=== PATIENT | female | born 1935 | race Caucasian/White ===

== ENCOUNTER → 2017-06-16 11:08 | Outpatient (CLI) | payer MEDICARE, BC, SELFPAY ==
[2017-06-16 12:44] LABS: Anion Gap 12.6 mEq/L (5-15); Blood Urea Nitrogen 21 mg/dL (7-18); Carbon Dioxide 29 mmol/L (21.0-32.0); Chloride 92 mmol/L (98-107); Creatinine,Serum 1.11 mg/dL (0.55-1.02); Estimated Glomerular Filt Rate 47 ml/min (>60); GFR (African American) 57 ML/MIN (>60); Glucose 98 mg/dL (74-106); Potassium 4.6 mmoL/L (3.5-5.1); Sodium 129 mmol/L (136-145)
[2017-06-16 12:58] LABS: Hemoglobin A1C 6.3 % (0.0-7.0)
[2017-06-19 06:31] LABS: Vitamin B12 663 pg/mL (232-1245)
== END ==
PROVIDERS: PCP Family Medicine; Visit Provider Internal Medicine
DX: N18.3 Chronic kidney disease, stage 3 (moderate) (principal); E11.9 Type 2 diabetes mellitus without complications
CPT/HCPCS: 36415; 80048; 82607; 83036

== ENCOUNTER → 2017-07-04 12:55 | Outpatient (CLI) | payer MEDICARE, BC, SELFPAY ==
[2017-07-04 13:29] LABS: Anion Gap 7.7 mEq/L (5-15); Blood Urea Nitrogen 23 mg/dL (7-18); Carbon Dioxide 29 mmol/L (21.0-32.0); Chloride 99 mmol/L (98-107); Creatinine,Serum 1.18 mg/dL (0.55-1.02); Estimated Glomerular Filt Rate 44 ml/min (>60); GFR (African American) 53 ML/MIN (>60); Glucose 99 mg/dL (74-106); Potassium 4.7 mmoL/L (3.5-5.1); Sodium 131 mmol/L (136-145)
== END ==
PROVIDERS: Visit Provider Internal Medicine
DX: E87.1 Hypo-osmolality and hyponatremia (principal)
CPT/HCPCS: 36415; 80048; 84443

== ENCOUNTER → 2017-07-24 08:31 | Outpatient (CLI) | payer MEDICARE, BC, SELFPAY ==
[2017-07-24 09:15] LABS: Anion Gap 11.4 mEq/L (5-15); Blood Urea Nitrogen 21 mg/dL (7-18); Carbon Dioxide 27 mmol/L (21.0-32.0); Chloride 102 mmol/L (98-107); Creatinine,Serum 1.21 mg/dL (0.55-1.02); Estimated Glomerular Filt Rate 43 ml/min (>60); GFR (African American) 52 ML/MIN (>60); Glucose 87 mg/dL (74-106); Potassium 4.4 mmoL/L (3.5-5.1); Sodium 136 mmol/L (136-145); Thyroid Stimulating Hormone 2.87 uIU/ml (0.358-3.740)
== END ==
PROVIDERS: Visit Provider Internal Medicine
DX: E87.1 Hypo-osmolality and hyponatremia (principal)
CPT/HCPCS: 36415; 80048; 84443

== ENCOUNTER → 2018-10-09 14:48 | Outpatient (CLI) | payer MEDICARE, BC, SELFPAY ==
--- NOTE | 2018-10-09 | MR_ITS ---
MR shoulder LT wo con HISTORY:Posttraumatic pain of the left shoulder, severe pain with lifting arm, limited range of motion ITS.REASON: DELTOID TENDONITIS OF LEFT SHOULDER, TRAUMA, ACUTE PAIN LT S ORDERING PHYSICIAN: Karime Martinez MD PATIENT AGE: 83 years Comparison: None TECHNIQUE: Standard multiplanar multiecho sequences are performed without contrast. FINDINGS: There are no radiographs available for comparison. There is extensive abnormal signal intensity involving the humeral head and proximal humeral shaft. Has the patient had prior surgery to the proximal humerus?. There is a curvilinear area of decreased T1 and T2 signal involving the humeral head in the subcortical region suspicious for an area of avascular necrosis. There is acromioclavicular arthropathy along with spurring along the inferior aspect of the acromion with subacromial stenosis. Full-thickness tear involving the distal aspect of the supraspinatus tendon. There may be some intact fibers anteriorly. There is diffuse edema of the supraspinatus tendon consistent with tendinopathy/tendinosis. The infraspinatus tendon appears intact as does the subscapularis and teres minor tendon. There is some subcortical edema of the glenoid anteriorly and inferiorly. No obvious labral tear. There is a medium sized shoulder joint effusion. The bicipital tendon is in place with a mild amount of fluid in the bicipital tendon sheath. There is diffuse bone marrow edema involving the head and neck of the humerus with a fairly well-circumscribed intramedullary longitudinal area of decreased T1 and increased T2 signal in the proximal humerus. Subacromial fluid is noted as well as fluid deep to the deltoid. IMPRESSION: 1. Full-thickness tear involves the distal aspect of the supraspinatus tendon. There may be a few fibers intact anteriorly. There is moderate tendinopathy/tendinosis of the supraspinatus tendon 2. Acromioclavicular arthropathy with subacromial stenosis. Subacromial and subdeltoid fluid is present along with shoulder joint effusion. 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 4. Abnormal signal intensity of the humeral head and proximal humeral shaft could be due to bone marrow contusion. Postsurgical change also a consideration. Radiographic correlation may be of further value if there is no prior history available
== END ==
PROVIDERS: PCP Emergency Medicine; Visit Provider Emergency Medicine
DX: M75.82 Other shoulder lesions, left shoulder (principal); M25.512 Pain in left shoulder; T14.90XA Injury, unspecified, initial encounter
CPT/HCPCS: 73221

== ENCOUNTER → 2018-10-21 13:52 | Outpatient (CLI) | payer MEDICARE, BC, SELFPAY ==
--- NOTE | 2018-10-21 13:58 | XR_ITS ---
XR shoulder LT min 2V HISTORY: Pain with limited range of motion ITS.REASON: left shoulder pain ORDERING PHYSICIAN: Becca Park MD PATIENT AGE: 83 years Comparison: 10/09/2018 FINDINGS: No fracture or dislocation. There are mild hypertrophic changes of the acromioclavicular joint and mild degenerative changes in the glenohumeral joint. No lytic or blastic changes. The MRI showed diffuse increased T2 signal in the humeral head and proximal humerus which may be due to posttraumatic changes or bone marrow edema. No definite lytic change and no postsurgical changes apparent. IMPRESSION: Mild degenerative changes otherwise negative
== END ==
PROVIDERS: PCP Family Medicine; Visit Provider Orthopaedic Surgery
DX: M25.512 Pain in left shoulder (principal)
CPT/HCPCS: 73030

== ENCOUNTER 2018-11-21 14:00 | Outpatient (RCR) | payer MEDICARE, BC, SELFPAY ==
--- NOTE | 2018-10-24 14:27 | HMH.PTOPEV ---
PT Outpatient Evaluation Rehab PT Outpatient Evaluation Start: 10/24/18 13:38 Freq: Status: Active Protocol: Document 10/24/18 13:38 PDESEROUX (Rec: 10/24/18 14:27 PDESEROUX [id number]) Electronically Signed By Griffin Lawson, SJ 10/24/18 13:38 Outpatient Therapy Subjective History Subjective History Pt. is a 83 year old female who presents to outpatient PT for complaints of chronic and traumatic L shoulder pain after slipping on ice and falling on her L arm 3 months ago. Pt. reports not going to the hospital after that fall, and stated symptom relief after 3 wks. Pt . then reported falling a second time 1 month ago while descending her porch stairs and also landing on her L arm in her yard. Pt. did report going to the hospital after her second fall. Recent diagnostic imaging positive for a L shoulder RC tear and lack of blood supply per pt. report. Pt. also reports her Ortho. Surgeon did now want to do surgery d/t secondary complications of diabetes. Pt. RTMD 11/25/18. PMH includes type II diabetes, R knee arthroscopic surgery, and lumbar discectomy. Pt. reported being prescribed Meloxicam for current pathology, and states it does provide symptom relief. Chief Complaint Pain,Catches/Locks Symptom Type Ache,Sharp Symptoms Relieved By Rest/Positioning,Prescription Meds Symptoms Aggravated By Physical Activity,Lifting Prior Functional Limitations None Current Functional Limitations Reaching,Lifting,Housework, Dressing,Driving,Sleeping, Recreation Activity Symptom Description Activity Dependent Level of pain today (0-10) 0 Pain scale - at its best (0-10) 0 Pain scale - at its worst (0-10) 6 Shoulder/Elbow Eval Shoulder Objective Measurements Palpation Tenderness tenderness shoulder exam standard left tenderness over the SA bursa german
== END 2018-11-21 14:05 | disposition home or self-care (01) ==
LOC: PT 14:00
PROVIDERS: Visit Provider Orthopaedic Surgery
DX: M25.512 Pain in left shoulder (principal); M75.102 Unspecified rotator cuff tear or rupture of left shoulder, not specified as traumatic
CPT/HCPCS: 97010; 97014; 97033; 97110; 97140; 97163; G0283

== ENCOUNTER → 2019-01-03 16:03 | Outpatient (CLI) | payer MEDICARE, BC, SELFPAY ==
--- NOTE | 2019-01-03 16:07 | MR_ITS ---
PROCEDURE: MR LUMBAR SPINE WO CON CLINICAL INDICATION: LEFT LUMBAR RADICULOPATHY Low back pain, left leg pain and numbness COMPARISON: No exams were available for comparison TECHNIQUE: Standard multiplanar multiecho sequences are performed without contrast. 3-D MIP and myelographic images are also rendered and reviewed FINDINGS: Normal alignment. The spinal cord ends at the L1 level. T12-L1: Mild degenerative disc disease. T12-L1: Minimal bulging disc. L1-L2: Degenerate disc disease with bulging disc with moderate facet and ligamentum hypertrophy with minimal broad-based left paracentral disc protrusion with severe left lateral recess narrowing and moderate right lateral recess narrowing. There is severe left-sided and moderate right-sided foraminal narrowing at this level. There is transverse narrowing of the canal L2-L3: Degenerate disc disease with bulging disc and minimal right paracentral disc protrusion with severe right lateral recess narrowing, severe right foraminal narrowing, moderate left lateral recess and foraminal narrowing. Transverse narrowing of the canal. There is a small right paracentral disc herniation with inferior extrusion. The extruded disc extends inferiorly for length of 1 cm. The disc is causing lateral recess narrowing and canal stenosis. The disc abuts the cauda equina on the right. The periphery of this disc shows isointense T1 and T2 signal suggesting ossification. L3-L4: Degenerative disc disease with bulging disc/disc osteophyte complex with moderate to severe facet and ligamentum hypertrophy with severe bilateral foraminal narrowing left greater than right. There is transverse narrowing of the canal. There is an the a small left paracentral disc protrusion versus disc osteophyte complex L4-5: Degenerative disc disease with bulging disc/disc osteophyte complex with severe facet and ligamentum hypertrophy with canal stenosis and severe bilateral lateral recess and foraminal narrowing. L5-S1: Degenerate disc disease. IMPRESSION: Abnormal MRI of the lumbar spine. There is multilevel degenerative disc disease with bulging disc, disc protrusions, disc herniation at L2-L3 with inferior extrusion of the disc, canal stenosis, lateral recess and foraminal narrowing includin. L1-L2: Degenerate disc disease with bulging disc with moderate facet and ligamentum hypertrophy with minimal broad-based left paracentral disc protrusion with severe left lateral recess narrowing and moderate right lateral recess narrowing. There is severe left-sided and moderate right-sided foraminal narrowing at this level. There is transverse narrowing of the canal 2. L2-L3: Degenerate disc disease with bulging disc and minimal right paracentral disc protrusion with severe right lateral recess narrowing, severe right foraminal narrowing, moderate left lateral recess and foraminal narrowing. Transverse narrowing of the canal. There is a small right paracentral disc herniation with inferior extrusion. The extruded disc extends inferiorly for length of 1 cm. The disc is causing lateral recess narrowing and canal stenosis. The disc abuts the cauda equina on the right. The periphery of this disc shows isointense T1 and T2 signal suggesting ossification. 3. L3-L4: Degenerative disc disease with bulging disc/disc osteophyte complex with moderate to severe facet and ligamentum hypertrophy with severe bilateral foraminal narrowing left greater than right. There is transverse narrowing of the canal. There is an the a small left paracentral disc protrusion versus disc osteophyte complex 4. L4-5: Degenerative disc disease with bulging disc/disc osteophyte complex with severe facet and ligamentum hypertrophy with canal stenosis and severe bilater
== END ==
PROVIDERS: PCP Emergency Medicine; Visit Provider Family Medicine
DX: M54.16 Radiculopathy, lumbar region (principal)
CPT/HCPCS: 72148; 76376

== ENCOUNTER 2019-01-16 11:00 | Outpatient (RCR) | payer MEDICARE, BC, SELFPAY ==
--- NOTE | 2019-01-07 15:07 | HMH.PTOPEV ---
PT Outpatient Evaluation Rehab PT Outpatient Evaluation Start: 01/07/19 13:05 Freq: Status: Active Protocol: Document 01/07/19 14:31 PHOASHLEY (Rec: 01/07/19 15:06 PHORNE [id number]) Electronically Signed By Zeb Piña, PT 01/07/19 14:31 Outpatient Therapy Subjective History Subjective History Pt is 83 yowf who presents with c/o pain in the low back and into the left LE to the knee distally since 12/18/18. She states, I sat on my toilet seat and it sometimes slides, when it did I got a pain in my left thigh that hasn't went away since then until today. She had MRI performed which showed multiple levels of disc bulges throughout the lumbar spine with DDD and stenosis. She reports hx of a discectomy 50 yrs ago and DM-II. Chief Complaint Pain Symptom Type Ache Symptoms Relieved By Nothing Symptoms Aggravated By Supine Prior Functional Limitations None Current Functional Limitations Sleeping Symptom Description Intermittent Level of pain today (0-10) 0 Pain scale - at its worst (0-10) 10 Lumbopelvic Eval Palapation tenderness bilateral lumbar spinal tenderness Yes Accessory Movement L-spine Vertebrae Accessory Movements Central P/A Fleischmanns that Elicit Symptoms L2 bilateral L3 bilateral L4 bilateral L5 bilateral S1 bilateral Range of Motion Lumbar Spine Active Flexion Range of 0-60 Motion (degrees) Lumbar Spine Active Extension Range of 0-10 Motion (degrees) Left Lumbar Spine Lateral Flexion Active 0-15 Range of Motion (degrees) Right Lumbar Spine Lateral Flexion 0-15 Active Range of Motion (degrees) Manual Muscle Test Bilateral Knee Extension Strength Grade 5 Normal Knee Flexion Strength Grade 5 Normal Hip Flexion Strength Grade 4 Good Hip Abduction Strength Grade 4 Good Extensor Hallucis Longus Strength Grade 5 Normal Ankle Dorsiflexion Strength Grade 5 Normal Gastronemius/Soleus Strength Grade 5 Normal DTR Rt Patellar 2+ Lt Patellar 2+ Rt Gastroc/Soleus 2+ Lt Gastroc/Soleus 2+ Special Tests Hip Scouring (Quadrant) Test Negativ
== END 2019-01-16 11:05 | disposition home or self-care (01) ==
LOC: PT 11:00
PROVIDERS: PCP Emergency Medicine; Visit Provider Family Medicine
DX: M54.16 Radiculopathy, lumbar region (principal)
CPT/HCPCS: 97010; 97014; 97035; 97110; 97163; G0283

== ENCOUNTER → 2019-03-05 11:05 | Outpatient (CLI) | payer MEDICARE, BC, SELFPAY ==
[2019-03-05 11:11] LABS: Microscopic, Urine URINE MICROSCOPIC (MICROSCOPIC)
[2019-03-05 11:39] LABS: Basophils # 0.1 K/mm3 (0-0.2); Basophils % 1.1 % (0.1-2.0); Eosinophils # 0.1 K/mm3 (0.0-0.4); Eosinophils % 1.9 % (0.1-12.0); Lymphocytes # 1.4 K/mm3 (0.7-4.5); Lymphocytes % 27.3 % (10-50); Mean Corpuscular HGB Conc 32.5 g/dL (31.8-35.4); Mean Corpuscular Hemoglobin 28.1 pg (27.0-31.2); Mean Corpuscular Volume 86.6 fl (81-99); Mean Platelet Volume 7.5 fl (7.4-10.4); Monocytes # 0.4 K/mm3 (0.1-1.0); Monocytes % 6.6 % (1.7-9.3); Neutrophils # 3.3 K/mm3 (1.8-7.8); Neutrophils % 63.1 % (37.0-80.0); Platelet Count 328 K/mm3 (142-424); Red Blood Count 3.92 M/mm3 (4.20-5.40); Red Cell Distribution Width 14.7 % (11.5-17.5); White Blood Count 5.3 K/mm3 (4.8-10.8)
[2019-03-05 12:19] LABS: Appearance,Urine CLEAR (Clear); Bilirubin,Urine Negative (Negative); Blood, Urine Negative (Negative); Color,Urine YELLOW (Yellow); Glucose,Urine (UA) Negative (Negative); Ketones,Urine Negative (Negative); Leukocyte Esterase,Urine TRACE (Negative); Nitrate,Urine Negative (Negative); Protein,Urine Negative (Negative); Urobilinogen,Urine 0.2 EU/dl (0.2)
[2019-03-05 12:26] LABS: Bacteria,Urine Trace /lpf; Squamous Epithelial Cell,Urine Occasional #/hpf (0-5); WBC,Urine Occasional #/hpf (0-3)
[2019-03-05 13:00] LABS: Alanine Aminotransferase 14 U/L (12-78); Albumin Level 3.6 gm/dL (3.4-5.0); Albumin/Globulin Ratio 1.4 (1.1-1.8); Alkaline Phosphatase 60 U/L (46-116); Anion Gap 11.6 mEq/L (5-15); Aspartate Amino Transferase 10 U/L (15-37); Bilirubin,Total 0.4 mg/dL (0.2-1.0); Blood Urea Nitrogen 21 mg/dL (7-18); Calcium 9.3 mg/dL (8.5-10.1); Carbon Dioxide 26 mmol/L (21.0-32.0); Chloride 101 mmol/L (98-107); Cholesterol 172 mg/dL (140-200); Creatinine,Serum 1.06 mg/dL (0.55-1.02); Estimated Glomerular Filt Rate 50 ml/min (>60); Free T4 (Free Thyroxine) 1.21 ng/dl (0.76-1.46); GFR (African American) 60 ML/MIN (>60); Globulin 2.5 gm/dl (1.3-3.2); Glucose 93 mg/dL (74-106); HDL Cholesterol 87 mg/dL (29-89); LDL Cholesterol 76 mg/dL (0-130); Potassium 4.6 mmoL/L (3.5-5.1); Sodium 134 mmol/L (136-145); Total Protein,Serum 6.1 gm/dL (6.4-8.2); Triglycerides 47 mg/dL (30-200); VLDL Cholesterol 9 mg/dL (0-40)
[2019-03-05 13:04] LABS: Hemoglobin A1C 6.3 % (0.0-7.0)
[2019-03-06 10:14] LABS: Microalbumin, Urine 3.9 ug/mL (Not Estab.)
[2019-03-06 10:56] LABS: Vitamin B12 818 pg/mL (232-1245)
== END ==
PROVIDERS: Visit Provider Internal Medicine
DX: E11.22 Type 2 diabetes mellitus with diabetic chronic kidney disease (principal); N18.3 Chronic kidney disease, stage 3 (moderate); E53.8 Deficiency of other specified B group vitamins; E55.9 Vitamin D deficiency, unspecified; E78.00 Pure hypercholesterolemia, unspecified
CPT/HCPCS: 36415; 80053; 80061; 81001; 82043; 82570; 82607; 82652; 83036; 84439; 84443; 85025

== ENCOUNTER → 2019-03-20 11:08 | Outpatient (CLI) | payer MEDICARE, BC, SELFPAY ==
--- NOTE | 2019-03-20 | CA_ITS ---
APPROVED REPORT Exam: Pharmacologic Technologist: stewart ugarte, Ht: 5 ft 6 in Wt: 166 lbs BSA: 1.85 m2 HR: 67 bpm BP: 163/67 mmHg Rhythm: NSR, LBBB Indications: Abn EKG< LBBB, SOB Medical History Medications: Amlodipine,,,,, Omeprazole,,,,, Metformin,,,,, Vitamin B12,,,,, Vitamin D3,,,,, MeLOXICAM,,,,, Ezetimbe,,,,, Allergies: No known drug allergies Cardiac Risk Factors: HTN, Diabetes (insulin) Stress Test Details Test: LEXISCAN HR Resting HR: 75 bpm Max Heart Rate (APMHR): 138 bpm Max HR Achieved: 101 bpm Target HR (85% APMHR): 117 bpm % of APMHR: 73 Recovery HR: 85 bpm BP Resting BP: 163/67 mmHg Max BP: 163/67 mmHg Recovery BP: 153.0/73.0 mmHg ECG Resting ECG: NSR, LBBB Clinical Reason for Termination: Completed Protocol Exercise duration: 04:06 min Highest Stage Achieved: Exercise capacity: 1.0 METs Stress ECG Conclusion Patient had no symptoms with rare PVC. There was < 1.5mm ST Segment Changes. Non-Diagnostic Test Summary REST 08:04 . . 75 . 163/ 67 . . Stage 1 01:00 . . 99 . . . . Stage 2 01:00 . . 93 . 141/ 74 . . Stage 3 01:00 . . 93 . 159/ 67 . . Stage 4 01:00 . . 86 . 157/ 73 . . Stage 4 01:06 . . 86 . 157/ 73 . Stop exercise at 04:06 RECOVERY 01:00 . . 89 . 153/ 73 . . RECOVERY 02:00 . . 85 . 152/ 71 . . RECOVERY 03:00 . . 84 . 155/ 68 . . RECOVERY 03:12 . . 81 . 155/ 68 . . Electronically signed by : Avelino Acosta, 03/20/2019 15:24:19
--- NOTE | 2019-03-20 11:15 | NM_ITS ---
APPROVED REPORT Exam: Nuclear Stress Test Indication: ABN EKG, LBBB, D.M., SOB, SYNCOPE Patient Location: Outpatient Stress Tech: Julia Woods CT Tech:Brianda Kim, ARRT RT(R)(N) Ht: 5 ft 6 in Wt: 166 lbs Bra Size: 42D HR: 75 bpm BP: 163/67 mmHg BSA: 1.85 m2 BMI: 26.7 History: ABN EKG, LBBB, D.M., SOB, SYNCOPE Procedure: Patient received a 0.4 mg of intravenous Lexiscan, resting heart rate 75 bpm, resting blood pressure 163/67 mmHg, with Lexiscan maximum heart rate achived was 101 bpm which is Less than 85 % of the maximum predicted heart rate and blood pressure was 163/67 mmHg. With Lexiscan, patient denied any complaint of chest pain. Electrocardiogram Resting electro cardia Lancing shows sinus rhythm left bundle branch block, with Lexiscan there is less than 1.[address] segment depression noted from the baseline EKG. The EKG portion of the Lexiscan Myoview is nondiagnostic. Cardiac Stress and Resting SPECT Images: Cardiac Stress and Resting SPECT images were obtained using technetium 99m Myoview 30.1 mCi stress and 9.97 mCi at rest. Gated SPECT for analysis of segmental wall motion and calculation of the ejection fraction also done. Cardiac stress and rest SPECT images show fixed defect involving the anteroseptal wall with normal contractility and the gated SPECT is likely secondary to left bundle branch block and intraventricular conduction delay. No reversible ischemia seen. Computer derived ejection fraction is 65% with no regional wall motion abnormality, right ventricle is normal size and contractility. Conclusion: 1. The EKG portion of the Lexiscan Myoview is nondiagnostic 2. No scintigraphic evidence of reversible ischemia seen, fixed defect seen anteroseptally with normal contractility on gated SPECT is likely secondary to presence of left bundle branch block and intraventricular conduction delay. Computer derived ejection fraction is 65% with no regional wall motion abnormality, there is abnormal septal motion. Right ventricle is normal size and contractility. 3. Likely normal Lexiscan Myoview study. Electronically signed by : Avelino Acosta, 03/20/2019 15:23:54
--- NOTE | 2019-03-20 14:15 | HMH.ITSHM ---
Current Home Medications as stated by this patient Tasneem Perales or self pay representative. [] piolitazone metformin amlodipine ezetimibe omeprazole
== END ==
PROVIDERS: PCP Family Medicine; Visit Provider Internal Medicine
DX: R94.31 Abnormal electrocardiogram [ECG] [EKG] (principal); I44.7 Left bundle-branch block, unspecified
CPT/HCPCS: 78452; 93017; A9502; J2785

== ENCOUNTER → 2023-02-15 17:00 | Outpatient (CLI) | payer MEDICARE, BC, SELFPAY ==
--- NOTE | 2023-02-15 17:08 | XR_ITS ---
PROCEDURE INFORMATION: Exam: XR Left Hip Exam date and time: 02/15/2023 5:12 PM Age: 87 years old Clinical indication: Hip pain; Left hip; Additional info: Injury of left hip TECHNIQUE: Imaging protocol: Radiologic exam of the left hip. Views: 2 or 3 views hip with pelvis when performed. COMPARISON: MR LUMBAR SPINE WO CON 01/03/2019 4:36 PM FINDINGS: Bones/joints: No evidence of acute fracture or malalignment. Hypertrophic degenerative changes in joint space narrowing in the left. Pubic symphysis and bilateral sacroiliac joints are congruent. Limited visualization of the sacrum due to poorly mineralized bones and body habitus. Soft tissues: Unremarkable. IMPRESSION: 1. No evidence of acute osseous abnormality in the left hip. 2. Left hip degenerative osteoarthrosis.
--- NOTE | 2023-02-15 17:10 | XR_ITS ---
PROCEDURE INFORMATION: Exam: XR Left Femur Exam date and time: 02/15/2023 5:12 PM Age: 87 years old Clinical indication: Pain; Thigh; Left; Additional info: Injury to left hip and femur TECHNIQUE: Imaging protocol: Radiologic exam of the left femur. Views: 2 views. COMPARISON: No relevant prior studies available. FINDINGS: Bones/joints: No evidence of acute fracture or malalignment. Soft tissues: Unremarkable. IMPRESSION: No evidence of acute osseous abnormality in the left femur.
== END ==
PROVIDERS: PCP Family Medicine; Visit Provider Physician Assistant
DX: S79.912A Unspecified injury of left hip, initial encounter (principal); Y99.9 Unspecified external cause status
CPT/HCPCS: 73502; 73552

== ENCOUNTER → 2023-03-08 14:24 | Outpatient (CLI) | payer MEDICARE, BC, SELFPAY ==
--- NOTE | 2023-03-08 14:27 | CT_ITS ---
FINAL REPORT CLINICAL HISTORY: LT HIP PAIN, recent fall FINDINGS: Axial CT images of the left hip were obtained without contrast. Sagittal, coronal and 3D reformatted images were also obtained and reviewed. There is no evidence of acute fracture or dislocation. Severe degenerative changes are noted of the left hip. The musculature is intact. No soft tissue mass or abnormal fluid collection is identified. IMPRESSION: No fracture or acute bony abnormality identified. Severe degenerative changes. Authenticated and [facility]
== END ==
PROVIDERS: PCP Family Medicine; Visit Provider Family Medicine
DX: M25.552 Pain in left hip (principal)
CPT/HCPCS: 73700

== ENCOUNTER 2023-03-27 15:00 | Outpatient (RCR) | payer MEDICARE, BC, SELFPAY | END 2023-03-27 16:00 | disposition home or self-care (01) | LOC: PT 15:00 | PROVIDERS: PCP Family Medicine; Visit Provider Internal Medicine | DX: M25.552 Pain in left hip (principal); M54.50 Low back pain, unspecified | CPT/HCPCS: 95992; 97010; 97014; 97035; 97110; 97163; G0283 ==

== ENCOUNTER → 2023-04-02 09:17 | Outpatient (CLI) | payer MEDICARE, BC, SELFPAY ==
--- NOTE | 2023-04-02 09:25 | MR_ITS ---
FINAL REPORT TECHNIQUE: Multiplanar MR without gadolinium enhancement CLINICAL HISTORY: .LOW BACK PAIN INTO LEFT LEG, RECENT FALL COMPARISON: None FINDINGS: Sagittal images show normal vertebral height. Alignment is normal. Marrow signal pattern is unremarkable. L1-2: A moderate annular bulge is present. Ligamentum flavum hypertrophy is present as well, and there is moderate canal stenosis and bilateral neural foraminal narrowing. L2-3: A moderate annular bulge is present, along with a moderate central disc protrusion with inferior extension. There is moderate canal stenosis and moderate bilateral neuroforaminal narrowing. L3-4: A moderate annular bulge is present, with facet osteoarthropathy. There is moderate canal stenosis and moderate bilateral neural foraminal narrowing. L4-5: A large annular bulge is present, with facet osteoarthropathy and ligamentum flavum hypertrophy. There is severe canal stenosis and severe bilateral neural foraminal narrowing. L5-S1: No evidence of canal stenosis or neuroforaminal narrowing is present. IMPRESSION: There is advanced to multifocal degenerative change in the lumbar spine, with canal stenosis and neuroforaminal narrowing at multiple levels, most severe at the L4-5 level. Reviewed, Interpreted and Dictated by Amarilis Gordon MD Transcribed by Barb Crespo Authenticated and [facility]
== END ==
PROVIDERS: PCP Family Medicine; Visit Provider Internal Medicine
DX: M54.50 Low back pain, unspecified (principal); M25.552 Pain in left hip
CPT/HCPCS: 72148; 76376

== ENCOUNTER 2023-05-25 14:19 | Outpatient (CLI) | payer MEDICARE, BC, SELFPAY ==
--- NOTE | 2023-05-25 14:25 | MR_ITS ---
FINAL REPORT CLINICAL HISTORY: LEFT HIP PAIN COMPARISON: CT of the left hip 03/08/2023 FINDINGS: Multiplanar MR imaging of the left hip was performed without contrast. There is severe degenerative change in the left hip, which has markedly progressed since the prior CT of 03/08/2023. There is interval worsening and remodeling of the acetabulum and flattening of the femoral head. Bone marrow edema is present in the left acetabulum and the left femoral head and neck. A moderate joint effusion is present as well as marked abnormal soft tissue surrounding the femoral head and neck. IMPRESSION: Severe degenerative change in the left hip, markedly progressed since January 2023. There is marked interval worsening and remodeling of the acetabulum and severe flattening of the femoral head. Associated bone marrow edema is present along with a moderate joint effusion and marked abnormal soft tissue surrounding the femoral head and neck. This likely represents either severe rapidly progressive degenerative change or a septic arthritis. Reviewed, Interpreted and Dictated by Isidro Crawford III, MD Transcribed by Barb Crespo Authenticated and [facility]
== END 2023-05-25 23:59 ==
LOC: RAD 14:19
PROVIDERS: PCP Family Medicine; Visit Provider Neurological Surgery
DX: M25.552 Pain in left hip (principal); M48.062 Spinal stenosis, lumbar region with neurogenic claudication; M79.605 Pain in left leg
CPT/HCPCS: 73721

== ENCOUNTER 2023-06-06 12:29 | Outpatient (CLI) | payer MEDICARE, BC, SELFPAY ==
[2023-06-06 12:50] LABS: Microscopic, Urine URINE MICROSCOPIC (MICROSCOPIC)
[2023-06-06 13:17] LABS: Basophils # 0.1 K/mm3 (0-0.2); Basophils % 0.6 % (0.1-2.0); Eosinophils % 0.4 % (0.1-12.0); Hematocrit 35.5 % (37.0-47.0); Hemoglobin 11.7 g/dL (12.2-16.2); Lymphocytes # 1.1 K/mm3 (0.7-4.5); Lymphocytes % 12.8 % (10-50); Mean Corpuscular HGB Conc 33.1 g/dL (31.8-35.4); Mean Corpuscular Hemoglobin 28.3 pg (27.0-31.2); Mean Corpuscular Volume 85.6 fl (81-99); Mean Platelet Volume 7.1 fl (7.4-10.4); Monocytes # 0.6 K/mm3 (0.1-1.0); Monocytes % 7.1 % (1.7-9.3); Neutrophils # 6.8 K/mm3 (1.8-7.8); Neutrophils % 79.1 % (37.0-80.0); Platelet Count 400 K/mm3 (142-424); Red Blood Count 4.15 M/mm3 (4.20-5.40); Red Cell Distribution Width 15.1 % (11.5-17.5); White Blood Count 8.6 K/mm3 (4.8-10.8)
[2023-06-06 13:26] LABS: Appearance,Urine CLEAR (Clear); Bilirubin,Urine Negative (Negative); Blood, Urine Negative (Negative); Color,Urine YELLOW (Yellow); Glucose,Urine (UA) Negative (Negative); Ketones,Urine Negative (Negative); Leukocyte Esterase,Urine Negative (Negative); Nitrate,Urine Negative (Negative); Protein,Urine Negative (Negative); Specific Gravity, Urine 1.015 (1.005-1.030); Urobilinogen,Urine 0.2 EU/dl (0.2)
[2023-06-06 13:34] LABS: Creatinine,Urine Random 93 mg/dL (Not Estab.)
[2023-06-06 13:39] LABS: Microalbumin/Creatinine Ratio 9.6
[2023-06-06 13:45] LABS: Alanine Aminotransferase 15 U/L (12-78); Albumin/Globulin Ratio 1.7 (1.1-1.8); Alkaline Phosphatase 116 U/L (38-126); Anion Gap 10.9 mEq/L (5-15); Aspartate Amino Transferase 23 U/L (14-36); Bilirubin,Total 0.6 mg/dl (0.2-1.3); Blood Urea Nitrogen 20 mg/dl (7-17); Calcium 9.6 mg/dl (8.4-10.2); Carbon Dioxide 27 mmol/L (22.0-30.0); Chloride 95 mmol/L (98-107); Cholesterol 163 mg/dl (140-200); Estimated Glomerular Filt Rate 59 ml/min (>60); GFR (African American) 72 ML/MIN (>60); Globulin 2.4 g/dL (1.3-3.2); Glucose 96 mg/dl (74-100); HDL Cholesterol 81 mg/dl (40-60); Potassium 4.9 mmoL/L (3.5-5.1); Sodium 128 mmol/L (136-145); Total Protein,Serum 6.4 g/dl (6.3-8.2); Triglycerides 47 mg/dl (30-150); VLDL Cholesterol 9 mg/dL (0-40)
[2023-06-06 13:55] LABS: Direct LDL Cholesterol 65.28 mg/dL (100-129)
[2023-06-06 14:02] LABS: 25-OH Vitamin D, Total 57.7 ng/mL (30-100)
[2023-06-06 14:04] LABS: Bacteria,Urine Trace /lpf
[2023-06-06 14:31] LABS: Hemoglobin A1C 5.9 % (4.0-6.0)
[2023-06-06 14:36] LABS: Vitamin B12 478 pg/mL (239-931)
== END 2023-06-06 23:59 ==
LOC: LAB 12:31
PROVIDERS: PCP Internal Medicine; Visit Provider Internal Medicine
DX: E78.00 Pure hypercholesterolemia, unspecified (principal); E55.9 Vitamin D deficiency, unspecified; E11.22 Type 2 diabetes mellitus with diabetic chronic kidney disease; N18.32 Chronic kidney disease, stage 3b; E53.8 Deficiency of other specified B group vitamins; M81.0 Age-related osteoporosis without current pathological fracture
CPT/HCPCS: 36415; 80053; 80061; 81001; 82043; 82306; 82570; 82607; 83036; 84443; 85025

== ENCOUNTER 2023-06-16 12:16 | Observation (INO) | payer MEDICARE, BC, SELFPAY ==
[2023-06-16] VITALS (8 sets, daily range): BP systolic 117–157; BP diastolic 57–74; PULSE 68–83; RESP 16–19; TEMP 36.3–36.9; O2SAT 97–100; BMI 20.2; BMI 21.3
--- NOTE | 2023-06-16 13:09 | PC.NURSE ---
Dr. mary at bs for pt eval
--- NOTE | 2023-06-16 13:17 | PC.NURSE ---
er at bedside
--- NOTE | 2023-06-16 13:23 | CT_ITS ---
PROCEDURE INFORMATION: Exam: CT Pelvis With Contrast; Skeletal Exam date and time: 06/16/2023 1:59 PM Age: 88 years old Clinical indication: Swelling or effusion of joint; Left; Additional info: Left hip fluid collection, septic joint? TECHNIQUE: Imaging protocol: Computed tomography of the pelvis with contrast. Exam focused on the skeleton. Radiation optimization: All CT scans at this facility use at least one of these dose optimization techniques: automated exposure control; mA and/or kV adjustment per patient size (includes targeted exams where dose is matched to clinical indication); or iterative reconstruction. Contrast material: ISOVUE; Contrast volume: 75 ml; Contrast route: IV; COMPARISON: CR XR HIP LT 2-3V W/PELVIS 02/15/2023 5:12 PM FINDINGS: Vasculature: Aortoiliac atherosclerosis. Bones/joints: No acute fracture. Severe left femoroacetabular degenerative joint disease, with osteophytes, degenerative cystic changes, flattening of the left femoral head, and an associated large left hip joint effusion. Consider hip joint aspiration if there is a concern for septic joint. Moderate to severe right femoroacetabular degenerative joint disease. No right hip joint effusion. Moderate bilateral sacroiliac degenerative joint disease. Moderate to severe degenerative changes of the lumbosacral spine. Soft tissues: Unremarkable. IMPRESSION: No acute fracture. Severe left femoroacetabular degenerative joint disease, with osteophytes, degenerative cystic changes, flattening of the left femoral head, and an associated large left hip joint effusion. Consider hip joint aspiration if there is a concern for septic joint.
--- NOTE | 2023-06-16 13:25 | HMH.EDGENADL ---
Discharge Plan Disposition Patient Disposition: Admitted Prescriptions Prescriptions: No Action pioglitazone-metformin 15-1,000 mg tablet, ER multiphase 24 hr 1 tab PO DAILY amlodipine-atorvastatin 5-40 mg tablet 1 tab PO DAILY ezetimibe 10 mg tablet 10 mg PO DAILY meloxicam 15 mg tablet 15 mg PO DAILY ranitidine HCl 300 mg capsule 300 mg PO DAILY glucosamine-chondroitin [Osteo Bi-Flex] 250-200 mg tablet 2 tab PO QPC meclizine 25 mg tablet 25 mg PO BID PRN (Reason: dizziness) Qty: 60 0RF Referrals Follow up/Referrals: Betsy YEE [Primary Care Provider] - See instructions Clinical Impressions Clinical Impression: Effusion of hip joint, left, Arthritis, hip, Acute hyponatremia Instructions Patient Instructions: DI for Altered Mental Status Discharge ED Provider: Edwin Patino General Adult HPI General Chief complaint: Altered Mental Status Stated complaint: hallucinations, pain in L leg Time Seen by Provider: 06/16/23 13:08 Mode of Arrival: Ambulatory Source of Information: Patient Limitations: No Limitations Description of Symptoms (Recalled from ER Triage Doc. by RN): pt states she fell 01/23/23 and hurt her L hip, she has had 2 MRI, xrays, CT, and 2 steroid shots since the fall, she has started having increased confusion off and on since receivinng the first steroid injection mid May, the 2nd steroid injection was given 2 weeks ago, family reports the pt sleeping more, also reports confusion is worst in the morning and best in the evening, pt states she occasionally sees aliens running around in her backyard, last seen a few days ago History of Present Illness HPI narrative: Patient is an 88-year-old female present today with severe left hip pain states that she has had an injury on January 23 where she hurt her left hip has had numerous MRIs and CAT scans and no definitive diagnosis remainder but she is gotten to the point where she cannot move that she is in severe pain. Denies any fevers or chills. Recently had an MRI which showed an inflammatory change in the bone marrow as well as an effusion in that left hip concerning for possible severe degenerative disease versus septic joint. She is here with worsening of her symptoms today. Additionally has had a little bit of delirium associated with recent steroid injections. Currently she is not experiencing any of those symptoms. Related Data Home Medications Medication Instructions Recorded Confirmed amlodipine 5 mg-atorvastatin 40 mg 1 tab PO DAILY 10/21/18 05/10/20 tablet ezetimibe 10 mg tablet 10 mg PO DAILY 10/21/18 05/10/20 glucosamine-chondroitin 250 mg-200 2 tab PO QPC 10/21/18 05/10/20 mg tablet (Osteo Bi-Flex) meloxicam 15 mg tablet 15 mg PO DAILY 10/21/18 05/10/20 pioglitazone 15 mg-metformin ER 1 tab PO DAILY 10/21/18 05/10/20 1,000 mg tablet,extend release 24hr mp ranitidine HCl 300 mg capsule 300 mg PO DAILY 10/21/18 05/10/20 Previous Rx's Medication Instructions Recorded meclizine 25 mg tablet 25 mg PO BID PRN dizziness #60 tabs 05/10/20 Allergies Allergy/AdvReac Type Severity Reaction Status Date / Time No Known Allergies Allergy Verified 05/10/20 14:43 [facility] Disclaimer: The information contained in this section may have been updated after the patient was seen, as this information can be updated by other users. Social History Smoking Status: Never smoker alcohol intake: never substance use type: denies use current occupational status: previously employed and retired Travel in the last 8 weeks: None household members: other housing: house ROS Obtained: Yes All systems reviewed & no additional complaints except as documented Physical Exam General General appearance: alert Respiratory Respiratory exam: Present normal lung sounds bilaterally Cardiovascular Cardiovascular exam: Present regular rate Extremities Exam Extremities exam: Present other (Severe left hip pain with any type of movement flexion extension internal and external rotation no overlying skin abnormality) Neurological Exam Neurological exam: Present alert and oriented X3 Medical Decision Making Adama Inquiry Pt receiving controlled substance: No Vital Signs: 06/16/23 12:18 Temperature 97.6 F Temperature Source Oral Pulse Rate [Left Radial] 83 Respiratory Rate 18 Blood Pressure [Right Arm] 151/71 H Blood Pressure Mean [Right Arm] 97 Blood Pressure Source [Right Arm] Automatic Cuff Blood Pressure Position [Right Arm] Sitting 02 Sat by Pulse Oximetry 98 Oxygen Delivery Method Room Air Lab Data Lab results reviewed: Yes I reviewed the patient's lab results. Lab Results 06/16/23 13:00: WBC 6.8, RBC 3.95 L, Hgb 11.2 L, Hct 32.7 L, MCV 82.9, MCH 28.4, MCHC 34.2, RDW 15.1, Plt Count 475 H, MPV 8.2, Neut % (Auto) 77.5, Lymph % (Auto) 14.0, Burnett % (Auto) 7.6, Eos % (Auto) 0.7, Baso % (Auto) 0.2, Neut # (Auto) 5.3, Lymph # (Auto) 1.0, Burnett # (Auto) 0.5, Eos # (Auto) 0.1, Baso # (Auto) 0.0, ESR 20, Sodium 123 L, Potassium 5.8 H, Chloride 93 L, Carbon Dioxide 26, Anion Gap 9.8, BUN 19 H, Creatinine 0.80, Estimated Creat Clear 38, Estimated GFR 68, Est GFR ( Amer) 82, Glucose 152 H, Calcium 8.8, Total Bilirubin 0.9, AST 40 H, ALT 20, Alkaline Phosphatase 70, C-Reactive Protein 7.8 H, Total Protein 6.4, Albumin 3.7, Globulin 2.7, Albumin/Globulin Ratio 1.4 06/16/23 13:50: Lactate 0.9 06/16/23 13:00 06/16/23 13:00 Orders (Tests/Meds): ED MEDICATIONS Generic Name Dose Route Start Last Admin Trade Name Freq PRN Reason Stop Dose Admin Hydrocodone Bitart/Acetaminophen 1 tab 06/16/23 14:52 Hydrocodone/Apap 5/325 Mg Tablet PO 07/16/23 14:51 Q4HP PRN Mild to Moderate Pain (1-6) Heparin Sodium (Porcine) 5,000 unit 06/16/23 21:00 Heparin Sodium 5,000 Unit/Ml Vial SQ 07/16/23 20:59 BID SREEDHAR Discontinued Medications Generic Name Dose Route Start Last Admin Trade Name Freq PRN Reason Stop Dose Admin Lactated Ringer's 500 mls @ 999 mls/hr 06/16/23 13:15 06/16/23 13:31 Lactated Ringer's 1000 Ml Bag IV 06/16/23 13:45 999 mls/hr .Q31M SREEDHAR Administration Iopamidol 75 ml 06/16/23 14:01 06/16/23 14:06 Iopamidol-370 (76%);100ml Bottle IV 06/16/23 14:02 75 ml ONCE ONE Administration Morphine Sulfate 2 mg 06/16/23 13:14 06/16/23 13:30 Morphine 4mg/Ml Syringe IV 06/16/23 13:15 2 mg ONCE ONE Administration Ondansetron HCl 4 mg 06/16/23 13:14 06/16/23 13:30 Ondansetron 4mg/2ml Vial IV 06/16/23 13:15 4 mg ONCE ONE Administration Sodium Chloride 10 ml 06/16/23 14:01 06/16/23 14:06 Sodium Chloride 0.9% 10ml Syr (Rad Only) IV 06/16/23 14:02 10 ml ONCE ONE Administration ORDERS Category Date Time Status CT pelvis w con Stat Cat Scan 06/16/23 13:23 Completed POCUS Point of Care (ER Only) Stat Exams 06/16/23 13:14 Completed CBC w/Auto Diff [Complete Blood Count Auto Diff] Stat Lab 06/16/23 13:00 Completed CMP [Comprehensive Metabolic Panel] Stat Lab 06/16/23 13:00 Completed CRP [C-Reactive Protein] AMLAB Lab 06/17/23 06:00 Ordered CRP [C-Reactive Protein] Stat Lab 06/16/23 13:00 Completed Complete Blood Count Auto Diff AMLAB Lab 06/17/23 06:00 Ordered Comprehensive Metabolic Panel AMLAB Lab 06/17/23 06:00 Ordered ESR [Erythrocyte Sedimentation Rate] Stat Lab 06/16/23 13:00 Completed Lactic Acid Stat Lab 06/16/23 13:50 Completed Magnesium AMLAB Lab 06/17/23 06:00 Ordered Blood Culture Stat Micro 06/16/23 13:52 Received Medical Decision Narrative: 88-year-old female presents today with severe worsening of hip pain which has been relatively chronic. Recent MRI showing significant inflammatory changes in the hip as well as a moderate-sized effusion in the left hip. Will get inflammatory markers blood cultures and evaluate further for possible and factious etiology such as septic joint. I did a limited bedside ultrasound which shows a hip effusion but appears to be hyperechoic and heterogenous suggesting that may be difficult to aspirate. Will get a CT scan of the pelvis with contrast to further evaluate this as it has been several weeks since she has had her MRI. And then I will discuss the case with our orthopedic surgeon. Reassessment at 3:[address] scan performed which I first interpreted also with the radiology read which shows chronic degenerative changes and a large joint effusion. Inflammatory markers not significantly elevated CRP is only 7 ESR is within normal limits. As discussed the case with Dr. Mckeon and we both agree that at this point with the septic arthritis inflammatory markers would be very elevated. Lastly patient's daughter showed up and gave additional information the patient apparently has a referral out to Dr. Bustillos who is a orthopedic oncologist to [facility] and they requested to be transferred. However there is no emergent indication for surgery. Her primary means for being admitted are lack of ability to walk pain control and hyponatremia. My knowledge she does not have a primary malignancy but certainly with hyponatremia that this could be metastatic disease and that is a possibility. Family is aware of this I spoke with Dr. Mckeon and Dr. Shepherd about this whole situation there but he agrees the patient needs to be admitted here for pain control correction of hyponatremia and hopefully outpatient follow-up with Dr. Fernandez or rehab and placement. Family is agreeable to this plan was admitted in stable condition. Procedures Miscellaneous Procedure Procedure Performed: Limited soft tissue ultrasound Indication: Left hip pain Identified structures: Location: Left hip Findings: Several centimeters hip effusion noted on the left hip out of proportion to the right Impression: Left hip effusion heterogenous and not anechoic which is nonspecific Images were saved to permanent archive The study was technically adequate Soft Tissue CPT Codes: CPT Pelvic Wall: [id number] This study was performed by me, and I personally interpreted all images/videos. Based on my clinical judgement, these images were adequate and did necessitate further imaging. Critical Care Critical Care Time Critical Care Time: No
[2023-06-16 13:26] LABS: Basophils % 0.2 % (0.1-2.0); Eosinophils # 0.1 K/mm3 (0.0-0.4); Eosinophils % 0.7 % (0.1-12.0); Hematocrit 32.7 % (37.0-47.0); Hemoglobin 11.2 g/dL (12.2-16.2); Mean Corpuscular HGB Conc 34.2 g/dL (31.8-35.4); Mean Corpuscular Hemoglobin 28.4 pg (27.0-31.2); Mean Corpuscular Volume 82.9 fl (81-99); Mean Platelet Volume 8.2 fl (7.4-10.4); Monocytes # 0.5 K/mm3 (0.1-1.0); Monocytes % 7.6 % (1.7-9.3); Neutrophils # 5.3 K/mm3 (1.8-7.8); Neutrophils % 77.5 % (37.0-80.0); Platelet Count 475 K/mm3 (142-424); Red Blood Count 3.95 M/mm3 (4.20-5.40); Red Cell Distribution Width 15.1 % (11.5-17.5); White Blood Count 6.8 K/mm3 (4.8-10.8)
[2023-06-16 13:27] LABS: Chloride 93 mmol/L (98-107); Potassium 5.8 mmoL/L (3.5-5.1); Sodium 123 mmol/L (136-145)
[2023-06-16 13:29] LABS: Alanine Aminotransferase 20 U/L (12-78); Aspartate Amino Transferase 40 U/L (14-36); Blood Urea Nitrogen 19 mg/dl (7-17); Creatinine Clearance Estimated 38 mL/min (50-200); Estimated Glomerular Filt Rate 68 ml/min (>60); GFR (African American) 82 ML/MIN (>60)
[2023-06-16 13:30] LABS: Albumin Level 3.7 g/dl (3.5-5.0); Albumin/Globulin Ratio 1.4 (1.1-1.8); Alkaline Phosphatase 70 U/L (38-126); Anion Gap 9.8 mEq/L (5-15); Bilirubin,Total 0.9 mg/dl (0.2-1.3); Calcium 8.8 mg/dl (8.4-10.2); Carbon Dioxide 26 mmol/L (22.0-30.0); Globulin 2.7 g/dL (1.3-3.2); Glucose 152 mg/dl (74-100); Total Protein,Serum 6.4 g/dl (6.3-8.2)
[2023-06-16] MEDS: MORPHINE 4MG/ML SYRINGE 2 MG IV (13:30)
[2023-06-16] MEDS: ONDANSETRON 4MG/2ML VIAL 4 MG IV (13:30)
[2023-06-16] MEDS: LACTATED RINGERS 1000ML 500 ML 999 ML IV (13:31)
[2023-06-16 13:35] LABS: C-Reactive Protein 7.8 mg/L (0-4)
--- NOTE | 2023-06-16 13:37 | PC.NURSE ---
lab at bedside to collect blood cultures
--- NOTE | 2023-06-16 13:37 | PC.NURSE ---
provided pt with a warm blanket and pillow
[2023-06-16] MEDS: IOPAMIDOL-370 (76%);100ML BOTTLE 75 ML IV (14:06)
[2023-06-16] MEDS: SODIUM CHLORIDE 0.9% 10ML SYR (RAD ONLY) 10 ML IV (14:06)
[2023-06-16 14:07] LABS: Lactic Acid 0.9 mmol/L (0.7-2.1)
[2023-06-16 14:24] LABS: Erythrocyte Sedimentation Rate 20 mm/hr (0-30)
--- NOTE | 2023-06-16 14:50 | PC.NURSE ---
dr mary speaking with dr moore at this time
--- NOTE | 2023-06-16 14:52 | PC.NURSE ---
house aware of admission.
--- NOTE | 2023-06-16 14:55 | PC.NURSE ---
DR GUO AT BEDSIDE TO UPDATE PT
--- NOTE | 2023-06-16 15:01 | EXP.HP ---
History of Present Illness *Admission Date: 06/16/23 *Reason for visit:: hip pain, confusion *History of present illness: 88-year-old female with history of hypertension, hyperlipidemia, diabetes. Has been having progressive pain in her left hip since January. Gives protracted history of referrals for multiple images, pain treatment for injections, and mixed opinions about her hip pain being related to infection versus arthritis versus tumor. Has yet to get much relief from the pain and has been having more confusion over the past few weeks after steroid injections most acutely this morning. Son expressed concern to his sister that mom was talking out of her head about fictitious events and objects. Came to the ER for further evaluation. Daughter who is with her at bedside reports the patient has been sleeping more, has had some increased confusion, not seeing good relief from previous modalities to address pain and hip. Most recent steroid injection approximately 2 weeks ago. Workup in the ER including CAT scan of hip showed concern for severe arthritis with effusion. Inflammatory markers relatively unremarkable, marginally elevated. Noted to have hyponatremia of 123. Case discussed with orthopedics, recommended admission for treatment of her hyponatremia and evaluation for further management of hip pain. No emergent need for surgery. Medicine consulted for admission and further management. On evaluation, patient continues to complain of left hip pain. Alert and oriented to self and place. Reports pain progresses to the point she has a hard time moving. Denies fever or chest pain. No shortness of breath. No nausea or vomiting. Has had a decreased appetite over the past several months due to pain and is therefore lost a little over 20 pounds. Stable on room air [facility] Disclaimer: The information contained in this section may have been updated after the patient was seen, as this information can be updated by other users. Medical History (Updated 06/16/23 @ 20:59 by Maycol Shepherd MD) DM type 2 (diabetes mellitus, type 2) High cholesterol Hypertension Family History No significant family history Social History Smoking Status: Never smoker alcohol intake: never substance use type: denies use current occupational status: previously employed and retired Travel in the last 8 weeks: None household members: other housing: house Review of Systems Review of Systems Review of systems (narrative): 14 point review of systems performed, pertinent positives and negatives as per [facility] Meds Home Medications and Allergies Home Medications Medication Instructions Recorded Confirmed Type amlodipine 5 mg-atorvastatin 40 mg 1 tab PO DAILY 10/21/18 06/16/23 History tablet ezetimibe 10 mg tablet 10 mg PO DAILY 10/21/18 06/16/23 History glucosamine-chondroitin 250 mg-200 2 tab PO QPC 10/21/18 06/16/23 History mg tablet (Osteo Bi-Flex) meloxicam 15 mg tablet 15 mg PO DAILY 10/21/18 06/16/23 History pioglitazone 15 mg-metformin ER 1 tab PO DAILY 10/21/18 06/16/23 History 1,000 mg tablet,extend release 24hr mp ranitidine HCl 300 mg capsule 300 mg PO DAILY 10/21/18 06/16/23 History meclizine 25 mg tablet 25 mg PO BID PRN dizziness #60 tabs 05/10/20 06/16/23 Rx New Prescriptions to Start Prescriptions: Allergies Allergy/AdvReac Type Severity Reaction Status Date / Time No Known Allergies Allergy Verified 05/10/20 14:43 Exam Data for Last 24 hours Vital signs and Labs for Last 24 Hours: Temp Pulse Resp BP Pulse Ox O2 Del Method 97.6 F 83 18 151/71 H 98 Room Air 06/16/23 12:18 06/16/23 12:18 06/16/23 12:18 06/16/23 12:18 06/16/23 12:18 06/16/23 12:18 Laboratory Results - last 24 hr 06/16/23 13:00: WBC 6.8, RBC 3.95 L, Hgb 11.2 L, Hct 32.7 L, MCV 82.9, MCH 28.4, MCHC 34.2, RDW 15.1, Plt Count 475 H, MPV 8.2, Neut % (Auto) 77.5, Lymph % (Auto) 14.0, Osborne % (Auto) 7.6, Eos % (Auto) 0.7, Baso % (Auto) 0.2, Neut # (Auto) 5.3, Lymph # (Auto) 1.0, Osborne # (Auto) 0.5, Eos # (Auto) 0.1, Baso # (Auto) 0.0, ESR 20, Sodium 123 L, Potassium 5.8 H, Chloride 93 L, Carbon Dioxide 26, Anion Gap 9.8, BUN 19 H, Creatinine 0.80, Estimated Creat Clear 38, Estimated GFR 68, Est GFR ( Amer) 82, Glucose 152 H, Calcium 8.8, Total Bilirubin 0.9, AST 40 H, ALT 20, Alkaline Phosphatase 70, C-Reactive Protein 7.8 H, Total Protein 6.4, Albumin 3.7, Globulin 2.7, Albumin/Globulin Ratio 1.4 06/16/23 13:50: Lactate 0.9 I & O for Last 24 hours: Intake & Output 06/13/23 06/14/23 06/15/23 06/16/23 23:59 23:59 23:59 23:59 Weight 60.328 kg Constitutional Constitutional: no acute distress, average body habitus, chronically ill appearing and cooperative *Routine HEENT Exam Head: Present normocephalic Eye: Present EOMI and PERRL ENT: Present mucous membranes moist *Routine Neck Exam Neck: Present supple; Absent lymphadenopathy *Routine Respiratory Exam Respiratory: Present CTA bilaterally; Absent rhonchi, wheezes or crackles *Routine Cardiovascular Exam Cardiovascular: Present RRR *Routine Abdominal Exam Abdominal: Present soft and normoactive bowel sounds; Absent tenderness *Routine Rectal Exam Rectal:: deferred *Routine Genitalia Exam Genitalia:: deferred *Routine Extremities Exam Extremities: Absent cyanosis, clubbing or edema Comments: left hip TTP laterally and along inguinal crease *Routine Skin Exam Skin: Present warm; Absent rash *Routine Neurological Exam Neurological: Present alert and moving all extremities; Absent altered mental status Comments: Oriented to self, place, situation. Has been having waning mentation in the mornings, poor historian during interview, difficulty with time, defaults to daughter to help with giving history Assessment and Plan *Assessment and plan (1) Acute hyponatremia: Status: Acute Category: Medical Code(s): E87.1 - Hypo-osmolality and hyponatremia (2) Arthritis, hip: Status: Acute Category: Medical Code(s): M16.10 - Unilateral primary osteoarthritis, unspecified hip (3) Effusion of hip joint, left: Status: Acute Category: Medical Code(s): M25.452 - Effusion, left hip (4) Hypertension: Status: Acute Category: Medical Code(s): I10 - Essential (primary) hypertension (5) DM type 2 (diabetes mellitus, type 2): Status: Acute Category: Medical Code(s): E11.9 - Type 2 diabetes mellitus without complications Plan 88-year-old female with progressive left hip pain. Presented with some mild confusion. Found to have hyponatremia. Discussed case with ER, request admission for treatment of hyponatremia, evaluation by orthopedics, and pain management. Medicine agreed to admit for further management. Problems addressed as follows: Symptomatic hyponatremia -Sodium 123, low below normal baseline. Repeat CBC, CMP, magnesium ordered for the morning -Status post normal saline in the ER. Correction rate less than 8 mEq a day - Mild confusion and hallucinations per report. Monitor for improvement with treatment of hyponatremia. 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 Will discuss outpatient eval for hip replacement -Low suspicion for infectious arthritis. White cell count normal. Inflammatory markers nonactionable. Repeat CRP ordered for the morning -Imaging personally reviewed, small effusion, significant degenerative changes. -Hydrocodone 5 mg as needed every 4 hours for pain -Continue home meloxicam 15 mg daily Diabetes: Fingersticks ACHS with sliding scale insulin ACHS. A1c 6.0, well controlled Hypertension: Continue amlodipine 5 mg, Lipitor 40 mg Full code Diabetic diet Heparin subcu
--- NOTE | 2023-06-16 15:45 | PC.NURSE ---
Pt admitted to room 206 to hospitalist with hyponatremia and inability to walk, obs
--- NOTE | 2023-06-16 15:52 | PC.NURSE ---
REPORT GIVEN TO NINI MIN
--- NOTE | 2023-06-16 17:56 | PC.NURSE ---
A&OX4. TOLERATING RA WELL. FAMILY AT BEDSIDE. PT HAS HAD NO NEEDS OR C/O SINCE ARRIVAL TO FLOOR, HAS A GOOD APPETITE. VSS.
[2023-06-16] MEDS: HYDROCODONE/APAP 5/325 MG TABLET 1 TAB PO (19:44)
[2023-06-16] MEDS: SENNOSIDES 8.6MG/DOCUSATE 50MG TABLET 1 TAB PO (20:16)
[2023-06-16] MEDS: HEPARIN SODIUM 5,000 UNIT/ML VIAL 5000 UNIT SQ (20:16)
[2023-06-16] MEDS: humaLOG 100 UNITS/ML 3ML VIAL (SSI) SQ (21:23)
[2023-06-16 21:31] LABS: POC Glucose,Bedside 274 (70-110)
[2023-06-17] MEDS: HYDROCODONE/APAP 5/325 MG TABLET 1 TAB PO (00:37)
[2023-06-17 04:00] VITALS: BP 132/75; PULSE 76; RESP 18; TEMP 36.6; O2SAT 95; BMI 21.2
[2023-06-17 05:31] LABS: POC Glucose,Bedside 119 (70-110)
--- NOTE | 2023-06-17 07:54 | P.DS_ITS ---
General Admission date:: 06/16/23 Discharge date: 06/17/23 HPI HPI HPI: 88-year-old female with history of hypertension, hyperlipidemia, diabetes. Has been having progressive pain in her left hip since January. Gives protracted history of referrals for multiple images, pain treatment for injections, and mixed opinions about her hip pain being related to infection versus arthritis versus tumor. Has yet to get much relief from the pain and has been having more confusion over the past few weeks after steroid injections most acutely this morning. Son expressed concern to his sister that mom was talking out of her head about fictitious events and objects. Came to the ER for further evaluation. Daughter who is with her at bedside reports the patient has been sleeping more, has had some increased confusion, not seeing good relief from previous modalities to address pain and hip. Most recent steroid injection approximately 2 weeks ago. Workup in the ER including CAT scan of hip showed concern for severe arthritis with effusion. Inflammatory markers relatively unremarkable, marginally elevated. Noted to have hyponatremia of 123. Case discussed with orthopedics, recommended admission for treatment of her hyponatremia and evaluation for further management of hip pain. No emergent need for surgery. Medicine consulted for admission and further management. On evaluation, patient continues to complain of left hip pain. Alert and oriented to self and place. Reports pain progresses to the point she has a hard time moving. Denies fever or chest pain. No shortness of breath. No nausea or vomiting. Has had a decreased appetite over the past several months due to pain and is therefore lost a little over 20 pounds. Stable on room air Hospital Course Hospital Course Hospital Course: 88-year-old female with progressive left hip pain. Presented with some mild confusion. Found to have hyponatremia. Discussed case with ER, request admission for treatment of hyponatremia, evaluation by orthopedics, and pain management. Medicine agreed to admit for further management. Patient did well during admission. Sodium normalized. Pain control better with current regimen. Stable to discharge home with outpatient referral to orthopedics for further management. Problems addressed as follows: Symptomatic hyponatremia -Sodium 123 on admission. Improved to 130 at discharge. This appears to be her baseline range from previous visits. Mentation back to baseline. No confusion or hallucinations during hospitalization. Left hip pain likely due to degenerative arthritis - Orthopedics consulted, appreciate their recommendations. Discussed case. Recommend referral to Dr. Bates at as we do not do hip replacements at our institutions. Low suspicion for infectious arthritis based on imaging and lab results. White cell count normal. CRP 8.5. Patient afebrile. Referral placed for [facility]. Continue hydrocodone 5/325 mg up to 4 times a day as needed for pain. Continue home meloxicam. Patient feeling better and able to ambulate with walker given improvement in pain control. Diabetes: Glucose well-controlled during admission. A1c 6.0. Resume home regimen. Hypertension: Continue amlodipine 5 mg, Lipitor 40 mg Spent 30 minutes in discharge counseling, documentation, chart review, and direct care with patient. Exam Data for Last 24 hours Vital signs and Labs for Last 24 Hours: Temp Pulse Resp BP Pulse Ox O2 Del Method 97.9 F 76 18 132/75 95 Room Air 06/17/23 04:00 06/17/23 04:00 06/17/23 04:00 06/17/23 04:00 06/17/23 04:00 06/17/23 06:17 Laboratory Results - last 24 hr 06/16/23 13:00: WBC 6.8, RBC 3.95 L, Hgb 11.2 L, Hct 32.7 L, MCV 82.9, MCH 28.4, MCHC 34.2, RDW 15.1, Plt Count 475 H, MPV 8.2, Neut % (Auto) 77.5, Lymph % (Auto) 14.0, [place] % (Auto) 7.6, Eos % (Auto) 0.7, Baso % (Auto) 0.2, Neut # (Auto) 5.3, Lymph # (Auto) 1.0, [place] # (Auto) 0.5, Eos # (Auto) 0.1, Baso # (Auto) 0.0, ESR 20, Sodium 123 L, Potassium 5.8 H, Chloride 93 L, Carbon Dioxide 26, Anion Gap 9.8, BUN 19 H, Creatinine 0.80, Estimated Creat Clear 38, Estimated GFR 68, Est GFR ( Amer) 82, Glucose 152 H, Hemoglobin A1c 6.0, Calcium 8.8, Total Bilirubin 0.9, AST 40 H, ALT 20, Alkaline Phosphatase 70, C- Reactive Protein 7.8 H, Total Protein 6.4, Albumin 3.7, Globulin 2.7, Albumin/Globulin Ratio 1.4 06/16/23 13:50: Lactate 0.9 06/16/23 21:18: POC Glucose 274 H 06/17/23 05:18: POC Glucose 119 H I & O for Last 24 hours: Intake & Output 06/14/23 06/15/23 06/16/23 06/17/23 23:59 23:59 23:59 23:59 Intake Total 610 / 610 Output Total 0 / 0 0 / 0 Balance 610 / 610 0 / 0 Weight 63.673 kg 63.673 kg Constitutional Constitutional: no acute distress, average body habitus and chronically ill appearing *Routine HEENT Exam Head: Present normocephalic Eye: Present EOMI and PERRL ENT: Present mucous membranes moist *Routine Neck Exam Neck: Present supple; Absent lymphadenopathy *Routine Respiratory Exam Respiratory: Present CTA bilaterally *Routine Cardiovascular Exam Cardiovascular: Present RRR *Routine Abdominal Exam Abdominal: Present soft and normoactive bowel sounds; Absent tenderness *Routine Extremities Exam Extremities: Absent cyanosis, clubbing or edema Comments: TTP over left hip. *Routine Skin Exam Skin: Present warm; Absent rash *Routine Neurological Exam Neurological: Present alert, oriented X3 and moving all extremities; Absent altered mental status Results Data Completed and Pending Labs on day of discharge: Labs from last 24 hours 06/17/23 06/16/23 06/16/23 05:18 21:18 13:50 WBC RBC Hgb Hct MCV MCH MCHC RDW Plt Count MPV Neut % (Auto) Lymph % (Auto) [place] % (Auto) Eos % (Auto) Baso % (Auto) Neut # (Auto) Lymph # (Auto) Jeff [place] # (Auto) Eos # (Auto) Baso # (Auto) ESR Sodium Potassium Chloride Carbon Dioxide Anion Gap BUN Creatinine Estimated Creat Clear Estimated GFR Est GFR ( Amer) Glucose POC Glucose 119 H 274 H Hemoglobin A1c Lactate 0.9 Calcium Total Bilirubin AST ALT Alkaline Phosphatase C-Reactive Protein Total Protein Albumin Globulin Albumin/Globulin Ratio 06/16/23 13:00 WBC 6.8 RBC 3.95 L Hgb 11.2 L Hct 32.7 L MCV 82.9 MCH 28.4 MCHC 34.2 RDW 15.1 Plt Count 475 H MPV 8.2 Neut % (Auto) 77.5 Lymph % (Auto) 14.0 Jeff [place] % (Auto) 7.6 Eos % (Auto) 0.7 Baso % (Auto) 0.2 Neut # (Auto) 5.3 Lymph # (Auto) 1.0 [place] # (Auto) 0.5 Eos # (Auto) 0.1 Baso # (Auto) 0.0 ESR 20 Sodium 123 L Potassium 5.8 H Chloride 93 L Carbon Dioxide 26 Anion Gap 9.8 BUN 19 H Creatinine 0.80 Estimated Creat Clear 38 Estimated GFR 68 Est GFR ( Amer) 82 Glucose 152 H POC Glucose Hemoglobin A1c 6.0 Lactate Calcium 8.8 Total Bilirubin 0.9 AST 40 H ALT 20 Alkaline Phosphatase 70 C-Reactive Protein 7.8 H Total Protein 6.4 Albumin 3.7 Globulin 2.7 Albumin/Globulin Ratio 1.4 DS: Diagnosis Discharge Diagnosis (1) Acute hyponatremia: Status: Acute Code(s): E87.1 - Hypo-osmolality and hyponatremia (2) Arthritis, hip: Status: Acute Code(s): M16.10 - Unilateral primary osteoarthritis, unspecified hip (3) Effusion of hip joint, left: Status: Acute Code(s): M25.452 - Effusion, left hip (4) Hypertension: Status: Acute Code(s): I10 - Essential (primary) hypertension (5) DM type 2 (diabetes mellitus, type 2): Status: Acute Code(s): E11.9 - Type 2 diabetes mellitus without complications Meds Home Medications and Allergies Home Medications Medication Instructions Recorded Confirmed Type glucosamine-chondroitin 250 mg-200 2 tab PO QPC 10/21/18 06/16/23 History mg tablet (Osteo Bi-Flex) pioglitazone 15 mg-metformin ER 1 tab PO DAILY 10/21/18 06/16/23 History 1,000 mg tablet,extend release 24hr mp ranitidine HCl 300 mg capsule 300 mg PO DAILY 10/21/18 06/16/23 History meclizine 25 mg tablet 25 mg PO BID PRN dizziness #60 tabs 05/10/20 06/16/23 Rx amlodipine 5 mg-atorvastatin 40 mg 1 tab PO DAILY 30 days #30 tabs 06/17/23 Rx tablet ezetimibe 10 mg tablet 10 mg PO DAILY 30 days #30 tabs 06/17/23 Rx hydrocodone 5 mg-acetaminophen 325 1 tab PO Q6HP PRN Mild To Moderate 06/17/23 Rx mg tablet Pain (1-6) 3 days #12 tabs meloxicam 15 mg tablet 15 mg PO DAILY 30 days #30 tabs 06/17/23 Rx New Prescriptions to Start Prescriptions: amlodipine-atorvastatin Maycol Shepherd ezetimibe Maycol Shepherd hydrocodone-acetaminophen Maycol Shepherd meloxicam Maycol Shepherd Allergies Allergy/AdvReac Type Severity Reaction Status Date / Time No Known Allergies Allergy Verified 05/10/20 14:43 Discharge Plan Disposition Patient Disposition: Home, Self-Care Condition: Good Follow up Plan Follow up with: Betsy YEE [Primary Care Provider] - Enter time for follow up Hans Bates [Referring] - Enter time for follow up (referral for eval for hip replacement) Prescriptions/Medication Reconciliation: New hydrocodone-acetaminophen 5-325 mg Tablet 1 tab PO Q6HP PRN (Reason: Mild To Moderate Pain (1-6)) 3 Days Qty: 12 0RF Continued pioglitazone-metformin 15-1,000 mg tablet, ER multiphase 24 hr 1 tab PO DAILY ranitidine HCl 300 mg capsule 300 mg PO DAILY glucosamine-chondroitin [Osteo Bi-Flex] 250-200 mg tablet 2 tab PO QPC meclizine 25 mg tablet 25 mg PO BID PRN (Reason: dizziness) Qty: 60 0RF meloxicam 15 mg tablet 15 mg PO DAILY 30 Days Qty: 30 0RF ezetimibe 10 mg tablet 10 mg PO DAILY 30 Days Qty: 30 0RF amlodipine-atorvastatin 5-40 mg tablet 1 tab PO DAILY 30 Days Qty: 30 0RF Problem Reconciliation Problems Reviewed?: Yes Patient Discharge Instructions ACTIVITY: Continue current activity DIET: continue same diet Patient Instructions: Help for Hip Pain, DI for Hip Pain Providers Primary Care Provider: Betsy YEE Admit Provider: Maycol Shepherd Attending Provider: Maycol Shepherd
[2023-06-17 08:00] VITALS: BP 119/69; PULSE 92; RESP 17; TEMP 36.7; O2SAT 98
[2023-06-17 08:40] LABS: Basophils % 0.5 % (0.1-2.0); Eosinophils # 0.1 K/mm3 (0.0-0.4); Eosinophils % 0.8 % (0.1-12.0); Hematocrit 35.8 % (37.0-47.0); Hemoglobin 12.2 g/dL (12.2-16.2); Lymphocytes # 1.3 K/mm3 (0.7-4.5); Lymphocytes % 17.8 % (10-50); Mean Corpuscular HGB Conc 34.1 g/dL (31.8-35.4); Mean Corpuscular Hemoglobin 29.2 pg (27.0-31.2); Mean Corpuscular Volume 85.6 fl (81-99); Mean Platelet Volume 7.4 fl (7.4-10.4); Monocytes # 0.5 K/mm3 (0.1-1.0); Neutrophils # 5.5 K/mm3 (1.8-7.8); Neutrophils % 73.8 % (37.0-80.0); Platelet Count 477 K/mm3 (142-424); Red Blood Count 4.18 M/mm3 (4.20-5.40); Red Cell Distribution Width 15.2 % (11.5-17.5); White Blood Count 7.4 K/mm3 (4.8-10.8)
[2023-06-17 08:47] LABS: Alanine Aminotransferase 19 U/L (12-78); Albumin Level 4.2 g/dl (3.5-5.0); Albumin/Globulin Ratio 1.5 (1.1-1.8); Alkaline Phosphatase 127 U/L (38-126); Anion Gap 11.6 mEq/L (5-15); Aspartate Amino Transferase 25 U/L (14-36); Bilirubin,Total 0.5 mg/dl (0.2-1.3); Blood Urea Nitrogen 17 mg/dl (7-17); Calcium 9.7 mg/dl (8.4-10.2); Carbon Dioxide 29 mmol/L (22.0-30.0); Chloride 94 mmol/L (98-107); Creatinine Clearance Estimated 41 mL/min (50-200); Estimated Glomerular Filt Rate 59 ml/min (>60); GFR (African American) 72 ML/MIN (>60); Globulin 2.8 g/dL (1.3-3.2); Glucose 110 mg/dl (74-100); Potassium 4.6 mmoL/L (3.5-5.1); Sodium 130 mmol/L (136-145)
[2023-06-17 08:52] LABS: C-Reactive Protein 8.5 mg/L (0-4)
[2023-06-17] MEDS: HEPARIN SODIUM 5,000 UNIT/ML VIAL 5000 UNIT SQ (09:48)
[2023-06-17] MEDS: AMLODIPINE 5MG TABLET 5 MG PO (09:48)
[2023-06-17] MEDS: ATORVASTATIN 40MG TABLET 40 MG PO (09:48)
[2023-06-17] MEDS: SENNOSIDES 8.6MG/DOCUSATE 50MG TABLET 1 TAB PO (09:49)
--- NOTE | 2023-06-17 11:42 | HMH.PTEV ---
Physical Therapy Evaluation Rehab PT IP Evaluation Start: 06/16/23 21:05 Freq: ONCE Status: Active Protocol: Document 06/17/23 11:25 PDESEROUX (Rec: 06/17/23 11:42 PDESEROUX [id number]) Subjective/History History History Pt. is a 88 year old female who presents to [facility] 2nd floor Inpatient setting w/ PMH of hypertension, hyperlipidemia, chronic LLE hip P!, and diabetes. Pt. reports admission to hospital secondary to hyponatremia. Pt. c/o constant 10/10 LLE hip P! at rest that worsens w/ activity. Pt. reports history of pain management regarding the LLE hip including oral pain medicine and injections that did not provide symptom relief. Pt. also reports worrisome of infection in the LLE hip regarding previous steroid injections. Pt. reports she is expecting a call for a referral to another Specialist in the next day or two regarding her LLE hip P!. Pt. reports she lives w/ her granddaughter and time to time w/ her daughter when she can in between her occupation . Pt. reports her daughter will clean her home and both provide assistance w/ ADLs. Pt . reports having 13 steps or so to the second floor for her to bathe herself. Pt. reports ambulating w/ rollator at all times to reduce the risk for a fall. Pt. reports having a bad fall last January where she crushed the LLE that has led to the progressively worsening of LLE hip P!. Subjective Subjective Pt. was upright and seated in chair upon entry into pt.'s room after being given the okay by pt. to enter. Pt. agreeable to participate in Physical Therapy Inpatient eval. Pt. reports, I'm waiting for my ride to go home. Pt. reports constant LLE hip P! that will worsen w/ activity. Upon exiting pt.'s room, pt. was left w/ family member to give her a ride back home, therefore, PT informed pt.'s nurse about soon to be discharge. Pt. reports her MD was aware of discharge. New diagnosis of cancer in past 12 No months? Rehab PT IP Eval Objective Appearance Patient Behavior Appropriate,Cooperative Patient Orientation Person,Place,Birthday, Situation Difficulty following instructions none Speech Pattern Clear,Appropriate,Coherent Ambulation Patient Able to Ambulate Yes Ambulation Observation IP General Gait Pattern Observation Antalgic Gait,Shuffling Step, Decrease Weight Bear (L), Decrease Stride Lngth (R) Ambulation Distance (feet) 20 Ambulation Assistive Device Rolling Walker Ambulation Ability Independent Balance Ability to Arise Able, uses arms to help Sitting Balance Steady, safe Standing Balance Narrow stance w/o support Dynamic Sitting Balance Ability Normal Dynamic Standing Balance Ability Good Transfers Chair Transfer Ability Independent Sit to Stand Bed Transfer Ability Independent Sit to Stand Chair Transfer Ability Independent Pain Left Hip Pain Intensity 10 ROM LLE PT ROM Status ABN Abnormal ROM Comment d/t LLE hip P! RLE PT ROM Status WFL MMT RLE PT MMT WFL LLE PT MMT ABN Abnormal MMT Grade 4-/5 d/t P! Rehab PT IP prob,goals,plan Problems Date of Evaluation: 06/17/23 Rehab Potential Rehab Potential Innapropriate for Skilled Therapy Discharge Plan PT Discharge Plan Upon discharge from [facility], once medically stable per MD, pt. would receive further benefit w/ Specialist referral regarding LLE hip severe osteoarthritis and skilled Outpatient Physical Therapy or skilled Home Health Physical Therapy to further improve muscle strength/condition/ROM to improve current quality of life and ADLs. Eval Complexity Eval Charge Codes 30157 - Low Complexity PHYSICIAN CERTIFICATION: I certify the specified therapy services for Tasneem Perales are required, authorized, and reviewed every 30 days.
--- NOTE | 2023-06-18 15:00 | CARE MANAGER ---
Called and spoke with patient regarding recent discharge. Patient states that she is doing well. She plans to schedule f/u appts. I did call down and order her a disk from radiology so that she can take it to her orthopedic appt. She voiced no concerns at time of call.
== END 2023-06-17 12:02 | disposition home or self-care (01) ==
LOC: ER 15:02 → 2ND 15:47
PROVIDERS: Student in an Organized Health Care Education/Training Program; Admitting Provider Internal Medicine Adolescent Medicine; Emergency Provider Emergency Medicine; PCP Internal Medicine; Visit Provider Internal Medicine Adolescent Medicine
DX: E87.1 Hypo-osmolality and hyponatremia (principal); M16.10 Unilateral primary osteoarthritis, unspecified hip; M25.452 Effusion, left hip; I10 Essential (primary) hypertension; E11.9 Type 2 diabetes mellitus without complications; E78.00 Pure hypercholesterolemia, unspecified
CPT/HCPCS: 36415; 72193; 80053; 82962; 83036; 83605; 83735; 85025; 85651; 86140; 87040; 97161; G0378; J2405; Q9967

== ENCOUNTER 2023-09-12 10:57 | Outpatient (CLI) | payer MEDICARE, BC, SELFPAY ==
[2023-09-12 12:51] LABS: Anion Gap 12.6 mEq/L (5-15); Blood Urea Nitrogen 22 mg/dl (7-17); Calcium 9.4 mg/dl (8.4-10.2); Carbon Dioxide 24 mmol/L (22.0-30.0); Chloride 95 mmol/L (98-107); Estimated Glomerular Filt Rate 79 ml/min (>60); GFR (African American) 96 ML/MIN (>60); Glucose 94 mg/dl (74-100); Potassium 4.6 mmoL/L (3.5-5.1); Sodium 127 mmol/L (136-145)
== END 2023-09-12 23:59 | disposition home or self-care (01) ==
LOC: LAB 11:00
PROVIDERS: PCP Internal Medicine; Visit Provider Internal Medicine
DX: E87.1 Hypo-osmolality and hyponatremia (principal)
CPT/HCPCS: 36415; 80048

== ENCOUNTER 2023-09-14 12:30 | Outpatient (CLI) | payer MEDICARE, BC, SELFPAY ==
[2023-09-14 12:59] LABS: Chloride 96 mmol/L (98-107)
[2023-09-14 13:00] LABS: Potassium 4.9 mmoL/L (3.5-5.1); Sodium 129 mmol/L (136-145)
[2023-09-14 13:03] LABS: Anion Gap 11.9 mEq/L (5-15); Blood Urea Nitrogen 18 mg/dl (7-17); Carbon Dioxide 26 mmol/L (22.0-30.0); Estimated Glomerular Filt Rate 68 ml/min (>60); GFR (African American) 82 ML/MIN (>60); Glucose 129 mg/dl (74-100)
[2023-09-15 23:51] LABS: Osmolality, Urine 387 mOsmol/kg (.)
== END 2023-09-14 23:59 | disposition home or self-care (01) ==
LOC: LAB 12:32
PROVIDERS: PCP Internal Medicine; Visit Provider Internal Medicine
DX: E87.1 Hypo-osmolality and hyponatremia (principal)
CPT/HCPCS: 36415; 80048; 83930; 83935

== ENCOUNTER 2023-09-17 10:51 | Outpatient (CLI) | payer MEDICARE, BC, SELFPAY ==
[2023-09-17 11:59] LABS: Chloride 97 mmol/L (98-107); Potassium 4.7 mmoL/L (3.5-5.1); Sodium 128 mmol/L (136-145)
[2023-09-17 12:02] LABS: Anion Gap 9.7 mEq/L (5-15); Blood Urea Nitrogen 19 mg/dl (7-17); Calcium 8.9 mg/dl (8.4-10.2); Carbon Dioxide 26 mmol/L (22.0-30.0); Estimated Glomerular Filt Rate 79 ml/min (>60); GFR (African American) 96 ML/MIN (>60); Glucose 118 mg/dl (74-100)
== END 2023-09-17 23:59 | disposition home or self-care (01) ==
LOC: LAB 10:52
PROVIDERS: PCP Internal Medicine; Visit Provider Internal Medicine
DX: E87.1 Hypo-osmolality and hyponatremia (principal)
CPT/HCPCS: 36415; 80048

== ENCOUNTER 2023-11-07 15:23 | Outpatient (CLI) | payer MEDICARE, BC, SELFPAY ==
--- OUTSIDE RECORDS SUMMARY | 2023-11-07 15:27 | XMS_ITS | Summary of Care ---
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 Name Role Phone Betsy Smith Primary Care Physician Unavailab le Encounter 09/25/23 - 10/05/23 [facility] [address] [place] [phone] Discharge Disposition: 06H Home with Home Health Care Attending Physician: Nikkie CACERES, Vince Mcpherson Admitting Physician: Vince Lundy MD Referring Physician: Griffin Bustillos Allergies, Adverse Reactions, Alerts No Known Medication Allergies Assessment and Plan Extracted from: Title: PM&R Discharge Summary Author:Magy Liang Date:10/05/23 Patient: SUSHMA PERALES Age: 88 years Sex: Female : 1935 Associated Diagnoses: None Author: Magy Liang PM&R Discharge Summary Date of Admission: 09/25/2023 Date of Discharge: 10/05/2023 Service Attending: Dr. Vince Lundy MD Discharge Attending: Dr. Vince Lundy MD Service Resident: Magy Randhawa DO Admission Diagnosis: Functional decline after L hip KUSH Admission HPI: Sushma Perales is an 88 y/o F, PMHX of DM, HTN, osteoporosis, presented to [facility] on 09/18 for scheduled L hip KUSH with Dr. Bustillos. Patient tolerated the procedure well, seen by PT/OT. Hospital course complicated by: 1. Hyponatremia - improved with IVF and fluid restriction, keep 1500ml fluid restrict 2. hyperkalemia - improved with dietary modifications, did not require lokelma 3. CHANA on CKD - baseline Cr was 0.8, inc to 1.29 post-op, improved to 0.9 4. acute blood loss anemia on chronic anemia - transfusion x2 at 5. Normotensive off HTN meds - held irbesartan Patient seen on arrival to [facility]. Has questions about hip abduction pillow. Reports that she is having sharp, burning pain at night that is keeping her awake, particularly in the hip abduction pillow. Histories: PMH: DM II HTN GERD Osteoporosis on alendronate PSH: R knee surgery for cartilage/meniscus Lumbar discectomy Tonsillectomy and adenoidectomy Allergies: NKDA Family hx: Mom with HTN, sister with lung cancer Social hx: Marital Status: Children: 4 Previous Residence: [address], full bath is upstairs, has half bath on main floor Anticipated Residence: home with family assist Support: 4 children all local, some grown grandchildren Tobacco: denies Alcohol: denies Drugs: denies Education: 2 yrs [employer] International Travel: denies Occupational History: multiple jobs, last and longest was [employer] Hobbies: Bingo DME used prior to rehab: None Patient/Family goals for rehab: Get back to yardwork, gardening, caring for her dogs Rehabilitation Hospital Course: Patient was admitted to the [facility] service. They were evaluated by PT, OT, and speech. Pt participated and tolerated an average of 3 hours of therapy a day, 5 days a week and made appropriate progress throughout their acute rehabilitation hospital stay. Medical conditions during the rehabilitation stay were addressed as followed below. Rehabilitation of functional impairment: - Completed comprehensive acute inpatient rehabilitation - PT worked on posture/stability, core strengthening and stabilization, gait training, community mobility, balance and positioning, coordination and fine motor control - OT worked on home safety, cognition and memory strategies, core strengthening and stabilization, balance and positioning, functional range of motion, coordination, equipment assessment and training, functional/ADL training including upper and lower body dressing, eating, grooming, toileting - Rehab nursing worked on self care, medication management and teaching (including pain management), patient mobilization, and safety training - Recommend continuing therapeutic exercises as indicated Medical Hospital Course: L hip end stage osteoarthritis -s/p L Hip KUSH with Dr. Bustillos -Dressings to remain in place at all times, do not picture or remove, per surgeon instructions -Posterior hip precautions, no WB restrictions - hip abduction pillow nightly -DVT ppx with aspirin 81mg BID x4 weeks -Follow-up on 10/09/23 -Pain control with [facility] tylenol, prn [place] - will add gabapentin 100mg qhs -Bowel regimen with [facility] doc-senna, prn miralax, Dulcolax BLE edema -L>R -No recent echo on file at - will order -Tubigrip started on 09/25 -Duplexes of BLE were negative -Gave multiple doses of oral Lasix with some improvement - defer to PCP to add additional if needed after repeat BNP check outpatient Hyponatremia -Noted at -improved with IVF and fluid restriction - recs for 1500ml fluid restrict - will continue - monitor on admission and biweekly labs Hyperkalemia - improved with dietary modifications, did not require lokelma at acute care - Continue low potassium diet - monitor on admission and biweekly labs CHANA on CKD - baseline Cr was ~0.8, inc to 1.29 post-op, improved to 0.9 by d/c from acute care - monitor on admission and biweekly labs - avoid nephrotoxic agents -Cr 0.9 on admission Acute blood loss anemia on chronic anemia -Required transfusion x2 at - monitor on admission and biweekly labs -Transfuse for Hgb <7 - 7.5 on admission, consistent with trends HTN -Normotensive at , home irbesartan held -[facility] vitals -Was not hypertensive at [facility] - home irbesartan held on d/c, defer to PCP to resume if indicated DM -On Meformin 1500mg qd at home -Most recent A1C was 6.0 -SSI at -Stable on Metformin 500mg qd at [facility] - will send home on reduced dose with PCP to titrate back as indicated GERD -Formulary substitute of pantoprazole for omeprazole Osteoporosis -Home alendronate held per Ortho Dr. Bustillos Insomnia -Complicated by pain -[facility] melatonin -Gabapentin as above Patient noted to be medically stable on the day of discharge. Physical Exam: Vital Signs (last 24 hrs) Last Charted Temp Oral 97.7 DegF (OCTOBER 04 07:46) Heart Rate Peripheral 75 bpm (OCTOBER 04 07:47) Resp Rate 18 br/min (OCTOBER 04 07:47) SBP 128 mmHg (OCTOBER 04 07:46) DBP 73 mmHg (OCTOBER 04 07:46) SpO2 95 % (OCTOBER 04 07:47) See day of discharge progress note Labs: Labs (Last four charted values) WBC 7.7 (OCTOBER 03) 8.0 (SEPTEMBER 30) 6.9 (SEPTEMBER 26) 6.5 (SEPTEMBER 25) Hgb C 7.8 (OCTOBER 03) C 7.7 (SEPTEMBER 30) C 7.4 (SEPTEMBER 26) C 7.5 (SEPTEMBER 25) Hct L 23.4 (OCTOBER 03) L 23.0 (SEPTEMBER 30) L 21.5 (SEPTEMBER 26) L 22.2 (SEPTEMBER 25) Plt H 512 (OCTOBER 03) H 498 (SEPTEMBER 30) 377 (SEPTEMBER 26) 351 (SEPTEMBER 25) Na L 132.0 (OCTOBER 03) L 132.0 (SEPTEMBER 30) L 128.0 (SEPTEMBER 26) L 129.0 (SEPTEMBER 25) K 4.4 (OCTOBER 03) H 4.8 (SEPTEMBER 30) 4.5 (SEPTEMBER 26) 4.6 (SEPTEMBER 25) CO2 H 31.0 (OCTOBER 03) H 30.0 (SEPTEMBER 30) 29.0 (SEPTEMBER 26) 29.0 (SEPTEMBER 25) Cl 97.0 (OCTOBER 03) 97.0 (SEPTEMBER 30) 96.0 (SEPTEMBER 26) 96.0 (SEPTEMBER 25) Cr 1.00 (OCTOBER 03) 0.90 (SEPTEMBER 30) 0.90 (SEPTEMBER 26) 0.90 (SEPTEMBER 25) BUN H 26.0 (OCTOBER 03) 23.0 (SEPTEMBER 30) H 28.0 (SEPTEMBER 26) H 30.0 (SEPTEMBER 25) Glucose 92 (OCTOBER 04) 164 (OCTOBER 03) 104 (OCTOBER 03) 121 (OCTOBER 03) Mg 1.7 (SEPTEMBER 25) Phos L 3.2 (SEPTEMBER 25) Ca L 8.1 (OCTOBER 03) L 8.3 (SEPTEMBER 30) L 7.9 (SEPTEMBER 26) L 7.8 (SEPTEMBER 25) Functional Status on Admission: BED MOBILITY: Scooting/ Bridging: CGA, set up required. Supine to Sit: Min Assist, supervision, cues. TRANSFERS: Sit<>Stand: CGA, set up required, RW. Toilet transfer: CGA, set up required to BSC, RW. AMBULATION: 150' CGA, RW. Max cues for posture and min cues for hip precautions during turns. Decreased akilah and forward posture From a functional perspective, patient with improvement in GG scores as follows: Functional Status at Discharge: Mobility Functional Status [id number] Lying to Sitting Side of Bed Goal: Independent - 06 (10/03/23) [id number] Sit to Stand: Independent - (10/04/23) [id number] Chair,Bed to Chair Transfer: Independent - 06 (10/04/23) Ambulation- Level Comments: 10/03 IND with FWW to/from bathroom. (10/04/23) [id number] Walk 10 Feet: Independent - (10/04/23) [id number] Walk 50 Feet with Two Turns: Independent - (10/04/23) [id number] Walk 150 Feet: Independent - (10/04/23) ADL Status [id number] Eating: Independent - (10/04/23) [id number] Oral Hygiene: Independent - (10/04/23) [id number] Upper Body Dressing: Independent - 06 (10/04/23) [id number] Lower Body Dressing: Independent - 06 (10/04/23) [id number] Toileting Hygiene: Independent - (10/05/23) [id number] Toilet Transfer: Independent - (10/05/23) [id number] Shower, Bathe Self: Independent - 06 (10/04/23) Tub/Shower Transfer- OT: Ind (10/04/23) Speech/Language & Cognition Functional Status Comprehension Mode Functional Status: Auditory, Visual (09/25/23) Ability to Hear: Minimal difficulty - difficulty in some environments (e.g. when a person speaks softly or setting is noisy) (09/26/23) Visual Acuity: Impaired - sees large print, but not regular print in newspapers/books (09/26/23) Health Literacy SILS: Never (10/04/23) [id number] Expression of Ideas and Wants: Expresses complex messages without difficulty and with speech that is clear and easy to understand - 4 (10/04/23) [id number] Understanding Verbal Content: Understands - Clear comprehension without cues or repetitions - 4 (10/04/23) Expression Mode Functional Status: Vocal (09/25/23) Person Orientation IP: Independent (10/04/23) Place Orientation IP: Independent (10/04/23) Time Orientation IP: Independent (10/04/23) Situation Orientation IP: Independent (10/04/23) Biographical Information Orientation IP: Independent (10/04/23) Attention Functional Status - OT: Independent (10/04/23) Memory Functional Status - OT IP: Usually Independent (10/04/23) Safety Awareness/Insight - OT: Usually Independent (10/04/23) Simple Problem Solving Func Status OT: Usually Independent (10/04/23) Complex Problem Solving Func Status OT: Sometimes Independent (10/04/23) Communication/Cognition Descriptors: Delayed Response, Requires assistance for safety, Requires increased time, Requires rest breaks, Requires verbal redirection to tasks, Verbal cues (09/26/23) Discharge Medications: Home Medications (12) Active aspirin 81 mg oral delayed release tablet 81 mg = 1 tab, Oral, BID calcium-vitamin D 500 mg-5 mcg (200 intl units) oral tablet 1 tab, Oral, BID docusate-senna 50 mg-8.6 mg oral tablet 2 tab, Oral, QHS ezetimibe 10 mg oral tablet 10 mg = 1 tab, Oral, Daily gabapentin 100 mg oral capsule 100 mg = 1 cap, Oral, QHS magnesium oxide 400 mg oral tablet 400 mg = 1 tab, Oral, Daily Melatonin 3 mg oral tablet, disintegrating 3 mg = 1 tab, Oral, QHS metFORMIN 500 mg oral tablet, extended release 500 mg = 1 tab, Oral, QBREAKFAST [place] 5 mg-325 mg oral tablet See Instructions, PRN pantoprazole 40 mg oral delayed release tablet 40 mg = 1 tab, Oral, Daily polyethylene glycol 3350 oral powder for reconstitution 17 gm, Oral, Daily Tylenol Extra Strength 500 mg oral tablet 500 mg = 1 tab, PRN, Oral, q6hr Discharge Precautions: - Patient was prescribed a month of medication scripts and will need to f/u with PCP for further medication prescriptions. - Patient instructed not to drive until evaluated and cleared by a physician. Discharge Status: Improved Discharge Disposition: Home Therapies on discharge: PT/OT Follow up: - The patient should follow up with their PCP within 10 days after [facility] discharge -Follow-up with Dr. Bustillos on 10/09/23 Please CC to above providers. Addendum by Nikkie CACERES, Vince Mcpherson on October 05, 2023 21:18 EDT Concur. See progress note. Medications aspirin 81 mg oral delayed release tablet 81 mg, = 1 tab, Indication: Other...See Comments Tab-EC, Oral, BID, 28 tab, 0 Refill(s), Post op KUSH DVT ppx, Route to Pharmacy Electronically, [facility], [facility], 09/25/23 15:43:00 EDT, Height/Length Dosing, cm, 84.3, 09/25/23 15:43:0... Start Date: 10/03/23 Stop Date: 10/17/23 Status: Ordered calcium-vitamin D 500 mg-5 mcg (200 intl units) oral tablet 1 tab, Oral, BID Start Date: 09/26/23 Status: Ordered docusate-senna 50 mg-8.6 mg oral tablet 2 tab, Tab, Oral, QHS, 28 tab, 0 Refill(s), Dispense: 14 day, Stop date 10/17/23 13:54:00 EDT, Route to Pharmacy Electronically, [facility], [facility], 09/25/23 15:43:00 EDT, Height/Length Dosing, cm, 84.3, 09/25/23 15:43:00 EDT, Weight D... Start Date: 10/03/23 Stop Date: 10/17/23 Status: Ordered ezetimibe 10 mg oral tablet 10 mg = 1 tab, Tab, Oral, Daily Start Date: 09/26/23 Status: Ordered gabapentin 100 mg oral capsule 100 mg, = 1 cap, Indication: Neuropathic Pain - Spinal Cap, Oral, QHS, 30 cap, 0 Refill(s), Route to Pharmacy Electronically, [facility], [address], 09/25/23 15:43:00 EDT, Height/Length Dosing, cm, 84.3, 09/25/23 15:43:00 EDT, Weight Dosi... Start Date: 10/03/23 Status: Ordered magnesium oxide 400 mg oral tablet 400 mg = 1 tab, Tab, Oral, Daily, 30 tab, 0 Refill(s), Route to Pharmacy Electronically, [facility], [address], 09/25/23 15:43:00 EDT, Height/Length Dosing, cm, 84.3, 09/25/23 15:43:00 EDT, Weight Dosing, kg Start Date: 10/03/23 Status: Ordered Melatonin 3 mg oral tablet, disintegrating 3 mg = 1 tab, Oral, QHS, 30 tab, 0 Refill(s), Route to Pharmacy Electronically, [facility], [facility], 09/25/23 15:43:00 EDT, Height/Length Dosing, cm, 84.3, 09/25/23 15:43:00 EDT, Weight Dosing, kg Start Date: 10/03/23 Status: Ordered metFORMIN 500 mg oral tablet, extended release 500 mg, = 1 tab, Indication: Hyperglycemia Tab-ER, Oral, QBREAKFAST, 30 tab, 0 Refill(s), Route to Pharmacy Electronically, [facility], [address], 09/25/23 15:43:00 EDT, Height/Length Dosing, cm, 84.3, 09/25/23 15:43:00 EDT, Weight Dosing... Start Date: 10/03/23 Status: Ordered [place] 5 mg-325 mg oral tablet See Instructions, Tab, PRN, 20 tab, 0 Refill(s), Take 1 tab q6h prn pain x2 days, then decrease to 1 tab q8h prn pain x2 days, then decrease to 1 tab q12h prn pain x2days, then decrease to 1 tab qdaily prn pain x2 days, PAIN (Scale 4- 10), Route to Pha... Start Date: 10/03/23 Status: Ordered pantoprazole 40 mg oral delayed release tablet 40 mg = 1 tab, Tab-DR, Oral, Daily, 30 tab, 0 Refill(s), Route to Pharmacy Electronically, [facility], [facility], 09/25/23 15:43:00 EDT, Height/Length Dosing, cm, 84.3, 09/25/23 15:43:00EDT, Weight Dosing, kg Start Date: 10/03/23 Status: Ordered polyethylene glycol 3350 oral powder for reconstitution 17 gm, Powder-Recon, Oral, Daily, 119 gm, 0 Refill(s), Route to Pharmacy Electronically, [facility], [address], 09/25/23 15:43:00 EDT, Height/Length Dosing, cm, 84.3, 09/25/23 15:43:00 EDT, Weight Dosing, kg Start Date: 10/03/23 Status: Ordered Tylenol Extra Strength 500 mg oral tablet 500 mg = 1 tab, Tab, Oral, q6hr PRN, 100 tab, 0 Refill(s), PAIN (Scale 1-10), Route to Pharmacy Electronically, [facility], [address], 09/25/23 15:43:00 EDT, Height/Length Dosing, cm, 84.3, 09/25/23 15:43:00 EDT, Weight Dosing, kg Start Date: 10/03/23 Status: Ordered Problem List Condition Confirmation Course Effective Dates Status H ealth Status Informant Activity tolerance Confirmed Active At risk of venous thromboembolus 1 Confirmed 09/26/23 Active Self -care deficit Confirmed Active Weakness - general Confirmed Active 1Problem added by Discern Expert Rule: [id number]_VTERISKPROB_3 Results Laboratory List Name Date Glucose, POC 10/05/23 Glucose, POC 10/04/23 Glucose, POC 10/04/23 Automated Diff [facility] 10/04/23 Complete Blood Count w/Auto Diff [facility] 09/06 Comprehensive Metabolic Panel [facility] 4 Automated Diff [facility] 10/01/23 Complete Blood Count w/Auto Diff [facility] 09/05 11/27 Comprehensive Metabolic Panel [facility] 4 Automated Diff [facility] 09/27/23 Complete Blood Count w/Auto Diff [facility] 09/05 07/28 Comprehensive Metabolic Panel [facility] 4 Magnesium [facility] 09/26/23 Phosphorus [facility] 09/26/23 Prealbumin [facility] 09/26/23 Urinalysis Complete w/Rflx Culture [facility] Most recent to oldest [Reference Range]: 1 2 3 Creatinine Level 1.00 mg/dL (10/04/23 6:47 AM) 0.90 mg/dL (10/01/23 7:00 AM) 0.90 mg/dL (09/27/23 6:26 AM) Estimated Creatinine Clearance 40.90 mL/min 1 (10/04/23 6:47 AM) 40.90 mL/min 2 (10/01/23 7:00 AM) 40.90 mL/min 3 (09/27/23 6:26 AM) Glucose POC RALS [70-180 mg/dL] 92 mg/dL (10/05/23 7:17 AM) 164 mg/dL (10/04/23 9:36 PM) 104 mg/dL (10/04/23 4:41 PM) Corrected WBC HSL [4-12 x10(3)/mcL] 8 x10(3)/mcL (10/04/23 6:47 AM) 8 x10(3)/mcL (10/01/23 7:00 AM) 7 x10(3)/mcL (09/27/23 6:26 AM) WBC HSL [4.4-11.6 10^3/uL] 7.7 10^3/uL (10/04/23 6:47 AM) 8.0 10^3/uL (10/01/23 7:00 AM) 6.9 10^3/uL (09/27/23 6:26 AM) RBC HSL [03.70-05.20 10^3/uL] 02.74 10^3/uL *LOW* (10/04/23 6:47 AM) 02.69 10^3/uL *LOW* (10/01/23 7:00 AM) 02.55 10^3/uL *LOW* (09/27/23 6:26 AM) Hemoglobin HSL [11.9-15.8 g/dL] 7.8 g/dL 4 *CRIT* (10/04/23 6:47 AM) 7.7 g/dL 5 *CRIT* (10/01/23 7:00 AM) 7.4 g/dL 6 *CRIT* (09/27/23 6:26 AM) Hematocrit HSL [34.9-46.1 %] 23.4 % *LOW* (10/04/23 6:47 AM) 23.0 % *LOW* (10/01/23 7:00 AM) 21.5 % *LOW* (09/27/23 6:26 AM) MCV HSL [78.5-102.3 fL] 85.4 fL (10/04/23 6:47 AM) 85.3 fL (10/01/23 7:00 AM) 84.6 fL (09/27/23 6:26 AM) MCH HSL [25.9-34.1 g/dL] 28.4 g/dL (10/04/23 6:47 AM) 28.5 g/dL (10/01/23 7:00 AM) 29.0 g/dL (09/27/23 6:26 AM) MCHC HSL [31.9-35.4 g/dL] 33.3 g/dL (10/04/23 6:47 AM) 33.4 g/dL (10/01/23 7:00 AM) 34.3 g/dL (09/27/23 6:26 AM) Platelet HSL [149-451 10^3/uL] 512 10^3/uL *HI* (10/04/23 6:47 AM) 498 10^3/uL *HI* (10/01/23 7:00 AM) 377 10^3/uL (09/27/23 6:26 AM) RDW-CV% HSL [11.6-14.5 %] 17.5 % *HI* (10/04/23 6:47 AM) 17.5 % *HI* (10/01/23 7:00 AM) 17.0 % *HI* (09/27/23 6:26 AM) RDW-SD HSL [36.3-46.4 fL] 52.1 fL *HI* (10/04/23 6:47 AM) 52.1 fL *HI* (10/01/23 7:00 AM) 49.9 fL *HI* (09/27/23 6:26 AM) MPV HSL [8.9-13.1 fL] 6.9 fL *LOW* (10/04/23 6:47 AM) 6.8 fL *LOW* (10/01/23 7:00 AM) 6.9 fL *LOW* (09/27/23 6:26 AM) Neutrophil Auto HSL [39.5-77.7 %] 71.5 % (10/04/23 6:47 AM) 70.4 % (10/01/23 7:00 AM) 74.4 % (09/27/23 6:26 AM) Lymphocyte Auto HSL [17.7-52.9 %] 15.3 % *LOW* (10/04/23 6:47 AM) 14.7 % *LOW* (10/01/23 7:00 AM) 10.0 % *LOW* (09/27/23 6:26 AM) Monocyte Auto HSL [2.9-10.5 %] 9.1 % (10/04/23 6:47 AM) 9.4 % (10/01/23 7:00 AM) 12.3 % *HI* (09/27/23 6:26 AM) Eosinophil Auto HSL [0.0-7.1 %] 2.9 % (10/04/23 6:47 AM) 4.4 % (10/01/23 7:00 AM) 2.2 % (09/27/23 6:26 AM) Basophil Auto HSL [0.0-9.1 %] 1.2 % (10/04/23 6:47 AM) 1.1 % (10/01/23 7:00 AM) 1.1 % (09/27/23 6:26 AM) Neutrophil Absolute HSL [1.5-7.0 10^3/uL] 5.5 10^3/uL (10/04/23 6:47 AM) 5.6 10^3/uL (10/01/23 7:00 AM) 5.1 10^3/uL (09/27/23 6:26 AM) Lymphocyte Absolute HSL [0.8-2.9 10^3/uL] 1.2 10^3/uL (10/04/23 6:47 AM) 1.2 10^3/uL (10/01/23 7:00 AM) 0.7 10^3/uL *LOW* (09/27/23 6:26 AM) Monocyte Absolute HSL [0.0-1.1 10^3/uL] 0.7 10^3/uL (10/04/23 6:47 AM) 0.7 10^3/uL (10/01/23 7:00 AM) 0.8 10^3/uL (09/27/23 6:26 AM) Eosinophil Absolute HSL [0.0-0.5 10^3/uL] 0.2 10^3/uL (10/04/23 6:47 AM) 0.3 10^3/uL (10/01/23 7:00 AM) 0.2 10^3/uL (09/27/23 6:26 AM) Basophil Absolute HSL [0.00-0.06 10^3/uL] 0.10 10^3/uL *HI* (10/04/23 6:47 AM) 0.10 10^3/uL *HI* (10/01/23 7:00 AM) 0.10 10^3/uL *HI* (09/27/23 6:26 AM) Nucleated RBC HSL 0.1 *NA* (10/04/23 6:47 AM) 0.1 *NA* (10/01/23 7:00 AM) 0.0 *NA* (09/27/23 6:26 AM) Sodium HSL [135.9-146.1 mEq/L] 132.0 mEq/L *LOW* (10/04/23 6:47 AM) 132.0 mEq/L *LOW* (10/01/23 7:00 AM) 128.0 mEq/L *LOW* (09/27/23 6:26 AM) Potassium HSL [3.4-4.6 mEq/L] 4.4 mEq/L (10/04/23 6:47 AM) 4.8 mEq/L *HI* (10/01/23 7:00 AM) 4.5 mEq/L (09/27/23 6:26 AM) Chloride HSL [95.9-106.1 mEq/L] 97.0 mEq/L (10/04/23 6:47 AM) 97.0 mEq/L (10/01/23 7:00 AM) 96.0 mEq/L (09/27/23 6:26 AM) Carbon Dioxide HSL [21.9-29.1 mEq/L] 31.0 mEq/L *HI* (10/04/23 6:47 AM) 30.0 mEq/L *HI* (10/01/23 7:00 AM) 29.0 mEq/L (09/27/23 6:26 AM) Anion Gap HSL [8-16 mmol/L] 8 mmol/L (10/04/23 6:47 AM) 10 mmol/L (10/01/23 7:00 AM) 8 mmol/L (09/27/23 6:26 AM) Glucose HSL [74.9-115.1 mg/dL] 85.0 mg/dL (10/04/23 6:47 AM) 91.0 mg/dL (10/01/23 7:00 AM) 110.0 mg/dL (09/27/23 6:26 AM) BUN HSL [10.9-23.1 mg/dL] 26.0 mg/dL *HI* (10/04/23 6:47 AM) 23.0 mg/dL (10/01/23 7:00 AM) 28.0 mg/dL *HI* (09/27/23 6:26 AM) Creatinine HSL [0.6-1.6 mg/dL] 1.0 mg/dL (10/04/23 6:47 AM) 0.9 mg/dL (10/01/23 7:00 AM) 0.9 mg/dL (09/27/23 6:26 AM) eGFR-AA HSL 113 *NA* (10/04/23 6:47 AM) 125 *NA* (10/01/23 7:00 AM) 127 *NA* (09/27/23 6:26 AM) eGFR-Non AA HSL 94 *NA* (10/04/23 6:47 AM) 104 *NA* (10/01/23 7:00 AM) 105 *NA* (09/27/23 6:26 AM) BUN/Creat Ratio HSL [5-20 ratio] 26 ratio *HI* (10/04/23 6:47 AM) 26 ratio *HI* (10/01/23 7:00 AM) 31 ratio *HI* (09/27/23 6:26 AM) Calcium Total HSL [8.9-11.1 mg/dL] 8.1 mg/dL *LOW* (10/04/23 6:47 AM) 8.3 mg/dL *LOW* (10/01/23 7:00 AM) 7.9 mg/dL *LOW* (09/27/23 6:26 AM) Albumin HSL [3.4-5.1 g/dL] 2.8 g/dL *LOW* (10/04/23 6:47 AM) 2.8 g/dL *LOW* (10/01/23 7:00 AM) 2.7 g/dL *LOW* (09/27/23 6:26 AM) Prealbumin HSL [14.9-36.1 mg/dL] 13.1 mg/dL *LOW* (09/26/23 5:52 AM) Protein Total HSL [5.9-8.4 g/dL] 4.7 g/dL *LOW* (10/04/23 6:47 AM) 4.8 g/dL *LOW* (10/01/23 7:00 AM) 4.4 g/dL *LOW* (09/27/23 6:26 AM) Bilirubin Total HSL [0.1-1.4 mg/dL] 0.4 mg/dL (10/04/23 6:47 AM) 0.4 mg/dL (10/01/23 7:00 AM) 0.5 mg/dL (09/27/23 6:26 AM) Magnesium HSL [1.6-2.3 mg/dL] 1.7 mg/dL (09/26/23 5:52 AM) Phosphorus HSL [3.3-4.6 mg/dL] 3.2 mg/dL *LOW* (09/26/23 5:52 AM) Alkaline Phosphatase HSL [19.9-90.1 IU/L] 95.0 IU/L *HI* (10/04/23 6:47 AM) 85.0 IU/L (10/01/23 7:00 AM) 77.0 IU/L (09/27/23 6:26 AM) AST HSL [9.9-59.1 IU/L] 13.0 IU/L (10/04/23 6:47 AM) 15.0 IU/L (10/01/23 7:00 AM) 17.0 IU/L (09/27/23 6:26 AM) ALT HSL [9.9-40.1 IU/L] 9.0 IU/L *LOW* (10/04/23 6:47 AM) 10.0 IU/L (10/01/23 7:00 AM) 9.0 IU/L *LOW* (09/27/23 6:26 AM) Appearance UR HSL Clear *NA* (09/25/23 8:15 PM) Color UR HSL YELLOW *NA* (09/25/23 8:15 PM) Specific [employer] UR HSL [1.005-1.030] 1.025 (09/25/23 8:15 PM) pH UR HSL [5.0-7.5] 6.0 (09/25/23 8:15 PM) Glucose UR HSL [Neg] Neg (09/25/23 8:15 PM) Bilirubin UR HSL Neg (09/25/23 8:15 PM) Ketones UR HSL [Neg] Neg (09/25/23 8:15 PM) Blood UR HSL [Neg] Neg *NA* (09/25/23 8:15 PM) Protein UR HSL [Neg] Neg *NA* (09/25/23 8:15 PM) Urobilinogen UR HSL 2+ mg/dL *NA* (09/25/23 8:15 PM) Nitrite UR HSL [Neg] Nitrite Neg *NA* (09/25/23 8:15 PM) Leukocyte Esterase UR HSL [Neg] 25 (09/25/23 8:15 PM) Squamous Epithelials UR HSL [0-5] 0-5 (09/25/23 8:15 PM) Bacteria UR HSL [None Seen] None Seen (09/25/23 8:15 PM) WBC UR HSL [None Seen /HPF] Rare /HPF (09/25/23 8:15 PM) RBC UR HSL [None Seen] None Seen (09/25/23 8:15 PM) Specimen Source UR HSL Clean Catch (09/25/23 8:15 PM) Blood Glucose, Capillary [70-180 mg/dL] 86 mg/dL (10/04/23 8:50 AM) 1Result Comment: Calculated using method: Cockcroft-Gault (default) Calculated using Formula : 0.85*(140-ageInYears)*IBW/(72*scrInMGperDL) Age: 88 ([id number]) Serum Creatinine: 1.00 mg/dL (22165453955.0) Height: 173 cm (60235422834.0) Weight: 84.3 kg (IBW = 64.154 kg) 2Result Comment: Calculated using method: Cockcroft-Gault (default) Calculated using Formula : 0.85*(140-ageInYears)*IBW/(72) Age: 88 ([id number]) Serum Creatinine: 0.90 mg/dL (10801220721.0) Height: 173 cm (46191264884.0) Weight: 84.3 kg (IBW = 64.154 kg) 3Result Comment: Calculated using method: Cockcroft-Gault (default) Calculated using Formula : 0.85*(140-ageInYears)*IBW/(72) Age: 88 (07227669434.0) Serum Creatinine: 0.90 mg/dL (47010956998.0) Height: 173 cm (67044638539.0) Weight: 84.3 kg (IBW = 64.154 kg) 4Result Comment: Critical called to Dr Edis HORTON 10/04/2023 08:51:38 EDT DG 5Result Comment: Critical called to Dr Edis HORTON 10/01/2023 09:16:20 EDT DG 6Result Comment: Critical result called to and RBV by Dr. Russell 09/27/2023 10:23:12 EDT by [facility] Vital Signs Most recent to oldest [Reference Range]: 1 2 3 Temperature Oral F [96.4-99.1 DegF] 97.7 DegF (10/05/23 7:46 AM) 98.1 DegF (10/04/23 8:19 PM) 97.7 DegF (10/04/23 7:21 AM) Peripheral Pulse Rate [60-100 bpm] 75 bpm (10/05/23 7:47 AM) 82 bpm (10/04/23 8:19 PM) 69 bpm (10/04/23 7:21 AM) Respiratory Rate [14-20 br/min] 18 br/min (10/05/23 7:47 AM) 18 br/min (10/04/23 7:21 AM) 16 br/min (10/03/23 7:17 AM) Blood Pressure [90-140/60-90 mmHg] 128/73mmHg (10/05/23 7:46 AM) 128/66mmHg (10/04/23 8:18 PM) 128/69mmHg (10/04/23 7:21 AM) Mean Arterial Pressure, Cuff 92 mmHg (10/05/23 7:46 AM) 87 mmHg (10/04/23 8:18 PM) 89 mmHg (10/04/23 7:21 AM) Extremity used to obtain blood pressure Right Arm (09/27/23 6:59 AM) Right Arm (09/26/23 10:46 PM) Cuff Size. Medium (09/27/23 6:59 AM) Medium (09/26/23 10:46 PM) Temperature Oral 36.5 DegC 1 (10/05/23 7:46 AM) 36.7 DegC 2 (10/04/23 8:19 PM) 36.5 DegC 3 (10/04/23 7:21 AM) 1Result Comment: Charted by SYSTEM secondary to charting of Temperature Oral F on a Vitals Monitor. Rule: VITALSLINK_CALCULATIONS_2 2Result Comment: Charted by SYSTEM secondary to charting of Temperature Oral F on a Vitals Monitor. Rule: VITALSLINK_CALCULATIONS_2 3Result Comment: Charted by SYSTEM secondary to charting of Temperature Oral F on a Vitals Monitor. Rule: VITALSLINK_CALCULATIONS_2 Patient Care team information Personnel Name: Betsy Smith
[2023-11-07 15:45] LABS: Basophils # 0.1 K/mm3 (0-0.2); Basophils % 1.2 % (0.1-2.0); Eosinophils # 0.1 K/mm3 (0.0-0.4); Eosinophils % 1.6 % (0.1-12.0); Hemoglobin 10.8 g/dL (12.2-16.2); Lymphocytes # 1.5 K/mm3 (0.7-4.5); Lymphocytes % 26.1 % (10-50); Mean Corpuscular HGB Conc 32.6 g/dL (31.8-35.4); Mean Corpuscular Hemoglobin 26.9 pg (27.0-31.2); Mean Corpuscular Volume 82.6 fl (81-99); Monocytes # 0.5 K/mm3 (0.1-1.0); Neutrophils # 3.5 K/mm3 (1.8-7.8); Neutrophils % 62.1 % (37.0-80.0); Platelet Count 488 K/mm3 (142-424); Red Blood Count 3.99 M/mm3 (4.20-5.40); Red Cell Distribution Width 15.7 % (11.5-17.5); White Blood Count 5.6 K/mm3 (4.8-10.8)
[2023-11-07 16:32] LABS: Anion Gap 13.6 mEq/L (5-15); Blood Urea Nitrogen 22 mg/dl (7-17); Carbon Dioxide 29 mmol/L (22.0-30.0); Chloride 93 mmol/L (98-107); Estimated Glomerular Filt Rate 53 ml/min (>60); GFR (African American) 64 ML/MIN (>60); Glucose 89 mg/dl (74-100); Potassium 4.6 mmoL/L (3.5-5.1); Sodium 131 mmol/L (136-145)
[2023-11-07 16:59] LABS: Hemoglobin A1C 5.5 % (4.0-6.0)
== END 2023-11-07 23:59 | disposition home or self-care (01) ==
PROVIDERS: PCP Internal Medicine; Visit Provider Family Medicine
DX: D64.9 Anemia, unspecified (principal); E11.22 Type 2 diabetes mellitus with diabetic chronic kidney disease; E87.1 Hypo-osmolality and hyponatremia; N18.32 Chronic kidney disease, stage 3b
CPT/HCPCS: 36415; 80048; 83036; 85025

== ENCOUNTER 2023-11-20 08:00 | Outpatient (RCR) | payer MEDICARE, BC, SELFPAY | END 2023-11-20 08:05 | disposition home or self-care (01) | LOC: PT 08:00 | PROVIDERS: Visit Provider Physical Medicine & Rehabilitation | DX: M25.552 Pain in left hip (principal) | CPT/HCPCS: 97010; 97014; 97110; 97116; 97140; 97163; 97164; G0283 ==

== ENCOUNTER 2024-02-22 10:26 | Outpatient (CLI) | payer MEDICARE, BC, SELFPAY ==
[2024-02-22 11:21] LABS: Anion Gap 9.6 mEq/L (5-15); Blood Urea Nitrogen 26 mg/dl (7-17); Calcium 9.8 mg/dl (8.4-10.2); Carbon Dioxide 29 mmol/L (22.0-30.0); Chloride 99 mmol/L (98-107); Estimated Glomerular Filt Rate 59 ml/min (>60); GFR (African American) 72 ML/MIN (>60); Glucose 133 mg/dl (74-100); Potassium 4.6 mmoL/L (3.5-5.1); Sodium 133 mmol/L (136-145)
== END 2024-02-22 23:59 | disposition home or self-care (01) ==
LOC: LAB 10:29
PROVIDERS: PCP Internal Medicine; Visit Provider Internal Medicine
DX: N18.31 Chronic kidney disease, stage 3a (principal); E87.1 Hypo-osmolality and hyponatremia
CPT/HCPCS: 36415; 80048

== ENCOUNTER 2024-03-25 02:37 | Emergency (ER) | payer MEDICARE, BC, SELFPAY ==
[2024-03-25 02:39] VITALS: BP 179/110; PULSE 96; RESP 16; TEMP 36.7; O2SAT 98; BMI 21.8
--- OUTSIDE RECORDS SUMMARY | 2024-03-25 02:45 | XMS_ITS | Encounter Summary ---
Author Organization Healthcare Address [address] [place] [address] Care Team Providers Care Any Commodity Sales Deliverer Name Role Phone Betsy Smith Primary Care Provider [phone] Reason for Visit * Reason Comments Post-op Encounter Details Date Type Department Care Team ([facility] st Contact Info) Description 10/09/2023 10:30 AM EDT Office Visit Medical Office Building Surgery Sp[facility] & [facility] [address], [address] [place] [address] Griffin Bustillos MD [address] [place] [address] Status post total replacement of left hip (Primary Dx) Social History Tobacco Use Types Packs/Day Years Used Date Smoking Tobacco: Never Passive Smoke Exposure: Never Smokeless Tobacco: Never Alcohol Use Standard Drinks/Week Comments Never 0 (1 standard drink = 0.6 oz pur e alcohol) CAGE ASSESSMENT Answer Date Recorded Cage unable to access Not on file 09/19/2023 Cage max number of drinks Not on file 2023 Cage Beverages a week Not on file 09/19/2023 Have you ever felt you should CUT down on your d rinking? 0 09/19/2023 Have you been ANNOYED by people criticizing your drinking? 0 09/19/2023 Have you felt GUILTY about your drinking? 0 09/19/2023 Have you had a drink first t dahlia in the morning (EYE-CEREAL POPPER) to steady your nerves or to get rid of a hangover? 0 09/19/2023 CAGE Questionnaire Score 0 024 Comments No Sex and Gender Information Value Date Recorded Sex Assigned at Female 09/19/2023 2:35 PM EDT Legal Sex Female 6:57 PM EDT Gender Identity Female 09/19/2023 2:35 PM EDT Sexual Orientation Straight 09/19/2023 2: 35 PM EDT documented as of this encounter Miscellaneous Notes * Progress Notes - Ag Boston MD - 10/09/2023 10:30 AM EDT ORTHOPEDIC Oncology FOLLOWUP NOTE Interval History: Patient returns to clinic for her postoperative check. She has had some occasional drainage and swelling about her left hip. She has not actively having any drainage at this time. She was at [facility] until last Sunday. She then was discharged home. She has not been using a hip abduction pillow since prior to leaving the hospital. At [facility] they used just a regular pillow between her legs. She has not been using a knee immobilizer and does not have the knee immobilizer. She does still have her hip abduction pillow. She has been able to walk with walker. Exam: Left lower extremity: Incision well approximated with altagracia in place Swelling over the hip but no drainage Non erythematous skin Edema of the extremity up to the thigh Able to stand up and ambulate Dorsiflexion plantar flexion intact Grossly neurovascularly intact My independent interpretation of radiographic testing shows: none obtained Notes reviewed: Prior operative report reviewed Results of tests reviewed: previous radiographs Assessment and plan: Status post total replacement of left hip Orders Placed This Encounter XR Hip Left 2 or 3 Views No follow-ups on file. Patient has not been wearing her hip abduction pillow or knee immobilizer at night. We discussed this and the risk for dislocation. She was in agreement to wear it at night. We discussed that she likely developed postoperative swelling secondary to hematoma. At this time she has not have any drainage or any signs of infection. Altagracia were removed. We will see her again in 6 weeks with left hip radiographs. Continue hip precautions until that time. Cosigned by Griffin Bustillos MD at 10/09/2023 10:41 AM EDT Associated attestation - Griffin Bustillos MD - 10/09/2023 10:41 AM EDT I saw and evaluated the patient with the resident/fellow. I discussed the case with the resident/fellow and agree with the findings and plan as documented. documented in this encounter Plan of Treatment Upcoming Encounters Date Type Department Care Team (Late st Contact Info) Description 03/03/2025 1:30 PM EDT Office Visit Medical Office Building Surgery [facility] [address], [address] [place] [address] Griffin Bustillos MD [address] [place] [address] documented as of this encounter Results * XR Hip Left 2 or 3 Views (02/26/2024 1:12 PM EDT) Anatomical Region Laterality Modality Lower Extremities, Hip Left Digital R adiography Impressions 02/26/2024 2:26 PM EDT No evidence of hardware failure. CRITICAL RESULT: ?? No. COMMUNICATION: Per this written report. By electronically signing this report, I, the attending physician, attest that I have personally reviewed the images/data for the above examination(s) and agree with the final edited report. Drafted by Boyd Landaverde M.D. on 02/26/2024 1:31 PM Final report signed by Minh Rod MD on 02/26/2024 2:26 PM Narrative 02/26/2024 2:26 PM EDT CLINICAL INDICATION: pain TECHNIQUE: XR HIP LEFT 2 OR 3 VIEWS COMPARISON: 11/20/2023 FINDINGS: Overlying bowel gas and soft tissue obscures fine bony detail. Demineralization of the pelvis. Prior total left hip arthroplasty without evidence of hardware loosening or failure. No acute fracture or dislocation. Mild right hip osteoarthrosis. Pubic symphysis and SI joints are intact. Demineralization. Procedure Note Minh Rod MD - 02/26/2024 CLINICAL INDICATION: pain TECHNIQUE: XR HIP LEFT 2 OR 3 VIEWS COMPARISON: 11/20/2023 FINDINGS: Overlying bowel gas and soft tissue obscures fine bony detail.Demineralization of the pelvis. Prior total left hip arthroplasty withoutevidence of hardware loosening or failure. No acute fracture ordislocation. Mild right hip osteoarthrosis. Pubic symphysis and SI jointsare intact. Demineralization. IMPRESSION: No evidence of hardware failure. CRITICAL RESULT: No. COMMUNICATION: Per this written report. By electronically signing this report, I, the attending physician, attestebanthat I have personally reviewed the images/data for the aboveexamination(s) and agree with the final edited report. Drafted by Boyd Landaverde M.D. on 02/26/2024 1:31 PM Final report signed by Minh Rod MD on 02/26/2024 2:26 PM us Griffin Bustillos MD IMG XR PROCEDURES Final R esult documented in this encounter Visit Diagnoses Diagnosis Status post total replacement of left hip- Primary Status post total replacement of left hip documented in this encounter Additional Health Concerns Assessment Noted Time A fall risk assessment has been complete d for the patient 10/09/2023 10:21 AM EDT A Body Mass Index follow-up plan has been documented for the patient 10/09/2023 11:14 AM EDT documented as of this encounter Care Teams Any Commodity Sales Deliverer Relationship Specialty Start Date End Date Betsy Smith [address] [place] [address] PCP - General 06/13/23 documented as of this encounter
--- OUTSIDE RECORDS SUMMARY | 2024-03-25 02:45 | XMS_ITS | Encounter Summary ---
Author Organization Healthcare Address [address] [place] [address] Care Team Providers Care Bread And Pastry Baker Name Role Phone Betsy Smith Primary Care Provider [phone] Reason for Visit * Reason Comments Follow-up Encounter Details Date Type Department Care Team ([facility] st Contact Info) Description 02/26/2024 1:30 PM EDT Office Visit Medical Office Building Surgery Spine & Joint [address], [address] [place] [address] Griffin Bustillos MD [address] [place] [address] Hip pain, left (Primary Dx) Social History Tobacco Use Types Packs/Day Years Used Date Smoking Tobacco: Never Passive Smoke Exposure: Never Smokeless Tobacco: Never Tobacco Cessation:Counseling Given: Not Answered Alcohol Use Standard Drinks/Week Comments Never 0 [...] drink first t dahlia in the morning (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 0 09/19/2023 CAGE Questionnaire Score 0 024 Comments No Sex and Gender Information Value Date Recorded Sex Assigned at Female 09/19/2023 2:35 PM EDT Legal Sex Female 6:57 PM EDT Gender Identity Female 09/19/2023 2:35 PM EDT Sexual Orientation Straight 09/19/2023 2: 35 PM EDT documented as of this encounter Last Filed Vital Signs Vital Sign Reading Time Taken Comments Blood Pressure - - Pulse - - Temperature - - Respiratory Rate - - Oxygen Saturation - - Inhaled Oxygen Concentration - - Weight 67.3 kg (148 lb 5.9 oz) 02/26/2024 1:20 P M EDT Height 172.7 cm (5' 8 ) 02/26/2024 1:20 PM EDT Body Mass Index 22.56 02/26/2024 1:20 PM EDT documented in this encounter Miscellaneous Notes * Progress Notes - Sergo Christensen MD - 02/26/2024 1:30 PM EDT ORTHOPEDIC SURGERY FOLLOW-UP NOTE Interval History: Patient returns to clinic for her postoperative check 6 months status post left total arthroplasty 09/19/2023. She was doing very well. She continues to ambulate with a cane although state she uses it mostly for confidence and reassurance. She presents today with her son. She states she was doing very well. She has no pain. She was returned to going to [facility] in his very happy with the results of her surgery. Exam: Left lower extremity: Incision well approximated with altagracia in place Swelling over the hip but no drainage Non erythematous skin Edema of the extremity up to the thigh Able to stand up and ambulate Dorsiflexion plantar flexion intact Grossly neurovascularly intact My independent interpretation of radiographic testing shows: AP radiographs pelvis and lateral hip radiographs demonstrate implants in place without failure. No fracture Notes reviewed: Prior operative report reviewed Results of tests reviewed: previous radiographs Assessment and plan: Hip pain, left Orders Placed This Encounter XR Hip Left 2 or 3 Views No follow-ups on file. Patient is doing very well. She is status post left total hip arthroplasty. Pain is controlled. Shewas ambulated with a cane. She was returned to being gone very happy. We will see her 1 year postop. Sergo Christensen MD Cosigned by Griffin Bustillos MD at 02/26/2024 2:15 PM EDT Associated attestation - Griffin Bustillos MD - 02/26/2024 2:15 PM EDT I saw and evaluated the patient with the resident/fellow. I discussed the case with the resident/fellow and agree with the findings and plan as documented. documented in this encounter Plan of Treatment Upcoming Encounters Date Type Department Care Team (Late st Contact Info) Description 03/03/2025 1:30 PM EDT Office Visit Medical Office Building Surgery [facility] [address], [address] [place] [address] Griffin Bustillos MD [address] [place] [address] Scheduled Orders Name Type Priority Associated Diagnoses Orde r Schedule XR Hip Left 2 or 3 Views Imaging Routine Hip pain, left 1 Occurrences starting 02/18/2024 until 08/18/2025 documented as of this encounter Visit Diagnoses Diagnosis Hip pain, left- Primary Pain in joint, pelvic region and thigh documented in this encounter Additional Health Concerns Assessment Noted Time A fall risk assessment has been complete d for the patient 02/26/2024 1:17 PM EDT A Body Mass Index follow-up plan has been documented for the patient 02/26/2024 2:15 PM EDT documented as of this encounter Care Teams Bread And Pastry Baker Relationship Specialty Start Date End Date Betsy Smith [address] [place] [address] PCP - General 06/13/23 documented as of this encounter
--- OUTSIDE RECORDS SUMMARY | 2024-03-25 02:45 | XMS_ITS | Encounter Summary ---
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 0 09/19/2023 CAGE Questionnaire Score 0 024 Comments No Sex and Gender Information Value Date Recorded Sex Assigned at Female 09/19/2023 2:35 PM EDT Legal Sex Female 6:57 PM EDT Gender Identity Female 09/19/2023 2:35 PM EDT Sexual Orientation Straight 09/19/2023 2: 35 PM EDT documented as of this encounter Medications at Time of Discharge acetaminophen (Tylenol) 500 MG tablet Take 1 tablet (500 mg) by mouth every 6 (six) hours. 09/25/2023 alendronate (Fosamax) 70 MG tablet Take 1 tablet (70 mg) by mouth 1 (one) time per week. Takes on Sunday CALCIUM-VITAMIN D PO Take 1 tablet by mouth 2 (two) times a day. ezetimibe (Zetia) 10 MG tablet Take 1 tablet (10 mg) by mouth Daily. fexofenadine (Meena) 180 MG tablet Take 1 tablet (180 mg) by mouth 1 (one) time each day. HYDROcodone-acetam inophen ([place]) 5-325 MG tablet Take 1 tablet (5 mg of hydrocodone) by mouth every 6 (six) hours if needed for severe pain. 09/25/2023 Melatonin [address] 3 mg under the tongue 1 (one) time each day. metFORMIN XR (Glucophage-XR) 750 MG 24 hr tablet Take 2 tablets (1,500 mg) by mouth 1 (one) time each day. 06/05/2023 omeprazole (PriLOSEC) [address] capsule Take 1 capsule (40 mg) by mouth 1 (one) time each day if needed. documented as of this encounter Plan of Treatment Upcoming Encounters Date Type Department Care Team (Late st Contact Info) Description 03/03/2025 1:30 PM EDT Office Visit Medical Office Building Surgery Sp[facility] [address] [place] [address] Griffin Bustilols MD [address] [place] [address] documented as of this encounter Procedures Procedure Name Priority Date/Time Associated Diagnosis Comments XR PELVIS 1 OR 2 VIEWS Routine 11/20/2023 12:54 PM EDT Hip pain, left documented in this encounter Results * 6-Week Post-Op: XR Pelvis (AP Standing) (11/20/2023 12:54 PM EDT) Anatomical Region Laterality Modality Body, Pelvis Digital Radiogra phy Impressions 11/20/2023 1:18 PM EDT Postsurgical changes in the left hip as above described, without hardware complications. CRITICAL RESULT: ?? No. COMMUNICATION: Per this written report. Drafted by Roney Rodriguez MD on 11/20/2023 1:16 PM Final report signed by Roney Rodriguez MD on 11/20/2023 1:18 PM Narrative 11/20/2023 1:18 PM EDT CLINICAL INDICATION: post-op TECHNIQUE: XR PELVIS 1 OR 2 VIEWS COMPARISON: September 19, 2023 FINDINGS: Single view was provided. Overlying soft tissue limits evaluation of the left hip. Overlying bowel gas limits evaluation of the sacrum and lower lumbar spine. Redemonstration of left total hip replacement with proximal femoral cerclage wire. No hardware complications. Unchanged cystic changes in the acetabulum. There are enthesophytes in the periventricular in the greater and lesser femoral trochanters. Procedure Note Roney Mendez MD - 11/20/2023 CLINICAL INDICATION: post-op TECHNIQUE: XR PELVIS 1 OR 2 VIEWS COMPARISON: September 19, 2023 FINDINGS: Single view was provided. Overlying soft tissue limits evaluation of the left hip. Overlying bowel gas limits evaluation of the sacrum and lower lumbarspine. Redemonstration of left total hip replacement with proximal femoralcerclage wire. No hardware complications. Unchanged cystic changes in theacetabulum. There are enthesophytes in the periventricular in the greaterand lesser femoral trochanters. IMPRESSION: Postsurgical changes in the left hip as above described, without hardwarecomplications. CRITICAL RESULT: No. COMMUNICATION: Per this written report. Drafted by Roney Rodriguez MD on 11/20/2023 1:16 PM Final report signed by Roney Rodriguez MD on 7/16/08256:18 PM us Griffin Bustillos MD IMG XR PROCEDURES Final R esult documented in this encounter Visit Diagnoses Diagnosis Hip pain, left Pain in joint, pelvic region and thigh documented in this encounter Additional Health Concerns Assessment Noted Time A fall risk assessment has been complete d for the patient 11/20/2023 1:04 PM EDT A Body Mass Index follow-up plan has been documented for the patient 11/20/2023 1:58 PM EDT documented as of this encounter Care Teams Plumbing Manager Relationship Specialty Start Date End Date Betsy Smith [address] [facility] [address] [place] [address] PCP - General 06/13/23 documented as of this encounter
--- OUTSIDE RECORDS SUMMARY | 2024-03-25 02:45 | XMS_ITS | Encounter Summary ---
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 0 09/19/2023 CAGE Questionnaire Score 0 024 Comments No Sex and Gender Information Value Date Recorded Sex Assigned at Female 09/19/2023 2:35 PM EDT Legal Sex Female 6:57 PM EDT Gender Identity Female 09/19/2023 2:35 PM EDT Sexual Orientation Straight 09/19/2023 2: 35 PM EDT documented as of this encounter Plan of Treatment Upcoming Encounters Date Type Department Care Team (Late st Contact Info) Description 03/03/2025 1:30 PM EDT Office Visit Medical Office Building Surgery [facility] [address], [address] [place] [address] Griffin Bustillos MD [address] [place] [address] documented as of this encounter Visit Diagnoses Not on filedocumented in this encounter Additional Health Concerns Assessment Noted Time A fall risk assessment has been complete d for the patient 10/09/2023 10:21 AM EDT A Body Mass Index follow-up plan has been documented for the patient 10/09/2023 11:14 AM EDT documented as of this encounter Care Teams Director Child Relationship Specialty Start Date End Date Betsy Smith [address] [facility] [address] [place] [address] PCP - General 06/13/23 documented as of this encounter
--- OUTSIDE RECORDS SUMMARY | 2024-03-25 02:45 | XMS_ITS | Encounter Summary ---
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) to steady your nerves or to get [...] Building Surgery Sp[facility] [address], [address] [place] [address] Griffin Bustillos MD [address] [place] [address] documented as of this encounter Visit Diagnoses Not on filedocumented in this encounter Additional Health Concerns Assessment Noted Time A fall risk assessment has been complete d for the patient 02/26/2024 1:17 PM EDT A Body Mass Index follow-up plan has been documented for the patient 02/26/2024 2:15 PM EDT documented as of this encounter Care Teams Engineering Teacher Relationship Specialty Start Date End Date Betsy Smith [address] [facility] [address] [place] [address] PCP - General 06/13/23 documented as of this encounter
--- OUTSIDE RECORDS SUMMARY | 2024-03-25 02:45 | XMS_ITS | Clinical Summary ---
Author Organization [facility] [place] Address [address] [place] [address] Care Team Providers Care Client Services Account Manager Name Role Phone Betsy Smith Primary Care Provider [phone] Allergies No known active allergies Medications metFORMIN XR (Glucophage-XR) 750 MG 24 hr tablet Take 2 tablets (1,500 mg) by mouth 1 (one) time each day. 06/05/2023 Active alendronate (Fosamax) 70 MG tablet Take 1 tablet (70 mg) by mouth 1 (one) time per week. Takes on Sunday Active ezetimibe (Zetia) 10 MG tablet Take 1 tablet (10 mg) by mouth Daily. Active omeprazole (PriLOSEC) [address] capsule Take 1 capsule (40 mg) by mouth 1 (one) time each day if needed. Active CALCIUM-VITAMIN D PO Take 1 tablet by mouth 2 (two) times a day. Active fexofenadine (Meena) 180 MG tablet Take 1 tablet (180 mg) by mouth 1 (one) time each day. Active acetaminophen (Tylenol) 500 MG tablet Take 1 tablet (500 mg) by mouth every 6 (six) hours. 09/25/2023 Active HYDROcodone-acet aminophen ([place]) 5-325 MG tablet Take 1 tablet (5 mg of hydrocodone) by mouth every 6 (six) hours if needed for severe pain. 09/25/2023 Active Melatonin [address] 3 mg under the tongue 1 (one) time each day. Active Active Problems Problem Noted Date Diagnosed Date Hip pain, left 08/14/2023 Encounters Date Type Department Care Team Description 02/26/2024 1:30 PM EDT Office Visit Medical Office Building Surgery Spine & [facility] [address], [address] [place] [address] Griffin Bustillos MD Hip pain, left (Primary Dx) 02/26/2024 1:00 PM EDT - 02/26/2024 11:59 PM EDT Hospital Encounter Medical Office Building Radiology [address] [place] [address] Status post total replacement of left hip Discharge Disposition: Home or Self Care 02/26/2024 Travel from Last 3 Months Family History Medical History Relation Name Comments Hypertension Mother Lung cancer Sister Anesthesia problems Neg Hx Malig Hyperthermia Neg Hx Relation Name Status Comments Mother Sister Social History Tobacco Use Types Packs/Day Years [...] drink first t dahlia in the 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 0 09/19/2023 CAGE Questionnaire Score 0 024 Comments No Sex and Gender Information Value Date Recorded Sex Assigned at Female 09/19/2023 2:35 PM EDT Legal Sex Female 6:57 PM EDT Gender Identity Female 09/19/2023 2:35 PM EDT Sexual Orientation Straight 09/19/2023 2: 35 PM EDT Last Filed Vital Signs Vital Sign Reading Time Taken Comments Blood Pressure 174/74 11/20/2023 1:07 PM EDT Pulse 73 11/20/2023 1:07 PM EDT Temperature 36.4 ??C (97.5 ??F) 09/25/2023 11:45 AM E DT Respiratory Rate 17 09/25/2023 2:23 AM EDT Oxygen Saturation 98% 11/20/2023 1:07 PM EDT Inhaled Oxygen Concentration - - Weight 67.3 kg (148 lb 5.9 oz) 02/26/2024 1:20 P M EDT Height 172.7 cm (5' 8 ) 02/26/2024 1:20 PM EDT Body Mass Index 22.56 02/26/2024 1:20 PM EDT Plan of Treatment Upcoming Encounters Date Type Department Care Team (Late st Contact Info) Description 03/03/2025 1:30 PM EDT Office Visit Medical Office Building Surgery Spine [facility] [address], [address] [place] [address] Griffin Bustillos MD [address] [facility] [address] [place] [address] Health Maintenance Due Date Last Done Comments [facility]-Depression Screening 1937 [facility]-Infant/Child/Adol SDOH Screenings 1935 Diabetes: Dental Exam 1947 [facility]- SDOH Screenings 1955 [facility]-Adult SDOH Screenings 1953 [facility]-Zoster Vaccines (1 of 2) 11/19/2008 09/24/2008 [facility]-Bone Density Scan 11/17/2023 11/16/2022 , 11/16/2022, 06/30/2019, Additional history exists [facility]-Diabetes: Hemoglobin A1C 03/03/2024 09/04/2023, 06/28/2023, 03/14/2021, Additional history exists [facility]-PAOVL-51 Vaccine ( season) 2024 01/18/2024, 06/28/2023, 09/22/2022, Additional history exists [facility]-Medicare Annual Wellness (AWV) 06/05/2024 06/05/2023, 03/24/2022, 03/21/2021, Additional history exists [facility]-DTaP,Tdap,and Td Vaccines (2 - Td or Tdap) 05/26/2030 05/26/2020 [facility]-Pneumococcal Vaccine: 65+ Years Completed 02/12/2015, 03/30/2010 [facility]-Hepatitis A Vaccines Aged Out 08/16/2018, 12/2017 No longer eligible based on patient's age to complete this topic [facility]-RSV Vaccine: 60+ Years or Completed 07/02/2023 [facility]-Influenza Vaccine Completed 01/18/2024 , 03/15/2023, 04/05/2022, Additional history exists [facility]-HIB Vaccines Aged Out No longer e ligible based on patient's age to complete this topic [facility]-HPV Vaccines Aged Out No longer e ligible based on patient's age to complete this topic [facility]-IPV Vaccines Aged Out No longer e ligible based on patient's age to complete this topic [facility]-Rotavirus Vaccines Aged Out No lo nger eligible based on patient's age to complete this topic Medical Devices Implanted Type Area Wastewater Analyst Lab Analyst Device Identifier Shelf Expiration Date Model / Serial / Lot [facility] Cable D-M 2.0mm Beaded Set - [id number] Implanted:Qty: 1 on 09/19/2023 by Griffin Bustillos MD at [facility] Cable Left: Hip [employer] ([facility])-[id number] 12/18/2027 [id number] / / [id number] Shell Trident Ii Cluster 52mm - [id number] Implanted:Qty: 1 on 09/19/2023 by Griffin Bustillos MD at [facility] Hip Left: Hip [employer] ([facility])-1391 68 08/21/2028 [id number] / / [id number] Hip Size 6 Accolade Ii 127 Deg - [id number] Implanted:Qty: 1 on 09/19/2023 by Griffin Bustillos MD at [facility] Hip Left: Hip [employer] [facility][id number] 68 04/04/2027 [id number] / / [id number] Chg Head Delta V-40 Ceramic 36 - [id number] Implanted:Qty: 1 on 09/19/2023 by Griffin Bustillos MD at [facility] Hip Left: Hip [employer] ([facility])-139 68 03/26/2028 [id number] / / [id number] Liner Trident X3 10deg 36 Mm Id 5.9 Mm - [id number] Implanted:Qty: 1 on 09/19/2023 by Griffin Bustillos MD at [facility] Liner Left: Hip [employer] ([facility])-139 68 06/30/2028 [id number] / / [id number] Screw 6.5mm Trident Low Profile Hex 25mm - [id number] Implanted:Qty: 1 on 09/19/2023 by Griffin Bustillos MD at [facility] Screw Left: Hip [employer] ([facility])-139 68 07/11/2028 [id number] / / [facility] Procedures Procedure Name Priority Date/Time Associated Diagnosis Comments XR HIP LEFT 2 OR 3 VIEWS Routine 02/26/2024 1:12 PM EDT Status post total replacement of left hip HEMOGLOBIN A1C Routine 09/04/2023 11:59 AM EDT Hip pain, left Primary localized osteoarthritis of left hip Type 2 diabetes mellitus without complication, unspecified whether patient assistant insulin use ([facility]) from Last 3 Months or Most Recently Relevant to Health Maintenance Results * XR Hip Left 2 or [...] signing this report, I, the attending physician, attestthat I have personally reviewed the images/data for the aboveexamination(s) and agree with the final edited report. Drafted by Boyd Landaverde M.D. on 02/26/2024 1:31 PM Final report signed by Minh Rod MD on 02/26/2024 2:26 PM us Griffin Bustillos MD IMG XR PROCEDURES Final R esult * (ABNORMAL) Hemoglobin A1c (09/04/2023 11:59 AM EDT) Hemoglobin A1c 6.0(H) <5.7 % 09/04/2023 5:33 PM EDT [facility] Blood Venous blood specimen / Unknown Venipuncture / Unknown 09/04/2023 11:59 AM EDT 09/04/2023 11:59 AM EDT Narrative [facility] - 09/04/2023 5:33 PM EDT HA1C Interpretive Data: Diagnosis of Diabetes: Diabetic > or = 6.5% Pre-diabetic 5.7 to 6.4% Non-diabetic < or = 5.6% Glycemic Targets for Type I and Type II Diabetics: Non- Adults <7.0% Adults <6.0% Children and Adolescents <7.5% Source: ??[place] [employer]. Standards of medical care in diabetes,2017. Diabetes Care.2017:40 (suppl 1):S1-S135. HbA1c assay performed by an ion-exchange chromatography method that is certified traceable to the DCCT. us Griffin Bustillos MD LAB BLOOD ORDERABLES Marielle solitario Result [facility] [address] [place] [address] from Last 3 Months or Most Recently Relevant to Health Maintenance Insurance MEDICARE [facility] Advance Directives * Full Code (Latest Code Status on File) Date Activated Date Inactivated Comments 09/19/2023 9:05 AM 09/25/2023 5:08 PM Question Answer Comments Patient has decision-making capacity? Yes Care Teams Client Services Account Manager Relationship Specialty Start Date End Date Betsy Smith [address] [place] [address] PCP - General 06/13/23
--- OUTSIDE RECORDS SUMMARY | 2024-03-25 02:45 | XMS_ITS | Encounter Summary ---
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) to steady your nerves or to get [...] Building Surgery Spine & Joint [address], [address] [place] [address] Griffin Bustillos MD [address] [place] [address] documented as of this encounter Visit Diagnoses Not on filedocumented in this encounter Additional Health Concerns Assessment Noted Time A fall risk assessment has been complete d for the patient 11/20/2023 1:04 PM EDT A Body Mass Index follow-up plan has been documented for the patient 11/20/2023 1:58 PM EDT documented as of this encounter Care Teams Pararescue Manager Relationship Specialty Start Date End Date Betsy Smith [address] [place] [address] PCP - General 06/13/23 documented as of this encounter
--- OUTSIDE RECORDS SUMMARY | 2024-03-25 02:45 | XMS_ITS | Encounter Summary ---
Author Organization Healthcare Address [address] [place] [address] Care Team Providers Care Activities Director Scouting Name Role Phone Betsy Smith Primary Care Provider [phone] Reason for Visit * Reason Comments Post-op Encounter Details Date Type Department Care Team ([facility] st Contact Info) Description 11/20/2023 1:30 PM EDT Office Visit Medical Office Building Surgery Spine & Joint [address], [address] [place] [address] Griffin Bustillos MD [address] [place] [address] Hip pain, left (Primary Dx) [...] drink first t dahlia 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 Wound healed, no calf pain, distal cms intact. Xrays show stable prosthesis. Fu 3 months with repeat xrays documented in this encounter Plan of Treatment Upcoming Encounters Date Type Department Care Team (Late st Contact Info) Description 03/03/2025 1:30 PM EDT Office Visit Medical Office Building Surgery Spine [facility] Joint [address], [address] [place] [address] Griffin Bustillos MD [address] [place] [address] documented as of this encounter Results * 6-Week Post-Op: XR [...] report signed by Roney Rodriguez MD on 41:18 PM Griffin Bustillos MD IMG XR PROCEDURES Final R esult documented in this encounter Visit Diagnoses Diagnosis Hip pain, left- Primary Pain in joint, pelvic region and thigh Hip pain, left Pain in joint, pelvic region and thigh documented in this encounter Additional Health Concerns Assessment Noted Time A fall risk assessment has been complete d for the patient 11/20/2023 1:04 PM EDT A Body Mass Index follow-up plan has been documented for the patient 11/20/2023 1:58 PM EDT documented as of this encounter Care Teams Activities Director Scouting Relationship Specialty Start Date End Date Betsy Smith [address] [facility] [address] [place] [address] PCP - General 06/13/23 documented as of this encounter
--- OUTSIDE RECORDS SUMMARY | 2024-03-25 02:45 | XMS_ITS | Encounter Summary ---
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 HYDROcodone-acetam inophen ([place]) 5-325 MG tablet Take 1 tablet (5 [...] Building Surgery Spine & Joint [address], [address] [place] [address] Griffin Bustillos MD [address] [facility] [address] [place] [address] documented as of this encounter Procedures Procedure Name Priority Date/Time Associated Diagnosis Comments XR HIP LEFT 2 OR 3 VIEWS Routine 02/26/2024 1:12 PM EDT Status post total replacement of left hip documented in this encounter Results * XR Hip Left [...] Minh Rod MD on 02/26/2024 2:26 PM Griffin Bustillos MD IMG XR PROCEDURES Final R esult documented in this encounter Visit Diagnoses Diagnosis Status post total replacement of left hip documented in this encounter Additional Health Concerns Assessment Noted Time A fall risk assessment has been complete d for the patient 02/26/2024 1:17 PM EDT A Body Mass Index follow-up plan has been documented for the patient 02/26/2024 2:15 PM EDT documented as of this encounter Care Teams Hand Mica Plate Layer Relationship Specialty Start Date End Date Betsy Smith [address] [facility] [facility] [address] [place] [address] PCP - General 06/13/23 documented as of this encounter
--- OUTSIDE RECORDS SUMMARY | 2024-03-25 02:46 | XMS_ITS | Encounter Summary ---
Author Organization Healthcare Address [address] [place] [address] Care Team Providers Care Communications Intern Name Role Phone Betsy Smith Primary Care Provider [phone] Reason for Visit * Auth/Cert (Routine) Specialty Diagnoses / Procedures Referred By Mariza maher Referred To Contact Diagnoses Hip pain, left Hip pain, left [M25.552] Procedures FL TOTAL HIP ARTHROPLASTY FL TOTAL HIP ARTHROPLASTY ARTHROPLASTY, HIP, TOTAL Griffin Santiago MD [address] [place] [address] Phone: tel: fax: [facility] [address] [place] [address] Phone: tel: Referral ID Status Reason Start Date Expiration Date Visits Re quested Visits Authorized [id number] 1 1 Encounter Details Date Type Department Care Team (Latest Contact Info) Description 09/19/2023 8:02 AM EDT - 09/25/2023 3:00 PM EDT Hospital Encounter [facility] [address] [place] [address] Griffin Santiago MD [address] [place] [address] Hip pain, left Discharge Disposition: Rehab Facility Social History Tobacco Use Types Packs/Day Years [...] 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 You will be on Aspirin 81mg twice daily for 4 weeks for deep vein thrombosis prevention. It is important that you take each pill on time every day and to take it for the full 4 weeks. 2. Please see your discharge medication list for the post-operative medications you have been given. Call the clinic with any questions or concerns. 3. You have been given Docusate Sodium to take daily to prevent constipation while taking narcotic pain medications. Take this as long as you are taking narcotics. You can also begin Miralax daily and continue until you have weaned off your narcotic pain medications. If you have had no bowel movement on post-op day #3 you need to take Milk of Magnesia as directed over the counter. Then if no bowel movement by post-op day #5 you need to use a Dulcolax Suppository over the counter as directed. Ifstill no bowel movement at that time your need to call the clinic. Hospital Medicine Recommendations: - Your sodium level was low after surgery but has since improved with transfusions and then with fluid restriction. Continue 1.5L (1500mL) fluid restriction after discharge. Recommend that you followup with your primary care within 7-10 days of discharge from rehab facility for continued monitoring of your sodium level and kidney function. - Continue a low potassium diet at discharge as your potassium level has been occasionally elevatedsince surgery. - Do not resume your home irbesartan until follow up with your primary care provider. documented in this encounter Medications at Time of Discharge [...] by mouth 1 (one) time each day. HYDROcodone-acet aminophen (Mesa) 5-325 MG tablet Take 1 tablet (5 mg of hydrocodone) by mouth every 6 (six) hours if needed for severe pain. 09/25/2023 metFORMIN XR (Glucophage-XR) 750 MG 24 hr tablet Take 2 tablets (1,500 mg) by mouth 1 (one) time each day. 06/05/2023 omeprazole (PriLOSEC) [address] capsule Take 1 capsule (40 mg) by mouth 1 (one) time each day if needed. aspirin 81 MG EC tablet Take 1 tablet (81 mg) by mouth 2 (two) times a day for 28 days. For 4 weeks post-op for blood clot prevention 09/25/2023 4 docusate sodium (Colace) 250 MG capsule Take 1 capsule (250 mg) by mouth 2 (two) times a day. 09/25/2023 4 documented as of this encounter Miscellaneous Notes * Addendum Note - Keven Ayala - 09/25/2023 3:00 PM EDTEncounter addended by: Keven Ayala on: 10/02/2023 8:42 AM Actions taken: Cosign clinical note with attestation * Nursing Note - Ryanne Feldman RN - 09/25/2023 11:25 AM EDT Report called to [facility] stroke unit to yee TERRAZAS * Progress Notes - Laney Tidwell - 09/25/2023 11:05 AM EDT Occupational Therapy Treatment Patient Name: Tasneem Perales Today's Date: 09/25/2023 OT Discharge Recommendations: Subacute rehab Equipment Recommended: Defer to facility Subjective Patient agreeable to treatment Participants in Care Family/Caregiver Present: No Family/Caregiver: Adult Daughter Toll Settlement Clerk: Not Applicable Presentation Oxygen Therapy: None (Room air) Lines and Tubes: Intravenous access Pre-Session: Sitting: edge of bed Pre-Session Comments: RN consent to treatment Post-Session: Call light in reach, SCDs applied, Chair alarm, Sitting in chair, RN notified Post-Session Comments: all needs met Orthoses: Knee immobilizer - Left Precautions Left Lower Extremity Weight Bearing Status: Weight Bearing as Tolerated Right Lower Extremity Weight Bearing Status: Full Weight Bearing Left Upper Extremity Weight Bearing Status : Full weight bearing Right Upper Extremity Weight Bearing Status : Full weight bearing ROM Precautions: PHP Medical Precautions: Hip, Fall precautions, Post-Surgical precautions Hip Precautions: Posterior hip precautions Post-Surgical Precautions: PHP Objective Pain No pain reported. Delirium Screening Cunningham Agitation Sedation Scale (RASS): Alert and calm Confusion Assessment Method-ICU (CAM-ICU/PCAM-ICU) Feature 3: Altered Level of Consciousness: Negative Cognition Cognition Overall Cognitive Status: Within Functional Limits Arousal/Alertness: Appropriate responses to stimuli Mood/Behavior: Alert Orientation Level: Oriented X4 Single Step Commands: With increased time Multi-Step Commands: With increased time Method of Communication: Verbal Transfers Transfer Exam: Sit to stand Level of [place]: Contact guard Physical/Nonphysical Assist: Verbal Cues, Minimal cues, Set-up required Assistive Device: Walker, rolling Transfer Exam: Stand to Sit Level of [place]: Contact guard Physical/Nonphysical Assist: Verbal Cues, Minimal cues, Set-up required Assistive Device: Walker, rolling Transfer Exam: Bed to Chair/Chair to Bed Level of [place]: Minimum assist (75% patient's effort) Physical/Nonphysical Assist: Additional assist utilized for safety, 1 person + 1 person to manage equipment, Verbal Cues, Supervision, Moderate cues Assistive Device: Walker, rolling Toilet Transfer Level of [place]: Minimum assist (75% patient's effort) Physical/Nonphysical Assist: Additional assist utilized for safety, Minimal cues, Supervision, Verbal Cues, 1 person + 1 person to manage equipment Type of Transfer: Stand-pivot Functional Mobility Device: Rolling walker Assistance: Contact guard assist Ambulation Comments: Patient completed functional mobility of household chore with CGA and min cuesfor safety. Balance Static Sitting Balance Static Sitting-Balance Support: Feet supported Static Sitting-Level of Assistance: Contact guard Dynamic Sitting Balance Dynamic Sitting-Balance Support: Feet supported Dynamic Sitting-Balance: Lateral weight shifts Level of Assistance: Contact guard Static Standing Balance Static Standing-Balance Support: Right upper extremity support, Left upper extremity support Static Standing-Level of Assistance: Minimum assistance Therapeutic Activity (15 minutes) See transfers, balance, and functional mobility section for further treatment information. Patient req'd min cues for safety. Patient had good follow through. Assessment Patient was dressed upon arrival, and did not wish to practice. Therapist reviewed dressing techniques with patient. Patient did not recall her no bending precautions. Therapist educated patient on PHP, and patient had poor recall. Patient would continue to benefit from skilled therapy. OT Recommendations Discharge Destination: Subacute rehab Discharge Equipment: Defer to facility Plan Continue plan of care. Goals OT GOAL DETAILS Goal Established Date Time Frame Goal Status OT Goal 1: Patient will complete toileting tasks with CGA. 09/20/23 2 weeks OT Goal 2: Patient will complete LBD tasks with appropriate AE as needed CGA. 09/20/23 2 weeks OT Goal 3: Patient will complete all functional transfers with CGA. 09/20/23 2 weeks Written by Laney Tidwell on 09/25/23 at 2:37 PM. * Progress Notes - Marisol Woods - 09/25/2023 11:00 AM EDT Physical Therapy Treatment Patient Name: Tasneem Perales Today's Date: 09/25/2023 PT Discharge Recommendations: Subacute rehab Equipment Recommended: Patient owns appropriate equipment Subjective Pt. agreeable to therapy session. Participants in Care Family/Caregiver Present: No Family/Caregiver: Adult Daughter Presentation Oxygen Therapy: None (Room air) Lines and Tubes: Intravenous access Pre-Session: Sitting: edge of bed Pre-Session Comments: RN consent to PT treatment . Post-Session: Call light in reach, SCDs applied, Chair alarm, Sitting in chair, RN notified Post-Session Comments: Left in care of OT Orthoses: (hip abd pillow) Precautions Left Lower Extremity Weight Bearing Status: Weight Bearing as Tolerated Right Lower Extremity Weight Bearing Status: Full Weight Bearing Left Upper Extremity Weight Bearing Status : Full weight bearing Right Upper Extremity Weight Bearing Status : Full weight bearing ROM Precautions: PHP Medical Precautions: Hip, Fall precautions, Post-Surgical precautions Hip Precautions: Posterior hip precautions Post-Surgical Precautions: PHP Objective Pain No complaints of pain Delirium Screening Cunningham Agitation Sedation Scale (RASS): Alert and calm Confusion Assessment Method-ICU (CAM-ICU/PCAM-ICU) Feature 3: Altered Level of Consciousness: Negative Therapeutic Activity ( Minutes) Rolling / Turning Assist level: Cues: Scooting/Bridging Assist level: Cues: Supine to Sit Assist level: Cues: Sit to Supine Assist level: Cues: Transfers Sit to Stand Assist level:SBA Device:RW Cues:verbal and tactile Stand to Sit Assist level:SBA Device:RW Cues:verbal and tactile Bed < - > Assist level: Device: Cues: Type of transfer: Gait Training ( 10 Minutes ) 100ft Pt. Presented with an Normal gait gait pattern , with RW. Requiring verbal and tactile cues for gait deviations including decreased step length, decreased stride length, flexed posture, and decreasedhip flexion. Pt. Was able to complete gait training with no LOB noted, patient required no rest breaks required. . Pt. Still requiring skilled gait training to addresses the above gait deviations as well as to decrease risk of falls, improved independence and decreased caregiver assistance. Assessment Pt. has the following impairments : decreased strength, decreased endurance, and flexed posture . Pt. activity tolerance/endurance is limited to 10-20 min's with rest breaks Pt. treatment session: Pt. had no adverse reaction to treatment . Pt. still requiring skilled services for functional mobility. Plan Continue PT to progress towards established goals. PT Recommendations Discharge Destination: Subacute rehab Discharge Equipment: Patient owns appropriate equipment PT Goals PT GOAL DETAILS Goal Established Date Time Frame Goal Status PT Goal 1: Pt will demonstrate ability to ambulate 150 feet with FWW: Mod I, in prep for daily homelife. 09/19/23 2 weeks PT Goal 2: Pt will demonstrate ability to perform all functional transfers: Mod I, in prep for [employer] life. 09/19/23 2 weeks PT Goal 3: Pt will demonstrate ability to negotiate 14 stairs with Right railing: Mod I, in prep for daily home life. 09/19/23 2 weeks PT Goal 4: Pt will recit all 3 PHP: Ind, for safe mobility and discharge. 09/19/23 2 weeks Written by Marisol Woods on 09/25/23 at 2:15 PM. * Progress Notes - Lisa Fontana RN - 09/25/2023 10:15 AM EDT Case Management Discharge Note Tasneem Perales 88 y.o. female CSN: [id number] Admission: 09/19/2023 8:02 AM Primary Problem: Hip pain, left Pt will dc today to [facility]. RN will call report to [phone]. CM faxed dc summary to [phone]. Housing Circumstances-Z Codes: na Patient Referred to Financial or Community Resources: na Discharge Facility/Level of Care Needs: Discharge Facility/Level of Care Needs: 3-Senior Care Facility Patient's Choice of Community Agency(s): na Patient/Family Anticipated Services at Transition: [facility] DME/Equipment Needed after Discharge: none Readmission Within the Last 30 Days: Medicare Documentation: Follow-up: [facility] ([facility] [address] [id number] Follow up Griffin Santiago MD [facility] [address] [phone] Discharge Transportation: [facility] shuttle at 3pm. Follow Up Transport: family Lisa Fontana RN * Ena Zendejas RN - 09/25/2023 10:03 AM EDT Images from the original note were not included. [id number] After Hip Replacement: Using Your Walker After hip replacement, you?ll likely use a walker to get around while you recover. There are a fewtypes of walkers: ?? The standard nonrolling walker ?? The 2-wheeled (front) rolling walker ?? The 4-wheeled rolling walker Your physical therapist (PT) or occupational therapist (OT) will teach you how to use a walker safely and help you choose the best one for you. Later, you may change from a walker to crutches or a cane. Using a walker ?? Move the walker a few inches in front of you. ?? Lean on the walker so it supports you. Step into the center with your operated leg. Then step forward with your good leg. Repeat. ?? As you get more comfortable, you?ll be able to move the walker as you step. Walking up a curb ?? Move your feet and walker as close to the curb as possible. ?? Put your weight on both legs, and then lift the walker onto the curb. ?? Step on the curb with your good leg. Using the walker to support your weight, bring up your operated leg. Walking down a curb ?? Move your feet and walker as close to the curb as possible. ?? Lower the walker onto the ground, keeping its back legs against the curb. ?? Using the walker to support your weight, lower your operated leg. Then step down with your good leg. Last Reviewed Date: 2021 ?? 2604-7398 [employer]. All rights reserved. This information is not intended as a substitute for professional medical care. Always follow your healthcare professional's instructions. * [facility] - Ena Whipple RN - 09/25/2023 10:03 AM EDT Images from the original note were not included. [address]1951 Using an Incentive Spirometer An incentive spirometer is a device that helps you do deep breathing exercises after surgery. Or ithelps lower the risk for breathing problems if you have a lung disease or condition. These exercises expand your lungs, aid in circulation, and may help prevent pneumonia. Deep breathing exercises also help you breathe better and improve the function of your lungs by: ?? Keeping your lungs clear ?? Strengthening your breathing muscles ?? Helping prevent respiratory complications or problems The incentive spirometer gives you a way to take an active part in your recovery. A nurse or respiratory therapist will teach you breathing exercises. To do these exercises, you will breathe in through your mouth and not your nose. The incentive spirometer only works correctly if you breathe in through your mouth. Deep breathing expands the lungs, aids circulation, and helps prevent pneumonia. Your healthcare provider or their staff will tell you how to use the device, your targeted volume(s), and provide other helpful tips to prevent complications (such as pain, dizziness, feeling lightheaded) when blowing in the incentive spirometer. Steps to clear lungs Step 1. Exhale normally. Then, inhale normally. ?? Relax and breathe out. Step 2. Place your lips tightly around the mouthpiece. ?? Make sure the device is upright and not tilted. ?? Sit up and breathe out (exhale) fully ?? Tightly seal your lips around the mouthpiece Step 3. Inhale as much air as you can through the mouthpiece. Don't breathe through your nose. ?? Breathe in (inhale) slowly and deeply. ?? Hold your breath long enough to keep the balls, piston, or disk raised for at least 3 to 5seconds, or as instructed by your healthcare provider. ?? Exhale slowly to allow the balls, piston, or disk to fall before repeating again. Note: Some spirometers have an indicator to let you know that you are breathing in too fast. If theindicator goes off, breathe in more slowly. Step 4. Repeat the exercise regularly. ?? Do sets of 10 exercises every hour while you're awake, or as instructed by your healthcare provider. Don't do more than 30 breaths in each set. ?? If you were taught deep breathing and coughing exercises, do them regularly as instructed by your provider, nurse, or respiratory therapist. Follow-up care Make a follow-up appointment, or as directed by your healthcare provider. Also follow up with your provider as advised if your symptoms don't improve or continue to get worse. When to call your healthcare provider Call your healthcare provider right away if you have any of these: ?? Fever 100.4?? (38??C) or higher, or as advised by your provider ?? Brownish, bloody, or smelly sputum (phlegm that you cough up) Call 911 Call 911 if any of these occur: ?? Shortness of breath that doesn't get better after taking your medicine ?? Cool, moist, pale, or blue skin ?? Trouble breathing or swallowing, wheezing ?? Fainting or loss of consciousness ?? Feeling of dizziness or weakness, or a sudden drop in blood pressure ?? Feeling very ill ?? Lightheadedness ?? Chest pain or rapid heart rate Last Reviewed Date: 2021 ?? 3912-1250 [employer]. All rights reserved. This information is not intended as a substitute for professional medical care. Always follow your healthcare professional's instructions. * Anay Muir - Ena hWipple, RN - 09/25/2023 10:03 AM EDT Images from the original note were not included. 58355 Preventing Deep Vein Thrombosis After Surgery In the days and weeks after surgery, you have a higher chance of developing a deep vein thrombosis (DVT). This is a condition in which a blood clot or thrombus develops in a deep vein. They are most common in the leg. But a DVT may develop in an arm or another deep vein in the body. A piece of the clot, called an embolus, can separate from the vein and travel to the lungs. A blood clot in the lungs is called a pulmonary embolus (PE). This can cut off the flow of blood to the lungs. It's a medical emergency and may cause . Healthcare providers use the term venous thromboembolism (VTE) to describe both DVT and PE. They use the term VTE because the two conditions are very closely related and their prevention and treatment are similar. Prevention in the hospital or other facility Your healthcare provider will usually prescribe one or more of the following to prevent blood clots: ?? Blood-thinner (anticoagulant). This medicine prevents blood clots. You take it by mouth, by injection, or through an IV (intravenous). Commonly used anticoagulants include warfarin and heparin. Newer anticoagulants may also be used, including rivaroxaban, apixaban, dabigatran, and enoxaparin. Sometimes, your healthcare provider may not give you an anticoagulant medicine. It's important that they discuss the risks and benefits with you and document them. ?? Compression stockings. These elastic stockings fit tightly around your legs. They help keep blood flowing toward your heart by the pressure they apply. They prevent blood from pooling and forming blood clots. When you first put them on, the stockings may be uncomfortable. But after a while, you should get used to them. ?? Exercises. Simple exercises while you are resting in bed or sitting in a chair can help prevent blood clots. Move your feet in a hopi or up and down. Do this 10 times an hour to improve circulation. ?? Getting out of bed and walking (ambulation). After surgery, a nurse will help you out of bed as soon as you are able. Moving around improves circulation and helps prevent blood clots. ?? Sequential compression device (SCD) or intermittent pneumatic compression (IPC). Plastic sleevesare wrapped around your legs and connected to a pump that inflates and deflates the sleeves. This applies gentle pressure to promote blood flow in the legs and prevent blood clots. Remove the sleevesso that you don't trip or fall when you are walking. For example, when you use the bathroom or shower. If you need help removing the sleeves, ask for help. Prevention at home Ankle exercises can help keep blood flowing in the veins. Deep vein thrombosis can happen even after you go home. Follow all instructions from your healthcare provider. The following are some general guidelines about DVT prevention: ?? Blood-thinner medicine. If a blood thinner was prescribed, make sure you follow all directions about taking it. Be sure you know what foods and medicines may interact. Also, ask your healthcare provider what to do if you forget to take a dose. ?? Compression stockings. Your healthcare provider will tell you how often to wear and remove the stockings. Follow all instructions closely. Each time you remove your stockings, check your legs and feet for reddened areas or sores. If you see any changes, call your healthcare provider right away. ?? Returning to activity. Follow all instructions about returning to activities. Be as active as you can. This improves blood flow and helps prevent a clot from forming. When in bed or in a chair, continue with the ankle exercises you did in the hospital. ?? Sequential compression device (SCD) or intermittent pneumatic compression (IPC). In some cases, this device may be recommended at home. If you are using this device at home, make sure you closely follow all instructions from your healthcare provider. You will be instructed on how often and for how long to use the device. Again, remove the sleeves if you are up and walking. When to call your healthcare provider You may have signs or symptoms of a blood clot. Or you may have signs or symptoms of bleeding from medicines to prevent clots. Call your healthcare provider if you have the following: ?? Pain, swelling, or redness in the leg, arm, or other area ?? Blood in the urine or stool ?? Very dark or tar-like stool ?? Vomiting with blood ?? Bleeding from the nose ?? Bleeding from the gums ?? A cut that will not stop bleeding ?? Bleeding from the vagina Call 911 Call 911 if you have any of the following: ?? Chest pain ?? Shortness of breath ?? Fast heartbeat ?? Excessive sweating ?? Fainting ?? Coughing (may cough up blood) ?? Heavy or uncontrolled bleeding Last Reviewed Date: 2021 ?? 0712-3758 [employer]. All rights reserved. This information is not intended as a substitute for professional medical care. Always follow your healthcare professional's instructions. * Anay CortesIR - Ena Whipple RN - 09/25/2023 10:03 AM EDT Images from the original note were not included. 57956 Preventing a Surgical Site Infection A risk of any surgery is an infection at the surgical site. The surgical site is a cut the surgeon makes in the skin to do the surgery. Surgical site infections can range in type. It may be a minor skin infection. Or it may be severe and include tissue under the skin or other organs. In some cases,a severe infection can cause . This sheet tells you: ?? About surgical site infections ?? What hospitals do to prevent them ?? How they?re treated if they do occur ?? What you can do to prevent an infection Hand washing reduces the risk of infection. What causes a surgical site infection? Germs are everywhere. They?re on your skin, in the air, and on things you touch. Many germs are good. Some are harmful. Surgical site infections occur when harmful germs enter your body through the incision in your skin. Some infections are caused by germs that are in the air or on objects. But most are caused by germs found on and in your own body. Who is at risk for a surgical site infection? Anyone can have a surgical site infection. Your risk is higher if you: ?? Are an older adult ?? Have a weak immune system ?? Have other health conditions such as diabetes ?? Take certain medicines, such as steroids ?? Are a smoker ?? Have certain types of surgery, such as abdominal surgery ?? Have poor nutrition ?? Are very overweight ?? Have a surgery that lasts longer than 2 hours What are the symptoms of a surgical site infection? An infection often shows up as skin redness, pain, and swelling around the incision that gets worse. Later a cloudy or greenish-yellow fluid may come from the incision. The fluid may smell bad. The incision may pull apart or open up. You are likely to have a fever and may feel very ill. Symptoms can appear any time. They may happen from hours to weeks after surgery. Implants such as an artificial knee or hip can become infected at any time after the surgery. How is a surgical site infection treated? ?? A surgical site infection is treated with antibiotics. The type of medicine you get will depend on what may be causing the infection. Most serious wound infections need wound care. In some cases, surgery may be needed on the infected wound. ?? An infected skin wound may be reopened and cleaned. A deep wound may need to be packed with gauze. The gauze is changed often until the wound starts to heal from the inside out. Your healthcare provider will decide the best way to treat your infection. ?? If an infection occurs where an implant is placed, the implant may be removed. ?? If you have an infection deeper in your body, you may need surgery to treat it. What hospitals do to prevent surgical site infections Many hospitals take these steps to help prevent surgical site infections: ?? Handwashing. Before the surgery, your surgeon and all surgery staff scrub their hands and arms with an antiseptic soap. ?? Clean skin. The site where your incision is made is carefully cleaned with an antiseptic solution. ?? Sterile clothing and drapes. The surgical team wears medical uniforms. These are known as scrub suits. They wear long-sleeved surgical gowns, masks, caps, shoe covers, and sterile gloves. Your body is fully covered with a large sterile sheet (sterile drape). There is an opening in the sheet where the incision is made. ?? Clean air. Operating rooms have special air filters. They use positive pressure airflow to prevent unfiltered air from entering the room. ?? Careful use of antibiotics. Antibiotics are given no more than 60 minutes before the incision ismade. They are generally stopped within 24 hours after surgery. This depends on the type of surgery. This helps kill germs but prevents problems that can occur when antibiotics are taken longer. ?? Controlled blood sugar levels. Your blood sugar level may rise. This can be because of the stress of the surgery. Your blood sugar level is watched closely to make sure it stays within a normal range. High blood sugar delays wound healing. This increases the risk of infection. ?? Controlled body temperature. A almqw-ovlg-pqufpq temperature during or after surgery prevents oxygen from reaching the wound. This makes it harder for your body to fight infection. Hospitals may warm IV fluids, increase the temperature in the operating room, and provide warm-air blankets. ?? Safe hair removal. Any hair that must be removed is clipped right before the incision, not shaved with a razor. This prevents tiny nicks and cuts where germs can enter. ?? Wound care. After surgery, a closed wound is covered with a sterile dressing for 1 to 2 days. Open wounds are packed with sterile gauze and covered with a sterile dressing. What you can do to prevent a surgical site infection ?? Ask questions. Learn what your hospital is doing to prevent infection. ?? If instructed, shower or bathe with plain soap the night before and the day of your surgery. Follow all instructions you're given. You may be asked to use a special cleanser that you don?t rinse off. ?? If you smoke, stop as long as possible before and after the surgery. Ask your healthcare provider about ways to quit. ?? Take antibiotics only when your healthcare provider tells you to. Using antibiotics when they?renot needed can create germs that are harder to kill. Finish the entire prescription of your antibiotics. Take them even if you feel better. ?? Ask healthcare workers to clean their hands with plain soap and water or with an alcohol-based hand slide maker before and after caring for you. Don?t be afraid to remind them. ?? After surgery, eat healthy foods. Care for your incision as directed by your healthcare team. When to call your healthcare provider Call your healthcare provider if you have any of these: ?? Pain at the surgical site that gets worse ?? A red streak, worse redness, or puffiness near the incision ?? Yellowish, cloudy, or bad-smelling fluid from the incision ?? Stitches that dissolve before the wound heals ?? Fever of 100.4?? F ( 38??C ) or higher, or as advised by your healthcare provider ?? A tired feeling that doesn?t go away Last Reviewed Date: 2021 ?? 4117-8833 The [employer]. All rights reserved. This information is not intended as a substitute for professional medical care. Always follow your healthcare professional's instructions. * [facility] - Ena Whipple RN - 09/25/2023 10:03 AM EDT Images from the original note were not included. 223 After Total Hip Replacement After your hip replacement, you will need to follow these instructions to avoid complications. Follow these instructions from the time you go home until your doctor says you can stop. Incision care ?? If your incision has sutures or altagracia, do not shower until after you return to the clinic. ?? If your incision is closed with liquid skin adhesive, you may shower 24 hours after all drainagestops. ?? If your incision is covered with a waterproof dressing, you may shower when you feel comfortable. Remove this dressing after 10 days. ?? Sit on a shower chair or tub bench when you shower to keep from falling. Carefully wash around your incision with soap and water. Rinse the incision well. Then gently pat it dry. ?? Do not rub the incision or apply creams or lotions. ?? If your incision is not draining, you do not need a dressing over it. You may cover your incision with a light, dry bandage if you want. ?? Check your incision daily for redness, swelling, tenderness or drainage. Hip precautions ?? Most patients will not need to follow hip precautions, but you may be asked to avoid certain positions and movements for 8 weeks after surgery. We will teach you how to follow hip precautions, if needed. ?? If needed, the hip precautions after posterior hip replacement are: o Do not bend your hip past 90 degrees. o Do not cross your legs past midline. o Do not turn your surgery foot or leg inward. ?? If needed, the hip precautions after anterior hop replacement are: o Do not force your leg to extend backwards. You should be able to walk as normal with a cane. o Do not turn your surgery foot or let outwards. Activity and exercise ?? Follow your doctor?s orders for how much weight to put on the operated leg. ?? Follow hip precautions for eight weeks after surgery, if needed. ?? Walk often. Do the exercise physical therapy taught you three times a day. ?? Slowly increase your activity each day. ?? Walk up and down stairs with support. Use the railing if possible. Try one step at a time - goodhip up, bad hip down. ?? Use a cane, crutches, a walker or handrails until your balance, flexibility and strength improve. And remember to ask for help from others when you need it. ?? Do not engage in any jarring sports or activities until your doctor says it is OK. Examples are jogging, tennis and basketball. Sitting and lying down ?? Raise your legs when sitting. ?? Sit in chairs with arms. The arms make it easier for you to stand up or sit down. ?? Do not sit for more than 30 to 45 minutes at a time. ?? Nap if you are tired, but don?t stay in bed all day. ?? Ask your surgeon if it is OK to sleep on the side that has the new hip. Use pillows between yourlegs if sleeping on your side. Be sure to change the position of your leg during the night. Bathroom safety ?? Use nonslip bath mats, grab bars and a shower chair or tub bench in your bathroom. Riding and driving ?? Sit on a firm cushion when you ride in a car. Avoid sitting too low. ?? Don?t drive while you are taking narcotic pain medication. ?? Don?t drive until your doctor says it is OK. Most people can start driving about 2 to 4 weeks after surgery. Managing pain ?? You should expect to have some pain as you heal. This pain may last weeks or months. ?? Take pain medicine as directed. Do not skip or add doses. ?? Take them at least 20 minutes before doing activities. Take them 30 to 60 minutes before exercise or physical therapy. ?? Do not take other pain medicines unless your doctor approves. This includes hznr-qoc-junvsjf medicines like aspirin, ibuprofen and Tylenol. ?? As you heal, you will need less pain medicine. Try taking 1 pill instead of 2. Or take them 2 times a day instead of 3 times a day. ?? Raise your leg. Rest your leg on pillows when you are in bed or in a chair. ?? Get up and move. This may help relieve discomfort at night. ?? You can also listen to music, relax, distract your mind or reposition your leg. Preventing infection ?? Avoid infection by washing your hands often. ?? Call your surgeon right away if you think you have an infection in your operated hip. Signs include a fever, redness, increased pain, or an incision that leaks white, green or yellow fluid. ?? Avoid soaking your incision in water (no hot tubs, bathtubs, swimming pools) until your doctor says it?s ok. ?? Wait 3 weeks after your surgery to shave your legs. ?? Wait 3 weeks after your surgery to get a flu or pneumonia vaccine. ?? Wait 2 months after your surgery for any routine dental appointments. When scheduling an appointment, be sure to tell your dentist that you?ve had a hip replacement. Your dentist may prescribe antibiotics for dental procedures. ?? Call your family doctor right away if you think you might have an infection elsewhere. Preventing blood clots ?? Take blood-thinning medicine as directed to prevent blood clots. ?? The nursing staff will teach you how to give the enoxaparin injection, if needed.. ?? Do not miss doses of blood-thinning medicine. ?? Use caution when taking long car trips or traveling by airplane for the first 6 weeks after surgery. If you must take a long car trip, stop every hour and walk for 10-15 minutes. Your doctor may recommend a blood thinner if you are flying within 6 weeks of surgery. Diet ?? It is normal to have a decreased appetite after surgery. Drink a nutritional supplement such as Boost or [place] Instant Breakfast until your appetite returns to normal. ?? Maintain a healthy weight. Added body weight puts stress on the hip. Get help to lose any extra pounds. Preventing constipation ?? Narcotic pain medicines can cause constipation. ?? Take stool softener as prescribed. ?? Drink plenty of fluids, especially water. ?? Increase fiber in your diet. Fruits, vegetables, beans, nuts and whole grains have fiber in them. ?? Call your doctor if your bowels do not move in the next few days after surgery. Sleep ?? Some patients have a hard time sleeping after surgery. If you have problems sleeping, take lmco-ptx-hmcwfjv diphenhydramine (Benadryl) or melatonin. ?? If you still have problems sleeping, call the clinic. You may need a prescription for a sleep aid. Follow-up care ?? Your orthopaedic surgeon will schedule follow-up exams to make sure that your hip is healing correctly. Use this time to ask any questions you have about your recovery or activities. ?? If you need a prescription refill before your next appointment, call [phone]. Call 3 business days before you run out of medicine. ?? To check joint stability over time, you may have X-rays every five years. When should I call the doctor? Call 911 right away if you have any of the following ?? Chest pain ?? Shortness of breath or trouble breathing Call Your doctor if you have any of the following ?? An increase in hip pain ?? Pain or swelling in a calf or leg ?? Unusual redness, heat, or drainage at the incision site ?? Fever of 101.5??F or higher or shaking chills. ?? Increased swelling in your leg. ?? Loss of control over leg motion * Discharge Summary - Karime OviedoLANDY - 09/25/2023 9:59 AM EDT Hospitalization Admit Date/Time: 09/19/2023 8:02 AM Admitting Attending: Griffin Santiago Discharge Date: 09/25/2023 Discharge Attending Physician: Griffin Santiago MD PCP name and Address: Betsy Smith MD [address] [facility] [id number] / [facility] [id number] Referring provider name and address: Griffin Santiago MD [address] [facility] [address] [place] [address] Chief Concern, Brief History of Present Illness, and Hospital Course Patient arrived to [facility] on 09/19/23 for their scheduled surgery. Patient tolerated the procedure without complication, was extubated in the operating room, and transferred to the PACU for recovery from anesthesia. Shortly thereafter, patient was transferred to the acute care floorfor recovery. Patient's hospital course was without complications. Patient was given prophylactic antibiotics, pain was controlled on oral pain medications, and patient tolerated a regular diet. The patient was kept on DVT prophylaxis with SCD's and aspirin. The patient was cleared to be dischargedby PT/OT prior to discharge as rehab placement. The patient was discharged to [facility]. Hospital Medicine Recommendations: - Your sodium level was low after surgery but has since improved with transfusions and then with fluid restriction. Continue 1.5L (1500mL) fluid restriction after discharge. Recommend that you followup with your primary care within 7-10 days of discharge from rehab facility for continued monitoring of your sodium level and kidney function. - Continue a low potassium diet at discharge as your potassium level has been occasionally elevatedsince surgery. - Do not resume your home irbesartan until follow up with your primary care provider. Surgeries and Procedures ARTHROPLASTY, HIP, TOTAL (Left) Medication List .. acetaminophen 500 MG tablet Commonly known as: Tylenol Take 1 tablet (500 mg) by mouth every 6 (six) hours. alendronate 70 MG tablet Commonly known as: Fosamax Take 1 tablet (70 mg) by mouth 1 (one) time per week. Takes on Sunday aspirin 81 MG EC tablet Take 1 tablet (81 mg) by mouth 2 (two) times a day for 28 days. For 4 weeks post-op for blood clot prevention CALCIUM-VITAMIN D PO Take 1 tablet by mouth 2 (two) times a day. docusate sodium 250 MG capsule Commonly known as: Colace Take 1 capsule (250 mg) by mouth 2 (two) times a day. ezetimibe 10 MG tablet Commonly known as: Zetia Take 1 tablet (10 mg) by mouth Daily. fexofenadine 180 MG tablet Commonly known as: Meena Take 1 tablet (180 mg) by mouth 1 (one) time each day. HYDROcodone-acetaminophen 5-325 MG tablet Commonly known as: Mesa Take 1 tablet (5 mg of hydrocodone) by mouth every 6 (six) hours if needed for severe pain. metFORMIN XR 750 MG 24 hr tablet Commonly known as: Glucophage-XR Take 2 tablets (1,500 mg) by mouth 1 (one) time each day. omeprazole [address] capsule Commonly known as: PriLOSEC Take 1 capsule (40 mg) by mouth 1 (one) time each day if needed. Where to Get Your Medications Information about where to get these medications is not yet available Ask your nurse or doctor about these medications acetaminophen 500 MG tablet aspirin 81 MG EC tablet docusate sodium 250 MG capsule HYDROcodone-acetaminophen 5-325 MG tablet Discharge Diagnosis Medical Problems Active and Resolved Hospital Problems Hospital * (Principal) Hip pain, left Post Discharge Instructions Please keep Aquacel in place for 10 days and then remove and replace with a dry guaze dressing or covaderm, then may change as needed. May shower as long as there is a seal around wound with Aquacel.Once the Aquacel is removed you may continue to shower if there is no drainage coming from the incision. Do not put any ointments or creams on your incision. Weight bear as tolerated Posterior hip precautions x 8 weeks Knee immobilizer and abduction pillow at night x 8 weeks Outpatient Follow-Up Future Appointments Date Time Provider Department Center 10/09/2023 10:30 AM Griffin Santiago MD [facility] Test Results Pending At Discharge Pending Labs Order Current Status Prepare Leukocyte Reduced RBC: 1 Units Preliminary result Pertinent Physical Exam At Time of Discharge Aquacel dressing in place. Motor/sensation intact. Discharge Disposition/Condition Disposition: [facility] Condition: Stable (s/sx potential problems absent or manageable) I spent >30 minutes of patient care and instruction time in preparation for this discharge. Cosigned by Griffin Santiago MD at 10/02/2023 8:29 AM EDT Associated attestation - Griffin Santiago MD - 10/02/2023 8:29 AM EDT Signature Only * Progress Notes - Lucy Mcbride APRN - 09/25/2023 8:00 AM EDT Hospital Medicine Progress Note Subjective: Patient assessed on am rounds. Patient is sitting up in chair at bedside. Her daughter is at bedside, questions answered by ortho. Patient has minimal pain this morning and is ready for rehab. Plan is to send her to [facility] today. We discussed her sodium level. She has a significant history of hyponatremia, for which she was being treated by her PCP. Patient is alert, oriented and cognitively intact. No concerns from nursing. Review of Systems Constitutional: Positive for fatigue. Negative for chills and fever. Respiratory: Negative for cough and shortness of breath. Cardiovascular: Negative for chest pain and palpitations. Gastrointestinal: Negative for abdominal pain, constipation, diarrhea, nausea and vomiting. Genitourinary: Negative for difficulty urinating and dysuria. Musculoskeletal: Positive for arthralgias. Negative for myalgias. Neurological: Negative for dizziness, light-headedness and numbness. Objective Physical Exam Vitals and nursing note reviewed. Constitutional: General: She is awake. She is not in acute distress. HENT: Head: Normocephalic and atraumatic. Mouth/Throat: Mouth: Mucous membranes are moist. Cardiovascular: Rate and Rhythm: Normal rate and regular rhythm. Pulses: Normal pulses. Pulmonary: Effort: Pulmonary effort is normal. No respiratory distress. Breath sounds: No wheezing. Abdominal: General: Bowel sounds are normal. There is no distension. Palpations: Abdomen is soft. Tenderness: There is no abdominal tenderness. Musculoskeletal: General: Swelling (left hip, mild) present. Right lower leg: Edema (trace) present. Left lower leg: Edema (generalized) present. Comments: Left hip Aquacel clean and intact Skin: General: Skin is warm and dry. Capillary Refill: Capillary refill takes less than 2 seconds. Findings: Bruising present. Neurological: General: No focal deficit present. Mental Status: She is alert and oriented to person, place, and time. Psychiatric: Mood and Affect: Mood normal. Behavior: Behavior normal. Temp: [36.3 ??C (97.4 ??F)-36.8 ??C (98.3 ??F)] 36.4 ??C (97.5 ??F) Heart Rate: [72-80] 76 Resp: [16-17] 17 BP: (113-153)/(50-65) 153/65 Recent labs: Recent labs and imaging personally reviewed and noted below: CBC: Lab Results Component Value Date WBC 6.84 09/24/2023 RBC 2.80 (L) 09/24/2023 HGB 7.8 (L) 09/24/2023 HCT 23.7 (L) 09/24/2023 PLT 319 09/24/2023 MCV 85 09/24/2023 MCH 27.9 09/24/2023 MCHC 32.9 09/24/2023 RDW 16.6 (H) 09/24/2023 NRBC 0.0 09/24/2023 Differential: Lab Results Component Value Date WBC 6.84 09/24/2023 Coagulation: No results found for: INR , PT , PTT , CLFGN Renal: Lab Results Component Value Date NA 126 (L) 09/25/2023 K 4.7 09/25/2023 CL 95 (L) 09/25/2023 CO2 25 09/25/2023 BUN 27 (H) 09/25/2023 CREATININE 0.82 09/25/2023 GLUCOSE 126 (H) 09/25/2023 CALCIUM 8.4 (L) 09/25/2023 Liver: No results found for: AST , ALT , ALPHO , BILITOT , BILIDIR Glucose: Lab Results Component Value Date PGLU 99 09/25/2023 PGLU 140 (H) 09/24/2023 PGLU 178 (H) 09/24/2023 PGLU 134 (H) 09/24/2023 Lab Results Component Value Date HGBA1C 6.0 (H) 09/04/2023 Medications: Scheduled: acetaminophen, 500 mg, Oral, q6h SREEDHAR alendronate, 70 mg, Oral, Weekly aspirin, 81 mg, Oral, BID calcium-vitamin D, 1 tablet, Oral, BID with meals insulin lispro, 0-5 Units, Subcutaneous, TID with meals insulin lispro, 0-3 Units, Subcutaneous, Twice at night magnesium oxide, 400 mg, Oral, Daily pantoprazole, 40 mg, Oral, Daily before breakfast senna-docusate, 2 tablet, Oral, Nightly Continuous: As needed: bisacodyl, 10 mg, BID PRN glucose, 15 grams of glucose, q15 min PRN Or dextrose 10 %, 12.5 g, q15 min PRN glucose, 15 grams of glucose, q15 min PRN Or dextrose 10 %, 12.5 g, q15 min PRN dextrose 10 %, 25 g, q15 min PRN Or glucose, 30 grams of glucose, q15 min PRN diphenhydrAMINE, 12.5 mg, q4h PRN glucagon (human recombinant), 1 mg, q15 min PRN HYDROcodone-acetaminophen, 5 mg of hydrocodone, q6h PRN magnesium hydroxide, 10 mL, BID PRN ondansetron, 4 mg, q6h PRN polyethylene glycol, 17 g, Daily PRN Assessment/Plan Principal Problem: Hip pain, left Assessment and Plan: Tasneem Perales is a 88 y.o. female with history of HTN, DM type 2, chronic hyponatremia, GERD, HLD, thrombocytosis, CKD, and OA admitted for elective left total hip arthroplasty. Medicine is consulted for medical co-management. 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 this admit with mild hypovolemic aspect in setting of periop blood loss s/p transfusions - Na marcia of 123 on admission, improved and stable - Continue 1.5L fluid restriction - Follow up with PCP on discharge, within 1 week Chronic kidney disease with chronic hyperkalemia Acute kidney injury, resolved - Cr ~ 0.8 per most recent labs, increased to 1.29 POD 1, stable at 0.9 on repeat labs - Potassium 5.6 09/03, improved to 4.8 this admit, currently 5.1 - FENa suggestive of prerenal etiology, s/p transfusion x 2 - Continue low potassium diet - Strict I/Os, avoid nephrotoxic agents, continue to monitor renal function Acute blood loss on chronic normocytic anemia - Suspect degree of anemia in setting of CKD with acute blood loss anemia - Hgb 10.6 09/03, s/p 2 units PRBCs this admit with last on 09/20 - Hgb stable at 7.6, no evidence of active bleeding from surgical site - Continue to trend, recommend transfusing for Hgb < 7 Essential HTN - Hold irbesartan for hyperkalemia and normotension, restart on discharge DM type 2, controlled - A1c 6.3% 06/2023, holding home metformin - Continue FSBG AC/HS and lispro SSI - CC2 diet - Restart metformin on discharge GERD - Continue PPI Left hip osteoarthritis with postoperative reduced mobility Osteoporosis - s/p left KUSH 09/18 - PT/OT recommend subacute rehab with referrals placed - Home alendronate resumed per primary from home supply - Analgesia, bowel regimen, and DVT ppx per primary Thank you for allowing us to participate in this patient's care, we will continue to follow. Pleasecall with questions or concerns. Lucy Mcbride APRN Division of Hospital Medicine Secure chat preferred * Progress Notes - Iza Ellsworth MD - 09/25/2023 7:30 AM EDT Orthopaedic Surgery Progress Note 09/25/23 Subjective: Doing well this AM. Has rehab bed today and is looking forward to going to rehab. No questions or concerns, feeling well, tolerating diet, urinating and passing flatus. Objective: Vitals: 09/25/23 0223 BP: 138/63 Pulse: 80 Resp: 17 Temp: 36.8 ??C (98.3 ??F) SpO2: 97% Physical Examination: No acute distress Non labored breathing Peripheral perfusion intact Focused Musculoskeletal Examination: LLE Aquacel cdi HAP and KI in place. Intact ehl fhl ta gsc. Sensation intact distally. 2+ pulses. Data: Labs in last 18 hours: CBC WBC ?? Hb ?? Plt ?? Hct ?? INR ??, PTT ??, Anti-Xa ?? BMP Na 126 (L) Cl 95 (L) BUN 27 (H) Glu 126 (H) K 4.7 Co2 25 Cr 0.82 Lactate ?? Assessment & Plan: Tasneem Perales is a 88 y.o. female patient with the following orthopedic injuries: L KUSH (09/18) Edited by: Dwayne Mejia MD at 09/19/2023 1807 Tmax 98.3, HR 64-80, BP 113/50-149/72, RR 16-17, SpO2 96-99 (09/24), BMP Na 126 (09/24) Dressings: Aquacel Precautions: PHP DVT: ASA PT: Acute rehab Plan: discharge to rehab today Mobility Orders Mobility Protocol: General - Mobility Guidelines Extremity Precautions: No Extremity Precautions Other mobility precautions: Posterior hip precautions Other mobility precautions: Other precautions Iza Whiting??, Orthopedic Surgery PGY-2 [facility] Personal Pager: [phone] Orthopaedic Trauma Service Pager: [phone] Orthopaedic Recon/Spine/Foot and Ankle Service Pager: [phone] Cosigned by Griffin Santiago MD at 10/02/2023 8:29 AM EDT Associated attestation - Griffin Santiago MD - 10/02/2023 8:29 AM EDT Signature Only * Progress Notes - Marisol Woods - 09/24/2023 4:10 PM EDT Physical Therapy Treatment Patient Name: Tasneem Perales Today's Date: 09/24/2023 PT Discharge Recommendations: Subacute rehab Equipment Recommended: Patient owns appropriate equipment Subjective Pt. agreeable to therapy session. Participants in Care Family/Caregiver Present: No Family/Caregiver: Adult Daughter Presentation Oxygen Therapy: None (Room air) Lines and Tubes: Intravenous access Pre-Session: Sitting in chair Pre-Session Comments: RN consent to PT treatment . Post-Session: Call light in reach, SCDs applied, Chair alarm, Sitting in chair Post-Session Comments: all needs met. chair alarm connected to call reyes system Orthoses: (hip abd pillow) Precautions Left Lower Extremity Weight Bearing Status: Weight Bearing as Tolerated Right Lower Extremity Weight Bearing Status: Full Weight Bearing Left Upper Extremity Weight Bearing Status : Full weight bearing Right Upper Extremity Weight Bearing Status : Full weight bearing ROM Precautions: PHP Medical Precautions: Hip, Fall precautions, Post-Surgical precautions Hip Precautions: Posterior hip precautions Post-Surgical Precautions: PHP Objective Pain No complaints of pain Delirium Screening Cunningham Agitation Sedation Scale (RASS): Alert and calm Confusion Assessment Method-ICU (CAM-ICU/PCAM-ICU) Feature 3: Altered Level of Consciousness: Negative Therapeutic Activity ( Minutes) Rolling / Turning Assist level: Cues: Scooting/Bridging Assist level: Cues: Supine to Sit Assist level: Cues: Sit to Supine Assist level: Cues: Transfers Pt. performed sit to stand transfers with the below assist and cues to promote: WB through B LE's for improved balance, B LE strengthening, and core strength. To facilitate increased independence, decreased caregiver assist, pre-gait activities, for improved functional mobility. Sit to Stand Assist level:SBA, Set up, and Supervision Device:RW Cues:verbal and tactile Stand to Sit Assist level:SBA, Set up, and Supervision Device:RW Cues:verbal and tactile Bed < - > Assist level: Device: Cues: Type of transfer: Gait Training ( 11 Minutes ) 100ft Pt. Presented with an Step thru gait pattern , with RW. Requiring verbal and tactile cues for gait deviations including decreased step length, decreased stride length, and flexed posture. Pt. Was able to complete gait training with no LOB noted, patient required no rest breaks required. . Pt. Still requiring skilled gait training to addresses the above gait deviations as well as to decrease risk of falls, improved independence and decreased caregiver assistance. Assessment Pt. Increased gait speed and distance this session requiring only minor cues for proper posture. Pt. has the following impairments : decreased strength, muscle tone , and flexed posture . Pt. activity tolerance/endurance is 10 min's with rest breaks Pt. treatment session: Pt. had no adverse reaction to treatment . Pt. still requiring skilled services for functional mobility. Plan Continue PT to progress towards established goals. PT Recommendations Discharge Destination: Subacute rehab Discharge Equipment: Patient owns appropriate equipment PT Goals PT GOAL DETAILS Goal Established Date Time Frame Goal Status PT Goal 1: Pt will demonstrate ability to ambulate 150 feet with FWW: Mod I, in prep for daily homelife. 09/19/23 2 weeks PT Goal 2: Pt will demonstrate ability to perform all functional transfers: Mod I, in prep for dilyhome life. 09/19/23 2 weeks PT Goal 3: Pt will demonstrate ability to negotiate 14 stairs with Right railing: Mod I, in prep for daily home life. 09/19/23 2 weeks PT Goal 4: Pt will recit all 3 PHP: Ind, for safe mobility and discharge. 09/19/23 2 weeks Written by Marisol Woods on 09/24/23 at 4:10 PM. * Progress Notes - Lucy Mcbride Serena, [employer] - 09/24/2023 2:19 PM EDT Hospital Medicine Progress Note Subjective: Patient assessed on am rounds. Patient is sitting up in chair. Her daughter is at bedside, with questions regarding plan of care. Goal to transition to acute rehab, BAUTISTA. Patient and her daughter agree with plan to transition to rehab. Patient has been up walking with walker and tolerating well. Her sodium remains low, but appears to be trending low since August . Patient will need to follow up with PCP. Denies specific concerns at this time, home alendronate given 09/22. No concerns from nursing. Review of Systems Constitutional: Positive for fatigue. Negative for chills and fever. Respiratory: Negative for cough and shortness of breath. Cardiovascular: Negative for chest pain and palpitations. Gastrointestinal: Negative for abdominal pain, constipation, diarrhea, nausea and vomiting. Genitourinary: Negative for difficulty urinating and dysuria. Musculoskeletal: Positive for arthralgias. Negative for myalgias. Neurological: Negative for dizziness, light-headedness and numbness. Objective Physical Exam Vitals and nursing note reviewed. Constitutional: General: She is awake. She is not in acute distress. HENT: Head: Normocephalic and atraumatic. Mouth/Throat: Mouth: Mucous membranes are moist. Cardiovascular: Rate and Rhythm: Normal rate and regular rhythm. Pulses: Normal pulses. Pulmonary: Effort: Pulmonary effort is normal. No respiratory distress. Breath sounds: No wheezing. Abdominal: General: Bowel sounds are normal. There is no distension. Palpations: Abdomen is soft. Tenderness: There is no abdominal tenderness. Musculoskeletal: General: Swelling (left hip, mild) present. Right lower leg: Edema (trace) present. Left lower leg: Edema (generalized) present. Comments: Left hip Aquacel clean and intact Skin: General: Skin is warm and dry. Capillary Refill: Capillary refill takes less than 2 seconds. Findings: Bruising present. Neurological: General: No focal deficit present. Mental Status: She is alert and oriented to person, place, and time. Psychiatric: Mood and Affect: Mood normal. Behavior: Behavior normal. Temp: [36.3 ??C (97.4 ??F)-37.1 ??C (98.7 ??F)] 36.6 ??C (97.8 ??F) Heart Rate: [64-84] 74 Resp: [16] 16 BP: (126-164)/(57-72) 131/57 Recent labs: Recent labs and imaging personally reviewed and noted below: CBC: Lab Results Component Value Date WBC 6.84 09/24/2023 RBC 2.80 (L) 09/24/2023 HGB 7.8 (L) 09/24/2023 HCT 23.7 (L) 09/24/2023 PLT 319 09/24/2023 MCV 85 09/24/2023 MCH 27.9 09/24/2023 MCHC 32.9 09/24/2023 RDW 16.6 (H) 09/24/2023 NRBC 0.0 09/24/2023 Differential: Lab Results Component Value Date WBC 6.84 09/24/2023 Coagulation: No results found for: INR , PT , PTT , CLFGN Renal: Lab Results Component Value Date NA 126 (L) 09/24/2023 K 5.1 (H) 09/24/2023 CL 96 (L) 09/24/2023 CO2 25 09/24/2023 BUN 35 (H) 09/24/2023 CREATININE 0.90 09/24/2023 GLUCOSE 132 (H) 09/24/2023 CALCIUM 8.7 (L) 09/24/2023 MG 1.7 (L) 09/24/2023 PHOS 3.5 09/24/2023 Liver: No results found for: AST , ALT , ALPHO , BILITOT , BILIDIR Glucose: Lab Results Component Value Date PGLU 134 (H) 09/24/2023 PGLU 172 (H) 09/23/2023 PGLU 137 (H) 09/23/2023 Lab Results Component Value Date HGBA1C 6.0 (H) 09/04/2023 Medications: Scheduled: acetaminophen, 500 mg, Oral, q6h SREEDHAR alendronate, 70 mg, Oral, Weekly aspirin, 81 mg, Oral, BID calcium-vitamin D, 1 tablet, Oral, BID with meals insulin lispro, 0-5 Units, Subcutaneous, TID with meals insulin lispro, 0-3 Units, Subcutaneous, Twice at night pantoprazole, 40 mg, Oral, Daily before breakfast senna-docusate, 2 tablet, Oral, Nightly Continuous: As needed: bisacodyl, 10 mg, BID PRN glucose, 15 grams of glucose, q15 min PRN Or dextrose 10 %, 12.5 g, q15 min PRN glucose, 15 grams of glucose, q15 min PRN Or dextrose 10 %, 12.5 g, q15 min PRN dextrose 10 %, 25 g, q15 min PRN Or glucose, 30 grams of glucose, q15 min PRN diphenhydrAMINE, 12.5 mg, q4h PRN glucagon (human recombinant), 1 mg, q15 min PRN HYDROcodone-acetaminophen, 5 mg of hydrocodone, q6h PRN magnesium hydroxide, 10 mL, BID PRN ondansetron, 4 mg, q6h PRN polyethylene glycol, 17 g, Daily PRN Assessment/Plan Principal Problem: Hip pain, left Assessment and Plan: Tasneem Perales is a 88 y.o. female with history of HTN, DM type 2, chronic hyponatremia, GERD, HLD, thrombocytosis, CKD, and OA admitted for elective left total hip arthroplasty. Medicine is consulted for medical co-management. 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 this admit with mild hypovolemic aspect in setting of periop blood loss s/p transfusions - Na marcia of 123 on admission, improved and stable - Continue 1.5L fluid restriction, trend with BMP biweekly until stable Chronic kidney disease with chronic hyperkalemia Acute kidney injury, resolved - Cr ~ 0.8 per most recent labs, increased to 1.29 POD 1, stable at 0.9 on repeat labs - Potassium 5.6 09/03, improved to 4.8 this admit, currently 5.1 - FENa suggestive of prerenal etiology, s/p transfusion x 2 - Continue low potassium diet - Strict I/Os, avoid nephrotoxic agents, continue to monitor renal function Acute blood loss on chronic normocytic anemia - Suspect degree of anemia in setting of CKD with acute blood loss anemia - Hgb 10.6 09/03, s/p 2 units PRBCs this admit with last on 09/20 - Hgb now stable at 7.6, no evidence of active bleeding from surgical site - Continue to trend, recommend transfusing for Hgb < 7 Essential HTN - Hold irbesartan for hyperkalemia and normotension DM type 2, controlled - A1c 6.3% 06/2023, holding home metformin - Continue FSBG AC/HS and lispro SSI - CC2 diet GERD - Continue PPI Left hip osteoarthritis with postoperative reduced mobility Osteoporosis - s/p left KUSH 09/18 - PT/OT recommend subacute rehab with referrals placed - Home alendronate resumed per primary from home supply - Analgesia, bowel regimen, and DVT ppx per primary Thank you for allowing us to participate in this patient's care, we will continue to follow. Pleasecall with questions or concerns. Lucy Mcbride APRN Division of Hospital Medicine Secure chat preferred * Progress Notes - Marisol Woods - 09/24/2023 10:30 AM EDT Physical Therapy Treatment Patient Name: Tasneem Perales Today's Date: 09/24/2023 PT Discharge Recommendations: Subacute rehab Equipment Recommended: Patient owns appropriate equipment Subjective Pt. agreeable to therapy session. Participants in Care Family/Caregiver Present: Yes Family/Caregiver: Adult Daughter Presentation Oxygen Therapy: None (Room air) Lines and Tubes: Intravenous access Pre-Session: Lines intact, Sitting in chair Pre-Session Comments: RN consent to PT treatment . Post-Session: Call light in reach, SCDs applied, Chair alarm, Sitting in chair, RN notified Post-Session Comments: all needs met. chair alarm connected to call reyes system Orthoses: (hip abd pillow) Precautions Left Lower Extremity Weight Bearing Status: Weight Bearing as Tolerated Right Lower Extremity Weight Bearing Status: Full Weight Bearing Left Upper Extremity Weight Bearing Status : Full weight bearing Right Upper Extremity Weight Bearing Status : Full weight bearing ROM Precautions: PHP Medical Precautions: Hip, Fall precautions, Post-Surgical precautions Hip Precautions: Posterior hip precautions Post-Surgical Precautions: PHP Objective Pain No complaints of pain Delirium Screening Cunningham Agitation Sedation Scale (RASS): Alert and calm Confusion Assessment Method-ICU (CAM-ICU/PCAM-ICU) Feature 3: Altered Level of Consciousness: Negative Therapeutic Activity ( 15 Minutes) Pt. Required verbal, tactile and visual cues for above transfers for safe handling, functional mobility and to promote self assist strategies for independence. Pt. Engaged in the above transfers to improve core strength , balance , B LE's strength and overall functional mobility. Rolling / Turning Assist level: Cues: Scooting/Bridging Assist level: Cues: Supine to Sit Assist level: Cues: Sit to Supine Assist level: Cues: Transfers Pt. performed sit to stand transfers with the below assist and cues to promote: WB through B LE's for improved balance, B LE strengthening, and core strength. To facilitate increased independence, decreased caregiver assist, pre-gait activities, for improved functional mobility. Sit to Stand Assist level:CGA, Set up, and Supervision Device:RW Cues:verbal and tactile Stand to Sit Assist level:CGA, Set up, and Supervision Device:RW Cues:verbal and tactile Bed < - > BSC Assist level:CGA, Set up, and Supervision Device:RW Cues:verbal and tactile Type of transfer: Gait to toilet Gait Training ( 8 Minutes ) 95ft Pt. Presented with an Step thru gait pattern , with RW. Requiring verbal and tactile cues for gait deviations including decreased step length, decreased stride length, and flexed posture. Pt. Was able to complete gait training with no LOB noted, patient required no rest breaks required. . Pt. Still requiring skilled gait training to addresses the above gait deviations as well as to decrease risk of falls, improved independence and decreased caregiver assistance. Assessment Pt. And family asking questions about mobility at home and if the patient needs to walk in a parking lot out side. Pt. And family educated that once she is at rehab they will be able to tell them what amount of ambulation will be appropriate at discharge. Pt. Family instructed on therex again secondary to daughter having questions. Pt. has the following impairments : decreased strength, decreased core strength , muscle tone , andflexed posture . Pt. activity tolerance/endurance is limited to 20-30 min's with rest breaks Pt. treatment session: Pt. had no adverse reaction to treatment . . Pt. still requiring skilled services for functional mobility. Plan Continue PT to progress towards established goals. PT Recommendations Discharge Destination: Subacute rehab Discharge Equipment: Patient owns appropriate equipment PT Goals PT GOAL DETAILS Goal Established Date Time Frame Goal Status PT Goal 1: Pt will demonstrate ability to ambulate 150 feet with FWW: Mod I, in prep for daily homelife. 09/19/23 2 weeks PT Goal 2: Pt will demonstrate ability to perform all functional transfers: Mod I, in prep for dilyhome life. 09/19/23 2 weeks PT Goal 3: Pt will demonstrate ability to negotiate 14 stairs with Right railing: Mod I, in prep for daily home life. 09/19/23 2 weeks PT Goal 4: Pt will recit all 3 PHP: Ind, for safe mobility and discharge. 09/19/23 2 weeks Written by Marisol Woods on 09/24/23 at 4:21 PM. * Progress Notes - Sangita Baez RN - 09/24/2023 10:28 AM EDT Case Management Adult Progress Note Tasneem Perales 88 y.o. female CSN: [id number] Admission: 09/19/2023 8:02 AM Primary Problem: Hip pain, left POC discussed with primary team. Per MD, patient is medically ready to discharge to [facility] when bad available. MARITZA called [facility] ernesto Castro ([phone]) to notify. She will update bautista. MARITZA met at bedside with patient and daughter Shaylee Richards to discuss discharge POC. Patient and Shaylee agreeable to [facility]. Family said they prefer patient to parag by the [facility] W/C Shuttle Van if able, or maybe a friend could transport if able. Update: MARITZA called [facility] ernesto Castro to check on update and they are awaiting to hear from [facility] still. Update: Gloria said patient has a bed on the General Rehab Unit (GRU) tomorrow 09/25/23. Number to call report: [phone] Number to fax DC Summary: [phone] * Progress Notes - Iza Ellsworth MD - 09/24/2023 6:33 AM EDT Orthopaedic Surgery Progress Note 09/24/23 Subjective: Doing well this AM. Pain well controlled. Urinating, passing flatus. No questions or concerns. Had her alendronate yesterday. Objective: Vitals: 09/24/23 0147 BP: 133/63 Pulse: 84 Resp: Temp: 36.9 ??C (98.4 ??F) SpO2: 98% Physical Examination: No acute distress Non labored breathing Peripheral perfusion intact Focused Musculoskeletal Examination: LLE Aquacel cdi HAP and KI in place. Intact ehl fhl ta gsc. Sensation intact distally. 2+ pulses. Data: Labs in last 18 hours: CBC WBC ?? Hb ?? Plt ?? Hct ?? INR ??, PTT ??, Anti-Xa ?? BMP Na 126 (L) Cl 96 (L) BUN 35 (H) Glu 132 (H) K 5.1 (H) Co2 25 Cr 0.90 Lactate ?? Assessment & Plan: Tasneem Perales is a 88 y.o. female patient with the following orthopedic injuries: L KUSH (09/18) Edited by: Dwayne Mejia MD at 09/19/2023 1807 Tmax 98.8, HR 71-84, BP 114/49-164/70, RR 16, SpO2 92-98 (09/23), BMP Na 126, K 5.1 (09/23) Got alendronate yesterday Dressings: Aquacel Precautions: PHP DVT: ASA PT: Acute rehab Plan: Pending rehab placement Mobility Orders Mobility Protocol: General - Mobility Guidelines Extremity Precautions: No Extremity Precautions Other mobility precautions: Posterior hip precautions Other mobility precautions: Other precautions Iza Whiting??, Orthopedic Surgery PGY-2 [facility] Personal Pager: [phone] Orthopaedic Trauma Service Pager: [phone] Orthopaedic Recon/Spine/Foot and Ankle Service Pager: [phone] Cosigned by Griffin Santiago MD at 10/02/2023 8:28 AM EDT Associated attestation - Griffin Santiago MD - 10/02/2023 8:28 AM EDT Signature Only * Anay Muir - Citlalli Mcmahon PA - 09/23/2023 2:00 PM EDT Images from the original note were not included. [id number] Discharge Instructions: Eating a Low-Potassium Diet Your healthcare provider has prescribed a low-potassium diet for you. This kind of diet is advised for people who have certain kidney problems. Potassium is needed for muscle function. But too much potassium is a health risk. Potassium is found in many foods. Read below to find out how to change your diet. Foods to limit Some foods are high in potassium. Check the nutrition labels of the foods you are eating to see theamount of potassium in these foods. Limit your daily intake of the foods in the list below. ?? Fruits: apricots (canned and fresh), bananas, cantaloupe, honeydew melon, kiwi, nectarines, pomegranates, oranges, orange juice, pears, dried fruits (apricots, dates, figs, prunes), and prune juice ?? Vegetables: asparagus, avocado, artichoke, bamboo shoots, beets, Ralph sprouts, cabbage, celery, chard, okra, potatoes (white and sweet), pumpkin, rutabaga, spinach (cooked), squash, tomato, tomato sauce, tomato juice, and vegetable juice cocktail ?? Legumes: black-eyed peas, chickpeas, lentils, galeana beans, navy beans, red kidney beans, soybeans, and split peas ?? Nuts and seeds: almonds, [place] nuts, cashews, peanuts, peanut butter, pecans, pumpkin seeds, sunflower seeds, and walnuts ?? Breads and cereals: bran and whole-grain products ?? Dairy foods: milk, cheese, ice cream, yogurt ?? Animal protein: all forms of animal protein ?? Other: chocolate, cocoa, coconut milk, and molasses Tips ?? Ask your healthcare provider how much potassium you are allowed each day. This will help you figure out serving sizes for your needs. ?? Check labels for potassium. It may be listed as potassium chloride. ?? Don't use salt substitutes. These often have potassium in them. ?? Cook frozen fruits and vegetables in water. Rinse and drain them well before eating. ?? Drain liquid from all canned fruits and vegetables. Rinse them before eating. ?? Reduce the potassium in potatoes. Peel them, slice thinly, and soak in water for at least 4 hours. ?? Reduce the potassium in green leafy vegetables. Soak them in water for at least 4 hours. ?? Eat white rice and refined white flour products. These include white bread, pasta, and grits. Follow-up Make a follow-up appointment as advised by your healthcare provider. When to call your healthcare provider Call your healthcare provider right away if you have any of the following: ?? Tiredness (fatigue) ?? Shortness of breath ?? Chest pain ?? Slow, irregular heartbeat ?? Fainting ?? Dizziness ?? Lightheadedness ?? Confusion ?? Feeling like your heart is pounding (palpitations) Last Reviewed Date: 2022 ?? 8251-3104 The [employer]. All rights reserved. This information is not intended as a substitute for professional medical care. Always follow your healthcare professional's instructions. * Anay [employer] - Citlalli Mcmahon PA - 09/23/2023 1:59 PM EDT Images from the original note were not included. [id number] Discharge Instructions: Limiting Fluids Your healthcare provider has prescribed fluid restriction for you. This means you need to limit theamount of fluids that you drink. If your kidneys are healthy, they balance the amount of fluid thatenters and leaves your body. If your body can't maintain this fluid balance because of illness or injury, you may need to limit the amount you drink. Limit your oral fluid intake to 1500mL (1.5L) daily Measuring fluids Drink the amount of fluid recommended by your healthcare provider. Don?t drink more or less. Write down the liquid limits your healthcare provider recommended. Amounts are usually given in a certain number of ml or cc (1 cc equals 1 ml). Here are some measurements to help you: ?? 1 ounce = about 30 ml = about 30 cc ?? 1 cup = 8 oz = about 240 cc = about 240 ml ?? 4 cups = 32 oz = about 1,000 ml (or cc) = almost 1 liter Limiting fluids ?? Drink only when you are thirsty. ?? Try the following tips to help you feel less thirsty: o Rinse your mouth with water, but don?t swallow. o Rinse your mouth with cool mouthwash. o Chew sugar-free gum or hard candy. o Suck on a few ice chips. o Try sucking on a lemon wedge to moisten your mouth. o Freeze grapes, berries, or small bits of fruit and let them thaw slowly in your mouth. ?? Drink from a small cup or glass. ?? Divide your fluids up during the day. Divide them between meals and snacks. ?? Take your medicine with your liquids at mealtime. ?? Eat only a limited amount of the following ?liquid foods : soups, frozen juice bars, gravy, ices, sauces, milk shakes, pudding, sherbet, custard, ice cream, ice cubes, or any other food that becomes liquid when it stays at room temperature. ?? Don't have salty foods. A high salt intake can make you thirsty. Remember, some foods may not taste salty but may still contain a high amount of salt (sodium). Read food labels to find the amount of sodium. A food is low sodium if it contains 140 mg or less of sodium per serving. ?? If you have diabetes, control your blood sugar level to help control your thirst. Follow-up Make a follow-up appointment with your healthcare provider, or as advised, When to call your healthcare provider Call your provider right away if any of the following occur: ?? Dizziness and lightheadedness ?? Fainting ?? Chest pain ?? Shortness of breath ?? Weight gain of more than 2 pounds in 24 hours, or more than 5 pounds in 1 week ?? Swelling in the hands, feet, or ankles ?? Confusion Last Reviewed Date: 2022 ?? [id number] [employer]. All rights reserved. This information is not intended as a substitute for professional medical care. Always follow your healthcare professional's instructions.This information has been modified by your health care provider with permission from the publisher. * Progress Notes - Markos Waterman - 09/23/2023 1:02 PM EDT Physical Therapy Treatment Patient Name: Tasneem Perales Today's Date: 09/23/2023 PT Discharge Recommendations: Subacute rehab Equipment Recommended: Patient owns appropriate equipment Subjective Pt was agreeable with therapy. Participants in Care Family/Caregiver Present: Yes Family/Caregiver: Adult Daughter Toll Settlement Clerk: Not Applicable Presentation Oxygen Therapy: None (Room air) Lines and Tubes: Intravenous access Pre-Session: Supine, Head of bed elevated, Lines intact, Bed alarm Pre-Session Comments: RN consent to PT treatment . Post-Session: Call light in reach, SCDs applied, Chair alarm, Sitting in chair, RN notified Post-Session Comments: all needs met. chair alarm connected to call reyes system Precautions Left Lower Extremity Weight Bearing Status: Weight Bearing as Tolerated Right Lower Extremity Weight Bearing Status: Full Weight Bearing Left Upper Extremity Weight Bearing Status : Full weight bearing Right Upper Extremity Weight Bearing Status : Full weight bearing ROM Precautions: PHP Medical Precautions: Hip, Fall precautions, Post-Surgical precautions Hip Precautions: Posterior hip precautions Post-Surgical Precautions: PHP Objective Pain Hip pain /10. RN aware. Delirium Screening Cunningham Agitation Sedation Scale (RASS): Alert and calm Confusion Assessment Method-ICU (CAM-ICU/PCAM-ICU) Feature 3: Altered Level of Consciousness: Negative Bed Mobility Bed Mobility Exam: Scooting/Bridging Level of [place]: Contact guard Physical/Nonphysical Assist: Verbal Cues, Set-up required Bed Mobility Exam: Supine to Sit Level of [place]: Minimum assist (75% patient's effort) Physical/Nonphysical Assist: Supervision, Verbal Cues, Nonverbal cues (demo/gestures), Minimal cues Transfers Transfer Exam: Sit to stand Level of [place]: Contact guard Physical/Nonphysical Assist: Verbal Cues, Minimal cues, Set-up required Assistive Device: Walker, rolling Transfer Exam: Stand to Sit Level of [place]: Contact guard Physical/Nonphysical Assist: Verbal Cues, Minimal cues, Set-up required Assistive Device: Walker, rolling Toilet Transfer Level of [place]: Contact guard Physical/Nonphysical Assist: Set-up required, Minimal cues Type of Transfer: Sidesteps, To bedside commode Assistive Device: Walker, rolling Ambulation Device: Rolling walker Assistance: Contact guard assist Distance : 150 ft Ambulation Comments: Max cues for posture and min cues for hip precautions during turns. Decreased akilah and forward posture. Therapeutic Activity (15 minutes) Pt participated in therapeutic activities with emphasis on hip precautions education, transfers andambulation for increased independence. Therapeutic Exercise (8 minutes) Performed seated LAQ, AP and quad sets. Assessment Pt ambulated increased distances and she is progressing towards therapy goals, however she still requires cues for posture and hip precautions. Pt would continue to benefit from PT to address needs. PT Recommendations Discharge Destination: Subacute rehab Discharge Equipment: Patient owns appropriate equipment Plan Continue with POC. PT Goals PT GOAL DETAILS Goal Established Date Time Frame Goal Status PT Goal 1: Pt will demonstrate ability to ambulate 150 feet with FWW: Mod I, in prep for daily homelife. 09/19/23 2 weeks PT Goal 2: Pt will demonstrate ability to perform all functional transfers: Mod I, in prep for dilyhome life. 09/19/23 2 weeks PT Goal 3: Pt will demonstrate ability to negotiate 14 stairs with Right railing: Mod I, in prep for daily home life. 09/19/23 2 weeks PT Goal 4: Pt will recit all 3 PHP: Ind, for safe mobility and discharge. 09/19/23 2 weeks Written by Markos Waterman on 09/23/23 at 3:18 PM. * Progress Notes - Citlalli Mcmahon PA - 09/23/2023 11:54 AM EDT [facility] Medicine Progress Note Subjective: Sitting in chair this am with daughter at bedside, voices fatigue after ambulating with therapy. States left hip pain is better controlled today and slept without interruption overnight. Believes sheis drinking fairly consistently with consistent UOP. Daughter notes patient is eating saltier snacks in hopes to increase sodium level. Reviewed am labs with patient and her daughter. Denies specificconcerns at this time, home alendronate ordered by primary team this am for inpatient use. Review of Systems Constitutional: Positive for fatigue. Negative for chills and fever. Respiratory: Negative for cough and shortness of breath. Cardiovascular: Negative for chest pain and palpitations. Gastrointestinal: Negative for abdominal pain, constipation, diarrhea, nausea and vomiting. Genitourinary: Negative for difficulty urinating and dysuria. Musculoskeletal: Positive for arthralgias. Negative for myalgias. Neurological: Negative for dizziness, light-headedness and numbness. Objective Physical Exam Vitals and nursing note reviewed. Constitutional: General: She is awake. She is not in acute distress. HENT: Head: Normocephalic and atraumatic. Mouth/Throat: Mouth: Mucous membranes are moist. Cardiovascular: Rate and Rhythm: Normal rate and regular rhythm. Pulses: Normal pulses. Pulmonary: Effort: Pulmonary effort is normal. No respiratory distress. Breath sounds: No wheezing. Abdominal: General: Bowel sounds are normal. There is no distension. Palpations: Abdomen is soft. Tenderness: There is no abdominal tenderness. Musculoskeletal: General: Swelling (left hip, mild) present. Right lower leg: Edema (trace) present. Left lower leg: Edema (generalized) present. Comments: Left hip Aquacel clean and intact Skin: General: Skin is warm and dry. Capillary Refill: Capillary refill takes less than 2 seconds. Findings: Bruising present. Neurological: General: No focal deficit present. Mental Status: She is alert and oriented to person, place, and time. Psychiatric: Mood and Affect: Mood normal. Behavior: Behavior normal. Temp: [36.3 ??C (97.3 ??F)-36.7 ??C (98.1 ??F)] 36.4 ??C (97.6 ??F) Heart Rate: [71-87] 75 BP: (114-133)/(49-70) 114/49 Recent labs: Recent labs and imaging personally reviewed and noted below: CBC: Lab Results Component Value Date WBC 6.72 09/23/2023 RBC 2.69 (L) 09/23/2023 HGB 7.6 (L) 09/23/2023 HCT 22.4 (L) 09/23/2023 PLT 273 09/23/2023 MCV 83 09/23/2023 MCH 28.3 09/23/2023 MCHC 33.9 09/23/2023 RDW 16.4 (H) 09/23/2023 NRBC 0.0 09/23/2023 Differential: Lab Results Component Value Date WBC 6.72 09/23/2023 Coagulation: No results found for: INR , PT , PTT , CLFGN Renal: Lab Results Component Value Date NA 128 (L) 09/23/2023 K 5.3 (H) 09/23/2023 CL 97 09/23/2023 CO2 24 09/23/2023 BUN 34 (H) 09/23/2023 CREATININE 0.93 09/23/2023 GLUCOSE 106 (H) 09/23/2023 CALCIUM 8.9 09/23/2023 Liver: No results found for: AST , ALT , ALPHO , BILITOT , BILIDIR Glucose: Lab Results Component Value Date PGLU 140 (H) 09/23/2023 PGLU 103 (H) 09/23/2023 PGLU 148 (H) 09/22/2023 PGLU 134 (H) 09/22/2023 Lab Results Component Value Date HGBA1C 6.0 (H) 09/04/2023 Medications: Scheduled: acetaminophen, 500 mg, Oral, q6h SREEDHAR alendronate, 70 mg, Oral, Weekly aspirin, 81 mg, Oral, BID calcium-vitamin D, 1 tablet, Oral, BID with meals insulin lispro, 0-5 Units, Subcutaneous, TID with meals insulin lispro, 0-3 Units, Subcutaneous, Twice at night pantoprazole, 40 mg, Oral, Daily before breakfast polyethylene glycol, 17 g, Oral, Daily with breakfast senna-docusate, 2 tablet, Oral, Nightly Continuous: As needed: bethanechol, 20 mg, Once PRN bisacodyl, 10 mg, BID PRN glucose, 15 grams of glucose, q15 min PRN Or dextrose 10 %, 12.5 g, q15 min PRN glucose, 15 grams of glucose, q15 min PRN Or dextrose 10 %, 12.5 g, q15 min PRN dextrose 10 %, 25 g, q15 min PRN Or glucose, 30 grams of glucose, q15 min PRN diphenhydrAMINE, 12.5 mg, q4h PRN glucagon (human recombinant), 1 mg, q15 min PRN HYDROcodone-acetaminophen, 5 mg of hydrocodone, q6h PRN magnesium hydroxide, 10 mL, BID PRN ondansetron, 4 mg, q6h PRN Assessment/Plan Principal Problem: Hip pain, left Assessment and Plan: Tasneem Perales is a 88 y.o. female with history of HTN, DM type 2, chronic hyponatremia, GERD, HLD, thrombocytosis, CKD, and OA admitted for elective left total hip arthroplasty. Medicine is consulted for medical co-management. 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 this admit with mild hypovolemic aspect in setting of periop blood loss s/p transfusions - Na marcia of 123 this admit, improved to 128 this am - Continue 1.5L fluid restriction, trend with BMP in am Chronic kidney disease with chronic hyperkalemia Acute kidney injury, resolved - Cr ~ 0.8 per most recent labs, increased to 1.29 POD 1, stable at 0.9 on repeat labs - Potassium 5.6 09/03, improved to 4.8 this admit, currently 5.3 - FENa suggestive of prerenal etiology, s/p transfusion x 2 - Continue low potassium diet - Strict I/Os, avoid nephrotoxic agents, continue to monitor renal function Acute blood loss on chronic normocytic anemia - Suspect degree of anemia in setting of CKD with acute blood loss anemia - Hgb 10.6 09/03, s/p 2 units PRBCs this admit with last on 09/20 - Hgb now stable at 7.6, no evidence of active bleeding from surgical site - Continue to trend, recommend transfusing for Hgb < 7 Essential HTN - Hold irbesartan for hyperkalemia and normotension DM type 2, controlled - A1c 6.3% 06/2023, holding home metformin - Continue FSBG AC/HS and lispro SSI - CC2 diet GERD - Continue PPI Left hip osteoarthritis with postoperative reduced mobility Osteoporosis - s/p left KUSH 09/18 - PT/OT recommend subacute rehab with referrals placed - Home alendronate resumed per primary from home supply - Analgesia, bowel regimen, and DVT ppx per primary Thank you for allowing us to participate in this patient's care, we will continue to follow. Pleasecall with questions or concerns. [facility] Division of Hospital Medicine Secure chat preferred * Progress Notes - Markos Waterman - 09/23/2023 9:25 AM EDT Physical Therapy Treatment Patient Name: Tasneem Perales Today's Date: 09/23/2023 PT Discharge Recommendations: Subacute rehab Equipment Recommended: Patient owns appropriate equipment Subjective Pt was agreeable with therapy and requested to use the BSC. Participants in Care Family/Caregiver Present: Yes Family/Caregiver: Adult Daughter Toll Settlement Clerk: Not Applicable Presentation Oxygen Therapy: None (Room air) Lines and Tubes: Intravenous access Pre-Session: Sitting in chair, Chair alarm Pre-Session Comments: RN consent to PT treatment . Post-Session: Call light in reach, SCDs applied, Chair alarm, Sitting in chair, RN notified Post-Session Comments: all needs met. chair alarm connected to call reyes system Precautions Left Lower Extremity Weight Bearing Status: Weight Bearing as Tolerated Right Lower Extremity Weight Bearing Status: Full Weight Bearing Left Upper Extremity Weight Bearing Status : Full weight bearing Right Upper Extremity Weight Bearing Status : Full weight bearing ROM Precautions: PHP Medical Precautions: Hip, Fall precautions, Post-Surgical precautions Hip Precautions: Posterior hip precautions Post-Surgical Precautions: PHP Objective Pain Left hip pain 4/10 with mobility. RN aware. Delirium Screening Cunningham Agitation Sedation Scale (RASS): Alert and calm Confusion Assessment Method-ICU (CAM-ICU/PCAM-ICU) Feature 3: Altered Level of Consciousness: Negative Transfers Transfer Exam: Sit to stand Level of [place]: Contact guard Physical/Nonphysical Assist: Verbal Cues, Minimal cues, Set-up required Assistive Device: Walker, rolling Transfer Exam: Stand to Sit Level of [place]: Contact guard Physical/Nonphysical Assist: Verbal Cues, Minimal cues, Set-up required Assistive Device: Walker, rolling Toilet Transfer Level of [place]: Contact guard Physical/Nonphysical Assist: Set-up required, Minimal cues Type of Transfer: Sidesteps, To bedside commode Assistive Device: Walker, rolling Ambulation Device: Rolling walker Assistance: Contact guard assist Distance : 100ft Ambulation Comments: Cues for posture and RW management. Pt aware of hip precautions. Therapeutic Activity (17 minutes) Pt participated in therapeutic activities with emphasis on transfers and ambulation for increased independence. Therapeutic Exercise (8 minutes) Pt reviewed and performed phase I HEP . Program Notes Posterior Hip Exercises - Phase 1 (Days 1-7) Ankle Pumps - 3 x daily - 20 reps - 3 hold - Phase 1 (Days 1- 7) Knee Push Downs - 3 x daily - 20 reps - 3 hold - Phase 1 (Days 1-7) Buttocks Squeeze - 3 x daily - 20 reps - 3 hold - Phase 1 (Days 1-7)Heel Slide (Supine) - 3 x daily - 20 reps - 3 hold - Phase 1 (Days 1-7) Short Arc Quad - 3 x daily - 20 reps - 3 hold - Phase 1 (Days 1-7) Seated Knee Flexion - 3 x daily - 20 reps - 3 hold - Phase 1(Days 1-7) Long Arc Quad - 3 x daily - 20 reps - 3 hold Education about posterior hip replacement. Assessment Pt is progressing towards therapy goals and continue appropriate to subacute rehab prior to discharge home to address deficits in endurance, strength and activity tolerance. PT Recommendations Discharge Destination: Subacute rehab Discharge Equipment: Patient owns appropriate equipment Plan Continue with POC. PT Goals PT GOAL DETAILS Goal Established Date Time Frame Goal Status PT Goal 1: Pt will demonstrate ability to ambulate 150 feet with FWW: Mod I, in prep for daily homelife. 09/19/23 2 weeks PT Goal 2: Pt will demonstrate ability to perform all functional transfers: Mod I, in prep for dilyhome life. 09/19/23 2 weeks PT Goal 3: Pt will demonstrate ability to negotiate 14 stairs with Right railing: Mod I, in prep for daily home life. 09/19/23 2 weeks PT Goal 4: Pt will recit all 3 PHP: Ind, for safe mobility and discharge. 09/19/23 2 weeks Written by Markos Waterman on 09/23/23 at 12:17 PM. * Care Plan - Alberta Powers RN - 09/23/2023 8:45 AM EDT Problem: Adult Inpatient Plan of Care Goal: Plan of Care Review Outcome: Ongoing, Progressing Flowsheets Taken 09/23/2023 0845 by Alberta Powers RN Progress: improving Taken 09/21/2023 1320 by Ayah Schmid RN Plan of Care Reviewed With: patient Goal: Patient-Specific Goal (Individualized) Outcome: Ongoing, Progressing Goal: Absence of Hospital-Acquired Illness or Injury Outcome: Ongoing, Progressing Goal: Optimal Comfort and Wellbeing Outcome: Ongoing, Progressing Goal: Readiness for Transition of Care Outcome: Ongoing, Progressing Problem: Fall Injury Risk Goal: Absence of Fall and Fall-Related Injury Outcome: Ongoing, Progressing Problem: Surgery Nonspecified Goal: Absence of Bleeding Outcome: Ongoing, Progressing Goal: Effective Bowel Elimination Outcome: Ongoing, Progressing Goal: Fluid and Electrolyte Balance Outcome: Ongoing, Progressing Goal: Blood Glucose Level Within Targeted Range Outcome: Ongoing, Progressing Goal: Absence of Infection Signs and Symptoms Outcome: Ongoing, Progressing Goal: Anesthesia/Sedation Recovery Outcome: Ongoing, Progressing Goal: Optimal Pain Control and Function Outcome: Ongoing, Progressing Goal: Nausea and Vomiting Relief Outcome: Ongoing, Progressing Goal: Effective Urinary Elimination Outcome: Ongoing, Progressing Goal: Effective Oxygenation and Ventilation Outcome: Ongoing, Progressing * Progress Notes - Iza Ellsworth MD - 09/23/2023 7:25 AM EDT Orthopaedic Surgery Progress Note 09/23/23 Subjective: Doing well this AM. Sitting up in bed using her IS. Asking about her weekly alendronate. Pain well controlled. Objective: Vitals: 09/23/23 0313 BP: 122/61 Pulse: 77 Resp: Temp: 36.7 ??C (98.1 ??F) SpO2: 98% Physical Examination: No acute distress Non labored breathing Peripheral perfusion intact Focused Musculoskeletal Examination: LLE Aquacel cdi HAP and KI in place. Intact ehl fhl ta gsc. Sensation intact distally. 2+ pulses. Data: Labs in last 18 hours: CBC WBC 6.72 Hb 7.6 (L) Plt 273 Hct 22.4 (L) INR ??, PTT ??, Anti-Xa ?? BMP Na 128 (L) Cl 97 BUN 34 (H) Glu 106 (H) K 5.3 (H) Co2 24 Cr 0.93 Lactate ?? Assessment & Plan: Tasneem Perales is a 88 y.o. female patient with the following orthopedic injuries: L KUSH (09/18) Edited by: Dwayne Mejia MD at 09/19/2023 1807 Tmax 98.1, HR 73-91, BP 103/41-159/62, RR 14-16, SpO2 96-98, UOP 1 unmeasured (09/22), H/H 7.6/22.4,BMP K 5.3 (09/22) Discussed alendronate with [facility] for her to take today. Pharmacy will verify her home med. Dressings: Aquacel Precautions: PHP DVT: ASA PT: Acute rehab Plan: Pending rehab placement Mobility Orders Mobility Protocol: General - Mobility Guidelines Extremity Precautions: No Extremity Precautions Other mobility precautions: Posterior hip precautions Other mobility precautions: Other precautions Iza Whiting??, Orthopedic Surgery PGY-2 [facility] Personal Pager: [phone] Orthopaedic Trauma Service Pager: [phone] Orthopaedic Recon/Spine/Foot and Ankle Service Pager: [phone] Cosigned by Griffin Santiago MD at 10/02/2023 8:28 AM EDT Associated attestation - Griffin Santiago MD - 10/02/2023 8:28 AM EDT Signature Only * Progress Notes - Citlalli Mcmahon PA - 09/22/2023 3:02 PM EDT [facility] Medicine Progress Note Subjective: Evaluated this am with daughter at beside. Notes difficulty sleeping from ~ [id number] due to left hip pain, now controlled after pain medication, though does endorse mild fatigue. Increased po fluid intake as well as solute intake yesterday with sodium 124 this am, 126 on repeat. Feels UOP as increased as well, utilizing BSC for voids. Denies lightheadedness, dizziness, chest pain, or nausea. Review of Systems Constitutional: Positive for fatigue. Negative for chills and fever. Respiratory: Negative for cough and shortness of breath. Cardiovascular: Negative for chest pain and palpitations. Gastrointestinal: Negative for abdominal pain, constipation, diarrhea and nausea. Genitourinary: Negative for difficulty urinating and dysuria. Musculoskeletal: Positive for arthralgias. Negative for myalgias. Neurological: Negative for dizziness and light-headedness. Psychiatric/Behavioral: Negative. Objective Physical Exam Vitals and nursing note reviewed. Constitutional: General: She is awake. She is not in acute distress. HENT: Head: Normocephalic and atraumatic. Mouth/Throat: Mouth: Mucous membranes are moist. Cardiovascular: Rate and Rhythm: Normal rate and regular rhythm. Heart sounds: No murmur heard. Pulmonary: Effort: Pulmonary effort is normal. No respiratory distress. Breath sounds: No wheezing. Abdominal: General: Bowel sounds are normal. There is no distension. Palpations: Abdomen is soft. Tenderness: There is no abdominal tenderness. Musculoskeletal: General: Swelling (left hip, mild) present. Right lower leg: Edema (trace) present. Left lower leg: Edema (generalized) present. Comments: Left hip Aquacel clean and intact Skin: General: Skin is warm and dry. Capillary Refill: Capillary refill takes less than 2 seconds. Findings: Bruising present. Neurological: General: No focal deficit present. Mental Status: She is alert and oriented to person, place, and time. Psychiatric: Mood and Affect: Mood normal. Behavior: Behavior normal. Temp: [36.4 ??C (97.5 ??F)-36.9 ??C (98.4 ??F)] 36.5 ??C (97.7 ??F) Heart Rate: [73-91] 73 Resp: [14-16] 14 BP: (101-159)/(41-64) 103/41 Recent labs: Recent labs and imaging personally reviewed and noted below: CBC: Lab Results Component Value Date WBC 6.77 09/22/2023 RBC 2.81 (L) 09/22/2023 HGB 7.8 (L) 09/22/2023 HCT 23.1 (L) 09/22/2023 PLT 240 09/22/2023 MCV 82 09/22/2023 MCH 27.8 09/22/2023 MCHC 33.8 09/22/2023 RDW 16.1 (H) 09/22/2023 NRBC 0.0 09/22/2023 Differential: Lab Results Component Value Date WBC 6.77 09/22/2023 Coagulation: No results found for: INR , PT , PTT , CLFGN Renal: Lab Results Component Value Date NA 126 (L) 09/22/2023 K 4.8 09/22/2023 CL 95 (L) 09/22/2023 CO2 23 09/22/2023 BUN 32 (H) 09/22/2023 CREATININE 0.93 09/22/2023 GLUCOSE 146 (H) 09/22/2023 CALCIUM 8.8 (L) 09/22/2023 Liver: No results found for: AST , ALT , ALPHO , BILITOT , BILIDIR Glucose: Lab Results Component Value Date PGLU 139 (H) 09/22/2023 PGLU 100 (H) 09/22/2023 PGLU 189 (H) 09/21/2023 PGLU 137 (H) 09/21/2023 Lab Results Component Value Date HGBA1C 6.0 (H) 09/04/2023 Medications: Scheduled: acetaminophen, 500 mg, Oral, q6h SREEDHAR aspirin, 81 mg, Oral, BID calcium-vitamin D, 1 tablet, Oral, BID with meals insulin lispro, 0-5 Units, Subcutaneous, TID with meals insulin lispro, 0-3 Units, Subcutaneous, Twice at night pantoprazole, 40 mg, Oral, Daily before breakfast polyethylene glycol, 17 g, Oral, Daily with breakfast senna-docusate, 2 tablet, Oral, Nightly Continuous: As needed: bethanechol, 20 mg, Once PRN bisacodyl, 10 mg, BID PRN glucose, 15 grams of glucose, q15 min PRN Or dextrose 10 %, 12.5 g, q15 min PRN glucose, 15 grams of glucose, q15 min PRN Or dextrose 10 %, 12.5 g, q15 min PRN dextrose 10 %, 25 g, q15 min PRN Or glucose, 30 grams of glucose, q15 min PRN diphenhydrAMINE, 12.5 mg, q4h PRN glucagon (human recombinant), 1 mg, q15 min PRN HYDROcodone-acetaminophen, 5 mg of hydrocodone, q6h PRN magnesium hydroxide, 10 mL, BID PRN ondansetron, 4 mg, q6h PRN Assessment/Plan Principal Problem: Hip pain, left Assessment and Plan: Tasneem Perales is a 88 y.o. female with history of HTN, DM type 2, chronic hyponatremia, GERD, HLD, thrombocytosis, CKD, and OA admitted for elective left total hip arthroplasty. Medicine is consulted for medical co-management. 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 this admit with mild hypovolemic aspect in setting of periop blood loss s/p transfusions - Na marcia of 123 this admit, improved to 126 this am - Not currently receiving potentially exacerbating medications, continue 1.5L fluid restriction - Trend with BMP in am Acute kidney injury on chronic kidney disease, improved Hyperkalemia, POA, resolved - Cr ~ 0.8 per most recent labs, increased to 1.29 POD 1, stable at 1.0 this am - Potassium 5.6 09/03, stable at 4.8 this am - FENa suggestive of prerenal etiology, s/p transfusion x 2 - Strict I/Os, avoid nephrotoxic agents, continue to monitor renal function Acute blood loss on chronic normocytic anemia - Suspect degree of anemia in setting of CKD with acute blood loss anemia - Hgb 10.6 09/03, trended down to 7.0 POD 1 s/p 1 unit PRBCs with unclear volume administered, additional 1 unit administered 09/20 for Hgb of 7.0 - Hgb now stable at 7.8, no evidence of active bleeding from surgical site - Continue to trend, recommend transfusing for Hgb < 7 Essential HTN - Hold irbesartan for CHANA and normotension DM type 2, controlled - A1c 6.3% 06/2023, holding home metformin - Continue FSBG AC/HS and lispro SSI - CC2 diet GERD - Continue PPI Left hip osteoarthritis with postoperative reduced mobility - s/p left KUSH 09/18 - PT/OT recommend subacute rehab with referrals placed - Analgesia, bowel regimen, and DVT ppx per primary Thank you for allowing us to participate in this patient's care, we will continue to follow. Pleasecall with questions or concerns. [facility] Division of Hospital Medicine Secure chat preferred * Progress Notes - Marisol Woods - 09/22/2023 2:21 PM EDT Physical Therapy Treatment Patient Name: Tasneem Perales Today's Date: 09/22/2023 PT Discharge Recommendations: Subacute rehab Equipment Recommended: Patient owns appropriate equipment Subjective Pt. agreeable to therapy session. Participants in Care Family/Caregiver Present: No Family/Caregiver: Adult Daughter Presentation Oxygen Therapy: None (Room air) Lines and Tubes: Intravenous access Pre-Session: Sitting in chair Pre-Session Comments: RN consent to PT treatment . Post-Session: Call light in reach, SCDs applied, Chair alarm, Sitting in chair Post-Session Comments: all needs met. chair alarm connected to call reyes system Orthoses: (hip abd pillow) Precautions Left Lower Extremity Weight Bearing Status: Weight Bearing as Tolerated Right Lower Extremity Weight Bearing Status: Full Weight Bearing Left Upper Extremity Weight Bearing Status : Full weight bearing Right Upper Extremity Weight Bearing Status : Full weight bearing ROM Precautions: PHP Medical Precautions: Hip, Fall precautions, Post-Surgical precautions Hip Precautions: Posterior hip precautions Post-Surgical Precautions: PHP Objective Pain No complaints of pain Delirium Screening [place] Agitation Sedation Scale (RASS): Alert and calm Confusion Assessment Method-ICU (CAM-ICU/PCAM-ICU) Feature 3: Altered Level of Consciousness: Negative Therapeutic Activity ( Minutes) Rolling / Turning Assist level: Cues: Scooting/Bridging Assist level: Cues: Supine to Sit Assist level: Cues: Sit to Supine Assist level: Cues: Transfers Pt. performed sit to stand transfers with the below assist and cues to promote: WB through B LE's for improved balance, B LE strengthening, and core strength. To facilitate increased independence, decreased caregiver assist, pre-gait activities, for improved functional mobility. Sit to Stand Assist level:SBA, Set up, and Supervision Device:RW Cues:verbal and tactile Stand to Sit Assist level:SBA, Set up, and Supervision Device:RW Cues:verbal and tactile Bed < - > Assist level: Device: Cues: Type of transfer: Gait Training ( 9 Minutes ) 65ft Pt. Presented with an Step thru gait pattern , with RW. Requiring verbal and tactile cues for gait deviations including decreased step length, decreased stride length, and flexed posture. Pt. Was able to complete gait training with no LOB noted, patient required no rest breaks required. . Pt. Still requiring skilled gait training to addresses the above gait deviations as well as to decrease risk of falls, improved independence and decreased caregiver assistance. Assessment Pt. Increased gait speed and distance this session requiring only minor cues for proper posture. Pt. has the following impairments : decreased strength, muscle tone , and flexed posture . Pt. activity tolerance/endurance is limited to less than 10 min's with rest breaks Pt. treatment session: Pt. had no adverse reaction to treatment . Pt. still requiring skilled services for functional mobility. Plan Continue PT to progress towards established goals. PT Recommendations Discharge Destination: Subacute rehab Discharge Equipment: Patient owns appropriate equipment PT Goals PT GOAL DETAILS Goal Established Date Time Frame Goal Status PT Goal 1: Pt will demonstrate ability to ambulate 150 feet with FWW: Mod I, in prep for daily homelife. 09/19/23 2 weeks PT Goal 2: Pt will demonstrate ability to perform all functional transfers: Mod I, in prep for dilyhome life. 09/19/23 2 weeks PT Goal 3: Pt will demonstrate ability to negotiate 14 stairs with Right railing: Mod I, in prep for daily home life. 09/19/23 2 weeks PT Goal 4: Pt will recit all 3 PHP: Ind, for safe mobility and discharge. 09/19/23 2 weeks Written by Marisol Woods on 09/22/23 at 3:02 PM. * Progress Notes - Iza Ellsworth MD - 09/22/2023 12:35 PM EDT Orthopaedic Surgery Progress Note 09/22/23 Subjective: Doing well this AM. Sitting up in chair eating lunch. Possible rehab placement today vs Sunday she was told. Patient and family concerned about her sodium being low. Objective: Vitals: 09/22/23 1136 BP: (!) 103/41 Pulse: 73 Resp: Temp: 36.5 ??C (97.7 ??F) SpO2: 97% Physical Examination: No acute distress Non labored breathing Peripheral perfusion intact Focused Musculoskeletal Examination: LLE Aquacel cdi HAP and KI in place. Intact ehl fhl ta gsc. Sensation intact distally. 2+ pulses. Data: Labs in last 18 hours: CBC WBC 6.77 Hb 7.8 (L) Plt 240 Hct 23.1 (L) INR ??, PTT ??, Anti-Xa ?? BMP Na 126 (L) Cl 95 (L) BUN 32 (H) Glu 146 (H) K 4.8 Co2 23 Cr 0.93 Lactate ?? Assessment & Plan: Tasneem Perales is a 88 y.o. female patient with the following orthopedic injuries: L KUSH (09/18) Edited by: Dwayne Mejia MD at 09/19/2023 1807 Tmax 99.0, HR 74-89, BP 101/56-129/62, RR 14-16, SpO2 92-98, UOP 4 unmeasured (09/21), H/H 7.8/23.1 s/p 1 unit pRBC on 09/20, BMP Na 126 (09/21) Will defer sodium discussion/management to medicine, will touch base with them today Dressings: Aquacel Precautions: PHP DVT: ASA PT: Acute rehab Plan: Pending rehab placement Mobility Orders Mobility Protocol: General - Mobility Guidelines Extremity Precautions: No Extremity Precautions Other mobility precautions: Posterior hip precautions Other mobility precautions: Other precautions Iza Whiting??MD Orthopedic Surgery PGY-2 [facility] Personal Pager: [phone] Orthopaedic Trauma Service Pager: [phone] Orthopaedic Recon/Spine/Foot and Ankle Service Pager: [phone] Cosigned by Griffin Santiago MD at 10/02/2023 8:28 AM EDT Associated attestation - Griffin Santiago MD - 10/02/2023 8:28 AM EDT Signature Only * Care Plan - Inna Morris RN - 09/22/2023 10:18 AM EDT Problem: Adult Inpatient Plan of Care Goal: Plan of Care Review Outcome: Ongoing, Progressing Flowsheets (Taken 09/21/2023 1320 by Ayah Schmid RN) Progress: improving Plan of Care Reviewed With: patient Goal: Patient-Specific Goal (Individualized) Outcome: Ongoing, Progressing Flowsheets (Taken 09/22/2023 0800) Patient/Family-Specific Goals (Include Timeframe): Patient will remain free from harm this shift. Patient's pain level will be adequately controlled this shift. Individualized Care Needs: Safe environment pain control Anxieties, Fears or Concerns: safety & pain Goal: Absence of Hospital-Acquired Illness or Injury Outcome: Ongoing, Progressing Goal: Optimal Comfort and Wellbeing Outcome: Ongoing, Progressing Goal: Readiness for Transition of Care Outcome: Ongoing, Progressing Problem: Fall Injury Risk Goal: Absence of Fall and Fall-Related Injury Outcome: Ongoing, Progressing Problem: Surgery Nonspecified Goal: Absence of Bleeding Outcome: Ongoing, Progressing Goal: Effective Bowel Elimination Outcome: Ongoing, Progressing Goal: Fluid and Electrolyte Balance Outcome: Ongoing, Progressing Goal: Blood Glucose Level Within Targeted Range Outcome: Ongoing, Progressing Goal: Absence of Infection Signs and Symptoms Outcome: Ongoing, Progressing Goal: Anesthesia/Sedation Recovery Outcome: Ongoing, Progressing Goal: Optimal Pain Control and Function Outcome: Ongoing, Progressing Goal: Nausea and Vomiting Relief Outcome: Ongoing, Progressing Goal: Effective Urinary Elimination Outcome: Ongoing, Progressing Goal: Effective Oxygenation and Ventilation Outcome: Ongoing, Progressing * Progress Notes - Marisol Woods - 09/22/2023 9:49 AM EDT Physical Therapy Treatment Patient Name: Tasneem Perales Today's Date: 09/22/2023 PT Discharge Recommendations: Subacute rehab Equipment Recommended: Patient owns appropriate equipment Subjective Pt. agreeable to therapy session. Participants in Care Family/Caregiver Present: Yes Family/Caregiver: Adult Daughter Presentation Oxygen Therapy: None (Room air) Lines and Tubes: Intravenous access Pre-Session: Supine, Head of bed elevated Pre-Session Comments: RN consent to PT treatment . Post-Session: Call light in reach, SCDs applied, Chair alarm, Sitting in chair Post-Session Comments: all needs met Orthoses: (hip abd pillow) Precautions Left Lower Extremity Weight Bearing Status: Weight Bearing as Tolerated Right Lower Extremity Weight Bearing Status: Full Weight Bearing Left Upper Extremity Weight Bearing Status : Full weight bearing Right Upper Extremity Weight Bearing Status : Full weight bearing ROM Precautions: PHP Medical Precautions: Hip, Fall precautions, Post-Surgical precautions Hip Precautions: Posterior hip precautions Post-Surgical Precautions: PHP Objective Pain Complained of muscle soreness. Delirium Screening Cunningham Agitation Sedation Scale (RASS): Alert and calm Confusion Assessment Method-ICU (CAM-ICU/PCAM-ICU) Feature 3: Altered Level of Consciousness: Negative Therapeutic Activity ( 8 Minutes) Pt. Required verbal, tactile and visual cues for above transfers for safe handling, functional mobility and to promote self assist strategies for independence. Pt. Engaged in the above transfers to improve core strength , balance , B LE's strength and overall functional mobility. Rolling / Turning Assist level: Cues: Scooting/Bridging Assist level:SBA, Set up, and Supervision Cues:verbal and tactile Supine to Sit Assist level:SBA, Set up, and Supervision Cues:verbal and tactile Sit to Supine Assist level: Cues: Transfers Pt. performed sit to stand transfers with the below assist and cues to promote: WB through B LE's for improved balance, B LE strengthening, and core strength. To facilitate increased independence, decreased caregiver assist, pre-gait activities, for improved functional mobility. Sit to Stand Assist level:SBA, Set up, and Supervision Device:RW Cues:verbal and tactile Stand to Sit Assist level:SBA, Set up, and Supervision Device:RW Cues:verbal and tactile Bed < - > Assist level: Device: Cues: Type of transfer: Gait Training ( 15 Minutes ) 75ft Pt. Presented with an Step thru gait pattern , with RW. Requiring verbal and tactile cues for gait deviations including decreased step length, decreased stride length, Increased LAUREN, flexed posture, forward gaze , and decreased hip flexion. Pt. Was able to complete gait training with no LOB noted, patient required no rest breaks required. . Pt. Still requiring skilled gait training to addresses the above gait deviations as well as to decrease risk of falls, improved independence and decreased caregiver assistance. Assessment Increased gait distance this session. Pt. Was able to complete task overall with less assistance than yesterday. Pt. has the following impairments : decreased strength, decreased endurance, decreased core strength , decreased rom , muscle tone , and flexed posture . Pt. activity tolerance/endurance is limited to 20-30 min's with rest breaks Pt. treatment session: Pt. had no adverse reaction to treatment . Pt. still requiring skilled services for functional mobility. Plan Continue PT to progress towards established goals. PT Recommendations Discharge Destination: Subacute rehab Discharge Equipment: Patient owns appropriate equipment PT Goals PT GOAL DETAILS Goal Established Date Time Frame Goal Status PT Goal 1: Pt will demonstrate ability to ambulate 150 feet with FWW: Mod I, in prep for daily homelife. 09/19/23 2 weeks PT Goal 2: Pt will demonstrate ability to perform all functional transfers: Mod I, in prep for dilyhome life. 09/19/23 2 weeks PT Goal 3: Pt will demonstrate ability to negotiate 14 stairs with Right railing: Mod I, in prep for daily home life. 09/19/23 2 weeks PT Goal 4: Pt will recit all 3 PHP: Ind, for safe mobility and discharge. 09/19/23 2 weeks Written by Marisol Woods on 09/22/23 at 12:04 PM. * Progress Notes - Peace Martin - 09/21/2023 4:35 PM EDT Per Susan with [facility], patient is potential admit for tomorrow (Thursday 09/21) if she is medically cleared for discharge. Peace [facility] * Progress Notes - Lisa Fontana RN - 09/21/2023 2:56 PM EDT Case Management Adult Progress Note Tasneem Perales 88 y.o. female CSN: [id number] Admission: 09/19/2023 8:02 AM Primary Problem: Hip pain, left POC reviewed, pt nearing dc readiness. Blood transfusion today, team will re-ck H&H. PT/OT recs indicate [facility] following. [facility] has no bed available. - UR was able to change coding to Inpt status vs Extended Recovery today. Medicare will require that pt stays here for 3 midnights, then eligible for subacute rehab. [facility] will re-eval on Sunday. CM will follow....... Lisa Fontana RN * Progress Notes - Laney Tidwell - 09/21/2023 2:30 PM EDT Occupational Therapy Treatment Patient Name: Tasneem Perales Today's Date: 09/21/2023 OT Discharge Recommendations: Subacute rehab Equipment Recommended: Defer to facility Subjective Pt agreeable to assessment. Participants in Care Family/Caregiver Present: Yes Family/Caregiver: Adult Daughter Toll Settlement Clerk: Not Applicable Presentation Oxygen Therapy: None (Room air) Lines and Tubes: Intravenous access Pre-Session: Supine, Head of bed elevated Pre-Session Comments: RN consent to OT treatment . Post-Session: RN notified, Call light in reach, SCDs applied, Head of bed elevated, Supine Post-Session Comments: all needs met Orthoses: Knee immobilizer - Left Precautions Left Lower Extremity Weight Bearing Status: Weight Bearing as Tolerated Right Lower Extremity Weight Bearing Status: Full Weight Bearing Left Upper Extremity Weight Bearing Status : Full weight bearing Right Upper Extremity Weight Bearing Status : Full weight bearing ROM Precautions: PHP Medical Precautions: Hip, Fall precautions, Post-Surgical precautions Hip Precautions: Posterior hip precautions Post-Surgical Precautions: PHP Objective Pain 4/10 pain in LLE Delirium Screening Cunningham Agitation Sedation Scale (RASS): Alert and calm Confusion Assessment Method-ICU (CAM-ICU/PCAM-ICU) Feature 3: Altered Level of Consciousness: Negative Cognition Cognition Overall Cognitive Status: Within Functional Limits Arousal/Alertness: Appropriate responses to stimuli Mood/Behavior: Alert Single Step Commands: With increased time Multi-Step Commands: With increased time Method of Communication: Verbal Bed Mobility Bed Mobility Exam: Supine to Sit Level of [place]: Minimum assist (75% patient's effort) Physical/Nonphysical Assist: Supervision, Verbal Cues, Nonverbal cues (demo/gestures), Minimal cues Bed Mobility Exam: Sit to Supine Level of [place]: Minimum assist (75% patient's effort) Physical/Nonphysical Assist: Supervision, Verbal Cues, Nonverbal cues (demo/gestures), Minimal cues Transfers Transfer Exam: Sit to stand Level of [place]: Contact guard Physical/Nonphysical Assist: Verbal Cues, Supervision, Minimal cues Assistive Device: Walker, rolling Transfer Exam: Stand to Sit Level of [place]: Contact guard Physical/Nonphysical Assist: Verbal Cues, Supervision, Minimal cues Assistive Device: Walker, rolling Transfer Exam: Bed to Chair/Chair to Bed Level of [place]: Minimum assist (75% patient's effort) Physical/Nonphysical Assist: Additional assist utilized for safety, 1 person + 1 person to manage equipment, Verbal Cues, Supervision, Moderate cues Assistive Device: Walker, rolling Toilet Transfer Level of [place]: Minimum assist (75% patient's effort) Physical/Nonphysical Assist: Additional assist utilized for safety, Minimal cues, Supervision, Verbal Cues, 1 person + 1 person to manage equipment Type of Transfer: Stand-pivot Functional Mobility Assistance: Contact guard assist Ambulation Comments: Patient completed functional mobility of household chore with CGA and min cuesfor safety. Balance Static Sitting Balance Static Sitting-Balance Support: Feet supported Static Sitting-Level of Assistance: Contact guard Dynamic Sitting Balance Dynamic Sitting-Balance Support: Feet supported Dynamic Sitting-Balance: Lateral weight shifts Level of Assistance: Contact guard Static Standing Balance Static Standing-Balance Support: Right upper extremity support, Left upper extremity support Static Standing-Level of Assistance: Minimum assistance Therapeutic Activity (17 minutes) See bed mobility, transfers, balance, and functional mobility section for further treatment information. Patient required extended time due to decreased activity tolerance. Self-Care Interventions Self Care/Home Management (ADLs) Time Entry: 23 Lower Extremity Dressing LE Dressing Adaptive Equipment: Tech Writer, Sock aide Pants Level of Assistance: Minimum assistance Sock Level of Assistance: Minimum assistance LE Dressing Where Assessed: Edge of bed LE Dressing Interventions: Pt completed LBD task with min A and min cues for sequencing. Pt demo'd good recall for use of sock aid. Pt engaged in ADL training including LE Dressing. OT gave Min A cues for Safety and Sequencing of Tasks. OT Facilitated Safety Awareness. Pt responded good to cues with good follow through. Assessment Patient continues to present with need for assist with ADL tasks, decreased endurance and activity tolerance, and extended time to complete tasks. However, patient is continuing to show improvement as evidenced by increasing distance of functional mobility and balance. Therapist spoke in length with family about having someone home with patient 24 hours for safety due to above deficits, or going to subacute rehab. The patient is agreeable to subacute rehab, but the family is also looking for 24hour care for the patient. Patient would continue to benefit from skilled OT services. OT Recommendations Discharge Destination: Subacute rehab Discharge Equipment: Defer to facility Plan Continue plan of care. Goals OT GOAL DETAILS Goal Established Date Time Frame Goal Status OT Goal 1: Patient will complete toileting tasks with CGA. 09/20/23 2 weeks OT Goal 2: Patient will complete LBD tasks with appropriate AE as needed CGA. 09/20/23 2 weeks OT Goal 3: Patient will complete all functional transfers with CGA. 09/20/23 2 weeks Written by Laney Tidwell on 09/21/23 at 3:21 PM. * Progress Notes - Marisol Woods - 09/21/2023 2:29 PM EDT Physical Therapy Treatment Patient Name: Tasneem Perales Today's Date: 09/21/2023 PT Discharge Recommendations: Subacute rehab Equipment Recommended: Patient owns appropriate equipment Subjective Pt. agreeable to therapy session. Participants in Care Family/Caregiver Present: Yes Family/Caregiver: Adult Daughter Presentation Oxygen Therapy: None (Room air) Lines and Tubes: Intravenous access Pre-Session: Supine, Head of bed elevated Pre-Session Comments: RN consent to PT treatment . Post-Session: RN notified, Call light in reach, SCDs applied, Head of bed elevated, Supine Post-Session Comments: all needs met Orthoses: (hip abd pillow) Precautions Left Lower Extremity Weight Bearing Status: Weight Bearing as Tolerated Right Lower Extremity Weight Bearing Status: Full Weight Bearing Left Upper Extremity Weight Bearing Status : Full weight bearing Right Upper Extremity Weight Bearing Status : Full weight bearing ROM Precautions: PHP Medical Precautions: Hip, Fall precautions, Post-Surgical precautions Hip Precautions: Posterior hip precautions Post-Surgical Precautions: PHP Objective Pain No complaints of pain Delirium Screening Cunningham Agitation Sedation Scale (RASS): Alert and calm Confusion Assessment Method-ICU (CAM-ICU/PCAM-ICU) Feature 3: Altered Level of Consciousness: Negative Therapeutic Activity ( 23 Minutes) Pt. Required verbal, tactile and visual cues for above transfers for safe handling, functional mobility and to promote self assist strategies for independence. Pt. Engaged in the above transfers to improve core strength , balance , B LE's strength and overall functional mobility. Rolling / Turning Assist level: Cues: Scooting to HOB Assist level:Dependent and Additional assist for safety Cues:verbal and tactile Supine to Sit Assist level:CGA, MIN, Set up, and Supervision Cues:verbal and tactile Sit to Supine Assist level:CGA, MIN, Set up, and Supervision Cues:verbal and tactile Transfers Pt. performed sit to stand transfers with the below assist and cues to promote: WB through B LE's for improved balance, B LE strengthening, and core strength. To facilitate increased independence, decreased caregiver assist, pre-gait activities, for improved functional mobility. Sit to Stand Assist level:CGA, Set up, and Supervision Device:RW Cues:verbal and tactile Stand to Sit Assist level:CGA, Set up, and Supervision Device:RW Cues:verbal and tactile Bed < - > Assist level: Device: Cues: Type of transfer: In depth discussion with patient and daughter that patient may not qualify for rehab stay and that family and patient need to prepare for discharge home. Pt. And daughter stated that family lived close by and also patient grand daughter's boyfriend should be able to assist . Pt. Has all necessary equipment at home. Gait Training ( 15 Minutes ) 60ft Pt. Presented with an Step thru gait pattern , with RW. Requiring verbal and tactile cues for gait deviations including decreased step length, decreased stride length, flexed posture, and decreased hip flexion. Pt. Was able to complete gait training with no LOB noted, patient required no rest breaks required. . Pt. Still requiring skilled gait training to addresses the above gait deviations as well as to decrease risk of falls, improved independence and decreased caregiver assistance. Assessment Pt. has the following impairments : decreased strength, decreased endurance, muscle tone , and flexed posture . Pt. activity tolerance/endurance is limited to 30+ min's with rest breaks Pt. treatment session: was limited by : fatigue . Pt. still requiring skilled services for functional mobility. Plan Continue PT to progress towards established goals. PT Recommendations Discharge Destination: Subacute rehab Discharge Equipment: Patient owns appropriate equipment PT Goals PT GOAL DETAILS Goal Established Date Time Frame Goal Status PT Goal 1: Pt will demonstrate ability to ambulate 150 feet with FWW: Mod I, in prep for daily homelife. 09/19/23 2 weeks PT Goal 2: Pt will demonstrate ability to perform all functional transfers: Mod I, in prep for dilyhome life. 09/19/23 2 weeks PT Goal 3: Pt will demonstrate ability to negotiate 14 stairs with Right railing: Mod I, in prep for daily home life. 09/19/23 2 weeks PT Goal 4: Pt will recit all 3 PHP: Ind, for safe mobility and discharge. 09/19/23 2 weeks Written by Marisol Woods on 09/21/23 at 4:33 PM. * Progress Notes - iCtlalli Mcmahon PA - 09/21/2023 12:52 PM EDT Hospital Medicine Progress Note Subjective: Mobilizing with PT on initial assessment this am with daughter and primary team at bedside. Primaryteam removed surgical dressing to reveal left hip incision without noted active drainage. Altagracia remain in place with edges well- approximated. Hgb remains 7.0 this am, patient notes she did not receive the full unit of blood yesterday due to sluggish PIV, received 1 unit this am after new PIV obtained without noted issue. Denies lightheadedness, dizziness, dyspnea, palpitations, chest discomfort, or nausea. 600mL po fluid intake documented last 24h, states she has been somewhat self-restricting her po intake as she does not like using BSC for modesty reasons, but has difficulty ambulating torestroom. Discussed importance of adequate hydration, especially with noted electrolyte disturbances, and she is agreeable to drinking more po fluids. Review of Systems Constitutional: Positive for activity change. Negative for chills and fever. Respiratory: Negative for cough and shortness of breath. Cardiovascular: Negative for chest pain and palpitations. Gastrointestinal: Negative for abdominal pain, constipation, diarrhea and nausea. Genitourinary: Negative for difficulty urinating and dysuria. Musculoskeletal: Positive for arthralgias. Negative for myalgias. Neurological: Positive for weakness. Negative for dizziness and light-headedness. Psychiatric/Behavioral: Negative. Objective Physical Exam Constitutional: General: She is awake. She is not in acute distress. HENT: Head: Normocephalic and atraumatic. Mouth/Throat: Mouth: Mucous membranes are moist. Cardiovascular: Rate and Rhythm: Normal rate and regular rhythm. Heart sounds: No murmur heard. Pulmonary: Effort: Pulmonary effort is normal. No respiratory distress. Breath sounds: No wheezing. Abdominal: General: Bowel sounds are normal. There is no distension. Palpations: Abdomen is soft. Tenderness: There is no abdominal tenderness. Musculoskeletal: Right lower leg: Edema (trace) present. Left lower leg: Edema (generalized) present. Comments: Left hip incision visible during dressing change with altagracia in place, mild surrounding bruising and swelling; no observed active drainage Skin: General: Skin is warm and dry. Capillary Refill: Capillary refill takes less than 2 seconds. Findings: Bruising present. Neurological: General: No focal deficit present. Mental Status: She is alert and oriented to person, place, and time. Psychiatric: Mood and Affect: Mood normal. Behavior: Behavior normal. Temp: [36.3 ??C (97.4 ??F)-37.2 ??C (98.9 ??F)] 36.4 ??C (97.6 ??F) Heart Rate: [73-84] 79 Resp: [16] 16 BP: (101-129)/(44-62) 103/55 Recent labs: Recent labs and imaging personally reviewed and noted below: CBC: Lab Results Component Value Date WBC 7.20 09/21/2023 RBC 2.63 (L) 09/21/2023 HGB 7.0 (L) 09/21/2023 HCT 21.5 (L) 09/21/2023 PLT 262 09/21/2023 MCV 82 09/21/2023 MCH 26.6 09/21/2023 MCHC 32.6 09/21/2023 RDW 16.0 (H) 09/21/2023 NRBC 0.0 09/21/2023 Differential: Lab Results Component Value Date WBC 7.20 09/21/2023 Coagulation: No results found for: INR , PT , PTT , CLFGN Renal: Lab Results Component Value Date NA 125 (L) 09/21/2023 K 5.2 (H) 09/21/2023 CL 93 (L) 09/21/2023 CO2 23 09/21/2023 BUN 31 (H) 09/21/2023 CREATININE 1.23 (H) 09/21/2023 GLUCOSE 121 (H) 09/21/2023 CALCIUM 8.6 (L) 09/21/2023 MG 1.9 09/21/2023 Liver: No results found for: AST , ALT , ALPHO , BILITOT , BILIDIR Glucose: Lab Results Component Value Date PGLU 131 (H) 09/21/2023 PGLU 137 (H) 09/21/2023 PGLU 214 (H) 09/20/2023 PGLU 137 (H) 09/20/2023 Lab Results Component Value Date HGBA1C 6.0 (H) 09/04/2023 Medications: Scheduled: acetaminophen, 500 mg, Oral, q6h SREEDHAR aspirin, 81 mg, Oral, BID calcium-vitamin D, 1 tablet, Oral, BID with meals insulin lispro, 0-5 Units, Subcutaneous, TID with meals insulin lispro, 0-3 Units, Subcutaneous, Twice at night pantoprazole, 40 mg, Oral, Daily before breakfast polyethylene glycol, 17 g, Oral, Daily with breakfast senna-docusate, 2 tablet, Oral, Nightly Continuous: As needed: bethanechol, 20 mg, Once PRN bisacodyl, 10 mg, BID PRN glucose, 15 grams of glucose, q15 min PRN Or dextrose 10 %, 12.5 g, q15 min PRN glucose, 15 grams of glucose, q15 min PRN Or dextrose 10 %, 12.5 g, q15 min PRN dextrose 10 %, 25 g, q15 min PRN Or glucose, 30 grams of glucose, q15 min PRN diphenhydrAMINE, 12.5 mg, q4h PRN glucagon (human recombinant), 1 mg, q15 min PRN HYDROcodone-acetaminophen, 5 mg of hydrocodone, q6h PRN magnesium hydroxide, 10 mL, BID PRN ondansetron, 4 mg, q6h PRN Assessment/Plan Principal Problem: Hip pain, left Assessment and Plan: Tasneem Perales is a 88 y.o. female with history of HTN, DM type 2, chronic hyponatremia, GERD, HLD, thrombocytosis, CKD, and OA admitted for elective left total hip arthroplasty. Medicine is consulted for medical co-management. Acute on chronic hyponatremia - Per PCP note (Dr. Shelley) 06/28/23, patient was admitted to [facility] 06/16-06/17 for hyponatremia and hyperkalemia (Na 123, K 5.8), with hyponatremia thought to be due to dehydration with improvement to 133 06/28 consistent with labs pre-op labs 09/03 - Na downtrend to 125 this am, potential hypovolemic component given self- limiting of po fluids andacute anemia, unclear if patient received full PRBC unit 09/19, additional 1 unit ordered today and patient encouraged to increase po fluid intake to limit of 1.5L daily - Serum Osm 274, urine Na 31, urine Osm pending - Continue to trend with BMP at 1400 and in am Acute kidney injury on chronic kidney disease Hyperkalemia, POA - Cr ~ 0.8 per most recent labs, increased to 1.29 POD 1, stable at 1.23 today - Potassium 5.6 09/03, stable at 5.2 this am - FENa suggestive of prerenal etiology, s/p transfusion this am - Strict I/Os, avoid nephrotoxic agents, continue to monitor renal function Acute blood loss on chronic normocytic anemia - Suspect degree of anemia in setting of CKD with acute blood loss anemia - Hgb 10.6 09/03, trended down to 7.0 POD 1 s/p 1 unit PRBCs with unclear volume administered, additional 1 unit administered this am for Hgb of 7.0 - Trend with CBC in am Essential HTN - Hold irbesartan for CHANA with hyperkalemia and normotension DM type 2, controlled - A1c 6.3% 06/2023, holding home metformin - Continue FSBG AC/HS and lispro SSI - CC2 diet GERD - Continue PPI Left hip osteoarthritis with postoperative reduced mobility - s/p left KUSH 09/18 - PT/OT recommend subacute rehab with referrals placed - Analgesia, bowel regimen, and DVT ppx per primary Thank you for allowing us to participate in this patient's care, we will continue to follow. Pleasecall with questions or concerns. Citlalli Mcmahon PA-C Division of Hospital Medicine Secure chat preferred * Progress Notes - Marisol Woods - 09/21/2023 10:10 AM EDT Physical Therapy Treatment Patient Name: Tasneem Perales Today's Date: 09/21/2023 PT Discharge Recommendations: Subacute rehab Equipment Recommended: Patient owns appropriate equipment Subjective Pt. agreeable to therapy session. Participants in Care Family/Caregiver Present: Yes Family/Caregiver: Adult Daughter Presentation Oxygen Therapy: None (Room air) Lines and Tubes: Intravenous access Pre-Session: Supine, Head of bed elevated Pre-Session Comments: RN consent to PT treatment . Post-Session: Chair alarm, Lines intact, RN notified, Call light in reach, Sitting in chair, SCDs applied Post-Session Comments: all needs met Precautions Left Lower Extremity Weight Bearing Status: Weight Bearing as Tolerated Right Lower Extremity Weight Bearing Status: Full Weight Bearing Left Upper Extremity Weight Bearing Status : Full weight bearing Right Upper Extremity Weight Bearing Status : Full weight bearing ROM Precautions: PHP Medical Precautions: Hip, Fall precautions, Post-Surgical precautions Hip Precautions: Posterior hip precautions Post-Surgical Precautions: PHP Objective Pain No complaints of pain Delirium Screening [place] Agitation Sedation Scale (RASS): Alert and calm Confusion Assessment Method-ICU (CAM-ICU/PCAM-ICU) Feature 3: Altered Level of Consciousness: Negative Therapeutic Activity ( 23 Minutes) Pt. Required verbal, tactile and visual cues for above transfers for safe handling, functional mobility and to promote self assist strategies for independence. Pt. Engaged in the above transfers to improve core strength , balance , B LE's strength and overall functional mobility. Rolling / Turning Assist level: Cues: Scooting/Bridging Assist level:CGA, Set up, and Supervision Cues:verbal and tactile Supine to Sit Assist level:MIN, Set up, and Supervision Cues:verbal and tactile Sit to Supine Assist level: Cues: Transfers Pt. performed sit to stand transfers with the below assist and cues to promote: WB through B LE's for improved balance, B LE strengthening, and core strength. To facilitate increased independence, decreased caregiver assist, pre-gait activities, for improved functional mobility. Sit to Stand Assist level:SBA, CGA, Set up, and Supervision Device:RW Cues:verbal and tactile Stand to Sit Assist level:CGA, Set up, and Supervision Device:RW Cues:verbal and tactile Bed < - > Assist level: Device: Cues: Type of transfer: Spoke with Lisa Surgery Teacher and Karime BILL about insurance not paying for subacute rehab as patient is in extended stay. Pt. Was much improved this AM session and maybe able to go home with 24hr assist , at home . Depending on her mobility over the next couple days. (10 mins ) Static Pt. engaged in static standing with RW and SBA for approx. 7 mins with patient requiring SBA and verbal and tactile for proper posture , forward head , B LE Weight bearing , and improved balance to promote independence, decreased caregiver assist, pre gait activities, to improve functional mobility. Gait Training ( 15 Minutes ) 35ft Pt. Presented with an Step thru gait pattern , with RW. Requiring verbal and tactile cues for gait deviations including decreased step length, decreased stride length, flexed posture, decreased hip flexion, and decreased knee flexion. Pt. Was able to complete gait training with no LOB noted, patient required no rest breaks required. . Pt. Still requiring skilled gait training to addresses the above gait deviations as well as to decrease risk of falls, improved independence and decreased caregiver assistance. Assessment Pt. Much improved this session. Pt. Was able to static stand for approx 7 mins and increase gait distance . Pt. has the following impairments : decreased strength, decreased endurance, decreased core strength , decreased coordination , muscle tone , and flexed posture . Pt. activity tolerance/endurance is limited to 30+ min's with rest breaks Pt. treatment session: was limited by : fatigue . Pt. still requiring skilled services for functional mobility. Plan Continue PT to progress towards established goals. PT Recommendations Discharge Destination: Subacute rehab Discharge Equipment: Patient owns appropriate equipment PT Goals PT GOAL DETAILS Goal Established Date Time Frame Goal Status PT Goal 1: Pt will demonstrate ability to ambulate 150 feet with FWW: Mod I, in prep for daily homelife. 09/19/23 2 weeks PT Goal 2: Pt will demonstrate ability to perform all functional transfers: Mod I, in prep for dilyhome life. 09/19/23 2 weeks PT Goal 3: Pt will demonstrate ability to negotiate 14 stairs with Right railing: Mod I, in prep for daily home life. 09/19/23 2 weeks PT Goal 4: Pt will recit all 3 PHP: Ind, for safe mobility and discharge. 09/19/23 2 weeks Written by Marisol Woods on 09/21/23 at 1:15 PM. * Progress Notes - Iza Ellsworth MD - 09/21/2023 6:20 AM EDT Orthopaedic Surgery Progress Note 09/21/23 Subjective: Got 1u pRBC yesterday, however patient says that barely any of it infused because they were unable to get IV access with a large enough needle. Hemoglobin this morning still 7.0. Pain controlled and tolerating diet, otherwise doing well. Objective: Vitals: 09/21/23 0215 BP: 120/51 Pulse: 82 Resp: Temp: 36.4 ??C (97.5 ??F) SpO2: 92% Physical Examination: No acute distress Non labored breathing Peripheral perfusion intact Focused Musculoskeletal Examination: LLE Aquacel saturated with dark red blood HAP and KI in place. Intact ehl fhl ta gsc. Sensation intact distally. 2+ pulses. Data: Labs in last 18 hours: CBC WBC 7.20 Hb 7.0 (L) Plt 262 Hct 21.5 (L) INR ??, PTT ??, Anti-Xa ?? BMP Na 125 (L) Cl 93 (L) BUN 31 (H) Glu 121 (H) K 5.2 (H) Co2 23 Cr 1.23 (H) Lactate ?? Assessment & Plan: Tasneem Perales is a 88 y.o. female patient with the following orthopedic injuries: L KUSH (09/18) Edited by: Dwayne Mejia MD at 09/19/2023 1807 Tmax 98.3, HR 79-84, BP 94/39-120/51, RR 16, SpO2 91-97, UOP 0.5 mL/kg/hr (09/20), H/H 7.0/21.5 s/p 1 unit pRBCS, BMP Cr 1.23, Na 125, K 5.2 (09/20) Dressings: Aquacel Precautions: PHP DVT: ASA PT: Acute rehab Plan: Need repeat transfusion this AM with larger bore access as patient says barely any blood got in yesterday due to small needle, and her hemoglobin remains 7. Will discuss change of surgical dressing with Dr. Santiago Pending rehab placement Mobility Orders Mobility Protocol: General - Mobility Guidelines Extremity Precautions: No Extremity Precautions Other mobility precautions: Posterior hip precautions Other mobility precautions: Other precautions Iza Whiting??, Orthopedic Surgery PGY-2 [facility] Personal Pager: [phone] Orthopaedic Trauma Service Pager: [phone] Orthopaedic Recon/Spine/Foot and Ankle Service Pager: [phone] Cosigned by Griffin Santiago MD at 10/02/2023 8:27 AM EDT Associated attestation - Griffin Santiago MD - 10/02/2023 8:27 AM EDT Signature Only * Clinician Note - Marisol Woods - 09/20/2023 3:04 PM EDT Physical Therapy Attempt Patient Name: Tasneem Perales Today's Date: 09/20/2023 Patient was attempted to be seen by physical therapy 09/20/2023 for PT Treatment however patient refused (pt. refused to get out of chair and into bed . Pt. educated that its not good for her to sleepin chair . Pt. also wanting to watch her tv show.). Physical therapy team will follow-up as schedule permits. Written by Marisol Woods on 09/20/23 at 4:15 PM. * Progress Notes - Lisa Fontana RN - 09/20/2023 1:54 PM EDT Case Management Adult Progress Note Tasneem Perales 88 y.o. female CSN: [id number] Admission: 09/19/2023 8:02 AM Primary Problem: Hip pain, left POC reviewed, pt is not ready for dc at this time. Blood transfusion this afternoon during CM visit with pt. PT/OT recs: [facility] (revised today from [place]). Pt requested referral to [facility] and [facility], which have been sent. No DME needed. Gloria with [facility] following. CM will remain available to assist with all dc planning..... Lisa Fontana RN * Progress Notes - Citlalli Mcmahon PA - 09/20/2023 12:23 PM EDT Hospital Medicine Progress Note Subjective: Evaluated with primary team this am, sitting in chair after ambulating with PT/OT. States left hip pain is currently controlled. Reviewed am labs with patient, including Hgb of 7.0 and electrolyte abnormalities. 1u PRBCs ordered empirically by primary team. Patient notes her sodium level has been low for ~ 1 year and required overnight admit to OSH earlier this year for management with etiology unclear. Attempting to drink post-op, though preferably eating ice rather than drinking large quantities of water. Denies lightheadedness, dizziness, dyspnea, or chest pain. Review of Systems Constitutional: Positive for activity change. Negative for chills and fever. Respiratory: Negative for cough and shortness of breath. Cardiovascular: Negative for chest pain and palpitations. Gastrointestinal: Negative for abdominal pain, constipation, diarrhea and nausea. Genitourinary: Negative for difficulty urinating and dysuria. Musculoskeletal: Positive for arthralgias. Negative for myalgias. Neurological: Positive for weakness. Negative for dizziness and light-headedness. Psychiatric/Behavioral: Negative. Objective Physical Exam Constitutional: General: She is awake. She is not in acute distress. HENT: Head: Normocephalic and atraumatic. Mouth/Throat: Mouth: Mucous membranes are moist. Cardiovascular: Rate and Rhythm: Normal rate and regular rhythm. Heart sounds: No murmur heard. Pulmonary: Effort: Pulmonary effort is normal. No respiratory distress. Breath sounds: No wheezing. Abdominal: General: Bowel sounds are normal. There is no distension. Palpations: Abdomen is soft. Tenderness: There is no abdominal tenderness. Musculoskeletal: Right lower leg: Edema (trace) present. Left lower leg: Edema (trace) present. Comments: Left hip Aquacel clean and dry Skin: General: Skin is warm and dry. Capillary Refill: Capillary refill takes less than 2 seconds. Neurological: General: No focal deficit present. Mental Status: She is alert and oriented to person, place, and time. Psychiatric: Mood and Affect: Mood normal. Behavior: Behavior normal. Temp: [36.3 ??C (97.3 ??F)-37.7 ??C (99.8 ??F)] 36.3 ??C (97.4 ??F) Heart Rate: [63-85] 85 Resp: [15-25] 15 BP: (88-175)/(40-83) 88/40 Recent labs: Recent labs and imaging personally reviewed and noted below: CBC: Lab Results Component Value Date WBC 8.06 09/20/2023 RBC 2.57 (L) 09/20/2023 HGB 7.0 (L) 09/20/2023 HCT 20.9 (L) 09/20/2023 PLT 323 09/20/2023 MCV 81 09/20/2023 MCH 27.2 09/20/2023 MCHC 33.5 09/20/2023 RDW 16.5 (H) 09/20/2023 NRBC 0.0 09/20/2023 Differential: Lab Results Component Value Date WBC 8.06 09/20/2023 Coagulation: No results found for: INR , PT , PTT , CLFGN Renal: Lab Results Component Value Date NA 126 (L) 09/20/2023 K 5.2 (H) 09/20/2023 CL 94 (L) 09/20/2023 CO2 23 09/20/2023 BUN 26 (H) 09/20/2023 CREATININE 1.27 (H) 09/20/2023 GLUCOSE 135 (H) 09/20/2023 CALCIUM 8.9 09/20/2023 Liver: No results found for: AST , ALT , ALPHO , BILITOT , BILIDIR Glucose: Lab Results Component Value Date PGLU 164 (H) 09/20/2023 PGLU 133 (H) 09/20/2023 PGLU 159 (H) 09/20/2023 PGLU 312 (H) 09/19/2023 PGLU 277 (H) 09/19/2023 PGLU 172 (H) 09/19/2023 Lab Results Component Value Date HGBA1C 6.0 (H) 09/04/2023 Medications: Scheduled: acetaminophen, 500 mg, Oral, q6h SREEDHAR aspirin, 81 mg, Oral, BID calcium-vitamin D, 1 tablet, Oral, BID with meals insulin lispro, 0-5 Units, Subcutaneous, TID with meals insulin lispro, 0-3 Units, Subcutaneous, Twice at night pantoprazole, 40 mg, Oral, Daily before breakfast polyethylene glycol, 17 g, Oral, Daily with breakfast senna-docusate, 2 tablet, Oral, Nightly Continuous: lactated Ringer's, 100 mL/hr, Last Rate: 100 mL/hr (09/19/23 1444) As needed: bethanechol, 20 mg, Once PRN bisacodyl, 10 mg, BID PRN glucose, 15 grams of glucose, q15 min PRN Or dextrose 10 %, 12.5 g, q15 min PRN glucose, 15 grams of glucose, q15 min PRN Or dextrose 10 %, 12.5 g, q15 min PRN dextrose 10 %, 25 g, q15 min PRN Or glucose, 30 grams of glucose, q15 min PRN diphenhydrAMINE, 12.5 mg, q4h PRN glucagon (human recombinant), 1 mg, q15 min PRN HYDROcodone-acetaminophen, 5 mg of hydrocodone, q4h PRN HYDROmorphone, 0.5 mg, q6h PRN magnesium hydroxide, 10 mL, BID PRN ondansetron, 4 mg, q6h PRN Assessment/Plan Principal Problem: Hip pain, left Assessment and Plan: Tasneem Perales is a 88 y.o. female with history of HTN, DM type 2, chronic hyponatremia, GERD, HLD, thrombocytosis, CKD, and OA admitted for elective left total hip arthroplasty. Medicine is consulted for medical co-management. Acute on chronic hyponatremia - Per PCP note (Dr. Shelley) 06/28/23, patient was admitted to [facility] 06/16-06/17 for worsening left hip pain, weakness, and confusion, admitted for hyponatremia and hyperkalemia (Na 123, K 5.8), with hyponatremia thought to be due to dehydration with improvement to 133 06/28 - Na 133 09/03, downtrend to 126 this am - s/p supplemental LR overnight, appears euvolemic this am with plan for transfusion for acute anemia, hold additional crystalloid at this time - Serum Osm 274, urine studies pending - Trend BMP this afternoon and in am, continue 1.5L fluid restriction Acute kidney injury on chronic kidney disease Hyperkalemia, POA - Cr ~ 0.8 per most recent labs, increased to 1.29 this am - Potassium 5.6 09/03, stable at 5.1 this am - Urine studies pending - Hold additional IVF as noted above given plan for transfusion; if IVF is indicated would considerNS over LR given hyperkalemia - Strict I/Os, avoid nephrotoxic agents, continue to monitor renal function Acute blood loss on chronic normocytic anemia - Suspect degree of anemia in setting of CKD with acute blood loss anemia - Hgb 10.6 09/03, trended down to 7.0 POD 1 - Discussed with primary team, agree with transfusion as ordered - Trend with CBC in am Essential HTN - Hypotensive this am, hold home irbesartan with fluid replacement as above DM type 2, controlled - A1c 6.3% 06/2023, holding home metformin - Continue FSBG AC/HS and lispro SSI - CC2 diet GERD - Continue PPI Left hip osteoarthritis with postoperative reduced mobility - s/p left KUSH 09/18 - PT/OT recommend subacute rehab with referrals placed - Analgesia, bowel regimen, and DVT ppx per primary Thank you for allowing us to participate in this patient's care, we will continue to follow. Pleasecall with questions or concerns. Citlalli Mcmahon PA-C Division of Hospital Medicine Secure chat preferred * Progress Notes - Laney Tidwell Alida - 09/20/2023 11:05 AM EDT Occupational Therapy Evaluation Patient Name: Tasneem Perales Today's Date: 09/20/2023 OT Discharge Recommendations: Subacute rehab Equipment Recommended: Defer to facility History Tasneem Perales is 88 y.o. female admitted 09/19/2023 for work-up of Hip pain, left. Problem List Active Hospital Problems Diagnosis Date Noted Hip pain, left 08/14/2023 Procedures 09/19/2023 Procedure(s): ARTHROPLASTY, HIP, TOTAL Past Medical History Patient has a past medical history of Diabetes mellitus (CMS/HCC), Hypertension, and Osteoporosis. Past Surgical History Patient has a past surgical history that includes Knee surgery (Right); Lumbar discectomy; and tonsillectomy w/ adenoidectomy. Precautions Left Lower Extremity Weight Bearing Status: Weight Bearing as Tolerated Right Lower Extremity Weight Bearing Status: Full Weight Bearing Left Upper Extremity Weight Bearing Status : Full weight bearing Right Upper Extremity Weight Bearing Status : Full weight bearing ROM Precautions: PHP Medical Precautions: Hip, Fall precautions, Post-Surgical precautions Hip Precautions: Posterior hip precautions Post-Surgical Precautions: PHP Subjective Pt agreeable to assessment. Participants in Care Family/Caregiver Present: Yes Family/Caregiver: Adult Daughter Toll Settlement Clerk: Not Applicable Presentation Oxygen Therapy: None (Room air) Lines and Tubes: Intravenous access Pre-Session: Supine, Head of bed elevated Pre-Session Comments: RN consent to OT evaluation. Post-Session: Chair alarm, Lines intact, RN notified, Call light in reach, Sitting in chair, SCDs applied Post-Session Comments: all needs met Orthoses: Knee immobilizer - Left Home Living/Set-up Lives With: Daughter, Family Home Type: House Home Adaptive Equipment: Rolling walker, Wheelchair-manual Home Layout: Multi-level, Stairs to enter with rails (14 stairs with right rail to get to bedroom) Number of Stairs: 4 Bathroom: Tub/Shower: Tub/Shower combo, Shower chair Bathroom: Toilet: Standard Prior Level of Function Receives Help From: No assist required prior to admission, Daughter Level of Mobility: Ambulatory- household only (declining function since Jan 2023) Mobility [place]: Independent gait with device History of Falls: Yes ADL Performance: Independent Patient/Family Goals Statement Patient wishes to go to [facility] rehab Objective Pain 2/10 in left LE Delirium Screening Cunningham Agitation Sedation Scale (RASS): Alert and calm Confusion Assessment Method-ICU (CAM-ICU/PCAM-ICU) Feature 3: Altered Level of Consciousness: Negative Cognition Overall Cognitive Status: Within Functional Limits Arousal/Alertness: Appropriate responses to stimuli Mood/Behavior: Alert Orientation Level: Oriented X4 Single Step Commands: With increased time Multi-Step Commands: With increased time Method of Communication: Verbal Right Upper Extremity Examination RUE ROM Assessment RUE Assessment: Within Functional Limits Manual Muscle Testing - RUE: Within functional limits Left Upper Extremity Examination LUE ROM Assessment LUE Assessment: Within Functional Limits Manual Muscle Testing - LUE: Within functional limits Right Lower Extremity Examination RLE ROM Assessment RLE Assessment: Within Functional Limits Manual Muscle Testing - RLE: Within functional limits Left Lower Extremity Examination LLE ROM Assessment LLE Assessment: Within Functional Limits Manual Muscle Testing: Within functional limits Bed Mobility Bed Mobility Exam: Supine to Sit Level of [place]: Contact guard Physical/Nonphysical Assist: Supervision, Verbal Cues, Nonverbal cues (demo/gestures), Minimal cues Transfers Transfer Exam: Sit to stand Level of [place]: Minimum assist (75% patient's effort) Physical/Nonphysical Assist: Verbal Cues, Supervision, Minimal cues, 1 person + 1 person to manage equipment Assistive Device: Walker, rolling Transfer Exam: Stand to Sit Level of [place]: Minimum assist (75% patient's effort) Physical/Nonphysical Assist: Verbal Cues, Supervision, Minimal cues, 1 person + 1 person to manage equipment Assistive Device: Walker, rolling Transfer Exam: Bed to Chair/Chair to Bed Level of [place]: Minimum assist (75% patient's effort) Physical/Nonphysical Assist: Additional assist utilized for safety, 1 person + 1 person to manage equipment, Verbal Cues, Supervision, Moderate cues Assistive Device: Walker, rolling Toilet Transfer Level of [place]: Minimum assist (75% patient's effort) Physical/Nonphysical Assist: Additional assist utilized for safety, Minimal cues, Supervision, Verbal Cues, 1 person + 1 person to manage equipment Type of Transfer: Stand-pivot Balance Static Sitting Balance Static Sitting-Balance Support: Feet supported Static Sitting-Level of Assistance: Contact guard Dynamic Sitting Balance Dynamic Sitting-Balance Support: Feet supported Dynamic Sitting-Balance: Lateral weight shifts Level of Assistance: Contact guard Static Standing Balance Static Standing-Balance Support: Right upper extremity support, Left upper extremity support Static Standing-Level of Assistance: Minimum assistance Self-Care Interventions Self Care/Home Management (ADLs) Time Entry: 24 Lower Extremity Dressing LE Dressing Adaptive Equipment: Tech Writer, Sock aide Sock Level of Assistance: Minimum assistance LE Dressing Interventions: while sitting in recliner, pt donned/doffed socks with use AE. Patient required minimal cueing for sequencing with good follow through. Toileting Toileting Level of Assistance: Minimum assistance Where Assessed: Bedside commode Toileting Interventions: Patient completed toileting hygiene while seated with CGA and min cues forsequencing in order to not break precautions. Patient req'd min A for transfer with mod cues for safey. Pt completed additional ADL training including dressing with use of adaptive techniques, grooming, and education on bathroom/shower safety. Pt required Min A with additional verbal cues for safety and techniques. Education on shower transfer and the benefit of initial supervision for bathing as heat and pain medication may cause dizziness and LOB increasing risk for fall. Standardized Assessments [facility] 6-Click Daily Activities Help from Other: Don/Doff Regular Lower Body Clothings: Little Help From Other: Bathing: Little Help From Other: Toileting: Little Help From Other: Don/Doff Upper Body Clothings: None Help From Other: Grooming: None Help From Other: Eating Meals: None [facility] 6 Click - Daily Activities Score: 21 Assessment Pt presented with decreased balance, endurance, standing tolerance, sequencing, problem solving, and motor control which limits patients participation with valued occupations. Pt encouraged for OOB activity and active participation with skilled session for increased IND with ADLs. Pt educated on importance of OOB activity to increase overall strength and functional mobility. Skilled time requiredfor room set-up to promote safe environment for treatment. Pt would benefit from continued skilled OT services to improve IND with occupational deficits. OT Findings: Impaired ADL performance, Impaired IADL performance, Impaired judgment during ADL, Impaired balance, Impaired functional mobility, Decreased endurance/ventilation/gas exchange Evaluation/Treatment Tolerance: Patient limited by fatigue Rehab Potential: Good, to achieve stated therapy goals Eval Complexity Occupational Profile: Expanded review of medical/therapy records and additional review of physical,cognitive, or psychosocial history Performance Deficits: Activities of daily living (ADLs), Instrumental activities of daily living (IADLs), Habits, Routines, Social participation Clinical Decision Making: Moderate Overall Eval complexity: Moderate OT Recommendations Discharge Destination: Subacute rehab Discharge Equipment: Defer to facility Plan Planned OT Interventions ADL retraining, IADL retraining, Balance training, Transfer training, Functional mobility, Strengthening OT Frequency 2 - 5 times per week OT Duration 2 weeks Goals OT GOAL DETAILS Time Frame OT Goal 1: Patient will complete toileting tasks with CGA. 2 weeks OT Goal 2: Patient will complete LBD tasks with appropriate AE as needed CGA. 2 weeks OT Goal 3: Patient will complete all functional transfers with CGA. 2 weeks Written by Laney Tidwell on 09/20/23 at 12:18 PM. * Progress Notes - Marisol Woods - 09/20/2023 11:04 AM EDT Physical Therapy Treatment Patient Name: Tasneem Perales Today's Date: 09/20/2023 PT Discharge Recommendations: Subacute rehab Equipment Recommended: Patient owns appropriate equipment Subjective I want to get out of bed . Participants in Care Family/Caregiver Present: Yes Family/Caregiver: Adult Daughter Presentation Oxygen Therapy: None (Room air) Lines and Tubes: Intravenous access Pre-Session: Supine, Head of bed elevated Pre-Session Comments: RN consent to PT treatment . Post-Session: Chair alarm, Lines intact, RN notified, Call light in reach, Sitting in chair, SCDs applied Post-Session Comments: all needs met Precautions Left Lower Extremity Weight Bearing Status: Weight Bearing as Tolerated Right Lower Extremity Weight Bearing Status: Full Weight Bearing Left Upper Extremity Weight Bearing Status : Full weight bearing Right Upper Extremity Weight Bearing Status : Full weight bearing ROM Precautions: PHP Medical Precautions: Hip, Fall precautions, Post-Surgical precautions Hip Precautions: Posterior hip precautions Post-Surgical Precautions: PHP Objective Pain No complaints of pain Delirium Screening [place] Agitation Sedation Scale (RASS): Alert and calm Confusion Assessment Method-ICU (CAM-ICU/PCAM-ICU) Feature 3: Altered Level of Consciousness: Negative Therapeutic Activity ( 39 Minutes) Pt. Required verbal, tactile and visual cues for above transfers for safe handling, functional mobility and to promote self assist strategies for independence. Pt. Engaged in the above transfers to improve core strength , balance , B LE's strength and overall functional mobility. Rolling / Turning Assist level: Cues: Scooting/Bridging Assist level:CGA, Set up, and Supervision Cues:verbal and tactile Supine to Sit Assist level:CGA, Set up, and Supervision Cues:verbal and tactile Sit to Supine Assist level: Cues: Pt. sat EOB for approx. 5 mins with CGA, Set up, and Supervision and verbal and tactile for proper posture, trunk control, maintaining dynamic/static sitting balance, positioning of UE and LE to promote WB. This improved patient core strength, ROM of trunk, ROM of B UE and LE, dynamic and static sitting balance to promote increased independence for EOB sitting and pre-transfer training activities. Transfers Pt. performed sit to stand transfers with the below assist and cues to promote: WB through B LE's for improved balance, B LE strengthening, and core strength. To facilitate increased independence, decreased caregiver assist, pre-gait activities, for improved functional mobility. Sit to Stand Assist level:MIN, Set up, Supervision, and 1+1 for equipment/line management Device:RW Cues:verbal and tactile Stand to Sit Assist level:MIN, Set up, Supervision, and 1+1 for equipment/line management Device:RW Cues:verbal and tactile Bed < - > Reclining chair and BSC Assist level:MIN, Set up, Supervision, 1+1 for equipment/line management , and Additional assist for safety Device:RW Cues:verbal and tactile Type of transfer: Stand Pivot Pt. Engaged in transfer from Bed-> chair->BSC->chair . Pt. Required extra time to completeall task . She was mod assist with verbal cues as patient has developed a bad habit of pointing herbottom at a chair and flopping. Pt. Educated that this was unsafe behavior and could increase risk for falls . Assessment Pt. has the following impairments : decreased strength, decreased endurance, decreased core strength , safety awareness, and flexed posture . Pt. activity tolerance/endurance is limited to 30+ min's with rest breaks Pt. treatment session: was limited by : fatigue . Pt. still requiring skilled services for functional mobility. Plan Continue PT to progress towards established goals. PT Recommendations Discharge Destination: Subacute rehab Discharge Equipment: Patient owns appropriate equipment PT Goals PT GOAL DETAILS Goal Established Date Time Frame Goal Status PT Goal 1: Pt will demonstrate ability to ambulate 150 feet with FWW: Mod I, in prep for daily homelife. 09/19/23 2 weeks PT Goal 2: Pt will demonstrate ability to perform all functional transfers: Mod I, in prep for dilyhome life. 09/19/23 2 weeks PT Goal 3: Pt will demonstrate ability to negotiate 14 stairs with Right railing: Mod I, in prep for daily home life. 09/19/23 2 weeks PT Goal 4: Pt will recit all 3 PHP: Ind, for safe mobility and discharge. 09/19/23 2 weeks Written by Marisol Woods on 09/20/23 at 3:49 PM. Cosigned by Keven Ayala at 10/02/2023 8:42 AM EDT Associated attestation - Keven Ayala - 10/02/2023 8:42 AM EDT Attest. * Progress Notes - Iza Ellsworth MD - 09/20/2023 7:36 AM EDT Orthopaedic Surgery Progress Note 09/20/23 Subjective: Doing well this AM. Pain well controlled and tolerating diet. Worked with PT yesterday and got acute rehab recs. Is hoping to go to [facility]. Objective: Vitals: 09/20/23 0246 BP: 114/57 Pulse: 72 Resp: Temp: 36.7 ??C (98.1 ??F) SpO2: 94% Physical Examination: No acute distress Non labored breathing Peripheral perfusion intact Focused Musculoskeletal Examination: LLE Aquacel c/d/i, HAP and KI in place. Intact ehl fhl ta gsc. Sensation intact distally. 2+ pulses. Data: Labs in last 18 hours: CBC WBC 8.06 Hb 7.0 (L) Plt 323 Hct 20.9 (L) INR ??, PTT ??, Anti-Xa ?? BMP Na 127 (L) Cl 93 (L) BUN 24 (H) Glu 152 (H) K 5.1 (H) Co2 24 Cr 1.29 (H) Lactate ?? Assessment & Plan: Tasneem Perales is a 88 y.o. female patient with the following orthopedic injuries: L KUSH (09/18) Edited by: Dwayne Mejia MD at 09/19/2023 1807 Tmax 98.1, HR 63-85, BP 96/46-130/60, RR 16-19, SpO2 94-100, UOP 0.48 mL/kg/hr + 1 unmeas (09/19), H/H 7.0/20.9, BMP Cr 1.29, Na 127, K 5.1 (09/19), Dressings: Aquacel Precautions: PHP DVT: ASA PT: Acute rehab Plan: Hemoglobin was 7.0 this AM, was 10.6 preop on 09/03. We are rechecking this because seems likea big drop in a short time. Will transfuse if comes back low again. Will begin working on rehab placement. Mobility Orders Mobility Protocol: General - Mobility Guidelines Extremity Precautions: No Extremity Precautions Other mobility precautions: Posterior hip precautions Other mobility precautions: Other precautions Iza Whiting??, Orthopedic Surgery PGY-2 [facility] Personal Pager: [phone] Orthopaedic Trauma Service Pager: [phone] Orthopaedic Recon/Spine/Foot and Ankle Service Pager: [phone] Cosigned by Griffin Santiago MD at 09/20/2023 8:17 AM EDT Associated attestation - Griffin Santiago MD - 09/20/2023 8:17 AM EDT Signature Only * Progress Notes - Lucy Keven - 09/19/2023 7:06 PM EDT Physical Therapy Evaluation Patient Name: Tasneem Perales Today's Date: 09/19/2023 PT Discharge Recommendations: Acute rehab Equipment Recommended: Patient owns appropriate equipment History Tasneem Perales is 88 y.o. female admitted 09/19/2023 for work-up of Hip pain, left. Problem List Active Hospital Problems Diagnosis Date Noted Hip pain, left 08/14/2023 Procedures 09/19/2023 Procedure(s): ARTHROPLASTY, HIP, TOTAL Past Medical History Patient has a past medical history of Diabetes mellitus ([facility]), Hypertension, and Osteoporosis. Past Surgical History Patient has a past surgical history that includes Knee surgery (Right); Lumbar discectomy; and tonsillectomy w/ adenoidectomy. Precautions Left Lower Extremity Weight Bearing Status: Weight Bearing as Tolerated Right Lower Extremity Weight Bearing Status: Full Weight Bearing Left Upper Extremity Weight Bearing Status : Full weight bearing Right Upper Extremity Weight Bearing Status : Full weight bearing ROM Precautions: PHP Medical Precautions: Hip, Fall precautions, Post-Surgical precautions Hip Precautions: Left LE , Posterior hip precautions Post-Surgical Precautions: PHP Subjective Pt reported having moderate pain in Left hip, but would like to attempt to stand up and transfer toBSC. Participants in Care Family/Caregiver Present: Yes Family/Caregiver: Adult Daughter Toll Settlement Clerk: Not Applicable Presentation Oxygen Therapy: None (Room air) Lines and Tubes: Intravenous access Pre-Session: Supine, Head of bed elevated Pre-Session Comments: RN consent to PT evaluation. Post-Session: Supine, Head of bed elevated, SCDs applied, Bed alarm (zone 1, 2, 3), Lines intact, Call light in reach Post-Session Comments: All needs within reach, multiple nurses present after syncopal episode. Orthoses: Knee immobilizer - Left Home Living/Set-up Lives With: Daughter, Family Home Type: House Home Adaptive Equipment: Rolling walker, Wheelchair-manual Home Layout: Multi-level, Stairs to enter with rails (Patient has 14 stairs with Right railing going up to get to bedroom.) Number of Stairs: 4 Bathroom: Tub/Shower: Tub/Shower combo, Shower chair Bathroom: Toilet: Standard Prior Level of Function Receives Help From: No assist required prior to admission, Daughter Level of Mobility: Ambulatory- household only (Pt has had declining level of function since January 2023, utilizing wc more often over past month.) Mobility [place]: Independent gait with device History of Falls: Yes (3 recent falls) ADL Performance: Independent Patient/Family Goals Pt would like to go to acute rehab for recovery before going back home. Objective Pain Pt reported having moderate pain in Left hip, but did not provide numerical value. Delirium Screening Cunningham Agitation Sedation Scale (RASS): Alert and calm Confusion Assessment Method-ICU (CAM-ICU/PCAM-ICU) Feature 3: Altered Level of Consciousness: Negative Cognition Overall Cognitive Status: Within Functional Limits Arousal/Alertness: Appropriate responses to stimuli Mood/Behavior: Alert Orientation Level: Oriented X4 Single Step Commands: With increased time Multi-Step Commands: With increased time Method of Communication: Verbal Right Upper Extremity Examination RUE Assessment: Within Functional Limits Manual Muscle Testing - RUE: Within functional limits Left Upper Extremity Examination LUE ROM Assessment LUE Assessment: Within Functional Limits Manual Muscle Testing - LUE Manual Muscle Testing - LUE: Within functional limits Right Lower Extremity Examination RLE ROM Assessment RLE Assessment: Within Functional Limits Manual Muscle Testing - RLE Manual Muscle Testing - RLE: Within functional limits Left Lower Extremity Examination LLE Assessment: Within Functional Limits Manual Muscle Testing: Within functional limits Bed Mobility Bed Mobility Exam: Rolling/Turning Level of [place]: Minimum assist (75% patient effort) Physical/Nonphysical Assist: Verbal Cues, Supervision Bed Mobility Exam: Scooting/Bridging Level of [place]: Minimum assist (75% patient's effort) Physical/Nonphysical Assist: Verbal Cues, Supervision Bed Mobility Exam: Supine to Sit Level of [place]: Minimum assist (75% patient's effort) Physical/Nonphysical Assist: Supervision, Verbal Cues Bed Mobility Exam: Sit to Supine Level of [place]: Dependent (Pt with syncopal episode, requiring immediate assistance back into Trendelenburg position.) Cueing provided for not crossing midline with LLE while attempting to scoot to EOB. Transfers Transfer Exam: Sit to stand Level of [place]: Contact guard Physical/Nonphysical Assist: Verbal Cues, Supervision Assistive Device: Walker, rolling Transfer Exam: Stand to Sit Level of [place]: Contact guard Physical/Nonphysical Assist: Verbal Cues, Supervision Assistive Device: Walker, rolling Cueing provided for proper hand placement pushing into bed surface to rise up. Balance Postural Appearance Posture: Rounded shoulders, Forward head Static Sitting Balance Static Sitting-Balance Support: Feet supported Static Sitting-Level of Assistance: Contact guard Dynamic Sitting Balance Dynamic Sitting-Balance Support: Feet supported Dynamic Sitting-Balance: Lateral weight shifts Level of Assistance: Contact guard Static Standing Balance Static Standing-Balance Support: Right upper extremity support, Left upper extremity support Static Standing-Level of Assistance: Contact guard Dynamic Standing Balance Dynamic Standing-Balance Support: Right upper extremity support, Left upper extremity support Dynamic Standing-Balance: Lateral weight shifts ([id number]-[id number]) Dynamic Standing Level of Assistance: Minimum assistance Participation in Functional Tasks: Minimum assistance Gait Training Deferred d/t syncopal episode. Therapeutic Exercise (15 minutes) Access Code: [email or web address] URL: [email or web address] Date: 09/19/2023 Prepared by: Maribeth Castellano Notes Posterior Hip Exercises - Phase 1 (Days 1-7) Ankle Pumps - 3 x daily - 20 reps - 3 hold - Phase 1 (Days 1-7) Knee Push Downs - 3 x daily - 20 reps - 3 hold - Phase 1 (Days 1-7) ButtocksSqueeze - 3 x daily - 20 reps - 3 hold - Phase 1 (Days 1-7) Heel Slide (Supine) - 3 x daily - 20 reps - 3 hold - Phase 1 (Days 1-7) Short Arc Quad - 3 x daily - 20 reps - 3 hold - Phase 1 (Days 1-7) Seated Knee Flexion - 3 x daily - 20 reps - 3 hold - Phase 1 (Days 1-7) Long Arc Quad - 3 x daily - 20 reps - 3 hold - Phase 2 ( Days 8-14) Hip abduction with Extended Knee - 2 x daily - 20 reps - Phase 2 ( Days 8- 14) Bridging - 3 x daily - 10 reps - 3 hold - Phase 2 ( Days 8-) Standing Hip Extension - 2 x daily - 10 reps - Phase 2 ( Days 8-) Standing Hip Flexion - 2 x daily - 10 reps - Phase 3( Days 15-) Hamstring Curl - 2 x daily - 20 reps - Phase 3 ( Days 15-) Bilateral Heel Raises - 2 x daily - 20 reps - Phase 3 ( Days 15-) Balance : Unilateral ( Single Leg Stance ) - 4 x daily -4 reps - Phase 3 ( Days 15-) Single Leg Step-Up - 2 x daily - 20 reps Patient Education - Posterior Hip Replacement Instructions Pt able to complete Phase 1 therex, including ankle pumps, knee push-downs, and glute sets. Educated pt on performing isometrics every waking hour throughout first post-op day. Standardized Assessments Standardized Assessments Standardized Assessments: [facility] 6-Clicks Mobility Assessment [facility] 6-Clicks Mobility Assessment Difficulty patient has turning over in bed (including adjusting bedclothes, sheets, and blankets)?:A little Difficulty patient has sitting down on and standing up from a chair with arms (wheelchair, bedside commode, etc.)?: A little Difficulty patient has moving from lying on back to sitting on the side of the bed?: A little How much help does the patient need moving to and from a bed to a chair (including a wheelchair)?: A little How much help does the patient need to walk in hospital room?: A lot How much help does the patient need climbing 3-5 steps with a railing?: Unable [facility] 6-Clicks Mobility Assessment Total : 15 Assessment Pt presents with multiple comorbidities, a moderate decline in function d/t Left KUSH, as well as with impairments to multiple body systems. Evaluation completed, with pt experiencing syncopal episodeafter standing activities (weight-shifting and [id number]) and sitting at EOB, requiring assistance back into Trendelenburg position to regain full consciousness. Recommend acute rehab after discharge for best opportunity to improve overall function before returning home safely. Impairments: Decreased endurance, ventilation, and/or gas exchange, Impaired attention/alertness, Impaired executive functioning, Impaired cognition/safety awareness, Impaired gait dynamics/performance, Impaired locomotion, Impaired balance, Decreased range of motion, Pain, Decreased strength, Impaired motor planning, Impaired postural/trunk control, Impaired functional mobility/transfers Activity Limitations: Impaired attention/alertness, Inability to ambulate community distances, Inability to transfer independently, Inability to complete ADLs independently, Inability to ambulate household distances, Inability to ambulate independently, Inability to sit independently Activity Tolerance: Tolerates 10 - 20 min activity with multiple rests Evaluation/Treatment Tolerance: Patient limited by fatigue, Patient limited by pain, Treatment limited secondary to medical complications (Comment) (Pt had syncopal episode.) Diagnosis: Difficulty with walking, decreased strength/ROM Rehab Potential: Good, to achieve stated therapy goals Eval Complexity History Profile: 1 - 2 personal factors and/or comorbidities Clinical Presentation: Evolving clinical presentation with changing characteristics Clinical Decision Making: Moderate complexity PT Recommendations Discharge Destination: Acute rehab Discharge Equipment: Patient owns appropriate equipment Plan Planned PT Interventions Balance training, Bed mobility training, Gait training, Transfer training, Stretching, Functional Mobility, ROM, Strengthening PT Frequency Twice daily PT Duration 2 weeks Goals PT GOAL DETAILS Time Frame PT Goal 1: Pt will demonstrate ability to ambulate 150 feet with FWW: Mod I, in prep for daily homelife. 2 weeks PT Goal 2: Pt will demonstrate ability to perform all functional transfers: Mod I, in prep for dilyhome life. 2 weeks PT Goal 3: Pt will demonstrate ability to negotiate 14 stairs with Right railing: Mod I, in prep for daily home life. 2 weeks PT Goal 4: Pt will recit all 3 PHP: Ind, for safe mobility and discharge. 2 weeks Written by Keven Ayala on 09/19/23 at 7:17 PM. * Care Plan - Vesta Wood RN - 09/19/2023 6:05 PM EDT Problem: Adult Inpatient Plan of Care Goal: Plan of Care Review 09/19/20231804 by Vesta Wood RN Outcome: Ongoing, Progressing Flowsheets (Taken 09/19/20231804) Progress: improving 09/19/20231803 by Vesta Wood RN Outcome: Ongoing, Progressing Goal: Patient-Specific Goal (Individualized) 09/19/20231804 by Vesta Wood RN Outcome: Ongoing, Progressing 09/19/2023 1804 by Vesta Wood RN Outcome: Ongoing, Progressing Goal: Absence of Hospital-Acquired Illness or Injury 09/19/2023 180 by Vesta Wood RN Outcome: Ongoing, Progressing 09/19/2023 180 by Vesta Wood RN Outcome: Ongoing, Progressing Goal: Optimal Comfort and Wellbeing 09/19/2023 180 by Vesta Wood RN Outcome: Ongoing, Progressing 09/19/2023 180 by Vesta Wood RN Outcome: Ongoing, Progressing Goal: Readiness for Transition of Care 09/19/2023 180 by Vesta Wood RN Outcome: Ongoing, Progressing 09/19/2023 180 by Vesta Wood RN Outcome: Ongoing, Progressing Problem: Fall Injury Risk Goal: Absence of Fall and Fall-Related Injury 09/19/2023 180 by Vesta Wood RN Outcome: Ongoing, Progressing 09/19/2023 180 by Vesta Wood RN Outcome: Ongoing, Progressing Problem: Surgery Nonspecified Goal: Absence of Bleeding Outcome: Ongoing, Progressing Goal: Effective Bowel Elimination Outcome: Ongoing, Progressing Goal: Fluid and Electrolyte Balance Outcome: Ongoing, Progressing Goal: Blood Glucose Level Within Targeted Range Outcome: Ongoing, Progressing Goal: Absence of Infection Signs and Symptoms Outcome: Ongoing, Progressing Goal: Anesthesia/Sedation Recovery Outcome: Ongoing, Progressing Goal: Optimal Pain Control and Function Outcome: Ongoing, Progressing Goal: Nausea and Vomiting Relief Outcome: Ongoing, Progressing Goal: Effective Urinary Elimination Outcome: Ongoing, Progressing Goal: Effective Oxygenation and Ventilation Outcome: Ongoing, Progressing * Consults - Karan Montaño APRN - 09/19/2023 4:57 PM EDTAssociated Order(s): [facility] Consult performed by: Karan Montaño APRN Consult ordered by: Karime Oviedo APRN Reason for Visit: Hypertension HPI Tasneem E Jesúslvain is a 88 y.o. female seen at the request of Dr. Santiago for management of her hypertension following a left total hip replacement. She is seen in the preoperative area no acute distress. She comes in today to undergo an elective left total hip replacement. In reviewing her past medical history, she does have a history of hypertension currently controlled with an oral agent whichmay need to be adjusted following surgery. In addition, she suffers from kcb-[id number] diabetes mellitus, currently controlled with oral medication. Her last A1c was in June 2023 finding it to be 6.3%. Our team will continue to follow her and manage medically. In addition, she does suffer from chronic hyponatremia that has really been occurring since May 2023. She apparently was hospitalized at [facility] in May for hyponatremia and stayed overnight. I do not have any details from this hospitalization. Her sodium on 09/14/2023 was found to be 129, a repeat on 09/17/2023 found to be 128. PAST MEDICAL HX Hypertension [id number]-[id number] diabetes mellitus Chronic hyponatremia since May 2023 GERD Hyperlipidemia History of thrombocytosis History of chronic kidney disease been in notes from her primary care provider Osteoarthritis left hip PAST SURGICAL HX Past Surgical History: Procedure Laterality Date KNEE SURGERY Right LUMBAR DISCECTOMY TONSILLECTOMY W/ ADENOIDECTOMY HOME MEDICATIONS Prior to Admission medications Medication Sig Start Date End Date Taking? Authorizing Provider acetaminophen (Tylenol) 500 MG tablet Take 1 tablet (500 mg) by mouth 3 times a day. Yes Michael Jacobo MD alendronate (Fosamax) 70 MG tablet Take 1 tablet (70 mg) by mouth 1 (one) time per week. Takes on Sunday Yes Michael Jacobo MD CALCIUM-VITAMIN D PO Take 1 tablet by mouth 2 (two) times a day. Yes Michael Jacobo MD ezetimibe (Zetia) 10 MG tablet Take 1 tablet (10 mg) by mouth Daily. Yes Michael Jacobo MD fexofenadine (Meena) 180 MG tablet Take 1 tablet (180 mg) by mouth 1 (one) time each day. Yes Michael Jacobo MD irbesartan (Avapro) 300 MG tablet Take 1 tablet (300 mg) by mouth Daily. Yes Michael Jacobo MD metFORMIN XR (Glucophage-XR) 750 MG 24 hr tablet Take 2 tablets (1,500 mg) by mouth 1 (one) time each day. 06/05/23 Yes Michael Jacobo MD omeprazole (PriLOSEC) [address] capsule Take 1 capsule (40 mg) by mouth 1 (one) time each day if needed. Yes Michael Jacobo MD calcium carbonate (Os-Valerio) 600 MG tablet Take 1 tablet (600 mg) by mouth 2 (two) times a day with meals. Patient not taking: Reported on 09/04/2023 09/19/23 Michael Jacobo MD cholecalciferol (Vitamin D3) 25 MCG (1000 UT) tablet Take 1 tablet (1,000 Units) by mouth 1 (one) time each day. Patient not taking: Reported on 09/04/2023 09/19/23 Michael Jacobo MD HYDROcodone-acetaminophen (Mesa) 5-325 MG tablet TAKE 1 TABLET BY MOUTH EVERY 6 HOURS NEEDED FOR MILD TO MODERATE PAIN (1-6) FOR 3 DAYS Patient not taking: Reported on 08/14/2023 06/17/23 09/19/23 Michael Jacobo MD NON FORMULARY Smooth Move Tea [facility] Patient not taking: Reported on 09/04/2023 09/19/23 Michael Jacobo MD pioglitazone (Actos) 30 MG tablet Take 1 tablet (30 mg) by mouth Daily. Patient not taking: Reported on 08/14/2023 09/19/23 Michael Jacobo MD ALLERGIES No Known Allergies SOCIAL HISTORY reports that she has never smoked. She has never been exposed to tobacco smoke. She has never used smokeless tobacco. She reports that she does not drink alcohol and does not use drugs. FAMILY HISTORY Family History Problem Relation Name Age of Onset Hypertension Mother Lung cancer Sister Anesthesia problems Neg Hx Malig Hyperthermia Neg Hx Review of Systems Constitutional: No overt complaints HENT: Negative. Eyes: Negative. Respiratory: Denies any shortness of breath, no cough, has never been diagnosed with sleep apnea Cardiovascular: History of hypertension, but no cardiac disease. Denies any chest pain, no chest pressure, no dizziness when standing Gastrointestinal: No nausea or vomiting Endocrine: Diabetes mellitus msj-esvjazp-nrotusdgl Genitourinary: Negative. Musculoskeletal: Chronic left hip pain especially with walking Skin: Negative. Neurological: Negative. Hematological: Does have a history of thrombocytosis, platelets in June 2023 found to be 539 Psychiatric/Behavioral: Negative. Last Vitals Visit Vitals BP 126/62 (BP Location: Right arm, Patient Position: Lying) Pulse 66 Temp 36.3 ??C (97.3 ??F) (Oral) Resp 18 Ht 1.727 m (5' 8 ) Wt 68.5 kg (151 lb) SpO2 97% BMI 22.96 kg/m?? OB Status Postmenopausal Smoking Status Never BSA 1.81 m?? PHYSICAL EXAM Physical Exam Constitutional: Appearance: No acute distress HENT: Head: Normocephalic and atraumatic. Nose: Nose normal. Mouth: Mucous membranes are dry Pharynx: Oropharynx is clear. Eyes: Conjunctiva/sclera: Conjunctivae normal. Pupils: Pupils are equal, round, and reactive to light. Cardiovascular: Rate and Rhythm: Normal rate and regular rhythm. Pulses: Normal pulses. Heart sounds: Normal heart sounds. Trace of edema noted bilaterally, left greater than the right Pulmonary: Effort: Pulmonary effort is normal. Breath sounds: Lung sounds are fairly clear throughout all lung lowe no wheezing or rhonchi Abdominal: General: Bowel sounds are hypoactive but present in all quads Palpations: Abdomen is soft. Musculoskeletal: No joint swelling it is noted, the left lower extremity does appear to be short compared to the right, she does have some generalized decreased muscle tone Skin: General: Skin is warm and dry. Capillary Refill: Capillary refill takes less than 2 seconds. Neurological: General: No focal deficit present. Mental Status: alert and oriented to person, place, and time. Mental status is at baseline. Psychiatric: Mood and Affect: Mood normal. Behavior: Behavior normal. Recent labs labs and diagnostic tests Preop creatinine found to be 0.7 Sodium level: 09/16 @128 09/13 @ 129 09/03 @ 133 ASSESSMENT AND PLAN Chronic hyponatremia -there was to have started around May 2023 when she was 1st hospitalized. Unfortunately there is no details of this hospitalization known. -her sodium level is being monitored by her primary care provider especially over the last week -see any renal lab workup. -it appears that her primary doctor has limited her free water to 1.5 L daily Plan: - will hold off on her tramadol -will place her on a 1500 mL fluid restriction -will obtain laboratory workup values. Essential hypertension -baseline she is on irbesartan 300 mg daily Plan: - plan to hold her irbesartan overnight follow-up with her renal labs. Gzu-nlzjzqw-dwcpbqysn diabetes mellitus -hemoglobin A1c in June 2023 was found to be 6.3 -baseline she is on metformin 750 mg daily Plan: - hold her metformin and place on fingerstick sliding scale GERD Plan: - ppi will be added per protocol Chronic kidney disease -chronic kidney disease is listed in her primary care provider's notes. Her preoperative creatininewas found to be 0.8 with an EGFR of 71 -reviewing her laboratory values it appeared back in April 2022 her creatinine ranged 1.18-1.26 Plan: - avoid nephrotoxins, repeat labs in the morning Arthritis, left hip with reduced mobility -she is scheduled for surgical intervention this afternoon -she has been ambulating mostly in a wheelchair, postoperatively she will be transitioned to a walker. Thank you for allowing us to participate in this patient's care, we will continue to follow. Pleasecontact the hospital medicine ELISE (team 3 ELISE [id number]-[id number], night ELISE 7P-7A) with questions or concerns. Raz Montaño, [facility] Medicine Secure Chat Cosigned by Mojgan Ashley MD at 09/20/2023 8:07 AM EDT * Anesthesia PACU Signout - John Merchant DO - 09/19/2023 1:35 PM EDT Patient: Tasneem Perales Anesthesia Type: general Vitals Value Taken Time BP 129/62 09/19/23 1330 Temp 37.7 ??C (99.8 ??F) 09/19/23 1230 Pulse 66 09/19/23 1334 Resp 14 09/19/23 1334 SpO2 100 % 09/19/23 1334 Vitals shown include unfiled device data. Anesthesia PACU Signout Patient location during evaluation: PACU Patient participation: complete - patient participated Level of consciousness: baseline and awake Pain management: inadequate (pain score >3) with changes suggested below Airway patency: natural airway Hydration status: acceptable PONV: none Cardiovascular status: acceptable and hemodynamically stable Respiratory status: acceptable, spontaneous ventilation, unassisted and nonlabored ventilation Discharge Disposition: admit to inpatient unit Cosigned by Freedom Dickinson MD at 09/19/2023 3:10 PM EDT Associated attestation - Freedom Dickinson MD - 09/19/2023 3:10 PM EDT I saw and evaluated the patient with the resident/fellow. I discussed the case with the resident/fellow and agree with the findings and plan as documented. * Op Note - Griffin Santiago MD - 09/19/2023 11:35 AM EDT Operative Note Date: 09/19/23 Location: [facility] OR Name: Tasneem Perales, : 1935, Diagnoses: Pre-op Diagnosis Hip pain, left with arthritis Post-op Diagnosis Hip pain, left with arthritis Procedure(s): Left total hip Attending Surgeon(s): * Griffin Santiago - Primary * Gila Vazquez - Assisting Data Governance Consultant(s): * Ag Boston MD - Resident - Assisting Anesthesia: General ASA: III Blood Administration: Blood Product Administration History None Estimated Blood Loss: Minimal Drains: * None in log * Implants Type Name Action Serial No. Hip SHELL TRIDENT II CLUSTER 52MM - [id number] Implanted Liner LINER TRIDENT X3 10DEG 36 mm ID 5.9 mm - [id number] Implanted Screw SCREW 6.5MM TRIDENT LOW PROFILE HEX 25MM - [id number] Implanted Cable CHG CABLE D-M 2.0MM BEADED SET - [id number] Implanted Hip HIP SIZE 6 ACCOLADE II 127 DEG - [id number] Implanted Hip CHG HEAD DELTA V-40 CERAMIC 36 - [id number] Implanted Specimen: Specimens ID Source Frozen? 1 Hip, Left No Description: left femoral head Findings: Indications: Tasneem Perales is an 88 y.o. female who is having surgery for Hip pain, left. Narrative: This pleasant patient has failed non operative management for their hip degenerative joint disease as such the risks benefits and alternatives of the surgical procedure were discussed with the patient preoperatively and they consented. These risks included but were not limited to bleeding, infection, damage to nerves and blood vessels, heart attack, , stroke, need for additional surgical procedure, DVT, PE, fracture, dislocation, or limb length discrepancy. Patient signed written consent after voicing a specific understanding of these surgical risks and reviewing the consent form. The patient was met in the preop holding area, surgical limb was signed, and surgical consent was reviewed. They were then taken to the operating room induced under anesthesia, placed on the operating room table, surgical extremity was prepped draped normal sterile fashion. Surgical time-out was performed according to hospital policy and patient received intravenous antibiotics prior to incision. Posterior approach to the hip was utilized, carried down the subcutaneous tissues, through gluteus heber. The sciatic nerve was identified and protected through the duration of the surgical procedure. A deep Charnley bow was placed and posterolateral capsulotomy was performed and tagged with 5. FiberWire. The hip was dislocated and based on preoperative templating a femoral neck osteotomy was made using a ruler. The hip was translated anteriorly and deep acetabular retractors were placed. Thelabrum and the contents of the cotyloid fossa were removed. The acetabulum was then reamed up to the appropriate size reamer based on preoperative templating and the final cup was placed within the acetabulum in anteversion relative to the patien's ottawa acetabular version. Acetabular bone screw(s) and the final acetabular liner were placed without difficulty. The proximal femur was then exposedand we used a canal finer, lateralizer, and sequentially broached up to the appropriate size femoral component placing the femoral component in anteversion relative to the patient's ottawa version. A trial reduction was then performed with the appropriate templated head. We had excellent reproduction of the patient's ot[place] limb length at both knees and the ankles, the quad mechanism was not extensively tight, the hip would not dislocate anteriorly in external rotation, and at 90?? of flexion 0?? abduction greater than 30?? of internal rotation was obtained. In the sleep position greater than20?? internall rotation was obtained. A prophylactic cable was placed due to the patients osteoporosis. The trial components were removed and the final components were placed with the same limb lengths and stability on evaluation. The hip was then irrigated with normal saline and a dilute betadine irrigant, capsul and rotators were closed thru bone tunnels in the proximal femur, the wound was closed in surgical layers, sterile dressings were applied. At the end of the procedure all sponge and lap counts were appropriate. Complications: None; patient tolerated the procedure well. Submitted by: Griffin Santiago MD - 09/19/2023 * H&P - Ag Boston MD - 09/19/2023 9:19 AM EDT Images from the original note were not included. Chief Concern & History Of Present Illness Tasneem Perales is a 88 y.o. female presenting for left total hip arthroplasty. Past Medical History She has a past medical history of Diabetes mellitus (CMS/[facility]), Hypertension, and Osteoporosis. Surgical History She has a past surgical history that includes Knee surgery (Right); Lumbar discectomy; and tonsillectomy w/ adenoidectomy. Family History Family History Problem Relation Name Age of Onset Hypertension Mother Lung cancer Sister Anesthesia problems Neg Hx Malig Hyperthermia Neg Hx Social History She reports that she has never smoked. She has never been exposed to tobacco smoke. She has never used smokeless tobacco. She reports that she does not drink alcohol and does not use drugs. Occupational History Employer: No address on file. Travel History Relevant International Travel History: Travel Screening Question Response Have you been in contact with someone who was sick? No / Unsure Do you have any of the following new or worsening symptoms? None of these Have you traveled internationally or domestically in the last month? No Travel History Travel since 08/20/23 No documented travel since 08/20/23 Relevant Domestic Travel History: None Immunizations reviewed VACCINE/DOSE Flu Tetanus Pneumovax Shingles Allergies Patient has no known allergies. Medications Current Facility-Administered Medications Medication Dose Route Frequency Provider Last Rate Last Admin acetaminophen (Tylenol) tablet 1,000 mg 1,000 mg Oral Once Jose Vo MD ceFAZolin (Ancef) injection 2 g 2 g Intravenous Once Jose Vo MD dexamethasone (Decadron) injection 8 mg 8 mg Intravenous Once Jose Vo MD gabapentin (Neurontin) capsule 300 mg 300 mg Oral Once Jose Vo MD ketorolac (Toradol) injection 15 mg 15 mg Intravenous Once Jose Vo MD oxyCODONE (Roxicodone) immediate release tablet 5 mg 5 mg Oral Once Jose Vo MD Povidone-Iodine 5 % swab solution 1 Application 1 Application Nasal Once Jose Vo MD scopolamine (Transderm-Scop) patch 1 patch 1 patch Transdermal Once Jose Vo MD sodium chloride 0.9 % flush 10 mL 10 mL Intravenous q12h Jose Vo MD And sodium chloride 0.9 % flush 10 mL 10 mL Intravenous PRN Jose Vo MD traMADol (Ultram) tablet 50 mg 50 mg Oral Once Jose Vo MD tranexamic acid (Cyklokapron) IVPB 1,000 mg 1,000 mg Intravenous Once Jose Vo MD tranexamic acid (Cyklokapron) IVPB 1,000 mg 1,000 mg Intravenous Once Jose Vo MD vancomycin in dextrose (Vancocin) IVPB 1,000 mg 1,000 mg Intravenous Once Jose Vo MD Review of Systems 14 point ROS Negative Physical Exam GEN: no apparent distress, well nourished HENT: atraumatic, normocephalic EYES: no scleral icterus, no visible conjunctival hemorrhage RESP: no respiratory distress, symmetric chest rise CV: appears well perfused, normal rate ABD: nontender, nondistended, no obvious masses, no evidence of peritonitis MSK/EXT: no apparent deformities, strength/tone normal : deferred NEURO: alert and oriented, no focal CN deficits PSYCH: appropriate affect, mood congruent, interactive Last Recorded Vitals Blood pressure (!) 167/56, pulse 71, temperature 36.1 ??C (96.9 ??F), temperature source Temporal, resp. rate 18, height 1.727 m (5' 8 ), weight 68.9 kg (151 lb 14.4 oz), SpO2 99%. Relevant Results None Assessment/Plan Principal Problem: Hip pain, left To OR for left total hip arthroplasty Cosigned by Griffin Santiago MD at 09/19/2023 12:45 PM EDT Associated attestation - Griffin Santiago MD - 09/19/2023 12:45 PM EDT I saw and evaluated the patient with the resident/fellow. I discussed the case with the resident/fellow and agree with the findings and plan as documented. documented in this encounter Plan of Treatment Upcoming Encounters Date Type Department Care Team (Late st Contact Info) Description 03/03/2025 1:30 PM EDT Office Visit Medical Office Building [facility] [address], [address] [place] [id number] Griffin Santiago MD [address] [place] [address] Pending Results Name Type Priority Associated Diagnoses Date/Time Transfuse RBC Transfusion Administration Routine 09/20/2023 12:55 PM EDT Prepare Leukocyte Reduced RBC: 1 Units Blood Bank Routine 09/21/2023 6:25 AM EDT documented as of this encounter Procedures Procedure Name Priority Date/Time Associated Diagnosis Comments POCT GLUCOSE METER UNSOLICITED RESULTS Routine 09/25/2023 12:03 PM EDT POCT GLUCOSE METER UNSOLICITED RESULTS Routine 09/25/2023 7:30 AM EDT BASIC METABOLIC PANEL, PLASMA Pending Discharge 09/25/2023 2:29 AM EDT POCT GLUCOSE METER UNSOLICITED RESULTS Routine 09/24/2023 9:27 PM EDT POCT GLUCOSE METER UNSOLICITED RESULTS Routine 09/24/2023 4:14 PM EDT POCT GLUCOSE METER UNSOLICITED RESULTS Routine 09/24/2023 10:58 AM EDT CBC W/O DIFFERENTIAL STAT 09/24/2023 9:37 AM EDT PHOSPHORUS, PLASMA Routine 09/24/2023 1: 56 AM EDT MAGNESIUM, PLASMA Routine 09/24/2023 1:5 6 AM EDT BASIC METABOLIC PANEL, PLASMA Routine 09/24/2023 1:56 AM EDT POCT GLUCOSE METER UNSOLICITED RESULTS Routine 09/23/2023 8:32 PM EDT POCT GLUCOSE METER UNSOLICITED RESULTS Routine 09/23/2023 4:36 PM EDT POCT GLUCOSE METER UNSOLICITED RESULTS Routine 09/23/2023 11:31 AM EDT POCT GLUCOSE METER UNSOLICITED RESULTS Routine 09/23/2023 7:31 AM EDT CBC W/O DIFFERENTIAL Routine 09/23/2023 3:41 AM EDT BASIC METABOLIC PANEL, PLASMA Routine 09/23/2023 3:41 AM EDT POCT GLUCOSE METER UNSOLICITED RESULTS Routine 09/22/2023 7:45 PM EDT POCT GLUCOSE METER UNSOLICITED RESULTS Routine 09/22/2023 4:52 PM EDT POCT GLUCOSE METER UNSOLICITED RESULTS Routine 09/22/2023 11:39 AM EDT BASIC METABOLIC PANEL, PLASMA Routine 09/22/2023 10:15 AM EDT POCT GLUCOSE METER UNSOLICITED RESULTS Routine 09/22/2023 7:57 AM EDT CBC W/O DIFFERENTIAL Routine 09/22/2023 3:13 AM EDT BASIC METABOLIC PANEL, PLASMA Routine 09/22/2023 3:13 AM EDT POCT GLUCOSE METER UNSOLICITED RESULTS Routine 09/21/2023 7:41 PM EDT POCT GLUCOSE METER UNSOLICITED RESULTS Routine 09/21/2023 4:30 PM EDT BASIC METABOLIC PANEL, PLASMA Routine 09/21/2023 2:33 PM EDT POCT GLUCOSE METER UNSOLICITED RESULTS Routine 09/21/2023 12:01 PM EDT URINALYSIS MICROSCOPIC FOR UA REFLEX Routine 09/21/2023 11:40 AM EDT UREA NITROGEN, RANDOM URINE Routine 09/21/2023 11:40 AM EDT SODIUM, URINE, RANDOM Routine 09/21/2023 11:40 AM EDT PROTEIN, URINE, RANDOM WITH CREATININE Routine 09/21/2023 11:40 AM EDT OSMOLALITY, URINE Add-On 09/21/2023 11: 40 AM EDT OSMOLALITY, URINE Routine 09/21/2023 11: 40 AM EDT URINALYSIS WITH REFLEX MICROSCOPIC Routine 09/21/2023 11:40 AM EDT POCT GLUCOSE METER UNSOLICITED RESULTS Routine 09/21/2023 8:06 AM EDT TRANSFUSE RED BLOOD CELLS Routine 09/21/2023 6:34 AM EDT PREPARE RBC Routine 09/21/2023 6:25 AM EDT PREPARE RBC Routine 09/21/2023 6:10 AM EDT CBC W/O DIFFERENTIAL Routine 09/21/2023 2:43 AM EDT MAGNESIUM, PLASMA Routine 09/21/2023 2:4 3 AM EDT BASIC METABOLIC PANEL, PLASMA Routine 09/21/2023 2:43 AM EDT POCT GLUCOSE METER UNSOLICITED RESULTS Routine 09/20/2023 8:05 PM EDT POCT GLUCOSE METER UNSOLICITED RESULTS Routine 09/20/2023 4:35 PM EDT POCT GLUCOSE METER UNSOLICITED RESULTS Routine 09/20/2023 11:32 AM EDT EXTRA TUBE LAVENDER TOP Routine 09/20/2023 10:13 AM EDT EXTRA TUBES Routine 09/20/2023 10:13 AM EDT TYPE AND SCREEN Routine 09/20/2023 10:13 AM EDT BASIC METABOLIC PANEL, PLASMA Routine 09/20/2023 9:22 AM EDT PREPARE RBC Routine 09/20/2023 8:42 AM EDT POCT GLUCOSE METER UNSOLICITED RESULTS Routine 09/20/2023 8:04 AM EDT CBC W/O DIFFERENTIAL Routine 09/20/2023 4:49 AM EDT OSMOLALITY, SERUM Routine 09/20/2023 4:4 9 AM EDT BASIC METABOLIC PANEL, PLASMA Routine 09/20/2023 4:49 AM EDT POCT GLUCOSE METER UNSOLICITED RESULTS Routine 09/20/2023 3:34 AM EDT POCT GLUCOSE METER UNSOLICITED RESULTS Routine 09/19/2023 9:24 PM EDT POCT GLUCOSE METER UNSOLICITED RESULTS Routine 09/19/2023 7:43 PM EDT POCT GLUCOSE METER UNSOLICITED RESULTS Routine 09/19/2023 5:05 PM EDT XR HIP LEFT 2 OR 3 VIEWS STAT 09/19/2023 1:04 PM EDT SURGICAL PATHOLOGY EXAM Routine 09/19/2023 11:36 AM EDT Hip pain, left FL TOTAL HIP ARTHROPLASTY 09/19/2023 11:03 AM EDT Hip pain, left Special Needs alfonso implants, cables POCT GLUCOSE METER UNSOLICITED RESULTS Routine 09/19/2023 9:22 AM EDT documented in this encounter Results * (ABNORMAL) POCT glucose meter (09/25/2023 12:03 PM EDT) POCT Glucose 176(H) 74 - 99 mg/dL 09/25/2023 12:05 PM EDT [facility] Comment:Accuracy of a glucos e result obtained from a capillary whole blood specimen relies upon adequate, non-compromised capillary blood flow. If the capillary glucose result is not consistent with the patient's clinical signs and symptoms, glucose testing should be repeated with either an arterial or venous sample on the glucometer or sent to the main labortory for testing. Comment 09/25/2023 12:05 PM EDT [facility] Traffic Technician ID Maycol Michelle 09/25/2023 12:05 PM EDT [facility] Device ID [id number] 09/25/2023 12:05 PM EDT [facility] Specimen Type POC Capillary 09/25/2023 12:05 PM EDT [facility] Blood Capillary blood specimen / Unknown 09/25/2023 12:03 PM EDT 09/25/2023 12:05 PM EDT us Griffin Santiago MD LAB POINT OF CARE TEST DOCKED DEVICE UNSOLICITED RESULTS Final Result [facility] [address] [place] [id number] * POCT glucose meter (09/25/2023 7:30 AM EDT) [facility] POCT Glucose 99 74 - 99 mg/dL 09/25/2023 7:32 AM EDT [facility] Comment:Accuracy of a glucos e result obtained from a capillary whole blood specimen relies upon adequate, non-compromised capillary blood flow. If the capillary glucose result is not consistent with the patient's clinical signs and symptoms, glucose testing should be repeated with either an arterial or venous sample on the glucometer or sent to the main labortory for testing. Comment 09/25/2023 7:32 AM EDT [facility] Traffic Technician ID Maycol Michelle 09/25/2023 7:32 AM EDT [facility] Device ID [id number] 09/25/2023 7:32 AM EDT [facility] Specimen Type POC Capillary 09/25/2023 7:32 AM EDT [facility] Blood Capillary blood specimen / Unknown 09/25/2023 7:30 AM EDT 09/25/2023 7:32 AM EDT Griffin Santiago MD LAB POINT OF CARE TEST DOCKED DEVICE UNSOLICITED RESULTS Final Result [facility] [address] [place] [address] * (ABNORMAL) Basic metabolic panel (09/25/2023 2:29 AM EDT) [facility] Glucose, Plasma 126(H) 74 - 99 mg/dL 09/25/2023 2:59 AM EDT [facility] BUN, Plasma 27(H) 8 - 23 mg/dL 09/25/2023 2:59 AM EDT [facility] Creatinine, Plasma 0.82 0.60 - 1.10 mg/dL 09/25/2023 2:59 AM EDT [facility] BUN/Creatinine Ratio 33 09/25/2023 2:59 AM EDT [facility] Sodium, Plasma 126(L) 136 - 145 mmol/L 09/25/2023 2:59 AM EDT [facility] Potassium, Plasma 4.7 3.7 - 4.8 mmol/L 09/25/2023 2:59 AM EDT [facility] Chloride, Plasma 95(L) 97 - 107 mmol/L 09/25/2023 2:59 AM EDT [facility] CO2, Plasma 25 22 - 29 mmol/L 09/25/2023 2:59 AM EDT [facility] Anion Gap 6 6 - 16 mmol/L 09/25/2023 2:59 AM EDT [facility] Total Calcium, Plasma 8.4(L) 8.9 - 10.2 mg/dL 09/25/2023 2:59 AM EDT [facility] eGFRcr 69.8 mL/min/1.7 3m*2 09/25/2023 2:59 AM EDT [facility] Comment:Reported eGFRcr in m L/min/1.73m2 is based the CKD-EPI 2020 equation that does not use a race coefficient. Blood Venous blood specimen / Unknown Venipuncture / Unknown 09/25/2023 2:29 AM EDT 09/25/2023 2:37 AM EDT Lucy Mcbride APRN LAB BLOOD ORDERABLES Marielle solitario Result [facility] [address] [place] [address] * (ABNORMAL) POCT glucose meter (09/24/2023 9:27 PM EDT) POCT Glucose 140(H) 74 - 99 mg/dL 09/24/2023 9:29 PM EDT [facility] Comment:Accuracy of a glucos e result obtained from a capillary whole blood specimen relies upon adequate, non-compromised capillary blood flow. If the capillary glucose result is not consistent with the patient's clinical signs and symptoms, glucose testing should be repeated with either an arterial or venous sample on the glucometer or sent to the main labortory for testing. Comment 09/24/2023 9:29 PM EDT [facility] Traffic Technician ID Nelly Keys 09/24/19 9:29 PM EDT [facility] Device ID [id number] 09/24/2023 9:29 PM EDT [facility] Specimen Type POC Capillary 09/24/2023 9:29 PM EDT [facility] Blood Capillary blood specimen / Unknown 09/24/2023 9:27 PM EDT 09/24/2023 9:29 PM EDT Griffin Santiago MD LAB POINT OF CARE TEST DOCKED DEVICE UNSOLICITED RESULTS Final Result Performing Organization Address [facility] Co de Phone Number [facility]ALTHCARE [facility] [address] [place] [address] * (ABNORMAL) POCT glucose meter (09/24/2023 4:14 PM EDT) Pathologist [facility] POCT Glucose 178(H) 74 - 99 mg/dL 09/24/2023 4:15 PM EDT [facility] Comment:Accuracy of a glucos e result obtained from a capillary whole blood specimen relies upon adequate, non-compromised capillary blood flow. If the capillary glucose result is not consistent with the patient's clinical signs and symptoms, glucose testing should be repeated with either an arterial or venous sample on the glucometer or sent to the main labortory for testing. Comment 09/24/2023 4:15 PM EDT [facility] Traffic Technician ID Diane De La Torre 09/24/2023 4:15 PM EDT [facility] Device ID [id number] 09/24/2023 4:15 PM EDT [facility] Specimen Type POC Capillary 09/24/2023 4:15 PM EDT [facility] Blood Capillary blood specimen / Unknown 09/24/2023 4:14 PM EDT 09/24/2023 4:15 PM EDT us Griffin Santiago MD LAB POINT OF CARE TEST DOCKED DEVICE UNSOLICITED RESULTS Final Result Performing Organization Address City/[facility] Co de Phone Number [facility] [address] [place] [address] * (ABNORMAL) POCT glucose meter (09/24/2023 10:58 AM EDT) Pathologist [facility] POCT Glucose 134(H) 74 - 99 mg/dL 09/24/2023 11:00 AM EDT [facility] Comment:Accuracy of a glucos e result obtained from a capillary whole blood specimen relies upon adequate, non-compromised capillary blood flow. If the capillary glucose result is not consistent with the patient's clinical signs and symptoms, glucose testing should be repeated with either an arterial or venous sample on the glucometer or sent to the main labortory for testing. Comment 09/24/2023 11:00 AM EDT [facility] Traffic Technician ID Diane De La Torre 09/24/2023 11:00 AM EDT HEALTH[facility]ARE LAB Device ID [id number] 09/24/2023 11:00 AM EDT [facility] Specimen Type POC Capillary 09/24/2023 11:00 AM EDT [facility] Blood Capillary blood specimen / Unknown 09/24/2023 10:58 AM EDT 09/24/2023 11:00 AM EDT us Griffin Santiago MD LAB POINT OF CARE TEST DOCKED DEVICE UNSOLICITED RESULTS Final Result Performing Organization Address City/State/[facility] Co de Phone Number [facility]ARE [facility] [address] [place] [address] * (ABNORMAL) CBC W/O Differential (09/24/2023 9:37 AM EDT) [facility] WBC Count 6.84 3.70 - 10.30 10*3/uL LAB HEMATOLOGY METHOD 09/24/2023 9:48 AM EDT [facility] RBC Count 2.80(L) 3.90 - 5.20 10*6/uL LAB HEMATOLOGY METHOD 09/24/2023 9:48 AM EDT [facility] HGB 7.8(L) 11.2 - 15.7 g/dL LAB HEMATOLOGY METHOD 09/24/2023 9:48 AM EDT [facility] HCT 23.7(L) 34.0 - 45.0 % LAB HEMATOLOGY METHOD 09/24/2023 9:48 AM EDT [facility] Platelet Count 319 155 - 369 10*3/uL LAB HEMATOLOGY METHOD 09/24/2023 9:48 AM EDT [facility] MCV 85 79 - 98 fL LAB HEMATOLOGY METHOD 09/24/2023 9:48 AM EDT [facility] MCH 27.9 26.0 - 32.0 pg LAB HEMATOLOGY METHOD 09/24/2023 9:48 AM EDT [facility] MCHC 32.9 30.7 - 35.5 g/dL LAB HEMATOLOGY METHOD 09/24/2023 9:48 AM EDT [facility] RDW 16.6(H) 11.5 - 14.5 % LAB HEMATOLOGY METHOD 09/24/2023 9:48 AM EDT [facility] MPV 8.7(L) 8.8 - 12.5 fL LAB HEMATOLOGY METHOD 09/24/2023 9:48 AM EDT [facility] nRBC 0.0 <=0.0 per 100 WBCs LAB HEMATOLOGY METHOD 09/24/2023 9:48 AM EDT [facility] Blood Venous blood specimen / Unknown Venipuncture / Unknown 09/24/2023 9:37 AM EDT 09/24/2023 9:42 AM EDT Karime Oviedo APRN LAB BLOOD ORDERABLES Final Re sult Performing Organization Address City/[facility]/ZIP Co de Phone Number [facility] [address] [place] [address] * Phosphorus, Plasma (09/24/2023 1:56 AM EDT) Phosphorus, Plasma 3.5 2.5 - 4.5 mg/dL 09/24/2023 2:29 AM EDT [facility] Blood Venous blood specimen / Unknown Venipuncture / Unknown 09/24/2023 1:56 AM EDT 09/24/2023 2:04 AM EDT Citlalli LEMON LAB BLOOD ORDERABLES Final Res ult [facility] [address] [place] [address] * (ABNORMAL) Magnesium, Plasma (09/24/2023 1:56 AM EDT) Magnesium, Plasma 1.7(L) 1.9 - 2.4 mg/dL 09/24/2023 2:29 AM EDT [facility] Blood Venous blood specimen / Unknown Venipuncture / Unknown 09/24/2023 1:56 AM EDT 09/24/2023 2:04 AM EDT Citlalli LEMON LAB BLOOD ORDERABLES Final Res ult Performing Organization Address City/[facility]/ZIP Co de Phone Number [facility] [address] [place] [address] * (ABNORMAL) Basic Metabolic Panel, Plasma (09/24/2023 1:56 AM EDT) Glucose, Plasma 132(H) 74 - 99 mg/dL 09/24/2023 2:29 AM EDT [facility] BUN, Plasma 35(H) 8 - 23 mg/dL 09/24/2023 2:29 AM EDT [facility] Creatinine, Plasma 0.90 0.60 - 1.10 mg/dL 09/24/2023 2:29 AM EDT [facility] BUN/Creatinine Ratio 39 09/24/2023 2:29 AM EDT [facility] Sodium, Plasma 126(L) 136 - 145 mmol/L 09/24/2023 2:29 AM EDT [facility] Potassium, Plasma 5.1(H) 3.7 - 4.8 mmol/L 09/24/2023 2:29 AM EDT [facility] Chloride, Plasma 96(L) 97 - 107 mmol/L 09/24/2023 2:29 AM EDT [facility] CO2, Plasma 25 22 - 29 mmol/L 09/24/2023 2:29 AM EDT [facility] Anion Gap 5(L) 6 - 16 mmol/L 09/24/2023 2:29 AM EDT [facility] Total Calcium, Plasma 8.7(L) 8.9 - 10.2 mg/dL 09/24/2023 2:29 AM EDT [facility] eGFRcr 62.4 mL/min/1.7 3m*2 09/24/2023 2:29 AM EDT [facility] Comment:Reported eGFRcr in m L/min/1.73m2 is based the CKD-EPI 2020 equation that does not use a race coefficient. Blood Venous blood specimen / Unknown Venipuncture / Unknown 09/24/2023 1:56 AM EDT 09/24/2023 2:04 AM EDT Citl[facility] LEMON LAB BLOOD ORDERABLES Final Res ult [facility] [address] [place] [address] * (ABNORMAL) POCT glucose meter (09/23/2023 8:32 PM EDT) [facility] POCT Glucose 172(H) 74 - 99 mg/dL 09/23/2023 8:34 PM EDT [facility] Comment:Accuracy of a glucos e result obtained from a capillary whole blood specimen relies upon adequate, non-compromised capillary blood flow. If the capillary glucose result is not consistent with the patient's clinical signs and symptoms, glucose testing should be repeated with either an arterial or venous sample on the glucometer or sent to the main labortory for testing. Comment 09/23/2023 8:34 PM EDT [facility] Traffic Technician ID Maycol Michelle 09/23/2023 8:34 PM EDT [facility] Device ID [id number] 09/23/2023 8:34 PM EDT [facility] Specimen Type POC Capillary 09/23/2023 8:34 PM EDT [facility] Blood Capillary blood specimen / Unknown 09/23/2023 8:32 PM EDT 09/23/2023 8:34 PM EDT Griffin Santiago MD LAB POINT OF CARE TEST DOCKED DEVICE UNSOLICITED RESULTS Final Result Performing Organization Address [facility]/ZIP Co de Phone Number [facility] [address] [place] [address] * (ABNORMAL) POCT glucose meter (09/23/2023 4:36 PM EDT) [facility] POCT Glucose 137(H) 74 - 99 mg/dL 09/23/2023 4:37 PM EDT [facility] Comment:Accuracy of a glucos e result obtained from a capillary whole blood specimen relies upon adequate, non-compromised capillary blood flow. If the capillary glucose result is not consistent with the patient's clinical signs and symptoms, glucose testing should be repeated with either an arterial or venous sample on the glucometer or sent to the main labortory for testing. Comment 09/23/2023 4:37 PM EDT [facility] Traffic Technician ID Miguel Angel Maycol 09/23/2023 4:37 PM EDT [facility] Device ID [id number] 09/23/2023 4:37 PM EDT [facility] Specimen Type POC Capillary 09/23/2023 4:37 PM EDT [facility] Blood Capillary blood specimen / Unknown 09/23/2023 4:36 PM EDT 09/23/2023 4:37 PM EDT us Griffin Santiago MD LAB POINT OF CARE TEST DOCKED DEVICE UNSOLICITED RESULTS Final Result Performing Organization Address [facility] de Phone Number [facility] [address] [place] [address] * (ABNORMAL) POCT glucose meter (09/23/2023 11:31 AM EDT) POCT Glucose 140(H) 74 - 99 mg/dL 09/23/2023 11:38 AM EDT [facility] Comment:Accuracy of a glucos e result obtained from a capillary whole blood specimen relies upon adequate, non-compromised capillary blood flow. If the capillary glucose result is not consistent with the patient's clinical signs and symptoms, glucose testing should be repeated with either an arterial or venous sample on the glucometer or sent to the main labortory for testing. Comment 09/23/2023 11:38 AM EDT [facility] Traffic Technician ID Maycol Michelle 09/23/2023 11:38 AM EDT [facility] Device ID [id number] 09/23/2023 11:38 AM EDT [facility] Specimen Type POC Capillary 09/23/2023 11:38 AM EDT [facility] Blood Capillary blood specimen / Unknown 09/23/2023 11:31 AM EDT 09/23/2023 11:38 AM EDT us Griffin Santiago MD LAB POINT OF CARE TEST DOCKED DEVICE UNSOLICITED RESULTS Final Result Performing Organization Address [facility] de Phone Number [facility] [address] [place] [address] * (ABNORMAL) POCT glucose meter (09/23/2023 7:31 AM EDT) POCT Glucose 103(H) 74 - 99 mg/dL 09/23/2023 7:41 AM EDT [facility] Comment:Accuracy of a glucos e result obtained from a capillary whole blood specimen relies upon adequate, non-compromised capillary blood flow. If the capillary glucose result is not consistent with the patient's clinical signs and symptoms, glucose testing should be repeated with either an arterial or venous sample on the glucometer or sent to the main labortory for testing. Comment 09/23/2023 7:41 AM EDT [facility] Traffic Technician ID Maycol Michelle 09/23/2023 7:41 AM EDT [facility] Device ID [id number] 09/23/2023 7:41 AM EDT [facility] Specimen Type POC Capillary 09/23/2023 7:41 AM EDT [facility] Blood Capillary blood specimen / Unknown 09/23/2023 7:31 AM EDT 09/23/2023 7:41 AM EDT us Griffin Santiago MD LAB POINT OF CARE TEST DOCKED DEVICE UNSOLICITED RESULTS Final Result Performing Organization Address City/State/[facility] Co de Phone Number [facility] [address] [place] [address] * (ABNORMAL) CBC W/O Differential (09/23/2023 3:41 AM EDT) WBC Count 6.72 3.70 - 10.30 10*3/uL LAB HEMATOLOGY METHOD 09/23/2023 4:06 AM EDT [facility] RBC Count 2.69(L) 3.90 - 5.20 10*6/uL LAB HEMATOLOGY METHOD 09/23/2023 4:06 AM EDT [facility] HGB 7.6(L) 11.2 - 15.7 g/dL LAB HEMATOLOGY METHOD 09/23/2023 4:06 AM EDT [facility] HCT 22.4(L) 34.0 - 45.0 % LAB HEMATOLOGY METHOD 09/23/2023 4:06 AM EDT [facility] Platelet Count 273 155 - 369 10*3/uL LAB HEMATOLOGY METHOD 09/23/2023 4:06 AM EDT [facility] MCV 83 79 - 98 fL LAB HEMATOLOGY METHOD 09/23/2023 4:06 AM EDT [facility] MCH 28.3 26.0 - 32.0 pg LAB HEMATOLOGY METHOD 09/23/2023 4:06 AM EDT [facility] MCHC 33.9 30.7 - 35.5 g/dL LAB HEMATOLOGY METHOD 09/23/2023 4:06 AM EDT [facility] RDW 16.4(H) 11.5 - 14.5 % LAB HEMATOLOGY METHOD 09/23/2023 4:06 AM EDT [facility] MPV 9.1 8.8 - 12.5 fL LAB HEMATOLOGY METHOD 09/23/2023 4:06 AM EDT [facility] nRBC 0.0 <=0.0 per 100 WBCs LAB HEMATOLOGY METHOD 09/23/2023 4:06 AM EDT [facility] Blood Venous blood specimen / Unknown Venipuncture / Unknown 09/23/2023 3:41 AM EDT 09/23/2023 4:04 AM EDT us Citlalli LEMON LAB BLOOD ORDERABLES Final Res ult Performing Organization Address City/State/[facility] Co de Phone Number [facility] [address] [place] [address] * (ABNORMAL) Basic Metabolic Panel, Plasma (09/23/2023 3:41 AM EDT) Glucose, Plasma 106(H) 74 - 99 mg/dL 09/23/2023 4:50 AM EDT [facility] BUN, Plasma 34(H) 8 - 23 mg/dL 09/23/2023 4:50 AM EDT [facility] Creatinine, Plasma 0.93 0.60 - 1.10 mg/dL 09/23/2023 4:50 AM EDT [facility] BUN/Creatinine Ratio 37 09/23/2023 4:50 AM EDT [facility] Sodium, Plasma 128(L) 136 - 145 mmol/L 09/23/2023 4:50 AM EDT [facility] Potassium, Plasma 5.3(H) 3.7 - 4.8 mmol/L 09/23/2023 4:50 AM EDT [facility] Chloride, Plasma 97 97 - 107 mmol/L 09/23/2023 4:50 AM EDT [facility] CO2, Plasma 24 22 - 29 mmol/L 09/23/2023 4:50 AM EDT [facility] Anion Gap 7 6 - 16 mmol/L 09/23/2023 4:50 AM EDT [facility] Total Calcium, Plasma 8.9 8.9 - 10.2 mg/dL 09/23/2023 4:50 AM EDT [facility] eGFRcr 60.0 mL/min/1.7 3m*2 09/23/2023 4:50 AM EDT [facility] Comment:Reported eGFRcr in m L/min/1.73m2 is based the CKD-EPI 2020 equation that does not use a race coefficient. Blood Venous blood specimen / Unknown Venipuncture / Unknown 09/23/2023 3:41 AM EDT 09/23/2023 4:04 AM EDT us Citlalli LEMON LAB BLOOD ORDERABLES Final Res ult [facility] [address] [place] [address] * (ABNORMAL) POCT glucose meter (09/22/2023 7:45 PM EDT) [facility] POCT Glucose 148(H) 74 - 99 mg/dL 09/22/2023 7:46 PM EDT [facility] Comment:Accuracy of a glucos e result obtained from a capillary whole blood specimen relies upon adequate, non-compromised capillary blood flow. If the capillary glucose result is not consistent with the patient's clinical signs and symptoms, glucose testing should be repeated with either an arterial or venous sample on the glucometer or sent to the main labortory for testing. Comment 09/22/2023 7:46 PM EDT [facility] Traffic Technician ID Lida Gonzalez 09/22/2023 7:46 PM EDT [facility] LAB Device ID [id number] 09/22/2023 7:46 PM EDT [facility] Specimen Type POC Capillary 09/22/2023 7:46 PM EDT [facility] Blood Capillary blood specimen / Unknown 09/22/2023 7:45 PM EDT 09/22/2023 7:46 PM EDT us Griffin Santiago MD LAB POINT OF CARE TEST DOCKED DEVICE UNSOLICITED RESULTS Final Result Performing Organization Address [facility] de Phone Number [facility] [address] [place] [address] * (ABNORMAL) POCT glucose meter (09/22/2023 4:52 PM EDT) [facility] POCT Glucose 134(H) 74 - 99 mg/dL 09/22/2023 4:53 PM EDT [facility] Comment:Accuracy of a glucos e result obtained from a capillary whole blood specimen relies upon adequate, non-compromised capillary blood flow. If the capillary glucose result is not consistent with the patient's clinical signs and symptoms, glucose testing should be repeated with either an arterial or venous sample on the glucometer or sent to the main labortory for testing. Comment 09/22/2023 4:53 PM EDT [facility] Traffic Technician ID Alma Real 09/22/19 4:53 PM EDT [facility] Device ID [id number] 09/22/2023 4:53 PM EDT [facility] Specimen Type POC Capillary 09/22/2023 4:53 PM EDT [facility] Blood Capillary blood specimen / Unknown 09/22/2023 4:52 PM EDT 09/22/2023 4:53 PM EDT Griffin Santiago MD LAB POINT OF CARE TEST DOCKED DEVICE UNSOLICITED RESULTS Final Result Performing Organization Address [facility] de Phone Number [facility] [address] [place] [address] * (ABNORMAL) POCT glucose meter (09/22/2023 11:39 AM EDT) [facility] POCT Glucose 139(H) 74 - 99 mg/dL 09/22/2023 11:41 AM EDT [facility] Comment:Accuracy of a glucos e result obtained from a capillary whole blood specimen relies upon adequate, non-compromised capillary blood flow. If the capillary glucose result is not consistent with the patient's clinical signs and symptoms, glucose testing should be repeated with either an arterial or venous sample on the glucometer or sent to the main labortory for testing. Comment 09/22/2023 11:41 AM EDT [facility] Traffic Technician ID Alma Real 09/22/19 11:41 AM EDT [facility] Device ID [id number] 09/22/2023 11:41 AM EDT [facility] Specimen Type POC Capillary 09/22/2023 11:41 AM EDT [facility] Blood Capillary blood specimen / Unknown 09/22/2023 11:39 AM EDT 09/22/2023 11:41 AM EDT us Griffin Santiago MD LAB POINT OF CARE TEST DOCKED DEVICE UNSOLICITED RESULTS Final Result [facility] [address] [place] [address] * (ABNORMAL) Basic metabolic panel (09/22/2023 10:15 AM EDT) Glucose, Plasma 146(H) 74 - 99 mg/dL 09/22/2023 10:48 AM EDT [facility] BUN, Plasma 32(H) 8 - 23 mg/dL 09/22/2023 10:48 AM EDT [facility] Creatinine, Plasma 0.93 0.60 - 1.10 mg/dL 09/22/2023 10:48 AM EDT [facility] BUN/Creatinine Ratio 34 09/22/2023 10:48 AM EDT [facility] Sodium, Plasma 126(L) 136 - 145 mmol/L 09/22/2023 10:48 AM EDT [facility] Potassium, Plasma 4.8 3.7 - 4.8 mmol/L 09/22/2023 10:48 AM EDT [facility] Chloride, Plasma 95(L) 97 - 107 mmol/L 09/22/2023 10:48 AM EDT [facility] CO2, Plasma 23 22 - 29 mmol/L 09/22/2023 10:48 AM EDT [facility] Anion Gap 8 6 - 16 mmol/L 09/22/2023 10:48 AM EDT [facility] Total Calcium, Plasma 8.8(L) 8.9 - 10.2 mg/dL 09/22/2023 10:48 AM EDT [facility] eGFRcr 60.0 mL/min/1.7 3m*2 09/22/2023 10:48 AM EDT [facility] Comment:Reported eGFRcr in m L/min/1.73m2 is based the CKD-EPI 2020 equation that does not use a race coefficient. Blood Venous blood specimen / Unknown Venipuncture / Unknown 09/22/2023 10:15 AM EDT 09/22/2023 10:23 AM EDT us Citl[facility]EMON LAB BLOOD ORDERABLES Final Res ult Performing Organization Address City/[facility]/ZIP Co de Phone Number [facility] [address] [place] [address] * (ABNORMAL) POCT glucose meter (09/22/2023 7:57 AM EDT) POCT Glucose 100(H) 74 - 99 mg/dL 09/22/2023 7:59 AM EDT [facility] Comment:Accuracy of a glucos e result obtained from a capillary whole blood specimen relies upon adequate, non-compromised capillary blood flow. If the capillary glucose result is not consistent with the patient's clinical signs and symptoms, glucose testing should be repeated with either an arterial or venous sample on the glucometer or sent to the main labortory for testing. Comment 09/22/2023 7:59 AM EDT [facility] Traffic Technician ID Alma Real 09/22/19 7:59 AM EDT [facility] Device ID [id number] 09/22/2023 7:59 AM EDT [facility] Specimen Type POC Capillary 09/22/2023 7:59 AM EDT [facility] Blood Capillary blood specimen / Unknown 09/22/2023 7:57 AM EDT 09/22/2023 7:59 AM EDT us Griffin Santiago MD LAB POINT OF CARE TEST DOCKED DEVICE UNSOLICITED RESULTS Final Result Performing Organization Address City/[facility] Co de Phone Number [facility] [address] [place] [address] * (ABNORMAL) Basic Metabolic Panel, Plasma (09/22/2023 3:13 AM EDT) Glucose, Plasma 114(H) 74 - 99 mg/dL 09/22/2023 4:13 AM EDT [facility] BUN, Plasma 34(H) 8 - 23 mg/dL 09/22/2023 4:13 AM EDT [facility] Creatinine, Plasma 1.01 0.60 - 1.10 mg/dL 09/22/2023 4:13 AM EDT [facility] BUN/Creatinine Ratio 34 09/22/2023 4:13 AM EDT [facility] Sodium, Plasma 124(L) 136 - 145 mmol/L 09/22/2023 4:13 AM EDT [facility] Potassium, Plasma 4.8 3.7 - 4.8 mmol/L 09/22/2023 4:13 AM EDT [facility] Chloride, Plasma 93(L) 97 - 107 mmol/L 09/22/2023 4:13 AM EDT [facility] CO2, Plasma 23 22 - 29 mmol/L 09/22/2023 4:13 AM EDT [facility] Anion Gap 8 6 - 16 mmol/L 09/22/2023 4:13 AM EDT [facility] Total Calcium, Plasma 8.6(L) 8.9 - 10.2 mg/dL 09/22/2023 4:13 AM EDT [facility] eGFRcr 54.3 mL/min/1.7 3m*2 09/22/2023 4:13 AM EDT [facility] Comment:Reported eGFRcr in m L/min/1.73m2 is based the CKD-EPI 2020 equation that does not use a race coefficient. Blood Venous blood specimen / Unknown Venipuncture / Unknown 09/22/2023 3:13 AM EDT 09/22/2023 3:40 AM EDT us [facility] LAB BLOOD ORDERABLES Final Res ult [facility] [address] [place] [address] * (ABNORMAL) CBC W/O Differential (09/22/2023 3:13 AM EDT) WBC Count 6.77 3.70 - 10.30 10*3/uL LAB HEMATOLOGY METHOD 09/22/2023 3:43 AM EDT [facility] RBC Count 2.81(L) 3.90 - 5.20 10*6/uL LAB HEMATOLOGY METHOD 09/22/2023 3:43 AM EDT [facility] HGB 7.8(L) 11.2 - 15.7 g/dL LAB HEMATOLOGY METHOD 09/22/2023 3:43 AM EDT [facility] HCT 23.1(L) 34.0 - 45.0 % LAB HEMATOLOGY METHOD 09/22/2023 3:43 AM EDT [facility] Platelet Count 240 155 - 369 10*3/uL LAB HEMATOLOGY METHOD 09/22/2023 3:43 AM EDT [facility] MCV 82 79 - 98 fL LAB HEMATOLOGY METHOD 09/22/2023 3:43 AM EDT [facility] MCH 27.8 26.0 - 32.0 pg LAB HEMATOLOGY METHOD 09/22/2023 3:43 AM EDT [facility] MCHC 33.8 30.7 - 35.5 g/dL LAB HEMATOLOGY METHOD 09/22/2023 3:43 AM EDT [facility] RDW 16.1(H) 11.5 - 14.5 % LAB HEMATOLOGY METHOD 09/22/2023 3:43 AM EDT [facility] MPV 9.4 8.8 - 12.5 fL LAB HEMATOLOGY METHOD 09/22/2023 3:43 AM EDT [facility] nRBC 0.0 <=0.0 per 100 WBCs LAB HEMATOLOGY METHOD 09/22/2023 3:43 AM EDT [facility] Blood Venous blood specimen / Unknown Venipuncture / Unknown 09/22/2023 3:13 AM EDT 09/22/2023 3:41 AM EDT us [facility] LAB BLOOD ORDERABLES Final Res ult [facility] [address] [place] [address] * (ABNORMAL) POCT glucose meter (09/21/2023 7:41 PM EDT) [facility] POCT Glucose 189(H) 74 - 99 mg/dL 09/21/2023 7:47 PM EDT [facility] Comment:Accuracy of a glucos e result obtained from a capillary whole blood specimen relies upon adequate, non-compromised capillary blood flow. If the capillary glucose result is not consistent with the patient's clinical signs and symptoms, glucose testing should be repeated with either an arterial or venous sample on the glucometer or sent to the main labortory for testing. Comment 09/21/2023 7:47 PM EDT [facility] Traffic Technician ID Consuelo Bone 09/21/2023 7:47 PM EDT [facility] Device ID [id number] 09/21/2023 7:47 PM EDT [facility] Specimen Type POC Capillary 09/21/2023 7:47 PM EDT [facility] Blood Capillary blood specimen / Unknown 09/21/2023 7:41 PM EDT 09/21/2023 7:47 PM EDT Griffin Santiago MD LAB POINT OF CARE TEST DOCKED DEVICE UNSOLICITED RESULTS Final Result [facility] [address] [place] [address] * (ABNORMAL) POCT glucose meter (09/21/2023 4:30 PM EDT) [facility] POCT Glucose 137(H) 74 - 99 mg/dL 09/21/2023 4:31 PM EDT [facility] Comment:Accuracy of a glucos e result obtained from a capillary whole blood specimen relies upon adequate, non-compromised capillary blood flow. If the capillary glucose result is not consistent with the patient's clinical signs and symptoms, glucose testing should be repeated with either an arterial or venous sample on the glucometer or sent to the main labortory for testing. Comment 09/21/2023 4:31 PM EDT [facility] Traffic Technician ID Germania Prajapati 09/21/2023 4:31 PM EDT [facility] Device ID [id number] 09/21/2023 4:31 PM EDT [facility] Specimen Type POC Capillary 09/21/2023 4:31 PM EDT [facility] Blood Capillary blood specimen / Unknown 09/21/2023 4:30 PM EDT 09/21/2023 4:31 PM EDT us Griffin Santiago MD LAB POINT OF CARE TEST DOCKED DEVICE UNSOLICITED RESULTS Final Result Performing Organization Address City/[facility] Co de Phone Number [facility] [address] [place] [address] * (ABNORMAL) Basic metabolic panel (09/21/2023 2:33 PM EDT) Glucose, Plasma 139(H) 74 - 99 mg/dL 09/21/2023 2:58 PM EDT [facility] BUN, Plasma 34(H) 8 - 23 mg/dL 09/21/2023 2:58 PM EDT [facility] Creatinine, Plasma 1.04 0.60 - 1.10 mg/dL 09/21/2023 2:58 PM EDT [facility] BUN/Creatinine Ratio 33 09/21/2023 2:58 PM EDT [facility] Sodium, Plasma 123(L) 136 - 145 mmol/L 09/21/2023 2:58 PM EDT [facility] Potassium, Plasma 4.9(H) 3.7 - 4.8 mmol/L 09/21/2023 2:58 PM EDT [facility] Chloride, Plasma 91(L) 97 - 107 mmol/L 09/21/2023 2:58 PM EDT [facility] CO2, Plasma 22 22 - 29 mmol/L 09/21/2023 2:58 PM EDT [facility] Anion Gap 10 6 - 16 mmol/L 09/21/2023 2:58 PM EDT [facility] Total Calcium, Plasma 8.6(L) 8.9 - 10.2 mg/dL 09/21/2023 2:58 PM EDT [facility] eGFRcr 52.5 mL/min/1.7 3m*2 09/21/2023 2:58 PM EDT [facility] Comment:Reported eGFRcr in m L/min/1.73m2 is based the CKD-EPI 2020 equation that does not use a race coefficient. Blood Venous blood specimen / Unknown Venipuncture / Unknown 09/21/2023 2:33 PM EDT 09/21/2023 2:36 PM EDT us Citlalli LEMON LAB BLOOD ORDERABLES Final Res ult Performing Organization Address City/[facility]/ZIP Co de Phone Number [facility] [address] [place] [address] * Transfuse RBC (09/21/2023 1:22 PM EDT) Karime Oviedo APRN BLOOD TRANSFUSION ORDERABLES Final Result * Transfuse RBC: 1 Units (09/21/2023 1:22 PM EDT) us Karime Oviedo APRN BLOOD TRANSFUSION ORDERABLES Final Result * (ABNORMAL) POCT glucose meter (09/21/2023 12:01 PM EDT) [facility] POCT Glucose 131(H) 74 - 99 mg/dL 09/21/2023 12:02 PM EDT [facility] Comment:Accuracy of a glucos e result obtained from a capillary whole blood specimen relies upon adequate, non-compromised capillary blood flow. If the capillary glucose result is not consistent with the patient's clinical signs and symptoms, glucose testing should be repeated with either an arterial or venous sample on the glucometer or sent to the main labortory for testing. Comment 09/21/2023 12:02 PM EDT [facility]ALTHCARE [facility] Traffic Technician ID Alma Real 09/21/19 12:02 PM EDT [facility]ALTH[facility]ARE LAB Device ID [id number] 09/21/2023 12:02 PM EDT [facility]ALTH[facility] Specimen Type POC Capillary 09/21/2023 12:02 PM EDT [facility] Blood Capillary blood specimen / Unknown 09/21/2023 12:01 PM EDT 09/21/2023 12:02 PM EDT Griffin Santiago MD LAB POINT OF CARE TEST DOCKED DEVICE UNSOLICITED RESULTS Final Result [facility] [address] [place] [address] * Osmolality, Urine (09/21/2023 11:40 AM EDT) [facility] Osmolality, Urine 346 50 - 1,200 mOsm/kg 09/21/2023 4:40 PM EDT [facility]ALTH[facility] Urine Urine specimen obtained by clean catch procedure / Unknown Non-blood Collection / Unknown 09/21/2023 11:40 AM EDT 09/21/2023 11:47 AM EDT Citlalli LEMON LAB URINE ORDERABLES Final Res ult Performing Organization Address [facility] de Phone Number [facility] [address] [place] [address] * Urinalysis Microscopic Examination (09/21/2023 11:40 AM EDT) Urine Urine specimen obtained by clean catch procedure / Unknown Non-blood Collection / Unknown 09/21/2023 11:40 AM EDT 09/21/2023 11:47 AM EDT Citlalli LEMON LAB URINE ORDERABLES Final Res ult Performing Organization Address [facility] de Phone Number [facility] [address] [place] [address] * Protein, Random, Urine with Creatinine (09/21/2023 11:40 AM EDT) Protein, Urine 7 mg/dL 09/21/2023 12:14 PM EDT [facility] Creatinine, Urine 48 mg/dL 09/21/2023 12:14 PM EDT [facility] Protein/Creati nine Ratio 0.1 mg/mg Creat 09/21/2023 12:14 PM EDT [facility] Urine Urine specimen obtained by clean catch procedure / Unknown Non-blood Collection / Unknown 09/21/2023 11:40 AM EDT 09/21/2023 11:47 AM EDT Citlalli LEMON LAB URINE ORDERABLES Final Res ult Performing Organization Address [facility] de Phone Number [facility] [address] [place] [address] * (ABNORMAL) Urinalysis with reflex microscopic (Culture NOT Included) (09/21/2023 11:40 AM EDT) Color, Urine Yellow LAB URINALYSIS - AUTOMATED METHOD 09/21/2023 12:10 PM EDT [facility] Clarity, Urine Clear LAB URINALYSIS - AUTOMATED METHOD 09/21/2023 12:10 PM EDT [facility] Spec [place], Urine 1.016 <=1.005 to >=1.030 LAB URINALYSIS - AUTOMATED METHOD 09/21/2023 12:10 PM EDT [facility] pH, Urine 5.5 4.5 to 8 LAB URINALYSIS - AUTOMATED METHOD 09/21/2023 12:10 PM EDT [facility] Protein, Urine Negative Negative mg/dL LAB URINALYSIS - AUTOMATED METHOD 09/21/2023 12:10 PM EDT [facility] Glucose, Urine Negative Negative mg/dL LAB URINALYSIS - AUTOMATED METHOD 09/21/2023 12:10 PM EDT [facility] Ketones, Urine Negative Negative mg/dL LAB URINALYSIS - AUTOMATED METHOD 09/21/2023 12:10 PM EDT [facility] Blood, Urine Negative Negative LAB URINALYSIS - AUTOMATED METHOD 09/21/2023 12:10 PM EDT [facility] Bilirubin, Urine Negative Negative LAB URINALYSIS - AUTOMATED METHOD 09/21/2023 12:10 PM EDT [facility] Urobilinogen, Urine 0.2 0.2 to 1.0 mg/dL LAB URINALYSIS - AUTOMATED METHOD 09/21/2023 12:10 PM EDT [facility] Leukocytes, Urine Trace(A) Negative LAB URINALYSIS - AUTOMATED METHOD 09/21/2023 12:10 PM EDT [facility] Nitrite, Urine Negative Negative LAB URINALYSIS - AUTOMATED METHOD 09/21/2023 12:10 PM EDT [facility] RBC, Urine <1 0 to 3 /HPF 09/21/2023 12:10 PM EDT [facility] Comment:This result was prev iously suppressed from the chart. WBC, Urine 0 - 5 0 to 5 /HPF 09/21/2023 12:10 PM EDT [facility] Comment:This result was prev iously suppressed from the chart. Squamous Epithelial Cells 3 - 5 0 to 5 /HPF 09/21/2023 12:10 PM EDT [facility] Comment:This result was prev iously suppressed from the chart. Hyaline Casts 0 - 2 0 to 5 /LPF 09/21/2023 12:10 PM EDT [facility] Comment:This result was prev iously suppressed from the chart. Bacteria, Urine Negative Negative 09/21/2023 12:10 PM EDT [facility] Comment:This result was prev iously suppressed from the chart. Urine Urine specimen obtained by clean catch procedure / Unknown Non-blood Collection / Unknown 09/21/2023 11:40 AM EDT 09/21/2023 11:47 AM EDT Narrative [facility]ALTHCARE LAB - 09/21/2023 12:10 PM EDT Performed by manual method Citlalli LEMON LAB URINE ORDERABLES Final Res ult Performing Organization Address City/[facility] Co de Phone Number [facility] [address] [place] [address] * Urea Nitrogen, Random Urine (09/21/2023 11:40 AM EDT) Urea Nitrogen, Urine 575 mg/dL 09/21/2023 1:24 PM EDT [facility] Urine Urine specimen obtained by clean catch procedure / Unknown Non-blood Collection / Unknown 09/21/2023 11:40 AM EDT 09/21/2023 11:46 AM EDT Citlalli LEMON LAB URINE ORDERABLES Final Res ult Performing Organization Address [facility] Co de Phone Number [facility] [address] [place] [address] * Sodium, urine, random (09/21/2023 11:40 AM EDT) Sodium, Urine 31 mmol/L 09/21/2023 12:14 PM EDT [facility] Urine Urine specimen obtained by clean catch procedure / Unknown Non-blood Collection / Unknown 09/21/2023 11:40 AM EDT 09/21/2023 11:47 AM EDT Karan Montaño APRN LAB URINE ORDERABLES Final Result Performing Organization Address City/[facility] Co de Phone Number [facility] [address] [place] [address] * Osmolality, urine (09/21/2023 11:40 AM EDT) Osmolality, Urine 346 50 - 1,200 mOsm/kg 09/21/2023 1:32 PM EDT [facility] Urine Urine specimen obtained by clean catch procedure / Unknown Non-blood Collection / Unknown 09/21/2023 11:40 AM EDT 09/21/2023 11:46 AM EDT Karan Montaño APRN LAB URINE ORDERABLES Final Result Performing Organization Address [facility] de Phone Number [facility] [address] [place] [address] * (ABNORMAL) POCT glucose meter (09/21/2023 8:06 AM EDT) [facility] POCT Glucose 137(H) 74 - 99 mg/dL 09/21/2023 8:08 AM EDT [facility] Comment:Accuracy of a glucos e result obtained from a capillary whole blood specimen relies upon adequate, non-compromised capillary blood flow. If the capillary glucose result is not consistent with the patient's clinical signs and symptoms, glucose testing should be repeated with either an arterial or venous sample on the glucometer or sent to the main labortory for testing. Comment 09/21/2023 8:08 AM EDT [facility]ALTH[facility] LAB Traffic Technician ID Alma Real 09/21/19 8:08 AM EDT [facility]ALTH[facility]ARE LAB Device ID [id number] 09/21/2023 8:08 AM EDT [facility] Specimen Type POC Capillary 09/21/2023 8:08 AM EDT [facility] Blood Capillary blood specimen / Unknown 09/21/2023 8:06 AM EDT 09/21/2023 8:08 AM EDT Griffin Santiago MD LAB POINT OF CARE TEST DOCKED DEVICE UNSOLICITED RESULTS Final Result Performing Organization Address City/[facility] Co de Phone Number [facility] [address] [place] [address] * Prepare Leukocyte Reduced RBC: 1 Units (09/21/2023 6:10 AM EDT) Pathologist [facility] Product Code [id number] GS BLOO D BANK Dispense Status Transfused BLOOD BANK Blood Expiration Date [id number] BLOOD BANK Unit Number [id number] B LOOD BANK Product Blood Type 7300 BLOOD BANK Blood Type B+ BLOOD BANK Crossmatch Compatible BLOOD BANK Other Karime Oviedo MINE PROMOTOR BLOOD BANK PRODUCT ORDERABLES Final Result Performing Organization Address City/[facility]/ZIP Co de Phone Number BLOOD BANK [address] [place] [address], * Magnesium, Plasma (09/21/2023 2:43 AM EDT) Magnesium, Plasma 1.9 1.9 - 2.4 mg/dL 09/21/2023 3:10 AM EDT [facility] Blood Venous blood specimen / Unknown Venipuncture / Unknown 09/21/2023 2:43 AM EDT 09/21/2023 2:47 AM EDT Citlalli Mcmahon PA LAB BLOOD ORDERABLES Final Res ult Performing Organization Address City/[facility]/ZIP Co de Phone Number [facility] [address] [place] [address] * (ABNORMAL) Basic Metabolic Panel, Plasma (09/21/2023 2:43 AM EDT) Glucose, Plasma 121(H) 74 - 99 mg/dL 09/21/2023 3:10 AM EDT [facility] BUN, Plasma 31(H) 8 - 23 mg/dL 09/21/2023 3:10 AM EDT [facility]ALTH[facility] Creatinine, Plasma 1.23(H) 0.60 - 1.10 mg/dL 09/21/2023 3:10 AM EDT [facility] BUN/Creatinine Ratio 25 09/21/2023 3:10 AM EDT [facility] Sodium, Plasma 125(L) 136 - 145 mmol/L 09/21/2023 3:10 AM EDT [facility] Potassium, Plasma 5.2(H) 3.7 - 4.8 mmol/L 09/21/2023 3:10 AM EDT [facility] Chloride, Plasma 93(L) 97 - 107 mmol/L 09/21/2023 3:10 AM EDT [facility]ALTH[facility] CO2, Plasma 23 22 - 29 mmol/L 09/21/2023 3:10 AM EDT [facility] Anion Gap 9 6 - 16 mmol/L 09/21/2023 3:10 AM EDT [facility] Total Calcium, Plasma 8.6(L) 8.9 - 10.2 mg/dL 09/21/2023 3:10 AM EDT [facility] eGFRcr 42.9 mL/min/1.7 3m*2 09/21/2023 3:10 AM EDT [facility]ALTH[facility] Comment:Reported eGFRcr in m L/min/1.73m2 is based the CKD-EPI 2020 equation that does not use a race coefficient. Blood Venous blood specimen / Unknown Venipuncture / Unknown 09/21/2023 2:43 AM EDT 09/21/2023 2:47 AM EDT Citlalli LEMON LAB BLOOD ORDERABLES Final Res ult Performing Organization Address City/State/[facility] Co de Phone Number [facility] [address] [place] [address] * (ABNORMAL) CBC W/O Differential (09/21/2023 2:43 AM EDT) [facility] Signature WBC Count 7.20 3.70 - 10.30 10*3/uL LAB HEMATOLOGY METHOD 09/21/2023 2:49 AM EDT [facility] RBC Count 2.63(L) 3.90 - 5.20 10*6/uL LAB HEMATOLOGY METHOD 09/21/2023 2:49 AM EDT [facility] HGB 7.0(L) 11.2 - 15.7 g/dL LAB HEMATOLOGY METHOD 09/21/2023 2:49 AM EDT [facility] HCT 21.5(L) 34.0 - 45.0 % LAB HEMATOLOGY METHOD 09/21/2023 2:49 AM EDT [facility] Platelet Count 262 155 - 369 10*3/uL LAB HEMATOLOGY METHOD 09/21/2023 2:49 AM EDT [facility] MCV 82 79 - 98 fL LAB HEMATOLOGY METHOD 09/21/2023 2:49 AM EDT [facility] MCH 26.6 26.0 - 32.0 pg LAB HEMATOLOGY METHOD 09/21/2023 2:49 AM EDT [facility] MCHC 32.6 30.7 - 35.5 g/dL LAB HEMATOLOGY METHOD 09/21/2023 2:49 AM EDT [facility] RDW 16.0(H) 11.5 - 14.5 % LAB HEMATOLOGY METHOD 09/21/2023 2:49 AM EDT [facility] MPV 9.4 8.8 - 12.5 fL LAB HEMATOLOGY METHOD 09/21/2023 2:49 AM EDT [facility] nRBC 0.0 <=0.0 per 100 WBCs LAB HEMATOLOGY METHOD 09/21/2023 2:49 AM EDT [facility] Blood Venous blood specimen / Unknown Venipuncture / Unknown 09/21/2023 2:43 AM EDT 09/21/2023 2:47 AM EDT us Karime Oviedo APRN LAB BLOOD ORDERABLES Final Re sult [facility] [address] [place] [address] * (ABNORMAL) POCT glucose meter (09/20/2023 8:05 PM EDT) [facility] POCT Glucose 214(H) 74 - 99 mg/dL 09/20/2023 8:06 PM EDT [facility] Comment:Accuracy of a glucos e result obtained from a capillary whole blood specimen relies upon adequate, non-compromised capillary blood flow. If the capillary glucose result is not consistent with the patient's clinical signs and symptoms, glucose testing should be repeated with either an arterial or venous sample on the glucometer or sent to the main labortory for testing. Comment 09/20/2023 8:06 PM EDT [facility]ALTH[facility]ARE LAB Traffic Technician ID Nina Maravilla 8:06 PM EDT [facility] Device ID [id number] 09/20/2023 8:06 PM EDT [facility] Specimen Type POC Capillary 09/20/2023 8:06 PM EDT [facility] Blood Capillary blood specimen / Unknown 09/20/2023 8:05 PM EDT 09/20/2023 8:06 PM EDT us Griffin Santiago MD LAB POINT OF CARE TEST DOCKED DEVICE UNSOLICITED RESULTS Final Result Performing Organization Address City/[facility] de Phone Number [facility] [address] [place] [address] * (ABNORMAL) POCT glucose meter (09/20/2023 4:35 PM EDT) [facility] POCT Glucose 137(H) 74 - 99 mg/dL 09/20/2023 4:37 PM EDT [facility] Comment:Accuracy of a glucos e result obtained from a capillary whole blood specimen relies upon adequate, non-compromised capillary blood flow. If the capillary glucose result is not consistent with the patient's clinical signs and symptoms, glucose testing should be repeated with either an arterial or venous sample on the glucometer or sent to the main labortory for testing. Comment 09/20/2023 4:37 PM EDT [facility]ALTH[facility] LAB Traffic Technician ID ChandniLadan [email or web address] 09/20/19 4:37 PM EDT [facility] Device ID [id number] 09/20/2023 4:37 PM EDT [facility] Specimen Type POC Capillary 09/20/2023 4:37 PM EDT [facility] Blood Capillary blood specimen / Unknown 09/20/2023 4:35 PM EDT 09/20/2023 4:37 PM EDT Griffin Santiago MD LAB POINT OF CARE TEST DOCKED DEVICE UNSOLICITED RESULTS Final Result Performing Organization Address [facility] de Phone Number [facility] [address] [place] [address] * (ABNORMAL) POCT glucose meter (09/20/2023 11:32 AM EDT) [facility] POCT Glucose 164(H) 74 - 99 mg/dL 09/20/2023 11:34 AM EDT [facility] Comment:Accuracy of a glucos e result obtained from a capillary whole blood specimen relies upon adequate, non-compromised capillary blood flow. If the capillary glucose result is not consistent with the patient's clinical signs and symptoms, glucose testing should be repeated with either an arterial or venous sample on the glucometer or sent to the main labortory for testing. Comment 09/20/2023 11:34 AM EDT [facility] Traffic Technician ID Ladan Realfany 09/20/19 11:34 AM EDT [facility]ALTH[facility] LAB Device ID [id number] 09/20/2023 11:34 AM EDT [facility] Specimen Type POC Capillary 09/20/2023 11:34 AM EDT [facility] Blood Capillary blood specimen / Unknown 09/20/2023 11:32 AM EDT 09/20/2023 11:34 AM EDT us Griffin Santiago MD LAB POINT OF CARE TEST DOCKED DEVICE UNSOLICITED RESULTS Final Result [facility] [address] [place] [address] * Lavender Top (09/20/2023 10:13 AM EDT) Extra Hold for add-ons 09/20/2023 1:01 PM EDT [facility] LAB Comment:Auto resulted. Blood Venous blood specimen / Unknown 09/20/2023 10:13 AM EDT 09/20/2023 10:23 AM EDT us Griffin Santiago MD LAB BLOOD ORDERABLES Marielle l Result Performing Organization Address City/[facility]/ZIP Co de Phone Number [facility] [address] [place] [address] * Type and screen (09/20/2023 10:13 AM EDT) ABO/Rh B Positive 09/20/2023 9:32 AM EDT BLOOD BANK Antibody Screen Negative 09/20/2023 9:32 AM EDT BLOOD BANK Specimen Expiration 09/23/2023 23:59 09/20/2023 9:32 AM EDT BLOOD BANK Blood Venous blood specimen / Unknown Venipuncture / Unknown 09/20/2023 10:13 AM EDT 09/20/2023 10:20 AM EDT us Karime Oviedo APRN LAB BLOOD BANK TEST ORDERABLE S Final Result BLOOD BANK [address] * (ABNORMAL) Basic metabolic panel (09/20/2023 9:22 AM EDT) Glucose, Plasma 135(H) 74 - 99 mg/dL 09/20/2023 9:59 AM EDT [facility] BUN, Plasma 26(H) 8 - 23 mg/dL 09/20/2023 9:59 AM EDT [facility] Creatinine, Plasma 1.27(H) 0.60 - 1.10 mg/dL 09/20/2023 9:59 AM EDT [facility] BUN/Creatinine Ratio 20 09/20/2023 9:59 AM EDT [facility] Sodium, Plasma 126(L) 136 - 145 mmol/L 09/20/2023 9:59 AM EDT [facility] Potassium, Plasma 5.2(H) 3.7 - 4.8 mmol/L 09/20/2023 9:59 AM EDT [facility] Chloride, Plasma 94(L) 97 - 107 mmol/L 09/20/2023 9:59 AM EDT [facility] CO2, Plasma 23 22 - 29 mmol/L 09/20/2023 9:59 AM EDT [facility] Anion Gap 9 6 - 16 mmol/L 09/20/2023 9:59 AM EDT [facility] Total Calcium, Plasma 8.9 8.9 - 10.2 mg/dL 09/20/2023 9:59 AM EDT [facility] eGFRcr 41.3 mL/min/1.7 3m*2 09/20/2023 9:59 AM EDT [facility] Comment:Reported eGFRcr in m L/min/1.73m2 is based the CKD-EPI 2020 equation that does not use a race coefficient. Blood Venous blood specimen / Unknown Venipuncture / Unknown 09/20/2023 9:22 AM EDT 09/20/2023 9:32 AM EDT us Karime Oviedo APRN LAB BLOOD ORDERABLES Final Re sult [facility] [address] [place] [address] * Prepare Leukocyte Reduced RBC: 1 Units (09/20/2023 8:42 AM EDT) [facility] Product Code [id number] BLOO D BANK Dispense Status Transfused BLOOD BANK Blood Expiration Date [id number] BLOOD BANK Unit Number [id number] GS B LOOD BANK Product Blood Type 7300 BLOOD BANK Blood Type B+ BLOOD BANK Crossmatch Compatible BLOOD BANK Other us Karime Oviedo APRN BLOOD BANK PRODUCT ORDERABLES Final Result BLOOD BANK [address] [place] [address], * (ABNORMAL) POCT glucose meter (09/20/2023 8:04 AM EDT) [facility] POCT Glucose 133(H) 74 - 99 mg/dL 09/20/2023 8:05 AM EDT [facility] Comment:Accuracy of a glucos e result obtained from a capillary whole blood specimen relies upon adequate, non-compromised capillary blood flow. If the capillary glucose result is not consistent with the patient's clinical signs and symptoms, glucose testing should be repeated with either an arterial or venous sample on the glucometer or sent to the main labortory for testing. Comment 09/20/2023 8:05 AM EDT HEALTHCARE LAB Traffic Technician ID Alma Real 09/20/19 24 8:05 AM EDT [facility]ALTH[facility]ARE LAB Device ID [id number] 09/20/2023 8:05 AM EDT [facility] Specimen Type POC Capillary 09/20/2023 8:05 AM EDT [facility] Blood Capillary blood specimen / Unknown 09/20/2023 8:04 AM EDT 09/20/2023 8:05 AM EDT Griffin Santiago MD LAB POINT OF CARE TEST DOCKED DEVICE UNSOLICITED RESULTS Final Result [facility] [address] [place] [address] * (ABNORMAL) Osmolality (09/20/2023 4:49 AM EDT) [facility] Osmolality, Serum 274(L) 280 - 301 mOsm/Kg 09/20/2023 8:39 AM EDT [facility] Blood Venous blood specimen / Unknown Venipuncture / Unknown 09/20/2023 4:49 AM EDT 09/20/2023 4:55 AM EDT Karan Montaño MINE PROMOTOR LAB BLOOD ORDERABLES Final Result [facility] [address] [place], [place] [id number] * (ABNORMAL) Basic metabolic panel (09/20/2023 4:49 AM EDT) Pathologist [facility] Glucose, Plasma 152(H) 74 - 99 mg/dL 09/20/2023 5:14 AM EDT [facility] BUN, Plasma 24(H) 8 - 23 mg/dL 09/20/2023 5:14 AM EDT [facility] Creatinine, Plasma 1.29(H) 0.60 - 1.10 mg/dL 09/20/2023 5:14 AM EDT [facility] BUN/Creatinine Ratio 19 09/20/2023 5:14 AM EDT [facility] Sodium, Plasma 127(L) 136 - 145 mmol/L 09/20/2023 5:14 AM EDT [facility] Potassium, Plasma 5.1(H) 3.7 - 4.8 mmol/L 09/20/2023 5:14 AM EDT [facility] Chloride, Plasma 93(L) 97 - 107 mmol/L 09/20/2023 5:14 AM EDT [facility] CO2, Plasma 24 22 - 29 mmol/L 09/20/2023 5:14 AM EDT [facility] Anion Gap 10 6 - 16 mmol/L 09/20/2023 5:14 AM EDT [facility] Total Calcium, Plasma 8.5(L) 8.9 - 10.2 mg/dL 09/20/2023 5:14 AM EDT [facility] eGFRcr 40.5 mL/min/1.7 3m*2 09/20/2023 5:14 AM EDT [facility] Comment:Reported eGFRcr in m L/min/1.73m2 is based the CKD-EPI 2020 equation that does not use a race coefficient. Blood Venous blood specimen / Unknown Venipuncture / Unknown 09/20/2023 4:49 AM EDT 09/20/2023 4:55 AM EDT Karime Oviedo MINE PROMOTOR LAB BLOOD ORDERABLES Final Re sult [facility] [address] [place] [address] * (ABNORMAL) CBC (09/20/2023 4:49 AM EDT) [facility] WBC Count 8.06 3.70 - 10.30 10*3/uL LAB HEMATOLOGY METHOD 09/20/2023 4:57 AM EDT [facility] RBC Count 2.57(L) 3.90 - 5.20 10*6/uL LAB HEMATOLOGY METHOD 09/20/2023 4:57 AM EDT [facility] HGB 7.0(L) 11.2 - 15.7 g/dL LAB HEMATOLOGY METHOD 09/20/2023 4:57 AM EDT [facility] HCT 20.9(L) 34.0 - 45.0 % LAB HEMATOLOGY METHOD 09/20/2023 4:57 AM EDT [facility] Platelet Count 323 155 - 369 10*3/uL LAB HEMATOLOGY METHOD 09/20/2023 4:57 AM EDT [facility] MCV 81 79 - 98 fL LAB HEMATOLOGY METHOD 09/20/2023 4:57 AM EDT [facility] MCH 27.2 26.0 - 32.0 pg LAB HEMATOLOGY METHOD 09/20/2023 4:57 AM EDT [facility] MCHC 33.5 30.7 - 35.5 g/dL LAB HEMATOLOGY METHOD 09/20/2023 4:57 AM EDT [facility] RDW 16.5(H) 11.5 - 14.5 % LAB HEMATOLOGY METHOD 09/20/2023 4:57 AM EDT [facility] MPV 9.1 8.8 - 12.5 fL LAB HEMATOLOGY METHOD 09/20/2023 4:57 AM EDT [facility] nRBC 0.0 <=0.0 per 100 WBCs LAB HEMATOLOGY METHOD 09/20/2023 4:57 AM EDT [facility] Blood Venous blood specimen / Unknown Venipuncture / Unknown 09/20/2023 4:49 AM EDT 09/20/2023 4:55 AM EDT us Karime Oviedo APRN LAB BLOOD ORDERABLES Final Re sult Performing Organization Address [facility] Co de Phone Number [facility] [address] [place] [address] * (ABNORMAL) POCT glucose meter (09/20/2023 3:34 AM EDT) [facility] POCT Glucose 159(H) 74 - 99 mg/dL 09/20/2023 3:36 AM EDT [facility] Comment:Accuracy of a glucos e result obtained from a capillary whole blood specimen relies upon adequate, non-compromised capillary blood flow. If the capillary glucose result is not consistent with the patient's clinical signs and symptoms, glucose testing should be repeated with either an arterial or venous sample on the glucometer or sent to the main labortory for testing. Comment 09/20/2023 3:36 AM EDT [facility] Traffic Technician ID Chema Wynn 09/20/2023 3:36 AM EDT [facility] Device ID [id number] 09/20/2023 3:36 AM EDT [facility] Specimen Type POC Capillary 09/20/2023 3:36 AM EDT [facility] Blood Capillary blood specimen / Unknown 09/20/2023 3:34 AM EDT 09/20/2023 3:36 AM EDT Griffin Santiago MD LAB POINT OF CARE TEST DOCKED DEVICE UNSOLICITED RESULTS Final Result Performing Organization Address City/[facility] Co de Phone Number HEALTHCARE [facility] [address] [place] [address] * (ABNORMAL) POCT glucose meter (09/19/2023 9:24 PM EDT) [facility] POCT Glucose 312(H) 74 - 99 mg/dL 09/19/2023 9:25 PM EDT [facility] Comment:Accuracy of a glucos e result obtained from a capillary whole blood specimen relies upon adequate, non-compromised capillary blood flow. If the capillary glucose result is not consistent with the patient's clinical signs and symptoms, glucose testing should be repeated with either an arterial or venous sample on the glucometer or sent to the main labortory for testing. Comment 09/19/2023 9:25 PM EDT [facility] Traffic Technician ID Chema Wynn 09/19/2023 9:25 PM EDT [facility] Device ID [id number] 09/19/2023 9:25 PM EDT [facility] Specimen Type POC Capillary 09/19/2023 9:25 PM EDT [facility] Blood Capillary blood specimen / Unknown 09/19/2023 9:24 PM EDT 09/19/2023 9:25 PM EDT Griffin Santiago MD LAB POINT OF CARE TEST DOCKED DEVICE UNSOLICITED RESULTS Final Result Performing Organization Address City/State/[facility] Co de Phone Number [facility] [address] [place] [address] * (ABNORMAL) POCT glucose meter (09/19/2023 7:43 PM EDT) [facility] POCT Glucose 277(H) 74 - 99 mg/dL 09/19/2023 7:45 PM EDT [facility] Comment:Accuracy of a glucos e result obtained from a capillary whole blood specimen relies upon adequate, non-compromised capillary blood flow. If the capillary glucose result is not consistent with the patient's clinical signs and symptoms, glucose testing should be repeated with either an arterial or venous sample on the glucometer or sent to the main labortory for testing. Comment 09/19/2023 7:45 PM EDT [facility] Traffic Technician ID Patrick Kim 09/19/19 7:45 PM EDT [facility] Device ID [id number] 09/19/2023 7:45 PM EDT [facility] Specimen Type POC Capillary 09/19/2023 7:45 PM EDT [facility] Blood Capillary blood specimen / Unknown 09/19/2023 7:43 PM EDT 09/19/2023 7:45 PM EDT us Griffin Santiago MD LAB POINT OF CARE TEST DOCKED DEVICE UNSOLICITED RESULTS Final Result Performing Organization Address [facility] de Phone Number [facility] [address] [place] [address] * (ABNORMAL) POCT glucose meter (09/19/2023 5:05 PM EDT) POCT Glucose 172(H) 74 - 99 mg/dL 09/19/2023 5:07 PM EDT [facility] Comment:Accuracy of a glucos e result obtained from a capillary whole blood specimen relies upon adequate, non-compromised capillary blood flow. If the capillary glucose result is not consistent with the patient's clinical signs and symptoms, glucose testing should be repeated with either an arterial or venous sample on the glucometer or sent to the main labortory for testing. Comment 09/19/2023 5:07 PM EDT [facility] Traffic Technician ID Mili Ardon 09/19/2023 5:07 PM EDT [facility] Device ID [id number] 09/19/2023 5:07 PM EDT [facility] Specimen Type POC Capillary 09/19/2023 5:07 PM EDT [facility] Blood Capillary blood specimen / Unknown 09/19/2023 5:05 PM EDT 09/19/2023 5:07 PM EDT Griffin Santiago MD LAB POINT OF CARE TEST DOCKED DEVICE UNSOLICITED RESULTS Final Result Performing Organization Address [facility] de Phone Number [facility] [address] [place] [address] * XR Hip Left 2 or 3 Views (09/19/2023 1:04 PM EDT) Anatomical Region Laterality Modality Lower Extremities, Hip Left Digital R adiography Impressions 09/19/2023 1:31 PM EDT Expected recent postsurgical changes from left total hip arthroplasty. CRITICAL RESULT: ?? No. COMMUNICATION: Per this written report. Drafted by Minh Rod MD on 09/19/2023 1:31 PM Final report signed by Minh Rod MD on 09/19/2023 1:31 PM Narrative 09/19/2023 1:31 PM EDT CLINICAL INDICATION: TOTAL LEFT HIP REPLACEMENT TECHNIQUE: XR HIP LEFT 2 OR 3 VIEWS COMPARISON: 08/14/2023 FINDINGS: Left total hip arthroplasty is seen, new compared to prior. Single cerclage wire seen about the proximal femur. Soft tissue swelling and gas is seen about the left hip with skin altagracia in place. Overlying soft tissue, stool, and bowel gas obscures bone detail. Procedure Note Minh Rod MD - 09/19/2023 CLINICAL INDICATION: TOTAL LEFT HIP REPLACEMENT TECHNIQUE: XR HIP LEFT 2 OR 3 VIEWS COMPARISON: 08/14/2023 FINDINGS: Left total hip arthroplasty is seen, new compared to prior. Singlecerclage wire seen about the proximal femur. Soft tissue swelling and gasis seen about the left hip with skin altagracia in place. Overlying softtissue, stool, and bowel gas obscures bone detail. IMPRESSION: Expected recent postsurgical changes from left total hip arthroplasty. CRITICAL RESULT: No. COMMUNICATION: Per this written report. Drafted by Minh Rod MD on 09/19/2023 1:31 PM Final report signed by Minh Rod MD on 09/19/2023 1:31 PM us Karime Oviedo MINE PROM[employer]OR IMG XR PROCEDURES Final Resul t * Surgical Pathology Exam (09/19/2023 11:36 AM EDT) Case Report Surgical Pathology ?Case: [id number] ? Authorizing Provider: ??Griffin Santiago MD ?? Collected: ? 09/19/2023 1136 ? Ordering Location: ? [facility] Operating [facility] ? Received: ?09/19/2023 1241 ? Pathologist: ? Erin Sykes MD ? Specimen: ?Hip, Left, left femoral head ? 09/20/2023 8:16 AM EDT [facility] Final Diagnosis LEFT FEMORAL HEAD: GROSS DIAGNOSIS ONLY. 09/20/2023 8:16 AM EDT [facility] Clinical Information Hip pain, left [M25.552] 09/20/2023 8:16 AM EDT [facility] Gross Description A. LEFT FEMORAL HEAD Received in formalin labeled ? left femoral head? , is 1 collapsed femoral head measuring 4 cm in diameter. The articular surface is del toro/red and roughened with slight eburnation and osteophyte formation. Sectioning reveals a moderately hemorrhagic, yellow, porous cut surface. Gross photographs are taken and the specimen is submitted for gross examination only. Mich Guzman 09/20/2023 8:16 AM EDT [facility] Bone Left hip region structure / Unknown 09/19/2023 11:36 AM EDT 09/19/2023 12:41 PM EDT Comment:Pre-op diagnosis: Hip pain, left [M25.552] us Griffin Santiago MD LAB PATHOLOGY ORDERABLES Final Result [facility] [address] [place] [address] * POCT glucose meter (09/19/2023 9:22 AM EDT) POCT Glucose 89 74 - 99 mg/dL 09/19/2023 9:24 AM EDT [facility] Comment:Accuracy of a glucos e result obtained from a capillary whole blood specimen relies upon adequate, non-compromised capillary blood flow. If the capillary glucose result is not consistent with the patient's clinical signs and symptoms, glucose testing should be repeated with either an arterial or venous sample on the glucometer or sent to the main labortory for testing. Comment 09/19/2023 9:24 AM EDT [facility] Traffic Technician ID Kylee Treviño 9:24 AM EDT [facility] Device ID [id number] 09/19/2023 9:24 AM EDT [facility] Specimen Type POC Capillary 09/19/2023 9:24 AM EDT [facility] Blood Capillary blood specimen / Unknown 09/19/2023 9:22 AM EDT 09/19/2023 9:24 AM EDT us Griffin Santiago MD LAB POINT OF CARE TEST DOCKED DEVICE UNSOLICITED RESULTS Final Result Performing Organization Address City/State/[facility] de Phone Number [facility] [address] [place] [address] documented in this encounter Visit Diagnoses Diagnosis Hip pain, left- Primary Pain in joint, pelvic region and thigh documented in this encounter Admitting Diagnoses Diagnosis Hip pain, left Pain in joint, pelvic region and thigh documented in this encounter Administered Medications Inactive Administered Medications - up to 3 most recent administrations Medication Order MAR Action Action Date Dose Rate Site acetaminophen (Tylenol) tablet 500 mg 500 mg, Oral, Every 6 hours scheduled, First dose on Sun09/19/23 at 1445, Until Discontinued, Routine, Recovery(Phase II-Outpatient)/On Unit(Inpatient) Given 09/25/2023 11:46 AM EDT 500 mg Given 09/25/2023 5:14 AM EDT 500 mg Given 09/24/2023 11:13 PM EDT 500 mg alendronate (Fosamax) tablet 70 mg *Patient Own Supply Medication* 70 mg, Oral, Weekly, First dose on Sun09/23/23 at 0930, Until Discontinued, Routine Given 09/23/2023 9:19 AM EDT 70 mg aspirin chewable tablet 81 mg 81 mg, Oral, 2 times daily, First dose on Sun09/20/23 at 0900, Until Discontinued, Routine, Recovery(Phase II-Outpatient)/On Unit(Inpatient) Given 09/25/2023 8:40 AM EDT 81 mg Given 09/24/2023 8:08 PM EDT 81 mg Given 09/24/2023 8:24 AM EDT 81 mg bisacodyl (Dulcolax) suppository 10 mg 10 mg, Rectal, 2 times daily PRN, Starting on Sun09/19/23 at 1427, Until Sun09/25/23 at 1703, Routine, Recovery(Phase II-Outpatient)/On Unit(Inpatient), constipation, for constipation - use if no bowel movement after giving magnesium hydroxide calcium-vitamin D 500-200 MG-UNIT per tablet 1 tablet 1 tablet, Oral, 2 times daily with meals, First dose on Sun09/19/23 at 2100, Until Discontinued, Routine, Recovery(Phase II-Outpatient)/On Unit(Inpatient) Given 09/25/2023 8:40 AM EDT 1 tablet Given 09/24/2023 5:29 PM EDT 1 tablet Given 09/24/2023 8:24 AM EDT 1 tablet ceFAZolin (Ancef) injection 2 g 2 g, Intravenous, Every 8 hours, 3 doses, First dose on Sun09/19/23 at 2000, Last dose on Sun09/20/23 at 1200, Routine, Recovery(Phase II-Outpatient)/On Unit(Inpatient) Given 09/20/2023 11:09 AM EDT 2 g Given 09/20/2023 3:35 AM EDT 2 g Given 09/19/2023 8:48 PM EDT 2 g dexamethasone (Decadron) injection 8 mg 8 mg, Intravenous, Once, 1 dose, On Sun09/19/23 at 0830, Routine, Holding - Preprocedure Given 09/19/2023 10:48 AM EDT 8 mg dextrose 10 % (D10W) bolus 125 mL 125 mL (12.5 g), Intravenous, Every 15 min PRN, Starting on Sun09/19/23 at 1656, Until Sun09/25/23 at 1703, Administer over 15 Minutes, Routine, POC BG 71 to 89 mg/dL dextrose 10 % (D10W) bolus 125 mL 125 mL (12.5 g), Intravenous, Every 15 min PRN, Starting on Sun09/19/23 at 1656, Until Sun09/25/23 at 1703, Administer over 15 Minutes, Routine, POC BG 51 to 70 mg/dL dextrose 10 % (D10W) bolus 250 mL 250 mL (25 g), Intravenous, Every 15 min PRN, Starting on Sun09/19/23 at 1656, Until Sun09/25/23 at 1703, Administer over 15 Minutes, Routine, POC BG is less than or equal to 50 mg/dL diphenhydrAMINE (Benadryl) tablet 12.5 mg 12.5 mg, Oral, Every 4 hours PRN, Starting on Sun09/19/23 at 1427, Until Sun09/25/23 at 1703, Routine, Recovery(Phase II-Outpatient)/On Unit(Inpatient), itching, sleep gabapentin (Neurontin) capsule 300 mg 300 mg, Oral, Once, 1 dose, On Sun09/19/23 at 0830, Routine, Holding - Preprocedure Given 09/19/2023 10:42 AM EDT 300 mg glucagon (human recombinant) injection 1 mg 1 mg, Intramuscular, Every 15 min PRN, Starting on Sun09/19/23 at 1656, Until Sun09/25/23 at 1703, Routine, If patient NPO, lacks IV access, May Give IM and POC BG less than or equal to 70 mg/dL, glucose (Glutose) 40 % oral gel 15 grams of glucose 15 grams of glucose, Sublingual, Every 15 min PRN, Starting on Sun09/19/23 at 1656, Until Sun09/25/23 at 1703, Routine, low blood sugar, POC BG 71 to 89 mg/dL glucose (Glutose) 40 % oral gel 15 grams of glucose 15 grams of glucose, Sublingual, Every 15 min PRN, Starting on Sun09/19/23 at 1656, Until Sun09/25/23 at 1703, Routine, low blood sugar, BG 51?to 70 mg/dL glucose (Glutose) 40 % oral gel 30 grams of glucose 30 grams of glucose, Sublingual, Every 15 min PRN, Starting on Sun09/19/23 at 1656, Until Sun09/25/23 at 1703, Routine, low blood sugar, POC BG is less than or equal to 50 mg/dL HYDROcodone-acetaminophen (Mesa) 5-325 MG per tablet 5 mg of hydrocodone 5 mg of hydrocodone, Oral, Every 4 hours PRN, Starting on Sun09/19/23 at 1427, Until Sun09/21/23 at 1036, Routine, Recovery(Phase II-Outpatient)/On Unit(Inpatient), severe pain Given 09/21/2023 6:52 AM EDT 5 mg of hydroco done Given 09/21/2023 2:31 AM EDT 5 mg of hydrocodone Given 09/20/2023 8:26 PM EDT 5 mg of hydrocodone HYDROcodone-acetaminophen (Mesa) 5-325 MG per tablet 5 mg of hydrocodone 5 mg of hydrocodone, Oral, Every 6 hours PRN, Starting on Sun09/21/23 at 1036, Until Sun09/25/23 at 1703, Routine, Recovery(Phase II-Outpatient)/On Unit(Inpatient), severe pain Given 09/25/2023 3:52 AM EDT 5 mg of hydroco done Given 09/24/2023 8:07 PM EDT 5 mg of hydrocodone Given 09/24/2023 1:45 PM EDT 5 mg of hydrocodone insulin lispro (Admelog) 100 units/mL injection - Correction - Standard Dose 0-5 Units, Subcutaneous, 3 times daily with meals, First dose on Sun09/19/23 at 1730, Until Discontinued, Routine Given 09/24/2023 5:46 PM EDT 1 Units Left Lower Abdomen Given 09/19/2023 5:56 PM EDT 1 Units Ri ght Upper Arm (Back) insulin lispro (Admelog) injection - Correction - Nighttime Dose 0-3 Units, Subcutaneous, 2 times nightly (2100 & 0300), First dose on Sun09/19/23 at 2100, Until Discontinued, Routine Given 09/19/2023 9:30 PM EDT 2 Units Left Upper Arm (Back) ketorolac (Toradol) injection 15 mg 15 mg, Intravenous, Once, 1 dose, On Sun09/19/23 at 0830, Routine, Holding - Preprocedure Given 09/19/2023 10:53 AM EDT 15 mg lactated Ringer's infusion 100 mL/hr, Intravenous, Continuous, Starting on Sun09/19/23 at 1445, Until Sun09/20/23 at 1443, Routine New Bag 09/19/2023 2:44 PM EDT 100 mL/hr 100 mL/hr magnesium hydroxide (Milk of Magnesia) 400 MG/5ML suspension 10 mL 10 mL, Oral, 2 times daily PRN, Starting on Sun09/19/23 at 1427, Until Sun09/25/23 at 1703, Routine, Recovery(Phase II-Outpatient)/On Unit(Inpatient), constipation, for constipation - use as first line agent magnesium oxide (Mag-Ox) tablet 400 mg 400 mg, Oral, Daily, First dose on Sun09/24/23 at 1515, Until Discontinued, Routine Given 09/25/2023 8:40 AM EDT 400 mg Given 09/24/2023 5:29 PM EDT 400 mg ondansetron (Zofran) injection 4 mg 4 mg, Intravenous, Every 6 hours PRN, Starting on Sun09/19/23 at 1427, Until Sun09/25/23 at 1703, Routine, Recovery(Phase II-Outpatient)/On Unit(Inpatient), nausea, vomiting oxyCODONE (Roxicodone) immediate release tablet 10 mg 10 mg, Oral, Once as needed, 1 dose, Starting on Sun09/19/23 at 1312, Until Sun09/19/23 at 1325, Routine, Recovery (Phase I only), pain score of 6-8 out of 10 Given 09/19/2023 1:25 PM EDT 10 mg oxyCODONE (Roxicodone) immediate release tablet 5 mg 5 mg, Oral, Once, 1 dose, On Sun09/19/23 at 0830, Routine, Holding - Preprocedure Given 09/19/2023 10:42 AM EDT 5 mg pantoprazole (Protonix) EC tablet 40 mg 40 mg, Oral, Daily before breakfast, First dose on Sun09/20/23 at 0730, Until Discontinued, Routine, Recovery(Phase II-Outpatient)/On Unit(Inpatient) Given 09/25/2023 6:33 AM EDT 40 mg Given 09/24/2023 5:54 AM EDT 40 mg Given 09/23/2023 8:26 AM EDT 40 mg polyethylene glycol (Miralax) packet 17 g 17 g, Oral, Daily with breakfast, First dose on Sun09/20/23 at 0800, Until Discontinued, Routine, Recovery(Phase II-Outpatient)/On Unit(Inpatient) Given 09/23/2023 8:26 AM EDT 17 g Given 09/22/2023 8:35 AM EDT 17 g Given 09/21/2023 9:02 AM EDT 17 g polyethylene glycol (Miralax) packet 17 g 17 g, Oral, Daily PRN, Starting on Sun09/24/23 at 1300, Until Sun09/25/23 at 1703, Routine, Recovery(Phase II-Outpatient)/On Unit(Inpatient), constipation senna-docusate (Sondra-Colace) 8.6-50 MG per tablet 2 tablet 2 tablet, Oral, Nightly, First dose on Sun09/19/23 at 2100, Until Discontinued, Routine, Recovery(Phase II-Outpatient)/On Unit(Inpatient) Given 09/24/2023 8:08 PM EDT 2 tablets Given 09/23/2023 9:15 PM EDT 2 tablets Given 09/22/2023 9:18 PM EDT 2 tablets traMADol (Ultram) tablet 50 mg 50 mg, Oral, Once, 1 dose, On Sun09/19/23 at 0830, Routine, Holding - Preprocedure Given 09/19/2023 10:42 AM EDT 50 mg vancomycin in dextrose (Vancocin) IVPB 1,000 mg 1,000 mg, Intravenous, Once, 1 dose, On Sun09/19/23 at 0830, at 200 mL/hr, STAT New Bag 09/19/2023 9:24 AM EDT 1,000 mg 200 mL/hr documented in this encounter Active and Recently Administered Medications Times are shown in EDT. Scheduled Medication Order 09/23/2023 09/24/2023 09/25/2023 acetaminophen (Tylenol) tablet 500 mg 500 mg, Oral, Every 6 hours scheduled, First dose on Sun09/19/23 at 1445, Until Discontinued, Routine, Recovery(Phase II-Outpatient)/On Unit(Inpatient) 0526 (Given - Provider: Beck Woods)1156 (Given - Provider: Alberta Powesr, NINI)1759 (Given - Provider: Alberta Powers RN)2644 (Not Given - Provider: Becca Machuca RN - Reason: Hold for condition: must add comment ) 0554 (Given - Provider: Becca Machuca RN)1107 (Given - Provider: Ayah Schmid RN)1729 (Given - Provider: Ayah Schmid RN)2313 (Given - Provider: Roly Hastings RN) 0514 (Given - Provider: Roly Hastings RN)1146 (Given - Provider: Ryanne Feldman RN) alendronate (Fosamax) tablet 70 mg *Patient Own Supply Medication* 70 mg, Oral, Weekly, First dose on Sun09/23/23 at 0930, Until Discontinued, Routine 0919 (Given - Provider: Alberta Powers RN) aspirin chewable tablet 81 mg 81 mg, Oral, 2 times daily, First dose on Sun09/20/23 at 0900, Until Discontinued, Routine, Recovery(Phase II-Outpatient)/On Unit(Inpatient) 0826 (Given - Provider: Alberta Powers RN)211 (Given - Provider: Becca Machuca RN) 0824 (Given - Provider: Ayah Schmid RN)2007 (Given - Provider: Roly Hastings RN) 0840 (Given - Provider: Ryanne Feldman RN) calcium-vitamin D 500-200 MG-UNIT per tablet 1 tablet 1 tablet, Oral, 2 times daily with meals, First dose on Sun09/19/23 at 2100, Until Discontinued, Routine, Recovery(Phase II-Outpatient)/On Unit(Inpatient) 0826 (Given - Provider: Alberta Powers RN)1754 (Given - Provider: Alberta Powers RN) 0824 (Given - Provider: Ayah Schmid RN)1729 (Given - Provider: Ayah Schmid RN) 0840 (Given - Provider: Ryanne Feldman RN) insulin lispro (Admelog) 100 units/mL injection - Correction - Standard Dose 0-5 Units, Subcutaneous, 3 times daily with meals, First dose on Sun09/19/23 at 1730, Until Discontinued, Routine 0742 (Not Given - Provider: Alberta Powers RN - Reason: Order parameters not met)1141 (Not Given - Provider: Alberta Powers RN - Reason: Order parameters not met)1642 (Not Given - Provider: Alberta Powers RN - Reason: Order parameters not met) 0836 (Not Given - Provider: Ayah Schmid RN - Reason: Order parameters not met)1317 (Not Given - Provider: Ayah Schmid RN - Reason: Order parameters not met)1746 (Given - Provider: Ayah Schmid RN) 0838 (Not Given - Provider: Ryanne eFldman RN - Reason: Hold for condition: must add comment - Comment: fsbs [phone])1302 (Not Given - Provider: Ryanne Feldman RN - Reason: Hold for condition: must add comment - Comment: taken late after patient ate and patient being discharged) insulin lispro (Admelog) injection - Correction - Nighttime Dose 0-3 Units, Subcutaneous, 2 times nightly (2100 & 0300), First dose on Sun09/19/23 at 2100, Until Discontinued, Routine 0257 (Not Given - Provider: Beck Woods - Reason: Order parameters not met)2038 (Not Given - Provider: Becca Machuca RN - Reason: Order parameters not met) 023 (Not Given - Provider: Becca Machuca RN - Reason: Order parameters not met)212 (Not Given - Provider: Roly Hastings RN - Reason: Order parameters not met) 0230 (Not Given - Provider: Roly Hastings RN - Reason: Order parameters not met) magnesium oxide (Mag-Ox) tablet 400 mg 400 mg, Oral, Daily, First dose on Sun09/24/23 at 1515, Until Discontinued, Routine 1729 (Given - Provider: Ayah Schmid RN) 0840 (Given - Provider: Ryanne Feldman RN) pantoprazole (Protonix) EC tablet 40 mg 40 mg, Oral, Daily before breakfast, First dose on Sun09/20/23 at 0730, Until Discontinued, Routine, Recovery(Phase II-Outpatient)/On Unit(Inpatient) 0826 (Given - Provider: Alberta Powers RN) 0554 (Given - Provider: Becca Machuca RN) 0633 (Given - Provider: Roly Hastings RN) polyethylene glycol (Miralax) packet 17 g (CANCELED) 17 g, Oral, Daily with breakfast, First dose on Sun09/20/23 at 0800, Until Discontinued, Routine, Recovery(Phase II-Outpatient)/On Unit(Inpatient) 825 (Given - Provider: Alberta Powers, NINI) 0836 (Not Given - Provider: Ayah Schmid RN - Reason: Patient/family refused - Comment: pt already had a bowel movement this morning) senna-docusate (Sondra-Colace) 8.6-50 MG per tablet 2 tablet 2 tablet, Oral, Nightly, First dose on Sun09/19/23 at 2100, Until Discontinued, Routine, Recovery(Phase II-Outpatient)/On Unit(Inpatient) 2114 (Given - Provider: Becca Machuca, NINI) 2007 (Given - Provider: Roly Hastings RN) PRN Medication Order 09/23/2023 09/24/2023 09/25/2023 bisacodyl (Dulcolax) suppository 10 mg 10 mg, Rectal, 2 times daily PRN, Starting on Sun09/19/23 at 1427, Until Sun09/25/23 at 1703, Routine, Recovery(Phase II-Outpatient)/On Unit(Inpatient), constipation, for constipation - use if no bowel movement after giving magnesium hydroxide dextrose 10 % (D10W) bolus 125 mL(Linked Group 1) 125 mL (12.5 g), Intravenous, Every 15 min PRN, Starting on Sun09/19/23 at 1656, Until Sun09/25/23 at 1703, Administer over 15 Minutes, Routine, POC BG 71 to 89 mg/dL dextrose 10 % (D10W) bolus 125 mL(Linked Group 2) 125 mL (12.5 g), Intravenous, Every 15 min PRN, Starting on Sun09/19/23 at 1656, Until Sun09/25/23 at 1703, Administer over 15 Minutes, Routine, POC BG 51 to 70 mg/dL dextrose 10 % (D10W) bolus 250 mL(Linked Group 3) 250 mL (25 g), Intravenous, Every 15 min PRN, Starting on Sun09/19/23 at 1656, Until Sun09/25/23 at 1703, Administer over 15 Minutes, Routine, POC BG is less than or equal to 50 mg/dL diphenhydrAMINE (Benadryl) tablet 12.5 mg 12.5 mg, Oral, Every 4 hours PRN, Starting on Sun09/19/23 at 1427, Until Sun09/25/23 at 1703, Routine, Recovery(Phase II-Outpatient)/On Unit(Inpatient), itching, sleep glucagon (human recombinant) injection 1 mg 1 mg, Intramuscular, Every 15 min PRN, Starting on Sun09/19/23 at 1656, Until Sun09/25/23 at 1703, Routine, If patient NPO, lacks IV access, May Give IM and POC BG less than or equal to 70 mg/dL, glucose (Glutose) 40 % oral gel 15 grams of glucose(Linked Group 1) 15 grams of glucose, Sublingual, Every 15 min PRN, Starting on Sun09/19/23 at 1656, Until Sun09/25/23 at 1703, Routine, low blood sugar, POC BG 71 to 89 mg/dL glucose (Glutose) 40 % oral gel 15 grams of glucose(Linked Group 2) 15 grams of glucose, Sublingual, Every 15 min PRN, Starting on Sun09/19/23 at 1656, Until Sun09/25/23 at 1703, Routine, low blood sugar, BG 51?to 70 mg/dL glucose (Glutose) 40 % oral gel 30 grams of glucose(Linked Group 3) 30 grams of glucose, Sublingual, Every 15 min PRN, Starting on Sun09/19/23 at 1656, Until Sun09/25/23 at 1703, Routine, low blood sugar, POC BG is less than or equal to 50 mg/dL HYDROcodone-acetaminoph en (Mesa) 5-325 MG per tablet 5 mg of hydrocodone 5 mg of hydrocodone, Oral, Every 6 hours PRN, Starting on Sun09/21/23 at 1036, Until Sun09/25/23 at 1703, Routine, Recovery(Phase II-Outpatient)/On Unit(Inpatient), severe pain 2152 (Given - Provider: Becca Machuca RN) 134 (Given - Provider: Ayah Schmid RN)2006 (Given - Provider: Roly Hastings, NINI) 035 (Given - Provider: Roly Hastings RN) magnesium hydroxide (Milk of Magnesia) 400 MG/5ML suspension 10 mL 10 mL, Oral, 2 times daily PRN, Starting on Sun09/19/23 at 1427, Until Sun09/25/23 at 1703, Routine, Recovery(Phase II-Outpatient)/On Unit(Inpatient), constipation, for constipation - use as first line agent ondansetron (Zofran) injection 4 mg 4 mg, Intravenous, Every 6 hours PRN, Starting on Sun09/19/23 at 1427, Until Sun09/25/23 at 1703, Routine, Recovery(Phase II-Outpatient)/On Unit(Inpatient), nausea, vomiting polyethylene glycol (Miralax) packet 17 g 17 g, Oral, Daily PRN, Starting on Sun09/24/23 at 1300, Until Sun09/25/23 at 1703, Routine, Recovery(Phase II-Outpatient)/On Unit(Inpatient), constipation Linked Groups Order Group 1: glucose (Glutose) 40 % oral gel 15 grams of glucoseJump to med 15 grams of glucose, Sublingual, Every 15 min PRN, Starting on Sun09/19/23 at 1656, Until Sun09/25/23 at 1703, Routine, low blood sugar, POC BG 71 to 89 mg/dL Or dextrose 10 % (D10W) bolus 125 mLJump to med 125 mL (12.5 g), Intravenous, Every 15 min PRN, Starting on Sun09/19/23 at 1656, Until Sun09/25/23 at 1703, Administer over 15 Minutes, Routine, POC BG 71 to 89 mg/dL Group 2: glucose (Glutose) 40 % oral gel 15 grams of glucoseJump to med 15 grams of glucose, Sublingual, Every 15 min PRN, Starting on Sun09/19/23 at 1656, Until Sun09/25/23 at 1703, Routine, low blood sugar, BG 51?to 70 mg/dL Or dextrose 10 % (D10W) bolus 125 mLJump to med 125 mL (12.5 g), Intravenous, Every 15 min PRN, Starting on Sun09/19/23 at 1656, Until Sun09/25/23 at 1703, Administer over 15 Minutes, Routine, POC BG 51 to 70 mg/dL Group 3: dextrose 10 % (D10W) bolus 250 mLJump to med 250 mL (25 g), Intravenous, Every 15 min PRN, Starting on Sun09/19/23 at 1656, Until Sun09/25/23 at 1703, Administer over 15 Minutes, Routine, POC BG is less than or equal to 50 mg/dL Or glucose (Glutose) 40 % oral gel 30 grams of glucoseJump to med 30 grams of glucose, Sublingual, Every 15 min PRN, Starting on Sun09/19/23 at 1656, Until Sun09/25/23 at 1703, Routine, low blood sugar, POC BG is less than or equal to 50 mg/dL documented in this encounter Additional Health Concerns Assessment Noted Time A fall risk assessment has been complete d for the patient 08/14/2023 10:21 AM EDT A Body Mass Index follow-up plan has been documented for the patient 09/25/2023 10:52 AM EDT documented as of this encounter Care Teams Communications Intern Relationship Specialty Start Date End Date Betsy Smith [address] [facility] [address] [place] [address] PCP - General 06/13/23 documented as of this encounter
--- OUTSIDE RECORDS SUMMARY | 2024-03-25 02:46 | XMS_ITS | Encounter Summary ---
Author Organization Healthcare Address [address] [place] [address] Care Team Providers Care Tumbler Machine Operator Name Role Phone Betsy Smith Primary Care Provider [phone] Encounter Details Date Type Department Care Team (Latest Contact Info) Description 09/26/2023 Travel Social History Tobacco Use Types Packs/Day [...] drink first t dahlia in the morning (EYE-DEMONSTRATOR SEWING TECHNIQUES) to steady your nerves or to get [...] [facility] [address] [facility], [address] [place] [address] Griffin Bustillos MD [address] [place] [address] documented as of this encounter Visit Diagnoses Not on filedocumented in this encounter Additional Health Concerns Assessment Noted Time A fall risk assessment has been complete d for the patient 08/14/2023 10:21 AM EDT A Body Mass Index follow-up plan has been documented for the patient 09/25/2023 10:52 AM EDT documented as of this encounter Care Teams Tumbler Machine Operator Relationship Specialty Start Date End Date Betsy Smith [address] [facility] [address] [place] [address] PCP - General 06/13/23 documented as of this encounter
--- OUTSIDE RECORDS SUMMARY | 2024-03-25 02:46 | XMS_ITS | Encounter Summary ---
Author Organization Healthcare Address [address] [place] [address] Care Team Providers Care Er Physician Name Role Phone Betsy Smith Primary Care Provider [phone] Encounter Details Date Type Department Care Team (Latest Contact Info) Description 09/19/2023 Travel Social History Tobacco Use Types Packs/Day [...] drink first t dahlia in the morning (EYE-VALIDATION INTERN) to steady your nerves or to get [...] [facility] [address] [facility], [address] [place] [address] Griffin Bustillos MD [address] [place] [address] documented as of this encounter Visit Diagnoses Not on filedocumented in this encounter Additional Health Concerns Assessment Noted Time A fall risk assessment has been complete d for the patient 08/14/2023 10:21 AM EDT A Body Mass Index follow-up plan has been documented for the patient 09/25/2023 10:52 AM EDT documented as of this encounter Care Teams Er Physician Relationship Specialty Start Date End Date Betsy Smith [address] [facility] [address] [place] [address] PCP - General 06/13/23 documented as of this encounter
--- OUTSIDE RECORDS SUMMARY | 2024-03-25 02:46 | XMS_ITS | Encounter Summary ---
Author Organization Healthcare Address [address] [place] [address] Care Team Providers Care Hyster Driver Name Role Phone Betsy Smith Primary Care Provider [phone] Reason for Visit * Reason Onset Date Comments HCN - Patient Message 09/21/2023 Encounter Details Date Type Department Care Team (Late st Contact Info) Description 09/21/2023 Telephone [facility] [address] [place] [address] Griffin Bustillos [address] [facility] [place] [address] HCN - Patient Message Social History Tobacco Use Types Packs/Day Years [...] drink first t dahlia in the morning (EYE-BETTING CLERKS) to steady your nerves or to get [...] as of this encounter Miscellaneous Notes * Telephone Encounter - Krystal Romo RN - 09/21/2023 1:17 PM EDT Called and spoke with pt's daughter. Daughter reporting concerns over pt's discharge plan. Instructed pt's daughter to contact pt's inpt nurse/healthcare team to discuss concerns/options. Pt's daughter verbalized understanding. No further questions or concerns. * Telephone Encounter - Luh Stewart - 09/21/2023 12:15 PM EDT Patient Phone Message Reason for Call: Pt daughter is asking for a call back to discuss pt going to [facility] after being discharged from [facility] but now they are refusing to admit her to [facility]. She would like a call back [facility] Best contact number and optimal time of day to reach caller: [phone] Shaylee Note: Please do not reply to this message. Follow-up communication and further actions as a result of this message need to be communicated with the patient directly, if the patient is not active onMyChart. If the patient is active on MyChart, they will receive notification of the communication/outcome via [employer]. documented in this encounter Plan of Treatment Upcoming Encounters Date Type Department Care Team ([facility] st Contact Info) Description 03/03/2025 1:30 PM EDT Office Visit Medical Office Building [facility] [address] [facility], [address] [place] [address] Griffin Bustillos MD [address] [place] [address] documented as of this encounter Visit Diagnoses Not on filedocumented in this encounter Additional Health Concerns Assessment Noted Time A fall risk assessment has been complete d for the patient 08/14/2023 10:21 AM EDT A Body Mass Index follow-up plan has been documented for the patient 09/25/2023 10:52 AM EDT documented as of this encounter Care Teams Hyster Driver Relationship Specialty Start Date End Date Betsy Smith [address] [facility] [address] [place] [address] PCP - General 06/13/23 documented as of this encounter
--- OUTSIDE RECORDS SUMMARY | 2024-03-25 02:47 | XMS_ITS | Encounter Summary ---
Author Organization Healthcare Address [address] [place] [address] Care Team Providers Care Pediatric Occupational Therapist Name Role Phone Betsy Smith Primary Care Provider [phone] Encounter Details Date Type Department Care Team (Late Contact Info) Description 06/16/2023 Orders Only External Location [address] [place] [address] Sandoval Patino MD [address] [facility] [address] [place] [address] Social History Tobacco Use Types Packs/Day Years Used Date Smoking Tobacco: Never Assessed Comments Unknown Sex and Gender Information Value Date Recorded Sex Assigned at Female 09/19/2023 2:35 PM EDT Legal Sex Female 6:57 PM EDT Gender Identity Female 09/19/2023 2:35 PM EDT Sexual Orientation Straight 09/19/2023 2: 35 PM EDT documented as of this encounter Plan of Treatment Upcoming Encounters Date Type Department Care Team (Late Contact Info) Description 03/03/2025 1:30 PM EDT Office Visit Medical Office Building [facility] [address] [facility], [address] [place] [address] Griffin Bustillos MD [address] [facility] [address] [place] [address] documented as of this encounter Procedures Procedure Name Priority Date/Time Associated Diagnosis Comments CT PELVIS W IV CONTRAST 06/16/2023 1:59 PM EST documented in this encounter Results * CT Pelvis w IV Contrast (06/16/2023 1:59 PM EST) Anatomical Region Laterality Modality Pelvis Computed Tomogra phy 06/16/2023 1:59 PM EST Sandoval Patino MD IMG CT PROCEDURES Final Result documented in this encounter Visit Diagnoses Not on filedocumented in this encounter Care Teams Pediatric Occupational Therapist Relationship Specialty Start Date End Date Betsy Smith [facility] [facility] [address] [place] [address] PCP - General 06/13/23 documented as of this encounter
--- OUTSIDE RECORDS SUMMARY | 2024-03-25 02:47 | XMS_ITS | Encounter Summary ---
Author Organization Healthcare Address [address] [place] [address] Care Team Providers Care Gang Drill Press Operator Name Role Phone Betsy Smith Primary Care Provider [phone] Reason for Visit * Auth/Cert (Routine) Specialty Diagnoses / Procedures Referred By Mariza maher Referred To Contact Diagnoses Hip pain, left Hip pain, left [M25.552] Procedures RI TOTAL HIP ARTHROPLASTY RI TOTAL HIP ARTHROPLASTY ARTHROPLASTY, HIP, TOTAL Griffin Santiago MD [address] [place] [address] Phone: tel: fax: [place] [facility] Operating Room [address] [place] [address] Phone: tel: Referral ID Status Reason Start Date Expiration Date Visits Re quested Visits Authorized [id number] 1 1 Encounter Details Date Type Department Care Team (Late st Contact Info) Description 09/19/2023 11:40 AM EDT - 09/19/2023 1:30 PM EDT Surgery [facility] Operating Room [address] [place] [address] Griffin Santiago MD [address] [place] [address] ARTHROPLASTY, HIP, TOTAL [52424 (CPT??)] Surgery Details Date/Time Status Location OR Service Patient Class Case Class Case Type Trauma Case? 09/19/2023 11:40 AM Posted [facility] OR 2SOR 01 Orthopedic Surgery Extended Recovery E-Electi ve Panel 1 Procedure LRB Anes Op Region Wound Class Comments ARTHROPLASTY, HIP, TOTAL Left General Hip Class I/ Clean alfonso implants, cables Surgeon Surgeon Role Service Panel Griffin Santiago MD Primary Orthopedic Surge ry 1 Gila Vazquez APRN Assisting 1 Ag Boston MD Resident - Assisting Orthope dic Surgery 1 Special Needs alfonso implants, cables documented in this encounter Social History Tobacco Use Types Packs/Day Years [...] drink first t dahlia in the morning (EYE-RADIOLOGIST) to steady your nerves or to get [...] Sign Reading Time Taken Comments Blood Pressure 129/62 09/19/2023 1:30 PM EDT Pulse 68 09/19/2023 1:30 PM EDT Temperature 37.7 ??C (99.8 ??F) 09/19/2023 1 2:30 PM EDT Respiratory Rate 15 09/19/2023 1:30 PM EDT Oxygen Saturation 94% 09/19/2023 1:30 PM EDT Inhaled Oxygen Concentration - - Weight 68.9 kg (151 lb 14.4 oz) 09/19/2023 8:24 AM EDT Height 172.7 cm (5' 8 ) 09/19/2023 8:24 AM EDT Body Mass Index 22.96 09/19/2023 2:32 [...] 1 (one) time each day. HYDROcodone-acet aminophen (Phoenix) 5-325 MG tablet Take 1 tablet (5 [...] 09/25/2023 11:25 AM EDT Report called to [facility] stroke unit to yee RN * Progress Notes - Laney Tidwell N - 09/25/2023 11:05 AM EDT Occupational Therapy Treatment Patient Name: Tasneem Perales Today's Date: 09/25/2023 OT Discharge Recommendations: Subacute rehab Equipment Recommended: Defer to facility Subjective Patient agreeable to treatment Participants in Care Family/Caregiver Present: No Family/Caregiver: Adult Daughter Notch Machine Operator: Not Applicable Presentation Oxygen Therapy: None (Room [...] Transfer Exam: Sit to stand Level of Whitman: Contact guard Physical/Nonphysical Assist: Verbal Cues, Minimal cues, Set-up required Assistive Device: Walker, rolling Transfer Exam: Stand to Sit Level of Whitman: Contact guard Physical/Nonphysical Assist: Verbal Cues, Minimal cues, Set-up required Assistive Device: Walker, rolling Transfer Exam: Bed to Chair/Chair to Bed Level of Whitman: Minimum assist (75% patient's effort) Physical/Nonphysical Assist: Additional assist utilized for safety, 1 person + 1 person to manage equipment, Verbal Cues, Supervision, Moderate cues Assistive Device: Walker, rolling Toilet Transfer Level of Whitman: Minimum assist (75% patient's effort) Physical/Nonphysical Assist: [...] Note Tasneem Perales 88 y.o. female CSN: [id number] Admission: 09/19/2023 8:02 AM Primary Problem: Hip pain, left Pt will dc today to [facility]. RN will call report to [phone]. CM faxed dc summary to [phone]. Housing Circumstances-Z Codes: na Patient Referred to Financial or Community Resources: na Discharge Facility/Level of Care Needs: Discharge Facility/Level of Care Needs: 3-Correction Facility Patient's Choice of Community Agency(s): na Patient/Family Anticipated Services at Transition: [facility] DME/Equipment Needed after Discharge: none Readmission Within the Last 30 Days: Medicare Documentation: Follow-up: [facility] [address] [address] Follow up Griffin Santiago MD [address] [id number] Discharge Transportation: [facility] shuttle at 3pm. Follow Up Transport: family Lisa Fontana RN * Ena Zendejas RN - 09/25/2023 10:03 AM EDT Images from the original note were not included. 68961 After Hip Replacement: Using Your Walker After [...] good leg. Last Reviewed Date: 2021 ?? 1392-4812 [employer]. All rights reserved. This information is not intended as a substitute for professional medical care. Always follow your healthcare professional's instructions. * Anay [facility] - Ena Whipple RN - 09/25/2023 10:03 AM EDT Images from the original note were not included. 76965 Using an Incentive Spirometer An incentive spirometer [...] heart rate Last Reviewed Date: 2021 ?? 1743-3826 [employer]. All rights reserved. This information is not intended as a substitute for professional medical care. Always follow your healthcare professional's instructions. * Anay [facility] - Ena Whipple RN - 09/25/2023 10:03 AM EDT Images from the original note were not included. 53022 Preventing Deep Vein Thrombosis After Surgery In [...] blood clots. Move your feet in a aniak or up and down. Do this 10 [...] uncontrolled bleeding Last Reviewed Date: 2021 ?? 3510-5261 [employer]. All rights reserved. This information is not intended as a substitute for professional medical care. Always follow your healthcare professional's instructions. * Anay [facility] - Ena Whipple RN - 09/25/2023 10:03 AM EDT Images from the original note were not included. 05022 Preventing a Surgical Site Infection A risk [...] of infection. ?? Controlled body temperature. A sydrn-zmel-pqxfpl temperature during or after surgery prevents oxygen [...] and water or with an alcohol-based hand switch engineer before and after caring for you. Don?t [...] go away Last Reviewed Date: 2021 ?? 3788-6321 [employer]. All rights reserved. This information is not intended as a substitute for professional medical care. Always follow your healthcare professional's instructions. * Anay [facility] - Ena Whipple RN - 09/25/2023 10:03 [...] medicines unless your doctor approves. This includes aspt-exk-gcqukam medicines like aspirin, ibuprofen and Tylenol. ?? [...] a nutritional supplement such as Boost or [place] Instant Breakfast until your appetite returns to [...] surgery. If you have problems sleeping, take rogj-pdo-kugcemk diphenhydramine (Benadryl) or melatonin. ?? If you [...] prescription refill before your next appointment, call [phone]. Call 3 business days before you run [...] leg motion * Discharge Summary - Karime Oviedo APRN - 09/25/2023 9:59 AM EDT Hospitalization Admit Date/Time: 09/19/2023 8:02 AM Admitting Attending: Griffin Santiago Discharge Date: 09/25/2023 Discharge Attending Physician: Griffin Santiago MD PCP name and Address: Betsy Smith MD [address] / [facility] [address] Referring provider name and address: Griffin Santiago MD [address] [facility] [address] [place] [address] Chief Concern, Brief History of Present Illness, and Hospital Course Patient arrived to [facility] on 09/19/23 for their scheduled surgery. Patient [...] rehab placement. The patient was discharged to [facility]. Hospital Medicine Recommendations: - Your sodium [...] HYDROcodone-acetaminophen 5-325 MG tablet Commonly known as: Phoenix Take 1 tablet (5 mg of hydrocodone) [...] in place. Motor/sensation intact. Discharge Disposition/Condition Disposition: [facility] Condition: Stable (s/sx potential problems absent or manageable) I spent >30 minutes of patient care and instruction time in preparation for this discharge. Cosigned by Griffin Santiago MD at 10/02/2023 8:29 AM EDT Associated attestation - Griffin Santiago MD - 10/02/2023 8:29 AM EDT Signature Only * Progress Notes - Lucy Mcbride APRN - 09/25/2023 8:00 AM EDT [facility] Medicine Progress Note Subjective: Patient assessed on am rounds. Patient is sitting up in chair at bedside. Her daughter is at bedside, questions answered by ortho. Patient has minimal pain this morning and is ready for rehab. Plan is to send her to [facility] today. We discussed her sodium level. [...] Other precautions Iza Whiting??, Orthopedic Surgery PGY-2 [facility] Personal Pager: [phone] Orthopaedic Trauma Service Pager: [phone] Orthopaedic Recon/Spine/Foot and Ankle Service Pager: [phone] Cosigned by Griffin Santiago MD at 10/02/2023 8:29 AM EDT Associated attestation - Griffin Santiago MD - 10/02/2023 8:29 AM EDT Signature Only * Progress Notes - Chuck Marisol L - 09/24/2023 4:10 PM EDT Physical Therapy [...] PM. * Progress Notes - Lucy Mcbride APRN - 09/24/2023 2:19 PM EDT [facility] Medicine Progress Note Subjective: Patient assessed [...] Medications: Scheduled: acetaminophen, 500 mg, Oral, q6h SREEDAHR alendronate, 70 mg, Oral, Weekly aspirin, 81 [...] Note Tasneem Perales 88 y.o. female CSN: [id number] Admission: 09/19/2023 8:02 AM Primary Problem: Hip pain, left POC discussed with primary team. Per MD, patient is medically ready to discharge to [facility] when bad available. CM called [facility] liaison Gloria ([phone]) to notify. She will update CM bautista. CM met at bedside with patient and daughter Shaylee Richards to discuss discharge POC. Patient and Shaylee agreeable to [facility]. Family said they prefer patient to parag by the [facility] W/C Shuttle Van if able, or maybe a friend could transport if able. Update: CM called [facility] liaison Gloria to check on update and they are awaiting to hear from [facility] still. Update: Gloria said patient has a bed on the General Rehab Unit ([facility]U) tomorrow 09/25/23. Number to call report: [phone] Number to fax DC Summary: [phone] * Progress Notes - Iza Ellsworth MD [...] Other precautions Iza Whiting??, Orthopedic Surgery PGY-2 [facility] Personal Pager: [phone] Orthopaedic Trauma Service Pager: [phone] Orthopaedic Recon/Spine/Foot and Ankle Service Pager: [phone] Cosigned by Griffin Santiago MD at 10/02/2023 8:28 AM EDT Associated attestation - Griffin Santiago MD - 10/02/2023 8:28 AM EDT Signature Only * Anay Muir - Citlalli Mcmahon PA - 09/23/2023 2:00 PM EDT Images from the original note were not included. 54972 Discharge Instructions: Eating a Low-Potassium Diet Your [...] Vegetables: asparagus, avocado, artichoke, bamboo shoots, beets, [place] sprouts, cabbage, celery, chard, okra, potatoes (white and sweet), pumpkin, rutabaga, spinach (cooked), squash, tomato, tomato sauce, tomato juice, and vegetable juice cocktail ?? Legumes: black-eyed peas, chickpeas, lentils, galeana beans, navy beans, red kidney beans, soybeans, and split peas ?? Nuts and seeds: almonds, [place] nuts, cashews, peanuts, peanut butter, pecans, pumpkin [...] pounding (palpitations) Last Reviewed Date: 2022 ?? 0458-9610 [employer]. All rights reserved. This information is not intended as a substitute for professional medical care. Always follow your healthcare professional's instructions. * Anay [facility] - Citlalli Mcmahon PA - 09/23/2023 1:59 PM EDT Images from the original note were not included. 97316 Discharge Instructions: Limiting Fluids Your healthcare provider [...] ?? Confusion Last Reviewed Date: 2022 ?? 8201-1188 [employer]. All rights reserved. This information is not [...] Care Family/Caregiver Present: Yes Family/Caregiver: Adult Daughter Notch Machine Operator: Not Applicable Presentation Oxygen Therapy: None (Room [...] Post-Surgical Precautions: PHP Objective Pain Hip pain 08/14. RN aware. Delirium Screening Cunningham Agitation Sedation Scale (RASS): Alert and calm Confusion Assessment Method-ICU (CAM-ICU/PCAM-ICU) Feature 3: Altered Level of Consciousness: Negative Bed Mobility Bed Mobility Exam: Scooting/Bridging Level of Whitman: Contact guard Physical/Nonphysical Assist: Verbal Cues, Set-up required Bed Mobility Exam: Supine to Sit Level of Whitman: Minimum assist (75% patient's effort) Physical/Nonphysical Assist: Supervision, Verbal Cues, Nonverbal cues (demo/gestures), Minimal cues Transfers Transfer Exam: Sit to stand Level of Whitman: Contact guard Physical/Nonphysical Assist: Verbal Cues, Minimal cues, Set-up required Assistive Device: Walker, rolling Transfer Exam: Stand to Sit Level of Whitman: Contact guard Physical/Nonphysical Assist: Verbal Cues, Minimal cues, Set-up required Assistive Device: Walker, rolling Toilet Transfer Level of Whitman: Contact guard Physical/Nonphysical Assist: Set-up required, Minimal [...] Mcmahon PA - 09/23/2023 11:54 AM EDT [facility] Medicine Progress Note Subjective: Sitting in [...] preferred * Progress Notes - Markos Waterman O - 09/23/2023 9:25 AM EDT Physical Therapy Treatment Patient Name: Tasneem Perales Today's Date: 09/23/2023 PT Discharge Recommendations: Subacute rehab Equipment Recommended: Patient owns appropriate equipment Subjective Pt was agreeable with therapy and requested to use the BSC. Participants in Care Family/Caregiver Present: Yes Family/Caregiver: Adult Daughter Notch Machine Operator: Not Applicable Presentation Oxygen Therapy: None (Room [...] Transfer Exam: Sit to stand Level of Whitman: Contact guard Physical/Nonphysical Assist: Verbal Cues, Minimal cues, Set-up required Assistive Device: Walker, rolling Transfer Exam: Stand to Sit Level of Whitman: Contact guard Physical/Nonphysical Assist: Verbal Cues, Minimal cues, Set-up required Assistive Device: Walker, rolling Toilet Transfer Level of Whitman: Contact guard Physical/Nonphysical Assist: Set-up required, Minimal [...] K 5.3 (09/22) Discussed alendronate with Gila chambers for her to take today. Pharmacy will verify her home med. Dressings: Aquacel Precautions: PHP DVT: ASA PT: Acute rehab Plan: Pending rehab placement Mobility Orders Mobility Protocol: General - Mobility Guidelines Extremity Precautions: No Extremity Precautions Other mobility precautions: Posterior hip precautions Other mobility precautions: Other precautions Iza Whiting??, Orthopedic Surgery PGY-2 [facility] Personal Pager: [phone] Orthopaedic Trauma Service Pager: [phone] Orthopaedic Recon/Spine/Foot and Ankle Service Pager: [phone] Cosigned by Griffin Santiago MD at 10/02/2023 8:28 AM EDT Associated attestation - Griffin Santiago MD - 10/02/2023 8:28 AM EDT Signature Only * Progress Notes - Citlalli Mcmahon PA - 09/22/2023 3:02 PM EDT Hospital Medicine Progress Note Subjective: Evaluated this am with daughter at beside. Notes difficulty sleeping from ~ 8274-4173 due to left hip pain, now controlled [...] Other precautions Iza Whiting??, Orthopedic Surgery PGY-2 [facility] Personal Pager: [phone] Orthopaedic Trauma Service Pager: [phone] Orthopaedic Recon/Spine/Foot and Ankle Service Pager: [phone] Cosigned by Griffin Santiago MD at 10/02/2023 [...] is medically cleared for discharge. Peace Martin GEOPHYSICAL SUPPORT SPECIALIST * Progress Notes - Lisa Fontana RN - 09/21/2023 2:56 PM EDT Case Management Adult Progress Note Tasneem Zacarias Angella 88 y.o. female CSN: [id number] Admission: 09/19/2023 8:02 AM Primary Problem: Hip pain, left POC reviewed, pt nearing dc readiness. Blood transfusion today, team will re-ck H&H. PT/OT recs indicate [facility]. [facility] following. [facility] has no bed available. - [facility] was able to change coding to Inpt status vs Extended Recovery today. Medicare will require that pt stays here for 3 midnights, then eligible for subacute rehab. [facility] will re-eval on Sunday. CM will follow....... Lisa Fontana RN * Progress Notes - Laney Tidwell N - 09/21/2023 2:30 PM EDT Occupational Therapy Treatment Patient Name: Tasenem Perales Today's Date: 09/21/2023 OT Discharge Recommendations: Subacute rehab Equipment Recommended: Defer to facility Subjective Pt agreeable to assessment. Participants in Care Family/Caregiver Present: Yes Family/Caregiver: Adult Daughter Notch Machine Operator: Not Applicable Presentation Oxygen Therapy: None (Room [...] Mobility Exam: Supine to Sit Level of Whitman: Minimum assist (75% patient's effort) Physical/Nonphysical Assist: Supervision, Verbal Cues, Nonverbal cues (demo/gestures), Minimal cues Bed Mobility Exam: Sit to Supine Level of Whitman: Minimum assist (75% patient's effort) Physical/Nonphysical Assist: Supervision, Verbal Cues, Nonverbal cues (demo/gestures), Minimal cues Transfers Transfer Exam: Sit to stand Level of Whitman: Contact guard Physical/Nonphysical Assist: Verbal Cues, Supervision, Minimal cues Assistive Device: Walker, rolling Transfer Exam: Stand to Sit Level of Whitman: Contact guard Physical/Nonphysical Assist: Verbal Cues, Supervision, Minimal cues Assistive Device: Walker, rolling Transfer Exam: Bed to Chair/Chair to Bed Level of Whitman: Minimum assist (75% patient's effort) Physical/Nonphysical Assist: Additional assist utilized for safety, 1 person + 1 person to manage equipment, Verbal Cues, Supervision, Moderate cues Assistive Device: Walker, rolling Toilet Transfer Level of Whitman: Minimum assist (75% patient's effort) Physical/Nonphysical Assist: [...] Lower Extremity Dressing LE Dressing Adaptive Equipment: Business Solutions Consultant, Sock aide Pants Level of Assistance: Minimum [...] PM. * Progress Notes - Marisol Woods Monica - 09/21/2023 2:29 PM EDT Physical Therapy [...] functional transfers: Mod I, [facility] 09/19/23 2 weeks PT Goal 3: Pt will demonstrate ability to negotiate 14 stairs with Right railing: Mod I, in prep for daily home life. 09/19/23 2 weeks PT Goal 4: Pt will recit all 3 PHP: Ind, for safe mobility and discharge. 09/19/23 2 weeks Written by Marisol Woods on 09/21/23 at 4:33 PM. * Progress Notes - Citlalli Mcmahon PA - 09/21/2023 12:52 PM EDT Hospital Medicine Progress Note Subjective: Mobilizing with PT on initial assessment this am with daughter and primary team at bedside. Primaryteam removed surgical dressing to reveal left hip incision without noted active drainage. [place] remain in place with edges well- approximated. [...] (Dr. Shelley) 06/28/23, patient was admitted to [facility] 06/16-06/17 for hyponatremia and hyperkalemia (Na 123, K 5.8), with hyponatremia thought to be due to dehydration with improvement to 133 06/28 consistent with labs pre-op labs 4/30 - Na downtrend to 125 this am, [...] Cues: Type of transfer: Spoke with Lisa Information Technology Coordinator and Karime BILL about insurance not paying [...] functional transfers: Mod I, [facility] 09/19/23 2 weeks PT Goal 3: [...] Other precautions Iza Whiting??, Orthopedic Surgery PGY-2 [facility] Personal Pager: [phone] Orthopaedic Trauma Service Pager: [phone] Orthopaedic Recon/Spine/Foot and Ankle Service Pager: [phone] Cosigned by Griffin Santiago MD at 10/02/2023 [...] Note Tasneem Perales 88 y.o. female CSN: [id number] Admission: 09/19/2023 8:02 AM Primary Problem: Hip pain, left POC reviewed, pt is not ready for dc at this time. Blood transfusion this afternoon during CM visit with pt. PT/OT recs: [facility] (revised today from [place]). Pt requested referral to [facility] and [facility], which have been sent. No DME needed. Gloria with [facility] following. CM will remain available to [...] (Dr. Shelley) 06/28/23, patient was admitted to [facility] 06/16-06/17 for worsening left hip pain, weakness, [...] preferred * Progress Notes - Laney Tidwell - 09/20/2023 11:05 AM EDT Occupational Therapy [...] Care Family/Caregiver Present: Yes Family/Caregiver: Adult Daughter Notch Machine Operator: Not Applicable Presentation Oxygen Therapy: None (Room [...] only (declining function since Jan 2023) Mobility Whitman: Independent gait with device History of Falls: Yes ADL Performance: Independent Patient/Family Goals Statement Patient wishes to go to [facility] rehab Objective Pain 2/10 in left LE [...] Mobility Exam: Supine to Sit Level of Whitman: Contact guard Physical/Nonphysical Assist: Supervision, Verbal Cues, Nonverbal cues (demo/gestures), Minimal cues Transfers Transfer Exam: Sit to stand Level of Whitman: Minimum assist (75% patient's effort) Physical/Nonphysical Assist: Verbal Cues, Supervision, Minimal cues, 1 person + 1 person to manage equipment Assistive Device: Walker, rolling Transfer Exam: Stand to Sit Level of Whitman: Minimum assist (75% patient's effort) Physical/Nonphysical Assist: Verbal Cues, Supervision, Minimal cues, 1 person + 1 person to manage equipment Assistive Device: Walker, rolling Transfer Exam: Bed to Chair/Chair to Bed Level of Whitman: Minimum assist (75% patient's effort) Physical/Nonphysical Assist: Additional assist utilized for safety, 1 person + 1 person to manage equipment, Verbal Cues, Supervision, Moderate cues Assistive Device: Walker, rolling Toilet Transfer Level of Whitman: Minimum assist (75% patient's effort) Physical/Nonphysical Assist: [...] Lower Extremity Dressing LE Dressing Adaptive Equipment: Business Solutions Consultant, Sock aide Sock Level of Assistance: Minimum [...] LOB increasing risk for fall. Standardized Assessments [facility] 6-Click Daily Activities Help from Other: Don/Doff Regular Lower Body Clothings: Little Help From Other: Bathing: Little Help From Other: Toileting: Little Help From Other: Don/Doff Upper Body Clothings: None Help From Other: Grooming: None Help From Other: Eating Meals: None [facility] 6 Click - Daily Activities Score: 21 [...] rehab recs. Is hoping to go to [facility]. Objective: Vitals: 09/20/23 0246 BP: 114/57 Pulse: [...] Other precautions Iza Whiting??, Orthopedic Surgery PGY-2 [facility] Personal Pager: [phone] Orthopaedic Trauma Service Pager: [phone] Orthopaedic Recon/Spine/Foot and Ankle Service Pager: [phone] Cosigned by Griffin Santiago MD at 09/20/2023 8:17 AM EDT Associated attestation - Griffin Santiago MD - 09/20/2023 8:17 AM EDT Signature Only * Progress Notes - Keven Ayala - 09/19/2023 7:06 PM EDT Physical Therapy [...] a past medical history of Diabetes mellitus ([facility]), Hypertension, and Osteoporosis. Past Surgical [...] Care Family/Caregiver Present: Yes Family/Caregiver: Adult Daughter Notch Machine Operator: Not Applicable Presentation Oxygen Therapy: None (Room [...] wc more often over past month.) Mobility Whitman: Independent gait with device History of Falls: [...] Mobility Bed Mobility Exam: Rolling/Turning Level of Whitman: Minimum assist (75% patient effort) Physical/Nonphysical Assist: Verbal Cues, Supervision Bed Mobility Exam: Scooting/Bridging Level of Whitman: Minimum assist (75% patient's effort) Physical/Nonphysical Assist: Verbal Cues, Supervision Bed Mobility Exam: Supine to Sit Level of Whitman: Minimum assist (75% patient's effort) Physical/Nonphysical Assist: Supervision, Verbal Cues Bed Mobility Exam: Sit to Supine Level of Whitman: Dependent (Pt with syncopal episode, requiring immediate assistance back into Trendelenburg position.) Cueing provided for not crossing midline with LLE while attempting to scoot to EOB. Transfers Transfer Exam: Sit to stand Level of Whitman: Contact guard Physical/Nonphysical Assist: Verbal Cues, Supervision Assistive Device: Walker, rolling Transfer Exam: Stand to Sit Level of Whitman: Contact guard Physical/Nonphysical Assist: Verbal Cues, Supervision [...] extremity support Dynamic Standing-Balance: Lateral weight shifts (Kwhedbtf-ka-ydmmu) Dynamic Standing Level of Assistance: Minimum assistance Participation in Functional Tasks: Minimum assistance Gait Training Deferred d/t syncopal episode. Therapeutic Exercise (15 minutes) Access Code: [email or web address] URL: [email or web address] Date: 09/19/2023 Prepared by: Maribeth Castellano Notes [...] - 10 reps - Phase 3( Days 15-28) Hamstring Curl - 2 x daily - [...] day. Standardized Assessments Standardized Assessments Standardized Assessments: AMPAC 6-Clicks Mobility Assessment AMPAC 6-Clicks Mobility Assessment Difficulty patient has turning [...] climbing 3-5 steps with a railing?: Unable AMPAC 6-Clicks Mobility Assessment Total : 15 Assessment Pt presents with multiple comorbidities, a moderate decline in function d/t Left KUSH, as well as with impairments to multiple body systems. Evaluation completed, with pt experiencing syncopal episodeafter standing activities (weight-shifting and rekvgkyt-rw-acftf) and sitting at EOB, requiring assistance back [...] functional transfers: Mod I, in prep for dilyDatacastlee life. 2 weeks PT Goal 3: Pt [...] by Vesta Wood RN Outcome: Ongoing, Progressing 09/19/20231803 by Vesta Wood RN Outcome: Ongoing, Progressing Goal: Absence of Hospital-Acquired Illness or Injury 09/19/20231804 by Vesta Wood RN Outcome: Ongoing, Progressing 09/19/20231803 by Vesta Wood RN Outcome: Ongoing, Progressing Goal: Optimal Comfort and Wellbeing 09/19/20231804 by Vesta Wood RN Outcome: Ongoing, Progressing 09/19/20231803 by Vesta Wood RN Outcome: Ongoing, Progressing Goal: Readiness for Transition of Care 09/19/20231804 by Vesta Wood RN Outcome: Ongoing, Progressing 09/19/20231803 by Vesta Wood RN Outcome: Ongoing, Progressing Problem: Fall Injury Risk Goal: Absence of Fall and Fall-Related Injury 09/19/20231804 by Vesta Wood RN Outcome: Ongoing, Progressing 09/19/20231803 by Vesta Wood RN Outcome: Ongoing, [...] 4:57 PM EDTAssociated Order(s): Inpatient consult to Marcela Dickens Inpatient consult to Marcela Dickens Consult performed by: Karan Montaño APRN Consult ordered by: Karime Oviedo APRN Reason for Visit: Hypertension LAURA Perales is a 88 y.o. female seen at [...] following surgery. In addition, she suffers from tlq-fptzoes-skyrcvpat diabetes mellitus, currently controlled with oral medication. Her last A1c was in June 2023 finding it to be 6.3%. Our team will continue to follow her and manage medically. In addition, she does suffer from chronic hyponatremia that has really been occurring since May 2023. She apparently was hospitalized at [facility] in May for hyponatremia and stayed overnight. I do not have any details from this hospitalization. Her sodium on 09/14/2023 was found to be 129, a repeat on 09/17/2023 found to be 128. PAST MEDICAL HX Hypertension Arj-lffoeyl-oxgvnphql diabetes mellitus Chronic hyponatremia since May 2023 [...] on 09/04/2023 09/19/23 Michael Jacobo MD HYDROcodone-acetaminophen ([place]) 5-325 MG tablet TAKE 1 TABLET BY MOUTH EVERY 6 HOURS NEEDED FOR MILD TO MODERATE PAIN (1-6) FOR 3 DAYS Patient not taking: Reported on 08/14/2023 06/17/23 09/19/23 Michael Jacobo MD NON FORMULARY Smooth Move Tea [facility] Patient not taking: Reported on 09/04/2023 09/19/23 [...] No nausea or vomiting Endocrine: Diabetes mellitus gfq-zbkpvdq-jhvssnnhb Genitourinary: Negative. Musculoskeletal: Chronic left hip pain [...] to be 0.7 Sodium level: 09/16 @128 5/10 @ 129 09/03 @ 133 ASSESSMENT AND [...] irbesartan overnight follow-up with her renal labs. Vdu-txolhfy-ydfkmztpy diabetes mellitus -hemoglobin A1c in June 2023 [...] 7P-7A) with questions or concerns. Raz Montaño, [facility] Hospital Medicine Secure Chat Cosigned by Mojgan Ashley MD at 09/20/2023 8:07 AM EDT * Anesthesia PACU Signout - John Merchant DO - 09/19/2023 1:35 PM EDT Patient: Tasneem Zacarias McIlvain Anesthesia Type: general Vitals Value Taken Time [...] AM EDT Operative Note Date: 09/19/23 Location: [facility] OR Name: Tasneem Perales, : 1935, Diagnoses: Pre-op Diagnosis Hip pain, left with arthritis Post-op Diagnosis Hip pain, left with arthritis Procedure(s): Left total hip Attending Surgeon(s): * Griffin Santiago - Primary * Gila Vazquez - Assisting Solar Installation Technician(s): * Ag Boston MD - Resident - Assisting Anesthesia: General ASA: III Blood Administration: Blood Product Administration History None Estimated Blood Loss: Minimal Drains: * None in log * Implants Type Name Action Serial No. Hip SHELL TRIDENT II CLUSTER 52MM - [id number] Implanted Liner LINER TRIDENT X3 10DEG 36 mm ID 5.9 mm - [id number] Implanted Screw SCREW 6.5MM TRIDENT LOW PROFILE HEX 25MM - [id number] Implanted Cable CHG CABLE D-M 2.0MM BEADED SET - [id number] Implanted Hip HIP SIZE 6 ACCOLADE II 127 DEG - [id number] Implanted Hip CHG HEAD DELTA V-40 CERAMIC 36 - [id number] Implanted Specimen: Specimens ID Source Frozen? 1 [...] acetabulum in anteversion relative to the patien's deering acetabular version. Acetabular bone screw(s) and the final acetabular liner were placed without difficulty. The proximal femur was then exposedand we used a canal finer, lateralizer, and sequentially broached up to the appropriate size femoral component placing the femoral component in anteversion relative to the patient's deering version. A trial reduction was then performed with the appropriate templated head. We had excellent reproduction of the patient's deering limb length at both knees and the [...] of Diabetes mellitus (CMS/HCC), Hypertension, and Osteoporosis. Surgical History She has [...] Upcoming Encounters Date Type Department Care Team ([facility] Contact Info) Description 03/03/2025 1:30 PM EDT Office Visit Medical Office Building Surgery Spine & Joint [address], [address] [place] [address] Griffin Santiago MD [address] [place] [address] Pending Results Name Type Priority [...] 09/19/2023 11:36 AM EDT Hip pain, left RI TOTAL HIP ARTHROPLASTY 09/19/2023 11:03 AM EDT Hip pain, left Special Needs alfonso implants, cables POCT GLUCOSE METER UNSOLICITED RESULTS Routine 09/19/2023 9:22 AM EDT documented in this encounter Results * (ABNORMAL) POCT glucose meter (09/25/2023 12:03 PM EDT) POCT Glucose 176(H) 74 - 99 mg/dL 09/25/2023 12:05 PM EDT [facility] Comment:Accuracy of a glucos e result [...] for testing. Comment 09/25/2023 12:05 PM EDT [facility] Restaurant Maintenance Technician ID Maycol Michelle 09/25/2023 12:05 PM EDT [facility]ALTH[facility]ARE LAB Device ID [id number] 09/25/2023 12:05 PM EDT [facility] Specimen Type POC Capillary 09/25/2023 12:05 PM EDT [facility] Blood Capillary blood specimen / Unknown 09/25/2023 12:03 PM EDT 09/25/2023 12:05 PM EDT Griffin Santiago MD LAB POINT OF CARE TEST DOCKED DEVICE UNSOLICITED RESULTS Final Result Performing Organization Address City/[facility] Co de Phone Number HEALTHCARE LAB [address] [place] [address] * POCT glucose meter (09/25/2023 7:30 AM EDT) [facility] POCT Glucose 99 74 - 99 [...] Comment 09/25/2023 7:32 AM EDT [facility]ARE LAB Restaurant Maintenance Technician ID Maycol Michelle 09/25/2023 7:32 AM EDT [facility]ALTH[facility]ARE LAB Device ID [id number] 09/25/2023 7:32 AM EDT [facility] Specimen Type POC Capillary 09/25/2023 7:32 AM EDT [facility] Blood Capillary blood specimen / Unknown 09/25/2023 7:30 AM EDT 09/25/2023 7:32 AM EDT us Griffin Santiago MD LAB POINT OF CARE TEST DOCKED DEVICE UNSOLICITED RESULTS Final Result Performing Organization Address City/[facility] Co de Phone Number [facility]ALTH[facility]ARE LAB [address] [place] [address] * (ABNORMAL) Basic metabolic panel (09/25/2023 2:29 AM EDT) Pathologist [facility] Glucose, Plasma 126(H) 74 - 99 mg/dL 09/25/2023 2:59 AM EDT [facility] BUN, Plasma 27(H) 8 - 23 mg/dL 09/25/2023 2:59 AM EDT [facility] Creatinine, Plasma 0.82 0.60 - 1.10 mg/dL 09/25/2023 2:59 AM EDT [facility] BUN/Creatinine Ratio 33 09/25/2023 2:59 AM EDT [facility] Sodium, Plasma 126(L) 136 - 145 mmol/L 09/25/2023 2:59 AM EDT [facility] Potassium, Plasma 4.7 3.7 - 4.8 mmol/L 09/25/2023 2:59 AM EDT [facility] Chloride, Plasma 95(L) 97 - 107 mmol/L 09/25/2023 2:59 AM EDT [facility] CO2, Plasma 25 22 - 29 mmol/L 09/25/2023 2:59 AM EDT [facility] Anion Gap 6 6 - 16 mmol/L 09/25/2023 2:59 AM EDT [facility] Total Calcium, Plasma 8.4(L) 8.9 - 10.2 mg/dL 09/25/2023 2:59 AM EDT [facility] eGFRcr 69.8 mL/min/1.7 3m*2 09/25/2023 2:59 AM EDT [facility] Comment:Reported eGFRcr in m L/min/1.73m2 is based the CKD-EPI 2020 equation that does not use a race coefficient. Blood Venous blood specimen / Unknown Venipuncture / Unknown 09/25/2023 2:29 AM EDT 09/25/2023 2:37 AM EDT us Lucy Mcbride TRANSITION MGR RN LAB BLOOD ORDERABLES Marielle l Result [facility] [address] [place] [address] * (ABNORMAL) POCT glucose meter (09/24/2023 9:27 PM EDT) [facility] POCT Glucose 140(H) 74 - 99 mg/dL 09/24/2023 9:29 PM EDT [facility] Comment:Accuracy of a glucos e result [...] Comment 09/24/2023 9:29 PM EDT [facility]ARE [facility] Restaurant Maintenance Technician ID Nelly Keys 09/24/19 9:29 PM EDT [facility]ARE LAB Device ID [id number] 09/24/2023 9:29 PM EDT [facility] Specimen Type POC Capillary 09/24/2023 9:29 PM EDT [facility] Blood Capillary blood specimen / Unknown 09/24/2023 9:27 PM EDT 09/24/2023 9:29 PM EDT us Griffin Santiago MD LAB POINT OF CARE TEST DOCKED DEVICE UNSOLICITED RESULTS Final Result Performing Organization Address City/State/[facility] Co de Phone Number HEALTHCARE LAB [address] [place] [address] * (ABNORMAL) POCT glucose meter (09/24/2023 4:14 PM EDT) [facility] POCT Glucose 178(H) 74 - 99 mg/dL 09/24/2023 4:15 PM EDT [facility] Comment:Accuracy of a [...] for testing. Comment 09/24/2023 4:15 PM EDT [facility] Restaurant Maintenance Technician ID Diane De La Torre 09/24/2023 4:15 PM EDT [facility]ARE LAB Device ID [id number] 09/24/2023 4:15 PM EDT [facility] Specimen Type POC Capillary 09/24/2023 4:15 PM EDT [facility] Blood Capillary blood specimen / Unknown 09/24/2023 4:14 PM EDT 09/24/2023 4:15 PM EDT us Griffin Santiago MD LAB POINT OF CARE TEST DOCKED DEVICE UNSOLICITED RESULTS Final Result Performing Organization Address City/[facility] Co de Phone Number [facility]ARE [facility] [address] [place] [address] * (ABNORMAL) POCT glucose meter (09/24/2023 10:58 AM EDT) POCT Glucose 134(H) 74 - 99 mg/dL 09/24/2023 11:00 AM EDT [facility] Comment:Accuracy of a [...] for testing. Comment 09/24/2023 11:00 AM EDT [facility]ARE [facility] Restaurant Maintenance Technician ID Diane De La Torre 09/24/2023 11:00 AM EDT [facility] Device ID [id number] 09/24/2023 11:00 AM EDT [facility] Specimen Type POC Capillary 09/24/2023 11:00 AM EDT [facility] Blood Capillary blood specimen / Unknown 09/24/2023 10:58 AM EDT 09/24/2023 11:00 AM EDT us Griffin Santiago MD LAB POINT OF CARE TEST DOCKED DEVICE UNSOLICITED RESULTS Final Result Performing Organization Address City/[facility] Co de Phone Number [facility]ALTH[facility]ARE [facility] [address] [place] [address] * (ABNORMAL) CBC W/O Differential (09/24/2023 9:37 AM EDT) WBC Count 6.84 3.70 - 10.30 10*3/uL LAB HEMATOLOGY METHOD 09/24/2023 9:48 AM EDT [facility] RBC Count 2.80(L) 3.90 - 5.20 10*6/uL LAB HEMATOLOGY METHOD 09/24/2023 9:48 AM EDT [facility] HGB 7.8(L) 11.2 - 15.7 g/dL LAB HEMATOLOGY METHOD 09/24/2023 9:48 AM EDT [facility] HCT 23.7(L) 34.0 - 45.0 % LAB HEMATOLOGY METHOD 09/24/2023 9:48 AM EDT [facility] Platelet Count 319 155 - 369 10*3/uL LAB HEMATOLOGY METHOD 09/24/2023 9:48 AM EDT [facility] MCV 85 79 - 98 fL LAB HEMATOLOGY METHOD 09/24/2023 9:48 AM EDT [facility] MCH 27.9 26.0 - 32.0 pg LAB HEMATOLOGY METHOD 09/24/2023 9:48 AM EDT [facility] MCHC 32.9 30.7 - 35.5 g/dL LAB HEMATOLOGY METHOD 09/24/2023 9:48 AM EDT [facility] RDW 16.6(H) 11.5 - 14.5 % LAB HEMATOLOGY METHOD 09/24/2023 9:48 AM EDT [facility] MPV 8.7(L) 8.8 - 12.5 fL LAB HEMATOLOGY METHOD 09/24/2023 9:48 AM EDT [facility] nRBC 0.0 <=0.0 per 100 WBCs LAB HEMATOLOGY METHOD 09/24/2023 9:48 AM EDT [facility] Blood Venous blood specimen / Unknown Venipuncture / Unknown 09/24/2023 9:37 AM EDT 09/24/2023 9:42 AM EDT us Karime Oviedo APRN LAB BLOOD ORDERABLES Final Re sult [facility] [address] [place] [id number] * Phosphorus, Plasma (09/24/2023 1:56 AM EDT) [facility] Phosphorus, Plasma 3.5 2.5 - 4.5 mg/dL 09/24/2023 2:29 AM EDT [facility] Blood Venous blood specimen / Unknown Venipuncture / Unknown 09/24/2023 1:56 AM EDT 09/24/2023 2:04 AM EDT Citlalli Mcmahon PA LAB BLOOD ORDERABLES Final Res ult [facility] [address] [place] [address] * (ABNORMAL) Magnesium, Plasma (09/24/2023 1:56 AM EDT) Pathologist [facility] Magnesium, Plasma 1.7(L) 1.9 - 2.4 mg/dL 09/24/2023 2:29 AM EDT [facility] Blood Venous blood specimen / Unknown Venipuncture / Unknown 09/24/2023 1:56 AM EDT 09/24/2023 2:04 AM EDT [facility] LEMON LAB BLOOD ORDERABLES Final Res ult Performing Organization Address City/[facility] Co de Phone Number [facility]ALTH[facility]ARE [facility] [address] [place] [address] * (ABNORMAL) Basic Metabolic Panel, Plasma (09/24/2023 1:56 AM EDT) Pathologist [facility] Glucose, Plasma 132(H) 74 - 99 mg/dL 09/24/2023 2:29 AM EDT [facility] BUN, Plasma 35(H) 8 - 23 mg/dL 09/24/2023 2:29 AM EDT [facility]ALTH[facility] Creatinine, Plasma 0.90 0.60 - 1.10 mg/dL 09/24/2023 2:29 AM EDT [facility] BUN/Creatinine Ratio 39 09/24/2023 2:29 AM EDT [facility] Sodium, Plasma 126(L) 136 - 145 mmol/L 09/24/2023 2:29 AM EDT [facility] Potassium, Plasma 5.1(H) 3.7 - 4.8 mmol/L 09/24/2023 2:29 AM EDT [facility] Chloride, Plasma 96(L) 97 - 107 mmol/L 09/24/2023 2:29 AM EDT [facility] CO2, Plasma 25 22 - 29 mmol/L 09/24/2023 2:29 AM EDT [facility] Anion Gap 5(L) 6 - 16 mmol/L 09/24/2023 2:29 AM EDT [facility] Total Calcium, Plasma 8.7(L) 8.9 - 10.2 mg/dL 09/24/2023 2:29 AM EDT [facility] eGFRcr 62.4 mL/min/1.7 3m*2 09/24/2023 2:29 AM EDT [facility] Comment:Reported eGFRcr in m L/min/1.73m2 is based the CKD-EPI 2020 equation that does not use a race coefficient. Blood Venous blood specimen / Unknown Venipuncture / Unknown 09/24/2023 1:56 AM EDT 09/24/2023 2:04 AM EDT us Citlalli LEMON LAB BLOOD ORDERABLES Final Res ult Performing Organization Address City/[facility]/ZIP Co de Phone Number [facility] [address] [place] [address] * (ABNORMAL) POCT glucose meter (09/23/2023 8:32 PM EDT) POCT Glucose 172(H) 74 - 99 mg/dL 09/23/2023 8:34 PM EDT [facility] Comment:Accuracy of a glucos e result [...] for testing. Comment 09/23/2023 8:34 PM EDT [facility] Restaurant Maintenance Technician ID Maycol Michelle 09/23/2023 8:34 PM EDT [facility] Device ID [id number] 09/23/2023 8:34 PM EDT [facility] Specimen Type POC Capillary 09/23/2023 8:34 PM EDT [facility] Blood Capillary blood specimen / Unknown 09/23/2023 8:32 PM EDT 09/23/2023 8:34 PM EDT Griffin Santiago MD LAB POINT OF CARE TEST DOCKED DEVICE UNSOLICITED RESULTS Final Result Performing Organization Address City/[facility]/ZIP Co de Phone Number [facility] [address] [place] [address] * (ABNORMAL) POCT glucose meter (09/23/2023 4:36 PM EDT) [facility] POCT Glucose 137(H) 74 - 99 [...] 09/23/2023 4:37 PM EDT [facility] Restaurant Maintenance Technician ID Maycol Michelle 09/23/2023 4:37 PM EDT [facility] Device ID [id number] 09/23/2023 4:37 PM EDT [facility] Specimen Type POC Capillary 09/23/2023 4:37 PM EDT [facility] Blood Capillary blood specimen / Unknown 09/23/2023 4:36 PM EDT 09/23/2023 4:37 PM EDT Griffin Santiago MD LAB POINT OF CARE TEST DOCKED DEVICE UNSOLICITED RESULTS Final Result Performing Organization Address City/State/[facility] Co de Phone Number [facility]ARE LAB [address] [place] [address] * (ABNORMAL) POCT glucose meter (09/23/2023 11:31 AM EDT) [facility] POCT Glucose 140(H) 74 - 99 mg/dL 09/23/2023 11:38 AM EDT [facility] Comment:Accuracy of [...] for testing. Comment 09/23/2023 11:38 AM EDT [facility] Restaurant Maintenance Technician ID Maycol Michelle 09/23/2023 11:38 AM EDT [facility] Device ID [id number] 09/23/2023 11:38 AM EDT [facility] Specimen Type POC Capillary 09/23/2023 11:38 AM EDT [facility] Blood Capillary blood specimen / Unknown 09/23/2023 11:31 AM EDT 09/23/2023 11:38 AM EDT Griffin Santiago MD LAB POINT OF CARE TEST DOCKED DEVICE UNSOLICITED RESULTS Final Result Performing Organization Address [facility] Co de Phone Number [facility]ARE [facility] [address] [place] [address] * (ABNORMAL) POCT glucose meter (09/23/2023 7:31 AM EDT) Pathologist [facility] POCT Glucose 103(H) 74 - 99 mg/dL [...] for testing. Comment 09/23/2023 7:41 AM EDT [facility] Restaurant Maintenance Technician ID Maycol Michelle 09/23/2023 7:41 AM EDT [facility] Device ID [id number] 09/23/2023 7:41 AM EDT [facility] Specimen Type POC Capillary 09/23/2023 7:41 AM EDT [facility] Blood Capillary blood specimen / Unknown 09/23/2023 7:31 AM EDT 09/23/2023 7:41 AM EDT Griffin Santiago MD LAB POINT OF CARE TEST DOCKED DEVICE UNSOLICITED RESULTS Final Result Performing Organization Address City/[facility] Co de Phone Number [facility] [address] [place] [address] * (ABNORMAL) CBC W/O Differential (09/23/2023 3:41 AM EDT) WBC Count 6.72 3.70 - 10.30 10*3/uL LAB HEMATOLOGY METHOD 09/23/2023 4:06 AM EDT [facility] RBC Count 2.69(L) 3.90 - 5.20 10*6/uL LAB HEMATOLOGY METHOD 09/23/2023 4:06 AM EDT [facility] HGB 7.6(L) 11.2 - 15.7 g/dL LAB HEMATOLOGY METHOD 09/23/2023 4:06 AM EDT [facility] HCT 22.4(L) 34.0 - 45.0 % LAB HEMATOLOGY METHOD 09/23/2023 4:06 AM EDT [facility] Platelet Count 273 155 - 369 10*3/uL LAB HEMATOLOGY METHOD 09/23/2023 4:06 AM EDT [facility] MCV 83 79 - 98 fL LAB HEMATOLOGY METHOD 09/23/2023 4:06 AM EDT [facility] MCH 28.3 26.0 - 32.0 pg LAB HEMATOLOGY METHOD 09/23/2023 4:06 AM EDT [facility] MCHC 33.9 30.7 - 35.5 g/dL LAB HEMATOLOGY METHOD 09/23/2023 4:06 AM EDT [facility] RDW 16.4(H) 11.5 - 14.5 % LAB HEMATOLOGY METHOD 09/23/2023 4:06 AM EDT [facility] MPV 9.1 8.8 - 12.5 fL LAB HEMATOLOGY METHOD 09/23/2023 4:06 AM EDT [facility] nRBC 0.0 <=0.0 per 100 WBCs LAB HEMATOLOGY METHOD 09/23/2023 4:06 AM EDT [facility] Blood Venous blood specimen / Unknown Venipuncture / Unknown 09/23/2023 3:41 AM EDT 09/23/2023 4:04 AM EDT us Citlalli LEMON LAB BLOOD ORDERABLES Final Res ult [facility] [address] [place] [address] * (ABNORMAL) Basic Metabolic Panel, Plasma (09/23/2023 3:41 AM EDT) [facility] Glucose, Plasma 106(H) 74 - 99 mg/dL 09/23/2023 4:50 AM EDT [facility] BUN, Plasma 34(H) 8 - 23 mg/dL 09/23/2023 4:50 AM EDT [facility] Creatinine, Plasma 0.93 0.60 - 1.10 mg/dL 09/23/2023 4:50 AM EDT [facility] BUN/Creatinine Ratio 37 09/23/2023 4:50 AM EDT [facility]ALTH[facility] Sodium, Plasma 128(L) 136 - 145 mmol/L 09/23/2023 4:50 AM EDT [facility] Potassium, Plasma 5.3(H) 3.7 - 4.8 mmol/L 09/23/2023 4:50 AM EDT [facility] Chloride, Plasma 97 97 - 107 mmol/L 09/23/2023 4:50 AM EDT [facility] CO2, Plasma 24 22 - 29 mmol/L 09/23/2023 4:50 AM EDT [facility] Anion Gap 7 6 - 16 mmol/L 09/23/2023 4:50 AM EDT [facility] Total Calcium, Plasma 8.9 8.9 - 10.2 mg/dL 09/23/2023 4:50 AM EDT [facility] eGFRcr 60.0 mL/min/1.7 3m*2 09/23/2023 4:50 AM EDT [facility] Comment:Reported eGFRcr in m L/min/1.73m2 is based the CKD-EPI 2020 equation that does not use a race coefficient. Blood Venous blood specimen / Unknown Venipuncture / Unknown 09/23/2023 3:41 AM EDT 09/23/2023 4:04 AM EDT us Citlalli LEMON LAB BLOOD ORDERABLES Final Res ult [facility] [address] [place] [id number] * (ABNORMAL) POCT glucose meter (09/22/2023 7:45 PM EDT) POCT Glucose 148(H) 74 - 99 mg/dL [...] Comment 09/22/2023 7:46 PM EDT [facility] Restaurant Maintenance Technician ID Lida Gonzalez 09/22/2023 7:46 PM EDT [facility] Device ID [id number] 09/22/2023 7:46 PM EDT [facility] Specimen Type POC Capillary 09/22/2023 7:46 PM EDT [facility] Blood Capillary blood specimen / Unknown 09/22/2023 7:45 PM EDT 09/22/2023 7:46 PM EDT us Griffin Santiago MD LAB POINT OF CARE TEST DOCKED DEVICE UNSOLICITED RESULTS Final Result Performing Organization Address [facility] de Phone Number [facility] [address] [place] [address] * (ABNORMAL) POCT glucose meter (09/22/2023 4:52 PM EDT) POCT Glucose 134(H) 74 - 99 mg/dL 09/22/2023 4:53 PM EDT [facility] Comment:Accuracy of a [...] for testing. Comment 09/22/2023 4:53 PM EDT [facility] Restaurant Maintenance Technician ID Alma Real 09/22/19 4:53 PM EDT [facility]ALTH[facility]ARE LAB Device ID [id number] 09/22/2023 4:53 PM EDT [facility] Specimen Type POC Capillary 09/22/2023 4:53 PM EDT [facility] Blood Capillary blood specimen / Unknown 09/22/2023 4:52 PM EDT 09/22/2023 4:53 PM EDT Griffin Santiago MD LAB POINT OF CARE TEST DOCKED DEVICE UNSOLICITED RESULTS Final Result Performing Organization Address City/[facility] Co de Phone Number [facility] [address] [place] [address] * (ABNORMAL) POCT glucose meter (09/22/2023 11:39 AM EDT) POCT Glucose 139(H) 74 - 99 mg/dL 09/22/2023 11:41 AM EDT [facility] Comment:Accuracy of a [...] Comment 09/22/2023 11:41 AM EDT [facility] Restaurant Maintenance Technician ID Alma Real 09/22/19 11:41 AM EDT [facility] Device ID [id number] 09/22/2023 11:41 AM EDT [facility] [facility] Specimen Type POC Capillary 09/22/2023 11:41 AM EDT [facility] Blood Capillary blood specimen / Unknown 09/22/2023 11:39 AM EDT 09/22/2023 11:41 AM EDT us Griffin Santiago MD LAB POINT OF CARE TEST DOCKED DEVICE UNSOLICITED RESULTS Final Result Performing Organization Address City/State/[facility] Phone Number [facility]ARE [facility] [address] [place] [address] * (ABNORMAL) Basic metabolic panel (09/22/2023 10:15 AM EDT) Glucose, Plasma 146(H) 74 - 99 mg/dL 09/22/2023 10:48 AM EDT [facility] BUN, Plasma 32(H) 8 - 23 mg/dL 09/22/2023 10:48 AM EDT [facility] Creatinine, Plasma 0.93 0.60 - 1.10 mg/dL 09/22/2023 10:48 AM EDT [facility] BUN/Creatinine Ratio 34 09/22/2023 10:48 AM EDT [facility] Sodium, Plasma 126(L) 136 - 145 mmol/L 09/22/2023 10:48 AM EDT [facility] Potassium, Plasma 4.8 3.7 - 4.8 mmol/L 09/22/2023 10:48 AM EDT [facility] Chloride, Plasma 95(L) 97 - 107 mmol/L 09/22/2023 10:48 AM EDT [facility] CO2, Plasma 23 22 - 29 mmol/L 09/22/2023 10:48 AM EDT [facility] Anion Gap 8 6 - 16 mmol/L 09/22/2023 10:48 AM EDT [facility] Total Calcium, Plasma 8.8(L) 8.9 - 10.2 mg/dL 09/22/2023 10:48 AM EDT [facility] eGFRcr 60.0 mL/min/1.7 3m*2 09/22/2023 10:48 AM EDT [facility] Comment:Reported eGFRcr in m L/min/1.73m2 is based the CKD-EPI 2020 equation that does not use a race coefficient. Blood Venous blood specimen / Unknown Venipuncture / Unknown 09/22/2023 10:15 AM EDT 09/22/2023 10:23 AM EDT Citlalli LEMON LAB BLOOD ORDERABLES Final Res ult [facility] [address] [place] [address] * (ABNORMAL) POCT glucose meter (09/22/2023 7:57 AM EDT) [facility] POCT Glucose 100(H) 74 - 99 mg/dL [...] Comment 09/22/2023 7:59 AM EDT [facility]ALTHCARE [facility] Restaurant Maintenance Technician ID Alma Real 09/22/19 7:59 AM EDT [facility] Device ID [id number] 09/22/2023 7:59 AM EDT [facility] Specimen Type POC Capillary 09/22/2023 7:59 AM EDT [facility] Blood Capillary blood specimen / Unknown 09/22/2023 7:57 AM EDT 09/22/2023 7:59 AM EDT Griffin Santiago MD LAB POINT OF CARE TEST DOCKED DEVICE UNSOLICITED RESULTS Final Result [facility] [address] [place] [address] * (ABNORMAL) Basic Metabolic Panel, Plasma (09/22/2023 3:13 AM EDT) Pathologist [facility] Glucose, Plasma 114(H) 74 - 99 mg/dL 09/22/2023 4:13 AM EDT [facility] BUN, Plasma 34(H) 8 - 23 mg/dL 09/22/2023 4:13 AM EDT [facility] Creatinine, Plasma 1.01 0.60 - 1.10 mg/dL 09/22/2023 4:13 AM EDT [facility] BUN/Creatinine Ratio 34 09/22/2023 4:13 AM EDT [facility] Sodium, Plasma 124(L) 136 - 145 mmol/L 09/22/2023 4:13 AM EDT [facility] Potassium, Plasma 4.8 3.7 - 4.8 mmol/L 09/22/2023 4:13 AM EDT [facility] Chloride, Plasma 93(L) 97 - 107 mmol/L 09/22/2023 4:13 AM EDT [facility] CO2, Plasma 23 22 - 29 mmol/L 09/22/2023 4:13 AM EDT [facility] Anion Gap 8 6 - 16 mmol/L 09/22/2023 4:13 AM EDT [facility] Total Calcium, Plasma 8.6(L) 8.9 - 10.2 mg/dL 09/22/2023 4:13 AM EDT [facility] eGFRcr 54.3 mL/min/1.7 3m*2 09/22/2023 4:13 AM EDT [facility] Comment:Reported eGFRcr in m L/min/1.73m2 is based the CKD-EPI 2020 equation that does not use a race coefficient. Blood Venous blood specimen / Unknown Venipuncture / Unknown 09/22/2023 3:13 AM EDT 09/22/2023 3:40 AM EDT us Citlalli LEMON LAB BLOOD ORDERABLES Final Res ult [facility] [address] [place] [address] * (ABNORMAL) CBC W/O Differential (09/22/2023 3:13 AM EDT) WBC Count 6.77 3.70 - 10.30 10*3/uL LAB HEMATOLOGY METHOD 09/22/2023 3:43 AM EDT [facility] RBC Count 2.81(L) 3.90 - 5.20 10*6/uL LAB HEMATOLOGY METHOD 09/22/2023 3:43 AM EDT [facility] HGB 7.8(L) 11.2 - 15.7 g/dL LAB HEMATOLOGY METHOD 09/22/2023 3:43 AM EDT [facility] HCT 23.1(L) 34.0 - 45.0 % LAB HEMATOLOGY METHOD 09/22/2023 3:43 AM EDT [facility] Platelet Count 240 155 - 369 10*3/uL LAB HEMATOLOGY METHOD 09/22/2023 3:43 AM EDT [facility] MCV 82 79 - 98 fL LAB HEMATOLOGY METHOD 09/22/2023 3:43 AM EDT [facility] MCH 27.8 26.0 - 32.0 pg LAB HEMATOLOGY METHOD 09/22/2023 3:43 AM EDT [facility] MCHC 33.8 30.7 - 35.5 g/dL LAB HEMATOLOGY METHOD 09/22/2023 3:43 AM EDT [facility] RDW 16.1(H) 11.5 - 14.5 % LAB HEMATOLOGY METHOD 09/22/2023 3:43 AM EDT [facility] MPV 9.4 8.8 - 12.5 fL LAB HEMATOLOGY METHOD 09/22/2023 3:43 AM EDT [facility] nRBC 0.0 <=0.0 per 100 WBCs LAB HEMATOLOGY METHOD 09/22/2023 3:43 AM EDT [facility] Blood Venous blood specimen / Unknown Venipuncture / Unknown 09/22/2023 3:13 AM EDT 09/22/2023 3:41 AM EDT us Citlalli LEMON LAB BLOOD ORDERABLES Final Res ult Performing Organization Address City/[facility] Co de Phone Number [facility]ALTHCARE [facility] [address] [place] [address] * (ABNORMAL) POCT glucose meter (09/21/2023 7:41 PM EDT) POCT Glucose 189(H) 74 - 99 mg/dL 09/21/2023 7:47 PM EDT [facility] Comment:Accuracy of a [...] for testing. Comment 09/21/2023 7:47 PM EDT [facility] Restaurant Maintenance Technician ID Consuelo Bone 09/21/2023 7:47 PM EDT [facility] Device ID [id number] 09/21/2023 7:47 PM EDT [facility] Specimen Type POC Capillary 09/21/2023 7:47 PM EDT [facility] Blood Capillary blood specimen / Unknown 09/21/2023 7:41 PM EDT 09/21/2023 7:47 PM EDT us Griffin Santiago MD LAB POINT OF CARE TEST DOCKED DEVICE UNSOLICITED RESULTS Final Result Performing Organization Address City/[facility] Co de Phone Number [facility] [address] [place] [address] * (ABNORMAL) POCT glucose meter (09/21/2023 4:30 PM EDT) POCT Glucose 137(H) 74 - 99 mg/dL [...] for testing. Comment 09/21/2023 4:31 PM EDT [facility] Restaurant Maintenance Technician ID Germania Prajapati 09/21/2023 4:31 PM EDT [facility] Device ID [id number] 09/21/2023 4:31 PM EDT [facility] Specimen Type POC Capillary 09/21/2023 4:31 PM EDT [facility] Blood Capillary blood specimen / Unknown 09/21/2023 4:30 PM EDT 09/21/2023 4:31 PM EDT us Griffin Santiago MD LAB POINT OF CARE TEST DOCKED DEVICE UNSOLICITED RESULTS Final Result Performing Organization Address City/State/[facility] Co de Phone Number [facility] [address] [place] [address] * (ABNORMAL) Basic metabolic panel (09/21/2023 2:33 PM EDT) Glucose, Plasma 139(H) 74 - 99 mg/dL 09/21/2023 2:58 PM EDT [facility] BUN, Plasma 34(H) 8 - 23 mg/dL 09/21/2023 2:58 PM EDT [facility] Creatinine, Plasma 1.04 0.60 - 1.10 mg/dL 09/21/2023 2:58 PM EDT [facility] BUN/Creatinine Ratio 33 09/21/2023 2:58 PM EDT [facility] Sodium, Plasma 123(L) 136 - 145 mmol/L 09/21/2023 2:58 PM EDT [facility] Potassium, Plasma 4.9(H) 3.7 - 4.8 mmol/L 09/21/2023 2:58 PM EDT [facility] Chloride, Plasma 91(L) 97 - 107 mmol/L 09/21/2023 2:58 PM EDT [facility] CO2, Plasma 22 22 - 29 mmol/L 09/21/2023 2:58 PM EDT [facility] Anion Gap 10 6 - 16 mmol/L 09/21/2023 2:58 PM EDT [facility] Total Calcium, Plasma 8.6(L) 8.9 - 10.2 mg/dL 09/21/2023 2:58 PM EDT [facility] eGFRcr 52.5 mL/min/1.7 3m*2 09/21/2023 2:58 PM EDT [facility] Comment:Reported eGFRcr in m L/min/1.73m2 is based the CKD-EPI 2020 equation that does not use a race coefficient. Blood Venous blood specimen / Unknown Venipuncture / Unknown 09/21/2023 2:33 PM EDT 09/21/2023 2:36 PM EDT Citlalli Mcmahon PA LAB BLOOD ORDERABLES Final Res ult [facility] [address] [place] [address] * Transfuse RBC (09/21/2023 1:22 PM EDT) Karime Oviedo APRN BLOOD TRANSFUSION ORDERABLES Final Result * Transfuse RBC: 1 Units (09/21/2023 1:22 PM EDT) Karime Oviedo APRN BLOOD TRANSFUSION ORDERABLES Final Result * (ABNORMAL) POCT glucose meter (09/21/2023 12:01 PM EDT) [facility] POCT Glucose 131(H) 74 - 99 mg/dL [...] for testing. Comment 09/21/2023 12:02 PM EDT [facility] Restaurant Maintenance Technician ID Alma Real 09/21/19 12:02 PM EDT [facility] Device ID [id number] 09/21/2023 12:02 PM EDT [facility] Specimen Type POC Capillary 09/21/2023 12:02 PM EDT [facility] Blood Capillary blood specimen / Unknown 09/21/2023 12:01 PM EDT 09/21/2023 12:02 PM EDT us Griffin Santiago MD LAB POINT OF CARE TEST DOCKED DEVICE UNSOLICITED RESULTS Final Result Performing Organization Address [facility] Co de Phone Number [facility] [address] [place] [address] * Osmolality, Urine (09/21/2023 11:40 AM EDT) Osmolality, Urine 346 50 - 1,200 mOsm/kg 09/21/2023 4:40 PM EDT [facility] Urine Urine specimen obtained by clean catch procedure / Unknown Non-blood Collection / Unknown 09/21/2023 11:40 AM EDT 09/21/2023 11:47 AM EDT us Citlalli LEMON LAB URINE ORDERABLES Final Res ult Performing Organization Address [facility] de Phone Number [facility]ARE [facility] [address] [place] [address] * Urinalysis Microscopic Examination (09/21/2023 11:40 AM EDT) Urine Urine specimen obtained by clean catch procedure / Unknown Non-blood Collection / Unknown 09/21/2023 11:40 AM EDT 09/21/2023 11:47 AM EDT us Citlalli LEMON LAB URINE ORDERABLES Final Res ult Performing Organization Address [facility] de Phone Number [facility] [address] [place] [address] * Protein, Random, Urine with Creatinine (09/21/2023 11:40 AM EDT) Protein, Urine 7 mg/dL 09/21/2023 12:14 PM EDT [facility] Creatinine, Urine 48 mg/dL 09/21/2023 12:14 PM EDT [facility] Protein/Creati nine Ratio 0.1 mg/mg Creat 09/21/2023 12:14 PM EDT [facility] Urine Urine specimen obtained by clean catch procedure / Unknown Non-blood Collection / Unknown 09/21/2023 11:40 AM EDT 09/21/2023 11:47 AM EDT us Citlalli LEMON LAB URINE ORDERABLES Final Res ult [facility] [address] [place] [address] * (ABNORMAL) Urinalysis with reflex microscopic (Culture NOT Included) (09/21/2023 11:40 AM EDT) Color, Urine Yellow LAB URINALYSIS - AUTOMATED METHOD 09/21/2023 12:10 PM EDT [facility] Clarity, Urine Clear LAB URINALYSIS - AUTOMATED METHOD 09/21/2023 12:10 PM EDT [facility] Spec Freeman, Urine 1.016 <=1.005 to >=1.030 LAB URINALYSIS - AUTOMATED METHOD 09/21/2023 12:10 PM EDT [facility] pH, Urine 5.5 4.5 to 8 LAB URINALYSIS - AUTOMATED METHOD 09/21/2023 12:10 PM EDT [facility] Protein, Urine Negative Negative mg/dL LAB URINALYSIS - AUTOMATED METHOD 09/21/2023 12:10 PM EDT [facility] Glucose, Urine Negative Negative mg/dL LAB URINALYSIS - AUTOMATED METHOD 09/21/2023 12:10 PM EDT [facility] Ketones, Urine Negative Negative mg/dL LAB URINALYSIS - AUTOMATED METHOD 09/21/2023 12:10 PM EDT [facility] Blood, Urine Negative Negative LAB URINALYSIS - AUTOMATED METHOD 09/21/2023 12:10 PM EDT [facility] Bilirubin, Urine Negative Negative LAB URINALYSIS - AUTOMATED METHOD 09/21/2023 12:10 PM EDT [facility] Urobilinogen, Urine 0.2 0.2 to 1.0 mg/dL LAB URINALYSIS - AUTOMATED METHOD 09/21/2023 12:10 PM EDT [facility] Leukocytes, Urine Trace(A) Negative LAB URINALYSIS - AUTOMATED METHOD 09/21/2023 12:10 PM EDT [facility] Nitrite, Urine Negative Negative LAB URINALYSIS - AUTOMATED METHOD 09/21/2023 12:10 PM EDT [facility] RBC, Urine <1 0 to 3 /HPF 09/21/2023 12:10 PM EDT [facility] Comment:This result was prev iously suppressed from the chart. WBC, Urine 0 - 5 0 to 5 /HPF 09/21/2023 12:10 PM EDT [facility] Comment:This result was prev iously suppressed from the chart. Squamous Epithelial Cells 3 - 5 0 to 5 /HPF 09/21/2023 12:10 PM EDT [facility] Comment:This result was prev iously suppressed from the chart. Hyaline Casts 0 - 2 0 to 5 /LPF 09/21/2023 12:10 PM EDT [facility] Comment:This result was prev iously suppressed from the chart. Bacteria, Urine Negative Negative 09/21/2023 12:10 PM EDT [facility] Comment:This result was prev iously suppressed from the chart. Urine Urine specimen obtained by clean catch procedure / Unknown Non-blood Collection / Unknown 09/21/2023 11:40 AM EDT 09/21/2023 11:47 AM EDT Narrative HEALTHCARE LAB - 09/21/2023 12:10 PM EDT Performed by manual method Ciltalli Mcmahon [employer] LAB URINE ORDERABLES Final Res ult Performing Organization Address City/[facility] Co de Phone Number [facility] [address] [place] [address] * Urea Nitrogen, Random Urine (09/21/2023 11:40 AM EDT) Urea Nitrogen, Urine 575 mg/dL 09/21/2023 1:24 PM EDT [facility] Urine Urine specimen obtained by clean catch procedure / Unknown Non-blood Collection / Unknown 09/21/2023 11:40 AM EDT 09/21/2023 11:46 AM EDT Citlallijamal Mcmahon PA LAB URINE ORDERABLES Final Res ult Performing Organization Address City/[facility] Co de Phone Number [facility] [address] [place] [address] * Sodium, urine, random (09/21/2023 11:40 AM EDT) Sodium, Urine 31 mmol/L 09/21/2023 12:14 PM EDT [facility] Urine Urine specimen obtained by clean catch procedure / Unknown Non-blood Collection / Unknown 09/21/2023 11:40 AM EDT 09/21/2023 11:47 AM EDT Karan Montaño TRANSITION MGR RN LAB URINE ORDERABLES Final Result Performing Organization Address [facility] de Phone Number [facility]ARE [facility] [address] [place] [address] * Osmolality, urine (09/21/2023 11:40 AM EDT) Pathologist [facility] Osmolality, Urine 346 50 - 1,200 mOsm/kg 09/21/2023 1:32 PM EDT [facility] Urine Urine specimen obtained by clean catch procedure / Unknown Non-blood Collection / Unknown 09/21/2023 11:40 AM EDT 09/21/2023 11:46 AM EDT Karan Montaño TRANSITION MGR RN LAB URINE ORDERABLES Final Result Performing Organization Address [facility] Phone Number [facility] [address] [place] [address] * (ABNORMAL) POCT glucose meter (09/21/2023 8:06 AM EDT) [facility] POCT Glucose 137(H) 74 - 99 mg/dL 09/21/2023 8:08 AM EDT [facility] Comment:Accuracy of [...] Comment 09/21/2023 8:08 AM EDT [facility] Restaurant Maintenance Technician ID Alma Real 09/21/19 8:08 AM EDT [facility]ALTH[facility] Device ID [id number] 09/21/2023 8:08 AM EDT [facility] Specimen Type POC Capillary 09/21/2023 8:08 AM EDT [facility] Blood Capillary blood specimen / Unknown 09/21/2023 8:06 AM EDT 09/21/2023 8:08 AM EDT us Griffin Santiago MD LAB POINT OF CARE TEST DOCKED DEVICE UNSOLICITED RESULTS Final Result Performing Organization Address City/[facility]/ZIP Co de Phone Number [facility]ARE [facility] [address] [place] [address] * Prepare Leukocyte Reduced RBC: 1 Units (09/21/2023 6:10 AM EDT) Product Code [id number] BLOO D BANK Dispense Status Transfused BLOOD BANK Blood Expiration Date [id number] BLOOD BANK Unit Number [id number] GS [id number] LOOD BANK Product Blood Type 7300 BLOOD BANK Blood Type B+ BLOOD BANK [employer]atible BLOOD BANK Other us Karime Oviedo LANDY BLOOD BANK PRODUCT ORDERABLES Final Result Performing Organization Address [facility] Co de Phone Number BLOOD BANK [address] * Magnesium, Plasma (09/21/2023 2:43 AM EDT) Magnesium, Plasma 1.9 1.9 - 2.4 mg/dL 09/21/2023 3:10 AM EDT [facility] Blood Venous blood specimen / Unknown Venipuncture / Unknown 09/21/2023 2:43 AM EDT 09/21/2023 2:47 AM EDT [facility]ON LAB BLOOD ORDERABLES Final Res ult Performing Organization Address City/[facility]/ZIP Co de Phone Number [facility] [address] [place] [address] * (ABNORMAL) Basic Metabolic Panel, Plasma (09/21/2023 2:43 AM EDT) Glucose, Plasma 121(H) 74 - 99 mg/dL 09/21/2023 3:10 AM EDT [facility] BUN, Plasma 31(H) 8 - 23 mg/dL 09/21/2023 3:10 AM EDT [facility] Creatinine, Plasma 1.23(H) 0.60 - 1.10 mg/dL 09/21/2023 3:10 AM EDT [facility] BUN/Creatinine Ratio 25 09/21/2023 3:10 AM EDT [facility] Sodium, Plasma 125(L) 136 - 145 mmol/L 09/21/2023 3:10 AM EDT [facility] Potassium, Plasma 5.2(H) 3.7 - 4.8 mmol/L 09/21/2023 3:10 AM EDT [facility] Chloride, Plasma 93(L) 97 - 107 mmol/L 09/21/2023 3:10 AM EDT [facility] CO2, Plasma 23 22 - 29 mmol/L 09/21/2023 3:10 AM EDT [facility] Anion Gap 9 6 - 16 mmol/L 09/21/2023 3:10 AM EDT [facility] Total Calcium, Plasma 8.6(L) 8.9 - 10.2 mg/dL 09/21/2023 3:10 AM EDT [facility] eGFRcr 42.9 mL/min/1.7 3m*2 09/21/2023 3:10 AM EDT [facility] Comment:Reported eGFRcr in m L/min/1.73m2 is based the CKD-EPI 2020 equation that does not use a race coefficient. Blood Venous blood specimen / Unknown Venipuncture / Unknown 09/21/2023 2:43 AM EDT 09/21/2023 2:47 AM EDT us Citlalli LEMON LAB BLOOD ORDERABLES Final Res ult [facility] [address] [place] [id number] * (ABNORMAL) CBC W/O Differential (09/21/2023 2:43 AM EDT) WBC Count 7.20 3.70 - 10.30 10*3/uL LAB HEMATOLOGY METHOD 09/21/2023 2:49 AM EDT [facility] RBC Count 2.63(L) 3.90 - 5.20 10*6/uL LAB HEMATOLOGY METHOD 09/21/2023 2:49 AM EDT [facility] HGB 7.0(L) 11.2 - 15.7 g/dL LAB HEMATOLOGY METHOD 09/21/2023 2:49 AM EDT [facility] HCT 21.5(L) 34.0 - 45.0 % LAB HEMATOLOGY METHOD 09/21/2023 2:49 AM EDT [facility] Platelet Count 262 155 - 369 10*3/uL LAB HEMATOLOGY METHOD 09/21/2023 2:49 AM EDT [facility] MCV 82 79 - 98 fL LAB HEMATOLOGY METHOD 09/21/2023 2:49 AM EDT [facility] MCH 26.6 26.0 - 32.0 pg LAB HEMATOLOGY METHOD 09/21/2023 2:49 AM EDT [facility] MCHC 32.6 30.7 - 35.5 g/dL LAB HEMATOLOGY METHOD 09/21/2023 2:49 AM EDT [facility] RDW 16.0(H) 11.5 - 14.5 % LAB HEMATOLOGY METHOD 09/21/2023 2:49 AM EDT [facility] MPV 9.4 8.8 - 12.5 fL LAB HEMATOLOGY METHOD 09/21/2023 2:49 AM EDT [facility] nRBC 0.0 <=0.0 per 100 WBCs LAB HEMATOLOGY METHOD 09/21/2023 2:49 AM EDT [facility] Blood Venous blood specimen / Unknown Venipuncture / Unknown 09/21/2023 2:43 AM EDT 09/21/2023 2:47 AM EDT us Karime Oviedo TRANSITION MGR RN LAB BLOOD ORDERABLES Final Re sult [facility] [address] [place] [id number] * (ABNORMAL) POCT glucose meter (09/20/2023 8:05 PM EDT) [facility] POCT Glucose 214(H) 74 - 99 mg/dL 09/20/2023 8:06 PM EDT [facility] Comment:Accuracy of [...] Comment 09/20/2023 8:06 PM EDT [facility] LAB Restaurant Maintenance Technician ID Nina Maravilla 8:06 PM EDT [facility] Device ID [id number] 09/20/2023 8:06 PM EDT [facility] Specimen Type POC Capillary 09/20/2023 8:06 PM EDT [facility] Blood Capillary blood specimen / Unknown 09/20/2023 8:05 PM EDT 09/20/2023 8:06 PM EDT Griffin Santiago MD LAB POINT OF CARE TEST DOCKED DEVICE UNSOLICITED RESULTS Final Result Performing Organization Address [facility] Co de Phone Number [facility]ARE [facility] [address] [place] [address] * (ABNORMAL) POCT glucose meter (09/20/2023 4:35 PM EDT) [facility] POCT Glucose 137(H) 74 - 99 mg/dL 09/20/2023 4:37 PM EDT [facility] Comment:Accuracy of a [...] Comment 09/20/2023 4:37 PM EDT [facility] Restaurant Maintenance Technician ID Alma Real 09/20/19 24 4:37 PM EDT [facility] Device ID [id number] 09/20/2023 4:37 PM EDT [facility] Specimen Type POC Capillary 09/20/2023 4:37 PM EDT [facility] Blood Capillary blood specimen / Unknown 09/20/2023 4:35 PM EDT 09/20/2023 4:37 PM EDT Griffin Santiago MD LAB POINT OF CARE TEST DOCKED DEVICE UNSOLICITED RESULTS Final Result Performing Organization Address City/[facility]/ZIP Co de Phone Number [facility] [address] [place] [address] * (ABNORMAL) POCT glucose meter (09/20/2023 11:32 AM EDT) POCT Glucose 164(H) 74 - 99 mg/dL [...] for testing. Comment 09/20/2023 11:34 AM EDT [facility] Restaurant Maintenance Technician ID Alma Real 09/20/19 11:34 AM EDT [facility]ALTH[facility] LAB Device ID [id number] 09/20/2023 11:34 AM EDT [facility] Specimen Type POC Capillary 09/20/2023 11:34 AM EDT [facility] Blood Capillary blood specimen / Unknown 09/20/2023 11:32 AM EDT 09/20/2023 11:34 AM EDT us Griffin Santiago MD LAB POINT OF CARE TEST DOCKED DEVICE UNSOLICITED RESULTS Final Result Performing Organization Address City/[facility] Co de Phone Number [facility] [address] [place] [address] * Lavender Top (09/20/2023 10:13 AM EDT) Pathologist [facility] Extra Hold for add-ons 09/20/2023 1:01 PM EDT [facility] Comment:Auto resulted. Blood Venous blood specimen / Unknown 09/20/2023 10:13 AM EDT 09/20/2023 10:23 AM EDT us Griffin Santiago MD LAB BLOOD ORDERABLES Marielle l Result [facility] [address] [place] [address] * Type and screen (09/20/2023 10:13 AM EDT) Pathologist [facility] ABO/Rh B Positive 09/20/2023 9:32 AM EDT BLOOD BANK Antibody Screen Negative 09/20/2023 9:32 AM EDT BLOOD BANK Specimen Expiration 09/23/2023 23:59 09/20/2023 9:32 AM EDT BLOOD BANK Blood Venous blood specimen / Unknown Venipuncture / Unknown 09/20/2023 10:13 AM EDT 09/20/2023 10:20 AM EDT us Karime Oviedo TRANSITION MGR RN LAB BLOOD BANK TEST ORDERABLE S Final Result BLOOD BANK [address] [place] [address], * (ABNORMAL) Basic metabolic panel (09/20/2023 9:22 AM EDT) Glucose, Plasma 135(H) 74 - 99 mg/dL 09/20/2023 9:59 AM EDT [facility] BUN, Plasma 26(H) 8 - 23 mg/dL 09/20/2023 9:59 AM EDT [facility] Creatinine, Plasma 1.27(H) 0.60 - 1.10 mg/dL 09/20/2023 9:59 AM EDT [facility] BUN/Creatinine Ratio 20 09/20/2023 9:59 AM EDT [facility] Sodium, Plasma 126(L) 136 - 145 mmol/L 09/20/2023 9:59 AM EDT [facility] Potassium, Plasma 5.2(H) 3.7 - 4.8 mmol/L 09/20/2023 9:59 AM EDT [facility] Chloride, Plasma 94(L) 97 - 107 mmol/L 09/20/2023 9:59 AM EDT [facility] CO2, Plasma 23 22 - 29 mmol/L 09/20/2023 9:59 AM EDT [facility] Anion Gap 9 6 - 16 mmol/L 09/20/2023 9:59 AM EDT [facility] Total Calcium, Plasma 8.9 8.9 - 10.2 mg/dL 09/20/2023 9:59 AM EDT [facility] eGFRcr 41.3 mL/min/1.7 3m*2 09/20/2023 9:59 AM EDT [facility] Comment:Reported eGFRcr in m L/min/1.73m2 is based the CKD-EPI 2020 equation that does not use a race coefficient. Blood Venous blood specimen / Unknown Venipuncture / Unknown 09/20/2023 9:22 AM EDT 09/20/2023 9:32 AM EDT Karime Oviedo TRANSITION MGR RN LAB BLOOD ORDERABLES Final Re sult [facility] [address] [place] [address] * Prepare Leukocyte Reduced RBC: 1 Units (09/20/2023 8:42 AM EDT) [facility] Product Code [id number] BLOO D BANK Dispense Status Transfused BLOOD BANK Blood Expiration Date [id number] BLOOD BANK Unit Number [id number] GS B LOOD BANK Product Blood Type 7300 BLOOD BANK Blood Type B+ BLOOD BANK Crossmatch Compatible BLOOD BANK Other Karime Andrade Preet BILL BLOOD BANK PRODUCT ORDERABLES Final Result Performing Organization Address [facility] Co de Phone Number BLOOD BANK [address] * (ABNORMAL) POCT glucose meter (09/20/2023 8:04 AM EDT) [facility] POCT Glucose 133(H) 74 - 99 [...] for testing. Comment 09/20/2023 8:05 AM EDT [facility] Restaurant Maintenance Technician ID Alma Real 09/20/19 8:05 AM EDT [facility] Device ID [id number] 09/20/2023 8:05 AM EDT [facility] Specimen Type POC Capillary 09/20/2023 8:05 AM EDT [facility] Blood Capillary blood specimen / Unknown 09/20/2023 8:04 AM EDT 09/20/2023 8:05 AM EDT Griffin Santiago MD LAB POINT OF CARE TEST DOCKED DEVICE UNSOLICITED RESULTS Final Result Performing Organization Address [facility] Co de Phone Number HEALTHCARE LAB [address] [place] [address] * (ABNORMAL) Osmolality (09/20/2023 4:49 AM EDT) Pathologist [facility] Osmolality, Serum 274(L) 280 - 301 mOsm/Kg 09/20/2023 8:39 AM EDT [facility] Blood Venous blood specimen / Unknown Venipuncture / Unknown 09/20/2023 4:49 AM EDT 09/20/2023 4:55 AM EDT Karan Montaño APRN LAB BLOOD ORDERABLES Final Result Performing Organization Address [facility] de Phone Number HEALTHCARE [facility] [address] [place] [address] * (ABNORMAL) Basic metabolic panel (09/20/2023 4:49 AM EDT) Glucose, Plasma 152(H) 74 - 99 mg/dL 09/20/2023 5:14 AM EDT [facility] BUN, Plasma 24(H) 8 - 23 mg/dL 09/20/2023 5:14 AM EDT [facility] Creatinine, Plasma 1.29(H) 0.60 - 1.10 mg/dL 09/20/2023 5:14 AM EDT [facility] BUN/Creatinine Ratio 19 09/20/2023 5:14 AM EDT [facility] Sodium, Plasma 127(L) 136 - 145 mmol/L 09/20/2023 5:14 AM EDT [facility] Potassium, Plasma 5.1(H) 3.7 - 4.8 mmol/L 09/20/2023 5:14 AM EDT [facility] Chloride, Plasma 93(L) 97 - 107 mmol/L 09/20/2023 5:14 AM EDT [facility] CO2, Plasma 24 22 - 29 mmol/L 09/20/2023 5:14 AM EDT [facility] Anion Gap 10 6 - 16 mmol/L 09/20/2023 5:14 AM EDT [facility] Total Calcium, Plasma 8.5(L) 8.9 - 10.2 mg/dL 09/20/2023 5:14 AM EDT [facility] eGFRcr 40.5 mL/min/1.7 3m*2 09/20/2023 5:14 AM EDT [facility] Comment:Reported eGFRcr in m L/min/1.73m2 is based the CKD-EPI 2020 equation that does not use a race coefficient. Blood Venous blood specimen / Unknown Venipuncture / Unknown 09/20/2023 4:49 AM EDT 09/20/2023 4:55 AM EDT us Karime Oviedo TRANSITION MGR RN LAB BLOOD ORDERABLES Final Re sult [facility] [address] [place] [address] * (ABNORMAL) CBC (09/20/2023 4:49 AM EDT) WBC Count 8.06 3.70 - 10.30 10*3/uL LAB HEMATOLOGY METHOD 09/20/2023 4:57 AM EDT [facility] RBC Count 2.57(L) 3.90 - 5.20 10*6/uL LAB HEMATOLOGY METHOD 09/20/2023 4:57 AM EDT [facility] HGB 7.0(L) 11.2 - 15.7 g/dL LAB HEMATOLOGY METHOD 09/20/2023 4:57 AM EDT [facility] HCT 20.9(L) 34.0 - 45.0 % LAB HEMATOLOGY METHOD 09/20/2023 4:57 AM EDT [facility] Platelet Count 323 155 - 369 10*3/uL LAB HEMATOLOGY METHOD 09/20/2023 4:57 AM EDT [facility] MCV 81 79 - 98 fL LAB HEMATOLOGY METHOD 09/20/2023 4:57 AM EDT [facility] MCH 27.2 26.0 - 32.0 pg LAB HEMATOLOGY METHOD 09/20/2023 4:57 AM EDT [facility] MCHC 33.5 30.7 - 35.5 g/dL LAB HEMATOLOGY METHOD 09/20/2023 4:57 AM EDT [facility] RDW 16.5(H) 11.5 - 14.5 % LAB HEMATOLOGY METHOD 09/20/2023 4:57 AM EDT [facility] MPV 9.1 8.8 - 12.5 fL LAB HEMATOLOGY METHOD 09/20/2023 4:57 AM EDT [facility] nRBC 0.0 <=0.0 per 100 WBCs LAB HEMATOLOGY METHOD 09/20/2023 4:57 AM EDT [facility] Blood Venous blood specimen / Unknown Venipuncture / Unknown 09/20/2023 4:49 AM EDT 09/20/2023 4:55 AM EDT us Karime Oviedo TRANSITION MGR RN LAB BLOOD ORDERABLES Final Re sult [facility] [address] [place] [address] * (ABNORMAL) POCT glucose meter (09/20/2023 3:34 AM EDT) POCT Glucose 159(H) 74 - 99 mg/dL [...] for testing. Comment 09/20/2023 3:36 AM EDT [facility] Restaurant Maintenance Technician ID Chema Wynn 09/20/2023 3:36 AM EDT [facility] Device ID [id number] 09/20/2023 3:36 AM EDT [facility] Specimen Type POC Capillary 09/20/2023 3:36 AM EDT [facility] Blood Capillary blood specimen / Unknown 09/20/2023 3:34 AM EDT 09/20/2023 3:36 AM EDT us Griffin Santiago MD LAB POINT OF CARE TEST DOCKED DEVICE UNSOLICITED RESULTS Final Result Performing Organization Address [facility] Co de Phone Number [facility] [address] [place] [address] * (ABNORMAL) POCT glucose meter (09/19/2023 9:24 PM EDT) POCT Glucose 312(H) 74 - 99 mg/dL [...] for testing. Comment 09/19/2023 9:25 PM EDT [facility] Restaurant Maintenance Technician ID Chema Wynn 09/19/2023 9:25 PM EDT [facility] Device ID [id number] 09/19/2023 9:25 PM EDT [facility] Specimen Type POC Capillary 09/19/2023 9:25 PM EDT [facility] Blood Capillary blood specimen / Unknown 09/19/2023 9:24 PM EDT 09/19/2023 9:25 PM EDT Griffin Santiago MD LAB POINT OF CARE TEST DOCKED DEVICE UNSOLICITED RESULTS Final Result Performing Organization Address [facility] de Phone Number [facility] [address] [place] [address] * (ABNORMAL) POCT glucose meter (09/19/2023 7:43 PM EDT) Pathologist [facility] POCT Glucose 277(H) 74 - 99 mg/dL [...] Comment 09/19/2023 7:45 PM EDT [facility] Restaurant Maintenance Technician ID Patrick Kim 09/19/19 7:45 PM EDT [facility] Device ID [id number] 09/19/2023 7:45 PM EDT [facility] Specimen Type POC Capillary 09/19/2023 7:45 PM EDT [facility] Blood Capillary blood specimen / Unknown 09/19/2023 7:43 PM EDT 09/19/2023 7:45 PM EDT us Griffin Santiago MD LAB POINT OF CARE TEST DOCKED DEVICE UNSOLICITED RESULTS Final Result Performing Organization Address [facility] Co de Phone Number [facility] [address] [place] [address] * (ABNORMAL) POCT glucose meter (09/19/2023 5:05 [...] for testing. Comment 09/19/2023 5:07 PM EDT [facility] Restaurant Maintenance Technician ID Mili Ardon 09/19/2023 5:07 PM EDT [facility] Device ID [id number] 09/19/2023 5:07 PM EDT [facility] Specimen Type POC Capillary 09/19/2023 5:07 PM EDT [facility] Blood Capillary blood specimen / Unknown 09/19/2023 5:05 PM EDT 09/19/2023 5:07 PM EDT Griffin Santiago MD LAB POINT OF CARE TEST DOCKED DEVICE UNSOLICITED RESULTS Final Result Performing Organization Address [facility]/ZIP Co de Phone Number [facility] [address] [place] [address] * XR Hip Left 2 or 3 [...] on 09/19/2023 1:31 PM us Karime Oviedo TRANSITION MGR RN IMG XR PROCEDURES Final Resul t * Surgical Pathology Exam (09/19/2023 11:36 AM EDT) Case Report Surgical Pathology ?Case: [id number] ? Authorizing Provider: ??Griffin Santiago MD ?? Collected: ? 09/19/2023 1136 ? Ordering Location: ? [facility] Operating Room ? Received: ?09/19/2023 1241 ? Pathologist: ? Erin Sykes MD ? Specimen: ?Hip, Left, left femoral head ? 09/20/2023 8:16 AM EDT [facility] Final Diagnosis LEFT FEMORAL HEAD: GROSS DIAGNOSIS ONLY. 09/20/2023 8:16 AM EDT [facility] Clinical Information Hip pain, left [M25.552] 09/20/2023 8:16 AM EDT [facility] Gross Description A. LEFT FEMORAL HEAD [...] only. Mich Guzman 09/20/2023 8:16 AM EDT [facility] Bone Left hip region structure / Unknown 09/19/2023 11:36 AM EDT 09/19/2023 12:41 PM EDT Comment:Pre-op diagnosis: Hip pain, left [M25.552] Griffin Santiago MD LAB PATHOLOGY ORDERABLES Final Result Performing Organization Address [facility] de Phone Number [facility] [address] [place] [address] * POCT glucose meter (09/19/2023 9:22 AM [...] Comment 09/19/2023 9:24 AM EDT [facility] Restaurant Maintenance Technician ID Kylee Treviño 9:24 AM EDT [facility] Device ID [id number] 09/19/2023 9:24 AM EDT [facility] Specimen Type POC Capillary 09/19/2023 9:24 AM EDT [facility] Blood Capillary blood specimen / Unknown 09/19/2023 9:22 AM EDT 09/19/2023 9:24 AM EDT Griffin Santiago MD LAB POINT OF CARE TEST DOCKED DEVICE UNSOLICITED RESULTS Final Result Performing Organization Address [facility] de Phone Number [facility] [address] [place] [address] documented in this encounter Visit Diagnoses Diagnosis [...] Oral, 2 times daily, First dose on Taylor 09/20/23 at 0900, Until Discontinued, Routine, Recovery(Phase II-Outpatient)/On [...] Given 09/24/2023 8:24 AM EDT 1 tablet dextrose 10 % (D10W) bolus 125 mL [...] than or equal to 50 mg/dL HYDROcodone-acetaminophen (Phoenix) 5-325 MG per tablet 5 mg of [...] PM EDT 2 Units Left Upper Arm (Back ) magnesium hydroxide (Milk of Magnesia) 400 MG/5ML [...] 1703, Routine, Recovery(Phase II-Outpatient)/On Unit(Inpatient), nausea, vomiting pantoprazole (Protonix) EC tablet 40 mg 40 mg, Oral, Daily before breakfast, First dose on Taylor 09/20/23 at 0730, Until Discontinued, Routine, Recovery(Phase II-Outpatient)/On [...] Given 09/22/2023 9:18 PM EDT 2 tablets documented in this encounter Active and Recently Administered Medications Times are shown in EDT. Scheduled Medication Order 09/23/2023 09/24/2023 09/25/2023 acetaminophen (Tylenol) tablet 500 mg 500 mg, Oral, Every 6 hours scheduled, First dose on Sun09/19/23 at 1445, Until Discontinued, Routine, Recovery(Phase II-Outpatient)/On Unit(Inpatient) 0526 (Given - Provider: Beck Woods)1156 (Given - Provider: [place] Powers RN)1754 (Given - Provider: [place] Powers RN)2321 (Not Given - Provider: Becca Machuca RN - Reason: Hold for condition: must add comment ) 0554 (Given - Provider: Becca Machuca RN)1107 (Given - Provider: Ayah Schmid RN)1729 (Given - Provider: Ayah Schmid RN)2313 (Given - Provider: Roly Hastings, NINI) 0514 (Given - Provider: Roly Hastings RN)1146 [...] Unit(Inpatient) 0826 (Given - Provider: [place] Powers RN)2114 (Given - Provider: Becca Machuca RN) 0824 (Given - Provider: Ayah Schmid RN)2007 (Given - Provider: Roly Hastings RN) 0840 (Given - Provider: Ryanne Feldman RN) calcium-vitamin D 500-200 MG-UNIT per tablet 1 tablet 1 tablet, Oral, 2 times daily with meals, First dose on Sun09/19/23 at 2100, Until Discontinued, Routine, Recovery(Phase II-Outpatient)/On Unit(Inpatient) 08 (Given - Provider: [place] Powers RN)175 (Given - Provider: [place] Powers RN) 0824 [...] RN) 0838 (Not Given - Provider: Ryanne Feldman RN - Reason: Hold for condition: must add comment - Comment: fsbs 99)1302 (Not Given - Provider: Ryanne Feldman RN - Reason: Hold for condition: must add comment - Comment: taken late after patient ate and patient being discharged) insulin lispro (Admelog) injection - Correction - Nighttime Dose 0-3 Units, Subcutaneous, 2 times nightly (2099 & 299), First dose on Sun09/19/23 at 2100, Until Discontinued, Routine 256 (Not Given - Provider: Beck Woods - Reason: Order parameters not met)2038 (Not Given - Provider: Becca Machuca RN - Reason: Order parameters not met) 237 (Not Given - Provider: Becca Machuca RN - Reason: Order parameters not met)2128 (Not Given - Provider: Roly Hastings RN - Reason: Order parameters not met) 229 (Not Given - Provider: Roly Hastings RN - Reason: Order parameters not met) magnesium oxide (Mag-Ox) tablet 400 mg 400 mg, Oral, Daily, First dose on Sun09/24/23 at 1515, Until Discontinued, Routine 172 (Given - Provider: Ayah Schmid, NINI) 0840 (Given - Provider: Ryanne Feldman RN) pantoprazole (Protonix) EC tablet 40 mg 40 mg, Oral, Daily before breakfast, First dose on Sun09/20/23 at 0730, Until Discontinued, Routine, Recovery(Phase II-Outpatient)/On Unit(Inpatient) 08 (Given - Provider: [place] Powers RN) 0554 (Given - Provider: Becca Machuca RN) 0633 (Given - Provider: Roly Hastings RN) polyethylene glycol (Miralax) packet 17 g (CANCELED) 17 g, Oral, Daily with breakfast, First dose on Sun09/20/23 at 0800, Until Discontinued, Routine, Recovery(Phase II-Outpatient)/On Unit(Inpatient) 08 (Given - Provider: [place] Powers, NINI) 0836 (Not Given - Provider: Ayah Schmid, NINI - Reason: Patient/family refused - Comment: pt already had a bowel movement this morning) senna-docusate (Sondra-Colace) 8.6-50 MG per tablet 2 tablet 2 tablet, Oral, Nightly, First dose on Sun09/19/23 at 2100, Until Discontinued, Routine, Recovery(Phase II-Outpatient)/On Unit(Inpatient) 2114 (Given - Provider: Becca Machuca RN) 2007 (Given - Provider: Roly Hastings RN) [...] or equal to 50 mg/dL HYDROcodone-acetaminoph en (Phoenix) 5-325 MG per tablet 5 mg of hydrocodone 5 mg of hydrocodone, Oral, Every 6 hours PRN, Starting on Sun09/21/23 at 1036, Until Sun09/25/23 at 1703, Routine, Recovery(Phase II-Outpatient)/On Unit(Inpatient), severe pain 2152 (Given - Provider: Becca Machuca RN) 1345 (Given - Provider: Ayah Schmid RN)2006 (Given [...] documented as of this encounter Care Teams Gang Drill Press Operator Relationship Specialty Start Date End Date Betsy Smith [address] [facility] [address] [place] [address] PCP - General 06/13/23 documented as of this encounter
--- OUTSIDE RECORDS SUMMARY | 2024-03-25 02:47 | XMS_ITS | Encounter Summary ---
Author Organization Healthcare Address [address] [place] [address] Care Team Providers Care Aircraft Servicer Name Role Phone Betsy Smith Primary Care Provider [phone] Encounter Details Date Type Department Care Team (Late st Contact Info) Description 06/12/2023 Orders Only External Location [address] [place] [address] Provider, External Social History Tobacco Use Types Packs/Day Years [...] [facility] [address] [facility], [address] [place] [address] Griffin Bustillos MD [address] [place] [address] documented as of this encounter Procedures Procedure Name Priority Date/Time Associated Diagnosis Comments XR OUTSIDE IMAGES 06/12/2023 12:22 PM EST documented in this encounter Results * XR OUTSIDE IMAGES (06/12/2023 12:22 PM EST) Anatomical Region Laterality Modality Radiographic Jennifer ging 06/12/2023 12:2 2 PM EST us External Provider IMG XR PROCEDURES Final Result documented in this encounter Visit Diagnoses Not on filedocumented in this encounter Care Teams Aircraft Servicer Relationship Specialty Start Date End Date Betsy Smith [address] [place] [address] [address] [place] [address] PCP - General 06/13/23 documented as of this encounter
--- OUTSIDE RECORDS SUMMARY | 2024-03-25 02:47 | XMS_ITS | Encounter Summary ---
Author Organization [facility] Address [address] [place] [address] Care Team Providers Care Magnesium Mill Operator Name Role Phone Betsy Smith MD Primary Care Provider [phone] Encounter Details Date Type Department Care Team (Late st Contact Info) Description 02/25/2024 Telephone [facility] [address] [place] [phone] [place] [address] [place] [address] Social History Tobacco Use Types Packs/Day Years Used Date Smoking Tobacco: Never Passive Smoke Exposure: Never Smokeless Tobacco: Never Alcohol Use Standard Drinks/Week Comments Not Currently 0 (1 standard drink = 0.6 oz pur e alcohol) Social PHQ-2 Answer Date Recorded Retired PHQ-9: Brief Depression Severity Measure Score 5 03/24/2022 Abuse Screen Answer Date Recorded Unsafe at Home or Work/School Not on file Feels Threatened by Someone? Not on file 01/2023 Does Anyone Keep You from Co ntacting Others or Doint Things Outside the Home? Not on file 02/12/2023 Physical Sign of Abuse Present Not on file 1 Housing Stability Answer Date Recorded Current Living Arrangements Not on file 01/2023 Potentially Unsafe Housing Conditions Not on emmanuel e 02/12/2023 Family and Community Support Answer Triston e Recorded Help with Day-to-Day Activities Not on file 02/12/2023 Lonely or Isolated Not on file 02/12/2023 Employment Answer Date Recorded Do you want help finding or keeping work or a luigi b? Not on file 02/12/2023 Disabilities Answer Date Recorded Concentrating, Remembering, or Making Decisions Difficulty Not on file 02/12/2023 Doing Errands Independently Difficulty Not on fi le 02/12/2023 Education Answer Date Recorded Help with school or training? 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 Not on file Not on [facility] documented as of this encounter Miscellaneous Notes * Telephone Encounter - Indu Owens RegSched Rep - 02/25/2024 2:45 PM EDT Name: Tasneem Perales Relationship: Self Best Callback Number: [phone] HUB PROVIDED THE RELAY MESSAGE FROM THE OFFICE PATIENT: VOICED UNDERSTANDING AND HAS NO FURTHER QUESTIONS AT THIS TIME ADDITIONAL INFORMATION: * Telephone Encounter - Maye Salazar MA - 02/25/2024 2:37 PM EDT Lvm for patient to return call HUB TO READ * Telephone Encounter - Maye Salazar MA - 02/25/2024 2:37 PM EDT ----- Message from Betsy Smith sent at 02/25/2024 12:35 AM EDT ----- Regarding: test results Kidney function improved, almost normal. Continue to drink enough water on a daily basis and to avoid NSAIDs documented in this encounter Plan of Treatment Upcoming Encounters Date Type Department Care Team (Late st Contact Info) Description 06/09/2024 3:00 PM EST Office Visit [facility] [address] [place] [phone] Betsy Smith MD [address] [place] [address] [phone] documented as of this encounter Visit Diagnoses Not on filedocumented in this encounter Additional Health Concerns Assessment Noted Time PHQ-2 Depression Total Score: 2 08/31/19 24 12:00 PM EDT documented as of this encounter Care Teams Magnesium Mill Operator Relationship Specialty Start Date End Date Betsy Smith MD [address] [place] [address] PCP - General 02/08/15 documented as of this encounter
--- OUTSIDE RECORDS SUMMARY | 2024-03-25 02:47 | XMS_ITS | Encounter Summary ---
Author Organization Healthcare Address [address] [place] [address] Care Team Providers Care Psychology Teacher Name Role Phone Betsy Smith Primary Care Provider [phone] Encounter Details Date Type Department Care Team (Late Contact Info) Description 03/08/2023 Orders Only External Location [address] [place] [address] Amado Pope MD [address] [place] [address] Social History Tobacco Use Types Packs/Day Years [...] [facility] [address] [facility], [address] [place] [address] Griffin Bustillos MD [address] [facility] [address] [place] [address] documented as of this encounter Procedures Procedure Name Priority Date/Time Associated Diagnosis Comments CT OUTSIDE IMAGES 03/08/2023 2:32 PM EDT documented in this encounter Results * CT OUTSIDE IMAGES (03/08/2023 2:32 PM EDT) Anatomical Region Laterality Modality Computed Tomogra phy 03/08/2023 2:32 PM EDT us Amado Pope MD IMG CT PROCEDURES Final Re sult documented in this encounter Visit Diagnoses Not on filedocumented in this encounter Care Teams Psychology Teacher Relationship Specialty Start Date End Date Betsy Smith [address] [facility] [address] [place] [address] PCP - General 06/13/23 documented as of this encounter
--- OUTSIDE RECORDS SUMMARY | 2024-03-25 02:47 | XMS_ITS | Encounter Summary ---
Author Organization Healthcare Address [address] [place] [address] Care Team Providers Care Keg Varnisher Name Role Phone Betsy Smith Primary Care Provider [phone] Encounter Details Date Type Department Care Team (Latest Contact Info) Description 08/14/2023 1:40 PM EDT - 08/14/2023 11:59 PM EDT Hospital Encounter Medical Office Building Radiology [address] [place] [address] Hip pain, left Discharge Disposition: Home or Self Care Social History Tobacco Use Types Packs/Day Years Used Date Smoking Tobacco: Never Smokeless Tobacco: Never Alcohol Use Standard Drinks/Week Comments Never 0 (1 standard drink = 0.6 oz pur e alcohol) Comments Unknown Sex and Gender Information Value [...] (one) time per week. Takes on Sunday ezetimibe (Zetia) 10 MG tablet Take 1 tablet (10 mg) by mouth Daily. HYDROcodone-acet aminophen (Hartwick) 5-325 MG tablet Take 1 tablet (5 [...] 2 (two) times a day. 09/25/2023 4 acetaminophen (Tylenol) 500 MG tablet Take 1 tablet (500 mg) by mouth 3 times a day. 4 calcium carbonate (Os-Valerio) 600 MG tablet Take 1 tablet (600 mg) by mouth 2 (two) times a day with meals. 4 cholecalciferol (Vitamin D3) 25 MCG (1000 UT) tablet Take 1 tablet (1,000 Units) by mouth 1 (one) time each day. 4 HYDROcodone-acet aminophen (Hartwick) 5-325 MG tablet TAKE 1 TABLET BY MOUTH EVERY 6 HOURS NEEDED FOR MILD TO MODERATE PAIN (1-6) FOR 3 DAYS 06/17/2023 4 irbesartan (Avapro) 300 MG tablet Take 1 tablet (300 mg) by mouth Daily. 4 NON FORMULARY Smooth Move Tea QHS 4 pioglitazone (Actos) 30 MG tablet Take 1 tablet (30 mg) by mouth Daily. 4 documented as of this encounter Plan of Treatment Upcoming Encounters Date Type Department Care Team (Shelley lee Contact Info) Description 03/03/2025 1:30 PM EDT Office Visit Medical Office Building Surgery Sp[facility] [address] [facility], [address] [place] [address] Griffin Bustillos MD [address] [facility] [address] [place] [id number] documented as of this encounter Procedures Procedure Name Priority Date/Time Associated Diagnosis Comments XR PELVIS 1 OR 2 VIEWS Routine 08/14/2023 1:52 PM EDT Hip pain, left documented in this encounter Results * XR Pelvis 1 or 2 Views (08/14/2023 1:52 PM EDT) Anatomical Region Laterality Modality Body, Pelvis Digital Radiogra phy Impressions 08/14/2023 2:54 PM EDT Redemonstration of destructive changes and severe osteoarthritis in the left hip joint. CRITICAL RESULT: ?? No. COMMUNICATION: Per this written report. Drafted by Roney Rodriguez MD on 08/14/2023 2:53 PM Final report signed by Roney Rodriguez MD on 08/14/2023 2:54 PM Narrative 08/14/2023 2:54 PM EDT CLINICAL INDICATION: Low AP pelvis for templating TECHNIQUE: XR PELVIS 1 OR 2 VIEWS COMPARISON: CT June 16, 2023. FINDINGS: Diffuse osteopenia. Redemonstration of destructive changes and severe osteoarthritis in the left hip joint. Redemonstration of moderate osteoarthritis in the right hip joint. No acute fracture or dislocation. Procedure Note Roney Mendez MD - 08/14/2023 CLINICAL INDICATION: Low AP pelvis for templating TECHNIQUE: XR PELVIS 1 OR 2 VIEWS COMPARISON: CT June 16, 2023. FINDINGS: Diffuse osteopenia. Redemonstration of destructive changes and severe osteoarthritis in theleft hip joint. Redemonstration of moderate osteoarthritis in the right hip joint. No acute fracture or dislocation. IMPRESSION: Redemonstration of destructive changes and severe osteoarthritis in theleft hip joint. CRITICAL RESULT: No. COMMUNICATION: Per this written report. Drafted by Roney Rodriguez MD on 08/14/2023 2:53 PM Final report signed by Roney Rodriguez MD on 42:54 PM us Griffin Bustillos MD IMG XR [...] plan has been documented for the patient 08/14/2023 12:25 PM EDT documented as of this encounter Care Teams Keg Varnisher Relationship Specialty Start Date End Date Betsy Smith [address] [facility] [address] [place] [address] PCP - General 06/13/23 documented as of this encounter
--- OUTSIDE RECORDS SUMMARY | 2024-03-25 02:47 | XMS_ITS | Encounter Summary ---
Author Organization Healthcare Address [address] [place] [address] Care Team Providers Care Manufacturing Mechanic Name Role Phone Betsy Smith Primary Care Provider [phone] Encounter Details Date Type Department Care Team (Late st Contact Info) Description 05/25/2023 Orders Only External Location [address] [place] [address] Provider, External Social History Tobacco Use Types [...] Building Surgery [facility] [address] [facility], [address] [place] [address] Griffin Bustillos MD [address] [place] [address] documented as of this encounter Procedures Procedure Name Priority Date/Time Associated Diagnosis Comments MR OUTSIDE IMAGES 05/25/2023 2:21 PM EST documented in this encounter Results * MR transfer of outside films (05/25/2023 2:21 PM EST) Anatomical Region Laterality Modality Magnetic Resonan ce 05/25/2023 2:21 PM EST us External Provider IMG MRI PROCEDURES Final Resul t documented in this encounter Visit Diagnoses Not on filedocumented in this encounter Care Teams Manufacturing Mechanic Relationship Specialty Start Date End Date Betsy Smith [address] [place] [address] [address] [place] [address] PCP - General 06/13/23 documented as of this encounter
--- OUTSIDE RECORDS SUMMARY | 2024-03-25 02:47 | XMS_ITS | Encounter Summary ---
Author Organization Healthcare Address [address] [place] [address] Care Team Providers Care Housefellow Name Role Phone Betsy Smith Primary Care Provider [phone] Encounter Details Date Type Department Care Team (Latest Contact Info) Description 09/04/2023 Travel Social History Tobacco Use Types Packs/Day Years Used Date Smoking Tobacco: Never Passive Smoke Exposure: Never Smokeless Tobacco: Never Alcohol Use Standard Drinks/Week Comments Never 0 (1 standard drink = 0.6 oz pur e alcohol) Comments No Sex and Gender Information Value [...] Building [facility] [address] [facility], [address] [place] [address] Griffin Bustillos MD [address] [place] [address] documented as of this encounter Visit Diagnoses Not on filedocumented in this encounter Additional Health Concerns Assessment Noted Time A fall risk assessment has been complete d for the patient 08/14/2023 10:21 AM EDT A Body Mass Index follow-up plan has been documented for the patient 08/14/2023 12:25 PM EDT documented as of this encounter Care Teams Housefellow Relationship Specialty Start Date End Date Betsy Smith [address] [place] [address] PCP - General 06/13/23 documented as of this encounter
--- OUTSIDE RECORDS SUMMARY | 2024-03-25 02:47 | XMS_ITS | Encounter Summary ---
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 * Telephone Encounter - Maye Salazar MA - 01/21/2024 4:06 PM EDT ----- Message from Betsy Smith sent at 01/19/2024 1:20 AM EDT ----- Pls call her son - Na level back to normal but kidney function worsened. Proceed with oxybutynin for urinary incontinence and hopefully this will allow her to drink more water, which would help the kidney function documented in this encounter Plan of Treatment Upcoming Encounters Date Type Department Care Team (Late st Contact Info) Description 06/09/2024 3:00 PM EST Office Visit [facility] [address] [place] [phone] [place] [address] [place] [id number] documented as of this encounter Visit Diagnoses Not on filedocumented in this encounter Additional Health Concerns Assessment Noted Time PHQ-2 Depression Total Score: 2 08/31/19 24 12:00 PM EDT documented as of this encounter Care Teams Fur Stylist Relationship Specialty Start Date End Date Betsy Smith MD [address] [place] [address] PCP - General 02/08/15 documented as of this encounter
--- OUTSIDE RECORDS SUMMARY | 2024-03-25 02:47 | XMS_ITS | Clinical Summary ---
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 Active Multiple Vitamins-Minerals (ICAPS AREDS 2 PO) Take by mouth. 03/08/20 22 Active acetaminophen (TYLENOL) 500 MG tablet Take 1 tablet by mouth 3 (Three) Times a Day. Active alendronate (FOSAMAX) 70 MG tabletIndications:Age-re lated osteoporosis without current pathological fracture Take 1 tablet by mouth 1 (One) Time Per Week. 30 tablet 08/31/19 24 Active ezetimibe (Zetia) 10 MG tabletIndications:Pure hypercholesterolemia Take 1 tablet by mouth Daily. 30 tablet 08/31/19 24 Active Ca Phosphate-Cholecalcifero l ([employer] CALCIUM-VITAMIN D PO)Indications:Age-relat ed osteoporosis without current pathological fracture Take 1 tablet by mouth 2 (Two) Times a Day. Active oxybutynin XL (DITROPAN-XL) 10 MG 24 hr tabletIndications:Overfl ow incontinence of urine Take 1 tablet by mouth Daily. 90 tablet 1 10/17/20 24 Active psyllium (METAMUCIL) 58.6 % packet Take 1 packet by mouth Daily. Active Active Problems Problem Noted Date Diagnosed Date Normocytic anemia 09/05/2023 Overview (10/08/2023): 10/05/23 [facility] discharge s/p L THR - s/p 2u pRBCs at ; 09/24/23 discharge H&H 7.8/23.7; 09/19 and 09/21/23 s/p 2u pRBCs s/p L. KUSH; 09/04/23 worsened H&H 10.6/32.9, MCV 81 Assessment & Plan (11/12/2023 10:39 PM EDT): Stable CBC Assessment & Plan (10/18/2023 9:46 PM EDT): Acute on chronic anemia, s/p transfusion 2u pRBCs during hospitalization; f/u CBC today Mild cognitive impairment 08/31/2023 Overview (02/21/2024): 02/21/24 MMSE 28/30; 08/31/23 MMSE 27/30 Assessment & Plan (02/21/2024 1:22 PM EDT): MMSE stable 28/30; encouraged again social activities and physical exercise as well as brain exercises with puzzles, reading, memorization, socialization, learning new activities/hobbies, and role of medications; she enjoys playing [employer]; f/u in 6 mos Assessment & Plan (01/19/2024 12:39 AM EDT): F/u in 4 wks with updated MMSE; improved from pre-surgery state but not back to baseline; discussed memory meds at that time if indicated Assessment & Plan (11/12/2023 10:42 PM EDT): F/u in 2 mos with updated MMSE and consider medication for memory if indicated Assessment & Plan (10/18/2023 10:00 PM EDT): Mental clarity seems improved today, previous decline attributed to hip OA/AVN health issues/complications), but still some word finding issues today; not back to baseline; f/u in 1 month; plan on updated MMSE down the road Assessment & Plan (08/31/2023 12:51 PM EDT): NEW problem, possibly exac'd or triggered by recent health issues over the last 6 mos (L hip OA/AVN, awaiting THR); MMSE 27/30; discussed brain exercises with puzzles, reading, memorization, socialization, learning new activities/hobbies, and role of medications; discussed option of Speech Therapy consult for memory clinic ; rec f/u and reassess after KUSH In the meantime, make extra safety efforts, ie med mgmt, surveillance kitchen appliances are not left on, etc Insomnia 06/28/2023 Assessment & Plan (06/28/2023 7:40 PM EST): Advise against med RX, otilio with recent increased confusion and fall risk; advised most important intervention is to prevent daytime dozing/napping; rec setting alarms or phone calls as no one else is home during the daytime Avascular necrosis of hip, left 06/27/2023 Overview (09/27/2023): 09/19/23 ortho/Dr. Bustillos; s/p L. KUSH; rec ASA 81mg BID x 4 wks for DVT prevention; 07/13/23 see std wheelchair order from [facility] Med Equipment Assessment & Plan (06/27/2023 10:33 PM EST): L. KUSH per ortho Dr. Bustillos Spinal stenosis of lumbar re gion with neurogenic claudication 04/04/2023 Overview (04/26/2023): 04/23/23 NS/Dr. Garcia - somewhat high risk for surgical intervention, refer to pain clinic and check MRI L hip; 04/02/23 MRI L-spine: adv to multifocal degen changes with diffuse disc bulges and mod-severe canal stenosis and bilat neuroforaminal narrowing, most severe at L4-5 Assessment & Plan (06/05/2023 2:00 PM EST): Poor surgical candidate per Dr. Artis; note also severe L hip pathology on MRI; f/u Pain clinic next week - reports 2 injections were ineffective; has NS f/u with Dr. Artis pending 06/13/23; current chief complaint is in left hip and groin area Osteoarthritis of left hip 03/15/2023 Overview (09/27/2023): 09/19/23 ortho/Dr. Bustillos; s/p L. KUSH; rec ASA 81mg BID x 4 wks for DVT prevention; 06/16/23 CT pelvis ([facility]) - severe L femoroacetabular DJD with osteophytes, degen cystic changes, lg L hip effusion; 06/12/23 ortho/Dr. Huffman - rapid progression, concern for neoplasm vs septic arthritis, referral to Dr. Gardiner for eval (bx vs aspiration); 05/25/23 MRI L hip: severe degen change worsened from 03/29, mod joint effusion, bone marrow edema, abnl soft tissue around fem head/neck; NS - Dr. Artis 04/23/23 NS/Dr. Garcia - check MRI left hip; 03/16/23 see [facility] PT order dated 03/16/23; 03/08/23 CT left hip - severe degen changes; 02/15/23 XR left hip - degen changes Assessment & Plan (10/18/2023 10:00 PM EDT): S/p L KUSH per Dr. Bustillos with recent postop visit 10/09/23; advised to wear hip immobilizer and to utilize hip abductor pillow to decr risk of dislocation; has 6 wks f/u with ortho; remains on ASA 81mg BID for DVT prophylaxis - should be finished tomorrow and then rec resuming ASA 81mg QD; rec ice to the left hip for swelling, 20 minutes 3x/day; has PT 2x/week ([facility]) but advised patient should be doing HEP every single day Assessment & Plan (08/31/2023 12:54 PM EDT): L. Hip KUSH pending per Dr. Bustillos; has pre-admission testing 09/19/23 and no pre-op requested from PCP; encouraged patient to comply with HEP so that rehab afterwards will more successful; family states she will be going to rehab facility; advised family to let us know the day before she leaves rehab so we can schedule TCM hospital follow-up visit as most likely she will need home health Assessment & Plan (06/28/2023 7:40 PM EST): L. KUSH per [facility] ortho Dr. Bustillos; rec leg strengthening exercises as tolerated; ok for tylenol extra-strength 2 tabs TID prn; RX for wheelchair and handicap given today Note fall risk; advised getting Life Alert or something similar since no one is home with her during the daytime Assessment & Plan (06/05/2023 2:00 PM EST): Reviewed MRI L hip results, indicating severe degen changes, mod joint effusion, and abnl surrounding soft tissue, further worsened since 01/27 fall; rec ortho consultation Assessment & Plan (03/15/2023 7:51 PM EST): Reviewed left hip XR and CT results, noting severe degen changes albeit patient reports no hip pain at all prior to fall; has decreased external rotation likely due to the OA in the hip; RX rolling walker Menopause 09/20/2022 Early dry stage nonexudative age-related macular degeneration of both eyes 03/09/2022 Overview (03/23/2023): 03/21/23 ophtho/Dr. Duque - dry macular degeneration OU, Areds 2 vitamins; 03/08/22 ophtho/Dr. Duque - dry macular degeneration OU, started Areds 2 vitamins Assessment & Plan (03/24/2022 10:18 PM EST): Reviewed with patient Dr. Duque recs to take AREDS2 vitamins LBBB (left bundle branch block) 03/10/2019 Overview (03/22/2019): 03/20/19 nl Lexiscan stress test, EF 65%; 03/10/19 NEW LBBB Microscopic hematuria 03/09/2018 Overview (03/09/2018): 03/08/18 NEW finding, UA (+) RBCs 13-20, tasked patient to repeat clean catch UA and will refer to urology if persistent Assessment & Plan (09/06/2018 1:12 AM EDT): needs f/u UA/micro for f/u evaluation from 03/24; if persistent, referral to urology Hemorrhoids 06/26/2017 Assessment & Plan (06/26/2017 1:23 PM EST): Likely int/ext hemorrhoids per patient; back on Miralax for chronic constipation; rec Tucks wipes as needed and rec OTC prep H supp BID-TID prn as needed Hyponatremia 06/20/2017 Overview (01/19/2024): 01/18/24 improved/nl Na 138; 10/05/23 [facility] discharge s/p L THR; improved on 1.5L fluid restriction; 09/25/23 persistent postop, improved to 126; cont 1.5L fluid restriction; 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 this admit with mild hypovolemic aspect in setting of periop blood loss s/p transfusions 09/12/23 worsened Na 127; needs BMP, serum/urine osm (escribed); 09/04/23 Na 133; 06/16/23 [facility] admission Na 123; 130 by discharge; 06/06/23 persistent Na 128; 04/27/22 resolved Na 136 Assessment & Plan (02/17/2024 8:41 PM EDT): Hyponatremia resolved; f/u BMP to ensure stability Assessment & Plan (01/19/2024 1:15 AM EDT): F/u BMP; ADDENDUM: Na 138 Assessment & Plan (11/12/2023 10:39 PM EDT): BMP with stable bord Na 131; snot quite following 1.5L/day fluid restriction - probably getting about 75-100oz per day Assessment & Plan (10/18/2023 9:46 PM EDT): Persistent during hospitalization with marcia of 123; 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; reiterated rec for 1.5L fluid restriction per day; f/u BMP today Assessment & Plan (06/28/2023 7:31 PM EST): Consider d/t dehydration; f/u BMP Assessment & Plan (04/26/2020 12:48 AM EST): Resolved with fluid restriction Na 140 Assessment & Plan (04/06/2020 1:19 PM EST): Persistent bord hyponatremia, improved to 134; osm levels c/w bord SIADH but need enough fluids for acute on CRF; AM cortisol acceptable Assessment & Plan (02/01/2018 12:42 PM EDT): Patient requesting BMP for f/u; done on way out door Assessment & Plan (07/28/2017 12:33 AM EDT): Resolved in 07/22 labs with discontinuation of HCTZ Assessment & Plan (06/26/2017 1:22 PM EST): Fluid restriction recommended since labs done last week but not followed; will therefore hold HCTZ and have her check BMP with TSH in 1 week (lab order given to patient to do closer to home); discussed decreasing water intake from 5 to 4 bottles daily; RTC 1 month at the latest in the office B12 deficiency 03/06/2017 Overview (06/30/2023): 06/28/23 nl B12 477; 06/06/23 stable B12 478; 03/24/22 super-high B12 1860; 03/14/21 supratherapeutic level 1482; 03/12/20 supratherapeutic level 1414, decr B12 from 1000mcg QD to 500mcg QD; 06/16/17 normal B12 (663) Assessment & Plan (06/03/2023 10:11 PM EST): Update B12 level; no current supplementation Assessment & Plan (03/24/2022 10:10 PM EST): Update 12 level; no further B12 supplementation Assessment & Plan (03/19/2021 1:02 PM EST): Note supratherapeutic B12 level; rec d/c B12 supplement Assessment & Plan (03/13/2020 12:24 PM EST): supratherapeutic level 1414; decr B12 from 1000mcg QD to 500mcg QD Assessment & Plan (03/08/2019 2:48 AM EDT): Still needs B12 level, otilio while on metformin; on 1000mcg QD supplementation Assessment & Plan (03/06/2018 11:58 PM EDT): Update B12 level; no current supplementation Assessment & Plan (03/06/2017 2:48 PM EDT): Reviewed role/purpose of B12; rec SL B12 1000mcg QD and f/u level in 3-4 mos Sensorineural hearing loss (SNHL) of both ears 1 Overview (01/10/2024): 01/09/24 audiology/Laura Mercer, AuD - mod-severe R, mild-severe L SNHL, rec bilat hearing aids, RTC 1-2 yrs; 04/14/20 audiology/Dr. Sidra jane SNHL (mild-mod at low tones, severe to profound at higher frequencies), proceed with binaural hearing aids Assessment & Plan (01/19/2024 12:45 AM EDT): Commended patient on getting hearing evaluated; awaiting hearing aids; reviewed relationship between hearing loss and dementia Assessment & Plan (10/18/2023 9:46 PM EDT): Agree with updated hearing evaluation but bilat cerumenectomy performed today Assessment & Plan (03/24/2022 10:10 PM EST): Near absent hearing to finger rubbing on right, absent on left; no cerumen on exam; rec audiology evaluation, otilio with link between hearing loss and dementia; she states Dr. Burks goes to her town (daughter has seen him) - will let us know if she needs referral Assessment & Plan (03/21/2021 12:44 PM EST): No hearing in the right ear per pt Assessment & Plan (04/27/2020 10:20 AM EST): She is working in getting hearing aids that fir her ears Assessment & Plan (03/13/2020 12:29 PM EST): Decreased hearing bilaterally; discussed risks of chronic hearing loss, otilio as a RF for dementia; rec audiology consultation Assessment & Plan (06/28/2019 1:24 AM EST): Absent hearing to finger rubbing bilaterally; recommend ENT follow-up for audiogram testing and consideration of hearing aids Assessment & Plan (03/06/2017 2:50 PM EDT): Discussed that popping/fluid noise in right ear could be attributed to hearing loss; unable to hear finger rubbing bilaterally, therefore rec audiology evaluation (she will contact the ENT who goes to her town) Anal fissure 02/29/2016 Constipation 02/29/2016 Overview (06/01/2020): 06/01/20 resolved with addition of miralax and fiber powder; Impression: 02/01/18 resolved with smooth move tea qhs, off of miralax at this time; 08/29/16 improved with OTC Mirafiber 2 QD, reports diarrhea with Linzess (RX'd by local provider); 02/09/2014 - discussed other RX options to include amitiza and linzess; she opts to cont miralax QD; advised adequate fiber and water intake daily with reg phys activity; Assessment & Plan (01/19/2024 12:36 AM EDT): Rec fiber supplement QD and increasing daily water intake; if still with constipation, then rec adding Miralax 1 cup QD; discussed also addition of oxybutynin could exacerbate constipation Assessment & Plan (10/18/2023 9:54 PM EDT): Denies constipation, therefore rec d/c klaudia-colace (on rehab discharge med list); rec addition of fiber supplement QD and increased water intake (noting 1.5L fluid restriction with hyponatremia); if constipation recurs, then rec resuming Miralax QD Assessment & Plan (06/28/2023 7:36 PM EST): Likely drug-induced with recent hydrocodone; rec fiber supplement (metamucil ok) and increased water intake; rec colace 100mg QD as stool softener; ok for prune juice (inquiry per daughter); rec short episodes of walking as tolerated to improve intestinal motility Assessment & Plan (03/21/2021 10:23 AM EST): Improved with miralax in combination with benefiber and fiber one; cont to drink enough water Assessment & Plan (06/01/2020 5:20 PM EST): Improved with addition of Miralax and fiber powder; cont to encourage adequate water intake daily and reg phys activity Assessment & Plan (05/18/2020 5:33 PM EST): Continue fiber supplement, Colace stool softener, and encouraged increased water intake; resume MiraLAX 1 cup daily; follow-up in 2 weeks Assessment & Plan (04/27/2020 10:21 AM EST): Cont fiber supplement capsules (she is taking 2 BID, bottle says up to 8/day); drink more water (note s/e reflux) and also rec adding colace 100mg QD-BID for stool softener effect Assessment & Plan (02/01/2018 12:41 PM EDT): Resolved with smooth move tea qhs, off of miralax at this time Assessment & Plan (11/28/2016 1:14 PM EDT): Improved with Smooth Move tea nightly; adequate fiber and water intake Assessment & Plan (08/29/2016 1:14 PM EDT): Reports Linzess caused diarrhea; notes improvement with Mirafiber 2 QD, noting it is more effective than plain miralax Assessment & Plan (02/29/2016 3:22 PM EDT): D/c miralax due to soft stools; if gets hard stools again, rec colace as stool softener; in the interim, stay consistent with fiber supplementation and increase daily water intake Ecchymosis 02/29/2016 Overview (02/29/2016): Impression: 02/12/2015 - most likely attributed to ASA 81mg QD; follow clinically; CKD (chronic kidney disease), stage III 02/29/20 16 Overview (02/25/2024): 02/22/24 improved Cr 0.9, GFR 59; 01/18/24 worsened Cr 1.04, GFR 52.5; 10/18/23 Cr 0.85, GFR 65; 09/12/23 stable Cr 0.7, GFR 96; 09/04/23 improved Cr 0.89, GFR 63.2; 06/06/23 improved Cr 0.9, GFR 59; 04/06/22 bord/improved Cr 1.18, GFR 45.4; 03/24/22 worsened Cr 1.25, GFR 41.9; 03/14/21 Cr 1.15, GFR 45; (was Cr 1.23, GFR 42 in 07/25); 06/01/20 back to baseline Cr 1.07, GFR 49; 04/14/20 stable Cr 1.12, GFR 46; 03/12/20 back to baseline Cr 1.07, GFR 49; 03/05/20 worsened renal function Cr 1.43, GFR 35, K 5.1; Impression: 03/05/19 stable/improved with Cr 1.06, GFR 50; 12/02/17 hospitalized with prerenal azotemia Cr 1.9, consult per Dr. Pool; 06/16/17 stable renal function Cr 1.11, GFR 47; 02/12/2015 - stable renal function; Assessment & Plan (02/21/2024 1:22 PM EDT): Hyponatremia resolved but worsened kidney function; repeat BMP for f/u - lab order given to patient so she can get when she is well-hydrated Assessment & Plan (01/19/2024 1:16 AM EDT): Update BMP; ADDENDUM: improved Na 138 but worsened renal function with Cfr 1.04, GFR 52.5; pt reports decr'd water intake d/t incontinence Assessment & Plan (11/12/2023 10:41 PM EDT): Renal function worsened again with Cr 1.0, GFR 53 (previously nl GFR 65, Cr 0.87 in 10/28); discussed adequate fluid intake in the context of fluid restriction for chronic hyponatremia; patient aware to avoid NSAIDs; f/u BMP in 2 mos for serial examination Assessment & Plan (06/03/2023 10:11 PM EST): Needs updated Cr and GFR; avoid NSAIDs; drink enough water daily; will need to d/c metformin if GFR < 30 Assessment & Plan (05/29/2022 9:47 PM EST): F/u renal function improved, back to baseline Cr 1.18, GFR 45.4; reminded patient importance of good BG and BP control (note elevated BP today); avoid NSAIDs Assessment & Plan (03/24/2022 10:10 PM EST): Update renal function; encouraged drinking enough water on daily basis Assessment & Plan (03/19/2021 1:02 PM EST): Stable renal function Cr 1.15, GFR 45; reviewed importance good BP and BG control; avoid NSAIDs; drink enough water daily Assessment & Plan (07/02/2020 6:25 AM EST): Update BMP; on ARB for nephroprotective effects; maintain good BPs and avoid NSAIDs Assessment & Plan (05/16/2020 9:11 PM EST): F/u BMP with addition of losartan; cont to work on maintaining good BG and BP control; avoid NSAIDs; drink enough water on daily basis Assessment & Plan (04/27/2020 10:20 AM EST): Stable renal function Cr 1.12, GFR 46; discussed drinking more water on a daily basis; note that she feels water causes reflux - rec room temp water and maybe trying flavored water Assessment & Plan (04/06/2020 1:18 PM EST): Renal function labile, worsened today; discussed importance of drinking enough water on daily basis; avoid NSAIDs; maintain good BG and BP control; repeat BMP in 1 wk; ACEI temporarily discont'd (was on amlo/benaz 5/40 QD, currently on amlo 10mg QD for BP); will need to d/c metformin and alendronate if renal function remains worsened Assessment & Plan (03/13/2020 12:21 PM EST): Acutely worsened renal function, hopefully due to mild dehydration with fasting labs; repeat BMP today in well-hydrated, nonfasting state; ADDENDUM: Cr back to baseline 1.07 with GFR 49 Assessment & Plan (03/08/2019 2:47 AM EDT): Renal function stable/improved with Cr 1.06, GFR 50; discussed importance of good BG and BP control as well as avoidance of NSAIDs Assessment & Plan (03/07/2018 12:02 AM EDT): Update Cr/GFR; discussed importance of good BP and BG control; on ACEI for nephroprotective effects; avoid NSAIDs Assessment & Plan (06/26/2017 1:21 PM EST): Renal function remains stable with Cr 1.11, GFR 47; discussed importance of good BGs and BPs; avoid NSAIDs; repeat labs in 6 mos Assessment & Plan (03/06/2017 2:49 PM EDT): Stable renal function; no microalbuminuria Assessment & Plan (02/29/2016 2:46 PM EDT): Renal function stable; avoid NSAIDs; on ACEI (benaz) for nephroprotective effects Overflow incontinence of urine 02/29/2016 Overview (01/19/2024): 01/18/24 RX oxybutynin XL 10mg QD in addition to kegel exercises and scheduled bathroom breaks Assessment & Plan (02/17/2024 8:42 PM EDT): Improved on oxybutynin XL 10mg QD #90, 1RF Assessment & Plan (01/19/2024 12:38 AM EDT): Rec scheduled bathroom breaks while awake; rec Kegel exercises - reviewed correct exercise; rec limiting caffeinated beverages and those with diuretic effect; she will decrease coffee to 1 cup decaf in AM' reviewed med options, goals, side effects, and risks; patient will proceed with oxybutynin XL 10mg QD #30, 1RF Assessment & Plan (05/29/2022 9:48 PM EST): Has gone to decaf coffee and only 1-2 cups in AM; advised again regular bathroom breaks; no meds RX'd today Assessment & Plan (03/24/2022 10:16 PM EST): Reviewed diuretic effect of coffee, likely exacerbating her incontinence., therefore should cut back coffee and caffeine intake; rec time bathroom breaks for evacuating bladder only when full; f/u in 2 mos Assessment & Plan (09/06/2018 8:15 PM EDT): rec more frequent bathroom breaks and not waiting until last minute to go to bathroom; rec scheduled bathroom breaks during the daytime; discussed role of meds and potential s/e; follow clinically Assessment & Plan (08/29/2016 1:19 PM EDT): rec Kegel exercises and making scheduled bathroom breaks; discussed poss med options but would likely exacerbate constipation Vitamin D deficiency 02/29/2016 Overview (06/30/2023): 06/28/23 vit D 62.4; 06/06/23 vit D 57.7; 03/24/22 vit D 51.0; 03/14/21 vit D 44.7; 03/05/20 vit D 44.7 on Ca/vit D 600mg BIDI and vit D 1000 units QD; Impression: 03/08/18 low at 23.0, rec OTC vit D 2000 units QD and f/u level in 6 mos; 02/12/2015 - stable with current supplementation Impression: 02/09/2014 - stable with current supplementation; Assessment & Plan (06/03/2023 10:11 PM EST): Update vit D level on 1000 units QD supplementation Assessment & Plan (03/24/2022 10:10 PM EST): Update vit D level on 1000 units QD supplementation Assessment & Plan (03/19/2021 1:02 PM EST): Stable vit D level 44.7; cont 1000 units QD supplementation Assessment & Plan (03/13/2020 12:24 PM EST): Stable level 44.7 on CA/vit D 600mg BID and 1000 units QD Assessment & Plan (03/08/2019 2:49 AM EDT): Still need vit D level on 1000 units QD supplementation Assessment & Plan (09/06/2018 8:12 PM EDT): Overdue for f/u vit D level, currently taking 1000 units QD supplementation Assessment & Plan (03/06/2018 11:59 PM EDT): Check vit D level on Ca/vit D supplementation Assessment & Plan (03/06/2017 2:48 PM EDT): Stable with current supplementation - getting 800 units with her calcium supplementation Medicare annual wellness visit, subsequent 02/28 Assessment & Plan (06/05/2023 1:59 PM EST): Health maintenance - flu vacc 03/29; rec COVID19 vacc, rec RSV vacc - counseling given and rec getting at pharmacy (pain clinic instructed her to avoid vacc after pain injections); Prevnar 02/18; PVX 03/16; Tdap 05/27 (next Td due 2030), Shingrix and HAV done; mammo 06/01/20 - pt requests no further breast CA screening unless abnlities; no further Paps unelss abnlities; DEXA 11/26, repeat 2024 colonosc 2007 and Cologuard 03/24 - no further colon CA screening unless abnlities; eye exam w/ Dr. Duque 03/21/23; dental exam TBD; (+)seat belt use Consultants: Patient Care Team: Betsy Smith MD as PCP - Ed Aragon MD as Consulting Physician (Ophthalmology) Julito Shen MD as Consulting Physician (Gastroenterology) Kristal Valente (Audiology) Isidro Artis MD as Consulting Physician (Neurosurgery) Steve Greenwood MD as Consulting Physician (Pain Medicine) Assessment & Plan (03/24/2022 10:12 PM EST): Health maintenance - COVID19 vacc done, incl 4th dose Moderna; rec proceeding with new COVID19 vacc and updated flu vacc - she would like to get at pharmacy; Prevnar 02/18; PVX 03/16; Tdap 05/27 (next Td due 2030), Zostavax 09/12, Shingrix and HAV done; no further mammos, Paps cn colonosc per patient unelss abnlities; DEXA ordered (last 06/26),; colonosc 2007, NEG cologuard 03/25/18; eye exam w/ Dr. Duque 03/08/22 (no DM retinopathy); dental exam 07/26; (+)seat belt use Consultants: Patient Care Team: Betsy Smith MD as PCP - Ed Aragon MD as Consulting Physician (Ophthalmology) Julito Shen MD as Consulting Physician (Gastroenterology) Kristal Valente (Audiology) Assessment & Plan (03/21/2021 12:47 PM EST): Health maintenance - COVID19 vacc done, including 3rd dose COVID; high dose flu vacc recommended - none available in the office today, rec getting at pharmacy; Prevnar 02/18; PVX 03/16; Tdap 05/27 (next Td due 2021), Zostavax 09/12, Shingrix and HAV done; mammo 06/01/20; no further Paps unelss abnlities; DEXA 06/26, repeat 2021; colonosc 2007, no further per pt; NEG cologuard 03/25/18; eye exam w/ Dr. Duque 03/02/21, cont annually; dental exam UTD, just had tooth extraction; (+)seat belt use Consultants: Patient Care Team: Betsy Smith MD as PCP - Ed Aragon MD as Consulting Physician (Ophthalmology) Julito Shen MD as Consulting Physician (Gastroenterology) Kristal Valente (Audiology) Assessment & Plan (03/13/2020 12:11 PM EST): Health maintenance - flu vacc given today; Prevnar 02/18; PVX 03/16; Tdap 10/15 (next Td due 2020), Zostavax 09/12, Shingrix and HAV done; mammo pending 05/31/20; no further Paps unelss abnlities; DEXA 06/26, repeat 2021; colonosc 2007, no further per pt; NEG cologuard 03/25/18; eye exam w/ Dr. Duque 07/16/19; dental exam pending (has a tooth issue ; (+)seat belt use Consultants: Patient Care Team: Betsy Smith MD as PCP - Ed Aragon MD as Consulting Physician (Ophthalmology) Julito Shen MD as Consulting Physician (Gastroenterology) Assessment & Plan (03/10/2019 2:12 PM EST): Health maintenance - flu vacc given today; Prevnar 02/18; PVX 03/16; Tdap 10/15 (Td due 2020), Zostavax 09/12, Shingrix and HAV done; mammo pending 03/18/19; no further Paps unelss abnlities; DEXA ordered (last 03/22); colonosc 2008, no further per pt; NEG cologuard 03/25/18; eye exam with Dr. Duque to be updated per patient; dental exam to be updated -getting new insurance; (+)seat belt use Consultants: Patient Care Team: Betsy Smith MD as PCP - General Betsy Smith MD as PCP - Claims Attributed Ed Duque MD as Consulting Physician (Ophthalmology) Julito Shen MD as Consulting Physician (Gastroenterology) Assessment & Plan (03/07/2018 2:09 PM EDT): Health maintenance - flu vacc 01/22; Prevnar 02/18; PVX 03/16; Tdap 10/15, Zostavax 09/12, Shingrix and HAV #1 02/11/18; mammo 02/21; no further Paps unelss abnlities; DEXA 03/22, repeat 2018; colonosc 2007, repeat [address] Shen - colon Ca screening recs reviewed with patient, risks, benefits, options, and indications, and patient would like to proceed with Cologuard screening; eye exam with Dr. Duque 12/22; dental exam to be updated per pt; (+)seat belt use Consultants: Patient Care Team: Betsy Smith MD as PCP - General Betsy Smith MD as PCP - Claims Attributed Ed Duque MD as Consulting Physician (Ophthalmology) Julito Shen MD as Consulting Physician (Gastroenterology) Assessment & Plan (03/06/2017 2:51 PM EDT): Health maintenance - flu vacc given today; Prevnar 02/18; PVX 03/16; Tdap 10/15, Zostavax 09/12; mammo to be updated (08/27/15) at [facility]; no further Paps unelss abnlities; DEXA 03/22, repeat 2018; colonosc 2007, repeat [address] Shen (she wants to proceed next yr); eye exam with Dr. Duque 11/20; rec updated dental exam - teeth work pending; (+)seat belt use Consultants: Patient Care Team: Betsy Smith MD as PCP - General Betsy Smith MD as PCP - Claims Attributed Ed Duque MD as Consulting Physician (Ophthalmology) Julito Shen MD as Consulting Physician (Gastroenterology) Assessment & Plan (02/29/2016 2:55 PM EDT): Health Maintenance - flu vaccine given today, Prevnar 02/18, PVX 03/16, Tdap 10/15, Zostavax 09/12; mammogram 2015 - will request from [facility]; no further Paps unless abnlities; DEXA ordered (last 11/16); colonoscopy 08/12, repeat [address] Shen; eye exam to be updated with Dr. Duque; rec updated dental exam Patient Care Team: Betsy Smith MD as PCP - General Ed Duque MD as Consulting Physician (Ophthalmology) Julito Shen MD as Consulting Physician (Gastroenterology) Hyperlipidemia 02/18/2016 Overview (06/30/2023): 06/28/23 TC 184, TG 56, HDL 79, LDL 94; 06/17/23 D/C meds - amlo/atorvastatin 5/40 QD (hosp); 06/06/23 stable lipids TC 163, TG 47, HDL 81, LDL 65; 03/24/22 abnl lipids TC 196, TG 55, HDL 96, LDL 90; 03/14/21 stable lipids TC 184, TG 57, HDL 90, LDL 83; 03/05/20 TC 175, TG 57, HDL 90, LDL 74; goal LDL < 70; on zetia 10mg QD: Impression: 03/20/19 nl Lexiscan stress test, EF 65%; 03/05/19 stable lipids TC 172, TG 47, HDL 87, LDL 76; on zetia 10mg QD; goal LDL < 70; 02/12/2015 - check lipids on zetia Impression: 02/09/2014 - await lipids with goal LDL < 100 ADDENDUM: lipids at goal on zetia #90, 3RF; Assessment & Plan (06/03/2023 10:12 PM EST): Needs updated lipids on zetia 10mg QD - renew when labs available; goal LDL < 70 Assessment & Plan (03/24/2022 10:08 PM EST): Needs updated lipids with goal LDL < 70; on zetia 10mg QD #90,3 RF Assessment & Plan (03/19/2021 1:03 PM EST): Lipids borderline but stable with LDL 83; goal LDL < 70; on zetia 10mg QD #90, 3RF Assessment & Plan (03/13/2020 12:25 PM EST): Lipids near goal with LDL 74 with goal < 70; cont zetia 10mg QD #90, 3RF Assessment & Plan (03/08/2019 2:49 AM EDT): Stable lipids, LDL 76, on zetia 10mg QD #90, 3RF Assessment & Plan (03/06/2018 11:57 PM EDT): Update lipids with goal LDL < 100; on zetia 10mg QD #90, 3RF Assessment & Plan (03/06/2017 2:47 PM EDT): Lipids stable on zetia 10mg QD #90, 3RF Assessment & Plan (02/29/2016 2:47 PM EDT): lipids stable on zetia 10mg QD #90,3 RF Esophageal reflux 02/18/2016 Overview (10/08/2023): 12 Feb 2015 change prevacid solutba to lansoprazole 30mg QD #90, 3RF due to cost 08/29/16 note change of lansoprazole to omeprazole 40mg QD with improved efficacy 10/05/23 [facility] discharge s/p L THR; on pantoprazole 40mg QD Assessment & Plan (10/18/2023 9:46 PM EDT): On pantoprazole while hospitalization and in rehab, but ok to resume home omeprazole 20mg QD Assessment & Plan (09/06/2018 9:13 PM EDT): Advised that she shouldn't get RX for omeprazole from both here as well as her local physician; she decides she will get it at her local physician to maintain relationship there - this is the office she goes to locally with minor complaints Assessment & Plan (03/06/2017 2:48 PM EDT): States sxs controlled with omeprazole 40mg QD, now prescribed by her local doctor Assessment & Plan (08/29/2016 1:18 PM EDT): Notes sxs better with omeprazole 40mg QD than lansoprazole; discussed taking it daily, 30 min before 1st meal of day; reviewed risks of untreated reflux Type 2 diabetes 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 Dunia - no DMR, dry mac degen OU; 03/08/22 [facility]/Dr. Dunia abdi DMR, has dry mac degen OU; 03/14/21 stable A1C 6.0; 03/02/21 [facility]/Dr. Dunia abdi DM retinopathy; 09/09/20 A1C 6.0; 04/14/20 A1C 6.2; 03/25/20 A1C 6.05; 03/05/20 stable A1C 6.2, on amita 30mg QD met XR 750mg 2 QD; 07/16/19 y[facility]/Dr. Dunia abdi DM retinopathy; 06/27/19 improved A1C 6.0; 03/05/19 stable bord A1C 6.3 (was 5. In 09/22, 5.7 in 01/22); on amita met 15/850 BID; 11/15/16 y[facility]/Dr. Dunia abdi DM retinopathy Assessment & Plan (11/12/2023 10:38 PM EDT): BG control improved with A1C 5.5; will d/c met ER 500mg QD (previously 1500mg QD) Assessment & Plan (10/18/2023 9:52 PM EDT): BGs were stable during hospitalization, mostly 100-130s; pioglitazone was held during hospitalization; metformin ER decreased to 500mg QD during rehab (previously on 750mg 2 QD); cont home BG monitoring (rec fasting and 2h postprandial BGs) and cont met ER 500mg QD; f/u A1C in 1 month Assessment & Plan (08/31/2023 12:55 PM EDT): FBGs acceptable 10-110s; cont met ER 750mg 2 QD and amita 30mg QD, RXs given for 30d supply while she awatis mail order RXs; f/u A1C in 4 mos Assessment & Plan (06/05/2023 2:01 PM EST): BG control stable with A1C 6.4; cont met ER 750mg 2 QD #180, 3RF and amita 30mg QD #90, 3RF; cont to monitor renal function on metformin; encouraged reg phys activity to decr insulin resistance, moderation in unhealthy starches/sweets; f/u A1C in 6 mos Assessment & Plan (09/23/2022 2:09 PM EDT): BG control stable with A1C 6.3; cont met ER 750mg 2 QD and amita 30mg QD; encouraged reg phys activity to decr insulin resistance, moderation in unhealthy starches/sweets; f/u A1C in 6 mos Assessment & Plan (05/28/2022 3:12 PM EST): F/u A1C in 4 mos as scheduled Assessment & Plan (03/24/2022 10:13 PM EST): BG control stable with A1C 6.1; cont met ER 750mg 2 QD; encouraged reg phys activity to decr insulin resistance, moderation in unhealthy starches/sweets; f/u A1C in 6 mos Assessment & Plan (09/19/2021 2:48 PM EDT): BG control stable with A1C 6.0; cont met ER 750mg 2 QD and amita 30mg QD; encouraged reg phys activity to decr insulin resistance, moderation in unhealthy starches/sweets; f/u A1C in 6 mos Assessment & Plan (03/19/2021 1:00 PM EST): BG control stable with A1C 6.0; cont met ER 750mg 2 QD #180, 3RF and amita 30mg QD #90, 3RF; encouraged reg phys activity to decr insulin resistance, moderation in unhealthy starches/sweets; f/u A1C in 6 mos Assessment & Plan (09/09/2020 1:04 PM EDT): BG control stable with A1C 6.0; cont met ER 750mg 2 QD and amita 30mg QD; encouraged reg phys activity to decr insulin resistance, moderation in unhealthy starches/sweets; f/u A1C in 6 mos Assessment & Plan (07/02/2020 6:24 AM EST): Update A1C in 3 mos; remains on met XR 1500mg QD Assessment & Plan (06/01/2020 6:17 AM EST): F/u A1C in 4 mos as scheduled; cont met XR 750mg 2 QD and amita 30mg QD Assessment & Plan (04/27/2020 10:19 AM EST): Stable BG control with A1C 6.2; on met ER 750mg 2 QD and amita 30mg QD; discussed if kidney functions worsens further, will not be able to cont metformin; encouraged reg phys activity to decr insulin resistance, moderation in unhealthy starches/sweets; f/u A1C in 6 mos Assessment & Plan (04/06/2020 1:17 PM EST): BG control stable with recent A1C 6.05; cont met ER 750mg 2 QD and amita 30mg QD; encouraged reg phys activity to decr insulin resistance, moderation in unhealthy starches/sweets; f/u A1C in 6 mos Note - will not be able to cont metformin if renal function remains worsened Assessment & Plan (03/13/2020 12:23 PM EST): BG control minimally worsened over the last yr but acceptable with A1C 6.2; encouraged regular phys activity as possible and moderation in sweets/starches; cont amita 30mg QD #90, 3RF and met XR 750mg 2 QD #180, 3RF; encouraged reg phys activity to decr insulin resistance, moderation in unhealthy starches/sweets; f/u A1C in 6 mos Assessment & Plan (12/27/2019 10:21 AM EDT): BG control stable with A1C 6.0; cont met ER 750mg 2 QD and amita 30mg QD Assessment & Plan (07/11/2019 1:00 PM EST): Reminder needs annual eye exam, pending 07/16/19 per pt; recent 06/26 A1C 6.0; on amita 30mg QD and met XR 1500mg QD; will f/u in 6 mos Assessment & Plan (06/28/2019 1:25 AM EST): BG control improved with A1C 0.0; remains on metformin ER 750 mg 2 tabs QD; encouraged reg phys activity to decr insulin resistance, moderation in unhealthy starches/sweets; reminder needs annual eye exam; f/u A1C in 6 mos Assessment & Plan (03/08/2019 2:48 AM EDT): BG control mildly worsened with A1C 6.3 (was 5.8 in 09/22): remains on amita-met 15/850mg BID; encouraged reg phys activity to decr insulin resistance, moderation in unhealthy starches/sweets; f/u A1C in 3 mos Assessment & Plan (09/06/2018 8:12 PM EDT): BG control stable with a1C 5.8; on amita-met 15/850 BID; encouraged reg phys activity to decr insulin resistance, moderation in unhealthy starches/sweets; f/u A1C in 6 mos Assessment & Plan (03/07/2018 12:01 AM EDT): A1C 5.7 in 01/22 on amita met 15/850 BID #180, 3RF; encouraged reg phys activity to decr insulin resistance, moderation in unhealthy starches/sweets; f/u A1C in 6 mos Assessment & Plan (02/01/2018 12:42 PM EDT): BG control improved/good with A1C 5.7; encouraged reg phys activity to decr insulin resistance, moderation in unhealthy starches/sweets; f/u A1C in 6 mos Assessment & Plan (07/27/2017 11:45 AM EDT): encouraged reg phys activity to decr insulin resistance, moderation in unhealthy starches/sweets; f/u A1C in 6 mos Assessment & Plan (06/26/2017 11:34 AM EST): BG control stable with A1C 6.3; encouraged reg phys activity to decr insulin resistance, moderation in unhealthy starches/sweets; f/u A1C in 6 mos Assessment & Plan (03/06/2017 2:48 PM EDT): BG control sl worsened but acceptable with A1C 6.2 (prev 5.7); encouraged reg phys activity to decr insulin resistance, moderation in unhealthy starches/sweets; f/u A1C in 3-4 mos Assessment & Plan (11/28/2016 1:15 PM EDT): Commended patient on improved BG control with A1C 5.7; encouraged reg phys activity to decr insulin resistance, moderation in unhealthy starches/sweets; f/u A1C in 3 mos Assessment & Plan (08/29/2016 1:19 PM EDT): BG control mildly worsened with A1C 5.7 up to current 6.4; updated DM eye exam upcoming at [facility] - will do this summer - request that she request note from them; encouraged reg phys activity to decr insulin resistance, moderation in unhealthy starches/sweets; f/u A1C in 3 mos Assessment & Plan (02/29/2016 2:48 PM EDT): BG control remains good/stabl without hypoglycemia on actoplusmet 15/850 BID #180, 3RF; healthy nutrition and phys activity as tolerated Dysfunction of right eustachian tube 02/18/2016 Overview (02/29/2016): rec nika NS #3, 1RF, reviewed how to use correctly Assessment & Plan (03/10/2019 2:13 PM EST): Agree with having hearing evaluated Hypertension 02/18/2016 Overview (11/12/2023): 11/12/23 BP machine verified; no meds; 10/18/23 BP 132/68; no BP meds; 10/05/23 [facility] discharge s/p L THR - irbesartan still on hold; 09/25/23 discharge - irbesartan on hold, also rec low K diet; 06/17/23 D/D meds - amlo/atorvastatin 5/40 QD (prev zetia 10mg QD); 06/01/20 BP 140/78, change losartan to irbesartan 300mg QD; 05/18/20 incr losartan 100mg QD; off of amlo; 04/27/20 decr amlo 5mg QD and add losartan 50mg QD; 03/27/20 temporarily change amlo/benaz 5/40 to amlo 10mg QD due to worsened renal function and K 5.4; Impression: 06/27/19 BP stable 122/68 on amlo benaz 5/40 QD; 03/20/19 nl Lexiscan stress test, EF 65%; 03/10/19 stable BP 132/70 on amlo benaz 5/40 QD; 08/16/2015 - BP stable Impression: 02/12/2015 - BP stable on amlo/benaz; low Na diet Impression: 08/10/2014 - BP excellent on current meds Impression: 02/09/2014 - BP and electrolytes stable on amlo/benaz #90, 3RF and HCTZ #90, 3RF; low Na diet; Assessment & Plan (02/21/2024 1:21 PM EDT): BP stable 122/62; no meds Assessment & Plan (01/19/2024 12:35 AM EDT): BP elevated/abnormal, improved/bord on repeat; remains on no meds; needs to check home BPs and bring BP cuff to f/u Assessment & Plan (11/12/2023 10:42 PM EDT): BP mildly elevated but home readings remain acceptable 110-130s systolic; no meds (previously irbesartan 300mg QD); BP machine verified today; cont home BP monitoring QD (currently checking BID) Assessment & Plan (10/18/2023 9:45 PM EDT): Irbesartan held during hospitalization and subacute rehab due to nl BPs and bord hyperkalemia; BP bord today but normotensive at home; cont monitoring BPs 1x/day and cont to hold irbesartan for now; rec low Na diet and cont PT; f/u in 1 month Assessment & Plan (08/31/2023 12:54 PM EDT): BP mildly elevated, improved on repeat; cont irbesartan 300mg QD and rec that patient take med with a sm sip of water on the morning of surgery Assessment & Plan (06/28/2023 7:30 PM EST): BP mildly elevated, likely exac'd by hip pain; cont irbesartan 300mg QD and rec home monitoring with goal < 130/80; consider addition of amlodipine if remains elevated Assessment & Plan (06/05/2023 1:58 PM EST): BP mildly elevated 142/90, likely exac'd by severe left hip/groin pain; cont irbesartan 300mg QD #90, 3RF; needs electrolytes for drug monitoring Assessment & Plan (03/15/2023 7:49 PM EST): BP mildly elevated, likely exac'd by left leg/hip/back pain; cont irbesartan 300mg QD; goal < 130/80; f/u in 1 month with next wellness Assessment & Plan (09/23/2022 2:09 PM EDT): BP elevated, improved on repeat; cont irbesartan 300mg QD; rec cont home monitoring with goal < 130/80 Assessment & Plan (05/29/2022 9:47 PM EST): BP elevated, but machine is reading accurately and bord/acceptable BPs at home in the 130s; reviewed correct use of BP machine (artery was not lined up correctly); encouraged phys activity as tolerable and low Na diet; cont irbesartan 300mg QD; rec cont home monitoring with goal < 130/80; f/u in 4 mos at the latest Assessment & Plan (03/24/2022 10:09 PM EST): BP elevated, worsened on repeat; rec low Na diet (< 2000 mg/day, ideally < 1500 mg/day) and increased aerobic exercise; rec starting home BP monitoring with goal BP < 130/80; f/u in 2 mos for BP check Assessment & Plan (09/19/2021 2:48 PM EDT): BP stable 124/64; cont irbesartan 300mg QD Assessment & Plan (03/21/2021 12:45 PM EST): BP stable 132/74; cont irbesartan 300mg QD #90, 3RF with goal <130/80 Assessment & Plan (09/09/2020 11:12 AM EDT): BP 124/70 on irbesartan 300mg QD; goal < 130/80 Assessment & Plan (07/02/2020 1:44 PM EST): BP improved on irbesartan 300mg QD #90, 2RF; cont home monitoring with goal < 130/80; also sent RX for #30, 0RF to local pharmacy Assessment & Plan (06/01/2020 5:19 PM EST): BP remains mildly elevated on losartan 100mg QD with goal < 130/80; discussed options to add medication (such as low-dose amlodipine 2.5mg QD) or change to more potent ARB; she does not want to utilize diuretic with baseline urinary frequency and does not want to utilize beta-kelli with risk of fatigue; note previous possible worsened leg swelling on amlodipine 5 mg dose; will d/c losartan and RX irbesartan 300mg QD #30, 1RF; rec low Na diet, increased aerobic exercise; cont home BP monitoring with goal BP < 130/80 and f/u in 1 month; BMP on the way out the door for drug monitoring on ARB Assessment & Plan (05/18/2020 5:32 PM EST): BP elevated on on losartan 50mg QD; note she actually threw away her amlodipine and does not think that pharmacy will refill it; incr losartan to 100mg QD #30, 1RF; cont home monitoring with her wrist cuff and f/u in 2 wks Assessment & Plan (04/27/2020 10:19 AM EST): BP bord/stable on amlo 10mg QD but having ankle swelling; decrease amlodipine to 5mg QD #90, 3RF; Concern for resuming benazepril due to worsened renal function and hyperkalemia, both now resolved off of benazepril; concern for poss recurrnet hyponatremia if we try a thiazide; concern for fatigue with beta-kelli; unsure exact etiology of recent hyponatremia; will try losartan 50mg QD #30, 0RF noting that it could also exacerbate renal function and cause hyperkalemia like benazepril; alternatively, if has nephroprotective effect; discussed how to use wrist monitor correctly and advised her to bring to her next appt; f/u in 3-4 wks BP check and BMP Assessment & Plan (04/06/2020 1:17 PM EST): Recent change of amlo/benaz 5/40 to amlo 10mg QD due to workup of persistent hyponatremia; repeat BP still mildly elevated; discussed how to measure Bps with wrist cuff correctly; cont home monitoring with goal < 130/80 Assessment & Plan (03/13/2020 12:25 PM EST): BP stable 118/68 on amlo benaz 5/40 QD #90, 3RF Assessment & Plan (12/26/2019 12:01 AM EDT): BP stable on amlo benaz 5/40 QD; goal < 130/80 Assessment & Plan (07/11/2019 1:00 PM EST): BP remains stable 118/60; on amlo benaz 5/40 QD Assessment & Plan (06/28/2019 1:25 AM EST): BP stable 122/68 on amlo benaz 5/40 QD Assessment & Plan (03/08/2019 2:49 AM EDT): BP and electrolytes stable on amlo benaz 5/40 QD Assessment & Plan (09/06/2018 8:12 PM EDT): BP mildly elevated today - abnormal; remains on amlo benaz 5/40 QD; rec checking BPs at home with goal < 130/80 Assessment & Plan (03/06/2018 11:58 PM EDT): BP stable; check electrolytes on amlo benaz 5/40 QD #90, 3RF Assessment & Plan (02/01/2018 12:41 PM EDT): BP stable on amlo benaz 5/40 QD;remains off of HCTZ (stopped due to hypoNa) Assessment & Plan (07/28/2017 12:36 AM EDT): BP remains bord with goal < 130/80; BP mildly increased off of HCTZ; remains on amlo/benaz 5/40 QD; plan to eval of improved BP control with increased phys activity in the spring/summer months; agree with joining friends who go to the hospital for senior exercise program; cont home monitoring with goal BP < 130/80 Assessment & Plan (06/26/2017 1:21 PM EST): BP stable on amlo/benaz 5/40 but will d/c HCTZ due to hyponatremia; have her monitor local BPs with goal < 130/80; will need to add additional med if consistently > 140/90 Assessment & Plan (03/06/2017 2:47 PM EDT): BP and electrolytes stable on amlo/benaz 5/40 QD and HCTZ 25mg QD, both #90, 3RF Assessment & Plan (11/28/2016 1:14 PM EDT): BP stable on HCTZ 25mg QD Assessment & Plan (08/29/2016 12:55 PM EDT): BP stable on HCTZ 25mg QD Assessment & Plan (02/29/2016 2:45 PM EDT): BP stable on HCTZ 25mg QD #90, 3RF and amlodipine benaz 5/40 QD #90, 3RF Cataract 02/18/2016 Overview (02/18/2016): ?? s/p bilat cataract surgery (11/17 and 12/18); ophtho - Dr. Duque Osteoporosis 02/18/2016 Overview (10/08/2023): ?? by DEXA (04/10); DEXA (11/16) L -0.1, H -1.8 ?? Last Impression: 12 Feb 2015 Ca/vit D and WBE; repeat DEXA 2015 Betsy Smith (Internal Medicine) DEXA (03/09/16) L -1.1 H -2.2, A -4.2 DEXA (06/30/19) L -1.4, H -2.0, H -5.4, worsened, repeat 2 yrs; rec Ca and WBC, cont vit D 1000 units QD; add alendronate 70mg weekly, repeat DEXA 2 yrs DEXA (11/16/22) L -0.2, H -0.9, A -5.4 , stable, cont Ca/vit D/alendronate 10/05/23 [facility] discharge s/p L THR - alendronate on hold per ortho Dr. Bustillos Assessment & Plan (10/18/2023 9:47 PM EDT): Ok to resume alendronate 70mg weekly Assessment & Plan (06/05/2023 2:00 PM EST): Calcium and vitamin D supplementation with weight-bearing exercise; remains on alendronate 70mg weekly #13, 3RF; DEXA 11/26, repeat 2024 Assessment & Plan (09/20/2022 11:15 PM EDT): Overdue for DEXA; remains on alendronate 70mg weekly with Ca/vit D Assessment & Plan (03/24/2022 10:12 PM EST): Calcium and vitamin D supplementation with weight-bearing exercise and alendronate 70mg weekly #13, 3RF; DEXA ordered - counseling with patient re: fx risk evaluation/reduction Assessment & Plan (03/19/2021 1:00 PM EST): Calcium and vitamin D supplementation with weight-bearing exercise; also cont alendronate 70mg weekly #13, 3RF; DEXA 06/26, repeat 2021 Assessment & Plan (03/13/2020 12:22 PM EST): Await repeat BMP to decide on dose of alendronate (will need to d/c if abnl) - wants RX sent to [facility]; ADDENDUM: renal function back to baseline with Cr 1.07, GFR 49; Calcium and vitamin D supplementation with weight-bearing exercise and alendronate 70mg weekly #13, 3RF; DEXA 06/26, repeat 2021 Assessment & Plan (12/27/2019 10:26 AM EDT): On alendronate 70mg weekly with Ca/vit D supplementation; rec weight-bearing exercise; plan to repeat DEXA 2021 Assessment & Plan (07/11/2019 1:02 PM EST): Worsened DEXA with worst T score -5.4 at the radius; reviewed goals of tx to decr fx risk; reviewed calcium and vitamin D supplementation with weight-bearing exercise; med options, risks, side effects, and goals reviewed with patient; she will proceed with alendronate 70mg weekly #13, 2RF; also note 02/22 GFR 50; repeat DEXA 06/2021 - if worsened, rec consideration for Forteo (or Tymlos) at that time; also may need to decr dose if kidney function worsens Assessment & Plan (03/08/2019 2:47 AM EDT): Calcium and vitamin D supplementation with weight-bearing exercise; DEXA ordered Assessment & Plan (03/07/2018 12:01 AM EDT): Calcium and vitamin D supplementation with weight-bearing exercise; DEXA 03/22, repeat 2019 Assessment & Plan (03/06/2017 2:49 PM EDT): Calcium and vitamin D supplementation with weight-bearing exercise; DEXA 03/22, consider repeating 2019 Osteoarthritis 02/18/2016 Diverticulosis of colon 02/18/2016 Overview (02/29/2016): colonoscopy 09/11 , GI - Dr. Shen (previously Dr. Egan) Allergic rhinitis 02/18/2016 Overview (02/29/2016): 10 Aug 2014 rec more aggressive symptomatic therapy with antihistamine and nasal steroid spray; reviewed how to use correctly Assessment & Plan (05/29/2022 9:50 PM EST): Agree with resuming flonase 2 sprays/nostril QD - correct use reviewed; also rec addition of antihistamine QD for runny nose Assessment & Plan (03/06/2017 2:47 PM EDT): Has resumed flonase #3, 3RF Assessment & Plan (02/29/2016 3:20 PM EDT): Reviewed again how to use flonase #3, 3RF correctly Encounters Date Type Department Care Team Description 02/25/2024 Telephone [facility] [address] [place] [phone] Betsy Smith MD 02/21/2024 9:30 AM EDT Office Visit [facility] [address] [place] [phone] Betsy Smith MD Overflow incontinence of urine (Primary Dx); Mild cognitive impairment; Hypertension; Stage 3a chronic kidney disease; Hyponatremia 02/21/2024 Travel 01/21/2024 Telephone [facility] [address] [place] [phone] Betsy Smith MD 01/21/2024 Telephone [facility] [address] [place] [phone] Betsy Smith MD 01/18/2024 3:40 PM EDT Lab [facility] [address] [place] [phone] Hyponatremia 01/18/2024 2:30 PM EDT Office Visit [facility] [address] [place] [address] Betsy Smith MD Hypertension (Primary Dx); Hyponatremia; Overflow incontinence of urine; Constipation; Mild cognitive impairment; Vaccine counseling; Need for influenza vaccination; Need for COVID-19 vaccine; Sensorineural hearing loss (SNHL) of both ears; Stage 3a chronic kidney disease from Last 3 Months Immunizations Name Administration Dates Next Due Arexvy (RSV, Adults 60+ yrs) 07/02/2023 COVID-19 (MODERNA) 1st,2nd,3 rd Dose Monovalent 12/07/2021,02/16/2021,08/04/2020,07/07 COVID-19 (PFIZER) 12YRS+ (COMIRNATY) 01/18/2024, 06/28/2023 COVID-19 (PFIZER) BIVALENT 12+YRS 09/22/2022 FluMist 2-49yrs 02/12/2015,02/09/2014,02/24/2013 Fluad Quad 65+ 03/12/2020 Fluzone (or Fluarix & Flulav al for VFC) >6mos 05/19/2021 Fluzone High-Dose 65+YRS 01/18/2024,1108/2018,02/01/2018,03/06,02/29/2016 Fluzone High-Dose 65+yrs 03/15/2023,04/05/2022 Hepatitis A 08/16/2018,02/11/2018 Influenza, Unspecified 05/19/2021 Pneumococcal Conjugate 13-Va lent (PCV13) 02/12/2015 Pneumococcal Polysaccharide (PPSV23) 03/30/2010 Shingrix 09/20/2018,02/11/2018 Tdap 05/26/2020,05/26/2020 Zostavax 09/24/2008 Family History Medical History Relation Name Comments Heart failure Father CHF Breast cancer Maternal Grandmother unknow n Diabetes Mother Kidney failure Mother Lung cancer Sister nonsmoker; (+) secondhand smoke Colon cancer Neg Hx Ovarian cancer Neg Hx Relation Name Status Comments Father (Age 87) Maternal Grandmother Mother (Age 92) Sister Social History Tobacco Use Types Packs/Day [...] 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 Not on file Not on [facility] Last Filed Vital Signs Vital Sign Reading Time Taken Comments Blood Pressure 122/62 02/21/2024 9:31 AM EDT Pulse 68 02/21/2024 9:31 AM EDT Temperature 36.7 ??C (98.1 ??F) 11/12/2023 2:03 PM ED T Respiratory Rate 16 02/21/2024 9:31 AM EDT Oxygen Saturation 100% 02/21/2024 9:31 AM EDT Inhaled Oxygen Concentration - - Weight 65.9 kg (145 lb 3.2 oz) 02/21/2024 9:31 A M EDT Height 167.6 cm (5' 6 ) 02/21/2024 9:31 AM EDT Body Mass Index 23.44 02/21/2024 9:31 AM EDT Plan of Treatment Upcoming Encounters Date Type Department Care Team (Late st Contact Info) Description 06/09/2024 3:00 PM EST Office Visit [facility] [address] [place] [phone] Betsy Smith MD [address] [place] [address] Health Maintenance Due Date Last Done Comments COLON CANCER SCREENING 5 YEA R SIGMOIDOSCOPY [address] COLONOGRAPHY 1935 FECAL OCCULT BLOOD TEST 1937 FIT Testing (1 year) 1935 COLONOSCOPY 09/04/2017 09/05/2007 COLOGUARD 03/25/2021 03/25/2018, 03/07, 03/25/2018 MOST FORM 03/22/2022 03/22/2021 DIABETIC EYE EXAM 03/21/2024 03/21/2023, , 03/21/2023, Additional history exists HEMOGLOBIN A1C 05/14/2024 11/12/2023, 0707/2023, 09/04/2023, Additional history exists ANNUAL WELLNESS VISIT 06/05/2024 06/05/2023 , 03/24/2022, 03/24/2022, Additional history exists LIPID PANEL 06/28/2024 06/28/2023, 05/09, 06/06/2023, Additional history exists URINE MICROALBUMIN 09/20/2024 09/21/2023, 0 06/29/2023, 06/06/2023, Additional history exists DXA SCAN 11/16/2025 11/16/2022, 11/04, 06/30/2019, Additional history exists TDAP/TD VACCINES (3 - Td or Tdap) 05/26/2030 021, 05/26/2020 Pneumococcal Vaccine 65+ Completed 02/12/2015, 03/08 ZOSTER VACCINE Completed 09/20/2018, 10/0 12/2017, 09/24/2008 RSV Vaccine - Adults Completed 07/02/2023 COVID-19 Vaccine Discontinued 01/18/2024, , 09/22/2022, Additional history exists INFLUENZA VACCINE Completed 01/18/2024, , 04/05/2022, Additional history exists COLORECTAL CANCER SCREENING Discontinued Procedures Procedure Name Priority Date/Time Associated Diagnosis Comments SCANNED - LABS 02/22/2024 BASIC METABOLIC PANEL Routine 01/18/2024 3:41 PM EDT Hyponatremia MICROALBUMIN / CREATININE URINE RATIO Routine 06/29/2023 2:49 PM EST Medicare annual wellness visit, subsequent HEMOGLOBIN A1C Routine 06/28/2023 1:18 PM EST Type 2 diabetes mellitus with stage 3b chronic kidney disease, without long-term current use of insulin LIPID PANEL Routine 06/28/2023 1:18 PM EST Hyperlipidemia SCANNED - EYE EXAM 03/21/2023 DEXA BONE DENSITY AXIAL Routine 11/16/2022 9:33 AM EDT Menopause Osteoporosis SCANNED - COLOGUARD 03/25/2018 HM COLONOSCOPY Routine 09/05/2007 from Last 3 Months or Most Recently Relevant to Health Maintenance Results * LABS SCANNED (02/22/2024) us Betsy Smith MD LAB BLOOD ORDERABLES Final Resul t * (ABNORMAL) Basic Metabolic Panel (01/18/2024 3:41 PM EDT) Glucose 101(H) 65 - 99 mg/dL 01/18/2024 11:47 PM EDT [facility] BUN 22 8 - 23 mg/dL 01/18/2024 11:47 PM EDT [facility] Creatinine 1.04(H) 0.57 - 1.00 mg/dL 01/18/2024 11:47 PM EDT [facility] Sodium 138 136 - 145 mmol/L 01/18/2024 11:47 PM EDT [facility] Potassium 4.8 3.5 - 5.2 mmol/L 01/18/2024 11:47 PM EDT [facility] Comment:Slight hemolysis det ected by analyzer. Result may be falsely elevated. Chloride 101 98 - 107 mmol/L 01/18/2024 11:47 PM EDT [facility] CO2 25.5 22.0 - 29.0 mmol/L 01/18/2024 11:47 PM EDT [facility] Calcium 11.5(H) 8.6 - 10.5 mg/dL 01/18/2024 11:47 PM EDT [facility] BUN/Creatinine Ratio 21.2 7.0 - 25.0 01/18/2024 11:47 PM EDT [facility] Anion Gap 11.5 5.0 - 15.0 mmol/L 01/18/2024 11:47 PM EDT [facility] eGFR 52.5(L) >60.0 mL/min/1.7 3 01/18/2024 11:47 PM EDT [facility] Blood Venipuncture / Unknown 01/18/2024 3:41 PM EDT 01/18/2024 3:41 PM EDT Narrative [facility] - 01/18/2024 11:47 PM EDT GFR Normal >60 Chronic Kidney Disease <60 Kidney Failure <15 The GFR formula is only valid for adults with stable renal function between ages 18 and 70. us Betsy Smith MD LAB BLOOD ORDERABLES Final Resul t [facility]
[address] [place] [address], * Microalbumin / Creatinine Urine Ratio - Urine, Clean Catch (06/29/2023 2:49 PM EST) Microalbumin/C reatinine Ratio 20.0 0.0 - 29.0 mg/g 06/30/2023 12:55 AM EST [facility] Creatinine, Urine 155.2 mg/dL 06/30/2023 12:55 AM EST [facility] Microalbumin, Urine 3.1 mg/dL 06/30/2023 12:55 AM EST [facility] Urine Urine specimen obtained by clean catch procedure / Unknown Collection / Unknown 06/29/2023 2:49 PM EST 06/29/2023 2:49 PM EST us Betsy Smiht MD URINE ORDERABLES Final Result Performing Organization Address [facility] Co de Phone Number [facility]
[address] [place] [address], * (ABNORMAL) Hemoglobin A1c (06/28/2023 1:18 PM EST) [facility] Hemoglobin A1C 6.30(H) 4.80 - 5.60 % 06/28/2023 7:45 PM EST [facility] Blood Venipuncture / Unknown 06/28/2023 1:18 PM EST 06/28/2023 1:18 PM EST Narrative [facility] - 06/28/2023 7:45 PM EST Hemoglobin A1C Ranges: Increased Risk for Diabetes ??5.7% to 6.4% Diabetes ? >= 6.5% Diabetic Goal ?< 7.0% us Betsy Smith MD LAB BLOOD ORDERABLES Final Resul t Performing Organization Address City/[facility] Co de Phone Number [facility]
[address] [place] [address], * (ABNORMAL) Lipid Panel (06/28/2023 1:18 PM EST) [facility] Total Cholesterol 184 0 - 200 mg/dL 06/28/2023 7:21 PM [facility] Triglycerides 56 0 - 150 mg/dL 06/28/2023 7:21 PM [facility] HDL Cholesterol 79(H) 40 - 60 mg/dL 06/28/2023 7:21 PM [facility] LDL Cholesterol 94 0 - 100 mg/dL 06/28/2023 7:21 PM [facility] VLDL Cholesterol 11 5 - 40 mg/dL 06/28/2023 7:21 PM [facility] LDL/HDL Ratio 1.19 06/28/2023 7:21 PM [facility] Blood Venipuncture / Unknown 06/28/2023 1:18 PM EST 06/28/2023 1:18 PM EST [facility] - 06/28/2023 7:21 PM EST Cholesterol Reference Ranges (U.S. Department of Health and Human Services ATP III Classifications) Desirable ?<200 mg/dL Borderline High ?200-239 mg/dL High Risk ?>240 mg/dL Triglyceride Reference Ranges (U.S. Department of Health and Human Services ATP III Classifications) Normal ? <150 mg/dL Borderline High ??150-199 mg/dL High ? 200-499 mg/dL Very High ?>500 mg/dL HDL Reference Ranges (U.S. Department of Health and Human Services ATP III Classifications) Low ? <40 mg/dl (major risk factor for CHD) High ?>60 mg/dl ('negative' risk factor for CHD) LDL Reference Ranges (U.S. Department of Health and Human Services ATP III Classifications) Optimal ?<100 mg/dL Near Optimal ? 100-129 mg/dL Borderline High ??130-159 mg/dL High ? 160-189 mg/dL Very High ?>189 mg/dL Betsy Smith MD LAB BLOOD ORDERABLES Final Resul t [facility]
[address] [place] [address], * SCANNED - EYE EXAM (03/21/2023) Anatomical Region Laterality Modality Other Betsy Smith MD CHART REVIEW TABS Final Resul t * DEXA Bone Density Axial (11/16/2022 9:33 AM EDT) Anatomical Region Laterality Modality Wrist, Hip, L-spine N/A Other 11/16/2022 10:1 5 AM EDT Impressions 11/20/2022 2:54 PM EDT Osteopenia of the left femoral neck. Osteoporosis of the one third left forearm The ten year fracture risk assessment is calculated at 16% for major systemic osteoporotic fracture and 3.3% for a hip fracture. Less than 3% risk in the [place] for hip fracture and less than 20% risk of any systemic osteoporotic fracture is considered less than the threshold for where pharmacological therapy is recommended by the National Osteoporosis Foundation. All the treatment decisions require clinical judgment and consideration of individual patient factors, including patient preferences, co-morbidities, previous drug use, risk factors not captured in the FRAX model (frailty, falls, vitamin D deficiency, increased bone turnover, interval significant decline in bone density) and possible under or over estimation of fracture risk by FRAX. Approaches to reduce osteoporosis related fracture risk include optimizing calcium and vitamin D status, appropriate weight bearing exercises and fall-prevention measurements. ??The National Osteoporosis Foundation recommends (http://www.nof.org/hcp/practice/rifelhho-aas-hymxaspa-guidelines/clinicians-hussein de) that FDA-approved medical therapies be considered in postmenopausal women and men aged equal or greater than 50 years with : ??a) hip or vertebral (clinical or morphometric) fracture; b) T-score of -2.5 or less at the spine or hip; c) Ten-year fracture probability by FRAX of greater than 3% for hip fracture of greater than 20% for major osteoporotic fracture. ?? Secondary causes of bone loss should be evaluated if clinically indicated since the etiology of low BMD cannot be determined by BMD measurement alone. FOLLOWUP: Consider repeating the study in 2-3 years to reassess the patient's status or sooner if there is some new clinical indication. INTERVAL CHANGE: ?? There was an increase in bone mineral density of the L1-L4 vertebrae by 13.7%, total left hip by 5.4%, and a decrease in bone mineral density of the one third left forearm by 0.4% when compared to previous study performed on 06/30/2019. Significant increase in bone mineral density of the lumbar spine may be due to sclerotic, and/or arthropathic changes, as the patient has not reported a history with osteoporosis treatment. ?? At this facility, the least significant change in the BMD at the left hip with 95% confidence is 0.802374 gm/cm2 at the hip and 0.890165 g/cm2 at the lumbar spine. Electronically Signed: Colt Leavitt 11/20/2022 2:54 PM EDT Workstation ID: [id number] Narrative 11/20/2022 2:54 PM EDT DUAL-ENERGY X-RAY ABSORPTIOMETRY (DXA) INDICATION: Postmenopausal, osteoporosis, prior fracture COMPARISON: Previous bone mineral density exam performed on 06/30/2019 PROCEDURE: A DXA scan was performed using a Hologic densitometer. The lumbar spine L1-L4 was evaluated as well as left total hip, and the left forearm. The T-score compares the patient's bone mineral density with the peak bone mass of young normal patients. ??According to criteria established by the World Health Organization, patients with T-scores ??between 1.0 and 2.5 standard deviations BELOW the mean are osteopenic (low bone mass). ??Patients with T-scores EQUAL TO OR GREATER than 2.5 standard deviations below the mean are osteoporotic. The Z-score compares the patient bone mineral density with age and sex matched peers. ??According to the International Society for Clinical Densitometry's 2007 consensus conference: ??In women prior to menopause and men less than age 50, Z-scores, not T-scores are preferred. ??A Z-score of -2.0 or lower is defined as below the expected range for age and a Z-score above -2.0 is within the expected range for age. ??The WHO diagnostic criteria may be applied in women in the menopausal transition. ?? Osteoporosis cannot be diagnosed in men under age 50 on the basis of BMD alone. TECHNICAL QUALITY: ??The study is of good technical quality. RESULTS: Lumbar Spine: ??The BMD measured in the L1-L4 region is 1.030 g/cm2. ??The average T-score is -0.2. ??The Z-score is not applicable. Total Hip: ??The BMD measured at the left total proximal femur is 0.739 negative g/cm2. ??The T-score is 1.7. ??The Z-score is not applicable. Femoral Neck: ??The BMD measured at the left femoral neck is 0.753 g/cm2. ??The T-score is -0.9. ??The Z-score is not applicable. 1/3 Radius: ??The BMD measured at the left one-third radius is 0.369 g/cm2. ??The T-score is -5.4. ??The Z-score is not applicable. Procedure Note Gemma Starr PA - 11/20/2022 DUAL-ENERGY X-RAY ABSORPTIOMETRY (DXA) INDICATION: Postmenopausal, osteoporosis, prior fracture COMPARISON: Previous bone mineral density exam performed on 06/30/2019 PROCEDURE: A DXA scan was performed using a Hologic densitometer. The lumbar spine L1-L4 was evaluated as well as left total hip, and theleft forearm. The T-score compares the patient's bone mineral density with the peak bonemass of young normal patients. According to criteria established by the[facility] Health Organization, patients with T-scores between 1.0 and 2.5standard deviations BELOW the mean are osteopenic (low bone mass). Patients with T-scores EQUAL TO ORGREATER than 2.5 standard deviations below the mean are osteoporotic. The Z-score compares the patient bone mineral density with age and sexmatched peers. According to the International Society for ClinicalDensitometry's 2007 consensus conference: In women prior to menopause andmen less than age 50, Z-scores, not T-scores are preferred. A Z-score of -2.0 or lower is defined as belowthe expected range for age and a Z-score above -2.0 is within theexpected range for age. The WHO diagnostic criteria may be applied inwomen in the menopausal transition. Osteoporosis cannot be diagnosed in men under age 50 on the basis of BMDalone. TECHNICAL QUALITY: The study is of good technical quality. RESULTS: Lumbar Spine: The BMD measured in the L1-L4 region is 1.030 g/cm2. Theaverage T- score is -0.2. The Z-score is not applicable. Total Hip: The BMD measured at the left total proximal femur is 0.739negative g/cm2. The T-score is 1.7. The Z-score is not applicable. Femoral Neck: The BMD measured at the left femoral neck is 0.753 g/cm2.The T- score is -0.9. The Z-score is not applicable. 1/3 Radius: The BMD measured at the left one-third radius is 0.369 g/cm2.The T- score is -5.4. The Z-score is not applicable. IMPRESSION: Osteopenia of the left femoral neck. Osteoporosis of the one third leftforearm The ten year fracture risk assessment is calculated at 16% for majorsystemic osteoporotic fracture and 3.3% for a hip fracture. Less than 3%risk in the [place] for hip fracture and less than 20% risk of anysystemic osteoporotic fracture is considered less than the threshold for where pharmacological therapy isrecommended by the National Osteoporosis Foundation. All the treatment decisions require clinical judgment and consideration ofindividual patient factors, including patient preferences, co-morbidities,previous drug use, risk factors not captured in the FRAX model (frailty,falls, vitamin D deficiency, increased bone turnover, interval significant decline in bone density) andpossible under or over estimation of fracture risk by FRAX. Approaches toreduce osteoporosis related fracture risk include optimizing calcium andvitamin D status, appropriate weight bearing exercises and fall-prevention measurements. The NationalOsteoporosis Foundation recommends(http://www.nof.org/hcp/practice/wpjnzlbi-uvi-njdooqbv-guidelines/clin ician s-guide) that FDA-approved medical therapies be considered in postmenopausal women and men aged equal or greater than 50 years with :a) hip or vertebral (clinical or morphometric) fracture; b) T-score of-2.5 or less at the spine or hip; c) Ten-year fracture probability by FRAXof greater than 3% for hip fracture of greater than 20% for major osteoporotic fracture. Secondary causes of bone loss should be evaluated if clinically indicatedsince the etiology of low BMD cannot be determined by BMD measurementalone. FOLLOWUP: Consider repeating the study in 2-3 years to reassess thepatient's status or sooner if there is some new clinical indication. INTERVAL CHANGE: There was an increase in bone mineral density of theL1-L4 vertebrae by 13.7%, total left hip by 5.4%, and a decrease in bonemineral density of the one third left forearm by 0.4% when compared toprevious study performed on 06/30/2019. Significant increase in bone mineral density of the lumbar spine may bedue to sclerotic, and/or arthropathic changes, as the patient has notreported a history with osteoporosis treatment. At this facility, the least significant change in the BMD at the left hipwith 95% confidence is 0.831680 gm/cm2 at the hip and 0.629940 g/cm2 atthe lumbar spine. Electronically Signed: Colt Leavitt 11/20/2022 2:54 PM EDT Workstation ID: [id number] Betsy Smith MD IMG DXA ORDERABLES Final Result * SCANNED - COLOGUARD (03/25/2018) Betsy Smith MD LAB BLOOD ORDERABLES Final Resul t * COLONOSCOPY (09/05/2007) [facility] Colonoscopy colonoscopy 09/11 , GI - Dr. Shen (previously Dr. Egan) Michael Provider HEALTH MAINTENANCE Final Result from Last 3 Months or Most Recently Relevant to Health Maintenance Insurance [facility] MEDICARE A & B Advance Directives Documents on File Type Date Recorded Patient Back Joiner Expl anation (CANDIDA) MG - SCAN 03/22/2021 12:49 PM MOST PATTERSON , 03/21/2021 Healthcare Agents on File Name Relationship [facility] Nory Perales [facility] Surrogate Care Teams Clothes Drier Repairer Relationship Specialty Start Date End Date Betsy Smith MD [address] [place] [id number] PCP - General 02/08/15
--- OUTSIDE RECORDS SUMMARY | 2024-03-25 02:47 | XMS_ITS | Encounter Summary ---
Author Organization [facility] Address [address] [place] [address] Care Team Providers Care Rn Physician Office Name Role Phone Betsy Smith Primary Care Provider [phone] Reason for Visit * Reason Onset Date Comments HCN Clinical Concern/Question 08/31/2023 Encounter Details Date Type Department Care Team (Late st Contact Info) Description 08/31/2023 Telephone [facility] [address] [place] [phone] Griffin Bustillos MD [address] [phone] HCN Clinical Concern/Question Social History Tobacco Use Types Packs/Day Years [...] encounter Miscellaneous Notes * Telephone Encounter - Celia Sánchez - 08/31/2023 11:55 AM EDT Called and spoke w/ the pt's daughter. Informed them that I spoke with the computer networking instructor for the pre-opappts and they said that there were no open slots; they would also not be able to work them in sooner if they showed up early. They could reschedule them for another day if needed. Pt's daughter saidthey would like to keep things where they are and will try to work something out. They verbalized understanding that the appt will remain as is * Telephone Encounter - Eva Méndez - 08/31/2023 11:24 AM EDT Clinical Concern/Question Reason for Call: Patient's daughter states they have a scheduling conflict on 09/03. Would like to come earlier to preop. Around 10am if possible. Best contact number: Other: [phone] Optimal time of day to reach caller: ANYTIME Additional comments/information from caller: Not Applicable Note: Please do not reply to this message. Follow-up communication and further actions as a result of this message need to be communicated with the patient directly, if the patient is not active onMyChart. If the patient is active on MyChart, they will receive notification of the communication/outcome via [employer]. documented in this encounter Plan of Treatment Upcoming Encounters Date Type Department Care Team ([facility] Contact Info) Description 03/03/2025 1:30 PM EDT Office Visit Medical Office Building [facility] [address], [address] [place] [address] Griffin Bustillos MD [address] [facility] [address] [place] [address] documented as of this encounter Visit Diagnoses Not on filedocumented in this encounter Additional Health Concerns Assessment Noted Time A fall risk assessment has been complete d for the patient 08/14/2023 10:21 AM EDT A Body Mass Index follow-up plan has been documented for the patient 08/14/2023 12:25 PM EDT documented as of this encounter Care Teams Rn Physician Office Relationship Specialty Start Date End Date Betsy Smith [address] [place] [address] PCP - General 06/13/23 documented as of this encounter
--- OUTSIDE RECORDS SUMMARY | 2024-03-25 02:47 | XMS_ITS | Encounter Summary ---
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 file Not on le documented as of this encounter Miscellaneous Notes * Telephone Encounter - Maye Salazar MA - 01/21/2024 9:57 AM EDT Lvm for daughter to return call * Telephone Encounter - Maye Salazar MA - 01/21/2024 9:57 AM EDT ----- Message from Betsy Smith sent [...] Description 06/09/2024 3:00 PM EST Office Visit [facility] [address] [place] [phone] [place] [address] [place] [address] documented as of this encounter Visit Diagnoses Not on filedocumented in this encounter Additional Health Concerns Assessment Noted Time PHQ-2 Depression Total Score: 2 08/31/19 24 12:00 PM EDT documented as of this encounter Care Teams Batch Weigher Relationship Specialty Start Date End Date Betsy Smith MD [address] [place] [address] PCP - General 02/08/15 documented as of this encounter
--- OUTSIDE RECORDS SUMMARY | 2024-03-25 02:47 | XMS_ITS | Encounter Summary ---
Author Organization Healthcare Address [address] [place] [address] Care Team Providers Care Electromedical Service Engineer Name Role Phone Betsy Smith Primary Care Provider [phone] Encounter Details Date Type Department Care Team (Late Contact Info) Description 06/16/2023 Orders Only External Location [address] [place] [address] Sandoval Patino MD [address] [facility] [address] [place] [address] Social History Tobacco Use Types [...] Building [facility] [address] [facility], [address] [place] [address] Griffin Bustillos MD [address] [facility] [address] [place] [address] documented as of this encounter Procedures Procedure Name Priority Date/Time Associated Diagnosis Comments CT OUTSIDE IMAGES 06/16/2023 1:59 PM EST documented in this encounter Results * CT OUTSIDE IMAGES (06/16/2023 1:59 PM EST) Anatomical Region Laterality Modality Computed Tomogra phy 06/16/2023 1:59 PM EST Sandoval Patino MD IMG CT PROCEDURES Final Result documented in this encounter Visit Diagnoses Not on filedocumented in this encounter Care Teams Electromedical Service Engineer Relationship Specialty Start Date End Date Betsy Smith [address] [facility] [address] [place] [address] PCP - General 06/13/23 documented as of this encounter
--- OUTSIDE RECORDS SUMMARY | 2024-03-25 02:47 | XMS_ITS | Encounter Summary ---
Author Organization [facility] Address [address] [place] [address] Care Team Providers Care Watershed Coordinator Name Role Phone Luis Betsy Paco Primary Care Provider [phone] Reason for Referral * Consultation (Routine) - Closed Specialty Diagnoses / Procedures Referred By Mariza maher Referred To Contact Orthopaedic Surgery Diagnoses Primary localized osteoarthritis of left hip Griffin Bustillos MD [address] [facility] [employer] [address] [address] Phone: tel: fax: Griffin Bustillos MD [address] [place] [phone] Phone: tel: fax: Referral ID Status Reason Start Date Expiration Date Visits Re quested Visits Authorized [id number] Closed 06/25/2023 12/24/2024 1 1 Scheduling Instructions Please schedule patient 6 wk follow-up with Dr. Bustillos for a L [facility]. Reason for Visit * Reason Comments New Patient Left hip bone lesion * Consultation (Routine) - Closed Specialty Diagnoses / Procedures Referred By Mariza maher Referred To Contact Hematology and Oncology Diagnoses Left hip pain Lytic bone lesion of hip Primary localized osteoarthritis of left hip Freedom Huffman MD [address] [place] [address] Phone: tel: fax: [facility] [address] [place] [address] Phone: tel: fax: Referral ID Status Reason Start Date Expiration Date Visits Re quested Visits Authorized [id number] Closed 06/13/2023 12/12/2024 1 1 Encounter Details Date Type Department Care Team (Latest Contact Info) Description 06/25/2023 8:15 AM EST Office Visit [facility] On[facility] Clinic [address] [place] [address] Griffin Bustillos MD [address] [facility] [address] [place] [address] Left hip pain; Lytic bone lesion of hip; Primary localized osteoarthritis of left hip Social History Tobacco Use Types Packs/Day Years Used Date Smoking Tobacco: Never Smokeless Tobacco: Never Tobacco Cessation:Counseling Given: [...] Sign Reading Time Taken Comments Blood Pressure 151/77 06/25/2023 8:19 AM EST Pulse 74 06/25/2023 8:19 AM EST Temperature 36.8 ??C (98.2 ??F) 06/25/2023 8:19 AM ES T Respiratory Rate 16 06/25/2023 8:19 AM EST Oxygen Saturation 100% 06/25/2023 8:19 AM EST Inhaled Oxygen Concentration - - Weight 64.6 kg (142 lb 6.7 oz) 06/25/2023 8:19 A M EST Height 172.7 cm (5' 8 ) 06/25/2023 8:19 AM EST Body Mass Index 21.65 06/25/2023 8:19 AM EST documented in this encounter Miscellaneous Notes * Progress Notes - Lisseth Minor MD - 06/25/2023 8:15 AM EST Subjective: Tasneem Perales is a 88 y.o. y/o female who comes in today for evaluation of of left hip pain. Patient is accompained by her son and daughter who provide supplemental history. Patient began having left hip pain after a fall 4.5 months ago. Before the fall she was ambulating without assistive devices. Now she has to ambulating using a rolling walker or wheel chair. She has been seeing pain management for this and has received two steroid injections into her left hip. Her last injection was 05/29/23. Objective: BMI is Body mass index is 21.65 kg/m??. General: No acute distress Non labored breathing Peripheral perfusion intact Focused MSK: Left Lower Extremity: No overlying skin changes, tenderness to palpation over the greater trochanter. Pain with log roll Motor: 4/5 TA/GSC/EHL/FHL Sensory: SILT DP/SP/Sural/Saph/Tib nerve dist. Vascular: cap refill <2sec, toes wwp My independent interpretation of radiographic testing shows: Radiographic and MRI findings of femoral head collapse, bone on bone, subchondral sclerosis, and a hip effusion all consistent with advanced AVN. Notes reviewed: outside physician Results of tests reviewed: previous radiographs Assessment and plan: Left hip pain Lytic bone lesion of hip Primary localized osteoarthritis of left hip No orders of the defined types were placed in this encounter. No follow-ups on file. 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 We discussed conservative and non conservative treatment options with patient. Patient and family are interested in pursing surgical management with a hip arthroplasty. We will have patient follow-up in 6 wks at [facility] to discuss arthroplasty. Cosigned by Griffin Bustillos MD at 06/25/2023 9:24 AM EST Associated attestation - Griffin Bustillos MD - 06/25/2023 9:24 AM EST I saw and evaluated the patient with the resident/fellow. I discussed the case with the resident/fellow and agree with the findings and plan as documented. documented in this encounter Plan of Treatment Upcoming Encounters Date Type Department Care Team (Late st Contact Info) Description 03/03/2025 1:30 PM EDT Office Visit Medical Office [facility] [address], [address] [place] [address] Griffin Bustillos MD [address] [place] [address] Scheduled Referrals Name Type Priority Associated Diagnoses Orde r Schedule Ambulatory referral to Orthopaedics Joint Reconstruction Outpatient Referral Routine Primary localized osteoarthritis of left hip Expected: 08/07/2023, Expires: 12/23/2024 documented as of this encounter Visit Diagnoses Diagnosis Left hip pain Pain in joint, pelvic region and thigh Lytic bone lesion of hip Primary localized osteoarthritis of left hip documented in this encounter Additional Health Concerns Assessment Noted Time A fall risk assessment has been complete d for the patient 06/25/2023 8:11 AM EST A Body Mass Index follow-up plan has been documented for the patient 06/25/2023 9:25 AM EST documented as of this encounter Care Teams Watershed Coordinator Relationship Specialty Start Date End Date Betsy Smith [address] [facility] [address] [place] [address] PCP - General 06/13/23 documented as of this encounter
--- OUTSIDE RECORDS SUMMARY | 2024-03-25 02:47 | XMS_ITS | Encounter Summary ---
Author Organization Healthcare Address [address] [place] [address] Care Team Providers Care Alumni Relations Officer Name Role Phone Betsy Smith Primary Care Provider [phone] Encounter Details Date Type Department Care Team (Late st Contact Info) Description 02/15/2023 Orders Only External Location [address] [place] [address] Elen Mckenna PA [address] [place] [address] Social History Tobacco Use Types Packs/Day Years [...] Building [facility] [address] [facility] [place] [address] Griffin Bustillos MD [address] [place] [address] documented as of this encounter Procedures Procedure Name Priority Date/Time Associated Diagnosis Comments XR OUTSIDE IMAGES 02/15/2023 5:12 PM EDT documented in this encounter Results * XR OUTSIDE IMAGES (02/15/2023 5:12 PM EDT) Anatomical Region Laterality Modality Radiographic Jennifer ging 02/15/2023 5:12 PM EDT us Elen LEMON IMG XR PROCEDURES Final Result documented in this encounter Visit Diagnoses Not on filedocumented in this encounter Care Teams Alumni Relations Officer Relationship Specialty Start Date End Date Betsy Smith [address] [facility] [address] [place] [address] PCP - General 06/13/23 documented as of this encounter
--- OUTSIDE RECORDS SUMMARY | 2024-03-25 02:47 | XMS_ITS | Encounter Summary ---
Author Organization Healthcare Address [address] [place] [address] Care Team Providers Care School Teacher Name Role Phone Betsy Smith Primary Care Provider [phone] Reason for Visit * Auth/Cert (Routine) Specialty Diagnoses / Procedures Referred By Mariza maher Referred To Contact Diagnoses Hip pain, left Hip pain, left [M25.552] Procedures ND TOTAL HIP ARTHROPLASTY ND TOTAL HIP ARTHROPLASTY ARTHROPLASTY, HIP, TOTAL Griffin Bustillos MD [address] [facility] [address] [place] [address] Phone: tel: fax: [facility] [address] [place] [address] Phone: tel: Referral ID Status Reason Start Date Expiration Date Visits Re quested Visits Authorized [id number] 1 1 Encounter Details Date Type Department Care Team (Late st Contact Info) Description 09/19/2023 11:13 AM EDT Anesthesia Event [facility] [address] [place] [address] Freedom Velez MD [address] [place] [address] John Merchant DO [address] [place] [address] Anesthesia Record Procedure Summary Procedure Name Responsible Anesthesiologist Anesthesia Start Time Anesthesia Stop Time ARTHROPLASTY, HIP, TOTAL (Left: Hip) Freedom Velez MD 09/19/23 1113 09/19/23 1235 Events Date Time Event Comment 09/19/2023 1002 1113 An Start 1113 An Start Data 1118 In Room 1119 An Induction The patient was reevaluated immediately before moderate or deep sedation use and before anesthesia induction. 1122 An Intubation 1125 Anesthesia Ready 1135 Proc Start 1217 Proc Fin 1227 An Extubation 1227 an stop data 1228 Out of Room 1234 Handoff to Receiving I compl eted my handoff to the receiving clinician during which we: 1. Identified the patient 2. Identified the responsible provider 3. Reviewed the pertinent medical history 4. Discussed the surgical course 5. Reviewed intra-op anesthesia management and issues during anesthesia 6. Set expectations for post-procedure period 7. Allowed opportunity for questions and acknowledgement of understanding. 1235 An Stop Meds Name Total fentaNYL (Sublimaze) injection 50 mcg/mL 100 mcg lidocaine PF (Xylocaine-MPF) 2% 3 mL propofol (Diprivan) injection 10 mg/mL 2 00 mg rocuronium (ZeMuron) injection 10 mg/mL 70 mg ondansetron (Zofran) injection 2 mg/mL 4 mg sugammadex (Bridion) injection 100 mg/mL 200 mg ceFAZolin (Ancef) injection 2 g 2 g tranexamic acid (Cyklokapron) IVPB 1,000 mg 2,000 mg lactated Ringer's infusion 800 mL * Agents Name O2 Sevoflurane * Blood No blood administrations on file. Lines, Drains, and Airways Type Details Placement Removal Wound 09/19/23; 1135; N; Y es; Incision (dressed with altagracia, xeroform, aquacel, knee immobilizer, abduction pillow); Hip; Anterior, Left 09/19/23 1135 by Laney Vo RN Peripheral IV Placement Date: 09/04 09/27; Placement Time: 09; Catheter Size: 20 G; Orientation: Left, Posterior; Location: Hand; Site Prep: Chlorhexidine ; Inserted by: Marisol Zavala RN; Insertion Attempts: 3; Patient Tolerance: Tolerated well; Removal Date: 09/20/23; Removal Time: (Wasnt there on assessment) 09/19/23 0902 by Kylee Treviño RN 09/20/23 0000 by Yunier Christopher II, RN ETT Placement Date: 09/04 09/27; Placement Time: 112 (created via procedure documentation); Technique: Direct laryngoscopy; Type: ETT - single; Single Lumen Tube Size: 7 mm; Cuffed: Yes; Laryngoscope: Annie; Blade Size: 3; Location: Oral; Grade View: Grade IIb; Insertion Attempts: 1; Placement Verification: Auscultation, Capnometry; Airway Comments: Atraumatic. No change to dentition. PLACED EASILY WITH CRIC PRESSURE, LIMITED NECK MOVEMENT DUE TO KYPHOSIS; Placed by: CARDIAC NURSE SPECIALIST; Removal Date: 09/19/23; Removal Time: 1227 09/19/23 1122 by James Crowe CRNA 09/19/23 1227 by James Crowe CRNA documented in this encounter Social History Tobacco [...] drink first t dahlia in the morning (EYE-COMPLAINTS COORDINATOR) to steady your nerves or to get [...] as of this encounter Miscellaneous Notes * Anesthesia Postprocedure Evaluation - James Crowe CRNA - 09/19/2023 12:35 PM EDT Patient: Tasneem Peralse Anesthesia Type: general Vitals Value Taken Time BP 168/82 09/19/23 1230 Temp 99.2 09/19/23 1235 Pulse 93 09/19/23 1234 Resp 15 09/19/23 1234 SpO2 100 % 09/19/23 1234 Vitals shown include unfiled device data. Anesthesia Post Evaluation Patient location during evaluation: PACU Pain management: adequate (pain score 0-3) Airway patency: natural airway Cardiovascular status: acceptable Respiratory status: acceptable, nonlabored ventilation, face mask, spontaneous ventilation and unassisted Hydration status: acceptable No notable events documented. * Anesthesia Procedure Notes - James Crowe CRNA - 09/19/2023 11:34 AM EDTAssociated Order(s): Airway Airway Date/Time: 09/19/2023 11:22 AM Urgency: elective Airway not difficult General Information and Staff Patient location during procedure: OR CARDIAC NURSE SPECIALIST: James Crowe CRNA Performed: HAL Indications and Patient Condition Indications for airway management: anesthesia Spontaneous Ventilation: absent Preoxygenated: yes Patient position: sniffing Final Airway Details Final airway type: endotracheal airway Successful airway: ETT Cuffed: yes Successful intubation technique: direct laryngoscopy Endotracheal tube insertion site: oral Blade: Annie Blade size: #3 ETT size (mm): 7.0 Cormack-Lehane Classification: grade IIb - view of arytenoids or posterior of glottis only Placement verified by: chest auscultation and capnometry Measured from: teeth ETT to teeth (cm): 22 Number of attempts at approach: 1 Additional Comments Atraumatic. No change to dentition. PLACED EASILY WITH CRIC PRESSURE, LIMITED NECK MOVEMENT DUE TO KYPHOSIS * Anesthesia Preprocedure Evaluation - John Merchant DO - 09/19/2023 9:47 AM EDT LAURA Perales is a 88 y.o. female who presents with Pre-op Diagnosis * Hip pain, left [M25.552] now scheduled for ARTHROPLASTY, HIP, TOTAL (Left). Date scheduled is 09/19/2023. K was elevated 5.6, called patients daughter, advised f/u w/ PCP and will contact them next week tosee if has appt. Daughter states labs done at [facility] 09/14/23 K was 4.9. Redrawn 09/17/23 and is 4.7 (will scan into media). Past Medical History: Diagnosis Date Diabetes mellitus (CMS/HCC) Hypertension Osteoporosis Family History Problem Relation Name Age of Onset Hypertension Mother Lung cancer Sister Anesthesia problems Neg Hx Malig Hyperthermia Neg Hx Social History Tobacco Use Smoking status: Never Passive exposure: Never Smokeless tobacco: Never Vaping Use Vaping status: Never Used Substance Use Topics Alcohol use: Never Drug use: Never SURGICAL HISTORY: Past Surgical History: Procedure Laterality Date KNEE SURGERY Right LUMBAR DISCECTOMY TONSILLECTOMY W/ ADENOIDECTOMY No Known Allergies MEDICATIONS: Current Facility-Administered Medications: acetaminophen ceFAZolin dexamethasone gabapentin ketorolac oxyCODONE Povidone-Iodine scopolamine Insert peripheral IV AND Saline lock IV AND sodium chloride AND sodium chloride traMADol tranexamic acid tranexamic acid vancomycin ROS Anesthesia: Date of last anesthetic: OSH knee surgery ~ 45 years ago NO GA issues. history of previous anesthesia. Does not have a history of anesthetic complications, motion sickness, obstructive sleep apnea and PONV. Anesthesia ROS additional comments: Sleeps on 2 pillows due to reflux and normally sleeps on side due to back pain. Cardiovascular: hyperlipidemia. Does not have angina, CAD, CHF, dyspnea, dysrhythmias, peripheral edema, murmur, orthopnea, peripheral edema, past PA, PVD, syncope or valvular heart disease. hypertension: is well controlled. Exercise tolerance is wheeelchair bound. Cardio additional comments: Has not been walking past month due to hip pain. EKG 05/2023 from 06/05/2023 Similar to previous ECG Rhythm: sinus rhythm Rate: normal BPM: 76 . Respiratory: Negative respiratory ROS. Patient has no dyspnea.Has not had an upper respiratory infection in last30 days. HEENT: Does not have difficulty swallowing, chipped teeth, loose teeth or missing teeth.hearing loss. Neurological: Negative neuro ROS. Musculoskeletal: arthritis. Does not have cervical spine limited mobility. Musc/Skel/Integ additional comments: osteoporosis Integumentary: Negative skin ROS. Gastrointestinal: GERD: well controlled.Does not have GI malignancy, hernia, pancreatitis or PUD. Does not have cirrhosis or hepatitis. Genitourinary: Does not have recurrent UTIs, renal calculi or renal disease. Hematological/Lymphatic: anemia. thrombocytosis. History of no DVT. History of no pulmonary embolism. no history of chemotherapy no history of radiation Does not have MRSA or tuberculosis. Endocrine/Metabolic: diabetes mellitus type 2.well controlled. fasting glucose 100-120's Does not have thyroid disorder. hypoglycemia (rare). Visit Vitals BP (!) 167/56 Pulse 71 Temp 36.1 ??C (96.9 ??F) (Temporal) Resp 18 Ht 1.727 m (5' 8 ) Wt 68.9 kg (151 lb 14.4 oz) SpO2 99% BMI 23.10 kg/m?? OB Status Postmenopausal Smoking Status Never BSA 1.82 m?? Lab Results Component Value Date WBC 7.11 09/04/2023 HGB 10.6 (L) 09/04/2023 HCT 32.9 (L) 09/04/2023 MCV 81 09/04/2023 PLT 490 (H) 09/04/2023 Lab Results Component Value Date GLUCOSE 110 (H) 09/04/2023 BUN 25 (H) 09/04/2023 CREATININE 0.89 09/04/2023 BCR 28 09/04/2023 NA 133 (L) 09/04/2023 K 5.6 (H) 09/04/2023 CL 97 09/04/2023 CO2 25 09/04/2023 ALBUMIN 4.0 09/04/2023 Lab Results Component Value Date HGBA1C 6.0 (H) 09/04/2023 No results found for: INR , PROTIME Physical Exam Airway Mallampati: IV Mouth opening: limited TM distance: >3 FB Neck ROM: full Cardiovascular - normal exam (-) peripheral edema Dental - normal exam Pulmonary - normal exam Neurological Skin Musculoskeletal Extremities Handedness: right-handed Anesthesia Plan ASA 3 Plan was reviewed with: attending and CARDIAC NURSE SPECIALIST Anesthesia technique(s) discussed with the patient/family: general Anesthesia plan agreed upon was: general Anesthetic plan and risks discussed with patient. Use of blood products discussed with patient who consented to blood products. John Merchant DO Additional Equipment Requests Cosigned by Freedom Velez MD at 09/19/2023 10:35 AM EDT Associated attestation - Freedom Velez MD - 09/19/2023 10:35 AM EDT I agree with the findings and care plan documented in the preprocedure evaluation note. documented in this encounter Plan of Treatment Upcoming Encounters Date Type Department Care Team ([facility] st Contact Info) Description 03/03/2025 1:30 PM EDT Office Visit Medical Office Building [facility] [address] [facility], [address] [place] [address] Griffin Bustillos MD [address] [facility] [address] [place] [address] documented as of this encounter Procedures Procedure Name Priority Date/Time Associated Diagnosis Comments PB ANESTHESIA PLACEHOLDER Routine 09/19/2023 11:22 AM EDT ND AN ELECTIVE ENDOTRACHEAL AIRWAY Routine 09/19/2023 11:22 AM EDT documented in this encounter Results * ND AN ELECTIVE ENDOTRACHEAL AIRWAY, PB ANESTHESIA PLACEHOLDER (09/19/2023 11:22 AM EDT) Narrative James Crowe CRNA - 09/19/2023 11:22 AM EDT James rCowe CRNA ? 09/19/2023 11:37 AM Airway Date/Time: 09/19/2023 11:22 AM Urgency: elective Airway not difficult General Information and Staff Patient location during procedure: OR CARDIAC NURSE SPECIALIST: Sebastien, James E, CARDIAC NURSE SPECIALIST Performed: CARDIAC NURSE SPECIALIST Indications and Patient Condition Indications for airway management: anesthesia Spontaneous Ventilation: absent Preoxygenated: yes Patient position: sniffing Final Airway Details Final airway type: endotracheal airway Successful airway: ETT Cuffed: yes Successful intubation technique: direct laryngoscopy Endotracheal tube insertion site: oral Blade: Annie Blade size: #3 ETT size (mm): 7.0 Cormack-Lehane Classification: grade IIb - view of arytenoids or posterior of glottis only Placement verified by: chest auscultation and capnometry Measured from: teeth ETT to teeth (cm): 22 Number of attempts at approach: 1 Additional Comments Atraumatic. No change to dentition. PLACED EASILY WITH CRIC PRESSURE, LIMITED NECK MOVEMENT DUE TO KYPHOSIS us Freedom Velez MD ANESTHESIA ORDERABLES Final Result documented in this encounter Visit Diagnoses Not on filedocumented in this encounter Administered Medications Inactive Administered Medications - up to 3 most recent administrations Medication Order MAR Action Action Date Dose Rate Site ceFAZolin (Ancef) injection 2 g 2 g, Intravenous, Once, 1 dose, On Sun09/19/23 at 0830, Routine, Anesthesia Intraprocedure Given 09/19/2023 11:30 AM EDT 2 g fentaNYL (Sublimaze) injection Intravenous, As needed, Starting on Sun09/19/23 at 1119, Until Sun09/19/23 at 1235, Routine, Anesthesia Intraprocedure Given 09/19/2023 11:19 AM EDT 100 mcg lactated Ringer's infusion Intravenous, Continuous PRN, Starting on Sun09/19/23 at 1113, Until Sun09/19/23 at 1235, Routine New Bag 09/19/2023 11:13 AM EDT lidocaine PF (Xylocaine) 2 % injection Intravenous, As needed, Starting on Sun09/19/23 at 1119, Until Sun09/19/23 at 1235, Routine, Anesthesia Intraprocedure Given 09/19/2023 11:19 AM EDT 3 mL ondansetron (Zofran) injection Intravenous, As needed, Starting on Sun09/19/23 at 1203, Until Sun09/19/23 at 1235, Routine, Anesthesia Intraprocedure Given 09/19/2023 12:03 PM EDT 4 mg propofol (Diprivan) injection Intravenous, As needed, Starting on Sun09/19/23 at 1119, Until Sun09/19/23 at 1235, Routine, Anesthesia Intraprocedure Given 09/19/2023 11:42 AM EDT 30 mg Given 09/19/2023 11:19 AM EDT 170 mg rocuronium (ZeMuron) injection Intravenous, As needed, Starting on Sun09/19/23 at 1119, Until Sun09/19/23 at 1235, Routine, Anesthesia Intraprocedure Given 09/19/2023 11:41 AM EDT 20 mg Given 09/19/2023 11:19 AM EDT 50 mg sugammadex (Bridion) 200 MG/2ML injection Intravenous, As needed, Starting on Sun09/19/23 at 1219, Until Sun09/19/23 at 1235, Routine, Anesthesia Intraprocedure Given 09/19/2023 12:19 PM EDT 20 0 mg tranexamic acid (Cyklokapron) IVPB 1,000 mg 1,000 mg, Intravenous, Once, 1 dose, On Sun09/19/23 at 0830, Routine, Holding - Preprocedure Given 09/19/2023 11:58 AM EDT 1,000 mg Given 09/19/2023 11:19 AM EDT 1,000 mg documented in this encounter Additional Health Concerns Assessment Noted Time A fall risk assessment has been complete d for the patient 08/14/2023 10:21 AM EDT A Body Mass Index follow-up plan has been documented for the patient 09/25/2023 10:52 AM EDT documented as of this encounter Care Teams School Teacher Relationship Specialty Start Date End Date Betsy Smith [address] [facility] [address] [place] [address] PCP - General 06/13/23 documented as of this encounter
--- OUTSIDE RECORDS SUMMARY | 2024-03-25 02:47 | XMS_ITS | Encounter Summary ---
Author Organization Healthcare Address [address] [place] [address] Care Team Providers Care Book Store Associate Name Role Phone Betsy Smith Primary Care Provider [phone] Reason for Visit * Reason Comments Consult * Consultation (Routine) - Closed Specialty Diagnoses / Procedures Referred By Mariza maher Referred To Contact Orthopaedic Surgery Diagnoses Primary localized osteoarthritis of left hip Griffin Bustillos MD [address] [place] [phone] Phone: tel: fax: Griffin Bustillos MD [address] [place] [address] Phone: tel: fax: Referral ID Status Reason Start Date Expiration Date Visits Re quested Visits Authorized [id number] Closed 06/25/2023 12/24/2024 1 1 Encounter Details Date Type Department Care Team (Latest Contact Info) Description 08/14/2023 10:00 AM EDT Office Visit Medical Office Building [facility] [address] , [address] [place] [address] Griffin Bustillos MD [address] [place] [address] Hip pain, left (Primary Dx); Primary localized osteoarthritis of left hip; Type 2 diabetes mellitus without complication, unspecified whether half-way insulin use ([facility]) Social History Tobacco Use Types Packs/Day Years [...] encounter Miscellaneous Notes * Progress Notes - Jose Vo MD - 08/14/2023 10:00 AM EDT ORTHOPEDIC ONCOLOGY/RECON CONSULT NOTE Surgery/Chief Complaint: L hip pain History: Tasneem Perales is a 88 yo F who comes in today for evaluation of left hip pain. Patient is accompained by her son and daughter who provide supplemental history. Patient began having left hip pain after a fall in 2022. Before the fall she was ambulating without assistive devices. Now she ambulates at home with a walker and uses a wheelchair when in public/going longer distances due to left hip pain. Patient has previously had 2 L hip CSI's (last on 05/29/23). Patient previously saw Dr. Huffman for L hip pain in 2023 who referred patient to [facility] due to concern for lytic lesion in lefthip. 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 She continues to have severe L hip pain which limits daily activity and function despite conservative measures. She would like to proceed with L KUSH. Preop clearance: DVT/PE: denies PCN allergy: denies MRSA exposure: denies Blood thinners: denies PMH: Past Medical History: Diagnosis Date Diabetes mellitus (CMS/HCC) Hypertension Osteoporosis PSH: Past Surgical History: Procedure Laterality Date BACK SURGERY KNEE SURGERY Right TONSILLECTOMY SH: Social Connections: Not on file Exam: Visit Vitals Smoking Status Never General: No acute distress, well-nourished, well-developed. Neuro: A/Ox3, Speech is easily understandable, and the patient answers all questions appropriately. 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 Joint space narrowing with subchondral sclerosis and cysts with osteophyte formation. Assessment and Plan: 88 year old female with left hip pain due to end-stage osteoarthritis and AVN -Patient and family would like to proceed with L KUSH -orders entered, will plan for cable to mitigate risk of fracture -Will obtain standing low AP pelvis for templating purposes Jose Vo MD Cosigned by Griffin Bustillos MD at 08/14/2023 12:25 PM EDT Associated attestation - Griffin Bustillos MD - 08/14/2023 12:25 PM EDT I saw and evaluated the patient with the resident/fellow. I discussed the case with the resident/fellow and agree with the findings and plan as documented. * Progress Notes - Brittany Green RN - 08/14/2023 10:00 AM EDT Patient was provided with [employer] [facility] Education Packet. Patient was educated using information provided in packet. Patient instructed to schedule PT appointment 4-7 days after surgery date and to schedule prior to having procedure. Contact information for Joint Replacement Nurse given for patient to call should any questions arise before or after surgery. Patient to meet with salon manager for surgery, PAT and Joint Replacement Class dates. Instruction and Hibiclens provided to patient along with instruction sheet. Reviewed patients allergies, medications, medical and surgical history, and pharmacy verified. Instructed patient to stop NSAIDS, ASA, and OTC vitamins & supplements 1 week priorto procedure. Instructed to ensure any hormone replacement, if taken, is stopped 1 month prior to surgery. Also any dermatological procedures or dental work need to be performed 1 month prior to procedure. Patient instructed to review educational material and write down any questions or concerns inthe notes section and bring the packet to the hospital and all appointments. Patient/guardian verbalized understanding. Would like to go to inpatient rehab after surgery. documented in this encounter Plan of Treatment Upcoming Encounters Date Type Department Care Team ([facility] st Contact Info) Description 03/03/2025 1:30 PM EDT Office Visit Medical Office Building Surgery [facility] [address] [facility], [address] [place] [address] Griffin Bustillos MD [address] [facility] [address] [place] [address] Scheduled Orders Name Type Priority Associated Diagnoses Orde r Schedule XR Hip Left 2 or 3 Views Imaging Routine Hip pain, left 1 Occurrences starting 08/12/2023 until 02/10/2025 documented as of this encounter Results * Nicotine Cotinine Metabolite (09/04/2023 11:59 AM EDT) NICOTINE <5 <5 ng/mL 09/07/2023 8:49 AM EDT [facility] Cotinine <5 <5 ng/mL 09/07/2023 8:49 AM EDT [facility] Blood Venous blood specimen / Unknown Venipuncture / Unknown 09/04/2023 11:59 AM EDT 09/04/2023 11:59 AM EDT Narrative [facility] - 09/07/2023 8:49 AM EDT Testing performed by LC-MS/MS at the [facility] Special Chemistry/Toxicology Laboratory. This test was developed and its performance characteristics determined by [facility]. ??This assay has not been cleared by the FDA. ??The laboratory is regulated under CLIA as qualified to perform high-complexity testing. This test is used for clinical purposes. Griffin Bustillos MD LAB BLOOD ORDERABLES Marielle l Result Performing Organization Address [facility] Co de Phone Number [facility] [address] [place] [address] * (ABNORMAL) Hemoglobin A1c (09/04/2023 11:59 AM EDT) Hemoglobin A1c 6.0(H) <5.7 % 09/04/2023 5:33 PM EDT [facility] Blood Venous blood specimen / Unknown Venipuncture / Unknown 09/04/2023 11:59 AM EDT 09/04/2023 11:59 AM EDT Narrative [facility] - 09/04/2023 5:33 PM EDT HA1C Interpretive Data: Diagnosis of Diabetes: Diabetic > or = 6.5% Pre-diabetic 5.7 to 6.4% Non-diabetic < or = 5.6% Glycemic Targets for Type I and Type II Diabetics: Non- Adults <7.0% Adults <6.0% Children and Adolescents <7.5% Source: ??[place] [employer]. Standards of medical care in diabetes,2017. Diabetes Care.2017:40 (suppl 1):S1-S135. HbA1c assay performed by an ion-exchange chromatography method that is certified traceable to the DCCT. Griffin Bustillos MD LAB BLOOD ORDERABLES Marielle l Result Performing Organization Address [facility] [address]/[facility] Co de Phone Number [facility] [address] [place] [address] * Albumin, Plasma (09/04/2023 11:59 AM EDT) Albumin, Plasma 4.0 3.5 - 5.2 g/dL 09/04/2023 3:15 PM EDT [facility] Blood Venous blood specimen / Unknown Venipuncture / Unknown 09/04/2023 11:59 AM EDT 09/04/2023 11:59 AM EDT us Griffin Bustillos MD LAB BLOOD ORDERABLES Marielle l Result [facility] [address] [place] [address] * (ABNORMAL) Basic metabolic panel (09/04/2023 11:59 AM EDT) Glucose, Plasma 110(H) 74 - 99 mg/dL 09/04/2023 3:15 PM EDT [facility] BUN, Plasma 25(H) 8 - 23 mg/dL 09/04/2023 3:15 PM EDT [facility] Creatinine, Plasma 0.89 0.60 - 1.10 mg/dL 09/04/2023 3:15 PM EDT [facility] BUN/Creatinine Ratio 28 09/04/2023 3:15 PM EDT [facility] Sodium, Plasma 133(L) 136 - 145 mmol/L 09/04/2023 3:15 PM EDT [facility] Potassium, Plasma 5.6(H) 3.7 - 4.8 mmol/L 09/04/2023 3:15 PM EDT [facility] Chloride, Plasma 97 97 - 107 mmol/L 09/04/2023 3:15 PM EDT [facility] CO2, Plasma 25 22 - 29 mmol/L 09/04/2023 3:15 PM EDT [facility] Anion Gap 11 6 - 16 mmol/L 09/04/2023 3:15 PM EDT [facility] Total Calcium, Plasma 9.8 8.9 - 10.2 mg/dL 09/04/2023 3:15 PM EDT [facility] eGFRcr 63.2 mL/min/1.7 3m*2 09/04/2023 3:15 PM EDT [facility] Comment:Reported eGFRcr in m L/min/1.73m2 is based the CKD-EPI 2020 equation that does not use a race coefficient. Blood Venous blood specimen / Unknown Venipuncture / Unknown 09/04/2023 11:59 AM EDT 09/04/2023 11:59 AM EDT us Griffin Bustillos MD LAB BLOOD ORDERABLES Marielle altaf Result [facility] [address] [place] [address] * (ABNORMAL) CBC W/O Differential (09/04/2023 11:59 AM EDT) WBC Count 7.11 3.70 - 10.30 10*3/uL LAB HEMATOLOGY METHOD 09/04/2023 2:41 PM EDT [facility] RBC Count 4.04 3.90 - 5.20 10*6/uL LAB HEMATOLOGY METHOD 09/04/2023 2:41 PM EDT [facility] HGB 10.6(L) 11.2 - 15.7 g/dL LAB HEMATOLOGY METHOD 09/04/2023 2:41 PM EDT [facility] HCT 32.9(L) 34.0 - 45.0 % LAB HEMATOLOGY METHOD 09/04/2023 2:41 PM EDT [facility] Platelet Count 490(H) 155 - 369 10*3/uL LAB HEMATOLOGY METHOD 09/04/2023 2:41 PM EDT [facility] MCV 81 79 - 98 fL LAB HEMATOLOGY METHOD 09/04/2023 2:41 PM EDT [facility] MCH 26.2 26.0 - 32.0 pg LAB HEMATOLOGY METHOD 09/04/2023 2:41 PM EDT [facility] MCHC 32.2 30.7 - 35.5 g/dL LAB HEMATOLOGY METHOD 09/04/2023 2:41 PM EDT [facility] RDW 17.0(H) 11.5 - 14.5 % LAB HEMATOLOGY METHOD 09/04/2023 2:41 PM EDT [facility] MPV 9.0 8.8 - 12.5 fL LAB HEMATOLOGY METHOD 09/04/2023 2:41 PM EDT [facility] nRBC 0.0 <=0.0 per 100 WBCs LAB HEMATOLOGY METHOD 09/04/2023 2:41 PM EDT [facility] Blood Venous blood specimen / Unknown Venipuncture / Unknown 09/04/2023 11:59 AM EDT 09/04/2023 11:59 AM EDT Griffin Bustillos MD LAB BLOOD ORDERABLES Marielle l [facility] [address] [place] [address] * XR Pelvis 1 or 2 Views [...] Pain in joint, pelvic region and thigh Primary localized osteoarthritis of left hip Type 2 diabetes mellitus without complication, unspecified whether supervisor intermediates insulin use ([facility]) Hip pain, left Pain in joint, pelvic region and thigh documented in this encounter Additional Health Concerns Assessment Noted Time A fall risk assessment has been complete d for the patient 08/14/2023 10:21 AM EDT A Body Mass Index follow-up plan has been documented for the patient 08/14/2023 12:25 PM EDT documented as of this encounter Care Teams Book Store Associate Relationship Specialty Start Date End Date Betsy Smith [address] [place] [address] [address] [place] [address] PCP - General 06/13/23 documented as of this encounter
--- OUTSIDE RECORDS SUMMARY | 2024-03-25 02:47 | XMS_ITS | Encounter Summary ---
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 documented as of this encounter Plan of Treatment Upcoming Encounters Date Type Department Care Team (Late st Contact Info) Description 06/09/2024 3:00 PM EST Office Visit [facility] [address] [place] [phone] Betsy Smith MD [address] [place], [place] [phone] documented as of this encounter Visit Diagnoses Not on filedocumented in this encounter Additional Health Concerns Assessment Noted Time PHQ-2 Depression Total Score: 2 08/31/19 24 12:00 PM EDT documented as of this encounter Care Teams Roll Slicing Machine Tender Relationship Specialty Start Date End Date Betsy Smith MD [address] [place] [id number] PCP - General 02/08/15 documented as of this encounter
--- OUTSIDE RECORDS SUMMARY | 2024-03-25 02:47 | XMS_ITS | Encounter Summary ---
Author Organization [facility] Address [address] [place] [address] Care Team Providers Care Hims Clerk Name Role Phone Betsy Smith MD Primary Care Provider [phone] Reason for Visit * Reason Comments Memory Loss Encounter Details Date Type Department Care Team (Late st Contact Info) Description 02/21/2024 9:30 AM EDT Office Visit [facility] [address] [place] [phone] Betsy Smith MD [address] [place] [phone] Overflow incontinence of urine (Primary Dx); Mild cognitive impairment; Hypertension; Stage 3a chronic kidney disease; Hyponatremia Social History Tobacco Use Types Packs/Day Years [...] 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 Not on file Not on fi le documented as of this encounter Last Filed Vital Signs Vital Sign Reading Time Taken Comments Blood Pressure 122/62 02/21/2024 9:31 AM EDT Pulse 68 02/21/2024 9:31 AM EDT Temperature - - Respiratory Rate 16 02/21/2024 9:31 AM EDT Oxygen Saturation 100% 02/21/2024 9:31 AM EDT Inhaled Oxygen Concentration - - Weight 65.9 kg (145 lb 3.2 oz) 02/21/2024 9:31 A M EDT Height 167.6 cm (5' 6 ) 02/21/2024 9:31 AM EDT Body Mass Index 23.44 02/21/2024 9:31 AM EDT documented in this encounter Progress Notes * Betsy Smith MD - 02/21/2024 9:30 AM EDT Chief Complaint Patient presents with Memory Loss History of Present Illness 88 y.o. female, presents for f/u on incontinence, BP, and memory. Tolerating oxybutynin and notes it is helpimng; wants to stay on medication. Feels memory continues to improve. Enjoys playing [employer]; states that she is very [place]. Also watches a lot of TV. Review of Systems ROS (+) for decreased incontinence. Denies CP, SOB, falls. All other ROS reviewed and negative. Current Outpatient Medications: acetaminophen (TYLENOL) 500 MG prn alendronate (FOSAMAX) 70 MG weekly Ca Phosphate-Cholecalciferol (QD cholecalciferol (VITAMIN D3) 1000 units QD ezetimibe (Zetia) 10 MG QD ICAPS AREDS 2 QD oxybutynin XL (DITROPAN-XL) 10 MG QD psyllium (METAMUCIL) 58.6 % packet QD VITALS: BP 122/62 (BP Location: Left arm, Patient Position: Sitting, Cuff Size: Adult) Pulse 68 Resp 16 Ht 167.6 cm (66 ) Wt 65.9 kg (145 lb 3.2 oz) SpO2 100% BMI 23.44 kg/m?? Physical Exam Vitals and nursing note reviewed. Constitutional: General: She is not in acute distress. Appearance: Normal appearance. She is not ill-appearing. Eyes: Extraocular Movements: Extraocular movements intact. Conjunctiva/sclera: Conjunctivae normal. Comments: Wearing glasses Pulmonary: Effort: Pulmonary effort is normal. No respiratory distress. Neurological: Mental Status: She is alert. Mental status is at baseline. Gait: Gait abnormal (using cane). Psychiatric: Mood and Affect: Mood normal. Behavior: Behavior normal. LABS Results for orders placed or performed in visit on 01/18/24 Basic Metabolic Panel Collection Time: 01/18/24 3:41 PM Specimen: Blood Result Value Ref Range Glucose 101 (H) 65 - 99 mg/dL BUN 22 8 - 23 mg/dL Creatinine 1.04 (H) 0.57 - 1.00 mg/dL Sodium 138 136 - 145 mmol/L Potassium 4.8 3.5 - 5.2 mmol/L Chloride 101 98 - 107 mmol/L CO2 25.5 22.0 - 29.0 mmol/L Calcium 11.5 (H) 8.6 - 10.5 mg/dL BUN/Creatinine Ratio 21.2 7.0 - 25.0 Anion Gap 11.5 5.0 - 15.0 mmol/L eGFR 52.5 (L) >60.0 mL/min/1.73 10/18/23 Cr 0.87, GFR 65.0, Na 132 ASSESSMENT/PLAN Diagnoses and all orders for this visit: 1. Overflow incontinence of urine (Primary) Assessment & Plan: Improved on oxybutynin XL 10mg QD #90, 1RF Orders: - oxybutynin XL (DITROPAN-XL) 10 MG 24 hr tablet; Take 1 tablet by mouth Daily. Dispense: 90 tablet; Refill: 1 2. Mild cognitive impairment Assessment & Plan: MMSE stable 28/30; encouraged again social activities and physical exercise as well as brain exercises with puzzles, reading, memorization, socialization, learning new activities/hobbies, and role of medications; she enjoys playing [employer]; f/u in 6 mos 3. Hypertension Assessment & Plan: BP stable 122/62; no meds 4. Stage 3a chronic kidney disease Assessment & Plan: Hyponatremia resolved but worsened kidney function; repeat BMP for f/u - lab order given to patientso she can get when she is well-hydrated Orders: - Basic Metabolic Panel; Future 5. Hyponatremia Assessment & Plan: Hyponatremia resolved; f/u BMP to ensure stability Orders: - Basic Metabolic Panel; Future FOLLOW-UP Health maintenance - flu vacc and COVID19 vacc done 01/28; RSV vacc completed Lab order given to patient for BMP, to be obtained when well-hydrated RTC for next wellness 06/09/24; fasting labs prior to appt (CBC, CMP, TSH, lipids, UA/micro, microalb, A1C, vit D, B12) +MMSE Electronically signed by: Betsy Smith MD, FACP 02/21/2024 * Betsy Smith MD - 02/17/2024 8:42 PM EDTAssociated Problem(s): Overflow incontinence of urine Improved on oxybutynin XL 10mg QD #90, 1RF * Betsy Smith MD - 02/17/2024 8:42 PM EDTAssociated Problem(s): Mild cognitive impairment MMSE stable 28/30; encouraged again social activities and physical exercise as well as brain exercises with puzzles, reading, memorization, socialization, learning new activities/hobbies, and role of medications; she enjoys playing [employer]; f/u in 6 mos * Betsy Smith MD - 02/17/2024 8:41 PM EDTAssociated Problem(s): Hyponatremia Hyponatremia resolved; f/u BMP to ensure stability * Betsy Smith MD - 02/17/2024 8:41 PM EDTAssociated Problem(s): Hypertension BP stable 122/62; no meds * Betsy Smith MD - 02/17/2024 8:38 PM EDTAssociated Problem(s): CKD (chronic kidney disease), stage III Hyponatremia resolved but worsened kidney function; repeat BMP for f/u - lab order given to patientso she can get when she is well-hydrated documented in this encounter Plan of Treatment Upcoming Encounters Date Type Department Care Team (Late st Contact Info) Description 06/09/2024 3:00 PM EST Office Visit [facility] [address] [place] [phone] [place] [address] [place] [address] Scheduled Orders Name Type Priority Associated Diagnoses Orde r Schedule Basic Metabolic Panel Lab Routine Stage 3a chronic kidney disease Hyponatremia Expected: 07/01/2024 (Approximate) documented as of this encounter Visit Diagnoses Diagnosis Overflow incontinence of urine- Primary Overflow incontinence Mild cognitive impairment Mild cognitive impairment, so stated Hypertension Unspecified essential hypertension Stage 3a chronic kidney disease Hyponatremia Hyposmolality and/or hyponatremia documented in this encounter Additional Health Concerns Assessment Noted Time PHQ-2 Depression Total Score: 2 08/31/19 24 12:00 PM EDT documented as of this encounter Care Teams Hims Clerk Relationship Specialty Start Date End Date Betsy Smith MD [address] [place] [address] PCP - General 02/08/15 documented as of this encounter
--- OUTSIDE RECORDS SUMMARY | 2024-03-25 02:47 | XMS_ITS | Encounter Summary ---
Author Organization Healthcare Address [address] [place] [address] Care Team Providers Care Adding Machine Operator Name Role Phone Betsy Smith Primary Care Provider [phone] Encounter Details Date Type Department Care Team (Latest Contact Info) Description 08/14/2023 Travel Social History Tobacco Use Types Packs/Day [...] Building [facility] [address] [facility], [address] [place] [address] Griffin Bustillos MD [address] [place] [address] documented as of this encounter Visit Diagnoses Not on filedocumented in this encounter Additional Health Concerns Assessment Noted Time A fall risk assessment has been complete d for the patient 08/14/2023 10:21 AM EDT A Body Mass Index follow-up plan has been documented for the patient 08/14/2023 12:25 PM EDT documented as of this encounter Care Teams Adding Machine Operator Relationship Specialty Start Date End Date Betsy Smith [address] [facility] [address] [place] [address] PCP - General 06/13/23 documented as of this encounter
--- OUTSIDE RECORDS SUMMARY | 2024-03-25 02:47 | XMS_ITS | Encounter Summary ---
Author Organization [facility] Address [address] [place] [address] Care Team Providers Care Student Services Coordinator Name Role Phone Betsy Smith Primary Care Provider [phone] Encounter Details Date Type Department Care Team (Latest Contact Info) Description 09/04/2023 11:00 AM EDT Pre-Admission Testing [facility] S Anesthesia [address] [place] [address] Hip pain, left [M25.552] (Primary Dx) Anesthesia Record Procedure Summary Procedure Name Responsible [...] acknowledgement of understanding. 1235 An Stop Meds * Agents No agents on file. * Blood No blood administrations on file. Lines, Drains, and Airways Type Details Placement Removal Wound 09/19/23; 1135; N; Y es; Incision (dressed with altagracia, xeroform, aquacel, knee immobilizer, abduction pillow); Hip; Anterior, Left 09/19/23 1135 by Laney Vo RN Peripheral IV Placement Date: 09/04 09/27; Placement Time: 0902; Catheter Size: 20 G; Orientation: Left, Posterior; Location: Hand; Site Prep: Chlorhexidine ; Inserted by: Marisol Zavala RN; Insertion Attempts: 3; Patient Tolerance: Tolerated well; Removal Date: 09/20/23; Removal Time: (Wasnt there on assessment) 09/19/23 0902 by Kylee Treviño RN 09/20/23 0000 by Yunier Christopher II, RN ETT Placement Date: 09/04 09/27; Placement Time: 1122 (created via procedure documentation); Technique: Direct laryngoscopy; Type: ETT - single; Single Lumen Tube Size: 7 mm; Cuffed: Yes; Laryngoscope: Annie; Blade Size: 3; Location: Oral; Grade View: Grade IIb; Insertion Attempts: 1; Placement Verification: Auscultation, Capnometry; Airway Comments: Atraumatic. No change to dentition. PLACED EASILY WITH CRIC PRESSURE, LIMITED NECK MOVEMENT DUE TO KYPHOSIS; Placed by: HAL; Removal Date: 09/19/23; Removal Time: 1227 09/19/23 [...] Sign Reading Time Taken Comments Blood Pressure 111/66 09/04/2023 10:58 AM EDT Pulse 69 09/04/2023 10:58 AM EDT Temperature 36.6 ??C (97.9 ??F) 09/04/2023 10:58 AM E DT Respiratory Rate 16 09/04/2023 10:58 AM EDT Oxygen Saturation 98% 09/04/2023 10:58 AM EDT Inhaled Oxygen Concentration - - Weight 68.9 kg (152 lb) 09/04/2023 10:58 AM EDT Height 172.7 cm (5' 8 ) 09/04/2023 10:58 AM EDT Body Mass Index 23.11 09/04/2023 10:58 AM EDT documented in this encounter Miscellaneous Notes * PAT Evaluation Note - Celeste Florez PA - 09/04/2023 11:00 AM EDT LAURA Perales is a 88 y.o. female who presents with Pre-op Diagnosis * Hip pain, left [M25.552] now scheduled for ARTHROPLASTY, HIP, TOTAL (Left). Date scheduled is 09/19/2023. K was elevated 5.6, called patients daughter, advised f/u w/ PCP and will contact them next week tosee if has appt. Daughter states labs done at [facility] 09/14/23 K was 4.9. Redrawn 09/17/23 and is 4.7 (will scan into media). Past Medical History: Diagnosis Date Diabetes mellitus (CMS/HCC) Hypertension Osteoporosis Family History Problem Relation Name Age of Onset Hypertension Mother Lung cancer Sister Anesthesia problems Neg Hx Malig Hyperthermia Neg Hx Social History Tobacco Use Smoking status: Never Passive exposure: Never Smokeless tobacco: Never Vaping Use Vaping Use: Never used Substance Use Topics Alcohol use: Never Drug use: Never SURGICAL HISTORY: Past Surgical History: Procedure Laterality Date KNEE SURGERY Right LUMBAR DISCECTOMY TONSILLECTOMY W/ ADENOIDECTOMY No Known Allergies MEDICATIONS: Current Outpatient Medications: acetaminophen, Take 1 tablet (500 mg) by mouth 3 times a day. alendronate, Take 1 tablet (70 mg) by mouth 1 (one) time per week. Takes on Sunday CALCIUM-VITAMIN D PO, Take 1 tablet by mouth 2 (two) times a day. ezetimibe, Take 1 tablet (10 mg) by mouth Daily. fexofenadine, Take 1 tablet (180 mg) by mouth 1 (one) time each day. irbesartan, Take 1 tablet (300 mg) by mouth Daily. metFORMIN XR, Take 2 tablets (1,500 mg) by mouth 1 (one) time each day. omeprazole, Take 1 capsule (40 mg) by mouth 1 (one) time each day if needed. calcium carbonate, Take 1 tablet (600 mg) by mouth 2 (two) times a day with meals. (Patient not taking: Reported on 09/04/2023) cholecalciferol, Take 1 tablet (1,000 Units) by mouth 1 (one) time each day. (Patient not taking: Reported on 09/04/2023) HYDROcodone-acetaminophen, TAKE 1 TABLET BY MOUTH EVERY 6 HOURS NEEDED FOR MILD TO MODERATE PAIN(1-6) FOR 3 DAYS (Patient not taking: Reported on 08/14/2023) Non-Formulary Medication, Smooth Move Tea QHS (Patient not taking: Reported on 09/04/2023) pioglitazone, Take 1 tablet (30 mg) by mouth Daily. (Patient not taking: Reported on 08/14/2023) ROS Anesthesia: Date of last anesthetic: OSH [...] peripheral edema, murmur, orthopnea, peripheral edema, past RI, PVD, syncope or valvular heart disease. hypertension: [...] thyroid disorder. hypoglycemia (rare). Visit Vitals BP 111/66 Pulse 69 Temp 36.6 ??C (97.9 ??F) (Temporal) Resp 16 Ht 1.727 m (5' 8 ) Wt 68.9 kg (152 lb) SpO2 98% BMI 23.11 kg/m?? OB Status Postmenopausal Smoking Status Never [...] Physical Exam Airway Mallampati: IV Mouth opening: normal TM distance: >3 FB Neck ROM: full Cardiovascular - normal exam (-) peripheral edema Dental - normal exam Pulmonary - normal exam Neurological Skin Musculoskeletal Extremities Anesthesia Plan ASA 3 Anesthesia technique(s) discussed with the patient/family: general [facility] [place] * Preprocedure Instructions - Celeste Florez PA - 09/04/2023 11:00 AM EDT Current Medications Medication Instructions acetaminophen (Tylenol) 500 MG tablet Take as needed alendronate (Fosamax) 70 MG tablet Hold day of surgery CALCIUM-VITAMIN D PO Hold day of surgery ezetimibe (Zetia) 10 MG tablet Take morning of surgery fexofenadine (Meena) 180 MG tablet Take morning of surgery irbesartan (Avapro) 300 MG tablet Hold day of surgery metFORMIN XR (Glucophage-XR) 750 MG 24 hr tablet Hold 2 days before surgery omeprazole (PriLOSEC) [address] capsule Take morning of surgery General Preoperative Instructions You will be called the business day before surgery with your arrival time Do not eat or drink anything after midnight except water with your medications unless other instructions are given No alcohol or smoking prior to surgery Arrive on time to avoid delays Parking/Registration procedure explained You MUST have a responsible adult available for transport to and from hospital Visitation policy for the day of surgery reviewed Bring insurance card, photo ID, along with power of associate artistic director, guardianship or advanced directives if applicable Do not bring money, jewelry or other valuables Hibiclens bathing instructions reviewed if applicable Notify surgeon of fever, illness, any changes or if you decide not to have surgery Pediatric patients under 12 years of age (If applicable) No solid food or milk after midnight Formula 6 hours prior to arrival for surgery Breast milk 4 hours prior to arrival surgery Clear liquids 2 hours prior to arrival for surgery Diabetes Instructions (If applicable) Take diabetes medication as instructed You may have up to 4 ounces of apple juice 2 hours prior to arrival for surgery for low glucose documented in this encounter Plan of Treatment Upcoming Encounters Date Type Department Care Team (Late st Contact Info) Description 03/03/2025 1:30 PM EDT Office Visit Medical Office Building [facility] [address], [address] [place] [address] Griffin Bustillos MD [address] [place] [address] documented as of this encounter Visit Diagnoses Diagnosis Hip pain, left [M25.552]- Primary Pain in joint, pelvic region and thigh documented in this encounter Additional Health Concerns Assessment Noted Time A fall risk assessment has been complete d for the patient 08/14/2023 10:21 AM EDT A Body Mass Index follow-up plan has been documented for the patient 08/14/2023 12:25 PM EDT documented as of this encounter Care Teams Student Services Coordinator Relationship Specialty Start Date End Date Betsy Smith [address] [facility] [address] [place] [address] PCP - General 06/13/23 documented as of this encounter
--- OUTSIDE RECORDS SUMMARY | 2024-03-25 02:47 | XMS_ITS | Encounter Summary ---
Author Organization [facility] Address [address] [place] [address] Care Team Providers Care Senior Escrow Officer Name Role Phone Betsy Smith Primary Care Provider [phone] Encounter Details Date Type Department Care Team (Late Contact Info) Description 08/14/2023 Orders Only Medical Office Building [facility] [address], [address] [place] [address] Griffin Bustillos MD [address] [place] [address] Post-operative state (Primary Dx); S/P total left hip arthroplasty Social History Tobacco Use Types Packs/Day Years [...] Joint [address], [address] [place] [address] Griffin Bustillos MD [address] [place] [address] documented as of this encounter Visit Diagnoses Diagnosis Post-operative state- Primary Other postprocedural status S/P total left hip arthroplasty documented in this encounter Additional Health Concerns Assessment Noted Time A fall risk assessment has been complete d for the patient 08/14/2023 10:21 AM EDT A Body Mass Index follow-up plan has been documented for the patient 08/14/2023 12:25 PM EDT documented as of this encounter Care Teams Senior Escrow Officer Relationship Specialty Start Date End Date Betsy Smith [address] [facility] [address] [place] [address] PCP - General 06/13/23 documented as of this encounter
--- NOTE | 2024-03-25 02:48 | HMH.EDGENADL ---
Discharge Plan Disposition Chief Complaint: Nausea/Vomiting/Diarrhea Prescriptions Prescriptions: No Action pioglitazone-metformin 15-1,000 mg tablet, ER multiphase 24 hr 1 tab PO DAILY ranitidine HCl 300 mg capsule 300 mg PO DAILY glucosamine-chondroitin [Osteo Bi-Flex] 250-200 mg tablet 2 tab PO QPC meclizine 25 mg tablet 25 mg PO BID PRN (Reason: dizziness) Qty: 60 0RF hydrocodone-acetaminophen 5-325 mg Tablet 1 tab PO Q6HP PRN (Reason: Mild To Moderate Pain (1-6)) 3 Days Qty: 12 0RF meloxicam 15 mg tablet 15 mg PO DAILY 30 Days Qty: 30 0RF ezetimibe 10 mg tablet 10 mg PO DAILY 30 Days Qty: 30 0RF amlodipine-atorvastatin 5-40 mg tablet 1 tab PO DAILY 30 Days Qty: 30 0RF Referrals Follow up/Referrals: Provider,Referral, MD [Primary Care Provider] - See instructions Activity Restrictions/Add. Instructions Additional Instructions/Restrictions: Please follow-up with your primary care provider for recheck of your labs as your sodium is continuing to get lower. Please return to the emergency department if you develop any new or worsening symptoms or become concerned for your health. Clinical Impressions Clinical Impression: Hyponatremia, Constipation Instructions Patient Instructions: DI for Diarrhea and Traveler's Diarrhea -- Adult, DI for Diarrhea and Traveler's Diarrhea -- Child, DI for Nausea -- Adult, DI for Nausea -- Child Print Language Print Language: Chilean Discharge ED Provider: Saul Martinez General Adult HPI General Chief complaint: Nausea/Vomiting/Diarrhea Stated complaint: dry mouth, constipation, nausea Time Seen by Provider: 03/25/24 02:40 History of Present Illness HPI narrative: 89-year-old female with history of hypertension, arthritis, overactive bladder, type 2 diabetes presents for multiple complaints. Reports that she has been having dry mouth since she was started on oxybutynin for her overactive bladder. She also reports that she suffers from chronic constipation and she has not had a bowel movement the last 3 to 4 days. She reports some mild abdominal distention and discomfort but denies focal pain. Denies any fever or illness. Related Data Home Medications ?Medication ?Instructions ?Recorded ?Confirmed glucosamine-chondroitin 250 mg-200 2 tab PO QPC 06/17/19 02/10/24 mg tablet (Osteo Bi-Flex) pioglitazone 15 mg-metformin ER 1 tab PO DAILY 10/21/18 06/16/23 1,000 mg tablet,extend release 24hr mp ranitidine HCl 300 mg capsule 300 mg PO DAILY 10/21/18 06/16/23 Previous Rx's ?Medication ?Instructions ?Recorded meclizine 25 mg tablet 25 mg PO BID PRN dizziness #60 tabs 05/10/20 amlodipine 5 mg-atorvastatin 40 mg 1 tab PO DAILY 30 days #30 tabs 06/17/23 tablet ezetimibe 10 mg tablet 10 mg PO DAILY 30 days #30 tabs 06/17/23 hydrocodone 5 mg-acetaminophen 325 1 tab PO Q6HP PRN Mild To Moderate 06/17/23 mg tablet Pain (1-6) 3 days #12 tabs meloxicam 15 mg tablet 15 mg PO DAILY 30 days #30 tabs 06/17/23 Allergies Allergy/AdvReac Type Severity Reaction Status Date / Time No Known Allergies Allergy Verified 05/10/20 14:43 [facility] Disclaimer: The information contained in this section may have been updated after the patient was seen, as this information can be updated by other users. Medical History (Updated 03/25/24 @ 03:44 by Saul Martinez MD) DM type 2 (diabetes mellitus, type 2) Hypertension High cholesterol Family History No significant family history Social History Smoking Status: Never smoker alcohol intake: never substance use type: denies use current occupational status: previously employed and retired Travel in the last 8 weeks: None household members: other housing: house Other Medical History Have you received the Flu Vaccine for this season: No Have you received the Pneumonia Vaccine: No ROS Obtained: Yes All systems reviewed & no additional complaints except as documented Physical Exam General General appearance: alert and in no apparent distress Head Head exam: atraumatic and normocephalic Eye Eye exam: Present normal appearance, PERRL and EOMI ENT ENT exam: Present normal oropharynx and normal external ear exam Neck Neck exam: Present normal inspection and full ROM Chest Chest inspection: Present normal inspection and symmetric chest wall rise; Absent tenderness Respiratory Respiratory exam: Present normal lung sounds bilaterally; Absent respiratory distress Cardiovascular Cardiovascular exam: Present regular rate and normal rhythm Abdominal Exam Abdominal exam: Present soft; Absent distention, tenderness or guarding Extremities Exam Extremities exam: Present normal inspection; Absent edema or joint swelling Back Exam Back exam: Present normal inspection; Absent tenderness Neurological Exam Neurological exam: Present alert and oriented X3; Absent motor sensory deficit Psychiatric Psychiatric exam: Present normal affect and normal mood Skin Skin exam: Present warm, dry and normal color Lymphatic Lymphatic Findings: no adenopathy Medical Decision Making Medical Records Medical records reviewed: Yes I reviewed the patient's medical records. Screening: Per USPSTF and CDC recommendations, given the prevalence of disease in our region, it is our hospital?s policy to screen for HIV and viral Hepatitis for all patients aged 18 and over and those with ongoing risk factors. Adama Inquiry Pt receiving controlled substance: No Adama was queried for this patient: No Vital Signs: 03/25/24 02:39 Temperature 98.1 F Temperature Source Oral Pulse Rate [Apical] 96 H Respiratory Rate 16 Blood Pressure [Right Arm] 179/110 H Blood Pressure Mean [Right Arm] 133 02 Sat by Pulse Oximetry 98 Oxygen Delivery Method Room Air Lab Data Lab results reviewed: Yes I reviewed the patient's lab results. Lab Results 03/25/24 02:54: WBC 10.0, RBC 4.86, Hgb 14.7, Hct 40.5, MCV 83.3, MCH 30.3, MCHC 36.4 H, RDW 15.7, Plt Count 258, MPV 8.2, Neut % (Auto) 78.7, Lymph % (Auto) 14.1, Gillespie % (Auto) 6.1, Eos % (Auto) 0.5, Baso % (Auto) 0.7, Neut # (Auto) 7.9 H, Lymph # (Auto) 1.4, Gillespie # (Auto) 0.6, Eos # (Auto) 0.1, Baso # (Auto) 0.1, Sodium 123 L, Potassium 4.4, Chloride 88 L, Carbon Dioxide 26, Anion Gap 13.4, BUN 31 H, Creatinine 1.00, Estimated Creat Clear 41, Estimated GFR 52 L, Est GFR ( Amer) 63, Glucose 150 H, Calcium 9.3, Total Bilirubin 0.8, AST 31, ALT 21, Alkaline Phosphatase 91, Total Protein 7.2, Albumin 4.6, Globulin 2.6, Albumin/Globulin Ratio 1.8 03/25/24 02:54 03/25/24 02:54 Orders (Tests/Meds): ORDERS Category Date Time Status CBC w/Auto Diff [Complete Blood Count Auto Diff] Stat Lab 03/25/24 02:54 Completed CMP [Comprehensive Metabolic Panel] Stat Lab 03/25/24 02:54 Completed HIV (1&2) Antibody Rapid Stat Lab 03/25/24 02:54 Received Hep C Ab with Reflex to RNA Stat Lab 03/25/24 02:54 Received Medical Decision Narrative: 89-year-old female with history of hypertension hyperlipidemia type 2 diabetes and chronic constipation presents with reported dry mouth and acute on chronic constipation.. History was obtained via interactive discussion with patient. On arrival, patient is [afebrile, hemodynamically stable, satting appropriately, alert, oriented x4, GCS 15], moving all extremities spontaneously. Full physical exam performed and significant for no focal abdominal tenderness, reports that she feels more bloated and distended than normal. Differential includes but is not limited to electrolyte derangement, dehydration, acute on chronic constipation, colonic lesion. Patient was given soapsuds enema for symptomatic management and correction of underlying abnormalities. Workup initiated including basic labs including CBC CMP. On re-evaluation, patient [remains afebrile, HD stable.] Patient was given an enema and had a very large bowel movement with symptomatic improvement. Laboratory workup independently interpreted by me and significant for hyponatremia with sodium 123. Her baseline sodium is around 129. Given this, this is a continued decrease, but not a marked change from prior. She has no symptoms suggestive of symptomatic hyponatremia. I discussed these findings with the patient and encouraged her to follow-up with PCP for reassessment. Procedures Risk/Benefits of Procedure(s) Were Explained: Yes Critical Care Critical Care Time Critical Care Time: No
--- OUTSIDE RECORDS SUMMARY | 2024-03-25 02:48 | XMS_ITS | Encounter Summary ---
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 Not on file Not on le documented as of this encounter Plan of Treatment Upcoming Encounters Date Type Department Care Team (Late st Contact Info) Description 06/09/2024 3:00 PM EST Office Visit [facility] [address] [place] [id number] Betsy Smith MD [address] [place] [address] documented as of this encounter Procedures Procedure Name Priority Date/Time Associated Diagnosis Comments BASIC METABOLIC PANEL Routine 01/18/2024 3:41 PM EDT Hyponatremia documented in this encounter Results * (ABNORMAL) Basic Metabolic Panel (01/18/2024 3:41 PM EDT) Glucose 101(H) 65 - 99 mg/dL 01/18/2024 11:47 PM EDT [facility] BUN 22 8 - 23 mg/dL 01/18/2024 11:47 PM EDT [facility] Creatinine 1.04(H) 0.57 - 1.00 mg/dL 01/18/2024 11:47 PM EDT [facility] Sodium 138 136 - 145 mmol/L 01/18/2024 11:47 PM EDT [facility] Potassium 4.8 3.5 - 5.2 mmol/L 01/18/2024 11:47 PM EDT [facility] Comment:Slight hemolysis det ected by analyzer. Result may be falsely elevated. Chloride 101 98 - 107 mmol/L 01/18/2024 11:47 PM EDT [facility] CO2 25.5 22.0 - 29.0 mmol/L 01/18/2024 11:47 PM EDT [facility] Calcium 11.5(H) 8.6 - 10.5 mg/dL 01/18/2024 11:47 PM EDT [facility] BUN/Creatinine Ratio 21.2 7.0 - 25.0 01/18/2024 11:47 PM EDT [facility] Anion Gap 11.5 5.0 - 15.0 mmol/L 01/18/2024 11:47 PM EDT [facility] eGFR 52.5(L) >60.0 mL/min/1.7 3 01/18/2024 11:47 PM EDT [facility] Blood Venipuncture / Unknown 01/18/2024 3:41 PM EDT 01/18/2024 3:41 PM EDT Narrative [facility] - 01/18/2024 11:47 PM EDT GFR Normal >60 Chronic Kidney Disease <60 Kidney Failure <15 The GFR formula is only valid for adults with stable renal function between ages 18 and 70. Betsy Smith MD LAB BLOOD ORDERABLES Final Resul t [facility]
[address] [place] [address], documented in this encounter Visit Diagnoses Diagnosis Hyponatremia Hyposmolality and/or hyponatremia documented in this encounter Additional Health Concerns Assessment Noted Time PHQ-2 Depression Total Score: 2 08/31/19 24 12:00 PM EDT documented as of this encounter Care Teams Case Repairer Relationship Specialty Start Date End Date Betsy Smith MD [address] [place] [address] PCP - General 02/08/15 documented as of this encounter
--- OUTSIDE RECORDS SUMMARY | 2024-03-25 02:48 | XMS_ITS | Encounter Summary ---
Author Organization [facility] Address [address] [place] [address] Care Team Providers Care Regional Economic Liaison Name Role Phone Betsy Smith MD Primary Care Provider [phone] Reason for Visit * Reason Onset Date Comments Med Refill 07/16/2023 Encounter Details Date Type Department Care Team (Late st Contact Info) Description 07/16/2023 Refill [facility] [address] [place] [phone] Betsy Smith MD [address] [place] [address] Type 2 diabetes mellitus with stage 3b chronic kidney disease, without long-term current use of insulin; Hypertension; Hyperlipidemia Social History Tobacco Use Types Packs/Day Years [...] Retired PHQ-9: Brief Depression Severity Measure Score 18 06/05/2023 Comments No Sex and Gender Information Value Date Recorded Sex Assigned at Not on file Legal Sex Female 12:10 PM EDT Gender Identity Not on file Sexual Orientation Not on file 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 irbesartan (AVAPRO) 300 MG tablet 90 tablet 3 Sig: Take 1 tablet by mouth Daily. ezetimibe (Zetia) 10 MG tablet 90 tablet 3 Sig: Take 1 tablet by mouth Daily. [facility] be [facility] [place] [place] - [address] AT PORTAL TO REGISTERED [facility] - [phone] - [phone] FX Last office visit with prescribing clinician: 06/28/2023 Last telemedicine visit with prescribing clinician: Visit date not found Next office visit with prescribing clinician: 08/31/2023 Additional details provided by patient: PATIENT HAS PLENTY, JUST NEED THESE TO BE ORDERED Does the patient have less than a 3 day supply: [] Yes [x] No Jackson Fuchs Rep 07/16/23 14:17 EDT documented in this encounter Plan of Treatment Upcoming Encounters Date Type Department Care Team (Late st Contact Info) Description 06/09/2024 3:00 PM EST Office Visit [facility] [address] [place] [phone] Betsy Smith MD [address] [place] [phone] documented as of this encounter Visit Diagnoses Diagnosis Type 2 diabetes mellitus with stage 3b chronic kidney disease, without long-term current use of insulin Hypertension Unspecified essential hypertension Hyperlipidemia Pure hypercholesterolemia documented in this encounter Additional Health Concerns Assessment Noted Time PHQ-2 Depression Total Score: 6 06/05/19 24 10:41 AM EST documented as of this encounter Care Teams Regional Economic Liaison Relationship Specialty Start Date End Date Betsy Smith MD [address] [place] [phone] PCP - General 02/08/15 documented as of this encounter
--- OUTSIDE RECORDS SUMMARY | 2024-03-25 02:48 | XMS_ITS | Encounter Summary ---
Author Organization [facility] ystem Address [address] [place] [address] Care Team Providers Care Special Needs Teacher Name Role Phone Betsy Smith MD Primary Care Provider [phone] Encounter Details Date Type Department Care Team (Late st Contact Info) Description 06/28/2023 1:20 PM EST Lab [facility] [address] [place] [phone] Medicare annual wellness visit, subsequent; Hyperlipidemia; Type 2 diabetes mellitus with stage 3b chronic kidney disease, without long-term current use of insulin; Vitamin D deficiency; Osteoporosis; B12 deficiency; Hyponatremia; Avascular necrosis of hip, left Social History Tobacco Use Types Packs/Day Years [...] 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 Not on le documented as of this encounter Plan of Treatment Upcoming Encounters Date Type Department Care Team (Late st Contact Info) Description 06/09/2024 3:00 PM EST Office Visit [facility] MEDICINE [address] [place] [address] Betsy Smith MD [address] [place] [address] documented as of this encounter Procedures Procedure Name Priority Date/Time Associated Diagnosis Comments CBC WITH AUTO DIFFERENTIAL Routine 06/28/2023 1:18 PM EST Medicare annual wellness visit, subsequent VITAMIN D,25-HYDROXY Routine 06/28/2023 1:18 PM EST Vitamin D deficiency Osteoporosis CBC AND DIFFERENTIAL Routine 06/28/2023 1:18 PM EST Medicare annual wellness visit, subsequent TSH Routine 06/28/2023 1:18 PM EST Medicare annual wellness visit, subsequent HEMOGLOBIN A1C Routine 06/28/2023 1:18 PM EST Type 2 diabetes mellitus with stage 3b chronic kidney disease, without long-term current use of insulin VITAMIN B12 Routine 06/28/2023 1:18 PM EST B12 deficiency LIPID PANEL Routine 06/28/2023 1:18 PM EST Hyperlipidemia COMPREHENSIVE METABOLIC PANEL Routine 06/28/2023 1:18 PM EST Medicare annual wellness visit, subsequent documented in this encounter Results * (ABNORMAL) CBC Auto Differential (06/28/2023 1:18 PM EST) WBC 7.37 3.40 - 10.80 10*3/mm3 06/28/2023 7:28 PM EST [facility] RBC 4.29 3.77 - 5.28 10*6/mm3 06/28/2023 7:28 PM [facility] Hemoglobin 11.2(L) 12.0 - 15.9 g/dL 06/28/2023 7:28 PM [facility] Hematocrit 34.2 34.0 - 46.6 % 06/28/2023 7:28 PM [facility] MCV 79.7 79.0 - 97.0 fL 06/28/2023 7:28 PM [facility] MCH 26.1(L) 26.6 - 33.0 pg 06/28/2023 7:28 PM [facility] MCHC 32.7 31.5 - 35.7 g/dL 06/28/2023 7:28 PM [facility] RDW 14.0 12.3 - 15.4 % 06/28/2023 7:28 PM EST [facility] RDW-SD 39.9 37.0 - 54.0 fl 06/28/2023 7:28 PM [facility] MPV 9.4 6.0 - 12.0 fL 06/28/2023 7:28 PM EST [facility] Platelets 539(H) 140 - 450 10*3/mm3 06/28/2023 7:28 PM [facility] Neutrophil % 75.4 42.7 - 76.0 % 06/28/2023 7:28 PM [facility] Lymphocyte % 14.1(L) 19.6 - 45.3 % 06/28/2023 7:28 PM [facility] Monocyte % 9.2 5.0 - 12.0 % 06/28/2023 7:28 PM [facility] Eosinophil % 0.3 0.3 - 6.2 % 06/28/2023 7:28 PM [facility] Basophil % 0.7 0.0 - 1.5 % 06/28/2023 7:28 PM [facility] Immature Grans % 0.3 0.0 - 0.5 % 06/28/2023 7:28 PM [facility] Neutrophils, Absolute 5.56 1.70 - 7.00 10*3/mm3 06/28/2023 7:28 PM [facility] Lymphocytes, Absolute 1.04 0.70 - 3.10 10*3/mm3 06/28/2023 7:28 PM [facility] Monocytes, Absolute 0.68 0.10 - 0.90 10*3/mm3 06/28/2023 7:28 PM [facility] Eosinophils, Absolute 0.02 0.00 - 0.40 10*3/mm3 06/28/2023 7:28 PM [facility] Basophils, Absolute 0.05 0.00 - 0.20 10*3/mm3 06/28/2023 7:28 PM [facility] Immature Grans, Absolute 0.02 0.00 - 0.05 10*3/mm3 06/28/2023 7:28 PM [facility] nRBC 0.0 0.0 - 0.2 /100 WBC 06/28/2023 7:28 PM [facility] Blood Venipuncture / Unknown 06/28/2023 1:18 PM EST 06/28/2023 1:18 PM EST us Betsy Ko MD LAB BLOOD ORDERABLES Final Resul t Performing Organization Address [facility]/ZIP Co de Phone Number [facility]
[address] [place] [address], [place] [phone] * Vitamin B12 (06/28/2023 1:18 PM EST) Vitamin B-12 477 211 - 946 pg/mL 06/28/2023 8:11 PM EST [facility] Blood Venipuncture / Unknown 06/28/2023 1:18 PM EST 06/28/2023 1:18 PM EST Narrative [facility] - 06/28/2023 8:11 PM EST Results may be falsely increased if patient taking Biotin. us Betsy Smith MD LAB BLOOD ORDERABLES Final Resul t Performing Organization Address [facility] Co de Phone Number [facility]
[address] [place] [address], * Vitamin D,25-Hydroxy (06/28/2023 1:18 PM EST) 25 Hydroxy, Vitamin D 62.4 30.0 - 100.0 ng/ml 06/28/2023 8:11 PM EST [facility] Blood Venipuncture / Unknown 06/28/2023 1:18 PM EST 06/28/2023 1:18 PM EST Narrative [facility] - 06/28/2023 8:11 PM EST Reference Range for Total Vitamin D 25(OH) Deficiency <20.0 ng/mL Insufficiency 21-29 ng/mL Sufficiency 30-100 ng/mL Toxicity >100 ng/ml us Betsy Smith MD LAB BLOOD ORDERABLES Final Resul t Performing Organization Address City/[facility]/ZIP Co de Phone Number [facility]
[address] [place] [address], * (ABNORMAL) Hemoglobin A1c (06/28/2023 1:18 PM EST) [facility] Hemoglobin A1C 6.30(H) 4.80 - 5.60 % 06/28/2023 7:45 PM EST [facility] Blood Venipuncture / Unknown 06/28/2023 1:18 PM EST 06/28/2023 1:18 PM EST Narrative [facility] - 06/28/2023 7:45 PM EST Hemoglobin A1C Ranges: Increased Risk for Diabetes ??5.7% to 6.4% Diabetes ? >= 6.5% Diabetic Goal ?< 7.0% Betsy Smith MD LAB BLOOD ORDERABLES Final Resul t Performing Organization Address City/[facility]/ZIP Co de Phone Number [facility]
[address] [place] [address], * TSH (06/28/2023 1:18 PM EST) [facility] TSH 2.760 0.270 - 4.200 uIU/mL 06/28/2023 7:25 PM EST [facility] Blood Venipuncture / Unknown 06/28/2023 1:18 PM EST 06/28/2023 1:18 PM EST us Betsy Smith MD LAB BLOOD ORDERABLES Final Resul t Performing Organization Address City/[facility]/ZIP Co de Phone Number [facility]
[address] [place] [address], * (ABNORMAL) Lipid Panel (06/28/2023 1:18 PM EST) [facility] Total Cholesterol 184 0 - 200 mg/dL 06/28/2023 7:21 PM EST [facility] Triglycerides 56 0 - 150 mg/dL 06/28/2023 7:21 PM EST [facility] HDL Cholesterol 79(H) 40 - 60 mg/dL 06/28/2023 7:21 PM EST [facility] LDL Cholesterol 94 0 - 100 mg/dL 06/28/2023 7:21 PM EST [facility] VLDL Cholesterol 11 5 - 40 mg/dL 06/28/2023 7:21 PM EST [facility] LDL/HDL Ratio 1.19 06/28/2023 7:21 PM EST [facility] Blood Venipuncture / Unknown 06/28/2023 1:18 PM EST 06/28/2023 1:18 PM EST Narrative [facility] - 06/28/2023 7:21 PM EST Cholesterol [...] ? 160-189 mg/dL Very High ?>189 mg/dL us Betsy Smith MD LAB BLOOD ORDERABLES Final Resul t [facility]
[address] [place] [address], * (ABNORMAL) Comprehensive Metabolic Panel (06/28/2023 1:18 PM EST) [facility] Glucose 85 65 - 99 mg/dL 06/28/2023 7:52 PM [facility] BUN 16 8 - 23 mg/dL 06/28/2023 7:52 PM [facility] Creatinine 0.80 0.57 - 1.00 mg/dL 06/28/2023 7:52 PM [facility] Sodium 133(L) 136 - 145 mmol/L 06/28/2023 7:52 PM [facility] Potassium 4.4 3.5 - 5.2 mmol/L 06/28/2023 7:52 PM [facility] Chloride 95(L) 98 - 107 mmol/L 06/28/2023 7:52 PM [facility] CO2 25.4 22.0 - 29.0 mmol/L 06/28/2023 7:52 PM [facility] Calcium 10.0 8.6 - 10.5 mg/dL 06/28/2023 7:52 PM [facility] Total Protein 7.0 6.0 - 8.5 g/dL 06/28/2023 7:52 PM [facility] Albumin 4.3 3.5 - 5.2 g/dL 06/28/2023 7:52 PM [facility] ALT (SGPT) 8 1 - 33 U/L 06/28/2023 7:52 PM [facility] AST (SGOT) 14 1 - 32 U/L 06/28/2023 7:52 PM [facility] Alkaline Phosphatase 112 39 - 117 U/L 06/28/2023 7:52 PM [facility] Total Bilirubin 0.4 0.0 - 1.2 mg/dL 06/28/2023 7:52 PM [facility] Globulin 2.7 gm/dL 06/28/2023 7:52 PM [facility] A/G Ratio 1.6 g/dL 06/28/2023 7:52 PM EST [facility] BUN/Creatinine Ratio 20.0 7.0 - 25.0 06/28/2023 7:52 PM EST [facility] Anion Gap 12.6 5.0 - 15.0 mmol/L 06/28/2023 7:52 PM EST [facility] eGFR 71.9 >60.0 mL/min/1.7 3 06/28/2023 7:52 PM EST [facility] Blood Venipuncture / Unknown 06/28/2023 1:18 PM EST 06/28/2023 1:18 PM EST Narrative [facility] - 06/28/2023 7:52 PM EST GFR Normal >60 Chronic Kidney Disease <60 Kidney Failure <15 The GFR formula is only valid for adults with stable renal function between ages 18 and 70. Betsy Smith MD LAB BLOOD ORDERABLES Final Resul t [facility]
[address] [place] [address], documented in this encounter Visit Diagnoses Diagnosis Medicare annual wellness visit, subsequent Hyperlipidemia Pure hypercholesterolemia Type 2 diabetes mellitus with stage 3b chronic kidney disease, without long-term current use of insulin Vitamin D deficiency Osteoporosis B12 deficiency Hyponatremia Hyposmolality and/or hyponatremia Avascular necrosis of hip, left documented in this encounter Additional Health Concerns Assessment Noted Time PHQ-2 Depression Total Score: 6 06/05/19 24 10:41 AM EST documented as of this encounter Care Teams Special Needs Teacher Relationship Specialty Start Date End Date Betsy Smith MD [address] [place] [address] PCP - General 02/08/15 documented as of this encounter
--- OUTSIDE RECORDS SUMMARY | 2024-03-25 02:48 | XMS_ITS | Encounter Summary ---
Author Organization [facility] ystem Address [address] [place] [address] Care Team Providers Care Offender Employment Specialist Name Role Phone Betsy Smith MD Primary Care Provider [phone] Reason for Visit * Reason Onset Date Comments LAB ORDER/CONCERNS 09/05/2023 Encounter Details Date Type Department Care Team (Late st Contact Info) Description 09/05/2023 Telephone [facility] [address] [place] [phone] [place] [address] [place] [address] LAB ORDER/CONCERNS Social History Tobacco Use Types Packs/Day Years [...] 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 Not on file Not on le documented as of this encounter Miscellaneous Notes * Telephone Encounter - Maye Salazar MA - 09/06/2023 9:36 AM EDT Faxed lab order to [facility] main lab, also mailed lab order to patient as she is not goinguntil next week * Telephone Encounter - Betsy Smith MD - 09/05/2023 7:55 PM EDT Needs to repeat BMP well-hydrated (nonfasting) - escribed as external, ok to do at [facility] as long as they send us the results * Telephone Encounter - Nikunj Chase MA - 09/05/2023 12:30 PM EDT PAT Evaluation Note - Celeste Florez PA - 09/04/2023 11:00 AM EDT HPI Tasneem Perales is a 88 y.o. female who presents with Pre-op Diagnosis * Hip pain, left [M25.552] now scheduled for ARTHROPLASTY, HIP, TOTAL (Left). Date scheduled is 09/19/2023. K was elevated 5.6, called patients daughter, advised f/u w/ PCP and will contact them next week tosee if has appt. * Telephone Encounter - Shanelle Crews RegSched Rep - 09/05/2023 11:11 AM EDT Caller: Hu Richards Relationship: Emergency Contact Best call back number: [phone] What is the best time to reach you: ANYTIME Who are you requesting to speak with (clinical staff, provider, specific staff member): CLINICAL STAFF Do you know the name of the person who called: HU What was the call regarding: PATIENT DID PRE OP YESTERDAY AT [facility] FOR HER HIP SURGERY ON September; THERE WERE CONCERNS WITH HER POTASSIUM BEING HIGH AND NEEDING TO BE RE CHECKED; SHE IS ASKING IF THIS LAB ORDER CAN BE DONE AT THE LOCAL HOSPITAL, [facility], (NO NUMBERS AVAILABLE) IT IS HARD FOR PATIENT TO BE MOBILE Is it okay if the provider responds through MyChart: CALL BACK documented in this encounter Plan of Treatment Upcoming Encounters Date Type Department Care Team (Late st Contact Info) Description 06/09/2024 3:00 PM EST Office Visit [facility] [address] [place] [phone] Betsy Smith MD [address] [place] [address] Scheduled Orders Name Type Priority Associated Diagnoses Orde r Schedule Basic Metabolic Panel Lab STAT Hyponatremia Hyperkalemia Expected: 05/10/2024 (Approximate) documented as of this encounter Visit Diagnoses Diagnosis Hyponatremia- Primary Hyposmolality and/or hyponatremia Hyperkalemia Hyperpotassemia documented in this encounter Additional Health Concerns Assessment Noted Time PHQ-2 Depression Total Score: 2 08/31/19 24 12:00 PM EDT documented as of this encounter Care Teams Offender Employment Specialist Relationship Specialty Start Date End Date Betsy Smith MD [address] [place] [address] PCP - General 02/08/15 documented as of this encounter
--- OUTSIDE RECORDS SUMMARY | 2024-03-25 02:48 | XMS_ITS | Encounter Summary ---
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 Non- Does the patient have one of the following disease processes/diagnoses(primary or secondary)? TotalJoint Replacement TCM attempt successful? No Unsuccessful attempts Attempt 3 Call Status Voice mail issues Jasmin Page RN 10/09/2023, 17:24 EDT documented in this encounter Plan of Treatment Upcoming Encounters Date Type Department Care Team (Late st Contact Info) Description 06/09/2024 3:00 PM EST Office Visit [facility] [address] [place] [phone] Betsy Smith MD [address] [place] [address] documented as of this encounter Visit Diagnoses Not on filedocumented in this encounter Additional Health Concerns Assessment Noted Time PHQ-2 Depression Total Score: 2 08/31/19 24 12:00 PM EDT documented as of this encounter Care Teams Wired Sweatband Cutter Relationship Specialty Start Date End Date Betsy Smith MD [address] [place] [address] PCP - General 02/08/15 documented as of this encounter
--- OUTSIDE RECORDS SUMMARY | 2024-03-25 02:48 | XMS_ITS | Encounter Summary ---
Author Organization [facility]ste Address [address] [place] [address] Care Team Providers Care Room Service Supervisor Name Role Phone Betsy Smith MD Primary Care Provider [phone] Reason for Visit * Reason Onset Date Comments Results 06/11/2023 Encounter Details Date Type Department Care Team (Late st Contact Info) Description 06/11/[address] 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 He is going to call to get her scheduled with Dr. Scott. * Telephone Encounter - Belle Bishop MA - 06/11/2023 10:51 AM EST Pt notified and verbalized understanding. BMP printed and mailed. * Telephone Encounter - Belle Bishop MA - 06/11/2023 10:51 AM EST ----- Message from Betsy Smith MD sent at 06/10/2023 6:57 PM EST ----- Regarding: test results Pls call her son Nory - labs overall normal/stable, including blood counts, liver/kidney function, thyroid, and vitamin levels. The only abnormality is her sodium is low again. This does NOT mean to eat more sodium. Recommend drinking more water, at least 64 oz per day, and repeat BMP well- hydrated/nonfasting in 1week (pls give them order to do at [facility]) documented in this encounter Plan of Treatment Upcoming Encounters Date Type Department Care Team (Late st Contact Info) Description 06/09/2024 3:00 PM EST Office Visit [facility] INTER[facility] [address] [place] [phone] Betsy Smith MD [address] [place] [address] documented as of this encounter Visit Diagnoses Diagnosis Hyponatremia- Primary Hyposmolality and/or hyponatremia documented in this encounter Additional Health Concerns Assessment Noted Time PHQ-2 Depression Total Score: 6 06/05/19 24 10:41 AM EST documented as of this encounter Care Teams Room Service Supervisor Relationship Specialty Start Date End Date Betsy Smith MD [address] [place] [id number] PCP - General 02/08/15 documented as of this encounter
--- OUTSIDE RECORDS SUMMARY | 2024-03-25 02:48 | XMS_ITS | Encounter Summary ---
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 Non-BH Is LACE score < 7 ? Non-BH Discharge Eligibility [facility] Date of Discharge 10/05/23 Discharge Disposition Home-Health Care [facility] Discharge diagnosis Aftercare following joint replacement surgery Does the patient have one of the following disease processes/diagnoses(primary or secondary)? TotalJoint Replacement Prep survey completed? Yes Meli Ferguson - Registered Nurse documented in this encounter Plan of Treatment Upcoming Encounters Date Type Department Care Team (Late st Contact Info) Description 06/09/2024 3:00 PM EST Office Visit [facility] [address] [place] [phone] Besty Smith MD [address] [place] [address] documented as of this encounter Visit Diagnoses Not on filedocumented in this encounter Additional Health Concerns Assessment Noted Time PHQ-2 Depression Total Score: 2 08/31/19 24 12:00 PM EDT documented as of this encounter Care Teams Fibrous Wallboard Inspector Relationship Specialty Start Date End Date Betsy Smith MD [address] [place] [address] PCP - General 02/08/15 documented as of this encounter
--- OUTSIDE RECORDS SUMMARY | 2024-03-25 02:48 | XMS_ITS | Encounter Summary ---
[facility] Address [address] [place] [address] Care Team Providers Care Hand Coper Name Role Phone Betsy Smith MD Primary Care Provider [phone] Reason for Visit * Reason Comments Hypertension Hip Pain Left Altered Mental Status Confusion Encounter Details Date Type Department Care Team (Latest Contact Info) Description 08/31/2023 11:00 AM EDT Office Visit [facility] [address] [place] [phone] [place] [address] [place] [id number] Hypertension (Primary Dx); Type 2 diabetes mellitus with stage 3b chronic kidney disease, without long-term current use of insulin; Osteoarthritis of left hip; Mild cognitive impairment; Osteoporosis; Hyperlipidemia; Right leg weakness; Conjunctivitis of both eyes, unspecified conjunctivitis type Social History Tobacco Use Types Packs/Day Years Used Date Smoking Tobacco: Never Smokeless Tobacco: Never Tobacco Cessation:Counseling Given: Not Answered Alcohol Use Standard Drinks/Week Comments Not Currently [...] 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 on file Not on le documented as of this encounter Last Filed Vital Signs Vital Sign Reading Time Taken Comments Blood Pressure 132/58 08/31/2023 11:54 AM EDT Pulse 73 08/31/2023 10:59 AM EDT Temperature 36.4 ??C (97.5 ??F) 08/31/2023 10:59 AM E DT Respiratory Rate - - Oxygen Saturation 98% 08/31/2023 10:59 AM EDT Inhaled Oxygen Concentration - - Weight 69.5 kg (153 lb 3.2 oz) 08/31/2023 10:59 AM EDT Height - - Body Mass Index 24.71 06/12/2023 12:53 PM EST documented in this encounter Progress Notes * Betsy Smith MD - 08/31/2023 11:24 AM EDTAssociated Problem(s): Mild cognitive impairment NEW problem, possibly exac'd or triggered by [...] kitchen appliances are not left on, etc * Betsy Smith MD - 08/31/2023 11:23 AM EDTAssociated Problem(s): Osteoarthritis of left hip L. Hip KUSH pending per Dr. Bustillos; [...] most likely she will need home health * Betsy Smith MD - 08/31/2023 11:00 AM EDT Chief Complaint Patient presents with Hypertension Hip Pain Left Altered Mental Status Confusion History of Present Illness 88 y.o. female, accompanied by her son and daughter, presents for BP follow-up. Not checking BPs at home. FBGs have been mostly 100-110s. Son reports memory concerns. Has flawed recall of appts and events. Ex/ claims she cooked breakfastfor the family but nothing in the oven. Ex/claims told family member about an appointment with me yesterday. Had ortho consultation with Dr. Bustillos 08/14/23. 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 Has been exercises to do pre-operatively but patient has not been compliant. Family states ortho advised against getting a hospital bed. Having difficulty walking due to persistent left hip pain, including a few falls since the last visit. Daughter also notes right leg pain and weakness. Patient is fairly sedentary, watches TV, takes naps often. Also complains of insomnia, therefore gets up and eats in the middle of the night. Patient complains of awakening with matting of the R eye; both eyes are somewhat itchy R>L. Denies eye drainage. Has only 1 pill left of each med. Patient arranged own pill box, and daughter gives her the medications. Review of Systems Denies CP, SOB, palpitations. ROS (+) for persistent left hip pain, therefore unable to walk and subsequent falls. Also with R leg weakness. ROS (+) for R>L eye itchiness and irritation with matting, no visual changes. ROS (+) for recall issues and confusion as noted. Son reports decreased leg swelling. All other ROS reviewed and negative. Current Outpatient Medications: acetaminophen (TYLENOL) 500 MG prn alendronate 70 MG weekly calcium carbonate (OS-ANUEL) 600 MG BID cholecalciferol (VITAMIN D3) 1000 units QD ezetimibe 10 MG QD irbesartan 300 MG QD metFORMIN ER 750 MG 2 QD MICAPS AREDS 2 QD Smooth Move Tea QHS Omeprazole 20 MG QD pioglitazone 30 MG QD VITALS: BP 132/58 Pulse 73 Temp 97.5 ??F (36.4 ??C) Wt 69.5 kg (153 lb 3.2 oz) SpO2 98% BMI 24.71kg/m?? Physical Exam Vitals and nursing note reviewed. Constitutional: General: She is not in acute distress. Appearance: Normal appearance. She is not ill-appearing. Eyes: General: Right eye: No discharge. Left eye: No discharge. Extraocular Movements: Extraocular movements intact. Conjunctiva/sclera: Conjunctivae normal. Comments: No scleral injection, swelling, or drainage bilaterally Cardiovascular: Rate and Rhythm: Normal rate and regular rhythm. Heart sounds: Normal heart sounds. Pulmonary: Effort: Pulmonary effort is normal. No respiratory distress. Breath sounds: Normal breath sounds. No wheezing or rales. Musculoskeletal: Right lower leg: No edema. Left lower leg: No edema. Neurological: Mental Status: She is alert. She is disoriented. Gait: Gait abnormal (sitting in wheelchair). Comments: Answers questions appropriately Psychiatric: Mood and Affect: Mood normal. Behavior: Behavior normal. LABS Results for orders placed or performed in visit on 06/29/23 Microalbumin / Creatinine Urine Ratio - Urine, Clean Catch Specimen: Urine, Clean Catch Result Value Ref Range Microalbumin/Creatinine Ratio 20.0 0.0 - 29.0 mg/g Creatinine, Urine 155.2 mg/dL Microalbumin, Urine 3.1 mg/dL Urinalysis without microscopic (no culture) - Urine, Clean Catch Specimen: Urine, Clean Catch Result Value Ref Range Color, UA Dark Yellow (A) Yellow, Straw Appearance, UA Clear Clear pH, UA 6.0 5.0 - 8.0 Specific [place], UA 1.023 1.005 - 1.030 Glucose, UA Negative Negative Ketones, UA Trace (A) Negative Bilirubin, UA Negative Negative Blood, UA Negative Negative Protein, UA Trace (A) Negative Leuk Esterase, UA Negative Negative Nitrite, UA Negative Negative Urobilinogen, UA 1.0 E.U./dL 0.2 - 1.0 E.U./dL Urinalysis, Microscopic Only - Urine, Clean Catch Specimen: Urine, Clean Catch Result Value Ref Range RBC, UA 0-2 None Seen, 0-2 /HPF WBC, UA 0-2 None Seen, 0-2 /HPF Bacteria, UA None Seen None Seen /HPF Squamous Epithelial Cells, UA 0-2 None Seen, 0-2 /HPF Transitional Epithelial Cells, UA 0-2 0 - 2 /HPF Hyaline Casts, UA None Seen None Seen /LPF Amorphous Crystals, UA Small/1+ None Seen /HPF Methodology Manual Light Microscopy 06/28/23 A1C 6.3 ASSESSMENT/PLAN Diagnoses and all orders for this visit: 1. Hypertension (Primary) Assessment & Plan: BP mildly elevated, improved on repeat; cont irbesartan 300mg QD and rec that patient take med witha sm sip of water on the morning of surgery Orders: - irbesartan (AVAPRO) 300 MG tablet; Take 1 tablet by mouth Daily. Dispense: 30 tablet; Refill: 0 2. Type 2 diabetes mellitus with stage 3b chronic kidney disease, without long- term current use of insulin Assessment & Plan: FBGs acceptable 10-110s; cont met ER 750mg 2 QD and amita 30mg QD, RXs given for 30d supply while sheawat[facility] mail order RXs; f/u A1C in 4 mos Orders: - metFORMIN ER (GLUCOPHAGE-XR) 750 MG 24 hr tablet; Take 2 tablets by mouth Daily With Breakfast. Dispense: 60 tablet; Refill: 0 - pioglitazone (ACTOS) 30 MG tablet; Take 1 tablet by mouth Daily. Dispense: 30 tablet; Refill: 0 3. Osteoarthritis of left hip Assessment & Plan: L. Hip KUSH pending per Dr. Bustillos; has pre-admission testing 09/19/23 and no pre-op requested from PCP; encouraged patient to comply with HEP so that rehab afterwards will more successful; family states she will be going to rehab facility; advised family to let us know the day before she leaves rehab so we can schedule [facility] hospital follow-up visit as most likely she will need home health 4. Mild cognitive impairment Assessment & Plan: NEW problem, possibly exac'd or triggered by [...] kitchen appliances are not left on, etc 5. Osteoporosis - alendronate (FOSAMAX) 70 MG tablet; Take 1 tablet by mouth 1 (One) Time Per Week. Dispense: 30 tablet; Refill: 0 6. Hyperlipidemia - ezetimibe (Zetia) 10 MG tablet; Take 1 tablet by mouth Daily. Dispense: 30 tablet; Refill: 0 7. Right leg weakness Comments: RLE weakness/pain likely compensatory for severe left hip pain/weakness due to OA/AVN; encouraged compliance with home exercises for both legs 8. Conjunctivitis of both eyes, unspecified conjunctivitis type Comments: R>L poss allergic conjunctivitis; exam unremarkable today; rec zaditor 1 gtt OU BID and natural tears BID prn Time Documentation Counseled patient and son and daughter I spent 42 minutes face to face and 12 minutes non-face to face on today's office visit. Time was spent reviewing patient's previous notes, lab results, test results, vitals, and/or other records as well as examining the patient, ordering tests/medicines/procedures, providing counseling, coordinating care, answering questions, discussing evaluation and treatment plans, and writing this note. Total time: 54 minutes (Level 5 40 minutes) FOLLOW-UP Health maintenance - flu vacc, COVID19 vacc, and RSV vacc completed for this season All meds RF'd #30d supply, 0RF to tide her over while awaiting for mail order to arrive RTC 4 mos with A1C Also will plan on TCM visit after leaving rehab facility after L. KUSH Electronically signed by: Betsy Simth MD, FACP 08/31/2023 * Betsy Smith MD - 08/29/2023 6:29 PM EDTAssociated Problem(s): Type 2 diabetes mellitus with stage 3b chronic kidney disease, without long-term current use of insulin FBGs acceptable 10-110s; cont met ER 750mg 2 QD and amita 30mg QD, RXs given for 30d supply while sheawat[facility] mail order RXs; f/u A1C in 4 mos * Betsy Smith MD - 08/29/2023 6:29 PM EDTAssociated Problem(s): Hypertension BP mildly elevated, improved on repeat; cont irbesartan 300mg QD and rec that patient take med witha sm sip of water on the morning of surgery documented in this encounter Plan of Treatment Upcoming Encounters Date Type Department Care Team (Late st Contact Info) Description 06/09/2024 3:00 PM EST Office Visit 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
--- OUTSIDE RECORDS SUMMARY | 2024-03-25 02:48 | XMS_ITS | Encounter Summary ---
[facility] [address] [place] [address] Care Team Providers Care Air Battle Manager Name Role Phone Betsy Smith MD Primary Care Provider [phone] Reason for Visit * Reason Onset Date Comments Medication Problem 10/19/2023 clarification Lab results 10/19/2023 Encounter Details Date Type Department Care Team (Late st Contact Info) Description 10/19/2023 Telephone [facility] [address] [place] [phone] [place] [address] [place] [phone] Medication Problem (clarification); Lab results Social History Tobacco Use Types Packs/Day Years [...] 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 Gave message from provider. Pt daughter voiced understanding andappreciation. Will bring by blood pressure readings for PCP's review. * Telephone Encounter - Betsy Smith MD - 10/19/2023 4:39 PM EDT Stop mag oxide Should be on vit D 1000 units QD Should be on calcium vit D 2x/day Should be on baby aspirin 81mg QD Also cont metformin ER 500mg QD Also cont zetia 10mg QD Also resume alendronate 70mg weekly Med list was already written for patient at her appt * Telephone Encounter - Amber Salas RegSched Rep - 10/19/2023 11:44 AM EDT Caller: NOLAN Perales Relationship: Other Relative Best call back number: [phone] What was the call regarding: DAUGHTER IN LAW STATES THAT THE PATIENT SAID THAT SHE WILL NOT REMEMBER THE DIRECTIONS AND ASKED IF THE OFFICE CAN CALL HER INSTEAD Is it okay if the provider responds through MyChart: * Telephone Encounter - Amber Salas RegSched Rep - 10/19/2023 10:46 AM EDT Caller: Tasneem Perales Relationship: Self Best call back number: [phone] What was the call regarding: PATIENTS DAUGHTER IN LAW IS STATING THAT THE PATIENT IS CONFUSED ON HOW TO TAKE HER calcium carbonate (OS-ANUEL) 600 MG tablet AND cholecalciferol (VITAMIN D3) 1000 units tablet BECAUSE AT HOME SHE HAS A COMBINATION PILL AND NEEDS TO KNOW IF SHE IS SUPPOSED TO STOP TAKING MAGNESIUM OXIDE 400 MG ONCE DAILY Is it okay if the provider responds through MyChart: documented in this encounter Plan of Treatment Upcoming Encounters Date Type Department Care Team (Late st Contact Info) Description 06/09/2024 3:00 PM EST Office Visit [facility] [address] [place] [phone] Betsy Smith MD [address] [place] [phone] documented as of this encounter Visit Diagnoses Not on filedocumented in this encounter Additional Health Concerns Assessment Noted Time PHQ-2 Depression Total Score: 2 08/31/19 24 12:00 PM EDT documented as of this encounter Care Teams Air Battle Manager Relationship Specialty Start Date End Date Betsy Smiht MD [address] [place] [phone] PCP - General 02/08/15 documented as of this encounter
--- OUTSIDE RECORDS SUMMARY | 2024-03-25 02:48 | XMS_ITS | Encounter Summary ---
[facility] Address [address] [place] [address] Care Team Providers Care Imaging Account Manager Name Role Phone Betsy Smith MD Primary Care Provider [phone] Reason for Visit * Reason Comments Hospital Follow Up Visit Left hip pain Altered Mental Status Encounter Details Date Type Department Care Team (Latest Contact Info) Description 06/28/2023 11:30 AM EST Office Visit [facility] [address] [place] [phone] [place] [address] [place] [id number] Osteoarthritis of left hip (Primary Dx); Avascular necrosis of hip, left; Hyponatremia; Hyperkalemia; Hypertension; Need for COVID-19 vaccine; Constipation; Insomnia; Itchy eyes Social History Tobacco Use Types Packs/Day Years [...] 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 Not on file Not on le documented as of this encounter Last Filed Vital Signs Vital Sign Reading Time Taken Comments Blood Pressure 144/72 06/28/2023 11:30 AM EST Pulse 75 06/28/2023 11:30 AM EST Temperature 36.7 ??C (98.1 ??F) 06/28/2023 11:[address] Respiratory Rate - - Oxygen Saturation 100% 06/28/2023 11:30 AM EST Inhaled Oxygen Concentration - - Weight 65 kg (143 lb 6.4 oz) 06/28/2023 11:30 AM EST Height - - Body Mass Index 23.13 06/12/2023 12:53 PM EST documented in this encounter Progress Notes * Betsy Smith MD - 06/28/2023 7:40 PM ESTAssociated Problem(s): Insomnia Advise against med RX, otilio with recent increased confusion and fall risk; advised most important intervention is to prevent daytime dozing/napping; rec setting alarms or phone calls as no one else ishome during the daytime * Betsy Smith MD - 06/28/2023 7:36 PM ESTAssociated Problem(s): Constipation Likely drug-induced with recent hydrocodone; rec fiber supplement (metamucil ok) and increased water intake; rec colace 100mg QD as stool softener; ok for prune juice (inquiry per daughter); rec short episodes of walking as tolerated to improve intestinal motility * Betsy Smith MD - 06/28/2023 11:30 AM EST TRANSITIONAL CARE HOSPITAL FOLLOW-UP VISIT Hospitalized at: [] [facility] [] [place] [] [x] Other - [facility] Outside records reviewed. Pertinent radiology and labs reviewed [] Records requested Dates of hospitalization: Admission - 06/16/23 Discharge - 06/17/23 If transferred to rehab facility, date of discharge : n/a Hospital Course: presented to ER with complaints of progressively worsening left hip pain, weaknessand confusion. Admitted for hyponatremia and hyperkalemia. CT pelvis as noted. Recommended by orthoto f/u at ortho Dr. Bates for hip replacement. Lab/Radiology Results: 06/16/23 CT pelvis - severe L femoroacetabular DJD, osteophytes, degenerative cystic changes, lg L hip effusion, mod bilat SI DJD, mod-severe DJD L-spine 06/16/23 CBC with H&H 11.2/32.7, CMP with Na 123, K 5.8, CRP elev 7.8, lactic acid 0.9, A1C 6.0 New Medications or Medication Changes: Hydrocodone 5/325 prn Current outpatient and discharge medications have been reconciled for the patient. Reviewed by: Betsy Smith MD Status: unchanged Current symptoms: Persistent left hip pain leading to decr'd mobility Insomnia but naps all through the day Confusion, hallufincations Constipation Post discharge concerns/issues: family reports needing to wait 3 mos for L KUSH because of the steroid injection in 05/30. Requesting wheelchair RX and handicap tag. Confusion about her medications - did not feel the ones give after rehab; could not get at pharmacy. Treatment plan Med Changes: reviewed and updated with patient was not required at this time Referrals: none Risk for Readmission (LACE) No data recorded Follow-up appointments: ortho Dr. Bustillos in 6 wks Discussed with: patient and family (daughter Yony and son Nory) Chief Complaint Patient presents with Hospital Follow Up Visit Left hip pain Altered Mental Status History of Present Illness 88 y.o. woman, accompanied by daughter Shaylee and son Nory, presents for hospital follow-up for L hip pain, hyponatremia, and hypokalemia. Recommended to go to [facility] for L. KUSH. Reports she needs to wait 3 mos for the surgery bc of the last hip steroid injection. Seen by [facility] Dr. Bustillos 06/25/23. Noted to have 2 sterpod injections in the L hip; last injection was 05/29/23. Deemed to have advanced AVN of left hip. Recommended to proceed with L. KUSH in 6 wks. Has been using rolling walker or wheelchair. Complains of constipation; takes miralax QOD. Daughter giving her dulcolax regularly. Previously onhydrocodone - does not have anymore. Wondering about tylenol dosing. Also complaints of itchy eyes x 1 wk. No known exposures. Eyes were red, not today. Review of Systems ROS (+) for severe L hip pain and decreased walking. Uses walker at home. ROS (+) for dozing off and napping a lot during the daytime and subsequent nighttime insomnia. ROS (+) for constipation. ROS (+) for itchy eyes without pain, drainage, or vision changes All other ROS reviewed and negative. Current Outpatient Medications: acetaminophen (TYLENOL) 500 MG prn alendronate (FOSAMAX) 70 MG weekly calcium carbonate (OS-ANUEL) 600 MG BID cholecalciferol (VITAMIN D3) 1000 units QD irbesartan (AVAPRO) 300 MG QD metFORMIN ER (GLUCOPHAGE-XR) 750 MG 2 QD ICAPS AREDS 2 QD Smooth Move Tea QHS Omeprazole 20 MG QD pioglitazone (ACTOS) 30 MG QD VITALS: BP 144/72 Pulse 75 Temp 98.1 ??F (36.7 ??C) Wt 65 kg (143 lb 6.4 oz) SpO2 100% BMI 23.13 kg/m?? Physical Exam Vitals and nursing note reviewed. Constitutional: General: She is not in acute distress. Appearance: Normal appearance. She is not ill-appearing. Eyes: General: No scleral icterus. Extraocular Movements: Extraocular movements intact. Conjunctiva/sclera: Conjunctivae normal. Comments: No conjunctival injection; no swelling of eyelids; minimal puffiness beneath eyes bilaterally Cardiovascular: Rate and Rhythm: Normal rate and regular rhythm. Heart sounds: Normal heart sounds. Pulmonary: Effort: Pulmonary effort is normal. No respiratory distress. Breath sounds: Normal breath sounds. No wheezing, rhonchi or rales. Musculoskeletal: Comments: Sitting in wheelchair Neurological: Mental Status: She is alert. Mental status is at baseline. Psychiatric: Mood and Affect: Mood normal. Behavior: Behavior normal. LABS Results for orders placed or performed in visit on 06/05/23 POC Glycosylated Hemoglobin (Hb A1C) Specimen: Blood Result Value Ref Range Hemoglobin A1C 6.4 (A) 4.5 - 5.7 % Lot Number [id number] Expiration Date 11/05/2405/30 H&H 11.7/35.5 03/28 H&H 11.3/36.9 ASSESSMENT/PLAN Diagnoses and all orders for this visit: 1. Osteoarthritis of left hip (Primary) Assessment & Plan: L. KUSH per [facility] Dr. Bustillos; rec leg strengthening exercises as tolerated; ok for tylenol extra-strength 2 tabs TID prn; RX for wheelchair and handicap given today Note fall risk; advised getting Life Alert or something similar since no one is home with her during the daytime 2. Avascular necrosis of hip, left Assessment & Plan: L. KUSH per [facility] Dr. Bustillos Orders: - CBC & Differential; Future 3. Hyponatremia Assessment & Plan: Consider d/t dehydration; f/u BMP Orders: - Basic Metabolic Panel; Future 4. Hyperkalemia Comments: f/u BMP; ok to cont irbesartan 5. Hypertension Assessment & Plan: BP mildly elevated, likely exac'd by hip pain; cont irbesartan 300mg QD and rec home monitoring with goal < 130/80; consider addition of amlodipine if remains elevated 6. Need for COVID-19 vaccine - COVID-19 F23 (Pfizer) 12yrs+ (ARABELLA) 7. Constipation Assessment & Plan: Likely drug-induced with recent hydrocodone; rec fiber supplement (metamucil ok) and increased water intake; rec colace 100mg QD as stool softener; ok for prune juice (inquiry per daughter); rec short episodes of walking as tolerated to improve intestinal motility 8. Insomnia Assessment & Plan: Advise against med RX, otilio with recent increased confusion and fall risk; advised most important intervention is to prevent daytime dozing/napping; rec setting alarms or phone calls as no one else ishome during the daytime 9. Itchy eyes Comments: rec zaditor 1 gtt OU BID ADDENDUM 07/03/23: RX for wheelchair as previously noted in the office note. Patient has severe lefthip arthritis and cannot safely ambulate only with a walker. It is reasonable that she requires a wheelchair for mobility within her house. FOLLOW-UP Health maintenance - flu vacc 03/29; rec COVID19 (given today) and RSV vacc (get at pharmacy) - counseling given BMP and CBC on the way out the door RX for wheelchair and handicap tag given today RTC 08/31/23 for f/u on BP Electronically signed by: Betsy Smith MD, FACP 06/28/2023 * Maye Salazar MA - 06/28/2023 11:30 AM EST Immunization Immunization performed in right deltoid by Maye Salazar MA. Patient tolerated the procedure well without complications. 06/28/23 Maye Salazar MA * Betsy Smith MD - 06/27/2023 10:33 PM ESTAssociated Problem(s): Osteoarthritis of left hip L. KUSH per [facility] Dr. Bustillos; rec leg strengthening exercises as tolerated; ok for tylenol extra-strength 2 tabs TID prn; RX for wheelchair and handicap given today Note fall risk; advised getting Life Alert or something similar since no one is home with her during the daytime * Betsy Smith MD - 06/27/2023 10:33 PM ESTAssociated Problem(s): Avascular necrosis of hip, left L. KUSH per [facility] Dr. Bustillos * Betsy Smith MD - 06/27/2023 10:32 PM ESTAssociated Problem(s): Hyponatremia Consider d/t dehydration; f/u BMP * Betsy Smith MD - 06/27/2023 10:30 PM ESTAssociated Problem(s): Hypertension BP mildly elevated, likely exac'd by hip pain; cont irbesartan 300mg QD and rec home monitoring with goal < 130/80; consider addition of amlodipine if remains elevated documented in this encounter Plan of Treatment Upcoming Encounters Date Type Department Care Team (Late st Contact Info) Description 06/09/2024 3:00 PM EST Office Visit [facility] [address] [place] [phone] Betsy Smith MD [address] [place] [address] [phone] documented as of this encounter Visit Diagnoses Diagnosis Osteoarthritis of left hip- Primary Avascular necrosis of hip, left Hyponatremia Hyposmolality and/or hyponatremia Hyperkalemia Hyperpotassemia Hypertension Unspecified essential hypertension Need for COVID-19 vaccine Constipation Unspecified constipation Insomnia Itchy eyes Other ill-defined disorder of eye documented in this encounter Additional Health Concerns Assessment Noted Time PHQ-2 Depression Total Score: 6 06/05/19 24 10:41 AM EST documented as of this encounter Care Teams Imaging Account Manager Relationship Specialty Start Date End Date Betsy Smith MD [address] [place] [id number] PCP - General 02/08/15 documented as of this encounter
--- OUTSIDE RECORDS SUMMARY | 2024-03-25 02:48 | XMS_ITS | Encounter Summary ---
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 Call Center TCM Note Flowsheet Row Responses [facility] patient discharged from? Non-[facility] Does the patient have one of the following disease processes/diagnoses(primary or secondary)? TotalJoint Replacement TCM attempt successful? No Unsuccessful attempts Attempt 2 Call Status Voice mail issues [Mailbox is full] Does the patient have an appointment with their PCP within 7-14 days of discharge? Yes [10/18/2023 11:15 AM] Jasmin Page RN 10/08/2023, 16:38 EDT documented in this encounter Plan of Treatment Upcoming Encounters Date Type Department Care Team (Late st Contact Info) Description 06/09/2024 3:00 PM EST Office Visit [facility] INTER[facility] MEDICINE [address] [place] [phone] Betsy Smith MD [address] [place] [address] documented as of this encounter Visit Diagnoses Not on filedocumented in this encounter Additional Health Concerns Assessment Noted Time PHQ-2 Depression Total Score: 2 08/31/19 24 12:00 PM EDT documented as of this encounter Care Teams Branch Office Administrator Relationship Specialty Start Date End Date Betsy Smith MD [address] [place] [id number] PCP - General 02/08/15 documented as of this encounter
--- OUTSIDE RECORDS SUMMARY | 2024-03-25 02:48 | XMS_ITS | Encounter Summary ---
[facility] [address] [place] [address] Care Team Providers Care Administrative Library Assistant Name Role Phone Betsy Smith MD Primary Care Provider [phone] Reason for Visit * Reason Comments Diabetes Hypertension Encounter Details Date Type Department Care Team (Late st Contact Info) Description 11/12/2023 2:00 PM EDT Office Visit [facility] INTERNAL MEDICINE [address] [place] [phone] Betsy Smith MD [address] [place] [phone] Hypertension (Primary Dx); Hyponatremia; Normocytic anemia; Type 2 diabetes mellitus with stage 3b chronic kidney disease, without long-term current use of insulin; Stage 3a chronic kidney disease; Mild cognitive impairment; Vaccine counseling Social History Tobacco Use Types Packs/Day Years [...] 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 Not on le documented as of this encounter Last Filed Vital Signs Vital Sign Reading Time Taken Comments Blood Pressure 144/70 11/12/2023 2:03 PM EDT Pulse 73 11/12/2023 2:03 PM EDT Temperature 36.7 ??C (98.1 ??F) 11/12/2023 2:03 PM ED T Respiratory Rate - - Oxygen Saturation 100% 11/12/2023 2:03 PM EDT Inhaled Oxygen Concentration - - Weight 66.4 kg (146 lb 6.4 oz) 11/12/2023 2:03 P M EDT Height 167.6 cm (5' 6 ) 11/12/2023 2:03 PM EDT Body Mass Index 23.63 11/12/2023 2:03 PM EDT documented in this encounter Progress Notes * Betsy Smith MD - 11/12/2023 10:42 PM EDTAssociated Problem(s): Mild cognitive impairment F/u in 2 mos with updated MMSE and consider medication for memory if indicated * Betsy Smith MD - 11/12/2023 10:41 PM EDTAssociated Problem(s): CKD (chronic kidney disease), stage III Renal function worsened again with Cr 1.0, GFR 53 (previously nl GFR 65, Cr 0.87 in 10/28); discussed adequate fluid intake in the context of fluid restriction for chronic hyponatremia; patient aware to avoid NSAIDs; f/u BMP in 2 mos for serial examination * Betsy Smith MD - 11/12/2023 2:00 PM EDT Chief Complaint Patient presents with Diabetes Hypertension History of Present Illness 88 y.o. female, accompanied by her granddaughter Alberta, presents for f/u on BP as wellas f/u on low Na, anemia, and DM. Home BPs have been mostly 110-130s/70s, rarely in the 140s systolic. Reports all FBGs < 100 and nonfasting BGs < 140. Has been drinking glucerna when she can't figure out what to eat. Wondering whether to restart alendronate; was told by rehab facility to hold medication d/t hip replacement. Next ortho appt pending 11/22/23. Has rolling walker today but mostly walking without it. Concerned about some puffiness residual around left hip scar. Requesting written med list. Not sure whether she is taking fexofenadine. Thinks she is taking omeprazole (noting previously on pantoprazole while in rehab). Granddaughter notes still some memory issues, oftentimes looking to her for answering questions, reassurance, or guidance. Wondering about medication for sleep; notes previous success with melatonin but ran out of medication. Tylenol at night has not been as effective; not taking tylenol PM. Review of Systems Denies CP, SOB, or change in mental status. ROS (+) for insomnia.All other ROS reviewed and negative. Current Outpatient Medications: prn calcium carbonate (OS-ANUEL) 600 MG BID cholecalciferol (VITAMIN D3) 1000 units QD ezetimibe (Zetia) 10 MG QD fexofenadine 180 MG QD Melatonin 3 MG QHS metFORMIN ER 500mg QD ICAPS AREDS 2 QD omeprazole 20 MG QD VITALS: BP 144/70 Pulse 73 Temp 98.1 ??F (36.7 ??C) Ht 167.6 cm (66 ) Wt 66.4 kg (146 lb 6.4 oz) SpO2 100% BMI 23.63 kg/m?? Her BP cuff left arm 145/70 Physical Exam Vitals and nursing note reviewed. Constitutional: General: She is not in acute distress. Appearance: Normal appearance. She is not ill-appearing. Eyes: Extraocular Movements: Extraocular movements intact. Conjunctiva/sclera: Conjunctivae normal. Pulmonary: Effort: Pulmonary effort is normal. No respiratory distress. Musculoskeletal: General: Deformity (left hip with well-healed incision, no erythema or tenderness, mild increased warmth, mild scar tissue fullness at inferior aspect of incision, nontender) present. Neurological: Mental Status: She is alert. Mental status is at baseline. Gait: Gait (using rolling walker but stable gait without it) normal. Comments: Answers questions appropriately; remembers meds correctly Psychiatric: Mood and Affect: Mood normal. Behavior: Behavior normal. LABS 11/07/23 A1C 5.5, BMP with Na 131, worsened GFR 53 Results for orders placed or performed in visit on 10/18/23 Basic Metabolic Panel Specimen: Blood Result Value Ref Range Glucose 83 65 - 99 mg/dL BUN 21 8 - 23 mg/dL Creatinine 0.87 0.57 - 1.00 mg/dL Sodium 132 (L) 136 - 145 mmol/L Potassium 4.7 3.5 - 5.2 mmol/L Chloride 98 98 - 107 mmol/L CO2 24.0 22.0 - 29.0 mmol/L Calcium 9.3 8.6 - 10.5 mg/dL BUN/Creatinine Ratio 24.1 7.0 - 25.0 Anion Gap 10.0 5.0 - 15.0 mmol/L eGFR 65.0 >60.0 mL/min/1.73 Magnesium Specimen: Blood Result Value Ref Range Magnesium 2.4 1.6 - 2.4 mg/dL CBC Auto Differential Specimen: Blood Result Value Ref Range WBC 6.18 3.40 - 10.80 10*3/mm3 RBC 3.51 (L) 3.77 - 5.28 10*6/mm3 Hemoglobin 9.3 (L) 12.0 - 15.9 g/dL Hematocrit 29.7 (L) 34.0 - 46.6 % MCV 84.6 79.0 - 97.0 fL MCH 26.5 (L) 26.6 - 33.0 pg MCHC 31.3 (L) 31.5 - 35.7 g/dL RDW 14.7 12.3 - 15.4 % RDW-SD 45.2 37.0 - 54.0 fl MPV 9.5 6.0 - 12.0 fL Platelets 493 (H) 140 - 450 10*3/mm3 Neutrophil % 69.6 42.7 - 76.0 % Lymphocyte % 16.2 (L) 19.6 - 45.3 % Monocyte % 11.3 5.0 - 12.0 % Eosinophil % 1.9 0.3 - 6.2 % Basophil % 0.8 0.0 - 1.5 % Immature Grans % 0.2 0.0 - 0.5 % Neutrophils, Absolute 4.30 1.70 - 7.00 10*3/mm3 Lymphocytes, Absolute 1.00 0.70 - 3.10 10*3/mm3 Monocytes, Absolute 0.70 0.10 - 0.90 10*3/mm3 Eosinophils, Absolute 0.12 0.00 - 0.40 10*3/mm3 Basophils, Absolute 0.05 0.00 - 0.20 10*3/mm3 Immature Grans, Absolute 0.01 0.00 - 0.05 10*3/mm3 nRBC 0.0 0.0 - 0.2 /100 WBC 09/25/23 Na 126 09/24/23 H&H 7.8/23.7 09/04/23 A1C 6.0 ASSESSMENT/PLAN Diagnoses and all orders for this visit: 1. Hypertension (Primary) Assessment & Plan: BP mildly elevated but home readings remain acceptable 110-130s systolic; no meds (previously irbesartan 300mg QD); BP machine verified today; cont home BP monitoring QD (currently checking BID) 2. Hyponatremia Assessment & Plan: BMP with stable bord Na 131; snot quite following 1.5L/day fluid restriction - probably getting about 75-100oz per day 3. Normocytic anemia Assessment & Plan: Stable CBC 4. Type 2 diabetes mellitus with stage 3b chronic kidney disease, without long- term current use of insulin Assessment & Plan: BG control improved with A1C 5.5; will d/c met ER 500mg QD (previously 1500mg QD) 5. Vaccine counseling Comments: rec flu vacc and COVID19 vacc in the fall 6. Stage 3a chronic kidney disease Assessment & Plan: Renal function worsened again with Cr 1.0, GFR 53 (previously nl GFR 65, Cr 0.87 in 10/28); discussed adequate fluid intake in the context of fluid restriction for chronic hyponatremia; patient aware to avoid NSAIDs; f/u BMP in 2 mos for serial examination 7. Mild cognitive impairment Assessment & Plan: F/u in 2 mos with updated MMSE and consider medication for memory if indicated FOLLOW-UP Health maintenance - rec flu vacc and COVID19 vacc in the fall; RSV vacc completed RTC 2 mos with MMSE and BMP (escribed) and BP check Electronically signed by: Betsy Smith MD, FACP 11/12/2023 * Betsy Smith MD - 11/12/2023 1:37 AM EDTAssociated Problem(s): Hypertension BP mildly elevated but home readings remain acceptable 110-130s systolic; no meds (previously irbesartan 300mg QD); BP machine verified today; cont home BP monitoring QD (currently checking BID) * Betsy Smith MD - 11/12/2023 1:36 AM EDTAssociated Problem(s): Hyponatremia BMP with stable bord Na 131; snot quite following 1.5L/day fluid restriction - probably getting about 75-100oz per day * Betsy Smith MD - 11/12/2023 1:36 AM EDTAssociated Problem(s): Normocytic anemia Stable CBC * Betsy Smith MD - 11/12/2023 1:35 AM EDTAssociated Problem(s): Type 2 diabetes mellitus with stage 3b chronic kidney disease, without long-term current use of insulin BG control improved with A1C 5.5; will d/c met ER 500mg QD (previously 1500mg QD) documented in this encounter Plan of Treatment Upcoming Encounters Date Type Department Care Team (Late st Contact Info) Description 06/09/2024 3:00 PM EST Office Visit [facility] [address] [place] [phone] Betsy Smith MD [address] [place] [phone] documented as of this encounter Visit Diagnoses Diagnosis Hypertension- Primary Unspecified essential hypertension Hyponatremia Hyposmolality and/or hyponatremia Normocytic anemia Unspecified anemia Type 2 diabetes mellitus with stage 3b chronic kidney disease, without long-term current use of insulin Stage 3a chronic kidney disease Mild cognitive impairment Mild cognitive impairment, so stated Vaccine counseling documented in this encounter Additional Health Concerns Assessment Noted Time PHQ-2 Depression Total Score: 2 08/31/19 24 12:00 PM EDT documented as of this encounter Care Teams Administrative Library Assistant Relationship Specialty Start Date End Date Betsy Smith MD [address] [place] [id number] PCP - General 02/08/15 documented as of this encounter
--- OUTSIDE RECORDS SUMMARY | 2024-03-25 02:48 | XMS_ITS | Encounter Summary ---
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 Will need to repeat in 1 month Sodium level is also improved. Continue aiming for 1.5L fluids per day. Repeat nonfasting labs the week prior to next appt * Telephone Encounter - Maye Salazar MA - 10/19/2023 7:54 AM EDT ----- Message from Betsy Smith sent at 10/19/2023 12:13 AM EDT ----- Pls call her family - Blood counts not back to baseline but anemia is improved. Will need to repeat in 1 month Sodium level is also improved. Continue aiming for 1.5L fluids per day. Repeat nonfasting labs the week prior to next appt documented in this encounter Plan of Treatment Upcoming Encounters Date Type Department Care Team (Late st Contact Info) Description 06/09/2024 3:00 PM EST Office Visit [facility] INTERNAL MEDICINE [address] [place] [phone] Betsy Smith MD [address] [place] [phone] documented as of this encounter Visit Diagnoses Not on filedocumented in this encounter Additional Health Concerns Assessment Noted Time PHQ-2 Depression Total Score: 2 08/31/19 24 12:00 PM EDT documented as of this encounter Care Teams Paper Cleaner Relationship Specialty Start Date End Date Betsy Smith MD [address] [place] [id number] PCP - General 02/08/15 documented as of this encounter
--- OUTSIDE RECORDS SUMMARY | 2024-03-25 02:48 | XMS_ITS | Encounter Summary ---
Author Organization [facility] ystem Address [address] [place] [address] Care Team Providers Care Brazer Furnace Name Role Phone Betsy Smith MD Primary Care Provider [phone] Encounter Details Date Type Department Care Team (Late st Contact Info) Description 07/02/2023 Telephone 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 * Telephone Encounter - Maye Salazar MA - 07/02/2023 10:06 AM EST ----- Message from Betsy Smith MD sent at 06/30/2023 6:40 PM EST ----- Dear Tasneem Thank you for obtaining the laboratories that we ordered. I have received those results and would like to review them with you. Your blood counts, thyroid test, electrolytes, and vitamin levels are within normal limits except for a borderline low sodium level. I would advise ensuring drinking enough water daily to help this. Please do not increase your salt intake. The other results show normal thyroid, liver, and kidney function. Your hemoglobin A1C, the 3-month average of sugars, is stable at 6.3 (goal < 6.5). Please continue pioglitazone 1x/day and metformin XR 2 tabs 1x/day for your diabetes. Your cholesterol profile is mildly worsened, showing a total cholesterol of 184 (goal < 200). Your triglycerides are acceptable at 56 with a goal < 150. Your HDL, the good cholesterol, is good at 79. HDL is heart protective, and the goal is > 50 in women. Your LDL, the bad cholesterol and the most important value of the profile, is elevated at 94. Goal for LDL is < 70. You are taking zetia 1x/day for the cholesterol. Let me know if you have any questions or concerns regarding these results. Sincerely, Betsy Smith MD, FACP documented in this encounter Plan of Treatment Upcoming Encounters Date Type Department Care Team (Late st Contact Info) Description 06/09/2024 3:00 PM EST Office Visit [facility] INTERNAL MEDICINE [address] [place] [phone] Betsy Smith MD [address] [place] [phone] documented as of this encounter Visit Diagnoses Not on filedocumented in this encounter Additional Health Concerns Assessment Noted Time PHQ-2 Depression Total Score: 6 06/05/19 24 10:41 AM EST documented as of this encounter Care Teams [employer] Relationship Specialty Start Date End Date Betsy Smith MD [address] [place] [phone] PCP - General 02/08/15 documented as of this encounter
--- OUTSIDE RECORDS SUMMARY | 2024-03-25 02:48 | XMS_ITS | Encounter Summary ---
Author Organization 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 Call Center TCM Note Flowsheet Row Responses [facility] patient discharged from? Non-BH Does the patient have one of the following disease processes/diagnoses(primary or secondary)? TotalJoint Replacement TCM attempt successful? No Unsuccessful attempts Attempt 1 Does the patient have an appointment with their PCP within 7-14 days of discharge? Yes [10/18/2023 at 11:15 AM] Jasmin Page RN 10/08/2023, 13:44 EDT documented in this encounter Plan of Treatment Upcoming Encounters Date Type Department Care Team (Late st Contact Info) Description 06/09/2024 3:00 PM EST Office Visit [facility] INTERNAL MEDICINE [address] [place] [phone] Betsy Smith MD [address] [place] [address] documented as of this encounter Visit Diagnoses Not on filedocumented in this encounter Additional Health Concerns Assessment Noted Time PHQ-2 Depression Total Score: 2 08/31/19 24 12:00 PM EDT documented as of this encounter Care Teams Steam Locomotive Firer/Fireman Relationship Specialty Start Date End Date Betsy Smith MD [address] [place] [address] PCP - General 02/08/15 documented as of this encounter
--- OUTSIDE RECORDS SUMMARY | 2024-03-25 02:48 | XMS_ITS | Encounter Summary ---
[facility] Address [address] [place] [address] Care Team Providers Care Land Acquisition Specialist Name Role Phone Betsy Smith MD Primary Care Provider [phone] Reason for Visit * Reason Comments Hospital Follow Up Visit Encounter Details Date Type Department Care Team (Latest Contact Info) Description 10/18/2023 11:15 AM EDT Office Visit [facility] [address] [place] [phone] Betsy Smith MD [address] [place] [id number] Osteoarthritis of left hip (Primary Dx); Type 2 diabetes mellitus with stage 3b chronic kidney disease, without long-term current use of insulin; Hypertension; Hyponatremia; Normocytic anemia; Hyperkalemia; Hypomagnesemia; Bilateral impacted cerumen; Gastroesophageal reflux disease, unspecified whether esophagitis present; Osteoporosis; Sensorineural hearing loss (SNHL) of both ears; Constipation; Vaccine counseling; Mild cognitive impairment Social History Tobacco Use Types Packs/Day Years [...] 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 file Not on le documented as of this encounter Last Filed Vital Signs Vital Sign Reading Time Taken Comments Blood Pressure 132/68 10/18/2023 10:57 AM EDT Pulse 74 10/18/2023 10:57 AM EDT Temperature 36.9 ??C (98.4 ??F) 10/18/2023 1 0:57 AM EDT Respiratory Rate - - Oxygen Saturation 97% 10/18/2023 10: 57 AM EDT Inhaled Oxygen Concentration - - Weight 74.3 kg (163 lb 12.8 oz) 024 10:57 AM EDT Height 167.6 cm (5' 6 ) 10/18/2023 10:5 7 AM EDT Body Mass Index 26.44 10/18/2023 10:57 AM EDT documented in this encounter Progress Notes * Betsy Smith MD - 10/18/2023 10:00 PM EDTAssociated Problem(s): Mild cognitive impairment Mental clarity seems improved today, previous decline attributed to hip OA/AVN health issues/complications), but still some word finding issues today; not back to baseline; f/u in 1 month; plan on updated MMSE down the road * Betsy Smith MD - 10/18/2023 9:54 PM EDTAssociated Problem(s): Constipation Denies constipation, therefore rec d/c klaudia-colace (on rehab discharge med list); rec addition of fiber supplement QD and increased water intake (noting 1.5L fluid restriction with hyponatremia); if constipation recurs, then rec resuming Miralax QD * Betsy Smith MD - 10/18/2023 9:47 PM EDTAssociated Problem(s): Osteoporosis Ok to resume alendronate 70mg weekly * Betsy Smith MD - 10/18/2023 9:46 PM EDTAssociated Problem(s): Esophageal reflux On pantoprazole while hospitalization and in rehab, but ok to resume home omeprazole 20mg QD * Betsy Smith MD - 10/18/2023 9:46 PM EDTAssociated Problem(s): Sensorineural hearing loss (SNHL) of both ears Agree with updated hearing evaluation but bilat cerumenectomy performed today * Betsy Smith MD - 10/18/2023 11:15 AM EDTAddended by: BETSY SMITH on: 10/19/2023 12:14 AM Modules accepted: Orders * Betsy Smith MD - 10/18/2023 11:15 AM EDT TRANSITIONAL CARE HOSPITAL FOLLOW-UP VISIT Hospitalized at: [] [facility] [] [place] [x] [] Other - Outside records reviewed. Pertinent radiology and labs reviewed [] Records requested Dates of hospitalization: Admission - 09/19/23 Discharge - 09/25/23 If transferred to rehab facility, date of discharge : 10/05/23 Hospital Course: admitted by Dr. Bustillos for L. KUSH. 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 Irbesartan was held during hospitalization. Lab/Radiology Results: 09/20/23 serume osm 274 09/21/23 Na 125, urine osm 346, Mg 1.9, CBC with H&H 7.0/21.5 09/23/23 H&H 7.6/22.4; Na 128, K 5.3, Cr 0.93 09/24/23 H&H 7.8/23.7 09/25/23 Na 126 New Medications or Medication Changes: Irbesartan remains on hold Pioglitazone remains on hold Alendronate remains on hold Pantoprazole 40mg QD Metformin XR 500mg QD ASA 81MG QD Not on vit D 1000 units QD Not taking gabapentin 100mg QHS Not taking hydrocodone Current outpatient and discharge medications have been reconciled for the patient. Reviewed by: Betsy Smith MD Status: better Current symptoms: Left hip swelling and firmness leg swelling Decreased hearing, stopped up ears Post discharge concerns/issues: leg swelling as noted. Treatment plan Med Changes: reviewed and updated with patient Change pantoprazole back to omeprazole 20mg QD Resume vit D 1000 units QD Resume alendronate 70mg weekly Decreased ASA 81mg BID back to QD Cont met ER 500mg QD Discontinue colace Discontinue gabapentin Discontinue hydrocodone Discontinue Mg oxide Referrals: none Risk for Readmission (LACE) No data recorded Follow-up appointments: ortho as scheduled; physical therapy as scheduled Discussed with: patient and other- granddaughter Alberta Chief Complaint Patient presents with Hospital Follow Up Visit History of Present Illness 88 y.o. woman, accompanied by her granddaughter Alberta, presents for hospital f/u afterL KUSH for arthritis. Had postop ortho visit last week 10/09/23. Was instructed to utilize hip abductor pillow and night immobilizer to decr risk of dislocation. States she is now sleeping in recliner with pillow between her legs but has not received the immobilizer. Kyree were removed at that visit. Is concerned with swelling and firmness along incision at the left hip. Has bilat lower leg swelling as well. Not drinking a lot of water daily. Has been drinkin 1 glucerna per day (TID while in the hospital); also drinking Sprite and 1 cup decaff coffee. Reports not having significant pain, therefore has only taken 1 dose of gabapentin and 1 dose of hydrocodone since rehab discharge. Notes some constipation but not rock hard stools. Notes some soft stools, not having logs. Denies blood in stools. Reports going to PT 2x/week. Not consistently doing any exercises on off days but reports they did give her exercises to do at home. Review of hospitalization includes 2u pRBCs transfusion for persistent/recurrent anemia with goal Hgb > 7. Also had persistent hyponatremia with instructions to continue 1.5L fluid restriction per day. Irbesartan was held due to hyperkalemia as well as nl BPs. Has not been following any fluid amount guidelines. Home BGs have been mostly 90-100s fasting, nonfasting up to 130s. Review of Systems Denies CP, SOB, abd pain, n/v. Denies significant left hip pain after replacement. ROS (+) for BLE swelling L>R, left hip swelling and firmness around incision. All other ROS reviewed and negative. Current Outpatient Medications: acetaminophen (TYLENOL) 500 MG prn aspirin 81 MG BID ezetimibe (Zetia) 10 MG QD Melatonin 3 MG QHS metFORMIN ER 500mg QD CAPS AREDS 2 QD Ca Phosphate-Cholecalciferol BID pantoprazole 40mg QD VITALS: BP 132/68 Pulse 74 Temp 98.4 ??F (36.9 ??C) Ht 167.6 cm (66 ) Wt 74.3 kg (163 lb 12.8 oz) SpO2 97% BMI 26.44 kg/m?? Physical Exam Vitals and nursing note reviewed. Constitutional: General: She is not in acute distress. Appearance: Normal appearance. She is not ill-appearing. HENT: Right Ear: External ear normal. There is impacted cerumen. Left Ear: External ear normal. There is impacted cerumen. Eyes: Extraocular Movements: Extraocular movements intact. Conjunctiva/sclera: Conjunctivae normal. Cardiovascular: Rate and Rhythm: Normal rate and regular rhythm. Heart sounds: Normal heart sounds. Pulmonary: Effort: Pulmonary effort is normal. No respiratory distress. Breath sounds: No wheezing, rhonchi or rales. Musculoskeletal: General: Deformity (incision left hip well-approximated, minimal scabbing, no erythema or drainage;mild firmness along mid-anterior aspects of incision but symmetric from right hip) present. Right lower leg: Edema present. Left lower leg: Edema (no pedal edema but lower leg edema above ankles to mid- kamara BLE L>R) present. Neurological: Mental Status: She is alert and oriented to person, place, and time. Mental status is at baseline. Gait: Gait abnormal (using rolling walker (no longer in wheelchair)). Comments: Improved mental clarity but having some word finding issues Psychiatric: Mood and Affect: Mood normal. Behavior: [...] pH, UA 6.0 5.0 - 8.0 Specific [place], UA 1.023 1.005 - 1.030 Glucose, UA [...] None Seen /HPF Methodology Manual Light Microscopy 09/17/23 Na 128, K 4.7 09/14/23 Na 129 09/12/23 Na 127 09/04/23 A1C 6.0 ASSESSMENT/PLAN Diagnoses and all orders for this visit: 1. Osteoarthritis of left hip (Primary) Assessment & Plan: S/p L KUSH per Dr. Bustillos with recent postop visit 10/09/23; advised to wear hip immobilizer and toutilize hip abductor pillow to decr risk of dislocation; has 6 wks f/u with ortho; remains on ASA 81mg BID for DVT prophylaxis - should be finished tomorrow and then rec resuming ASA 81mg QD; rec iceto the left hip for swelling, 20 minutes 3x/day; has PT 2x/week ([facility]) but advised laurita ent should be doing HEP every single day 2. Type 2 diabetes mellitus with stage 3b chronic kidney disease, without long- term current use of insulin Assessment & Plan: BGs were stable during hospitalization, mostly 100-130s; pioglitazone was held during hospitalization; metformin ER decreased to 500mg QD during rehab (previously on 750mg 2 QD); cont home BG monitoring (rec fasting and 2h postprandial BGs) and cont met ER 500mg QD; f/u A1C in 1 month 3. Hypertension Assessment & Plan: Irbesartan held during hospitalization and subacute rehab due to nl BPs and bord hyperkalemia; BP bord today but normotensive at home; cont monitoring BPs 1x/day and cont to hold irbesartan for now; rec low Na diet and cont PT; f/u in 1 month 4. 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 Normocytic anemia Assessment & Plan: Acute on chronic anemia, s/p transfusion 2u pRBCs during hospitalization; f/u CBC today Orders: - CBC & Differential; Future 6. Hyperkalemia Comments: f/u BMP; remains off of irbesartan Orders: - Basic Metabolic Panel; Future 7. Hypomagnesemia Comments: f/u Mg on Mg oxide 400mg QD Orders: - Magnesium; Future 8. Bilateral impacted cerumen Comments: s/p lavage with water pick and instrumentation with ear scoop; tolerated procedure well, no complications; agree with audiology eval for decreased hearing 9. Gastroesophageal reflux disease, unspecified whether esophagitis present Assessment & Plan: On pantoprazole while hospitalization and in rehab, but ok to resume home omeprazole 20mg QD 10. Osteoporosis Assessment & Plan: Ok to resume alendronate 70mg weekly 11. Sensorineural hearing loss (SNHL) of both ears Assessment & Plan: Agree with updated hearing evaluation but bilat cerumenectomy performed today 12. Constipation Assessment & Plan: Denies constipation, therefore rec d/c klaudia-colace (on rehab discharge med list); rec addition of fiber supplement QD and increased water intake (noting 1.5L fluid restriction with hyponatremia); if constipation recurs, then rec resuming Miralax QD 13. Vaccine counseling Comments: rec 2nd dose COVID19 vacc - get at pharmacy 14. Mild cognitive impairment Assessment & Plan: Mental clarity seems improved today, previous decline attributed to hip OA/AVN health issues/complications), but still some word finding issues today; not back to baseline; f/u in 1 month; plan on updated MMSE down the road FOLLOW-UP Health maintenance - flu vaccine, COVID19 vaccine, and RSV vaccine, completed for this season; rec consideration of 2nd dose COVID19 vacc BMP, CBC, Mg on the way out the door RTC 1 month for BP check and A1C; may need f/u BMP and CBC as well depending on lab results from today Electronically signed by: Betsy Smith MD, FACP 10/18/2023 * Betsy Smith MD - 10/16/2023 10:39 PM EDTAssociated Problem(s): Type 2 diabetes mellitus with stage 3b chronic kidney disease, without long-term current use of insulin BGs were stable during hospitalization, mostly 100-130s; pioglitazone was held during hospitalization; metformin ER decreased to 500mg QD during rehab (previously on 750mg 2 QD); cont home BG monitoring (rec fasting and 2h postprandial BGs) and cont met ER 500mg QD; f/u A1C in 1 month * Betsy Smith MD - 10/16/2023 10:37 PM EDTAssociated Problem(s): Osteoarthritis of left hip S/p L KUSH per Dr. Bustillos with recent postop visit 10/09/23; advised to wear hip immobilizer and toutilize hip abductor pillow to decr risk of dislocation; has 6 wks f/u with ortho; remains on ASA 81mg BID for DVT prophylaxis - should be finished tomorrow and then rec resuming ASA 81mg QD; rec iceto the left hip for swelling, 20 minutes 3x/day; has PT 2x/week ([facility]) but advised laurita ent should be doing HEP every single day * Betsy Smith MD - 10/16/2023 10:37 PM EDTAssociated Problem(s): Normocytic anemia Acute on chronic anemia, s/p transfusion 2u pRBCs during hospitalization; f/u CBC today * Betsy Smith MD - 10/16/2023 10:36 PM EDTAssociated Problem(s): Hyponatremia Persistent during hospitalization with marcia of 123; 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; reiterated recfor 1.5L fluid restriction per day; f/u BMP today * Betsy Smith MD - 10/16/2023 10:36 PM EDTAssociated Problem(s): Hypertension Irbesartan held during hospitalization and subacute rehab due to nl BPs and bord hyperkalemia; BP bord today but normotensive at home; cont monitoring BPs 1x/day and cont to hold irbesartan for now; rec low Na diet and cont PT; f/u in 1 month documented in this encounter Plan of Treatment Upcoming Encounters Date Type Department Care Team (Late st Contact Info) Description 06/09/2024 3:00 PM EST Office Visit [facility] [address] [place] [phone] Betsy Smith MD [address] [place] [address] Scheduled Orders Name Type Priority Associated Diagnoses Orde r Schedule CBC & Differential Lab Panel Routine Normocytic anemia Expected: 03/11/2024 (Approximate), Expires: 05/07/2024 Hemoglobin A1c Lab Routine Type 2 diabetes mellitus with stage 3b chronic kidney disease, without long-term current use of insulin Expected: 03/11/2024 (Approximate), Expires: 05/07/2024 documented as of this encounter Results * Magnesium (10/18/2023 1:16 PM EDT) [facility] Magnesium 2.4 1.6 - 2.4 mg/dL 10/18/2023 11:37 PM EDT [facility] Blood Venipuncture / Unknown 10/18/2023 1:16 PM EDT 10/18/2023 1:16 PM EDT Betsy Smith MD LAB BLOOD ORDERABLES Final Resul t [facility]
[address] [place] [address], * (ABNORMAL) Basic Metabolic Panel (10/18/2023 1:16 PM EDT) [facility] Glucose 83 65 - 99 mg/dL 10/18/2023 11:55 PM EDT [facility] BUN 21 8 - 23 mg/dL 10/18/2023 11:55 PM EDT [facility] Creatinine 0.87 0.57 - 1.00 mg/dL 10/18/2023 11:55 PM EDT [facility] Sodium 132(L) 136 - 145 mmol/L 10/18/2023 11:55 PM EDT [facility] Potassium 4.7 3.5 - 5.2 mmol/L 10/18/2023 11:55 PM EDT [facility] Chloride 98 98 - 107 mmol/L 10/18/2023 11:55 PM EDT [facility] CO2 24.0 22.0 - 29.0 mmol/L 10/18/2023 11:55 PM EDT [facility] Calcium 9.3 8.6 - 10.5 mg/dL 10/18/2023 11:55 PM EDT [facility] BUN/Creatinine Ratio 24.1 7.0 - 25.0 10/18/2023 11:55 PM EDT [facility] Anion Gap 10.0 5.0 - 15.0 mmol/L 10/18/2023 11:55 PM EDT [facility] eGFR 65.0 >60.0 mL/min/1.7 3 10/18/2023 11:55 PM EDT [facility] Blood Venipuncture / Unknown 10/18/2023 1:16 PM EDT 10/18/2023 1:16 PM EDT Narrative [facility] - 10/18/2023 11:55 PM EDT GFR Normal >60 Chronic Kidney Disease <60 Kidney Failure <15 The GFR formula is only valid for adults with stable renal function between ages 18 and 70. Betsy Smith MD LAB BLOOD ORDERABLES Final Resul t [facility]
[address] [place] [address], documented in this encounter Visit Diagnoses Diagnosis Osteoarthritis of left hip- Primary Type 2 diabetes mellitus with stage 3b chronic kidney disease, without long-term current use of insulin Hypertension Unspecified essential hypertension Hyponatremia Hyposmolality and/or hyponatremia Normocytic anemia Unspecified anemia Hyperkalemia Hyperpotassemia Hypomagnesemia Disorders of magnesium metabolism Bilateral impacted cerumen Impacted cerumen Gastroesophageal reflux disease, unspecified whether esophagitis present Osteoporosis Sensorineural hearing loss (SNHL) of both ears Constipation Unspecified constipation Vaccine counseling Mild cognitive impairment Mild cognitive impairment, so stated documented in this encounter Additional Health Concerns Assessment Noted Time PHQ-2 Depression Total Score: 2 08/31/19 24 12:00 PM EDT documented as of this encounter Care Teams Land Acquisition Specialist Relationship Specialty Start Date End Date Betsy Smith MD [address] [place] [address] PCP - General 02/08/15 documented as of this encounter
--- OUTSIDE RECORDS SUMMARY | 2024-03-25 02:48 | XMS_ITS | Encounter Summary ---
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 file Not on [facility] documented as of this encounter Miscellaneous Notes * Telephone Encounter - Belle Bishop MA - 07/04/2023 8:38 AM EST Faxed addended note to [facility] [employer] [facility] @[phone] * Telephone Encounter - Betsy Smith MD - 07/03/2023 8:06 PM EST I added addendum to 06/28/23 office note - pls fax them addended note * Telephone Encounter - Maye Salazar MA - 07/03/2023 4:44 PM EST Spoke with [employer] and that has to be actually in the office note for insurance purposes * Telephone Encounter - Brittney James RegSched Rep - 07/03/2023 4:10 PM EST Caller: Delaney Perales Relationship: Emergency Contact Best call back number: [phone] What was the call regarding: PATIENT'S (SON) DELANEY STATED THAT HE WAS INFORMED BY [employer] THAT THE ORDER NEEDS TO BE ADDED TO THE OFFICE NOTES FROM PATIENT'S VISIT 06/28/2023 AND NEEDS TO STATE CAN NOT USE A WALKER SAFELY WHILE IN HOME PATIENT NEEDS A WHEELCHAIR TO DO HER LIVING WITHIN HOME IN ORDER FOR THE ORDER FOR THE WHEELCHAIR TO BE PROCESSED FOR INSURANCE TO COVER documented in this encounter Plan of Treatment Upcoming Encounters Date Type Department Care Team (Late st Contact Info) Description 06/09/2024 3:00 PM EST Office Visit [facility] [address] [place] [phone] Betsy Smith MD [address] [place] [phone] documented as of this encounter Visit Diagnoses Not on filedocumented in this encounter Additional Health Concerns Assessment Noted Time PHQ-2 Depression Total Score: 6 06/05/19 24 10:41 AM EST documented as of this encounter Care Teams Battery Starter Relationship Specialty Start Date End Date Betsy Smith MD [address] [place] [id number] PCP - General 02/08/15 documented as of this encounter
--- OUTSIDE RECORDS SUMMARY | 2024-03-25 02:48 | XMS_ITS | Encounter Summary ---
[facility] [address] [place] [address] Care Team Providers Care Stretcher Drier Operator Name Role Phone Betsy Smith MD Primary Care Provider [phone] Reason for Visit * Reason Onset Date Comments New Med Request 10/09/2023 Leg Swelling 10/09/2023 Encounter Details Date Type Department Care Team (Late st Contact Info) Description 10/09/2023 Telephone [facility] [address] [place] [phone] [place] [address] [place] [address] New Med Request; Leg Swelling Social History Tobacco Use Types Packs/Day Years [...] 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 * Telephone Encounter - Betsy Smith MD - 10/09/2023 5:16 PM EDT I haven't seen her for hospital follow-up, therefore am unable to prescribe any new medications. Also in general, she will not be able to take any water pills because of her ongoing issue with lowsodium (water pills can also cause low sodium) Rec leg elevation, low sodium diet, and compression stockings for leg swelling * Telephone Encounter - Phi León RegSched Rep - 10/09/2023 1:07 PM EDT Caller: Nory Perales Relationship: Emergency Contact Best call back number: [phone] What medication are you requesting: WATER PILL What are your current symptoms: SWELLING IN LEGS How long have you been experiencing symptoms: SINCE 09/19/23 Have you had these symptoms before: [] Yes [x] No Have you been treated for these symptoms before: [] Yes [x] No If a prescription is needed, what is your preferred pharmacy and phone number: [facility] [address] [place] [address] [facility] [phone] Additional notes: documented in this encounter Plan of Treatment Upcoming Encounters Date Type Department Care Team (Late st Contact Info) Description 06/09/2024 3:00 PM EST Office Visit [facility] [address] [place] [phone] Betsy Smith MD [address] [place] [phone] documented as of this encounter Visit Diagnoses Not on filedocumented in this encounter Additional Health Concerns Assessment Noted Time PHQ-2 Depression Total Score: 2 08/31/19 24 12:00 PM EDT documented as of this encounter Care Teams Stretcher Drier Operator Relationship Specialty Start Date End Date Betsy Smith MD [address] [place] [id number] PCP - General 02/08/15 documented as of this encounter
--- OUTSIDE RECORDS SUMMARY | 2024-03-25 02:48 | XMS_ITS | Encounter Summary ---
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 Per Luis: Discharged to [facility] from 09/25/23 after L. Total hip arthroplasty Please advise patient's family to call us prior to discharge from [facility] so we can schedule hospital follow-up visit. documented in this encounter Plan of Treatment Upcoming Encounters Date Type Department Care Team (Late st Contact Info) Description 06/09/2024 3:00 PM EST Office Visit [facility]INE [address] [place] [address] Betsy Smith MD [address] [place] [address] documented as of this encounter Visit Diagnoses Not on filedocumented in this encounter Additional Health Concerns Assessment Noted Time PHQ-2 Depression Total Score: 2 08/31/19 12:00 PM EDT documented as of this encounter Care Teams Kettle Operator Relationship Specialty Start Date End Date Betsy Smith MD [address] [place] [address] PCP - General 02/08/15 documented as of this encounter
--- OUTSIDE RECORDS SUMMARY | 2024-03-25 02:48 | XMS_ITS | Encounter Summary ---
[facility] Address [address] [place] [address] Care Team Providers Care Clinical Application Manager Name Role Phone Betsy Smith MD Primary Care Provider [phone] Reason for Referral * Consultation (Routine) - Closed Specialty Diagnoses / Procedures Referred By Contac t Referred To Contact Orthopedic Surgery Diagnoses Primary osteoarthritis of left hip Lytic bone lesion of hip Freedom Huffman MD [address] [address] Phone: tel: fax: Griffin Bustillos MD [facility] [address] [place] [address] [place] [address] Phone: tel:[phone] fax:[phone] Referral ID Status Reason Start Date Expiration Date V isits Requested Visits Authorized [id number] Closed Specialty Services Required 06/12/2023 06/11/2024 1 1 Reason for Visit * Reason Comments Pain * Consultation (Routine) - Closed Specialty Diagnoses / Procedures Referred By Contact Referred To Contact Orthopedic Surgery Diagnoses Primary osteoarthritis of left hip Betsy Smith MD [address] [place] [address] Phone: tel:[phone] fax:[phone] Sathish Gomez MD [address] [place] [address] Phone: tel: fax: Referral ID Status Reason Start Date Expiration Date V isits Requested Visits Authorized [id number] Closed Specialty Services Required 06/05/2023 06/04/2024 1 1 Encounter Details Date Type Department Care Team (Late st Contact Info) Description 06/12/2023 1:00 PM EST Office Visit [facility] [address] [place] [address] Freedom Huffman MD [address] [place] [address] Lytic bone lesion of hip (Primary Dx); Left hip pain; Primary osteoarthritis of left hip Social History Tobacco [...] 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 Not on file Not on le documented as of this encounter Last Filed Vital Signs Vital Sign Reading Time Taken Comments Blood Pressure 134/72 06/12/2023 12:53 PM EST Pulse - - Temperature - - Respiratory Rate - - Oxygen Saturation - - Inhaled Oxygen Concentration - - Weight 62.7 kg (138 lb 3.2 oz) 06/12/2023 12:53 PM EST Height 167.7 cm (5' 6.02 ) 06/12/2023 12:[address] Body Mass Index 22.29 06/12/2023 12:53 PM EST documented in this encounter Progress Notes * Freedom Huffman MD - 06/12/2023 1:00 PM EST Orthopaedic Clinic Note: Hip New Patient Chief Complaint Patient presents with Left Hip - Pain HPI Tasneem Perales is a 88 y.o. female who presents with left hip pain for 4.5 month(s). Onset mechanical fall. Pain is localized to groin and is a 10/10 on the pain scale.Pain is described as aching, burning, and throbbing. Associated symptoms include pain. The pain is worse with walking, standing, sitting, climbing stairs, sleeping, working, leisure, lying on affected side, rising from seated position, and any movement of the joint; nothing improve the pain. Previous treatments have included: cane/walker, physical therapy, and injections (last injection 2 weeks 05/29/23 ) for 3 months durationor longer. Although some transient relief was reported with these interventions, these conservative measures have failed and symptoms have persisted. The patient is limited in daily activities and has had a significant decrease in quality of life as a result. She denies fevers, chills, or constitutional symptoms. Patient has undergone 2 prior injections by pain management in [place]. The most recent injection was 2 weeks ago. I have reviewed the following portions of the patient's history:History of Present Illness Past Medical History: Diagnosis Date Benign polyp of large intestine History of benign polyps of the large intestine (V12.72) colonoscopy ('04) per Dr. Egan Constipation 09 Feb 2014 discussed other RX options to include amitiza and linzess; she opts to cont miralax QD; advised adequate fiber and water intake daily with reg phys activity History of herpes zoster L. forehead History of right shoulder fracture secondary to work injury; no surgery done Hx of bone density study 03/09/2016 DEXA (03/09/16) L -1.1, H -1.9, A -4.2 Hx of bone density study 11/04/2012 DEXA (11/04/12) L -0.1, H -1.8 Hx of bone density study 06/30/2019 DEXA (06/30/19): L -1.4, H -2.0, A -5.4, worsened, repeat 2 yrs Hx of bone density study 11/16/2022 DEXA (11/16/22): L -0.2, H -0.9, A -5.4; repeat 2yrs Hx of cardiovascular stress test 03/20/2019 nl Lexiscan stress test (03/20/19): EF 65% Hx of CT L hip 03/08/2023 CT left hip (03/08/23): severe degen changes Hx of MRI of L hip 05/25/2023 MRI L hip (05/25/23): severe degen change worsened from 03/29, mod joint effusion, bone marrow edema, abnl soft tissue around fem head/neck; NS - Dr. Artis Hx of MRI of lumbar spine 04/02/2023 MRI L-spine (04/02/23, [facility]): adv to multifocal degen changes with diffuse disc bulges and mod-severe canal stenosis and bilat neuroforaminal narrowing, most severe at L4-5 Medicare annual wellness visit, subsequent 02/29/2016 Past Surgical History: Procedure Laterality Date CATARACT EXTRACTION Bilateral 11/2013 ?? s/p R (11/17) and L (12/18) cataract surgery; ophtho - Dr. Duque LUMBAR LAMINECTOMY 01/1960 ?? L5-S1 laminectomy TONSILLECTOMY Family History Problem Relation Age of Onset Diabetes Mother Kidney failure Mother Heart failure Father CHF Lung cancer Sister 52 nonsmoker; (+) secondhand smoke Breast cancer Maternal Grandmother unknown Ovarian cancer Neg Hx Colon cancer Neg Hx Social History Socioeconomic History Marital status: Tobacco Use Smoking status: Never Smokeless tobacco: Never Vaping Use Vaping Use: Never used Substance and Sexual Activity Alcohol use: Not Currently Comment: Social Drug use: Defer Sexual activity: Defer Current Outpatient Medications on File Prior to Visit Medication Sig Dispense Refill acetaminophen (TYLENOL) 500 MG tablet Take 1 tablet by mouth 3 (Three) Times a Day. alendronate (FOSAMAX) 70 MG tablet Take 1 tablet by mouth 1 (One) Time Per Week. 13 tablet 3 calcium carbonate (OS-ANUEL) 600 MG tablet Take 1 tablet by mouth 2 (Two) Times a Day With Meals. cholecalciferol (VITAMIN D3) 1000 units tablet Take 1 tablet by mouth Daily. ezetimibe (Zetia) 10 MG tablet Take 1 tablet by mouth Daily. 90 tablet 3 irbesartan (AVAPRO) 300 MG tablet Take 1 tablet by mouth Daily. 90 tablet 3 metFORMIN ER (GLUCOPHAGE-XR) 750 MG 24 hr tablet Take 2 tablets by mouth Daily With Breakfast. 180 tablet 3 Multiple Vitamins-Minerals (ICAPS AREDS 2 PO) Take by mouth. NON FORMULARY Smooth Move Tea QHS Omeprazole 20 MG Tablet Delayed Release Dispersible Take 2 tablets by mouth Daily. pioglitazone (ACTOS) 30 MG tablet Take 1 tablet by mouth Daily. 90 tablet 3 No current facility-administered medications on file prior to visit. Allergies Allergen Reactions Linzess [Linaclotide] Diarrhea Lipitor [Atorvastatin] Lipitor TABS Review of Systems Constitutional: Negative. HENT: Negative. Eyes: Negative. Respiratory: Negative. Cardiovascular: Negative. Gastrointestinal: Negative. Endocrine: Negative. Genitourinary: Negative. Musculoskeletal: Positive for arthralgias. Skin: Negative. Allergic/Immunologic: Negative. Neurological: Negative. Hematological: Negative. Psychiatric/Behavioral: Negative. The patient's Review of Systems was personally reviewed and confirmed as accurate. The following portions of the patient's history were reviewed and updated as appropriate: allergies, current medications, past family history, past medical history, past social history, past surgicalhistory, and problem list. Physical Exam Blood pressure 134/72, height 167.7 cm (66.02 ), weight 62.7 kg (138 lb 3.2 oz), not currently . Body mass index is 22.29 kg/m??. GENERAL APPEARANCE: awake, alert & oriented x 3, in no acute distress and well developed, well nourished PSYCH: normal affect LUNGS: breathing nonlabored EYES: sclera anicteric CARDIOVASCULAR: palpable dorsalis pedis, palpable posterior tibial bilaterally. Capillary refill less than 2 seconds EXTREMITIES: no clubbing, cyanosis GAIT: Antalgic Right Hip Exam: RANGE OF MOTION: FLEXION CONTRACTURE: None FLEXION: 110 degrees INTERNAL ROTATION: 20 degrees at 90 degrees of flexion EXTERNAL ROTATION: 40 degrees at 90 degrees of flexion PAIN WITH HIP MOTION: no PAIN WITH LOGROLL: no STINCHFIELD TEST: negative KNEE EXAM: full knee ROM (0-120 degrees), stable to varus and valgus stress at terminal extension and 30 degrees flexion STRENGTH: 5/5 hip adduction, abduction, flexion. 5/5 strength knee flexion, extension. 5/5 strength ankle dorsiflexion and plantarflexion. GREATER TROCHANTER BURSAL PAIN: no REFLEXES: PATELLAR 2+/4 ACHILLES 2+/4 CLONUS: negative STRAIGHT LEG TEST: negative SENSATION TO LIGHT TOUCH: DEEP PERONEAL/SUPERFICIAL PERONEAL/SURAL/SAPHENOUS/TIBIAL: intact EDEMA: no ERYTHEMA: no WOUNDS/INCISIONS: no overlying skin problems. Left Hip Exam: RANGE OF MOTION: FLEXION CONTRACTURE: 10 degree FLEXION: 90 degrees INTERNAL ROTATION: -5 degrees at 90 degrees of flexion EXTERNAL ROTATION: 15 degrees at 90 degrees of flexion PAIN WITH HIP MOTION: yes PAIN WITH LOGROLL: yes STINCHFIELD TEST: positive KNEE EXAM: full knee ROM (0-120 degrees), stable to varus and valgus stress at terminal extension and 30 degrees flexion STRENGTH: 4/5 hip adduction, abduction, flexion. 5/5 knee flexion, extension. 5/5 ankle dorsiflexion and plantarflexion. GREATER TROCHANTER BURSAL PAIN: yes REFLEXES: PATELLAR 2+/4 ACHILLES 2+/4 CLONUS: no STRAIGHT LEG TEST: negative SENSATION TO LIGHT TOUCH: DEEP PERONEAL/SUPERFICIAL PERONEAL/SURAL/SAPHENOUS/TIBIAL: intact EDEMA: no ERYTHEMA: no WOUNDS/INCISIONS: no LEG LENGTHS: left leg shorter RADIOGRAPHIC FINDINGS: Indication: Left hip pain Comparison: Todays xrays were compared to previous xrays from 02/15/2023 outside films AP pelvis, hip 2 views: Right: moderate joint space narrowing, there are marginal osteophytes visualized at the femoral head-neck junction and acetabular margins and No significant changes compared to prior radiographs.; Left: Radiographs demonstrate severe arthritic changes with subchondral collapse of the femoral head and fknl-po-gsat articulation. There is sclerotic appearance of the intertrochanteric regions with mottled appearance of bone concerning for possible neoplasm versus osteomyelitis. Outside MRI from 05/25/2023 was personally interpreted. MRI demonstrates severe degenerative changeswith significant soft tissue edema adjacent to the hip joint. There is a mottled appearance of the metadiaphyseal region of the hip. Assessment/Plan: Diagnosis Plan 1. Lytic bone lesion of hip Ambulatory Referral to Orthopedic Surgery 2. Left hip pain XR Hip With or Without Pelvis 2 - 3 View Left 3. Primary osteoarthritis of left hip Ambulatory Referral to Orthopedic Surgery I discussed with patient given her rapid progression of arthritic changes as well as abnormal appearance of the bone on both plain films and MRI, I am concerned about neoplasm versus septic arthritisas a source of her rapid degenerative hip joint. Given her advanced age and multiple medical comorbi dities, as well as concern for neoplasm I recommend referral to the [facility] for further evaluation and treatment for her hip pain. She will likely require biopsy versus aspiration of the hip joint. I will refer to Dr. Bustillos for further evaluation. She will follow-up with me as needed. Freedom Huffman MD 06/12/23 13:44 EST documented in this encounter Plan of Treatment Upcoming Encounters Date Type Department Care Team (Late st Contact Info) Description 06/09/2024 3:00 PM EST Office Visit [facility] [address] [place] [phone] Betsy Smith MD [address] [place], [place] [id number] documented as of this encounter Procedures Procedure Name Priority Date/Time Associated Diagnosis Comments XR HIP W OR WO PELVIS 2-3 VIEW LEFT Routine 06/12/2023 1:13 PM EST Left hip pain documented in this encounter Results * XR Hip With or Without Pelvis 2 - 3 View Left (06/12/2023 1:13 PM EST) Anatomical Region Laterality Modality Lower Extremities, Hip Left Xray Narrative 06/12/2023 1:44 PM EST Indication: Left hip pain Comparison: Todays xrays were compared to previous xrays from 02/15/2023 outside films AP pelvis, hip 2 views: Right: moderate joint space narrowing, ??there are marginal osteophytes visualized at the femoral head-neck junction and acetabular margins and No significant changes compared to prior radiographs.; Left: Radiographs demonstrate severe arthritic changes with subchondral collapse of the femoral head and ugnl-rd-wycn articulation. ?? There is sclerotic appearance of the intertrochanteric regions with mottled appearance of bone concerning for possible neoplasm versus osteomyelitis. us Freedom Huffman MD [facility] Final Result documented in this encounter Visit Diagnoses Diagnosis Lytic bone lesion of hip- Primary Left hip pain Pain in joint, pelvic region and thigh Primary osteoarthritis of left hip documented in this encounter Additional Health Concerns Assessment Noted Time PHQ-2 Depression Total Score: 6 01/30/20 24 10:41 AM EST documented as of this encounter Care Teams Clinical Application Manager Relationship Specialty Start Date End Date Betsy Smith MD [address] [place] [address] PCP - General 02/08/15 documented as of this encounter
--- OUTSIDE RECORDS SUMMARY | 2024-03-25 02:48 | XMS_ITS | Encounter Summary ---
Author Organization [facility] ystem Address [address] [place] [address] Care Team Providers Care Various Exceptionalities Teacher Name Role Phone Betsy Smith MD Primary Care Provider [phone] Reason for Visit * Reason Onset Date Comments Results 09/13/2023 hyponatremia 09/13/2023 Encounter Details Date Type Department Care Team (Late st Contact Info) Description 09/13/2023 Telephone [facility] MEDIC[facility] [address] [place] [address] Betsy Smith MD [address] [place] [address] Results; hyponatremia Social History Tobacco Use Types Packs/Day Years [...] 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 Patient had labs drawn today at [facility]. * Telephone Encounter - Betsy Smith MD - 09/17/2023 4:09 PM EDT Did she get another BMP today as recommended? Not all the previous test results are back but it looks like she was dehydrated. Hopefully she is drinking 1.5L water daily as recommended and the follow-up BMP is improved. If she did not get it today, please get it stat tomorrow. * Telephone Encounter - Hien Ardon RegSched Rep - 09/17/2023 1:42 PM EDT SHAYLEE, SUSHMA'S DAUGHTER, CALLED AND WANTED TO GO OVER LAB RESULTS. PLEASE CALL HER BACK AT [phone], SHE IS HEADING INTO WORK UNTIL 10:30PM SO IT MIGHT BE DIFFICULT TO REACH HER. * Telephone Encounter - Rupa Humphries RegSched Rep - 09/17/2023 10:00 AM EDT Name: Shaylee Weaver Relationship: Emergency Contact Best Callback Number: [phone] HUB PROVIDED THE RELAY MESSAGE FROM THE OFFICE PATIENT VOICED UNDERSTANDING AND HAS NO FURTHER QUESTIONS AT THIS TIME ADDITIONAL INFORMATION: * Telephone Encounter - Christy Lema - 09/14/2023 5:22 PM EDT Called and left VM for pt with provider's note. OK for HUB to relay provider's message below: Dr Betsy Smith: Pls have her repeat BMP on Sunday (Escribed stat, external) * Telephone Encounter - Betsy Smith MD - 09/14/2023 5:04 PM EDT Na improved at 133. Since only drinking 1-2 bottles of water, will increased to 1.5L per day. Repeat BMP on Sunday (Escribed) * Telephone Encounter - Maye Salazar MA - 09/14/2023 4:40 PM EDT Spoke with Shaylee and advised the sodium level is better, advised to aim for 1.5 L daily of water * Telephone Encounter - Charlene Patino MA - 09/14/2023 2:49 PM EDT Please advise * Telephone Encounter - Christina Baldwin RegSched Rep - 09/14/2023 1:48 PM EDT Patient's daughter is calling again because she states patient was hospitalized back in May with low sodium. She would like to know if the patient needs to go tot [facility] this weekend to receive fluids before she has surgery on Sunday. * Telephone Encounter - Maye Salazar MA - 09/14/2023 1:36 PM EDT Lvm for Shaylee to return call * Telephone Encounter - Pamela Graham RegSched Rep - 09/14/2023 12:24 PM EDT Hub staff attempted to follow warm transfer process and was unsuccessful Caller: Shaylee Weaver Relationship to patient: Emergency Contact Best call back number: [phone] Patient is needing: CALL BACK FROM [facility] * Telephone Encounter - Maye Salazar MA - 09/14/2023 8:19 AM EDT Spoke with patient's daughter and advised of stat labs that need to be done today * Telephone Encounter - Maye Salazar MA - 09/14/2023 7:45 AM EDT Lvm for Jossie to return call as well as patient, patient will need repeat labs for her sodium Grady have faxed labs to [facility] lab. * Telephone Encounter - Betsy Smith MD - 09/14/2023 12:46 AM EDT Sodium level even lower now at 127. Needs stat BMP with serum osm and urine osm; this will be blood and urine tests that need to be done at the same time. Does not need to be fasting. Pls fax lab requests to [facility] (should be on the printer as I labeled them external ) * Telephone Encounter - Sergio Woods RegSched Rep - 09/13/2023 11:02 AM EDT Name: Shaylee Weaver Relationship: Emergency Contact Best Callback Number: [phone] [facility] PROVIDED THE RELAY MESSAGE FROM THE OFFICE PATIENT: VOICED UNDERSTANDING AND HAS NO FURTHER QUESTIONS AT THIS TIME ADDITIONAL INFORMATION: * Telephone Encounter - Nikunj Chase MA - 09/13/2023 10:53 AM EDT LVM to return call to office # [phone] FOR HUB: Please inform daughter that results have not yet been received. If these were drawn yesterday, they may not be resulted. Once received and reviewed by PCP, we will reach out with recommendations re: results. * Telephone Encounter - Phi León RegSched Rep - 09/13/2023 10:39 AM EDT Caller: Shaylee Weaver Relationship: Emergency Contact Best call back number: [phone] Caller requesting test results: SHAYLEE WEAVER What test was performed: BLOOD WORK When was the test performed: 09/12/23 Where was the test performed: [facility] Additional notes: PLEASE CALL BACK WITH THE RESULTS. documented in this encounter Plan of Treatment Upcoming Encounters Date Type Department Care Team (Late st Contact Info) Description 06/09/2024 3:00 PM EST Office Visit [facility] MEDICINE [address] [place] [phone] Betsy Smith MD [address] [place] [address] Scheduled Orders Name Type Priority Associated Diagnoses Orde r Schedule Basic Metabolic Panel Lab STAT Hyponatremia Expected: 05/01/2024 (Approximate) Osmolality, Serum Lab STAT Hyponatremia Expected: 06/05/2024 (Approximate) Osmolality, Urine - Urine, Clean Catch Lab Routine Hyponatremia Expected: 07/31/2024 (Approximate) Basic Metabolic Panel Lab STAT Hyponatremia Expected: 04/29/2024 (Approximate) documented as of this encounter Visit Diagnoses Diagnosis Hyponatremia- Primary Hyposmolality and/or hyponatremia documented in this encounter Additional Health Concerns Assessment Noted Time PHQ-2 Depression Total Score: 2 08/31/19 12:00 PM EDT documented as of this encounter Care Teams Various Exceptionalities Teacher Relationship Specialty Start Date End Date eBtsy Smith MD [address] [place] [address] PCP - General 02/08/15 documented as of this encounter
--- OUTSIDE RECORDS SUMMARY | 2024-03-25 02:48 | XMS_ITS | Encounter Summary ---
Author Organization [facility] ystem Address [address] [place] [address] Care Team Providers Care Outside Sales Representative Name Role Phone Betsy Smith MD Primary Care Provider [phone] Reason for Visit * Reason Onset Date Comments PAPERWORK REQUEST 06/29/2023 Encounter Details Date Type Department Care Team (Late st Contact Info) Description 06/29/2023 Telephone [facility] MEDIC[facility] [address] [place] [phone] [place] [address] [place] [address] PAPERWORK REQUEST Social History Tobacco Use Types Packs/Day Years [...] e 02/12/2023 Family and Community Support Answer Tristno e Recorded Help with Day-to-Day Activities Not [...] 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 Not on le documented as of this encounter Miscellaneous Notes * Telephone Encounter - Amy Cortez MA - 06/29/2023 3:38 PM EST Faxed ov note to [employer] at [phone] * Telephone Encounter - Celia Lebron RegSched Rep - 06/29/2023 2:59 PM EST Caller: MANUELA Relationship: Other Best call back number: [phone] What form or medical record are you requesting: APPOINTMENT NOTES FROM APPPOINTMENT THAT DOCUMENT THE NEED FOR THE WHEELCHAIR Who is requesting this form or medical record from you: [employer] How would you like to receive the form or medical records (pick-up, mail, fax): FAX If fax, what is the fax number: [phone] Timeframe paperwork needed: ANYTIME documented in this encounter Plan of Treatment Upcoming Encounters Date Type Department Care Team (Late st Contact Info) Description 06/09/2024 3:00 PM EST Office Visit [facility] [address] [place] [phone] Betsy Smith MD [address] [place] [phone] documented as of this encounter Visit Diagnoses Not on filedocumented in this encounter Additional Health Concerns Assessment Noted Time PHQ-2 Depression Total Score: 6 06/05/19 24 10:41 AM EST documented as of this encounter Care Teams Outside Sales Representative Relationship Specialty Start Date End Date Betsy Smith MD [address] [place] [address] PCP - General 02/08/15 documented as of this encounter
--- OUTSIDE RECORDS SUMMARY | 2024-03-25 02:48 | XMS_ITS | Encounter Summary ---
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 Not on [facility] documented as of this encounter Plan of Treatment Upcoming Encounters Date Type Department Care Team (Late st Contact Info) Description 06/09/2024 3:00 PM EST Office Visit [facility] INTERNAL MEDICINE [address] [place] [address] Betsy Smith MD [address] [place] [address] documented as of this encounter Procedures Procedure Name Priority Date/Time Associated Diagnosis Comments CBC WITH AUTO DIFFERENTIAL Routine 10/18/2023 1:16 PM EDT Normocytic anemia CBC AND DIFFERENTIAL Routine 10/18/2023 1:16 PM EDT Normocytic anemia MAGNESIUM Routine 10/18/2023 1:16 PM EDT Hypomagnesemia BASIC METABOLIC PANEL Routine 10/18/2023 1:16 PM EDT Hyponatremia Hyperkalemia documented in this encounter Results * (ABNORMAL) CBC Auto Differential (10/18/2023 1:16 PM EDT) WBC 6.18 3.40 - 10.80 10*3/mm3 10/18/2023 10:28 PM [facility] RBC 3.51(L) 3.77 - 5.28 10*6/mm3 10/18/2023 10:28 PM [facility] Hemoglobin 9.3(L) 12.0 - 15.9 g/dL 10/18/2023 10:28 PM [facility] Hematocrit 29.7(L) 34.0 - 46.6 % 10/18/2023 10:28 PM [facility] MCV 84.6 79.0 - 97.0 fL 10/18/2023 10:28 PM [facility] MCH 26.5(L) 26.6 - 33.0 pg 10/18/2023 10:28 PM [facility] MCHC 31.3(L) 31.5 - 35.7 g/dL 10/18/2023 10:28 PM [facility] RDW 14.7 12.3 - 15.4 % 10/18/2023 10:28 PM [facility] RDW-SD 45.2 37.0 - 54.0 fl 10/18/2023 10:28 PM [facility] MPV 9.5 6.0 - 12.0 fL 10/18/2023 10:28 PM [facility] Platelets 493(H) 140 - 450 10*3/mm3 10/18/2023 10:28 PM [facility] Neutrophil % 69.6 42.7 - 76.0 % 10/18/2023 10:28 PM [facility] Lymphocyte % 16.2(L) 19.6 - 45.3 % 10/18/2023 10:28 PM [facility] Monocyte % 11.3 5.0 - 12.0 % 10/18/2023 10:28 PM [facility] Eosinophil % 1.9 0.3 - 6.2 % 10/18/2023 10:28 PM [facility] Basophil % 0.8 0.0 - 1.5 % 10/18/2023 10:28 PM EDT [facility] Immature Grans % 0.2 0.0 - 0.5 % 10/18/2023 10:28 PM EDT [facility] Neutrophils, Absolute 4.30 1.70 - 7.00 10*3/mm3 10/18/2023 10:28 PM EDT [facility] Lymphocytes, Absolute 1.00 0.70 - 3.10 10*3/mm3 10/18/2023 10:28 PM EDT [facility] Monocytes, Absolute 0.70 0.10 - 0.90 10*3/mm3 10/18/2023 10:28 PM EDT [facility] Eosinophils, Absolute 0.12 0.00 - 0.40 10*3/mm3 10/18/2023 10:28 PM EDT [facility] Basophils, Absolute 0.05 0.00 - 0.20 10*3/mm3 10/18/2023 10:28 PM EDT [facility] Immature Grans, Absolute 0.01 0.00 - 0.05 10*3/mm3 10/18/2023 10:28 PM EDT [facility] nRBC 0.0 0.0 - 0.2 /100 WBC 10/18/2023 10:28 PM EDT [facility] Blood Venipuncture / Unknown 10/18/2023 1:16 PM EDT 10/18/2023 1:16 PM EDT us Betsy Smith MD LAB BLOOD ORDERABLES Final Resul t [facility]
[address] [place] [address], * Magnesium (10/18/2023 1:16 PM EDT) Magnesium 2.4 1.6 - 2.4 mg/dL 10/18/2023 11:37 PM EDT [facility] Blood Venipuncture / Unknown 10/18/2023 1:16 PM EDT 10/18/2023 1:16 PM EDT Betsy Smith MD LAB BLOOD ORDERABLES Final Resul t [facility]
[address] [place] [address], * (ABNORMAL) Basic Metabolic Panel (10/18/2023 1:16 PM EDT) Glucose 83 65 - 99 mg/dL 10/18/2023 11:55 PM EDT [facility] BUN 21 8 - 23 mg/dL 10/18/2023 11:55 PM EDT [facility] Creatinine 0.87 0.57 - 1.00 mg/dL 10/18/2023 11:55 PM EDT [facility] Sodium 132(L) 136 - 145 mmol/L 10/18/2023 11:55 PM EDT [facility] Potassium 4.7 3.5 - 5.2 mmol/L 10/18/2023 11:55 PM EDT [facility] Chloride 98 98 - 107 mmol/L 10/18/2023 11:55 PM EDT [facility] CO2 24.0 22.0 - 29.0 mmol/L 10/18/2023 11:55 PM EDT [facility] Calcium 9.3 8.6 - 10.5 mg/dL 10/18/2023 11:55 PM EDT [facility] BUN/Creatinine Ratio 24.1 7.0 - 25.0 10/18/2023 11:55 PM EDT [facility] Anion Gap 10.0 5.0 - 15.0 mmol/L 10/18/2023 11:55 PM EDT [facility] eGFR 65.0 >60.0 mL/min/1.7 3 10/18/2023 11:55 PM EDT [facility] Blood Venipuncture / Unknown 10/18/2023 1:16 PM EDT 10/18/2023 1:16 PM EDT Narrative [facility] - 10/18/2023 11:55 PM EDT GFR Normal >60 Chronic Kidney Disease <60 Kidney Failure <15 The GFR formula is only valid for adults with stable renal function between ages 18 and 70. us Betsy Smith MD LAB BLOOD ORDERABLES Final Resul t [facility]
[address] [place] [address], documented in this encounter Visit Diagnoses Diagnosis Normocytic anemia Unspecified anemia Hyponatremia Hyposmolality and/or hyponatremia Hyperkalemia Hyperpotassemia Hypomagnesemia Disorders of magnesium metabolism documented in this encounter Additional Health Concerns Assessment Noted Time PHQ-2 Depression Total Score: 2 08/31/19 24 12:00 PM EDT documented as of this encounter Care Teams Mass Spectrometry Manager Relationship Specialty Start Date End Date Betsy Smith MD [address] [place] [address] PCP - General 02/08/15 documented as of this encounter
--- OUTSIDE RECORDS SUMMARY | 2024-03-25 02:48 | XMS_ITS | Encounter Summary ---
Author Organization [facility] yste Address [address] [place] [address] Care Team Providers Care Supervisor Respiratory Name Role Phone Betsy Smith MD Primary Care Provider [phone] Reason for Visit * Reason Onset Date Comments PATIENT CALL 07/03/2023 Encounter Details Date Type Department Care Team (Late st Contact Info) Description 07/03/2023 Telephone [facility] INTERNAL MEDICINE [address] [place] [phone] [place] [address] [place] [address] PATIENT CALL Social History Tobacco Use Types Packs/Day Years [...] 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 THE ONE THAT THEY HAVE NOW IS BORROWED FROM A FRIEND AND NEEDS TO BE RETURNED. * Telephone Encounter - Celia Lebron RegSched Rep - 07/03/2023 11:16 AM EST Provider: DR SMITH Caller: DELANEY PERALES Relationship to Patient: SON Reason for Call: THE PATIENT'S SON NEEDS THE PRESCRIPTION FOR THE WHEELCHAIR TO STATE THAT THIS IS FOR INDOOR USE. THE ONE THAT THEY HAVE NOW IS BORROWED FROM A FRIEND AND NEEDS TO BE RETURNED. documented in this encounter Plan of Treatment Upcoming Encounters Date Type Department Care Team (Late st Contact Info) Description 06/09/2024 3:00 PM EST Office Visit [facility] INTERNAL MEDICINE [address] [place] [phone] Betsy Smith MD [address] [place] [phone] documented as of this encounter Visit Diagnoses Not on filedocumented in this encounter Additional Health Concerns Assessment Noted Time PHQ-2 Depression Total Score: 6 06/05/19 24 10:41 AM EST documented as of this encounter Care Teams Supervisor Respiratory Relationship Specialty Start Date End Date Betsy Smith MD [address] [place] [id number] PCP - General 02/08/15 documented as of this encounter
--- OUTSIDE RECORDS SUMMARY | 2024-03-25 02:48 | XMS_ITS | Encounter Summary ---
Author Organization [facility] yste Address [address] [place] [address] Care Team Providers Care Cook Pressure Name Role Phone Betsy Smith MD Primary Care Provider [phone] Reason for Visit * Reason Onset Date Comments Med Refill 06/19/2023 Encounter Details Date Type Department Care Team (Late st Contact Info) Description 06/19/2023 Refill [facility] INTERNAL MEDICINE [address] [place] [phone] [place] [address] [place] [address] Hypertension; Hyperlipidemia Social History Tobacco Use Types [...] 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 ezetimibe (Zetia) 10 MG tablet 90 tablet 3 Sig: Take 1 tablet by mouth Daily. Pharmacy where request should be sent: [facility] [place] [facility] - [phone] - [phone] FX Last office visit with prescribing clinician: 06/05/2023 Last telemedicine visit with prescribing clinician: Visit date not found Next office visit with prescribing clinician: 08/31/2023 Does the patient have less than a 3 day supply: [x] Yes [] No Would you like a call back once the refill request has been completed: [] Yes [x] No If the office needs to give you a call back, can they leave a voicemail: [] Yes [x] No Jackson Ramírez Rep 06/19/23 12:12 EST documented in this encounter Plan of Treatment Upcoming Encounters Date Type Department Care Team (Late st Contact Info) Description 06/09/2024 3:00 PM EST Office Visit [facility] INTERNAL MEDICINE [address] [place] [phone] Betsy Smith MD [address] [place] [phone] documented as of this encounter Visit Diagnoses Diagnosis Hypertension Unspecified essential hypertension Hyperlipidemia Pure hypercholesterolemia documented in this encounter Additional Health Concerns Assessment Noted Time PHQ-2 Depression Total Score: 6 06/05/19 24 10:41 AM EST documented as of this encounter Care Teams Cook Pressure Relationship Specialty Start Date End Date Betsy Smith MD [address] [place] [id number] PCP - General 02/08/15 documented as of this encounter
--- OUTSIDE RECORDS SUMMARY | 2024-03-25 02:48 | XMS_ITS | Encounter Summary ---
Author Organization [facility] ystem Address [address] [place] [address] Care Team Providers Care Mortgage Loan Officer Originator Name Role Phone Betsy Smith MD Primary Care Provider [phone] Reason for Visit * Reason Comments Mild Cognitive Impairment Hyponatremia Hypertension Encounter Details Date Type Department Care Team (Late st Contact Info) Description 01/18/2024 2:30 PM EDT Office Visit [facility] INTERNAL MEDICINE [address] [place] [phone] [place] [address] [place] [address] Hypertension (Primary Dx); Hyponatremia; Overflow incontinence of urine; Constipation; Mild cognitive impairment; Vaccine counseling; Need for influenza vaccination; Need for COVID-19 vaccine; Sensorineural hearing loss (SNHL) of both ears; Stage 3a chronic kidney disease Social History Tobacco Use Types Packs/Day Years [...] Sign Reading Time Taken Comments Blood Pressure 136/62 01/18/2024 3:20 PM EDT Pulse 80 01/18/2024 2:32 PM EDT Temperature - - Respiratory Rate - - Oxygen Saturation 98% 01/18/2024 2:32 PM EDT Inhaled Oxygen Concentration - - Weight 64.4 kg (142 lb) 01/18/2024 2:32 PM EDT Height 167.6 cm (5' 6 ) 01/18/2024 2:32 PM EDT Body Mass Index 22.92 01/18/2024 2:32 PM EDT documented in this encounter Progress Notes * Betsy Smith MD - 01/19/2024 1:16 AM EDTAssociated Problem(s): CKD (chronic kidney disease), stage III Update BMP; ADDENDUM: improved Na 138 but worsened renal function with Cfr 1.04, GFR 52.5; pt reports decr'd water intake d/t incontinence * Betsy Smith MD - 01/19/2024 12:45 AM EDTAssociated Problem(s): Sensorineural hearing loss (SNHL) of both ears Commended patient on getting hearing evaluated; awaiting hearing aids; reviewed relationship between hearing loss and dementia * Betsy Smith MD - 01/19/2024 12:38 AM EDTAssociated Problem(s): Overflow incontinence of urine Rec scheduled bathroom breaks while awake; rec Kegel exercises - reviewed correct exercise; rec limiting caffeinated beverages and those with diuretic effect; she will decrease coffee to 1 cup decaf in AM' reviewed med options, goals, side effects, and risks; patient will proceed with oxybutynin XL10mg QD #30, 1RF * Betsy Smith MD - 01/19/2024 12:36 AM EDTAssociated Problem(s): Constipation Rec fiber supplement QD and increasing daily water intake; if still with constipation, then rec adding Miralax 1 cup QD; discussed also addition of oxybutynin could exacerbate constipation * Betsy Smith MD - 01/18/2024 2:30 PM EDT Chief Complaint Patient presents with Mild Cognitive Impairment Hyponatremia Hypertension History of Present Illness 88 y.o. female, accompanied by friend Alexa, presents for f/u on BP, memory, and low sodium. Still with some memory deficits but feels like she is still getting better. No longer on metformin for DM. Repeats getting hearing checked and hearing aids have been ordered. Not regularly checking BPs. Complains of urin incontinence and frequency. Reports baseline constipation, not going very often, denies hard stools. Patient also brings [place] paperwork for her son Maycol Peralse, felt hat steamer at [employer]), so he can bring her to appts. Review of Systems Denies CP, SOB, falls. Takes melatonin only as needed, not scheduled. ROS (+) for chronic constipation, slow stools. ROS (+) for urin incontinence. All other ROS reviewed and negative. Current Outpatient Medications: acetaminophen (TYLENOL) 500 MGprn alendronate 70 MG weekly Ca Phosphate-Cholecalciferol BID cholecalciferol (VITAMIN D3) 1000 units QD ezetimibe 10 MG QD fexofenadine 180 MG QD Melatonin 3 MG QHS prn ICAPS AREDS 2 QD omeprazole 20 MG QD VITALS: BP 136/62 Pulse 80 Ht 167.6 cm (66 ) Wt 64.4 kg (142 lb) SpO2 98% BMI 22.92 kg/m?? Physical Exam Vitals and nursing note [...] nRBC 0.0 0.0 - 0.2 /100 WBC 11/12/23 A1C 5.5 10/18/23 Na 132 ASSESSMENT/PLAN Diagnoses and all orders for this visit: 1. Hypertension (Primary) Assessment & Plan: BP elevated/abnormal, improved/bord on repeat; remains on no meds; needs to check home BPs and bring BP cuff to f/u 2. Hyponatremia Assessment & Plan: F/u BMP Orders: - Basic Metabolic Panel; Future 3. Overflow incontinence of urine Assessment & Plan: Rec scheduled bathroom breaks while awake; rec Kegel exercises - reviewed correct exercise; rec limiting caffeinated beverages and those with diuretic effect; she will decrease coffee to 1 cup decaf in AM' reviewed med options, goals, side effects, and risks; patient will proceed with oxybutynin XL10mg QD #30, 1RF Orders: - oxybutynin XL (DITROPAN-XL) 10 MG 24 hr tablet; Take 1 tablet by mouth Daily. Dispense: 30 tablet; Refill: 1 4. Constipation Assessment & Plan: Rec fiber supplement QD and increasing daily water intake; if still with constipation, then rec adding Miralax 1 cup QD; discussed also addition of oxybutynin could exacerbate constipation 5. Mild cognitive impairment Assessment & Plan: F/u in 4 wks with updated MMSE; improved from pre-surgery state but not back to baseline; discussedmemory meds at that time if indicated 6. Vaccine counseling Comments: rec flu vacc and COVID19 vacc (both given today) 7. Need for influenza vaccination - Fluzone High-Dose 65+yrs 8. Need for COVID-19 vaccine - COVID-19 F23 (Pfizer) 12yrs+ (COMIRNATY) 9. Sensorineural hearing loss (SNHL) of both ears Assessment & Plan: Commended patient on getting hearing evaluated; awaiting hearing aids; reviewed relationship between hearing loss and dementia Time Documentation Counseled patient and friend Alexa I spent 26 minutes face to face and 15 minutes non-face to face on today's office visit. Time was spent reviewing patient's previous notes, lab results, test results, vitals, and/or other records as well as examining the patient, ordering tests/medicines/procedures, providing counseling, coordinating care, answering questions, discussing evaluation and treatment plans, and writing this note. Total time: 41 minutes (Level 5 40 minutes) FOLLOW-UP Health maintenance - rec flu vacc and COVID19 vacc, counseling given (both given today); RSV vacc completed FMLA paperwork completed for son Maycol Perales to be able to bring her to [facility] RTC 1 month for f/u on BP and memory (MMSE) Electronically signed by: Betsy Smith MD, FACP 01/18/2024 * Betsy Smith MD - 01/18/2024 1:17 AM EDTAssociated Problem(s): Mild cognitive impairment F/u in 4 wks with updated MMSE; improved from pre-surgery state but not back to baseline; discussedmemory meds at that time if indicated * Betsy Smith MD - 01/18/2024 1:16 AM EDTAssociated Problem(s): Hypertension BP elevated/abnormal, improved/bord on repeat; remains on no meds; needs to check home BPs and bring BP cuff to f/u * Betsy Smith MD - 01/18/2024 1:15 AM EDTAssociated Problem(s): Hyponatremia F/u BMP; ADDENDUM: Na 138 documented in this encounter Plan of Treatment Upcoming Encounters Date Type Department Care Team (Late st Contact Info) Description 06/09/2024 3:00 PM EST Office Visit [facility] INTERNAL MEDICINE [address] [place] [phone] Betsy Smith MD [address] [place] [phone] documented as of this encounter Results * (ABNORMAL) Basic Metabolic Panel (01/18/2024 3:41 PM EDT) Glucose 101(H) 65 - 99 mg/dL 01/18/2024 11:47 PM EDT [facility] BUN 22 8 - 23 mg/dL 01/18/2024 11:47 PM EDT [facility] Creatinine 1.04(H) 0.57 - 1.00 mg/dL 01/18/2024 11:47 PM EDT [facility] Sodium 138 136 - 145 mmol/L 01/18/2024 11:47 PM EDT [facility] Potassium 4.8 3.5 - 5.2 mmol/L 01/18/2024 11:47 PM EDT [facility] Comment:Slight hemolysis det ected by analyzer. Result may be falsely elevated. Chloride 101 98 - 107 mmol/L 01/18/2024 11:47 PM EDT [facility] CO2 25.5 22.0 - 29.0 mmol/L 01/18/2024 11:47 PM EDT [facility] Calcium 11.5(H) 8.6 - 10.5 mg/dL 01/18/2024 11:47 PM EDT [facility] BUN/Creatinine Ratio 21.2 7.0 - 25.0 01/18/2024 11:47 PM EDT [facility] Anion Gap 11.5 5.0 - 15.0 mmol/L 01/18/2024 11:47 PM EDT [facility] eGFR 52.5(L) >60.0 mL/min/1.7 3 01/18/2024 11:47 PM EDT [facility] Blood Venipuncture / Unknown 01/18/2024 3:41 PM EDT 01/18/2024 3:41 PM EDT Narrative [facility] - 01/18/2024 11:47 PM EDT GFR Normal >60 Chronic Kidney Disease <60 Kidney Failure <15 The GFR formula is only valid for adults with stable renal function between ages 18 and 70. us Betsy Smith MD LAB BLOOD ORDERABLES Final Resul t [facility]
[address] [place] [address], documented in this encounter Visit Diagnoses Diagnosis Hypertension- Primary Unspecified essential hypertension Hyponatremia Hyposmolality and/or hyponatremia Overflow incontinence of urine Overflow incontinence Constipation Unspecified constipation Mild cognitive impairment Mild cognitive impairment, so stated Vaccine counseling Need for influenza vaccination Need for prophylactic vaccination and inoculation against influenza Need for COVID-19 vaccine Sensorineural hearing loss (SNHL) of both ears Stage 3a chronic kidney disease documented in this encounter Additional Health Concerns Assessment Noted Time PHQ-2 Depression Total Score: 2 08/31/19 24 12:00 PM EDT documented as of this encounter Care Teams Mortgage Loan Officer Originator Relationship Specialty Start Date End Date Betsy Smith MD [address] [place] [address] PCP - General 02/08/15 documented as of this encounter
--- OUTSIDE RECORDS SUMMARY | 2024-03-25 02:48 | XMS_ITS | Encounter Summary ---
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 Not on file Not on le documented as of this encounter Plan of Treatment Upcoming Encounters Date Type Department Care Team (Late st Contact Info) Description 06/09/2024 3:00 PM EST Office Visit [facility] [address] [place] [phone] Betsy Smith MD [address] [place] [address] documented as of this encounter Procedures Procedure Name Priority Date/Time Associated Diagnosis Comments URINALYSIS, MICROSCOPIC ONLY Routine 06/29/2023 2:49 PM EST Medicare annual wellness visit, subsequent MICROALBUMIN / CREATININE URINE RATIO Routine 06/29/2023 2:49 PM EST Medicare annual wellness visit, subsequent URINALYSIS AND MICROSCOPIC Routine 06/29/2023 2:49 PM EST Medicare annual wellness visit, subsequent URINALYSIS WITHOUT MICROSCOPIC (NO CULTURE) Routine 06/29/2023 2:49 PM EST Medicare annual wellness visit, subsequent documented in this encounter Results * Urinalysis, Microscopic Only - Urine, Clean Catch (06/29/2023 2:49 PM EST) RBC, UA 0-2 None Seen, 0-2 /HPF 06/29/2023 11:58 PM [facility] WBC, UA 0-2 None Seen, 0-2 /HPF 06/29/2023 11:58 PM [facility] Bacteria, UA None Seen None Seen /HPF 06/29/2023 11:58 PM [facility] Squamous Epithelial Cells, UA 0-2 None Seen, 0-2 /HPF 06/29/2023 11:58 PM EST [facility] Transitional Epithelial Cells, UA 0-2 0 - 2 /HPF 06/29/2023 11:58 PM [facility] Hyaline Casts, UA None Seen None Seen /LPF 06/29/2023 11:58 PM [facility] Amorphous Crystals, UA Small/1+ None Seen /HPF 06/29/2023 11:58 PM [facility] Methodology Manual Light Microscopy 06/29/2023 11:58 PM [facility] Urine Urine specimen obtained by clean catch procedure / Unknown Collection / Unknown 06/29/2023 2:49 PM EST 06/29/2023 2:49 PM EST Betsy Smith MD URINE ORDERABLES Final Result [facility]
[address] [place] [address], * (ABNORMAL) Urinalysis without microscopic (no culture) - Urine, Clean Catch (06/29/2023 2:49 PM EST) Color, UA Dark Yellow(A) Yellow, Straw 06/29/2023 11:25 PM [facility] Appearance, UA Clear Clear 06/29/2023 11:25 PM [facility] pH, UA 6.0 5.0 - 8.0 06/29/2023 11:25 PM [facility] Specific [place], UA 1.023 1.005 - 1.030 06/29/2023 11:25 PM [facility] Glucose, UA Negative Negative 06/29/2023 11:25 PM [facility] Ketones, UA Trace(A) Negative 06/29/2023 11:25 PM [facility] Bilirubin, UA Negative Negative 06/29/2023 11:25 PM [facility] Blood, UA Negative Negative 06/29/2023 11:25 PM [facility] Protein, UA Trace(A) Negative 06/29/2023 11:25 PM [facility] Leuk Esterase, UA Negative Negative 06/29/2023 11:25 PM [facility] Nitrite, UA Negative Negative 06/29/2023 11:25 PM [facility] Urobilinogen, UA 1.0 E.U./dL 0.2 - 1.0 E.U./dL 06/29/2023 11:25 PM [facility] Urine Urine specimen obtained by clean catch procedure / Unknown Collection / Unknown 06/29/2023 2:49 PM EST 06/29/2023 2:49 PM EST Betsy Smith MD URINE ORDERABLES Final Result [facility]
[address] [place] [address], * Microalbumin / Creatinine Urine Ratio - Urine, Clean Catch (06/29/2023 2:49 PM EST) Microalbumin/C reatinine Ratio 20.0 0.0 - 29.0 mg/g 06/30/2023 12:55 AM EST [facility] Creatinine, Urine 155.2 mg/dL 06/30/2023 12:55 AM [facility] Microalbumin, Urine 3.1 mg/dL 06/30/2023 12:55 AM [facility] Urine Urine specimen obtained by clean catch procedure / Unknown Collection / Unknown 06/29/2023 2:49 PM EST 06/29/2023 2:49 PM EST us Betsy Smith MD URINE ORDERABLES Final Result [facility]
[address] [place] [address], documented in this encounter Visit Diagnoses Diagnosis Medicare annual wellness visit, subsequent documented in this encounter Additional Health Concerns Assessment Noted Time PHQ-2 Depression Total Score: 6 06/05/19 24 10:41 AM EST documented as of this encounter Care Teams Earth Mover Relationship Specialty Start Date End Date Betsy Smith MD [address] [place] [address] PCP - General 02/08/15 documented as of this encounter
--- OUTSIDE RECORDS SUMMARY | 2024-03-25 02:48 | XMS_ITS | Encounter Summary ---
Author Organization [facility] yste Address [address] [place] [address] Care Team Providers Care Slicing Machine Tender Name Role Phone Betsy Smith MD Primary Care Provider [phone] Reason for Visit * Reason Onset Date Comments Leg Swelling 10/10/2023 Encounter Details Date Type Department Care Team (Late st Contact Info) Description 10/10/[address] [facility] [address] [place] [phone] [place] [address] [place] [phone] Leg Swelling Social History Tobacco Use Types [...] encounter Miscellaneous Notes * Telephone Encounter - Usha Jimenez RegSched Rep - 10/10/2023 1:12 PM EDT Pt called back and said she received message and no longer needs Dr. Smith to call her. * Telephone Encounter - Betsy Smith MD - 10/10/2023 12:24 PM EDT I already addressed this in yesterday's message - I haven't seen her for hospital follow-up, therefore am unable to prescribe any new medications. Also in general, she will not be able to take any water pills because of her ongoing issue with lowsodium (water pills can also cause low sodium) Rec leg elevation, low sodium diet, and compression stockings for leg swelling * Telephone Encounter - Celia Lebron RegSched Rep - 10/10/2023 11:53 AM EDT Caller: Angella Tasneem Nica Relationship: Self Best call back number: [phone] What is the best time to reach you: ANYTIME Who are you requesting to speak with (clinical staff, provider, specific staff member): DR WILLIAM What was the call regarding: THE PATIENT WOULD LIKE TO DISCUSS THE NEED FOR A FLUID PILL. documented in this encounter Plan of Treatment Upcoming Encounters Date Type Department Care Team (Late st Contact Info) Description 06/09/2024 3:00 PM EST Office Visit [facility] [address] [place] [phone] Betsy Smith MD [address] [place] [address] documented as of this encounter Visit Diagnoses Not on filedocumented in this encounter Additional Health Concerns Assessment Noted Time PHQ-2 Depression Total Score: 2 08/31/19 24 12:00 PM EDT documented as of this encounter Care Teams Slicing Machine Tender Relationship Specialty Start Date End Date Betsy Smith MD [address] [place] [phone] PCP - General 02/08/15 documented as of this encounter
--- OUTSIDE RECORDS SUMMARY | 2024-03-25 02:49 | XMS_ITS | Encounter Summary ---
Author Organization [facility] Address [address] [place] [address] Care Team Providers Care Oracle Soa Developer Name Role Phone Betsy Smith MD Primary Care Provider [phone] Reason for Referral * MRI/CAT/PET Scan (Routine) - Closed Specialty Diagnoses / Procedures Referred By Contac t Referred To Contact Diagnoses Left hip pain Left leg pain Procedures MRI hip left wo contrast Isidro Artis MD [address] [place] [address] Phone: tel: fax: [facility] - OUTPT PHYSICAL THERAPY [address] [place] [address] Phone: tel: Referral ID Status Reason Start Date Expiration Date Visits Re quested Visits Authorized [id number] Closed 04/23/2023 04/22/2024 1 1 * Pain Management (Routine) - Closed Specialty Diagnoses / Procedures Referred By Contac t Referred To Contact Pain Medicine Diagnoses Left hip pain Left leg pain Procedures FL OFFICE/OUTPATIENT NEW MODERATE MDM 45-59 MINUTES Isidro Artis MD [address] [address] Phone: tel: fax: Steve Greenwood MD [address] [facility] [address] [place] [address] Phone: tel: fax: Referral ID Status Reason Start Date Expiration Date V isits Requested Visits Authorized [id number] Closed Specialty Services Required 04/23/2023 04/22/2024 1 1 Reason for Visit * Reason Comments Back Pain * Consultation (Routine) - Authorized Specialty Diagnoses / Procedures Referred By Contac t Referred To Contact Neurosurgery Diagnoses Spinal stenosis of lumbar region with neurogenic claudication Betsy Smith MD [address] [place] [address] Phone: tel: fax: [facility] [address] [facility] [address] [place] [address] Phone: tel: fax: Referral ID Status Reason Start Date Expiration Date Visits Requested Visits Authorized [id number] Authorized Specialty Services Required 3 04/04/2024 2 2 Encounter Details Date Type Department Care Team (Late st Contact Info) Description 04/23/2023 1:30 PM EST Office Visit [facility] [address] [facility] [address] [place] [address] Isidro Artis MD [address] [facility] [address] [place] [id number] Left hip pain (Primary Dx); Left leg pain Social History Tobacco Use Types Packs/Day Years Used Date Smoking Tobacco: Never Alcohol Use Standard Drinks/Week Comments Yes 0 (1 standard drink = 0.6 oz [...] file Preferred Language Not on file 02/12/2023 Comments No Sex and Gender Information Value Date Recorded Sex Assigned at Not on file Legal Sex Female 12:10 PM EDT Gender Identity Not on file Sexual Orientation Not on file 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 female seen for consultation today at the request of Betsy Smith MD History of Present Illness This is an 88-year-old woman who presents to my office with chief complaints of left hip and leg pain. Her symptoms started earlier this fall when she was trying to clean a large, heavy rug. She was carrying it back inside, lost her balance and fell, landing on top of her left leg. She states that her leg was folded underneath her that an odd angle. Since that time she has been struggling with persistent and severe left hip, buttock, and leg pain. She tried 4 sessions of physical therapy which seem to make her pain worse. She had an x-ray of her hip as well as an MRI of her lumbar spine. The MRI of her lumbar spine demonstrated severe, diffuse degenerative abnormalities which prompted referral to my clinic. She does have a remote history of some sort of a lumbar spine surgery but does not have any detailsabout this other than it was performed probably [facility] years ago at [facility]. The following portions of the patient's history were reviewed and updated as appropriate: allergies, current medications, past family history, past medical history, past social history, past surgicalhistory and problem list. Family history: Family History Problem Relation Age of Onset Diabetes Mother Kidney failure Mother Heart failure Father CHF Lung cancer Sister 52 nonsmoker; (+) secondhand smoke Breast cancer Maternal Grandmother unknown Ovarian cancer Neg Hx Colon cancer Neg Hx Social history: Social History Socioeconomic History Marital status: Tobacco Use Smoking status: Never Vaping Use Vaping Use: Never used Substance and Sexual Activity Alcohol use: Yes Comment: Social Review of Systems Objective Temperature 97.9 ??F (36.6 ??C), height 167.6 cm (66 ), weight 69.9 kg (154 lb 3.2 oz), not currently . Body mass index is 24.89 kg/m??. Physical Exam Constitutional: General: She is not in acute distress. Appearance: She is well-developed. She is not diaphoretic. Comments: Appears older than stated age. Ambulates with walker. Decreased hearing to conversationalspeech. HENT: Head: Normocephalic and atraumatic. Pulmonary: Effort: Pulmonary effort is normal. Musculoskeletal: Comments: Severely restricted range of motion of the left hip. Pain with external rotation of the left hip and tender to trochanteric bursa palpation. Skin: General: Skin is warm and dry. Neurological: Mental Status: She is alert and oriented to person, place, and time. Cranial Nerves: No cranial nerve deficit. Assessment & Plan Independent Review of Radiographic Studies: Available for my review is a MRI of the lumbar spine which was performed on 04/02/2023. There is multilevel degenerative disc disease with diffuse facet arthropathy. These changes are most notable atL3-4 and L4-5 where there is severe central canal and severe bilateral lateral recess stenosis. Medical Decision Making: This is an 88-year-old woman with lumbar stenosis, questionable neurogenic claudication/lumbosacralradiculopathy, and a subacute presentation of some left hip pain. I did review the pertinent anatomy with the aid of a three-dimensional model of the spine. I discussed risks and benefits of a lumbar decompression with her. Because of her age, prior surgery, and the diffuse nature of her degenerative changes, she is at somewhat high risk for surgical intervention. At this the fact that her pain appears to be primarily mechanical hip pain in nature, and she has not had an MRI of her hip yet. Have made a referral for pain management as well as arranged for an MRI of her left hip. I have given her a trial dose of gabapentin. I will follow-up with her after shehas undergone some pain management. Diagnoses and all orders for this visit: 1. Left hip pain (Primary) - Ambulatory Referral to Pain Management - MRI hip left wo contrast; Future - gabapentin (NEURONTIN) 300 MG capsule; Take 1 capsule by mouth 3 (Three) Times a Day. Dispense: 90 capsule; Refill: 0 2. Left leg pain - Ambulatory Referral to Pain Management - MRI hip left wo contrast; Future - gabapentin (NEURONTIN) 300 MG capsule; Take 1 capsule by mouth 3 (Three) Times a Day. Dispense: 90 capsule; Refill: 0 No follow-ups on file. This document signed by Gutierrez Artis MD April 23, 2023 13:53 EST documented in this encounter Plan of Treatment Upcoming Encounters Date Type Department Care Team (Late st Contact Info) Description 06/09/2024 3:00 PM EST Office Visit [facility] [address] [place] [phone] Betsy Smith MD [address] [place] [address] Scheduled Orders Name Type Priority Associated Diagnoses Orde r Schedule MRI hip left wo contrast Imaging Routine Left hip pain Left leg pain Expected: 04/28/2023, Expires: 04/23/2024 Scheduled Referrals Name Type Priority Associated Diagnoses Order Schedule Ambulatory Referral to Pain Management Outpatient Referral Routine Left hip pain Left leg pain Ordered: 04/23/2023 documented as of this encounter Procedures Procedure Name Priority Date/Time Associated Diagnosis Comments SCANNED - IMAGING 05/25/2023 documented in this encounter Results * SCANNED - IMAGING (05/25/2023) Anatomical Region Laterality Modality Radiographic Jennifer ging Isidro Artis MD IMG DIAGNOSTIC IMAGIN G ORDERABLES Final Result documented in this encounter Visit Diagnoses Diagnosis Left hip pain- Primary Pain in joint, pelvic region and thigh Left leg pain Pain in soft tissues of limb documented in this encounter Additional Health Concerns Assessment Noted Time PHQ-2 Depression Total Score: 2 03/24/20 22 2:18 PM EST documented as of this encounter Care Teams Oracle Soa Developer Relationship Specialty Start Date End Date Betsy Smith MD [address] [place] [address] PCP - General 02/08/15 documented as of this encounter
--- OUTSIDE RECORDS SUMMARY | 2024-03-25 02:49 | XMS_ITS | Encounter Summary ---
Author Organization [facility] Address [address] [place] [address] Care Team Providers Care Salon Designer Name Role Phone Betsy Smith MD Primary Care Provider [phone] Reason for Referral * Diagnostic Imaging (Routine) - Closed Specialty Diagnoses / Procedures Referred By Contac t Referred To Contact Radiology Diagnoses Menopause Age-related osteoporosis without current pathological fracture Procedures DEXA Bone Density Axial Betsy Smith MD [address] [place] [address] Phone: tel: fax: [address] [address] Phone: tel: Referral ID Status Reason Start Date Expiration Date Visits Re quested Visits Authorized [id number] Closed 09/22/2022 09/22/2023 1 1 Reason for Visit * Diagnostic Imaging (Routine) - Closed Specialty Diagnoses / Procedures Referred By Contac t Referred To Contact Radiology Diagnoses Menopause Age-related osteoporosis without current pathological fracture Procedures DEXA Bone Density Axial Betsy Smith MD [address] [place] [address] Phone: tel: fax: [address] [place] [address] Phone: tel: Referral ID Status Reason Start Date Expiration Date Visits Re quested Visits Authorized [id number] Closed 09/22/2022 09/22/2023 1 1 Encounter Details Date Type Department Care Team (Latest Contact Info) Description 11/16/2022 9:03 AM EDT - 11/16/2022 11:59 PM EDT Hospital Encounter [facility] DEXA [facility] [address] [place] [id number] Betsy Smith MD [address] [place] [address] Menopause; Osteoporosis Discharge Disposition: Home or Self Care Social History Tobacco Use Types Packs/Day Years Used Date Smoking Tobacco: Never Alcohol Use Standard Drinks/Week Comments Yes 0 (1 standard drink = 0.6 oz pur e alcohol) Social PHQ-2 Answer Date Recorded Retired PHQ-9: Brief Depression Severity Measure Score 5 03/24/2022 Comments No Sex and Gender Information Value Date Recorded Sex Assigned at Not on file Legal Sex Female 12:10 PM EDT Gender Identity Not on file Sexual Orientation Not on file 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 Multiple Vitamins-Minerals (ICAPS AREDS 2 PO) Take by mouth. 2 alendronate (FOSAMAX) 70 MG tabletIndications:Age-rel ated osteoporosis without current pathological fracture Take 1 tablet by mouth 1 (One) Time Per Week. 13 tablet 3 2 04/23/20 23 calcium carbonate (OS-ANUEL) 600 MG tablet Take 1 tablet by mouth 2 (Two) Times a Day With Meals. 11/12/19 24 ezetimibe (Zetia) 10 MG tabletIndications:Pure hypercholesterolemia Take 1 tablet by mouth Daily. 90 tablet 3 2 06/05/19 24 irbesartan (AVAPRO) 300 MG tabletIndications:Essenti al hypertension Take 1 tablet by mouth Daily. 90 tablet 3 2 06/05/19 24 metFORMIN ER (GLUCOPHAGE-XR) 750 MG 24 hr tabletIndications:Type 2 diabetes mellitus with stage 3b chronic kidney disease, without long-term current use of insulin Take 2 tablets by mouth Daily With Breakfast. 180 tablet 3 2 03/05/20 23 NON FORMULARY Smooth Move Tea QHS 10/18/19 24 Omeprazole 20 MG Tablet Delayed Release Dispersible Take 2 tablets by mouth Daily. 10/18/19 24 pioglitazone (ACTOS) 30 MG tabletIndications:Type 2 diabetes mellitus with stage 3b chronic kidney disease, without long-term current use of insulin Take 1 tablet by mouth Daily. 90 tablet 3 2 06/05/19 24 documented as of this encounter Plan of Treatment Upcoming Encounters Date Type Department Care Team (Late st Contact Info) Description 06/09/2024 3:00 PM EST Office Visit [facility] INTER[facility] MEDICINE [address] [place] [phone] [place] [address] [place] [phone] documented as of this encounter Procedures Procedure Name Priority Date/Time Associated Diagnosis Comments DEXA BONE DENSITY AXIAL Routine 11/16/2022 9:33 AM EDT Menopause Osteoporosis documented in this encounter Results * DEXA Bone Density Axial (11/16/2022 9:33 [...] fall-prevention measurements. ??The National Osteoporosis Foundation recommends (http://www.nof.org/hcp/practice/jnkfedzx-wjj-xxzjfwrr-guidelines/clinicians-hussein de) that FDA-approved medical therapies be considered [...] the left hip with 95% confidence is 0.864251 gm/cm2 at the hip and 0.074484 g/cm2 at the lumbar spine. Electronically Signed: Colt Leavitt 11/20/2022 2:54 PM EDT Workstation ID: [id number] Narrative 11/20/2022 2:54 PM EDT DUAL-ENERGY X-RAY [...] normal patients. According to criteria established by the[facility], patients with T-scores between [...] exercises and fall-prevention measurements. The NationalOsteoporosis Foundation recommends(http://www.nof.org/hcp/practice/iznlctrb-ojz-wyctimun-guidelines/clin ician s-guide) that FDA-approved medical therapies be [...] at the left hipwith 95% confidence is 0.614122 gm/cm2 at the hip and 0.089854 g/cm2 atthe lumbar spine. Electronically Signed: Colt Leavitt 11/20/2022 2:54 PM EDT Workstation ID: [id number] Betsy Smith MD [facility] DXA ORDERABLES Final Result documented in this encounter Visit Diagnoses Diagnosis Menopause Symptomatic menopausal or female climacteric states Osteoporosis documented in this encounter Additional Health Concerns Assessment Noted Time PHQ-2 Depression Total Score: 2 03/24/20 22 2:18 PM EST documented as of this encounter Care Teams Salon Designer Relationship Specialty Start Date End Date Betsy Smith MD [address] [place] [address] PCP - General 02/08/15 documented as of this encounter
--- OUTSIDE RECORDS SUMMARY | 2024-03-25 02:49 | XMS_ITS | Encounter Summary ---
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 Not on file Not on fi le documented as of this encounter Plan of Treatment Upcoming Encounters Date Type Department Care Team ([facility] Contact Info) Description 06/09/2024 3:00 PM EST Office Visit [facility] [address] [place] [address] Betsy Smith MD [address] [place] [id number] documented as of this encounter Procedures Procedure Name Priority Date/Time Associated Diagnosis Comments URINALYSIS, MICROSCOPIC ONLY Routine 03/24/2022 3:12 PM EST Hypertension CBC WITH AUTO DIFFERENTIAL Routine 03/24/2022 3:12 PM EST Medicare annual wellness visit, subsequent MICROALBUMIN / CREATININE URINE RATIO Routine 03/24/2022 3:12 PM EST Hypertension VITAMIN D,25-HYDROXY Routine 03/24/2022 3:12 PM EST Vitamin D deficiency URINALYSIS AND MICROSCOPIC Routine 03/24/2022 3:12 PM EST Hypertension URINALYSIS WITHOUT MICROSCOPIC (NO CULTURE) Routine 03/24/2022 3:12 PM EST Hypertension CBC AND DIFFERENTIAL Routine 03/24/2022 3:12 PM EST Medicare annual wellness visit, subsequent TSH Routine 03/24/2022 3:12 PM EST Medicare annual wellness visit, subsequent VITAMIN B12 Routine 03/24/2022 3:12 PM EST B12 deficiency LIPID PANEL Routine 03/24/2022 3:12 PM EST Hyperlipidemia COMPREHENSIVE METABOLIC PANEL Routine 03/24/2022 3:12 PM EST Hypertension documented in this encounter Results * Urinalysis, Microscopic Only - Urine, Clean Catch (03/24/2022 3:12 PM EST) RBC, UA 0-2 None Seen, 0-2 /HPF 03/24/2022 11:57 PM EST [facility] WBC, UA 0-2 None Seen, 0-2 /HPF 03/24/2022 11:57 PM EST [facility] Bacteria, UA None Seen None Seen /HPF 03/24/2022 11:57 PM [facility] Squamous Epithelial Cells, UA 0-2 None Seen, 0-2 /HPF 03/24/2022 11:57 PM [facility] Hyaline Casts, UA None Seen None Seen /LPF 03/24/2022 11:57 PM [facility] Methodology Automated Microscopy 03/24/2022 11:57 PM [facility] Urine Urine specimen obtained by clean catch procedure / Unknown Collection / Unknown 03/24/2022 3:12 PM EST 03/24/2022 3:12 PM EST Betsy Smith MD URINE ORDERABLES Final Result [facility]
[address] [place] [address], * Urinalysis without microscopic (no culture) - Urine, Clean Catch (03/24/2022 3:12 PM EST) Color, UA Yellow Yellow, Straw 03/24/2022 11:50 PM [facility] Appearance, UA Clear Clear 03/24/2022 11:50 PM [facility] pH, UA 6.5 5.0 - 8.0 03/24/2022 11:50 PM [facility] Specific [place], UA 1.014 1.005 - 1.030 03/24/2022 11:50 PM [facility] Glucose, UA Negative Negative 03/24/2022 11:50 PM [facility] Ketones, UA Negative Negative 03/24/2022 11:50 PM [facility] Bilirubin, UA Negative Negative 03/24/2022 11:50 PM [facility] Blood, UA Negative Negative 03/24/2022 11:50 PM [facility] Protein, UA Negative Negative 03/24/2022 11:50 PM [facility] Leuk Esterase, UA Negative Negative 03/24/2022 11:50 PM [facility] Nitrite, UA Negative Negative 03/24/2022 11:50 PM [facility] Urobilinogen, UA 0.2 E.U./dL 0.2 - 1.0 E.U./dL 03/24/2022 11:50 PM [facility] Urine Urine specimen obtained by clean catch procedure / Unknown Collection / Unknown 03/24/2022 3:12 PM EST 03/24/2022 3:12 PM EST Betsy Smith MD URINE ORDERABLES Final Result [facility]
[address] [place] [address], * CBC Auto Differential (03/24/2022 3:12 PM EST) WBC 6.36 3.40 - 10.80 10*3/mm3 03/25/2022 12:08 AM [facility] RBC 4.06 3.77 - 5.28 10*6/mm3 03/25/2022 12:08 AM [facility] Hemoglobin 12.3 12.0 - 15.9 g/dL 03/25/2022 12:08 AM [facility] Hematocrit 36.9 34.0 - 46.6 % 03/25/2022 12:08 AM [facility] MCV 90.9 79.0 - 97.0 fL 03/25/2022 12:08 AM [facility] MCH 30.3 26.6 - 33.0 pg 03/25/2022 12:08 AM [facility] MCHC 33.3 31.5 - 35.7 g/dL 03/25/2022 12:08 AM [facility] RDW 14.0 12.3 - 15.4 % 03/25/2022 12:08 AM [facility] RDW-SD 46.2 37.0 - 54.0 fl 03/25/2022 12:08 AM [facility] MPV 10.8 6.0 - 12.0 fL 03/25/2022 12:08 AM [facility] Platelets 285 140 - 450 10*3/mm3 03/25/2022 12:08 AM [facility] Neutrophil % 65.3 42.7 - 76.0 % 03/25/2022 12:08 AM [facility] Lymphocyte % 23.9 19.6 - 45.3 % 03/25/2022 12:08 AM [facility] Monocyte % 8.6 5.0 - 12.0 % 03/25/2022 12:08 AM [facility] Eosinophil % 1.3 0.3 - 6.2 % 03/25/2022 12:08 AM [facility] Basophil % 0.6 0.0 - 1.5 % 03/25/2022 12:08 AM [facility] Immature Grans % 0.3 0.0 - 0.5 % 03/25/2022 12:08 AM [facility] Neutrophils, Absolute 4.15 1.70 - 7.00 10*3/mm3 03/25/2022 12:08 AM [facility] Lymphocytes, Absolute 1.52 0.70 - 3.10 10*3/mm3 03/25/2022 12:08 AM [facility] Monocytes, Absolute 0.55 0.10 - 0.90 10*3/mm3 03/25/2022 12:08 AM [facility] Eosinophils, Absolute 0.08 0.00 - 0.40 10*3/mm3 03/25/2022 12:08 AM [facility] Basophils, Absolute 0.04 0.00 - 0.20 10*3/mm3 03/25/2022 12:08 AM [facility] Immature Grans, Absolute 0.02 0.00 - 0.05 10*3/mm3 03/25/2022 12:08 AM [facility] nRBC 0.2 0.0 - 0.2 /100 WBC 03/25/2022 12:08 AM [facility] Blood Venipuncture / Unknown 03/24/2022 3:12 PM EST 03/24/2022 3:12 PM EST us Betsy Smith MD LAB BLOOD ORDERABLES Final Resul t Performing Organization Address [facility] de Phone Number [facility]
[address] [place] [address], * Vitamin D,25-Hydroxy (03/24/2022 3:12 PM EST) 25 Hydroxy, Vitamin D 51.0 30.0 - 100.0 ng/ml 03/25/2022 12:13 AM EST [facility] Blood Venipuncture / Unknown 03/24/2022 3:12 PM EST 03/24/2022 3:12 PM EST Narrative [facility] - 03/25/2022 12:13 AM EST Reference Range for Total Vitamin D 25(OH) Deficiency <20.0 ng/mL Insufficiency 21-29 ng/mL Sufficiency 30-100 ng/mL Toxicity >100 ng/ml Results may be falsely increased if patient taking Biotin. us Betsy Smith MD LAB BLOOD ORDERABLES Final Resul t Performing Organization Address [facility] de Phone Number [facility]
[address] [place] [address], * (ABNORMAL) Vitamin B12 (03/24/2022 3:12 PM EST) Vitamin B-12 1,860(H) 211 - 946 pg/mL 03/25/2022 12:13 AM EST [facility] Blood Venipuncture / Unknown 03/24/2022 3:12 PM EST 03/24/2022 3:12 PM EST Narrative [facility] - 03/25/2022 12:13 AM EST Results may be falsely increased if patient taking Biotin. us Betsy Smith MD LAB BLOOD ORDERABLES Final Resul t Performing Organization Address [facility] Co de Phone Number [facility]
[address] [place] [address], * Microalbumin / Creatinine Urine Ratio - Urine, Clean Catch (03/24/2022 3:12 PM EST) Pathologist [facility] Microalbumin/C reatinine Ratio 03/24/2022 11:32 PM EST [facility] Comment:Unable to calculate Creatinine, Urine 65.7 mg/dL 03/24/2022 11:32 PM EST [facility] Microalbumin, Urine <1.2 mg/dL 03/24/2022 11:32 PM EST [facility] Urine Urine specimen obtained by clean catch procedure / Unknown Collection / Unknown 03/24/2022 3:12 PM EST 03/24/2022 3:12 PM EST us Betsy Smith MD URINE ORDERABLES Final Result Performing Organization Address [facility] Co de Phone Number [facility]
[address] [place] [address], * TSH (03/24/2022 3:12 PM EST) [facility] TSH 2.340 0.270 - 4.200 uIU/mL 03/25/2022 12:06 AM EST [facility] Blood Venipuncture / Unknown 03/24/2022 3:12 PM EST 03/24/2022 3:12 PM EST us Betsy Smith MD LAB BLOOD ORDERABLES Final Resul t Performing Organization Address City/[facility]/ZIP Co de Phone Number [facility]
[address] [place] [address], * (ABNORMAL) Lipid Panel (03/24/2022 3:12 PM EST) [facility] Total Cholesterol 196 0 - 200 mg/dL 03/25/2022 12:06 AM [facility] Triglycerides 55 0 - 150 mg/dL 03/25/2022 12:06 AM [facility] HDL Cholesterol 96(H) 40 - 60 mg/dL 03/25/2022 12:06 AM [facility] LDL Cholesterol 90 0 - 100 mg/dL 03/25/2022 12:06 AM [facility] VLDL Cholesterol 10 5 - 40 mg/dL 03/25/2022 12:06 AM [facility] LDL/HDL Ratio 0.93 03/25/2022 12:06 AM [facility] Blood Venipuncture / Unknown 03/24/2022 3:12 PM EST 03/24/2022 3:12 PM [facility] - 03/25/2022 12:06 AM [facility] Cholesterol Reference Ranges (U.S. Department of Health [...] t [facility]
[address] [place] [address], * (ABNORMAL) Comprehensive Metabolic Panel (03/24/2022 3:12 PM EST) Glucose 85 65 - 99 mg/dL 03/25/2022 12:57 AM [facility] BUN 23 8 - 23 mg/dL 03/25/2022 12:57 AM [facility] Creatinine 1.26(H) 0.57 - 1.00 mg/dL 03/25/2022 12:57 AM [facility] Sodium 136 136 - 145 mmol/L 03/25/2022 12:57 AM [facility] Potassium 4.8 3.5 - 5.2 mmol/L 03/25/2022 12:57 AM [facility] Comment:Slight hemolysis det ected by analyzer. Results may be affected. Chloride 98 98 - 107 mmol/L 03/25/2022 12:57 AM [facility] CO2 26.2 22.0 - 29.0 mmol/L 03/25/2022 12:57 AM [facility] Calcium 10.0 8.6 - 10.5 mg/dL 03/25/2022 12:57 AM [facility] Total Protein 6.9 6.0 - 8.5 g/dL 03/25/2022 12:57 AM [facility] Albumin 4.40 3.50 - 5.20 g/dL 03/25/2022 12:57 AM [facility] ALT (SGPT) 8 1 - 33 U/L 03/25/2022 12:57 AM [facility] AST (SGOT) 20 1 - 32 U/L 03/25/2022 12:57 AM [facility] Comment:Slight hemolysis det ected by analyzer. Results may be affected. Alkaline Phosphatase 52 39 - 117 U/L 03/25/2022 12:57 AM EST [facility] Total Bilirubin 0.4 0.0 - 1.2 mg/dL 03/25/2022 12:57 AM EST [facility] Globulin 2.5 gm/dL 03/25/2022 12:57 AM EST [facility] A/G Ratio 1.8 g/dL 03/25/2022 12:57 AM EST [facility] BUN/Creatinine Ratio 18.3 7.0 - 25.0 03/25/2022 12:57 AM EST [facility] Anion Gap 11.8 5.0 - 15.0 mmol/L 03/25/2022 12:57 AM EST [facility] eGFR 41.9(L) >60.0 mL/min/1. 73 03/25/2022 12:57 AM EST [facility] Comment:National Kidney Foun dation and [place] [employer] of Nephrology (ASN) Task Force recommended calculation based on the Chronic Kidney Disease Epidemiology Collaboration (CKD-EPI) equation refit without adjustment for race. Blood Venipuncture / Unknown 03/24/2022 3:12 PM EST 03/24/2022 3:12 PM EST [facility] - 03/25/2022 12:57 AM EST GFR Normal >60 Chronic Kidney Disease <60 Kidney Failure <15 The GFR formula is only valid for adults with stable renal function between ages 18 and 70. us Betsy Smith MD LAB BLOOD ORDERABLES Final Resul t [facility]
[address] [place] [address], documented in this encounter Visit Diagnoses Diagnosis Medicare annual wellness visit, subsequent Hypertension Unspecified essential hypertension Hyperlipidemia Pure hypercholesterolemia B12 deficiency Vitamin D deficiency documented in this encounter Additional Health Concerns Assessment Noted Time PHQ-2 Depression Total Score: 2 03/24/20 22 2:18 PM EST documented as of this encounter Care Teams Wire Threader Relationship Specialty Start Date End Date Betsy Smith MD [address] [place] [address] PCP - General 02/08/15 documented as of this encounter
--- OUTSIDE RECORDS SUMMARY | 2024-03-25 02:49 | XMS_ITS | Encounter Summary ---
Author Organization [facility] ystem Address [address] [place] [address] Care Team Providers Care Machine Set Up Name Role Phone Betsy Smith MD Primary Care Provider [phone] Reason for Visit * Reason Comments Medicare Wellness-subsequent Hypertension Diabetes Encounter Details Date Type Department Care Team (Late st Contact Info) Description 03/21/2021 10:30 AM EST Office Visit [facility] [address] [place] [phone] [place] [address] [place] [phone] Medicare annual wellness visit, subsequent (Primary Dx); Hypertension; Hyperlipidemia; Stage 3a chronic kidney disease; Type 2 diabetes mellitus with stage 3b chronic kidney disease, without long-term current use of insulin; B12 deficiency; Vitamin D deficiency; Osteoporosis; Constipation; Sensorineural hearing loss (SNHL) of both ears Social History Tobacco Use Types Packs/Day Years Used Date Smoking Tobacco: Never Alcohol Use Standard Drinks/Week Comments Yes 0 (1 standard drink = 0.6 oz pur e alcohol) Social PHQ-2 Answer Date Recorded Retired Total Score 0 03/21/2021 Comments No Sex and Gender Information Value Date Recorded Sex Assigned at Not on file Legal Sex Female 12:10 PM EDT Gender Identity Not on file Sexual Orientation Not on file 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 Not on file Not on file Not on fi le documented as of this encounter Last Filed Vital Signs Vital Sign Reading Time Taken Comments Blood Pressure 132/74 03/21/2021 8:54 AM EST Pulse 77 03/21/2021 8:54 AM EST Temperature - - Respiratory Rate - - Oxygen Saturation 98% 03/21/2021 8:54 AM EST Inhaled Oxygen Concentration - - Weight 73 kg (161 lb) 03/21/2021 8:54 AM EST Height 166.4 cm (5' 5.5 ) 03/21/2021 8:54 AM EST Body Mass Index 26.38 03/21/2021 8:54 AM EST documented in this encounter Progress Notes * Betsy Smith MD - 03/21/2021 12:44 PM ESTAssociated Problem(s): Sensorineural hearing loss (SNHL) of both ears No hearing in the right ear per pt * Betsy Smith MD - 03/21/2021 10:30 AM ESTAssociated Order(s): ECG 12 Lead ANNUAL WELLNESS VISIT DRUG AND ALCOHOL USE no alcohol use, no tobacco use and no caffeine use DIET AND PHYSICAL ACTIVITY Diet: general Exercise: daily Exercise Details: walking MOOD DISORDER AND COGNITIVE SCREENING Depression Screening Tool Used yes - see PHQ-9; components reviewed with patient; Denies feeling blue, hopeless, depressed or not having pleasure doing things. Reports no concerns with sleep and no new concerns with energy. Reports no concerns with appetite. Denies slow thoughts, slow movements, issues with concentration, or negative thoughts. Screening is NEG for active depression. Anxiety Screening Tool Used yes Mini-Cog Performed Yes 1. Tell Patient 3 Words car tie campbell 2. Administer Clock Test abnormal 3. Recall 3 words car tie coin 4. Number Correct Items 2 FUNCTIONAL ABILITY AND LEVEL OF SAFETY Hearing moderate hearing loss Wears Hearing Aids No Current Activities Independent none - see Funct/Cog Status Intake Fall Risk Assessment Has difficulty with walking or balance No Timed Up and Go (TUG) Test 11 sec. If >12 sec, normal ADVANCED DIRECTIVE Advance Care Planning ACP discussion was held with the patient during this visit. Patient does not have an advance directive, information provided. Advance Care Planning Discussion: 16 min or more spent on counseling; patient does not have advanced directive and living will. Reviewed desires for end of life care, which is to have comfort care. Patient does not want extraordinarylife-sustaining measures, including no chest compression, shocks, intubation/ventilator use, feeding tube, or prolonged artificial life support. Reviewed code status options, meanings, desires. Hamzah maher 's code status is DNR. Encouraged patient to ensure family is aware of desires/preferences. ACP pamphlet given to patient and sections to be completed were reviewed in detail (choices made and she just needs to initial and get notary). MOST form also reviewed and completed with patient today in the office. Her son Nory (one of her twin sons) is her healthcare surrogate - confirmed with patient in the office today and updated in Epic. PAIN SCREENING Do you have pain right now? no If so, 1-10 scale: 0 Intermittent Do you have pain every day? No Probable chronic pain: No Recent Hospitalizations: No recent hospitalization(s).. MEDICATION REVIEW - updated and reviewed (see Medication List). - reviewed for potentially harmful drug-disease interactions in the elderly. - reviewed for high risk medications in the elderly. - aspirin use: No BMI Body mass index is 26.38 kg/m??. Patient's Body mass index is 26.38 kg/m??. indicating that she is overweight (BMI 25-29.9). Obesity-related health conditions include the following: hypertension, diabetes mellitus, dyslipidemias, GERD, osteoarthritis and urinary stress incontinence. Obesity is improving with lifestyle modifications. BMI is is above average; BMI management plan is completed. We discussed portion control and increasing exercise.. Chief Complaint Patient presents with ??? Medicare Wellness-subsequent ??? Hypertension ??? Diabetes History of Present Illness 86 y.o. woman presents for updated phys examination and wellness visit. Not checking homeBGs. Has not fallen. No new concerns today. Reports constipation much improved with miralax with fiber (tried metamucil but thinks it made her sugars go too low), now using Benefiber and fiber one. Review of Systems Denies headaches, visual changes, CP, palpitations, SOB, cough, abd pain, n/v/d, difficulty with urination, numbness/tingling, falls, mood changes, lightheadedness, hearing changes (no hearing right ear - chronic), rashes. Denies vaginal discharge or bleeding (no periods) or breast concerns. All other ROS reviewed and negative. Current Outpatient Medications: ??? alendronate (FOSAMAX) 70 MG weekly ??? calcium carbonate (OS-ANUEL) 600 MG BID ??? cholecalciferol (VITAMIN D3) 1000 unit QD ??? ezetimibe (Zetia) 10 MG QD ??? irbesartan (AVAPRO) 300 MG QD ??? metFORMIN ER (GLUCOPHAGE-XR) 750 MG 2 QD ??? Smooth Move Tea QHS, QD ??? Omeprazole 20 MG 2 QD ??? pioglitazone (ACTOS) 30 MG QD ??? vitamin B-12 (CYANOCOBALAMIN) 500 MCG QD VITALS: BP 132/74 Pulse 77 Ht 166.4 cm (65.5 ) Wt 73 kg (161 lb) SpO2 98% BMI 26.38 kg/m?? Physical Exam Vitals and nursing note reviewed. Constitutional: General: She is not in acute distress. Appearance: Normal appearance. She is well-developed. HENT: Head: Normocephalic. Right Ear: Ear canal and external ear normal. Left Ear: Tympanic membrane, ear canal and external ear normal. Nose: Nose normal. Eyes: Extraocular Movements: Extraocular movements intact. Conjunctiva/sclera: Conjunctivae normal. Pupils: Pupils are equal, round, and reactive to light. Neck: Vascular: No carotid bruit (bilaterally). Cardiovascular: Rate and Rhythm: Normal rate and regular rhythm. Heart sounds: Murmur heard. Pulmonary: Effort: Pulmonary effort is normal. No respiratory distress. Breath sounds: Normal breath sounds. No wheezing or rales. Abdominal: General: Bowel sounds are normal. There is no distension. Palpations: Abdomen is soft. There is no mass. Tenderness: There is no abdominal tenderness. Genitourinary: Comments: Small Brake Form Operator declined by patient. Breast exam unremarkable without masses, skin changes, nipple discharge, or axillary adenopathy. Musculoskeletal: Cervical back: Normal range of motion and neck supple. Right lower leg: No edema. Left lower leg: No edema. Lymphadenopathy: Cervical: No cervical adenopathy. Skin: General: Skin is warm and dry. Findings: No rash. Neurological: Mental Status: She is alert and oriented to person, place, and time. Cranial Nerves: No cranial nerve deficit. Gait: Gait normal. Deep Tendon Reflexes: Reflexes normal. Psychiatric: Mood and Affect: Mood normal. Behavior: Behavior normal. LABS Results for orders placed or performed in visit on 03/14/21 Comprehensive Metabolic Panel Specimen: Blood Result Value Ref Range Glucose 101 (H) 65 - 99 mg/dL BUN 18 8 - 23 mg/dL Creatinine 1.15 (H) 0.57 - 1.00 mg/dL Sodium 135 (L) 136 - 145 mmol/L Potassium 4.3 3.5 - 5.2 mmol/L Chloride 100 98 - 107 mmol/L CO2 25.5 22.0 - 29.0 mmol/L Calcium 10.2 8.6 - 10.5 mg/dL Total Protein 6.9 6.0 - 8.5 g/dL Albumin 4.50 3.50 - 5.20 g/dL ALT (SGPT) 12 1 - 33 U/L AST (SGOT) 20 1 - 32 U/L Alkaline Phosphatase 54 39 - 117 U/L Total Bilirubin 0.4 0.0 - 1.2 mg/dL eGFR Non Amer 45 (L) >60 mL/min/1.73 Globulin 2.4 gm/dL A/G Ratio 1.9 g/dL BUN/Creatinine Ratio 15.7 7.0 - 25.0 Anion Gap 9.5 5.0 - 15.0 mmol/L Lipid Panel Specimen: Blood Result Value Ref Range Total Cholesterol 184 0 - 200 mg/dL Triglycerides 57 0 - 150 mg/dL HDL Cholesterol 90 (H) 40 - 60 mg/dL LDL Cholesterol 83 0 - 100 mg/dL VLDL Cholesterol 11 5 - 40 mg/dL LDL/HDL Ratio 0.92 TSH Specimen: Blood Result Value Ref Range TSH 1.720 0.270 - 4.200 uIU/mL Hemoglobin A1c Specimen: Blood Result Value Ref Range Hemoglobin A1C 6.00 (H) 4.80 - 5.60 % Vitamin D 25 Hydroxy Specimen: Blood Result Value Ref Range 25 Hydroxy, Vitamin D 44.7 30.0 - 100.0 ng/ml Vitamin B12 Specimen: Blood Result Value Ref Range Vitamin B-12 1,482 (H) 211 - 946 pg/mL Microalbumin / Creatinine Urine Ratio - Urine, Clean Catch Specimen: Urine, Clean Catch Result Value Ref Range Microalbumin/Creatinine Ratio 26.3 mg/g Creatinine, Urine 87.4 mg/dL Microalbumin, Urine 2.3 mg/dL CBC Auto Differential Specimen: Blood Result Value Ref Range WBC 7.16 3.40 - 10.80 10*3/mm3 RBC 4.29 3.77 - 5.28 10*6/mm3 Hemoglobin 12.4 12.0 - 15.9 g/dL Hematocrit 37.4 34.0 - 46.6 % MCV 87.2 79.0 - 97.0 fL MCH 28.9 26.6 - 33.0 pg MCHC 33.2 31.5 - 35.7 g/dL RDW 14.5 12.3 - 15.4 % RDW-SD 46.1 37.0 - 54.0 fl MPV 10.9 6.0 - 12.0 fL Platelets 321 140 - 450 10*3/mm3 Neutrophil % 67.9 42.7 - 76.0 % Lymphocyte % 20.3 19.6 - 45.3 % Monocyte % 9.4 5.0 - 12.0 % Eosinophil % 1.3 0.3 - 6.2 % Basophil % 0.8 0.0 - 1.5 % Immature Grans % 0.3 0.0 - 0.5 % Neutrophils, Absolute 4.87 1.70 - 7.00 10*3/mm3 Lymphocytes, Absolute 1.45 0.70 - 3.10 10*3/mm3 Monocytes, Absolute 0.67 0.10 - 0.90 10*3/mm3 Eosinophils, Absolute 0.09 0.00 - 0.40 10*3/mm3 Basophils, Absolute 0.06 0.00 - 0.20 10*3/mm3 Immature Grans, Absolute 0.02 0.00 - 0.05 10*3/mm3 nRBC 0.0 0.0 - 0.2 /100 WBC Urinalysis without microscopic (no culture) - Urine, Clean Catch Specimen: Urine, Clean Catch Result Value Ref Range Color, UA Yellow Yellow, Straw Appearance, UA Clear Clear pH, UA 6.5 5.0 - 8.0 Specific Malone, UA 1.014 1.005 - 1.030 Glucose, UA Negative Negative Ketones, UA Negative Negative Bilirubin, UA Negative Negative Blood, UA Negative Negative Protein, UA Negative Negative Leuk Esterase, UA Negative Negative Nitrite, UA Negative Negative Urobilinogen, UA 0.2 E.U./dL 0.2 - 1.0 E.U./dL Urinalysis, Microscopic Only - Urine, Clean Catch Specimen: Urine, Clean Catch Result Value Ref Range RBC, UA 0-2 None Seen, 0-2 /HPF WBC, UA 0-2 None Seen, 0-2 /HPF Bacteria, UA None Seen None Seen /HPF Squamous Epithelial Cells, UA 0-2 None Seen, 0-2 /HPF Hyaline Casts, UA 3-6 None Seen /LPF Methodology Automated Microscopy 09/24 A1C 6.0 ECG 12 Lead Date/Time: 03/21/2021 10:30 AM Performed by: Betsy Smith MD Authorized by: Betsy Smith MD Comparison: compared with previous ECG from 03/10/2019 Similar to previous ECG Rhythm: sinus rhythm Rate: normal BPM: 70 Conduction: left bundle branch block ST Segments: ST segments normal T Waves: T waves normal T inversion: V1, V2 and V3 (old) QRS axis: normal Clinical impression comment: stable EKG ASSESSMENT/PLAN Diagnoses and all orders for this visit: 1. Medicare annual wellness visit, subsequent (Primary) Assessment & Plan: Health maintenance - COVID19 vacc done, including [...] as Consulting Physician (Gastroenterology) Kristal Valente (Audiology) 2. Hypertension Assessment & Plan: BP stable 132/74; cont irbesartan 300mg QD #90, 3RF with goal <130/80 Orders: - ECG 12 Lead - irbesartan (AVAPRO) 300 MG tablet; Take 1 tablet by mouth Daily. Dispense: 90 tablet; Refill: 3 3. Hyperlipidemia Assessment & Plan: Lipids borderline but stable with LDL 83; goal LDL < 70; on zetia 10mg QD #90, 3RF Orders: - ezetimibe (Zetia) 10 MG tablet; Take 1 tablet by mouth Daily. Dispense: 90 tablet; Refill: 3 4. Stage 3a chronic kidney disease (HCC) Assessment & Plan: Stable renal function Cr 1.15, GFR 45; reviewed importance good BP and BG control; avoid NSAIDs; drink enough water daily 5. Type 2 diabetes mellitus with stage 3b chronic kidney disease, without long- term current use of insulin ([facility]) Assessment & Plan: BG control stable with A1C 6.0; cont met ER 750mg 2 QD #180, 3RF and amita 30mg QD #90, 3RF; encouraged reg phys activity to decr insulin resistance, moderation in unhealthy starches/sweets; f/u A1C in6 mos Orders: - pioglitazone (ACTOS) 30 MG tablet; Take 1 tablet by mouth Daily. Dispense: 90 tablet; Refill: 3 - metFORMIN ER (GLUCOPHAGE-XR) 750 MG 24 hr tablet; Take 2 tablets by mouth Daily With Breakfast. Dispense: 180 tablet; Refill: 3 6. B12 deficiency Assessment & Plan: Note supratherapeutic B12 level; rec d/c B12 supplement 7. Vitamin D deficiency Assessment & Plan: Stable vit D level 44.7; cont 1000 units QD supplementation 8. Osteoporosis Assessment & Plan: Calcium and vitamin D supplementation with weight-bearing exercise; also cont alendronate 70mg weekly #13, 3RF; DEXA 06/26, repeat 2021 Orders: - alendronate (FOSAMAX) 70 MG tablet; Take 1 tablet by mouth 1 (One) Time Per Week. Dispense: 13 tablet; Refill: 3 9. Constipation Assessment & Plan: Improved with miralax in combination with benefiber and fiber one; cont to drink enough water 10. Sensorineural hearing loss (SNHL) of both ears Assessment & Plan: No hearing in the right ear per pt FOLLOW-UP RTC 6 mos with A1C Electronically signed by: Betsy Smith MD, FACP 03/21/2021 * Betsy Smith MD - 03/21/2021 10:22 AM ESTAssociated Problem(s): Constipation Improved with miralax in combination with benefiber and fiber one; cont to drink enough water * Betsy Smith MD - 03/19/2021 1:03 PM ESTAssociated Problem(s): Hyperlipidemia Lipids borderline but stable with LDL 83; goal LDL < 70; on zetia 10mg QD #90, 3RF * Betsy Smith MD - 03/19/2021 1:02 PM ESTAssociated Problem(s): Hypertension BP stable 132/74; cont irbesartan 300mg QD #90, 3RF with goal <130/80 * Betsy Smith MD - 03/19/2021 1:02 PM ESTAssociated Problem(s): B12 deficiency Note supratherapeutic B12 level; rec d/c B12 supplement * Betsy Smith MD - 03/19/2021 1:02 PM ESTAssociated Problem(s): Vitamin D deficiency Stable vit D level 44.7; cont 1000 units QD supplementation * Betsy Smith MD - 03/19/2021 1:01 PM ESTAssociated Problem(s): CKD (chronic kidney disease), stage III Stable renal function Cr 1.15, GFR 45; reviewed importance good BP and BG control; avoid NSAIDs; drink enough water daily * Betsy Smith MD - 03/19/2021 1:00 PM ESTAssociated Problem(s): Medicare annual wellness visit, subsequent Health maintenance - COVID19 vacc done, including [...] as Consulting Physician (Gastroenterology) Kristal Valente (Audiology) * Betsy Smith MD - 03/19/2021 1:00 PM ESTAssociated Problem(s): Osteoporosis Calcium and vitamin D supplementation with weight-bearing exercise; also cont alendronate 70mg weekly #13, 3RF; DEXA 06/26, repeat 2021 * Betsy Smith MD - 03/19/2021 12:59 PM ESTAssociated Problem(s): Type 2 diabetes mellitus with stage 3b chronic kidney disease, without long-term current use of insulin BG control stable with A1C 6.0; cont met ER 750mg 2 QD #180, 3RF and amita 30mg QD #90, 3RF; encouraged reg phys activity to decr insulin resistance, moderation in unhealthy starches/sweets; f/u A1C in6 mos documented in this encounter Plan of Treatment Upcoming Encounters Date Type Department Care Team (Late st Contact Info) Description 06/09/2024 3:00 PM EST Office Visit [facility] [address] [place] [phone] [place] [address] [place] [phone] documented as of this encounter Procedures Procedure Name Priority Date/Time Associated Diagnosis Comments ECG 12-LEAD Routine 03/21/2021 10:30 AM EST Hypertension documented in this encounter Results * ECG 12-LEAD (03/21/2021 10:30 AM EST) Narrative Alea Christianson Nica - 03/21/2021 10:30 AM EST Betsy Smith MD ? 03/21/2021 12:47 PM ECG 12 Lead Date/Time: 03/21/2021 10:30 AM Performed by: Betsy Smith MD Authorized by: Betsy Smith MD Comparison: compared with previous ECG from 03/10/2019 Similar to previous ECG Rhythm: sinus rhythm Rate: normal BPM: 70 Conduction: left bundle branch block ST Segments: ST segments normal T Waves: T waves normal T inversion: V1, V2 and V3 (old) QRS axis: normal Clinical impression comment: stable EKG Procedure Note Betsy Smith MD - 03/21/2021 10:30 AM EST ANNUAL WELLNESS VISIT DRUG AND ALCOHOL USE no alcohol use, no tobacco use and no caffeine use DIET AND PHYSICAL ACTIVITY Diet: general Exercise: daily Exercise Details: walking MOOD DISORDER AND COGNITIVE SCREENING Depression Screening Tool Used yes - see PHQ-9; components reviewed withpatient; Denies feeling blue, hopeless, depressed or not having pleasuredoing things. Reports no concerns with sleep and no new concerns withenergy. Reports no concerns with appetite. Denies slow thoughts, slowmovements, issues with concentration, or negative thoughts. Screening isNEG for active depression. Anxiety Screening Tool Used yes Mini-Cog Performed Yes 1. Tell Patient 3 Words car tie campbell 2. Administer Clock Test abnormal 3. Recall 3 words car tie coin 4. Number Correct Items 2 FUNCTIONAL ABILITY AND LEVEL OF SAFETY Hearing moderate hearing loss Wears Hearing Aids No Current Activities Independent none - see Funct/Cog Status Intake Fall Risk Assessment Has difficulty with walking or balance No Timed Up and Go (TUG) Test 11 sec. If >12 sec, normal ADVANCED DIRECTIVE Advance Care Planning ACP discussion was held with the patient during this visit. Patient doesnot have an advance directive, information provided. Advance Care Planning Discussion: 16 min or more spent on counseling; patient does not have advanceddirective and living will. Reviewed desires for end of life care, whichis to have comfort care. Patient does not want extraordinarylife-sustaining measures, including no chest compression, shocks,intubation/ventilator use, feeding tube, or prolonged artificial lifesupport. Reviewed code status options, meanings, desires. Patient 's codestatus is DNR. Encouraged patient to ensure family is aware ofdesires/preferences. ACP pamphlet given to patient and sections to becompleted were reviewed in detail (choices made and she just needs toinitial and get notary). MOST form also reviewed and completed withpatient today in the office. Her son Nory (one of her twin sons) is herhealthcare surrogate - confirmed with patient in the office today andupdated [facility]. PAIN SCREENING Do you have pain right now? no If so, 1-10 scale: 0 Intermittent Do you have pain every day? No Probable chronic pain: No Recent Hospitalizations: No recent hospitalization(s).. MEDICATION REVIEW - updated and reviewed (see Medication List). - reviewed for potentially harmful drug-disease interactions in theelderly. - reviewed for high risk medications in the elderly. - aspirin use: No BMI Body mass index is 26.38 kg/m??. Patient's Body mass index is 26.38 kg/m??. indicating that she isoverweight (BMI 25-29.9). Obesity-related health conditions include thefollowing: hypertension, diabetes mellitus, dyslipidemias, GERD,osteoarthritis and urinary stress incontinence. Obesity is improving withlifestyle modifications. BMI is is above average; BMI management plan iscompleted. We discussed portion control and increasing exercise.. Chief Complaint Patient presents with ? ? Medicare Wellness-subsequent ? ? Hypertension ? ? Diabetes History of Present Illness 86 y.o. woman presents for updated phys examination and wellnessvisit. Not checking home BGs. Has not fallen. No new concerns today.Reports constipation much improved with miralax with fiber (triedmetamucil but thinks it made her sugars go too low), now using Benefiberand fiber one. Review of Systems Denies headaches, visual changes, CP, palpitations, SOB, cough, abd pain,n/v/d, difficulty with urination, numbness/tingling, falls, mood changes,lightheadedness, hearing changes (no hearing right ear - chronic),rashes. Denies vaginal discharge or bleeding (no periods) or breast concerns. All other ROS reviewed and negative. Current Outpatient Medications: ? ? alendronate (FOSAMAX) 70 MG weekly ? ? calcium carbonate (OS-ANUEL) 600 MG BID ? ? cholecalciferol (VITAMIN D3) 1000 unit QD ? ? ezetimibe (Zetia) 10 MG QD ? ? irbesartan (AVAPRO) 300 MG QD ? ? metFORMIN ER (GLUCOPHAGE-XR) 750 MG 2 QD ? ? Smooth Move Tea QHS, QD ? ? Omeprazole 20 MG 2 QD ? ? pioglitazone (ACTOS) 30 MG QD ? ? vitamin B-12 (CYANOCOBALAMIN) 500 MCG QD VITALS: BP 132/74 Pulse 77 Ht 166.4 cm (65.5 ) Wt 73 kg (161 lb) RhD660% BMI 26.38 kg/m?? Physical Exam Vitals and nursing note reviewed. Constitutional: General: She is not in acute distress. Appearance: Normal appearance. She is well-developed. HENT: Head: Normocephalic. Right Ear: Ear canal and external ear normal. Left Ear: Tympanic membrane, ear canal and external ear normal. Nose: Nose normal. Eyes: Extraocular Movements: Extraocular movements intact. Conjunctiva/sclera: Conjunctivae normal. Pupils: Pupils are equal, round, and reactive to light. Neck: Vascular: No carotid bruit (bilaterally). Cardiovascular: Rate and Rhythm: Normal rate and regular rhythm. Heart sounds: Murmur heard. Pulmonary: Effort: Pulmonary effort is normal. No respiratory distress. Breath sounds: Normal breath sounds. No wheezing or rales. Abdominal: General: Bowel sounds are normal. There is no distension. Palpations: Abdomen is soft. There is no mass. Tenderness: There is no abdominal tenderness. Genitourinary: Comments: Small Brake Form Operator declined by patient. Breast exam unremarkable without masses, skin changes, nipple discharge,or axillary adenopathy. Musculoskeletal: Cervical back: Normal range of motion and neck supple. Right lower leg: No edema. Left lower leg: No edema. Lymphadenopathy: Cervical: No cervical adenopathy. Skin: General: Skin is warm and dry. Findings: No rash. Neurological: Mental Status: She is alert and oriented to person, place, and time. Cranial Nerves: No cranial nerve deficit. Gait: Gait normal. Deep Tendon Reflexes: Reflexes normal. Psychiatric: Mood and Affect: Mood normal. Behavior: Behavior normal. LABS Results for orders placed or performed in visit on 03/14/21 Comprehensive Metabolic Panel Specimen: Blood Result Value Ref Range Glucose 101 (H) 65 - 99 mg/dL BUN 18 8 - 23 mg/dL Creatinine 1.15 (H) 0.57 - 1.00 mg/dL Sodium 135 (L) 136 - 145 mmol/L Potassium 4.3 3.5 - 5.2 mmol/L Chloride 100 98 - 107 mmol/L CO2 25.5 22.0 - 29.0 mmol/L Calcium 10.2 8.6 - 10.5 mg/dL Total Protein 6.9 6.0 - 8.5 g/dL Albumin 4.50 3.50 - 5.20 g/dL ALT (SGPT) 12 1 - 33 U/L AST (SGOT) 20 1 - 32 U/L Alkaline Phosphatase 54 39 - 117 U/L Total Bilirubin 0.4 0.0 - 1.2 mg/dL eGFR Non Amer 45 (L) >60 mL/min/1.73 Globulin 2.4 gm/dL A/G Ratio 1.9 g/dL BUN/Creatinine Ratio 15.7 7.0 - 25.0 Anion Gap 9.5 5.0 - 15.0 mmol/L Lipid Panel Specimen: Blood Result Value Ref Range Total Cholesterol 184 0 - 200 mg/dL Triglycerides 57 0 - 150 mg/dL HDL Cholesterol 90 (H) 40 - 60 mg/dL LDL Cholesterol 83 0 - 100 mg/dL VLDL Cholesterol 11 5 - 40 mg/dL LDL/HDL Ratio 0.92 TSH Specimen: Blood Result Value Ref Range TSH 1.720 0.270 - 4.200 uIU/mL Hemoglobin A1c Specimen: Blood Result Value Ref Range Hemoglobin A1C 6.00 (H) 4.80 - 5.60 % Vitamin D 25 Hydroxy Specimen: Blood Result Value Ref Range 25 Hydroxy, Vitamin D 44.7 30.0 - 100.0 ng/ml Vitamin B12 Specimen: Blood Result Value Ref Range Vitamin B-12 1,482 (H) 211 - 946 pg/mL Microalbumin / Creatinine Urine Ratio - Urine, Clean Catch Specimen: Urine, Clean Catch Result Value Ref Range Microalbumin/Creatinine Ratio 26.3 mg/g Creatinine, Urine 87.4 mg/dL Microalbumin, Urine 2.3 mg/dL CBC Auto Differential Specimen: Blood Result Value Ref Range WBC 7.16 3.40 - 10.80 10*3/mm3 RBC 4.29 3.77 - 5.28 10*6/mm3 Hemoglobin 12.4 12.0 - 15.9 g/dL Hematocrit 37.4 34.0 - 46.6 % MCV 87.2 79.0 - 97.0 fL MCH 28.9 26.6 - 33.0 pg MCHC 33.2 31.5 - 35.7 g/dL RDW 14.5 12.3 - 15.4 % RDW-SD 46.1 37.0 - 54.0 fl MPV 10.9 6.0 - 12.0 fL Platelets 321 140 - 450 10*3/mm3 Neutrophil % 67.9 42.7 - 76.0 % Lymphocyte % 20.3 19.6 - 45.3 % Monocyte % 9.4 5.0 - 12.0 % Eosinophil % 1.3 0.3 - 6.2 % Basophil % 0.8 0.0 - 1.5 % Immature Grans % 0.3 0.0 - 0.5 % Neutrophils, Absolute 4.87 1.70 - 7.00 10*3/mm3 Lymphocytes, Absolute 1.45 0.70 - 3.10 10*3/mm3 Monocytes, Absolute 0.67 0.10 - 0.90 10*3/mm3 Eosinophils, Absolute 0.09 0.00 - 0.40 10*3/mm3 Basophils, Absolute 0.06 0.00 - 0.20 10*3/mm3 Immature Grans, Absolute 0.02 0.00 - 0.05 10*3/mm3 nRBC 0.0 0.0 - 0.2 /100 WBC Urinalysis without microscopic (no culture) - Urine, Clean Catch Specimen: Urine, Clean Catch Result Value Ref Range Color, UA Yellow Yellow, Straw Appearance, UA Clear Clear pH, UA 6.5 5.0 - 8.0 Specific Malone, UA 1.014 1.005 - 1.030 Glucose, UA Negative Negative Ketones, UA Negative Negative Bilirubin, UA Negative Negative Blood, UA Negative Negative Protein, UA Negative Negative Leuk Esterase, UA Negative Negative Nitrite, UA Negative Negative Urobilinogen, UA 0.2 E.U./dL 0.2 - 1.0 E.U./dL Urinalysis, Microscopic Only - Urine, Clean Catch Specimen: Urine, Clean Catch Result Value Ref Range RBC, UA 0-2 None Seen, 0-2 /HPF WBC, UA 0-2 None Seen, 0-2 /HPF Bacteria, UA None Seen None Seen /HPF Squamous Epithelial Cells, UA 0-2 None Seen, 0-2 /HPF Hyaline Casts, UA 3-6 None Seen /LPF Methodology Automated Microscopy 09/24 A1C 6.0 ECG 12 Lead Date/Time: 03/21/2021 10:30 AM Performed by: Betsy Smith MD Authorized by: Betsy Smith MD Comparison: compared with previous ECG from 03/10/2019 Similar to previous ECG Rhythm: sinus rhythm Rate: normal BPM: 70 Conduction: left bundle branch block ST Segments: ST segments normal T Waves: T waves normal T inversion: V1, V2 and V3 (old) QRS axis: normal Clinical impression comment: stable EKG ASSESSMENT/PLAN Diagnoses and all orders for this visit: 1. Medicare annual wellness visit, subsequent (Primary) Assessment & Plan: Health maintenance - COVID19 vacc done, including 3rd dose COVID; highdose flu vacc recommended - none available in the office today, recgetting at pharmacy; Prevnar 02/18; PVX 03/16; Tdap 05/27 (next Td [id number]), Zostavax 09/12, Shingrix and HAV done; mammo 06/01/20; no furtherPaps unelss abnlities; DEXA 06/26, repeat 2021; colonosc 2007, no furtherper pt; NEG cologuard 03/25/18; eye exam w/ Dr. Duque 03/02/21, contannually; dental exam UTD, just had tooth extraction; (+)seat belt use Consultants: Patient Care Team: Betsy Smith MD as PCP - Ed Aragon MD as Consulting Physician (Ophthalmology) Julito Shen MD as Consulting Physician(Gastroenterology) Kristal Valente (Audiology) 2. Hypertension Assessment & Plan: BP stable 132/74; cont irbesartan 300mg QD #90, 3RF with goal <130/80 Orders: - ECG 12 Lead - irbesartan (AVAPRO) 300 MG tablet; Take 1 tablet by mouth Daily.Dispense: 90 tablet; Refill: 3 3. Hyperlipidemia Assessment & Plan: Lipids borderline but stable with LDL 83; goal LDL < 70; on zetia 10mg QD#90, 3RF Orders: - ezetimibe (Zetia) 10 MG tablet; Take 1 tablet by mouth Daily.Dispense: 90 tablet; Refill: 3 4. Stage 3a chronic kidney disease (HCC) Assessment & Plan: Stable renal function Cr 1.15, GFR 45; reviewed importance good BP and BGcontrol; avoid NSAIDs; drink enough water daily 5. Type 2 diabetes mellitus with stage 3b chronic kidney disease, withoutlong- term current use of insulin (HCC) Assessment & Plan: BG control stable with A1C 6.0; cont met ER 750mg 2 QD #180, 3RF and [id number] QD #90, 3RF; encouraged reg phys activity to decr insulin resistance,moderation in unhealthy starches/sweets; f/u A1C in 6 mos Orders: - pioglitazone (ACTOS) 30 MG tablet; Take 1 tablet by mouth Daily.Dispense: 90 tablet; Refill: 3 - metFORMIN ER (GLUCOPHAGE-XR) 750 MG 24 hr tablet; Take 2 tablets bymouth Daily With Breakfast. Dispense: 180 tablet; Refill: 3 6. B12 deficiency Assessment & Plan: Note supratherapeutic B12 level; rec d/c B12 supplement 7. Vitamin D deficiency Assessment & Plan: Stable vit D level 44.7; cont 1000 units QD supplementation 8. Osteoporosis Assessment & Plan: Calcium and vitamin D supplementation with weight-bearing exercise; alsocont alendronate 70mg weekly #13, 3RF; DEXA 06/26, repeat 2021 Orders: - alendronate (FOSAMAX) 70 MG tablet; Take 1 tablet by mouth 1 (One)Time Per Week. Dispense: 13 tablet; Refill: 3 9. Constipation Assessment & Plan: Improved with miralax in combination with benefiber and fiber one; cont todrink enough water 10. Sensorineural hearing loss (SNHL) of both ears Assessment & Plan: No hearing in the right ear per pt FOLLOW-UP RTC 6 mos with A1C Electronically signed by: Betsy Smith MD, [facility] 03/21/2021 Betsy Smith MD ECG ORDERABLES Final Result documented in this encounter Visit Diagnoses Diagnosis Medicare annual wellness visit, subsequent- Primary Hypertension Unspecified essential hypertension Hyperlipidemia Pure hypercholesterolemia Stage 3a chronic kidney disease Type 2 diabetes mellitus with stage 3b chronic kidney disease, without long-term current use of insulin B12 deficiency Vitamin D deficiency Osteoporosis Constipation Unspecified constipation Sensorineural hearing loss (SNHL) of both ears documented in this encounter Care Teams Machine Set Up Relationship Specialty Start Date End Date Betsy Smith MD [address] [place] [id number] PCP - General 02/08/15 documented as of this encounter
--- OUTSIDE RECORDS SUMMARY | 2024-03-25 02:49 | XMS_ITS | Encounter Summary ---
Author Organization [facility] ystem Address [address] [place] [address] Care Team Providers Care Waste Management Recycling Technician Name Role Phone Betsy Smith MD Primary Care Provider [phone] Reason for Visit * Reason Comments Hypertension Urinary Incontinence Encounter Details Date Type Department Care Team (Late st Contact Info) Description 05/29/2022 2:30 PM EST Office Visit [facility] [address] [place] [phone] Betsy Smith MD [address] [place] [address] Hypertension (Primary Dx); Overflow incontinence of urine; Stage 3a chronic kidney disease; Seasonal allergic rhinitis, unspecified trigger; Eye irritation Social History Tobacco Use Types Packs/Day Years [...] 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 Not on file Not on fi le documented as of this encounter Last Filed Vital Signs Vital Sign Reading Time Taken Comments Blood Pressure 140/64 05/29/2022 2:15 PM EST Pulse 68 05/29/2022 2:15 PM EST Temperature 36.4 ??C (97.6 ??F) 05/29/2022 2:15 PM ES T Respiratory Rate 18 05/29/2022 2:15 PM EST Oxygen Saturation 96% 05/29/2022 2:15 PM EST Inhaled Oxygen Concentration - - Weight 70.8 kg (156 lb) 05/29/2022 2:15 PM EST Height 166.4 cm (5' 5.5 ) 05/29/2022 2:15 PM EST Body Mass Index 25.56 05/29/2022 2:15 PM EST documented in this encounter Progress Notes * Betsy Smith MD - 05/29/2022 9:49 PM ESTAssociated Problem(s): Allergic rhinitis Agree with resuming flonase 2 sprays/nostril QD - correct use reviewed; also rec addition of antihistamine QD for runny nose * Betsy Smith MD - 05/29/2022 9:47 PM ESTAssociated Problem(s): Overflow incontinence of urine Has gone to decaf coffee and only 1-2 cups in AM; advised again regular bathroom breaks; no meds RX'd today * Betsy Smith MD - 05/29/2022 2:30 PM EST Chief Complaint Patient presents with ??? Hypertension ??? Urinary Incontinence History of Present Illness 87 y.o. woman presents for BP and kidney function f/u. Brings her BP cuff to verify accuracy. Home BPs have been 130s/80s. Wonders whether having reaction to AREDS2 vitamins. Notes watery eyes with crusting, otilio in AM. Notitchy or red. Sxs onset after vitamins. Also newer phone has smaller print. Like to play games on phone. Notes runny nose. Wonders about restarting nasal spray. Prev has gotten good deal for 3 bottles at a time at [facility]. Notes personal stressors - sister is ill, son has severe lung disease (smoker and factory exposures) and has been given 6 months. Also washer broke and needs to be replaced. Review of Systems Denies headaches, CP, SOB. All other ROS reviewed and negative. Current Outpatient Medications: ??? alendronate (FOSAMAX) 70 MG weekly ??? calcium carbonate (OS-ANUEL) 600 MG BID ??? cholecalciferol (VITAMIN D3) 1000 units QD ??? ezetimibe (Zetia) 10 MG QD ??? irbesartan (AVAPRO) 300 MG QD ??? metFORMIN ER 750 MG 2 QD ??? ICAPS AREDS 2 QD ??? NON FORMULARY, Smooth Move Tea QHS ??? Omeprazole 20 MG QD ??? pioglitazone (ACTOS) 30 MG QD VITALS: BP 140/64 Pulse 68 Temp 97.6 ??F (36.4 ??C) (Temporal) Resp 18 Ht 166.4 cm (65.5 ) Wt 70.8 kg (156 lb) SpO2 96% BMI 25.56 kg/m?? Her machine left arm 157/71, pulse 71, manual 152/64 Her machine right arm 149/70, pulse 69, manual 148/64 Physical Exam Vitals and nursing note reviewed. Constitutional: General: She is not in acute distress. Appearance: Normal appearance. She is not ill-appearing. Eyes: Extraocular Movements: Extraocular movements intact. Conjunctiva/sclera: Conjunctivae normal. Pulmonary: Effort: Pulmonary effort is normal. No respiratory distress. Neurological: Mental Status: She is alert and oriented to person, place, and time. Mental status is at baseline. Psychiatric: Mood and Affect: Mood normal. Behavior: Behavior normal. LABS Results for orders placed or performed in visit on 04/07/22 Basic Metabolic Panel Specimen: Blood Result Value Ref Range Glucose 96 65 - 99 mg/dL BUN 23 8 - 23 mg/dL Creatinine 1.18 (H) 0.57 - 1.00 mg/dL Sodium 138 136 - 145 mmol/L Potassium 4.8 3.5 - 5.2 mmol/L Chloride 97 (L) 98 - 107 mmol/L CO2 26.1 22.0 - 29.0 mmol/L Calcium 10.4 8.6 - 10.5 mg/dL BUN/Creatinine Ratio 19.5 7.0 - 25.0 Anion Gap 14.9 5.0 - 15.0 mmol/L eGFR 45.4 (L) >60.0 mL/min/1.73 03/28 A1C 6.1 ASSESSMENT/PLAN Diagnoses and all orders for this visit: 1. Hypertension (Primary) Assessment & Plan: BP elevated, but machine is reading accurately and bord/acceptable BPs at home in the 130s; reviewed correct use of BP machine (artery was not lined up correctly); encouraged phys activity as tolerable and low Na diet; cont irbesartan 300mg QD; rec cont home monitoring with goal < 130/80; f/u in4 mos at the latest 2. Overflow incontinence of urine Assessment & Plan: Has gone to decaf coffee and only 1-2 cups in AM; advised again regular bathroom breaks; no meds RX'd today 3. Stage 3a chronic kidney disease (HCC) Assessment & Plan: F/u renal function improved, back to baseline Cr 1.18, GFR 45.4; reminded patient importance of good BG and BP control (note elevated BP today); avoid NSAIDs 4. Seasonal allergic rhinitis, unspecified trigger Assessment & Plan: Agree with resuming flonase 2 sprays/nostril QD - correct use reviewed; also rec addition of antihistamine QD for runny nose 5. Eye irritation Comments: more likely d/t allergy conjunctivitis or dry eyes than s/e of AREDS2; rec trial of natural tears hourly while on screen x2 wks; consider Zaditor if no better FOLLOW-UP 1. Health maintenance - COVID19 vacc 2. RTC 10/02/22 as scheduled with A1C and BP check Electronically signed by: Betsy Smith MD, FACP 05/29/2022 * Betsy Smith MD - 05/28/2022 3:12 PM ESTAssociated Problem(s): Hypertension BP elevated, but machine is reading accurately and bord/acceptable BPs at home in the 130s; reviewed correct use of BP machine (artery was not lined up correctly); encouraged phys activity as tolerable and low Na diet; cont irbesartan 300mg QD; rec cont home monitoring with goal < 130/80; f/u in4 mos at the latest * Betsy Smith MD - 05/28/2022 3:12 PM ESTAssociated Problem(s): Type 2 diabetes mellitus with stage 3b chronic kidney disease, without long-term current use of insulin F/u A1C in 4 mos as scheduled * Betsy Smith MD - 05/28/2022 3:11 PM ESTAssociated Problem(s): CKD (chronic kidney disease), stage III F/u renal function improved, back to baseline Cr 1.18, GFR 45.4; reminded patient importance of good BG and BP control (note elevated BP today); avoid NSAIDs documented in this encounter Plan of Treatment Upcoming Encounters Date Type Department Care Team (Late st Contact Info) Description 06/09/2024 3:00 PM EST Office Visit [facility] [address] [place] [phone] Betsy Smith MD [address] [place] [address] [phone] documented as of this encounter Visit Diagnoses Diagnosis Hypertension- Primary Unspecified essential hypertension Overflow incontinence of urine Overflow incontinence Stage 3a chronic kidney disease Seasonal allergic rhinitis, unspecified trigger Eye irritation Other ill-defined disorder of eye documented in this encounter Additional Health Concerns Assessment Noted Time PHQ-2 Depression Total Score: 2 03/24/20 22 2:18 PM EST documented as of this encounter Care Teams Waste Management Recycling Technician Relationship Specialty Start Date End Date Betsy Smith MD [address] [place] [phone] PCP - General 02/08/15 documented as of this encounter
--- OUTSIDE RECORDS SUMMARY | 2024-03-25 02:49 | XMS_ITS | Encounter Summary ---
Author Organization [facility] ystem Address [address] [place] [address] Care Team Providers Care Customs Examiner Name Role Phone Betsy Smith MD Primary Care Provider [phone] Reason for Visit * Reason Comments Med Refill Encounter Details Date Type Department Care Team ([facility] Contact Info) Description 10/13/2021 Refill [facility] [address] [place] [phone] [place] [address] [place] [phone] Osteoporosis Social History Tobacco Use Types Packs/Day Years [...] 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 Not on file Not on le documented as of this encounter Plan of Treatment Upcoming Encounters Date Type Department Care Team ([facility] Contact Info) Description 06/09/2024 3:00 PM EST Office Visit [facility] [address] [place] [phone] Betsy Smith MD [address] [place], [place] [phone] documented as of this encounter Visit Diagnoses Diagnosis Osteoporosis documented in this encounter Care Teams Customs Examiner Relationship Specialty Start Date End Date Betsy Smith MD [address] [place] [address] [phone] PCP - General 02/08/15 documented as of this encounter
--- OUTSIDE RECORDS SUMMARY | 2024-03-25 02:49 | XMS_ITS | Encounter Summary ---
Author Organization [facility] ystem Address [address] [place] [address] Care Team Providers Care Store Person Name Role Phone Betsy Smith MD Primary Care Provider [phone] Reason for Visit * Reason Comments Med Refill Encounter Details Date Type Department Care Team (Late st Contact Info) Description 05/27/2023 Refill [facility] [address] [place] [phone] [place] [address] [place] [phone] Osteoporosis Social History Tobacco Use Types [...] 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 [address] [place] [phone] Betsy Smith MD [address] [place] [address] documented as of this encounter Visit Diagnoses Diagnosis Osteoporosis documented in this encounter Additional Health Concerns Assessment Noted Time PHQ-2 Depression Total Score: 2 03/24/20 22 2:18 PM EST documented as of this encounter Care Teams Store Person Relationship Specialty Start Date End Date Betsy Smith MD [address] [place], [place] [phone] PCP - General 02/08/15 documented as of this encounter
--- OUTSIDE RECORDS SUMMARY | 2024-03-25 02:49 | XMS_ITS | Encounter Summary ---
Author Organization [facility] yste Address [address] [place] [address] Care Team Providers Care Treating Plant Operator Name Role Phone Betsy Smith MD Primary Care Provider [phone] Reason for Visit * Reason Comments Med Refill Encounter Details Date Type Department Care Team ([facility] Contact Info) Description 12/30/2021 Refill [facility] [address] [place] [phone] [place] [address] [place] [phone] Osteoporosis Social History Tobacco Use Types [...] 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 Not on le documented as of this encounter Plan of Treatment Upcoming Encounters Date Type Department Care Team ([facility] Contact Info) Description 06/09/2024 3:00 PM EST Office Visit [facility] [address] [place] [phone] Betsy Smith MD [address] [place], [place] [phone] documented as of this encounter Visit Diagnoses Diagnosis Osteoporosis documented in this encounter Care Teams Treating Plant Operator Relationship Specialty Start Date End Date Betsy Smith MD [address] [place] [address] [phone] PCP - General 02/08/15 documented as of this encounter
--- OUTSIDE RECORDS SUMMARY | 2024-03-25 02:49 | XMS_ITS | Encounter Summary ---
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 Not on fi le documented as of this encounter Plan of Treatment Upcoming Encounters Date Type Department Care Team (Late Contact Info) Description 06/09/2024 3:00 PM EST Office Visit [facility] [address] [place] [phone] [place] [address] [place] [phone] documented as of this encounter Procedures Procedure Name Priority Date/Time Associated Diagnosis Comments BASIC METABOLIC PANEL Routine 04/07/2022 11:07 AM EST Stage 3b chronic kidney disease documented in this encounter Results * (ABNORMAL) Basic Metabolic Panel (04/07/2022 11:07 AM EST) Glucose 96 65 - 99 mg/dL 04/08/2022 12:38 AM [facility] BUN 23 8 - 23 mg/dL 04/08/2022 12:38 AM [facility] Creatinine 1.18(H) 0.57 - 1.00 mg/dL 04/08/2022 12:38 AM [facility] Sodium 138 136 - 145 mmol/L 04/08/2022 12:38 AM [facility] Potassium 4.8 3.5 - 5.2 mmol/L 04/08/2022 12:38 AM [facility] Chloride 97(L) 98 - 107 mmol/L 04/08/2022 12:38 AM [facility] CO2 26.1 22.0 - 29.0 mmol/L 04/08/2022 12:38 AM [facility] Calcium 10.4 8.6 - 10.5 mg/dL 04/08/2022 12:38 AM [facility] BUN/Creatinine Ratio 19.5 7.0 - 25.0 04/08/2022 12:38 AM [facility] Anion Gap 14.9 5.0 - 15.0 mmol/L 04/08/2022 12:38 AM [facility] eGFR 45.4(L) >60.0 mL/min/1. 73 04/08/2022 12:38 AM [facility] Comment:National Kidney Foun dation and [place] Society of Nephrology (ASN) Task Force recommended calculation based on the Chronic Kidney Disease Epidemiology Collaboration (CKD-EPI) equation refit without adjustment for race. Blood Venipuncture / Unknown 04/07/2022 11:07 AM EST 04/07/2022 11:07 AM EST Narrative [facility] - 04/08/2022 12:38 AM EST GFR Normal >60 Chronic Kidney Disease <60 Kidney Failure <15 The GFR formula is only valid for adults with stable renal function between ages 18 and 70. us Betsy Smith MD LAB BLOOD ORDERABLES Final Resul t [facility]
[address] [place] [address], documented in this encounter Visit Diagnoses Diagnosis Stage 3b chronic kidney disease documented in this encounter Additional Health Concerns Assessment Noted Time PHQ-2 Depression Total Score: 2 03/24/20 22 2:18 PM EST documented as of this encounter Care Teams Osteopathic Medicine Teacher Relationship Specialty Start Date End Date Betsy Smith MD [address] [place] [address] PCP - General 02/08/15 documented as of this encounter
--- OUTSIDE RECORDS SUMMARY | 2024-03-25 02:49 | XMS_ITS | Encounter Summary ---
Author Organization [facility] yste Address [address] [place] [address] Care Team Providers Care Computer Security Coordinator Name Role Phone Betsy Smith MD Primary Care Provider [phone] Encounter Details Date Type Department Care Team (Late Contact Info) Description 03/14/2021 11:25 AM EST Lab [facility] [address] [place] [id number] B12 deficiency; Stage 3a chronic kidney disease; Hyperlipidemia; Type 2 diabetes mellitus with stage 3b chronic kidney disease, without long-term current use of insulin; Vitamin D deficiency; Hypertension Social History Tobacco Use Types Packs/Day Years Used Date Smoking Tobacco: Never Alcohol Use Standard Drinks/Week Comments Yes 0 (1 standard drink = 0.6 oz pur e alcohol) Social PHQ-2 Answer Date Recorded Retired Total Score 1 03/12/2020 Comments No Sex and Gender Information Value Date Recorded Sex Assigned at Not on file Legal Sex Female 12:10 PM EDT Gender Identity Not on file Sexual Orientation Not on file 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 Not on file Not on le documented as of this encounter Plan of Treatment Upcoming Encounters Date Type Department Care Team ([facility] Contact Info) Description 06/09/2024 3:00 PM EST Office Visit [facility] INTERNAL MEDICINE [address] [place] [address] Betsy Smith MD [address] [place] [address] documented as of this encounter Procedures Procedure Name Priority Date/Time Associated Diagnosis Comments URINALYSIS, MICROSCOPIC ONLY Routine 03/14/2021 11:22 AM EST Type 2 diabetes mellitus with stage 3b chronic kidney disease, without long-term current use of insulin CBC WITH AUTO DIFFERENTIAL Routine 03/14/2021 11:22 AM EST B12 deficiency MICROALBUMIN / CREATININE URINE RATIO Routine 03/14/2021 11:22 AM EST Hypertension VITAMIN D,25-HYDROXY Routine 03/14/2021 11:22 AM EST Vitamin D deficiency URINALYSIS AND MICROSCOPIC Routine 03/14/2021 11:22 AM EST Type 2 diabetes mellitus with stage 3b chronic kidney disease, without long-term current use of insulin URINALYSIS WITHOUT MICROSCOPIC (NO CULTURE) Routine 03/14/2021 11:22 AM EST Type 2 diabetes mellitus with stage 3b chronic kidney disease, without long-term current use of insulin CBC AND DIFFERENTIAL Routine 03/14/2021 11:22 AM EST B12 deficiency TSH Routine 03/14/2021 11:22 AM EST Hyperlipidemia HEMOGLOBIN A1C Routine 03/14/2021 11:22 AM EST Type 2 diabetes mellitus with stage 3b chronic kidney disease, without long-term current use of insulin VITAMIN B12 Routine 03/14/2021 11:22 AM EST B12 deficiency LIPID PANEL Routine 03/14/2021 11:22 AM EST Hyperlipidemia COMPREHENSIVE METABOLIC PANEL Routine 03/14/2021 11:22 AM EST Stage 3a chronic kidney disease documented in this encounter Results * Urinalysis, Microscopic Only - Urine, Clean Catch (03/14/2021 11:22 AM EST) RBC, UA 0-2 None Seen, 0-2 /HPF 03/14/2021 11:45 PM [facility] WBC, UA 0-2 None Seen, 0-2 /HPF 03/14/2021 11:45 PM [facility] Bacteria, UA None Seen None Seen /HPF 03/14/2021 11:45 PM [facility] Squamous Epithelial Cells, UA 0-2 None Seen, 0-2 /HPF 03/14/2021 11:45 PM [facility] Hyaline Casts, UA 3-6 None Seen /LPF 03/14/2021 11:45 PM [facility] Methodology Automated Microscopy 03/14/2021 11:45 PM [facility] Urine Urine specimen collection, clean catch / Unknown Collection / Unknown 03/14/2021 11:22 AM EST 03/14/2021 11:22 AM EST Betsy Smith MD URINE ORDERABLES Final Result [facility]
[address] [place] [address], * Urinalysis without microscopic (no culture) - Urine, Clean Catch (03/14/2021 11:22 AM EST) Color, UA Yellow Yellow, Straw 03/14/2021 11:29 PM [facility] Appearance, UA Clear Clear 03/14/2021 11:29 PM [facility] pH, UA 6.5 5.0 - 8.0 03/14/2021 11:29 PM [facility] Specific [place], UA 1.014 1.005 - 1.030 03/14/2021 11:29 PM [facility] Glucose, UA Negative Negative 03/14/2021 11:29 PM [facility] Ketones, UA Negative Negative 03/14/2021 11:29 PM [facility] Bilirubin, UA Negative Negative 03/14/2021 11:29 PM [facility] Blood, UA Negative Negative 03/14/2021 11:29 PM [facility] Protein, UA Negative Negative 03/14/2021 11:29 PM [facility] Leuk Esterase, UA Negative Negative 03/14/2021 11:29 PM [facility] Nitrite, UA Negative Negative 03/14/2021 11:29 PM [facility] Urobilinogen, UA 0.2 E.U./dL 0.2 - 1.0 E.U./dL 03/14/2021 11:29 PM [facility] Urine Urine specimen collection, clean catch / Unknown Collection / Unknown 03/14/2021 11:22 AM EST 03/14/2021 11:22 AM EST Betsy Smith MD URINE ORDERABLES Final Result [facility]
[address] [place] [address], * CBC Auto Differential (03/14/2021 11:22 AM EST) WBC 7.16 3.40 - 10.80 10*3/mm3 03/14/2021 11:27 PM [facility] RBC 4.29 3.77 - 5.28 10*6/mm3 03/14/2021 11:27 PM [facility] Hemoglobin 12.4 12.0 - 15.9 g/dL 03/14/2021 11:27 PM [facility] Hematocrit 37.4 34.0 - 46.6 % 03/14/2021 11:27 PM [facility] MCV 87.2 79.0 - 97.0 fL 03/14/2021 11:27 PM [facility] MCH 28.9 26.6 - 33.0 pg 03/14/2021 11:27 PM [facility] MCHC 33.2 31.5 - 35.7 g/dL 03/14/2021 11:27 PM [facility] RDW 14.5 12.3 - 15.4 % 03/14/2021 11:27 PM [facility] RDW-SD 46.1 37.0 - 54.0 fl 03/14/2021 11:27 PM [facility] MPV 10.9 6.0 - 12.0 fL 03/14/2021 11:27 PM [facility] Platelets 321 140 - 450 10*3/mm3 03/14/2021 11:27 PM [facility] Neutrophil % 67.9 42.7 - 76.0 % 03/14/2021 11:27 PM [facility] Lymphocyte % 20.3 19.6 - 45.3 % 03/14/2021 11:27 PM [facility] Monocyte % 9.4 5.0 - 12.0 % 03/14/2021 11:27 PM [facility] Eosinophil % 1.3 0.3 - 6.2 % 03/14/2021 11:27 PM [facility] Basophil % 0.8 0.0 - 1.5 % 03/14/2021 11:27 PM [facility] Immature Grans % 0.3 0.0 - 0.5 % 03/14/2021 11:27 PM [facility] Neutrophils, Absolute 4.87 1.70 - 7.00 10*3/mm3 03/14/2021 11:27 PM [facility] Lymphocytes, Absolute 1.45 0.70 - 3.10 10*3/mm3 03/14/2021 11:27 PM [facility] Monocytes, Absolute 0.67 0.10 - 0.90 10*3/mm3 03/14/2021 11:27 PM [facility] Eosinophils, Absolute 0.09 0.00 - 0.40 10*3/mm3 03/14/2021 11:27 PM [facility] Basophils, Absolute 0.06 0.00 - 0.20 10*3/mm3 03/14/2021 11:27 PM EST [facility] Immature Grans, Absolute 0.02 0.00 - 0.05 10*3/mm3 03/14/2021 11:27 PM EST [facility] nRBC 0.0 0.0 - 0.2 /100 WBC 03/14/2021 11:27 PM [facility] Blood Venipuncture / Unknown 03/14/2021 11:22 AM EST 03/14/2021 11:22 AM EST us Betsy Smith MD LAB BLOOD ORDERABLES Final Resul t Performing Organization Address City/[facility]/ZIP Co de Phone Number [facility]
[address] [place] [address], * Microalbumin / Creatinine Urine Ratio - Urine, Clean Catch (03/14/2021 11:22 AM EST) Microalbumin/C reatinine Ratio 26.3 mg/g 03/14/2021 11:52 PM [facility] Creatinine, Urine 87.4 mg/dL 03/14/2021 11:52 PM [facility] Microalbumin, Urine 2.3 mg/dL 03/14/2021 11:52 PM [facility] Urine Urine specimen collection, clean catch / Unknown Collection / Unknown 03/14/2021 11:22 AM EST 03/14/2021 11:22 AM EST us Betsy Smith MD URINE ORDERABLES Final Result [facility]
[address] [place] [address], * (ABNORMAL) Vitamin B12 (03/14/2021 11:22 AM EST) Vitamin B-12 1,482(H) 211 - 946 pg/mL 03/15/2021 12:56 AM EST [facility] Blood Venipuncture / Unknown 03/14/2021 11:22 AM EST 03/14/2021 11:22 AM EST [facility] - 03/15/2021 12:56 AM EST Results may be falsely increased if patient taking Biotin. Betsy Smith MD LAB BLOOD ORDERABLES Final Resul t Performing Organization Address [facility] de Phone Number [facility]
[address] [place] [address], * Vitamin D 25 Hydroxy (03/14/2021 11:22 AM EST) 25 Hydroxy, Vitamin D 44.7 30.0 - 100.0 ng/ml 03/15/2021 12:56 AM EST [facility] Blood Venipuncture / Unknown 03/14/2021 11:22 AM EST 03/14/2021 11:22 AM EST [facility] - 03/15/2021 12:56 AM EST Reference Range for Total Vitamin D 25(OH) Deficiency <20.0 ng/mL Insufficiency 21-29 ng/mL Sufficiency 30-100 ng/mL Toxicity >100 ng/ml Results may be falsely increased if patient taking Biotin. Betsy Smith MD LAB BLOOD ORDERABLES Final Resul t Performing Organization Address [facility] Co de Phone Number [facility]
[address] [place] [address], * (ABNORMAL) Hemoglobin A1c (03/14/2021 11:22 AM EST) Hemoglobin A1C 6.00(H) 4.80 - 5.60 % 03/15/2021 1:36 AM EST [facility] Blood Venipuncture / Unknown 03/14/2021 11:22 AM EST 03/14/2021 11:22 AM EST [facility] - 03/15/2021 1:36 AM EST Hemoglobin A1C Ranges: Increased Risk for Diabetes ??5.7% to 6.4% Diabetes ? >= 6.5% Diabetic Goal ?< 7.0% us Betsy Smith MD LAB BLOOD ORDERABLES Final Resul t Performing Organization Address [facility] Co de Phone Number [facility]
[address] [place] [address], * TSH (03/14/2021 11:22 AM EST) [facility] TSH 1.720 0.270 - 4.200 uIU/mL 03/15/2021 12:12 AM EST [facility] Blood Venipuncture / Unknown 03/14/2021 11:22 AM EST 03/14/2021 11:22 AM EST us Betsy Smith MD LAB BLOOD ORDERABLES Final Resul t Performing Organization Address [facility] de Phone Number [facility]
[address] [place] [address], * (ABNORMAL) Lipid Panel (03/14/2021 11:22 AM EST) [facility] Total Cholesterol 184 0 - 200 mg/dL 03/14/2021 11:56 PM EST [facility] Triglycerides 57 0 - 150 mg/dL 03/14/2021 11:56 PM EST [facility] HDL Cholesterol 90(H) 40 - 60 mg/dL 03/14/2021 11:56 PM EST [facility] LDL Cholesterol 83 0 - 100 mg/dL 03/14/2021 11:56 PM EST [facility] VLDL Cholesterol 11 5 - 40 mg/dL 03/14/2021 11:56 PM [facility] LDL/HDL Ratio 0.92 03/14/2021 11:56 PM EST [facility] Blood Venipuncture / Unknown 03/14/2021 11:22 AM EST 03/14/2021 11:22 AM EST Narrative [facility] - 03/14/2021 11:56 PM EST Cholesterol Reference Ranges (U.S. Department [...] of Health and Human Services ATP III Classifcations) Low ? <40 mg/dl (major risk factor for CHD) High ?>60 mg/dl ('negative' risk factor for CHD) LDL Reference Ranges (U.S. Department of Health and Human Services ATP III Classifcations) Optimal ?<100 mg/dL Near Optimal ? 100-129 mg/dL Borderline High ??130-159 mg/dL High ? 160-189 mg/dL Very High ?>189 mg/dL us Betsy Smith MD LAB BLOOD ORDERABLES Final Resul t [facility]
[address] [place] [address], * (ABNORMAL) Comprehensive Metabolic Panel (03/14/2021 11:22 AM EST) Pathologist [facility] Glucose 101(H) 65 - 99 mg/dL 03/15/2021 12:07 AM EST [facility] BUN 18 8 - 23 mg/dL 03/15/2021 12:07 AM [facility] Creatinine 1.15(H) 0.57 - 1.00 mg/dL 03/15/2021 12:07 AM [facility] Sodium 135(L) 136 - 145 mmol/L 03/15/2021 12:07 AM [facility] Potassium 4.3 3.5 - 5.2 mmol/L 03/15/2021 12:07 AM [facility] Chloride 100 98 - 107 mmol/L 03/15/2021 12:07 AM [facility] CO2 25.5 22.0 - 29.0 mmol/L 03/15/2021 12:07 AM [facility] Calcium 10.2 8.6 - 10.5 mg/dL 03/15/2021 12:07 AM [facility] Total Protein 6.9 6.0 - 8.5 g/dL 03/15/2021 12:07 AM [facility] Albumin 4.50 3.50 - 5.20 g/dL 03/15/2021 12:07 AM [facility] ALT (SGPT) 12 1 - 33 U/L 03/15/2021 12:07 AM [facility] AST (SGOT) 20 1 - 32 U/L 03/15/2021 12:07 AM [facility] Alkaline Phosphatase 54 39 - 117 U/L 03/15/2021 12:07 AM [facility] Total Bilirubin 0.4 0.0 - 1.2 mg/dL 03/15/2021 12:07 AM [facility] eGFR Non Amer 45(L) >60 mL/min/1.7 3 03/15/2021 12:07 AM [facility] Globulin 2.4 gm/dL 03/15/2021 12:07 AM [facility] A/G Ratio 1.9 g/dL 03/15/2021 12:07 AM [facility] BUN/Creatinine Ratio 15.7 7.0 - 25.0 03/15/2021 12:07 AM [facility] Anion Gap 9.5 5.0 - 15.0 mmol/L 03/15/2021 12:07 AM EST [facility] Blood Venipuncture / Unknown 03/14/2021 11:22 AM EST 03/14/2021 11:22 AM EST Narrative [facility] - 03/15/2021 12:07 AM EST GFR Normal >60 Chronic Kidney Disease <60 Kidney Failure <15 us Betsy Smith MD LAB BLOOD ORDERABLES Final Resul t [facility]
[address] [place] [address], documented in this encounter Visit Diagnoses Diagnosis B12 deficiency Stage 3a chronic kidney disease Hyperlipidemia Pure hypercholesterolemia Type 2 diabetes mellitus with stage 3b chronic kidney disease, without long-term current use of insulin Vitamin D deficiency Hypertension Unspecified essential hypertension documented in this encounter Care Teams Computer Security Coordinator Relationship Specialty Start Date End Date Betsy Smith MD [address] [place] [address] PCP - General 02/08/15 documented as of this encounter
--- OUTSIDE RECORDS SUMMARY | 2024-03-25 02:49 | XMS_ITS | Encounter Summary ---
Author Organization [facility] ystem Address [address] [place] [address] Care Team Providers Care Card Doffer Name Role Phone Betsy Smith MD Primary Care Provider [phone] Reason for Visit * Reason Onset Date Comments Med Refill 05/31/2023 Encounter Details Date Type Department Care Team (Late st Contact Info) Description 05/31/2023 Refill [facility] INTERNAL MEDICINE [address] [place] [phone] [place] [address] [place] [id number] Hyperlipidemia; Hypertension Social History Tobacco Use Types Packs/Day [...] 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 Has wellness 06/05/23 and will renew meds at that time. Needs fasting labs so we can renew her medications * Telephone Encounter - Lisa Caldera RegSched Rep - 05/31/2023 1:16 PM EST Caller: Tasneem Perales Relationship: Self Best call back number: [phone] Requested Prescriptions: Requested Prescriptions Pending Prescriptions Disp Refills ezetimibe (Zetia) 10 MG tablet 90 tablet 3 Sig: Take 1 tablet by mouth Daily. irbesartan (AVAPRO) 300 MG tablet 90 tablet 3 Sig: Take 1 tablet by mouth Daily. [facility] be sent[facility] [place] - [facility] TO REGISTERED [facility] - [phone] - [phone] FX Last office visit with prescribing clinician: 03/15/2023 Last telemedicine visit with prescribing clinician: Visit date not found Next office visit with prescribing clinician: 06/05/2023 Additional details provided by patient: THE PATIENT STATES THAT SHE ONLY HAS TWO DAYS LEFT Does the patient have less than a 3 day supply: [x] Yes [] No Would you like a call back once the refill request has been completed: [] Yes [x] No If the office needs to give you a call back, can they leave a voicemail: [] Yes [x] No Jackson Benton Rep 05/31/23 13:18 EST documented in this encounter Plan of Treatment Upcoming Encounters Date Type Department Care Team (Late st Contact Info) Description 06/09/2024 3:00 PM EST Office Visit [facility] INTERNAL MEDICINE [address] [place] [phone] Betsy Smith MD [address] [place] [phone] documented as of this encounter Visit Diagnoses Diagnosis Hyperlipidemia Pure hypercholesterolemia Hypertension Unspecified essential hypertension documented in this encounter Additional Health Concerns Assessment Noted Time PHQ-2 Depression Total Score: 2 03/24/20 22 2:18 PM EST documented as of this encounter Care Teams Card Doffer Relationship Specialty Start Date End Date Betsy Smith MD [address] [place] [id number] PCP - General 02/08/15 documented as of this encounter
--- OUTSIDE RECORDS SUMMARY | 2024-03-25 02:49 | XMS_ITS | Encounter Summary ---
Author Organization [facility] Address [address] [place] [address] Care Team Providers Care Presentation Designer Name Role Phone Betsy Smith MD Primary Care Provider [phone] Reason for Referral * Diagnostic Imaging (Routine) - Closed Specialty Diagnoses / Procedures Referred By Contac t Referred To Contact Radiology Diagnoses Menopause Age-related osteoporosis without current pathological fracture Procedures DEXA Bone Density Axial Betsy Smith MD [address] [place] [address] Phone: tel: fax: [address] [address] Phone: tel: Referral ID Status Reason Start Date Expiration Date Visits Re quested Visits Authorized [id number] Closed 09/22/2022 09/22/2023 1 1 Reason for Visit * Reason Comments Diabetes Hypertension Encounter Details Date Type Department Care Team ([facility] st Contact Info) Description 09/22/2022 1:30 PM EDT Office Visit [facility] INTER[facility] MEDICINE [address] [place] [phone] Betsy Smith MD [address] [place] [address] Type 2 diabetes mellitus with stage 3b chronic kidney disease, without long-term current use of insulin (Primary Dx); Hypertension; Menopause; Osteoporosis; Need for vaccination Social History Tobacco Use Types Packs/Day Years Used Date Smoking Tobacco: Never Tobacco Cessation:Counseling Given: Not Answered Alcohol Use Standard Drinks/Week Comments Yes 0 [...] 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 Diabetes ??? Hypertension History of Present Illness 87 y.o. woman presents for f/u on DM and BP. Review of Systems Denies CP, palpitations, SOB. All other ROS reviewed and negative. Current Outpatient Medications: ??? alendronate (FOSAMAX) 70 MG weekly ??? calcium carbonate (OS-ANUEL) 600 MG BID ??? cholecalciferol (VITAMIN D3) 1000 units QD ??? ezetimibe (Zetia) 10 MG QD ??? irbesartan (AVAPRO) 300 MG QD ??? metFORMIN ER 750 MG 2 QD ??? ICAPS AREDS 2 PO QD ??? Smooth Move Tea QHS ??? Omeprazole 20 MG QD ??? pioglitazone (ACTOS) 30 MG QD VITALS: BP 128/66 Pulse 66 Ht 166.4 cm (65.5 ) Wt 70.3 kg (155 lb) SpO2 97% BMI 25.40 kg/m?? Physical Exam Vitals and nursing note [...] orders placed or performed in visit on 09/22/22 POC Glycosylated Hemoglobin (Hb A1C) Specimen: Blood Result Value Ref Range Hemoglobin A1C 6.3 % Lot Number [id number] Expiration Date 06/06/2024 Results for orders placed or performed in [...] 15.0 mmol/L eGFR 45.4 (L) >60.0 mL/min/1.73 03/24/22 A1C 6.1 ASSESSMENT/PLAN Diagnoses and all orders for this visit: 1. Type 2 diabetes mellitus with stage 3b chronic kidney disease, without long- term current use of insulin (Primary) Assessment & Plan: BG control stable with A1C 6.3; cont met ER 750mg 2 QD and amita 30mg QD; encouraged reg phys activity to decr insulin resistance, moderation in unhealthy starches/sweets; f/u A1C in 6 mos Orders: - POC Glycosylated Hemoglobin (Hb A1C) 2. Hypertension Assessment & Plan: BP elevated, improved on repeat; cont irbesartan 300mg QD; rec cont home monitoring with goal < 130/80 3. Menopause - DEXA Bone Density Axial; Future 4. Osteoporosis Assessment & Plan: Overdue for DEXA; remains on alendronate 70mg weekly with Ca/vit D Orders: - DEXA Bone Density Axial; Future 5. Need for vaccination - COVID-19 Bivalent ([employer]) 12+yrs FOLLOW-UP 1. Health maintenance - COVID19 vacc done, including 4th dose booster, but strongly rec getting bivalent vaccine - GIVEN TODAY; also reminder again she is overdue for DEXA - escribed; rec flu vacc and RSV vacc in the fall 2. RTC for next wellness 04/06/23; fasting labs prior to appt (CBC, CMP, TSH, lipids, UA/micro, microalb, A1C, vit D, B12) Electronically signed by: Betsy Smith MD, FACP 09/22/2022 * Maye Salazar MA - 09/22/2022 1:30 PM EDT Immunization Immunization performed in left deltoid by Maye Salazar MA. Patient tolerated the procedure well without complications. 09/22/22 Maye Salazar MA * Betsy Smith MD - 09/20/2022 11:15 PM EDTAssociated Problem(s): Osteoporosis Overdue for DEXA; remains on alendronate 70mg weekly with Ca/vit D * Betsy Smith MD - 09/20/2022 11:11 PM EDTAssociated Problem(s): Type 2 diabetes mellitus with stage 3b chronic kidney disease, without long-term current use of insulin BG control stable with A1C 6.3; cont met ER 750mg 2 QD and amita 30mg QD; encouraged reg phys activity to decr insulin resistance, moderation in unhealthy starches/sweets; f/u A1C in 6 mos * Betsy Smith MD - 09/20/2022 11:08 PM EDTAssociated Problem(s): Hypertension BP elevated, improved on repeat; cont irbesartan 300mg QD; rec cont home monitoring with goal < 130/80 documented in this encounter Plan of Treatment Upcoming Encounters Date Type Department Care Team (Late st Contact Info) Description 06/09/2024 3:00 PM EST Office Visit [facility] MED[facility]INE [address] [place] [phone] Betsy Smith MD [address] [place] [address] documented as of this encounter Procedures Procedure Name Priority Date/Time Associated Diagnosis Comments POCT GLYCOSYLATED HEMOGLOBIN (HGB A1C) Routine 09/22/2022 1:14 PM EDT Type 2 diabetes mellitus with stage 3b chronic kidney disease, without long-term current use of insulin documented in this encounter Results * DEXA [...] fall-prevention measurements. ??The National Osteoporosis Foundation recommends (http://www.nof.org/hcp/practice/culknvpo-mzj-yexjwyox-guidelines/clinicians-hussein de) that FDA-approved medical therapies be considered [...] the left hip with 95% confidence is 0.897620 gm/cm2 at the hip and 0.045783 g/cm2 at the lumbar spine. Electronically Signed: Colt Leavitt 11/20/2022 2:54 PM EDT Workstation ID: [id number] Narrative 11/20/2022 2:54 PM EDT DUAL-ENERGY X-RAY [...] normal patients. According to criteria established by the[facility], patients with T-scores between 1.0 [...] exercises and fall-prevention measurements. The NationalOsteoporosis Foundation recommends(http://www.nof.org/hcp/practice/kwzfepxd-wvj-otafgsxq-guidelines/clin ician s-guide) that FDA-approved medical therapies be [...] at the left hipwith 95% confidence is 0.139987 gm/cm2 at the hip and 0.013702 g/cm2 atthe lumbar spine. Electronically Signed: Colt Leavitt 11/20/2022 2:54 PM EDT Workstation ID: [id number] Betsy Smith MD IM DXA ORDERABLES Final Result * POC Glycosylated Hemoglobin (Hb A1C) (09/22/2022 1:14 PM EDT) Hemoglobin A1C 6.3 % [facility] Lot Number [id number] [facility] Expiration Date 06/06/2024 [facility] Blood 09/22/2022 1:14 PM EDT us Betsy Smith MD POINT OF CARE TEST ORDERABLES Fi nal Result [facility]
[address] [place] [phone], documented in this encounter Visit Diagnoses Diagnosis Type 2 diabetes mellitus with stage 3b chronic kidney disease, without long-term current use of insulin- Primary Hypertension Unspecified essential hypertension Menopause Symptomatic menopausal or female climacteric states Osteoporosis Need for vaccination Need for prophylactic vaccination and inoculation against unspecified single disease Menopause Symptomatic menopausal or female climacteric states Osteoporosis documented in this encounter Additional Health Concerns Assessment Noted Time PHQ-2 Depression Total Score: 2 03/24/20 22 2:18 PM EST documented as of this encounter Care Teams Presentation Designer Relationship Specialty Start Date End Date Betsy Smith MD [address] [place] [address] PCP - General 02/08/15 documented as of this encounter
--- OUTSIDE RECORDS SUMMARY | 2024-03-25 02:49 | XMS_ITS | Encounter Summary ---
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 No follow up questions at this time. * Telephone Encounter - Sloane Ortega MA - 04/08/2022 10:23 AM EST Left message for patient to return phone call regarding results. Office number given. * Telephone Encounter - Sloane Ortega MA - 04/08/2022 10:23 AM EST ----- Message from Betsy Smith MD sent at 04/08/2022 1:29 AM EST ----- Kidney function improved but not back to baseline abnormal level; cont to drink enough water daily and avoid NSAIDs (ibuprofen or naproxen) documented in this encounter Plan of Treatment Upcoming Encounters Date Type Department Care Team (Late st Contact Info) Description 06/09/2024 3:00 PM EST Office Visit [facility] [address] [place] [phone] Betsy Smith MD [address] [place] [phone] documented as of this encounter Visit Diagnoses Not on filedocumented in this encounter Additional Health Concerns Assessment Noted Time PHQ-2 Depression Total Score: 2 03/24/20 22 2:18 PM EST documented as of this encounter Care Teams Hair Rooting Machine Operator Relationship Specialty Start Date End Date Betsy Smith MD [address] [place] [address] [phone] PCP - General 02/08/15 documented as of this encounter
--- OUTSIDE RECORDS SUMMARY | 2024-03-25 02:49 | XMS_ITS | Encounter Summary ---
Author Organization [facility] ystem Address [address] [place] [address] Care Team Providers Care Ballistics Tester Name Role Phone Betsy Smith MD Primary Care Provider [phone] Reason for Visit * Reason Comments Diabetes Encounter Details Date Type Department Care Team ([facility] st Contact Info) Description 09/19/2021 1:45 PM EDT Office Visit [facility] INTERNAL MEDICINE [address] [place] [phone] [place] [address] [place] [address] Type 2 diabetes mellitus with stage 3b chronic kidney disease, without long-term current use of insulin (Primary Dx); Hypertension Social History Tobacco Use Types Packs/Day [...] Sign Reading Time Taken Comments Blood Pressure 124/64 09/19/2021 1:49 PM EDT Pulse 63 09/19/2021 1:49 PM EDT Temperature - - Respiratory Rate - - Oxygen Saturation 97% 09/19/2021 1:49 PM EDT Inhaled Oxygen Concentration - - Weight 72.6 kg (160 lb) 09/19/2021 1:49 PM EDT Height 166.4 cm (5' 5.5 ) 09/19/2021 1:49 PM EDT Body Mass Index 26.22 09/19/2021 1:49 PM EDT documented in this encounter Progress Notes * Betsy Smith MD - 09/19/2021 1:45 PM EDT Chief Complaint Patient presents with ??? Diabetes History of Present Illness 86 y.o. woman presents for DM follow-up. Review of Systems Denies falls, CP, palpitations, SOB. All other ROS reviewed and negative. Current Outpatient Medications: ??? alendronate (FOSAMAX) 70 MG weekly ??? calcium carbonate (OS-ANUEL) 600 MG BID ??? cholecalciferol (VITAMIN D3) 1000 units QD ??? ezetimibe (Zetia) 10 MG QD ??? irbesartan (AVAPRO) 300 MG QD ??? metFORMIN ER (GLUCOPHAGE-XR) 750 MG 2 QD ??? Smooth Move Tea QHS ??? Omeprazole 20 MG Tablet 2 QD ??? pioglitazone (ACTOS) 30 MG QD VITALS: BP 124/64 Pulse 63 Ht 166.4 cm (65.5 ) Wt 72.6 kg (160 lb) SpO2 97% BMI 26.22 kg/m?? Physical Exam Vitals and nursing note [...] orders placed or performed in visit on 09/19/21 POC Glycosylated Hemoglobin (Hb A1C) Specimen: Blood Result Value Ref Range Hemoglobin A1C 6.0 % Lot Number [id number] Expiration Date 05/25/2023 03/14/21 Cr 1.15, GFR 45; A1C 6.0 ASSESSMENT/PLAN Diagnoses and all orders for this visit: 1. Type 2 diabetes mellitus with stage 3b chronic kidney disease, without long- term current use of insulin (HCC) (Primary) Assessment & Plan: BG control stable with A1C 6.0; cont met ER 750mg 2 QD and amita 30mg QD; encouraged reg phys activity to decr insulin resistance, moderation in unhealthy starches/sweets; f/u A1C in 6 mos Orders: - POC Glycosylated Hemoglobin (Hb A1C) 2. Hypertension Assessment & Plan: BP stable 124/64; cont irbesartan 300mg QD FOLLOW-UP 1. Health maintenance - COVID19 vacc done, incl 3rd dose Moderna; rec 4th dose COVID19 booster per recent CDC updated guidelines 2. RTC for next wellness 03/24/22; fasting labs prior to appt (CBC, CMP, TSH, lipids, UA/micro, microalb, A1C, vit D, B12) Electronically signed by: Betsy Smith MD, FACP 09/19/2021 * Betsy Smith MD - 09/17/2021 4:43 PM EDTAssociated Problem(s): Type 2 diabetes mellitus with stage 3b chronic kidney disease, without long-term current use of insulin BG control stable with A1C 6.0; cont met ER 750mg 2 QD and amita 30mg QD; encouraged reg phys activity to decr insulin resistance, moderation in unhealthy starches/sweets; f/u A1C in 6 mos * Betsy Smith MD - 09/17/2021 4:43 PM EDTAssociated Problem(s): Hypertension BP stable 124/64; cont irbesartan 300mg QD documented in this encounter Plan of Treatment Upcoming Encounters Date Type Department Care Team (Late st Contact Info) Description 06/09/2024 3:00 PM EST Office Visit [facility] [address] [place] [phone] [place] [address] [place] [address] [phone] documented as of this encounter Procedures Procedure Name Priority Date/Time Associated Diagnosis Comments POCT GLYCOSYLATED HEMOGLOBIN (HGB A1C) Routine 09/19/2021 2:06 PM EDT Type 2 diabetes mellitus with stage 3b chronic kidney disease, without long-term current use of insulin documented in this encounter Results * POC Glycosylated Hemoglobin (Hb A1C) (09/19/2021 2:06 PM EDT) Hemoglobin A1C 6.0 % [facility] Lot Number [id number] [facility] Expiration Date 05/25/2023 [facility] Blood 09/19/2021 2:06 PM EDT Betsy Smith MD POINT OF CARE TEST ORDERABLES Fi nal Result [facility]
[address] [place] [address], documented in this encounter Visit Diagnoses Diagnosis Type 2 diabetes mellitus with stage 3b chronic kidney disease, without long-term current use of insulin- Primary Hypertension Unspecified essential hypertension documented in this encounter Care Teams Ballistics Tester Relationship Specialty Start Date End Date Betsy Smith MD [address] [place] [phone] PCP - General 02/08/15 documented as of this encounter
--- OUTSIDE RECORDS SUMMARY | 2024-03-25 02:49 | XMS_ITS | Encounter Summary ---
Author Organization [facility] ystem Address [address] [place] [address] Care Team Providers Care Coremaker Bench Name Role Phone Betsy Smith MD Primary Care Provider [phone] Reason for Visit * Reason Comments Med Refill Encounter Details Date Type Department Care Team (Late st Contact Info) Description 01/27/2023 Refill [facility] INTER[facility] MEDICINE [address] [place] [phone] [place] [address] [place] [address] Type 2 diabetes mellitus with stage 3b chronic kidney disease, without long-term current use of insulin; Hyperlipidemia; Hypertension Social History Tobacco Use Types [...] 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 documented as of this encounter Miscellaneous Notes * Telephone Encounter - Brittany Hastings MA - 01/28/2023 8:27 PM EDT Due 03/24 documented in this encounter Plan of Treatment Upcoming Encounters Date Type Department Care Team (Late st Contact Info) Description 06/09/2024 3:00 PM EST Office Visit [facility] [address] [place] [phone] Betsy Smith MD [address] [place] [phone] documented as of this encounter Visit Diagnoses Diagnosis Type 2 diabetes mellitus with stage 3b chronic kidney disease, without long-term current use of insulin Hyperlipidemia Pure hypercholesterolemia Hypertension Unspecified essential hypertension documented in this encounter Additional Health Concerns Assessment Noted Time PHQ-2 Depression Total Score: 2 03/24/20 22 2:18 PM EST documented as of this encounter Care Teams Coremaker Bench Relationship Specialty Start Date End Date Betsy Smith MD [address] [place] [address] PCP - General 02/08/15 documented as of this encounter
--- OUTSIDE RECORDS SUMMARY | 2024-03-25 02:49 | XMS_ITS | Encounter Summary ---
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 MRI to [phone] * Telephone Encounter - Betsy Smith MD - 03/15/2023 8:35 PM EST Yes - but I had not finished her note. MRI L-spine has been ordered for [facility]. I also sent a message about faxing her wellness labs to [facility] * Telephone Encounter - Maye Salazar MA - 03/15/2023 2:57 PM EST Did you all discuss an MRI being ordered? * Telephone Encounter - Daniel Frias RegSched Rep - 03/15/2023 1:58 PM EST The patient tried to go get her MRI and scheduling at [facility], they are requesting a written order for MRI before completing it. Phone for Hospital: documented in this encounter Plan of Treatment Upcoming Encounters Date Type Department Care Team (Late st Contact Info) Description 06/09/2024 3:00 PM EST Office Visit [facility] MEDIC[facility] [address] [place] [phone] Betsy Smith MD [address] [place] [phone] documented as of this encounter Visit Diagnoses Not on filedocumented in this encounter Additional Health Concerns Assessment Noted Time PHQ-2 Depression Total Score: 2 03/24/20 22 2:18 PM EST documented as of this encounter Care Teams Scale Balancer Relationship Specialty Start Date End Date Betsy Smith MD [address] [place] [id number] PCP - General 02/08/15 documented as of this encounter
--- OUTSIDE RECORDS SUMMARY | 2024-03-25 02:49 | XMS_ITS | Encounter Summary ---
Author Organization [facility] ystem Address [address] [place] [address] Care Team Providers Care Wax Molder Name Role Phone Betsy Smith MD Primary Care Provider [phone] Encounter Details Date Type Department Care Team (Late st Contact Info) Description 04/02/2023 Refill [facility] INTER[facility] MEDICINE [address] [place] [phone] [place] [address] [place] [address] Type 2 diabetes mellitus with stage 3b chronic kidney disease, without long-term current use of insulin Social History Tobacco Use Types Packs/Day Years [...] 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 documented as of this encounter Miscellaneous Notes * Telephone Encounter - Betsy Smith MD - 04/02/2023 5:46 PM EST Still waiting on MRI results (addressed in other msg - need results) Regarding metformin ER 2 QD #180, 0 RF - will refill but since she rescheduled her wellness to more than 2 mos from now, she needs to go ahead and get fasting labs. Ok to fax lab orders to her to get at [facility] if she wants * Telephone Encounter - Jeannie Alicea MA - 04/02/2023 3:15 PM EST The MRI is being addressed through another open encounter. Please address the request for prednisone refill and the quantity and refills for the Metformin. * Telephone Encounter - Loly Hackett RegSched Rep - 04/02/2023 2:17 PM EST PATIENT CALLED REGARDING HER MRI THIS MORNING. SHE SAYS THE RESULTS WERE SENT OVER TO DR. SMITH. SHE WOULD LIKE A CALL BACK WHENEVER DR. SMITH HAS HAD A CHANCE TO REVIEW THE RESULTS TO DETERMINE IF SHE SHOULD GO IN FOR THERAPY OR SURGERY. SHE HAD TO RESCHEDULE HER APPOINTMENT FOR 04/06 DUE TO BEING IN TOO MUCH PAIN TO WALK. PATIENT IS ALSO REQUESTING REFILLS ON HER CURRENT MEDS, INCLUDING METFORMIN AND PREDNISONE. PATIENT WOULD LIKE A CALL BACK SHE IS UNFAMILIAR WITH USING [employer]CHART. documented in this encounter Plan of Treatment Upcoming Encounters Date Type Department Care Team (Late st Contact Info) Description 06/09/2024 3:00 PM EST Office Visit [facility] INTER[facility] MEDIC[facility] [address] [place] [phone] Betsy Smith MD [address] [place] [phone] documented as of this encounter Visit Diagnoses Diagnosis Type 2 diabetes mellitus with stage 3b chronic kidney disease, without long-term current use of insulin documented in this encounter Additional Health Concerns Assessment Noted Time PHQ-2 Depression Total Score: 2 03/24/20 22 2:18 PM EST documented as of this encounter Care Teams Wax Molder Relationship Specialty Start Date End Date Betsy Smith MD [address] [place] [address] PCP - General 02/08/15 documented as of this encounter
--- OUTSIDE RECORDS SUMMARY | 2024-03-25 02:49 | XMS_ITS | Encounter Summary ---
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 documented in this encounter Plan of Treatment Upcoming Encounters Date Type Department Care Team (Late st Contact Info) Description 06/09/2024 3:00 PM EST Office Visit [facility] INTER[facility] MED[facility] [address] [place] [phone] Betsy Smith MD [address] [place] [phone] documented as of this encounter Visit Diagnoses Diagnosis Type 2 diabetes mellitus with stage 3b chronic kidney disease, without long-term current use of insulin documented in this encounter Care Teams Hr Business Partner Relationship Specialty Start Date End Date Betsy Smith MD [address] [place] [phone] PCP - General 02/08/15 documented as of this encounter
--- OUTSIDE RECORDS SUMMARY | 2024-03-25 02:49 | XMS_ITS | Encounter Summary ---
[facility] Address [address] [place] [address] Care Team Providers Care Paper Cone Maker Name Role Phone Betsy Smith MD Primary Care Provider [phone] Reason for Referral * Physical Therapy (Routine) - Closed Specialty Diagnoses / Procedures Referred By Contac t Referred To Contact Physical Therapy Diagnoses Pain of left hip Left-sided low back pain without sciatica, unspecified chronicity Procedures VA OFFICE/OUTPATIENT NEW MODERATE MDM 45-59 MINUTES Betsy Smith MD [address] [place] [phone] Phone: tel: fax: [address] [phone] Phone: tel: Referral ID Status Reason Start Date Expiration Date V isits Requested Visits Authorized [id number] Closed Specialty Services Required 03/15/2023 03/14/2024 1 1 Reason for Visit * Reason Comments Hip Pain Encounter Details Date Type Department Care Team (Latest Contact Info) Description 03/15/2023 9:15 AM EST Office Visit [facility] INTER[facility] MED[facility]INE [address] [place] [phone] Betsy Smith MD [address] [place] [phone] Pain of left hip (Primary Dx); Left-sided low back pain without sciatica, unspecified chronicity; Hypertension; Osteoarthritis of left hip; Non-traumatic subconjunctival hemorrhage of right eye; Vaccine counseling; Need for influenza vaccination Social History Tobacco Use Types Packs/Day [...] 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 Not on file Not on fi le documented as of this encounter Last Filed Vital Signs Vital Sign Reading Time Taken Comments Blood Pressure 148/80 03/15/2023 9:32 AM EST Pulse 75 03/15/2023 9:32 AM EST Temperature - - Respiratory Rate - - Oxygen Saturation 98% 03/15/2023 9:32 AM EST Inhaled Oxygen Concentration - - Weight 68.5 kg (151 lb) 03/15/2023 9:32 AM EST Height 166.4 cm (5' 5.5 ) 03/15/2023 9:32 AM EST Body Mass Index 24.75 03/15/2023 9:32 AM EST documented in this encounter Progress Notes * Besty Smith MD - 03/15/2023 7:51 PM ESTAssociated Problem(s): Osteoarthritis of left hip Reviewed left hip XR and CT results, noting severe degen changes albeit patient reports no hip painat all prior to fall; has decreased external rotation likely due to the OA in the hip; RX rolling walker * Betsy Smith MD - 03/15/2023 9:15 AM EST Images from the original note were not included. Chief Complaint Patient presents with Hip Pain History of Present Illness 88 y.o. female ,accompanied by her son Trev, presents for further eval of left hip, back, and leg pain. HPI started about 2 mos ago after a fall (01/23/23). She was washing a rug on her deck when she got caught up in it; the right leg went off the edge but the left leg got crushed under herself. She noticed a vein popping up in the left lower leg and thought left leg pain would just resolve. Subsequently developed left leg hot feeling and then left low back pain. Reports left leg does not feel warm to touch but feels hot on the inside. Did not have specific pain in the joints, incl no hip, knee, or ankle pain. Also reports no hip, knee, or ankle swelling. Notes shuffling gait due to pain; not certain about leg weakness. Notes some improvement with heating pad and motrin or aleve. Notes tylenol is ineffective. Went to [facility] 1 month after fall and Xray showed arthritis changes (02/15/23). Was RX'dtramadol TID x 1 week. Then went back to aleve BID for about 2 wks. With persistent left leg pain and now back pain, went back to [facility] and had CT performed and just got another tramadol RX a few days ago(03/13/23). Thinks tramadol is causing urinary incontinence. Despite CT showing severe L hip degen changes, patient reports absolutely no hip pain prior to thisfall. Was trying to get on riding mower and couldn't move leg to get off. Is borrowing a rollator and requesting RX to get her own. Regarding her right eye, noticed red spot about 4 days ago; family member gave her some eye drops and redness went away. It recurred yesterday; no assoc'd pain or visual changes. Review of Systems ROS (+) for left low back, left hip pain, and left leg pain as noted. Reports left leg feels hot toher without assoc'd numbness/tingling or burning pain. Denies specifically hip or knee pain nor anyassoc'd swelling. ROS (+) for abnl gait due to left leg pain. ROS (+) for new daytime urin incontinence whenever she takes tramadol. All other ROS reviewed and negative. Current Outpatient Medications: alendronate 70 MG weekly calcium carbonate (OS-ANUEL) 600 MG BID cholecalciferol (VITAMIN D3) 1000 units QD ezetimibe 10 MG QD irbesartan 300 MG QD metFORMIN ER 750 MG 2 QD ICAPS AREDS 2 QD NON FORMULARY, Smooth Move Tea QHS Omeprazole 20 MG 2 QD pioglitazone 30 MG QD VITALS: BP 148/80 Pulse 75 Ht 166.4 cm (65.5 ) Wt 68.5 kg (151 lb) SpO2 98% BMI 24.75 kg/m?? Physical Exam Vitals and nursing note reviewed. Constitutional: General: She is not in acute distress. Appearance: Normal appearance. She is not ill-appearing. Eyes: Extraocular Movements: Extraocular movements intact. Conjunctiva/sclera: Conjunctivae normal. Comments: R subconjunctial hemorrhage R eye at inner lower quadrant adjacent to iris Pulmonary: Effort: Pulmonary effort is normal. No respiratory distress. Musculoskeletal: General: Tenderness (left hip decreased ROM with external rotation about 30 degrees outward from midline, internal rotation also intact) and deformity (bony arthritis changes at knees bilaterally without swelling) present. Right lower leg: No edema. Left lower leg: No edema. Comments: No tenderness with palpation of the greater trochanters bilaterally; neg straight leg test bilaterally; left groin pain with external left hip rotation No point tenderness at the lumbar vertebral spine nor the left sacroiliac joint; pain is at the left lumbar paraspinal muscles just above the waistline, but not reproducible with palpation Neurological: Mental Status: She is alert. Mental status is at baseline. Gait: Gait abnormal (shuffling gait; using rolling walker). Psychiatric: Mood and Affect: Mood normal. Behavior: Behavior normal. LABS Results for orders placed or performed in visit on 09/22/22 POC Glycosylated Hemoglobin (Hb A1C) Specimen: Blood Result Value Ref Range Hemoglobin A1C 6.3 % Lot Number [id number] Expiration Date 06/06/2024 02/15/23 L hip Xray - degen changes, poorly mineralized bones 03/08/23 CT hip - severe degen changes ASSESSMENT/PLAN Diagnoses and all orders for this visit: 1. Pain of left hip (Primary) Comments: s/p fall, left hip/back, leg pain, now w/ abnl gait and heat feeling in leg; OA on XR; proceed w/ PT, pred taper #30, 0RF, and MRI L-spine Orders: - predniSONE (DELTASONE) 10 MG tablet; 4 PO QD for 3 days, then 3 PO QD for 3 days, then 2 PO QD for 3 days, then 1 PO QD for 3 days, then stop Dispense: 30 tablet; Refill: 0 - Ambulatory Referral to Physical Therapy Evaluate and treat (and HEP); Heat (all modalities indicated), Electrotherapy; Cross Fiber; Stretching, ROM 2. Left-sided low back pain without sciatica, unspecified chronicity Comments: likely secondary to left hip/leg pain after fall; RX pred taper #30, 0RF; cont heating pad; add topical creams or patche; PT referral and MRI L-spine Orders: - predniSONE (DELTASONE) 10 MG tablet; 4 PO QD for 3 days, then 3 PO QD for 3 days, then 2 PO QD for 3 days, then 1 PO QD for 3 days, then stop Dispense: 30 tablet; Refill: 0 - Ambulatory Referral to Physical Therapy Evaluate and treat (and HEP); Heat (all modalities indicated), Electrotherapy; Cross Fiber; Stretching, ROM 3. Hypertension Assessment & Plan: BP mildly elevated, likely exac'd by left leg/hip/back pain; cont irbesartan 300mg QD; goal < 130/80; f/u in 1 month with next wellness 4. Osteoarthritis of left hip Assessment & Plan: Reviewed left hip XR and CT results, noting severe degen changes albeit patient reports no hip painat all prior to fall; has decreased external rotation likely due to the OA in the hip; RX rolling walker 5. Non-traumatic subconjunctival hemorrhage of right eye Comments: asx, benign and reassurance given 6. Vaccine counseling Comments: rec flu vacc (given today), COVID19 vacc (none available in office today), and RSV vacc - get at pharmacy 7. Need for influenza vaccination - Fluzone High-Dose 65+yrs - cont'd left hip, leg, back pain s/p fall: complains of heat sensation in the left leg without numbness/tingling, pins/needles, or burning; now with secondary left low back pain and shuffling gait; already with baseline degen changes although she was not symptomatic in the hip until the fall; discussed likely pulled tendon/ligament but also concern for lumbar pathology with heat sensation in left leg, leg pain, and now secondary weakness; RX pred taper #30, 0RF (can resume aleve 1-2 BID prn after finishing prednisone); cont heat vs ice, pt notes ineffectiveness of tylenol; rec topical creams, such as biofreeze, salonpas patches, icy hot; RX for rolling walker; MRI lumbar spine ordered as well (to get at [facility]) FOLLOW-UP Health maintenance - rec flu vaccine (given today), COVID19 vaccine, and RSV vaccine, counseling given - get at pharmacy; reminder needs annual DM eye exam (need office note) RTC for next wellness 04/06/23; fasting labs prior to appt (CBC, CMP, TSH, lipids, UA/micro, microalb, A1C, vit D, B12) and BP f/u and f/u on left leg pain Electronically signed by: Betsy Smith MD, FACP 03/15/2023 * Betsy Smith MD - 03/13/2023 12:01 PM ESTAssociated Problem(s): Hypertension BP mildly elevated, likely exac'd by left leg/hip/back pain; cont irbesartan 300mg QD; goal < 130/80; f/u in 1 month with next wellness documented in this encounter Plan of Treatment Upcoming Encounters Date Type Department Care Team (Late st Contact Info) Description 06/09/2024 3:00 PM EST Office Visit [facility] [address] [place] [phone] Betsy Smith MD [address] [place] [phone] documented as of this encounter Visit Diagnoses Diagnosis Pain of left hip- Primary Left-sided low back pain without sciatica, unspecified chronicity Hypertension Unspecified essential hypertension Osteoarthritis of left hip Non-traumatic subconjunctival hemorrhage of right eye Vaccine counseling Need for influenza vaccination Need for prophylactic vaccination and inoculation against influenza documented in this encounter Additional Health Concerns Assessment Noted Time PHQ-2 Depression Total Score: 2 03/24/20 22 2:18 PM EST documented as of this encounter Care Teams Paper Cone Maker Relationship Specialty Start Date End Date Betsy Smith MD [address] [place] [phone] PCP - General 02/08/15 documented as of this encounter
--- OUTSIDE RECORDS SUMMARY | 2024-03-25 02:49 | XMS_ITS | Encounter Summary ---
[facility] Organization [facility] Address [address] [place] [address] Care Team Providers Care Furniture Servicer Name Role Phone Betsy Smith MD Primary Care Provider [phone] Reason for Visit * Reason Comments Medicare Wellness-subsequent Diabetes Encounter Details Date Type Department Care Team (Late st Contact Info) Description 03/24/2022 2:00 PM EST Office Visit [facility] INTERNAL MEDICINE [address] [place] [phone] Betsy Smith MD [address] [place] [address] Medicare annual wellness visit, subsequent (Primary Dx); Hypertension; Hyperlipidemia; B12 deficiency; Vitamin D deficiency; Stage 3a chronic kidney disease; Osteoporosis; Type 2 diabetes mellitus with stage 3b chronic kidney disease, without long-term current use of insulin; Sensorineural hearing loss (SNHL) of both ears; Overflow incontinence of urine; Early dry stage nonexudative age-related macular degeneration of both eyes Social History Tobacco Use Types Packs/Day [...] 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 Not on file Not on fi le documented as of this encounter Last Filed Vital Signs Vital Sign Reading Time Taken Comments Blood Pressure 148/82 03/24/2022 2:09 PM EST Pulse 70 03/24/2022 2:09 PM EST Temperature - - Respiratory Rate - - Oxygen Saturation 100% 03/24/2022 2:09 PM EST Inhaled Oxygen Concentration - - Weight 71.7 kg (158 lb) 03/24/2022 2:09 PM EST Height 166.4 cm (5' 5.5 ) 03/24/2022 2:09 PM EST Body Mass Index 25.89 03/24/2022 2:09 PM EST documented in this encounter Progress Notes * Betsy Smith MD - 03/24/2022 10:17 PM ESTAssociated Problem(s): 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 Duque recs to take AREDS2 vitamins * Betsy Smith MD - 03/24/2022 10:14 PM ESTAssociated Problem(s): Overflow incontinence of urine Reviewed diuretic effect of coffee, likely exacerbating her incontinence., therefore should cut back coffee and caffeine intake; rec time bathroom breaks for evacuating bladder only when full; f/u in2 mos * Betsy Smith MD - 03/24/2022 10:13 PM ESTAssociated Problem(s): Type 2 diabetes mellitus with stage 3b chronic kidney disease, without long-term current use of insulin BG control stable with A1C 6.1; cont met ER 750mg 2 QD; encouraged reg phys activity to decr insulin resistance, moderation in unhealthy starches/sweets; f/u A1C in 6 mos * Betsy Smith MD - 03/24/2022 10:12 PM ESTAssociated Problem(s): Osteoporosis Calcium and vitamin D supplementation with weight-bearing exercise and alendronate 70mg weekly #13,3RF; DEXA ordered - counseling with patient re: fx risk evaluation/reduction * Betsy Smith MD - 03/24/2022 10:10 PM ESTAssociated Problem(s): Medicare annual wellness visit, subsequent Health maintenance - COVID19 vacc done, incl 4th dose Moderna; rec proceeding with new COVID19 vaccand updated flu vacc - she would like to get at pharmacy; Prevnar 02/18; PVX 03/16; Tdap 05/27 (nextTd due 2030), Zostavax 09/12, Shingrix and HAV done; no further mammos, Paps cn colonosc per patientunelss abnlities; DEXA ordered (last 06/26),; colonosc 2007, NEG cologuard 03/25/18; eye exam w/ 03/08/22 (no DM retinopathy); dental exam 07/26; (+)seat belt use Consultants: Patient Care Team: Betsy Smith MD as PCP - Ed Aragon MD as Consulting Physician (Ophthalmology) Julito Shen MD as Consulting Physician (Gastroenterology) Kristal Valente (Audiology) * Betsy Smith MD - 03/24/2022 10:10 PM ESTAssociated Problem(s): CKD (chronic kidney disease), stage III Update renal function; encouraged drinking enough water on daily basis * Betsy Smith MD - 03/24/2022 10:10 PM ESTAssociated Problem(s): B12 deficiency Update 12 level; no further B12 supplementation * Betsy Smith MD - 03/24/2022 10:10 PM ESTAssociated Problem(s): Vitamin D deficiency Update vit D level on 1000 units QD supplementation * Betsy Smith MD - 03/24/2022 10:09 PM ESTAssociated Problem(s): Sensorineural hearing loss (SNHL) of both ears Near absent hearing to finger rubbing on right, absent on left; no cerumen on exam; rec audiology evaluation, otilio with link between hearing loss and dementia; she states Dr. Burks goes to her town(daughter has seen him) - will let us know if she needs referral * Betsy Smith MD - 03/24/2022 10:08 PM ESTAssociated Problem(s): Hypertension BP elevated, worsened on repeat; rec low Na diet (< 2000 mg/day, ideally < 1500 mg/day) and increased aerobic exercise; rec starting home BP monitoring with goal BP < 130/80; f/u in 2 mos for BP check * Betsy Smith MD - 03/24/2022 10:07 PM ESTAssociated Problem(s): Hyperlipidemia Needs updated lipids with goal LDL < 70; on zetia 10mg QD #90,3 RF * Betsy Smith MD - 03/24/2022 2:00 PM EST ANNUAL WELLNESS VISIT DRUG AND ALCOHOL USE no alcohol use, no tobacco use and no caffeine use DIET AND PHYSICAL ACTIVITY Diet: general Exercise: frequently Exercise Details: walking and yard work MOOD DISORDER AND COGNITIVE SCREENING PHQ-2 Depression Screening - components reviewed with patient; screening is positive for active depression. Little interest or pleasure in doing things? 1-->several days Feeling down, depressed, or hopeless? 1-->several days PHQ-2 Total Score 2 Anxiety Screening Tool Used YES AUDIT screening 0 Mini-Cog Performed Yes 1. Tell Patient 3 Words car apple pen 2. Administer Clock Test normal 3. Recall 3 words car apple pen 4. Number Correct Items 3 FUNCTIONAL ABILITY AND LEVEL OF SAFETY Hearing moderate hearing loss Wears Hearing Aids No Current Activities Independent none - see Funct/Cog Status Intake Fall Risk Assessment Has difficulty with walking or balance No Timed Up and Go (TUG) Test 8 sec. If >12 sec, normal ADVANCED DIRECTIVE Advance Care Planning ACP discussion was held with the patient during this visit. Patient has an advance directive in EMRwhich is still valid. Advance Care Planning Discussion: 16 min or more spent on counseling; patient does not have advanced directive and living will. Reviewed desires for end of life care, which is to have comfort care. Patient does not want extraordinarylife-sustaining measures, including no prolonged artificial life support. Encouraged patient to ensure family is aware of desires/preferences. Confirmed son is her healthcare surrogate. ACP pamphlet provided to patient; sections that need to be completed were reviewed in detail. Request that she bring us copy once notarized. PAIN SCREENING Do you have pain right [...] use: No BMI Body mass index is 25.89 kg/m??. BMI is >= 25 and <30. (Overweight) The following options were offered after discussion;: exercise counseling/recommendations and nutrition counseling/recommendations Chief Complaint Patient presents with ??? Medicare Wellness-subsequent ??? Diabetes History of Present Illness 87 y.o. woman presents for updated wellness visit and f/u on BP, cholesterol, and DM. Reports FBGs 90s, nonfasting BGs (1hr after meals) 115-120s. Reports rec from eye doctor to start vitamin supplement but lost the paper with instructions. Dx'd with dry mac degeneration OU. Reports urinary leakage, sometimes unable to get to bathroom in time, sometimes with leakage shortly after standing. Does not have pain with urination, significant urgency. Admits to drinking a lot of coffee. Likes to play bingo, sits and drinks a lot of coffee, and then has leakage before she can get to bathroom. Had waffles x2 with jelly, no butter, around 9am - that was 6 hrs ago. Review of Systems Denies headaches, visual changes, CP, palpitations, SOB, cough, abd pain, n/v/d, numbness/tingling,falls, mood changes, lightheadedness, hearing changes (has not noticed significant hearing problems), rashes. ROS (+) for urinary leakage, has lots of coffee intake; denies dysuria, urinary frequency/urgency, not hematuria. All other ROS reviewed and negative. Current Outpatient Medications: ??? alendronate (FOSAMAX) 70 MG weekly ??? calcium carbonate (OS-ANUEL) 600 MG BID ??? cholecalciferol (VITAMIN D3) 1000 units QD ??? ezetimibe (Zetia) 10 MG QD ??? irbesartan (AVAPRO) 300 MG QD ??? metFORMIN ER (GLUCOPHAGE-XR) 750 MG 2 QD ??? ICAPS AREDS 2 QD ??? Smooth Move Tea QHS ??? Omeprazole 20 MG QD ??? pioglitazone (ACTOS) 30 MG QD VITALS: BP 148/82 Pulse 70 Ht 166.4 cm (65.5 ) Wt 71.7 kg (158 lb) SpO2 100% BMI 25.89 kg/m?? Repeat BP 146/68 left, 150/64 right Physical Exam Vitals and nursing note reviewed. Constitutional: General: She is not in acute distress. Appearance: Normal appearance. She is well-developed. HENT: Head: Normocephalic. Right Ear: Tympanic membrane, ear canal and external ear normal. Left Ear: Tympanic membrane, ear canal and external ear normal. Ears: Comments: Decreased hearing to finger rubbing bilaterally, faint on right and absent on left Nose: Nose normal. Eyes: Extraocular Movements: Extraocular [...] There is no abdominal tenderness. Genitourinary: Comments: Forest Products Gatherer declined by patient. Breast exam with diffuse fibrocystic changes bilaterally, otherwise, unremarkable without masses, skin changes, nipple discharge, [...] time. Cranial Nerves: No cranial nerve deficit. Deep Tendon Reflexes: Reflexes normal. Psychiatric: Mood and Affect: Mood normal. Behavior: Behavior normal. LABS Results for orders placed or performed in visit on 03/24/22 POC Glycosylated Hemoglobin (Hb A1C) Specimen: Blood Result Value Ref Range Hemoglobin A1C 6.1 % Lot Number [id number] Expiration Date 01/12/24 09/19/21 A1C 6.0 03/14/21 A1C 6.0 ASSESSMENT/PLAN Diagnoses and all orders for this visit: 1. Medicare annual wellness visit, subsequent (Primary) Assessment & Plan: Health maintenance - COVID19 vacc done, incl 4th dose Moderna; rec proceeding with new COVID19 vaccand updated flu vacc - she would like to get at pharmacy; Prevnar 02/18; PVX 03/16; Tdap 05/27 (nextTd due 2030), Zostavax 09/12, Shingrix and HAV done; no further mammos, Paps cn colonosc per patientunelss abnlities; DEXA ordered (last 06/26),; colonosc 2007, NEG cologuard 03/25/18; eye exam w/ 03/08/22 (no DM retinopathy); dental exam 07/26; (+)seat belt use Consultants: Patient Care Team: Betsy Smith MD as PCP - Ed Aragon MD as Consulting Physician (Ophthalmology) Julito Shen MD as Consulting Physician (Gastroenterology) Kristal Valente (Audiology) 2. Hypertension Assessment & Plan: BP elevated, worsened on repeat; rec low Na diet (< 2000 mg/day, ideally < 1500 mg/day) and increased aerobic exercise; rec starting home BP monitoring with goal BP < 130/80; f/u in 2 mos for BP check Orders: - irbesartan (AVAPRO) 300 MG tablet; Take 1 tablet by mouth Daily. Dispense: 90 tablet; Refill: 3 3. Hyperlipidemia Assessment & Plan: Needs updated lipids with goal LDL < 70; on zetia 10mg QD #90,3 RF Orders: - ezetimibe (Zetia) 10 MG tablet; Take 1 tablet by mouth Daily. Dispense: 90 tablet; Refill: 3 4. B12 deficiency Assessment & Plan: Update 12 level; no further B12 supplementation 5. Vitamin D deficiency Assessment & Plan: Update vit D level on 1000 units QD supplementation 6. Stage 3a chronic kidney disease (HCC) Assessment & Plan: Update renal function; encouraged drinking enough water on daily basis 7. Osteoporosis Assessment & Plan: Calcium and vitamin D supplementation with weight-bearing exercise and alendronate 70mg weekly #13,3RF; DEXA ordered - counseling with patient re: fx risk evaluation/reduction Orders: - alendronate (FOSAMAX) 70 MG tablet; Take 1 tablet by mouth 1 (One) Time Per Week. Dispense: 13 tablet; Refill: 3 8. Type 2 diabetes mellitus with stage 3b chronic kidney disease, without long- term current use of insulin (HCC) Assessment & Plan: BG control stable with A1C 6.1; cont [...] With Breakfast. Dispense: 180 tablet; Refill: 3 - POC Glycosylated Hemoglobin (Hb A1C) 9. Sensorineural hearing loss (SNHL) of both ears Assessment & Plan: Near absent hearing to finger rubbing on right, absent on left; no cerumen on exam; rec audiology evaluation, otilio with link between hearing loss and dementia; she states Dr. Burks goes to her town(daughter has seen him) - will let us know if she needs referral 10. Overflow incontinence of urine Assessment & Plan: Reviewed diuretic effect of coffee, likely exacerbating her incontinence., therefore should cut back coffee and caffeine intake; rec time bathroom breaks for evacuating bladder only when full; f/u in2 mos 11. Early dry stage nonexudative age-related macular degeneration of both eyes Assessment & Plan: Reviewed with patient Dr. Duque recs to take AREDS2 vitamins FOLLOW-UP 1. Needs fasting PE labs (nery whitten this AM) 2. RTC 2mos with BP check and f/u on overflow incontinence 3. RTC 6 mos with A1C Electronically signed by: Betsy Smith MD, FACP 03/24/2022 documented in this encounter Plan of Treatment Upcoming Encounters Date Type Department Care Team (Late st Contact Info) Description 06/09/2024 3:00 PM EST Office Visit [facility] MED[facility]INE [address] [place] [phone] Betsy Smith MD [address] [place] [address] documented as of this encounter Procedures Procedure Name Priority Date/Time Associated Diagnosis Comments POCT GLYCOSYLATED HEMOGLOBIN (HGB A1C) Routine 03/24/2022 2:32 PM EST Type 2 diabetes mellitus with stage 3b chronic kidney disease, without long-term current use of insulin documented in this encounter Results * POC Glycosylated Hemoglobin (Hb A1C) (03/24/2022 2:32 PM EST) Hemoglobin A1C 6.1 % [facility] Lot Number [id number] [facility] Expiration Date 01/12/24 [facility] Blood 03/24/2022 2:32 PM EST us Betsy Smith MD POINT OF CARE TEST ORDERABLES Fi nal Result [facility]
[address] [place] [id number], documented in this encounter Visit Diagnoses Diagnosis Medicare annual wellness visit, subsequent- Primary Hypertension Unspecified essential hypertension Hyperlipidemia Pure hypercholesterolemia B12 deficiency Vitamin D deficiency Stage 3a chronic kidney disease Osteoporosis Type 2 diabetes mellitus with stage 3b chronic kidney disease, without long-term current use of insulin Sensorineural hearing loss (SNHL) of both ears Overflow incontinence of urine Overflow incontinence Early dry stage nonexudative age-related macular degeneration of both eyes documented in this encounter Additional Health Concerns Assessment Noted Time PHQ-2 Depression Total Score: 2 03/24/20 22 2:18 PM EST documented as of this encounter Care Teams Furniture Servicer Relationship Specialty Start Date End Date Betsy Smith MD [address] [place] [id number] PCP - General 02/08/15 documented as of this encounter
--- OUTSIDE RECORDS SUMMARY | 2024-03-25 02:49 | XMS_ITS | Encounter Summary ---
Author Organization [facility] Address [address] [place] [address] Care Team Providers Care Co Founder And President Name Role Phone Betsy Smith MD Primary Care Provider [phone] Reason for Visit * Reason Onset Date Comments CALL BACK REQUEST 04/11/2023 Encounter Details Date Type Department Care Team (Late st Contact Info) Description 04/11/2023 Telephone [facility] INTERNAL MEDICINE [address] [place] [phone] [place] [address] [place] [address] CALL BACK REQUEST Social History Tobacco Use Types Packs/Day [...] 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 Not on le documented as of this encounter Miscellaneous Notes * Telephone Encounter - Lisa Caldera RegSched Rep - 04/11/2023 1:20 PM EST Caller: Tasneem Perales Relationship: Self Best call back number: [phone] What is the best time to reach you: ANYTIME Who are you requesting to speak with (clinical staff, provider, specific staff member): CLINICAL STAFF What was the call regarding: THE PATIENT NEEDS THE PHONE NUMBER FOR THE SURGEON THAT SHE WAS REFERRED TO documented in this encounter Plan of Treatment Upcoming Encounters Date Type Department Care Team (Late st Contact Info) Description 06/09/2024 3:00 PM EST Office Visit [facility] INTERNAL MEDICINE [address] [place] [phone] Betsy Smith MD [address] [place] [address] documented as of this encounter Visit Diagnoses Not on filedocumented in this encounter Additional Health Concerns Assessment Noted Time PHQ-2 Depression Total Score: 2 03/24/20 22 2:18 PM EST documented as of this encounter Care Teams Co Founder And President Relationship Specialty Start Date End Date Betsy Smith MD [address] [place] [address] PCP - General 02/08/15 documented as of this encounter
--- OUTSIDE RECORDS SUMMARY | 2024-03-25 02:49 | XMS_ITS | Encounter Summary ---
Author Organization [facility] Address [address] [place] [address] Care Team Providers Care Cigarette Packer Name Role Phone Betsy Smith MD Primary Care Provider [phone] Reason for Referral * Pain Management (Routine) - Canceled Specialty Diagnoses / Procedures Referred By Contmichael t Referred To Contact Pain Medicine Diagnoses Spinal stenosis of lumbar region with neurogenic claudication Left leg pain Procedures [place] OFFICE/OUTPATIENT NEW MODERATE MDM 45-59 MINUTES Betsy Smith MD [address] [place] [address] Phone: tel: fax: LOCATION NOT FOUND IN SYSTEM [address] [place] [address] Phone: tel: Referral ID Status Reason Start Date Expiration Date Visits Requested Visits Authorized [id number] Canceled Specialty Services Required 04/04/2023 04/03/2024 1 1 Scheduling Instructions Patient requesting referral to [facility]); pls fax them results of MRI from [facility] and have patient take MRI disc to appt Reason for Visit * Reason Onset Date Comments Results 03/19/2023 MRI L-spine Encounter Details Date Type Department Care Team ([facility] Contact Info) Description 03/19/2023 Telephone [facility] INTERNAL MEDICINE [address] [place] [phone] Betsy Smith MD [address] [place] [address] Results (MRI L-spine) Social History Tobacco Use Types Packs/Day Years [...] Telephone Encounter - Betsy Smith MD - 04/04/2023 2:10 PM EST Referral escribed as requested * Telephone Encounter - Dana, Amy B, MA - 04/04/2023 1:56 PM EST Let pt know of results. Pt verbalized understanding. Pt would like to be referred to pain clinic, and would prefer [facility]. * Telephone Encounter - Betsy Smith MD - 04/04/2023 12:52 PM EST MRI shows moderate to severe arthritis changes and disc bulges causing moderate to severe narrowingon the spinal cord as well as the nerves come out of the spinal cord. Both sides have problems on the MRI but patient reported mostly left-sided symptoms. I am not sure she is a surgical candidate, but if wants to explore the option of surgery, we would make a referral to neurosurgery. Otherwise, we would make a referral to pain clinic to see if a back injection would help her pain. If it helped, it would only be temporary but that could be pain relief for several months. What does she want to do? * Telephone Encounter - Belle Bishop MA - 04/04/2023 9:23 AM EST Results given to Dr. SMITH and she has not reviewed them yet. OK for HUB to relay if she calls back that we are waiting for Dr. SMITH's comments on the MRI. * Telephone Encounter - Selina Michelle RegSched Rep - 04/03/2023 3:08 PM EST Caller: Sushma Perales Relationship: Self Best call back number: [phone] Caller requesting test results: SELF What test was performed: MRI OF BACK AND HIP When was the test performed: 04/02/23 Where was the test performed: [facility] Additional notes: PATIENT REQUESTING A CALL BACK TO REVIEW THE RESULTS. ASKING IF SHE NEEDS TO STOP THERAPY. WAS TOLD BY THE THERAPIST TO STOP THERAPY UNTIL THE RESULTS ARE REVIEWED BECAUSE SHE IS IN SO MUCH PAIN PLEASE CALL TO ADVISE * Telephone Encounter - Belle Bishop MA - 04/03/2023 10:08 AM EST Results in your yellow folder. * Telephone Encounter - Betsy Smith MD - 04/02/2023 5:45 PM EST Still waiting on results - please request * Telephone Encounter - Shaista Hastings RegSched Rep - 04/02/2023 2:10 PM EST PT STATED THAT SHE HAD MRI AT [facility] DONE TODAY, AND WILL LIKE TO KNOW WHAT DR SUGGEST. PLEASE ADVISE.cALL BACK:[phone] * Telephone Encounter - Belle Bishop MA - 03/20/2023 8:59 AM EST MRI and lab results requested from [facility] * Telephone Encounter - Betsy Smith MD - 03/19/2023 8:52 PM EST It was done at [facility]. We do not have any results * Telephone Encounter - Maye Salazar MA - 03/19/2023 3:38 PM EST Patient wanting results of hip xray and MRI * Telephone Encounter - Juliane Gold RegSched Rep - 03/19/2023 9:58 AM EST Caller: Sushma Perales Relationship: Self Best call back number: [phone] What is the best time to reach you: ANYTIME Who are you requesting to speak with (clinical staff, provider, specific staff member): PCP/MA Do you know the name of the person who called: SUSHMA What was the call regarding: CALLBACK WITH TEST RESULTS AND MRI STATUS Is it okay if the provider responds through MyChart: CALLBACK documented in this encounter Plan of Treatment Upcoming Encounters Date Type Department Care Team (Late st Contact Info) Description 06/09/2024 3:00 PM EST Office Visit [facility] INTERNAL MEDICINE [address] [place] [phone] Betsy Smith MD [address] [place] [address] documented as of this encounter Visit Diagnoses Diagnosis Spinal stenosis of lumbar region with neurogenic claudication- Primary Left leg pain Pain in soft tissues of limb documented in this encounter Additional Health Concerns Assessment Noted Time PHQ-2 Depression Total Score: 2 03/24/20 22 2:18 PM EST documented as of this encounter Care Teams Cigarette Packer Relationship Specialty Start Date End Date Betsy Smith MD [address] [place] [phone] PCP - General 02/08/15 documented as of this encounter
--- OUTSIDE RECORDS SUMMARY | 2024-03-25 02:49 | XMS_ITS | Encounter Summary ---
Author Organization [facility] ystem Address [address] [place] [address] Care Team Providers Care Supervisory Air Intercept Controller Name Role Phone Betsy Smith MD Primary Care Provider [phone] Reason for Visit * Reason Comments Med Refill Encounter Details Date Type Department Care Team ([facility] Contact Info) Description 03/09/2021 Refill [facility] INTERNAL MEDICINE [address] [place] [phone] [place] [address] [place] [address] Osteoporosis Social History Tobacco Use Types [...] 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 Not on le documented as of this encounter Plan of Treatment Upcoming Encounters Date Type Department Care Team ([facility] Contact Info) Description 06/09/2024 3:00 PM EST Office Visit [facility] INTERNAL MEDICINE [address] [place] [phone] Betsy Smith MD [address] [place], [place] [id number] documented as of this encounter Visit Diagnoses Diagnosis Osteoporosis documented in this encounter Care Teams Supervisory Air Intercept Controller Relationship Specialty Start Date End Date Betsy Smith MD [address] [place] [address] PCP - General 02/08/15 documented as of this encounter
--- OUTSIDE RECORDS SUMMARY | 2024-03-25 02:49 | XMS_ITS | Encounter Summary ---
Author Organization [facility] yste Address [address] [place] [address] Care Team Providers Care Expressive Therapist Name Role Phone Betsy Smith MD Primary Care Provider [phone] Reason for Visit * Reason Onset Date Comments Med Refill 2023 Encounter Details Date Type Department Care Team (Late st Contact Info) Description 2023 Refill [facility] [address] [place] [phone] [place] [address] [place] [id number] Type 2 diabetes mellitus with stage [...] 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 documented as of this encounter Miscellaneous Notes * Telephone Encounter - Maciej Vásquez RegSched Rep - 2023 4:45 PM EDT Caller: Tasneem Perales Relationship: Self Best call back number: [phone] Requested Prescriptions: Requested Prescriptions Pending Prescriptions Disp Refills metFORMIN ER (GLUCOPHAGE-XR) 750 MG 24 hr tablet 180 tablet 3 Sig: Take 2 tablets by mouth Daily With Breakfast. Pharmacy where request should be sent: [facility] [place] [facility] TO REGISTER[facility] - [phone] - [phone] FX Last office visit with prescribing clinician: 09/22/2022 Last telemedicine visit with prescribing clinician: Visit date not found Next office visit with prescribing clinician: 04/06/2023 Additional details provided by patient: PATIENT HAS ENOUGH TO LAST UNTIL Sunday03/09/23 BUT WILL NOT HAVE ENOUGH TO LAST UNTIL HER NEXT APPOINTMENT WITH DR SMITH ON 04/06/23 Does the patient have less than a 3 day supply: [] Yes [x] No Would you like a call back once the refill request has been completed: [] Yes [x] No If the office needs to give you a call back, can they leave a voicemail: [] Yes [x] No Jackson Yuen Rep 03/05/23 16:46 EDT documented in this encounter Plan of Treatment Upcoming Encounters Date Type Department Care Team (Late st Contact Info) Description 06/09/2024 3:00 PM EST Office Visit [facility] [address] [place] [phone] Betsy Smith MD [address] [place] [phone] documented as of this encounter Visit Diagnoses Diagnosis Type 2 diabetes mellitus with stage 3b chronic kidney disease, without long-term current use of insulin documented in this encounter Additional Health Concerns Assessment Noted Time PHQ-2 Depression Total Score: 2 03/24/20 22 2:18 PM EST documented as of this encounter Care Teams Expressive Therapist Relationship Specialty Start Date End Date Betsy Smith MD [address] [place] [id number] PCP - General 02/08/15 documented as of this encounter
--- OUTSIDE RECORDS SUMMARY | 2024-03-25 02:49 | XMS_ITS | Encounter Summary ---
Author Organization [facility] yste Address [address] [place] [address] Care Team Providers Care Noodle Press Operator Name Role Phone Betsy Smith MD Primary Care Provider [phone] Reason for Referral * Consultation (Routine) - Authorized Specialty Diagnoses / Procedures Referred By Contac t Referred To Contact Neurosurgery Diagnoses Spinal stenosis of lumbar region [place] [address] [place] [phone] Phone: tel: fax: [facility] [address] [phone] Phone: tel: fax: Referral ID Status Reason Start Date Expiration Date Visits Requested Visits Authorized [id number] Authorized Specialty Services Required 3 04/04/2024 2 2 Encounter Details Date Type Department Care Team ([facility] st Contact Info) Description 04/04/2023 Telephone [facility] [address] [place] [phone] [place] [address] [place] [phone] Social History Tobacco Use Types Packs/Day [...] 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 Cancel pain clinic referral * Telephone Encounter - Maye Salazar MA - 04/05/2023 1:55 PM EST Spoke with patient and she states she has already discussed this with her family members and she elisa board with doing the Neurosurgery referral * Telephone Encounter - Betsy Smith MD - 04/05/2023 1:29 PM EST Pls tell patient again that she needs to confer with her family once more before we make any referrals. Within less than 48 hours, she has decided to go to pain, then neither pain or neurosurg clinic, then orthopedic clinic, and now back to neurosurg clinic. We do not have the ability to keep making appts and cancelling them. She can call us on Sunday with a final decision. I have recommended neurosurg consultation if she wants to see if they are willing to do surgery (ifcarrington wants surgery) or pain clinic for injections to give her pain relief. They only need the MRI because it also shows the arthritis changes already noted from the Xray and CT scan. She will need to take the MRI disc to whatever appt she chooses * Telephone Encounter - Indu Owens RegSched Rep - 04/05/2023 11:21 AM EST PATIENT IS CALLING TO LET THE OFFICE KNOW THAT SHE HAS DECIDED TO GO AHEAD WITH THE NEUROSURGERY REFERRAL * Telephone Encounter - Connor Ortega RegSched Rep - 04/04/2023 2:44 PM EST Patient declined referral to pain management and neurosurgery. She advised she does not want to proceed with anything right now. * Telephone Encounter - Belle Bishop MA - 04/04/2023 2:34 PM EST Left VM to call office. She is asking for a referral to ortho, but there is another encounter with her MRI results and message from Dr. Smith that states she could either do pain clinic or neurosurgery referral. She does not need an ortho referral. OK for HUB to really this to patient and clarify if the patient wants to have a neurosurgery referral or a pain clinic referral as advised by Dr. Smith. * Telephone Encounter - Loly Hackett RegSched Rep - 04/04/2023 2:25 PM EST PATIENT CALLED SAYING SHE SPOKE TO WILL EARLIER. SHE REQUESTS THAT WE DO NOT MAKE AN APPOINTMENT AT THE PAIN CLINIC YET SHE WISHES TO TRY ANOTHER ALTERNATIVE. PATIENT WOULD INSTEAD LIKE A REFERRAL TO [facility] IN [place]. SHE HAS PROVIDED THEIR PHONE NUMBER : . THE PATIENT STATES THAT SHE HAS DIFFICULTY GETTING TO [place] CURRENTLY. THE PATIENT STATES THAT SHE HAS PREVIOUSLY HAD AN XRAY AND CT SCAN BEOFRE HER MRI, AND WOULD LIKE TO SEE WHAT THE RESULTS WOULD BE WHEN ALL THREE ARE CONSIDERED TOGETHER. documented in this encounter Plan of Treatment Upcoming Encounters Date Type Department Care Team (Late st Contact Info) Description 06/09/2024 3:00 PM EST Office Visit [facility] [address] [place] [phone] [place] [address] [place] [phone] Scheduled Referrals Name Type Priority Associated Diagnoses Orde r Schedule Ambulatory Referral to Neurosurgery Outpatient Referral Routine Spinal stenosis of lumbar region with neurogenic claudication Ordered: 04/05/2023 documented as of this encounter Visit Diagnoses Diagnosis Spinal stenosis of lumbar region with neurogenic claudication- Primary documented in this encounter Additional Health Concerns Assessment Noted Time PHQ-2 Depression Total Score: 2 03/24/20 22 2:18 PM EST documented as of this encounter Care Teams Noodle Press Operator Relationship Specialty Start Date End Date Betsy Smith MD [address] [place] [phone] PCP - General 02/08/15 documented as of this encounter
--- OUTSIDE RECORDS SUMMARY | 2024-03-25 02:49 | XMS_ITS | Encounter Summary ---
[facility] Address [address] [address] Care Team Providers Care Astrochemist Name Role Phone Betsy Smith MD Primary Care Provider [phone] Reason for Referral * Consultation (Routine) - Closed Specialty Diagnoses / Procedures Referred By Contact Referred To Contact Orthopedic Surgery Diagnoses Primary osteoarthritis of left hip Betsy Smith MD [address] [place] [address] Phone: tel:[phone] fax:[phone] Sathish Gomez MD [address] [place] [address] Phone: tel: fax: Referral ID Status Reason Start Date Expiration Date V isits Requested Visits Authorized [id number] Closed Specialty Services Required 06/05/2023 06/04/2024 1 1 Scheduling Instructions Fall in 01/27, progressively worsened left back and hip pain, now with chief complaint of left groin pain; MRI L-spine and MRI - hip reports in Epic; pain clinic injections left hip and groin were ineffective; advised patient to take discs to appt Reason for Visit * Reason Comments Medicare Wellness-subsequent Encounter Details Date Type Department Care Team (Late st Contact Info) Description 06/05/2023 11:00 AM EST Office Visit [facility] [address] [place] [address] Betsy Smith MD [address] [place] [address] Medicare annual wellness visit, subsequent (Primary Dx); Hypertension; Hyperlipidemia; Type 2 diabetes mellitus with stage 3b chronic kidney disease, without long-term current use of insulin; Stage 3a chronic kidney disease; Vitamin D deficiency; B12 deficiency; Osteoporosis; Osteoarthritis of left hip; Spinal stenosis of lumbar region with neurogenic claudication Social History Tobacco Use Types Packs/Day Years [...] 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 Not on file Not on fi le documented as of this encounter Last Filed Vital Signs Vital Sign Reading Time Taken Comments Blood Pressure 142/90 06/05/2023 10:32 AM EST Pulse 102 06/05/2023 10:32 AM EST Temperature 36.4 ??C (97.6 ??F) 06/05/2023 10:[address] Respiratory Rate 16 06/05/2023 10:32 AM EST Oxygen Saturation 100% 06/05/2023 10:32 AM EST Inhaled Oxygen Concentration - - Weight 66.2 kg (146 lb) 06/05/2023 10:32 AM EST Height 167.7 cm (5' 6.02 ) 06/05/2023 10:[address] Body Mass Index 23.55 06/05/2023 10:32 AM EST documented in this encounter Progress Notes * Betsy Smith MD - 06/05/2023 11:00 AM ESTAssociated Order(s): ECG 12 Lead Post-Procedure Diagnose(s): Essential hypertension ANNUAL WELLNESS VISIT DRUG AND ALCOHOL USE no alcohol use and no tobacco use DIET AND PHYSICAL ACTIVITY Diet: unhealthy Exercise: never - current limited by left hip/back pain Exercise Details: none MOOD DISORDER AND COGNITIVE SCREENING PHQ-2 Depression Screening - components reviewed with patient; screening is positive for active depression. This is situational since 01/27 after fall due to persistent left hip/back pain. Has supportof family. Could consider meds if no pain interventions become successful. F/u in 3 mos; > 16 min counseling. Little interest or pleasure in doing things? 3-->nearly every day0 Feeling down, depressed, or hopeless? 3-->nearly every day0 PHQ-2 Total Score 6 Anxiety Screening Tool Used YES AUDIT screening 0 Mini-Cog Performed Yes 1. Tell Patient 3 Words Tree, book car 2. Administer Clock Test abnormal 3. Recall 3 words Tree, car 4. Number Correct Items 2 FUNCTIONAL ABILITY AND LEVEL OF SAFETY Hearing no hearing loss Wears Hearing Aids No Current Activities Moderate assistance difficulty with walking - see Funct/Cog Status Intake Fall Risk Assessment Has difficulty with walking or balance Yes Timed Up and Go (TUG) Test unable to complete due to severe left hip/groin pain - abnl gait ADVANCED DIRECTIVE Advance Care Planning ACP discussion was held with the patient during this visit. Patient has an advance directive in EMRwhich is still valid. Advance Care Planning Discussion: 16 min or more spent on counseling; patient has advanced directive and living will. Reviewed desires for end of life care, which is to have comfort care. Patient does not want extraordinary life-sustaining measures, including no prolonged artificial life support. Encouraged patient to ensure familyis aware of desires/preferences. Confirmed son Nory is her healthcare surrogate. Son is with her today and I advised him that he was the HCS. PAIN SCREENING Do you have pain right now? yes If so, 1-10 scale: 10+ Keeps awake at night, Wakes from sleep, Constant Do you have pain every day? Yes Probable chronic pain: only since 01/2023 after fall Recent Hospitalizations: No hospitalization(s) within the last year.. MEDICATION REVIEW - updated and reviewed (see Medication List). - reviewed for potentially harmful drug-disease interactions in the elderly. - reviewed for high risk medications in the elderly. - aspirin use: No BMI Body mass index is 23.55 kg/m??. BMI is within normal parameters. No other follow-up for BMI required. Chief Complaint Patient presents with Medicare Wellness-subsequent History of Present Illness 88 y.o. female presents for updated wellness visit and f/u on BP, cholesterol, kidney disease as well as f/u on DM, BP, cholesterol, CKD and left hip/groin pain. Reports injection in left hip and left groin per pain clinic, Dr. Mcneal in [place]; states injections did not help. Was told there was nothing she could take for pain, including tylenol, and was told she could not get vaccines after the 2 shots. Has pain clinic f/u in about 1wk and also f/u with Dr. Artis. Reports gabapentin RX'd by Dr. Artis did not help her pain. Review of Systems Denies headaches, visual changes, CP, palpitations, SOB, cough, abd pain, n/v/d, difficulty with urination, numbness/tingling, falls, mood changes, lightheadedness, hearing changes, rashes. Denies vaginal discharge or bleeding (no periods) or breast concerns. ROS (+) for severe left hip/groin pain x 3-4 months after fall. Has gotten more debilitated since then. No phys activity - used to mow the lawn prior to this injury. All other ROS reviewed and negative. Current Outpatient Medications: alendronate (FOSAMAX) 70 MG weekly calcium carbonate (OS-ANUEL) 600 MG BID cholecalciferol (VITAMIN D3) 1000 units QD ezetimibe 10mg QD irbesartan 300 MG QD metFORMIN ER 750 MG 2 QD ICAPS AREDS 2 QD Smooth Move Tea QHS Omeprazole 20 MG 2 QD pioglitazone 30 MG QD OPIOID SCREENING: The patient does not have opioid prescription on her medication list - no longer on tramadol. Medication list has been reviewed with the patient regarding potentially high risk medications and harmful drug interactions in patients over age 65. Note potential sedating s/e from gabapentin, RX'd by Dr. Artis. VITALS: BP 142/90 Pulse 102 Temp 97.6 ??F (36.4 ??C) Resp 16 Ht 167.7 cm (66.02 ) Wt 66.2 kg (146lb) SpO2 100% BMI 23.55 kg/m?? Physical Exam Vitals and nursing note reviewed. Constitutional: General: She is not in acute distress. Appearance: Normal appearance. She is well-developed. HENT: Head: Normocephalic. Right Ear: Ear canal and external ear normal. Left Ear: Ear canal and external ear normal. Nose: Nose [...] breath sounds. No wheezing, rhonchi or rales. Abdominal: General: Bowel sounds are normal. There is no distension. Palpations: Abdomen is soft. There is no mass. Tenderness: There is no abdominal tenderness. Genitourinary: Comments: Breast exam declined by patient Musculoskeletal: General: Tenderness (unable to lift up left knee while seated; minimal ROM left hip) present. Cervical back: Normal range of motion and neck supple. Lymphadenopathy: Cervical: No cervical adenopathy. Skin: General: Skin is warm and dry. Findings: No rash. Neurological: Mental Status: She is alert. Psychiatric: Mood and Affect: Mood normal. Behavior: Behavior normal. LABS Results for orders placed or performed in visit on 06/05/23 POC Glycosylated Hemoglobin (Hb A1C) Specimen: Blood Result Value Ref Range Hemoglobin A1C 6.4 (A) 4.5 - 5.7 % Lot Number [id number] Expiration Date 11/05/24 Results for orders placed or performed in visit on 09/22/22 POC Glycosylated Hemoglobin (Hb A1C) Specimen: Blood Result Value Ref Range Hemoglobin A1C 6.3 % Lot Number [id number] Expiration Date 06/06/2024 05/25/23 MRI L hip - severe degen change worsened from 03/29, mod joint effusion, bone marrow edema,anl soft tissue around fem head/neck 04/02/23 MRI L-spine - multilevel adv degen changes, mod-severe disk bulges with canal stenoses andneuroforaminal stenoses, most severe at L4-5 ECG 12 Lead Date/Time: 06/05/2023 10:58 AM Performed by: Betsy Smith MD Authorized by: Betsy Smith MD Comparison: compared with previous ECG from 06/05/2023 Similar to previous ECG Rhythm: sinus rhythm Rate: normal BPM: 76 Conduction: conduction normal ST Segments: ST segments normal T Waves: T waves normal QRS axis: normal Clinical impression: normal ECG Clinical impression comment: stable EKG ASSESSMENT/PLAN Diagnoses and all orders for this visit: 1. Medicare annual wellness visit, subsequent (Primary) Assessment & Plan: Health maintenance - flu vacc 03/29; rec COVID19 vacc, rec RSV vacc - counseling given and rec getting at pharmacy (pain clinic instructed her to avoid vacc after pain injections); Prevnar 02/18; PVX105/16; Tdap 05/27 (next Td due 2030), Shingrix [...] Greenwood MD as Consulting Physician (Pain Medicine) 2. Hypertension Assessment & Plan: BP mildly elevated 142/90, likely exac'd by severe left hip/groin pain; cont irbesartan 300mg QD #90, 3RF; needs electrolytes for drug monitoring Orders: - irbesartan (AVAPRO) 300 MG tablet; Take 1 tablet by mouth Daily. Dispense: 90 tablet; Refill: 3 - ECG 12 Lead 3. Hyperlipidemia Assessment & Plan: Needs updated lipids on zetia 10mg QD - renew when labs available; goal LDL < 70 Orders: - ezetimibe (Zetia) 10 MG tablet; Take 1 tablet by mouth Daily. Dispense: 90 tablet; Refill: 3 4. Type 2 diabetes mellitus with stage 3b chronic kidney disease, without long- term current use of insulin Assessment & Plan: BG control stable with A1C 6.4; cont met ER 750mg 2 QD #180, 3RF and amita 30mg QD #90, 3RF; cont to monitor renal function on metformin; encouraged reg phys activity to decr insulin resistance, moderation in unhealthy starches/sweets; f/u A1C in 6 mos Orders: - POC Glycosylated Hemoglobin (Hb A1C) - metFORMIN ER (GLUCOPHAGE-XR) 750 MG 24 hr tablet; Take 2 tablets by mouth Daily With Breakfast. Dispense: 180 tablet; Refill: 3 - pioglitazone (ACTOS) 30 MG tablet; Take 1 tablet by mouth Daily. Dispense: 90 tablet; Refill: 3 5. Stage 3a chronic kidney disease Assessment & Plan: Needs updated Cr and GFR; avoid NSAIDs; drink enough water daily; will need to d/c metformin if GFR< 30 6. Vitamin D deficiency Assessment & Plan: Update vit D level on 1000 units QD supplementation 7. B12 deficiency Assessment & Plan: Update B12 level; no current supplementation 8. Osteoporosis Assessment & Plan: Calcium and vitamin D supplementation with weight-bearing exercise; remains on alendronate 70mg weekly #13, 3RF; DEXA 11/26, repeat 2024 Orders: - alendronate (FOSAMAX) 70 MG tablet; Take 1 tablet by mouth 1 (One) Time Per Week. Dispense: 13 tablet; Refill: 3 9. Osteoarthritis of left hip Assessment & Plan: Reviewed MRI L hip results, indicating severe degen changes, mod joint effusion, and abnl surrounding soft tissue, further worsened since 01/27 fall; rec ortho consultation Orders: - Ambulatory Referral to Orthopedic Surgery 10. Spinal stenosis of lumbar region with neurogenic claudication Assessment & Plan: Poor surgical candidate per Dr. Artis; note also severe L hip pathology on MRI; f/u Pain clinic next week - reports 2 injections were ineffective; has NS f/u with Dr. Artis pending 06/13/23; current chief complaint is in left hip and groin area FOLLOW-UP Needs fasting PE labs - lab order given to obtain at [facility] RTC 3 mos for depression and memory follow-up, 30-min with [facility] RTC 6 mos with A1C Electronically signed by: Betsy Smith MD, FACP 06/05/2023 * Betsy Smith MD - 06/03/2023 10:11 PM ESTAssociated Problem(s): Hypertension BP mildly elevated 142/90, likely exac'd by severe left hip/groin pain; cont irbesartan 300mg QD #90, 3RF; needs electrolytes for drug monitoring * Betsy Smith MD - 06/03/2023 10:11 PM ESTAssociated Problem(s): B12 deficiency Update B12 level; no current supplementation * Betsy Smith MD - 06/03/2023 10:11 PM ESTAssociated Problem(s): Vitamin D deficiency Update vit D level on 1000 units QD supplementation * Betsy Smith MD - 06/03/2023 10:10 PM ESTAssociated Problem(s): CKD (chronic kidney disease), stage III Needs updated Cr and GFR; avoid NSAIDs; drink enough water daily; will need to d/c metformin if GFR< 30 * Betsy Smith MD - 06/03/2023 10:04 PM ESTAssociated Problem(s): Medicare annual wellness visit, subsequent Health maintenance - flu vacc 03/29; rec COVID19 vacc, rec RSV vacc - counseling given and rec getting at pharmacy (pain clinic instructed her to avoid vacc after pain injections); Prevnar 02/18; PVX1/; Tdap 05/27 (next Td due 2030), Shingrix [...] Greenwood MD as Consulting Physician (Pain Medicine) * Betsy Smith MD - 06/03/2023 10:02 PM ESTAssociated Problem(s): Osteoarthritis of left hip Reviewed MRI L hip results, indicating severe degen changes, mod joint effusion, and abnl surrounding soft tissue, further worsened since 01/27 fall; rec ortho consultation * Betsy Smith MD - 06/03/2023 10:01 PM ESTAssociated Problem(s): Osteoporosis Calcium and vitamin D supplementation with weight-bearing exercise; remains on alendronate 70mg weekly #13, 3RF; DEXA 11/26, repeat 2024 * Betsy Smith MD - 06/03/2023 10:01 PM ESTAssociated Problem(s): Spinal stenosis of lumbar region with neurogenic claudication Poor surgical candidate per Dr. Artis; note also severe L hip pathology on MRI; f/u Pain clinic next week - reports 2 injections were ineffective; has NS f/u with Dr. Artis pending 06/13/23; current chief complaint is in left hip and groin area * Betsy Smith MD - 06/03/2023 10:00 PM ESTAssociated Problem(s): Type 2 diabetes mellitus with stage 3b chronic kidney disease, without long-term current use of insulin BG control stable with A1C 6.4; cont met ER 750mg 2 QD #180, 3RF and amita 30mg QD #90, 3RF; cont to monitor renal function on metformin; encouraged reg phys activity to decr insulin resistance, moderation in unhealthy starches/sweets; f/u A1C in 6 mos * Betsy Smith MD - 06/03/2023 9:59 PM ESTAssociated Problem(s): Hyperlipidemia Needs updated lipids on zetia 10mg QD - renew when labs available; goal LDL < 70 documented in this encounter Plan of Treatment Upcoming Encounters Date Type Department Care Team (Late st Contact Info) Description 06/09/2024 3:00 PM EST Office Visit [facility] [address] [place] [phone] Betsy Smith MD [address] [place] [address] [id number] Scheduled Referrals Name Type Priority Associated Diagnoses Order Schedule Ambulatory Referral to Orthopedic Surgery Outpatient Referral Routine Osteoarthritis of left hip Ordered: 06/05/2023 documented as of this encounter Procedures Procedure Name Priority Date/Time Associated Diagnosis Comments POCT GLYCOSYLATED HEMOGLOBIN (HGB A1C) Routine 06/05/2023 11:36 AM EST Type 2 diabetes mellitus with stage 3b chronic kidney disease, without long-term current use of insulin ECG 12-LEAD Routine 06/05/2023 10:58 AM EST Hypertension documented in this encounter Results * (ABNORMAL) POC Glycosylated Hemoglobin (Hb A1C) (06/05/2023 11:36 AM EST) Hemoglobin A1C 6.4(A) 4.5 - 5.7 % [facility] Lot Number [id number] [facility] Expiration Date 11/05/24 [facility] Blood 06/05/2023 11:3 6 AM EST Betsy Smith MD POINT OF CARE TEST ORDERABLES Fi nal Result [facility]
[address] [place] [address], * ECG 12-LEAD (06/05/2023 10:58 AM EST) Narrative Anika Varghese - 06/05/2023 10:58 AM EST Betsy Smith MD ? 06/05/2023 ??2:04 PM ECG 12 Lead Date/Time: 06/05/2023 10:58 AM Performed by: Betsy Smith MD Authorized by: Betsy Smith MD ??Comparison: compared with previous ECG from 06/05/2023 Similar to previous ECG Rhythm: sinus rhythm Rate: normal BPM: 76 Conduction: conduction normal ST Segments: ST segments normal T Waves: T waves normal QRS axis: normal Clinical impression: normal ECG Clinical impression comment: stable EKG Procedure Note Betsy Smith MD - 06/05/2023 11:00 AM EST ANNUAL WELLNESS VISIT DRUG AND ALCOHOL USE no alcohol use and no tobacco use DIET AND PHYSICAL ACTIVITY Diet: unhealthy Exercise: never - current limited by left hip/back pain Exercise Details: none MOOD DISORDER AND COGNITIVE SCREENING PHQ-2 Depression Screening - components reviewed with patient; screeningis positive for active depression. This is situational since 01/27 afterfall due to persistent left hip/back pain. Has support of family. Couldconsider meds if no pain interventions become successful. F/u in 3 mos; >16 min counseling. Little interest or pleasure in doing things? 3-->nearly every day0 Feeling down, depressed, or hopeless? 3-->nearly every day0 PHQ-2 Total Score 6 Anxiety Screening Tool Used YES AUDIT screening 0 Mini-Cog Performed Yes 1. Tell Patient 3 Words Tree, book car 2. Administer Clock Test abnormal 3. Recall 3 words Tree, car 4. Number Correct Items 2 FUNCTIONAL ABILITY AND LEVEL OF SAFETY Hearing no hearing loss Wears Hearing Aids No Current Activities Moderate assistance difficulty with walking - see Funct/Cog Status Intake Fall Risk Assessment Has difficulty with walking or balance Yes Timed Up and Go (TUG) Test unable to complete due to severe lefthip/groin pain - abnl gait ADVANCED DIRECTIVE Advance Care Planning ACP discussion was held with the patient during this visit. Patient has anadvance directive in EMR which is still valid. Advance Care Planning Discussion: 16 min or more spent on counseling; patient has advanced directive andliving will. Reviewed desires for end of life care, which is to havecomfort care. Patient does not want extraordinary life-sustainingmeasures, including no prolonged artificial life support. Encouragedpatient to ensure family is aware of desires/preferences. Confirmed Deny is her healthcare surrogate. Son is with her today and I advised himthat he was the HCS. PAIN SCREENING Do you have pain right now? yes If so, 1-10 scale: 10+ Keeps awake at night, Wakes from sleep, Constant Do you have pain every day? Yes Probable chronic pain: only since 01/2023 after fall Recent Hospitalizations: No hospitalization(s) within the last year.. MEDICATION REVIEW - updated and reviewed (see Medication List). - reviewed for potentially harmful drug-disease interactions in theelderly. - reviewed for high risk medications in the elderly. - aspirin use: No BMI Body mass index is 23.55 kg/m??. BMI is within normal parameters. No other follow-up for BMI required. Chief Complaint Patient presents with Medicare Wellness-subsequent History of Present Illness 88 y.o. female presents for updated wellness visit and f/u onBP, cholesterol, kidney disease as well as f/u on DM, BP, cholesterol, CKDand left hip/groin pain. Reports injection in left hip and left groin perpain clinic, Dr. Mcneal in [place]; states injections did not help.Was told there was nothing she could take for pain, including tylenol, andwas told she could not get vaccines after the 2 shots. Has pain clinic f/u in about 1wk and also f/u with Dr. Artis. Reportsgabapentin RX'd by Dr. Artis did not help her pain. Review of Systems Denies headaches, visual changes, CP, palpitations, SOB, cough, abd pain,n/v/d, difficulty with urination, numbness/tingling, falls, mood changes,lightheadedness, hearing changes, rashes. Denies vaginal discharge or bleeding (no periods) or breast concerns. ROS (+) for severe left hip/groin pain x 3-4 months after fall. Has gottenmore debilitated since then. No phys activity - used to mow the lawn priorto this injury. All other ROS reviewed and negative. Current Outpatient Medications: alendronate (FOSAMAX) 70 MG weekly calcium carbonate (OS-ANUEL) 600 MG BID cholecalciferol (VITAMIN D3) 1000 units QD ezetimibe 10mg QD irbesartan 300 MG QD metFORMIN ER 750 MG 2 QD ICAPS AREDS 2 QD Smooth Move Tea QHS Omeprazole 20 MG 2 QD pioglitazone 30 MG QD OPIOID SCREENING: The patient does not have opioid prescription on her medication list - nolonger on tramadol. Medication list has been reviewed with the patientregarding potentially high risk medications and harmful drug interactionsin patients over age 65. Note potential sedating s/e from gabapentin, RX'dby Dr. Artis. VITALS: BP 142/90 Pulse 102 Temp 97.6 ??F (36.4 ??C) Resp 16 Ht 167.7 cm(66.02 ) Wt 66.2 kg (146 lb) SpO2 100% BMI 23.55 kg/m?? Physical Exam Vitals and nursing note reviewed. Constitutional: General: She is not in acute distress. Appearance: Normal appearance. She is well-developed. HENT: Head: Normocephalic. Right Ear: Ear canal and external ear normal. Left Ear: Ear canal and external ear normal. Nose: Nose [...] breath sounds. No wheezing, rhonchi or rales. Abdominal: General: Bowel sounds are normal. There is no distension. Palpations: Abdomen is soft. There is no mass. Tenderness: There is no abdominal tenderness. Genitourinary: Comments: Breast exam declined by patient Musculoskeletal: General: Tenderness (unable to lift up left knee while seated; minimalROM left hip) present. Cervical back: Normal range of motion and neck supple. Lymphadenopathy: Cervical: No cervical adenopathy. Skin: General: Skin is warm and dry. Findings: No rash. Neurological: Mental Status: She is alert. Psychiatric: Mood and Affect: Mood normal. Behavior: Behavior normal. LABS Results for orders placed or performed in visit on 06/05/23 POC Glycosylated Hemoglobin (Hb A1C) Specimen: Blood Result Value Ref Range Hemoglobin A1C 6.4 (A) 4.5 - 5.7 % Lot Number [id number] Expiration Date 11/05/24 Results for orders placed or performed in visit on 09/22/22 POC Glycosylated Hemoglobin (Hb A1C) Specimen: Blood Result Value Ref Range Hemoglobin A1C 6.3 % Lot Number [id number] Expiration Date 06/06/2024 05/25/23 MRI L hip - severe degen change worsened from 03/29, mod jointeffusion, bone marrow edema, anl soft tissue around fem head/neck 04/02/23 MRI L-spine - multilevel adv degen changes, mod-severe diskbulges with canal stenoses and neuroforaminal stenoses, most severe atL4-5 ECG 12 Lead Date/Time: 06/05/2023 10:58 AM Performed by: Betsy Smith MD Authorized by: Betsy Smith MD Comparison: compared with previous ECGfrom 06/05/2023 Similar to previous ECG Rhythm: sinus rhythm Rate: normal BPM: 76 Conduction: conduction normal ST Segments: ST segments normal T Waves: T waves normal QRS axis: normal Clinical impression: normal ECG Clinical impression comment: stable EKG ASSESSMENT/PLAN Diagnoses and all orders for this visit: 1. Medicare annual wellness visit, subsequent (Primary) Assessment & Plan: Health maintenance - flu vacc 03/29; rec COVID19 vacc, rec RSV vacc -counseling given and rec getting at pharmacy (pain clinic instructed herto avoid vacc after pain injections); Prevnar 02/18; PVX 03/16; Tdap 05/27(next Td due 2030), Shingrix and HAV done; mammo 06/01/20 - pt requests nofurther breast CA screening unless abnlities; no further Paps unelssabnlities; DEXA 11/26, repeat 2024 colonosc 2007 and Cologuard 03/24 - nofurther colon CA screening unless abnlities; eye exam w/ Dr. Duque03/21/23; dental exam TBD; (+)seat belt use Consultants: Patient Care Team: Betsy Smith MD as PCP - Ed Aragon MD as Consulting Physician (Ophthalmology) Julito Shen MD as Consulting Physician(Gastroenterology) Kristal Valente (Audiology) Isidro Artis MD as Consulting Physician (Neurosurgery) Steve Greenwodo MD as Consulting Physician (Pain Medicine) 2. Hypertension Assessment & Plan: BP mildly elevated 142/90, likely exac'd by severe left hip/groin pain;cont irbesartan 300mg QD #90, 3RF; needs electrolytes for drugmonitoring Orders: - irbesartan (AVAPRO) 300 MG tablet; Take 1 tablet by mouth Daily.Dispense: 90 tablet; Refill: 3 - ECG 12 Lead 3. Hyperlipidemia Assessment & Plan: Needs updated lipids on zetia 10mg QD - renew when labs available; goalLDL < 70 Orders: - ezetimibe (Zetia) 10 MG tablet; Take 1 tablet by mouth Daily.Dispense: 90 tablet; Refill: 3 4. Type 2 diabetes mellitus with stage 3b chronic kidney disease, withoutlong- term current use of insulin Assessment & Plan: BG control stable with A1C 6.4; cont met ER 750mg 2 QD #180, 3RF and [id number] QD #90, 3RF; cont to monitor renal function on metformin; encouragedreg phys activity to decr insulin resistance, moderation in unhealthystarches/sweets; f/u A1C in 6 mos Orders: - POC Glycosylated Hemoglobin (Hb A1C) - metFORMIN ER (GLUCOPHAGE-XR) 750 MG 24 hr tablet; Take 2 tablets bymouth Daily With Breakfast. Dispense: 180 tablet; Refill: 3 - pioglitazone (ACTOS) 30 MG tablet; Take 1 tablet by mouth Daily.Dispense: 90 tablet; Refill: 3 5. Stage 3a chronic kidney disease Assessment & Plan: Needs updated Cr and GFR; avoid NSAIDs; drink enough water daily; willneed to d/c metformin if GFR < 30 6. Vitamin D deficiency Assessment & Plan: Update vit D level on 1000 units QD supplementation 7. B12 deficiency Assessment & Plan: Update B12 level; no current supplementation 8. Osteoporosis Assessment & Plan: Calcium and vitamin D supplementation with weight-bearing exercise;remains on alendronate 70mg weekly #13, 3RF; DEXA 11/26, repeat 2024 Orders: - alendronate (FOSAMAX) 70 MG tablet; Take 1 tablet by mouth 1 (One)Time Per Week. Dispense: 13 tablet; Refill: 3 9. Osteoarthritis of left hip Assessment & Plan: Reviewed MRI L hip results, indicating severe degen changes, mod jointeffusion, and abnl surrounding soft tissue, further worsened since 01/27fall; rec ortho consultation Orders: - Ambulatory Referral to Orthopedic Surgery 10. Spinal stenosis of lumbar region with neurogenic claudication Assessment & Plan: Poor surgical candidate per Dr. Artis; note also severe L hip pathologyon MRI; f/u Pain clinic next week - reports 2 injections were ineffective;has NS f/u with Dr. Artis pending 06/13/23; current chief complaint is inleft hip and groin area FOLLOW-UP Needs fasting PE labs - lab order given to obtain at [facility] RTC 3 mos for depression and memory follow-up, 30-min with [facility] RTC 6 mos with A1C Electronically signed by: Betsy Smith MD, FACP 06/05/2023 us Betsy Smith MD ECG ORDERABLES Final Result documented in this encounter Visit Diagnoses Diagnosis Medicare annual wellness visit, subsequent- Primary Hypertension Unspecified essential hypertension Hyperlipidemia Pure hypercholesterolemia Type 2 diabetes mellitus with stage 3b chronic kidney disease, without long-term current use of insulin Stage 3a chronic kidney disease Vitamin D deficiency B12 deficiency Osteoporosis Osteoarthritis of left hip Spinal stenosis of lumbar region with neurogenic claudication documented in this encounter Additional Health Concerns Assessment Noted Time PHQ-2 Depression Total Score: 6 06/05/19 24 10:41 AM EST documented as of this encounter Care Teams Astrochemist Relationship Specialty Start Date End Date Betsy Smith MD [address] [place] [address] PCP - General 02/08/15 documented as of this encounter
--- OUTSIDE RECORDS SUMMARY | 2024-03-25 02:49 | XMS_ITS | Encounter Summary ---
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 Not on le documented as of this encounter Plan of Treatment Upcoming Encounters Date Type Department Care Team (Late st Contact Info) Description 06/09/2024 3:00 PM EST Office Visit [facility] [address] [place] [phone] Betsy Smith MD [address] [place] [address] documented as of this encounter Visit Diagnoses Diagnosis Osteoporosis documented in this encounter Additional Health Concerns Assessment Noted Time PHQ-2 Depression Total Score: 2 03/24/20 22 2:18 PM EST documented as of this encounter Care Teams Cyber Operator Relationship Specialty Start Date End Date Betsy Smith MD [address] [place] [address] [phone] PCP - General 02/08/15 documented as of this encounter
--- OUTSIDE RECORDS SUMMARY | 2024-03-25 02:49 | XMS_ITS | Encounter Summary ---
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 Not on fi le documented as of this encounter Miscellaneous Notes * Telephone Encounter - Brittany Hastings MA - 07/03/2021 4:13 PM EST Refilled for 1 year supply 03/21/21 documented in this encounter Plan of Treatment Upcoming Encounters Date Type Department Care Team (Late st Contact Info) Description 06/09/2024 3:00 PM EST Office Visit [facility] [address] [place] [phone] Betsy Smith MD [address] [place] [address] [phone] documented as of this encounter Visit Diagnoses Diagnosis Osteoporosis documented in this encounter Care Teams Maintenance Scheduler Relationship Specialty Start Date End Date Betsy Smith MD [address] [place] [address] PCP - General 02/08/15 documented as of this encounter
--- OUTSIDE RECORDS SUMMARY | 2024-03-25 02:50 | XMS_ITS | Encounter Summary ---
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 Not on fi le documented as of this encounter Plan of Treatment Upcoming Encounters Date Type Department Care Team (Late Contact Info) Description 06/09/2024 3:00 PM EST Office Visit [facility] INTER[facility] MEDICINE [address] [place] [phone] [place] [address] [place] [address] [phone] documented as of this encounter Visit Diagnoses Diagnosis Hyperlipidemia Pure hypercholesterolemia Type 2 diabetes mellitus with stage 3b chronic kidney disease, without long-term current use of insulin documented in this encounter Care Teams Truck Dock Material Mover Relationship Specialty Start Date End Date Betsy Smith MD [address] [place] [address] [phone] PCP - General 02/08/15 documented as of this encounter
--- OUTSIDE RECORDS SUMMARY | 2024-03-25 02:50 | XMS_ITS | Encounter Summary ---
Author Organization [facility] ystem Address [address] [place] [address] Care Team Providers Care Collision Worker Name Role Phone Betsy Smith MD Primary Care Provider [phone] Reason for Visit * Reason Comments Med Refill Encounter Details Date Type Department Care Team ([facility] Contact Info) Description 03/07/2021 Refill [facility] INTER[facility] MEDICINE [address] [place] [phone] [place] [address] [place] [phone] Osteoporosis Social History Tobacco Use Types [...] 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 Not on le documented as of this encounter Plan of Treatment Upcoming Encounters Date Type Department Care Team ([facility] Contact Info) Description 06/09/2024 3:00 PM EST Office Visit [facility] MEDIC[facility] [address] [place] [phone] Betsy Smith MD [address] [place], [place] [phone] documented as of this encounter Visit Diagnoses Diagnosis Osteoporosis documented in this encounter Care Teams Collision Worker Relationship Specialty Start Date End Date Betsy Smith MD [address] [place] [phone] PCP - General 02/08/15 documented as of this encounter
--- OUTSIDE RECORDS SUMMARY | 2024-03-25 02:50 | XMS_ITS | Encounter Summary ---
Author Organization [facility] ystem Address [address] [place] [address] Care Team Providers Care Cash Analyst Name Role Phone Betsy Smith MD Primary Care Provider [phone] Reason for Visit * Reason Comments Hypertension Encounter Details Date Type Department Care Team ([facility] st Contact Info) Description 05/18/2020 2:45 PM EST Office Visit [facility] INTER[facility] MEDICINE [address] [place] [phone] Betsy Smith MD [address] [place] [address] Hypertension (Primary Dx); Stage 3a chronic kidney disease; Constipation Social History Tobacco Use Types Packs/Day Years [...] 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 Not on fi le documented as of this encounter Last Filed Vital Signs Vital Sign Reading Time Taken Comments Blood Pressure 132/62 05/18/2020 2:35 PM EST Pulse 70 05/18/2020 2:35 PM EST Temperature - - Respiratory Rate - - Oxygen Saturation 98% 05/18/2020 2:35 PM EST Inhaled Oxygen Concentration - - Weight 72.1 kg (159 lb) 05/18/2020 2:35 PM EST Height 166.4 cm (5' 5.5 ) 05/18/2020 2:35 PM EST Body Mass Index 26.06 05/18/2020 2:35 PM EST documented in this encounter Progress Notes * Betsy Smith MD - 05/18/2020 5:33 PM ESTAssociated Problem(s): Constipation Continue fiber supplement, Colace stool softener, and encouraged increased water intake; resume MiraLAX 1 cup daily; follow-up in 2 weeks * Betsy Smith MD - 05/18/2020 2:45 PM EST Chief Complaint Patient presents with ??? Hypertension History of Present Illness 85 y.o. woman presents for BP f/u after addition of losartan and decreased dose of amlodipine. Home BPs have been 130s/systolic with her wrist cuff. Her blood pressure medication situation is actually quite confusing. She accidentally threw away the new bottle of amlodipine and kept the empty bottle; therefore, she has not taken any amlodipine over the last 1-2 weeks. In addition she did not realize she received the losartan with a batch of medications and therefore, did not start taking losartan 50 mg until about 1 week ago. No side effects with losartan but again no amlodipine on board. Bent shaky when blood sugars went down to the 70s. Has seen ENT regarding dizziness. States that when she gets up in the middle the night, she has severe dizziness. She was given a medication for this but does not know whether it is exacerbating her memory. She is having some issues with word finding as well as just absentmindedness, such as throwing awaythe full bottle of amlodipine and keeping the empty bottle. Still complains of constipation despite powder fiber supplementation. Does note that the stools areless hard with the stool softener. Reports remote history of taking MiraLAX when it was a prescription. Review of Systems ROS (+) for bord BPs with med mishaps. Also reports nighttime dizziness but has not fallen. Reportsword finding and absentmindedness issues, since her last visit here. ROS (+) for constipation but no longer hard stools. All other ROS reviewed and negative. Current Outpatient Medications: ??? alendronate (FOSAMAX) 70 MG weekly ??? calcium carbonate (OS-ANUEL) 600 MG BID ??? cholecalciferol (VITAMIN D3) 1000 units QD ??? ezetimibe (Zetia) 10 MG QD ??? losartan (COZAAR) 50 MG QD ??? metFORMIN ER (GLUCOPHAGE-XR) 750 MG 2 QD ??? NON FORMULARY, Smooth Move Tea QHS QD ??? Omeprazole 20 MG Tablet QD ??? pioglitazone (ACTOS) 30 MG QD ??? vitamin B-12 (CYANOCOBALAMIN) 500 MCG QD VITALS: BP 132/62 Pulse 70 Ht 166.4 cm (65.5 ) Wt 72.1 kg (159 lb) SpO2 98% BMI 26.06 kg/m?? Repeat BP on her right wrist cuff is 156/80, pulse 74 Manual BP, right, 164/68 Manual BP, left, 158/64 Physical Exam Vitals signs and nursing note reviewed. Constitutional: General: She is not in acute distress. Appearance: Normal appearance. Eyes: Extraocular Movements: Extraocular movements intact. Conjunctiva/sclera: Conjunctivae normal. Cardiovascular: Rate and Rhythm: Normal rate and regular rhythm. Heart sounds: Normal heart sounds. Pulmonary: Effort: Pulmonary effort is normal. No respiratory distress. Breath sounds: Normal breath sounds. No wheezing or rales. Neurological: Mental Status: She is alert and oriented to person, place, and time. Mental status is at baseline. Gait: Gait normal. Psychiatric: Mood and Affect: Mood normal. Behavior: Behavior normal. LABS Results for orders placed or performed in visit on 04/14/20 Hemoglobin A1c Specimen: Blood Result Value Ref Range Hemoglobin A1C 6.20 (H) 4.80 - 5.60 % Basic Metabolic Panel Specimen: Blood Result Value Ref Range Glucose 93 65 - 99 mg/dL BUN 19 8 - 23 mg/dL Creatinine 1.12 (H) 0.57 - 1.00 mg/dL Sodium 140 136 - 145 mmol/L Potassium 4.7 3.5 - 5.2 mmol/L Chloride 103 98 - 107 mmol/L CO2 24.4 22.0 - 29.0 mmol/L Calcium 9.8 8.6 - 10.5 mg/dL eGFR Non Amer 46 (L) >60 mL/min/1.73 BUN/Creatinine Ratio 17.0 7.0 - 25.0 Anion Gap 12.6 5.0 - 15.0 mmol/L ASSESSMENT/PLAN Diagnoses and all orders for this visit: 1. Hypertension (Primary) Assessment & Plan: BP elevated on on losartan 50mg QD; note she actually threw away her amlodipine and does not think that pharmacy will refill it; incr losartan to 100mg QD #30, 1RF; cont home monitoring with her wrist cuff and f/u in 2 wks Orders: - losartan (COZAAR) 100 MG tablet; Take 1 tablet by mouth Daily. Dispense: 30 tablet; Refill: 1 2. Stage 3a chronic kidney disease Assessment & Plan: F/u BMP with addition of losartan; cont to work on maintaining good BG and BP control; avoid NSAIDs; drink enough water on daily basis 3. Constipation Assessment & Plan: Continue fiber supplement, Colace stool softener, and encouraged increased water intake; resume MiraLAX 1 cup daily; follow-up in 2 weeks FOLLOW-UP 1. F/u in 2 wks for BP check and BMP 2. Health maintenance - flu vacc 03/26; COVID19 vacc when available; Td due this year (Tdap 10/15) -rec getting at pharmacy and obtaining documentation for her chart; mammo pending 05/31/20 Electronically signed by: Betsy Smith MD, FACP 05/18/2020 * Betsy Smith MD - 05/16/2020 9:11 PM ESTAssociated Problem(s): Hypertension BP elevated on on losartan 50mg QD; note she actually threw away her amlodipine and does not think that pharmacy will refill it; incr losartan to 100mg QD #30, 1RF; cont home monitoring with her wrist cuff and f/u in 2 wks * Betsy Smith MD - 05/16/2020 9:11 PM ESTAssociated Problem(s): CKD (chronic kidney disease), stage III F/u BMP with addition of losartan; cont to work on maintaining good BG and BP control; avoid NSAIDs; drink enough water on daily basis documented in this encounter Plan of Treatment Upcoming Encounters Date Type Department Care Team (Late st Contact Info) Description 06/09/2024 3:00 PM EST Office Visit [facility] INTERNAL MEDICINE [address] [place] [phone] Betsy Smith MD [address] [place] [phone] documented as of this encounter Visit Diagnoses Diagnosis Hypertension- Primary Unspecified essential hypertension Stage 3a chronic kidney disease Constipation Unspecified constipation documented in this encounter Care Teams Cash Analyst Relationship Specialty Start Date End Date Betsy Smith MD [address] [place] [address] [phone] PCP - General 02/08/15 documented as of this encounter
--- OUTSIDE RECORDS SUMMARY | 2024-03-25 02:50 | XMS_ITS | Encounter Summary ---
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 Please make appt in 4 weeks for BP follow-up since we stopped one of her BP meds and BP was high ather last visit. Make sure checking BPs at home and bring readings to OV documented in this encounter Plan of Treatment Upcoming Encounters Date Type Department Care Team (Late st Contact Info) Description 06/09/2024 3:00 PM EST Office Visit [facility] INTER[facility] MEDICINE [address] [place] [phone] [place] [address] [place] [address] [phone] documented as of this encounter Procedures Procedure Name Priority Date/Time Associated Diagnosis Comments HEMOGLOBIN A1C Routine 04/14/2020 11:31 AM EST Medicare annual wellness visit, subsequent BASIC METABOLIC PANEL Routine 04/14/2020 11:31 AM EST Medicare annual wellness visit, subsequent documented in this encounter Results * (ABNORMAL) Basic Metabolic Panel (04/14/2020 11:31 AM EST) Glucose 93 65 - 99 mg/dL 04/15/2020 12:56 AM EST [facility] BUN 19 8 - 23 mg/dL 04/15/2020 12:56 AM EST [facility] Creatinine 1.12(H) 0.57 - 1.00 mg/dL 04/15/2020 12:56 AM EST [facility] Sodium 140 136 - 145 mmol/L 04/15/2020 12:56 AM EST [facility] Potassium 4.7 3.5 - 5.2 mmol/L 04/15/2020 12:56 AM EST [facility] Chloride 103 98 - 107 mmol/L 04/15/2020 12:56 AM EST [facility] CO2 24.4 22.0 - 29.0 mmol/L 04/15/2020 12:56 AM EST [facility] Calcium 9.8 8.6 - 10.5 mg/dL 04/15/2020 12:56 AM EST [facility] eGFR Non Amer 46(L) >60 mL/min/1.7 3 04/15/2020 12:56 AM EST [facility] BUN/Creatinine Ratio 17.0 7.0 - 25.0 04/15/2020 12:56 AM EST [facility] Anion Gap 12.6 5.0 - 15.0 mmol/L 04/15/2020 12:56 AM EST [facility] Blood Venipuncture / Unknown 04/14/2020 11:31 AM EST 04/14/2020 11:31 AM EST [facility] - 04/15/2020 12:56 AM EST GFR Normal >60 Chronic Kidney Disease <60 Kidney Failure <15 Betsy Smith MD LAB BLOOD ORDERABLES Final Resul t Performing Organization Address [facility] Phone Number [facility]
[address] [place] [address], * (ABNORMAL) Hemoglobin A1c (04/14/2020 11:31 AM EST) Hemoglobin A1C 6.20(H) 4.80 - 5.60 % 04/14/2020 11:55 PM EST [facility] Blood Venipuncture / Unknown 04/14/2020 11:31 AM EST 04/14/2020 11:31 AM EST [facility] - 04/14/2020 11:55 PM EST Hemoglobin A1C Ranges: Increased Risk for Diabetes ??5.7% to 6.4% Diabetes ? >= 6.5% Diabetic Goal ?< 7.0% Betsy Smith MD LAB BLOOD ORDERABLES Final Resul t Performing Organization Address [facility] de Phone Number [facility]
[address] [place] [address], documented in this encounter Visit Diagnoses Diagnosis Medicare annual wellness visit, subsequent- Primary documented in this encounter Care Teams Outpatient Case Manager Relationship Specialty [place] [address] [place] [phone] PCP - General 02/08/15 documented as of this encounter
--- OUTSIDE RECORDS SUMMARY | 2024-03-25 02:50 | XMS_ITS | Encounter Summary ---
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 She will start Amlodipine and stop the amlodipine-benazepril. She will check BP's and has appt next Sunday and have blood work done Sunday. * Telephone Encounter - Belle Bishop MA - 03/30/2020 9:00 AM EST ----- Message from Betsy Smith MD sent at 03/27/2020 4:08 PM EST ----- Sodium remains borderline and kidney function worsened again. Potassium also borderline elevated. For now, change amlo/benaz to plain amlodipine 10mg QD #30, 0RF. This may cause a little leg swelling. Check BPs at home and f/u in 1 week - pls get BMP 1-2 days before appointment, nonfasting. documented in this encounter Plan of Treatment Upcoming Encounters Date Type Department Care Team (Late st Contact Info) Description 06/09/2024 3:00 PM EST Office Visit [facility] INTER[facility] MEDICINE [address] [place] [phone] Betsy Smith MD [address] [place] [phone] documented as of this encounter Visit Diagnoses Diagnosis Hypertension- Primary Unspecified essential hypertension documented in this encounter Care Teams Operations Project Manager Relationship Specialty Start Date End Date Betsy Smith MD [address] [place] [phone] PCP - General 02/08/15 documented as of this encounter
--- OUTSIDE RECORDS SUMMARY | 2024-03-25 02:50 | XMS_ITS | Encounter Summary ---
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 Will repeat labs in 2 weeks, states that she does not take any additional potassium. She would like referral to audiology. * Telephone Encounter - Kayla Matthew RegSched Rep - 03/15/2020 1:05 PM EST PATIENT RETURNED YOUR CALL * Telephone Encounter - Belle Bishop MA - 03/15/2020 10:22 AM EST Left VM to call office. * Telephone Encounter - Belle Bishop MA - 03/15/2020 10:22 AM EST ----- Message from Betsy Smith MD sent at 03/13/2020 2:36 PM EST ----- Kidney function much better, back to baseline, but sodium level is low and potassium is bord elevated. Please ensure not taking any vitamins or supplements with potassium. Repeat BMP in 2 weeks - nonfasting documented in this encounter Plan of Treatment Upcoming Encounters Date Type Department Care Team (Late st Contact Info) Description 06/09/2024 3:00 PM EST Office Visit [facility] [address] [place] [phone] Betsy Smith MD [address] [place] [phone] documented as of this encounter Visit Diagnoses Not on filedocumented in this encounter Care Teams Sports Management Internship Relationship Specialty Start Date End Date Betsy Smith MD [address] [place] [address] PCP - General 02/08/15 documented as of this encounter
--- OUTSIDE RECORDS SUMMARY | 2024-03-25 02:50 | XMS_ITS | Encounter Summary ---
Author Organization 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 Labs ordered. * Telephone Encounter - Belle Bishop MA - 07/05/2020 9:23 AM EST ----- Message from Betsy Smith MD sent at 07/05/2020 1:07 AM EST ----- Kidney function borderline but abnl elevated calcium level. Please repeat BMP with ionized Ca and PTH in 1-2 weeks - should be nonfasting and well-hydrated documented in this encounter Plan of Treatment Upcoming Encounters Date Type Department Care Team (Late st Contact Info) Description 06/09/2024 3:00 PM EST Office Visit [facility] [address] [place] [phone] [place] [address] [place] [address] documented as of this encounter Results * PTH, Intact & Calcium (07/19/2020 11:28 AM EDT) PTH, Intact 26.7 15.0 - 65.0 pg/mL 07/20/2020 12:07 AM EDT [facility] Calcium 10.2 8.6 - 10.5 mg/dL 07/20/2020 12:07 AM EDT [facility] Blood Venipuncture / Unknown 07/19/2020 11:28 AM EDT 07/19/2020 11:28 AM EDT Narrative [facility] - 07/20/2020 12:07 AM EDT PTH results may be falsely decreased if patient taking Biotin. us Betsy Smith MD LAB BLOOD ORDERABLES Final Resul t [facility]
[address] [place] [address], * (ABNORMAL) Calcium, Ionized (07/19/2020 11:28 AM EDT) Ionized Calcium 1.40(H) 1.15 - 1.35 mmol/L 07/20/2020 12:03 AM EDT [facility] Ionized Calcium 5.6(H) 4.6 - 5.4 mg/dL 07/20/2020 12:03 AM EDT [facility] Blood Venipuncture / Unknown 07/19/2020 11:28 AM EDT 07/19/2020 11:28 AM EDT us Betsy Smith MD LAB BLOOD ORDERABLES Final Resul t [facility]
[address] [place] [address], * (ABNORMAL) Basic Metabolic Panel (07/19/2020 11:28 AM EDT) Pathologist [facility] Glucose 130(H) 65 - 99 mg/dL 07/20/2020 12:19 AM T [facility] BUN 24(H) 8 - 23 mg/dL 07/20/2020 12:19 AM [facility] Creatinine 1.23(H) 0.57 - 1.00 mg/dL 07/20/2020 12:19 AM [facility] Sodium 137 136 - 145 mmol/L 07/20/2020 12:19 AM [facility] Potassium 4.8 3.5 - 5.2 mmol/L 07/20/2020 12:19 AM T [facility] Chloride 99 98 - 107 mmol/L 07/20/2020 12:19 AM [facility] CO2 26.7 22.0 - 29.0 mmol/L 07/20/2020 12:19 AM [facility] Calcium 10.0 8.6 - 10.5 mg/dL 07/20/2020 12:19 AM [facility] eGFR Non Amer 42(L) >60 mL/min/1.7 3 07/20/2020 12:19 AM EDT [facility] BUN/Creatinine Ratio 19.5 7.0 - 25.0 07/20/2020 12:19 AM EDT [facility] Anion Gap 11.3 5.0 - 15.0 mmol/L 07/20/2020 12:19 AM EDT [facility] Blood Venipuncture / Unknown 07/19/2020 11:28 AM EDT 07/19/2020 11:28 AM EDT Narrative [facility] - 07/20/2020 12:19 AM EDT GFR Normal >60 Chronic Kidney Disease <60 Kidney Failure <15 Betsy Smith MD LAB BLOOD ORDERABLES Final Resul t [facility]
[address] [place] [address], documented in this encounter Visit Diagnoses Diagnosis Stage 3a chronic kidney disease- Primary Serum calcium elevated Hypercalcemia documented in this encounter Care Teams Animal Treatment Investigator Relationship Specialty Start Date End Date Betsy Smith MD [address] [place] [address] PCP - General 02/08/15 documented as of this encounter
--- OUTSIDE RECORDS SUMMARY | 2024-03-25 02:50 | XMS_ITS | Encounter Summary ---
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 Not on fi le documented as of this encounter Progress Notes * Betsy Smith MD - 03/25/2020 11:35 AM EST Sodium remains borderline and kidney function worsened [...] 06/09/2024 3:00 PM EST Office Visit [facility] [address] [place] [phone] Betsy Smith MD [address] [place] [address] documented as of this encounter Procedures Procedure Name Priority Date/Time Associated Diagnosis Comments HEMOGLOBIN A1C Routine 03/25/2020 11:36 AM EST Type 2 diabetes mellitus with stage 3b chronic kidney disease, without long-term current use of insulin BASIC METABOLIC PANEL Routine 03/25/2020 11:36 AM EST Stage 3b chronic kidney disease documented in this encounter Results * (ABNORMAL) Hemoglobin A1c (03/25/2020 11:36 AM EST) Hemoglobin A1C 6.05(H) 4.80 - 5.60 % 03/25/2020 11:33 PM EST [facility] Blood Venipuncture / Unknown 03/25/2020 11:36 AM EST 03/25/2020 11:36 AM EST Narrative [facility] - 03/25/2020 11:33 PM EST Hemoglobin A1C Ranges: Increased Risk for Diabetes ??5.7% to 6.4% Diabetes ? >= 6.5% Diabetic Goal ?< 7.0% us Betsy Smith MD LAB BLOOD ORDERABLES Final Resul t [facility]
[address] [place] [address], * (ABNORMAL) Basic Metabolic Panel (03/25/2020 11:36 AM EST) Glucose 85 65 - 99 mg/dL 03/26/2020 12:04 AM [facility] BUN 26(H) 8 - 23 mg/dL 03/26/2020 12:04 AM [facility] Creatinine 1.23(H) 0.57 - 1.00 mg/dL 03/26/2020 12:04 AM [facility] Sodium 132(L) 136 - 145 mmol/L 03/26/2020 12:04 AM [facility] Potassium 5.4(H) 3.5 - 5.2 mmol/L 03/26/2020 12:04 AM [facility] Chloride 97(L) 98 - 107 mmol/L 03/26/2020 12:04 AM [facility] CO2 26.1 22.0 - 29.0 mmol/L 03/26/2020 12:04 AM [facility] Calcium 10.5 8.6 - 10.5 mg/dL 03/26/2020 12:04 AM [facility] eGFR Non Amer 42(L) >60 mL/min/1.7 3 03/26/2020 12:04 AM [facility] BUN/Creatinine Ratio 21.1 7.0 - 25.0 03/26/2020 12:04 AM [facility] Anion Gap 8.9 5.0 - 15.0 mmol/L 03/26/2020 12:04 AM [facility] Blood Venipuncture / Unknown 03/25/2020 11:36 AM EST 03/25/2020 11:36 AM [facility] - 03/26/2020 12:04 AM EST GFR Normal >60 Chronic Kidney Disease <60 Kidney Failure <15 Betsy Smith MD LAB BLOOD ORDERABLES Final Resul t [facility]
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
--- OUTSIDE RECORDS SUMMARY | 2024-03-25 02:50 | XMS_ITS | Encounter Summary ---
Author Organization [facility] ystem Address [address] [place] [address] Care Team Providers Care Art Objects Repairer Name Role Phone Betsy Smith MD Primary Care Provider [phone] Reason for Visit * Reason Comments Hypertension Encounter Details Date Type Department Care Team ([facility] st Contact Info) Description 06/01/2020 1:45 PM EST Office Visit [facility] [address] [place] [phone] Betsy Smith MD [address] [place] [address] Hypertension (Primary Dx); Constipation; Type 2 diabetes mellitus with stage 3a chronic kidney disease, without long-term current use [...] 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 Hypertension History of Present Illness 85 y.o. woman presents for BP f/u as well as f/u on constipation. Home BP readings have been 140s/70s but feels better on the losartan. Notes ankle swelling is minimal. Reports much relief in constipation with addition of MiraLAX. Reports that she has updated her tetanus as well as mammogram since last visit. Has dental appointment tomorrow. Review of Systems ROS (+) for borderline blood pressures in the 140s systolic; denies chest pain, palpitations, visual changes, headaches, significant leg swelling, only a little bit of ankle swelling bilaterally. Allother ROS reviewed and negative. Current Outpatient Medications: ??? alendronate (FOSAMAX) 70 MG weekly ??? calcium carbonate (OS-ANUEL) 600 MG BID ??? cholecalciferol (VITAMIN D3) 1000 units QD ??? ezetimibe (Zetia) 10 MG QD ??? losartan (COZAAR) 100 MG QD ??? metFORMIN ER (GLUCOPHAGE-XR) 750 MG 24 hr 2 QD ??? Smooth Move Tea QHS WF ??? Omeprazole 20 MG Tablet QD ??? pioglitazone (ACTOS) 30 MG QD ??? vitamin B-12 (CYANOCOBALAMIN) 500 MCG QD VITALS: BP 140/78 Pulse 71 Ht 166.4 cm (65.5 ) Wt 74.8 kg (165 lb) SpO2 96% BMI 27.04 kg/m?? Physical Exam Vitals signs and nursing note reviewed. Constitutional: General: She is not in acute distress. Appearance: Normal appearance. Eyes: Extraocular Movements: Extraocular movements intact. Conjunctiva/sclera: Conjunctivae normal. Cardiovascular: Rate and Rhythm: Normal rate and regular rhythm. Heart sounds: Normal heart sounds. Pulmonary: Effort: Pulmonary effort is normal. No respiratory distress. Breath sounds: Normal breath sounds. Abdominal: General: Bowel sounds are normal. Palpations: Abdomen is soft. Neurological: Mental Status: She is alert and [...] 1. Hypertension (Primary) Assessment & Plan: BP remains mildly elevated on losartan 100mg [...] way out the door for drug monitoring onARB Orders: - irbesartan (AVAPRO) 300 MG tablet; Take 1 tablet by mouth Daily. Dispense: 30 tablet; Refill: 1 - Basic Metabolic Panel; Future 2. Constipation Assessment & Plan: Improved with addition of Miralax and fiber powder; cont to encourage adequate water intake daily and reg phys activity 3. Type 2 diabetes mellitus with stage 3a chronic kidney disease, without long- term current use of insulin ([facility]) Assessment & Plan: F/u A1C in 4 mos as scheduled; cont met XR 750mg 2 QD and amita 30mg QD Other orders - Cancel: losartan (COZAAR) 100 MG tablet; Take 1 tablet by mouth Daily. Dispense: 90 tablet; Refill: 2 FOLLOW-UP 1. Health maintenance - flu vacc 03/26; rec COVID19 vacc when available, counseling given; Tdap 05/26/20; mammo stable 03/31/21; dental appt pending tomorrow 2. BMP on the way out the door 3. RTC 1 month for BP check with change of losartan to irbesartan 300mg QD Electronically signed by: Betsy Smith MD, FACP 06/01/2020 * Betsy Smith MD - 06/01/2020 6:16 AM ESTAssociated Problem(s): Type 2 diabetes mellitus with stage 3b chronic kidney disease, without long-term current use of insulin F/u A1C in 4 mos as scheduled; cont met XR 750mg 2 QD and amita 30mg QD * Betsy Smith MD - 06/01/2020 6:16 AM ESTAssociated Problem(s): Constipation Improved with addition of Miralax and fiber powder; cont to encourage adequate water intake daily and reg phys activity * Betsy Smith MD - 06/01/2020 6:15 AM ESTAssociated Problem(s): Hypertension BP remains mildly elevated on losartan 100mg [...] way out the door for drug monitoring onARB documented in this encounter Plan of Treatment Upcoming Encounters Date Type Department Care Team (Late st Contact Info) Description 06/09/2024 3:00 PM EST Office Visit [facility] [address] [place] [phone] Betsy Smith MD [address] [place] [address] documented as of this encounter Results * (ABNORMAL) Basic Metabolic Panel (06/01/2020 2:45 PM EST) [facility] Glucose 84 65 - 99 mg/dL 06/02/2020 12:21 AM EST [facility] BUN 23 8 - 23 mg/dL 06/02/2020 12:21 AM EST [facility] Creatinine 1.07(H) 0.57 - 1.00 mg/dL 06/02/2020 12:21 AM EST [facility] Sodium 140 136 - 145 mmol/L 06/02/2020 12:21 AM EST [facility] Potassium 5.1 3.5 - 5.2 mmol/L 06/02/2020 12:21 AM EST [facility] Chloride 103 98 - 107 mmol/L 06/02/2020 12:21 AM EST [facility] CO2 27.1 22.0 - 29.0 mmol/L 06/02/2020 12:21 AM EST [facility] Calcium 9.7 8.6 - 10.5 mg/dL 06/02/2020 12:21 AM EST [facility] eGFR Non Amer 49(L) >60 mL/min/1.7 3 06/02/2020 12:21 AM EST [facility] BUN/Creatinine Ratio 21.5 7.0 - 25.0 06/02/2020 12:21 AM EST [facility] Anion Gap 9.9 5.0 - 15.0 mmol/L 06/02/2020 12:21 AM EST [facility] Blood Venipuncture / Unknown 06/01/2020 2:45 PM EST 06/01/2020 2:45 PM EST Narrative [facility] - 06/02/2020 12:21 AM EST GFR Normal >60 Chronic Kidney Disease <60 Kidney Failure <15 Betsy Smith MD LAB BLOOD ORDERABLES Final Resul t [facility]
[address] [place] [address], documented in this encounter Visit Diagnoses Diagnosis Hypertension- Primary Unspecified essential hypertension Constipation Unspecified constipation Type 2 diabetes mellitus with stage 3a chronic kidney disease, without long-term current use of insulin documented in this encounter Care Teams Art Objects Repairer Relationship Specialty Start Date End Date Betsy Smith MD [address] [place] [address] PCP - General 02/08/15 documented as of this encounter
--- OUTSIDE RECORDS SUMMARY | 2024-03-25 02:50 | XMS_ITS | Encounter Summary ---
Author Organization [facility] ystem Address [address] [place] [address] Care Team Providers Care Medical Reimbursement Manager Name Role Phone Betsy Smith MD Primary Care Provider [phone] Reason for Visit * Reason Comments Hypertension Encounter Details Date Type Department Care Team (Late st Contact Info) Description 07/02/2020 1:30 PM EST Office Visit [facility] [address] [place] [phone] Betsy Smith MD [address] [place] [address] Hypertension (Primary Dx); Stage 3a chronic kidney disease; Type 2 diabetes mellitus with stage 3a [...] 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 Hypertension History of Present Illness 85 y.o. woman presents for BP amd kidney function f/u. Home BPs have been 120-130s/60s. No issues with change in medication. Having difficult time in getting Scaleform19 vacc in [employer]. Has son with lung problems, may need lung transplant. Has another son who works at [employer] who got Scaleform. Was hospitalized for 7 days and remains ill. Review of Systems Denies CP, palpitations, SOB, headaches, visual changes. All other ROS reviewed and negative. Current Outpatient Medications: ??? alendronate (FOSAMAX) 70 MG weekly ??? calcium carbonate (OS-ANUEL) 600 MG BID ??? cholecalciferol (VITAMIN D3) 1000 units QD ??? ezetimibe (Zetia) 10 MG QD ??? irbesartan (AVAPRO) 300 MG QD ??? metFORMIN ER (GLUCOPHAGE-XR) 750 MG 2 QD ??? Smooth Move Tea QHS ??? Omeprazole 20 MG 2 QD ??? pioglitazone (ACTOS) 30 MG QD ??? vitamin B-12 (CYANOCOBALAMIN) 500 MCG QD VITALS: BP 138/72 Pulse 79 Ht 166.4 cm (65.5 ) Wt 73.5 kg (162 lb) SpO2 98% BMI 26.55 kg/m?? Physical Exam Vitals signs and nursing note reviewed. Constitutional: General: She is not in acute distress. Appearance: Normal appearance. Eyes: Extraocular Movements: Extraocular movements intact. Conjunctiva/sclera: Conjunctivae normal. Cardiovascular: Rate and Rhythm: Normal rate and regular rhythm. Heart sounds: Normal heart sounds. Pulmonary: Effort: Pulmonary effort is normal. No respiratory distress. Breath sounds: Normal breath sounds. Musculoskeletal: Right lower leg: No edema. Left lower leg: No edema. Neurological: Mental Status: She is alert and oriented to person, place, and time. Mental status is at baseline. Gait: Gait normal. Psychiatric: Mood and Affect: Mood normal. Behavior: Behavior normal. LABS Results for orders placed or performed in visit on 06/01/20 Basic Metabolic Panel Specimen: Blood Result Value Ref Range Glucose 84 65 - 99 mg/dL BUN 23 8 - 23 mg/dL Creatinine 1.07 (H) 0.57 - 1.00 mg/dL Sodium 140 136 - 145 mmol/L Potassium 5.1 3.5 - 5.2 mmol/L Chloride 103 98 - 107 mmol/L CO2 27.1 22.0 - 29.0 mmol/L Calcium 9.7 8.6 - 10.5 mg/dL eGFR Non Amer 49 (L) >60 mL/min/1.73 BUN/Creatinine Ratio 21.5 7.0 - 25.0 Anion Gap 9.9 5.0 - 15.0 mmol/L 04/25 A1C 6.2 ASSESSMENT/PLAN Diagnoses and all orders for this visit: 1. Hypertension (Primary) Assessment & Plan: BP improved on irbesartan 300mg QD #90, 2RF; cont home monitoring with goal < 130/80; also sent RX for #30, 0RF to local pharmacy Orders: - Basic Metabolic Panel; Future - Discontinue: irbesartan (AVAPRO) 300 MG tablet; Take 1 tablet by mouth Daily. Dispense: 30 tablet; Refill: 0 - irbesartan (AVAPRO) 300 MG tablet; Take 1 tablet by mouth Daily. Dispense: 90 tablet; Refill: 2 2. Stage 3a chronic kidney disease (CMS/HCC) Assessment & Plan: Update BMP; on ARB for nephroprotective effects; maintain good BPs and avoid NSAIDs 3. Type 2 diabetes mellitus with stage 3a chronic kidney disease, without long- term current use of insulin (CMS/HCC) Assessment & Plan: Update A1C in 3 mos; remains on met XR 1500mg QD FOLLOW-UP 1. Health maintenance - rec COVID19 vacc, counseling given 2. RTC 09/09/20 as scheduled with A1C Electronically signed by: Betsy Smith MD, FACP 07/02/2020 * Betsy Smith MD - 07/02/2020 6:25 AM ESTAssociated Problem(s): CKD (chronic kidney disease), stage III Update BMP; on ARB for nephroprotective effects; maintain good BPs and avoid NSAIDs * Betsy Smith MD - 07/02/2020 6:25 AM ESTAssociated Problem(s): Hypertension BP improved on irbesartan 300mg QD #90, 2RF; cont home monitoring with goal < 130/80; also sent RX for #30, 0RF to local pharmacy * Betsy Smith MD - 07/02/2020 6:24 AM ESTAssociated Problem(s): Type 2 diabetes mellitus with stage 3b chronic kidney disease, without long-term current use of insulin Update A1C in 3 mos; remains on met XR 1500mg QD documented in this encounter Plan of Treatment Upcoming Encounters Date Type Department Care Team (Late st Contact Info) Description 06/09/2024 3:00 PM EST Office Visit [facility] [address] [place] [phone] [place] [address] [place] [address] documented as of this encounter Results * (ABNORMAL) Basic Metabolic Panel (07/02/2020 2:06 PM EST) Glucose 119(H) 65 - 99 mg/dL 07/02/2020 11:19 PM EST [facility] BUN 31(H) 8 - 23 mg/dL 07/02/2020 11:19 PM [facility] Creatinine 1.19(H) 0.57 - 1.00 mg/dL 07/02/2020 11:19 PM [facility] Sodium 138 136 - 145 mmol/L 07/02/2020 11:19 PM [facility] Potassium 5.2 3.5 - 5.2 mmol/L 07/02/2020 11:19 PM [facility] Chloride 103 98 - 107 mmol/L 07/02/2020 11:19 PM [facility] CO2 26.3 22.0 - 29.0 mmol/L 07/02/2020 11:19 PM [facility] Calcium 10.6(H) 8.6 - 10.5 mg/dL 07/02/2020 11:19 PM [facility] eGFR Non Amer 43(L) >60 mL/min/1.7 3 07/02/2020 11:19 PM [facility] BUN/Creatinine Ratio 26.1(H) 7.0 - 25.0 07/02/2020 11:19 PM [facility] Anion Gap 8.7 5.0 - 15.0 mmol/L 07/02/2020 11:19 PM [facility] Blood Venipuncture / Unknown 07/02/2020 2:06 PM EST 07/02/2020 2:06 PM EST [facility] - 07/02/2020 11:19 PM EST GFR Normal >60 Chronic Kidney Disease <60 Kidney Failure <15 us Betsy Smith MD LAB BLOOD ORDERABLES Final Resul t [facility]
[address] [place] [address], documented in this encounter Visit Diagnoses Diagnosis Hypertension- Primary Unspecified essential hypertension Stage 3a chronic kidney disease Type 2 diabetes mellitus with stage 3a chronic kidney disease, without long-term current use of insulin documented in this encounter Care Teams Medical Reimbursement Manager Relationship Specialty Start Date End Date Betsy Smith MD [address] [place] [address] PCP - General 02/08/15 documented as of this encounter
--- OUTSIDE RECORDS SUMMARY | 2024-03-25 02:50 | XMS_ITS | Encounter Summary ---
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 * Telephone Encounter - Belle Bishop MA - 04/16/2020 1:09 PM EST ----- Message from Betsy Smith MD sent at 04/15/2020 10:58 PM EST ----- Kidney function back to baseline ( stable [...] Visit [facility] [address] [place] [phone] Betsy Smith MD [address] [place] [phone] documented as of this encounter Visit Diagnoses Not on filedocumented in this encounter Care Teams Zigzag Tunnel Elastic Operator Relationship Specialty Start Date End Date Betsy Smith MD [address] [place] [address] PCP - General 02/08/15 documented as of this encounter
--- OUTSIDE RECORDS SUMMARY | 2024-03-25 02:50 | XMS_ITS | Encounter Summary ---
Author Organization [facility] ystem Address [address] [place] [address] Care Team Providers Care Food Beverage Manager Name Role Phone Betsy Smith MD Primary Care Provider [phone] Reason for Visit * Reason Comments Diabetes Hypertension Encounter Details Date Type Department Care Team (Late st Contact Info) Description 04/27/2020 9:15 AM EST Office Visit [facility] [address] [place] [phone] Betsy Smith MD [address] [place] [address] Hypertension (Primary Dx); Hyponatremia; Stage 3a chronic kidney disease; Type 2 diabetes mellitus with stage 3a chronic kidney disease, without long-term current use of insulin; Type 2 diabetes mellitus with stage 3b chronic kidney disease, without long-term current use of insulin; Sensorineural hearing loss (SNHL) of both ears; Constipation Social History Tobacco Use Types Packs/Day [...] 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 Not on file Not on fi le documented as of this encounter Last Filed Vital Signs Vital Sign Reading Time Taken Comments Blood Pressure 130/74 04/27/2020 9:02 AM EST Pulse 75 04/27/2020 9:02 AM EST Temperature - - Respiratory Rate - - Oxygen Saturation 98% 04/27/2020 9:02 AM EST Inhaled Oxygen Concentration - - Weight 73 kg (161 lb) 04/27/2020 9:02 AM EST Height 166.4 cm (5' 5.5 ) 04/27/2020 9:02 AM EST Body Mass Index 26.38 04/27/2020 9:02 AM EST documented in this encounter Progress Notes * Betsy Smith MD - 04/27/2020 10:20 AM ESTAssociated Problem(s): Constipation Cont fiber supplement capsules (she is taking 2 BID, bottle says up to 8/day); drink more water (note s/e reflux) and also rec adding colace 100mg QD-BID for stool softener effect * Betsy Smith MD - 04/27/2020 10:20 AM ESTAssociated Problem(s): Sensorineural hearing loss (SNHL) of both ears She is working in getting hearing aids that fir her ears * Betsy Smith MD - 04/27/2020 9:15 AM EST Chief Complaint Patient presents with ??? Diabetes ??? Hypertension History of Present Illness 85 y.o. woman presents for blood pressure follow-up. Has been taking amlodipine 10 mg andnotes some ankle swelling, worsened by the end of the day. Has purchased a wrist cuff but notes home BP readings are in the 140 systolic. Reports constipation is better with addition of fiber supplement but still has hard stools. Once joleen while uses Colace suppository. Probably does not drink enough water. States that water causes reflux symptoms, especially if it is ice cold water. Is still getting fitted for hearing aids but notes that there is some difficulty getting it behind her ear. Having trouble with getting pioglitazone. Notes that her mail order [facility] prescription came from [facility] in the mail and does not have refills. Review of Systems ROS (+) for reflux with drinking water but not with other liquids. Blood pressures are borderline but denies any chest pain, palpitations, shortness of breath, headaches, visual changes. Has had no fevers. ROS (+) for constipation with hard stools. All other ROS reviewed and negative. PMSFH The following portions of the patient's history were reviewed and updated as appropriate: allergies, current medications, past family history, past medical history, past social history, past surgicalhistory and problem list. Current Outpatient Medications: ??? alendronate (FOSAMAX) 70 MG weekly ??? amLODIPine (NORVASC) 10 MG QD ??? calcium carbonate (OS-ANUEL) 600 MG BID ??? cholecalciferol (VITAMIN D3) 1000 units QD ??? ezetimibe (Zetia) 10 MG QD ??? metFORMIN ER (GLUCOPHAGE-XR) 750 MG 2 QD ??? NON FORMULARY, Smooth Move Tea QHS, QD ??? Omeprazole 20 MG QD ??? pioglitazone (ACTOS) 30 MG QD ??? vitamin B-12 (CYANOCOBALAMIN) 500 MCG QD VITALS: BP 130/74 Pulse 75 Ht 166.4 cm (65.5 ) Wt 73 kg (161 lb) SpO2 98% BMI 26.38 kg/m?? Repeat BP left arm 132/60 Physical Exam Vitals signs and nursing note [...] rales. Abdominal: General: Bowel sounds are normal. Palpations: Abdomen is soft. Musculoskeletal: Right lower leg: Edema (tr ankle edema) present. Left lower leg: Edema (tr ankle edema) present. Neurological: Mental Status: She is alert [...] 1. Hypertension (Primary) Assessment & Plan: BP bord/stable on amlo 10mg QD but having ankle swelling; decrease amlodipine to 5mg QD #90, 3RF; Concern for resuming benazepril due to worsened renal function and hyperkalemia, both now resolved off of benazepril; concern for poss recurrnet hyponatremia if we try a thiazide; concern for fatigue with beta- kelli; unsure exact etiology of recent hyponatremia; will try losartan 50mg QD #30, 0RF noting that it could also exacerbate renal function and cause hyperkalemia like benazepril; alternatively, if has nephroprotective effect; discussed how to use wrist monitor correctly and advised her to bring to her next appt; f/u in 3-4 wks BP check and BMP Orders: - amLODIPine (NORVASC) 5 MG tablet; Take 1 tablet by mouth Daily. Dispense: 90 tablet; Refill: 3 - losartan (COZAAR) 50 MG tablet; Take 1 tablet by mouth Daily. Dispense: 30 tablet; Refill: 0 - Basic Metabolic Panel; Future 2. Hyponatremia Assessment & Plan: Resolved with fluid restriction Na 140 Orders: - Basic Metabolic Panel; Future 3. Stage 3a chronic kidney disease Assessment & Plan: Stable renal function Cr 1.12, GFR 46; discussed drinking more water on a daily basis; note that she feels water causes reflux - rec room temp water and maybe trying flavored water Orders: - Basic Metabolic Panel; Future 4. Type 2 diabetes mellitus with stage 3a chronic kidney disease, without long- term current use of insulin ([facility]) Assessment & Plan: Stable BG control with A1C 6.2; on met ER 750mg 2 QD and amita 30mg QD; discussed if kidney functionsworsens further, will not be able to cont metformin; encouraged reg phys activity to decr insulin resistance, moderation in unhealthy starches/sweets; f/u A1C in 6 mos Orders: - pioglitazone (ACTOS) 30 MG tablet; Take 1 tablet by mouth Daily. Dispense: 90 tablet; Refill: 3 5. Type 2 diabetes mellitus with stage 3b chronic kidney disease, without long- term current use of insulin ([facility]) Assessment & Plan: Stable BG control with A1C 6.2; on met ER 750mg 2 QD and amita 30mg QD; discussed if kidney functionsworsens further, will not be able to cont metformin; encouraged reg phys activity to decr insulin resistance, moderation in unhealthy starches/sweets; f/u A1C in 6 mos 6. Sensorineural hearing loss (SNHL) of both ears Assessment & Plan: She is working in getting hearing aids that fir her ears 7. Constipation Assessment & Plan: Cont fiber supplement capsules (she is taking 2 BID, bottle says up to 8/day); drink more water (note s/e reflux) and also rec adding colace 100mg QD-BID for stool softener effect Time Documentation Counseled patient I spent 40 minutes face to face with the patient and > 50 % of the time was spent counseling, coordinating care, answering questions, and discussing evaluation and treatment plans. Counseling topics: diagnosis, lab results, treatment options, follow up plan and return instructions FOLLOW-UP RTC 3-4 wks for BP check and BMP Electronically signed by: Betsy Smith MD, FACP 04/27/2020 * Betsy Smith MD - 04/26/2020 12:50 AM ESTAssociated Problem(s): Hypertension BP bord/stable on amlo 10mg QD but having ankle swelling; decrease amlodipine to 5mg QD #90, 3RF; Concern for resuming benazepril due to worsened renal function and hyperkalemia, both now resolved off of benazepril; concern for poss recurrnet hyponatremia if we try a thiazide; concern for fatigue with beta- kelli; unsure exact etiology of recent hyponatremia; will try losartan 50mg QD #30, 0RF noting that it could also exacerbate renal function and cause hyperkalemia like benazepril; alternatively, if has nephroprotective effect; discussed how to use wrist monitor correctly and advised her to bring to her next appt; f/u in 3-4 wks BP check and BMP * Betsy Smith MD - 04/26/2020 12:49 AM ESTAssociated Problem(s): Type 2 diabetes mellitus with stage 3b chronic kidney disease, without long-term current use of insulin Stable BG control with A1C 6.2; on met ER 750mg 2 QD and amita 30mg QD; discussed if kidney functionsworsens further, will not be able to cont metformin; encouraged reg phys activity to decr insulin resistance, moderation in unhealthy starches/sweets; f/u A1C in 6 mos * Betsy Smith MD - 04/26/2020 12:49 AM ESTAssociated Problem(s): CKD (chronic kidney disease), stage III Stable renal function Cr 1.12, GFR 46; discussed drinking more water on a daily basis; note that she feels water causes reflux - rec room temp water and maybe trying flavored water * Betsy Smith MD - 04/26/2020 12:48 AM ESTAssociated Problem(s): Hyponatremia Resolved with fluid restriction Na 140 documented in this encounter Plan of Treatment Upcoming Encounters Date Type Department Care Team (Late st Contact Info) Description 06/09/2024 3:00 PM EST Office Visit [facility] [address] [place] [phone] Betsy Smith MD [address] [place] [phone] documented as of this encounter Visit Diagnoses Diagnosis Hypertension- Primary Unspecified essential hypertension Hyponatremia Hyposmolality and/or hyponatremia Stage 3a chronic kidney disease Type 2 diabetes mellitus with stage 3a chronic kidney disease, without long-term current use of insulin Type 2 diabetes mellitus with stage 3b chronic kidney disease, without long-term current use of insulin Sensorineural hearing loss (SNHL) of both ears Constipation Unspecified constipation documented in this encounter Care Teams Food Beverage Manager Relationship Specialty Start Date End Date Betsy Smith MD [address] [place] [phone] PCP - General 02/08/15 documented as of this encounter
--- OUTSIDE RECORDS SUMMARY | 2024-03-25 02:50 | XMS_ITS | Encounter Summary ---
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 Please repeat BMP with ionized Ca and PTH in 1-2 weeks - should be nonfasting and well-hydrated documented in this encounter Plan of Treatment Upcoming Encounters Date Type Department Care Team (Late st Contact Info) Description 06/09/2024 3:00 PM EST Office Visit [facility] [address] [place] [phone] Betsy Smith MD [address] [place] [address] documented as of this encounter Procedures Procedure Name Priority Date/Time Associated Diagnosis Comments BASIC METABOLIC PANEL Routine 07/02/2020 2:06 PM EST Hypertension documented in this encounter Results * (ABNORMAL) Basic Metabolic Panel (07/02/2020 2:06 PM EST) Glucose 119(H) 65 - 99 mg/dL 07/02/2020 11:19 PM EST [facility] BUN 31(H) 8 - 23 mg/dL 07/02/2020 11:19 PM EST [facility] Creatinine 1.19(H) 0.57 - 1.00 mg/dL 07/02/2020 11:19 PM EST [facility] Sodium 138 136 - 145 mmol/L 07/02/2020 11:19 PM EST [facility] Potassium 5.2 3.5 - 5.2 mmol/L 07/02/2020 11:19 PM EST [facility] Chloride 103 98 - 107 mmol/L 07/02/2020 11:19 PM EST [facility] CO2 26.3 22.0 - 29.0 mmol/L 07/02/2020 11:19 PM EST [facility] Calcium 10.6(H) 8.6 - 10.5 mg/dL 07/02/2020 11:19 PM EST [facility] eGFR Non Amer 43(L) >60 mL/min/1.7 3 07/02/2020 11:19 PM EST [facility] BUN/Creatinine Ratio 26.1(H) 7.0 - 25.0 07/02/2020 11:19 PM EST [facility] Anion Gap 8.7 5.0 - 15.0 mmol/L 07/02/2020 11:19 PM EST [facility] Blood Venipuncture / Unknown 07/02/2020 2:06 PM EST 07/02/2020 2:06 PM EST Narrative [facility] - 07/02/2020 11:19 PM EST GFR Normal >60 Chronic Kidney Disease <60 Kidney Failure <15 us Betsy Smith MD LAB BLOOD ORDERABLES Final Resul t [facility]
[address] [place] [address], documented in this encounter Visit Diagnoses Diagnosis Hypertension Unspecified essential hypertension documented in this encounter Care Teams Hired Hand Relationship Specialty Start Date End Date Betsy Smith MD [address] [place] [address] PCP - General 02/08/15 documented as of this encounter
--- OUTSIDE RECORDS SUMMARY | 2024-03-25 02:50 | XMS_ITS | Encounter Summary ---
Author Organization [facility] ystem Address [address] [place] [address] Care Team Providers Care Police Matron Name Role Phone Betsy Smith MD Primary Care Provider [phone] Reason for Visit * Reason Comments Med Refill Encounter Details Date Type Department Care Team ([facility] Contact Info) Description 07/29/2020 Refill [facility] [address] [place] [phone] [place] [address] [place] [phone] Hypertension Social History Tobacco Use Types Packs/Day [...] 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 Not on le documented as of this encounter Plan of Treatment Upcoming Encounters Date Type Department Care Team ([facility] Contact Info) Description 06/09/2024 3:00 PM EST Office Visit [facility] [address] [place] [phone] Betsy Smith MD [address] [place], [place] [phone] documented as of this encounter Visit Diagnoses Diagnosis Hypertension Unspecified essential hypertension documented in this encounter Care Teams Police Matron Relationship Specialty [place] [address] [place] [address] PCP - General 02/08/15 documented as of this encounter
--- OUTSIDE RECORDS SUMMARY | 2024-03-25 02:50 | XMS_ITS | Encounter Summary ---
Author Organization [facility] ystem Address [address] [place] [address] Care Team Providers Care Assembler Billiard Table Name Role Phone Betsy Smith MD Primary Care Provider [phone] Encounter Details Date Type Department Care Team (Late st Contact Info) Description 2020 10:55 AM EDT Lab [facility] [address] [place] [phone] Hyperlipidemia (Primary Dx); Hypertension; Vitamin D deficiency; B12 deficiency; Type 2 diabetes mellitus with stage 3 chronic kidney disease, without long-term current use of insulin, unspecified whether stage 3a or 3b CKD; Medicare annual wellness visit, subsequent Social History Tobacco Use Types Packs/Day Years Used Date Smoking Tobacco: Never Alcohol Use Standard Drinks/Week Comments Yes 0 (1 standard drink = 0.6 oz pur e alcohol) Social PHQ-2 Answer Date Recorded PHQ-2 Score 0 03/10/2019 Comments No Sex and Gender Information Value Date Recorded Sex Assigned at Not on file Legal Sex Female 12:10 PM EDT Gender Identity Not on file Sexual Orientation Not on file 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 Kidney function was worsened. Please come to the appointment well-hydrated (lots of water) and nonfasting so we can repeat that blood test when she comes documented in this encounter Plan of Treatment Upcoming Encounters Date Type Department Care Team (Late st Contact Info) Description 06/09/2024 3:00 PM EST Office Visit [facility] MEDICINE [address] [place] [phone] Betsy Smith MD [address] [place] [address] documented as of this encounter Procedures Procedure Name Priority Date/Time Associated Diagnosis Comments URINALYSIS, MICROSCOPIC ONLY Routine 2020 10:57 AM EDT Hyperlipidemia Hypertension Vitamin D deficiency B12 deficiency Type 2 diabetes mellitus with stage 3 chronic kidney disease, without long-term current use of insulin, unspecified whether stage 3a or 3b CKD Medicare annual wellness visit, subsequent CBC WITH AUTO DIFFERENTIAL Routine 2020 10:57 AM EDT Hyperlipidemia Hypertension Vitamin D deficiency B12 deficiency Type 2 diabetes mellitus with stage 3 chronic kidney disease, without long-term current use of insulin, unspecified whether stage 3a or 3b CKD Medicare annual wellness visit, subsequent MICROALBUMIN / CREATININE URINE RATIO Routine 2020 10:57 AM EDT Hyperlipidemia Hypertension Vitamin D deficiency B12 deficiency Type 2 diabetes mellitus with stage 3 chronic kidney disease, without long-term current use of insulin, unspecified whether stage 3a or 3b CKD Medicare annual wellness visit, subsequent VITAMIN D,25-HYDROXY Routine 2020 10:57 AM EDT Hyperlipidemia Hypertension Vitamin D deficiency B12 deficiency Type 2 diabetes mellitus with stage 3 chronic kidney disease, without long-term current use of insulin, unspecified whether stage 3a or 3b CKD Medicare annual wellness visit, subsequent URINALYSIS AND MICROSCOPIC Routine 2020 10:57 AM EDT Hyperlipidemia Hypertension Vitamin D deficiency B12 deficiency Type 2 diabetes mellitus with stage 3 chronic kidney disease, without long-term current use of insulin, unspecified whether stage 3a or 3b CKD Medicare annual wellness visit, subsequent URINALYSIS WITHOUT MICROSCOPIC (NO CULTURE) Routine 2020 10:57 AM EDT Hyperlipidemia Hypertension Vitamin D deficiency B12 deficiency Type 2 diabetes mellitus with stage 3 chronic kidney disease, without long-term current use of insulin, unspecified whether stage 3a or 3b CKD Medicare annual wellness visit, subsequent CBC AND DIFFERENTIAL Routine 2020 10:57 AM EDT Hyperlipidemia Hypertension Vitamin D deficiency B12 deficiency Type 2 diabetes mellitus with stage 3 chronic kidney disease, without long-term current use of insulin, unspecified whether stage 3a or 3b CKD Medicare annual wellness visit, subsequent TSH Routine 2020 10:57 AM EDT Hyperlipidemia Hypertension Vitamin D deficiency B12 deficiency Type 2 diabetes mellitus with stage 3 chronic kidney disease, without long-term current use of insulin, unspecified whether stage 3a or 3b CKD Medicare annual wellness visit, subsequent T4, FREE Routine 2020 10:57 AM EDT Hyperlipidemia Hypertension Vitamin D deficiency B12 deficiency Type 2 diabetes mellitus with stage 3 chronic kidney disease, without long-term current use of insulin, unspecified whether stage 3a or 3b CKD Medicare annual wellness visit, subsequent HEMOGLOBIN A1C Routine 2020 10:57 AM EDT Hyperlipidemia Hypertension Vitamin D deficiency B12 deficiency Type 2 diabetes mellitus with stage 3 chronic kidney disease, without long-term current use of insulin, unspecified whether stage 3a or 3b CKD Medicare annual wellness visit, subsequent VITAMIN B12 Routine 2020 10:57 AM EDT Hyperlipidemia Hypertension Vitamin D deficiency B12 deficiency Type 2 diabetes mellitus with stage 3 chronic kidney disease, without long-term current use of insulin, unspecified whether stage 3a or 3b CKD Medicare annual wellness visit, subsequent LIPID PANEL Routine 2020 10:57 AM EDT Hyperlipidemia Hypertension Vitamin D deficiency B12 deficiency Type 2 diabetes mellitus with stage 3 chronic kidney disease, without long-term current use of insulin, unspecified whether stage 3a or 3b CKD Medicare annual wellness visit, subsequent COMPREHENSIVE METABOLIC PANEL Routine 2020 10:57 AM EDT Hyperlipidemia Hypertension Vitamin D deficiency B12 deficiency Type 2 diabetes mellitus with stage 3 chronic kidney disease, without long-term current use of insulin, unspecified whether stage 3a or 3b CKD Medicare annual wellness visit, subsequent documented in this encounter Results * Urinalysis, Microscopic Only - Urine, Clean Catch (2020 10:57 AM EDT) RBC, UA 0-2 None Seen, 0-2 /HPF 2020 11:57 PM EDT [facility] WBC, UA 0-2 None Seen, 0-2 /HPF 2020 11:57 PM EDT [facility] Bacteria, UA None Seen None Seen /HPF 2020 11:57 PM EDT [facility] Squamous Epithelial Cells, UA 0-2 None Seen, 0-2 /HPF 2020 11:57 PM EDT [facility] Hyaline Casts, UA 0-2 None Seen /LPF 2020 11:57 PM EDT [facility] Methodology Automated Microscopy 2020 11:57 PM EDT [facility] Urine Urine specimen collection, clean catch / Unknown Collection / Unknown 2020 10:57 AM EDT 2020 10:57 AM EDT Betsy Smith MD URINE ORDERABLES Final Result [facility]
[address] [place] [address], * Urinalysis without microscopic (no culture) - Urine, Clean Catch (2020 10:57 AM EDT) Color, UA Yellow Yellow, Straw 2020 11:47 PM EDT [facility] Appearance, UA Clear Clear 2020 11:47 PM EDT [facility] pH, UA 7.5 5.0 - 8.0 2020 11:47 PM EDT [facility] Specific [place], UA 1.013 1.005 - 1.030 2020 11:47 PM EDT [facility] Glucose, UA Negative Negative 2020 11:47 PM EDT [facility] Ketones, UA Negative Negative 2020 11:47 PM EDT [facility] Bilirubin, UA Negative Negative 2020 11:47 PM EDT [facility] Blood, UA Negative Negative 2020 11:47 PM EDT [facility] Protein, UA Negative Negative 2020 11:47 PM EDT [facility] Leuk Esterase, UA Negative Negative 2020 11:47 PM EDT [facility] Nitrite, UA Negative Negative 2020 11:47 PM EDT [facility] Urobilinogen, UA 0.2 E.U./dL 0.2 - 1.0 E.U./dL 2020 11:47 PM EDT [facility] Urine Urine specimen collection, clean catch / Unknown Collection / Unknown 2020 10:57 AM EDT 2020 10:57 AM EDT Betsy Smith MD URINE ORDERABLES Final Result [facility]
[address] [place] [address], * (ABNORMAL) CBC Auto Differential (2020 10:57 AM EDT) WBC 6.20 3.40 - 10.80 10*3/mm3 2020 6:43 PM EDT [facility] RBC 4.18 3.77 - 5.28 10*6/mm3 2020 6:43 PM EDT [facility] Hemoglobin 11.8(L) 12.0 - 15.9 g/dL 2020 6:43 PM EDT [facility] Hematocrit 36.4 34.0 - 46.6 % 2020 [facility] MCV 87.1 79.0 - 97.0 fL 2020 6[facility] MCH 28.2 26.6 - 33.0 pg 2020 6:43 [facility] MCHC 32.4 31.5 - 35.7 g/dL 2020 6:43 PM [facility] RDW 14.3 12.3 - 15.4 % 2020 6:43 PM [facility] RDW-SD 45.8 37.0 - 54.0 fl 2020 6:43 PM [facility] MPV 10.7 6.0 - 12.0 fL 2020 6:43 PM [facility] Platelets 276 140 - 450 10*3/mm3 2020 6:43 [facility] Neutrophil % 61.5 42.7 - 76.0 % 2020 6:43 PM [facility] Lymphocyte % 25.2 19.6 - 45.3 % 2020 6:43 PM [facility] Monocyte % 10.2 5.0 - 12.0 % 2020 6[facility] Eosinophil % 1.8 0.3 - 6.2 % 2020 6:43 PM EDT [facility] Basophil % 1.0 0.0 - 1.5 % 2020 6:43 PM EDT [facility] Immature Grans % 0.3 0.0 - 0.5 % 2020 6:43 PM EDT [facility] Neutrophils, Absolute 3.82 1.70 - 7.00 10*3/mm3 2020 6:43 PM EDT [facility] Lymphocytes, Absolute 1.56 0.70 - 3.10 10*3/mm3 2020 6:43 PM EDT [facility] Monocytes, Absolute 0.63 0.10 - 0.90 10*3/mm3 2020 6:43 PM EDT [facility] Eosinophils, Absolute 0.11 0.00 - 0.40 10*3/mm3 2020 6:43 PM EDT [facility] Basophils, Absolute 0.06 0.00 - 0.20 10*3/mm3 2020 6:43 PM EDT [facility] Immature Grans, Absolute 0.02 0.00 - 0.05 10*3/mm3 2020 6:43 PM EDT [facility] nRBC 0.0 0.0 - 0.2 /100 WBC 2020 6:43 PM EDT [facility] Blood Venipuncture / Unknown 2020 10:57 AM EDT 2020 10:57 AM EDT us Betsy Smith MD LAB BLOOD ORDERABLES Final Resul t [facility]
[address] [place] [address], * (ABNORMAL) Vitamin B12 (2020 10:57 AM EDT) [facility] Vitamin B-12 1,414(H) 211 - 946 pg/mL 2020 7:51 PM EDT [facility] Blood Venipuncture / Unknown 2020 10:57 AM EDT 2020 10:57 AM EDT Narrative [facility] - 2020 7:51 PM EDT Results may be falsely increased if patient taking Biotin. us Betsy Smith MD LAB BLOOD ORDERABLES Final Resul t [facility]
[address] [place] [address], * Vitamin D 25 Hydroxy (2020 10:57 AM EDT) 25 Hydroxy, Vitamin D 44.7 30.0 - 100.0 ng/ml 2020 7:51 PM EDT [facility] Blood Venipuncture / Unknown 2020 10:57 AM EDT 2020 10:57 AM EDT [facility] - 2020 7:51 PM EDT Reference Range for Total Vitamin D 25(OH) Deficiency <20.0 ng/mL Insufficiency 21-29 ng/mL Sufficiency 30-100 ng/mL Toxicity >100 ng/ml Results may be falsely increased if patient taking Biotin. us Betsy Smith MD LAB BLOOD ORDERABLES Final Resul t Performing Organization Address [facility] Co de Phone Number [facility]
[address] [place] [address], * T4, Free (2020 10:57 AM EDT) Free T4 1.51 0.93 - 1.70 ng/dL 2020 7:30 PM EDT [facility] Blood Venipuncture / Unknown 2020 10:57 AM EDT 2020 10:57 AM EDT [facility] - 2020 7:30 PM EDT Results may be falsely increased if patient taking Biotin. us Betsy Smith MD LAB BLOOD ORDERABLES Final Resul t Performing Organization Address City/[facility]/ZIP Co de Phone Number [facility]
[address] [place] [address], * (ABNORMAL) Hemoglobin A1c (2020 10:57 AM EDT) Hemoglobin A1C 6.20(H) 4.80 - 5.60 % 2020 [facility] Blood Venipuncture / Unknown 2020 10:57 AM EDT 2020 10:57 AM EDT Narrative [facility] - 2020 7:34 PM EDT Hemoglobin A1C Ranges: Increased Risk for Diabetes ??5.7% to 6.4% Diabetes ? >= 6.5% Diabetic Goal ?< 7.0% Betsy Smith MD LAB BLOOD ORDERABLES Final Resul t Performing Organization Address [facility] Co de Phone Number [facility]
[address] [place] [address], * Microalbumin / Creatinine Urine Ratio - Urine, Clean Catch (2020 10:57 AM EDT) Microalbumin/C reatinine Ratio 03/06/2020 12:21 AM EDT [facility] Comment:Unable to calculate Creatinine, Urine 69.2 mg/dL 03/06/2020 12:21 AM EDT [facility] Microalbumin, Urine <1.2 mg/dL 03/06/2020 12:21 AM T [facility] Urine Urine specimen collection, clean catch / Unknown Collection / Unknown 2020 10:57 AM EDT 2020 10:57 AM EDT Betsy Smith MD URINE ORDERABLES Final Result Performing Organization Address [facility] Co de Phone Number [facility]
[address] [place] [address], * (ABNORMAL) Lipid Panel (2020 10:57 AM EDT) Total Cholesterol 175 0 - 200 mg/dL 2020 7:28 PM EDT [facility] Triglycerides 57 0 - 150 mg/dL 2020 7:28 PM EDT [facility] HDL Cholesterol 90(H) 40 - 60 mg/dL 2020 7:28 PM EDT [facility] LDL Cholesterol 74 0 - 100 mg/dL 2020 7:28 PM EDT [facility] VLDL Cholesterol 11 5 - 40 mg/dL 2020 7:28 PM EDT [facility] LDL/HDL Ratio 0.82 2020 7:28 PM EDT [facility] Blood Venipuncture / Unknown 2020 10:57 AM EDT 2020 10:57 AM EDT Narrative [facility] - 2020 7:28 PM EDT Cholesterol Reference Ranges (U.S. Department of Health [...] MD LAB BLOOD ORDERABLES Final Resul t [facility]
[address] [place] [address], * TSH (2020 10:57 AM EDT) [facility] TSH 2.390 0.270 - 4.200 uIU/mL 2020 7:30 PM EDT [facility] Blood Venipuncture / Unknown 2020 10:57 AM EDT 2020 10:57 AM EDT Betsy Smith MD LAB BLOOD ORDERABLES Final Resul t Performing Organization Address City/[facility] Co de Phone Number [facility]
[address] [place] [address], * (ABNORMAL) Comprehensive Metabolic Panel (2020 10:57 AM EDT) [facility] Glucose 96 65 - 99 mg/dL 2020 7:28 PM EDT [facility] BUN 23 8 - 23 mg/dL 2020 7:28 PM EDT [facility] Creatinine 1.43(H) 0.57 - 1.00 mg/dL 2020 7:28 PM EDT [facility] Sodium 135(L) 136 - 145 mmol/L 2020 7:28 PM EDT [facility] Potassium 5.1 3.5 - 5.2 mmol/L 2020 7:28 PM EDT [facility] Chloride 100 98 - 107 mmol/L 2020 7:28 PM EDT [facility] CO2 27.6 22.0 - 29.0 mmol/L 2020 7:28 PM EDT [facility] Calcium 9.7 8.6 - 10.5 mg/dL 2020 7:28 PM EDT [facility] Total Protein 6.5 6.0 - 8.5 g/dL 2020 7:28 PM EDT [facility] Albumin 4.50 3.50 - 5.20 g/dL 2020 7:28 PM EDT [facility] ALT (SGPT) 9 1 - 33 U/L 2020 7:28 PM EDT [facility] AST (SGOT) 15 1 - 32 U/L 2020 7:28 PM EDT [facility] Alkaline Phosphatase 51 39 - 117 U/L 2020 7:28 PM EDT [facility] Total Bilirubin 0.4 0.0 - 1.2 mg/dL 2020 7:28 PM EDT [facility] eGFR Non Amer 35(L) >60 mL/min/1.7 3 2020 7:28 PM EDT [facility] Globulin 2.0 gm/dL 2020 7:28 PM T [facility] A/G Ratio 2.3 g/dL 2020 7:28 PM EDT [facility] BUN/Creatinine Ratio 16.1 7.0 - 25.0 2020 7:28 PM [facility] Anion Gap 7.4 5.0 - 15.0 mmol/L 2020 7:28 PM [facility] Blood Venipuncture / Unknown 2020 10:57 AM EDT 2020 10:57 AM EDT Narrative [facility] - 2020 7:28 PM EDT GFR Normal >60 Chronic Kidney Disease <60 Kidney Failure <15 Betsy Smith MD LAB BLOOD ORDERABLES Final Resul t [facility]
[address] [place] [address], documented in this encounter Visit Diagnoses Diagnosis Hyperlipidemia- Primary Pure hypercholesterolemia Hypertension Unspecified essential hypertension Vitamin D deficiency B12 deficiency Type 2 diabetes mellitus with stage 3 chronic kidney disease, without long-term current use of insulin, unspecified whether stage 3a or 3b CKD Medicare annual wellness visit, subsequent documented in this encounter Care Teams Assembler Billiard Table Relationship Specialty Start Date End Date Betsy Smith MD [address] [place] [address] PCP - General 02/08/15 documented as of this encounter
--- OUTSIDE RECORDS SUMMARY | 2024-03-25 02:50 | XMS_ITS | Encounter Summary ---
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 documented as of this encounter Miscellaneous Notes * Telephone Encounter - Betsy Smith MD - 03/22/2020 6:37 PM EST escribed met ER #[id number], 0RF and amita 30mg QD #30, 0RF to escribed met ER #[id number], 3RF and amita 30mg QD #90, 3RF to [facility] again (both were escribed 03/12/20 already) * Telephone Encounter - Lisseth He RegSched Rep - 03/22/2020 2:47 PM EST Caller: Tasneem Perales Relationship: Self Best call back number: [phone] Medication needed: ezetimibe (Zetia) 10 MG tablet metFORMIN ER (GLUCOPHAGE-XR) 750 MG 24 hr tablet pioglitazone (ACTOS) 30 MG tablet When do you need the refill by: JOSE What details did the patient provide when requesting the medication: OUT OF PIOGILATAZONE, Does the patient have less than a 3 day supply: [] Yes [x] No What is the patient's [facility] [id number] TO REGISTERED [facility] - [phone] - [phone] FX PT ALSO STATED SHE IS WAITING ON ENT REFERRAL CALLBACK: [phone] documented in this encounter Plan of Treatment Upcoming Encounters Date Type Department Care Team (Late st Contact Info) Description 06/09/2024 3:00 PM EST Office Visit [facility] [address] [place] [phone] Betsy Smith MD [address] [place] [phone] documented as of this encounter Visit Diagnoses Diagnosis Type 2 diabetes mellitus with stage 3b chronic kidney disease, without long-term current use of insulin documented in this encounter Care Teams Beef Breaker Relationship Specialty Start Date End Date Betsy Smith MD [address] [place] [id number] PCP - General 02/08/15 documented as of this encounter
--- OUTSIDE RECORDS SUMMARY | 2024-03-25 02:50 | XMS_ITS | Encounter Summary ---
[facility] Address [address] [place] [address] Care Team Providers Care Manager Customs Name Role Phone Betsy Smith MD Primary Care Provider [phone] Reason for Referral * Diagnostic Imaging (Routine) - Closed Specialty Diagnoses / Procedures Referred By Contac t Referred To Contact Radiology Diagnoses Visit for screening mammogram Procedures Mammo Screening Digital Tomosynthesis Bilateral With CAD Betsy Smith MD [address] [place] [id number] Phone: tel: fax: Referral ID Status Reason Start Date Expiration Date Visits Re quested Visits Authorized [id number] Closed 02/18/2020 02/17/2021 1 1 Reason for Visit * Diagnostic Imaging (Routine) - Closed Specialty Diagnoses / Procedures Referred By Contac t Referred To Contact Radiology Diagnoses Visit for screening mammogram Procedures Mammo Screening Digital Tomosynthesis Bilateral With CAD Betsy Smith MD [address] [place] [id number] Phone: tel: fax: Referral ID Status Reason Start Date Expiration Date Visits Re quested Visits Authorized [id number] Closed 02/18/2020 02/17/2021 1 1 Encounter Details Date Type Department Care Team (Latest Contact Info) Description 05/31/2020 10:49 AM EST - 05/31/2020 11:59 PM EST Hospital Encounter [facility] [place] [address] Betsy Smith MD [address] [place] [address] Visit for screening mammogram Discharge Disposition: Home or Self Care Social [...] 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 13 tablet 3 0 03/09/20 21 calcium carbonate (OS-ANUEL) 600 MG tablet Take 1 tablet by mouth 2 (Two) Times a Day With Meals. 11/12/19 24 ezetimibe (Zetia) 10 MG tabletIndications:Pure hypercholesterolemia Take 1 tablet by mouth Daily. 90 tablet 3 0 03/21/20 21 losartan (COZAAR) 100 MG tabletIndications:Essenti al hypertension Take 1 tablet by mouth Daily. 30 tablet 1 1 06/01/19 21 metFORMIN ER (GLUCOPHAGE-XR) 750 MG 24 hr tabletIndications:Type 2 diabetes mellitus with stage 3b chronic kidney disease, without long-term current use of insulin Take 2 tablets by mouth Daily With Breakfast. 180 tablet 3 0 03/21/20 21 NON FORMULARY Smooth Move Tea QHS 10/18/19 24 Omeprazole 20 MG Tablet Delayed Release Dispersible Take 2 tablets by mouth Daily. 10/18/19 24 pioglitazone (ACTOS) 30 MG tabletIndications:Type 2 diabetes mellitus with stage 3a chronic kidney disease, without long-term current use of insulin Take 1 tablet by mouth Daily. 90 tablet 3 0 03/21/20 21 vitamin B-12 (CYANOCOBALAMIN) 500 MCG tablet Take 500 mcg by mouth Daily. 03/21/20 documented as of this encounter Progress Notes * Betsy Smith MD - 05/31/2020 11:00 AM EST Stable mammo 06/01/20 ([facility]), repeat 1 yr documented in this encounter Plan of Treatment Upcoming Encounters Date Type Department Care Team (Late st Contact Info) Description 06/09/2024 3:00 PM EST Office Visit [facility] [address] [place] [phone] Betsy Smith MD [address] [place] [phone] documented as of this encounter Procedures Procedure Name Priority Date/Time Associated Diagnosis Comments MAMMO SCREENING DIGITAL TOMOSYNTHESIS BILATERAL W CAD Routine 05/31/2020 11:13 AM EST Visit for screening mammogram documented in this encounter Results * Mammo Screening Digital Tomosynthesis Bilateral With CAD (05/31/2020 11:13 AM EST) Anatomical Region Laterality Modality Breast N/A Mammography 06/01/2020 10:4 2 AM EST Impressions 06/01/2020 10:42 AM EST No findings suspicious for malignancy. ACR BI-RADS CATEGORY: ??1, NEGATIVE RECOMMENDATION: Yearly mammogram, yearly clinical breast exam, and encourage self breast awareness. CAD was used. The standard false negative rate of mammography is between 10% and 25%. Complex patterns or increased breast density will markedly elevate the false negative rate of mammography. A letter, in lay terminology, with the results of this exam will be mailed to the patient. At our facility, a triangular marker is positioned over a palpable area of concern indicated by the patient. A stebbins marker is placed over a visible skin lesion. A linear marker indicates a scar. ?? If there is a palpable area of concern, biopsy should be considered regardless of imaging findings. This report was finalized on 06/01/2020 10:[address] Beverly Patino MD. Narrative 06/01/2020 10:42 AM EST DIGITAL SCREENING MAMMOGRAM WITH TOMOSYNTHESIS HISTORY: Routine screening. IMAGE COMPARISON: ??03/18/2019, 02/11/2018, 08/27/2015. TECHNIQUE: ??Low dose full field digital breast tomosynthesis imaging was performed with 2D and 3D acquisitions consisting of bilateral CC and MLO views. FINDINGS: There are scattered areas of fibroglandular density. The fibroglandular pattern appears stable. ??There is no mass, worrisome microcalcifications, or architectural distortion to suggest development of malignancy. Betsy Smith MD IMG MAMMOGRAPHY ORDERABLES Final Result documented in this encounter Visit Diagnoses Diagnosis Visit for screening mammogram documented in this encounter Care Teams Manager Customs Relationship Specialty Start Date End Date Betsy Smith MD [address] [place] [address] PCP - General 02/08/15 documented as of this encounter
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
--- OUTSIDE RECORDS SUMMARY | 2024-03-25 02:50 | XMS_ITS | Encounter Summary ---
Author Organization 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 Not on file Not on fi le documented as of this encounter Plan of Treatment Upcoming Encounters Date Type Department Care Team (Late Contact Info) Description 06/09/2024 3:00 PM EST Office Visit [facility] [address] [place] [address] Betsy Smith MD [address] [place] [address] [phone] (work) documented as of this encounter Procedures Procedure Name Priority Date/Time Associated Diagnosis Comments OSMOLALITY Routine 04/05/2020 11:58 AM EST Hyponatremia CORTISOL Routine 04/05/2020 11:58 AM EST Hyponatremia BASIC METABOLIC PANEL Routine 04/05/2020 11:58 AM EST Hyponatremia OSMOLALITY, URINE Routine 04/05/2020 11: 57 AM EST Hyponatremia documented in this encounter Results * Cortisol (04/05/2020 11:58 AM EST) Cortisol 11.02 mcg/dL 04/06/2020 12:48 AM EST [facility] Blood Venipuncture / Unknown 04/05/2020 11:58 AM EST 04/05/2020 11:58 AM EST Narrative [facility] - 04/06/2020 12:48 AM EST Cortisol Reference Ranges: Cortisol 6AM - 10AM Range: 6.02-18.40 mcg/dl Cortisol 4PM - 8PM Range: 2.68-10.50 mcg/dl Results may be falsely increased if patient taking Biotin. us Betsy Smith MD LAB BLOOD ORDERABLES Final Resul t Performing Organization Address [facility] Co de Phone Number [facility]
[address] [place] [address], * Osmolality, Serum (04/05/2020 11:58 AM EST) Osmolality 289 280 - 301 mOsm/kg 04/06/2020 2:25 AM EST [facility] Blood Venipuncture / Unknown 04/05/2020 11:58 AM EST 04/05/2020 11:58 AM EST us Betsy Smith MD LAB BLOOD ORDERABLES Final Resul t Performing Organization Address [facility]/ZIP Co de Phone Number [facility]
[address] [place] [address], * (ABNORMAL) Basic Metabolic Panel (04/05/2020 11:58 AM EST) Glucose 85 65 - 99 mg/dL 04/06/2020 12:42 AM [facility] BUN 20 8 - 23 mg/dL 04/06/2020 12:42 AM [facility] Creatinine 1.35(H) 0.57 - 1.00 mg/dL 04/06/2020 12:42 AM [facility] Sodium 134(L) 136 - 145 mmol/L 04/06/2020 12:42 AM [facility] Potassium 4.9 3.5 - 5.2 mmol/L 04/06/2020 12:42 AM [facility] Chloride 99 98 - 107 mmol/L 04/06/2020 12:42 AM [facility] CO2 27.3 22.0 - 29.0 mmol/L 04/06/2020 12:42 AM [facility] Calcium 10.2 8.6 - 10.5 mg/dL 04/06/2020 12:42 AM [facility] eGFR Non Amer 37(L) >60 mL/min/1.7 3 04/06/2020 12:42 AM [facility] BUN/Creatinine Ratio 14.8 7.0 - 25.0 04/06/2020 12:42 AM [facility] Anion Gap 7.7 5.0 - 15.0 mmol/L 04/06/2020 12:42 AM [facility] Blood Venipuncture / Unknown 04/05/2020 11:58 AM EST 04/05/2020 11:58 AM EST [facility] - 04/06/2020 12:42 AM EST GFR Normal >60 Chronic Kidney Disease <60 Kidney Failure <15 Betsy Smith MD LAB BLOOD ORDERABLES Final Resul t [facility]
[address] [place] [address], * Osmolality, Urine - Urine, Clean Catch (04/05/2020 11:57 AM EST) Osmolality, Urine 447 mOsm/kg 04/06/2020 2:26 AM EST [facility] Urine Urine specimen collection, clean catch / Unknown Collection / Unknown 04/05/2020 11:57 AM EST 04/05/2020 11:58 AM EST Narrative [facility] - 04/06/2020 2:26 AM EST Osmo Normal Reference Ranges: Random: 50-1400 mOsm/kg H2O, depending on fluid intake. Random: >850 mOsm/kg H20, after 12 hour fluid restriction. 24 Hour: 300-900 mOsm/kg H2O. Betsy Smith MD URINE ORDERABLES Final Result [facility]
[address] [place] [address], documented in this encounter Visit Diagnoses Diagnosis Hyponatremia Hyposmolality and/or hyponatremia documented in this encounter Care Teams Cable Testers Helper Relationship Specialty Start Date End Date Betsy Smith MD [address] [place] [address] PCP - General 02/08/15 documented as of this encounter
--- OUTSIDE RECORDS SUMMARY | 2024-03-25 02:50 | XMS_ITS | Encounter Summary ---
Author Organization [facility] ystem Address [address] [place] [address] Care Team Providers Care Rat Exterminator Name Role Phone Betsy Smith MD Primary Care Provider [phone] Encounter Details Date Type Department Care Team (Late st Contact Info) Description 06/01/2020 2:45 PM EST Lab 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 Potassium at upper limits. Continue with plans to change losartan to irbesartan. Make sure not taking any extra potassium in any supplements. documented in this encounter Plan of Treatment Upcoming Encounters Date Type Department Care Team (Late st Contact Info) Description 06/09/2024 3:00 PM EST Office Visit [facility]IC[facility] [address] [place] [address] Betsy Smith MD [address] [place] [address] documented as of this encounter Procedures Procedure Name Priority Date/Time Associated Diagnosis Comments BASIC METABOLIC PANEL Routine 06/01/2020 2:45 PM EST Hypertension documented in this encounter Results * (ABNORMAL) Basic Metabolic Panel (06/01/2020 2:45 PM EST) Glucose 84 65 - 99 mg/dL 06/02/2020 12:21 AM EST [facility] BUN 23 8 - 23 mg/dL 06/02/2020 12:21 AM [facility] Creatinine 1.07(H) 0.57 - 1.00 mg/dL 06/02/2020 12:21 AM [facility] Sodium 140 136 - 145 mmol/L 06/02/2020 12:21 AM [facility] Potassium 5.1 3.5 - 5.2 mmol/L 06/02/2020 12:21 AM EST [facility] Chloride 103 98 - 107 mmol/L 06/02/2020 12:21 AM EST [facility] CO2 27.1 22.0 - 29.0 mmol/L 06/02/2020 12:21 AM EST [facility] Calcium 9.7 8.6 - 10.5 mg/dL 06/02/2020 12:21 AM [facility] eGFR Non Amer 49(L) >60 mL/min/1.7 3 06/02/2020 12:21 AM EST [facility] BUN/Creatinine Ratio 21.5 7.0 - 25.0 06/02/2020 12:21 AM EST [facility] Anion Gap 9.9 5.0 - 15.0 mmol/L 06/02/2020 12:21 AM EST [facility] Blood Venipuncture / Unknown 06/01/2020 2:45 PM EST 06/01/2020 2:45 PM EST Narrative [facility] - 06/02/2020 12:21 AM EST GFR Normal >60 Chronic Kidney Disease <60 Kidney Failure <15 Betsy Smith MD LAB BLOOD ORDERABLES Final Resul t [facility]
[address] [place] [address], documented in this encounter Visit Diagnoses Diagnosis Hypertension Unspecified essential hypertension documented in this encounter Care Teams Rat Exterminator Relationship Specialty Start Date End Date Betsy Smith MD [address] [place] [address] PCP - General 02/08/15 documented as of this encounter
--- OUTSIDE RECORDS SUMMARY | 2024-03-25 02:50 | XMS_ITS | Encounter Summary ---
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 Not on fi le documented as of this encounter Plan of Treatment Upcoming Encounters Date Type Department Care Team (Late Contact Info) Description 06/09/2024 3:00 PM EST Office Visit [facility] [address] [place] [address] Betsy Smith MD [address] [place], [place] [id number] documented as of this encounter Visit Diagnoses Diagnosis Type 2 diabetes mellitus with stage 3b chronic kidney disease, without long-term current use of insulin documented in this encounter Care Teams Voucher Examiner Relationship Specialty Start Date End Date Betys Smith MD [address] [place] [address] PCP - General 02/08/15 documented as of this encounter
--- OUTSIDE RECORDS SUMMARY | 2024-03-25 02:50 | XMS_ITS | Encounter Summary ---
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 Diabetes ??? Hypertension History of Present Illness 85 y.o. woman presents for DM follow-up. Has not been checking BGs b/c glucometer is broken; parts missing and dog has chewed up part of it. Cannot find its box after granddaughter moved in. [employer], provided by [facility] adilia. COVID19 vacc series done. Review of Systems Denies CP, palpitations, SOB, visual changes, falls. All other ROS reviewed and negative. Current Outpatient Medications: ??? alendronate (FOSAMAX) 70 MG weekly ??? calcium carbonate (OS-ANUEL) 600 MG BID ??? cholecalciferol (VITAMIN D3) 1000 units QD: ??? ezetimibe (Zetia) 10 MG QD ??? irbesartan (AVAPRO) 300 MG QD ??? metFORMIN ER 750mg 2 QD ??? NON FORMULARY, Smooth Move Tea QHS AD ??? Omeprazole 20 MG 2 QD ??? pioglitazone (ACTOS) 30 MG QD ??? vitamin B-12 (CYANOCOBALAMIN) 500 MCG QD VITALS: BP 124/70 Pulse 72 Ht 166.4 cm (65.5 ) Wt 75.3 kg (166 lb) SpO2 99% BMI 27.20 kg/m?? Physical Exam Vitals and nursing note [...] orders placed or performed in visit on 09/09/20 POC Glycosylated Hemoglobin (Hb A1C) Specimen: Blood Result Value Ref Range Hemoglobin A1C 6.0 % Results for orders placed or performed in visit on 07/19/20 Basic Metabolic Panel Specimen: Blood Result Value Ref Range Glucose 130 (H) 65 - 99 mg/dL BUN 24 (H) 8 - 23 mg/dL Creatinine 1.23 (H) 0.57 - 1.00 mg/dL Sodium 137 136 - 145 mmol/L Potassium 4.8 3.5 - 5.2 mmol/L Chloride 99 98 - 107 mmol/L CO2 26.7 22.0 - 29.0 mmol/L Calcium 10.0 8.6 - 10.5 mg/dL eGFR Non Amer 42 (L) >60 mL/min/1.73 BUN/Creatinine Ratio 19.5 7.0 - 25.0 Anion Gap 11.3 5.0 - 15.0 mmol/L Calcium, Ionized Specimen: Blood Result Value Ref Range Ionized Calcium 1.40 (H) 1.15 - 1.35 mmol/L Ionized Calcium 5.6 (H) 4.6 - 5.4 mg/dL PTH, Intact & Calcium Specimen: Blood Result Value Ref Range PTH, Intact 26.7 15.0 - 65.0 pg/mL Calcium 10.2 8.6 - 10.5 mg/dL ASSESSMENT/PLAN Diagnoses and all orders for this visit: 1. Type 2 diabetes mellitus with stage 3b chronic kidney disease, without long- term current use of insulin ([facility]) (Primary) Assessment & Plan: BG control stable with A1C 6.0; cont met ER 750mg 2 QD and amita 30mg QD; encouraged reg phys activity to decr insulin resistance, moderation in unhealthy starches/sweets; f/u A1C in 6 mos Orders: - POC Glycosylated Hemoglobin (Hb A1C) 2. Hypertension Assessment & Plan: BP 124/70 on irbesartan 300mg QD; goal < 130/80 FOLLOW-UP 1. Health maintenance - COVID19 vacc done; reminder needs annual DM eye exam w/ Dr. Duque 2. RTC for next wellness 03/21/21; fasting labs prior to appt (CBC, CMP, TSH, lipids, UA/micro, microalb, A1C, vit D, B12) Electronically signed by: Betsy Smith MD, FACP 09/09/2020 * Betsy Smith MD - 09/08/2020 1:55 AM EDTAssociated Problem(s): Type 2 diabetes mellitus with stage 3b chronic kidney disease, without long-term current use of insulin BG control stable with A1C 6.0; cont met ER 750mg 2 QD and amita 30mg QD; encouraged reg phys activity to decr insulin resistance, moderation in unhealthy starches/sweets; f/u A1C in 6 mos * Betsy Smith MD - 09/08/2020 1:54 AM EDTAssociated Problem(s): Hypertension BP 124/70 on irbesartan 300mg QD; goal < 130/80 documented in this encounter Plan of Treatment Upcoming Encounters Date Type Department Care Team (Late st Contact Info) Description 06/09/2024 3:00 PM EST Office Visit [facility] MEDICINE [address] [place] [phone] [place] [address] [place] [phone] documented as of this encounter Procedures Procedure Name Priority Date/Time Associated Diagnosis Comments POCT GLYCOSYLATED HEMOGLOBIN (HGB A1C) Routine 09/09/2020 11:05 AM EDT Type 2 diabetes mellitus with stage 3b chronic kidney disease, without long-term current use of insulin documented in this encounter Results * POC Glycosylated Hemoglobin (Hb A1C) (09/09/2020 11:05 AM EDT) Hemoglobin A1C 6.0 % [facility] Blood 09/09/2020 11:0 5 AM EDT us Betsy Smith MD POINT OF CARE TEST ORDERABLES Fi nal Result [facility]
[address] [place] [address], documented in this encounter Visit Diagnoses Diagnosis Type 2 diabetes mellitus with stage 3b chronic kidney disease, without long-term current use of insulin- Primary Hypertension Unspecified essential hypertension documented in this encounter Care Teams Alteration Worker Relationship Specialty Start Date End Date Betsy Smith MD [address] [place] [address] PCP - General 02/08/15 documented as of this encounter
--- OUTSIDE RECORDS SUMMARY | 2024-03-25 02:50 | XMS_ITS | Encounter Summary ---
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 Not on fi le documented as of this encounter Plan of Treatment Upcoming Encounters Date Type Department Care Team (Late Contact Info) Description 06/09/2024 3:00 PM EST Office Visit [facility] INTER[facility] MEDICINE [address] [place] [address] Betsy Smith MD [address] [place] [address] documented as of this encounter Procedures Procedure Name Priority Date/Time Associated Diagnosis Comments PTH, INTACT AND CALCIUM Routine 07/19/2020 11:28 AM EDT Serum calcium elevated CALCIUM, IONIZED Routine 07/19/2020 11:2 8 AM EDT Serum calcium elevated BASIC METABOLIC PANEL Routine 07/19/2020 11:28 AM EDT Stage 3a chronic kidney disease documented in this encounter Results * PTH, Intact & Calcium (07/19/2020 11:28 AM EDT) PTH, Intact 26.7 15.0 - 65.0 pg/mL 07/20/2020 12:07 AM EDT [facility] Calcium 10.2 8.6 - 10.5 mg/dL 07/20/2020 12:07 AM EDT [facility] Blood Venipuncture / Unknown 07/19/2020 11:28 AM EDT 07/19/2020 11:28 AM EDT Narrative [facility] - 07/20/2020 12:07 AM EDT PTH results may be falsely decreased if patient taking Biotin. us Betsy Smith MD LAB BLOOD ORDERABLES Final Resul t [facility]
[address] [place] [address], * (ABNORMAL) Calcium, Ionized (07/19/2020 11:28 AM EDT) Ionized Calcium 1.40(H) 1.15 - 1.35 mmol/L 07/20/2020 12:03 AM EDT [facility] Ionized Calcium 5.6(H) 4.6 - 5.4 mg/dL 07/20/2020 12:03 AM EDT [facility] Blood Venipuncture / Unknown 07/19/2020 11:28 AM EDT 07/19/2020 11:28 AM EDT Betsy Smith MD LAB BLOOD ORDERABLES Final Resul t [facility]
[address] [place] [address], * (ABNORMAL) Basic Metabolic Panel (07/19/2020 11:28 AM EDT) Glucose 130(H) 65 - 99 mg/dL 07/20/2020 12:19 AM T [facility] BUN 24(H) 8 - 23 mg/dL 07/20/2020 12:19 AM T [facility] Creatinine 1.23(H) 0.57 - 1.00 mg/dL 07/20/2020 12:19 AM [facility] Sodium 137 136 - 145 mmol/L 07/20/2020 12:19 AM [facility] Potassium 4.8 3.5 - 5.2 mmol/L 07/20/2020 12:19 AM [facility] Chloride 99 98 - 107 mmol/L 07/20/2020 12:19 AM [facility] CO2 26.7 22.0 - 29.0 mmol/L 07/20/2020 12:19 AM [facility] Calcium 10.0 8.6 - 10.5 mg/dL 07/20/2020 12:19 AM T [facility] eGFR Non Amer 42(L) >60 mL/min/1.7 3 07/20/2020 12:19 AM [facility] BUN/Creatinine Ratio 19.5 7.0 - 25.0 07/20/2020 12:19 AM T [facility] Anion Gap 11.3 5.0 - 15.0 mmol/L 07/20/2020 12:19 AM [facility] Blood Venipuncture / Unknown 07/19/2020 11:28 AM EDT 07/19/2020 11:28 AM EDT Narrative [facility] - 07/20/2020 12:19 AM EDT GFR Normal >60 Chronic Kidney Disease <60 Kidney Failure <15 Betsy Smith MD LAB BLOOD ORDERABLES Final Resul t [facility]
[address] [place] [address], documented in this encounter Visit Diagnoses Diagnosis Stage 3a chronic kidney disease Serum calcium elevated Hypercalcemia documented in this encounter Care Teams Python Consultant Relationship Specialty Start Date End Date Betsy Smith MD [address] [place] [address] PCP - General 02/08/15 documented as of this encounter
--- OUTSIDE RECORDS SUMMARY | 2024-03-25 02:50 | XMS_ITS | Encounter Summary ---
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 * Telephone Encounter - Belle Bishop MA - 03/08/2020 3:16 PM EST Left Vm to call office. * Telephone Encounter - Sloane Wheeler RegSched Rep - 03/08/2020 12:37 PM EST Patient returned phone call. You can reach her at [phone] * Telephone Encounter - Belle Bishop MA - 03/08/2020 11:50 AM EST Left VM to call office. * Telephone Encounter - Belle Bishop MA - 03/08/2020 11:50 AM EST ----- Message from Betsy Smith MD sent at 2020 10:26 PM EDT ----- Will review lab results at upcoming wellness [...] Visit [facility] INTER[facility] MEDICINE [address] [place] [phone] Betsy Smith MD [address] [place] [address] documented as of this encounter Visit Diagnoses Not on filedocumented in this encounter Care Teams Optical Instrument Assembly Supervisor Relationship Specialty Start Date End Date Betsy Smith MD [address] [place] [address] PCP - General 02/08/15 documented as of this encounter
--- OUTSIDE RECORDS SUMMARY | 2024-03-25 02:50 | XMS_ITS | Encounter Summary ---
Author Organization [facility] ystem Address [address] [place] [address] Care Team Providers Care Legal Coordinator Name Role Phone Betsy Smith MD Primary Care Provider [phone] Reason for Visit * Reason Comments Diabetes Encounter Details Date Type Department Care Team ([facility] st Contact Info) Description 12/26/2019 11:15 AM EDT Office Visit 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 documented as of this encounter Last Filed Vital Signs Vital Sign Reading Time Taken Comments Blood Pressure 132/68 12/26/2019 10:59 AM EDT Pulse 88 12/26/2019 10:59 AM EDT Temperature - - Respiratory Rate - - Oxygen Saturation 98% 12/26/2019 10:59 AM EDT Inhaled Oxygen Concentration - - Weight 72.1 kg (159 lb) 12/26/2019 10:59 AM EDT Height 166.4 cm (5' 5.5 ) 12/26/2019 10:59 AM ED T Body Mass Index 26.06 12/26/2019 10:59 AM EDT documented in this encounter Progress Notes * Betsy Smith MD - 12/27/2019 10:25 AM EDTAssociated Problem(s): Osteoporosis On alendronate 70mg weekly with Ca/vit D supplementation; rec weight-bearing exercise; plan to repeat DEXA 2021 * Betsy Smith MD - 12/26/2019 11:15 AM EDT Chief Complaint Patient presents with ??? Diabetes History of Present Illness 84 y.o. woman presents for DM follow-up. Not checking BGs regularly. Has been walking forexercise. Staying isolated due to COVID. Review of Systems Denies CP, palpitations, SOB, lightheadedness, falls, fevers/chills, cold sxs. All other ROS reviewed and negative. PMSFH The following portions of the patient's history were reviewed and updated as appropriate: allergies, current medications, past family history, past medical history, past social history, past surgicalhistory and problem list. Current Outpatient Medications: ??? alendronate (FOSAMAX) 70 MG weekly ??? amLODIPine-benazepril (LOTREL) 5-40 MGQD ??? cholecalciferol (VITAMIN D3) 1000 units QD ??? ezetimibe (Zetia) 10 MG QD ??? metFORMIN ER (GLUCOPHAGE-XR) 750 MG 2 QD ??? Smooth Move Tea QHS ??? omeprazole (priLOSEC) 40 MG QD ??? pioglitazone (ACTOS) 30 MG QD ??? vitamin B-12 (CYANOCOBALAMIN) 1000 MCG QD VITALS: BP 132/68 Pulse 88 Ht 166.4 cm (65.5 ) Wt 72.1 kg (159 lb) SpO2 98% BMI 26.06 kg/m?? Physical Exam Constitutional: She is oriented to person, place, and time. She appears well- developed and well-nourished. Eyes: Conjunctivae and EOM are normal. Cardiovascular: Normal rate, regular rhythm and normal heart sounds. Pulmonary/Chest: Effort normal and breath sounds normal. No respiratory distress. Musculoskeletal: Normal gait Neurological: She is alert and oriented to person, place, and time. Psychiatric: She has a normal mood and affect. Her behavior is normal. Nursing note and vitals reviewed. LABS Results for orders placed or performed in visit on 12/26/19 POC Glycosylated Hemoglobin (Hb A1C) Result Value Ref Range Hemoglobin A1C 6.1 % 06/26 A1C 6.0 ASSESSMENT/PLAN Problem List Items Addressed This Visit Cardiovascular and Mediastinum Hypertension BP stable on amlo benaz 5/40 QD; goal < 130/80 Endocrine Type 2 diabetes mellitus with stage 3 chronic kidney disease, without long-term current use of insulin ([facility]) - Primary BG control stable with A1C 6.0; cont met ER 750mg 2 QD and amita 30mg QD Relevant Orders POC Glycosylated Hemoglobin (Hb A1C) (Completed) Musculoskeletal and Integument Osteoporosis On alendronate 70mg weekly with Ca/vit D supplementation; rec weight-bearing exercise; plan to repeat DEXA 2021 FOLLOW-UP RTC for next wellness 03/12/20; fasting labs prior to appt (CBC, CMP, TSH, lipids, UA/micro, microalb, A1C, FT4, vit D, B12) Electronically signed by: Betsy Smith MD, FACP 12/26/2019 EMR Dragon/[employer] disclaimer: Parts of this encounter note is an electronic interior decorator painting/translation of spoken language to printed text. Electronic translation of spoken language may permit erroneous, or at times, nonsensical words or phrases, to be inadvertently transcribed. Although I have reviewed the note for such errors, some may still exist. * Betsy Smith MD - 12/26/2019 12:01 AM EDTAssociated Problem(s): Type 2 diabetes mellitus with stage 3b chronic kidney disease, without long-term current use of insulin BG control stable with A1C 6.0; cont met ER 750mg 2 QD and amita 30mg QD * Betsy Smith MD - 12/26/2019 12:01 AM EDTAssociated Problem(s): Hypertension BP stable on amlo benaz 5/40 QD; goal < 130/80 documented in this encounter Plan of Treatment Upcoming Encounters Date Type Department Care Team ([facility] st Contact Info) Description 06/09/2024 3:00 PM EST Office Visit [facility] [address] [place] [phone] Betsy Smith MD [address] [place] [address] [phone] documented as of this encounter Procedures Procedure Name Priority Date/Time Associated Diagnosis Comments POCT GLYCOSYLATED HEMOGLOBIN (HGB A1C) Routine 12/26/2019 11:09 AM EDT Type 2 diabetes mellitus with stage 3 chronic kidney disease, without long-term current use of insulin documented in this encounter Results * POC Glycosylated Hemoglobin (Hb A1C) (12/26/2019 11:09 AM EDT) Hemoglobin A1C 6.1 % [facility] Blood 12/26/2019 11:0 9 AM EDT Betsy Smith MD POINT OF CARE TEST ORDERABLES Fi nal Result [facility]
[address] [place] [address], [place] [phone] documented in this encounter Visit Diagnoses Diagnosis Type 2 diabetes mellitus with stage 3 chronic kidney disease, without long-term current use of insulin- Primary Hypertension Unspecified essential hypertension Osteoporosis documented in this encounter Care Teams Legal Coordinator Relationship Specialty Start Date End Date Betsy Smith MD [address] [place] [address] PCP - General 02/08/15 documented as of this encounter
--- OUTSIDE RECORDS SUMMARY | 2024-03-25 02:50 | XMS_ITS | Encounter Summary ---
Author Organization 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 * Telephone Encounter - Roxana Lima RegSched Rep - 06/03/2020 1:55 PM EST Patient returning call received from office. * Telephone Encounter - Belle Bishop MA - 06/03/2020 1:22 PM EST Left VM to call office for lab results. * Telephone Encounter - Belle Bishop MA - 06/03/2020 1:22 PM EST ----- Message from Betsy Smith MD sent at 06/02/2020 12:20 PM EST ----- Stable kidney function. Potassium at upper limits. Continue with plans to change losartan to irbesartan. Make sure not taking any extra potassium in any supplements. documented in this encounter Plan of Treatment Upcoming Encounters Date Type Department Care Team (Late st Contact Info) Description 06/09/2024 3:00 PM EST Office Visit [facility] [address] [place] [phone] Betsy Smith MD [address] [place] [address] documented as of this encounter Visit Diagnoses Not on filedocumented in this encounter Care Teams Circulation Director Relationship Specialty Start Date End Date Betsy Smith MD [address] [place] [phone] PCP - General 02/08/15 documented as of this encounter
--- OUTSIDE RECORDS SUMMARY | 2024-03-25 02:50 | XMS_ITS | Encounter Summary ---
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 Not on fi le documented as of this encounter Progress Notes * Betsy Smith MD - 03/12/2020 2:20 PM EST Kidney function much better, back to baseline, [...] [facility] [address] [place] [phone] Betsy Smith MD [address] [place] [address] documented as of this encounter Procedures Procedure Name Priority Date/Time Associated Diagnosis Comments BASIC METABOLIC PANEL Routine 03/12/2020 2:18 PM EST Stage 3b chronic kidney disease documented in this encounter Results * (ABNORMAL) Basic Metabolic Panel (03/12/2020 2:18 PM EST) Glucose 82 65 - 99 mg/dL 03/12/2020 11:20 PM EST [facility] BUN 21 8 - 23 mg/dL 03/12/2020 11:20 PM EST [facility] Creatinine 1.07(H) 0.57 - 1.00 mg/dL 03/12/2020 11:20 PM EST [facility] Sodium 131(L) 136 - 145 mmol/L 03/12/2020 11:20 PM EST [facility] Potassium 5.3(H) 3.5 - 5.2 mmol/L 03/12/2020 11:20 PM EST [facility] Chloride 98 98 - 107 mmol/L 03/12/2020 11:20 PM EST [facility] CO2 24.6 22.0 - 29.0 mmol/L 03/12/2020 11:20 PM EST [facility] Calcium 9.8 8.6 - 10.5 mg/dL 03/12/2020 11:20 PM [facility] eGFR Non Amer 49(L) >60 mL/min/1.7 3 03/12/2020 11:20 PM EST [facility] BUN/Creatinine Ratio 19.6 7.0 - 25.0 03/12/2020 11:20 PM EST [facility] Anion Gap 8.4 5.0 - 15.0 mmol/L 03/12/2020 11:20 PM EST [facility] Blood Venipuncture / Unknown 03/12/2020 2:18 PM EST 03/12/2020 2:18 PM EST Narrative [facility] - 03/12/2020 11:20 PM EST GFR Normal >60 Chronic Kidney Disease <60 Kidney Failure <15 us Betsy Smith MD LAB BLOOD ORDERABLES Final Resul t [facility]
[address] [place] [address], documented in this encounter Visit Diagnoses Diagnosis Stage 3b chronic kidney disease documented in this encounter Care Teams Police Captain Precinct Relationship Specialty Start Date End Date Betsy Smith MD [address] [place] [address] PCP - General 02/08/15 documented as of this encounter
--- OUTSIDE RECORDS SUMMARY | 2024-03-25 02:50 | XMS_ITS | Encounter Summary ---
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 * Telephone Encounter - Belle Bishop MA - 07/26/2020 9:07 AM EDT ----- Message from Betsy Smith MD sent at 07/24/2020 8:53 PM EDT ----- Calcium level back to normal. Kidney function remains abnormal. Avoid NSAIDs and drink more water on a daily basis. documented in this encounter Plan of Treatment Upcoming Encounters Date Type Department Care Team (Late st Contact Info) Description 06/09/2024 3:00 PM EST Office Visit [facility] [address] [place] [phone] Betsy Smith MD [address] [place] [phone] documented as of this encounter Visit Diagnoses Not on filedocumented in this encounter Care Teams Elderly Sitter Relationship Specialty Start Date End Date Betsy Smith MD [address] [place] [address] PCP - General 02/08/15 documented as of this encounter
--- OUTSIDE RECORDS SUMMARY | 2024-03-25 02:50 | XMS_ITS | Encounter Summary ---
Author Organization [facility] yste Address [address] [place] [address] Care Team Providers Care Supervisor Fish Processing Name Role Phone Betsy Smith MD Primary Care Provider [phone] Reason for Visit * Reason Onset Date Comments Med Refill 03/26/2020 Encounter Details Date Type Department Care Team (Late st Contact Info) Description 03/26/2020 Refill [facility] [address] [place] [phone] [place] [address] [place] [address] Hyperlipidemia Social History Tobacco Use Types Packs/Day [...] 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 They have her in their system as Caitlyn Perales instead of Tasneem so they didn't get the RX into her profile. * Telephone Encounter - Ed Sykes - 03/26/2020 2:17 PM EST Caller: Tasneem Perales Relationship: Self Best call back number: [phone] Medication needed: Requested Prescriptions Pending Prescriptions Disp Refills ??? ezetimibe (Zetia) 10 MG tablet 90 tablet 3 Sig: Take 1 tablet by mouth Daily. When do you need the refill by: JOSE What details did the patient provide when requesting the medication: PATIENT HAS REQUESTED A NEW PRESCRIPTION FOR ABOVE MEDICATION PATIENT STATES DOCTOR NEEDS TO CALL [facility] AT [phone] Does the patient have less than a 3 day supply: [x] Yes [] No What is the patient's preferred pharmacy: [facility] [place] [place] - [id number] TO REGISTERED [facility] - [phone] [facility] [phone] FX documented in this encounter Plan of Treatment Upcoming Encounters Date Type Department Care Team (Late st Contact Info) Description 06/09/2024 3:00 PM EST Office Visit [facility] [address] [place] [phone] Betsy Smith MD [address] [place] [address] documented as of this encounter Visit Diagnoses Diagnosis Hyperlipidemia Pure hypercholesterolemia documented in this encounter Care Teams Supervisor Fish Processing Relationship Specialty Start Date End Date Betsy Smith MD [address] [place] [id number] PCP - General 02/08/15 documented as of this encounter
--- OUTSIDE RECORDS SUMMARY | 2024-03-25 02:50 | XMS_ITS | Encounter Summary ---
Author Organization [facility] ystem Address [address] [place] [address] Care Team Providers Care Family Medicine Resident Name Role Phone Betsy Smith MD Primary Care Provider [phone] Reason for Visit * Reason Comments Review Labs Follow Up Hypertension Encounter Details Date Type Department Care Team (Late st Contact Info) Description 04/06/2020 12:45 PM EST Office Visit [facility] [address] [place] [phone] Betsy Smith MD [address] [place] [address] Hyponatremia (Primary Dx); Stage 3b chronic kidney disease; Hypertension; Type 2 diabetes mellitus with stage 3b [...] 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 Review Labs Follow Up ??? Hypertension History of Present Illness 85 y.o. woman presents for follow-up re: sodium, potassium, and kidney function as well as BP f/u after change of amlo benaz to amlodipine. Has measured with wrist cuff getting 110-130s/60-80s, pulse 80-90s. DOes not add a lot of salt to foods; denies leg swelling. Complains of constipation; has been taking dulcolax TID in addition to her smooth move tea. Wonderswhether this is affecting her labs. Review of Systems ROS (+) for chronic constipation. Denies CP, palpitations, SOB. All other ROS reviewed and negative. PMSFH [...] B-12 (CYANOCOBALAMIN) 500 MCG QD VITALS: BP 142/68 Pulse 78 Wt 73.8 kg (162 lb 9.6 oz) SpO2 97% BMI 26.65 kg/m?? Repeat BP left arm 142/60 Physical Exam Vitals signs and nursing note [...] orders placed or performed in visit on 04/05/20 Basic Metabolic Panel Specimen: Blood Result Value Ref Range Glucose 85 65 - 99 mg/dL BUN 20 8 - 23 mg/dL Creatinine 1.35 (H) 0.57 - 1.00 mg/dL Sodium 134 (L) 136 - 145 mmol/L Potassium 4.9 3.5 - 5.2 mmol/L Chloride 99 98 - 107 mmol/L CO2 27.3 22.0 - 29.0 mmol/L Calcium 10.2 8.6 - 10.5 mg/dL eGFR Non Amer 37 (L) >60 mL/min/1.73 BUN/Creatinine Ratio 14.8 7.0 - 25.0 Anion Gap 7.7 5.0 - 15.0 mmol/L Osmolality, Serum Specimen: Blood Result Value Ref Range Osmolality 289 280 - 301 mOsm/kg Osmolality, Urine - Urine, Clean Catch Specimen: Urine, Clean Catch Result Value Ref Range Osmolality, Urine 447 mOsm/kg Cortisol Specimen: Blood Result Value Ref Range Cortisol 11.02 mcg/dL ASSESSMENT/PLAN Diagnoses and all orders for this visit: 1. Hyponatremia (Primary) Assessment & Plan: Persistent bord hyponatremia, improved to 134; osm levels c/w bord SIADH but need enough fluids foracute on CRF; AM cortisol acceptable 2. Stage 3b chronic kidney disease Assessment & Plan: Renal function labile, worsened today; discussed importance of drinking enough water on daily basis; avoid NSAIDs; maintain good BG and BP control; repeat BMP in 1 wk; ACEI temporarily discont'd (wason amlo/benaz 5/40 QD, currently on amlo 10mg QD for BP); will need to d/c metformin and alendronate if renal function remains worsened 3. Hypertension Assessment & Plan: Recent change of amlo/benaz 5/40 to amlo 10mg QD due to workup of persistent hyponatremia; repeat BP still mildly elevated; discussed how to measure Bps with wrist cuff correctly; cont home monitoring with goal < 130/80 4. Type 2 diabetes mellitus with stage 3b chronic kidney disease, without long- term current use of insulin ([facility]) Assessment & Plan: BG control stable with recent A1C 6.05; cont met ER 750mg 2 QD and amita 30mg QD; encouraged reg physactivity to decr insulin resistance, moderation in unhealthy starches/sweets; f/u A1C in 6 mos Note - will not be able to cont metformin if renal function remains worsened FOLLOW-UP 1. Repeat nonfasting BMP in 1 week 2. Will need to d/c or renall dose meds if renal function continues to worsen 3. RTC 09/09/20 as scheduled with A1C, BMP Electronically signed by: Betsy Smith MD, FACP 04/06/2020 * Betsy Smith MD - 04/04/2020 12:29 AM ESTAssociated Problem(s): Hyponatremia Persistent bord hyponatremia, improved to 134; osm levels c/w bord SIADH but need enough fluids foracute on CRF; AM cortisol acceptable * Betsy Smith MD - 04/04/2020 12:28 AM ESTAssociated Problem(s): CKD (chronic kidney disease), stage III Renal function labile, worsened today; discussed importance of drinking enough water on daily basis; avoid NSAIDs; maintain good BG and BP control; repeat BMP in 1 wk; ACEI temporarily discont'd (wason amlo/benaz 5/40 QD, currently on amlo 10mg QD for BP); will need to d/c metformin and alendronate if renal function remains worsened * Betsy Smith MD - 04/04/2020 12:28 AM ESTAssociated Problem(s): Type 2 diabetes mellitus with stage 3b chronic kidney disease, without long-term current use of insulin BG control stable with recent A1C 6.05; cont met ER 750mg 2 QD and amita 30mg QD; encouraged reg physactivity to decr insulin resistance, moderation in unhealthy starches/sweets; f/u A1C in 6 mos Note - will not be able to cont metformin if renal function remains worsened * Betsy Smith MD - 04/04/2020 12:27 AM ESTAssociated Problem(s): Hypertension Recent change of amlo/benaz 5/40 to amlo [...] [facility] [address] [place] [phone] Betsy Smith MD [address] [place] [address] documented as of this encounter Visit Diagnoses Diagnosis Hyponatremia- Primary Hyposmolality and/or hyponatremia Stage 3b chronic kidney disease Hypertension Unspecified essential hypertension Type 2 diabetes mellitus with stage 3b chronic kidney disease, without long-term current use of insulin documented in this encounter Care Teams Family Medicine Resident Relationship Specialty Start Date End Date Betsy Smith MD [address] [place] [address] PCP - General 02/08/15 documented as of this encounter
--- OUTSIDE RECORDS SUMMARY | 2024-03-25 02:51 | XMS_ITS | Encounter Summary ---
[facility] [address] [place] [address] Care Team Providers Care Construction Rep Name Role Phone Betsy Smith MD Primary Care Provider [phone] Reason for Referral * Diagnostic Imaging (Routine) - Closed Specialty Diagnoses / Procedures Referred By Contac t Referred To Contact Radiology Diagnoses Osteopenia Procedures DEXA Bone Density Axial Betsy Smith MD Phone: tel: fax: [address] Phone: tel: Referral ID Status Reason Start Date Expiration Date Visits Re quested Visits Authorized [id number] Closed 02/29/2016 08/27/2016 1 1 Reason for Visit * Diagnostic Imaging (Routine) - Closed Specialty Diagnoses / Procedures Referred By Contac t Referred To Contact Radiology Diagnoses Osteopenia Procedures DEXA Bone Density Axial Betsy Smith MD Phone: tel: fax: [address] Phone: tel: Referral ID Status Reason Start Date Expiration Date Visits Re quested Visits Authorized [id number] Closed 02/29/2016 08/27/2016 1 1 Encounter Details Date Type Department Care Team (Latest Contact Info) Description 03/09/2016 10:30 AM EDT - 03/09/2016 11:59 PM EDT Hospital Encounter [facility] [address] [place] [address] Betsy Smith MD [address] [place] [address] Osteopenia Discharge Disposition: Home or Self Care Social History Tobacco Use Types Packs/Day Years Used Date Smoking Tobacco: Never Alcohol Use Standard Drinks/Week Comments Yes 0 (1 standard drink = 0.6 oz pur e alcohol) Social Comments Unknown Sex and Gender Information Value Date Recorded Sex Assigned at Not on file Legal Sex Female 12:10 PM EDT Gender Identity Not on file Sexual Orientation Not on file 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 90 capsule 3 02/29/2016 7 aspirin 81 MG tablet Take 1 tablet by mouth Daily. 09/17/2012 8 Cholecalciferol (VITAMIN D3) 1000 UNITS capsule Take 1 capsule by mouth Daily. 09/17/2012 7 ezetimibe (ZETIA) 10 MG tabletIndications:Hy perlipidemia, unspecified hyperlipidemia type Take 1 tablet by mouth Daily. 90 tablet 3 02/29/2016 7 fluticasone (FLONASE) 50 MCG/ACT nasal sprayIndications:[place] marian allergic rhinitis, unspecified allergic rhinitis trigger 2 sprays into each nostril Every Morning. 3 each 3 02/29/2016 7 hydrochlorothiazide (HYDRODIURIL) 25 MG tabletIndications:Es sential hypertension Take 1 tablet by mouth Daily. 90 tablet 3 02/29/2016 7 lansoprazole (PREVACID) 30 MG capsuleIndications:G astroesophageal reflux disease, esophagitis presence not specified Take 1 capsule by mouth Daily. 90 capsule 3 02/29/2016 7 pioglitazone-metFORM IN (ACTOPLUS MET) 15-850 MG per tabletIndications:Co ntrolled type 2 diabetes mellitus without complication, without long-term current use of insulin Take 1 tablet by mouth 2 (Two) Times a Day With Meals. 180 tablet 3 02/29/2016 7 polyethylene glycol (MIRALAX) powder Take by mouth. 1 capful every morning. 09/17/2012 7 documented as of this encounter Plan of Treatment Upcoming Encounters Date Type Department Care Team (Late st Contact Info) Description 06/09/2024 3:00 PM EST Office Visit [facility] [address] [place] [phone] [place] [address] [place] [phone] documented as of this encounter Procedures Procedure Name Priority Date/Time Associated Diagnosis Comments DEXA BONE DENSITY AXIAL Routine 03/09/2016 11:37 AM EDT Osteopenia documented in this encounter Results * DEXA Bone Density Axial (03/09/2016 11:37 AM EDT) Anatomical Region Laterality Modality Wrist, Hip, L-spine N/A Other 03/09/2016 12:1 3 PM EDT Impressions 03/09/2016 1:08 PM EDT The patient has osteoporosis based on the left one third radius T score and according to criteria established by the World Health Organization. All the treatment decisions require clinical judgment [...] weight bearing exercises and fall-prevention measurements. The National Osteoporosis Foundation recommends (http://www.nof.org/hcp/practice/tlkmphwo-jzi-bucqkgcf-guidelines/clinic ans-guide) that FDA-approved medical therapies be considered in postmenopaual women and men aged equal or greater than 50 years with : a) hip or vertebral (clinical or morphometric) fracture; [...] some new clinical indication. INTERVAL CHANGE: ?? This is the patient's baseline exam at this facility. D: ??03/09/2016 E: ??03/09/2016 This report was finalized on 03/09/2016 1:[address] Beverly Patino MD. Narrative 03/09/2016 1:08 PM EDT EXAMINATION: ??DUAL-ENERGY X-RAY ABSORPTIOMETRY (DXA): INDICATION: ??81-year-old postmenopausal patient. Patient gives a history of previous fracture. The patient reports taking vitamin D. COMPARISON: None PROCEDURE: A DXA scan was performed using a Hologic densitometer. The lumbar spine was evaluated as well as both total hips and the left forearm. The T-score compares [...] is within the expected range for age. The WHO diagnostic criteria may be applied in women in the menopausal transition. ??Osteoporosis cannot be diagnosed in men under age 50 on the basis of BMD alone. TECHNICAL QUALITY: ??The study is of good technical quality. RESULTS: Lumbar Spine: ??The BMD measured in the L1-L4 region is 0.928 g/cm2. ??The average T-score is -1.1. ??The Z-score is 0.5. Left Total Hip: ??The BMD measured at the left total proximal femur is 0.715 g/cm2. ??The T-score is -1.9. ??The Z-score is 0.1. Left Femoral Neck: ??The BMD measured at the left femoral neck is 0.739 g/cm2. ??The T-score is -1.0. ??The Z-score is 1.3. Right Total Hip: ??The BMD measured at the right total proximal femur is 0.672 g/cm2. ??The T-score is -2.2. ??The Z-score is -0.2. Right Femoral Neck: ??The BMD measured at the right femoral neck is 0.635 g/cm2. ??The T-score is -1.9. ??The Z-score is 0.3. 1/3 Radius: ??The BMD measured at the left one-third radius is 0.440 g/cm2. ??The T-score is -4.2. ??The Z-score is -1.2. Procedure Note Beverly Patino MD - 03/09/2016 EXAMINATION: DUAL-ENERGY X-RAY ABSORPTIOMETRY (DXA): INDICATION: 81-year-old postmenopausal patient. Patient gives a history of previous fracture. The patient reports taking vitamin D. COMPARISON: None PROCEDURE: A DXA scan was performed using a Hologic densitometer. The lumbar spine was evaluated as well as both total hips and the left forearm. The T-score compares the patient's bone mineral density with the peak bone mass of young normal patients. According to criteria established by the World Health Organization, patients with T-scores between 1.0 and 2.5 standard deviations BELOW the mean are osteopenic (low bone mass). Patients with T-scores EQUAL TO OR GREATER than 2.5 standard deviations below the mean are osteoporotic. The Z-score compares the patient bone mineral density with age and sex matched peers. According to the International Society for Clinical Densitometry's 2007 consensus conference: In women prior to menopause and men less than age 50, Z-scores, not T-scores are preferred. A Z-score of -2.0 or lower is defined as below the expected range for age and a Z-score above -2.0 is within the expected range for age. The WHO diagnostic criteria may be applied in women in the menopausal transition. Osteoporosis cannot be diagnosed in men under age 50 on the basis of BMD alone. TECHNICAL QUALITY: The study is of good technical quality. RESULTS: Lumbar Spine: The BMD measured in the L1-L4 region is 0.928 g/cm2. The average T-score is -1.1. The Z-score is 0.5. Left Total Hip: The BMD measured at the left total proximal femur is 0.715 g/cm2. The T-score is -1.9. The Z-score is 0.1. Left Femoral Neck: The BMD measured at the left femoral neck is 0.739 g/cm2. The T-score is -1.0. The Z-score is 1.3. Right Total Hip: The BMD measured at the right total proximal femur is 0.672 g/cm2. The T-score is -2.2. The Z-score is -0.2. Right Femoral Neck: The BMD measured at the right femoral neck is 0.635 g/cm2. The T-score is -1.9. The Z-score is 0.3. 1/3 Radius: The BMD measured at the left one-third radius is 0.440 g/cm2. The T-score is -4.2. The Z-score is -1.2. IMPRESSION: The patient has osteoporosis based on the left one third radius T score and according to criteria established by the World Health Organization. All the treatment decisions require clinical judgment [...] weight bearing exercises and fall-prevention measurements. The National Osteoporosis Foundation recommends (http://www.nof.org/hcp/practice/ffpiqkjh-tro-jpxopqhr-guidelines/clinic ans-guide) that FDA-approved medical therapies be considered in postmenopaual women and men aged equal or greater than 50 years with : a) hip or vertebral (clinical or morphometric) fracture; [...] is some new clinical indication. INTERVAL CHANGE: This is the patient's baseline exam at this facility. E: 03/09/2016 This report was finalized on 03/09/2016 1:[address] Beverly Patino MD. Betsy Smith MD IMG DXA ORDERABLES Final Result documented in this encounter Visit Diagnoses Diagnosis Osteopenia Disorder of bone and cartilage, unspecified documented in this encounter Care Teams Construction Rep Relationship Specialty Start Date End Date Betsy Smith MD [address] [place] [address] PCP - General 02/08/15 documented as of this encounter
--- OUTSIDE RECORDS SUMMARY | 2024-03-25 02:51 | XMS_ITS | Encounter Summary ---
[facility] Address [address] [place] [address] Care Team Providers Care Lithographic Stripper Name Role Phone Yvette Smith MD Primary Care Provider [phone] Reason for Visit * Reason Comments Medicare Wellness-subsequent Encounter Details Date Type Department Care Team (Late st Contact Info) Description 03/07/2018 11:00 AM EDT Office Visit [facility] [address] [place] [phone] Yvette Smith MD [address] [place] [address] [phone] Medicare annual wellness visit, subsequent (Primary Dx); Hypertension; Hyperlipidemia; Type 2 diabetes mellitus with stage 3 chronic kidney disease, without long-term current use of insulin; Osteoporosis; CKD (chronic kidney disease), stage III; B12 deficiency; Vitamin D deficiency; Controlled type 2 diabetes mellitus without complication, without long-term current use of insulin; Screening for colon cancer Social History Tobacco Use Types Packs/Day Years Used Date Smoking Tobacco: Never Alcohol Use Standard Drinks/Week Comments Yes 0 (1 standard drink = 0.6 oz pur e alcohol) Social Comments No Sex and Gender Information Value Date Recorded Sex Assigned at Not on file Legal Sex Female 12:10 PM EDT Gender Identity Not on file Sexual Orientation Not on file 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 Not on file Not on file Not on fi le documented as of this encounter Last Filed Vital Signs Vital Sign Reading Time Taken Comments Blood Pressure 134/78 03/07/2018 10:37 AM EDT Pulse 98 03/07/2018 10:37 AM EDT Temperature - - Respiratory Rate - - Oxygen Saturation 98% 03/07/2018 10:37 AM EDT Inhaled Oxygen Concentration - - Weight 77.1 kg (170 lb) 03/07/2018 10:37 AM EDT Height 172.1 cm (5' 7.75 ) 03/07/2018 10:37 AM E DT Body Mass Index 26.04 03/07/2018 10:37 AM EDT documented in this encounter Progress Notes * Yvette Smith MD - 03/07/2018 11:00 AM EDTAssociated Order(s): ECG 12-LEAD Post-Procedure Diagnose(s): Essential hypertension ANNUAL WELLNESS VISIT DRUG AND ALCOHOL USE no alcohol use, no caffeine intake, no tobacco intake DIET AND PHYSICAL ACTIVITY Diet: general Exercise: daily Exercise Details: walking MOOD DISORDER AND COGNITIVE SCREENING Depression Screening Tool Used yes - see PHQ-9 Anxiety Screening Tool Used yes Mini-Cog Performed Yes 1. Tell Patient 3 Words apple, table, book 2. Administer Clock Test normal 3. Recall 3 words apple, table, book 4. Number Correct Items 3 FUNCTIONAL ABILITY AND LEVEL OF SAFETY Hearing moderate hearing loss Wears Hearing Aids No Current Activities Independent none - see Funct/Cog Status Intake Fall Risk Assessment Has difficulty with walking or balance No Timed Up and Go (TUG) Test 10 sec. If >12 sec, shuffling ADVANCED DIRECTIVE has NO advance directive - not interested in additional information PAIN SCREENING Do you have pain right now? no If so, 1-10 scale: 0 Do you have pain every day? No Probable chronic pain: No Recent Hospitalizations: No hospitalization(s) within the last year.. MEDICATION REVIEW - updated and reviewed (see Medication List). - reviewed for potentially harmful drug-disease interactions in the elderly. - reviewed for high risk medications in the elderly. - aspirin use: No BMI Body mass index is 26.04 kg/m??. Patient's Body mass index is 26.04 kg/m??. BMI is above normal parameters. Recommendations include:exercise counseling and nutrition counseling. Chief Complaint Patient presents with ??? Medicare Wellness-subsequent History of Present Illness 83 y.o. woman presents for updated wellness visit. Has no specific complaints today Review of Systems Denies headaches, visual changes, CP, palpitations, SOB, cough, abd pain, n/v/d, difficulty with urination, numbness/tingling, falls, mood changes, lightheadedness, hearing changes, rashes. Denies vaginal discharge or bleeding (no periods) or breast concerns. Has 3 dogs and walks them for exercise. Washere/dryer are in the basement and she goes up and down the stairs at least 3 times each day. 20-year-old granddaughter lives with her. All other ROS reviewed and negative. PMSF The following portions of the patient's history were reviewed and updated as appropriate: allergies, current medications, past family history, past medical history, past social history, past surgicalhistory and problem list. Current Outpatient Prescriptions: ??? amLODIPine-benazepril (LOTREL) 5-40 MG QD ??? DODVKOE-[id number]-[id number] D PO, 2 QD ??? ezetimibe (ZETIA) 10 MG tablet, QD ??? Smooth Move Tea QHS ??? omeprazole (priLOSEC) 40 MG QD ??? pioglitazone-metFORMIN (ACTOPLUS MET) 15-850 MG BID VITALS: BP 134/78 Pulse 98 Ht 172.1 cm (67.75 ) Wt 77.1 kg (170 lb) SpO2 98% BMI 26.04 kg/m?? Physical Exam Constitutional: She is oriented to person, place, and time. She appears well- developed and well-nourished. HENT: Head: Normocephalic. Right Ear: External ear normal. Left Ear: External ear normal. Nose: Nose normal. Mouth/Throat: Oropharynx is clear and moist and mucous membranes are normal. No oropharyngeal exudate. Eyes: Pupils are equal, round, and reactive to light. Conjunctivae and EOM are normal. Neck: Normal range of motion. Neck supple. Carotid bruit is not present (bilaterally). No thyromegaly present. Cardiovascular: Normal rate, regular rhythm and normal heart sounds. Pulmonary/Chest: Effort normal and breath sounds normal. No respiratory distress. She has no wheezes. She has no rales. Abdominal: Soft. Bowel sounds are normal. She exhibits no distension and no mass. There is no hepatosplenomegaly. There is no tenderness. Genitourinary: Genitourinary Comments: Breast exam unremarkable without masses, skin changes, nipple discharge, oraxillary adenopathy. Musculoskeletal: Normal range of motion. She exhibits no edema. Lymphadenopathy: She has no cervical adenopathy. Neurological: She is alert and oriented to person, place, and time. She has normal reflexes. She displays normal reflexes. No cranial nerve deficit. Skin: Skin is warm and dry. No rash noted. Psychiatric: She has a normal mood and affect. Her behavior is normal. Nursing note and vitals reviewed. LABS Results for orders placed or performed in visit on 02/01/18 Basic Metabolic Panel Result Value Ref Range Glucose 90 70 - 100 mg/dL BUN 20 9 - 23 mg/dL Creatinine 1.15 0.60 - 1.30 mg/dL Sodium 137 132 - 146 mmol/L Potassium 4.9 3.5 - 5.5 mmol/L Chloride 95 (L) 99 - 109 mmol/L CO2 28.0 20.0 - 31.0 mmol/L Calcium 9.6 8.7 - 10.4 mg/dL eGFR Non Amer 45 (L) >60 mL/min/1.73 BUN/Creatinine Ratio 17.4 7.0 - 25.0 Anion Gap 14.0 (H) 3.0 - 11.0 mmol/L POC Glycosylated Hemoglobin (Hb A1C) Result Value Ref Range Hemoglobin A1C 5.7 % ECG 12 Lead Date/Time: 03/07/2018 11:05 AM Performed by: YVETTE SMITH Authorized by: YVETTE SMITH Comparison: compared with previous ECG Similar to previous ECG Rhythm: sinus rhythm Rate: normal BPM: 61 Conduction: conduction normal ST Segments: ST segments normal QRS axis: normal Other findings comments: inverted T wave in III Clinical impression comment: stable EKG ASSESSMENT/PLAN Problem List Items Addressed This Visit Hyperlipidemia Update lipids with goal LDL < 100; on zetia 10mg QD #90, 3RF Relevant Medications ezetimibe (ZETIA) 10 MG tablet Type 2 diabetes mellitus with stage 3 chronic kidney disease, without long-term current use of insulin ([facility]) A1C 5.7 in 01/22 on amita met 15/850 BID #180, 3RF; encouraged reg phys activity to decr insulin resistance, moderation in unhealthy starches/sweets; f/u A1C in 6 mos Relevant Medications pioglitazone-metFORMIN (ACTOPLUS MET) 15-850 MG per tablet Hypertension BP stable; check electrolytes on amlo benaz 5/40 QD #90, 3RF Relevant Medications amLODIPine-benazepril (LOTREL) 5-40 MG per capsule Other Relevant Orders ECG 12 Lead Osteoporosis Calcium and vitamin D supplementation with weight-bearing exercise; DEXA 03/22, repeat 2019 CKD (chronic kidney disease), stage III (CMS/[facility]) Update Cr/GFR; discussed importance of good BP and BG control; on ACEI for nephroprotective effects; avoid NSAIDs Relevant Orders CBC Auto Differential Vitamin D deficiency Check vit D level on Ca/vit D supplementation Relevant Orders Vitamin D 25 Hydroxy Medicare annual wellness visit, subsequent - Primary Health maintenance - flu vacc 01/22; Prevnar [...] (+)seat belt use Consultants: Patient Care Team: Yvette Smith MD as PCP - General Yvette Smith MD as PCP - Claims Attributed Ed Duque MD as Consulting Physician (Ophthalmology) Julito Shen MD as Consulting Physician (Gastroenterology) B12 deficiency Update B12 level; no current supplementation Relevant Medications vitamin B-12 (CYANOCOBALAMIN) 1000 MCG tablet Other Visit Diagnoses Controlled type 2 diabetes mellitus without complication, without long-term current use of insulin (CMS/[facility]) Relevant Medications pioglitazone-metFORMIN (ACTOPLUS MET) 15-850 MG per tablet Other Relevant Orders CBC Auto Differential Urinalysis without microscopic (no culture) - Urine, Clean Catch Urinalysis, Microscopic Only - Urine, Clean Catch Screening for colon cancer Relevant Orders Cologuard - Stool, Per Rectum FOLLOW-UP 1. PE labs done on the way out the door - was nonfasting (toast with jelly and instant coffee, no creamer) 2. RTC 6 mos with A1C Electronically signed by: Yvette Smith MD 03/07/2018 * Yvette Smith MD - 03/07/2018 11:00 AM EDT Overall labs are stable except low vit D and abnormal urine. Please take [id number] vitamin D3 2000 units daily and we can repeat the vitamin D level in 6 months. Regarding the urine, there is microscopic blood in the urine. Please return to provide another clean catch urine. If the microscopic blood is still present, we will need to refer you to urology for further evaluation. * Yvette Smith MD - 03/07/2018 12:01 AM EDTAssociated Problem(s): CKD (chronic kidney disease), stage III Update Cr/GFR; discussed importance of good BP and BG control; on ACEI for nephroprotective effects; avoid NSAIDs * Yvette Smith MD - 03/07/2018 12:01 AM EDTAssociated Problem(s): Osteoporosis Calcium and vitamin D supplementation with weight-bearing exercise; DEXA 03/22, repeat 2018 * Yvette Smith MD - 03/06/2018 11:59 PM EDTAssociated Problem(s): Type 2 diabetes mellitus with stage 3b chronic kidney disease, without long-term current use of insulin A1C 5.7 in 01/22 on amita met 15/850 BID #180, 3RF; encouraged reg phys activity to decr insulin resistance, moderation in unhealthy starches/sweets; f/u A1C in 6 mos * Yvette Smith MD - 03/06/2018 11:58 PM EDTAssociated Problem(s): Vitamin D deficiency Check vit D level on Ca/vit D supplementation * Yvette Smith MD - 03/06/2018 11:58 PM EDTAssociated Problem(s): B12 deficiency Update B12 level; no current supplementation * Yvette Smith MD - 03/06/2018 11:57 PM EDTAssociated Problem(s): Hypertension BP stable; check electrolytes on amlo benaz 5/40 QD #90, 3RF * Yvette Smith MD - 03/06/2018 11:57 PM EDTAssociated Problem(s): Hyperlipidemia Update lipids with goal LDL < 100; on zetia 10mg QD #90, 3RF * Yvette Smith MD - 03/06/2018 11:56 PM EDTAssociated Problem(s): Medicare annual wellness visit, subsequent Health maintenance - flu vacc 01/22; Prevnar [...] (+)seat belt use Consultants: Patient Care Team: Yvette Smith MD as PCP - General Yvette Smith MD as PCP - Claims Attributed Ed Duque MD as Consulting Physician (Ophthalmology) Julito Shen MD as Consulting Physician (Gastroenterology) documented in this encounter Plan of Treatment Upcoming Encounters Date Type Department Care Team (Late st Contact Info) Description 06/09/2024 3:00 PM EST Office Visit [facility] [address] [place] [phone] [place] [address] [place] [phone] documented as of this encounter Procedures Procedure Name Priority Date/Time Associated Diagnosis Comments URINALYSIS, MICROSCOPIC ONLY Routine 03/07/2018 11:46 AM EDT Controlled type 2 diabetes mellitus without complication, without long-term current use of insulin CBC WITH AUTO DIFFERENTIAL Routine 03/07/2018 11:46 AM EDT Controlled type 2 diabetes mellitus without complication, without long-term current use of insulin CKD (chronic kidney disease), stage III MICROALBUMIN / CREATININE URINE RATIO Routine 03/07/2018 11:46 AM EDT Type 2 diabetes mellitus with stage 3 chronic kidney disease, without long-term current use of insulin VITAMIN D,25-HYDROXY Routine 03/07/2018 11:46 AM EDT Vitamin D deficiency URINALYSIS AND MICROSCOPIC Routine 03/07/2018 11:46 AM EDT Type 2 diabetes mellitus with stage 3 chronic kidney disease, without long-term current use of insulin Hypertension URINALYSIS WITHOUT MICROSCOPIC (NO CULTURE) Routine 03/07/2018 11:46 AM EDT Controlled type 2 diabetes mellitus without complication, without long-term current use of insulin CBC AND DIFFERENTIAL Routine 03/07/2018 11:46 AM EDT CKD (chronic kidney disease), stage III TSH Routine 03/07/2018 11:46 AM EDT Medicare annual wellness visit, subsequent T4, FREE Routine 03/07/2018 11:46 AM EDT Hyperlipidemia CKD (chronic kidney disease), stage III VITAMIN B12 Routine 03/07/2018 11:46 AM EDT B12 deficiency LIPID PANEL Routine 03/07/2018 11:46 AM EDT Hyperlipidemia CKD (chronic kidney disease), stage III COMPREHENSIVE METABOLIC PANEL Routine 03/07/2018 11:46 AM EDT CKD (chronic kidney disease), stage III Type 2 diabetes mellitus with stage 3 chronic kidney disease, without long-term current use of insulin ECG 12-LEAD Routine 03/07/2018 11:00 AM EDT Hypertension documented in this encounter Results * Vitamin D 25 Hydroxy (03/07/2018 11:46 AM EDT) 25 Hydroxy, Vitamin D 23.0 ng/ml 03/07/2018 5:44 PM EDT [facility] Blood Venipuncture / Unknown 03/07/2018 11:46 AM EDT 03/07/2018 11:46 AM EDT Narrative [facility] - 03/07/2018 5:44 PM EDT Reference Ranges for Total Vitamin D 25(OH) Deficiency ?<20.0 ng/ml Insufficiency ?? 20-30 ng/ml Sufficiency ?30-100 ng/ml Toxicity ? >100 ng/ml us Yvette Smith MD LAB BLOOD ORDERABLES Final Resul t [facility]
[address] [place] [address], * (ABNORMAL) Urinalysis, Microscopic Only - Urine, Clean Catch (03/07/2018 11:46 AM EDT) RBC, UA 13-20(A) None Seen, 0-2 /HPF 03/07/2018 4:36 PM EDT [facility] WBC, UA 0-2 None Seen, 0-2 /HPF 03/07/2018 4:36 PM EDT [facility] Bacteria, UA None Seen None Seen, Trace /HPF 03/07/2018 4:36 PM EDT [facility] Squamous Epithelial Cells, UA 0-2 None Seen, 0-2 /HPF 03/07/2018 4:36 PM EDT [facility] Hyaline Casts, UA 0-6 0 - 6 /LPF 03/07/2018 4:36 PM EDT [facility] Methodology Automated Microscopy 03/07/2018 4:36 PM EDT [facility] Urine Urine specimen collection, clean catch / Unknown Collection / Unknown 03/07/2018 11:46 AM EDT 03/07/2018 11:46 AM EDT Yvette Smith MD URINE ORDERABLES Final Result [facility]
[address] [place] [address], * Urinalysis without microscopic (no culture) - Urine, Clean Catch (03/07/2018 11:46 AM EDT) Color, UA Yellow Yellow, Straw 03/07/2018 4:36 PM EDT [facility] Appearance, UA Clear Clear 03/07/2018 4:36 PM EDT [facility] pH, UA <=5.0 5.0 - 8.0 03/07/2018 4:36 PM EDT [facility] Specific [place], UA 1.014 1.001 - 1.030 03/07/2018 4:36 PM EDT [facility] Glucose, UA Negative Negative 03/07/2018 4:36 PM EDT [facility] Ketones, UA Negative Negative 03/07/2018 4:36 PM EDT [facility] Bilirubin, UA Negative Negative 03/07/2018 4:36 PM EDT [facility] Blood, UA Negative Negative 03/07/2018 4:36 PM EDT [facility] Protein, UA Negative Negative 03/07/2018 4:36 PM EDT [facility] Leuk Esterase, UA Negative Negative 03/07/2018 4:36 PM EDT [facility] Nitrite, UA Negative Negative 03/07/2018 4:36 PM EDT [facility] Urobilinogen, UA 0.2 E.U./dL 0.2 - 1.0 E.U./dL 03/07/2018 4:36 PM EDT [facility] Urine Urine specimen collection, clean catch / Unknown Collection / Unknown 03/07/2018 11:46 AM EDT 03/07/2018 11:46 AM EDT Yvette Smith MD URINE ORDERABLES Final Result [facility]
[address] [place] [address], * (ABNORMAL) CBC Auto Differential (03/07/2018 11:46 AM EDT) WBC 5.52 3.50 - 10.80 10*3/mm3 03/07/2018 4:33 PM EDT [facility] RBC 4.02 3.89 - 5.14 10*6/mm3 03/07/2018 4:33 PM EDT [facility] Hemoglobin 11.3(L) 11.5 - 15.5 g/dL 03/07/2018 4:33 PM EDT [facility] Hematocrit 35.5 34.5 - 44.0 % 03/07/2018 4:33 PM EDT [facility] MCV 88.3 80.0 - 99.0 fL 03/07/2018 4:33 PM EDT [facility] MCH 28.1 27.0 - 31.0 pg 03/07/2018 4:33 PM EDT [facility] MCHC 31.8(L) 32.0 - 36.0 g/dL 03/07/2018 4:33 PM EDT [facility] RDW 15.7(H) 11.3 - 14.5 % 03/07/2018 4:33 PM EDT [facility] RDW-SD 51.1 37.0 - 54.0 fl 03/07/2018 4:33 PM EDT [facility] MPV 10.4 6.0 - 12.0 fL 03/07/2018 4:33 PM EDT [facility] Platelets 322 150 - 450 10*3/mm3 03/07/2018 4:33 PM EDT [facility] Neutrophil % 65.2 41.0 - 71.0 % 03/07/2018 4:33 PM EDT [facility] Lymphocyte % 23.7(L) 24.0 - 44.0 % 03/07/2018 4:33 PM EDT [facility] Monocyte % 8.9 0.0 - 12.0 % 03/07/2018 4:33 PM EDT [facility] Eosinophil % 1.1 0.0 - 3.0 % 03/07/2018 4:33 PM EDT [facility] Basophil % 0.7 0.0 - 1.0 % 03/07/2018 4:33 PM EDT [facility] Immature Grans % 0.4 0.0 - 0.6 % 03/07/2018 4:33 PM EDT [facility] Neutrophils, Absolute 3.60 1.50 - 8.30 10*3/mm3 03/07/2018 4:33 PM EDT [facility] Lymphocytes, Absolute 1.31 0.60 - 4.80 10*3/mm3 03/07/2018 4:33 PM EDT [facility] Monocytes, Absolute 0.49 0.00 - 1.00 10*3/mm3 03/07/2018 4:33 PM EDT [facility] Eosinophils, Absolute 0.06 0.00 - 0.30 10*3/mm3 03/07/2018 4:33 PM EDT [facility] Basophils, Absolute 0.04 0.00 - 0.20 10*3/mm3 03/07/2018 4:33 PM EDT [facility] Immature Grans, Absolute 0.02 0.00 - 0.03 10*3/mm3 03/07/2018 4:33 PM EDT [facility] Blood Venipuncture / Unknown 03/07/2018 11:46 AM EDT 03/07/2018 11:46 AM EDT us Yvette Smith MD LAB BLOOD ORDERABLES Final Resul t Performing Organization Address City/[facility]/ZIP Co de Phone Number [facility]
[address] [place] [address], * Vitamin B12 (03/07/2018 11:46 AM EDT) Vitamin B-12 684 211 - 911 pg/mL 03/07/2018 5:44 PM EDT [facility] Blood Venipuncture / Unknown 03/07/2018 11:46 AM EDT 03/07/2018 11:46 AM EDT us Yvette Smith MD LAB BLOOD ORDERABLES Final Resul t [facility]
[address] [place] [address], * Microalbumin / Creatinine Urine Ratio - Urine, Clean Catch (03/07/2018 11:46 AM EDT) Creatinine, Urine 57.4 Not Estab. mg/dL 03/08/2018 9:21 AM EDT [facility] Microalbumin, Urine <3.0 Not Estab. ug/mL 03/08/2018 9:21 AM EDT [facility] Microalbumin/Cr eatinine Ratio <5.2 0.0 - 30.0 mg/g creat 03/08/2018 9:21 AM EDT [facility] Comment: ? Normal: ?0.0 - ??30.0 ? Albuminuria: ?31.0 - 300.0 ? Clinical albuminuria: ? >300.0 Urine Urine specimen collection, clean catch / Unknown Collection / Unknown 03/07/2018 11:46 AM EDT 03/07/2018 11:46 AM EDT Narrative [facility] - 03/08/2018 9:21 AM EDT Performed at: ??01 - [facility] ??[id number] Teletype Technician: Gerardo Yanez PhD, Phone: ??[phone] us Yvette Smith MD URINE ORDERABLES Final Result Performing Organization Address [facility] Co de Phone Number [facility] [address] [place] [phone], * T4, free (03/07/2018 11:46 AM EDT) Free T4 1.30 0.89 - 1.76 ng/dL 03/07/2018 5:44 PM EDT [facility] Blood Venipuncture / Unknown 03/07/2018 11:46 AM EDT 03/07/2018 11:46 AM EDT us Yvette Smith MD LAB BLOOD ORDERABLES Final Resul t [facility]
[address] [place] [address], [place] [phone] * (ABNORMAL) Lipid panel (03/07/2018 11:46 AM EDT) Total Cholesterol 164 0 - 200 mg/dL 03/07/2018 5:34 PM EDT [facility] Triglycerides 66 0 - 150 mg/dL 03/07/2018 5:34 PM EDT [facility] HDL Cholesterol 78(H) 40 - 60 mg/dL 03/07/2018 5:34 PM EDT [facility] LDL Cholesterol 81 0 - 130 mg/dL 03/07/2018 5:34 PM EDT [facility] Blood Venipuncture / Unknown 03/07/2018 11:46 AM EDT 03/07/2018 11:46 AM EDT [facility] - 03/07/2018 5:34 PM EDT Cholesterol Reference Ranges: Desirable ? < 200 mg/dL Borderline ?200-239 mg/dL High Risk ? > 239 mg/dL Triglyceride Reference Ranges: Normal ?< 150 mg/dL Borderline ?150-199 mg/dL High ?200-499 mg/dL Very High ? > 499 mg/dL HDL Reference Ranges: Low ?< 40 mg/dL High ? > 59 mg/dL LDL Reference Ranges: Optimal ? < 100 mg/dL Near Optimal ??100-129 mg/dL Borderline ?130-159 mg/dL High ?160-189 mg/dL Very High ? > 189 mg/dL us Yvette Smith MD LAB BLOOD ORDERABLES Final Resul t [facility]
[address] [place] [address], * (ABNORMAL) Comprehensive metabolic panel (03/07/2018 11:46 AM EDT) Glucose 88 70 - 100 mg/dL 03/07/2018 5:34 PM EDT [facility] BUN 26(H) 9 - 23 mg/dL 03/07/2018 5:34 PM EDT [facility] Creatinine 1.17 0.60 - 1.30 mg/dL 03/07/2018 5:34 PM EDT [facility] Sodium 137 132 - 146 mmol/L 03/07/2018 5:34 PM EDT [facility] Potassium 5.0 3.5 - 5.5 mmol/L 03/07/2018 5:34 PM EDT [facility] Chloride 103 99 - 109 mmol/L 03/07/2018 5:34 PM EDT [facility] CO2 26.0 20.0 - 31.0 mmol/L 03/07/2018 5:34 PM EDT [facility] Calcium 9.4 8.7 - 10.4 mg/dL 03/07/2018 5:34 PM EDT [facility] Total Protein 6.0 5.7 - 8.2 g/dL 03/07/2018 5:34 PM EDT [facility] Albumin 4.18 3.20 - 4.80 g/dL 03/07/2018 5:34 PM EDT [facility] ALT (SGPT) 8 7 - 40 U/L 03/07/2018 5:34 PM EDT [facility] AST (SGOT) 16 0 - 33 U/L 03/07/2018 5:34 PM EDT [facility] Alkaline Phosphatase 65 25 - 100 U/L 03/07/2018 5:34 PM EDT [facility] Total Bilirubin 0.4 0.3 - 1.2 mg/dL 03/07/2018 5:34 PM EDT [facility] eGFR Non Amer 44(L) >60 mL/min/1.7 3 03/07/2018 5:34 PM EDT [facility] Globulin 1.8 gm/dL 03/07/2018 5:34 PM EDT [facility] A/G Ratio 2.3 1.5 - 2.5 g/dL 03/07/2018 5:34 PM EDT [facility] BUN/Creatinine Ratio 22.2 7.0 - 25.0 03/07/2018 5:34 PM EDT [facility] Anion Gap 8.0 3.0 - 11.0 mmol/L 03/07/2018 5:34 PM EDT [facility] Blood Venipuncture / Unknown 03/07/2018 11:46 AM EDT 03/07/2018 11:46 AM EDT Narrative [facility] - 03/07/2018 5:34 PM EDT [employer] Guidelines Stage ? Description ?GFR 1 ? Normal or High ? 90+ 2 ? Mild decrease ?60-89 3 ? Moderate decrease ??30-59 4 ? Severe decrease ?15-29 5 ? Kidney failure ? <15 The MDRD GFR formula is only valid for adults with stable renal function between ages 18 and 70. us Yvette Smith MD LAB BLOOD ORDERABLES Final Resul t Performing Organization Address City/[facility] Co de Phone Number [facility]
[address] [place] [address], * TSH (03/07/2018 11:46 AM EDT) TSH 1.863 0.350 - 5.350 mIU/mL 03/07/2018 5:44 PM EDT [facility] Blood Venipuncture / Unknown 03/07/2018 11:46 AM EDT 03/07/2018 11:46 AM EDT us Yvette Smith MD LAB BLOOD ORDERABLES Final Resul t Performing Organization Address City/[facility] Co de Phone Number [facility]
[address] [place] [address], * ECG 12-LEAD (03/07/2018 11:00 AM EDT) Narrative Yvette Smith MD - 03/07/2018 11:00 AM EDT Yvette Smith MD ? 03/07/2018 ??2:11 PM ECG 12 Lead Date/Time: 03/07/2018 11:05 AM Performed by: YVETTE SMITH Authorized by: YVETTE SMITH Comparison: compared with previous ECG Similar to previous ECG Rhythm: sinus rhythm Rate: normal BPM: 61 Conduction: conduction normal ST Segments: ST segments normal QRS axis: normal Other findings comments: inverted T wave in III Clinical impression comment: stable EKG Yvette Smith MD ECG ORDERABLES Final Result documented in this encounter Visit Diagnoses Diagnosis Medicare annual wellness visit, subsequent- Primary Hypertension Unspecified essential hypertension Hyperlipidemia Pure hypercholesterolemia Type 2 diabetes mellitus with stage 3 chronic kidney disease, without long-term current use of insulin Osteoporosis CKD (chronic kidney disease), stage III Chronic kidney disease, Stage III (moderate) B12 deficiency Vitamin D deficiency Controlled type 2 diabetes mellitus without complication, without long-term current use of insulin Screening for colon cancer Special screening for malignant neoplasms, colon documented in this encounter Care Teams Lithographic Stripper Relationship Specialty Start Date End Date Yvette Smith MD [address] [place] [address] PCP - General 02/08/15 documented as of this encounter
--- OUTSIDE RECORDS SUMMARY | 2024-03-25 02:51 | XMS_ITS | Encounter Summary ---
Author Organization [facility] Address [address] [place] [address] Care Team Providers Care Obstetrical Tech Name Role Phone Betsy Smith MD Primary Care Provider [phone] Reason for Visit * Reason Onset Date Comments Call from [facility]-requesting alcohol pads 06/30/2016 Encounter Details Date Type Department Care Team (Late st Contact Info) Description 06/30/2016 Telephone [facility]IC[facility] [address] [place] [phone] Beba Malone MA Call from [facility]-requesting alcohol pads Social History Tobacco Use Types Packs/Day Years [...] 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 She did not request this. I did not send an order. * Telephone Encounter - Beba Malone MA - 06/30/2016 3:25 PM EST ----- Message from Sunshine Souza sent at 06/30/2016 1:40 PM EST ----- Contact: DIANA WITH [facility] SHE IS CALLING STATING THEY HAD FAXED A REQUEST FOR PATIENT TO HAVE ALCOHOL PADS. THEY ARE CHECKINGTO SEE IF WE HAVE RECEIVED THIS REQUEST AND IF WE CAN SEND IT BACK TO THEM. YOU CAN REACH HER BACK AT [phone]. REFERENCE NUMBER IS [id number]. FAX NUMBER [phone] documented in this encounter Plan of Treatment Upcoming Encounters Date Type Department Care Team (Late st Contact Info) Description 06/09/2024 3:00 PM EST Office Visit [facility] [address] [place] [phone] [place] [address] [place] [address] documented as of this encounter Visit Diagnoses Not on filedocumented in this encounter Care Teams Obstetrical Tech Relationship Specialty Start Date End Date Betsy Smith MD [address] [place] [address] [phone] PCP - General 02/08/15 documented as of this encounter
--- OUTSIDE RECORDS SUMMARY | 2024-03-25 02:51 | XMS_ITS | Encounter Summary ---
Author Organization [facility]stem Address [address] [place] [address] Care Team Providers Care Development Chemist Name Role Phone Betsy Smith MD Primary Care Provider [phone] Reason for Visit * Reason Comments Type 2 diabetes mellitus follow up Urinary Incontinence Leg Swelling Encounter Details Date Type Department Care Team (Late st Contact Info) Description 09/06/2018 1:45 PM EDT Office Visit [facility] [address] [place] [phone] [place] [address] [place] [address] Type 2 diabetes mellitus with stage 3 chronic kidney disease, without long-term current use of insulin (Primary Dx); Hypertension; Microscopic hematuria; Vitamin D deficiency; Mixed urge and stress incontinence; Gastroesophageal reflux disease, esophagitis presence not specified; Leg swelling Social History Tobacco Use Types Packs/Day Years Used Date Smoking Tobacco: Never Alcohol Use Standard Drinks/Week Comments Yes 0 (1 standard drink = 0.6 oz pur e alcohol) Social PHQ-2 Answer Date Recorded PHQ-2 Score 1 09/07/2018 Comments No Sex and Gender Information Value Date Recorded Sex Assigned at Not on file Legal Sex Female 12:10 PM EDT Gender Identity Not on file Sexual Orientation Not on file 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 Not on file Not on fi le documented as of this encounter Last Filed Vital Signs Vital Sign Reading Time Taken Comments Blood Pressure 142/70 09/06/2018 2:22 PM EDT Pulse 97 09/06/2018 2:22 PM EDT Temperature 36.7 ??C (98.1 ??F) 09/06/2018 2:22 PM ED T Respiratory Rate - - Oxygen Saturation 99% 09/06/2018 2:22 PM EDT Inhaled Oxygen Concentration - - Weight 74.4 kg (164 lb) 09/06/2018 2:22 PM EDT Height 172.1 cm (5' 7.75 ) 09/06/2018 2:22 PM ED T Body Mass Index 25.12 09/06/2018 2:22 PM EDT documented in this encounter Progress Notes * Betsy Smith MD - 09/06/2018 9:13 PM EDTAssociated Problem(s): Esophageal reflux Advised that she shouldn't get RX for omeprazole from both here as well as her local physician; shedecides she will get it at her local physician to maintain relationship there - this is the office she goes to locally with minor complaints * Betsy Smith MD - 09/06/2018 8:15 PM EDTAssociated Problem(s): Overflow incontinence of urine rec more frequent bathroom breaks and not waiting until last minute to go to bathroom; rec scheduled bathroom breaks during the daytime; discussed role of meds and potential s/e; follow clinically * Betsy Smith MD - 09/06/2018 1:45 PM EDT Chief Complaint Patient presents with ??? Type 2 diabetes mellitus follow up ??? Urinary Incontinence ??? Leg Swelling History of Present Illness 83 y.o. woman presents for DM follow-up. Does not check BGs. Complains of leaking before she can get to the bathroom. Example - she will be watching TV, have the thought to go to the bathroom, decide to watch the program for 5 more minutes, and then go to the bathroom. Has leakage on her way there. Denies pain with urination. Denies pelvic pain. Has been taking vit D 1000 units QD regularly. Reports starting Osteo Bi-Flex for some left knee pain (attributed to OA), was on a trip, and and subsequently developed some leg swelling. Wonders whether this could have been caused by Osteo Bi-Flex. Both legs were symmetrically swollen. Swelling has since resolved. It comes and goes. Reports that she did not ever get results of Cologuard. States she is due for omeprazole RF: wonders whether she should get RX from her local physician, who has been giving her the RX previously; states they are requiring an OV to give her the RX. Review of Systems ROS (+) for urinary urgency, incontinence without dysuria nor blood in urine. Denies abd pain or pelvic pain. Denies CP, palpitations, SOB, lightheadedness, falls. ROS (+) for left knee pain due to arthritis. ROS (+) for bilat leg swelling with travel. All other ROS reviewed and negative. [facility] The following portions of the patient's history were reviewed and updated as appropriate: allergies, current medications, past family history, past medical history, past social history, past surgicalhistory and problem list. Current Outpatient Medications: ??? amLODIPine-benazepril (LOTREL) 5-40 MG QD ??? cholecalciferol (VITAMIN D3) 1000 units QD ??? ezetimibe (ZETIA) 10 MG qD ??? Smooth Move Tea QHS ??? omeprazole (priLOSEC) 40 MG QD ??? pioglitazone-metFORMIN 15-850 MG BID ??? vitamin B-12 (CYANOCOBALAMIN) 1000 MCG QD VITALS: BP 142/70 Pulse 97 Temp 98.1 ??F (36.7 ??C) Ht 172.1 cm (67.75 ) Wt 74.4 kg (164 lb) VuK187% BMI 25.12 kg/m?? Physical Exam Constitutional: She is oriented to person, place, and time. She appears well- developed and well-nourished. Eyes: Conjunctivae and EOM are normal. Cardiovascular: Normal rate, regular rhythm and normal heart sounds. Pulmonary/Chest: Effort normal and breath sounds normal. No respiratory distress. Abdominal: Soft. Bowel sounds are normal. There is no tenderness. There is no guarding. Musculoskeletal: She exhibits no edema (BLE). Neurological: She is alert and oriented to person, place, and time. Psychiatric: She has a normal mood and affect. Her behavior is normal. Nursing note and vitals reviewed. LABS Results for orders placed or performed in visit on 09/06/18 POC Glycosylated Hemoglobin (Hb A1C) Result Value Ref Range Hemoglobin A1C 5.8 % 01/22 A1C 5.7, vit D 23.0 ASSESSMENT/PLAN Problem List Items Addressed This Visit Esophageal reflux (Chronic) Advised that she shouldn't get RX for omeprazole from both here as well as her local physician; shedecides she will get it at her local physician to maintain relationship there - this is the office she goes to locally with minor complaints Type 2 diabetes mellitus with stage 3 chronic kidney disease, without long-term current use of insulin ([facility]) - Primary BG control stable with a1C 5.8; on amita-met 15/850 BID; encouraged reg phys activity to decr insulinresistance, moderation in unhealthy starches/sweets; f/u A1C in 6 mos Relevant Orders POC Glycosylated Hemoglobin (Hb A1C) (Completed) Hypertension BP mildly elevated today - abnormal; remains on amlo benaz 5/40 QD; rec checking BPs at home with goal < 130/80 Mixed urge and stress incontinence rec more frequent bathroom breaks and not waiting until last minute to go to bathroom; rec scheduled bathroom breaks during the daytime; discussed role of meds and potential s/e; follow clinically Vitamin D deficiency Overdue for f/u vit D level, currently taking 1000 units QD supplementation Relevant Orders Vitamin D 25 Hydroxy Microscopic hematuria needs f/u UA/micro for f/u evaluation from 03/24; if persistent, referral to urology Relevant Orders Urinalysis With Microscopic - Urine, Clean Catch Urinalysis without microscopic (no culture) - Urine, Clean Catch Urinalysis, Microscopic Only - Urine, Clean Catch Other Visit Diagnoses Leg swelling asx today; symm per pt; discussed likely increased Na intake with travel; advised leg elevation andcompression stockings; unlikely due to osteo biflex FOLLOW-UP 1. Health maintenance - HAV series done; Shingrix #2 due- still waiting per patient; reviewed NEG Cologuard results - could not pursue any further colon CA screening or could repeat Cologuard in 3 yrs 2. RTC wellness after 03/07/19; fasting labs the week prior to appt (CBC, CMP, TSH, lipids, UA/micro, microalb, A1C, FT4, vit D, B12) Electronically signed by: Betsy Smith MD 09/06/2018 * Betsy Smith MD - 09/06/2018 1:45 PM EDT No further microscopic in the urine; no further evaluation needed at this time * Betsy Smith MD - 09/06/2018 1:13 AM EDTAssociated Problem(s): Vitamin D deficiency Overdue for f/u vit D level, currently taking 1000 units QD supplementation * Betsy Smith MD - 09/06/2018 1:13 AM EDTAssociated Problem(s): Hypertension BP mildly elevated today - abnormal; remains on amlo benaz 5/40 QD; rec checking BPs at home with goal < 130/80 * Betsy Smith MD - 09/06/2018 1:12 AM EDTAssociated Problem(s): Type 2 diabetes mellitus with stage 3b chronic kidney disease, without long-term current use of insulin BG control stable with a1C 5.8; on amita-met 15/850 BID; encouraged reg phys activity to decr insulinresistance, moderation in unhealthy starches/sweets; f/u A1C in 6 mos * Betsy Smith MD - 09/06/2018 1:11 AM EDTAssociated Problem(s): Microscopic hematuria needs f/u UA/micro for f/u evaluation from 03/24; if persistent, referral to urology documented in this encounter Plan of Treatment Upcoming Encounters Date Type Department Care Team (Late st Contact Info) Description 06/09/2024 3:00 PM EST Office Visit [facility] [address] [place] [phone] [place] [address] [place] [phone] documented as of this encounter Procedures Procedure Name Priority Date/Time Associated Diagnosis Comments URINALYSIS, MICROSCOPIC ONLY Routine 09/06/2018 3:07 PM EDT Microscopic hematuria URINALYSIS AND MICROSCOPIC Routine 09/06/2018 3:07 PM EDT Microscopic hematuria URINALYSIS WITHOUT MICROSCOPIC (NO CULTURE) Routine 09/06/2018 3:07 PM EDT Microscopic hematuria VITAMIN D,25-HYDROXY Routine 09/06/2018 3:01 PM EDT Vitamin D deficiency POCT GLYCOSYLATED HEMOGLOBIN (HGB A1C) Routine 09/06/2018 2:30 PM EDT Type 2 diabetes mellitus with stage 3 chronic kidney disease, without long-term current use of insulin documented in this encounter Results * Urinalysis, Microscopic Only - Urine, Clean Catch (09/06/2018 3:07 PM EDT) RBC, UA 0-2 None Seen, 0-2 /HPF 09/06/2018 11:14 PM EDT [facility] WBC, UA 0-2 None Seen, 0-2 /HPF 09/06/2018 11:14 PM EDT [facility] Bacteria, UA None Seen None Seen /HPF 09/06/2018 11:14 PM EDT [facility] Squamous Epithelial Cells, UA 0-2 None Seen, 0-2 /HPF 09/06/2018 11:14 PM EDT [facility] Hyaline Casts, UA 0-2 None Seen /LPF 09/06/2018 11:14 PM EDT [facility] Methodology Automated Microscopy 09/06/2018 11:14 PM [facility] Urine Urine specimen collection, clean catch / Unknown Collection / Unknown 09/06/2018 3:07 PM EDT 09/06/2018 3:07 PM EDT Betsy Smith MD URINE ORDERABLES Final Result [facility]
[address] [place] [address], * Urinalysis without microscopic (no culture) - Urine, Clean Catch (09/06/2018 3:07 PM EDT) Color, UA Yellow Yellow, Straw 09/06/2018 11:22 PM EDT [facility] Appearance, UA Clear Clear 09/06/2018 11:22 PM EDT [facility] pH, UA 6.0 5.0 - 8.0 09/06/2018 11:22 PM EDT [facility] Specific [place], UA 1.015 1.005 - 1.030 09/06/2018 11:22 PM EDT [facility] Glucose, UA Negative Negative 09/06/2018 11:22 PM EDT [facility] Ketones, UA Negative Negative 09/06/2018 11:22 PM EDT [facility] Bilirubin, UA Negative Negative 09/06/2018 11:22 PM EDT [facility] Blood, UA Negative Negative 09/06/2018 11:22 PM EDT [facility] Protein, UA Negative Negative 09/06/2018 11:22 PM EDT [facility] Leuk Esterase, UA Negative Negative 09/06/2018 11:22 PM EDT [facility] Nitrite, UA Negative Negative 09/06/2018 11:22 PM EDT [facility] Urobilinogen, UA 0.2 E.U./dL 0.2 - 1.0 E.U./dL 09/06/2018 11:22 PM EDT [facility] Urine Urine specimen collection, clean catch / Unknown Collection / Unknown 09/06/2018 3:07 PM EDT 09/06/2018 3:07 PM EDT us Betsy Smith MD URINE ORDERABLES Final Result Performing Organization Address [facility] Phone Number [facility]
[address] [place] [address], * Vitamin D 25 Hydroxy (09/06/2018 3:01 PM EDT) 25 Hydroxy, Vitamin D 39.0 30.0 - 100.0 ng/ml 09/06/2018 11:24 PM EDT [facility] Blood Venipuncture / Unknown 09/06/2018 3:01 PM EDT 09/06/2018 3:07 PM EDT Narrative [facility] - 09/06/2018 11:24 PM EDT Reference Range for Total Vitamin D 25(OH) Deficiency <20.0 ng/mL Insufficiency 21-29 ng/mL Sufficiency 30-100 ng/mL Toxicity >100 ng/ml us Betsy Smith MD LAB BLOOD ORDERABLES Final Resul t Performing Organization Address [facility] Co de Phone Number [facility]
[address] [place] [address], * POC Glycosylated Hemoglobin (Hb A1C) (09/06/2018 2:30 PM EDT) Hemoglobin A1C 5.8 % [facility] Blood 09/06/2018 2:30 PM EDT Betsy Smith MD POINT OF CARE TEST ORDERABLES Fi nal Result [facility]
[address] [place] [address], documented in this encounter Visit Diagnoses Diagnosis Type 2 diabetes mellitus with stage 3 chronic kidney disease, without long-term current use of insulin- Primary Hypertension Unspecified essential hypertension Microscopic hematuria Vitamin D deficiency Mixed urge and stress incontinence Mixed incontinence urge and stress (male)(female) Gastroesophageal reflux disease, esophagitis presence not specified Leg swelling Swelling of limb documented in this encounter Care Teams Development Chemist Relationship Specialty Start Date End Date Betsy Smith MD [address] [place] [address] PCP - General 02/08/15 documented as of this encounter
--- OUTSIDE RECORDS SUMMARY | 2024-03-25 02:51 | XMS_ITS | Encounter Summary ---
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 Not on file Not on fi le documented as of this encounter Miscellaneous Notes * Telephone Encounter - Vonda Vásquez - 03/10/2018 4:[address] Smith microalbuminuria ordered PT notified documented in this encounter Plan of Treatment Upcoming Encounters Date Type Department Care Team (Late st Contact Info) Description 06/09/2024 3:00 PM EST Office Visit [facility] MED[facility] [address] [place] [phone] Betsy Smith MD [address] [place] [address] documented as of this encounter Results * Microalbumin / Creatinine Urine Ratio - Urine, Clean Catch (03/13/2018 11:14 AM EST) Creatinine, Urine 69.0 Not Estab. mg/dL 03/15/2018 10:16 AM EST [facility] Microalbumin, Urine 4.5 Not Estab. ug/mL 03/15/2018 10:16 AM EST [facility] Microalbumin/Cr eatinine Ratio 6.5 0.0 - 30.0 mg/g creat 03/15/2018 10:16 AM EST [facility] Comment: ? Normal: ?0.0 - ??30.0 ? Albuminuria: ?31.0 - 300.0 ? Clinical albuminuria: ? >300.0 Urine Urine specimen collection, clean catch / Unknown Collection / Unknown 03/13/2018 11:14 AM EST 03/13/2018 11:14 AM EST Narrative [facility] - 03/15/2018 10:16 AM EST Performed at: ??01 - [facility] [address] ??[id number] Agricultural Technician: Gerardo Yanez PhD, Phone: ??[phone] Betsy Smith MD URINE ORDERABLES Final Result [facility] [address] [place] [address], documented in this encounter Visit Diagnoses Diagnosis Hematuria, unspecified type- Primary documented in this encounter Care Teams Golf Club Manager Relationship Specialty Start Date End Date Betsy Smith MD [address] [place] [address] PCP - General 02/08/15 documented as of this encounter
--- OUTSIDE RECORDS SUMMARY | 2024-03-25 02:51 | XMS_ITS | Encounter Summary ---
Author Organization 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 Office number given. * Telephone Encounter - Karuna Sagastume MA - 07/24/2017 5:46 PM EDT ----- Message from Betsy Smith MD sent at 07/24/2017 5:36 PM EDT ----- Regarding: lab results Sodium has returned to normal but kidney function slightly worsened. Continue to drink enough water daily. Avoid ibuprofen (advil) or naproxyn (aleve) documented in this encounter Plan of Treatment Upcoming Encounters Date Type Department Care Team (Late st Contact Info) Description 06/09/2024 3:00 PM EST Office Visit [facility] INTER[facility] MEDICINE [address] [place] [phone] Betsy Smith MD [address] [place] [phone] documented as of this encounter Visit Diagnoses Not on filedocumented in this encounter Care Teams Heel Room Supervisor Relationship Specialty Start Date End Date Betsy Smith MD [address] [place] [address] PCP - General 02/08/15 documented as of this encounter
--- OUTSIDE RECORDS SUMMARY | 2024-03-25 02:51 | XMS_ITS | Encounter Summary ---
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 Not on le documented as of this encounter Miscellaneous Notes * Telephone Encounter - Shaista Hastings RegSched Rep - 08/14/2019 12:14 PM EDT ERROR documented in this encounter Plan of Treatment Upcoming Encounters Date Type Department Care Team (Late st Contact Info) Description 06/09/2024 3:00 PM EST Office Visit [facility] INTERNAL MEDICINE [address] [place] [phone] Betsy Smith MD [address] [place] [phone] documented as of this encounter Visit Diagnoses Not on filedocumented in this encounter Care Teams Transmission Assembler Relationship Specialty Start Date End Date Betsy Smith MD [address] [place] [address] PCP - General 02/08/15 documented as of this encounter
--- OUTSIDE RECORDS SUMMARY | 2024-03-25 02:51 | XMS_ITS | Encounter Summary ---
Author Organization [facility] yste Address [address] [place] [address] Care Team Providers Care Medical Field Representative Name Role Phone Betsy Smith MD Primary Care Provider [phone] Encounter Details Date Type Department Care Team (Late Contact Info) Description 03/13/2018 11:15 AM EST Lab 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 [address] [place] [phone] [place] [address] [place] [phone] documented as of this encounter Procedures Procedure Name Priority Date/Time Associated Diagnosis Comments MICROALBUMIN / CREATININE URINE RATIO Routine 03/13/2018 11:14 AM EST Hematuria, unspecified type documented in this encounter Results * Microalbumin / Creatinine [...] AM EST Performed at: ??01 - [facility] [address] [facility], [place], [place] ??[id number] Quality Assurance Technician: Gerardo Yanez PhD, Phone: ??[phone] us Betsy Smith MD URINE ORDERABLES Final Result [facility] [address] [place] [address], documented in this encounter Visit Diagnoses Diagnosis Hematuria, unspecified type documented in this encounter Care Teams Medical Field Representative Relationship Specialty [place] [address] [place] [phone] PCP - General 02/08/15 documented as of this encounter
--- OUTSIDE RECORDS SUMMARY | 2024-03-25 02:51 | XMS_ITS | Encounter Summary ---
[facility] Address [address] [place] [address] Care Team Providers Care Hydrology Professor Name Role Phone Betsy Smith MD Primary Care Provider [phone] Reason for Referral * Diagnostic Imaging (Routine) - Closed Specialty Diagnoses / Procedures Referred By Mariza maher Referred To Contact Radiology Diagnoses Visit for screening mammogram Procedures Mammo Screening Digital Tomosynthesis Bilateral With CAD Betsy Smith MD Phone: tel: fax: [place] [address] Phone: tel: Referral ID Status Reason Start Date Expiration Date Visits Re quested Visits Authorized [id number] Closed 02/01/2018 02/01/2019 1 1 Reason for Visit * Diagnostic Imaging (Routine) - Closed Specialty Diagnoses / Procedures Referred By Mariza maher Referred To Contact Radiology Diagnoses Visit for screening mammogram Procedures Mammo Screening Digital Tomosynthesis Bilateral With CAD Betsy Smith MD Phone: tel: fax: [facility] [address] [place] [address] Phone: tel: Referral ID Status Reason Start Date Expiration Date Visits Re quested Visits Authorized [id number] Closed 02/01/2018 02/01/2019 1 1 Encounter Details Date Type Department Care Team (Latest Contact Info) Description 02/11/2018 11:19 AM EDT - 02/11/2018 11:59 PM EDT Hospital Encounter [facility] [address] [place] [address] Betsy Smith MD [address] [place] [address] Visit for screening mammogram Discharge [...] 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 90 capsule 3 7 03/07/20 18 KVTSKTM-[id number]-UMJANMX D PO Take 2 tablets by mouth Daily. Gives 500mg and vit D 800u daily (at 2 capsules) 03/07/20 18 ezetimibe (ZETIA) 10 MG tabletIndications:Pure hypercholesterolemia Take 1 tablet by mouth Daily. 90 tablet 3 7 03/07/20 18 fluticasone (FLONASE) 50 MCG/ACT nasal sprayIndications:Chronic seasonal allergic rhinitis, unspecified trigger 2 sprays into each nostril Every Morning. 3 bottle 3 7 03/07/20 18 loratadine (LORATADINE ALLERGY RELIEF) 10 MG disintegrating tablet Take 10 mg by mouth Daily. 03/07/20 18 NON FORMULARY Smooth Move Tea QHS 10/18/19 24 Omeprazole 20 MG Tablet Delayed Release Dispersible Take 2 tablets by mouth Daily. 10/18/19 24 pioglitazone-metFORMIN (ACTOPLUS MET) 15-850 MG per tabletIndications:Control led type 2 diabetes mellitus without complication, without long-term current use of insulin Take 1 tablet by mouth 2 (Two) Times a Day With Meals. 180 tablet 3 7 03/07/20 18 documented as of this encounter Progress Notes * Betsy Smith MD - 02/11/2018 11:59 PM EDT Stable mammo 02/12/18 ([facility]), repeat 1 yr documented in this encounter Plan of Treatment Upcoming Encounters Date Type Department Care Team (Late st Contact Info) Description 06/09/2024 3:00 PM EST Office Visit [facility] [address] [place] [phone] Betsy Smith MD [address] [place] [phone] documented as of this encounter Procedures Procedure Name Priority Date/Time Associated Diagnosis Comments MAMMO SCREENING DIGITAL TOMOSYNTHESIS BILATERAL W CAD Routine 02/11/2018 11:47 AM EDT Visit for screening mammogram documented in this encounter Results * Mammo Screening Digital Tomosynthesis Bilateral With CAD (02/11/2018 11:47 AM EDT) Anatomical Region Laterality Modality Breast N/A Mammography 02/13/2018 9:12 AM EDT Impressions 02/13/2018 9:16 AM EDT No findings suspicious for malignancy. BI-RADS CATEGORY: ??1, NEGATIVE RECOMMENDATION: Yearly mammogram, yearly clinical breast exam, and encourage self breast awareness. CAD was used. The standard false negative rate of mammography is between 10% and 25%. Complex patterns or increased breast density will markedly elevate the false negative rate of mammography. A letter, in lay terminology, with the results of this exam will be mailed to the patient. This report was finalized on 02/13/2018 9:[address] Lisa Damico MD. Narrative 02/13/2018 9:16 AM EDT ROUTINE SCREENING MAMMOGRAM HISTORY: 82-year-old female for routine screening IMAGE COMPARISON: ??Prior exams, most recently dated 08/27/2015 TECHNIQUE: Low dose full field digital breast tomosynthesis imaging was performed with 2D and 3D acquisitions consisting of bilateral CC and MLO views. ? FINDINGS: There are scattered areas of fibroglandular density. There is no worrisome mass, group of calcifications, or architectural distortion to suggest malignancy. Betsy Smith MD IMG MAMMOGRAPHY ORDERABLES Final Result documented in this encounter Visit Diagnoses Diagnosis Visit for screening mammogram documented in this encounter Care Teams Hydrology Professor Relationship Specialty Start Date End Date Betsy Smith MD [address] [place] [id number] PCP - General 02/08/15 documented as of this encounter
--- OUTSIDE RECORDS SUMMARY | 2024-03-25 02:51 | XMS_ITS | Encounter Summary ---
[facility] Address [address] [place] [address] Care Team Providers Care Open Die Inspector Name Role Phone Betsy Smith MD Primary Care Provider [phone] Reason for Referral * Diagnostic Imaging (Routine) - Closed Specialty Diagnoses / Procedures Referred By Contac t Referred To Contact Radiology Diagnoses Age-related osteoporosis without current pathological fracture Procedures DEXA Bone Density Axial Betsy Smith MD Phone: tel: fax: [address] [address] Phone: tel: Referral ID Status Reason Start Date Expiration Date Visits Re quested Visits Authorized [id number] Closed 03/10/2019 03/09/2020 1 1 Reason for Visit * Reason Comments Medicare Wellness-subsequent Diabetes Encounter Details Date Type Department Care Team (Latest Contact Info) Description 03/10/2019 1:00 PM EST Office Visit [facility] [address] [place] [phone] Betsy Smith MD [address] [place] [id number] Medicare annual wellness visit, subsequent (Primary Dx); Hypertension; Hyperlipidemia; Type 2 diabetes mellitus with stage 3 chronic kidney disease, without long-term current use of insulin; B12 deficiency; Vitamin D deficiency; CKD (chronic kidney disease), stage III; Osteoporosis; LBBB (left bundle branch block); Abnormal electrocardiogram (ECG) (EKG) ; Dysfunction of right eustachian tube; Fall, sequela Social History Tobacco Use Types Packs/Day Years [...] 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 Not on file Not on fi le documented as of this encounter Last Filed Vital Signs Vital Sign Reading Time Taken Comments Blood Pressure 132/70 03/10/2019 12:49 PM EST Pulse 69 03/10/2019 12:49 PM EST Temperature - - Respiratory Rate - - Oxygen Saturation 98% 03/10/2019 12:49 PM EST Inhaled Oxygen Concentration - - Weight 75.3 kg (166 lb) 03/10/2019 12:49 PM EST Height 166.4 cm (5' 5.5 ) 03/10/2019 12:49 PM ES T Body Mass Index 27.2 03/10/2019 12:49 PM EST documented in this encounter Progress Notes * Betsy Smith MD - 03/10/2019 2:13 PM ESTAssociated Problem(s): Dysfunction of right eustachian tube Agree with having hearing evaluated * Betsy Smith MD - 03/10/2019 1:00 PM ESTAssociated Order(s): ECG 12 Lead Post-Procedure Diagnose(s): Essential hypertension ANNUAL WELLNESS VISIT DRUG AND ALCOHOL USE no alcohol use, no tobacco use and no caffeine use DIET AND PHYSICAL ACTIVITY Diet: general Exercise: daily Exercise Details: walking MOOD DISORDER AND COGNITIVE SCREENING Depression Screening Tool Used yes - see PHQ-9; components reviewed with patient; 15-min counselingdone; reviewed indicating not feeling depressed or hopeless, not having issues with pleasure doing things, but mother noting some issues with decreased energy, overeating, as well as sleep issues. Denies any issues with concentration and focus, moving slowly or negative thoughts. States that she has been eating more snacks with her granddaughter. Spends time with family and friends and overall ishappy. Anxiety Screening Tool Used yes Mini-Cog Performed Yes 1. Tell Patient 3 Words apple table campbell 2. Administer Clock Test normal 3. Recall 3 words apple table campbell 4. Number Correct Items 3 FUNCTIONAL ABILITY AND LEVEL OF SAFETY Hearing mild hearing loss Wears Hearing Aids No Current Activities Independent none - see Funct/Cog Status Intake Fall Risk Assessment Has difficulty with walking or balance No Timed Up and Go (TUG) Test 9 sec. If >12 sec, normal ADVANCED DIRECTIVE Patient does not have an advance directive - not interested in additional information; reports that she does not have any documentation but has discussed her desires with her 4 children. She does not want to live hopelessly in her custodial. She wants comfort care but no extraordinary life-sustaining measures, including no intubation, feeding tube, shocks. She will consider filling out advanced directive and her living well. 15 min counseling. PAIN SCREENING Do you have pain right [...] use: No BMI Body mass index is 27.2 kg/m??. Patient's Body mass index is 27.2 kg/m??. BMI is above normal parameters. Recommendations include: exercise counseling and nutrition counseling. Chief Complaint Patient presents with ??? Medicare Wellness-subsequent ??? Diabetes History of Present Illness 84 y.o. woman presents for updated phys examination with wellness visit. Reports she has had 2 falls, one in which she slipped on the front porch with wet shoes. She notes a left rotator cuff tear, which improved with physical therapy. Another injury occurred when she hurt her back. Reports an MRI was done showing 4 discs that were abnormal. Notes that this caused resulting sciatica. Also reports resolution with physical therapy. She thinks this was exacerbated by straining for bowel movements. States that she had visits with Dr.Robert To and after stopping a particular medicine, suddenly symptoms resolved. Reports that she has to walk upstairs always leading with the right leg. She is now also having to push up to get out of seated position. Not checking sugars consistently but notes 2-hour postprandial BGs around 120s. Review of Systems Denies headaches, visual changes, CP, palpitations, SOB, cough, abd pain, n/v/d, difficulty with urination, numbness/tingling, mood changes, lightheadedness, hearing changes, rashes. Notes some fullness in the right ear and plans to get hearing checked. Sister has hearing aids. ROS (+) for fall as above. ROS(+) for leg weakness, going up stairs as well as arising from seated position. Denies vaginal discharge or bleeding (no periods) or breast concerns. All other ROS reviewed and negative. [facility] The following portions of the patient's history were reviewed and updated as appropriate: allergies, current medications, past family history, past medical history, past social history, past surgicalhistory and problem list. Current Outpatient Medications: ??? amLODIPine-benazepril (LOTREL) 5-40 MG QD ??? cholecalciferol (VITAMIN D3) 1000 units QD ??? ezetimibe (ZETIA) 10 MG tablet, QD ??? NON FORMULARY, Smooth Move Tea QHS ??? omeprazole (priLOSEC) 40 MG capsule, QD ??? pioglitazone-metFORMIN (ACTOPLUS MET) 15-850 MG BID ??? vitamin B-12 (CYANOCOBALAMIN) 1000 MCG QD VITALS: BP 132/70 Pulse 69 Ht 166.4 cm (65.5 ) Wt 75.3 kg (166 lb) SpO2 98% BMI 27.20 kg/m?? Physical Exam Constitutional: She is oriented to person, place, and time. She appears well- developed and well-nourished. HENT: Head: Normocephalic. Left Ear: External ear normal. Nose: Nose normal. Mouth/Throat: Oropharynx is clear and moist and mucous membranes are normal. No oropharyngeal exudate. Fluid behind bilateral TMs; mild cerumen right auditory canal, not obstructive Eyes: Conjunctivae and EOM are normal. Pupils are equal, round, and reactive to light. Neck: Normal range of motion. Neck supple. [...] no tenderness. Genitourinary: Genitourinary Comments: Breast exam diffuse fibrocystic changes bilaterally; otherwise unremarkablewithout masses, skin changes, nipple discharge, or axillary adenopathy. Musculoskeletal: Normal range of motion. She exhibits no edema. Pushes off the table to get to standing position Lymphadenopathy: She has no cervical adenopathy. Neurological: She is alert and oriented to person, place, and time. She displays normal reflexes. No cranial nerve deficit. Skin: Skin is warm and dry. No rash noted. Psychiatric: She has a normal mood and affect. Her behavior is normal. Nursing note and vitals reviewed. LABS Stable CBC, CMP (FG 93), TFTs, UA, lipids (TC 172, TG 47, HDL 87, LDL 76), B12 818, vit D 39 [id number] 6.3 09/22 POC Glycosylated Hemoglobin (Hb A1C) Result Value Ref Range Hemoglobin A1C 5.8 % ECG 12 Lead Date/Time: 03/10/2019 1:39 PM Performed by: Betsy Smith MD Authorized by: Betsy Smith MD Comparison: compared with previous ECG from 03/07/2018 Rhythm: sinus rhythm Rate: normal BPM: 69 Conduction: left bundle branch block Conduction comments: NEW ST Segments: ST segments normal T Waves: T waves normal QRS axis: normal Other findings: poor R wave progression Clinical impression: abnormal EKG ASSESSMENT/PLAN Problem List Items Addressed This Visit Vitamin D deficiency Still need vit D level on 1000 units QD supplementation Type 2 diabetes mellitus with stage 3 chronic kidney disease, without long-term current use of insulin ([facility]) BG control mildly worsened with A1C 6.3 (was 5.8 in 09/22): remains on amita-met 15/850mg BID; encouraged reg phys activity to decr insulin resistance, moderation in unhealthy starches/sweets; f/u A1C in 3 mos Relevant Medications pioglitazone (ACTOS) 30 MG tablet metFORMIN ER (GLUCOPHAGE-XR) 750 MG 24 hr tablet Osteoporosis Calcium and vitamin D supplementation with weight-bearing exercise; DEXA ordered Relevant Orders DEXA Bone Density Axial Medicare annual wellness visit, subsequent - Primary Health maintenance - flu vacc given today; Prevnar 02/18; PVX 03/16; Tdap 10/15 (Td due 2020), Zostavax 09/12, Shingrix and HAV done; mammo pending 03/18/19; no further Paps unelss abnlities; DEXA ordered (last 03/22); colonosc 2007, no further per pt; NEG cologuard 03/25/18; eye exam with Dr. Duque to be updated per patient; dental exam to be updated -getting new insurance; (+)seat belt use Consultants: Patient Care Team: Betsy Smith MD as PCP - General Betsy Smith MD as PCP - Claims Attributed Ed Duque MD as Consulting Physician (Ophthalmology) Julito Shen MD as Consulting Physician (Gastroenterology) LBBB (left bundle branch block) Relevant Orders Stress Test With Myocardial Perfusion One Day Hypertension BP and electrolytes stable on amlo benaz 5/40 QD Relevant Medications amLODIPine-benazepril (LOTREL) 5-40 MG per capsule Hyperlipidemia Stable lipids, LDL 76, on zetia 10mg QD #90, 3RF Relevant Medications ezetimibe (ZETIA) 10 MG tablet Dysfunction of right eustachian tube (Chronic) Agree with having hearing evaluated CKD (chronic kidney disease), stage III ([facility]) Renal function stable/improved with Cr 1.06, GFR 50; discussed importance of good BG and BP controlas well as avoidance of NSAIDs B12 deficiency Still needs B12 level, otilio while on metformin; on 1000mcg QD supplementation Other Visit Diagnoses Abnormal electrocardiogram (ECG) (EKG) Relevant Orders Stress Test With Myocardial Perfusion One Day Fall, sequela LBP and L. RTC pain resolved; fall precautions; rec leg/buttock strengthening exercises - consider going back to PT FOLLOW-UP 1. Nuclear stress test ordered for new LBBB 2. RTC 3 mos with A1C Electronically signed by: Betsy Smith MD 03/10/2019 * Betsy Smith MD - 03/08/2019 2:49 AM EDTAssociated Problem(s): Hyperlipidemia Stable lipids, LDL 76, on zetia 10mg QD #90, 3RF * Betsy Smith MD - 03/08/2019 2:49 AM EDTAssociated Problem(s): Hypertension BP and electrolytes stable on amlo benaz 5/40 QD * Betsy Smith MD - 03/08/2019 2:48 AM EDTAssociated Problem(s): Vitamin D deficiency Still need vit D level on 1000 units QD supplementation * Betsy Smith MD - 03/08/2019 2:48 AM EDTAssociated Problem(s): B12 deficiency Still needs B12 level, otilio while on metformin; on 1000mcg QD supplementation * Betsy Smith MD - 03/08/2019 2:47 AM EDTAssociated Problem(s): Type 2 diabetes mellitus with stage 3b chronic kidney disease, without long-term current use of insulin BG control mildly worsened with A1C 6.3 (was 5.8 in 09/22): remains on amita-met 15/850mg BID; encouraged reg phys activity to decr insulin resistance, moderation in unhealthy starches/sweets; f/u A1C in 3 mos * Betsy Smith MD - 03/08/2019 2:47 AM EDTAssociated Problem(s): Osteoporosis Calcium and vitamin D supplementation with weight-bearing exercise; DEXA ordered * Betys Smith MD - 03/08/2019 2:46 AM EDTAssociated Problem(s): CKD (chronic kidney disease), stage III Renal function stable/improved with Cr 1.06, GFR 50; discussed importance of good BG and BP controlas well as avoidance of NSAIDs * Betsy Smith MD - 03/08/2019 2:45 AM EDTAssociated Problem(s): Medicare annual wellness visit, subsequent [...] Visit [facility] [address] [place] [address] Betsy Smith MD [address] [place] [address] documented as of this encounter Procedures Procedure Name Priority Date/Time Associated Diagnosis Comments ECG 12-LEAD Routine 03/10/2019 1:00 PM EST Hypertension documented in this encounter Results * DEXA Bone Density Axial (06/30/2019 1:37 PM EST) Anatomical Region Laterality Modality Wrist, Hip, L-spine N/A Other 06/30/2019 3:22 PM EST Impressions 07/04/2019 9:59 AM EST Osteoporosis of the one third left forearm. Osteopenia of the L1-L4 vertebrae, left femoral neck, and total left hip. The ten year fracture risk assessment is calculated at 18% for major systemic osteoporotic fracture and 4.0% for a hip fracture. Less than 3% [...] fall-prevention measurements. The National Osteoporosis Foundation recommends (http://www.nof.org/hcp/practice/kdrynjon-hea-wtvcdpsd-guidelines/clinic ans-guide) that FDA-approved medical therapies be considered [...] clinical indication. INTERVAL CHANGE: ?? There was a decrease in bone mineral density of the L1-L4 vertebrae by 2.4%, total left hip by 1.9%, and one third left forearm by 15.8% when compared to previous study performed on 03/09/2016. ?? At this facility, the least significant change in the BMD at the left hip with 95% confidence is 0.771507 gm/cm2 at the hip and 0.634016 g/cm2 at the lumbar spine. This report was finalized on 07/04/2019 9:[address] Glen Aragon MD. Narrative 07/04/2019 9:59 AM EST DUAL-ENERGY X-RAY ABSORPTIOMETRY (DXA) INDICATION: ??Postmenopausal, osteoporosis, prior fracture COMPARISON: Previous bone mineral density exam performed on 03/09/2016 PROCEDURE: A DXA scan was performed using [...] BMD measured in the L1-L4 region is 0.906 g/cm2. ??The average T-score is -1.3. ??The Z-score is 1.5. Total Hip: ??The BMD measured at the left total proximal femur is 0.701 g/cm2. ??The T-score is -2.0. ??The Z-score is 0.2. Femoral Neck: ??The BMD measured at the left femoral neck is 0.698 g/cm2. The T-score is -1.4. ??The Z-score is 1.0. 1/3 Radius: ??The BMD measured at the left one-third radius is 0.371 g/cm2. ??The T-score is -5.4. ??The Z-score is -2.0. Procedure Note Gemma Starr PA - 07/04/2019 DUAL-ENERGY X-RAY ABSORPTIOMETRY (DXA) INDICATION: Postmenopausal, osteoporosis, prior fracture COMPARISON: Previous bone mineral density exam performed on 03/09/2016 PROCEDURE: A DXA scan was performed using [...] BMD measured in the L1-L4 region is 0.906 g/cm2. The average T-score is -1.3. The Z-score is 1.5. Total Hip: The BMD measured at the left total proximal femur is 0.701 g/cm2. The T-score is -2.0. The Z-score is 0.2. Femoral Neck: The BMD measured at the left femoral neck is 0.698 g/cm2. The T-score is -1.4. The Z-score is 1.0. 1/3 Radius: The BMD measured at the left one-third radius is 0.371 g/cm2. The T-score is -5.4. The Z-score is -2.0. IMPRESSION: Osteoporosis of the one third left forearm. Osteopenia of the L1-L4 vertebrae, left femoral neck, and total left hip. The ten year fracture risk assessment is calculated at 18% for major systemic osteoporotic fracture and 4.0% for a hip fracture. Less than 3% [...] fall-prevention measurements. The National Osteoporosis Foundation recommends (http://www.nof.org/hcp/practice/scndsnay-dhi-dmjokysk-guidelines/clinic ans-guide) that FDA-approved medical therapies be considered [...] new clinical indication. INTERVAL CHANGE: There was a decrease in bone mineral density of the L1-L4 vertebrae by 2.4%, total left hip by 1.9%, and one third left forearm by 15.8% when compared to previous study performed on 03/09/2016. At this facility, the least significant change in the BMD at the left hip with 95% confidence is 0.148468 gm/cm2 at the hip and 0.312679 g/cm2 at the lumbar spine. This report was finalized on 07/04/2019 9:[address] Glen Aragon MD. us Betsy Smith MD IMG DXA ORDERABLES Final Result * ECG 12-LEAD (03/10/2019 1:00 PM EST) Narrative Alea Christianson - 03/10/2019 1:00 PM EST Betsy Smith MD ? 03/10/2019 ??2:15 PM ECG 12 Lead Date/Time: 03/10/2019 1:39 PM Performed by: Betsy Smith MD Authorized by: Betsy Smith MD Comparison: compared with previous ECG from 03/07/2018 Rhythm: sinus rhythm Rate: normal BPM: 69 Conduction: left bundle branch block Conduction comments: NEW ST Segments: ST segments normal T Waves: T waves normal QRS axis: normal Other findings: poor R wave progression Clinical impression: abnormal EKG Procedure Note Betsy Smith MD - 03/10/2019 1:00 PM EST ANNUAL WELLNESS VISIT DRUG AND ALCOHOL USE no alcohol use, no tobacco use and no caffeine use DIET AND PHYSICAL ACTIVITY Diet: general Exercise: daily Exercise Details: walking MOOD DISORDER AND COGNITIVE SCREENING Depression Screening Tool Used yes - see PHQ-9; components reviewed withpatient; 15-min counseling done; reviewed indicating not feeling depressedor hopeless, not having issues with pleasure doing things, but mothernoting some issues with decreased energy, overeating, as well as sleepissues. Denies any issues with concentration and focus, moving slowly ornegative thoughts. States that she has been eating more snacks with hergranddaughter. Spends time with family and friends and overall ishappy. Anxiety Screening Tool Used yes Mini-Cog Performed Yes 1. Tell Patient 3 Words apple table campbell 2. Administer Clock Test normal 3. Recall 3 words apple table campbell 4. Number Correct Items 3 FUNCTIONAL ABILITY AND LEVEL OF SAFETY Hearing mild hearing loss Wears Hearing Aids No Current Activities Independent none - see Funct/Cog Status Intake Fall Risk Assessment Has difficulty with walking or balance No Timed Up and Go (TUG) Test 9 sec. If >12 sec, normal ADVANCED DIRECTIVE Patient does not have an advance directive - notinterested in additional information; reports that she does not have anydocumentation but has discussed her desires with her 4 children. She doesnot want to live hopelessly in her custodial. She wants comfort carebut no extraordinary life-sustaining measures, including no intubation,feeding tube, shocks. She will consider filling out advanced directiveand her living well. 15 min counseling. PAIN SCREENING Do you have pain right now? no If so, 1-10 scale: 0 Intermittent Do you have pain every day? No Probable chronic pain: No Recent Hospitalizations: No recent hospitalization(s).. MEDICATION REVIEW - updated and reviewed (see Medication List). - reviewed for potentially harmful drug-disease [facility]. - reviewed for high risk medications in the elderly. - aspirin use: No BMI Body mass index is 27.2 kg/m??. Patient's Body mass index is 27.2 kg/m??. BMI is above normal parameters.Recommendations include: exercise counseling and nutrition counseling. Chief Complaint Patient presents with ? ? Medicare Wellness-subsequent ? ? Diabetes History of Present Illness 84 y.o. [facility] Reports she has had 2 falls, one in which she slipped onthe front porch with wet shoes. She notes a left rotator cuff tear, whichimproved with physical therapy. Another injury occurred when she hurt her back. Reports an MRI was doneshowing 4 discs that were abnormal. Notes that this caused resultingsciatica. Also reports resolution with physical therapy. She thinks thiswas exacerbated by straining for bowel movements. States that she hadvisits with Dr. Karan To and after stopping a particular medicine,suddenly symptoms resolved. Reports that she has to walk upstairs always leading with the right leg.She is now also having to push up to get out of seated position. Not checking sugars consistently but notes 2-hour postprandial BGs [id number]. Review of Systems Denies headaches, visual changes, CP, palpitations, SOB, cough, abd pain,n/v/d, difficulty with urination, numbness/tingling, mood changes,lightheadedness, hearing changes, rashes. Notes some fullness in the right ear and plans to get hearing checked.Sister has hearing aids. ROS (+) for fall as above. ROS(+) for leg weakness, going up stairs aswell as arising from seated position. Denies vaginal discharge or bleeding (no periods) or breast concerns. All other ROS reviewed and negative. [facility] The following portions of the patient's history were reviewed and updatedas appropriate: allergies, current medications, past family history, pastmedical history, past social history, past surgical history and problemlist. Current Outpatient Medications: ? ? amLODIPine-benazepril (LOTREL) 5-40 MG QD ? ? cholecalciferol (VITAMIN D3) 1000 units QD ? ? ezetimibe (ZETIA) 10 MG tablet, QD ? ? NON FORMULARY, Smooth Move Tea QHS ? ? omeprazole (priLOSEC) 40 MG capsule, QD ? ? pioglitazone-metFORMIN (ACTOPLUS MET) 15-850 MG BID ? ? vitamin B-12 (CYANOCOBALAMIN) 1000 MCG QD VITALS: BP 132/70 Pulse 69 Ht 166.4 cm (65.5 ) Wt 75.3 kg (166 lb) SpO2 98% BMI 27.20 kg/m?? Physical Exam Constitutional: She is oriented to person, place, and time. She appearswell- developed and well-nourished. HENT: Head: Normocephalic. Left Ear: External ear normal. Nose: Nose normal. Mouth/Throat: Oropharynx is clear and moist and mucous membranes arenormal. No oropharyngeal exudate. Fluid behind bilateral TMs; mild cerumen right auditory canal, notobstructive Eyes: Conjunctivae and EOM are normal. Pupils are equal, round, andreactive to light. Neck: Normal range of motion. Neck supple. Carotid bruit is not present(bilaterally). No thyromegaly present. Cardiovascular: Normal rate, regular rhythm and normal heart sounds. Pulmonary/Chest: Effort normal and breath sounds normal. No respiratorydistress. She has no wheezes. She has no rales. Abdominal: Soft. Bowel sounds are normal. She exhibits no distension andno mass. There is no hepatosplenomegaly. There is no tenderness. Genitourinary: Genitourinary Comments: Breast exam diffuse fibrocystic changesbilaterally; otherwise unremarkable without masses, skin changes, nippledischarge, or axillary adenopathy. Musculoskeletal: Normal range of motion. She exhibits no edema. Pushes off the table to get to standing position Lymphadenopathy: She has no cervical adenopathy. Neurological: She is alert and oriented to person, place, and time. Shedisplays normal reflexes. No cranial nerve deficit. Skin: Skin is warm and dry. No rash noted. Psychiatric: She has a normal mood and affect. Her behavior is normal. Nursing note and vitals reviewed. LABS Stable CBC, CMP (FG 93), TFTs, UA, lipids (TC 172, TG 47, HDL 87, LDL 76),B12 818, vit D 39 except A1C 6.3 09/22 POC Glycosylated Hemoglobin (Hb A1C) Result Value Ref Range Hemoglobin A1C 5.8 % ECG 12 Lead Date/Time: 03/10/2019 1:39 PM Performed by: Betsy Smith MD Authorized by: Betsy Smith MD Comparison: compared with previous ECG from 03/07/2018 Rhythm: sinus rhythm Rate: normal BPM: 69 Conduction: left bundle branch block Conduction comments: NEW ST Segments: ST segments normal T Waves: T waves normal QRS axis: normal Other findings: poor R wave progression Clinical impression: abnormal EKG ASSESSMENT/PLAN Problem List Items Addressed This Visit Vitamin D deficiency Still need vit D level on 1000 units QD supplementation Type 2 diabetes mellitus with stage 3 chronic kidney disease, withoutlong-term current use of insulin ([facility]) BG control mildly worsened with A1C 6.3 (was 5.8 in 09/22): remains onpio-met 15/850mg BID; encouraged reg phys activity to decr insulinresistance, moderation in unhealthy starches/sweets; f/u A1C in 3 mos Relevant Medications pioglitazone (ACTOS) 30 MG tablet metFORMIN ER (GLUCOPHAGE-XR) 750 MG 24 hr tablet Osteoporosis Calcium and vitamin D supplementation with weight-bearing exercise; DEXAordered Relevant Orders DEXA Bone Density Axial Medicare annual wellness visit, subsequent - Primary Health maintenance - flu vacc given today; Prevnar 02/18; PVX 03/16;Tdap 10/15 (Td due 2020), Zostavax 09/12, Shingrix and HAV done; mammopending 03/18/19; no further Paps unelss abnlities; DEXA ordered (last03/22); colonosc 2007, no further per pt; NEG cologuard 03/25/18; eye examwith Dr. Duque to be updated per patient; dental exam to be updated-getting new insurance; (+)seat belt use Consultants: Patient Care Team: Betsy Smith MD as PCP - General Betsy Smith MD as PCP - Claims Attributed Ed Duque MD as Consulting Physician (Ophthalmology) Julito Shen MD as Consulting Physician(Gastroenterology) LBBB (left bundle branch block) Relevant Orders Stress Test With Myocardial Perfusion One Day Hypertension BP and electrolytes stable on amlo benaz 5/40 QD Relevant Medications amLODIPine-benazepril (LOTREL) 5-40 MG per capsule Hyperlipidemia Stable lipids, LDL 76, on zetia 10mg QD #90, 3RF Relevant Medications ezetimibe (ZETIA) 10 MG tablet Dysfunction of right eustachian tube (Chronic) Agree with having hearing evaluated CKD (chronic kidney disease), stage III ([facility]) Renal function stable/improved with Cr 1.06, GFR 50; discussedimportance of good BG and BP control as well as avoidance of NSAIDs B12 deficiency Still needs B12 level, otilio while on metformin; on 1000mcg QDsupplementation Other Visit Diagnoses Abnormal electrocardiogram (ECG) (EKG) Relevant Orders Stress Test With Myocardial Perfusion One Day Fall, sequela LBP and L. RTC pain resolved; fall precautions; rec leg/buttockstrengthening exercises - consider going back to PT FOLLOW-UP 1. Nuclear stress test ordered for new LBBB 2. RTC 3 mos with A1C Electronically signed by: Betsy Smith MD 03/10/2019 us Betsy Smith MD ECG ORDERABLES Final Result documented in this encounter Visit Diagnoses Diagnosis Medicare annual wellness visit, subsequent- Primary Hypertension Unspecified essential hypertension Hyperlipidemia Pure hypercholesterolemia Type 2 diabetes mellitus with stage 3 chronic kidney disease, without long-term current use of insulin B12 deficiency Vitamin D deficiency CKD (chronic kidney disease), stage III Chronic kidney disease, Stage III (moderate) Osteoporosis LBBB (left bundle branch block) Other left bundle branch block Abnormal electrocardiogram (ECG) (EKG) Dysfunction of right eustachian tube Fall, sequela Osteoporosis documented in this encounter Care Teams Open Die Inspector Relationship Specialty Start Date End Date Betsy Smith MD [address] [place] [address] PCP - General 02/08/15 documented as of this encounter
--- OUTSIDE RECORDS SUMMARY | 2024-03-25 02:51 | XMS_ITS | Encounter Summary ---
Author Organization [facility] ystem Address [address] [place] [address] Care Team Providers Care Stripping And Booking Machine Operator Name Role Phone Betsy Smith MD Primary Care Provider [phone] Encounter Details Date Type Department Care Team (Late st Contact Info) Description 09/12/2018 Telephone [facility] [address] [place] [phone] [place] [address] [place] [address] Social History Tobacco Use Types Packs/Day [...] encounter Miscellaneous Notes * Telephone Encounter - Kirk Martin RegSched Rep - 09/12/2018 9:24 AM EDT PATIENT WAS RETURNING CALL ABOUT LABS documented in this encounter Plan of Treatment Upcoming Encounters Date Type Department Care Team (Late st Contact Info) Description 06/09/2024 3:00 PM EST Office Visit [facility] [address] [place] [phone] [place] [address] [place] [phone] documented as of this encounter Visit Diagnoses Not on filedocumented in this encounter Care Teams Stripping And Booking Machine Operator Relationship Specialty Start Date End Date Betsy Smith MD [address] [place] [address] PCP - General 02/08/15 documented as of this encounter
--- OUTSIDE RECORDS SUMMARY | 2024-03-25 02:51 | XMS_ITS | Encounter Summary ---
Author Organization [facility] ystem Address [address] [place] [address] Care Team Providers Care Mails Supervisor Name Role Phone Betsy Smith MD Primary Care Provider [phone] Reason for Visit * Reason Comments Diabetes Encounter Details Date Type Department Care Team (Late st Contact Info) Description 06/27/2019 1:45 PM EST Office Visit [facility] [address] [place] [phone] [place] [address] [place] [address] Type 2 diabetes mellitus with stage 3 chronic kidney disease, without long-term current use of insulin (Primary Dx); Hypertension; Sensorineural hearing loss (SNHL) of both ears; Bilateral impacted cerumen; Abnormal sensation in right ear Social History Tobacco Use Types Packs/Day Years [...] 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 on file Not on fi le documented as of this encounter Last Filed Vital Signs Vital Sign Reading Time Taken Comments Blood Pressure 122/68 06/27/2019 1:29 PM EST Pulse 70 06/27/2019 1:29 PM EST Temperature - - Respiratory Rate - - Oxygen Saturation 98% 06/27/2019 1:29 PM EST Inhaled Oxygen Concentration - - Weight 74.4 kg (164 lb) 06/27/2019 1:29 PM EST Height 166.4 cm (5' 5.5 ) 06/27/2019 1:29 PM EST Body Mass Index 26.88 06/27/2019 1:29 PM EST documented in this encounter Progress Notes * Betsy Smith MD - 06/28/2019 1:24 AM ESTAssociated Problem(s): Sensorineural hearing loss (SNHL) of both ears Absent hearing to finger rubbing bilaterally; recommend ENT follow-up for audiogram testing and consideration of hearing aids * Betsy Smith MD - 06/27/2019 1:45 PM EST Chief Complaint Patient presents with ??? Diabetes History of Present Illness 84 y.o. woman presents for diabetes follow-up. Also complains of some right ear discomfort and wonders whether she needs to see a specialist. Holds her nose and tries to blow out but feels that she just cannot pop her right ear. Has some hearing loss. No pain in the left ear. Has not updated eye exam but has plans to do so within the next month. Not checking BG's but denies any symptoms of low blood sugars. Review of Systems ROS (+) for mild hearing loss and right ear discomfort, pressure, unable to pop it. Denies nasal congestion, sore throat, cough, headaches. Denies CP, palpitations, SOB, falls. All other ROS reviewedand negative. PMSFH The following portions of the patient's history were reviewed and updated as appropriate: allergies, current medications, past family history, past medical history, past social history, past surgicalhistory and problem list. Current Outpatient Medications: ??? amLODIPine-benazepril (LOTREL) 5-40 MG QD ??? cholecalciferol (VITAMIN D3) 1000 units QD ??? ezetimibe (ZETIA) 10 MG QD ??? metFORMIN ER (GLUCOPHAGE-XR) 750 MG 2 QD ??? Smooth Move Tea QHS ??? omeprazole (priLOSEC) 40 MG QD ??? pioglitazone (ACTOS) 30 MG QD ??? vitamin B-12 (CYANOCOBALAMIN) 1000 MCG QD VITALS: BP 122/68 Pulse 70 Ht 166.4 cm (65.5 ) Wt 74.4 kg (164 lb) SpO2 98% BMI 26.88 kg/m?? Physical Exam Constitutional: She is oriented to person, place, and time. She appears well- developed and well-nourished. HENT: Right auditory canal occluded by cerumen; left auditory canal mildly occluded by cerumen; absent hearing to finger rubbing bilaterally Eyes: Conjunctivae and EOM are normal. Cardiovascular: Normal rate, regular rhythm and normal heart sounds. Pulmonary/Chest: Effort normal and breath sounds normal. No respiratory distress. She has no wheezes. She has no rales. Abdominal: Soft. Bowel sounds are normal. Musculoskeletal: Normal gait Neurological: She is alert and oriented to person, place, and time. Psychiatric: She has a normal mood and affect. Her behavior is normal. Nursing note and vitals reviewed. LABS Results for orders placed or performed in visit on 06/27/19 POC Glycosylated Hemoglobin (Hb A1C) Result Value Ref Range Hemoglobin A1C 6.0 % 03/25 A1c 6.3 ASSESSMENT/PLAN Problem List Items Addressed This Visit Type 2 diabetes mellitus with stage 3 chronic kidney disease, without long-term current use of insulin ([facility]) - Primary BG control improved with A1C 0.0; remains on metformin ER 750 mg 2 tabs QD; encouraged reg phys activity to decr insulin resistance, moderation in unhealthy starches/sweets; reminder needs annual eyeexam; f/u A1C in 6 mos Relevant Orders POC Glycosylated Hemoglobin (Hb A1C) (Completed) Sensorineural hearing loss (SNHL) of both ears Absent hearing to finger rubbing bilaterally; recommend ENT follow-up for audiogram testing and consideration of hearing aids Hypertension BP stable 122/68 on amlo benaz 5/40 QD Other Visit Diagnoses Bilateral impacted cerumen R>L s/p bilat lavage with water pick and instrumentation with ear scoop; tolerated procedure well, no complications Abnormal sensation in right ear s/p bilat ar lavage; retry autoinsufflation for likely eust tube dysfxn; rec ENT eval for hearing loss; call back for ENT referral if sxs no better FOLLOW-UP 1. Health maintenance - flu vacc 03/25; DEXA pending 06/30/19 2. RTC 6 mos with A1C Electronically signed by: Betsy Smith MD, FACP 06/27/2019 * Betsy Smith MD - 06/27/2019 1:05 AM ESTAssociated Problem(s): Hypertension BP stable 122/68 on amlo benaz 5/40 QD * Betsy Smith MD - 06/27/2019 1:04 AM ESTAssociated Problem(s): Type 2 diabetes mellitus with stage 3b chronic kidney disease, without long-term current use of insulin BG control improved with A1C 0.0; remains on metformin ER 750 mg 2 tabs QD; encouraged reg phys activity to decr insulin resistance, moderation in unhealthy starches/sweets; reminder needs annual eyeexam; f/u A1C in 6 mos documented in this encounter Plan of Treatment Upcoming Encounters Date Type Department Care Team (Late st Contact Info) Description 06/09/2024 3:00 PM EST Office Visit [facility] [address] [place] [phone] Betsy Smith MD [address] [place] [address] documented as of this encounter Procedures Procedure Name Priority Date/Time Associated Diagnosis Comments POCT GLYCOSYLATED HEMOGLOBIN (HGB A1C) Routine 06/27/2019 1:38 PM EST Type 2 diabetes mellitus with stage 3 chronic kidney disease, without long-term current use of insulin documented in this encounter Results * POC Glycosylated Hemoglobin (Hb A1C) (06/27/2019 1:38 PM EST) Hemoglobin A1C 6.0 % [facility] Blood 06/27/2019 1:38 PM EST us Betsy Smith MD POINT OF CARE TEST ORDERABLES Fi nal Result [facility]
[address] [place] [address], documented in this encounter Visit Diagnoses Diagnosis Type 2 diabetes mellitus with stage 3 chronic kidney disease, without long-term current use of insulin- Primary Hypertension Unspecified essential hypertension Sensorineural hearing loss (SNHL) of both ears Bilateral impacted cerumen Impacted cerumen Abnormal sensation in right ear documented in this encounter Care Teams Mails Supervisor Relationship Specialty Start Date End Date Betsy Smith MD [address] [place] [address] PCP - General 02/08/15 documented as of this encounter
--- OUTSIDE RECORDS SUMMARY | 2024-03-25 02:51 | XMS_ITS | Encounter Summary ---
[facility] Organization [facility] Address [address] [place] [address] Care Team Providers Care Soft Tile Setter Name Role Phone Betsy Smith MD Primary Care Provider [phone] Reason for Visit * Reason Onset Date Comments METFORMIN, OMEPRAZOLE 11/26/2017 Encounter Details Date Type Department Care Team (Late st Contact Info) Description 11/26/2017 Telephone [facility] [address] [place] [phone] [place] [address] [place] [address] METFORMIN, OMEPRAZOLE Social History Tobacco Use Types Packs/Day Years [...] 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 Smith. Office number given to Pt if she wants to call and schedule apt * Telephone Encounter - Betsy Smith MD - 11/26/2017 4:32 PM EDT It is unlikely these medications but she needs OV if those sxs are persistent (note she was taken off of HCTZ) * Telephone Encounter - Karuna Sagastume MA - 11/26/2017 2:03 PM EDT Please advise * Telephone Encounter - Lourdes Eldridge - 11/26/2017 1:58 PM EDT PATIENT REPORTS THAT SHE HAS RECEIVED NOTIFICATION FROM [facility] REGARDING METFORMIN AND OMEPRAZOLE. IT STATED THAT IF EXPERIENCING SYMPTOMS TO CONTACT PCP TO HAVE MEDICATION CHANGED. SHE IS EXPERIENCING COLD HANDS, FEET, LEG AND FEET SWELLING, DIZZINESS, FATIGUE AND STOMACH PAIN. SHE IS CONCERNED THAT THESE MEDICATIONS MAY BE THE CAUSE OF THESE SYMPTOMS. SHE STATES THE SYMPTOMS HAVE BEEN GOING ON SINCE DR SMITH TOOK HER OFF HER BP MEDICATION SEVERAL MONTHS AGO. CALL BACK [phone] OK TO LEAVE , SHE WILL BE NEXT DOOR CARING FOR DAUGHTER THAT JUST HAD SURGERY. documented in this encounter Plan of Treatment Upcoming Encounters Date Type Department Care Team (Late st Contact Info) Description 06/09/2024 3:00 PM EST Office Visit [facility] [address] [place] [phone] Betsy Smith MD [address] [place] [address] documented as of this encounter Visit Diagnoses Not on filedocumented in this encounter Care Teams Soft Tile Setter Relationship Specialty [place] [address] [place] [address] PCP - General 02/08/15 documented as of this encounter
--- OUTSIDE RECORDS SUMMARY | 2024-03-25 02:51 | XMS_ITS | Encounter Summary ---
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 Pt verbalized understanding, verified mailing address and placed in outgoing mail. * Telephone Encounter - Betsy Smith MD - 07/11/2017 11:15 PM EST Na level still low but improved; repeat BMP (nonfasting) a few days before your next appt (pls mailher order - order previously escribed) * Telephone Encounter - Selina Mendez - 07/11/2017 11:33 AM EST PATIENT IS IN AND OUT A LOT CAN WE LEAVE HER A MESSAGE ON HER PHONE. ALSO, IF YOU ARE WANTING LABS DRAW BEFORE HER APPOINTMENT AT THE END OF THE MONTH CAN YOU MAIL THEMTO HER SO SHE CAN GET THEM DOWN CLOSER TO HOME. * Telephone Encounter - Karuna Sagastume MA - 07/10/2017 11:17 AM EST Please advise, these labs were in the folder yesterday * Telephone Encounter - Becca Rothman - 07/10/2017 11:11 AM EST PT CALLED TO SEE IF WE RECEIVED HER LABS FROM [facility] 07/04/17 IS WHEN SHE HAD THEM DONE SHE HAS AN APPT TO SEE YOU ON 07/27/17 SHE WANTED TO KNOW IF SHE NEEDS TO HAVE MORE LABS DONE BEFOREAPPT PLEASE CALL [phone] documented in this encounter Plan of Treatment Upcoming Encounters Date Type Department Care Team (Late st Contact Info) Description 06/09/2024 3:00 PM EST Office Visit [facility] [address] [place] [phone] [place] [address] [place] [address] documented as of this encounter Visit Diagnoses Not on filedocumented in this encounter Care Teams Basin Cleaner Relationship Specialty Start Date End Date Betsy Smith MD [address] [place] [address] PCP - General 02/08/15 documented as of this encounter
--- OUTSIDE RECORDS SUMMARY | 2024-03-25 02:51 | XMS_ITS | Encounter Summary ---
Author Organization [facility] ystem Address [address] [place] [address] Care Team Providers Care Commissions Manager Name Role Phone Betsy Smith MD Primary Care Provider [phone] Reason for Visit * Reason Comments Osteoporosis Med question Encounter Details Date Type Department Care Team (Late st Contact Info) Description 07/11/2019 12:45 PM EST Office Visit [facility] [address] [place] [phone] Betsy Smith MD [address] [place] [address] Osteoporosis (Primary Dx); Hypertension; Type 2 diabetes mellitus with stage 3 chronic kidney disease, without long-term current use of insulin; Hyperlipidemia Social History Tobacco Use Types Packs/Day [...] 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 Osteoporosis ??? Med question History of Present Illness 84 y.o. woman presents for further discussion of worsened DEXA showing osteoporosis. Has never taken med for osteoporosis. Does not take Ca supplement and does not eat a lot of dairy. Remains on vit D supplement. States she signed up for program Syed Hoskins was advertising and now insurance will not cover her meds (amlo benaz and zetia) at [facility]. Note h/o shoulder fx. Review of Systems Denies falls, injuries, imbalance. Denies CP, palpitations, SOB. Denies sxs of low BGs. All other ROS reviewed and negative. PMSFH The following portions of the patient's history were reviewed and updated as appropriate: allergies, current medications, past family history, past medical history, past social history, past surgicalhistory and problem list. SH: no tob use Current Outpatient Medications: ??? amLODIPine-benazepril (LOTREL) 5-40 MG QD ??? cholecalciferol (VITAMIN D3) 1000 units QD ??? ezetimibe (ZETIA) 10 MG QD ??? metFORMIN ER (GLUCOPHAGE-XR) 750 MG 2 QD ??? NON FORMULARY, Smooth Move Tea QHS QD ??? omeprazole (priLOSEC) 40 MG QD ??? pioglitazone (ACTOS) 30 MG QD ??? vitamin B-12 (CYANOCOBALAMIN) 1000 MCG QD VITALS: BP 118/60 (BP Location: Left arm, Patient Position: Sitting) Pulse 72 Wt 73.2 kg (161 lb 6.4 oz) BMI 26.45 kg/m?? Physical Exam Constitutional: She is oriented to person, place, and time. She appears well- developed and well-nourished. Eyes: Conjunctivae and EOM are normal. Cardiovascular: Normal rate, regular rhythm and normal heart sounds. Pulmonary/Chest: Effort normal and breath sounds normal. No respiratory distress. Musculoskeletal: Normal gait Neurological: She is alert and oriented to person, place, and time. Skin: Skin is warm and dry. Psychiatric: She has a normal mood and affect. Her behavior is normal. Nursing note and vitals reviewed. LABS Results for orders placed or performed in visit on 06/27/19 POC Glycosylated Hemoglobin (Hb A1C) Result Value Ref Range Hemoglobin A1C 6.0 % 06/30/19 DEXA L -1.3, H -2.0, A -5.4 ASSESSMENT/PLAN Problem List Items Addressed This Visit Type 2 diabetes mellitus with stage 3 chronic kidney disease, without long-term current use of insulin ([facility]) Reminder needs annual eye exam, pending 07/16/19 per pt; recent 06/26 A1C 6.0; on amita 30mg QD and metXR 1500mg QD; will f/u in 6 mos Osteoporosis - Primary Worsened DEXA with worst T score -5.4 at the radius; reviewed goals of tx to decr fx risk; reviewedcalcium and vitamin D supplementation with weight-bearing exercise; med options, risks, side effects, and goals reviewed with patient; she will proceed with alendronate 70mg weekly #13, 2RF; also note 02/22 GFR 50; repeat DEXA 06/2021 - if worsened, rec consideration for Forteo (or Tymlos) at that time; also may need to decr dose if kidney function worsens Relevant Medications alendronate (FOSAMAX) 70 MG tablet Hypertension BP remains stable 118/60; on amlo benaz 5/40 QD Relevant Medications amLODIPine-benazepril (LOTREL) 5-40 MG per capsule Hyperlipidemia Relevant Medications ezetimibe (ZETIA) 10 MG tablet FOLLOW-UP 1. Health maintenance - flu vacc 03/25; eye exam with Dr. Mares pending 07/16/19 per patient (requested that she have him send us office note) 2. RTC 12/26/19 as scheduled with A1C Electronically signed by: Betsy Smith MD, FACP 07/11/2019 * Betsy Smith MD - 07/11/2019 5:45 AM ESTAssociated Problem(s): Osteoporosis Worsened DEXA with worst T score -5.4 at the radius; reviewed goals of tx to decr fx risk; reviewedcalcium and vitamin D supplementation with weight-bearing exercise; med options, risks, side effects, and goals reviewed with patient; she will proceed with alendronate 70mg weekly #13, 2RF; also note 02/22 GFR 50; repeat DEXA 06/2021 - if worsened, rec consideration for Forteo (or Tymlos) at that time; also may need to decr dose if kidney function worsens * Betsy Smith MD - 07/11/2019 5:44 AM ESTAssociated Problem(s): Type 2 diabetes mellitus with stage 3b chronic kidney disease, without long-term current use of insulin Reminder needs annual eye exam, pending 07/16/19 per pt; recent 06/26 A1C 6.0; on amita 30mg QD and metXR 1500mg QD; will f/u in 6 mos * Betsy Smith MD - 07/11/2019 5:43 AM ESTAssociated Problem(s): Hypertension BP remains stable 118/60; on amlo benaz 5/40 QD documented in this encounter Plan of Treatment Upcoming Encounters Date Type Department Care Team (Late st Contact Info) Description 06/09/2024 3:00 PM EST Office Visit [facility] [address] [place] [phone] Betsy Smith MD [address] [place], [place] [phone] documented as of this encounter Visit Diagnoses Diagnosis Osteoporosis- Primary Hypertension Unspecified essential hypertension Type 2 diabetes mellitus with stage 3 chronic kidney disease, without long-term current use of insulin Hyperlipidemia Pure hypercholesterolemia documented in this encounter Care Teams Commissions Manager Relationship Specialty Start Date End Date Betsy Smith MD [address] [place] [address] PCP - General 02/08/15 documented as of this encounter
--- OUTSIDE RECORDS SUMMARY | 2024-03-25 02:51 | XMS_ITS | Encounter Summary ---
Author Organization [facility] ystem Address [address] [place] [address] Care Team Providers Care Thermal Intelligence Analyst Name Role Phone Betsy Smith MD Primary Care Provider [phone] Reason for Visit * Reason Comments Follow-up Type 2 DM Encounter Details Date Type Department Care Team (Late st Contact Info) Description 11/28/2016 12:45 PM EDT Office Visit [facility] INTERNAL MEDICINE [address] [place] [phone] [place] [address] [place] [phone] Controlled type 2 diabetes mellitus (Primary Dx); Hypertension; Constipation; Vitamin D deficiency; Hyperlipidemia; Routine health maintenance Social History Tobacco Use Types Packs/Day Years [...] 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 file Not on fi le documented as of this encounter Last Filed Vital Signs Vital Sign Reading Time Taken Comments Blood Pressure 122/80 11/28/2016 12:29 PM EDT Pulse 69 11/28/2016 12:29 PM EDT Temperature - - Respiratory Rate - - Oxygen Saturation 99% 11/28/2016 12:29 PM EDT Inhaled Oxygen Concentration - - Weight 80.7 kg (178 lb) 11/28/2016 12:29 PM EDT Height - - Body Mass Index 27.06 08/29/2016 12:40 PM EDT documented in this encounter Progress Notes * Betsy Smith MD - 11/28/2016 1:14 PM EDTAssociated Problem(s): Type 2 diabetes mellitus with stage 3b chronic kidney disease, without long-term current use of insulin Commended patient on improved BG control with A1C 5.7; encouraged reg phys activity to decr insulinresistance, moderation in unhealthy starches/sweets; f/u A1C in 3 mos * Betsy Smith MD - 11/28/2016 1:14 PM EDTAssociated Problem(s): Constipation Improved with Smooth Move tea nightly; adequate fiber and water intake * Betsy Smith MD - 11/28/2016 1:14 PM EDTAssociated Problem(s): Hypertension BP stable on HCTZ 25mg QD * Betsy Smith MD - 11/28/2016 12:45 PM EDT Chief Complaint Patient presents with ??? Follow-up Type 2 DM History of Present Illness 81 y.o. woman presents for DM follow-up. Has been checking BGs, fasting in the 100s on average, up to 150-160s. Has been eating more fruits this summer. Reports constipation, resolved with Smooth Move tea, taken nightly at [place]. Review of Systems ROS neg for CP, palpitations, SOB, lightheadedness, falls. All other ROS reviewed and negative. PMSFH The following portions of the patient's history were reviewed and updated as appropriate: allergies, current medications, past family history, past medical history, past social history, past surgicalhistory and problem list. SH: enjoys playing bingo; stays up late at night Current Outpatient Prescriptions: ??? amLODIPine-benazepril (LOTREL) 5-40 MG per capsule, Take 1 capsule by mouth Daily., Disp: 90 capsule, Rfl: 3 ??? aspirin 81 MG tablet, Take 1 tablet by mouth Daily., Disp: , Rfl: ??? Cholecalciferol (VITAMIN D3) 1000 UNITS capsule, Take 1 capsule by mouth Daily., Disp: , Rfl: ??? ezetimibe (ZETIA) 10 MG tablet, Take 1 tablet by mouth Daily., Disp: 90 tablet, Rfl: 3 ??? fluticasone (FLONASE) 50 MCG/ACT nasal spray, 2 sprays into each nostril Every Morning., Disp: 3 each, Rfl: 3 ??? hydrochlorothiazide (HYDRODIURIL) 25 MG tablet, Take 1 tablet by mouth Daily., Disp: 90 tablet,Rfl: 3 ??? loratadine (LORATADINE ALLERGY RELIEF) 10 MG disintegrating tablet, Take 10 mg by mouth Daily.,Disp: , Rfl: ??? Methylcellulose, Laxative, (MIRAFIBER PO), Take 2 tablets by mouth Daily., Disp: , Rfl: ??? omeprazole (priLOSEC) 40 MG capsule, Take 40 mg by mouth Daily., Disp: , Rfl: ??? pioglitazone-metFORMIN (ACTOPLUS MET) 15-850 MG per tablet, Take 1 tablet by mouth 2 (Two) Times a Day With Meals., Disp: 180 tablet, Rfl: 3 VITALS: BP 122/80 Pulse 69 Wt 178 lb (80.7 kg) SpO2 99% BMI 27.06 kg/m2 Physical Exam Constitutional: She is oriented to person, place, and time. She appears well- developed and well-nourished. Eyes: Conjunctivae and EOM are normal. Cardiovascular: Normal rate, regular rhythm and normal heart sounds. Pulmonary/Chest: Effort normal and breath sounds normal. Abdominal: Soft. Bowel sounds are normal. Neurological: She is alert and oriented to person, place, and time. Psychiatric: She has a normal mood and affect. Her behavior is normal. Nursing note and vitals reviewed. LABS Results for orders placed or performed in visit on 11/28/16 POC Glycosylated Hemoglobin (Hb A1C) Result Value Ref Range Hemoglobin A1C 5.7 % 08/21 A1C 6.4 02/19 A1C 5.7 ASSESSMENT/PLAN Problem List Items Addressed This Visit Diabetes mellitus type II, controlled, with no complications - Primary (Chronic) Commended patient on improved BG control with A1C 5.7; encouraged reg phys activity to decr insulinresistance, moderation in unhealthy starches/sweets; f/u A1C in 3 mos Relevant Orders POC Glycosylated Hemoglobin (Hb A1C) (Completed) Hypertension BP stable on HCTZ 25mg QD Constipation Improved with Smooth Move tea nightly; adequate fiber and water intake FOLLOW-UP RTC for next wellness after 02/28/17; fasting labs the week prior to appt (CBC, CMP, TSH, lipids, UA/micro, microalb, A1C, FT4, vit D, B12) - lab orders given to patient to do in [place] Electronically signed by: Betsy Smith MD 11/28/2016 documented in this encounter Plan of Treatment Upcoming Encounters Date Type Department Care Team ([facility] st Contact Info) Description 06/09/2024 3:00 PM EST Office Visit [facility] INTER[facility] MEDICINE [address] [place] [phone] Betsy Smith MD [address] [place] [address] [phone] documented as of this encounter Procedures Procedure Name Priority Date/Time Associated Diagnosis Comments POCT GLYCOSYLATED HEMOGLOBIN (HGB A1C) Routine 11/28/2016 12:34 PM EDT Controlled type 2 diabetes mellitus documented in this encounter Results * POC Glycosylated Hemoglobin (Hb A1C) (11/28/2016 12:34 PM EDT) Hemoglobin A1C 5.7 % [facility] Blood 11/28/2016 12:3 4 PM EDT us Betsy Smith MD POINT OF CARE TEST ORDERABLES Fi nal Result [facility]
[address] [place] [phone], documented in this encounter Visit Diagnoses Diagnosis Controlled type 2 diabetes mellitus- Primary Hypertension Unspecified essential hypertension Constipation Unspecified constipation Vitamin D deficiency Hyperlipidemia Pure hypercholesterolemia Routine health maintenance Unspecified examination documented in this encounter Care Teams Thermal Intelligence Analyst Relationship Specialty Start Date End Date Betsy Smith MD [address] [place] [address] PCP - General 02/08/15 documented as of this encounter
--- OUTSIDE RECORDS SUMMARY | 2024-03-25 02:51 | XMS_ITS | Encounter Summary ---
[facility] Address [address] [place] [address] Care Team Providers Care Family Counselor Name Role Phone Betsy Smith MD Primary Care Provider [phone] Reason for Referral * Diagnostic Imaging (Routine) - Closed Specialty Diagnoses / Procedures [facility] To Contact Radiology Diagnoses Age-related osteoporosis without current pathological fracture Procedures DEXA Bone Density Axial Betsy Smith MD Phone: tel: fax: [address] [phone] Phone: tel: Referral ID Status Reason Start Date Expiration Date Visits Re quested Visits Authorized [id number] Closed 03/10/2019 03/09/2020 1 1 Reason for Visit * Diagnostic Imaging (Routine) - Closed Specialty Diagnoses / Procedures Referred By [facility] t Referred To Contact Radiology Diagnoses Age-related osteoporosis without current pathological fracture Procedures DEXA Bone Density Axial Betsy Smith MD Phone: tel: fax: [address] [phone] Phone: tel: Referral ID Status Reason Start Date Expiration Date Visits Re quested Visits Authorized [id number] Closed 03/10/2019 03/09/2020 1 1 Encounter Details Date Type Department Care Team (Latest Contact Info) Description 06/30/2019 1:06 PM EST - 06/30/2019 11:59 PM EST Hospital Encounter [facility] [address] [place] [address] Betsy Smith MD [address] [place] [address] Osteoporosis Discharge Disposition: Home or Self Care [...] tablet Take 1 tablet by mouth Daily. amLODIPine-benazepril (LOTREL) 5-40 MG per capsuleIndications:Essent ial hypertension Take 1 capsule by mouth Daily. 90 capsule 3 9 07/11/19 20 ezetimibe (ZETIA) 10 MG tabletIndications:Pure hypercholesterolemia Take 1 tablet by mouth Daily. 90 tablet 3 9 07/11/19 20 metFORMIN ER (GLUCOPHAGE-XR) 750 MG 24 hr tabletIndications:Type 2 diabetes mellitus with stage 3 chronic kidney disease, without long-term current use of insulin Take 2 tablets by mouth Daily With Breakfast. 180 tablet 3 9 03/12/20 20 NON FORMULARY Smooth Move Tea QHS 10/18/19 24 Omeprazole 20 MG Tablet Delayed Release Dispersible Take 2 tablets by mouth Daily. 10/18/19 24 pioglitazone (ACTOS) 30 MG tabletIndications:Type 2 diabetes mellitus with stage 3 chronic kidney disease, without long-term current use of insulin Take 1 tablet by mouth Daily. 90 tablet 3 9 03/12/20 20 vitamin B-12 (CYANOCOBALAMIN) 1000 MCG tabletIndications:B12 deficiency Take 1,000 mcg by mouth Daily. 03/12/20 20 documented as of this encounter Progress Notes * Betsy Smith MD - 06/30/2019 11:59 PM EST Bone density shows significantly worsened (decreased) bone density compared to DEXA in 2016. This indicates a significant fx risk. Rec OV to discuss tx options documented in this encounter Plan of Treatment Upcoming Encounters Date Type Department Care Team (Late st Contact Info) Description 06/09/2024 3:00 PM EST Office Visit [facility] INTERNAL MEDICINE [address] [place] [phone] Betsy Smith MD [address] [place] [address] [phone] documented as of this encounter Procedures Procedure Name Priority Date/Time Associated Diagnosis Comments DEXA BONE DENSITY AXIAL Routine 06/30/2019 1:37 PM EST Osteoporosis documented in this encounter Results * [...] fall-prevention measurements. The National Osteoporosis Foundation recommends (http://www.nof.org/hcp/practice/cdraiolo-quf-xooldpfe-guidelines/clinic ans-guide) that FDA-approved medical therapies be considered [...] the left hip with 95% confidence is 0.521708 gm/cm2 at the hip and 0.129885 g/cm2 at the lumbar spine. This report [...] fall-prevention measurements. The National Osteoporosis Foundation recommends (http://www.nof.org/hcp/practice/ccrwurpk-hps-uujnfuzb-guidelines/clinic ans-guide) that FDA-approved medical therapies be considered [...] the left hip with 95% confidence is 0.717068 gm/cm2 at the hip and 0.053865 g/cm2 at the lumbar spine. This report was finalized on 07/04/2019 9:[address] Glen Aragon MD. Betsy Smith MD IMG DXA ORDERABLES Final Result documented in this encounter Visit Diagnoses Diagnosis Osteoporosis documented in this encounter Care Teams Family Counselor Relationship Specialty Start Date End Date Betsy Smith MD [address] [place] [id number] PCP - General 02/08/15 documented as of this encounter
--- OUTSIDE RECORDS SUMMARY | 2024-03-25 02:51 | XMS_ITS | Encounter Summary ---
Author Organization [facility] ystem Address [address] [place] [address] Care Team Providers Care Litigation Counsel Name Role Phone Betsy Smith MD Primary Care Provider [phone] Reason for Visit * Reason Comments Follow-up 3mo fu diabetes, htn , hyperlipidemia Encounter Details Date Type Department Care Team (Late st Contact Info) Description 06/26/2017 11:15 AM EST Office Visit [facility] INTERNAL MEDICINE [address] [place] [phone] [place] [address] [place] [address] Controlled type 2 diabetes mellitus (Primary Dx); Hypertension; Hyponatremia; CKD (chronic kidney disease), stage III; Hemorrhoids, unspecified hemorrhoid type Social History Tobacco Use Types Packs/Day [...] 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 documented as of this encounter Last Filed Vital Signs Vital Sign Reading Time Taken Comments Blood Pressure 126/70 06/26/2017 10:57 AM EST Pulse 78 06/26/2017 10:57 AM EST Temperature - - Respiratory Rate 18 06/26/2017 10:57 AM EST Oxygen Saturation - - Inhaled Oxygen Concentration - - Weight 77.6 kg (171 lb 2 oz) 06/26/2017 10:57 AM EST Height - - Body Mass Index 26.21 03/06/2017 1:50 PM EDT documented in this encounter Progress Notes * Betsy Smith MD - 06/26/2017 1:22 PM ESTAssociated Problem(s): Hemorrhoids Likely int/ext hemorrhoids per patient; back on Miralax for chronic constipation; rec Tucks wipes as needed and rec OTC prep H supp BID-TID prn as needed * Betsy Smith MD - 06/26/2017 1:21 PM ESTAssociated Problem(s): CKD (chronic kidney disease), stage III Renal function remains stable with Cr 1.11, GFR 47; discussed importance of good BGs and BPs; avoidNSAIDs; repeat labs in 6 mos * Betsy Smith MD - 06/26/2017 11:35 AM ESTAssociated Problem(s): Hyponatremia Fluid restriction recommended since labs done last week but not followed; will therefore hold HCTZ and have her check BMP with TSH in 1 week (lab order given to patient to do closer to home); discussed decreasing water intake from 5 to 4 bottles daily; RTC 1 month at the latest in the office * Betsy Smith MD - 06/26/2017 11:34 AM ESTAssociated Problem(s): Hypertension BP stable on amlo/benaz but will d/c HCTZ due to hyponatremia; have her monitor local BPs withgoal < 130/80; will need to add additional med if consistently > 140/90 * Betsy Smith MD - 06/26/2017 11:34 AM ESTAssociated Problem(s): Type 2 diabetes mellitus with stage 3b chronic kidney disease, without long-term current use of insulin BG control stable with A1C 6.3; encouraged reg phys activity to decr insulin resistance, moderationin unhealthy starches/sweets; f/u A1C in 6 mos * Betsy Smith MD - 06/26/2017 11:15 AM EST Chief Complaint Patient presents with ??? Follow-up 3mo fu diabetes, htn, hyperlipidemia History of Present Illness 82 y.o. woman presents for sugar and BP follow-up. Did not receive message to fluid restrict over the last week. States she drinks at least 5 bottles water per day. Also drinks about 3 cupsof coffee. Has been eating a lot of bananas. Also drinks a tea to help her bowels move. Review of Systems ROS (+) for flare-up of hemorrhoids. Back on miralax and doing better but wondering what she can use OTC. States there is a history of ext/int hemorrhoids. Denies dizziness, lightheadedness, CP, palpitations, SOB , n/v. Tries to eat a lot Na diet. All other ROS reviewed and negative. [facility] The following portions of the patient's history were reviewed and updated as appropriate: allergies, current medications, past family history, past medical history, past social history, past surgicalhistory and problem list. Current Outpatient Prescriptions: ??? amLODIPine-benazepril (LOTREL) 5-40 MG QD ??? aspirin 81 MG tablet, QD ??? ESGOBDS-CAQKMNCKI-VOEGQDS D PO, 2 QD ??? ezetimibe (ZETIA) 10 MG tablet, TQD ??? fluticasone (FLONASE) 50 MCG/ACT 2 sprays/notril QD ??? hydrochlorothiazide (HYDRODIURIL) 25 MG tablet, QD ??? omeprazole (priLOSEC) 40 MG capsule, TaQD ??? pioglitazone-metFORMIN (ACTOPLUS MET) 15-850 MG per tablet, BID ??? Polyethylene Glycol 3350 (MIRALAX PO), QD ??? loratadine (LORATADINE ALLERGY RELIEF) 10 MG DQ ??? Methylcellulose, Laxative, (MIRAFIBER PO), 2 QD VITALS: BP 126/70 (BP Location: Right arm, Patient Position: Sitting) Pulse 78 Resp 18 Wt 77.6 kg (171 lb 2 oz) BMI 26.21 kg/m2 Physical Exam Constitutional: She is oriented to person, place, and time. She appears well- developed and well-nourished. Eyes: Conjunctivae and EOM are normal. Cardiovascular: Normal rate, regular rhythm and normal heart sounds. Pulmonary/Chest: Effort normal and breath sounds normal. Abdominal: Soft. Bowel sounds are normal. Musculoskeletal: Normal gait Neurological: She is alert and oriented to person, place, and time. Psychiatric: She has a normal mood and affect. Her behavior is normal. Nursing note and vitals reviewed. LABS Stable A1C 6.3 (was 6.2 in 02/20); stable Cr 1.1, GFR 47, normalized B12 663 (was 232 in 02/20) Low Na 129 (was 133 and 134 in 2016) ASSESSMENT/PLAN Problem List Items Addressed This Visit Diabetes mellitus type II, controlled, with no complications - Primary (Chronic) BG control stable with A1C 6.3; encouraged reg phys activity to decr insulin resistance, moderationin unhealthy starches/sweets; f/u A1C in 6 mos Hypertension BP stable on amlo/benaz but will d/c HCTZ due to hyponatremia; have her monitor local BPs withgoal < 130/80; will need to add additional med if consistently > 140/90 CKD (chronic kidney disease), stage III Renal function remains stable with Cr 1.11, GFR 47; discussed importance of good BGs and BPs; avoidNSAIDs; repeat labs in 6 mos Hyponatremia Fluid restriction recommended since labs done last week but not followed; will therefore hold HCTZ and have her check BMP with TSH in 1 week (lab order given to patient to do closer to home); discussed decreasing water intake from 5 to 4 bottles daily; RTC 1 month at the latest in the office Relevant Orders Basic Metabolic Panel TSH Hemorrhoids Likely int/ext hemorrhoids per patient; back on Miralax for chronic constipation; rec Tucks wipes as needed and rec OTC prep H supp BID-TID prn as needed FOLLOW-UP 1. Health maintenance - flu vacc 02/20 2. RTC 1 mo for BP check and BMP Electronically signed by: Betsy Smith MD 06/26/2017 documented in this encounter Plan of Treatment Upcoming Encounters Date Type Department Care Team (Late st Contact Info) Description 06/09/2024 3:00 PM EST Office Visit [facility] MED[facility] [address] [place] [phone] Betsy Smith MD [address] [place] [phone] documented as of this encounter Results * TSH (03/07/2018 11:46 AM EDT) TSH 1.863 0.350 - 5.350 mIU/mL 03/07/2018 5:44 PM EDT [facility] Blood Venipuncture / Unknown 03/07/2018 11:46 AM EDT 03/07/2018 11:46 AM EDT us Betsy Smith MD LAB BLOOD ORDERABLES Final Resul t [facility]
[address] [place] [address], documented in this encounter Visit Diagnoses Diagnosis Controlled type 2 diabetes mellitus- Primary Hypertension Unspecified essential hypertension Hyponatremia Hyposmolality and/or hyponatremia CKD (chronic kidney disease), stage III Chronic kidney disease, Stage III (moderate) Hemorrhoids, unspecified hemorrhoid type documented in this encounter Care Teams Litigation Counsel Relationship Specialty Start Date End Date Betsy Smith MD [address] [place] [id number] PCP - General 02/08/15 documented as of this encounter
--- OUTSIDE RECORDS SUMMARY | 2024-03-25 02:51 | XMS_ITS | Encounter Summary ---
[facility] Address [address] [place] [address] Care Team Providers Care Jowl Trimmer Name Role Phone Betsy Smith MD Primary Care Provider [phone] Reason for Referral * Diagnostic Imaging (Routine) - Closed Specialty Diagnoses / Procedures Referred By Contac t Referred To Contact Radiology Diagnoses Visit for screening mammogram Procedures Mammo Screening Digital Tomosynthesis Bilateral With CAD Betsy Smith MD Phone: tel: fax: [facility] [address] [place] [phone] Phone: tel: Referral ID Status Reason Start Date Expiration Date Visits Re quested Visits Authorized [id number] Closed 02/01/2018 02/01/2019 1 1 Reason for Visit * Reason Comments Diabetes Follow up Hypertension Encounter Details Date Type Department Care Team ([facility] st Contact Info) Description 02/01/2018 11:30 AM EDT Office Visit [facility] [address] [place] [phone] Betsy Smith MD [address] [place] [address] Controlled type 2 diabetes mellitus without complication, without long-term current use of insulin (Primary Dx); Hypertension; Hyponatremia; Vaccine counseling; Visit for screening mammogram; Constipation; B12 deficiency; Vitamin D deficiency; Hyperlipidemia; Medicare annual wellness visit, subsequent; Ecchymosis; CKD (chronic kidney disease), stage III Social History Tobacco Use Types Packs/Day Years [...] 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 Not on file Not on fi le documented as of this encounter Last Filed Vital Signs Vital Sign Reading Time Taken Comments Blood Pressure 130/68 02/01/2018 11:11 AM EDT Pulse 78 02/01/2018 11:11 AM EDT Temperature - - Respiratory Rate - - Oxygen Saturation 99% 02/01/2018 11:11 AM EDT Inhaled Oxygen Concentration - - Weight 75.8 kg (167 lb 3.2 oz) 02/01/2018 11:11 AM EDT Height - - Body Mass Index 25.61 03/06/2017 1:50 PM EDT documented in this encounter Progress Notes * Betsy Smith MD - 02/01/2018 12:42 PM EDTAssociated Problem(s): Hyponatremia Patient requesting BMP for f/u; done on way out door * Betsy Smith MD - 02/01/2018 12:41 PM EDTAssociated Problem(s): Constipation Resolved with smooth move tea qhs, off of miralax at this time * Janeth Haile - 02/01/2018 11:30 AM EDTAddended by: JANETH HAILE on: 02/07/2018 04:52 PM Modules accepted: Orders * Betsy Smith MD - 02/01/2018 11:30 AM EDT Chief Complaint Patient presents with ??? Diabetes Follow up ??? Hypertension History of Present Illness 82 y.o. woman presents for DM and blood pressure f/u. Feels well overall without complaints. States bowels moving better with smooth tea, which she takes everrynight; works better than miralax, which she has stopped. Reports pulsating sensation in head, which stopped after discontinuation of ASA. Also had resolution of significant bruising on her forearms after stopping ASA. BP readings have remained 130s systolic off of HCTZ. Review of Systems RPS (+) for easy bruising, resolved off of ASA. Denies CP, palpitations, SOB, lightheadedness, falls. All other ROS reviewed and negative. PMSFH The following portions of the patient's history were reviewed and updated as appropriate: allergies, current medications, past family history, past medical history, past social history, past surgicalhistory and problem list. Current Outpatient Prescriptions: ??? amLODIPine-benazepril (LOTREL) 5-40 MG QD ??? [id number]-[id number]-CDGASWX D PO, 2 QD ??? ezetimibe (ZETIA) 10 MG tablet, QD ??? fluticasone (FLONASE) 50 MCG/ACT nasal spray, 2 spr/nostril QD ??? loratadine (LORATADINE ALLERGY RELIEF) 10 MG QD ??? Smooth Move Tea QHS, ??? omeprazole (priLOSEC) 40 MG capsule, QD ??? pioglitazone-metFORMIN (ACTOPLUS MET) 15-850 MG BID w/ meals VITALS: BP 130/68 Pulse 78 Wt 75.8 kg (167 lb 3.2 oz) SpO2 99% ? No BMI 25.61 kg/m?? Physical Exam Constitutional: She is oriented to person, place, and time. She appears well- developed and well-nourished. Eyes: Conjunctivae and EOM are normal. Cardiovascular: Normal rate, regular rhythm and normal heart sounds. Pulmonary/Chest: Effort normal and breath sounds normal. No respiratory distress. She has no wheezes. Abdominal: Soft. Bowel sounds are normal. Neurological: She is alert and oriented to person, place, and time. Psychiatric: She has a normal mood and affect. Her behavior is normal. Nursing note and vitals reviewed. LABS Results for orders placed or performed in visit on 02/01/18 POC Glycosylated Hemoglobin (Hb A1C) Result Value Ref Range Hemoglobin A1C 5.7 % 06/24 A1C 6.3 ASSESSMENT/PLAN Problem List Items Addressed This Visit Diabetes mellitus type II, controlled, with no complications ([facility]) - Primary (Chronic) BG control improved/good with A1C 5.7; encouraged reg phys activity to decr insulin resistance, moderation in unhealthy starches/sweets; f/u A1C in 6 mos Relevant Orders POC Glycosylated Hemoglobin (Hb A1C) (Completed) Hypertension BP stable on amlo benaz 5/40 QD;remains off of HCTZ (stopped due to hypoNa) Constipation Resolved with smooth move tea qhs, off of miralax at this time Hyponatremia Patient requesting BMP for f/u; done on way out door Relevant Orders Basic Metabolic Panel Other Visit Diagnoses Vaccine counseling flu vacc given; counseling re: shingrix and hep A re: indications, risks, s/e, getting at pharmacy and obtaining documentation Visit for screening mammogram Relevant Orders Mammo Screening Digital Tomosynthesis Bilateral With CAD FOLLOW-UP 1. Health maintenance - flu vacc given today; rec Shingrix and hep A vacc - counseling given and rec doing at pharmacy 2. RTC for next wellness 03/07/18; fasting labs the week prior to appt (CBC, CMP, TSH, lipids, UA/micro, microalb, FT4, vit D, B12) - lab orders need to be faxed to [facility] Electronically signed by: Betsy Smith MD 02/01/2018 * Betsy Smith MD - 02/01/2018 11:30 AM EDT Sodium remains normal; kidney function also improved - cont current meds * Janeth Haile - 02/01/2018 11:30 AM EDT All lab orders faxed * Betsy Smith MD - 01/31/2018 11:12 PM EDTAssociated Problem(s): Type 2 diabetes mellitus with stage 3b chronic kidney disease, without long-term current use of insulin BG control improved/good with A1C 5.7; encouraged reg phys activity to decr insulin resistance, moderation in unhealthy starches/sweets; f/u A1C in 6 mos * Betsy Smith MD - 01/31/2018 11:12 PM EDTAssociated Problem(s): Hypertension BP stable on amlo benaz 5/40 QD;remains off of HCTZ (stopped due to hypoNa) documented in this encounter Plan of Treatment Upcoming Encounters Date Type Department Care Team (Late st Contact Info) Description 06/09/2024 3:00 PM EST Office Visit [facility] [address] [place] [phone] Betsy Smith MD [address] [place] [phone] documented as of this encounter Procedures Procedure Name Priority Date/Time Associated Diagnosis Comments BASIC METABOLIC PANEL Routine 02/01/2018 11:58 AM EDT Hyponatremia POCT GLYCOSYLATED HEMOGLOBIN (HGB A1C) Routine 02/01/2018 11:20 AM EDT Controlled type 2 diabetes mellitus without complication, without long-term current use of insulin documented in this encounter Results * Vitamin B12 (03/07/2018 11:46 AM EDT) Vitamin B-12 684 211 - 911 pg/mL 03/07/2018 5:44 PM EDT [facility] Blood Venipuncture / Unknown 03/07/2018 11:46 AM EDT 03/07/2018 11:46 AM EDT Betsy Smith MD LAB BLOOD ORDERABLES Final Resul t [facility]
[address] [place] [address], * Microalbumin / Creatinine Urine Ratio - [...] 9:21 AM EDT Performed at: ??01 - [facility] [address], [place], [place] [id number] Latexer: Gerardo Yanez PhD, Phone: ??[phone] us Betsy Smith MD URINE ORDERABLES Final Result [facility] [address] [place] [address], [place] [phone] * T4, free (03/07/2018 11:46 AM EDT) Free T4 1.30 0.89 - 1.76 ng/dL 03/07/2018 5:44 PM EDT [facility] Blood Venipuncture / Unknown 03/07/2018 11:46 AM EDT 03/07/2018 11:46 AM EDT us Betsy Smith MD LAB BLOOD ORDERABLES Final Resul t Performing Organization Address City/[facility]/ZIP Co de Phone Number [facility]
[address] [place] [address], * (ABNORMAL) Lipid panel (03/07/2018 11:46 AM EDT) [facility] Total Cholesterol 164 0 - 200 mg/dL 03/07/2018 5:34 PM EDT [facility] Triglycerides 66 0 - 150 mg/dL 03/07/2018 5:34 PM EDT [facility] HDL Cholesterol 78(H) 40 - 60 mg/dL 03/07/2018 5:34 PM EDT [facility] LDL Cholesterol 81 0 - 130 mg/dL 03/07/2018 5:34 PM EDT [facility] Blood Venipuncture / Unknown 03/07/2018 11:46 AM EDT 03/07/2018 11:46 AM EDT [facility] - 03/07/2018 5:34 PM EDT Cholesterol [...] Very High ? > 189 mg/dL us Betsy Smith MD LAB BLOOD ORDERABLES Final Resul t [facility]
[address] [place] [address], * (ABNORMAL) Comprehensive metabolic panel (03/07/2018 11:46 AM EDT) Glucose 88 70 - 100 mg/dL 03/07/2018 5:34 PM EDT [facility] BUN 26(H) 9 - 23 mg/dL 03/07/2018 5:34 PM EDT [facility] Creatinine 1.17 0.60 - 1.30 mg/dL 03/07/2018 5:34 PM EDT [facility] Sodium 137 132 - 146 mmol/L 03/07/2018 5:34 PM EDT [facility] Potassium 5.0 3.5 - 5.5 mmol/L 03/07/2018 5:34 PM EDT [facility] Chloride 103 99 - 109 mmol/L 03/07/2018 5:34 PM EDT [facility] CO2 26.0 20.0 - 31.0 mmol/L 03/07/2018 5:34 PM EDT [facility] Calcium 9.4 8.7 - 10.4 mg/dL 03/07/2018 5:34 PM EDT [facility] Total Protein 6.0 5.7 - 8.2 g/dL 03/07/2018 5:34 PM EDT [facility] Albumin 4.18 3.20 - 4.80 g/dL 03/07/2018 5:34 PM EDT [facility] ALT (SGPT) 8 7 - 40 U/L 03/07/2018 5:34 PM EDT [facility] AST (SGOT) 16 0 - 33 U/L 03/07/2018 5:34 PM EDT [facility] Alkaline Phosphatase 65 25 - 100 U/L 03/07/2018 5:34 PM EDT [facility] Total Bilirubin 0.4 0.3 - 1.2 mg/dL 03/07/2018 5:34 PM EDT [facility] eGFR Non Amer 44(L) >60 mL/min/1.7 3 03/07/2018 5:34 PM EDT [facility] Globulin 1.8 gm/dL 03/07/2018 5:34 PM EDT [facility] A/G Ratio 2.3 1.5 - 2.5 g/dL 03/07/2018 5:34 PM EDT [facility] BUN/Creatinine Ratio 22.2 7.0 - 25.0 03/07/2018 5:34 PM EDT [facility] Anion Gap 8.0 3.0 - 11.0 mmol/L 03/07/2018 5:34 PM T [facility] Blood Venipuncture / Unknown 03/07/2018 11:46 AM EDT 03/07/2018 11:46 AM EDT [facility] - 03/07/2018 5:34 PM EDT National [...] MD LAB BLOOD ORDERABLES Final Resul t [facility]
[address] [place] [address], * Mammo Screening Digital Tomosynthesis Bilateral With [...] Smith MD IMG MAMMOGRAPHY ORDERABLES Final Result * (ABNORMAL) Basic Metabolic Panel (02/01/2018 11:58 AM EDT) Glucose 90 70 - 100 mg/dL 02/01/2018 4:06 PM EDT [facility] BUN 20 9 - 23 mg/dL 02/01/2018 4:06 PM EDT [facility] Creatinine 1.15 0.60 - 1.30 mg/dL 02/01/2018 4:06 PM EDT [facility] Sodium 137 132 - 146 mmol/L 02/01/2018 4:06 PM EDT [facility] Potassium 4.9 3.5 - 5.5 mmol/L 02/01/2018 4:06 PM EDT [facility] Chloride 95(L) 99 - 109 mmol/L 02/01/2018 4:06 PM EDT [facility] CO2 28.0 20.0 - 31.0 mmol/L 02/01/2018 4:06 PM EDT [facility] Calcium 9.6 8.7 - 10.4 mg/dL 02/01/2018 4:06 PM EDT [facility] eGFR Non Amer 45(L) >60 mL/min/1.7 3 02/01/2018 4:06 PM EDT [facility] BUN/Creatinine Ratio 17.4 7.0 - 25.0 02/01/2018 4:06 PM EDT [facility] Anion Gap 14.0(H) 3.0 - 11.0 mmol/L 02/01/2018 4:06 PM EDT [facility] Blood Venipuncture / Unknown 02/01/2018 11:58 AM EDT 02/01/2018 11:59 AM EDT [facility] - 02/01/2018 4:06 PM EDT National [employer] Guidelines Stage [...] MD LAB BLOOD ORDERABLES Final Resul t [facility]
[address] [place] [address], * POC Glycosylated Hemoglobin (Hb A1C) (02/01/2018 11:20 AM EDT) Hemoglobin A1C 5.7 % [facility] Blood 02/01/2018 11:2 0 AM EDT Betsy Smith MD POINT OF CARE TEST ORDERABLES Fi nal Result [facility]
[address] [place] [address], documented in this encounter Visit Diagnoses Diagnosis Controlled type 2 diabetes mellitus without complication, without long-term current use of insulin- Primary Hypertension Unspecified essential hypertension Hyponatremia Hyposmolality and/or hyponatremia Vaccine counseling Visit for screening mammogram Constipation Unspecified constipation B12 deficiency Vitamin D deficiency Hyperlipidemia Pure hypercholesterolemia Medicare annual wellness visit, subsequent Ecchymosis Other specified circulatory system disorders CKD (chronic kidney disease), stage III Chronic kidney disease, Stage III (moderate) Visit for screening mammogram documented in this encounter Care Teams Jowl Trimmer Relationship Specialty Start Date End Date Betsy Smith MD [address] [place] [address] PCP - General 02/08/15 documented as of this encounter
--- OUTSIDE RECORDS SUMMARY | 2024-03-25 02:51 | XMS_ITS | Encounter Summary ---
Author Organization [facility] Address [address] [place] [address] Care Team Providers Care Shipyard Painting Supervisor Name Role Phone Betsy Smith MD Primary Care Provider [phone] Reason for Visit * Reason Comments Follow-up diabetes Encounter Details Date Type Department Care Team ([facility] st Contact Info) Description 08/29/2016 12:45 PM EDT Office Visit [facility] [address] [place] [phone] Betsy Smith MD [address] [place] [phone] Controlled type 2 diabetes mellitus (Primary Dx); Hypertension; Constipation, unspecified constipation type; Gastroesophageal reflux disease, esophagitis presence not specified; Mixed urge and stress incontinence Social History Tobacco Use Types Packs/Day Years [...] 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 Not on fi le documented as of this encounter Last Filed Vital Signs Vital Sign Reading Time Taken Comments Blood Pressure 118/72 08/29/2016 12:40 PM EDT Pulse 69 08/29/2016 12:40 PM EDT Temperature - - Respiratory Rate - - Oxygen Saturation 99% 08/29/2016 12:40 PM EDT Inhaled Oxygen Concentration - - Weight 80.7 kg (178 lb) 08/29/2016 12:40 PM EDT Height 172.7 cm (5' 8 ) 08/29/2016 12:40 PM EDT Body Mass Index 27.06 08/29/2016 12:40 PM EDT documented in this encounter Progress Notes * Betsy Smith MD - 08/29/2016 1:19 PM EDTAssociated Problem(s): Overflow incontinence of urine rec Kegel exercises and making scheduled bathroom breaks; discussed poss med options but would likely exacerbate constipation * Betsy Smith MD - 08/29/2016 1:18 PM EDTAssociated Problem(s): Esophageal reflux Notes sxs better with omeprazole 40mg QD than lansoprazole; discussed taking it daily, 30 min before 1st meal of day; reviewed risks of untreated reflux * Betsy Smith MD - 08/29/2016 1:14 PM EDTAssociated Problem(s): Constipation Reports Linzess caused diarrhea; notes improvement with Mirafiber 2 QD, noting it is more effectivethan plain miralax * Betsy Smith MD - 08/29/2016 12:57 PM EDTAssociated Problem(s): Type 2 diabetes mellitus with stage 3b chronic kidney disease, without long-term current use of insulin BG control mildly worsened with A1C 5.7 up to current 6.4; updated DM eye exam upcoming at [facility] - will do this summer - request that she request note from them; encouraged reg phys activity to decr insulin resistance, moderation in unhealthy starches/sweets; f/u A1C in 3 mos * Betsy Smith MD - 08/29/2016 12:55 PM EDTAssociated Problem(s): Hypertension BP stable on HCTZ 25mg QD * Betsy Smith MD - 08/29/2016 12:45 PM EDT Chief Complaint Patient presents with ??? Follow-up diabetes History of Present Illness 81 y.o. woman presents for DM follow-up. NOt checking BGs daily but generally noting FGs in the 70s and nonfasting BGs 140-150s about 1hr after eating. Complains of leakage of urine when gets the sensation that she needs to go to the bathroom. Wears pad at baseline with leakage from laughing and coughing. No pain with urination and no blood in the urine. Reports chronic constipation; local doctor prescribed Linzess, which she had to stop taking due to diarrhea. Notes change of miralax to Mirafiber, which she notes is effective. No blood in stools. Review of Systems ROS (+) for bord BGs, chronic constipation, urinary urgency and incontinence. Denies CP, palpitations, SOB. Notes weight gain. All other ROS reviewed and negative. [facility] The following portions of the patient's history [...] Disp: 180 tablet, Rfl: 3 VITALS: BP 118/72 Pulse 69 Ht 68 (172.7 cm) Wt 178 lb (80.7 kg) SpO2 99% BMI 27.06 kg/m2 Physical Exam Constitutional: She is oriented to person, place, and time. She appears well- developed and well-nourished. Note 4lb weight gain over last 6 mos Eyes: Conjunctivae and EOM are normal. Cardiovascular: Normal rate, regular rhythm and normal heart sounds. Pulmonary/Chest: Effort normal and breath sounds normal. Abdominal: Soft. Bowel sounds are normal. Vascular Status - Her exam exhibits no right foot edema. Her exam exhibits no left foot edema. Skin Integrity - Her right foot skin is intact. Tasneem 's left foot skin is intact. . Neurological: She is alert and oriented to person, place, and time. Psychiatric: She has a normal mood and affect. Her behavior is normal. Nursing note and vitals reviewed. LABS A1C 6.4; stable BMP (Cr 1.5, GFR 42) Results for orders placed or performed in visit on 02/29/16 POC Glycosylated Hemoglobin (Hb A1C) Result Value Ref Range Hemoglobin A1C 5.7 % ASSESSMENT/PLAN Problem List Items Addressed This Visit Esophageal reflux (Chronic) Notes sxs better with omeprazole 40mg QD than lansoprazole; discussed taking it daily, 30 min before 1st meal of day; reviewed risks of untreated reflux Relevant Medications omeprazole (priLOSEC) 40 MG capsule Diabetes mellitus type II, controlled, with no complications - Primary (Chronic) BG control mildly worsened with A1C 5.7 up to current 6.4; updated DM eye exam upcoming at [facility] - will do this summer - request that she request note from them; encouraged reg phys activity to decr insulin resistance, moderation in unhealthy starches/sweets; f/u A1C in 3 mos Hypertension BP stable on HCTZ 25mg QD Constipation Reports Linzess caused diarrhea; notes improvement with Mirafiber 2 QD, noting it is more effectivethan plain miralax Mixed urge and stress incontinence rec Kegel exercises and making scheduled bathroom breaks; discussed poss med options but would likely exacerbate constipation FOLLOW-UP 1. RTC 3 mos with A1C 2. Next wellness due after 02/28/17 Electronically signed by: Betsy Smith MD 08/29/2016 documented in this encounter Plan of Treatment Upcoming Encounters Date Type Department Care Team (Late st Contact Info) Description 06/09/2024 3:00 PM EST Office Visit [facility] [address] [place] [phone] Betsy Smith MD [address] [place] [phone] documented as of this encounter Visit Diagnoses Diagnosis Controlled type 2 diabetes mellitus- Primary Hypertension Unspecified essential hypertension Constipation, unspecified constipation type Gastroesophageal reflux disease, esophagitis presence not specified Mixed urge and stress incontinence Mixed incontinence urge and stress (male)(female) documented in this encounter Care Teams Shipyard Painting Supervisor Relationship Specialty Start Date End Date Betsy Smith MD [address] [place] [phone] PCP - General 02/08/15 documented as of this encounter
--- OUTSIDE RECORDS SUMMARY | 2024-03-25 02:51 | XMS_ITS | Encounter Summary ---
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 * Telephone Encounter - Belle Bishop MA - 04/10/2019 8:30 AM EST Left VM to call office. * Telephone Encounter - Betsy Smith MD - 04/09/2019 5:31 PM EST Stress test was normal, showing normal heart function. Please continue regular physical activity as she is able to do. * Telephone Encounter - Nakia Benton - 04/09/2019 2:43 PM EST PT had a stress test back in March at [facility]. Pt was wondering if Dr. Smith or a nurse would give her a call and go over those results because she hasn't heard anything since. documented in this encounter Plan of Treatment Upcoming Encounters Date Type Department Care Team (Late st Contact Info) Description 06/09/2024 3:00 PM EST Office Visit [facility] [address] [place] [phone] Betsy Smith MD [address] [place] [phone] documented as of this encounter Visit Diagnoses Not on filedocumented in this encounter Care Teams Infrastructure Engineer Relationship Specialty Start Date End Date Betsy Smith MD [address] [place] [phone] PCP - General 02/08/15 documented as of this encounter
--- OUTSIDE RECORDS SUMMARY | 2024-03-25 02:51 | XMS_ITS | Encounter Summary ---
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 SMITH GIVES THEM TO THE PT TO HAVE THEM DONE AT [facility] BUT SHE DIDN'T RECEIVE ANY LAST TIME; PT WANTS TO KNOW IF SHE NEEDS LABS FOR HER 6 MONTH F/U; IF SO, CAN THEY BE FAXED TO [facility]; PLEASE ADVISE PT. documented in this encounter Plan of Treatment Upcoming Encounters Date Type Department Care Team (Late st Contact Info) Description 06/09/2024 3:00 PM EST Office Visit [facility] [address] [place] [phone] Betsy Smith MD [address] [place] [phone] documented as of this encounter Visit Diagnoses Not on filedocumented in this encounter Care Teams Military Technology Specialist Relationship Specialty Start Date End Date Betsy Smith MD [address] [place] [address] [phone] PCP - General 02/08/15 documented as of this encounter
--- OUTSIDE RECORDS SUMMARY | 2024-03-25 02:51 | XMS_ITS | Encounter Summary ---
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 She can be reached at [phone] documented in this encounter Plan of Treatment Upcoming Encounters Date Type Department Care Team (Late st Contact Info) Description 06/09/2024 3:00 PM EST Office Visit [facility] [address] [place] [phone] Betsy Smith MD [address] [place], [place] [phone] documented as of this encounter Visit Diagnoses Not on filedocumented in this encounter Care Teams Emergency Management Director Relationship Specialty Start Date End Date Betsy Smith MD [address] [place] [phone] PCP - General 02/08/15 documented as of this encounter
--- OUTSIDE RECORDS SUMMARY | 2024-03-25 02:51 | XMS_ITS | Encounter Summary ---
Author Organization [facility] ystem Address [address] [place] [address] Care Team Providers Care Bowling Pin Refinisher Name Role Phone Betsy Smith MD Primary Care Provider [phone] Reason for Visit * Reason Comments Follow-up BP and labs Encounter Details Date Type Department Care Team (Late st Contact Info) Description 07/27/2017 11:15 AM EDT Office Visit [facility] [address] [place] [phone] [place] [address] [place] [address] Hypertension (Primary Dx); Controlled type 2 diabetes mellitus ; Hyponatremia Social History Tobacco Use Types Packs/Day [...] 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 Not on fi le documented as of this encounter Last Filed Vital Signs Vital Sign Reading Time Taken Comments Blood Pressure 140/62 07/27/2017 11:25 AM EDT Pulse 76 07/27/2017 11:25 AM EDT Temperature - - Respiratory Rate 18 07/27/2017 11:25 AM EDT Oxygen Saturation - - Inhaled Oxygen Concentration - - Weight 76.9 kg (169 lb 8 oz) 07/27/2017 11:25 AM EDT Height - - Body Mass Index 25.96 03/06/2017 1:50 PM EDT documented in this encounter Progress Notes * Betsy Smiht MD - 07/27/2017 11:45 AM EDTAssociated Problem(s): Hyponatremia Resolved in 07/22 labs with discontinuation of HCTZ * Betsy Smith MD - 07/27/2017 11:45 AM EDTAssociated Problem(s): Type 2 diabetes mellitus with stage 3b chronic kidney disease, without long-term current use of insulin encouraged reg phys activity to decr insulin resistance, moderation in unhealthy starches/sweets; f/u A1C in 6 mos * Betsy Smith MD - 07/27/2017 11:44 AM EDTAssociated Problem(s): Hypertension BP remains bord with goal < 130/80; BP mildly increased off of HCTZ; remains on amlo/benaz 5/40 QD; plan to eval of improved BP control with increased phys activity in the spring/summer months; agree with joining friends who go to the hospital for senior exercise program; cont home monitoring with goal BP < 130/80 * Betsy Smith MD - 07/27/2017 11:15 AM EDT Chief Complaint Patient presents with ??? Follow-up BP and labs History of Present Illness 82 y.o. woman presents for BP follow-up. Also had done labs for low Na. Home BP readings 120-140s/50-70s, averaging 130s/60s. Notes some increased leg swelling. Denies SOB, CP, palpitations. Wondering whether to increase sodium in her diet; has been eating a fairly low Na diet prior to recent issues with labs. Remains off of HCTZ. Review of Systems ROS (+) for bord BPs. ROS (+) for mild leg swelling. Denies CP, palpitations, SOB, lightheadedness.All other ROS reviewed and negative. [facility] The following portions of the patient's history were reviewed and updated as appropriate: allergies, current medications, past family history, past medical history, past social history, past surgicalhistory and problem list. Current Outpatient Prescriptions: ??? aspirin 81 MG tablet, QD ??? [id number] D PO, 2 QD ??? ezetimibe (ZETIA) 10 MG tablet, QD ??? fluticasone (FLONASE) 50 MCG/ACT nasal spray, AD ??? hydrochlorothiazide (HYDRODIURIL) 25 MG tablet, QD ??? loratadine (LORATADINE ALLERGY RELIEF) 10 MG QD ??? Methylcellulose, Laxative, (MIRAFIBER PO), 2 QD ??? omeprazole (priLOSEC) 40 MG capsule, QD ??? pioglitazone-metFORMIN (ACTOPLUS MET) 15-850 MG per tablet, BID ??? Polyethylene Glycol 3350 (MIRALAX PO), QD ??? amLODIPine-benazepril (LOTREL) 5-40 MG QD VITALS: BP 140/62 (BP Location: Left arm, Patient Position: Sitting) Pulse 76 Resp 18 Wt 76.9 kg (169lb 8 oz) BMI 25.96 kg/m?? Physical Exam Constitutional: She is oriented to person, place, and time. She appears well- developed and well-nourished. Eyes: Conjunctivae and EOM are normal. Cardiovascular: Normal rate, regular rhythm and normal heart sounds. Pulmonary/Chest: Effort normal and breath sounds normal. No respiratory distress. Abdominal: Soft. Bowel sounds are normal. Neurological: She is alert and oriented to person, place, and time. Psychiatric: She has a normal mood and affect. Her behavior is normal. Nursing note and vitals reviewed. LABS 07/24/17 Na 136, TSH 2.87 06/24 A1C 6.3 ASSESSMENT/PLAN Problem List Items Addressed This Visit Diabetes mellitus type II, controlled, with no complications (Chronic) encouraged reg phys activity to decr insulin resistance, moderation in unhealthy starches/sweets; f/u A1C in 6 mos Hypertension - Primary BP remains bord with goal < 130/80; BP mildly increased off of HCTZ; remains on amlo/benaz 5/40 QD; plan to eval of improved BP control with increased phys activity in the spring/summer months; agree with joining friends who go to the hospital for senior exercise program; cont home monitoring with goal BP < 130/80 Hyponatremia Resolved in 07/22 labs with discontinuation of HCTZ Other Visit Diagnoses None. FOLLOW-UP RTC 6 mos with A1C Electronically signed by: Betsy Smith MD 07/27/2017 documented in this encounter Plan of Treatment Upcoming Encounters Date Type Department Care Team (Late st Contact Info) Description 06/09/2024 3:00 PM EST Office Visit [facility] [address] [place] [address] Betsy Smith MD [address] [place] [phone] documented as of this encounter Visit Diagnoses Diagnosis Hypertension- Primary Unspecified essential hypertension Controlled type 2 diabetes mellitus Hyponatremia Hyposmolality and/or hyponatremia documented in this encounter Care Teams Bowling Pin Refinisher Relationship Specialty [place] [address] [place] [phone] PCP - General 02/08/15 documented as of this encounter
--- OUTSIDE RECORDS SUMMARY | 2024-03-25 02:51 | XMS_ITS | Encounter Summary ---
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 Office number given. Records requested from [facility]. * Telephone Encounter - Karuna Sagastume MA - 06/21/2017 4:16 PM EST ----- Message from Betsy Smith MD sent at 06/20/2017 12:22 AM EST ----- Regarding: labs Received labs from [facility] 1) missing B12 - it was in the orders given to patient so pls check with their lab 2) will review results at 06/26/17 OV but sodium is low; please start 1.5L daily fluid restriction and will need to repeat labs when she comes for her appt (nonfasting is good; be hydrated that morning of appt) (save to encounter) documented in this encounter Plan of Treatment Upcoming Encounters Date Type Department Care Team (Late st Contact Info) Description 06/09/2024 3:00 PM EST Office Visit [facility] [address] [place] [phone] Betsy Smith MD [address] [place] [address] [phone] documented as of this encounter Visit Diagnoses Not on filedocumented in this encounter Care Teams Rock Room Worker Relationship Specialty Start Date End Date Betsy Smith MD [address] [place] [address] PCP - General 02/08/15 documented as of this encounter
--- OUTSIDE RECORDS SUMMARY | 2024-03-25 02:51 | XMS_ITS | Encounter Summary ---
Author Organization [facility] ystem Address [address] [place] [address] Care Team Providers Care Superintendent Service Name Role Phone Betsy Smith MD Primary Care Provider [phone] Reason for Visit * Reason Onset Date Comments LABS FOR [facility]- KO 03/04/2019 Encounter Details Date Type Department Care Team (Late st Contact Info) Description 03/04/2019 Telephone [facility] [address] [place] [phone] [place] [address] [place] [address] LABS FOR [facility]- NAKIA Social History Tobacco Use Types Packs/Day Years [...] 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 Pt verbalized understanding. Will fax to [phone]. * Telephone Encounter - Alberta Hewitt RegSched Rep - 03/04/2019 10:03 AM EDT Patient states she has not yet had her labs done for MWV 03/10/19. Patient asking if Dr. Smith would prefer that she reschedule visit to allow time for lab draw, or if we can fax lab orders to [facility] for her to do tomorrow morning. Please advise and return patients call. She asks that you leave voicemail if she is not reached. documented in this encounter Plan of Treatment Upcoming Encounters Date Type Department Care Team (Late st Contact Info) Description 06/09/2024 3:00 PM EST Office Visit [facility] [address] [place] [phone] Betsy Smith MD [address] [place] [phone] documented as of this encounter Visit Diagnoses Not on filedocumented in this encounter Care Teams Superintendent Service Relationship Specialty Start Date End Date Betsy Smith MD [address] [place] [phone] PCP - General 02/08/15 documented as of this encounter
--- OUTSIDE RECORDS SUMMARY | 2024-03-25 02:51 | XMS_ITS | Encounter Summary ---
Author Organization [facility] Address [address] [place] [address] Care Team Providers Care Otolaryngology Teacher Name Role Phone Betsy Smith MD Primary Care Provider [phone] Reason for Referral * Diagnostic Imaging (Routine) - Closed Specialty Diagnoses / Procedures Referred By Mraiza maher Referred To Contact Radiology Diagnoses Visit for screening mammogram Procedures Mammo Screening Digital Tomosynthesis Bilateral With CAD Betsy Smith MD Phone: tel: fax: [facility] [address] [place] [address] Phone: tel: Referral ID Status Reason Start Date Expiration Date Visits Re quested Visits Authorized [id number] Closed 02/05/2019 02/05/2020 1 1 Reason for Visit * Diagnostic Imaging (Routine) - Closed Specialty Diagnoses / Procedures Referred By Mariza maher Referred To Contact Radiology Diagnoses Visit for screening mammogram Procedures Mammo Screening Digital Tomosynthesis Bilateral With CAD Betsy Smith MD Phone: tel: fax: [facility] [address] [place] [address] Phone: tel: Referral ID Status Reason Start Date Expiration Date Visits Re quested Visits Authorized [id number] Closed 02/05/2019 02/05/2020 1 1 Encounter Details Date Type Department Care Team (Latest Contact Info) Description 03/18/2019 1:45 PM EST - 03/18/2019 11:59 PM [facility] Hospital Encounter [facility] [address] [place] [address] Betsy Smith MD [address] [place] [address] Visit for screening mammogram Discharge [...] 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), repeat 1 yr documented in this encounter Plan of Treatment Upcoming Encounters Date Type Department Care Team (Late st Contact Info) Description 06/09/2024 3:00 PM EST Office Visit [facility] [address] [place] [phone] Betsy Smith MD [address] [place] [phone] documented as of this encounter Procedures Procedure Name Priority Date/Time Associated Diagnosis Comments MAMMO SCREENING DIGITAL TOMOSYNTHESIS BILATERAL W CAD Routine 03/18/2019 2:07 PM EST Visit for screening mammogram documented in this encounter Results * Mammo Screening Digital Tomosynthesis Bilateral With CAD (03/18/2019 2:07 PM EST) Anatomical Region Laterality Modality Breast N/A Mammography 03/19/2019 9:17 AM EST Impressions 03/19/2019 9:18 AM EST Negative bilateral mammogram. RECOMMENDATION: ??Continue annual screening mammography. BI-RADS CATEGORY 1, NEGATIVE. CAD was utilized. The standard false-negative rate of mammography is between 10% and 25%. Complex patterns or increased breast density will markedly elevate the false-negative rate of mammography. ?? A letter, in lay terminology, with the results of this exam will be mailed to the patient. ?? This report was finalized on 03/19/2019 9:[address] Christina Mason MD. Narrative 03/19/2019 9:18 AM EST HISTORY: Screening Mammography. Low dose full field digital breast tomosynthesis imaging was performed with 2D and 3D acquisitions consisting of bilateral CC and MLO views. Examination is compared to prior examination dating back to 04/28/2014. Examination is read in conjunction with computer aided detection. FINDINGS: ?? There are scattered areas of fibroglandular density. No suspicious masses, microcalcifications or ??areas of architectural distortion are present. Betsy Smith MD IMG MAMMOGRAPHY ORDERABLES Final Result documented in this encounter Visit Diagnoses Diagnosis Visit for screening mammogram documented in this encounter Care Teams Otolaryngology Teacher Relationship Specialty Start Date End Date Betsy Smith MD [address] [place] [address] PCP - General 02/08/15 documented as of this encounter
--- OUTSIDE RECORDS SUMMARY | 2024-03-25 02:51 | XMS_ITS | Encounter Summary ---
Author Organization [facility] ystem Address [address] [place] [address] Care Team Providers Care Human Resources Team Member Name Role Phone Yvette Smith MD Primary Care Provider [phone] Reason for Visit * Reason Comments Medicare Wellness Encounter Details Date Type Department Care Team (Late st Contact Info) Description 03/06/2017 2:00 PM EDT [facility] Visit [facility] [address] [place] [phone] Yvette Smith MD [address] [place] [id number] Medicare annual wellness visit, subsequent (Primary Dx); Hypertension; Controlled type 2 diabetes mellitus ; CKD (chronic kidney disease), stage III; Hyperlipidemia; Allergic rhinitis; B12 deficiency; Vitamin D deficiency; Bilateral impacted cerumen; Gastroesophageal reflux disease; Osteoporosis; Sensorineural hearing loss (SNHL) of both ears [...] 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 Not on file Not on fi le documented as of this encounter Last Filed Vital Signs Vital Sign Reading Time Taken Comments Blood Pressure 122/74 03/06/2017 1:50 PM EDT Pulse - - Temperature - - Respiratory Rate - - Oxygen Saturation - - Inhaled Oxygen Concentration - - Weight 79.8 kg (176 lb) 03/06/2017 1:50 PM EDT Height 172.1 cm (5' 7.75 ) 03/06/2017 1:50 PM ED T Body Mass Index 26.96 03/06/2017 1:50 PM EDT documented in this encounter Progress Notes * Yvette Smith MD - 03/06/2017 2:50 PM EDTAssociated Problem(s): Sensorineural hearing loss (SNHL) of both ears Discussed that popping/fluid noise in right ear could be attributed to hearing loss; unable to hearfinger rubbing bilaterally, therefore rec audiology evaluation (she will contact the ENT who goes to her town) * Yvette Smith MD - 03/06/2017 2:49 PM EDTAssociated Problem(s): Osteoporosis Calcium and vitamin D supplementation with weight-bearing exercise; DEXA 03/22, consider 2018 * Yvette Smith MD - 03/06/2017 2:49 PM EDTAssociated Problem(s): CKD (chronic kidney disease), stage III Stable renal function; no microalbuminuria * Yvette Smith MD - 03/06/2017 2:48 PM EDTAssociated Problem(s): Type 2 diabetes mellitus with stage 3b chronic kidney disease, without long-term current use of insulin BG control sl worsened but acceptable with A1C 6.2 (prev 5.7); encouraged reg phys activity to decrinsulin resistance, moderation in unhealthy starches/sweets; f/u A1C in 3-4 mos * Yvette Smith MD - 03/06/2017 2:48 PM EDTAssociated Problem(s): B12 deficiency Reviewed role/purpose of B12; rec SL B12 1000mcg QD and f/u level in 3-4 mos * Yvette Smith MD - 03/06/2017 2:48 PM EDTAssociated Problem(s): Vitamin D deficiency Stable with current supplementation - getting 800 units with her calcium supplementation * Yvette Smith MD - 03/06/2017 2:47 PM EDTAssociated Problem(s): Esophageal reflux States sxs controlled with omeprazole 40mg QD, now prescribed by her local doctor * Yvette Smith MD - 03/06/2017 2:47 PM EDTAssociated Problem(s): Allergic rhinitis Has resumed flonase #3, 3RF * Yvette Smith MD - 03/06/2017 2:47 PM EDTAssociated Problem(s): Hypertension BP and electrolytes stable on amlo/benaz 5/40 QD and HCTZ 25mg QD, both #90, 3RF * Yvette Smith MD - 03/06/2017 2:47 PM EDTAssociated Problem(s): Hyperlipidemia Lipids stable on zetia 10mg QD #90, 3RF * Yvette Smith MD - 03/06/2017 2:15 PM EDTAssociated Problem(s): Medicare annual wellness visit, subsequent Health maintenance - flu vacc given today; Prevnar 02/18; PVX 03/16; Tdap 10/15, Zostavax 09/12; mammo to be updated (08/27/15) at [facility]; no further Paps unelss abnlities; DEXA 03/22, [id number]; colonosc 2007, repeat [address] Shen [...] Shen MD as Consulting Physician (Gastroenterology) * Yvette Smith MD - 03/06/2017 2:00 PM EDTAssociated Order(s): ECG 12-LEAD Post-Procedure Diagnose(s): Essential hypertension ANNUAL WELLNESS VISIT DRUG AND ALCOHOL USE no alcohol use, no tobacco use and caffeine intake: 3 cups of caffeinated coffee per day DIET AND PHYSICAL ACTIVITY Diet: general Exercise: infrequently Exercise Details: walking, mow the yard MOOD DISORDER AND COGNITIVE SCREENING Depression Screening Tool Used yes - see PHQ-9 Anxiety Screening Tool Used yes Mini-Cog Performed Yes 1. Tell Patient 3 Words table,car,book 2. Administer Clock Test Abnormal 3. Recall 3 words table,car,book 4. Number Correct Items 3 FUNCTIONAL ABILITY AND LEVEL OF SAFETY Hearing mild hearing loss Wears Hearing Aids No Current Activities Independent none - see Funct/Cog Status Intake Fall Risk Assessment Has difficulty with walking or balance No Timed Up and Go (TUG) Test 6 sec. If >12 sec, normal ADVANCED DIRECTIVE has an advance directive - a copy has been provided and is in file PAIN SCREENING Do you have pain right now? no Recent Hospitalizations: No hospitalization(s) within the last year.. MEDICATION REVIEW - updated and reviewed (see Medication List). - reviewed for potentially harmful drug-disease interactions in the elderly. - reviewed for high risk medications in the elderly. - aspirin use: Yes- on 81mg ASA QD Chief Complaint Patient presents with ??? Medicare Wellness History of Present Illness 82 y.o. woman presents for updated wellness visit. Feels well overall without specific complaints. Notes still has fluid sensation in the right ear without some popping and racking. Notes an ENT goes to her town from [place] once per month and wonders whether consultation would be advised. Denies ear pain. Has used H2O2 and water for ear wax rinsing as previously discussed but has not been consistently with it Nonfasting BGs about 3h pp in the 110s-120s. Review of Systems Denies headaches, visual changes, CP, palpitations, SOB, cough, abd pain, n/v/d, difficulty with urination, vaginal discharge/bleeding, numbness/tingling, falls, mood changes, lightheadedness, rashes. Notes some hearing loss. ROS (+) for fluid sensation in right ear but denies drainage or ear pain; denies assoc'd hearing loss. All other ROS reviewed and negative. [facility] The following portions of the patient's history were reviewed and updated as appropriate: allergies, current medications, past family history, past medical history, past social history, past surgicalhistory and problem list. Current Outpatient Prescriptions: ??? [id number] D PO, Take 2 tablets by mouth Daily. Gives 500mg and vit D 800u daily(at 2 capsules), Disp: , Rfl: ??? amLODIPine-benazepril (LOTREL) 5-40 MG per capsule, [...] into each nostril Every Morning., Disp: 3 bottle, Rfl: 3 ??? hydrochlorothiazide (HYDRODIURIL) 25 MG [...] Disp: 180 tablet, Rfl: 3 VITALS: BP 122/74 Ht 67.75 (172.1 cm) Wt 176 lb (79.8 kg) BMI 26.96 kg/m2 Physical Exam Constitutional: She is oriented to person, place, and time. She appears well- developed and well-nourished. HENT: Head: Normocephalic. Right Ear: External ear normal. Left Ear: External ear normal. Nose: Nose normal. Mouth/Throat: Oropharynx is clear and moist and mucous membranes are normal. No oropharyngeal exudate. bilat aud canals occluded by cerumen; after manual removal of cerumen with instrumentation, TMs intact bilaterally without erythema, bulging or perforation; unable to hear finger rubbing bilaterally Eyes: Conjunctivae and EOM are normal. Pupils are equal, round, and reactive to light. Neck: Normal range of motion. Neck supple. Carotid bruit is not present (bilaterally). No thyromegaly present. Cardiovascular: Normal rate and regular rhythm. Murmur (II/ SM) heard. Pulmonary/Chest: Effort normal and breath sounds normal. No respiratory distress. She has no wheezes. She has no rales. Abdominal: Soft. Bowel sounds are normal. She exhibits no distension and no mass. There is no hepatosplenomegaly. There is no tenderness. Genitourinary: Genitourinary Comments: Breast exam unremarkable without masses, skin changes, nipple discharge, oraxillary adenopathy. Musculoskeletal: Normal range of motion. She exhibits no edema. Tasneem had a diabetic foot exam performed today. Vascular Status - Her exam exhibits no right foot edema. Her exam exhibits no left foot edema. Skin Integrity - Tasneem 's left foot skin is intact. . Lymphadenopathy: She has no cervical adenopathy. Neurological: She is alert and oriented to person, place, and time. She has normal reflexes. She displays normal reflexes. No cranial nerve deficit. Skin: Skin is warm and dry. No rash noted. Psychiatric: She has a normal mood and affect. Her behavior is normal. Nursing note and vitals reviewed. LABS Stable CBC, CMP (Cr 1.1, GFR 48), TSH, lipids, UA, microalb except A1C 6.2, B12 232 Results for orders placed or performed in visit on 11/28/16 POC Glycosylated Hemoglobin (Hb A1C) Result Value Ref Range Hemoglobin A1C 5.7 % ECG 12 Lead Date/Time: 03/06/2017 2:55 PM Performed by: YVETTE SMITH Authorized by: YVETTE SMITH Comparison: compared with previous ECG from 02/29/2016 Similar to previous ECG Rhythm: sinus rhythm Rate: normal BPM: 62 Conduction comments: bord 1st deg AVB ST Segments: ST segments normal QRS axis: normal Other findings comments: inverted T waves V1-2 (new) ASSESSMENT/PLAN Problem List Items Addressed This Visit Esophageal reflux (Chronic) States sxs controlled with omeprazole 40mg QD, now prescribed by her local doctor Diabetes mellitus type II, controlled, with no complications (Chronic) BG control sl worsened but acceptable with A1C 6.2 (prev 5.7); encouraged reg phys activity to decrinsulin resistance, moderation in unhealthy starches/sweets; f/u A1C in 3-4 mos Relevant Medications pioglitazone-metFORMIN (ACTOPLUS MET) 15-850 MG per tablet Other Relevant Orders Hemoglobin A1c Allergic rhinitis (Chronic) Has resumed flonase #3, 3RF Relevant Medications fluticasone (FLONASE) 50 MCG/ACT nasal spray Hyperlipidemia Lipids stable on zetia 10mg QD #90, 3RF Relevant Medications ezetimibe (ZETIA) 10 MG tablet Hypertension BP and electrolytes stable on amlo/benaz 5/40 QD and HCTZ 25mg QD, both #90, 3RF Relevant Medications amLODIPine-benazepril (LOTREL) 5-40 MG per capsule hydrochlorothiazide (HYDRODIURIL) 25 MG tablet Osteoporosis Calcium and vitamin D supplementation with weight-bearing exercise; DEXA 03/22, consider repeating 2018 CKD (chronic kidney disease), stage III Stable renal function; no microalbuminuria Relevant Medications hydrochlorothiazide (HYDRODIURIL) 25 MG tablet Other Relevant Orders Basic Metabolic Panel Vitamin D deficiency Stable with current supplementation - getting 800 units with her calcium supplementation Medicare annual wellness visit, subsequent - Primary Health maintenance - flu vacc given today; Prevnar 02/18; PVX 03/16; Tdap 10/15, Zostavax 09/12; mammo to be updated (08/27/15) at [facility]; no further Paps unelss abnlities; DEXA 03/22, [id number]; colonosc 2007, repeat [address] Shen [...] MD as Consulting Physician (Gastroenterology) B12 deficiency Reviewed role/purpose of B12; rec SL B12 1000mcg QD and f/u level in 3-4 mos Relevant Orders Vitamin B12 Sensorineural hearing loss (SNHL) of both ears Discussed that popping/fluid noise in right ear could be attributed to hearing loss; unable to hearfinger rubbing bilaterally, therefore rec audiology evaluation (she will contact the ENT who goes to her town) Other Visit Diagnoses Bilateral impacted cerumen s/p successful bilat ear cerumen removal with instrumentation; patient tolerated procedure well without complicatons; cont maintenance with H2O2 and water prn FOLLOW-UP RTC 3-4 mos with BMP, A1C, B12 (escribed - lab orders given to patient to do at [facility]) Electronically signed by: Yvette Smith MD 03/06/2017 documented in this encounter Plan of Treatment Upcoming Encounters Date Type Department Care Team (Late st Contact Info) Description 06/09/2024 3:00 PM EST Office Visit [facility] [address] [place] [phone] Yvette Smith MD [address] [place] [address] documented as of this encounter Procedures Procedure Name Priority Date/Time Associated Diagnosis Comments ECG 12-LEAD Routine 03/06/2017 2:56 PM EDT Hypertension documented in this encounter Results * ECG 12-LEAD (03/06/2017 2:56 PM EDT) Narrative Yvette Smith MD - 03/06/2017 2:56 PM EDT Yvette Smith MD ? 03/06/2017 ??2:56 PM ECG 12 Lead Date/Time: 03/06/2017 2:55 PM Performed by: YVETTE SMITH Authorized by: YVETTE SMITH Comparison: compared with previous ECG from 02/29/2016 Similar to previous ECG Rhythm: sinus rhythm Rate: normal BPM: 62 Conduction comments: bord 1st deg AVB ST Segments: ST segments normal QRS axis: normal Other findings comments: inverted T waves V1-2 (new) Yvette Smith MD ECG ORDERABLES Final Result documented in this encounter Visit Diagnoses Diagnosis Medicare annual wellness visit, subsequent- Primary Hypertension Unspecified essential hypertension Controlled type 2 diabetes mellitus CKD (chronic kidney disease), stage III Chronic kidney disease, Stage III (moderate) Hyperlipidemia Pure hypercholesterolemia Allergic rhinitis B12 deficiency Vitamin D deficiency Bilateral impacted cerumen Impacted cerumen Gastroesophageal reflux disease Osteoporosis Sensorineural hearing loss (SNHL) of both ears documented in this encounter Care Teams Human Resources Team Member Relationship Specialty Start Date End Date Yvette Smith MD [address] [place] [address] PCP - General 02/08/15 documented as of this encounter
--- OUTSIDE RECORDS SUMMARY | 2024-03-25 02:51 | XMS_ITS | Encounter Summary ---
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 Not on file Not on fi le documented as of this encounter Progress Notes * Dipesh Bishop MA - 03/04/2019 11:31 AM EDTAddended by: DIPESH BISHOP on: 03/04/2019 11:31 AM Modules accepted: Orders documented in this encounter Miscellaneous Notes * Telephone Encounter - Dipesh Bishop MA - 02/21/2019 1:27 PM EDT Labs ordered documented in this encounter Plan of Treatment Upcoming Encounters Date Type Department Care Team (Late st Contact Info) Description 06/09/2024 3:00 PM EST Office Visit [facility] [address] [place] [phone] Betsy Smith MD [address] [place] [phone] documented as of this encounter Visit Diagnoses Diagnosis Medicare annual wellness visit, subsequent- Primary Hyperlipidemia Pure hypercholesterolemia Hypertension Unspecified essential hypertension Vitamin D deficiency B12 deficiency Type 2 diabetes mellitus with stage 3 chronic kidney disease, without long-term current use of insulin documented in this encounter Care Teams Cadd Manager Relationship Specialty Start Date End Date Betsy Smith MD [address] [place] [phone] PCP - General 02/08/15 documented as of this encounter
--- OUTSIDE RECORDS SUMMARY | 2024-03-25 02:52 | XMS_ITS | Encounter Summary ---
Author Organization [facility] ystem Address [address] [place] [address] Care Team Providers Care Client Application Support Engineer Name Role Phone Unavailable Primary Care Provider Unavailabl e Encounter Details Date Type Department Care Team (Late st Contact Info) Description 06/05/2013 Office Visit Converted [facility] [address] [place] [phone] [place] [address] [place] [phone] Social History Tobacco Use Types Packs/Day Years Used Date Smoking Tobacco: Never Assessed Comments Unknown Sex and Gender Information Value Date Recorded Sex Assigned at Not on file Legal Sex Female 12:10 PM EDT Gender Identity Not on file Sexual Orientation Not on file documented as of this encounter Last Filed Vital Signs Vital Sign Reading Time Taken Comments Blood Pressure 128/80 06/05/2013 11:18 AM EST Pulse - - Temperature - - Respiratory Rate - - Oxygen Saturation - - Inhaled Oxygen Concentration - - Weight 83 kg (183 lb 0.1 oz) 06/05/2013 11:18 AM EST Height 172.7 cm (5' 8 ) 06/05/2013 11:18 AM EST Body Mass Index 27.83 06/05/2013 11:18 AM EST documented in this encounter Progress Notes * Betsy Smith MD - 06/05/2013 11:30 AM EST Chief Complaint FOLLOW UP, DIABETES AND HTN History of Present Illness HPI: pleasant 78yo woman presents for lab follow-up regarding sugars and kidney function.Notes foot pain resolved with therapy. We had thought perhaps kidney function was adversely affected by the pain med. She feels well without CP, palpitations, SOB, abdominal pain, n/v/d. BGs, fastingand nonfasting, are mostly under 100. Doesn't need med RFs today. ROS otherwise negative. Active Problems reviewed - see EHR Current Meds 1. Amlodipine Besy-Benazepril HCl 5-40 MG Oral Capsule; TAKE 1 CAPSULE DAILY Requested for: 04Nov2012; Last Rx:04Nov2012 2. Aspirin 81 MG Oral Tablet; TAKE 1 TABLET DAILY; Therapy: (Recorded:04Nov2012) to 3. Hydrochlorothiazide 25 MG Oral Tablet; 1 po qam Requested for: 04Nov2012; Last Rx:04Nov2012 4. MiraLax Oral Powder; DIRECTED PRN; Therapy: (Recorded:04Nov2012) to 5. Pioglitazone HCl-Metformin HCl 15-850 MG Oral Tablet; Take 1 tablet twice daily with meals Requested for: 04Nov2012; Last Rx:04Nov2012 6. Prevacid SoluTab 30 MG Oral Tablet Dispersible; TAKE 1 TABLET DAILY Requested for: 04Nov2012; Last Rx:04Nov2012 7. Vitamin D3 1000 UNIT Oral Capsule; Therapy: (Recorded:[id number]) to 8. Zetia 10 MG Oral Tablet; TAKE 1 TABLET DAILY Requested for: 04Nov2012; Last Rx:04Nov2012 Allergies 1. Lipitor TABS Vitals Signs [Data Includes: Current Encounter] Systolic: 128, Diastolic: 80, BMI Calculated: 27.74, BSA Calculated: 1.97, Height: 5 ft 8 in, Weight: 183 lb Physical Exam General Complete Exam (Brief): Constitutional General appearance: No acute distress, well appearing and well nourished. Pulmonary Respiratory effort: No increased work of breathing or signs of respiratory distress. Auscultation of lungs: Clear to auscultation. Cardiovascular RRR. Musculoskeletal Gait and station: Normal. Psychiatric Orientation to person, place, and time: Normal. Mood and affect: Normal. Results/Data A1C 6.2 (was 6.3 in 02/16) Assessment 1. Type 2 Diabetes Mellitus - Uncomplicated, Controlled 250.00 2. Hypertension 401.9 3. Renal Insufficiency 593.9 Discussion/Summary Discussion Summary Free Text Note Form: 1.DM II - BG control stable; cont healthy diet and phys activity 2. HTN - BP stable on current meds 3. Renal insufficiency - kidney function remains stable; cont to avoid NSAIDs and drink enough water 4. Foot pain - resolved with PT 5. Next Wellness Visit due after 11/04/13 (lab slip given to patient) Signatures Electronically signed by : Betsy Smith M.D.; Jun 05 2013 11:52AM (Author) documented in this encounter Plan of Treatment Upcoming Encounters Date Type Department Care Team (Late st Contact Info) Description 06/09/2024 3:00 PM EST Office Visit [facility] [address] [place] [phone] [place] [address] [place] [phone] documented as of this encounter Visit Diagnoses Not on filedocumented in this encounter
--- OUTSIDE RECORDS SUMMARY | 2024-03-25 02:52 | XMS_ITS | Encounter Summary ---
Author Organization [facility] ystem Address [address] [place] [address] Care Team Providers Care Christian Science Healer Name Role Phone Unavailable Primary Care Provider Unavailabl e Encounter Details Date Type Department Care Team (Late st Contact Info) Description 02/09/2014 Office Visit Converted [facility] [address] [place] [phone] [place] [address] [place] [address] Social History Tobacco Use Types Packs/Day Years Used Date Smoking Tobacco: Never Assessed Comments Unknown Sex and Gender Information Value Date Recorded Sex Assigned at Not on file Legal Sex Female 12:10 PM EDT Gender Identity Not on file Sexual Orientation Not on file documented as of this encounter Last Filed Vital Signs Vital Sign Reading Time Taken Comments Blood Pressure 124/66 02/09/2014 10:46 AM EDT Pulse - - Temperature - - Respiratory Rate - - Oxygen Saturation - - Inhaled Oxygen Concentration - - Weight 85.3 kg (188 lb 0.1 oz) 02/09/2014 10:46 AM EDT Height 170.2 cm (5' 7 ) 02/09/2014 10:46 AM EDT Body Mass Index 29.45 02/09/2014 10:46 AM EDT documented in this encounter Progress Notes * Betsy Smith MD - 02/09/2014 10:45 AM EDT Chief Complaint ANNUAL WELLNESS History of Present Illness BH Welcome to Medicare and Wellness Visits: The patient is being seen for the subsequent annual wellness visit. Tobacco use: As noted in social history. Alcohol use: As noted in social history. Illicit drug use: As noted in social history. Current diet includes well balanced meals and low carbohydrate food choices. She exercises 2-3 times per week. Exercise: walking, steps doing laundry, picking up walnuts, shopping, mow yard. Depression screening tool used was GERIATRIC DEPRESSION SCALE. She denies feeling down, depressed, or hopeless over the past two weeks. She denies feeling little interest or pleasure in doing things over the past two weeks. Mini Cog Test: Number of correct items recalled: 3 Patient repeated: APPLE, WATCH, BESSY Screen positive for cognitive impairment. Hearing is slightly decreased and a hearing aid is not used. The patient is currently able to do activities of daily living without limitations. Fall risk factors: cognitive impairment and antihypertensive use, but no previous fall, no mobilityimpairment, no visual impairment, no polypharmacy, no alcohol use, no antidepressant use, no sedative use, no deconditioning, no postural hypotension, up and go test was normal and no urinary incontinence. Fall Risk Assessment: Fall Risk Assessment: Have you had two or more falls in the past 12 months? No Do you have difficulty with walking or balance? No. Record time:6 seconds Home safety risk factors: household clutter, poor household lighting, no grab bars in the bathroom and grandkids, but no loose rugs, no uneven floors, no unfamiliar surroundings and handrails on the stairs. Advance directives: no living will and no durable power of immigration attorney for health care directives. Endof life decisions were reviewed with the patient and I agree with the patient's decisions. Concernswith the patient's end of life decisions: no heroic measures. HPI: pleasant 78yo woman presents for updated wellness exam. Feels well overall, noting chronic constipation. Notes decreased efficacy of miralax, wondering whether her body is getting usedto it. Wonders about the new drug available. Denies headaches, CP, palpitations, SOB, abdominal pain, n/v/d, vaginal bleeding, numbness/tingling, falls, lightheadedness. Notes significant improved vision and color vision after cataract surgery 11/17 and 12/18. All other ROS reviewed and negative; does not need med RFs today. Active Problems 1. Anal fissure (565.0) 2. Bone Pain In The Leg (Below The Knee) 3. Constipation (564.00) 4. Diabetes mellitus type II, controlled, with no complications (250.00) 5. Diverticulosis of colon (562.10) ?? colonoscopy 09/11 , GI - Dr. Shen (previously Dr. Egan) 6. Esophageal reflux (530.81) 7. Hyperlipidemia (272.4) 8. Hypertension (401.9) 9. Osteoarthritis (715.90) 10. Osteopenia (733.90) ?? by DEXA (04/10); DEXA (11/16) L -0.1, H -1.8 11. Renal insufficiency (593.9) 12. Stress incontinence in female (625.6) 13. Vitamin d deficiency (268.9) Past Medical History ?? Denied: History of Aneurysm Of The Abdominal Aorta ?? neg AAA screening U/S (12/15) ?? 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 colonoscopy () per Dr. Egan ?? History of Bone Density Studies ?? DEXA 11/16: L -0.1, H -1.8 ?? History of Cataract (366.9) ?? History of herpes zoster (V12.09) ?? L. forehead(') ?? History of Right Shoulder Fracture (818.0) ?? Onset Date: 1999 ?? secondary to work injury; no surgery done Surgical History ?? History of Cataract Surgery ?? s/p R (11/17) and L (12/18) cataract surgery; ophtho - Dr. Duque ?? History of Laminectomy Lumbar ?? Procedure Date: 06 Jan 1960 ?? L5-S1 laminectomy ?? History of Tonsillectomy Family History ?? Family history of Diabetes Mellitus (V18.0) ?? Family history of Mother At Age 92 ?? Family history of Renal Failure ?? Family history of Congestive Heart Failure ?? Family history of Father At Age 87 Social History ?? Being A Social Drinker ?? Marital History - ?? Never smoked tobacco ?? 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 Amlodipine Besy-Benazepril HCl - 5-40 MG Oral Capsule; TAKE 1 CAPSULE DAILY Requested for: [id number]; Last Rx:[id number] Ordered 2. Aspirin 81 MG Oral Tablet; TAKE 1 TABLET DAILY; Therapy: (Recorded:[id number]) to Recorded 3. Hydrochlorothiazide 25 MG Oral Tablet; 1 po qam Requested for: 59Nej5735; Last Rx:[id number] Ordered 4. MiraLax Oral Powder; DIRECTED PRN; Therapy: (Recorded:[id number]) to Recorded 5. Pioglitazone HCl-Metformin HCl - 15-850 MG Oral Tablet; Take 1 tablet twice daily with meals Requested for: 21Nov2013; Last Rx:[id number] Ordered 6. Prevacid SoluTab 30 MG Oral Tablet Dispersible; TAKE 1 TABLET DAILY Requested for: 21Nov2013; Last Rx:[id number] Ordered 7. Vitamin D3 1000 UNIT Oral Capsule; 2 PO QD; Therapy: (Recorded:09Feb2014) to Recorded 8. Zetia 10 MG Oral Tablet; TAKE 1 TABLET DAILY Requested for: [id number]; Last Rx:[id number] Ordered Allergies 1. Lipitor TABS Immunizations 1 2 Influenza 04/08/1224Feb2013 Pneumococcal 03/30/10 Tdap 10/05/10 Zoster 09/24/08 Vitals Signs [Data Includes: Current Encounter] Systolic: 124 Diastolic: 66 Height: 5 ft 7 in Weight: 188 lb BMI Calculated: 29.45 BSA Calculated: 1.97 Results/Data 08/18 A1C 6.2 AWAITING LABS FROM [facility] ADDENDUM - stable CBC, CMP, TSH, microalb, UA, lipids (TC 159, TG 53, HDL 70, LDL 78); A1C 6.1 ECG Results and Interpretation: dx: 401.9 Rhythm and rate:. Normal sinus rhythm. Ventricular rate is 68 beats per minute. P-waves:. MD interval is normal. QRS: the QRS is normal ST segment: The ST segments are normal. Assessment 1. Encounter for preventive health examination (V70.0) 2. Hypertension (401.9) ?? BP and electrolytes stable on amlo/benaz #90, 3RF and HCTZ #90, 3RF; low Na diet 3. Hyperlipidemia (272.4) ?? await lipids with goal LDL < 100 ADDENDUM: lipids at goal on zetia #90, 3RF 4. Diabetes mellitus type II, controlled, with no complications (250.00) ?? await A1C ADDENDUM: stable BG control/A1C; cont healthy diet and phys activity with current dose actoplusmet BID #180, 3RF; repeat A1C in 6 mos 5. Vitamin d deficiency (268.9) ?? stable with current supplementation 6. Constipation (564.00) ?? discussed other RX options to include amitiza and linzess; she opts to cont miralax QD; advised adequate fiber and water intake daily with reg phys activity 7. Esophageal reflux (530.81) ?? stable on prevacid solutab #90, 3RF Plan Health Maintenance ?? High-Dose Intramuscular Suspension Discussion/Summary Medication Review and medication list updated Medication Review for potentially harmful drug-disease interactions in the elderly Medication Review for use of high-risk medications in the elderly Aspirin Use discussion takes 81mg ASA QD 1. Health maintenance - flu vaccine given today; PVX 03/16, Tdap 10/15, Zostavax 09/12; mammo ordered; no further Paps unless abnlities; DEXA 11/16, to be repeated 2015; nl colonoscopy 08/[address] Shen; eye exam UTD 11/17 with bilat cataract surgery 2. Consultants: ophtho - Dr. Duque, GI - Dr. Shen 3. F/U in 6 mos or earlier as needed; will let her know labs results when available Signatures Electronically signed by : Betsy Smith M.D.; Feb 09 2014 2:12PM EST (Author) documented in this encounter Miscellaneous Notes * Letter - Betsy Smith MD - 02/09/2014 10:45 AM EDT Dear Ms. Espinosashiraangus, It was a pleasure seeing you in the office. We finally received your laboratory results, and I would like to review them with you. Your blood counts, electrolytes, and urinalysis are within normal limits. This indicates no anemia,no bladder infection, as well normal liver and kidney function. Your thyroid hormone and vitamin D levels are normal as well. Your hemoglobin A1C, the 3-month average of blood sugars, is stable at 6.1. Goal is < 6.5. You should continue your current dose of vitamin D and pioglitazone/metformin. Your lipid profile shows a total cholesterol of 159. Goal for total cholesterol is < 200. Your HDL, the good cholesterol, is great at 70. HDL is heart protective, and the goal is > 50 in women.Your LDL, the bad cholesterol, is excellent at 78. Goal for LDL is < 100. Your triglycerides arevery good at 53, with a goal < 150. You should remain on zetia daily. Overall your laboratories are stable. Please let me know if you have any questions/concerns regarding these results; otherwise, I will see you back in 6 months for a diabetes follow-up. You will not need to do labs ahead of time for that visit. We can just do your A1C, the diabetes test, in the office. Sincerely, Betsy Smith MD Electronically signed by : Betsy Smith M.D.; Feb 09 2014 9:31PM EST (Author) documented in this encounter Plan of Treatment Upcoming Encounters Date Type Department Care Team (Late st Contact Info) Description 06/09/2024 3:00 PM EST Office Visit [facility] [address] [place] [phone] Betsy Smith MD [address] [place] [phone] documented as of this encounter Visit Diagnoses Not on filedocumented in this encounter
--- OUTSIDE RECORDS SUMMARY | 2024-03-25 02:52 | XMS_ITS | Encounter Summary ---
Author Organization [facility] yste Address [address] [place] [address] Care Team Providers Care Computational Scientist Name Role Phone Betsy Smith MD Primary Care Provider [phone] Encounter Details Date Type Department Care Team (Late st Contact Info) Description 08/16/2015 Documentation Converted [facility] HISTOR[facility] CON[facility] [address] [place] [phone] Social History Tobacco Use Types Packs/Day Years Used Date Smoking Tobacco: Never Assessed Comments Unknown Sex and Gender Information Value Date Recorded Sex Assigned at Not on file Legal Sex Female 12:10 PM EDT Gender Identity Not on file Sexual Orientation Not on file documented as of this encounter Last Filed Vital Signs Vital Sign Reading Time Taken Comments Blood Pressure 124/64 08/16/2015 11:02 AM EDT Pulse - - Temperature - - Respiratory Rate - - Oxygen Saturation - - Inhaled Oxygen Concentration - - Weight 79.4 kg (175 lb) 08/16/2015 11:02 AM EDT Height - - Body Mass Index 27.41 02/12/2015 11:04 AM EDT documented in this encounter Progress Notes * Betsy Smith MD - 08/16/2015 11:01 AM EDT Chief Complaint F/U on diabetes History of Present Illness HPI: 80yo woman presents for diabetes follow-up. Feels well overall except notes R. ear still nothers her. Notes inability to pop R. ear while blowing with her nose. Concerned about residual ear wax that she hasn't been able to remove. Notes some muffled hearing. Denies nasal congestionand is not taking allergy meds, including nasal sprays. All other ROS reviewed and negative. Active Problems 1. Allergic rhinitis (477.9) (J30.9) ?? Last Impression: 10 Aug 2014 rec more aggressive symptomatic therapy with antihistamine and nasal steroid spray; reviewed how to use correctly Betsy Smith (Internal Medicine) 2. Anal fissure (565.0) (K60.2) 3. bone pain in the leg (below the knee) 4. Cerumen impaction (380.4) (H61.20) ?? Last Impression: 16 Aug 2015 R. cerumen impaction, s/p disimpaction in the office today with instrumentation, no complications Betsy Smith (Internal Medicine) 5. Constipation (564.00) (K59.00) ?? Last Impression: 09 Feb 2014 discussed other RX options to include amitiza and linzess; she opts to cont miralax QD; advised adequate fiber and water intake daily with reg phys activity Betsy Smith (Internal Medicine) 6. Diverticulosis of colon (562.10) (K57.30) ?? colonoscopy 09/11 , GI - Dr. Shen (previously Dr. Egan) 7. Ecchymosis (459.89) (R58) ?? Last Impression: 12 Feb 2015 most likely attributed to ASA 81mg QD; follow clinically Betsy Smith (Internal Medicine) 8. Esophageal reflux (530.81) (K21.9) ?? Last Impression: 12 Feb 2015 change prevacid solutba to lansoprazole 30mg QD #90, 3RF due to cost Betsy Smith (Internal Medicine) 9. Hyperlipidemia (272.4) (E78.5) ?? Last Impression: 12 Feb 2015 check lipids on zetia Betsy Smith (Internal Medicine) 10. Hypertension (401.9) (I10) ?? Last Impression: 16 Aug 2015 BP stable Betsy Smith (Internal Medicine) 11. Osteoarthritis (715.90) (M19.90) 12. Osteopenia (733.90) (M85.80) ?? by DEXA (04/10); DEXA (11/16) L -0.1, H -1.8 ?? Last Impression: 12 Feb 2015 Ca/vit D and WBE; repeat DEXA 2015 Betsy Smith (Internal Medicine) 13. Renal insufficiency (593.9) (N28.9) ?? Last Impression: 12 Feb 2015 stable renal function Betsy Smith (Internal Medicine) 14. Stress incontinence in female (625.6) (N39.3) 15. Vitamin d deficiency (268.9) (E55.9) ?? Last Impression: 12 Feb 2015 stable with current supplementation Betsy Smith (Internal Medicine) Diabetes mellitus type II, controlled, with no complications (250.00) (E11.9) - Last Impression: 12 Feb 2015 BG control stable/improved; remains on actoplusmet; f/u in 6 mos with A1C Betsy Smith (Internal Medicine) Past Medical History ?? Denied: History of aneurysm of abdominal aorta ?? neg AAA screening U/S (12/15) ?? History of benign polyps of the large intestine (V12.72) ?? colonoscopy (') per Dr. Egan ?? History of Bone Density Studies ?? DEXA 11/16: L -0.1, H -1.8 ?? History of Cataract (366.9) (H26.9) ?? s/p bilat cataract surgery (11/17 and 12/18); ophtho - Dr. Duque ?? History of herpes zoster (V12.09) (Z86.19) ?? L. forehead(') ?? History of right shoulder fracture (818.0) ?? secondary to work injury; no surgery done Surgical History ?? History of Cataract Surgery ?? s/p R (11/17) and L (12/18) cataract surgery; ophtho - Dr. Duque ?? History of Laminectomy Lumbar ?? L5-S1 laminectomy ?? History of Tonsillectomy Family History ?? Family history of diabetes mellitus (V18.0) ?? Family history of mother at age 92 ?? Family history of renal failure ?? Family history of congestive heart failure ?? Family history of father at age 87 Social History ?? being a social drinker ?? marital history - ?? Never smoked tobacco (Z78.9) ?? 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 Aspirin 81 MG Oral Tablet TAKE 1 TABLET DAILY. Hydrochlorothiazide 25 MG Oral Tablet 1 po qam Lansoprazole 30 MG Oral Capsule Delayed Release TAKE 1 CAPSULE EVERY MORNING DAILY. MiraLax Oral Powder DIRECTED PRN Pioglitazone HCl-Metformin HCl - 15-850 MG Oral Tablet Take 1 tablet twice daily with meals Vitamin D3 1000 UNIT Oral Capsule 2 PO QD Zetia 10 MG Oral Tablet TAKE 1 TABLET DAILY. Allergies 1. Lipitor TABS Vitals Signs [Data Includes: Current Encounter] Systolic: 124 Diastolic: 64 Weight: 175 lb BMI Calculated: 27.41 BSA Calculated: 1.91 Physical Exam BH Complete Multi-System Exam (Brief): Constitutional General appearance: No acute distress, well appearing and well nourished. Eyes Conjunctiva and lids: No swelling, erythema or discharge. Pupils and irises: Equal, round and reactive to light. Ears, Nose, Mouth, and Throat External inspection of ears and nose: Normal. Nasal mucosa pale, mod swollen bilaterally L>R. Otoscopic examination: Abnormal. Mild-mod cerumen in the R. aud canal, removed with ear scoop in the office, mild fluid behind bilateral TMs without erythema. Oropharynx: Normal with no erythema, edema, exudate or lesions. Pulmonary Respiratory effort: No increased work of breathing or signs of respiratory distress. Auscultation of lungs: Clear to auscultation. Cardiovascular RRR. Musculoskeletal Gait and station: Normal. Psychiatric Orientation to person, place, and time: Normal. Mood and affect: Normal. Results/Data A1C 6.0 Discussion/Summary Discussion Summary: 1. Health maintenance - mammo order given to patient 2. Next Wellness due after 02/13/16; fasting labs the week prior to appt ([facility] Assessment 1. Diabetes mellitus type II, controlled, with no complications (250.00) (E11.9) ?? BG control stable on current meds; f/u A1C in 6 mos 2. Hypertension (401.9) (I10) ?? BP stable 3. Cerumen impaction (380.4) (H61.20) ?? R. cerumen impaction, s/p disimpaction in the office today with instrumentation, no complications 4. Dysfunction of right Eustachian tube (381.81) (H69.81) ?? rec flonase NS #3, 1RF, reviewed how to use correctly Plan Constipation ?? TSH; Status:Hold For - Specimen Collection and/or Additional Processing; Requested for:15Feb2016; Diabetes mellitus type II, controlled, with no complications ?? CMP; Status:Hold For - Specimen Collection and/or Additional Processing; Requested for:15Feb2016; ?? Hemoglobin A1C; Status:Hold For - Specimen Collection and/or Additional Processing; Requested for:15Feb2016; ?? Microalbumin Creatinine Ratio; Status:Hold For - Specimen Collection and/or Additional Processing; Requested for:15Feb2016; ?? Urinalysis ( UA ) w Microscopic Indicated; Status:Hold For - Specimen Collection and/or Additional Processing; Requested for:15Feb2016; Dysfunction of right Eustachian tube ?? Propionate 50 MCG/ACT Nasal Suspension; USE 2 SPRAYS IN EACH NOSTRIL QAM Esophageal reflux ?? CBC With Auto Diff; Status:Hold For - Specimen Collection and/or Additional Processing; Requested for:15Feb2016; Hyperlipidemia ?? Lipid Profile ( Comprehensive Panel ); Status:Hold For - Specimen Collection and/or Additional Processing; Requested for:15Feb2016; the Patient Fasting: : Yes - Y Vitamin d deficiency ?? Vitamin D 25 OH ( Hydroxy ); Status:Hold For - Specimen Collection and/or Additional Processing; Requested for:15Feb2016; Signatures Electronically signed by : Betsy Smith M.D.; Aug 16 2015 12:04PM EST (Author) documented in this encounter Plan of Treatment Upcoming Encounters Date Type Department Care Team (Late st Contact Info) Description 06/09/2024 3:00 PM EST Office Visit [facility] INTERNAL MEDICINE [address] [place] [phone] Betsy Smith MD [address] [place] [phone] documented as of this encounter Visit Diagnoses Not on filedocumented in this encounter Care Teams Computational Scientist Relationship Specialty Start Date End Date Betsy Smith MD [address] [place] [address] PCP - General 02/08/15 documented as of this encounter
--- OUTSIDE RECORDS SUMMARY | 2024-03-25 02:52 | XMS_ITS | Encounter Summary ---
Author Organization [facility] ystem Address [address] [place] [address] Care Team Providers Care Detective Bureau Chief Name Role Phone Betsy Smith MD Primary Care Provider [phone] Encounter Details Date Type Department Care Team (Late st Contact Info) Description 09/23/2015 Telephone [facility] INTERNAL MEDICINE [address] [place] [phone] [place] [address] [place] [phone] Social History Tobacco Use Types Packs/Day Years Used Date Smoking Tobacco: Never Assessed Comments Unknown Sex and Gender Information Value Date Recorded Sex Assigned at Not on file Legal Sex Female 12:10 PM EDT Gender Identity Not on file Sexual Orientation Not on file documented as of this encounter Miscellaneous Notes * Telephone Encounter - Jacob Smith LPN - 09/23/2015 2:33 PM EDT Patient notified and had no further questions. * Telephone Encounter - Jacob Smith LPN - 09/23/2015 2:33 PM EDT ----- Message from Jacob Smith LPN sent at 09/23/2015 11:44 AM EDT ----- Lm on vm for patient to call back. ----- Message ----- From: Betsy Smith MD Sent: 09/22/2015 9:11 PM To: Jacob Smith LPN Mammo was stable, repeat in 1 year pls tell her we did not send her results because [facility] notes they sent her a letter regarding the results already ----- Message ----- From: Jacob Smith LPN Sent: 09/22/2015 3:28 PM To: Betsy Smith MD This is in chart, please advise. ----- Message ----- From: Pratima Ledesma Sent: 09/22/2015 2:19 PM To: Betito Bloodmont Clinical Pool WOULD LIKE RESULTS OF MAMMO THAT WAS DONE 08/27/15 AT [facility] RESULT WERE MAILED documented in this encounter Plan of Treatment Upcoming Encounters Date Type Department Care Team (Late st Contact Info) Description 06/09/2024 3:00 PM EST Office Visit [facility] INTERNAL MEDICINE [address] [place] [phone] Betsy Smith MD [address] [place] [phone] documented as of this encounter Visit Diagnoses Not on filedocumented in this encounter Care Teams Detective Bureau Chief Relationship Specialty Start Date End Date Betsy Smith MD [address] [place] [id number] PCP - General 02/08/15 documented as of this encounter
--- OUTSIDE RECORDS SUMMARY | 2024-03-25 02:52 | XMS_ITS | Encounter Summary ---
[facility] Address [address] [place] [address] Care Team Providers Care Television Presenter Name Role Phone Yvette Smith MD Primary Care Provider [phone] Reason for Referral * Diagnostic Imaging (Routine) - Closed Specialty Diagnoses / Procedures Referred By Contac t Referred To Contact Radiology Diagnoses Osteopenia Procedures DEXA Bone Density Axial Yvette Smith MD Phone: tel: fax: [address] [address] Phone: tel: Referral ID Status Reason Start Date Expiration Date Visits Re quested Visits Authorized [id number] Closed 02/29/2016 08/27/2016 1 1 Reason for Visit * Reason Comments Wellness Exam Cold sx x1 week Encounter Details Date Type Department Care Team ([facility] Contact Info) Description 02/29/2016 2:00 PM EDT Office Visit [facility] [address] [place] [phone] Yvette Smith MD [address] [place] [phone] Medicare annual wellness visit, subsequent (Primary Dx); Essential hypertension; Controlled type 2 diabetes mellitus ; Hyperlipidemia; CKD (chronic kidney disease), stage III; Osteopenia; Constipation; Allergic rhinitis; Gastroesophageal reflux disease; Sinusitis Social History Tobacco Use Types Packs/Day Years [...] Reading Time Taken Comments Blood Pressure 118/60 02/29/2016 1:54 PM EDT Pulse 69 02/29/2016 1:54 PM EDT Temperature 37 ??C (98.6 ??F) 02/29/2016 1:54 PM EDT Respiratory Rate - - Oxygen Saturation 100% 02/29/2016 1:54 PM EDT Inhaled Oxygen Concentration - - Weight 78.9 kg (174 lb) 02/29/2016 1:54 PM EDT Height 172.7 cm (5' 8 ) 02/29/2016 1:54 PM EDT Body Mass Index 26.46 02/29/2016 1:54 PM EDT documented in this encounter Progress Notes * Yvette Smith MD - 02/29/2016 3:21 PM EDTAssociated Problem(s): Constipation D/c miralax due to soft stools; if gets hard stools again, rec colace as stool softener; in the interim, stay consistent with fiber supplementation and increase daily water intake * Yvette Smith MD - 02/29/2016 3:20 PM EDTAssociated Problem(s): Allergic rhinitis Reviewed again how to use flonase #3, 3RF correctly * Yvette Smith MD - 02/29/2016 2:48 PM EDTAssociated Problem(s): Medicare annual wellness visit, subsequent Health Maintenance - flu vaccine given today, Prevnar 02/18, PVX 03/16, Tdap 10/15, Zostavax 09/12; mammogram 2015 - will request from [facility]; no further Paps unless abnlities; DEXA ordered (last 11/16); colonoscopy 08/12, repeat [address] Shen; eye exam to be updated with Dr. Duque; rec updated dental exam Patient Care Team: Yvette Smith MD as PCP - General Ed Duque MD as Consulting Physician (Ophthalmology) Julito Shen MD as Consulting Physician (Gastroenterology) * Yvette Smith MD - 02/29/2016 2:46 PM EDTAssociated Problem(s): Hyperlipidemia lipids stable on zetia 10mg QD #90,3 RF * Yvette Smith MD - 02/29/2016 2:46 PM EDTAssociated Problem(s): CKD (chronic kidney disease), stage III Renal function stable; avoid NSAIDs; on ACEI (benaz) for nephroprotective effects * Yvette Smith MD - 02/29/2016 2:46 PM EDTAssociated Problem(s): Type 2 diabetes mellitus with stage 3b chronic kidney disease, without long-term current use of insulin BG control remains good/stabl without hypoglycemia on actoplusmet 15/850 BID #180, 3RF; healthy nutrition and phys activity as tolerated * Yvette Smith MD - 02/29/2016 2:45 PM EDTAssociated Problem(s): Hypertension BP stable on HCTZ 25mg QD #90, 3RF and amlodipine benaz 5/40 QD #90, 3RF * Yvette Smith MD - 02/29/2016 2:05 PM EDTAssociated Order(s): ECG 12-LEAD Post-Procedure Diagnose(s): Essential hypertension ANNUAL WELLNESS VISIT DRUG AND ALCOHOL USE no alcohol use, no tobacco use, caffeine: coffee 4 cups a day DIET AND PHYSICAL ACTIVITY Diet: general Exercise: several times per week Exercise Details: walking, mowing lawn MOOD DISORDER AND COGNITIVE SCREENING Depression Screening [...] If >12 sec, normal ADVANCED DIRECTIVE has NO advanced directive - information provided to the patient today PAIN SCREENING Do you have pain right now Recent Hospitalizations: No recent hospitalization(s).. MEDICATION REVIEW - updated and reviewed (see Medication List). - reviewed for potentially harmful drug-disease interactions in the elderly. - reviewed for high risk medications in the elderly. - aspirin use: Yes On 81mg QD ASA Chief Complaint Patient presents with ??? Wellness Exam Cold sx x1 week History of Present Illness 80 y.o. woman presents for updated wellness visit. Complains of cold sxs that started yesterday. Notes going to [facility] in [place] with daughter and exposed to weather and germs. Reports ears being stopped up, left side runny nose and right side stopped up nose. Has some phlegm but no significant cough. HAs not had fevers. Review of Systems Denies headaches, visual changes, CP, palpitations, SOB, abd pain, n/v/d, difficulty with urination, vaginal discharge/bleeding, numbness/tingling, falls, mood changes, lightheadedness, hearing changes, rashes. ROS (+) for loose stools. Uses miralax once every few days. Notes h/o hard stools; not having trouble with making BMs. No blood in the stools. All other ROS reviewed and negative. [...] by mouth Daily., Disp: , Rfl: ??? fluticasone (FLONASE) 50 MCG/ACT nasal spray, 2 sprays into each nostril Every Morning., Disp: 3 each, Rfl: 3 ??? hydrochlorothiazide (HYDRODIURIL) 25 MG tablet, Take 1 tablet by mouth Daily., Disp: 90 tablet,Rfl: 3 ??? lansoprazole (PREVACID) 30 MG capsule, Take 1 capsule by mouth Daily., Disp: 90 capsule, Rfl: 3 ??? pioglitazone-metFORMIN (ACTOPLUS MET) 15-850 MG per tablet, Take 1 tablet by mouth 2 (Two) Times a Day With Meals., Disp: 180 tablet, Rfl: 3 ??? polyethylene glycol (MIRALAX) powder, Take by mouth. 1 capful every morning., Disp: , Rfl: ??? ezetimibe (ZETIA) 10 MG tablet, Take 1 tablet by mouth Daily., Disp: 90 tablet, Rfl: 3 Visit Vitals ??? BP 118/60 ??? Pulse 69 ??? Temp 98.6 ??F (37 ??C) ??? Ht 68 (172.7 cm) ??? Wt 174 lb (78.9 kg) ??? SpO2 100% ??? BMI 26.46 kg/m2 Physical Exam Constitutional: She is oriented to person, place, and time. She appears well- developed and well-nourished. HENT: Head: Normocephalic. Right Ear: Tympanic membrane and external ear normal. Left Ear: Tympanic membrane and external ear normal. Nose: Nose normal. Mouth/Throat: Oropharynx is clear and moist and mucous membranes are normal. No oropharyngeal exudate (posterior drainage without exudate). Nasal mucosa mod swollen bilaterally Eyes: Conjunctivae and EOM are normal. Pupils are equal, round, and reactive to light. Neck: Normal range of motion. Neck supple. Carotid bruit is not present. No thyromegaly present. Cardiovascular: Normal rate and regular rhythm. Murmur (II/ SM RUSB) heard. Pulmonary/Chest: Effort normal and breath sounds normal. No respiratory distress. She has no wheezes. She has no rales. Abdominal: Soft. Bowel sounds are normal. She exhibits no distension and no mass. There is no hepatosplenomegaly. There is no tenderness. Musculoskeletal: Normal range of motion. She exhibits no edema. Lymphadenopathy: She has no cervical adenopathy. Neurological: She is alert and oriented to person, place, and time. She has normal strength and normal reflexes. She displays normal reflexes. No cranial nerve deficit or sensory deficit. Skin: Skin is warm and dry. No rash noted. Psychiatric: She has a normal mood and affect. Her behavior is normal. Nursing note and vitals reviewed. LABS Stable CBC, CMP (FG 99, Cr 1.1, GFR 48, Na 130), TSH, lipids TC 170, TG 51, HDL 85, LDL 74.8 A1C 5.7 today 02/18 Cr 1.3, GFR 42 ECG 12 Lead Date/Time: 02/29/2016 3:17 PM Performed by: YVETTE SMITH Authorized by: YVETTE SMITH Comparison: compared with previous ECG from 02/12/2015 Similar to previous ECG Rhythm: sinus rhythm Rate: normal BPM: 72 Conduction: conduction normal Conduction comments: Bord 1st AVB ST Segments: ST segments normal T Waves: T waves normal QRS axis: normal Clinical impression comment: stable EKG ASSESSMENT/PLAN Problem List Items Addressed This Visit Hyperlipidemia (Chronic) lipids stable on zetia 10mg QD #90,3 RF Relevant Medications ezetimibe (ZETIA) 10 MG tablet Esophageal reflux (Chronic) Relevant Medications lansoprazole (PREVACID) 30 MG capsule Diabetes mellitus type II, controlled, with no complications (Chronic) BG control remains good/stabl without hypoglycemia on actoplusmet 15/850 BID #180, 3RF; healthy nutrition and phys activity as tolerated Relevant Medications pioglitazone-metFORMIN (ACTOPLUS MET) 15-850 MG per tablet Other Relevant Orders POC Glycosylated Hemoglobin (Hb A1C) (Completed) Hemoglobin A1c Hypertension (Chronic) BP stable on HCTZ 25mg QD #90, 3RF and amlodipine benaz 5/40 QD #90, 3RF Relevant Medications hydrochlorothiazide (HYDRODIURIL) 25 MG tablet amLODIPine-benazepril (LOTREL) 5-40 MG per capsule Other Relevant Orders Basic Metabolic Panel ECG 12 Lead Osteopenia (Chronic) Relevant Orders DEXA Bone Density Axial Allergic rhinitis (Chronic) Reviewed again how to use flonase #3, 3RF correctly Relevant Medications fluticasone (FLONASE) 50 MCG/ACT nasal spray Constipation D/c miralax due to soft stools; if gets hard stools again, rec colace as stool softener; in the interim, stay consistent with fiber supplementation and increase daily water intake CKD (chronic kidney disease), stage III Renal function stable; avoid NSAIDs; on ACEI (benaz) for nephroprotective effects Relevant Medications hydrochlorothiazide (HYDRODIURIL) 25 MG tablet Medicare annual wellness visit, subsequent - Primary Health Maintenance - flu vaccine given today, Prevnar 02/18, PVX 03/16, Tdap 10/15, Zostavax 09/12; mammogram 2015 - will request from [facility]; no further Paps unless abnlities; DEXA ordered (last 11/16); colonoscopy 08/12, repeat [address] Shen; eye exam to be updated with Dr. Duque; rec updated dental exam Patient Care Team: Yvette Smith MD as PCP - General Ed Duque MD as Consulting Physician (Ophthalmology) Julito Shen MD as Consulting Physician (Gastroenterology) Other Visit Diagnoses Sinusitis cont flonase, add antihistamine, nasal saline spray, and prn mucinex; drink more water; f/u if no better FOLLOW-UP RTC 6 mos with A1C, BMP (lab order given to patient) documented in this encounter Plan of Treatment Upcoming Encounters Date Type Department Care Team (Late st Contact Info) Description 06/09/2024 3:00 PM EST Office Visit [facility] [address] [place] [phone] [place] [address] [place] [address] [phone] documented as of this encounter Procedures Procedure Name Priority Date/Time Associated Diagnosis Comments ECG 12-LEAD Routine 02/29/2016 4:18 PM EDT Essential hypertension POCT GLYCOSYLATED HEMOGLOBIN (HGB A1C) Routine 02/29/2016 2:44 PM EDT Controlled type 2 diabetes mellitus documented in this encounter Results * DEXA [...] fall-prevention measurements. The National Osteoporosis Foundation recommends (http://www.nof.org/hcp/practice/jruuqvcv-ohn-dgsmtmtb-guidelines/clinic ans-guide) that FDA-approved medical therapies be considered [...] fall-prevention measurements. The National Osteoporosis Foundation recommends (http://www.nof.org/hcp/practice/rlezjurg-vlh-nwsonomp-guidelines/clinic ans-guide) that FDA-approved medical therapies be considered [...] 1:[address] Beverly Patino MD. Yvette Smith MD IMG DXA ORDERABLES Final Result * ECG 12-LEAD (02/29/2016 4:18 PM EDT) Narrative Yvette Smith MD - 02/29/2016 4:18 PM EDT Yvette Smith MD ? 02/29/2016 ??4:18 PM ECG 12 Lead Date/Time: 02/29/2016 3:17 PM Performed by: YVETTE SMITH Authorized by: YVETTE SMITH Comparison: compared with previous ECG from 02/12/2015 Similar to previous ECG Rhythm: sinus rhythm Rate: normal BPM: 72 Conduction: conduction normal Conduction comments: Bord 1st AVB ST Segments: ST segments normal T Waves: T waves normal QRS axis: normal Clinical impression comment: stable EKG Yvette Smith MD ECG ORDERABLES Final Result * POC Glycosylated Hemoglobin (Hb A1C) (02/29/2016 2:44 PM EDT) Hemoglobin A1C 5.7 % [facility] Blood 02/29/2016 2:44 PM EDT Yvette Smith MD POINT OF CARE TEST ORDERABLES Fi nal Result [facility]
[address] [place] [address], [place] [phone] documented in this encounter Visit Diagnoses Diagnosis Medicare annual wellness visit, subsequent- Primary Essential hypertension Unspecified essential hypertension Controlled type 2 diabetes mellitus Hyperlipidemia CKD (chronic kidney disease), stage III Chronic kidney disease, Stage III (moderate) Osteopenia Disorder of bone and cartilage, unspecified Constipation Allergic rhinitis Gastroesophageal reflux disease Sinusitis Osteopenia Disorder of bone and cartilage, unspecified documented in this encounter Care Teams Television Presenter Relationship Specialty Start Date End Date Yvette Smith MD [address] [place] [address] PCP - General 02/08/15 documented as of this encounter
--- OUTSIDE RECORDS SUMMARY | 2024-03-25 02:52 | XMS_ITS | Encounter Summary ---
Author Organization [facility] Address [address] [place] [address] Care Team Providers Care Obstetrician/Gynecologist Name Role Phone Unavailable Primary Care Provider Unavailabl e Encounter Details Date Type Department Care Team (Late st Contact Info) Description 08/10/2014 Office Visit Converted [facility] MEDICINE [address] [place] [phone] [place] [address] [place] [phone] Social History Tobacco Use Types Packs/Day Years Used Date Smoking Tobacco: Never Assessed Comments Unknown Sex and Gender Information Value Date Recorded Sex Assigned at Not on file Legal Sex Female 12:10 PM EDT Gender Identity Not on file Sexual Orientation Not on file documented as of this encounter Last Filed Vital Signs Vital Sign Reading Time Taken Comments Blood Pressure 118/70 08/10/2014 10:29 AM EDT Pulse - - Temperature - - Respiratory Rate - - Oxygen Saturation - - Inhaled Oxygen Concentration - - Weight 80.3 kg (177 lb 0.1 oz) 08/10/2014 10:29 AM EDT Height 170.2 cm (5' 7 ) 08/10/2014 10:29 AM EDT Body Mass Index 27.72 08/10/2014 10:29 AM EDT documented in this encounter Progress Notes * Betsy Smith MD - 08/10/2014 10:30 AM EDT Chief Complaint FOLLOW UP, DIABETES History of Present Illness HPI: 79yo woman presents for BP and BG follow-up. Notes weight loss; has started drinkingsmoothies for dinner. Complains of sore throat and ears popping sensation that comes and goes. Has been using [place] OTC without relief. Has cough, otilio at nighttime. Has chronic ear fullness. Notes using tweezers to try to get wax out and it hurts her. Active Problems PMFSH - reviewed - see EHR Current Meds Medication Name Instruction Amlodipine Besy-Benazepril HCl - 5-40 MG Oral Capsule TAKE 1 CAPSULE DAILY. Aspirin 81 MG Oral Tablet TAKE 1 TABLET DAILY. Hydrochlorothiazide 25 MG Oral Tablet 1 po qam MiraLax Oral Powder DIRECTED PRN Pioglitazone HCl-Metformin HCl - 15-850 MG Oral Tablet Take 1 tablet twice daily with meals Prevacid SoluTab 30 MG Oral Tablet Dispersible TAKE 1 TABLET DAILY. Vitamin D3 1000 UNIT Oral Capsule 2 PO QD Zetia 10 MG Oral Tablet TAKE 1 TABLET DAILY. Allergies 1. Lipitor TABS Vitals Signs [Data Includes: Current Encounter] Systolic: 118 Diastolic: 70 Height: 5 ft 7 in Weight: 177 lb BMI Calculated: 27.72 BSA Calculated: 1.92 Physical Exam BH Complete Multi-System Exam (Brief): Constitutional General appearance: No acute distress, well appearing and well nourished. Note 11lb weight loss over the last 6 mos. Eyes Conjunctiva and lids: No swelling, erythema or discharge. Pupils and irises: Equal, round and reactive to light. Ears, Nose, Mouth, and Throat External inspection of ears and nose: Normal. Otoscopic examination: Abnormal. Bilat aud canal occluded by cerumen, dark and pushed back on the L. Oropharynx: Normal with no erythema, edema, exudate or lesions. Posterior drainage without erythema/exudate. Pulmonary Respiratory effort: No increased work of breathing or signs of respiratory distress. Auscultation of lungs: Clear to auscultation. Cardiovascular RRR. Musculoskeletal Gait and station: Normal. Psychiatric Orientation to person, place, and time: Normal. Mood and affect: Normal. Results/Data A1C 5.9 (was 6.1 in 02/17, LDL 78) Discussion/Summary Discussion Summary: Next PE due after 02/09/15; rec fasting labs the week prior to appt Assessment 1. Diabetes mellitus type II, controlled, with no complications (250.00) ?? BG control stable; no change in meds; healthy diet and phys activity 2. Hypertension (401.9) ?? BP excellent on current meds 3. Allergic rhinitis (477.9) ?? rec more aggressive symptomatic therapy with antihistamine and nasal steroid spray; reviewed how to use correctly 4. Esophageal reflux (530.81) ?? renewed prevacid solutab as requested; she states she does not take it daily 5. Cerumen impaction (380.4) ?? s/p bilat lavage with instrumentation; rec maintenance with equal parts hydrogen peroxide and water 2-3x/week; advised against using tweezers in her ears Plan Diabetes mellitus type II, controlled, with no complications ?? Hemoglobin A1C; Status:Hold For - Specimen Collection and/or Additional Processing; Requested for:[id number]; ?? Microalbumin Creatinine Ratio; Status:Hold For - Specimen Collection and/or Additional Processing; Requested for:[id number]; ?? Vitamin B12; Status:Hold For - Specimen Collection and/or Additional Processing; Requested for:[id number]; Esophageal reflux ?? SoluTab 30 MG Oral Tablet Dispersible (Lansoprazole); TAKE 1 TABLET DAILY Health Maintenance ?? T4 ( Thyroxine ) Free; Status:Hold For - Specimen Collection and/or Additional Processing; Requested for:[id number]; ?? TSH; Status:Hold For - Specimen Collection and/or Additional Processing; Requested for:[id number]; Renal insufficiency ?? CBC With Auto Diff; Status:Hold For - Specimen Collection and/or Additional Processing; Requested for:[id number]; ?? CMP; Status:Hold For - Specimen Collection and/or Additional Processing; Requested for:[id number]; Stress incontinence in female ?? Urinalysis ( UA ) w Microscopic Indicated; Status:Hold For - Specimen Collection and/or Additional Processing; Requested for:[id number]; Vitamin d deficiency ?? Vitamin D 25 OH ( Hydroxy ); Status:Hold For - Specimen Collection and/or Additional Processing; Requested for:[id number]; Signatures Electronically signed by : Betsy Smith M.D.; Aug 10 2014 11:11AM EST (Author) documented in this encounter Plan of Treatment Upcoming Encounters Date Type Department Care Team (Late st Contact Info) Description 06/09/2024 3:00 PM EST Office Visit [facility] [address] [place] [phone] Betsy Smith MD [address] [place] [phone] documented as of this encounter Visit Diagnoses Not on filedocumented in this encounter
--- OUTSIDE RECORDS SUMMARY | 2024-03-25 02:52 | XMS_ITS | Encounter Summary ---
[facility] Address [address] [place] [address] Care Team Providers Care Aluminum Can Collector Name Role Phone Betsy Smith MD Primary Care Provider [phone] Reason for Visit * Reason Onset Date Comments Med Refill - HCTZ, Actoplusmet, Zetia, HCTZ 01/05 Encounter Details Date Type Department Care Team (Late st Contact Info) Description 01/21/2016 Refill [facility] [address] [place] [phone] Betsy Smith MD [address] [place] [address] Social History Tobacco Use Types Packs/Day Years Used Date Smoking Tobacco: Never Assessed Comments Unknown Sex and Gender Information Value Date Recorded Sex Assigned at Not on file Legal Sex Female 12:10 PM EDT Gender Identity Not on file Sexual Orientation Not on file documented as of this encounter Miscellaneous Notes * Telephone Encounter - Beba Malone MA - 01/21/2016 12:48 PM EDT ----- Message from Beba Malone MA sent at 01/21/2016 11:33 AM EDT ----- Contact: [facility] We have not received any requests from [facility]. ----- Message ----- From: Latoya Crespo Sent: 01/21/2016 11:14 AM To: Beba Malone MA PATIENT CALLED TO MAKE SURE WE HAVE RECEIVED THE REQUESTS OF HER MEDICATION REFILLS FROM [facility]. SHE SAID THERE ARE 5 SCRIPTS AND SHE WILL BE LEAVING FOR [place] SOON. CAN YOU CONTACT THE PT? documented in this encounter Plan of Treatment Upcoming Encounters Date Type Department Care Team (Late st Contact Info) Description 06/09/2024 3:00 PM EST Office Visit [facility] [address] [place] [phone] Betsy Smith MD [address] [place] [phone] documented as of this encounter Visit Diagnoses Not on filedocumented in this encounter Care Teams Aluminum Can Collector Relationship Specialty Start Date End Date Betsy Smith MD [address] [place] [phone] PCP - General 02/08/15 documented as of this encounter
--- OUTSIDE RECORDS SUMMARY | 2024-03-25 02:52 | XMS_ITS | Encounter Summary ---
[facility] Address [address] [place] [address] Care Team Providers Care Buffing Turner And Counter Name Role Phone Unavailable Primary Care Provider Unavailabl e Encounter Details Date Type Department Care Team (Late st Contact Info) Description 08/24/2014 Telephone Converted [facility] [address] [place] [address] Provider, MD Michael [address] [place], [place] [id number] Social History Tobacco Use Types Packs/Day Years Used Date Smoking Tobacco: Never Assessed Comments Unknown Sex and Gender Information Value Date Recorded Sex Assigned at Not on file Legal Sex Female 12:10 PM EDT Gender Identity Not on file Sexual Orientation Not on file documented as of this encounter Miscellaneous Notes * Telephone Encounter - Interface, See Report - 08/24/2014 1:42 PM EDT Message Recorded as Task Date: 08/24/2014 10:31 AM, Created By: Dinorah Vaca Task Name: Personal Assigned To: Jacob Smith Regarding Patient: SUSHMA PERALES, Status: Active Comment: Dinorah Vaca - 24 Aug 2014 10:31 AM TASK CREATED Caller: Self; Personal; PT SAYS THAT ANGELIA HAS BEEN TRYING TO CONTACT US ABOUT HER PREVACID 30MG. PT SAYS THAT THEY NEEDMORE INFORMATION BUT CANT GET A HOLD OF US. Jacob Smith - 24 Aug 2014 1:42 PM TASK EDITED scrip needed to be called in. Angelia completed this. Signatures Electronically signed by : Jacob Smith, ; Aug 24 2014 1:42PM EST (Author) documented in this encounter Plan of Treatment Upcoming Encounters Date Type Department Care Team (Late st Contact Info) Description 06/09/2024 3:00 PM EST Office Visit [facility] [address] [place] [phone] Betsy Smith MD [address] [place], [place] [phone] documented as of this encounter Visit Diagnoses Not on filedocumented in this encounter
--- OUTSIDE RECORDS SUMMARY | 2024-03-25 02:52 | XMS_ITS | Encounter Summary ---
[facility] Organization [facility] Address [address] [place] [address] Care Team Providers Care Incident Manager Name Role Phone Betsy Smith MD Primary Care Provider [phone] Encounter Details Date Type Department Care Team (Latest Contact Info) Description 02/08/2015 8:39 AM EDT - 02/08/2015 11:59 PM EDT Hospital Encounter [facility] DEPARTMENT [address] [place] [id number] Betsy Smith MD [address] [place] [address] Discharge Disposition: Home or Self Care Social History Tobacco Use Types Packs/Day Years Used Date Smoking Tobacco: Never Assessed Comments Unknown Sex and Gender Information Value Date Recorded Sex Assigned at Not on file Legal Sex Female 12:10 PM EDT Gender Identity Not on file Sexual Orientation Not on file documented as of this encounter Medications at Time of Discharge aspirin 81 MG tablet Take 1 tablet by mouth Daily. 09/17/2012 02/01/2018 Cholecalciferol (VITAMIN D3) 1000 UNITS capsule Take 1 capsule by mouth Daily. 09/17/2012 03/06/2017 polyethylene glycol (MIRALAX) powder Take by mouth. 1 capful every morning. 09/17/2012 08/29/2016 documented as of this encounter Plan of Treatment Upcoming Encounters Date Type Department Care Team (Late st Contact Info) Description 06/09/2024 3:00 PM EST Office Visit [facility] [address] [place] [address] Betsy Smith MD [address] [place] [address] documented as of this encounter Procedures Procedure Name Priority Date/Time Associated Diagnosis Comments MICROALBUMIN / CREATININE URINE RATIO Routine 02/08/2015 10:31 AM EDT VITAMIN D,25-HYDROXY Routine 02/08/2015 10:31 AM EDT URINALYSIS WITHOUT MICROSCOPIC (NO CULTURE) Routine 02/08/2015 10:31 AM EDT CBC AND DIFFERENTIAL Routine 02/08/2015 10:31 AM EDT TSH Routine 02/08/2015 10:31 AM EDT T4, FREE Routine 02/08/2015 10:31 AM EDT HEMOGLOBIN A1C Routine 02/08/2015 10:31 AM EDT VITAMIN B12 Routine 02/08/2015 10:31 AM EDT COMPREHENSIVE METABOLIC PANEL Routine 02/08/2015 10:31 AM EDT documented in this encounter Results * Microalbumin / creatinine urine ratio (02/08/2015 10:31 AM EDT) Creatinine, Urine 37.9 15.0 - 278.0 mg/dL [facility] Microalbumin, Urine <3.0 0.0 - 17.0 ug/mL [facility] Microalbumin/Cr eatinine Ratio Urine <7.9 0.0 - 30.0 mg/g creat [facility] Urine specimen (specimen) 02/08/2015 10:31 AM EDT 02/09/2015 10:47 AM EDT Narrative [facility] - 02/09/2015 10:47 AM EDT Specimen Type : Urine Betsy Smith MD URINE ORDERABLES Final Result [facility] [address] [place] [address], * (ABNORMAL) Comprehensive metabolic panel (02/08/2015 10:31 AM EDT) Glucose 90 70 - 100 mg/dL [facility] BUN 26(H) 9 - 23 mg/dL [facility] Creatinine 1.3 0.6 - 1.3 mg/dL [facility] Sodium 138 132 - 146 mmol/L [facility] Potassium 5.1 3.5 - 5.5 mmol/L [facility] Chloride 98(L) 99 - 109 mmol/L [facility] CO2 29 20 - 31 mmol/L [facility] Calcium 9.8 8.7 - 10.4 mg/dL [facility] Alkaline Phosphatase 74 25 - 100 Units/L [facility] AST (SGOT) 17 0 - 33 Units/L [facility] ALT (SGPT) 14 7 - 40 Units/L [facility] Total Bilirubin 0.6 0.3 - 1.2 mg/dL [facility] Total Protein 6.2 5.7 - 8.2 g/dL [facility] Albumin 4.1 3.2 - 4.8 g/dL [facility] eGFR 42 ml/min/1.7 32 [facility] Comment: ?? National Kidney Foundation Guidelines ?Stage ? Description ?GFR ?1 ?Normal or High ? 90+ ?2 ?Mild decrease ? 60-89 ?3 ?Moderate decrease ?30-59 ?4 ?Severe decrease ?15-29 ?5 ?Kidney failure ?<15 Anion Gap 11 3 - 11 mmol/L [facility] Blood specimen (specimen) 02/08/2015 10:31 AM EDT 02/08/2015 10:31 AM EDT Narrative [facility] - 02/08/2015 4:18 PM EDT Specimen Type : Blood us Betsy Smith MD LAB BLOOD ORDERABLES Final Resul t Performing Organization Address [facility] Phone Number [facility] [address] [place] [address], * TSH (02/08/2015 10:31 AM EDT) TSH 2.388 0.350 - 5.350 UIU/mL [facility] Comment: Specimens containing fluorescein can produce falsely depressed values with this assay. ??Patients undergoing fluorescein dye angiography should wait 72 hours post-treatment before testing. Blood specimen (specimen) 02/08/2015 10:31 AM EDT 02/08/2015 10:31 AM EDT [facility] - 02/08/2015 4:18 PM EDT Specimen Type : Blood us Betsy Smith MD LAB BLOOD ORDERABLES Final Resul t Performing Organization Address [facility] de Phone Number [facility] [address] [place] [address], * T4, free (02/08/2015 10:31 AM EDT) Free T4 1.30 0.89 - 1.76 ng/dL [facility] Blood specimen (specimen) 02/08/2015 10:31 AM EDT 02/08/2015 10:31 AM EDT [facility] - 02/08/2015 4:18 PM EDT Specimen Type : Blood us Betsy Smith MD LAB BLOOD ORDERABLES Final Resul t Performing Organization Address [facility] de Phone Number [facility] [address] [place] [address], * Hemoglobin A1c (02/08/2015 10:31 AM EDT) [facility] Hemoglobin A1C 5.9 4.00 - 6.00 % [facility] Comment: The [place] [employer] recommends maintenance of Hemoglobin A1C at 7.0% or lower. Goals for Hemoglobin A1C reduction may need to be modified if hypoglycemia is a problem. Mean Bld Glu Estim. 117 mg/dL [facility] Blood specimen (specimen) 02/08/2015 10:31 AM EDT 02/08/2015 10:31 AM EDT [facility] - 02/08/2015 4:12 PM EDT Specimen Type : Blood us Betsy Smith MD LAB BLOOD ORDERABLES Final Resul t Performing Organization Address [facility] Co de Phone Number [facility] [address] [place] [address], * Vitamin D 25 hydroxy (02/08/2015 10:31 AM EDT) Pathologist [facility] 25 Hydroxy, Vitamin D 38.3 ng/mL [facility] Comment: Specimens containing fluorescein can produce falsely elevated values with this assay. ??Patients undergoing fluorescein dye angiography should wait 72 hours post-treatment before testing. Reference Ranges for Total Vitamin D 25(OH) Deficiency <20.0 ng/ml Insufficiency ? 20-30 ng/ml Sufficiency 30-100 ng/ml Toxicity >100 ng/ml Blood specimen (specimen) 02/08/2015 10:31 AM EDT 02/08/2015 10:31 AM EDT [facility] - 02/08/2015 4:11 PM EDT Specimen Type : Blood us Betsy Smith MD LAB BLOOD ORDERABLES Final Resul t Performing Organization Address [facility] de Phone Number [facility] [address] [place] [address], * Vitamin B12 (02/08/2015 10:31 AM EDT) Pathologist [facility] Vitamin B-12 273 211 - 911 pg/mL [facility] Blood specimen (specimen) 02/08/2015 10:31 AM EDT 02/08/2015 10:31 AM EDT [facility] - 02/08/2015 4:11 PM EDT Specimen Type : Blood us Betsy Smith MD LAB BLOOD ORDERABLES Final Resul t Performing Organization Address [facility] de Phone Number [facility] [address] [place] [address], * (ABNORMAL) CBC and Differential (02/08/2015 10:31 AM EDT) Pathologist [facility] WBC 6.17 3.50 - 10.80 [facility] RBC 3.91 3.89 - 5.14 [facility] Hemoglobin 11.2(L) 11.5 - 15.5 g/dL [facility] Hematocrit 34.0(L) 34.5 - 44.0 % [facility] MCV 87.0 80.0 - 99.0 fL [facility] MCH 28.6 27.0 - 31.0 pg [facility] MCHC 32.9 32.0 - 36.0 g/dL [facility] RDW-CV 14.7(H) 11.3 - 14.5 % [facility] Platelets 296 150 - 450 [facility] Neutrophils Absolute 3.50 1.50 - 8.30 [facility] Lymphocytes Absolute 1.80 0.60 - 4.80 [facility] Monocytes Absolute 0.61 0.00 - 1.00 [facility] Eosinophils Absolute 0.17 0.10 - 0.30 [facility] Basophils Absolute 0.08 0.00 - 0.20 [facility] Neutrophil Rel % 56.6 41.0 - 71.0 % [facility] Lymphocyte Rel % 29.2 24.0 - 44.0 % [facility] Monocyte Rel % 9.9 0.0 - 12.0 % [facility] Eosinophil Rel % 2.8 0.0 - 3.0 % [facility] Basophil Rel % 1.3(H) 0.0 - 1.0 % [facility] Immature Granulocyte Rel % 0.2 0.0 - 0.6 % [facility] Blood specimen (specimen) 02/08/2015 10:31 AM EDT 02/08/2015 10:31 AM EDT Narrative [facility] - 02/08/2015 4:09 PM EDT Specimen Type : Blood Betsy Smith MD LAB BLOOD ORDERABLES Final Resul t [facility] [address] [place] [address], * Urinalysis Without Microscopic (02/08/2015 10:31 AM EDT) Color Yellow [facility] Appearance, UA Clear [facility] pH, UA 6.5 4.5 - 8.0 [facility] Specific [place], UA 1.010 1.001 - 1.030 [facility] Glucose, UA Negative Negative mg/dL [facility] Ketones, UA Negative Negative [facility] Bilirubin, UA Negative Negative [facility] Blood, UA Negative Negative [facility] Protein, UA Negative Negative mg/dL [facility] Comment:This test was previo usly referred to as Albumin Nitrite, UA Negative Negative [facility] Leukocytes, UA Negative Negative [facility] Urobilinogen, UA 0.2 0.2 - 1.0 mg/dL [facility] Urine specimen (specimen) Urine specimen obtained by clean catch procedure / Unknown 02/08/2015 10:31 AM EDT 02/08/2015 10:31 AM EDT Narrative [facility] - 02/08/2015 3:54 PM EDT Specimen Type : UrineSpecimen Source : Clean Catch us Betsy Smith MD URINE ORDERABLES Final Result Performing Organization Address City/State/[facility] Co de Phone Number [facility] [address] [place] [address], documented in this encounter Visit Diagnoses Not on filedocumented in this encounter Care Teams Incident Manager Relationship Specialty Start Date End Date Betsy Smith MD [address] [place] [address] PCP - General 02/08/15 documented as of this encounter
--- OUTSIDE RECORDS SUMMARY | 2024-03-25 02:52 | XMS_ITS | Data Portability ---
Author Organization [facility] Address [address] [place] [address] Assessment No assessment recorded. Plan of Treatment Reminders Order Date Submit Date Provider Last Modified By Organization Details Last Modified Time Details Appointments None record ed. Lab None record ed. Referral None record ed. Procedures None record ed. Surgeries None record ed. Imaging None record ed. Medication Orders None record ed. Patient TargetsNo targets recorded. Patient Instructions Encounter Date Encounter Id Patient Instructions Last Modified By Organization Details Last Modified Time 01/21/2019 [id number] Spent {{30# }} total minutes with the patient today. Greater than 50% of this time was spent counseling/coordi nation of care as documented in my assessment and plan above. [email or web address] Not available 01/21/2019 09:07:30 Reason for Referral None Reported. Procedures Surgical History Date Name Laterality Status Provider Name and Address Organization Details Recorded Time Back Surgery completed Diane Ena [facility] 01/21/2019 08:45:10 Knee arthroscopy/s urgery completed Diane Ena [facility] 01/21/2019 08:45:17 Removal of tonsils completed Diane [facility] 01/21/2019 08:45:30 Imaging Results None recorded. Procedure Notes None recorded. Medical Equipment None Reported. Allergies No known drug allergies Medications Name Sig Start Date Stop Date Status Note LastModified by Organization Details LastModified Time pioglitazone 15 mg tablet Take 1 tablet every day by oral route. active Not Available Not Available No t Available amlodipine 5 mg tablet Take 1 tablet every day by oral route. active Not Available Not Available No t Available Mobic 15 mg tablet Take 1 tablet every day by oral route. active Not Available Not Available No t Available ranitidine 300 mg capsule Take 1 capsule every day by oral route. active Not Available Not Available No t Available gabapentin 100 mg capsule Take 1 capsule 3 times a day by oral route. active Not Available Not Available No t Available Zetia 10 mg tablet Take 1 tablet every day by oral route. active Not Available Not Available No t Available Vitamin D3 25 mcg (1,000 unit) capsule Take by oral route. active Not Available Not Available No t Available cyclobenzaprine 5 mg tablet Take 1 tablet 3 times a day by oral route. active Not Available Not Available No t Available metformin ER 750 mg tablet,extended release 24 hr Take 1 tablet every day by oral route. active Not Available Not Available No t Available Vitamin B12 active Not Available Not A vailable Not Available Linzess 72 mcg capsule Take 1 capsule every day by oral route. active Not Available Not Available No t Available Vitals Date Recorded Body height Body mass index (BMI) Body weight Systolic blood pressure Diastolic blood pressure Provider Name and Address Organization Details Last Updated DateTime 01/21/2019 165.1 cm 27.6 kg/m2 46533.33 g 142 mm[Hg] 72 mm[Hg] Diane Sutherland [facility] 9 08:42:20 Social History None recorded. Functional Status None recorded. Mental Status None recorded. Family History Nothing Reported. Medical History Condition Response Diabetes Y Hypertension Y Gynecological HistoryNo gynecological history recorded. Obstetrics History GPAL:G 0 P 0 0 0 0 Past Encounters Encounter ID Performer Location Encounter Start Date Encounter Closed Date Diagnosis/Indication Diagnosis SNOMED-CT Code Diagnosis ICD10 Code [id number] DONNA HENRY MD NEUROSURG [facility] [address] [facility] [facility] [place] [address] 01/21/2019 08:19:33 01/23/2019 14:45:01 Spinal stenosis of lumbar region 16039166 M48.061 Health Concerns Section Related Observation LastModified by Organization Detai ls LastModified Time None Recorded Concern Status LastModified by Organization Details LastModified Time None Recorded Advance Directives Directive None Recorded Payers Encounter Date Sequence Insurance Name Policy Number Policy Russo Covered Member ID Russo Member ID Guarantor Name 01/21/2019 1 [place] Tasneem M McIlvain [id number] Tasneem McIlvain 01/21/2019 2 [place] [employer] [id number] [id number] Tasneem Angella Notes Date Note Type Note Provider Name and Address Organization Details Recorded Time 01/21/2019 text/html 83-year-old mera oliveros female status post what sounds like a discectomy 50 years ago at [facility] with a past medical history significant for diabetes, hypertension, and chronic constipation here today as a new patient referral from Dr. Pope. About one month ago, she was on the commode and was trying to have a bowel movement when she felt a sudden onset of left-sided low back pain which was referred down the posterior aspect of the left leg to the knee and stopped. She started taking gabapentin and started physical therapy, and feels 100% better than when her symptoms started 1 month ago. She rates her pain today is 0 out of 10. She states she is not taken gabapentin for the last couple of days. She denies any low back or leg pain today. She denies any leg weakness, foot drop, bowel or bladder incontinence, saddle paresthesias, or leg numbness. She presents today with a lumbar MRI without contrast from her [facility] on a CD from 01/03/19. VICTOR HUGO BEAUCHAMP PA-C [address] [place], [address], [facility] 01/21/2019 09:12:50 OBGyn Episode No OBEpisode recorded.
--- OUTSIDE RECORDS SUMMARY | 2024-03-25 02:52 | XMS_ITS | Encounter Summary ---
[facility] Address [address] [place] [address] Care Team Providers Care Leg Breaker Name Role Phone Betsy Smith MD Primary Care Provider [phone] Reason for Visit * Reason Onset Date Comments Med Refill - Lansoprazole 02/15/2016 Encounter Details Date Type Department Care Team (Late st Contact Info) Description 02/15/2016 Refill [facility] [address] [place] [phone] Beba Malone MA Social History Tobacco Use Types Packs/Day Years Used Date Smoking Tobacco: Never Assessed Comments Unknown Sex and Gender Information Value Date Recorded Sex Assigned at Not on file Legal Sex Female 12:10 PM EDT Gender Identity Not on file Sexual Orientation Not on file documented as of this encounter Plan of Treatment Upcoming Encounters Date Type Department Care Team (Late st Contact Info) Description 06/09/2024 3:00 PM EST Office Visit [facility] [address] [place] [phone] Betsy Smith MD [address] [place] [phone] documented as of this encounter Visit Diagnoses Not on filedocumented in this encounter Care Teams Leg Breaker Relationship Specialty [place] [address] [place] [id number] PCP - General 02/08/15 documented as of this encounter
--- OUTSIDE RECORDS SUMMARY | 2024-03-25 02:52 | XMS_ITS | Encounter Summary ---
Author Organization [facility] ystem Address [address] [place] [address] Care Team Providers Care Yard Stocker Name Role Phone Betsy Smith MD Primary Care Provider [phone] Encounter Details Date Type Department Care Team (Late st Contact Info) Description 02/12/2015 Office Visit Converted [facility] [address] [place] [phone] [place] [address] [place] [address] Social History Tobacco Use Types Packs/Day Years Used Date Smoking Tobacco: Never Assessed Comments Unknown Sex and Gender Information Value Date Recorded Sex Assigned at Not on file Legal Sex Female 12:10 PM EDT Gender Identity Not on file Sexual Orientation Not on file documented as of this encounter Last Filed Vital Signs Vital Sign Reading Time Taken Comments Blood Pressure 110/64 02/12/2015 11:04 AM EDT Pulse - - Temperature - - Respiratory Rate - - Oxygen Saturation - - Inhaled Oxygen Concentration - - Weight 79.4 kg (175 lb) 02/12/2015 11:04 AM EDT Height 170.2 cm (5' 7 ) 02/12/2015 11:04 AM EDT Body Mass Index 27.41 02/12/2015 11:04 AM EDT documented in this encounter Progress Notes * Betsy Simth MD - 02/12/2015 10:45 AM EDT Chief Complaint ANNUAL WELLNESS History of Present Illness BH Welcome to Medicare and Wellness Visits: The patient is being seen for the subsequent annual wellness visit. Tobacco use: As noted in social history. Alcohol use: As noted in social history. Illicit drug use: As noted in social history. Current diet includes well balanced meals. The patient does not exercise. Exercise: painting deck, yardwork. Depression screening tool used was GERIATRIC DEPRESSION SCALE. Mini Cog Test: Number of correct items recalled: 3 Patient repeated: APPLE, WATCH, BESSY Screen negative for cognitive impairment. She denies hearing difficulties. The patient is currently able to do activities of daily living without limitations. Fall risk factors: antihypertensive use, but no previous fall, no mobility impairment, no visual impairment, no cognitive impairment, no polypharmacy, no alcohol use, no antidepressant use, no sedative use, no deconditioning, no postural hypotension, up and go test was normal and no urinary incontinence. Fall Risk Assessment: Fall Risk Assessment: Have you had two or more falls in the past 12 months? No Do you have difficulty with walking or balance? No. Record time:5 seconds Home safety risk factors: household clutter (due to grandkids), no grab bars in the bathroom and nohandrails on the stairs, but no loose rugs, no uneven floors, no unfamiliar surroundings and no poor household lighting. Advance directives: no living will and no durable power of trademark attorney for health care directives. Endof life decisions were reviewed with the patient and I disagree with the patient's decisions. Concerns with the patient's end of life decisions: full code. HPI: 79yo woman presents for Wellness Visit. Feels well overall. Has questions about blood bruising spots on forearms . Has been told it is due to aging skin. No other bleeding problems elsewhere. Denies headaches, vis changes, CP, palpitations, SOB, abd pain, n/v/d, difficulty, vag discharge/bleeding, numbness/tingling, falls, mood changes. Wants to change prevacid Solutab due to cost.All other ROS reviewed and negative. Active Problems 1. Allergic rhinitis (477.9) (J30.9) 2. Anal fissure (565.0) (K60.2) 3. bone pain in the leg (below the knee) 4. Cerumen impaction (380.4) (H61.20) 5. Constipation (564.00) (K59.00) 6. Diabetes mellitus type II, controlled, with no complications (250.00) (E11.9) 7. Diverticulosis of colon (562.10) (K57.30) ?? colonoscopy 09/11 , GI - Dr. Shen (previously Dr. Egan) 8. Esophageal reflux (530.81) (K21.9) 9. Hyperlipidemia (272.4) (E78.5) 10. Hypertension (401.9) (I10) 11. Osteoarthritis (715.90) (M19.90) 12. Osteopenia (733.90) (M85.80) ?? by DEXA (04/10); DEXA (11/16) L -0.1, H -1.8 13. Renal insufficiency (593.9) (N28.9) 14. Stress incontinence in female (625.6) (N39.3) 15. Vitamin d deficiency (268.9) (E55.9) Past Medical History ?? Denied: History of aneurysm of abdominal aorta ?? neg AAA screening U/S (12/15) ?? History of benign polyps of the large intestine (V12.72) ?? colonoscopy () per Dr. Egan ?? History of Bone Density Studies ?? DEXA 11/16: L -0.1, H -1.8 ?? History of Cataract (366.9) (H26.9) ?? Onset Date: 06 Apr 2007 ?? s/p bilat cataract surgery (11/17 and 12/18); ophtho - Dr. Duque ?? History of herpes zoster (V12.09) (Z86.19) ?? L. forehead() ?? History of right shoulder fracture (818.0) ?? Onset Date: 1999 ?? secondary to work injury; no surgery done Surgical History ?? History of Cataract Surgery ?? s/p R (11/17) and L (12/18) cataract surgery; ophtho - Dr. Duque ?? History of Laminectomy Lumbar ?? Onset Date: 06 Jan 1960 ?? L5-S1 laminectomy [...] tobacco (Z78.9) ?? 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 Amlodipine Besy-Benazepril HCl - 5-40 MG Oral Capsule; TAKE 1 CAPSULE DAILY Requested for: [id number]; Last Rx:[id number] Ordered 2. Aspirin 81 MG Oral Tablet; TAKE 1 TABLET DAILY; Therapy: (Recorded:[id number]) to Recorded 3. Hydrochlorothiazide 25 MG Oral Tablet; 1 po qam Requested for: 39Pji3363; Last Rx:[id number] Ordered 4. MiraLax Oral Powder; DIRECTED PRN; Therapy: (Recorded:[id number]) to Recorded 5. Pioglitazone HCl-Metformin HCl - 15-850 MG Oral Tablet; Take 1 tablet twice daily with meals Requested for: 19Jan2015; Last Rx:[id number] Ordered 6. Prevacid SoluTab 30 MG Oral Tablet Dispersible; TAKE 1 TABLET DAILY Requested for: 77Vzl3444; Last Rx:[id number] Ordered 7. Vitamin D3 1000 UNIT Oral Capsule; 2 PO QD; Therapy: (Recorded:09Feb2014) to Recorded 8. Zetia 10 MG Oral Tablet; TAKE 1 TABLET DAILY Requested for: 19Jan2015; Last Rx:[id number] Ordered Allergies 1. Lipitor TABS Immunizations 1 2 3 Influenza 04/08/1259Wil8793 99Wev1003 Pneumococcal 03/30/10 Tdap 10/05/10 Zoster 09/24/08 Vitals Signs [Data Includes: Current Encounter] Systolic: 110 Diastolic: 64 Height: 5 ft 7 in Weight: 175 lb BMI Calculated: 27.41 BSA Calculated: 1.91 Physical Exam Constitutional General appearance: No acute distress, well appearing and well nourished. Head and Face Head and face: Normal. Palpation of the face and sinuses: No sinus tenderness. Eyes Conjunctiva and lids: No swelling, erythema or discharge. Pupils and irises: Equal, round, reactive to light. Ears, Nose, Mouth, and Throat External inspection of ears and nose: Normal. Otoscopic examination: Tympanic membranes translucent with normal light reflex. Canals patent without erythema. Hearing: Abnormal. Decreased hearing bilat. Nasal mucosa, septum, and turbinates: Normal without edema or erythema. Oropharynx: Normal with no erythema, edema, exudate or lesions. Neck Neck: Supple, symmetric, trachea midline, no masses. Thyroid: Normal, no thyromegaly. Pulmonary Respiratory effort: No increased work of breathing or signs of respiratory distress. Auscultation of lungs: Clear to auscultation. Cardiovascular Auscultation of heart: Normal rate and rhythm, normal S1 and S2, no murmurs. Carotid pulses: 2+ bilaterally. Spider veins, no LE edema bilaterally on exam today. Chest Deferred. Abdomen Abdomen: Non-tender, no masses. Liver and spleen: No hepatomegaly or splenomegaly. Genitourinary Deferred. Lymphatic Palpation of lymph nodes in neck: No lymphadenopathy. Musculoskeletal Gait and station: Normal. Joints, bones, and muscles: Abnormal. Arthritic changes. Skin Skin and subcutaneous tissue: Abnormal. SQ ecchymoses erythematous, nontender. Palpation of skin and subcutaneous tissue: Normal turgor. No tenting. Neurologic Cranial nerves: Cranial nerves II-XII intact. Reflexes: 2+ and symmetric. Sensation: No sensory loss. Psychiatric Judgment and insight: Normal. Orientation to person, place, and time: Normal. Recent and remote memory: Intact. Mood and affect: Normal. Results/Data stable CBC, CMP, TFTs, A1C 5.9, microalb, B12, vit D ECG Results and Interpretation: dx: I10 Rhythm and rate:. Normal sinus rhythm. Ventricular rate is 62 beats per minute. QRS: the QRS is normal ST segment: The ST segments are normal. Assessment 1. Encounter for preventive health examination (V70.0) (Z00.00) 2. Hypertension (401.9) (I10) ?? BP stable on amlo/benaz; low Na diet 3. Hyperlipidemia (272.4) (E78.5) ?? check lipids on zetia 4. Diabetes mellitus type II, controlled, with no complications (250.00) (E11.9) ?? BG control stable/improved; remains on actoplusmet; f/u in 6 mos with A1C 5. Renal insufficiency (593.9) (N28.9) ?? stable renalfunction 6. Vitamin d deficiency (268.9) (E55.9) ?? stable with current supplementation 7. Osteopenia (733.90) (M85.80) ?? Ca/vit D and WBE; repeat DEXA 2015 8. Esophageal reflux (530.81) (K21.9) ?? change prevacid solutba to lansoprazole 30mg QD #90, 3RF due to cost 9. Ecchymosis (459.89) (R58) ?? most likely attributed to ASA 81mg QD; follow clinically Plan Esophageal reflux ?? SoluTab 30 MG Oral Tablet Dispersible (Lansoprazole) Esophageal reflux, Vitamin d deficiency ?? 30 MG Oral Capsule Delayed Release; TAKE 1 CAPSULE EVERY MORNING DAILY Health Maintenance ?? High-Dose Intramuscular Suspension Discussion/Summary Medication Review and medication list updated Medication Review for potentially harmful drug-disease interactions in the elderly Medication Review for use of high-risk medications in the elderly Aspirin Use discussion already on 81mg QD ASA 1. Health maintenance - high dose flu vaccine given today; PVX 03/16; Tdap 10/15, Zostavax 09/12; mammo due after 04/28/15; no further Paps unless abnlities; DEXA 11/16, repeated 2015; coloosc 08/12, repeat [address] Shen, eye exam pending 2. Consultants: GI - Dr. Shen, ophtho - [facility], Dr. Duque 3. RTC 6 mos with A1C Signatures Electronically signed by : Betsy Smith M.D.; Feb 12 2015 12:13PM EST (Author) documented in this encounter Plan of Treatment Upcoming Encounters Date Type Department Care Team (Late st Contact Info) Description 06/09/2024 3:00 PM EST Office Visit [facility] [address] [place] [phone] [place] [address] [place] [phone] documented as of this encounter Visit Diagnoses Not on filedocumented in this encounter Care Teams Yard Stocker Relationship Specialty Start Date End Date Betsy Smith MD [address] [place] [id number] PCP - General 02/08/15 documented as of this encounter
--- OUTSIDE RECORDS SUMMARY | 2024-03-25 02:52 | XMS_ITS | Encounter Summary ---
Author Organization [facility] yste Address [address] [place] [address] Care Team Providers Care Coding Validator Name Role Phone Unavailable Primary Care Provider Unavailabl e Encounter Details Date Type Department Care Team (Late st Contact Info) Description 11/04/2012 Office Visit Converted [facility] [address] [place] [phone] [place] [address] [place] [address] Social History Tobacco Use Types Packs/Day Years Used Date Smoking Tobacco: Never Assessed Comments Unknown Sex and Gender Information Value Date Recorded Sex Assigned at Not on file Legal Sex Female 12:10 PM EDT Gender Identity Not on file Sexual Orientation Not on file documented as of this encounter Last Filed Vital Signs Vital Sign Reading Time Taken Comments Blood Pressure 126/74 11/04/2012 9:31 AM EDT Pulse - - Temperature - - Respiratory Rate - - Oxygen Saturation - - Inhaled Oxygen Concentration - - Weight 83.9 kg (185 lb 0.2 oz) 11/04/2012 9:31 A M EDT Height 172.7 cm (5' 8 ) 11/04/2012 9:31 AM EDT Body Mass Index 28.13 11/04/2012 9:31 AM EDT documented in this encounter Progress Notes * Betsy Smith MD - 11/04/2012 9:15 AM EDT Chief Complaint MEDICARE WELLNESS History of Present Illness HPI: pleasant 77yo presents for updated physical examination. Feels well overall but thinks she needs meds refilled. Denies headaches, CP, palpitations, SOB, abdominal pain, difficulty withurination, falls, abnl vaginal discharge/bleeding. Notes that previous evaluation for R. leg pain results in therapy resolving the swelling issue but the pain at the lower kamara is still present, worsened when she walks. Denies limping or injury. ROS (+) for decreased hearing. Reports also that she saw someone different for her last eye exam and that they gave her glasses that don't work right. She is also being followed for by cataracts. ROS otherwise negative. Active Problems 1. Anal Fissure 565.0 2. Bone Pain In The Leg (Below The Knee) Right 3. Cataract Bilateral 366.9 4. Colonic Diverticulosis 562.10 5. Constipation 564.00 6. Esophageal Reflux 530.81 7. Female Stress Incontinence 625.6 8. Hyperlipidemia 272.4 9. Hypertension 401.9 10. Osteoarthritis 715.90 11. Osteopenia 733.90 12. Renal Insufficiency 593.9 13. Type 2 Diabetes Mellitus - Uncomplicated, Controlled 250.00 14. Vitamin D Deficiency 268.9 Past Medical History ?? History of Benign Polyps Of The Large Intestine V12.72 ?? History of Herpes Zoster (Shingles) 053.9 ?? History of Right Shoulder Fracture 818.0 Denied ?? History of Aneurysm Of The Abdominal Aorta Surgical History ?? History of Laminectomy Lumbar ?? History of Tonsillectomy Family History ?? Paternal history of Congestive Heart Failure ?? Paternal history of Father At Age 87 ?? Maternal history of Diabetes Mellitus V18.0 ?? Maternal history of Mother At Age 92 ?? Maternal history of Renal Failure Social History ?? Being A Social Drinker ?? Marital History - ?? 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 Amlodipine Besy-Benazepril HCl 5-40 MG Oral Capsule; TAKE 1 CAPSULE DAILY Requested for: 17Sep2012; Last Rx:17Sep2012 2. Aspirin 81 MG Oral Tablet; TAKE 1 TABLET DAILY; Therapy: (Recorded:04Nov2012) to 3. Hydrochlorothiazide 25 MG Oral Tablet; 1 po qam Requested for: 17Sep2012; Last Rx:17Sep2012 4. MiraLax Oral Powder; DIRECTED PRN; Therapy: (Recorded:04Nov2012) to 5. Pioglitazone HCl-Metformin HCl 15-850 MG Oral Tablet; Take 1 tablet twice daily with meals Requested for: 17Sep2012; Last Rx:17Sep2012 6. Prevacid SoluTab 30 MG Oral Tablet Dispersible; TAKE 1 TABLET DAILY Requested for: 17Sep2012; Last Rx:17Sep2012 7. Triple Flex 500-400-125 MG Oral Tablet; TAKE DIRECTED; Therapy: 04Nov2012 to 8. Vitamin D3 1000 UNIT Oral Capsule; Therapy: (Recorded:17Sep2012) to 9. Zetia 10 MG Oral Tablet; TAKE 1 TABLET DAILY Requested for: 17Sep2012; Last Rx:17Sep2012 Allergies 1. Lipitor TABS Immunizations 1 Influenza [id number] Pneumococcal [id number] Tdap [id number] Zoster [id number] Vitals Signs [Data Includes: Current Encounter] Systolic: 126 Diastolic: 74 BMI Calculated: 28.04 BSA Calculated: 1.98 Height: 5 ft 8 in Weight: 185 lb Physical Exam Constitutional General appearance: No acute distress, well appearing and well nourished. Head and Face Head and face: Normal. Eyes Conjunctiva and lids: No swelling, erythema or discharge. Pupils and irises: Equal, round, reactive to light. Ears, Nose, Mouth, and Throat External inspection of ears and nose: Normal. Otoscopic examination: Tympanic membranes translucent with normal light reflex. Canals patent without erythema. Hearing: Normal. Nasal mucosa, septum, and turbinates: Normal without edema or erythema. Lips, teeth, and gums: Normal, good dentition. Oropharynx: Normal with no erythema, edema, exudate or lesions. Neck Thyroid: Normal, no thyromegaly. Pulmonary Respiratory effort: No increased work of breathing or signs of respiratory distress. Auscultation of lungs: Clear to auscultation. Cardiovascular Distant heart sounds RR. Carotid pulses: 2+ bilaterally. No carotid bruits bilaterally. Chronic ankle swelling but no LE edema in the shins bilaterally. Chest Breasts: Normal, no dimpling or skin changes appreciated. Palpation of breasts and axillae: Abnormal. Diffuse fibrocystic changes bilaterally without masses,skin changes, nipple discharge, or axillary adenopathy. Abdomen Abdomen: Non-tender, no masses. (+)BS, soft. Liver and spleen: No hepatomegaly or splenomegaly. Genitourinary Deferred. Lymphatic Palpation of lymph nodes in neck: No lymphadenopathy. Palpation of lymph nodes in axillae: No lymphadenopathy. Musculoskeletal Gait and station: Normal. Digits and nails: Normal without clubbing or cyanosis. Joints, bones, and muscles: Abnormal. R. anterior lower shine (tibia) is the area of pain, not significantly worsened with palpation; no edema; chronic spider veinsa. Range of motion: Normal. Stability: Normal. Neurologic Cranial nerves: Cranial nerves II-XII intact. Reflexes: 2+ and symmetric. Sensation: No sensory loss. Psychiatric Judgment and insight: Normal. Orientation to person, place, and time: Normal. Mood and affect: Normal. Results/Data Stable CMP, CBC, TSH, lipids (LDL 89) except Cr 1.5 (previously 1.3 in 03/18 and 1/1 in 09/15); notestable A1C at 6.0 ECG Results and Interpretation: Rhythm and rate:. Normal sinus rhythm. Ventricular rate is 68 beats per minute. NE Interval: first degree heart block. QRS: the QRS is normal ST segment: The ST segments are normal. Assessment 1. Health Maintenance V70.0 2. Hyperlipidemia 272.4 3. Hypertension 401.9 4. Type 2 Diabetes Mellitus - Uncomplicated, Controlled 250.00 5. Renal Insufficiency 593.9 6. Osteopenia 733.90 by DEXA (04/10) 7. Osteoarthritis 715.90 8. Esophageal Reflux 530.81 9. Bone Pain In The Leg (Below The Knee) Right Plan Esophageal Reflux (530.81) ?? Prevacid SoluTab 30 MG Oral Tablet Dispersible; TAKE 1 TABLET DAILY Requested for: 04Nov2012; Last Rx:04Nov2012; Edited Hyperlipidemia (272.4) ?? Zetia 10 MG Oral Tablet; TAKE 1 TABLET DAILY Requested for: 04Nov2012; Last Rx:04Nov2012; Edited Hypertension (401.9) ?? Amlodipine Besy-Benazepril HCl 5-40 MG Oral Capsule; TAKE 1 CAPSULE DAILY Requested for: 04Nov2012; Last Rx:04Nov2012; Edited ?? Hydrochlorothiazide 25 MG Oral Tablet; 1 po qam Requested for: 04Nov2012; Last Rx:04Nov2012; Edited Type 2 Diabetes Mellitus - Uncomplicated, Controlled (250.00) ?? Pioglitazone HCl-Metformin HCl 15-850 MG Oral Tablet; Take 1 tablet twice daily with meals Requested for: 04Nov2012; Last Rx:[id number]; Edited Discussion/Summary 1. Full age appropriate hx and physical exam performed today 2. Health maintenance - order given for mammo (after 12/10/12) and DEXA; she will revisit Dr.Nolan yong, for re-eval of glasses; no further Paps unless abnlities; Tdap 10/15, PVX 03/16, Zostavax 09/12; recommend annual flu vaccine in the fall; colonoscopy updated 09/11, to be repeat in 2018 witg ; neg AAA screening 12/15 3. Annual Wellness Visit ? patient denies confusion or new issues with memory. No changes infunctional ability, to include no recent falls, no difficulties with ADLs, no home safety issues, but slight decrease in hearing. Consultants include: ophtho - Dr. Lugo, GI - Dr. Shen 4. HTN - BP stable with stable lytes on lotrel #90, 3RF and HCTZ #90, 3RF 5. DM II - BGs stable on actoplusmet #180, 3RF but discussed that we will need to discontinue metformin if Cr should remain elevated; recheck BMP, A1C in 3 months 6. Hyperlipidemia - lipids at goal on zetia #90, 3RF with healthy diet 7. OA - continue glucoasmine chondroitin sulfate family of meds should it help her pain sxs; in addition, topical therapy such as capsaicin cream would be good as well; discussed minimizing NSAID thereapy in light of worsened kidney function; recommend tylenol ES 2 tabs up to 3x/day as needed for pain 8. R. anterior kamara pain - edema has resolved but pain persists; update R. tib- fib X-ray for further eval 9. GERD - renew prevacid #90, 3RF 10. Renal insufficiency - minimize NSAIDs as abovel discussed importance of good BP and BG control;repeat BMP in 3 months; note nl microalbumin 11. Osteopenia - continue Ca/vit D supplementation with weight-bearing exercose; updated DEXA ordered 12. Decreased hearing - wants to do screening hearing test at next visit 13. Lab slip given for BMP and A1C; return for f/u in 3 months - hearing test at that time as well Signatures Electronically signed by : Betsy Smith M.D.; Nov 04 2012 1:13PM (Author) documented in this encounter Plan of Treatment Upcoming Encounters Date Type Department Care Team (Late st Contact Info) Description 06/09/2024 3:00 PM EST Office Visit [facility] [address] [place] [phone] [place] [address] [place] [phone] documented as of this encounter Visit Diagnoses Not on filedocumented in this encounter
--- OUTSIDE RECORDS SUMMARY | 2024-03-25 02:52 | XMS_ITS | Encounter Summary ---
Author Organization [facility] yste Address [address] [place] [address] Care Team Providers Care Red Hat Linux Administrator Name Role Phone Betsy Smith MD Primary Care Provider [phone] Encounter Details Date Type Department Care Team (Late st Contact Info) Description 09/30/2013 External CPT II M[employer] - [employer] [facility] Social History Tobacco Use Types Packs/Day Years [...] Office Visit [facility] [address] [place] [phone] Betsy Smith MD [address] [place] [address] documented as of this encounter Visit Diagnoses Not on filedocumented in this encounter Care Teams Red Hat Linux Administrator Relationship Specialty Start Date End Date Betsy Smith MD [address] [place] [id number] PCP - General 02/08/15 documented as of this encounter
--- OUTSIDE RECORDS SUMMARY | 2024-03-25 02:52 | XMS_ITS | Encounter Summary ---
Author Organization [facility] yste Address [address] [place] [address] Care Team Providers Care Salesperson Terrazzo Tiles Name Role Phone Unavailable Primary Care Provider Unavailabl e Encounter Details Date Type Department Care Team (Late st Contact Info) Description 02/24/2013 Office Visit Converted [facility] [address] [place] [address] [phone] [place] [address] [place] [id number] Social History Tobacco Use Types Packs/Day Years Used Date Smoking Tobacco: Never Assessed Comments Unknown Sex and Gender Information Value Date Recorded Sex Assigned at Not on file Legal Sex Female 12:10 PM EDT Gender Identity Not on file Sexual Orientation Not on file documented as of this encounter Last Filed Vital Signs Vital Sign Reading Time Taken Comments Blood Pressure 120/70 02/24/2013 11:43 AM EDT Pulse 60 02/24/2013 11:43 AM EDT Temperature - - Respiratory Rate - - Oxygen Saturation - - Inhaled Oxygen Concentration - - Weight 83.3 kg (183 lb 8.9 oz) 02/24/2013 11:43 AM EDT Height - - Body Mass Index 27.91 11/04/2012 9:31 AM EDT documented in this encounter Progress Notes * Betsy Smith MD - 02/24/2013 11:30 AM EDT Chief Complaint 3 MO F/U-HYPERTENSION,HYPERLIPIDEMIA,DM History of Present Illness HPI: pleasant 77yo woman presents for follow-up of blood sugars and kidney function. Discontinued anti-inflammatories as previously recommended, but her local orthopedist, Dr. Maycol aJckman has prescribed voltaren gel. She can tell a difference with the med and wonders about the version you can buy online without a prescription. He has gave her 3 shots, which gave tremendous relief but for only 1 day. She applies the voltaren gel to the side of her feet. Doesn't need med refills today. Denies CP, palpitations, SOB, abdominal pain, n/v. Notes hearing isbetter and thinks deficit at last visit was due to mild cold sxs. Reports eating ice cream cone when going through the [employer] thru with her grandchildren. ROS otherwise negative. Active Problems reviewed today Current Meds 1. Amlodipine Besy-Benazepril HCl 5-40 [...] daily with meals Requested for: 04Nov2012; Last Rx:[id number] 6. Prevacid SoluTab 30 MG Oral Tablet Dispersible; TAKE 1 TABLET DAILY Requested for: 04Nov2012; Last Rx:[id number] 7. Triple Flex 500-400-125 MG Oral Tablet; TAKE DIRECTED; Therapy: 04Nov2012 to 8. Vitamin D3 1000 UNIT Oral Capsule; Therapy: (Recorded:17Sep2012) to 9. Voltaren 1 % Transdermal Gel; APPLY TOPICALY 4 X DAILY; Therapy: 24Feb2013 to 10. Zetia 10 MG Oral Tablet; TAKE 1 TABLET DAILY Requested for: 04Nov2012; Last Rx:04Nov2012 Allergies 1. Lipitor TABS Vitals Signs [Data Includes: Current Encounter] Heart Rate: 60, Systolic: 120, Diastolic: 70, BMI Calculated: 27.82, BSA Calculated: 1.97, Weight: 183 lb 9 oz Physical Exam General Complete Exam (Brief): Constitutional General appearance: No acute distress, well appearing and well nourished. Pulmonary Respiratory effort: No increased work of breathing or signs of respiratory distress. Auscultation of lungs: Clear to auscultation. Musculoskeletal Gait and station: Normal. Psychiatric Orientation to person, place, and time: Normal. Mood and affect: Normal. Results/Data renal function stable with Cr 1.4 (previously 1.5 in 10/17); A1C slightly worsened from 6.0 (10/17) to 6.3 Assessment 1. Renal Insufficiency 593.9 2. Type 2 Diabetes Mellitus - Uncomplicated, Controlled 250.00 3. Osteoarthritis 715.90 4. Hypertension 401.9 Discussion/Summary Discussion Summary Free Text Note Form: 1. Renal insufficiency - remain off of oral NSAIDs and continue to work on maintaining good BPs andBGs; f/u BMP in 3 mos 2. DM II - slightly worsened function; no change in actoplusmet; encourage regular physical activity and moderation in sweets and unhealthy starches; f/u A1C in 3 mos - will need to add anti-diabeticmed if continues to worsen 3. HTN - BP stable on HCTZ 4. OA - agree with voltaren gel with decreased systemic effects, otilio since it does help her pain; continue to minimize oral NSAIDs 5.Health maintenance - flu vaccine given today 6. Next PE due after 11/04/13 7. F/U in 3 mos; lab order given to BMP and A1C for that visit Signatures Electronically signed by : Betsy Smith M.D.; Feb 24 2013 12:53PM (Author) documented in this encounter Plan of Treatment Upcoming Encounters Date Type Department Care Team (Late st Contact Info) Description 06/09/2024 3:00 PM EST Office Visit [facility] [address] [place] [phone] [place] [address] [place] [address] [phone] documented as of this encounter Visit Diagnoses Not on filedocumented in this encounter
[2024-03-25 03:06] LABS: Albumin Level 4.6 g/dl (3.5-5.0); Chloride 88 mmol/L (98-107); Sodium 123 mmol/L (136-145)
[2024-03-25 03:07] LABS: Potassium 4.4 mmoL/L (3.5-5.1)
[2024-03-25 03:08] LABS: Basophils # 0.1 K/mm3 (0-0.2); Basophils % 0.7 % (0.1-2.0); Eosinophils # 0.1 K/mm3 (0.0-0.4); Eosinophils % 0.5 % (0.1-12.0); Hematocrit 40.5 % (37.0-47.0); Hemoglobin 14.7 g/dL (12.2-16.2); Lymphocytes # 1.4 K/mm3 (0.7-4.5); Lymphocytes % 14.1 % (10-50); Mean Corpuscular HGB Conc 36.4 g/dL (31.8-35.4); Mean Corpuscular Hemoglobin 30.3 pg (27.0-31.2); Mean Corpuscular Volume 83.3 fl (81-99); Mean Platelet Volume 8.2 fl (7.4-10.4); Monocytes # 0.6 K/mm3 (0.1-1.0); Monocytes % 6.1 % (1.7-9.3); Neutrophils # 7.9 K/mm3 (1.8-7.8); Neutrophils % 78.7 % (37.0-80.0); Platelet Count 258 K/mm3 (142-424); Red Blood Count 4.86 M/mm3 (4.20-5.40); Red Cell Distribution Width 15.7 % (11.5-17.5)
[2024-03-25 03:09] LABS: Alanine Aminotransferase 21 U/L (12-78); Anion Gap 13.4 mEq/L (5-15); Aspartate Amino Transferase 31 U/L (14-36); Bilirubin,Total 0.8 mg/dl (0.2-1.3); Blood Urea Nitrogen 31 mg/dl (7-17); Carbon Dioxide 26 mmol/L (22.0-30.0); Creatinine Clearance Estimated 41 mL/min (50-200); Estimated Glomerular Filt Rate 52 ml/min (>60); GFR (African American) 63 ML/MIN (>60)
[2024-03-25 03:10] LABS: Albumin/Globulin Ratio 1.8 (1.1-1.8); Alkaline Phosphatase 91 U/L (38-126); Calcium 9.3 mg/dl (8.4-10.2); Globulin 2.6 g/dL (1.3-3.2); Glucose 150 mg/dl (74-100); Total Protein,Serum 7.2 g/dl (6.3-8.2)
[2024-03-25 03:46] VITALS: BP 170/80; PULSE 75; RESP 20; TEMP 36.8; O2SAT 100
[2024-03-25 04:00] LABS: HIV (1&2) Antibody Rapid NONREACTIVE (NONREACTIVE)
[2024-03-26 06:16] LABS: HCV Ab Non Reactive (Non Reactive)
== END 2024-03-25 03:51 | disposition home or self-care (01) ==
LOC: ER 02:44
PROVIDERS: Emergency Provider Emergency Medicine
DX: E87.1 Hypo-osmolality and hyponatremia (principal); K59.00 Constipation, unspecified; R68.2 Dry mouth, unspecified; R14.0 Abdominal distension (gaseous)
CPT/HCPCS: 80053; 85025; 86803; 87389; 99283

== ENCOUNTER 2024-04-23 13:11 | Outpatient (CLI) | payer MEDICARE, BC, SELFPAY ==
[2024-04-23 13:19] LABS: Microscopic, Urine URINE MICROSCOPIC (MICROSCOPIC)
[2024-04-23 14:03] LABS: Appearance,Urine CLEAR (Clear); Bilirubin,Urine Negative (Negative); Blood, Urine Negative (Negative); Color,Urine YELLOW (Yellow); Glucose,Urine (UA) Negative (Negative); Ketones,Urine TRACE (Negative); Leukocyte Esterase,Urine TRACE (Negative); Nitrate,Urine Negative (Negative); Protein,Urine Negative (Negative); Specific Gravity, Urine 1.015 (1.005-1.030); Urobilinogen,Urine 0.2 EU/dl (0.2)
[2024-04-23 14:12] LABS: Bacteria,Urine Trace /lpf; Hyaline Casts,Urine OCC #/lpf (0); Squamous Epithelial Cell,Urine Occasional #/hpf (0-5)
[2024-04-23 14:18] LABS: Chloride 96 mmol/L (98-107)
[2024-04-23 14:19] LABS: Potassium 4.6 mmoL/L (3.5-5.1); Sodium 129 mmol/L (136-145)
[2024-04-23 14:22] LABS: Anion Gap 7.6 mEq/L (5-15); Blood Urea Nitrogen 24 mg/dl (7-17); Calcium 10.6 mg/dl (8.4-10.2); Carbon Dioxide 30 mmol/L (22.0-30.0); Estimated Glomerular Filt Rate 52 ml/min (>60); GFR (African American) 63 ML/MIN (>60); Glucose 89 mg/dl (74-100)
== END 2024-04-23 23:59 | disposition home or self-care (01) ==
LOC: LAB 13:13
PROVIDERS: PCP Family Medicine; Visit Provider Internal Medicine
DX: N39.490 Overflow incontinence (principal); N18.31 Chronic kidney disease, stage 3a
CPT/HCPCS: 36415; 80048; 81001; 87086; 87088; 87186

== ENCOUNTER 2024-06-16 14:05 | Outpatient (CLI) | payer MEDICARE, BC, SELFPAY ==
[2024-06-16 16:04] LABS: Anion Gap 8.1 mEq/L (5-15); Blood Urea Nitrogen 25 mg/dl (7-17); Calcium 9.7 mg/dl (8.4-10.2); Carbon Dioxide 28 mmol/L (22.0-30.0); Chloride 94 mmol/L (98-107); Estimated Glomerular Filt Rate 59 ml/min (>60); GFR (African American) 72 ML/MIN (>60); Glucose 76 mg/dl (74-100); Potassium 5.1 mmoL/L (3.5-5.1); Sodium 125 mmol/L (136-145)
== END 2024-06-16 23:59 | disposition home or self-care (01) ==
LOC: LAB 14:07
PROVIDERS: PCP Family Medicine; Visit Provider Internal Medicine
DX: N18.31 Chronic kidney disease, stage 3a (principal)
CPT/HCPCS: 36415; 80048

== ENCOUNTER 2024-06-24 19:21 | Emergency (ER) | payer MEDICARE, BC, SELFPAY ==
[2024-06-24 19:29] VITALS: BP 153/87; PULSE 70; RESP 18; TEMP 36.8; O2SAT 100; BMI 26.0
--- NOTE | 2024-06-24 19:34 | XR_ITS ---
PROCEDURE INFORMATION: Exam: XR Left Shoulder Exam date and time: 06/24/2024 7:43 PM Age: 89 years old Clinical indication: Injury or trauma; Fall; Other: Pain; Additional info: Shoulder injury TECHNIQUE: Imaging protocol: Radiologic exam of the left shoulder. Views: 2 or more views. COMPARISON: CR (SHOULDER INTERNAL, SHOULDER, SHOULDER INTERNAL) 10/21/2018 2:31 PM FINDINGS: Bones/joints: Moderate Degenerative changes in the acromioclavicular joint and glenohumeral joint.. There is no evidence of acute fracture.There is no evidence of malalignment or dislocation. Subacromial space narrowing. Osteophyte formation from the acromion also narrows this region. Findings consistent with impingement syndrome. Soft tissues: Normal. IMPRESSION: 1. Moderate Degenerative changes in the acromioclavicular joint and glenohumeral joint.. 2. There is no evidence of acute fracture.There is no evidence of malalignment or dislocation. 3. Subacromial space narrowing. Osteophyte formation from the acromion also narrows this region. Findings consistent with impingement syndrome.
--- NOTE | 2024-06-24 19:35 | XR_ITS ---
PROCEDURE INFORMATION: Exam: XR Left Wrist Exam date and time: 06/24/2024 7:51 PM Age: 89 years old Clinical indication: Injury or trauma; Fall; Other: Pain; Additional info: Wrist injury TECHNIQUE: Imaging protocol: Radiologic exam of the left wrist. Views: 1 or 2 views. COMPARISON: No relevant prior studies available. FINDINGS: Bones/joints: Lucency through the radial styloid may represent nondisplaced fracture. The acute fracture lucency is seen along the dorsal aspect of the distal radius on the lateral.. 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 Soft tissues: Soft tissue swelling of the wrist IMPRESSION: 1. Lucency through the radial styloid may represent nondisplaced fracture. The acute fracture lucency is seen along the dorsal aspect of the distal radius on the lateral.. 2. 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
--- NOTE | 2024-06-24 19:48 | PC.NURSE ---
Pt to x-ray by wheelchair
--- NOTE | 2024-06-24 20:20 | PC.NURSE ---
ROUNDING COMPLETE; NO NEED
[2024-06-24 20:21] VITALS: PULSE 64; O2SAT 98
--- NOTE | 2024-06-24 21:05 | PC.NURSE ---
ROUNDING DONE; NO NEEDS
--- NOTE | 2024-06-24 21:45 | HMH.EDGENADL ---
Discharge Plan Disposition Patient Disposition: Home, Self-Care Chief Complaint: Extremity Injury, Upper Prescriptions Prescriptions: No Action pioglitazone-metformin 15-1,000 mg tablet, ER multiphase 24 hr 1 tab PO DAILY ranitidine HCl 300 mg capsule 300 mg PO DAILY glucosamine-chondroitin [Osteo Bi-Flex] 250-200 mg tablet 2 tab PO QPC meclizine 25 mg tablet 25 mg PO BID PRN (Reason: dizziness) Qty: 60 0RF hydrocodone-acetaminophen 5-325 mg Tablet 1 tab PO Q6HP PRN (Reason: Mild To Moderate Pain (1-6)) 3 Days Qty: 12 0RF meloxicam 15 mg tablet 15 mg PO DAILY 30 Days Qty: 30 0RF ezetimibe 10 mg tablet 10 mg PO DAILY 30 Days Qty: 30 0RF amlodipine-atorvastatin 5-40 mg tablet 1 tab PO DAILY 30 Days Qty: 30 0RF Referrals Follow up/Referrals: Amado Pope MD [Primary Care Provider] - See instructions Servando Mckeon DO [Staff Physician] - See instructions Activity Restrictions/Add. Instructions Additional Instructions/Restrictions: Call Dr. Mckeon to schedule follow-up in 1 to 2 weeks for further imaging of your left wrist. Call your family doctor to establish care for this visit to the emergency department and schedule follow-up within 48 hours to ensure improvement. If you have any worsening of your condition or any other concerning signs or symptoms, return to the emergency department or your primary care doctor for further evaluation. Do not get splint wet. Take Tylenol 1000 mg every 6 hours (4 times daily) and ibuprofen 400 mg every 6 hours (4 times daily) as needed with food and water to prevent GI upset and kidney damage. Clinical Impressions Clinical Impression: Closed fracture distal radius and ulna Qualifiers: Encounter type: initial encounter Laterality: left Qualified Code(s): S52.502A - Unspecified fracture of the lower end of left radius, initial encounter for closed fracture Print Language Print Language: Rwandan Discharge ED Provider: Jacky Bustos General Adult [facility] General Chief complaint: Extremity Injury, Upper Stated complaint: AO 2-18 fell and hurt left side Time Seen by Provider: 06/24/24 20:35 Mode of Arrival: Ambulatory Source of Information: Patient and Relative Limitations: No Limitations Description of Symptoms (Recalled from ER Triage Doc. by RN): Pt states she fell outside in the grass when she was trying to get her cats inside. Pt did not have LOC, -BT. Pt is having left shoulder and left wrist pain. strong pulses, brisk cap refill, limited ROM to wrist and shoulder. Pain is a 10. Pt took 2 extra strength tylenol. History of Present Illness HPI narrative: Please note that above description of symptoms, in this electronic medical record under categorization of recalled from ER triage doctor by RN are reflective of an initial nursing assessment, however, is not reflective of my full history and physical exam that was personally taken and clarified. Consequentially, this preceding description of symptoms, which may include the patient's categorized chief complaint in the EMR, do not reflect my personal clinical impression, and the ultimate description of history of present illness and patient stated complaints should be deferred to this section of the note. Unless stated otherwise or congruent with this section of the note, additional signs, symptoms, or incongruence should be interpreted as inaccurate with my clinical impression. Related Data Home Medications ?Medication ?Instructions ?Recorded ?Confirmed glucosamine-chondroitin 250 mg-200 2 tab PO QPC 10/21/18 06/24/24 mg tablet (Osteo Bi-Flex) pioglitazone 15 mg-metformin ER 1 tab PO DAILY 10/21/18 06/24/24 1,000 mg tablet,extend release 24hr mp ranitidine HCl 300 mg capsule 300 mg PO DAILY 10/21/18 06/24/24 Previous Rx's ?Medication ?Instructions ?Recorded meclizine 25 mg tablet 25 mg PO BID PRN dizziness #60 tabs 05/10/20 amlodipine 5 mg-atorvastatin 40 mg 1 tab PO DAILY 30 days #30 tabs 06/17/23 tablet ezetimibe 10 mg tablet 10 mg PO DAILY 30 days #30 tabs 06/17/23 hydrocodone 5 mg-acetaminophen 325 1 tab PO Q6HP PRN Mild To Moderate 06/17/23 mg tablet Pain (1-6) 3 days #12 tabs meloxicam 15 mg tablet 15 mg PO DAILY 30 days #30 tabs 06/17/23 Allergies Allergy/AdvReac Type Severity Reaction Status Date / Time No Known Allergies Allergy Verified 05/10/20 14:43 [facility] Disclaimer: The information contained in this section may have been updated after the patient was seen, as this information can be updated by other users. Medical History (Updated 06/24/24 @ 21:50 by Jacky Bustos MD) DM type 2 (diabetes mellitus, type 2) Hypertension High cholesterol Family History No significant family history Social History Smoking Status: Never smoker alcohol intake: never substance use type: denies use current occupational status: previously employed and retired Travel in the last 8 weeks: None household members: other housing: house Have you lived/traveled outside US in past 30 days?: No Contact w/someone who lives/traveled outside US past 30 days?: No Exposure to someone with infectious disease in past 14 days?: No Do you have a fever (greater than 100.4 F or 38 C)?: No Have you tested positive for COVID-19: No Exposed to someone with COVID-19 in past 14 days?: No Do you have a sore throat?: No Do you have a cough?: No Do you have any weakness?: No Do you have any diarrhea?: No Are you experiencing any unusual bleeding?: No Do you have any muscle aches/pain?: No Do you have any abdominal pain?: No Are you experiencing loss of taste or smell?: No Other Medical History Have you received the Flu Vaccine for this season: No Have you received the Pneumonia Vaccine: No ROS Obtained: Yes All systems reviewed & no additional complaints except as documented Physical Exam General General appearance: alert Head Head exam: atraumatic and normocephalic Eye Eye exam: Present normal appearance, PERRL and EOMI Neck Neck exam: Present normal inspection, full ROM and trachea midline Respiratory Respiratory exam: Absent respiratory distress, wheezes, stridor, accessory muscle use or prolonged expiratory phase Cardiovascular Cardiovascular exam: Present other (Pulses equal symmetric in upper and lower extremities) Abdominal Exam Abdominal exam: Present soft; Absent distention, tenderness or pulsatile mass Extremities Exam Extremities exam: Present other (Per MDM); Absent edema Neurological Exam Neurological exam: Present alert, oriented X3 and CN II-XII intact; Absent motor sensory deficit Skin Skin exam: Present warm and dry; Absent diaphoresis or erythema Medical Decision Making Medical Records Medical records reviewed: Yes I reviewed the patient's medical records. Screening: Per USPSTF and CDC recommendations, given the prevalence of disease in our region, it is our hospital?s policy to screen for HIV and viral Hepatitis for all patients aged 18 and over and those with ongoing risk factors. Adama Inquiry Pt receiving controlled substance: No Adama was queried for this patient: No Vital Signs: 06/24/24 19:29 06/24/24 20:21 Temperature 98.3 F Temperature Source Oral Pulse Rate 64 Pulse Rate [Right] 70 Respiratory Rate 18 Blood Pressure [Right Arm] 153/87 H Blood Pressure Mean [Right Arm] 109 Blood Pressure Source [Right Arm] Automatic Cuff Blood Pressure Position [Right Arm] Sitting 02 Sat by Pulse Oximetry 100 98 Oxygen Delivery Method Room Air Orders (Tests/Meds): ORDERS Category Date Time Status XR shoulder LT min 2V Stat Exams 06/24/24 19:34 Completed XR wrist LT 2V Stat Exams 06/24/24 19:35 Completed Medical Decision Narrative: 89-year-old female presenting with fall. She states that she slipped, caught herself on an outstretched arm left upper extremity. Having tenderness in her left shoulder and left wrist. Moderate in intensity, took Tylenol and it seemed to help a little bit. Came in for further evaluation. History obtained the patient. On arrival, very pleasant, well-appearing woman. Some tenderness about shoulder, but full range of motion. No outward signs of abnormality or deformity. Left wrist with tenderness, swelling, concern for deformity given significant swelling distal radius at radiocarpal joint. Differential includes sprain, strain, dislocation, fracture among others. X-rays were obtained, on independent interpretation, patient has ulnar styloid and distal radial fracture nondisplaced, nonangulated. I placed left upper extremity plaster sugar-tong splint. Patient was then placed in sling. Patient requires orthopedic bracing due to weakness or deformity requiring stabilization. The use of this brace will benefit the patient's functionality and prevent further injury. Meds for home-going were discussed, patient states that last time she had opiate medication it caused her to hallucinate, opted out at this time. Because patient at baseline without signs or symptoms of clinical decompensation, deemed appropriate for discharge. Results were relayed to patient who voiced understanding and were agreeable to outpatient management and follow up. I discussed my clinical impression with patient and answered all questions. At this time, the evidence for any other entities in the differential is insufficient to warrant any further testing or ED observation. This was explained as well. Advisory was given that persistent or worsening symptoms require further evaluation. I confirmed the understanding of this discussion. Real Estate Listing Consultant disclaimer Much of this encounter note is an electronic electric installer spoken language to printed text. Electronic electric installer of the spoken language may permit errors. Although I have reviewed the note, some errors may still exist. Procedures Orthopedic Splinting/Casting Injury #1: Side: left Upper Extremity Injury Location: forearm and wrist Upper Extremity Immobilizer: sugar tong splint Post Cast/Splinting Neuro Status: intact and no change Post Cast/Splinting Vasc Status: intact and no change Critical Care Critical Care Time Critical Care Time: No
[2024-06-24 21:54] VITALS: BP 149/75; PULSE 61; RESP 22; TEMP 36.9; O2SAT 97
== END 2024-06-24 21:59 | disposition home or self-care (01) ==
PROVIDERS: Emergency Provider Emergency Medicine; PCP Family Medicine
DX: M25.512 Pain in left shoulder (principal); M25.532 Pain in left wrist; S52.502A Unspecified fracture of the lower end of left radius, initial encounter for closed fracture; W01.0XXA Fall on same level from slipping, tripping and stumbling without subsequent striking against object, initial encounter; Y93.89 Activity, other specified; Y92.007 Garden or yard of unspecified non-institutional (private) residence as the place of occurrence of the external cause
CPT/HCPCS: 29125; 73030; 73100; 99283

== ENCOUNTER 2024-06-30 13:24 | Outpatient (CLI) | payer MEDICARE, BC, SELFPAY ==
[2024-06-30 14:29] LABS: Chloride 90 mmol/L (98-107); Potassium 4.9 mmoL/L (3.5-5.1); Sodium 128 mmol/L (136-145)
[2024-06-30 14:32] LABS: Anion Gap 10.9 mEq/L (5-15); Blood Urea Nitrogen 24 mg/dl (7-17); Calcium 10.4 mg/dl (8.4-10.2); Carbon Dioxide 32 mmol/L (22.0-30.0); Estimated Glomerular Filt Rate 68 ml/min (>60); GFR (African American) 82 ML/MIN (>60); Glucose 91 mg/dl (74-100)
[2024-07-02 06:14] LABS: Osmolality, Urine 406 mOsmol/kg (.)
== END 2024-06-30 23:59 | disposition home or self-care (01) ==
LOC: LAB 13:27
PROVIDERS: PCP Family Medicine; Visit Provider Internal Medicine
DX: E87.1 Hypo-osmolality and hyponatremia (principal)
CPT/HCPCS: 36415; 80048; 83930; 83935

== ENCOUNTER 2024-07-10 15:44 | Outpatient (CLI) | payer MEDICARE, BC, SELFPAY ==
[2024-07-10 18:13] LABS: Anion Gap 9.5 mEq/L (5-15); Blood Urea Nitrogen 21 mg/dl (7-17); Calcium 9.3 mg/dl (8.4-10.2); Carbon Dioxide 25 mmol/L (22.0-30.0); Chloride 96 mmol/L (98-107); Estimated Glomerular Filt Rate 68 ml/min (>60); GFR (African American) 82 ML/MIN (>60); Glucose 92 mg/dl (74-100); Potassium 4.5 mmoL/L (3.5-5.1); Sodium 126 mmol/L (136-145)
== END 2024-07-10 23:59 | disposition home or self-care (01) ==
LOC: LAB 15:47
PROVIDERS: PCP Family Medicine; Visit Provider Internal Medicine
DX: N18.31 Chronic kidney disease, stage 3a (principal)
CPT/HCPCS: 36415; 80048

== ENCOUNTER 2024-07-21 12:15 | Outpatient (CLI) | payer MEDICARE, BC, SELFPAY ==
[2024-07-21 13:32] LABS: Chloride 94 mmol/L (98-107); Potassium 4.6 mmoL/L (3.5-5.1); Sodium 130 mmol/L (136-145)
[2024-07-21 13:35] LABS: Anion Gap 10.6 mEq/L (5-15); Blood Urea Nitrogen 16 mg/dl (7-17); Calcium 10.2 mg/dl (8.4-10.2); Carbon Dioxide 30 mmol/L (22.0-30.0); Estimated Glomerular Filt Rate 52 ml/min (>60); GFR (African American) 63 ML/MIN (>60); Glucose 94 mg/dl (74-100)
== END 2024-07-21 23:59 | disposition home or self-care (01) ==
LOC: LAB 12:16
PROVIDERS: PCP Family Medicine; Visit Provider Internal Medicine
DX: N18.31 Chronic kidney disease, stage 3a (principal)
CPT/HCPCS: 36415; 80048

== ENCOUNTER 2024-07-22 12:12 | Outpatient (CLI) | payer MEDICARE, BC, SELFPAY ==
--- NOTE | 2024-07-22 12:17 | XR_ITS ---
PROCEDURE INFORMATION: Exam: XR Left Wrist Exam date and time: 07/22/2024 12:26 PM Age: 89 years old Clinical indication: Pain; Wrist; Left; Additional info: Left wrist TECHNIQUE: Imaging protocol: Radiologic exam of the left wrist. Views: 3 or more views. COMPARISON: CR XR WRIST LT 2V 06/24/2024 7:51 PM FINDINGS: Bones/joints: Linear sclerosis distal radial metaphysis compatible with healing fracture. Displaced fracture ulnar styloid. Sclerosis of lunate, healing fracture or avascular necrosis, stable. No dislocation. Positive ulnar variance. Soft tissues: Unremarkable. IMPRESSION: Fractures as above.
== END 2024-07-22 23:59 | disposition home or self-care (01) ==
LOC: RAD 12:14
PROVIDERS: PCP Family Medicine; Visit Provider Orthopaedic Surgery
DX: M25.532 Pain in left wrist (principal); S52.502A Unspecified fracture of the lower end of left radius, initial encounter for closed fracture; S52.602A Unspecified fracture of lower end of left ulna, initial encounter for closed fracture
CPT/HCPCS: 73110

== ENCOUNTER 2024-08-19 12:48 | Outpatient (CLI) | payer MEDICARE, BC, SELFPAY ==
--- OUTSIDE RECORDS SUMMARY | 2024-08-19 12:50 | XMS_ITS | Data Portability ---
Author Organization [place] - [place] - [facility] TEREZA Rosas ADMIN Address [address] [place] [address] [place] [address] Assessment Encounter Date Assessment Date Assessment LastModified by Organization Details LastModified Time 05/10/2023 05/10/2023 The patient presents to the clinic today 2 weeks S/P SCS implant x2 leads (one cervical and one thoracic) for a post-op check. The patient reports experiencing significant improvement in pain and function similar to that of the trial period, specifically decreased neck and BUE pain, as well as low back pain with intermittent radicular symptoms of the BLE. The patient denies post-op complications or signs of infection. The patient is asking questions about post-op care/restrictions . Today the pain level is a 1/10. She reports she has new tingling in her right toes and continued by more frequent numbness/tingling in her left ring and small fingers. She is followed by Dr. Vázquez for left ulnar neuropathy. Based on history, physical exam, x-rays and lumbar MRI, I think her pain is multifactoral to include right trochanteric bursitis, right hip arthritis and lumbar stenosis. I will proceed with doing a left GTB injection in office today. I will schedule a left intra articular hip injection in 2 weeks. Patient will return post inejections. - Left GTB injection done in the clinic today - Schedule left intra articular hip injection in 2 weeks - Return post injection __ I counseled the patient extensively and informed of the risks of the procedure, including the risk of paralysis, nerve damage, respiratory arrest, arrhythmias, stroke, weakness, and infection, which although very low, could result in or disability. The patient acknowledged to me that they understand and accept these risks. RN EDUCATION Extensive coordination of care provided by RN to educate patient on upcoming procedure and to coordinate obtaining extensive incoming medical records. I have discussed in great detail our potential treatment options which would include a rehabilitative approach to care. This program would include medication management, Physical Therapy, consideration for interventional procedures as appropriate, and lifestyle modification (diet, weight loss, exercise, smoking/tobacco cessation, holistic approach including meditation and yoga). The patient understands and agrees prior to proceeding with this plan. _ __ __ __ __ __ __ __ __ __ __ __ __ __ __ __ __ __ __ __ __ __ __ __ __ __ __ __ _ RECORDS REVIEW: As per clinic policy, we will have the patient sign a release to obtain previous imaging and clinical notes. _ __ __ __ __ __ __ __ __ __ __ __ __ __ __ __ __ __ __ __ __ __ __ __ __ __ __ __ _ PSYCH: Pain affecting Neuro-psych behavior was discussed. Discussed about pain psychological counseling as a part of the multimodal approach to pain treatment. _ __ __ __ __ __ __ __ __ __ __ __ __ __ __ __ __ __ __ __ __ __ __ __ __ __ __ __ _ REHABILITATION: Discussed with the patient the importance of diet, daily physical activity and PT. Discussed with the patient the need to be scheduled for physical therapy since physical therapy will prolong the benefits of the procedure and interventions. _ __ __ __ __ __ __ __ __ __ __ __ __ __ __ __ __ __ __ __ __ __ __ __ __ __ __ __ _ KWAKU: I have reviewed patient's KWAKU report prior to prescribing Schedule II, III, and IV medications that require review by law. quentin Not available 05/10/2023 13:45:50 Plan of Treatment Reminders Order Date Submit Date Provider Last Modified By Organization Details Last Modified Time Details Appointments None recorded. Lab None recorded. Referral None recorded. Procedures injection/a spiration, large joint or bursa, with ultrasound guidance (PROC) - right hip 2023 024 [id number] Steve Greenwood MD, [address], [facility] [address], [place], [address], 16:20:30 injection/a spiration joint/bursa (PROC) - , 04818 right hip 2023 024 connie Greenwood MD, [address], [address], [place], [address], 13:16:46 Surgeries None recorded. Imaging None recorded. Medication Orders None recorded. Patient TargetsNo targets recorded. Patient InstructionsNo instructions recorded. Reason for Referral None Reported. Procedures Surgical History Date Name Laterality Status Provider Name and Address Organization Details Recorded Time Injection Only completed XOCHILT BLACKWELL [address], [place], [address], [facility] & [place] 05/10/2023 13:47:40 Imaging Results None recorded. Procedure Notes None recorded. Medical Equipment None Reported. Allergies No known drug allergies Medications Name Sig Start Date Stop Date Status Note LastModified by Organization Details LastModified Time prednisone 10 mg tablet TAKE 4 TABLETS BY MOUTH ONCE DAILY FOR 3 DAYS THEN 3 TABS ONCE DAILY FOR 3 DAYS, THEN 2 TABS ONCE DAILY FOR 3 DAYS, THEN 1 TAB ONCE DAILY FOR 3 DAYS THEN STOP 05/10 completed Not Available Not Available Not Available doxycycline hyclate 100 mg capsule TAKE 1 CAPSULE BY MOUTH TWICE DAILY 05/10 completed Not Available Not Available Not Available alendronate 70 mg tablet TAKE 1 TABLET BY MOUTH ONCE A WEEK active Not Available Not Available No t Available tramadol 50 mg tablet TAKE 1 TABLET BY MOUTH THREE TIMES DAILY NEEDED 05/10 completed Not Available Not Available Not Available gabapentin 300 mg capsule TAKE 1 CAPSULE BY MOUTH THREE TIMES DAILY active Not Available Not Available No t Available pioglitazone 30 mg tablet Take 1 tablet every day by oral route. active Not Available Not Available No t Available irbesartan 300 mg tablet Take 1 tablet every day by oral route. active Not Available Not Available No t Available ezetimibe 10 mg tablet Take 1 tablet every day by oral route. active Not Available Not Available No t Available metformin active Not Available Not Jocelyne ilable Not Available Vitals Date Recorded Body height Body mass index (BMI) Body weight Body temperature Oxygen saturation Oxygen saturation in Arterial blood by Pulse oximetry Heart rate Systolic blood pressure Diastolic blood pressure Provider Name and Address Organization Details Last Updated DateTime 4 152.4 cm 29.5 kg/m2 67156.4 5 g 97.3 [degF] 98 % 98 % 75 /min 138 mm[Hg] 68 mm[Hg] Adrienne Jacob [place] - [facility] & [place] 4 11:59:04 Social History None recorded. Functional Status None recorded. Mental Status None recorded. Family History Nothing Reported. Medical History Condition Response Diabetes Y Hypertension Y Osteoporosis Y Gynecological HistoryNo gynecological history recorded. Obstetrics History GPAL:G 0 P 0 0 0 0 Past Encounters Encounter ID Performer Location Encounter Start Date Encounter Closed Date Diagnosis/Indication Diagnosis SNOMED-CT Code Diagnosis ICD10 Code Diagnosis Note [id number] Steve Greenwood MD [facility] [address] [facility],[address] [place] [address] 05/10/2023 10:19:50 05/10/2023 11:33:52 Arthritis of right hip 2771101089 401486 M13.851 Trochanter ic bursitis of right hip 4404428101 21092 M70.61 Spinal donovan nosis of lumbar region 03561564 M99.53 Lumbar spondylosis 45416 0009 M47.816 Health Concerns Section Related Observation LastModified by Organization Detai ls LastModified Time None Recorded Concern Status LastModified by Organization Details LastModified Time None Recorded Advance Directives Directive None Recorded Payers Encounter Date Sequence Insurance Name Policy Number Policy Russo Covered Member ID Russo Member ID Guarantor Name 05/10/2023 1 [place] Tasneem Yousif McIlvain [id number] Tasneem McIlvain 05/10/2023 2 [place] [employer] [address] [id number] Tasneem McIlvain Notes Date Note Type Note Provider Name and Address Organization Details Recorded Time 05/10/19 24 text/htm l this is a pleasant 88-year-old female, referred by Dr. Artis neurosurgery at [facility], here to discuss her left hip and leg pain. She reports bothering her for greater than 6 months following a fall. She complains of groin pain with radiating pain to the knee sometimes past the knee. It bothers her worse with weight-bearing and walking still bothers her at rest as well. She has difficulty sleeping due to the pain. She has had x-rays of the left hip showing significant degenerative changes as well as MRI of the lumbar spine showing diffuse severe facet arthropathy and severe central canal stenosis at L3-L4 and L4-L5. She is currently taking gabapentin as prescribed by Dr. Artis. She has had lumbar spine proximally 50 years ago and participate in physical therapy without any improved pain.Pain today is /. Onset: 6+ monthsContext: progressively worseningCharacter: sharp, aching, throbbingLocation: left hip/legDuration: constant worse with WBIntensity: 10/10Worse: walkingBetter: rest???Associated symptoms: Denies saddle anaesthesia, denies acute bowel/bladder changes, denies acute power loss.???ADLs: The patient's pain interferes with daily chores, exercise, sleep, relationships, and walking.???Current Pain Medications: gabepentinPrior Pain Medications:NSAIDS/OTC: noneNon-interventional Tx:Physical Therapy: yes no improvementInterventional Tx: noneSurgery: lumbar 50 years agoImaging/Studies: left hip/ lumbar MRI Steve Greenwood MD [address] [facility], [place], [address], [facility] [place] & [place] 05/11/2023 08:37:52 OBGyn Episode No OBEpisode recorded.
--- NOTE | 2024-08-19 12:51 | XR_ITS ---
FINAL REPORT CLINICAL HISTORY: .wrist pain COMPARISON: 07/22/2024 FINDINGS: AP, oblique, and lateral views of the left wrist were obtained. There has been interval healing of previously seen distal radial fracture. The ulnar styloid process fracture is unchanged. 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 No new abnormality is seen. There is persistent mild soft tissue edema. IMPRESSION: Interval healing of previously seen distal radial fracture. Otherwise, no significant change from the prior exam. Reviewed, Interpreted and Dictated by Stacey Rodgers MD Transcribed by Irma Ceballos Authenticated and [facility]
== END 2024-08-19 23:59 | disposition home or self-care (01) ==
LOC: RAD 12:49
PROVIDERS: PCP Family Medicine; Visit Provider Orthopaedic Surgery
DX: M25.532 Pain in left wrist (principal); S52.502A Unspecified fracture of the lower end of left radius, initial encounter for closed fracture; S52.602A Unspecified fracture of lower end of left ulna, initial encounter for closed fracture
CPT/HCPCS: 73110

== ENCOUNTER 2024-09-06 09:09 | Outpatient (CLI) | payer MEDICARE, BC, SELFPAY ==
--- OUTSIDE RECORDS SUMMARY | 2024-09-06 09:11 | XMS_ITS | Data Portability ---
Author Organization [place] - MARGARETTE - [facility] TEREZA Rosas ADMIN Address [address] [place] [address] [place] [address] Assessment Encounter Date Assessment Date Assessment LastModified [...] guidance (PROC) - right hip 2023 024 Steve Greenwood MD, [address], [facility] [address], [place], [address], 16:20:30 injection/a spiration joint/bursa (PROC) - , 73625 right hip 2023 024 connie Greenwood MD, [address], [address], [place], [address], 13:16:46 Surgeries None recorded. Imaging None recorded. Medication Orders None recorded. Patient TargetsNo targets recorded. Patient InstructionsNo instructions recorded. Reason for Referral None Reported. Procedures Surgical History Date Name Laterality Status Provider Name and Address Organization Details Recorded Time Injection Only completed [facility]OCHILT BLACKWELL [address], [place], [address], [facility] & [place] 05/10/2023 13:47:40 Imaging Results None recorded. Procedure [...] Updated DateTime 4 152.4 cm 29.5 kg/m2 99576.4 5 g 97.3 [degF] 98 % 98 % 75 /min 138 mm[Hg] 68 mm[Hg] Adrienne Jacob [place] - LPNT [facility] & [place] 4 11:59:04 Social History None recorded. Functional Status None recorded. Mental Status None recorded. Family History Nothing Reported. Medical History Condition Response Diabetes Y Hypertension Y Osteoporosis Y Gynecological HistoryNo gynecological history recorded. Obstetrics History GPAL:G 0 P 0 0 0 0 Past Encounters Encounter ID Performer Location Encounter Start Date Encounter Closed Date Diagnosis/Indication Diagnosis SNOMED-CT Code Diagnosis ICD10 Code Diagnosis Note [id number] Steve Greenwood MD [facility] [address] [facility] [place] [address] 05/10/2023 10:19:50 05/10/2023 11:33:52 Arthritis of right hip [id number] 418499 M13.851 Trochanter ic bursitis of right hip 5031355284 94004 M70.61 Spinal donovan nosis of lumbar region 59088072 M99.53 Lumbar spondylosis 38429 0009 M47.816 Health Concerns Section Related Observation LastModified by Organization Detai ls LastModified Time None Recorded Concern Status LastModified by Organization Details LastModified Time None Recorded Advance Directives Directive None Recorded Payers Encounter Date Sequence Insurance Name Policy Number Policy Russo Covered Member ID Russo Member ID Guarantor Name 05/10/2023 1 [place] Tasneem Yousif McIlvain [id number] Tasneem McIlvain 05/10/2023 2 [place] [employer] [address] [id number] Tasneem McIlvain Notes Date Note Type Note Provider Name and Address Organization Details Recorded Time 05/10/19 24 text/htm l this is a pleasant 88-year-old female, referred by Dr. Artis neurosurgery at [facility], here to discuss her left hip and [...] left hip/ lumbar MRI Steve Greenwood MD [address] [facility], [place], [address], [facility] - [place] & [place] 05/11/2023 08:37:52 OBGyn Episode No OBEpisode recorded.
[2024-09-06 10:53] LABS: Anion Gap 10.6 mEq/L (5-15); Blood Urea Nitrogen 25 mg/dl (7-17); Calcium 10.2 mg/dl (8.4-10.2); Carbon Dioxide 27 mmol/L (22.0-30.0); Chloride 100 mmol/L (98-107); Estimated Glomerular Filt Rate 47 ml/min (>60); GFR (African American) 57 ML/MIN (>60); Glucose 115 mg/dl (74-100); Potassium 4.6 mmoL/L (3.5-5.1); Sodium 133 mmol/L (136-145)
== END 2024-09-06 23:59 | disposition home or self-care (01) ==
LOC: LAB 09:10
PROVIDERS: PCP Family Medicine; Visit Provider Internal Medicine
DX: E11.22 Type 2 diabetes mellitus with diabetic chronic kidney disease (principal); Z79.84 Long term (current) use of oral hypoglycemic drugs
CPT/HCPCS: 36415; 80048; 83036

== ENCOUNTER 2024-09-11 16:00 | Emergency (ER) | payer MEDICARE, BC, SELFPAY ==
[2024-09-11] VITALS (8 sets, daily range): BP systolic 152–179; BP diastolic 74–94; PULSE 65–103; RESP 16–20; TEMP 36.7–36.8; O2SAT 95–97; BMI 23.8
--- NOTE | 2024-09-11 15:57 | ECG_ITS ---
APPROVED REPORT Exam: Resting ECG HR:96 bpm ECG Measurements Heart Rate 96 AXES MS 185 P 42 QRSd 92 QRS 37 QT 321 T 126 QTc 374 Conclusion SINUS RHYTHM WITH OCCASIONAL VENTRICULAR PREMATURE COMPLEXES LEFT VENTRICULAR HYPERTROPHY AND ST-T CHANGE [VOLTAGE CRITERIA PLUS ST/T ABNORMALITY] ABNORMAL ECG UNCONFIRMED REPORT Electronically signed by : NIKHIL RUBY, 09/14/2024 23:44:32
--- NOTE | 2024-09-11 15:57 | CT_ITS ---
PROCEDURE INFORMATION: Exam: CT Cervical Spine Without Contrast Exam date and time: 09/11/2024 4:29 PM Age: 89 years old Clinical indication: Injury or trauma; Fall; Additional info: Fall, laceration to forehead TECHNIQUE: Imaging protocol: Computed tomography of the cervical spine without contrast. Radiation optimization: All CT scans at this facility use at least one of these dose optimization techniques: automated exposure control; mA and/or kV adjustment per patient size (includes targeted exams where dose is matched to clinical indication); or iterative reconstruction. COMPARISON: CT CERVICAL SPINE WO CON 09/11/2024 4:29 PM FINDINGS: Bones: Vertebral body height and AP alignment is preserved. There are degenerative changes about the dens. Mild prevertebral osteophytosis. Bilateral facet joint degenerative change. No acute cervical spine fracture. No definite high-grade central canal stenosis within limitations of technique. Lungs: Lung apices are normal. Pleural spaces: No visible pneumothorax. Vasculature: Vascular calcification. Soft tissues: Unremarkable. IMPRESSION: No acute osseous abnormality.
--- NOTE | 2024-09-11 15:57 | XR_ITS ---
PROCEDURE INFORMATION: Exam: XR Right Hand Exam date and time: 09/11/2024 4:47 PM Age: 89 years old Clinical indication: Injury or trauma; Fall; Blunt trauma (contusions or hematomas); Hand; Right; Additional info: Avulsion skin tear to first digit TECHNIQUE: Imaging protocol: Radiologic exam of the right hand. Views: 1 or 2 views. COMPARISON: No relevant prior studies available. FINDINGS: Bones/joints: Osteoarthritic changes in the DIPs. Soft tissues: Normal. IMPRESSION: No acute findings.
--- NOTE | 2024-09-11 15:57 | CT_ITS ---
PROCEDURE INFORMATION: Exam: CT Head Without Contrast Exam date and time: 09/11/2024 4:29 PM Age: 89 years old Clinical indication: Injury or trauma; Fall; Additional info: Fall, laceration to forehead TECHNIQUE: Imaging protocol: Computed tomography of the head without contrast. Radiation optimization: All CT scans at this facility use at least one of these dose optimization techniques: automated exposure control; mA and/or kV adjustment per patient size (includes targeted exams where dose is matched to clinical indication); or iterative reconstruction. COMPARISON: CT CERVICAL SPINE WO CON 09/11/2024 4:29 PM FINDINGS: Brain: Intracranial vascular calcification. Decreased attenuation of the supratentorial white matter is likely secondary to chronic microvascular ischemia. No acute intracranial hemorrhage. Cerebral ventricles: Ventricular and subarachnoid spaces are age appropriate. Paranasal sinuses: Mild paranasal sinus disease. Mastoid air cells: Visualized mastoid air cells are well aerated. Bones: Depressed fracture involving the left nasal bones/frontal process of the maxilla. No acute calvarial fracture. Hyperostosis frontalis interna. Soft tissues: Unremarkable. IMPRESSION: 1. No acute intracranial abnormality. 2. Depressed fracture involving the left nasal bones/frontal process of the maxilla.
--- NOTE | 2024-09-11 16:05 | ED_ITS ---
Discharge Plan Disposition Chief Complaint: Fall Prescriptions Prescriptions: No Action pioglitazone-metformin 15-1,000 mg tablet, ER multiphase 24 hr 1 tab PO DAILY ranitidine HCl 300 mg capsule 300 mg PO DAILY glucosamine-chondroitin [Osteo Bi-Flex] 250-200 mg tablet 2 tab PO QPC meclizine 25 mg tablet 25 mg PO BID PRN (Reason: dizziness) Qty: 60 0RF hydrocodone-acetaminophen 5-325 mg Tablet 1 tab PO Q6HP PRN (Reason: Mild To Moderate Pain (1-6)) 3 Days Qty: 12 0RF meloxicam 15 mg tablet 15 mg PO DAILY 30 Days Qty: 30 0RF ezetimibe 10 mg tablet 10 mg PO DAILY 30 Days Qty: 30 0RF amlodipine-atorvastatin 5-40 mg tablet 1 tab PO DAILY 30 Days Qty: 30 0RF Referrals Follow up/Referrals: Amado Pope MD [Primary Care Provider] - See instructions Print Language Print Language: Anguillan Discharge ED Provider: Shy Mccullough General Adult HPI General Chief complaint: Fall Stated complaint: fall Time Seen by Provider: 09/11/24 16:00 History of Present Illness HPI narrative: Tasneem Perales is an 89 y/o female presenting after a fall. Pt was attempting to mushroom picker her grand child when she fell foreword hitting her head on a metal picnic bench. Pt does not believe she lost consciousness. Pt denies blood thinner use. She reports taking tylenol some days. She was able to walk after the fall. She complains of her head pounding. She has multiple wounds to include forehead, right and left hands. Related Data Home Medications ?Medication ?Instructions ?Recorded ?Confirmed glucosamine-chondroitin 250 mg-200 2 tab PO QPC 10/21/18 08/19/24 mg tablet (Osteo Bi-Flex) pioglitazone 15 mg-metformin ER 1 tab PO DAILY 10/21/18 08/19/24 1,000 mg tablet,extend release 24hr mp ranitidine HCl 300 mg capsule 300 mg PO DAILY 10/21/18 08/19/24 Previous Rx's ?Medication ?Instructions ?Recorded meclizine 25 mg tablet 25 mg PO BID PRN dizziness #60 tabs 05/10/20 amlodipine 5 mg-atorvastatin 40 mg 1 tab PO DAILY 30 days #30 tabs 06/17/23 tablet ezetimibe 10 mg tablet 10 mg PO DAILY 30 days #30 tabs 06/17/23 hydrocodone 5 mg-acetaminophen 325 1 tab PO Q6HP PRN Mild To Moderate 06/17/23 mg tablet Pain (1-6) 3 days #12 tabs meloxicam 15 mg tablet 15 mg PO DAILY 30 days #30 tabs 06/17/23 Allergies Allergy/AdvReac Type Severity Reaction Status Date / Time No Known Allergies Allergy Verified 08/19/24 13:36 [facility] Disclaimer: The information contained in this section may have been updated after the patient was seen, as this information can be updated by other users. Medical History DM type 2 (diabetes mellitus, type 2) Hypertension High cholesterol Family History Other No significant family history Social History Smoking Status: Never smoker alcohol intake: never substance use type: denies use current occupational status: previously employed and retired Travel in the last 8 weeks?: None household members: other housing: house Have you lived/traveled outside US in past 30 days?: No Contact w/someone who lives/traveled outside US past 30 days?: No Exposure to someone with infectious disease in past 14 days?: No Do you have a fever (greater than 100.4 F or 38 C)?: No Have you tested positive for COVID-19?: No Exposed to someone with COVID-19 in past 14 days?: No Do you have a sore throat?: No Do you have a cough?: No Do you have any weakness?: No Do you have any diarrhea?: No Are you experiencing any unusual bleeding?: No Do you have any muscle aches/pain?: No Do you have any abdominal pain?: No Are you experiencing loss of taste or smell?: No Other Medical History Have you received the Flu Vaccine for this season: No Have you received the Pneumonia Vaccine: No ROS Obtained: Yes All systems reviewed & no additional complaints except as documented Physical Exam General General appearance: alert and in no apparent distress Head Head exam: normocephalic and other (laceration to forehead with pressure dressing in place for hemostasis) Eye Eye exam: Present PERRL and EOMI; Absent scleral icterus Neck Neck exam: Present full ROM (c-collar in place) Chest Chest inspection: Present normal inspection Respiratory Respiratory exam: Present normal lung sounds bilaterally Cardiovascular Cardiovascular exam: Present regular rate and normal rhythm Abdominal Exam Abdominal exam: Present soft; Absent distention or tenderness Extremities Exam Extremities exam: Present full ROM, tenderness and other (right first digit with avulsion laceration to proximal aspect. Hemostatic.); Absent edema Back Exam Back exam: Present full ROM Neurological Exam Neurological exam: Present alert and oriented X3 Psychiatric Psychiatric exam: Present normal mood Skin Skin exam: Present warm and dry Medical Decision Making Medical Records Medical records reviewed: Yes I reviewed the patient's medical records. Screening: Per USPSTF and CDC recommendations, given the prevalence of disease in our region, it is our hospital?s policy to screen for HIV and viral Hepatitis for all patients aged 18 and over and those with ongoing risk factors. Adama Inquiry Pt receiving controlled substance: No Vital Signs: 09/11/24 16:01 09/11/24 16:27 09/11/24 17:00 Temperature 98.2 F Temperature Source Oral Pulse Rate 95 H 81 Pulse Rate [Left Radial] 103 H Respiratory Rate 16 20 Blood Pressure 179/92 H 165/80 H Blood Pressure [Right Arm] 155/94 H Blood Pressure Mean 110 Blood Pressure Mean [Right Arm] 114 02 Sat by Pulse Oximetry 96 97 96 Oxygen Delivery Method Room Air 09/11/24 17:30 09/11/24 18:00 09/11/24 18:30 Temperature Temperature Source Pulse Rate 65 66 69 Pulse Rate [Left Radial] Respiratory Rate Blood Pressure 176/86 H 168/79 H 160/80 H Blood Pressure [Right Arm] Blood Pressure Mean 103 Blood Pressure Mean [Right Arm] 02 Sat by Pulse Oximetry 97 95 97 Oxygen Delivery Method Lab Data Lab results reviewed: Yes I reviewed the patient's lab results. Lab Results 09/11/24 16:00: WBC 7.1, RBC 4.71, Hgb 13.6, Hct 40.2, MCV 85.4, MCH 28.9, MCHC 33.8, RDW 14.2, Plt Count 364, MPV 10.6 H, Neut % (Auto) 57.0, Lymph % (Auto) 31.2, [place] % (Auto) 9.7 H, Eos % (Auto) 1.0, Baso % (Auto) 0.8, Neut # (Auto) 4.1, Lymph # (Auto) 2.2, [place] # (Auto) 0.7, Eos # (Auto) 0.1, Baso # (Auto) 0.1, Sodium 126 L, Potassium 5.1, Chloride 101, Carbon Dioxide 24, Anion Gap 6.1, BUN 21 H, Creatinine 0.90, Estimated GFR 59, Est GFR ( Amer) 72, Glucose 108 H, Calcium 10.1 09/11/24 16:00 09/11/24 16:00 Orders (Tests/Meds): ED MEDICATIONS Discontinued Medications Generic Name Dose Route Start Last Admin Trade Name Freq PRN Reason Stop Dose Admin Lidocaine HCl 10 ml 09/11/24 18:42 09/11/24 18:44 Lidocaine 1% 10ml Mdv SUBCUT 09/11/24 18:43 10 ml ONCE ONE Administration Morphine Sulfate 2 mg 09/11/24 15:57 09/11/24 16:29 Morphine 2mg/Ml Syringe IV 09/11/24 15:58 2 mg ONCE ONE Administration Ondansetron HCl 4 mg 09/11/24 15:57 09/11/24 16:28 Ondansetron 4mg/2ml Vial IV 09/11/24 15:58 4 mg ONCE ONE Administration Tetanus/Reduced Diphtheria/Acell Pertussis 0.5 ml 09/11/24 15:57 09/11/24 17:51 Tet/Diphth/Pert-Adult 0.5ml Syringe IM 09/11/24 15:58 0.5 ml .ONCE ONE Administration ORDERS Category Date Time Status CT cervical spine wo con Stat Cat Scan 09/11/24 15:[address] head/brain wo con Stat Cat Scan 09/11/24 15:57 Completed Hand XR right 2 views [XR hand RT 2V] Stat Exams 09/11/24 15:57 Completed BMP [Basic Metabolic Panel] Stat Lab 09/11/24 16:00 Completed CBC w/Auto Diff [Complete Blood Count Auto Diff] Stat Lab 09/11/24 16:00 Completed ECG Data Tracing #1: I reviewed this ECG and interpreted as documented below: Sinus rhythm with rate of 96. No QTC prolongation. No significant ST elevation/depression or evidence of acute ischemia. Medical Decision Narrative: In summary, pt is an 89 y/o female presenting after a fall. Differential diagnosis includes but not limited to, skull fracture, ICH, c-spine fracture/malalignment, hand fracture, vascular injury, among others. Pt does not take blood thinners and had no LOC. Pt to be evaluated with XR and CT. Pain control with 2mg IV morphine and zofran for nausea. I personally reviewed patient's CT scan which demonstrated no intracranial hemorrhage or skull fracture. Nasal bone fracture was noted by radiology report. On reevaluation, patient able to breathe through her nose without significant difficulty. Patient CT C-spine also reviewed by me negative for fracture or malalignment. Patient's c-collar cleared at bedside. XR right hand reviewed by me and negative for fracture or malalignment. Patient's labs noted no actionable findings on her CBC with differential. Mildly hyponatremic but similar to her baseline. No other actionable findings. Patient unsure of her tetanus status, so she was given a Tdap. After imaging was completed, patient's wounds were thoroughly evaluated, irrigated and repaired at bedside. Patient's finger laceration was a skin flap that was able to be re-approximated with 2 sutures. Forehead laceration was approximated easily utilizing 3 sutures. Procedures Laceration Laceration 1: Site: face Size (cm): 1 Description: linear Depth: simple, single layer Local Anesthetic: lidocaine 1% Amount of anesthesia used (mL): 2 Pre-repair: wound explored and irrigated extensively Skin layer closed with: other (chromic) Size (cm): 4-0 Number of sutures: 3 Technique: simple, interrupted Laceration 2: Site: finger and hand Side (If applicable): right Size (cm): 5 Description: flap and irregular Depth: simple, single layer Local Anesthetic: lidocaine 1% Amount of anesthesia used (mL): 3 Pre-repair: wound explored and irrigated extensively Skin layer closed with: nylon Size (cm): 5-0 Number of sutures: 2 Technique: simple, interrupted (two sutures to tack down skin flap.) Critical Care Critical Care Time Critical Care Time: No
--- OUTSIDE RECORDS SUMMARY | 2024-09-11 16:09 | XMS_ITS | Data Portability ---
Author Organization [place] - MARGARETTE - [facility] TEREZA Rosas ADMIN Address [address] [place] [address] [place] [address] Assessment Encounter Date Assessment Date Assessment LastModified [...] Steve Greenwood MD, [address], [facility] [address], [place], [address], 16:20:30 injection/a spiration joint/bursa (PROC) - , [address] right hip 2023 024 connie Greenwood MD, [address], [address], [place], [address], 13:16:46 Surgeries None recorded. Imaging None recorded. Medication Orders None recorded. Patient TargetsNo targets recorded. Patient InstructionsNo instructions recorded. Reason for Referral None Reported. Procedures Surgical History Date Name Laterality Status Provider Name and Address Organization Details Recorded Time Injection Only completed XOCHILT BLACKWELL [address], [place], [address], [facility] & [place] 05/10/2023 13:47:40 Imaging Results None recorded. Procedure [...] Updated DateTime 4 152.4 cm 29.5 kg/m2 46177.4 5 g 97.3 [degF] 98 % 98 % 75 /min 138 mm[Hg] 68 mm[Hg] Adrienne Jacob [place] - LPNT [facility] & [place] 4 11:59:04 Social History None recorded. Functional Status None recorded. Mental Status None recorded. Family History Nothing Reported. Medical History Condition Response Diabetes Y Hypertension Y Osteoporosis Y Gynecological HistoryNo gynecological history recorded. Obstetrics History GPAL:G 0 P 0 0 0 0 Past Encounters Encounter ID Performer Location Encounter Start Date Encounter Closed Date Diagnosis/Indication Diagnosis SNOMED-CT Code Diagnosis ICD10 Code Diagnosis Note [id number] Steve Greenwood MD [facility] [address] [facility] [place] [address] 05/10/2023 10:19:50 05/10/2023 11:33:52 Arthritis of right hip 6611876478 294182 M13.851 Trochanter ic bursitis of right hip 2768361816 77660 M70.61 Spinal thee nosis of lumbar region 07273138 M99.53 Lumbar spondylosis 89163 0009 M47.816 Health Concerns Section Related Observation LastModified by Organization Detai ls LastModified Time None Recorded Concern Status LastModified by Organization Details LastModified Time None Recorded Advance Directives Directive None Recorded Payers Insurance Date Sequence Insurance Name Policy Number Policy Russo Covered Member ID Russo Member ID Guarantor Name 04/24/2023 2 [place] [address] [id number] Tasneem McIlvain 05/23/2023 2 [place] [employer] [address] [id number] Tasneem McIlvain 05/15/2023 1 [place] Tasneem M McIlvain [id number] Tasneem McIlvain Notes Date Note Type Note Provider Name and Address Organization Details Recorded Time 05/10/19 24 text/htm l this is a pleasant 88-year-old female, referred by Dr. Artis neurosurgery at [facility], here to discuss her left hip [...] therapy without any improved pain.Pain today is 10/10. Onset: 6+ monthsContext: progressively worseningCharacter: sharp, aching, [...] left hip/ lumbar MRI Steve Greenwood MD [address] [facility], [place], [address], [facility] - [place] & [place] 05/11/2023 08:37:52 OBGyn Episode No OBEpisode recorded.
[2024-09-11 16:21] LABS: Anion Gap 6.1 mEq/L (5-15); Blood Urea Nitrogen 21 mg/dl (7-17); Calcium 10.1 mg/dl (8.4-10.2); Carbon Dioxide 24 mmol/L (22.0-30.0); Chloride 101 mmol/L (98-107); Estimated Glomerular Filt Rate 59 ml/min (>60); GFR (African American) 72 ML/MIN (>60); Glucose 108 mg/dl (74-100); Potassium 5.1 mmoL/L (3.5-5.1); Sodium 126 mmol/L (136-145)
[2024-09-11 16:27] LABS: Basophils # 0.1 K/mm3 (0-0.2); Basophils % 0.8 % (0.1-2.0); Eosinophils # 0.1 Kmm3 (0.0-0.4); Hematocrit 40.2 % (37.0-47.0); Hemoglobin 13.6 g/dL (12.2-16.2); Immature Granulocytes # 0.02 10^3uL; Immature Granulocytes % 0.3 %; Lymphocytes # 2.2 K/mm3 (0.7-4.5); Lymphocytes % 31.2 % (10-50); Mean Corpuscular HGB Conc 33.8 g/dL (31.8-35.4); Mean Corpuscular Hemoglobin 28.9 pg (27.0-31.2); Mean Corpuscular Volume 85.4 fl (81-99); Mean Platelet Volume 10.6 fl (7.4-10.4); Monocytes # 0.7 K/mm3 (0.1-1.0); Monocytes % 9.7 % (1.7-9.3); Neutrophils # 4.1 K/mm3 (1.8-7.8); Nucleated Red Blood Cells # 0 10^3/uL; Nucleated Red Blood Cells % 0 %; Platelet Count 364 K/mm3 (142-424); Red Blood Count 4.71 M/mm3 (4.20-5.40); Red Cell Distribution Width 14.2 % (11.5-17.5); Red Cell Distribution Width-SD 44.3 fL; White Blood Count 7.1 K/mm3 (4.8-10.8)
[2024-09-11] MEDS: ONDANSETRON 4MG/2ML VIAL 4 MG IV (16:28)
[2024-09-11] MEDS: MORPHINE 2MG/ML SYRINGE 2 MG IV (16:29)
--- NOTE | 2024-09-11 17:32 | PC.NURSE ---
rounded on patient, no needs voiced at this time.
[2024-09-11] MEDS: TET/DIPHTH/PERT-ADULT 0.5ML SYRINGE 0.5 ML IM (17:51)
--- NOTE | 2024-09-11 18:01 | PC.NURSE ---
pt rounded on no needs at this time
[2024-09-11] MEDS: LIDOCAINE 1% 10ML MDV 10 ML SUBCUT (18:44)
--- NOTE | 2024-09-11 19:12 | PC.NURSE ---
Called transfer center for trauma consult
--- NOTE | 2024-09-11 19:16 | PC.NURSE ---
Report received from Storm TERRAZAS Pt resting quietly in bed awaiting consult from [facility] Skin pink warm and dry Resp full and easy Speech clear and appropriate. IV site without redness or edema Family at bedside
== END 2024-09-11 20:22 | disposition home or self-care (01) ==
PROVIDERS: Emergency Provider Student in an Organized Health Care Education/Training Program; PCP Family Medicine
DX: S02.2XXA Fracture of nasal bones, initial encounter for closed fracture (principal); S01.81XA Laceration without foreign body of other part of head, initial encounter; S61.011A Laceration without foreign body of right thumb without damage to nail, initial encounter; R51.9 Headache, unspecified; E87.1 Hypo-osmolality and hyponatremia; W18.30XA Fall on same level, unspecified, initial encounter
CPT/HCPCS: 12002; 12011; 70450; 72125; 73120; 80048; 85025; 90471; 90715; 93005; 96374; 96375; 99285; J2270; J2405

== ENCOUNTER 2024-12-03 14:01 | Outpatient (CLI) | payer MEDICARE, BC, SELFPAY ==
--- OUTSIDE RECORDS SUMMARY | 2023-08-09 11:00 | XMS_ITS ---
[facility] Address [address] [facility] [address] [place] [id number] Care Team Providers Care Group Exercise Instructor Name Role Phone Serena Pope Primary Care Provider [phone] Elen Mckenna Unavailable [phone] Allergies No Known Allergies REASON FOR VISIT eyes itching Medications Medication SIG (Take, Route, Frequency, Duration) Notes Start Date End Date Status Gabapentin 100 MG 2 cap(s) orally 3 times a day Not-Taking Cyclobenzaprine HCl 5 MG 1 tab(s) orally qhs Not-Taki ng Shingrix 50 MCG/0.5ML 0.5 mL intramuscularly once 09/20/2018 Not-Taking Meloxicam 15 MG 1 tab(s) orally once a day Not-Taking Moxifloxacin HCl 0.5 % 1 drop into affected eye Ophthalmic Three times a day 08/09/2023 Active amLODIPine Besy-Benazepril HCl 5-40 MG 1 cap(s) orally once a day Not-Taking Doxycycline Hyclate 100 MG 1 cap(s) orally 2 times a day 08/03/2022 Not-Taking Linzess 72 MCG 1 cap(s) orally once a day Not-Taking RANITIDINE HYDROCHLORIDE 300 MG 1 TAB(S) ORALLY ONCE A DAY (AT BEDTIME) *Please review for potential replacement for e-prescription and drug interaction check* 09/20/2018 Not-Taking Vitamin B-12 1000 MCG 1 tab(s) orally once a day; Duration: 30 day(s) Not-Taking Atorvastatin Calcium 20 MG 1 tab(s) orally once a day; Duration: 30 day(s) Not-Taking metFORMIN HCl ER 750 MG 1 tab(s) orally 2 times a day Active Zetia 10 MG 1 tab(s) orally once a day Active traMADol HCl 50 MG 1 tab(s) Orally three times a day as needed 03/13/2023 Not-Taking Pioglitazone HCl 15 MG 1 tab(s) orally once a day Unknown Alendronate Sodium 70 MG 1 tablet 30 minutes before the first food, beverage or medicine of the day with plain water Orally; Duration: 30 day(s) Active Omeprazole 20 MG 1 capsule 30 minutes before morning meal Orally Once a day; Duration: 30 day(s) Active Calcium Carbonate 600 MG 2 TAB(S) CHEWED ONCE A DAY Active Irbesartan 300 MG 1 tab(s) orally once a day; Duration: 30 day(s) Active Vitamin D3 25 MCG (1000 UT) 1 tab(s) orally once a day Not-Taking Eye Vitamins - as directed Orally Active Mupirocin 2 % 1 application Externally Twice a day 08/09/2023 Active Azelastine HCl 0.05 % 1 drop into affected eye Ophthalmic Twice a day, prn 08/09/2023 Active Vital Signs Blood pressure systolic 112 mm Hg 08/09/19 24 Blood pressure diastolic 54 mm Hg 024 Heart Rate 83 /min 08/09/2023 Height 65 in 08/09/2023 Weight 147.4 lbs 08/09/2023 BMI 24.53 kg/m2 08/09/2023 Encounters Encounter Location Date Provider Diagnosis [facility] [facility] [address] [phone] 08/09/2023 Elen Mckenna Powell eye, bilateral H10.023 ; Allergic conjunctivitis of both eyes H10.13 and Skin sore L98.9 Assessments Encounter Date Diagnosis (ICD Code) Assessment Notes Treatment Notes Treatment Clinical Notes Section Notes 08/09/2023 Powell eye, bilateral (ICD-10 - H10.023) 08/09/2023 Allergic conjunctivitis of both eyes (ICD-10 - H10.13) 08/09/2023 Skin sore (ICD-10 - L98.9) Plan Of Treatment Medication Medication Name Sig Start Date Stop Date Notes Moxifloxacin HCl 0.5 % 1 drop into affec shantal eye Ophthalmic Three times a day 08/09/2023 Mupirocin 2 % 1 application Powder Press Operator ally Twice a day 08/09/2023 Azelastine HCl 0.05 % 1 drop into affect ed eye Ophthalmic Twice a day, prn 08/09/2023 Next Appt Details Follow Up: prn, Reason: Progress Notes * SUSHMA PERALES:1934 (89 yo F)Acc No.[id number]:08/09/2023 Progress Notes Patient: SUSHMA KNIGHT Provider: XOCHILT Shipman :1935 A ge:88 Y S ex:Female Date:08/09/2023 Phone: Address:[place], [id number] Pcp:Serena Pope Subjective: * Chief Complaints: * 1 . Eyes itching. * HPI: O pthalmology: 88 year old female presents with c/o redness. c/o burning sensation. c/o itching p t is here for persistent itching in both eyes with watering, burning and redness, this has been ongoing for a few weeks and she has been scratching them, she now has some crusting in the morning and they are getting red. * ROS: D ERMATOLOGY: no R mike. n o H berny. G ASTROENTEROLOGY: no N ausea. n o V omiting. U ROLOGY: no D ifficulty urinating. n o B lood in urine. * Medical History: H TN, DM 2, HLP, GERD. * Surgical History: d isc removed from back years ago , right knee surgery , tonsilectomy . * Hospitalization/Major Diagno stic Procedure: D enies Past Hospitalization. * Family History: F ather: 82 yrs, wheel chair bound at age 54, reason unknown. M other: 92 yrs, old age, HTN. 1 sister(s) . 3 son(s) , 1 daughter(s) . . one sister at age 52 with lung cancer. * Social History: C URRENT TOBACCO USE: No . C affeine: yes, frequency: coffee. Home smoke detector use: yes. Alcohol: No. * Medications: T aking Eye Vitamins - Capsule as directed Orally , Taking Omeprazole 20 MG Capsule Delayed Release 1 capsule 30 minutes before morning meal Orally Once a day , Taking Alendronate Sodium 70 MG Tablet 1 tablet 30 minutes before the first food, beverage or medicine of the day with plain water Orally , Taking Irbesartan 300 MG Tablet 1 tab(s) orally once a day , Taking Calcium Carbonate 600 MG TABLET, CHEWABLE 2 TAB(S) CHEWED ONCE A DAY , Taking Zetia 10 MG Tablet 1 tab(s) orally once a day , Taking metFORMIN HCl ER 750 MG Tablet Extended Release 24 Hour 1 tab(s) orally 2 times a day , Not-Taking Vitamin D3 25 MCG (1000 UT) Tablet 1 tab(s) orally once a day , Not-Taking traMADol HCl 50 MG Tablet 1 tab(s) Orally three times a day as needed , Not-Taking Atorvastatin Calcium 20 MG Tablet 1 tab(s) orally once a day , Not- Taking amLODIPine Besy-Benazepril HCl 5-40 MG Capsule 1 cap(s) orally once a day , Not-Taking Linzess 72 MCG Capsule 1 cap(s) orally once a day , Not-Taking Doxycycline Hyclate 100 MG Capsule 1 cap(s) orally 2 times a day , Not-Taking Vitamin B-12 1000 MCG Tablet 1 tab(s) orally once a day , Not-Taking RANITIDINE HYDROCHLORIDE 300 MG TABLET 1 TAB(S) ORALLY ONCE A DAY (AT BEDTIME) , Notes to Pharmacist: *Please review for potential replacement for e-prescription and drug interaction check*, Not- Taking Meloxicam 15 MG Tablet 1 tab(s) orally once a day , Not-Taking Cyclobenzaprine HCl 5 MG Tablet 1 tab(s) orally qhs , Not-Taking Gabapentin 100 MG Capsule 2 cap(s) orally 3 times a day , Not-Taking Shingrix 50 MCG/0.5ML Suspension Reconstituted 0.5 mL intramuscularly once , Unknown Pioglitazone HCl 15 MG Tablet 1 tab(s) orally once a day , Medication List reviewed and reconciled with the patient * Allergies: N .K.D.A. Objective: * Vitals: W t:147.4, Temp: 98.9, BP: 112/54, HR: 83, Nurse:, Ht: 65, BMI:24.53. * Examination: G eneral Examination: General Appearance: N AD. H EENT: conjunctivae erythematous bilaterally, P ERRLA, TM's normal, translucent. O ral cavity: n o lesions, mucosa moist and WNL, no erythema. N fabienne: s upple, no lymphadenopathy. C hest: n ormal shape and expansion. H eart: R SR. L ungs: c lear to auscultation. S kin:? a few sores on the bilateral lower arms with some crusting, no erythema. Assessment: * Assessment: 1. 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 A llergic conjunctivitis of both eyes - H10.13 3 . S kin sore - L98.9 Plan: * Treatment: 2. A llergic conjunctivitis of both eyes Start Azelastine HCl Solution, 0.05 %, 1 drop into affected eye, Ophthalmic, Twice a day, prn, 1, Refills 0. 3. S kin sore Start Mupirocin Ointment, 2 %, 1 application, Externally, Twice a day, 1, Refills 0. * Follow Up: p rn * Images: Billing Information: * Visit Code: 85868 Office Visit, Est Pt., Level 3. * Procedure Codes: * Electronic signature of XOCHILT English on 12/03/2024 at 02:09 PM EDT Sign off status: Pending * Provider: XOCHILT Shipman Date: 0 08/09/2023 Generated for Kay price/Marcel/Fabiosmitting on: 0 12/03/2024 02:09 PM EDT History and Physical Notes * HPI (History of Present Illness) Category Sub-Category Detail Notes Category Not es Opthalmology redness burning sensation itching pt is here for persi stent itching in both eyes with watering, burning and redness, this has been ongoing for a few weeks and she has been scratching them, she now has some crusting in the morning and they are getting red Examination Category Sub-Category Detail Notes Category Not es General Examination HEENT: conjunctivae erythematous bilaterally, PERRLA, TM's normal, translucent Heart: RSR Lungs: clear to auscultatio n General Appearance: NAD Skin: a few sores on the b ilateral lower arms with some crusting, no erythema Neck: supple, no lymphaden opathy Oral cavity: no lesions, mucosa m oist and WNL, no erythema Chest: normal shape and exp ansion
--- OUTSIDE RECORDS SUMMARY | 2024-09-18 06:45 | XMS_ITS ---
Author Organization [facility] Address [facility] [facility] [address] [place] [id number] Care Team Providers Care Ham Smoker Name Role Phone Serena Pope Primary Care Provider Elen Mckenna Unavailable [phone] Allergies No Known Allergies REASON FOR VISIT [...] 09/18/2024 Encounters Encounter Location Date Provider Diagnosis [facility] [address] [place] [address], [place] [id number] 09/18/2024 Elen Mckenna Visit for suture rem [...] Notes * SUSHMA PACHECO:1934 (89 yo F)Acc No.[id number]:09/18/2024 Progress Notes Patient: SUSHMA KNIGHTLucy Provider: XOCHILT Shipman :1935 A ge:89 Y S ex:Female Date:09/18/2024 Phone: Address:[address] [place], [place] [address], [id number] Pcp:Serena Pope Subjective: * Chief Complaints: * [...] subsequent encounter - S02.2XXD 4 . B [place] 24.0-24.9, adult - Z68.24 5 . E [...] * Images: Billing Information: * Visit Code: 45780 Office Visit, Est Pt., Level 3. * Procedure Codes: G2211 Complex e/m visit add on. 3074F SYST BP LT 130 MM HG. 3079F DIAST BP 80-89 MM HG. G8420 BMI<30 AND >=22 CALC & DOCU. * Electronic signature of XOCHILT English on 12/03/2024 at 02:09 PM EDT Sign off status: Pending * Provider: XOCHILT Shipman Date: 0 09/18/2024 Generated for Kay price/Marcel/eTransmitting on: 0 12/03/2024 02:09 PM EDT History [...]
--- OUTSIDE RECORDS SUMMARY | 2024-12-03 14:09 | XMS_ITS | Encounter Summary ---
Author Organization Healthcare Address [address] [place] [address] Care Team Providers Care Eligibility Examiner Name Role Phone Betsy Smith MD Primary Care Provider [phone] Encounter Details Date Type Department Care Team (Late Contact Info) Description 02/15/2023 Orders Only External Location [address] [place] [address] Elen Mckenna PA [address] [place] [address] Social History Tobacco Use Types Packs/Day Years [...] [facility], [address] [place] [address] Griffin Bustillos MD [address] [facility] [address] [place] [address] documented as of this encounter [...] on filedocumented in this encounter Care Teams Eligibility Examiner Relationship Specialty Start Date End Date Betsy Smith MD [address] [facility] [address] [place] [address] PCP - General 06/13/23 documented as of this encounter
--- OUTSIDE RECORDS SUMMARY | 2024-12-03 14:09 | XMS_ITS | Encounter Summary ---
Author Organization Healthcare Address [address] [place] [address] Care Team Providers Care Application Support Developer Name Role Phone Betsy Smith MD Primary Care Provider [phone] Encounter Details Date Type Department Care Team (Late Contact Info) Description 03/08/2023 Orders Only External Location [address] [place] [address] Amado Pope MD [address] [place] [id number] Social History Tobacco Use Types Packs/Day Years [...] [facility] [address] [facility], [address] [place] [address] Griffin Bustillos MD [address] [facility] [address] [place] [address] documented as of this encounter Procedures Procedure Name Priority Date/Time Associated Diagnosis Comments CT OUTSIDE IMAGES 03/08/2023 2:32 PM EDT documented in this encounter Results * CT OUTSIDE IMAGES (03/08/2023 2:32 PM EDT) Anatomical Region Laterality Modality Computed Tomogra phy 03/08/2023 2:32 PM EDT Amado Pope MD IMG CT PROCEDURES Final Re sult documented in this encounter Visit Diagnoses Not on filedocumented in this encounter Care Teams Application Support Developer Relationship Specialty Start Date End Date Betsy Smith MD [address] [facility] [address] [place] [address] PCP - General 06/13/23 documented as of this encounter
--- OUTSIDE RECORDS SUMMARY | 2024-12-03 14:09 | XMS_ITS | Clinical Summary ---
Author Organization Healthcare Address [address] [place] [address] Care Team Providers Care Progress Developer Name Role Phone Betsy Smith MD Primary Care Provider [phone] Allergies No known active allergies Medications metFORMIN [...] 6 (six) hours. 09/25/2023 Active HYDROcodone-acet aminophen ([place]) 5-325 MG tablet Take 1 tablet (5 mg of hydrocodone) by mouth every 6 (six) hours if needed for severe pain. 09/25/2023 Active Melatonin [address] 3 mg under the tongue 1 (one) time each day. Active Active Problems Problem Noted Date Diagnosed Date Hip pain, left 08/14/2023 Encounters Date Type Department Care Team Description 09/17/2024 2:30 PM EDT Office Visit [facility] [address] [address] John Robertson, DMD Closed fracture of nasal bone, initial encounter (Primary Dx) 09/17/2024 Travel 09/11/2024 Orders Only External Location [address] [place] [address] Ruffo, Shy L 09/11/2024 Orders Only External Location [address] [place] [address] Ruffo, Shy L 09/11/2024 Orders Only External Location [address] [place] [address] Ruffo, Shy L from Last 3 Months Family History Medical [...] drink first t dahlia in the morning (EYE-DAIRY EQUIPMENT SPECIALIST) to steady your nerves or to get [...] Sign Reading Time Taken Comments Blood Pressure 174/93 09/17/2024 2:41 PM EDT Pulse 89 09/17/2024 2:41 PM EDT Temperature 36.7 C (98.1 F) 09/17/2024 2:41 PM EDT Respiratory Rate 17 09/25/2023 2:23 AM EDT Oxygen Saturation 96% 09/17/2024 2:41 PM EDT Inhaled Oxygen Concentration - - [...] Joint [address] [place] [address] Griffin Bustillos MD [address] [place] [address] Health Maintenance Due Date Last Done Comments Dental Oral Exam 1935 Dental Prophylaxis 1935 Dental X-Ray: Bitewings 1935 Dental X-Ray: Full Mouth 1935 [facility]-Depression Screening 1935 [facility]-/Child/Adol SDOH Screenings 1935 [facility]- SDOH Screenings 1955 [facility]-Adult SDOH Screenings 1953 [facility]-Zoster Vaccines (2 of 3) 11/19/2008 09/24/2008 [facility]-Bone Density Scan 11/17/2023 11/16/2022 , 11/16/2022, 06/30/2019, Additional history exists [id number]-99 Vaccine ( season) 2024 01/18/2024, 06/28/2023, 09/22/2022, Additional history exists [facility]-Influenza Vaccine (#1) 01/05/202501/17, 03/15/2023, 04/05/2022, Additional history exists [facility]-Diabetes: Hemoglobin A1C 05/15/2025 05/15/2024, 03/28/2024, 09/04/2023, Additional history exists [facility]-Medicare Annual Wellness (AWV) 06/09/2025 06/09/2024, 06/05/2023, 03/24/2022, Additional history exists [facility]-DTaP,Tdap,and Td Vaccines (3 - Td or Tdap) 09/11/2034 09/11/2024, 05/26/2020 [facility]-Pneumococcal Vaccine: 50+ Years Completed 02/12/2015, 03/30/2010 [facility]-Hepatitis A Vaccines Aged Out 08/16/2018, 12/2017 No longer eligible based on patient's age to complete this topic [facility]-RSV Vaccine: 60+ Years or Completed 07/02/2023 HPV Vaccines Aged Out No longer eligi ble based on patient's age to complete this topic [facility]-HIB Vaccines Aged Out No longer e ligible based on patient's age to complete this topic [facility]-IPV Vaccines Aged Out No longer e ligible based on patient's age to complete this topic [facility]-Rotavirus Vaccines Aged Out No lo nger eligible based on patient's age to complete this topic Medical Devices Implanted Type Area Environmental Conflict Manager Device Identifier Shelf Expiration Date Model / Serial / Lot Chg Cable D-M 2.0mm Beaded Set - [id number] Implanted:Qty: 1 on 09/19/2023 by Griffin Bustillos MD at [facility] Cable Left: Hip [employer] ([facility])-[id number] 68 12/18/2027 [id number] / / [id number] Shell Trident Ii Cluster 52mm - [id number] Implanted:Qty: 1 on 09/19/2023 by Griffin Bustillos MD at [facility] Hip Left: Hip [employer] [facility]1391 68 08/21/2028 [id number] / / [id number] Hip Size 6 Accolade Ii 127 Deg - [id number] Implanted:Qty: 1 on 09/19/2023 by Griffin Bustillos MD at [facility] Hip Left: Hip [employer] ([facility])-[id number] 68 04/04/2027 [id number] / / [id number] Chg Head Delta V-40 Ceramic 36 - [id number] Implanted:Qty: 1 on 09/19/2023 by Griffin Bustillos MD at [facility] Hip Left: Hip [employer] ([facility])-[id number] 68 03/26/2028 [id number] / / [id number] Liner Trident X3 10deg 36 Mm Id 5.9 Mm - [id number] Implanted:Qty: 1 on 09/19/2023 by Griffin Bustillos MD at [facility] Liner Left: Hip [employer] ([facility])-1391 68 06/30/2028 [id number] / / [id number] Screw 6.5mm Trident Low Profile Hex 25mm - [id number] Implanted:Qty: 1 on 09/19/2023 by Griffin Bustillos MD at [facility] Screw Left: Hip [employer] ([facility])-[id number] 68 07/11/2028 [id number] / / [id number] Procedures Procedure Name Priority Date/Time Associated Diagnosis Comments XR OUTSIDE IMAGES 09/11/2024 4:[address] OUTSIDE IMAGES 09/11/2024 4:[address] OUTSIDE IMAGES 09/11/2024 4:2 9 PM EDT HEMOGLOBIN A1C Routine 09/04/2023 11:59 AM EDT Hip pain, left Primary localized osteoarthritis of left hip Type 2 diabetes mellitus without complication, unspecified whether terminal block assembler insulin use ([facility]) from Last 3 Months or Most Recently Relevant to Health Maintenance Results * XR OUTSIDE IMAGES (09/11/2024 4:47 PM EDT) Anatomical Region Laterality Modality Radiographic Jennifer ging 09/11/2024 4:47 PM EDT Shy Mccullough IMG XR PROCEDURES Final Result * CT OUTSIDE IMAGES (09/11/2024 4:29 PM EDT) Only the most recent of2 resultswithin the time period is included. Anatomical Region Laterality Modality Computed Tomogra phy 09/11/2024 4:29 PM EDT Shy Mccullough IMG CT PROCEDURES Final Result * (ABNORMAL) Hemoglobin A1c (09/04/2023 11:59 AM [...] Adults <6.0% Children and Adolescents <7.5% Source: [place] [employer]. Standards of medical care in diabetes,2017. Diabetes Care.2017:40 (suppl 1):S1-S135. HbA1c assay performed by an ion-exchange chromatography method that is certified traceable to the DCCT. Griffin Bustillos MD LAB BLOOD ORDERABLES Marielle solitario Result [facility] [address] [place] [address] from Last 3 Months or Most Recently Relevant to Health Maintenance [place] [address] ANTHEM Advance Directives * Full Code (Latest Code Status on File) Date Activated Date Inactivated Comments 09/19/2023 9:05 AM 09/25/2023 5:08 PM Question Answer Comments Patient has decision-making capacity? Yes Care Teams Progress Developer Relationship Specialty Start Date End Date Betsy Smith MD [address] [facility] [address] [place] [address] PCP - General 06/13/23
--- OUTSIDE RECORDS SUMMARY | 2024-12-03 14:09 | XMS_ITS | Encounter Summary ---
Author Organization Healthcare Address [address] [place] [address] Care Team Providers Care Sow Farm Technician Name Role Phone Betsy Smith MD Primary Care Provider [phone] Encounter Details Date Type Department Care Team (Late st Contact Info) Description 05/25/2023 Orders Only External Location [address] [place] [phone] Provider, External Social History Tobacco Use Types [...] Joint [address] [place] [address] Griffin Bustillos MD [address] [place] [address] documented as of this encounter [...] on filedocumented in this encounter Care Teams Sow Farm Technician Relationship Specialty Start Date End Date Betsy Smith MD [address] [place] [address] [address] [place] [address] PCP - General 06/13/23 documented as of this encounter
--- OUTSIDE RECORDS SUMMARY | 2024-12-03 14:09 | XMS_ITS | Clinical Summary ---
[facility] Address [address] [place] [address] Care Team Providers Care Location Man Name Role Phone Betsy Smith MD Primary Care Provider [phone] Allergies Active Allergy Reactions Criticality Noted Date Comments Linaclotide Diarrhea 08/29/2016 Atorvastatin 02/18/2016 Lipitor TABS Medications cholecalciferol (VITAMIN D3) 1000 units tablet Take 1 tablet by mouth Daily. Active Multiple Vitamins-Minerals (ICAPS AREDS 2 PO) Take 1 tablet by mouth 2 (Two) Times a Day. 022 Active acetaminophen (TYLENOL) 500 MG tablet Take 1 tablet by mouth 3 (Three) Times a Day. Active Ca Phosphate-Cholecalcifer ol ([employer] CALCIUM-VITAMIN D PO)Indications:Age-rela shantal osteoporosis without current pathological fracture Take 1 tablet by mouth 2 (Two) Times a Day. Active ezetimibe (Zetia) 10 MG tabletIndications:Pure hypercholesterolemia Take 1 tablet by mouth Daily. 90 tablet 3 025 Active esomeprazole (nexIUM) 20 MG capsule Take 1 capsule by mouth Every Morning Before Breakfast. Active Ketotifen Fumarate (ZADITOR) 0.035 % solutionIndications:All ergic conjunctivitis of both eyes 2 (Two) Times a Day. Active alendronate (FOSAMAX) 70 MG tabletIndications:Age-r elated osteoporosis without current pathological fracture Take 1 tablet by mouth 1 (One) Time Per Week. 13 tablet 3 02/03/2 025 Active FIBER COMPLETE PO Take by mouth Daily. Fiber gummies Active clobetasol propionate (TEMOVATE) 0.05 % creamIndications:Rash Apply to affected areas in thin layer BID 30 g Active oxybutynin XL (DITROPAN-XL) 10 MG 24 hr tabletIndications:Urina ry Incontinence Take 1 tablet by mouth Daily. Indications: Urinary Incontinence 90 tablet 2 Active Active Problems Problem Noted Date Diagnosed Date Allergic conjunctivitis of both eyes 06/09/2024 Overview (06/09/2024): Better with Zaditor Assessment & Plan (06/09/2024 4:29 PM EST): Success with zaditor eye drops Normocytic anemia 09/05/2023 Overview (10/08/2023): 10/05/[address] [facility] discharge s/p L THR - s/p 2u pRBCs at ; 09/24/23 discharge H&H 7.8/23.7; 09/19 and 09/21/23 s/p 2u pRBCs s/p L. KUSH; 09/04/23 worsened H&H 10.6/32.9, MCV 81 Assessment & Plan (11/12/2023 10:39 PM EDT): Stable CBC Assessment & Plan (10/18/2023 9:46 PM EDT): Acute on chronic anemia, s/p transfusion 2u pRBCs during hospitalization; f/u CBC today Mild cognitive impairment 08/31/2023 Overview (06/09/2024): 06/09/24 MMSE 28/30; 02/21/24 MMSE 28/30; 08/31/23 MMSE 27/30 Assessment & Plan (09/07/2024 1:15 AM EDT): Encouraged social activities; f/u MMSE in 3 mos Assessment & Plan (06/09/2024 4:31 PM EST): MMSE stable 28/30; encouraged again social activities and physical exercise as well as brain exercises with puzzles, reading, memorization, socialization, learning new activities/hobbies, and role of medications; she enjoys playing bingo; f/u in 6 mos Assessment & Plan (02/21/2024 1:22 PM EDT): MMSE stable 28/30; encouraged again social activities and physical exercise as well as brain exercises with puzzles, reading, memorization, socialization, learning new activities/hobbies, and role of medications; she enjoys playing bingo; f/u in 6 mos Assessment & Plan [...] kitchen appliances are not left on, etc Hip pain, left 08/14/2023 Insomnia 06/28/2023 Assessment & Plan (06/28/2023 7:40 PM EST): Advise against med RX, otilio with recent increased confusion and fall risk; advised most important intervention is to prevent daytime dozing/napping; rec setting alarms or phone calls as no one else is home during the daytime Avascular necrosis of hip, left 06/27/2023 Overview (03/28/2024): 02/26/24 ortho/Dr. Bustillos - onel 6 mos postop; f/u 1 yr; 09/19/23 ortho/Dr. Bustillos; s/p L. KUSH; rec ASA 81mg BID x 4 wks for DVT prevention; 07/13/23 see std wheelchair order from [facility] Med Equipment Assessment & Plan (06/27/2023 10:33 PM EST): L. KUSH per [facility] ortho Dr. Bustillos Spinal stenosis of lumbar [...] area Osteoarthritis of left hip 03/15/2023 Overview (03/28/2024): 02/26/24 ortho/Dr. Bustillos - onel 6 mos postop; f/u 1 yr; 09/19/23 ortho/Dr. Bustillos - s/p L. KUSH; rec ASA 81mg BID x 4 wks for DVT prevention; 06/16/23 CT pelvis ([facility]) - severe L femoroacetabular DJD with osteophytes, degen cystic changes, lg L hip effusion; 06/12/23 ortho/Dr. Huffman - rapid progression, concern for neoplasm vs septic arthritis, referral to [facility] Dr. Gardiner for eval (bx vs aspiration); 05/25/23 MRI L hip: severe degen change worsened from 03/29, mod joint effusion, bone marrow edema, abnl soft tissue around fem head/neck; NS - Dr. Artis 04/23/23 NS/Dr. Garcia - check MRI left hip; 03/16/23 see [facility] PT order dated 03/16/23; 03/08/23 CT left [...] swelling, 20 minutes 3x/day; has PT 2x/week ([facility]) but advised patient should be doing HEP [...] she leaves rehab so we can schedule [facility] hospital follow-up visit as most likely she [...] BID-TID prn as needed Hyponatremia 06/20/2017 Overview (07/13/2024): 07/10/24 persistent Na 126; cont 1.5L/day, liberalize Na, repeat BMP 1 wk; 06/30/24 Na 128; 06/16/24 recurrent Na 125; sugg of SIADH (s-osm 266, u-osm 406); 04/09/24 improved Na 135; 01/18/24 improved/nl Na 138; 10/05/[address] 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 this admit with mild hypovolemic aspect in setting of periop blood loss s/p transfusions 09/12/23 worsened Na 127; needs BMP, serum/urine osm (escribed); 09/04/23 Na 133; 06/16/23 [facility] admission Na 123; 130 by discharge; 06/06/23 persistent Na 128; 04/27/22 resolved Na 136 Assessment & Plan (09/08/2024 8:59 PM EDT): BMP with improved Na 133 but worsened renal function Cr 1.1, GFR 48; rec 50-60oz water per day (no more and no less); nl TSH 05/15/24; f/u BMP in 3 mos Assessment & Plan (03/28/2024 12:53 PM EST): Likely d/t dehydration int he ER; reviewed with patient she was also hyponatremia during her hip replacement hospitalization; update BMP today Assessment & Plan (02/17/2024 8:41 PM EDT): [...] in the office B12 deficiency 03/06/2017 Overview (05/21/2024): 05/15/24 B12 602; 06/28/23 nl B12 477; 06/06/23 stable B12 478; 03/24/22 super-high B12 1860; 03/14/21 supratherapeutic level 1482; 03/12/20 supratherapeutic level 1414, decr B12 from 1000mcg QD to 500mcg QD; 06/16/17 normal B12 (663) Assessment & Plan (06/07/2024 12:25 PM EST): Normal B12 level; no current supplementation Assessment & Plan (06/03/2023 10:11 PM EST): [...] hearing aids, RTC 1-2 yrs; 04/14/20 audiology/Dr. Valente - bilat SNHL (mild-mod at low tones, severe to [...] with reg phys activity; Assessment & Plan (09/08/2024 9:03 PM EDT): Resolved on daily fiber gummies; ok to remain off of Miralax since she reports stable BM; encouraged reg phys activity to help with bowel motility Assessment & Plan (03/28/2024 12:48 PM EST): Impaction resolved with soapsuds enema; rec fiber supplement, more water, miralax QD, prunes, and incr'd phys activity to help intestinal motility; f/u prn Assessment & Plan (01/19/2024 12:36 AM EDT): [...] kidney disease), stage III 02/29/20 16 Overview (05/21/2024): 05/15/24 worsened Cr 1.2 2, GFR 43; 04/09/24 worsened Cr 1.11, GFR 48.2; 02/22/24 improved Cr 0.9, GFR 59; 01/18/24 [...] - stable renal function; Assessment & Plan (09/08/2024 8:58 PM EDT): BMP with improved Na 133 but worsened renal function Cr 1.1, GFR 48; advised to aim for 50-60oz water per day, avoid NSAIDs, maintain good BG and BP control; f/u BMP in 3 mos Assessment & Plan (06/09/2024 4:30 PM EST): Renal function further worsened with Cr 1.22, GFR 43; note also worsened A1C 6.4 and bord BP; discussed importance of drinking enough water daily, at least 64 oz/day; also avoid NSAIDs; repeat BMP well-hydrated - lab order given to patient to get at [facility] Assessment & Plan (03/28/2024 12:53 PM EST): Worsened in the ER, due to poor intake with GI upset d/t constipation; encouraged adequate daily water intake; f/u BMP today Assessment & Plan (02/21/2024 1:22 PM EDT): [...] and scheduled bathroom breaks Assessment & Plan (09/08/2024 9:00 PM EDT): Feels oxybutynin XL 10mg QD#90, 2RF is helping; rec scheduled bathroom breaks Q2hrs to decrease urgency/incontinence risks; also rec bulk of water intake should be prior to 3pm and to limit around fluids past 7pm to decrease nocturia Assessment & Plan (06/09/2024 4:31 PM EST): Rec scheduled bathroom breaks every 2 hours; patient wants to retry Oxybutynin XL 10mg QD (already has RX at home) - if successful, she will request 90d RX Assessment & Plan (03/28/2024 12:55 PM EST): Currently mildly symptomatic and no significant change off of oxybutynin XL 10 mg; with recent ER visit for severe constipation and no difference on/off medication, advised being off of oxybutynin Assessment & Plan (02/17/2024 8:42 PM EDT): [...] exacerbate constipation Vitamin D deficiency 02/29/2016 Overview (05/21/2024): 05/15/24 vit D 51.7; 06/28/23 vit D 62.4; 06/06/23 vit D [...] stable with current supplementation; Assessment & Plan (06/07/2024 12:26 PM EST): Normal vit D level 51.7; cont 1000 units QD supplementation Assessment & Plan (06/03/2023 10:11 PM EST): [...] wellness visit, subsequent 02/28 Assessment & Plan (06/09/2024 4:31 PM EST): Health maintenance - COVID19 vacc 01/28; flu vacc 01/28; RSV 06/30; Prevnar 02/18; PVX 03/16; Tdap 05/27 (next Tdap due 2030), Shingrix and HAV done; no further mammo, Paps, colonosc unelss abnlities; DEXA 11/26, repeat after 11/16/24; eye exam w/ Dr. Duque 03/26/24 (needs Qyr); dental exam TBD per pt; (+)seat belt use Consultants: Patient Care Team: Betsy Smith MD as PCP - Ed Aragon MD as Consulting Physician (Ophthalmology) Julito Shen MD as Consulting Physician (Gastroenterology) Kristal Valente (Audiology) Isidro Artis MD as Consulting Physician (Neurosurgery) Steve Greenwood MD as Consulting Physician (Pain Medicine) Freedom Huffman MD as Consulting Physician (Orthopedic Surgery) Laura Moulton Au.D (Audiology) Assessment & Plan (06/05/2023 1:59 PM EST): [...] per patient unelss abnlities; DEXA ordered (last 2/20),; colonosc 2007, NEG cologuard 03/25/18; eye exam [...] Tdap 05/27 (next Td due 2021), Zostavax 5/09, Shingrix and HAV done; mammo 06/01/20; no [...] Tdap 10/15 (next Td due 2020), Zostavax 5/09, Shingrix and HAV done; mammo pending 05/31/20; [...] 09/12; mammo to be updated (08/27/15) at [facility]; no further Paps unelss abnlities; DEXA 03/22, [...] 09/12; mammogram 2015 - will request from [facility]; no further Paps unless abnlities; DEXA ordered (last 11/16); colonoscopy 08/12, repeat [address] Shen; eye exam to be updated with Dr. Duque; rec updated dental exam Patient Care Team: Betsy Smith MD as PCP - General Ed Duque MD as Consulting Physician (Ophthalmology) Julito Shen MD as Consulting Physician (Gastroenterology) Hyperlipidemia 02/18/2016 Overview (05/21/2024): 05/15/24 TC 138, TG 39, HDL 64, LDL 64; 06/28/23 TC 184, TG 56, HDL 79, [...] on zetia #90, 3RF; Assessment & Plan (06/07/2024 12:25 PM EST): Lipids stable with LDL 64; cont zetia 10mg QD #90, 3RF Assessment & Plan (06/03/2023 10:12 PM EST): [...] omeprazole 40mg QD with improved efficacy 10/05/[address] [facility] discharge s/p L THR; on pantoprazole 40mg [...] long-term current use of insulin 02/18/2016 Overview (03/28/2024): 03/26/24 ophlillio/Dr. Duque - no DMR, dry mac degen OU; 11/12/23 A1C 5.5, d/c met ER 500mg QD; 10/18/23 only on met ER 500mg QD; 10/05/[address] [facility] discharge s/p L THR - on met ER 500mg QD; 09.04.23 A1C 6.0; 06/28/23 A1C 6.3; 06/17/23 D/C meds - on amita/met ER QD (prev amita 30mg QD and met XR 500mg 2 QD; 06/16/23 A1C 6.0 ([facility]); 06/06/23 A1C 5.9; 06/05/23 A1C 6.4; 03/21/23 ophkeren/Dr. Duque - [place] DMR, dry mac degen OU; 03/08/22 yong/Dr. Duque - [place] DMR, has dry mac degen OU; 03/14/21 stable A1C 6.0; 03/02/21 Luisa Duque - no DM retinopathy; 09/09/20 A1C 6.0; 04/14/20 A1C 6.2; 03/25/20 A1C 6.05; 03/05/20 stable A1C 6.2, on amita 30mg QD met XR 750mg 2 QD; 07/16/19 yong/Dr. Duque - no DM retinopathy; 06/27/19 improved A1C 6.0; 03/05/19 stable bord A1C 6.3 (was 5. In 09/22, 5.7 in 01/22); on amita met 15/850 BID; 11/15/16 yong/Dr. Duque - [place] DM retinopathy Assessment & Plan (09/08/2024 9:00 PM EDT): BG control stable with A1c 6.2; no meds; encouraged reg phys activity to decr insulin resistance, moderation in unhealthy starches/sweets; f/u A1C in 3 mos Assessment & Plan (06/09/2024 4:36 PM EST): BG control worsened with A1C 6.4 but not on metformin any longer. reviewed nutrition recommendations - each snack or meal should have lean protein and carb component; ok to add glucerna shakes TID with meals; no meds currently; encouraged reg phys activity to decr insulin resistance, moderation in unhealthy starches/sweets; ok to refill test strips whenever she requests (states she just received #100); f/u A1C in 3 mos Assessment & Plan (03/28/2024 12:54 PM EST): Update A1C; no meds currently Assessment & Plan (11/12/2023 10:38 PM EDT): [...] updated DM eye exam upcoming at [facility] - will do this summer - request [...] eustachian tube 02/18/2016 Overview (02/29/2016): rec nika RIHCARDSON #3, 1RF, reviewed how to use correctly Assessment & Plan (03/10/2019 2:13 PM EST): Agree with having hearing evaluated Hypertension 02/18/2016 Overview (11/12/2023): 11/12/23 BP machine verified; no meds; 10/18/23 BP 132/68; no BP meds; 10/05/[address] [facility] discharge s/p L THR - irbesartan still [...] 3RF; low Na diet; Assessment & Plan (09/08/2024 8:57 PM EDT): BP mildly elevated 140/78; also note CKD stage 3 and hyponatremia; rec low Na diet and adequate daily water intake; cont home BP monitoring and f/u in 3 mos Assessment & Plan (06/09/2024 4:29 PM EST): BP stable 130/78; note also abnl Cr 1.22, GFR 43; advised low Na diet and to drink enough water on daily basis; repeat BMP when well-hydrated Assessment & Plan (03/28/2024 12:42 PM EST): BP elevated, improved but still elevated on repeat; was normotensive last month; rec monitoring BPs at home with goal < 130/80; no meds; f/u in the 3 mos at the latest, earlier if persistently > 140/90 Assessment & Plan (02/21/2024 1:21 PM EDT): [...] 25mg QD #90, 3RF and amlodipine benaz /40 QD #90, 3RF Cataract 02/18/2016 Overview (02/18/2016): s/p bilat cataract surgery (11/17 and 12/18); ophtho - Dr. Duque Osteoporosis 02/18/2016 Overview (10/08/2023): by DEXA (04/10); DEXA (11/16) L -0.1, H -1.8 Last Impression: 12 Feb 2015 Ca/vit D [...] per ortho Dr. Bustillos Assessment & Plan (06/07/2024 12:28 PM EST): Calcium and vitamin D supplementation with weight-bearing exercise; also on alendronate 70mg weekly; DEXA due after 11/16/24 Assessment & Plan (10/18/2023 9:47 PM EDT): [...] Encounters Date Type Department Care Team Description 09/08/2024 3:30 PM EDT Office Visit [facility] [address] [place] [phone] Betsy Smith MD Type 2 diabetes mellitus with stage 3b chronic kidney disease, without long-term current use of insulin (Primary Dx); Hyponatremia; Stage 3a chronic kidney disease; Hypertension; Mild cognitive impairment; Overflow incontinence of urine; Rash; Constipation 09/08/2024 Travel from Last 3 Months Immunizations Immunization Administration Dates Next Due Arexvy (RSV, Adults 60+ yrs) 07/02/2023 COVID-19 (MODERNA) 1st,2nd,3 rd Dose Monovalent 12/07/2021,02/16/2021,08/04/2020,07/07 COVID-19 (PFIZER) 12YRS+ (COMIRNATY) 01/18/2024, 06/28/2023 COVID-19 (PFIZER) BIVALENT 12+YRS 09/22/2022 FluMist 2-49yrs 02/12/2015,02/09/2014,02/24/2013 Fluad Quad 65+ 03/12/2020 Fluzone (or Fluarix & Flulav al for VFC) >6mos 05/19/2021 Fluzone High-Dose 65+YRS 01/18/2024,08/2018,02/01/2018,03/06,02/29/2016 Fluzone High-Dose 65+yrs 03/15/2023,04/05/2022 Hepatitis A 08/16/2018,02/11/2018 [...] Brief Depression Severity Measure Score 5 03/24/2022 PHQ-2 Answer Date Recorded Patient Health Questionnaire-2 Score 0 06/09/2024 Comments No Sex and Gender Information Value Date Recorded Sex Assigned at Not on file Legal Sex Female 12:10 PM EDT Gender Identity Not on file Sexual Orientation Not on file 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 Not on file Not on fi le Last Filed Vital Signs Vital Sign Reading Time Taken Comments Blood Pressure 140/78 09/08/2024 3:38 PM EDT Pulse 67 09/08/2024 3:38 PM EDT Temperature 36.7 C (98.1 F) 11/12/2023 2:03 PM EDT Respiratory Rate 16 02/21/2024 9:31 AM EDT Oxygen Saturation 97% 09/08/2024 3:38 PM EDT Inhaled Oxygen Concentration - - Weight 67.2 kg (148 lb 3.2 oz) 09/08/2024 3:38 P M EDT Height 160.7 cm (5' 3.25 ) 09/08/2024 3:38 PM ED T Body Mass Index 26.05 09/08/2024 3:38 PM EDT Plan of Treatment Upcoming Encounters Date Type Department Care Team (Late st Contact Info) Description 12/12/2024 12:45 PM EDT Office Visit [facility] [address] [place] [phone] Betsy Smith MD [address] [place] [phone] 06/26/2025 3:00 PM EST Office Visit [facility] [address] [place] [phone] Betsy Smith MD [address] [place] [address] [phone] Health Maintenance Due Date Last Done Comments COLON CANCER SCREENING 5 YEA R SIGMOIDOSCOPY 1982 [address] COLONOGRAPHY 1982 FECAL OCCULT BLOOD TEST 1982 FIT Testing (1 year) 1982 COLONOSCOPY 09/04/2017 09/05/2007 DIABETIC FOOT EXAM 03/06/2018 03/06/2017, 03/06/2017 COLOGUARD 03/25/2021 03/25/2018, 03/07, 03/25/2018 MOST FORM 03/22/2022 03/22/2021 INFLUENZA VACCINE 02/04/2025 01/18/2024, , 04/05/2022, Additional history exists HEMOGLOBIN A1C 03/11/2025 09/08/2024, 01/2025, 03/28/2024, Additional history exists DIABETIC EYE EXAM 03/26/2025 03/26/2024, , 03/26/2024, Additional history exists LIPID PANEL 05/15/2025 05/15/2024, 06/08, 06/06/2023, Additional history exists URINE MICROALBUMIN-CREATININ E RATIO (uACR) 05/15/2025 05/15/2024, 06/29/2023, 06/06/2023, Additional history exists ANNUAL WELLNESS VISIT 06/09/2025 06/09/2024 , 06/05/2023, 03/24/2022, Additional history exists DXA SCAN 11/16/2025 11/16/2022, 11/04, 06/30/2019, Additional history exists TDAP/TD VACCINES (3 - Td or Tdap) 05/26/2030 021, 05/26/2020 Pneumococcal Vaccine 50+ Completed 02/12/2015, 03/08 ZOSTER VACCINE Completed 09/20/2018, 12/2017, 09/24/2008 RSV Vaccine - Adults Completed 07/02/2023 COVID-19 Vaccine Discontinued 01/18/2024, , 09/22/2022, Additional history exists COLORECTAL CANCER SCREENING Discontinued Procedures Procedure Name Priority Date/Time Associated Diagnosis Comments POCT GLYCOSYLATED HEMOGLOBIN (HGB A1C) Routine 09/08/2024 3:47 PM EDT Type 2 diabetes mellitus with stage 3b chronic kidney disease, without long-term current use of insulin SCANNED - LABS 09/06/2024 MICROALBUMIN / CREATININE URINE RATIO Routine 05/15/2024 10:34 AM EST Medicare annual wellness visit, subsequent LIPID PANEL Routine 05/15/2024 10:34 AM EST Hyperlipidemia SCANNED - EYE EXAM 03/26/2024 DEXA BONE DENSITY AXIAL Routine 11/16/2022 9:33 AM EDT Menopause Osteoporosis SCANNED - COLOGUARD 03/25/2018 HM COLONOSCOPY Routine 09/05/2007 from Last 3 Months or Most Recently Relevant to Health Maintenance Results * (ABNORMAL) POC Glycosylated Hemoglobin (Hb A1C) (09/08/2024 3:47 PM EDT) Hemoglobin A1C 6.2(A) 4.5 - 5.7 % [facility] Lot Number [id number] [facility] Expiration Date 05/23/2026 [facility] Blood 09/08/2024 3:47 PM EDT us Betsy Smith MD POINT OF CARE TEST ORDERABLES Fi nal Result [facility]
[address] [place] [address], * LABS SCANNED (09/06/2024) us Betsy Smith MD LAB BLOOD ORDERABLES Final Resul t * Microalbumin / Creatinine Urine Ratio - Urine, Clean Catch (05/15/2024 10:34 AM EST) Microalbumin/C reatinine Ratio 11.3 0.0 - 29.0 mg/g 05/15/2024 11:33 PM EST [facility] Creatinine, Urine 141.8 mg/dL 05/15/2024 11:33 PM EST [facility] Microalbumin, Urine 1.6 mg/dL 05/15/2024 11:33 PM EST [facility] Urine Urine specimen obtained by clean catch procedure / Unknown Collection / Unknown 05/15/2024 10:34 AM EST 05/15/2024 10:34 AM EST us Betsy Smith MD URINE ORDERABLES Final Result [facility]
[address] [place] [address], * (ABNORMAL) Lipid Panel (05/15/2024 10:34 AM EST) Total Cholesterol 138 0 - 200 mg/dL 05/15/2024 2:51 PM EST [facility] Triglycerides 39 0 - 150 mg/dL 05/15/2024 2:51 PM EST [facility] HDL Cholesterol 64(H) 40 - 60 mg/dL 05/15/2024 2:51 PM EST [facility] LDL Cholesterol 64 0 - 100 mg/dL 05/15/2024 2:51 PM EST [facility] VLDL Cholesterol 10 5 - 40 mg/dL 05/15/2024 2:51 PM EST [facility] LDL/HDL Ratio 1.03 05/15/2024 2:51 PM EST [facility] Blood Venipuncture / Unknown 05/15/2024 10:34 AM EST 05/15/2024 10:34 AM EST [facility] - 05/15/2024 2:51 PM EST Cholesterol Reference Ranges (U.S. Department of Health and Human Services ATP III Classifications) Desirable <200 mg/dL Borderline High 200-239 mg/dL High Risk >240 mg/dL Triglyceride Reference Ranges (U.S. Department of Health and Human Services ATP III Classifications) Normal <150 mg/dL Borderline High 150-199 mg/dL High 200-499 mg/dL Very High >500 mg/dL HDL Reference Ranges (U.S. Department of Health and Human Services ATP III Classifications) Low <40 mg/dl (major risk factor for CHD) High >60 mg/dl ('negative' risk factor for CHD) LDL Reference Ranges (U.S. Department of Health and Human Services ATP III Classifications) Optimal <100 mg/dL Near Optimal 100-129 mg/dL Borderline High 130-159 mg/dL High 160-189 mg/dL Very High >189 mg/dL Betsy Smith MD LAB BLOOD ORDERABLES Final Resul t [facility]
[address] [place] [address], * EYE EXAM SCANNED (03/26/2024) Anatomical Region Laterality Modality Other Betsy Smith [...] fall-prevention measurements. The National Osteoporosis Foundation recommends (http://www.nof.org/hcp/practice/ichrvnsm-ssz-diiqkcfy-guidelines/clinicians-hussein de) that FDA-approved medical therapies be considered [...] not reported a history with osteoporosis treatment. At this facility, the least significant change in the BMD at the left hip with 95% confidence is 0.929471 gm/cm2 at the hip and 0.819213 g/cm2 at the lumbar spine. Electronically Signed: Colt Leavitt 11/20/2022 2:54 PM EDT Workstation ID: [id number] Narrative 11/20/2022 2:54 PM EDT DUAL-ENERGY X-RAY [...] in the L1-L4 region is 1.030 g/cm2. The average T-score is -0.2. The Z-score is not applicable. Total Hip: The BMD measured at the left total proximal femur is 0.739 negative g/cm2. The T-score is 1.7. The Z-score is not applicable. Femoral Neck: The BMD measured at the left femoral neck is 0.753 g/cm2. The T-score is -0.9. The Z-score is not applicable. 1/3 Radius: The BMD measured at the left one-third radius is 0.369 g/cm2. The T-score is -5.4. The Z-score is not applicable. Procedure Note Gemma [...] normal patients. According to criteria established by the[facility], patients with T-scores between [...] exercises and fall-prevention measurements. The NationalOsteoporosis Foundation recommends(http://www.nof.org/hcp/practice/jnztwhge-nch-pwhfsmpf-guidelines/clin ician s-guide) that FDA-approved medical therapies be [...] at the left hipwith 95% confidence is 0.328652 gm/cm2 at the hip and 0.526622 g/cm2 atthe lumbar spine. Electronically Signed: Colt Leavitt 11/20/2022 2:54 PM EDT Workstation ID: [id number] Betsy Smith MD IMG DXA ORDERABLES Final Result * SCANNED - COLOGUARD (03/25/2018) Betsy Smith MD LAB BLOOD ORDERABLES Final Resul t * COLONOSCOPY (09/05/2007) [facility] Colonoscopy colonoscopy 09/11 , GI - Dr. Shen (previously Dr. Egan) Michael Jacobo MD HEALTH MAINTENANCE Final Result from Last 3 Months or Most Recently Relevant to Health Maintenance Insurance [facility] Member Subscriber Plan / Payer (Ef fective 2001-Present) Name:Tasneem Perales Relation to Subscriber:Self Name:Tasneem Perales Payer ID:[id number] (NAIC) Group ID:[id number] Type:Not on file Address: [facility] [address] [id number] MEDICARE A & B Advance Directives Documents on File Type Date Recorded Patient Records Supervisor Expl anation [place]OST ([place]) - SCAN 03/22/2021 12:49 PM MOST FORM, [facility] [place], 03/21/2021 Healthcare Agents on File Name Relationship Healthcare Agent [facility] p Communication Nory Perales Son Health Care Surrogate Care Teams Location Man Relationship Specialty Start Date End Date Betsy Smith MD [address] [place] [address] PCP - General 02/08/15
--- OUTSIDE RECORDS SUMMARY | 2024-12-03 14:10 | XMS_ITS | Encounter Summary ---
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 ezetimibe (Zetia) 10 MG tablet 90 tablet 3 Sig: Take 1 tablet by mouth Daily. When do you need the refill by: JOSE What details did the patient provide when requesting the medication: PATIENT HAS REQUESTED A NEW PRESCRIPTION FOR ABOVE MEDICATION PATIENT STATES DOCTOR NEEDS TO CALL [facility] AT [phone] Does the patient have less than a 3 day supply: [x] Yes [] No What is the patient's preferred pharmacy[facility] [id number] TO [facility] [phone] [facility] [phone] FX documented in this encounter Plan of Treatment Upcoming Encounters Date Type Department Care Team (Late st Contact Info) Description 12/12/2024 12:45 PM EDT Office Visit [facility] [address] [place] [phone] Betsy Smith MD [address] [place] [address] 06/26/2025 3:00 PM EST Office Visit [facility] [address] [place] [phone] Betsy Smith MD [address] [place] [address] documented as of this encounter Visit Diagnoses Diagnosis Hyperlipidemia Pure hypercholesterolemia documented in this encounter Care Teams Cfd Engineer Relationship Specialty Start Date End Date Betsy Smith MD [address] [place] [phone] PCP - General 02/08/15 documented as of this encounter
--- OUTSIDE RECORDS SUMMARY | 2024-12-03 14:10 | XMS_ITS | Encounter Summary ---
Author Organization [facility] ystem Address [address] [place] [address] Care Team Providers Care Nba Player Name Role Phone Betsy Smith MD Primary Care Provider [phone] Encounter Details Date Type Department Care Team ([facility] Contact Info) Description 09/30/2013 External CPT II [facility] Social History Tobacco Use [...] Department Care Team (Late Contact Info) Description 12/12/2024 12:45 PM EDT Office Visit [facility] INTER[facility] [address] [place] [phone] Betsy Smith MD [address] [place] [address] 06/26/2025 3:00 PM EST Office Visit [facility] [address] [place] [phone] Betsy Smith MD [address] [place] [address] documented as of this encounter Visit Diagnoses Not on filedocumented in this encounter Care Teams Nba Player Relationship Specialty Start Date End Date Betsy Smith MD [address] [place] [address] PCP - General 02/08/15 documented as of this encounter
[2024-12-03 15:43] LABS: Hemoglobin A1C 5.7 % (4.0-6.0)
[2024-12-03 16:02] LABS: Anion Gap 10.8 mEq/L (5-15); Blood Urea Nitrogen 23 mg/dl (7-17); Calcium 11.1 mg/dl (8.4-10.2); Carbon Dioxide 29 mmol/L (22.0-30.0); Chloride 94 mmol/L (98-107); Creatinine,Serum 1.10 mg/dl (0.52-1.04); Estimated Glomerular Filt Rate 47 ml/min (>60); GFR (African American) 57 ML/MIN (>60); Glucose 93 mg/dl (74-100); Potassium 4.8 mmoL/L (3.5-5.1); Sodium 129 mmol/L (136-145)
== END 2024-12-03 23:59 | disposition home or self-care (01) ==
LOC: LAB 14:06
PROVIDERS: PCP Internal Medicine; Visit Provider Internal Medicine
DX: E11.22 Type 2 diabetes mellitus with diabetic chronic kidney disease (principal); N18.32 Chronic kidney disease, stage 3b; E87.1 Hypo-osmolality and hyponatremia
CPT/HCPCS: 36415; 80048; 83036

== ENCOUNTER 2025-02-02 11:00 | Outpatient (RCR) | payer MEDICARE, BC, SELFPAY | END 2025-02-02 23:59 | disposition home or self-care (01) | LOC: PT 11:00 | PROVIDERS: PCP Internal Medicine; Visit Provider Internal Medicine | DX: R29.6 Repeated falls (principal) | CPT/HCPCS: 97110; 97112; 97162; 97530 ==

== ENCOUNTER 2025-02-09 12:05 | Outpatient (CLI) | payer MEDICARE, BC, SELFPAY ==
--- OUTSIDE RECORDS SUMMARY | 2024-09-18 06:45 | XMS_ITS ---
Author Organization [facility] Address [address] [facility] [address] [place] [phone] Care Team Providers Care Maintenance Inspector Name Role Phone Serena Pope Primary Care Provider Elen Mckenna Unavailable [phone] Allergies No Known Allergies REASON FOR VISIT [...] Twice a day 08/09/2023 Active Vital Signs Weight 148.2 lbs 09/18/2024 Blood pressure systolic 118 mm Hg 09/19/19 25 Blood pressure diastolic 82 mm Hg 025 Heart Rate 96 /min 09/18/2024 Height 65 in 09/18/2024 BMI 24.66 kg/m2 09/18/2024 Encounters Encounter Location Date Provider Diagnosis [facility] [facility] [facility] [address] [phone] 09/18/2024 Elen Mckenna Visit for suture rem [...] Notes * SUSHMA PACHECO:1934 (89 yo F)Acc No.[id number]:09/18/2024 Progress Notes Patient: SUSHMA KNIGHTLucy Provider: XOCHILT Shipman :1935 A ge:89 Y S ex:Female Date:09/18/2024 Phone: Address:[address] [place], [place] [address], [id number] Pcp:Serena Pope Subjective: * Chief Complaints: * [...] subsequent encounter - S02.2XXD 4 . B PR 24.0-24.9, adult - Z68.24 5 . E [...] * Images: Billing Information: * Visit Code: 53229 Office Visit, Est Pt., Level 3. * Procedure Codes: G2211 Complex e/m visit add on. 3074F SYST BP LT 130 MM HG. 3079F DIAST BP 80-89 MM HG. G8420 BMI<30 AND >=22 CALC & DOCU. * Electronic signature of XOCHILT English on 02/09/2025 at 12:09 PM EDT Sign off status: Pending * Provider: XOCHILT Shipman Date: 0 09/18/2024 Generated for Kay price/Marcel/eTransmitting on: 1 12:09 PM EDT History and Physical Notes * [...]
--- OUTSIDE RECORDS SUMMARY | 2024-09-25 09:00 | XMS_ITS ---
Author Organization [facility] [facility] [address] [place] [id number] Care Team Providers Care Almond Sorter Name Role Phone Serena Pope Primary Care Provider [phone] Elen Mckenna Unavailable [phone] Allergies No Known Allergies REASON FOR VISIT f/u sutur removal Medications Medication SIG (Take, Route, Frequency, Duration) Notes Start Date End Date Status Shingrix 50 MCG/0.5ML 0.5 mL intramuscularly once 09/20/2018 Not-Taking Gabapentin 100 MG 2 cap(s) orally 3 times a day Not-Taking Pioglitazone HCl 15 MG 1 tab(s) orally once a day Unknown Meloxicam 15 MG 1 tab(s) orally once a day Not-Taking Cyclobenzaprine HCl 5 MG 1 tab(s) orally qhs Not-Taki ng Linzess 72 MCG 1 cap(s) orally once a day Not-Taking amLODIPine Besy-Benazepril HCl 5-40 MG 1 cap(s) orally once a day Not-Taking Vitamin B-12 1000 MCG 1 tab(s) orally once a day; Duration: 30 day(s) Not-Taking Doxycycline Hyclate 100 MG 1 cap(s) orally 2 times a day 08/03/2022 Not-Taking RANITIDINE HYDROCHLORIDE 300 MG 1 TAB(S) ORALLY ONCE A DAY (AT BEDTIME) *Please review for potential replacement for e-prescription and drug interaction check* 09/20/2018 Not-Taking Vitamin D3 25 MCG (1000 UT) 1 tab(s) orally once a day Not-Taking Atorvastatin Calcium 20 MG 1 tab(s) orally once a day; Duration: 30 day(s) Not-Taking traMADol HCl 50 MG 1 tab(s) Orally three times a day as needed 03/13/2023 Not-Taking Azelastine HCl 0.05 % 1 drop into affected eye Ophthalmic Twice a day, prn 08/09/2023 Active Mupirocin 2 % 1 application Externally Twice a day 08/09/2023 Active Calcium Carbonate 600 MG 2 TAB(S) CHEWED ONCE A DAY Active Irbesartan 300 MG 1 tab(s) orally once a day; Duration: 30 day(s) Active metFORMIN HCl ER 750 MG 1 tab(s) orally 2 times a day Active Zetia 10 MG 1 tab(s) orally once a day Active Moxifloxacin HCl 0.5 % 1 drop into affected eye Ophthalmic Three times a day 08/09/2023 Active Eye Vitamins - as directed Orally Active Cephalexin 500 MG 1 capsule Orally Two times a day Active Alendronate Sodium 70 MG 1 tablet 30 minutes before the first food, beverage or medicine of the day with plain water Orally; Duration: 30 day(s) Active Omeprazole 20 MG 1 capsule 30 minutes before morning meal Orally Once a day; Duration: 30 day(s) Active Vital Signs Weight 148.8 lbs 09/25/2024 Blood pressure systolic 130 mm Hg 09/26/19 25 Blood pressure diastolic 72 mm Hg 025 Heart Rate 76 /min 09/25/2024 Height 65 in 09/25/2024 BMI 24.76 kg/m2 09/25/2024 Encounters Encounter Location Date Provider Diagnosis [facility] [address] [id number] 09/25/2024 Elen Crowdy Cellulitis of right finger L03.011 ; Closed fracture of nasal bone with routine healing, subsequent encounter S02.2XXD ; BMI 24.0-24.9, adult Z68.24 and Controlled type 2 diabetes mellitus without complication, without long-term current use of insulin E11.9 Assessments Encounter Date Diagnosis (ICD Code) Assessment Notes Treatment Notes Treatment Clinical Notes Section Notes 09/25/2024 Cellulitis of right finger (ICD-10 - L03.011) 09/25/2024 Closed fracture of nasal bone with routine healing, subsequent encounter (ICD-10 - S02.2XXD) Patient has seen a specialist at and they are not going to do any surgery at this time. 09/25/2024 BMI 24.0-24.9, adult (ICD-10 - Z68.24) 09/25/2024 Controlled type 2 diabetes mellitus without complication, without long-term current use of insulin (ICD-10 - E11.9) Plan Of Treatment Medication Medication Name Sig Start Date Stop Date Notes Cephalexin 500 MG 1 capsule Orally Two times a day Treatment Notes Assessment Notes Closed fracture of nasal bon e with routine healing, subsequent encounter Patient has seen a specialist at and they are not going to do any surgery at this time. Next Appt Details Follow Up: prn, Reason: Progress Notes * SUSHMA PACHECOLucy:1934 (89 yo F)Acc No.[id number]:09/25/2024 Progress Notes Patient: SUSHMA KNIGHT Provider: XOCHILT Shipman :1935 A ge:89 Y S ex:Female Date:09/25/2024 Phone: Address:[address] [place] [address] [place], [id number] Pcp:Serena Pope Subjective: * Chief Complaints: * 1 . F/u sutur removal. * HPI: H PI: 89 year old female presents with c/o Patient is here today for?Pt sts she is here today to have her rt index finger looked at and rewrapped. Pt sts it is still nasty looking. Pt sts she has been cleaning it in vinegar and water. * ROS: D ERMATOLOGY: no R mike. n o H berny. G ASTROENTEROLOGY: no N ausea. n o V omiting. n o D iarrhea.? U ROLOGY: no D ifficulty urinating. n [...] 1 application Externally Twice a day , Taking Cephalexin 500 MG Capsule 1 capsule Orally Two times a day , Not-Taking Vitamin D3 25 MCG (1000 UT) Tablet 1 tab(s) orally once a day , Not- Taking traMADol HCl 50 MG Tablet 1 tab(s) Orally three times a day as needed , Not- Taking Atorvastatin Calcium 20 MG Tablet 1 tab(s) [...] N .K.D.A. Objective: * Vitals: W t: 148.8, Temp: 97.5, BP: 130/72, HR: 76, Nurse: alverto, Ht: 65, BMI:24.76. * Examination: G eneral Examination: General Appearance: N AD. H eart: R SR. L ungs:?clear to auscultation. S kin: r ight index finger healing well, no further erythema.? Assessment: * Assessment: 1. C ellulitis of right finger - L03.011 S pecify :2nd digit 2 . C losed fracture of nasal bone with routine healing, subsequent encounter - S02.2XXD 3 . B [place] 24.0-24.9, adult - Z68.24 4 . C ontrolled type 2 diabetes mellitus without complication, without long-term current use of insulin - E11.9? Plan: * Treatment: 2. C losed fracture of nasal bone with routine healing, subsequent encounter Notes: Patient has seen a specialist at and they are not going to do any surgery at this time.? * Procedure Codes: G 2211 Complex e/m visit add on, 3075F SYST BP GE 130 - 139MM HG, 3078F DIAST BP < 80 MM HG, G8420 BMI<30 AND >=22 CALC & DOCU * Follow Up: p rn * Images: Billing Information: * Visit Code: 86730 Office Visit, Est Pt., Level 3. * Procedure Codes: G2211 Complex e/m visit add on. 3075F SYST BP GE 130 - 139MM HG. 3078F DIAST BP < 80 MM HG. G8420 BMI<30 AND >=22 CALC & DOCU. * Electronic signature of XOCHILT English on 02/09/2025 at 12:10 PM EDT Sign off status: Pending * Provider: XOCHILT Shipman Date: 0 09/25/2024 Generated for Printi ng/Faxing/eTransmitting on: 1 12:10 PM EDT History and Physical Notes * HPI (History of Present Illness) Category Sub-Category Detail Notes Category Not es HPI Patient is here today for Pt sts she is here today to have her rt index finger looked at and rewrapped. Pt sts it is still nasty looking. Pt sts she has been cleaning it in vinegar and water Examination Category Sub-Category Detail Notes Category Not es General Examination Heart: RSR Lungs: clear to auscultatio n General Appearance: NAD Skin: right index finger h ealing well, no further erythema
--- OUTSIDE RECORDS SUMMARY | 2024-12-12 12:45 | XMS_ITS | Encounter Summary ---
[facility] Organization [facility] Address [address] [place] [address] Care Team Providers Care Fixture Fabricator Repairer Name Role Phone Betsy Smith MD Primary Care Provider [phone] Reason for Referral * Physical Therapy (Routine) - Closed Specialty Diagnoses / Procedures Referred By Mariza maher Referred To Contact Physical Therapy Diagnoses Recurrent falls Procedures PA OFFICE/OUTPATIENT NEW MODERATE MDM 45 MINUTES Betsy Smith MD [address] [place] [address] Phone: tel: fax: [facility] [address] [place] [address] Phone: tel: fax: Referral ID Status Reason Start Date Expiration Date V isits Requested Visits Authorized Closed Specialty Services Required 12/12/2024 03/13/2026 1 1 Scheduling Instructions Patient will schedule herself at [facility] Reason for Visit * Reason Comments Diabetes Hypertension Mild Cognitive Impairment Encounter Details Date Type Department Care Team ([facility] st Contact Info) Description 12/12/2024 12:45 PM EDT Office Visit [facility] [address] [place] [phone] Betsy Smith MD [address] [place] [address] Type 2 diabetes mellitus with stage 3a chronic kidney disease, without long-term current use of insulin (Primary Dx); Stage 3a chronic kidney disease; Hyponatremia; Mild cognitive impairment; Hypertension; Recurrent falls; Excoriation Social History Tobacco Use Types Packs/Day Years [...] 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 Not on fi le documented as of this encounter Last Filed Vital Signs Vital Sign Reading Time Taken Comments Blood Pressure 142/70 12/12/2024 12:41 PM EDT Pulse 78 12/12/2024 12:41 PM EDT Temperature - - Respiratory Rate - - Oxygen Saturation 99% 12/12/2024 12:41 PM EDT Inhaled Oxygen Concentration - - Weight 67.6 kg (149 lb) 12/12/2024 12:41 PM EDT Height 160.7 cm (5' 3.25 ) 12/12/2024 12:41 PM E DT Body Mass Index 26.19 12/12/2024 12:41 PM EDT documented in this encounter Progress Notes * Betsy Smith MD - 12/12/2024 9:43 PM EDTAssociated Problem(s): Recurrent falls Fall precautions reviewed; strongly advised to put up the dogs when doing housework; strongly advised patient to have an alert system or something that connects to her phone so she can get help if she falls and doesn't have her phone with her; PT order given for balance/gait and fall risk; patient will pursue at [facility] (son is going to rehab there 3x/wk after lung transplant/heart surgery) * Betsy Smith MD - 12/12/2024 1:06 PM EDTAssociated Problem(s): Hypertension BP mildly elevated, worsened on repeat; restart BP medication - RX irbesartan 75mg QD #30, 1RF; strongly rec home BP monitoring 2-3x/week; f/u in 4 wks with BMP * Betsy Smith MD - 12/12/2024 12:45 PM EDT Chief Complaint Patient presents with Diabetes Hypertension Mild Cognitive Impairment History of Present Illness 89 y.o. female, accompanied by her son (who has had double lung transplant and heart surgery), presents for f/u on DM, BP, kidney function and low Na. Also reports 2 recent falls and 4 total falls since last visit. Had fall on 09/11/24 due to imbalance. Hit her face, broke her nose, and skinned up her R index finger. Notes ER approximated the skin onher R index finger and the area has healed with slight ridge of skin; no pain. Saw [facility], who recommended no intervention for broken nose. Patient is not having difficulty breathing. Had copious nose bleeding at time of injury; now resolved. Had hit head on metal table. They gave her a Tdap in theER. Then had a fall on Sunday, 2 days ago. Had gotten up to open the blinds, lost balance, and then fell forward. Face hit the rough carpet. Called out to granddaughter, who did not hear her. Did not have her cell phone with her. Was able to crawl to bed and pull herself up. Son is concerned that granddaughter's new puppy is running between her legs and causing her to trip. The dogs causes fall risk. Reports rash on left upper arm, previously thought to be bug bites, is persistent. Notes improvement with previous steroid cream, but she admits to scratching the area and then the pinpoint scabs recur. On a further back fall, sustained L wrist fx. Review of Systems Denies CP, SOB, abd pain. ROS (+) for scab on bridge of nose from fall on carpet 2d ago. ROS (+) for frequent falls, attributed to balance issues. Denies LOC or lightheadedness. All other ROS reviewed and negative. Current Outpatient Medications: acetaminophen (TYLENOL) 500 MGprn alendronate 70 MG weekly Ca Phosphate-Cholecalciferol QD cholecalciferol (VITAMIN D3) 1000 units QD clobetasol propionate (TEMOVATE) 0.05 % cream AD esomeprazole 20 MG QD ezetimibe 10 MG QD FIBER COMPLETE QD Ketotifen Fumarate (ZADITOR) 0.035 % prn ICAPS AREDS 2 QD oxybutynin XL 10 MG QD VITALS: BP 142/70 Pulse 78 Ht 160.7 cm (63.25 ) Wt 67.6 kg (149 lb) SpO2 99% BMI 26.19 kg/m?? Repeat BP worsened 156/66 left arm Physical Exam Vitals and nursing note reviewed. Constitutional: General: She is not in acute distress. Appearance: Normal appearance. She is not ill-appearing. HENT: Head: Comments: Cluster of scab at bridge of nose, no erythema, bleeding, swelling, drainage, or tenderness Eyes: Extraocular Movements: Extraocular movements intact. Conjunctiva/sclera: Conjunctivae normal. Cardiovascular: Rate and Rhythm: Normal rate and regular rhythm. Pulmonary: Effort: Pulmonary effort is normal. No respiratory distress. Breath sounds: No wheezing or rales. Skin: Findings: Rash (area of pinpoint scabbed excoriations L medial upper arm, pruritic, no swelling, erythema, bleeding, or drainage) present. Neurological: Mental Status: She is alert and oriented to person, place, and time. Mental status is at baseline. Psychiatric: Mood and Affect: Mood normal. Behavior: Behavior normal. LABS Results for orders placed or performed in visit on 09/08/24 POC Glycosylated Hemoglobin (Hb A1C) Collection Time: 09/08/24 3:47 PM Specimen: Blood Result Value Ref Range Hemoglobin A1C 6.2 (A) 4.5 - 5.7 % Lot Number [id number] Expiration Date 05/23/2026 12/03/24 A1C 5.7, BMP with Na 129, Cr 1.1, GFR 47 09/06/24 Na 133 05/15/24 A1C 6.4 ASSESSMENT/PLAN Diagnoses and all orders for this visit: 1. Type 2 diabetes mellitus with stage 3a chronic kidney disease, without long- term current use of insulin (Primary) Assessment & Plan: BG control improved with A1C 5.7; no meds; encouraged reg phys activity to decr insulin resistance,moderation in unhealthy starches/sweets; f/u A1C in 6 mos 2. Stage 3a chronic kidney disease Assessment & Plan: Renal function unchanged with Cr 1.1, GFR 47; BP and BG control are stable; avoid NSAIDs; cont to encourage incr'd daily water intake 3. Hyponatremia Assessment & Plan: Na remains low at 129; rec limiting fluids to 1.5L/day and try to include 1/2 water and 1/2 liquid IV; repeat BMP in 2 weeks for serial examination Orders: - Basic Metabolic Panel; Future 4. Mild cognitive impairment Assessment & Plan: Stable MMSE 28/30; cont to encourage social activities and physical exercise as well as brain exercises with puzzles, reading, memorization, socialization, learning new activities/hobbies; also reviewed fall precautions; f/u in 6 mos with next wellness 5. Hypertension Assessment & Plan: BP mildly elevated, worsened on repeat; restart BP medication - RX irbesartan 75mg QD #30, 1RF; strongly rec home BP monitoring 2-3x/week; f/u in 4 wks with BMP Orders: - irbesartan (AVAPRO) 75 MG tablet; Take 1 tablet by mouth Daily. Dispense: 30 tablet; Refill: 1 6. Recurrent falls Assessment & Plan: Fall precautions reviewed; strongly advised to put up the dogs when doing housework; strongly advised patient to have an alert system or something that connects to her phone so she can get help if she falls and doesn't have her phone with her; PT order given for balance/gait and fall risk; patient will pursue at [facility] (son is going to rehab there 3x/wk after lung transplant/heart surgery) Orders: - Ambulatory Referral to Physical Therapy for Evaluation & Treatment 7. Excoriation Comments: L upper medial arm; strongly advised bandaid/dressing to help her stop scratching and allow healing; is still persists, advised derm eval for resistant eczema Time Documentation Counseled patient and son I spent 36 minutes face to face and 17 minutes non-face to face on today's office visit. Time was spent reviewing patient's previous notes, lab results, test results, vitals, and/or other records as well as examining the patient, ordering tests/medicines/procedures, providing counseling, coordinating care, answering questions, discussing evaluation and treatment plans, and writing this note. Total time: 53 minutes (Level 5 40 minutes) FOLLOW-UP Health maintenance - rec flu and COVID vacc in the fall Repeat BMP in 2 weeks (escribed and given to pt) RTC 4 wks for BP f/u after addition of irbesartan 75mg QD; will also need BMP for drug monitoring Electronically signed by: Betsy Smith MD, FACP 12/12/2024 * Betsy Smith MD - 12/11/2024 10:34 PM EDTAssociated Problem(s): Type 2 diabetes mellitus with stage 3b chronic kidney disease, without long-term current use of insulin BG control improved with A1C 5.7; no meds; encouraged reg phys activity to decr insulin resistance,moderation in unhealthy starches/sweets; f/u A1C in 6 mos * Betsy Smith MD - 12/11/2024 10:30 PM EDTAssociated Problem(s): Hyponatremia Na remains low at 129; rec limiting fluids to 1.5L/day and try to include 1/2 water and 1/2 liquid IV; repeat BMP in 2 weeks for serial examination * Betsy Smith MD - 12/11/2024 10:29 PM EDTAssociated Problem(s): CKD (chronic kidney disease), stage III Renal function unchanged with Cr 1.1, GFR 47; BP and BG control are stable; avoid NSAIDs; cont to encourage incr'd daily water intake * Betsy Smith MD - 12/11/2024 10:28 PM EDTAssociated Problem(s): Mild cognitive impairment Stable MMSE 28/30; cont to encourage social activities and physical exercise as well as brain exercises with puzzles, reading, memorization, socialization, learning new activities/hobbies; also reviewed fall precautions; f/u in 6 mos with next wellness documented in this encounter Plan of Treatment Upcoming Encounters Date Type Department Care Team (Late st Contact Info) Description 02/13/2025 1:45 PM EDT Office Visit [facility] [address] [place] [phone] Betsy Smith MD [address] [place] [phone] 06/26/2025 3:00 PM EST Office Visit [facility] [address] [place] [phone] Betsy Smith MD [address] [place] [phone] Scheduled Orders Name Type Priority Associated Diagnoses Orde r Schedule Basic Metabolic Panel Lab Routine Hyponatremia Expected: 02/14/2025 (Approximate) documented as of this encounter Visit Diagnoses Diagnosis Type 2 diabetes mellitus with stage 3a chronic kidney disease, without long-term current use of insulin- Primary Stage 3a chronic kidney disease Hyponatremia Hyposmolality and/or hyponatremia Mild cognitive impairment Mild cognitive impairment, so stated Hypertension Unspecified essential hypertension Recurrent falls Excoriation Other and unspecified superficial injury of other, multiple, and unspecified sites, without mention of infection documented in this encounter Additional Health Concerns Assessment Noted Time PHQ-2 Depression Total Score: 2 08/31/19 24 12:00 PM EDT documented as of this encounter Care Teams Fixture Fabricator Repairer Relationship Specialty [place] [address] [place] [address] PCP - General 02/08/15 documented as of this encounter
--- OUTSIDE RECORDS SUMMARY | 2025-02-09 12:10 | XMS_ITS | Encounter Summary ---
Author Organization Healthcare Address [address] [place] [address] Care Team Providers Care Oil And Gas Exploration Technician Name Role Phone Betsy Smith MD Primary Care Provider [phone] Encounter Details Date Type Department Care Team (Late Contact Info) Description 03/08/2023 Orders Only External Location [address] [place] [address] Amado Pope MD [address] [place] [phone] Social History Tobacco Use Types Packs/Day Years [...] [facility] [address] [facility], [address] [place] [address] Griffin Bustillos MD [address] [facility] [address] [place] [address] documented as of this encounter [...] on filedocumented in this encounter Care Teams Oil And Gas Exploration Technician Relationship Specialty Start Date End Date Betsy Smith MD [address] [facility] [address] [place] [address] PCP - General 06/13/23 documented as of this encounter
--- OUTSIDE RECORDS SUMMARY | 2025-02-09 12:10 | XMS_ITS ---
Author Organization Unknown Medications Date Medication Dosage DosageUnit StartDate StopDate StopReason Active DoseQuantity DoseUnit Dispense DispenseUnit Refills NdcCode DrugCode PharmacyId IsPrescription MappedMedication Srcstatus Custom 09/25 00:00 :00 Alendronate Sodium 70 MG Tablet 1 4 [id number] 69 712 Taking 09/18 00:00 :00 Alendronate Sodium 70 MG Tablet 1 4 [id number] 69 712 Taking 09/25 00:00 :00 amLODIPine Besy-Benaze pril HCl 5-40 MG Capsule 0 5 [id number] 400 Not Taking 09/18 00:00 :00 amLODIPine Besy-Benaze pril HCl 5-40 MG Capsule 0 5 4264115 400 Not Taking 09/25 00:00 :00 Atorvastati n Calcium 20 MG Tablet 0 30 000 49497 910 Not Taking 09/18 00:00 :00 Atorvastati n Calcium 20 MG Tablet 0 30 000 49872 910 Not Taking 09/25 00:00 :00 Azelastine HCl 0.05 % Solution 08/09/2023 00:00:00 1 1 0 [id number] 3 890 P Taking 09/18 00:00 :00 Azelastine HCl 0.05 % Solution 08/09/2023 00:00:00 1 1 0 [id number] 3 890 P Taking 09/25 00:00 :00 Calcium Carbonate 600 MG TABLET, CHEWABLE 1 Taking 09/18 00:00 :00 Calcium Carbonate 600 MG TABLET, CHEWABLE 1 Taking 09/25 00:00 :00 Cephalexin 500 MG Capsule 1 0009 3314 701 P New 09/25 00:00 :00 Cephalexin 500 MG Capsule 09/18/2024 00:00:00 1 14 Capsule 0 [id number] 701 P Taking 09/18 00:00 :00 Cephalexin 500 MG Capsule 09/18/2024 00:00:00 1 14 Capsule 0 [id number] 701 P Start 09/25 00:00 :00 Cyclobenzap rine HCl 5 MG Tablet 0 0009 3342 001 P Not Taking 09/18 00:00 :00 Cyclobenzap rine HCl 5 MG Tablet 0 0009 3342 001 P Not Taking 09/25 00:00 :00 Doxycycline Hyclate 100 MG Capsule 08/03/2022 00:00:00 0 14 6124110 1 605 P Not Taking 09/18 00:00 :00 Doxycycline Hyclate 100 MG Capsule 08/03/2022 00:00:00 0 14 [id number] 1 605 P Not Taking 09/25 00:00 :00 Eye Vitamins - Capsule 1 007 78348 807 Taking 09/18 00:00 :00 Eye Vitamins - Capsule 1 007 32667 807 Taking 09/25 00:00 :00 Gabapentin 100 MG Capsule 0 90 0 0090 4666 561 P Not Taking 09/18 00:00 :00 Gabapentin 100 MG Capsule 0 90 0 0090 4666 561 P Not Taking 09/25 00:00 :00 Irbesartan 300 MG Tablet 1 30 31445 094 290 Taking 09/18 00:00 :00 Irbesartan 300 MG Tablet 1 30 70019 094 290 Taking 09/25 00:00 :00 Linzess 72 MCG Capsule 0 [id number] 0 330 P Not Taking 09/18 00:00 :00 Linzess 72 MCG Capsule 0 1653709 0 330 P Not Taking 09/25 00:00 :00 Meloxicam 15 MG Tablet 0 0884902 7 701 P Not Taking 09/18 00:00 :00 Meloxicam 15 MG Tablet 0 8398095 7 701 P Not Taking 09/25 00:00 :00 metFORMIN HCl ER 750 MG Tablet Extended Release 24 Hour 1 [id number] 401 Taking 09/18 00:00 :00 metFORMIN HCl ER 750 MG Tablet Extended Release 24 Hour 1 [id number] 401 Taking 09/25 00:00 :00 Moxifloxaci n HCl 0.5 % Solution 08/09/2023 00:00:00 1 1 0 0624437 5 801 P Taking 09/18 00:00 :00 Moxifloxaci n HCl 0.5 % Solution 08/09/2023 00:00:00 1 1 0 5702055 5 801 P Taking 09/25 00:00 :00 Mupirocin 2 % Ointment 08/09/2023 00:00:00 1 1 0 [id number] 1 042 P Taking 09/18 00:00 :00 Mupirocin 2 % Ointment 08/09/2023 00:00:00 1 1 0 [id number] 1 042 P Taking 09/25 00:00 :00 Omeprazole 20 MG Capsule Delayed Release 1 30 [id number] 801 Taking 09/18 00:00 :00 Omeprazole 20 MG Capsule Delayed Release 1 30 [id number] 801 Taking 09/25 00:00 :00 Pioglitazon e HCl 15 MG Tablet 0 0204900 7 105 Unknown Status 09/18 00:00 :00 Pioglitazon e HCl 15 MG Tablet 0 [id number] 7 105 Unknown Status 09/25 00:00 :00 RANITIDINE HYDROCHLORI DE 300 MG TABLET 09/20/2018 00:00:00 0 90 1 P Not Jaime kristine 09/18 00:00 :00 RANITIDINE HYDROCHLORI DE 300 MG TABLET 09/20/2018 00:00:00 0 90 1 P Not [facility] 09/25 00:00 :00 Shingrix 50 MCG/0.5 ML Suspension Reconstitut ed 09/20/2018 00:00:00 0 [id number] 7 200 P Not Taking 09/18 00:00 :00 Shingrix 50 MCG/0.5 ML Suspension Reconstitut ed 09/20/2018 00:00:00 0 [id number] 7 200 P Not Taking 09/25 00:00 :00 traMADol HCl 50 MG Tablet 03/13/2023 00:00:00 0 21 [id number] 0 101 P Not Taking 09/18 00:00 :00 traMADol HCl 50 MG Tablet 03/13/2023 00:00:00 0 21 [id number] 0 101 P Not Taking 09/25 00:00 :00 Vitamin B-12 1000 MCG Tablet 0 30 [id number] 601 Not Taking 09/18 00:00 :00 Vitamin B-12 1000 MCG Tablet 0 30 [id number] 601 Not Taking 09/25 00:00 :00 Vitamin D3 25 MCG (1000 UT) Tablet 0 63519076 840 Not Taking 09/18 00:00 :00 Vitamin D3 25 MCG (1000 UT) Tablet 0 [id number] 840 Not Taking 09/25 00:00 :00 Zetia 10 MG Tablet 1 [id number] 615 Taking 09/18 00:00 :00 Zetia 10 MG Tablet 1 [id number] 615 Taking
--- OUTSIDE RECORDS SUMMARY | 2025-02-09 12:10 | XMS_ITS | Encounter Summary ---
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 Not on le documented as of this encounter Plan of Treatment Upcoming Encounters Date Type Department Care Team (Late st Contact Info) Description 02/13/2025 1:45 PM EDT Office Visit [facility] [address] [place] [phone] Betsy Smith MD [address] [place] [address] 06/26/2025 3:00 PM EST Office Visit [facility] [address] [place] [address] [place] [address] [place] [address] [phone] documented as of this encounter Visit Diagnoses Not on filedocumented in this encounter Additional Health Concerns Assessment Noted Time PHQ-2 Depression Total Score: 2 08/31/19 24 12:00 PM EDT documented as of this encounter Care Teams Land Economist Relationship Specialty [place] [address] [place] [phone] PCP - General 02/08/15 documented as of this encounter
--- OUTSIDE RECORDS SUMMARY | 2025-02-09 12:10 | XMS_ITS | Clinical Summary ---
Author Organization [facility] Address [address] [place] [address] Care Team Providers Care Manager Balance Name Role Phone Betsy Smith MD Primary Care Provider [phone] Allergies No known active allergies Medications metFORMIN [...] 6 (six) hours. 09/25/2023 Active HYDROcodone-acet aminophen ([place]) 5-325 MG tablet Take 1 tablet (5 mg of hydrocodone) by mouth every 6 (six) hours if needed for severe pain. 09/25/2023 Active Melatonin [address] 3 mg under the tongue 1 (one) time each day. 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 or to get [...] Joint [address], [address] [place] [address] Griffin Bustillos MD [address] [facility] [address] [place] [address] Health Maintenance Due Date Last Done Comments Dental Oral Exam 1935 Dental Prophylaxis 1935 Dental X-Ray: Bitewings 1937 Dental X-Ray: Full Mouth 1937 [facility]-Depression Screening 1937 [facility]-/Child/Adol SDOH Screenings 1937 [facility]- SDOH Screenings 1955 [facility]-Adult SDOH Screenings 1955 [facility]-Zoster Vaccines (2 of 3) 11/19/2008 09/24/2008 [facility]-Bone Density Scan 11/17/2023 11/16/2022 [id number] Vaccine ( season) 2025 01/18/2024, 06/28/2023, 09/22/2022, Additional history exists [facility]-Influenza Vaccine (#1) 01/05/202501/17, 03/15/2023, 04/05/2022, Additional history exists [facility]-Medicare Annual Wellness (AWV) 06/09/2025 06/09/2024, 06/05/2023, 03/24/2022, Additional history exists [facility]-Diabetes: Hemoglobin A1C 09/08/2025 09/08/2024, 05/15/2024, 03/28/2024, Additional history exists [facility]-DTaP,Tdap,and Td Vaccines (3 [...] this topic Medical Devices Implanted Type Area Tape Fastener Machine Operator Device Identifier Shelf Expiration Date Model / Serial / Lot g Cable D-M 2.0mm Beaded Set - [id number] Implanted:Qty: 1 on 09/19/2023 by Griffin Bustillos MD at [facility] Cable Left: Hip [employer] ([facility][id number] [id number] 12/18/2027 [id number] / / [id number] Shell Trident Ii Cluster 52mm - [id number] Implanted:Qty: 1 on 09/19/2023 by Griffin Bustillos MD at [facility] Hip Left: Hip [employer] ([facility]1391 68 08/21/2028 [id number] / / [id number] Hip Size 6 Accolade Ii 127 Deg - [id number] Implanted:Qty: 1 on 09/19/2023 by Griffin Bustillos MD at [facility] Hip Left: Hip [employer] ([facility]1391 68 04/04/2027 [id number] / / [id number] Chg Head Delta V-40 Ceramic 36 - [id number] Implanted:Qty: 1 on 09/19/2023 by Griffin Bustillos MD at [facility] Hip Left: Hip [employer] ([facility][id number] 68 03/26/2028 [id number] / / [id number] Liner Trident X3 10deg 36 Mm Id 5.9 Mm - [id number] Implanted:Qty: 1 on 09/19/2023 by Griffin Bustillos MD at [facility] Liner Left: Hip [employer] ([employer])-[id number] 68 06/30/2028 [id number] / / [id number] Screw 6.5mm Trident Low Profile Hex 25mm - [id number] Implanted:Qty: 1 on 09/19/2023 by Griffin Bustillos MD at [facility] Screw Left: Hip [employer] [facility]1391 68 07/11/2028 [id number] / / HN Procedures Procedure Name Priority Date/Time Associated Diagnosis Comments HEMOGLOBIN A1C Routine 09/04/2023 11:59 AM EDT Hip pain, left Primary localized osteoarthritis of left hip Type 2 diabetes mellitus without complication, unspecified whether 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 Standards of medical care in diabetes,2017. Diabetes Care.2017:40 (suppl 1):S1-S135. HbA1c assay performed by an ion-exchange chromatography method that is certified traceable to the DCCT. Griffin Bustillos MD LAB BLOOD ORDERABLES Marielle solitario Result [facility] [address] [place] [phone] from Last 3 Months or Most Recently Relevant to Health Maintenance [place] [address] ANTH Advance Directives * Full Code (Latest Code Status on File) Date Activated Date Inactivated Comments 09/19/2023 9:05 AM 09/25/2023 5:08 PM Question Answer Comments Patient has decision-making capacity? Yes Care Teams Manager Balance Relationship Specialty Start Date End Date Betsy Smith MD [address] [facility] [address] [place] [address] PCP - General 06/13/23
--- OUTSIDE RECORDS SUMMARY | 2025-02-09 12:10 | XMS_ITS | Encounter Summary ---
Author Organization Healthcare Address [address] [place] [address] Care Team Providers Care Pattern Attendant Name Role Phone eBtsy Smith MD Primary Care Provider Encounter Details Date Type Department Care Team (Late Contact Info) Description 02/15/2023 Orders Only External Location [address] [place] [address] Elen Mckenna PA [address] [facility] [address] [facility] [address] [place] [address] Social History Tobacco Use Types Packs/Day Years [...] [facility] [address] [facility], [address] [place] [address] Griffin Bustillos MD [address] [facility] [address] [place] [address] documented as of this encounter [...] on filedocumented in this encounter Care Teams Pattern Attendant Relationship Specialty Start Date End Date Betsy Smith MD [address] [facility] [address] [place] [address] PCP - General 06/13/23 documented as of this encounter
--- OUTSIDE RECORDS SUMMARY | 2025-02-09 12:10 | XMS_ITS | Encounter Summary ---
Author Organization [facility] Address [address] [place] [address] Care Team Providers Care Paper Finisher Name Role Phone Betsy Smith MD Primary Care Provider [phone] Encounter Details Date Type Department Care Team (Late st Contact Info) Description 05/25/2023 Orders Only External Location [address] [place] [id number] Provider, External Social History Tobacco Use Types [...] Joint [address] [place] [address] Griffin Bustillos MD [address] [place] [address] documented as of this encounter [...] on filedocumented in this encounter Care Teams Paper Finisher Relationship Specialty Start Date End Date Betsy Smith MD [address] [place] [address] [address] [place] [address] PCP - General 06/13/23 documented as of this encounter
--- OUTSIDE RECORDS SUMMARY | 2025-02-09 12:10 | XMS_ITS | Encounter Summary ---
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 - [employer] Social History Tobacco Use [...] Department Care Team (Late Contact Info) Description 02/13/2025 1:45 PM EDT Office Visit [facility] [address] [place] [phone] Betsy Smith MD [address] [place] [address] [phone] 06/26/2025 3:00 PM EST Office Visit [facility] [address] [place] [phone] Betsy Smith MD [address] [place] [address] documented as of this encounter Visit Diagnoses Not on filedocumented in this encounter Care Teams Technology Coach Relationship Specialty Start Date End Date Betsy Smith MD [address] [place] [address] PCP - General 02/08/15 documented as of this encounter
--- OUTSIDE RECORDS SUMMARY | 2025-02-09 12:10 | XMS_ITS | Encounter Summary ---
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 PATIENT IS REQUESTING A 3 MONTH EXTENSION. THERE ARE 3 PAGES AND THEY HAVE BEEN PLACED IN THE PCP'S FOLDER. CALEB IS REQUESTING THIS BEFORE IT EXPIRES ON Jan. DID ADVISE CALEB OF THE 30 DAY POLICY AND HE VERBALIZED UNDERSTANDING. CALEB [phone] PATIENT IS REQUESTING THAT WE FAX THE PAPERWORK, ONCE COMPLETED, TO [phone] documented in this encounter Plan of Treatment Upcoming Encounters Date Type Department Care Team (Late st Contact Info) Description 02/13/2025 1:45 PM EDT Office Visit [facility] INTER[facility] [address] [place] [phone] Betsy Smith MD [address] [place] [address] [phone] 06/26/2025 3:00 PM EST Office Visit [facility] [address] [place] [phone] Betsy Smith MD [address] [place] [address] [phone] documented as of this encounter Visit Diagnoses Not on filedocumented in this encounter Additional Health Concerns Assessment Noted Time PHQ-2 Depression Total Score: 2 08/31/19 24 12:00 PM EDT documented as of this encounter Care Teams Field Handyman Relationship Specialty Start Date End Date Betsy Smith MD [address] [place] [address] [phone] PCP - General 02/08/15 documented as of this encounter
--- OUTSIDE RECORDS SUMMARY | 2025-02-09 12:10 | XMS_ITS | Clinical Summary ---
[facility] Organization [facility] Address [address] [place] [address] Care Team Providers Care Form Grader Name Role Phone Betsy Smith MD Primary Care Provider [phone] Allergies Active Allergy Reactions Criticality Noted Date [...] (One) Time Per Week. 13 tablet 3 025 Active FIBER COMPLETE PO Take by mouth Daily. Fiber gummies Active clobetasol propionate (TEMOVATE) 0.05 % creamIndications:Rash Apply to affected areas in thin layer BID 30 g Active oxybutynin XL (DITROPAN-XL) 10 MG 24 hr tabletIndications:Urina ry Incontinence Take 1 tablet by mouth Daily. Indications: Urinary Incontinence 90 tablet 2 025 Active irbesartan (AVAPRO) 75 MG tabletIndications:Essen tial hypertension Take 1 tablet by mouth Daily. 30 tablet 1 025 Active Active Problems Problem Noted Date Diagnosed Date Closed fracture of nasal bone with routine heali ng 12/24/2024 Overview (12/24/2024): 09/11/24 CT head ([facility]): s/p fall; depressed fx of L nasal bones/frontal maxilla, no hemorrhage Recurrent falls 12/12/2024 Overview (01/15/2025): 01/09/25 see PT from [facility] for recurrent falls Assessment & Plan (12/12/2024 9:43 PM EDT): Fall precautions reviewed; strongly advised to put up the dogs when doing housework; strongly advised patient to have an alert system or something that connects to her phone so she can get help if she falls and doesn't have her phone with her; PT order given for balance/gait and fall risk; patient will pursue at [facility] (son is going to rehab there 3x/wk after lung transplant/heart surgery) Allergic conjunctivitis of both eyes 06/09/2024 Overview (06/09/2024): Better with Zaditor Assessment & Plan (06/09/2024 4:29 PM EST): Success with zaditor eye drops Normocytic anemia 09/05/2023 Overview (10/08/2023): 10/05/23 [facility] discharge s/p L THR - s/p 2u pRBCs at ; 09/24/23 discharge H&H 7.8/23.7; 09/19 and 09/21/23 s/p 2u pRBCs s/p L. KUSH; 09/04/23 worsened H&H 10.6/32.9, MCV 81 Assessment & Plan (11/12/2023 10:39 PM EDT): Stable CBC Assessment & Plan (10/18/2023 9:46 PM EDT): Acute on chronic anemia, s/p transfusion 2u pRBCs during hospitalization; f/u CBC today Mild cognitive impairment 08/31/2023 Overview (12/12/2024): 12/12/24 MMSE 28/30; 06/09/24 MMSE 28/30; 02/21/24 MMSE 28/30; 08/31/23 MMSE 27/30 Assessment & Plan (12/12/2024 9:43 PM EDT): Stable MMSE 28/30; cont to encourage social activities and physical exercise as well as brain exercises with puzzles, reading, memorization, socialization, learning new activities/hobbies; also reviewed fall precautions; f/u in 6 mos with next wellness Assessment & Plan (09/07/2024 1:15 AM EDT): [...] 06/27/2023 Overview (03/28/2024): 02/26/24 ortho/Dr. Bustillos - stable 6 mos postop; f/u 1 yr; 09/19/23 ortho/Dr. Bustillos; s/p L. KUSH; rec ASA 81mg BID x 4 wks for DVT prevention; 07/13/23 see std wheelchair order from [employer] Assessment & Plan (06/27/2023 10:33 PM [...] 03/15/2023 Overview (03/28/2024): 02/26/24 ortho/Dr. Bustillos - stable 6 mos postop; f/u 1 yr; 09/19/23 ortho/Dr. Bustillos - s/p L. KUSH; rec ASA 81mg BID x 4 wks for DVT prevention; 06/16/23 CT pelvis ([facility]) - severe L femoroacetabular DJD with osteophytes, [...] - check MRI left hip; 03/16/23 see [facility] PT order dated 03/16/23; 03/08/23 CT left [...] swelling, 20 minutes 3x/day; has PT 2x/week ([facility]) but advised patient should be doing HEP [...] BID-TID prn as needed Hyponatremia 06/20/2017 Overview (12/24/2024): 12/03/24 worsened Na 129 (was 133 pm 09/06/24); 09/11/24 Na 126 ([facility], s/p fall); 07/10/24 persistent Na 126; cont 1.5L/day, liberalize Na, repeat BMP 1 wk; 06/30/24 Na 128; 06/16/24 recurrent Na 125; sugg of SIADH (s-osm 266, u-osm 406); 04/09/24 improved Na 135; 01/18/24 improved/nl Na 138; 10/05/23 [facility] discharge s/p L THR; improved on 1.5L fluid restriction; 09/25/23 [facility] persistent postop, improved to 126; cont 1.5L fluid restriction; 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, severe to [...] kidney disease), stage III 02/29/20 16 Overview (12/08/2024): 12/03/24 unchanged Cr 1.1, GFR 47; 05/15/24 worsened Cr 1.2 2, GFR 43; [...] - stable renal function; Assessment & Plan (12/11/2024 10:29 PM EDT): Renal function unchanged with Cr 1.1, GFR 47; BP and BG control are stable; avoid NSAIDs; cont to encourage incr'd daily water intake Assessment & Plan (09/08/2024 8:58 PM EDT): [...] order given to patient to get at [facility] Assessment & Plan (03/28/2024 12:53 PM EST): [...] Tdap 05/27 (next Td due 2030), Zostavax 5/09, Shingrix and HAV done; no further mammos, [...] 09/12; mammo to be updated (08/27/15) at [facility]; no further Paps unelss abnlities; [...] 09/12; mammogram 2015 - will request from [facility]; no further Paps unless abnlities; DEXA ordered [...] D/C meds - amlo/atorvastatin 5/40 QD (hosp); 1/31/24 stable lipids TC 163, TG 47, HDL [...] omeprazole 40mg QD with improved efficacy 10/05/23 [facility] discharge s/p L THR; on pantoprazole 40mg [...] long-term current use of insulin 02/18/2016 Overview (12/08/2024): 12/03/24 A1C 5.7; 09/08/24 A1C 6.2; 05/15/24 A1C 6.4; 03/26/24 [facility]/Dr. Dunia abdi DMR, dry mac degen OU; 11/12/23 A1C 5.5, d/c met ER 500mg QD; 10/18/23 only on met ER 500mg QD; 10/05/23 [facility] discharge s/p L THR - on met ER 500mg QD; 09.04.23 A1C 6.0; 06/28/23 A1C 6.3; 06/17/23 D/C meds - on amita/met ER QD (prev amita 30mg QD and met XR 500mg 2 QD; 06/16/23 A1C 6.0 ([facility]); 06/06/23 A1C 5.9; 06/05/23 A1C 6.4; 03/21/23 yong/Dr. Dunia NOLAN, dry mac degen OU; 03/08/22 yong/Dr. Dunia NOLAN, has dry mac degen OU; 03/14/21 stable A1C 6.0; 03/02/21 Luisa abdi DM retinopathy; 09/09/20 A1C 6.0; 04/14/20 A1C 6.2; 03/25/20 A1C 6.05; 03/05/20 stable A1C 6.2, on amita 30mg QD met XR 750mg 2 QD; 07/16/19 Luisa Duque - [place] DM retinopathy; 06/27/19 improved A1C 6.0; 03/05/19 stable bord A1C 6.3 (was 5. In 09/22, 5.7 in 01/22); on amita met 15/850 BID; 11/15/16 yong/Dr. Dunia abdi DM retinopathy Assessment & Plan (12/11/2024 10:34 PM EDT): BG control improved with A1C 5.7; no meds; encouraged reg phys activity to decr insulin resistance, moderation in unhealthy starches/sweets; f/u A1C in 6 mos Assessment & Plan (09/08/2024 9:00 PM EDT): [...] updated DM eye exam upcoming at [facility] - will do this summer - request [...] of right eustachian tube 02/18/2016 Overview (02/29/2016): quirino maher NS #3, 1RF, reviewed how to use correctly Assessment & Plan (03/10/2019 2:13 PM EST): Agree with having hearing evaluated Hypertension 02/18/2016 Overview (11/12/2023): 11/12/23 BP machine verified; no meds; 10/18/23 BP 132/68; no BP meds; 10/05/23 [facility] discharge s/p L THR - irbesartan still [...] 3RF; low Na diet; Assessment & Plan (12/12/2024 9:44 PM EDT): BP mildly elevated, worsened on repeat; restart BP medication - RX irbesartan 75mg QD #30, 1RF; strongly rec home BP monitoring 2-3x/week; f/u in 4 wks with BMP Assessment & Plan (09/08/2024 8:57 PM EDT): [...] Encounters Date Type Department Care Team Description 01/01/2025 Telephone [facility] [address] [place] [phone] Betsy Smith MD 12/12/2024 12:45 PM EDT Office Visit [facility] [address] [place] [phone] Betsy Smith MD Type 2 diabetes mellitus with stage 3a chronic kidney disease, without long-term current use of insulin (Primary Dx); Stage 3a chronic kidney disease; Hyponatremia; Mild cognitive impairment; Hypertension; Recurrent falls; Excoriation 12/12/2024 Travel from Last 3 Months Immunizations Immunization Administration Dates Next Due Arexvy (RSV, Adults 60+ yrs) 07/02/2023 COVID-19 (MODERNA) 1st,2nd,3 rd Dose Monovalent 12/07/2021,02/16/2021,08/04/2020,07/07 COVID-19 (PFIZER) 12YRS+ (COMIRNATY) 01/18/2024, 06/28/2023 COVID-19 (PFIZER) BIVALENT 12+YRS 09/22/2022 FluMist 2-49yrs 02/12/2015,02/09/2014,02/24/2013 Fluad Quad 65+ 03/12/2020 Fluzone (or Fluarix & Flulav al for VFC) >6mos 05/19/2021 Fluzone High-Dose 65+YRS 01/18/2024,11/0 08/2018,02/01/2018,03/06,02/29/2016 Fluzone High-Dose 65+yrs 03/15/2023,04/05/2022 Hepatitis A 08/16/2018,02/11/2018 Influenza, Unspecified 05/19/2021 Pneumococcal Conjugate 13-Va lent (PCV13) 02/12/2015 Pneumococcal Polysaccharide (PPSV23) 03/30/2010 Shingrix 09/20/2018,02/11/2018 Tdap 09/11/2024,05/26/2020,05/26/2020 Zostavax 09/24/2008 Family History Medical History Relation [...] 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 Not on file Not on fi le Last Filed Vital Signs Vital Sign Reading Time Taken Comments Blood Pressure 142/70 12/12/2024 12:41 PM EDT Pulse 78 12/12/2024 12:41 PM EDT Temperature 36.7 C (98.1 F) 11/12/2023 2:03 PM EDT Respiratory Rate 16 02/21/2024 9:31 AM EDT Oxygen Saturation 99% 12/12/2024 12:41 PM EDT Inhaled Oxygen Concentration - - Weight 67.6 kg (149 lb) 12/12/2024 12:41 PM EDT Height 160.7 cm (5' 3.25 ) 12/12/2024 12:41 PM E DT Body Mass Index 26.19 12/12/2024 12:41 PM EDT Plan of Treatment Upcoming Encounters Date Type Department Care Team (Late st Contact Info) Description 02/13/2025 1:45 PM EDT Office Visit [facility] [address] [place] [phone] Betsy Smith MD [address] [place] [address] 06/26/2025 3:00 PM EST Office Visit [facility] [address] [place] [phone] Betsy Smith MD [address] [place] [address] Health Maintenance Due Date Last Done Comments COLON CANCER SCREENING 5 YEA R SIGMOIDOSCOPY 1982 [address] COLONOGRAPHY 1982 FECAL OCCULT BLOOD TEST 1982 FIT Testing (1 year) 1982 COLONOSCOPY 09/04/2017 09/05/2007 DIABETIC FOOT EXAM 03/06/2018 03/06/2017, 03/06/2017 COLOGUARD 03/25/2021 03/25/2018, 03/07, 03/25/2018 MOST FORM 03/22/2022 03/22/2021 INFLUENZA VACCINE 12/05/2024 01/18/2024, , 04/05/2022, Additional history exists DIABETIC EYE EXAM 03/26/2025 03/26/2024, , 03/26/2024, Additional history exists LIPID PANEL 05/15/2025 05/15/2024, 06/08, 06/06/2023, Additional history exists URINE MICROALBUMIN-CREATININ E RATIO (uACR) 05/15/2025 05/15/2024, 06/29/2023, 06/06/2023, Additional history exists HEMOGLOBIN A1C 06/05/2025 12/03/2024, 05/0 09/2024, 05/15/2024, Additional history exists ANNUAL WELLNESS VISIT 06/09/2025 06/09/2024 , 06/05/2023, 03/24/2022, Additional history exists DXA SCAN 11/16/2025 11/16/2022, 06/08, 03/09/2016, Additional history exists TDAP/TD VACCINES (4 - Td or Tdap) 09/11/2034 09/11/2024, 05/26/2020, 05/26/2020 Pneumococcal Vaccine 50+ Completed 02/12/2015, 03/08 ZOSTER VACCINE Completed 09/20/2018, 1012/2017, 09/24/2008 RSV Vaccine - Adults Completed 07/02/2023 COVID-19 Vaccine Discontinued 01/18/2024, , 09/22/2022, Additional history exists COLORECTAL CANCER SCREENING Discontinued Procedures Procedure Name Priority Date/Time Associated Diagnosis Comments SCANNED COGNITIVE ASSESSMENT 12/12/2024 SCANNED - LABS 12/03/2024 POCT GLYCOSYLATED HEMOGLOBIN (HGB A1C) Routine 09/08/2024 3:47 PM EDT Type 2 diabetes mellitus with stage 3b chronic kidney disease, without long-term current use of insulin MICROALBUMIN / CREATININE URINE RATIO Routine 05/15/2024 10:34 AM EST Medicare annual wellness visit, subsequent LIPID PANEL Routine 05/15/2024 10:34 AM EST Hyperlipidemia SCANNED - EYE EXAM 03/26/2024 DEXA BONE DENSITY AXIAL Routine 11/16/2022 9:33 AM EDT Menopause Osteoporosis SCANNED - COLOGUARD 03/25/2018 HM COLONOSCOPY Routine 09/05/2007 from Last 3 Months or Most Recently Relevant to Health Maintenance Results * COGNITIVE ASSESSMENT SCAN (12/12/2024) us Betsy Smith MD NEUROLOGY ORDERABLES Final Resul t * LABS SCANNED (12/03/2024) us Betsy Smith MD LAB BLOOD ORDERABLES Final Resul t * (ABNORMAL) POC Glycosylated Hemoglobin (Hb A1C) (09/08/2024 3:47 PM EDT) Hemoglobin A1C 6.2(A) 4.5 - 5.7 % [facility] Lot Number [id number] [facility] Expiration Date 05/23/2026 [facility] Blood 09/08/2024 3:47 PM EDT Betsy Smith MD POINT OF CARE TEST ORDERABLES Fi nal Result [facility]
[address] [place] [address], * Microalbumin / Creatinine Urine Ratio - Urine, Clean Catch (05/15/2024 10:34 AM EST) Microalbumin/C reatinine Ratio 11.3 0.0 - 29.0 mg/g 05/15/2024 11:33 PM EST [facility] Creatinine, Urine 141.8 mg/dL 05/15/2024 11:33 PM EST [facility] Microalbumin, Urine 1.6 mg/dL 05/15/2024 11:33 PM EST [facility] Urine Urine specimen obtained by clean catch procedure / Unknown Collection / Unknown 05/15/2024 10:34 AM EST 05/15/2024 10:34 AM EST Betsy Smith MD URINE ORDERABLES Final Result [facility]
[address] [place] [address], * (ABNORMAL) Lipid Panel (05/15/2024 10:34 AM EST) Total Cholesterol 138 0 - 200 mg/dL 05/15/2024 2:51 PM EST [facility] Triglycerides 39 0 - 150 mg/dL 05/15/2024 2:51 PM EST [facility] HDL Cholesterol 64(H) 40 - 60 mg/dL 05/15/2024 2:51 PM EST [facility] LDL Cholesterol 64 0 - 100 mg/dL 05/15/2024 2:51 PM EST [facility] VLDL Cholesterol 10 5 - 40 mg/dL 05/15/2024 2:51 PM EST [facility] LDL/HDL Ratio 1.03 05/15/2024 2:51 PM EST [facility] Blood Venipuncture / Unknown 05/15/2024 10:34 AM EST 05/15/2024 10:34 AM EST Narrative [facility] - 05/15/2024 2:51 PM EST Cholesterol [...] High 160-189 mg/dL Very High >189 mg/dL us Betsy Smith MD LAB BLOOD ORDERABLES Final Resul t [facility]
[address] [place] [address], * EYE EXAM SCANNED (03/26/2024) Anatomical Region Laterality Modality Other us Betsy Smith MD CHART REVIEW TABS Final [...] fall-prevention measurements. The National Osteoporosis Foundation recommends (http://www.nof.org/hcp/practice/psmolaqn-xbr-ejbhovaf-guidelines/clinicians-hussein de) that FDA-approved medical therapies be considered [...] the left hip with 95% confidence is 0.851541 gm/cm2 at the hip and 0.891913 g/cm2 at the lumbar spine. Electronically Signed: Colt Leavitt 11/20/2022 2:54 PM EDT Workstation ID: [id number] Narrative 11/20/2022 2:54 PM EDT DUAL-ENERGY X-RAY [...] normal patients. According to criteria established by the[facility] Organization, patients with T-scores between 1.0 and [...] exercises and fall-prevention measurements. The NationalOsteoporosis Foundation recommends(http://www.nof.org/hcp/practice/dbkvnkqn-jea-zlqblqlz-guidelines/clin ician s-guide) that FDA-approved medical therapies be [...] at the left hipwith 95% confidence is 0.440016 gm/cm2 at the hip and 0.812825 g/cm2 atthe lumbar spine. Electronically Signed: Colt Leavitt 11/20/2022 2:54 PM EDT Workstation ID: [id number] us Betsy Smith MD IMG DXA ORDERABLES Final Result * SCANNED - COLOGUARD (03/25/2018) Betsy Smith MD LAB BLOOD ORDERABLES Final Resul t * COLONOSCOPY (09/05/2007) Colonoscopy colonoscopy 09/11 , GI - Dr. Shen (previously Dr. 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
--- OUTSIDE RECORDS SUMMARY | 2025-02-09 12:10 | XMS_ITS | Encounter Summary ---
Author Organization [facility] Address [address] [place] [address] Care Team Providers Care Fermenter Champagne Name Role Phone Betsy Smith MD Primary Care Provider [phone] Reason for Visit * Reason Onset Date Comments Med Refill 03/26/2020 Encounter Details Date Type Department Care Team (Late st Contact Info) Description 03/26/2020 Refill [facility] [address] [place] [phone] [place] [address] [place] [phone] Hyperlipidemia Social History Tobacco Use Types [...] Perales Relationship: Self Best call back number: [phone] Medication needed: Requested Prescriptions Pending Prescriptions Disp Refills ??? ezetimibe (Zetia) 10 MG tablet 90 tablet 3 Sig: Take 1 tablet by mouth Daily. When do you need the refill by: JOSE What details did the patient provide when requesting the medication: PATIENT HAS REQUESTED A NEW PRESCRIPTION FOR ABOVE MEDICATION PATIENT STATES DOCTOR NEEDS TO CALL [facility] AT [phone] Does the patient have less than a 3 day supply: [x] Yes [] No What is the patient's preferred pharmacy: [facility] [id number] [facility] [phone] [facility] [phone] FX documented in this encounter Plan of Treatment Upcoming Encounters Date Type Department Care Team (Late st Contact Info) Description 02/13/2025 1:45 PM EDT Office Visit [facility] [address] [place] [phone] Betsy Smith MD [address] [place] [address] 06/26/2025 3:00 PM EST Office Visit [facility] [address] [place] [phone] Betsy Smith MD [address] [place] [phone] documented as of this encounter Visit Diagnoses Diagnosis Hyperlipidemia Pure hypercholesterolemia documented in this encounter Care Teams Fermenter Champagne Relationship Specialty Start Date End Date Betsy Smith MD [address] [place] [id number] PCP - General 02/08/15 documented as of this encounter
--- OUTSIDE RECORDS SUMMARY | 2025-02-09 12:10 | XMS_ITS | Patient Health Record ---
[facility] Organization [facility] Address [address] [place] [id number] Care Team Providers Care New Client Banking Services Clerk Name Role Phone Serena Pope Primary Care Provider Elen Mckenna Unavailable [phone] Allergies No Known Allergies Reason For Referral No Information Medications Medication SIG (Take, Route, Frequency, Duration) Notes Start Date End Date Status Eye Vitamins - as directed Orally Active Vitamin D3 25 MCG (1000 UT) 1 tab(s) orally once a day Not-Taking Shingrix 50 MCG/0.5ML 0.5 mL intramuscularly once 09/20/2018 Not-Taking Cephalexin 500 MG 1 capsule Orally Two times a day Active Gabapentin 100 MG 2 cap(s) orally 3 times a day Not-Taking Alendronate Sodium 70 MG 1 tablet 30 minutes before the first food, beverage or medicine of the day with plain water Orally; Duration: 30 day(s) Active Atorvastatin Calcium 20 MG 1 tab(s) orally once a day; Duration: 30 day(s) Not-Taking Omeprazole 20 MG 1 capsule 30 minutes before morning meal Orally Once a day; Duration: 30 day(s) Active traMADol HCl 50 MG 1 tab(s) Orally three times a day as needed 03/13/2023 Not-Taking Pioglitazone HCl 15 MG 1 tab(s) orally once a day Unknown Calcium Carbonate 600 MG 2 TAB(S) CHEWED ONCE A DAY Active Linzess 72 MCG 1 cap(s) orally once a day Not-Taking Irbesartan 300 MG 1 tab(s) orally once a day; Duration: 30 day(s) Active amLODIPine Besy-Benazepril HCl 5-40 MG 1 cap(s) orally once a day Not-Taking metFORMIN HCl ER 750 MG 1 tab(s) orally 2 times a day Active Vitamin B-12 1000 MCG 1 tab(s) orally once a day; Duration: 30 day(s) Not-Taking Zetia 10 MG 1 tab(s) orally once a day Active Doxycycline Hyclate 100 MG 1 cap(s) orally 2 times a day 08/03/2022 Not-Taking Azelastine HCl 0.05 % 1 drop into affected eye Ophthalmic Twice a day, prn 08/09/2023 Active Meloxicam 15 MG 1 tab(s) orally once a day Not-Taking Moxifloxacin HCl 0.5 % 1 drop into affected eye Ophthalmic Three times a day 08/09/2023 Active RANITIDINE HYDROCHLORIDE 300 MG 1 TAB(S) ORALLY ONCE A DAY (AT BEDTIME) *Please review for potential replacement for e-prescription and drug interaction check* 09/20/2018 Not-Taking Mupirocin 2 % 1 application Externally Twice a day 08/09/2023 Active Cyclobenzaprine HCl 5 MG 1 tab(s) orally qhs Not-Taki ng Immunizations Vaccine Route Administration Date Status Comme nts xFluzone High Dose-private (65yr&older) Unknown 03/06/2017 Administered xFluzone High Dose-private (65yr&older) Unknown 02/01/2018 Administered xFluzone High Dose-private (65yr&older) Unknown 03/10/2019 Administered Tetanus Tdap-Adacel (over 7yrs) IM Intramuscular 05/26/2020 Administered Fluzone High Dose (65yr and older) Unknown 04/05/2022 Administered Fluzone High Dose (65yr and older) Unknown 03/15/2023 Administered COVID 19 Moderna Unknown 07/07/2020 Administered COVID 19 Moderna Unknown 08/04/2020 Administered COVID 19 Moderna Unknown 02/16/2021 Administered COVID 19 Moderna Unknown 12/07/2021 Administered Problems Problem Type SNOMED Code ICD Code Onset Dates Problem Status W/U Status Risk Notes Problem Essential hypertension (86033412) Essential hypertension (I10) Active confirmed Problem Slow transit constipation (19359755) Slow transit constipation (K59.01) Active confirmed Problem Gastroesophageal reflux disease without esophagitis (907711336) Gastroesophageal reflux disease without esophagitis (K21.9) Active confirmed Problem Sciatica (16446394) Left sided sciatica (M54.32) Active confirmed Problem Localized, primary osteoarthritis of the pelvic region and thigh (175853254) 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) Active confirmed Problem Dyslipidemia (593793914) Dyslipidemia (E78.5) Active confirmed Problem Type II diabetes mellitus without complication (637569440) Controlled type 2 diabetes mellitus without complication, without long-term current use of insulin (E11.9) Active confirmed Problem Chronic idiopathic constipation (77125238) Chronic idiopathic constipation (K59.04) Active confirmed Vital Signs Heart Rate 76 /min 09/25/2024 Blood pressure diastolic 72 mm Hg 09/25/2024 Height 65 in 09/25/2024 Blood pressure systolic 130 mm Hg 09/25/2024 Weight 148.8 lbs 09/25/2024 BMI 24.76 kg/m2 09/25/2024 Encounters Encounter Location Date Provider [facility] [address] [id number] 09/18/2024 Elen Mckenna Visit for suture rem oval Z48.02 ; Cellulitis of right finger L03.011 ; Closed fracture of nasal bone with routine healing, subsequent encounter S02.2XXD ; BMI 24.0-24.9, adult Z68.24 and Essential hypertension I10 [facility] [address] [id number] 09/25/2024 Elen Mckenna Cellulitis of right finger L03.011 ; Closed [...] of right finger (ICD-10 - L03.011) 09/25/2024 Cellulitis of right finger (ICD-10 - L03.011) 09/25/2024 Closed fracture of nasal bone with routine healing, subsequent encounter (ICD-10 - S02.2XXD) Patient has seen a specialist at and they are not going to do any surgery at this time. 09/25/2024 BMI 24.0-24.9, adult (ICD-10 - Z68.24) 09/18/2024 Closed fracture of nasal bone with routine healing, subsequent encounter (ICD-10 - S02.2XXD) Patient has seen a specialist at and they are not going to do any surgery at this time. 09/18/2024 BMI 24.0-24.9, adult (ICD-10 - Z68.24) 09/25/2024 Controlled type 2 diabetes mellitus without complication, without long-term current use of insulin (ICD-10 - E11.9) 09/18/2024 Essential hypertension (ICD-10 - I10) Plan Of Treatment No Information Insurance Providers Payer Name Payer Address Payer Phone Subscriber Number Group Number Insured Name Patient Relationship to Insured Coverage Start Date Coverage End Date MEDICARE PART B [address] [address] Valent[place] oliveros [id number] SUSHMA PACHECO Self - patient is the insured [facility] [address] [place] [address] [phone] [id number] SUSHMA PACHECO Self - patient is the insured Medications Administered Medication Instructions Date of Administration Dosage Notes Depo- Medrol 40 mg/ml 12/27/2018 1 mL Depo- Medrol 40 mg/ml 08/03/2022 1.5 mL Medical (General) History Medical History History ICD Code HTN DM 2 HLP GERD Surgical History Surgery Date(Month/Year) disc removed from back years ago right knee surgery tonsilectomy
[2025-02-09 13:53] LABS: Anion Gap 11.9 mEq/L (5-15); Blood Urea Nitrogen 22 mg/dl (7-17); Calcium 9.9 mg/dl (8.4-10.2); Carbon Dioxide 27 mmol/L (22.0-30.0); Chloride 94 mmol/L (98-107); Creatinine,Serum 0.90 mg/dl (0.52-1.04); Estimated Glomerular Filt Rate 59 ml/min (>60); GFR (African American) 72 ML/MIN (>60); Glucose 89 mg/dl (74-100); Potassium 4.9 mmoL/L (3.5-5.1); Sodium 128 mmol/L (136-145)
== END 2025-02-09 23:59 | disposition home or self-care (01) ==
LOC: LAB 12:08
PROVIDERS: PCP Family Medicine; Visit Provider Internal Medicine
DX: E87.1 Hypo-osmolality and hyponatremia (principal)
CPT/HCPCS: 36415; 80048

== ENCOUNTER 2025-02-25 11:00 | Outpatient (RCR) | payer MEDICARE, BC, SELFPAY | END 2025-02-25 23:59 | disposition home or self-care (01) | LOC: PT 11:00 | PROVIDERS: PCP Internal Medicine; Visit Provider Internal Medicine | DX: R29.6 Repeated falls (principal) | CPT/HCPCS: 97112; 97530 ==

== ENCOUNTER 2025-03-02 08:15 | Outpatient (CLI) | payer MEDICARE, BC, SELFPAY ==
--- OUTSIDE RECORDS SUMMARY | 2024-09-18 06:45 | XMS_ITS ---
[facility] [address] [facility] [address] [place] [id number] Care Team Providers Care Superintendent Refuse Disposal Name Role Phone Serena Pope Primary Care Provider Elen Mckenna Unavailable [phone] Allergies No Known Allergies REASON FOR VISIT remove stitches Medications Medication SIG (Take, Route, Frequency, Duration) Notes Start Date End Date Status Alendronate Sodium 70 MG 1 tablet 30 minutes before the first food, beverage or medicine of the day with plain water Orally; Duration: 30 day(s) Active Irbesartan 300 MG 1 tab(s) orally once a day; Duration: 30 day(s) Active Calcium Carbonate 600 MG 2 TAB(S) CHEWED ONCE A DAY Active Zetia 10 MG 1 tab(s) orally once a day Active Cephalexin 500 MG 1 capsule Orally Two times a day; Duration: 7 days 09/18/2024 Active Omeprazole 20 MG 1 capsule 30 minutes before morning meal Orally Once a day; Duration: 30 day(s) Active Gabapentin 100 MG 2 cap(s) orally 3 times a day Not-Taking Shingrix 50 MCG/0.5ML 0.5 mL intramuscularly once 09/20/2018 Not-Taking Pioglitazone HCl 15 MG 1 tab(s) orally once a day Unknown Eye Vitamins - as directed Orally Active Doxycycline Hyclate 100 MG 1 cap(s) orally 2 times a day 08/03/2022 Not-Taking Vitamin B-12 1000 MCG 1 tab(s) orally once a day; Duration: 30 day(s) Not-Taking RANITIDINE HYDROCHLORIDE 300 MG 1 TAB(S) ORALLY ONCE A DAY (AT BEDTIME) *Please review for potential replacement for e-prescription and drug interaction check* 09/20/2018 Not-Taking Meloxicam 15 MG 1 tab(s) orally once a day Not-Taking Cyclobenzaprine HCl 5 MG 1 tab(s) orally qhs Not-Taki ng Atorvastatin Calcium 20 MG 1 tab(s) orally once a day; Duration: 30 day(s) Not-Taking amLODIPine Besy-Benazepril HCl 5-40 MG 1 cap(s) orally once a day Not-Taking Linzess 72 MCG 1 cap(s) orally once a day Not-Taking Vitamin D3 25 MCG (1000 UT) 1 tab(s) orally once a day Not-Taking traMADol HCl 50 MG 1 tab(s) Orally three times a day as needed 03/13/2023 Not-Taking metFORMIN HCl ER 750 MG 1 tab(s) orally 2 times a day Active Moxifloxacin HCl 0.5 % 1 drop into affected eye Ophthalmic Three times a day 08/09/2023 Active Azelastine HCl 0.05 % 1 drop into affected eye Ophthalmic Twice a day, prn 08/09/2023 Active Mupirocin 2 % 1 application Externally Twice a day 08/09/2023 Active Vital Signs Blood pressure systolic 118 mm Hg 09/19/19 25 Blood pressure diastolic 82 mm Hg 025 Heart Rate 96 /min 09/18/2024 Height 65 in 09/18/2024 Weight 148.2 lbs 09/18/2024 BMI 24.66 kg/m2 09/18/2024 Encounters Encounter Location Date Provider Diagnosis [facility] [address] [place] [address], [place] [id number] 09/18/2024 Elen Mckenna Visit for suture rem oval Z48.02 ; Cellulitis of right finger L03.011 ; Closed fracture of nasal bone with routine healing, subsequent encounter S02.2XXD ; BMI 24.0-24.9, adult Z68.24 and Essential hypertension I10 Assessments Encounter Date Diagnosis (ICD Code) Assessment Notes Treatment Notes Treatment Clinical Notes Section Notes 09/18/2024 Visit for suture removal (ICD-10 - Z48.02) Sutures removed without difficulty and dressing applied. 09/18/2024 Cellulitis of right finger (ICD-10 - L03.011) 09/18/2024 Closed fracture of nasal bone with routine healing, subsequent encounter (ICD-10 - S02.2XXD) Patient has seen a specialist at and they are not going to do any surgery at this time. 09/18/2024 BMI 24.0-24.9, adult (ICD-10 - Z68.24) 09/18/2024 Essential hypertension (ICD-10 - I10) Plan Of Treatment Medication Medication Name Sig Start Date Stop Date Notes Cephalexin 500 MG 1 capsule Orally Two times a day; Duration: 7 days 09/18/2024 Treatment Notes Assessment Notes Visit for suture removal Sutures removed without difficulty and dressing applied. Closed fracture of nasal bon e with routine healing, subsequent encounter Patient has seen a specialist at and they are not going to do any surgery at this time. Next Appt Details Follow Up: 1 Week, Reason: Progress Notes * SUSHMA PACHECO:1934 (89 yo F)Acc No.[id number]:09/18/2024 Progress Notes Patient: SUSHMA KNIGHTLucy Provider: XOCHILT Shipman :1935 A ge:89 Y S ex:Female Date:09/18/2024 Phone: Address:[address] [place], [place] [id number] Pcp:Serena Pope Subjective: * Chief Complaints: * 1 . Remove stitches. * HPI: D ermatology: 89 year old female presents with c/o Suture Removal P t is here to have stitches removed from the right 2nd digit. Pt sts she has had the stitches in for 7 days today and sts her paperwork sts she should leave them in for 7-10 days. * ROS: D ERMATOLOGY: no R mike. n o H berny. G ASTROENTEROLOGY: no N ausea. n o V omiting. U ROLOGY: no D ifficulty urinating. n o B lood in urine. * Medical History: H [place], DM 2, HLP, GERD. * Surgical History: d isc removed from back years ago , right knee surgery , tonsilectomy . * Family History: F ather: 82 yrs, [...] tab(s) orally 2 times a day , Taking Moxifloxacin HCl 0.5 % Solution 1 drop into affected eye Ophthalmic Three times a day , Taking Azelastine HCl 0.05 % Solution 1 drop into affected eye Ophthalmic Twice a day, prn , Taking Mupirocin 2 % Ointment 1 application Externally Twice a day , Not-Taking Vitamin D3 25 MCG (1000 UT) Tablet 1 tab(s) orally once a day , Not-Taking traMADol HCl 50 MG Tablet 1 tab(s) Orally three times a day as needed , Not-Taking Atorvastatin Calcium 20 MG Tablet 1 tab(s) orally once a day , Not-Taking amLODIPine Besy-Benazepril HCl 5-40 MG Capsule 1 [...] replacement for e-prescription and drug interaction check*, Not-Taking Meloxicam 15 MG Tablet 1 tab(s) orally [...] Allergies: N .K.D.A. Objective: * Vitals: W t: 148.2, Temp: 98.0, BP: 118/82, HR: 96, Nurse: alverto, Ht: 65, BMI:24.66. * Examination: G eneral Examination: General Appearance: N AD. H eart: R SR. L ungs:?clear to auscultation. S kin: r ight index finger with skin flap laceration from fall with some surrounding erythema, 2 simple interrupted sutures were removed without difficulty and a dressing was placed, there is also a laceration on the right forehead that is healing well, there is ecchymosis around the eyes and nose from fall. Assessment: * Assessment: 1. V isit for suture removal - Z48.02 (Primary) 2 . C ellulitis of right finger - L03.011 S pecify :2nd digit 3 . C losed fracture of nasal bone with routine healing, subsequent encounter - S02.2XXD 4 . B AR 24.0-24.9, adult - Z68.24 5 . E ssential hypertension - I10 Plan: * Treatment: 2. C ellulitis of right finger Start Cephalexin Capsule, 500 MG, 1 capsule, Orally, Two times a day, 7 days, 14 Capsule, Refills 0. 3. C losed fracture of nasal bone with routine healing, subsequent encounter Notes: Patient has seen a specialist at and they are not going to do any surgery at this time.? * Procedure Codes: G 2211 Complex e/m visit add on, 3074F SYST BP LT 130 MM HG, 3079F DIAST BP 80-89 MM HG, G8420 BMI<30 AND >=22 CALC & DOCU * Follow Up: 1 Week * Images: Billing Information: * Visit Code: 67903 Office Visit, Est Pt., Level 3. * Procedure Codes: G2211 Complex e/m visit add on. 3074F SYST BP LT 130 MM HG. 3079F DIAST BP 80-89 MM HG. G8420 BMI<30 AND >=22 CALC & DOCU. * Electronic signature of XOCHILT English on 03/02/2025 at 08:21 AM EDT Sign off status: Pending * Provider: XOCHILT Shipman Date: 0 09/18/2024 Generated for Kay price/Marcel/eTransmitting on: 1 08:21 AM EDT History and Physical Notes * HPI (History of Present Illness) Category Sub-Category Detail Notes Category Not es Dermatology Suture Removal Pt is here to plascencia ve stitches removed from the right 2nd digit. Pt sts she has had the stitches in for 7 days today and sts her paperwork sts she should leave them in for 7-10 days Examination Category Sub-Category Detail Notes Category Not es General Examination Heart: RSR Lungs: clear to auscultatio n General Appearance: NAD Skin: right index finger w ith skin flap laceration from fall with some surrounding erythema, 2 simple interrupted sutures were removed without difficulty and a dressing was placed, there is also a laceration on the right forehead that is healing well, there is ecchymosis around the eyes and nose from fall
--- OUTSIDE RECORDS SUMMARY | 2024-09-25 09:00 | XMS_ITS ---
Author Organization [facility] [address] [place] [phone] Care Team Providers Care Director Of Special Education Name Role Phone Serena Pope Primary Care Provider [phone] Elen Mckenna Unavailable [phone] Allergies No Known Allergies REASON FOR VISIT [...] day; Duration: 30 day(s) Active Vital Signs Blood pressure systolic 130 mm Hg 09/26/19 25 Blood pressure diastolic 72 mm Hg 025 Heart Rate 76 /min 09/25/2024 Height 65 in 09/25/2024 Weight 148.8 lbs 09/25/2024 BMI 24.76 kg/m2 09/25/2024 Encounters Encounter Location Date Provider Diagnosis [facility] [address] [phone] 09/25/2024 Elen Crowdy Cellulitis of right finger [...] Up: prn, Reason: Progress Notes * SUSHMA PERALESLucy:1934 (89 yo F)Acc No.[id number]:09/25/2024 Progress Notes Patient: SUSHMA KNIGHT Provider: XOCHILT Shipman :1935 A ge:89 Y S ex:Female Date:09/25/2024 Phone: Address:[address] [place] [address] [place], [id number] Pcp:Serena Pope Subjective: * Chief Complaints: * [...] subsequent encounter - S02.2XXD 3 . B [place] 24.0-24.9, adult - Z68.24 4 . C [...] * Images: Billing Information: * Visit Code: 90579 Office Visit, Est Pt., Level 3. * Procedure Codes: G2211 Complex e/m visit add on. 3075F SYST BP GE 130 - 139MM HG. 3078F DIAST BP < 80 MM HG. G8420 BMI<30 AND >=22 CALC & DOCU. * Electronic signature of XOCHILT English on 03/02/2025 at 08:22 AM EDT Sign off status: Pending * Provider: XOCHILT Shipman Date: 0 09/25/2024 Generated for Printi ng/Faxing/eTransmitting on: 1 08:22 AM EDT History and Physical Notes * [...]
--- OUTSIDE RECORDS SUMMARY | 2025-02-13 13:45 | XMS_ITS | Encounter Summary ---
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 Ingredients: reverse osmosis water, potassium [...] 128; it looks like her clear Body [place] Sportwater contains no sodium; advised 64 oz water per day, recommend 1/2 water and 1/2 Liquid IV; f/u BMP in 2 weeks Orders: - Basic Metabolic Panel; Future 3. Stage 3a chronic kidney disease Assessment & Plan: Commended patient on improved renal function, back to nl Cr 0.9, GFR 72; encouraged maintaining adequate daily water intake - advising changing Body [place] Sportswater to 1/2 water and 1/2 Liquid IV due to persistent hyponatremia 4. Type 2 diabetes mellitus with stage 3a chronic kidney disease, without long- term current use of insulin Assessment & Plan: F/u A1C in 3 mos Orders: - Hemoglobin A1c; Future 5. Need for COVID-19 vaccine - Covid-19 Vaccine 12+Yrs (Moderna SPIKEVAX [id number]) 6. Need for influenza vaccination - Fluzone High-Dose 65+yrs 7. Hyperlipidemia 8. B12 deficiency 7. Leg weakness - fall precautions; ongoing PT; reviewed importance of HEP 8. Walks with cane FOLLOW-UP Health maintenance - rec flu and COVID vacc, counseling given (both done today) BMP in 2 wks (order given to patient to obtain in [place]) RTC for next wellness 06/26/25; fasting labs prior to appt (CBC, CMP, TSH, lipids, UA/micro, A1C, microalb/Cr, vit D, B12) +MMSE Electronically signed by: Betsy Smith MD, FACP 02/13/2025 documented in this encounter Plan of Treatment Upcoming Encounters Date Type Department Care Team (Late st Contact Info) Description 06/26/2025 3:00 PM EST Office Visit [facility] [address] [place] [phone] Betsy Smith MD [address] [place] [address] [phone] Scheduled Orders Name Type Priority Associated Diagnoses Orde r Schedule Basic Metabolic Panel Lab Routine Hyponatremia Expected: 02/27/2025 (Approximate) Hemoglobin A1c Lab Routine Type 2 diabetes mellitus with stage 3a chronic kidney disease, without long-term current use of insulin Expected: 02/27/2025 (Approximate) documented as of this encounter Visit [...] documented as of this encounter Care Teams Medical Economics Consultant Relationship Specialty Start Date End Date Betsy Smith MD [address] [place] [phone] PCP - General 02/08/15 documented as of this encounter
--- OUTSIDE RECORDS SUMMARY | 2025-03-02 08:21 | XMS_ITS | Clinical Summary ---
Author Organization [facility] Address [address] [place] [address] Care Team Providers Care Ocean Biologist Name Role Phone Betsy Smith MD Primary Care Provider Allergies No known active allergies Medications metFORMIN [...] 6 (six) hours. 09/25/2023 Active HYDROcodone-acet aminophen ([place]) 5-325 MG tablet Take 1 tablet (5 [...] drink first t dahlia in the morning (EYE-COSMETIC DENTIST) to steady your nerves or to get [...] Joint [address], [address] [place] [address] Griffin Bustillos MD [address] [facility] [address] [place] [address] Health Maintenance Due Date Last Done Comments Dental Oral Exam 1935 Dental Prophylaxis 1937 Dental X-Ray: Bitewings 1937 Dental X-Ray: Full Mouth 1937 [facility]-Depression Screening 1937 [facility]-Infant/Child/Adol SDOH Screenings 1937 [facility]- SDOH Screenings 1955 [facility]-Adult SDOH Screenings 1955 [facility]-Zoster Vaccines (2 of 3) 11/19/2008 09/24/2008 [facility]-Bone Density Scan 11/17/2023 11/16/2022 [id number] Vaccine ( season) 2025 01/18/2024, 06/28/2023, 09/22/2022, [...] this topic Medical Devices Implanted Type Area Patient Appointment Coordinator Device Identifier Shelf Expiration Date Model / Serial / Lot g Cable D-M 2.0mm Beaded Set - [id number] Implanted:Qty: 1 on 09/19/2023 by Griffin Bustillos MD at [facility] Cable Left: Hip [employer] [facility][id number] [id number] 12/18/2027 [id number] / / [id number] Shell Trident Ii Cluster 52mm - [id number] Implanted:Qty: 1 on 09/19/2023 by Griffin Bustillos MD at [facility] Hip Left: Hip [employer] ([facility]1391 68 08/21/2028 [id number] / / [id number] Hip Size 6 Accolade Ii 127 Deg - [id number] Implanted:Qty: 1 on 09/19/2023 by Griffin Bustillos MD at [facility] Hip Left: Hip [employer] ([facility])-1391 68 04/04/2027 [id number] / / [id number] Chg Head Delta V-40 Ceramic 36 - [id number] Implanted:Qty: 1 on 09/19/2023 by Griffin Bustillos MD at [facility] Hip Left: Hip [employer] ([facility])-[id number] 68 03/26/2028 [id number] / / [id number] Liner Trident X3 10deg 36 Mm Id 5.9 Mm - [id number] Implanted:Qty: 1 on 09/19/2023 by Griffin Bustillos MD at [facility] Liner Left: Hip [employer] ([employer])-[id number] 68 06/30/2028 [id number] / / [id number] Screw 6.5mm Trident Low Profile Hex 25mm - [id number] Implanted:Qty: 1 on 09/19/2023 by Griffin Bustillos MD at [facility] Screw Left: Hip [employer] ([email or web address] [employer]1391 68 07/11/2028 [id number] / / HN Procedures Procedure Name Priority Date/Time Associated Diagnosis Comments HEMOGLOBIN A1C Routine 09/04/2023 11:59 AM EDT Hip pain, left Primary localized osteoarthritis of left hip Type 2 diabetes mellitus without complication, unspecified whether mcc insulin use ([facility]) from Last 3 Months or Most Recently Relevant to Health Maintenance Results * (ABNORMAL) Hemoglobin A1c (09/04/2023 11:59 AM EDT) Hemoglobin A1c 6.0(H) <5.7 % 09/04/2023 5:33 PM EDT [facility] Blood Venous blood specimen / Unknown [...] Adults <6.0% Children and Adolescents <7.5% Source: [place] [employer]. Standards of medical care in diabetes,2017. Diabetes Care.2017:40 (suppl 1):S1-S135. HbA1c assay performed by an ion-exchange chromatography method that is certified traceable to the DCCT. Griffin Bustillos MD LAB BLOOD ORDERABLES Marielle solitario Result [facility] [address] [place] [phone] from Last 3 Months or Most Recently Relevant to Health Maintenance [place] [address] ANTH Advance Directives * Full Code (Latest Code Status on File) Date Activated Date Inactivated Comments 09/19/2023 9:05 AM 09/25/2023 5:08 PM Question Answer Comments Patient has decision-making capacity? Yes Care Teams Ocean Biologist Relationship Specialty Start Date End Date Betsy Smith MD [address] [facility] [address] [place] [address] PCP - General 06/13/23
--- OUTSIDE RECORDS SUMMARY | 2025-03-02 08:21 | XMS_ITS | Encounter Summary ---
Author Organization [facility] Address [address] [place] [address] Care Team Providers Care Magnetizer Name Role Phone Betsy Smith MD Primary Care Provider [phone] Encounter Details Date Type Department Care Team (Late Contact Info) Description 02/15/2023 Orders Only External Location [address] [place] [phone] Elen Mckenna PA [address] [facility] [address] [place] [address] Social History Tobacco Use Types Packs/Day Years [...] [address] [facility], [address] [place] [address] Griffin Bustillos MD [address] [facility] [address] [place] [address] documented as of this encounter [...] on filedocumented in this encounter Care Teams Magnetizer Relationship Specialty Start Date End Date Betsy Smith MD [address] [facility] [address] [place] [address] PCP - General 06/13/23 documented as of this encounter
--- OUTSIDE RECORDS SUMMARY | 2025-03-02 08:21 | XMS_ITS | Clinical Summary ---
[facility] Address [address] [place] [address] Care Team Providers Care Facility Coordinator Name Role Phone Betsy Smith MD Primary Care Provider [phone] Allergies Active Allergy Reactions Criticality Noted Date [...] areas in thin layer BID 30 g 025 Active oxybutynin XL (DITROPAN-XL) 10 MG 24 hr tabletIndications:Urina ry Incontinence Take 1 tablet by mouth Daily. Indications: Urinary Incontinence 90 tablet 2 025 Active atorvastatin (LIPITOR) 20 MG tabletIndications:Pure hypercholesterolemia Take 1 tablet by mouth Every Night. Active vitamin B-12 (CYANOCOBALAMIN) 1000 MCG tabletIndications:B12 deficiency Take 1 tablet by mouth Daily. Active irbesartan (AVAPRO) 75 MG tabletIndications:Essen tial hypertension Take 1 tablet by mouth Daily. 90 tablet 1 025 Active irbesartan (AVAPRO) 75 MG tabletIndications:Essen tial hypertension Take 1 tablet by mouth Daily. 30 tablet 1 025 2024 Disconti nued(Reo rder) Active Problems Problem Noted Date Diagnosed Date Closed fracture of nasal bone with routine heali ng 12/24/2024 Overview (12/24/2024): 09/11/24 CT head ([facility]): s/p fall; depressed fx of L nasal bones/frontal maxilla, no hemorrhage Recurrent falls 12/12/2024 Overview (02/19/2025): 02/19/25 see [facility] PT orders from 02/11/25 for balance, gait, strength; 01/09/25 see PT from [facility] for recurrent falls Assessment & Plan [...] and fall risk; patient will pursue at [facility] (son is going to rehab there 3x/wk after lung transplant/heart surgery) Allergic conjunctivitis of both eyes 06/09/2024 Overview (06/09/2024): Better with Zaditor Assessment & Plan (06/09/2024 4:29 PM EST): Success with zaditor eye drops Normocytic anemia 09/05/2023 Overview (10/08/2023): 10/05/23 [facility] discharge s/p L THR - s/p [...] prevention; 07/13/23 see std wheelchair order from [facility] Assessment & Plan (06/27/2023 10:33 [...] wks for DVT prevention; 06/16/23 CT pelvis ([facility]) - severe L femoroacetabular DJD with [...] - check MRI left hip; 03/16/23 see [facility] PT order dated 03/16/23; 03/08/23 CT [...] swelling, 20 minutes 3x/day; has PT 2x/week ([facility]) but advised patient should be doing [...] she leaves rehab so we can schedule [facility] hospital follow-up visit as most likely she [...] BID-TID prn as needed Hyponatremia 06/20/2017 Overview (02/13/2025): 02/09/25 Na 128; 12/03/24 worsened Na 129 (was 133 pm 09/06/24); 09/11/24 Na 126 ([facility] ER, s/p fall); 07/10/24 persistent Na 126; cont 1.5L/day, liberalize Na, repeat BMP 1 wk; 06/30/24 Na 128; 06/16/24 recurrent Na 125; sugg of SIADH (s-osm 266, u-osm 406); 04/09/24 improved Na 135; 01/18/24 improved/nl Na 138; 10/05/23 [facility] discharge s/p L THR; improved on 1.5L fluid restriction; 09/25/23 persistent postop, improved to 126; cont 1.5L fluid restriction; 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 this admit with mild hypovolemic aspect in setting of periop blood loss s/p transfusions 09/12/23 worsened Na 127; needs BMP, serum/urine osm (escribed); 09/04/23 Na 133; 06/16/23 [facility] admission Na 123; 130 by discharge; 06/06/23 persistent Na 128; 04/27/22 resolved Na 136 Assessment & Plan (02/13/2025 9:32 PM EDT): Persistent hyponatremia Na 128; it looks like her clear Body K[employer]on [employer] contains no sodium; advised 64 oz water per day, recommend 1/2 water and 1/2 Liquid IV; f/u BMP in 2 weeks Assessment & Plan (12/11/2024 10:30 PM EDT): [...] kidney disease), stage III 02/29/20 16 Overview (02/13/2025): 02/09/25 back to nl Cr 0.9, GFR 72; 12/03/24 unchanged Cr 1.1, GFR 47; 05/15/24 [...] - stable renal function; Assessment & Plan (02/13/2025 9:37 PM EDT): Commended patient on improved renal function, back to nl Cr 0.9, GFR 72; encouraged maintaining adequate daily water intake - advising changing Body K[employer]on [employer]ater to 1/2 water and 1/2 Liquid IV due to persistent hyponatremia Assessment & Plan (12/11/2024 10:29 PM EDT): [...] order given to patient to get at [facility] Assessment & Plan (03/28/2024 12:53 PM EST): [...] Overflow incontinence of urine 02/29/2016 Overview (01/19/2024): 9/13/24 RX oxybutynin XL 10mg QD in addition [...] 03/16; Tdap 10/15 (Td due 2020), Zostavax 5/09, Shingrix and HAV done; mammo pending 03/18/19; [...] 09/12; mammo to be updated (08/27/15) at [facility]; no further Paps unelss abnlities; DEXA [...] 09/12; mammogram 2015 - will request from [facility]; no further Paps unless abnlities; DEXA [...] omeprazole 40mg QD with improved efficacy 10/05/23 [facility] discharge s/p L THR; on pantoprazole [...] 09/08/24 A1C 6.2; 05/15/24 A1C 6.4; 03/26/24 yong/Dr. Dunia abdi DMR, dry mac degen OU; 11/12/23 A1C 5.5, d/c met ER 500mg QD; 10/18/23 only on met ER 500mg QD; 10/05/23 [facility] discharge s/p L THR - on met ER 500mg QD; 09.04.23 A1C 6.0; 06/28/23 A1C 6.3; 06/17/23 D/C meds - on amita/met ER QD (prev amita 30mg QD and met XR 500mg 2 QD; 06/16/23 A1C 6.0 ([facility]); 06/06/23 A1C 5.9; 06/05/23 A1C 6.4; 03/21/23 ophkeren/Dr. Dunia - no DMR, dry mac degen OU; 03/08/22 Luisa Duque - no DMR, has dry mac degen OU; 03/14/21 stable A1C 6.0; 03/02/21 Luisa Duque - no DM retinopathy; 09/09/20 A1C 6.0; 04/14/20 A1C 6.2; 03/25/20 A1C 6.05; 03/05/20 stable A1C 6.2, on amita 30mg QD met XR 750mg 2 QD; 07/16/19 Luisa Duque - no DM retinopathy; 06/27/19 improved A1C 6.0; 03/05/19 stable bord A1C 6.3 (was 5. In 09/22, 5.7 in 01/22); on amita met 15/850 BID; 11/15/16 Luisa Duque - no DM retinopathy Assessment & Plan (02/13/2025 9:37 PM EDT): F/u A1C in 3 mos Assessment & Plan (12/11/2024 10:34 PM EDT): [...] updated DM eye exam upcoming at [facility] - will do this summer - request [...] with having hearing evaluated Hypertension 02/18/2016 Overview (02/13/2025): 02/13/25 BP 126/70; cont irbesartan 75mg QD; 11/12/23 BP machine verified; no meds; 10/18/23 BP 132/68; no BP meds; 10/05/23 [facility] discharge s/p L THR - irbesartan [...] 3RF; low Na diet; Assessment & Plan (02/13/2025 9:31 PM EDT): BP stable, at goal 126/70; cont irbesartan 75mg QD #90, 1RF Assessment & Plan (12/12/2024 9:44 PM EDT): [...] Encounters Date Type Department Care Team Description 02/13/2025 1:45 PM EDT Office Visit [facility] [address] [place] [address] Betsy Smith MD Hypertension (Primary Dx); Hyponatremia; Stage 3a chronic kidney disease; Type 2 diabetes mellitus with stage 3a chronic kidney disease, without long-term current use of insulin; Need for COVID-19 vaccine; Need for influenza vaccination; Hyperlipidemia; B12 deficiency 02/13/2025 Travel 01/01/2025 Telephone [facility] [address] [place] [phone] Betsy Smith MD 12/12/2024 12:45 PM EDT Office Visit [facility] [address] [place] [phone] Betsy Smith MD Type 2 diabetes mellitus with stage 3a chronic kidney disease, without long-term current use of insulin (Primary Dx); Stage 3a chronic kidney disease; Hyponatremia; Mild cognitive impairment; Hypertension; Recurrent falls; Excoriation 12/12/2024 Travel from Last 3 Months Immunizations Immunization Administration Dates Next Due Arexvy (RSV, Adults 60+ yrs) 07/02/2023 COVID-19 (MODERNA) 12YRS+ (SPIKEVAX) 02/13/2025 COVID-19 (MODERNA) 1st,2nd,3 rd Dose Monovalent 12/07/2021,02/16/2021,08/04/2020,07/07 COVID-19 (PFIZER) 12YRS+ (COMIRNATY) 01/18/2024, 06/28/2023 COVID-19 (PFIZER) BIVALENT 12+YRS 09/22/2022 FluMist 2-49yrs 02/12/2015,02/09/2014,02/24/2013 Fluad Quad 65+ 03/12/2020 Fluzone (or Fluarix & Flulav al for VFC) >6mos 05/19/2021 Fluzone High-Dose 65+YRS 02/13/2025,01/05,03/10/2019,02/01,03/06/2017,02/29/2016 Fluzone High-Dose 65+yrs 03/15/2023,04/05/2022 Hepatitis A 08/16/2018,02/11/2018 [...] 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 Not on file Not on fi le Last Filed Vital Signs Vital Sign Reading Time Taken Comments Blood Pressure 126/70 02/13/2025 1:31 PM EDT Pulse 80 02/13/2025 1:31 PM EDT Temperature 36.7 C (98.1 F) 11/12/2023 2:03 PM EDT Respiratory Rate 16 02/21/2024 9:31 AM EDT Oxygen Saturation 96% 02/13/2025 1:31 PM EDT Inhaled Oxygen Concentration - - Weight 66.2 kg (146 lb) 02/13/2025 1:31 PM EDT Height 160.7 cm (5' 3.25 ) 02/13/2025 1:31 PM ED T Body Mass Index 25.66 02/13/2025 1:31 PM EDT Plan of Treatment Upcoming Encounters Date Type Department Care Team (Late st Contact Info) Description 06/26/2025 3:00 PM EST Office Visit [facility] [address] [place] [address] Betsy Smith MD [address] [place] [address] Health Maintenance Due Date Last Done Comments COLON CANCER SCREENING 5 YEA R SIGMOIDOSCOPY 1982 CT COLONOGRAPHY 1982 FECAL OCCULT BLOOD TEST 1982 FIT Testing (1 year) 1982 COLONOSCOPY 09/04/2017 09/05/2007 DIABETIC FOOT EXAM 03/06/2018 03/06/2017, 03/06/2017 COLOGUARD 03/25/2021 03/25/2018, 03/07, 03/25/2018 MOST FORM 03/22/2022 03/22/2021 DIABETIC EYE EXAM 03/26/2025 03/26/2024, , 03/26/2024, Additional history exists LIPID PANEL 05/15/2025 05/15/2024, 06/08, 06/06/2023, Additional history exists URINE MICROALBUMIN-CREATININ E RATIO (uACR) 05/15/2025 05/15/2024, 06/29/2023, 06/06/2023, Additional history exists HEMOGLOBIN A1C 06/05/2025 12/03/2024, 09/2024, 05/15/2024, Additional history exists ANNUAL WELLNESS VISIT 06/09/2025 06/09/2024 , 06/05/2023, 03/24/2022, Additional history exists DXA SCAN 11/16/2025 11/16/2022, 06/08, 03/09/2016, Additional history exists TDAP/TD VACCINES (4 - Td or Tdap) 09/11/2034 09/11/2024, 05/26/2020, 05/26/2020 Pneumococcal Vaccine 50+ Completed 02/12/2015, 03/08 ZOSTER VACCINE Completed 09/20/2018, 10/0 12/2017, 09/24/2008 RSV Vaccine - Adults Completed 07/02/2023 COVID-19 Vaccine Discontinued 02/13/2025, , 06/28/2023, Additional history exists INFLUENZA VACCINE Completed 02/13/2025, , 03/15/2023, Additional history exists COLORECTAL CANCER SCREENING Discontinued Procedures Procedure Name Priority Date/Time Associated Diagnosis Comments SCANNED - LABS 02/09/2025 SCANNED COGNITIVE ASSESSMENT 12/12/2024 SCANNED - LABS [...] to Health Maintenance Results * LABS SCANNED (02/09/2025) Only the most recent of2 resultswithin the time period is included. us Betsy Smith MD LAB BLOOD ORDERABLES Final Resul t * COGNITIVE ASSESSMENT SCAN (12/12/2024) us Betsy Smith MD NEUROLOGY ORDERABLES Final Resul t * (ABNORMAL) POC Glycosylated Hemoglobin (Hb A1C) (09/08/2024 3:47 PM EDT) Hemoglobin A1C 6.2(A) 4.5 - 5.7 % [facility] Lot Number [id number] [facility] Expiration Date 05/23/2026 [facility] Blood 09/08/2024 3:47 PM EDT Betsy Smiht MD POINT OF CARE TEST ORDERABLES Fi nal Result [facility]
[address] [place] [address], * Microalbumin / Creatinine Urine Ratio - Urine, Clean Catch (05/15/2024 10:34 AM EST) Microalbumin/C reatinine Ratio 11.3 0.0 - 29.0 mg/g 05/15/2024 11:33 PM EST [facility] Creatinine, Urine 141.8 mg/dL 05/15/2024 11:33 PM EST [facility] Microalbumin, Urine 1.6 mg/dL 05/15/2024 11:33 PM EST [facility] Urine Urine specimen obtained by clean catch procedure / Unknown Collection / Unknown 05/15/2024 10:34 AM EST 05/15/2024 10:34 AM EST Betsy Smith MD URINE ORDERABLES Final Result [facility]
[address] [place] [address], * (ABNORMAL) Lipid Panel (05/15/2024 10:34 AM EST) Total Cholesterol 138 0 - 200 mg/dL 05/15/2024 2:51 PM EST [facility] Triglycerides 39 0 - 150 mg/dL 05/15/2024 2:51 PM EST [facility] HDL Cholesterol 64(H) 40 - 60 mg/dL 05/15/2024 2:51 PM EST [facility] LDL Cholesterol 64 0 - 100 mg/dL 05/15/2024 2:51 PM EST [facility] VLDL Cholesterol 10 5 - 40 mg/dL 05/15/2024 2:51 PM EST [facility] LDL/HDL Ratio 1.03 05/15/2024 2:51 PM EST [facility] Blood Venipuncture / Unknown 05/15/2024 10:34 AM EST 05/15/2024 10:34 AM EST Narrative [facility] - 05/15/2024 2:51 PM EST Cholesterol [...] ORDERABLES Final Resul t [facility]
[address] [place] [address], * EYE EXAM SCANNED (03/26/2024) Anatomical Region [...] fall-prevention measurements. The National Osteoporosis Foundation recommends (http://www.nof.org/hcp/practice/hwhgyotn-uxq-zxinddyd-guidelines/clinicians-hussein de) that FDA-approved medical therapies be considered [...] the left hip with 95% confidence is 0.321355 gm/cm2 at the hip and 0.094165 g/cm2 at the lumbar spine. Electronically Signed: Colt Leavitt 11/20/2022 2:54 PM EDT Workstation ID: [id number] Narrative 11/20/2022 2:54 PM EDT DUAL-ENERGY X-RAY [...] normal patients. According to criteria established by the[facility], patients with T-scores between 1.0 and [...] exercises and fall-prevention measurements. The NationalOsteoporosis Foundation recommends(http://www.nof.org/hcp/practice/qsjbdtcm-jky-dbenzkaz-guidelines/clin ician s-guide) that FDA-approved medical therapies be [...] at the left hipwith 95% confidence is 0.130973 gm/cm2 at the hip and 0.064901 g/cm2 atthe lumbar spine. Electronically Signed: Colt Leavitt 11/20/2022 2:54 PM EDT Workstation ID: [id number] us Betsy Smith MD IMG DXA ORDERABLES Final Result * SCANNED - COLOGUARD (03/25/2018) Betsy Smith MD LAB BLOOD ORDERABLES Final Resul t * COLONOSCOPY (09/05/2007) Colonoscopy colonoscopy 09/11 , GI - Dr. Shen (previously Dr. Egan) Historical Provider HEALTH MAINTENANCE Final Result from Last 3 Months or Most Recently Relevant to Health Maintenance Insurance [facility] eVestment MEDICARE A & B Advance Directives Documents on File Type Date Recorded Patient Service Establishment Attendant Expl anation [place] ([place] - SCAN 03/22/2021 12:49 PM MOST FORM, [facility] 03/21/2021 Healthcare Agents on File Name Relationship Healthcare Agent Relationshi p Communication Nory Perales Son Health Care Surrogate Care Teams Facility Coordinator Relationship Specialty Start Date End Date Betsy Smith MD [address] [place] [address] [facility] - General 02/08/15
--- OUTSIDE RECORDS SUMMARY | 2025-03-02 08:21 | XMS_ITS | Data Portability ---
Author Organization [facility] IGOR [facility] Address [address] [place] [address] Assessment No assessment recorded. Plan of Treatment [...] By Organization Details Last Modified Time 01/21/2019 [id number] Spent 30 total minutes with the patient today. Greater than 50% of this time was spent counseling/coordi nation of care as documented in my assessment and plan above. [email or web address] Not available 01/21/2019 09:07:30 Reason for Referral None Reported. Procedures Surgical History Date Name Laterality Status Provider Name and Address Organization Details Recorded Time Back Surgery completed Diane Ena [facility] 01/21/2019 08:45:10 Knee arthroscopy/s urgery completed Diane Ena [facility] 01/21/2019 08:45:17 Removal of tonsils completed Diane Ena [facility] 01/21/2019 08:45:30 Imaging Results None recorded. Procedure [...] Body mass index (BMI) Body weight Systolic And Diastolic Provider Name and Address Organization Details Last Updated DateTime 01/21/2019 165.1 cm 27.6 kg/m2 01167.33 g 142/72 mm[Hg] Diane Sutherland [facility] 01/21/2019 08:42:20 Social History None recorded. Functional Status None recorded. Mental Status None recorded. Family History Nothing Reported. Medical History Condition Response Diabetes Y Hypertension Y Gynecological HistoryNo gynecological history recorded. Obstetrics History GPAL:G 0 P 0 0 0 0 Past Encounters Encounter ID Performer Location Encounter Start Date Encounter Closed Date Diagnosis/Indication Diagnosis SNOMED-CT Code Diagnosis ICD10 Code Diagnosis IMO Codes Diagnosis Note [id number] [facility] [address] [place] [address] 01/21/2019 08:19:33 01/23/2019 14:45:01 Spinal stenosis of lumbar region [id number] M48.061 83-year-ol d white female status post what sounds like a discectomy 50 years ago at [facility] with a past medical history significan t for diabetes, hypertensi on, and chronic constipati on here today as a new patient referral from Dr. Pope. She had about 1 month history of low back and left leg pain after bearing down to have a bowel movement, but is 100% better with gabapentin and physical therapy. Her lumbar MRI from [facility] from 01/03/19 on a CD was reviewed showing severe central canal stenosis at L3-4 and L4-5. Dr. Henry explained as her symptoms have improved and she is not having any signs or symptoms of cauda equina, she can avoid surgery here. She will not resume her gabapentin as she feels that it is causing her to have ankle swelling. She will continue physical therapy. Her CD was returned her. She knows to bring her back with her. We will go ahead and schedule follow-up in [address] Henry. She does to call with any questions or concerns in the meantime. Should her symptoms recur, she will likely be a candidate for surgery. The patient was seen and examined by Dr. Henry and myself. He agrees with the plan as stated above. Health Concerns Section Related Observation LastModified by Organization Detai ls LastModified Time None Recorded Concern Status LastModified by Organization Details LastModified Time None Recorded Advance Directives Directive None Recorded Payers Insurance Date Sequence Insurance Name Policy Number Policy Russo Covered Member ID Russo Member ID Guarantor Name 01/21/2019 2 [place] JOSIAH CASTELLON OF [employer]EE [employer] [address] [id number] Tasneem McIlvain 03/31/2020 1 [place] Tasneem M McIlvain [id number] Tasneem McIlvain Notes Date Note Type Note Provider Name and Address Organization Details Recorded Time 01/21/2019 text/html ROS as noted in the HPI 83-year-old white female status post what sounds like a discectomy 50 years ago at [facility] with a past medical history significant for [...] a lumbar MRI without contrast [facility]19. VICTOR HUGO BEAUCHAMP PA-C [address] [place], [address], [facility] 01/21/2019 09:12:50 OBGyn Episode No OBEpisode recorded.
--- OUTSIDE RECORDS SUMMARY | 2025-03-02 08:21 | XMS_ITS | Encounter Summary ---
Author Organization Healthcare Address [address] [place] [address] Care Team Providers Care Bag Loader Name Role Phone Betsy Smith MD Primary Care Provider [phone] Encounter Details Date Type Department Care Team (Late Contact Info) Description 03/08/2023 Orders Only External Location [address] [place] [address] Amado Pope MD [address] [place] [id number] Social History Tobacco Use Types Packs/Day Years [...] [facility], [address] [place] [address] Griffin Bustillos MD [address] [place] [address] documented as of this encounter [...] on filedocumented in this encounter Care Teams Bag Loader Relationship Specialty Start Date End Date Betsy Smith MD [address] [facility] [facility] [address] [place] [address] PCP - General 06/13/23 documented as of this encounter
--- OUTSIDE RECORDS SUMMARY | 2025-03-02 08:21 | XMS_ITS | Encounter Summary ---
Author Organization Healthcare Address [address] [place] [address] Care Team Providers Care Polisher Hand Name Role Phone Betsy Smith MD Primary Care Provider [phone] Encounter Details Date Type Department Care Team (Late st Contact Info) Description 05/25/2023 Orders Only External Location [address] [place] [phone] Provider, External Social History Tobacco Use Types [...] Joint [address], [address] [place] [address] Griffin Bustillos MD [address] [place] [address] documented as of this encounter [...] on filedocumented in this encounter Care Teams Polisher Hand Relationship Specialty Start Date End Date Betsy Smith MD [address] [place] [address] [address] [place] [address] PCP - General 06/13/23 documented as of this encounter
--- OUTSIDE RECORDS SUMMARY | 2025-03-02 08:22 | XMS_ITS | Encounter Summary ---
Author Organization [facility] Address [address] [place] [address] Care Team Providers Care Third Helper Name Role Phone Betsy Smith MD Primary Care Provider [phone] Encounter Details Date Type Department Care Team (Late Contact Info) Description 09/30/2013 External CPT II VP [employer] [facility] [employer] Social History Tobacco Use [...] Department Care Team (Late Contact Info) Description 06/26/2025 3:00 PM EST Office Visit [facility] [address] [place] [phone] Betsy Smith MD [address] [place] [address] documented as of this encounter Visit Diagnoses Not on filedocumented in this encounter Care Teams Third Helper Relationship Specialty Start Date End Date Betsy Smith MD [address] [place] [address] PCP - General 02/08/15 documented as of this encounter
--- OUTSIDE RECORDS SUMMARY | 2025-03-02 08:22 | XMS_ITS | Encounter Summary ---
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 CALEB [phone] PATIENT IS REQUESTING THAT WE FAX THE PAPERWORK, ONCE COMPLETED, TO [phone] documented in this encounter Plan of Treatment Upcoming Encounters Date Type Department Care Team (Late st Contact Info) Description 06/26/2025 3:00 PM EST Office Visit [facility] [address] [place] [phone] Betsy Smith MD [address] [place] [id number] documented as of this encounter Visit Diagnoses Not on filedocumented in this encounter Additional Health Concerns Assessment Noted Time PHQ-2 Depression Total Score: 2 08/31/19 24 12:00 PM EDT documented as of this encounter Care Teams Utility Service Worker Relationship Specialty Start Date End Date Betsy Smith MD [address] [place] [address] PCP - General 02/08/15 documented as of this encounter
--- OUTSIDE RECORDS SUMMARY | 2025-03-02 08:22 | XMS_ITS | Patient Health Record ---
[facility] Address [address] [place] [id number] Care Team Providers Care Flexographic Press Operator Name Role Phone Serena Pope Primary Care Provider Elen Mckenna Unavailable [phone] Allergies No Known Allergies Reason For Referral [...] Vaccine Route Administration Date Status Comme nts COVID 19 Moderna Unknown 07/07/2020 Administered COVID 19 Moderna Unknown 08/04/2020 Administered COVID 19 Moderna Unknown 02/16/2021 Administered COVID 19 Moderna Unknown 12/07/2021 Administered Fluzone High Dose (65yr and older) Unknown 04/05/2022 Administered Fluzone High Dose (65yr and older) Unknown 03/15/2023 Administered Tetanus Tdap-Adacel (over 7yrs) IM Intramuscular 05/26/2020 Administered xFluzone High Dose-private (65yr&older) Unknown 03/06/2017 Administered xFluzone High Dose-private (65yr&older) Unknown 02/01/2018 Administered xFluzone High Dose-private (65yr&older) Unknown 03/10/2019 Administered Problems Problem Type SNOMED Code ICD Code Onset Dates Problem Status W/U Status Risk Notes Problem Essential hypertension (71575881) Essential hypertension (I10) Active confirmed Problem Slow transit constipation (98287323) Slow transit constipation (K59.01) Active confirmed Problem Gastroesophageal reflux disease without esophagitis (934634088) Gastroesophageal reflux disease without esophagitis (K21.9) Active confirmed Problem Sciatica (90641223) Left sided sciatica (M54.32) Active confirmed Problem Localized, primary osteoarthritis of the pelvic region and thigh (699195478) 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) Active confirmed Problem Dyslipidemia (832434393) Dyslipidemia (E78.5) Active confirmed Problem Type II diabetes mellitus without complication (224282590) Controlled type 2 diabetes mellitus without complication, without long-term current use of insulin (E11.9) Active confirmed Problem Chronic idiopathic constipation (42680959) Chronic idiopathic constipation (K59.04) Active confirmed Vital Signs Heart Rate 76 /min 09/25/2024 Blood pressure diastolic 72 mm Hg 09/25/2024 Height 65 in 09/25/2024 Blood pressure systolic 130 mm Hg 09/25/2024 Weight 148.8 lbs 09/25/2024 BMI 24.76 kg/m2 09/25/2024 Encounters Encounter Location Date Provider Diagnosis [facility] [address] [id number] 09/18/2024 Elen Mckenna Visit for suture rem oval Z48.02 ; Cellulitis of right finger L03.011 ; Closed fracture of nasal bone with routine healing, subsequent encounter S02.2XXD ; BMI 24.0-24.9, adult Z68.24 and Essential hypertension I10 [facility] [address] [id number] 09/25/2024 Elen Mckenna Cellulitis of right finger [...] Date MEDICARE PART B [address] [address] Valentinalisa [place] oliveros [id number] SUSHMA PACHECO Self - patient is the insured [facility] [address] [place] [address] [id number] SUSHMA PACHECO Self - patient is [...]
--- OUTSIDE RECORDS SUMMARY | 2025-03-02 08:23 | XMS_ITS | Encounter Summary ---
Author Organization 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 ezetimibe (Zetia) 10 MG tablet 90 tablet 3 Sig: Take 1 tablet by mouth Daily. When do you need the refill by: JOSE What details did the patient provide when requesting the medication: PATIENT HAS REQUESTED A NEW PRESCRIPTION FOR ABOVE MEDICATION PATIENT STATES DOCTOR NEEDS TO CALL [facility] AT [phone] Does the patient have less than a 3 day supply: [x] Yes [] No What is the patient's preferred pharmacy[facility] [place], [place] - [id number] AT [address] [facility] - [phone] [facility] [phone] FX documented in this encounter Plan of Treatment Upcoming Encounters Date Type Department Care Team (Late st Contact Info) Description 06/26/2025 3:00 PM EST Office Visit [facility] [address] [place] [phone] Betsy Smith MD [address] [place] [phone] documented as of this encounter Visit Diagnoses Diagnosis Hyperlipidemia Pure hypercholesterolemia documented in this encounter Care Teams Tin Container Straightener Relationship Specialty Start Date End Date Betsy Smith MD [address] [place] [id number] PCP - General 02/08/15 documented as of this encounter
--- OUTSIDE RECORDS SUMMARY | 2025-03-02 08:23 | XMS_ITS | Encounter Summary ---
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 Not on fi le documented as of this encounter Plan of Treatment Upcoming Encounters Date Type Department Care Team ( Contact Info) Description 06/26/2025 3:00 PM EST Office Visit [facility] [address] [place] [address] Betsy Smith MD [address] [place] [address] documented as of this encounter Visit Diagnoses Not on filedocumented in this encounter Additional Health Concerns Assessment Noted Time PHQ-2 Depression Total Score: 2 08/31/19 24 12:00 PM EDT documented as of this encounter Care Teams Small Wind Energy Installer Relationship Specialty Start Date End Date Betsy Smith MD [address] [place] [address] PCP - General 02/08/15 documented as of this encounter
[2025-03-02 11:13] LABS: Hemoglobin A1C 6.2 % (4.0-6.0)
[2025-03-02 11:31] LABS: Anion Gap 8.8 mEq/L (5-15); Blood Urea Nitrogen 21 mg/dl (7-17); Calcium 9.4 mg/dl (8.4-10.2); Carbon Dioxide 28 mmol/L (22.0-30.0); Chloride 95 mmol/L (98-107); Creatinine,Serum 1.00 mg/dl (0.52-1.04); Estimated Glomerular Filt Rate 52 ml/min (>60); GFR (African American) 63 ML/MIN (>60); Glucose 96 mg/dl (74-100); Potassium 4.8 mmoL/L (3.5-5.1); Sodium 127 mmol/L (136-145)
== END 2025-03-02 23:59 | disposition home or self-care (01) ==
LOC: LAB 08:17
PROVIDERS: PCP Family Medicine; Visit Provider Internal Medicine
DX: E11.22 Type 2 diabetes mellitus with diabetic chronic kidney disease (principal); N18.32 Chronic kidney disease, stage 3b; E87.1 Hypo-osmolality and hyponatremia
CPT/HCPCS: 36415; 80048; 83036

== ENCOUNTER 2025-03-25 11:00 | Outpatient (RCR) | payer MEDICARE, BC, SELFPAY | END 2025-03-25 23:59 | disposition home or self-care (01) | LOC: PT 11:00 | PROVIDERS: PCP Internal Medicine; Visit Provider Internal Medicine | DX: R29.6 Repeated falls (principal); R26.81 Unsteadiness on feet | CPT/HCPCS: 97112; 97530 ==

== ENCOUNTER 2025-04-13 22:32 | Emergency (ER) | payer MEDICARE, BC, SELFPAY ==
--- OUTSIDE RECORDS SUMMARY | 2025-02-13 12:45 | XMS_ITS | Encounter Summary ---
Author Organization [facility] Address [address] [place] [address] Care Team Providers Care Oil Field Equipment Mechanic Name Role Phone Betsy Smith MD Primary Care Provider [phone] Reason for Visit * Reason Comments Hypertension Encounter Details Date Type Department Care Team (Late st Contact Info) Description 02/13/2025 1:45 PM EDT Office Visit [facility] [address] [place] [phone] Betsy Smith MD [address] [place] [address] Hypertension (Primary Dx); Hyponatremia; Stage 3a chronic kidney disease; Type 2 diabetes mellitus with stage 3a chronic kidney disease, without long-term current use of insulin; Need for COVID-19 vaccine; Need for influenza vaccination; Hyperlipidemia; B12 deficiency Social History Tobacco Use Types Packs/Day [...] Reading Time Taken Comments Blood Pressure 126/70 02/13/2025 1:31 PM EDT Pulse 80 02/13/2025 1:31 PM EDT Temperature - - Respiratory Rate - - Oxygen Saturation 96% 02/13/2025 1:31 PM EDT Inhaled Oxygen Concentration - - Weight 66.2 kg (146 lb) 02/13/2025 1:31 PM EDT Height 160.7 cm (5' 3.25 ) 02/13/2025 1:31 PM ED T Body Mass Index 25.66 02/13/2025 1:31 PM EDT documented in this encounter Progress Notes * Betsy Smith MD - 02/13/2025 9:37 PM EDTAssociated Problem(s): Type 2 diabetes mellitus with stage 3b chronic kidney disease, without long-term current use of insulin F/u A1C in 3 mos * Betsy Smith MD - 02/13/2025 9:37 PM EDTAssociated Problem(s): CKD (chronic kidney disease), stage III Commended patient on improved renal function, back to nl Cr 0.9, GFR 72; encouraged maintaining adequate daily water intake - advising changing Body [place] Sportswater to 1/2 water and 1/2 Liquid IV due to persistent hyponatremia * Betsy Smith MD - 02/13/2025 9:32 PM EDTAssociated Problem(s): Hyponatremia Persistent hyponatremia Na 128; it looks like her clear [place] Sportwater contains no sodium; advised 64 oz water per day, recommend 1/2 water and 1/2 Liquid IV; f/u BMP in 2 weeks * Betsy Smith MD - 02/13/2025 9:31 PM EDTAssociated Problem(s): Hypertension BP stable, at goal 126/70; cont irbesartan 75mg QD #90, 1RF * Betsy Smith MD - 02/13/2025 1:45 PM EDT Chief Complaint Patient presents with Hypertension History of Present Illness 89 y.o. female, accompanied by her son Lucy, presents for BP f/u after addition of irbesartan. Tolerating med without s/e. Has not been checking any BPs at home. Has been 2 large bottles of clear Body [place] each day. Ingredients: reverse osmosis water, potassium bicarb, CaCl, and MgCl. No sodium. Also taking Glucerna shakes. Reports dry mouth in the morning. Wondering whether due to new BP medication. Feels PT is really helping; going to PT for leg strength and working on standing up from chair without pushin off with arm rests. Review of Systems Denies headaches, CP, SOB. ROS (+) for leg weakness, needing to push up to stand up from chair. ROS(+) for dry mouth only in the morning upon awakening. All other ROS reviewed and negative. Current Outpatient Medications: acetaminophen 500 MG prn alendronate 70 MG weekly Ca Phosphate-Cholecalciferol BID cholecalciferol (VITAMIN D3) 1000 units QD clobetasol propionate (TEMOVATE) 0.05 % cream AD esomeprazole 20 MG QD FIBER COMPLETE QD irbesartan 75 MG QD Ketotifen Fumarate (ZADITOR) 0.035 % solution BID ICAPS AREDS 2 QD oxybutynin XL 10 MG QD VITALS: BP 126/70 Pulse 80 Ht 160.7 cm (63.25 ) Wt 66.2 kg (146 lb) SpO2 96% BMI 25.66 kg/m?? Physical Exam Vitals and nursing note reviewed. Constitutional: General: She is not in acute distress. Appearance: Normal appearance. She is not ill-appearing. Eyes: Extraocular Movements: Extraocular movements intact. Conjunctiva/sclera: Conjunctivae normal. Cardiovascular: Rate and Rhythm: Normal rate and regular rhythm. Heart sounds: Normal heart sounds. Pulmonary: Effort: Pulmonary effort is normal. No respiratory distress. Breath sounds: No wheezing or rales. Neurological: Mental Status: She is alert. Mental [...] 10,231,639 Expiration Date 05/23/2026 12/03/24 A1C 5.7, Cr 1.1, GFR 47, Na 129 02/09/25 BMP with Na 128, Cr 0.9, GFR 72 ASSESSMENT/PLAN Diagnoses and all orders for this visit: 1. Hypertension (Primary) Assessment & Plan: BP stable, at goal 126/70; cont irbesartan 75mg QD #90, 1RF Orders: - irbesartan (AVAPRO) 75 MG tablet; Take 1 tablet by mouth Daily. Dispense: 90 tablet; Refill: 1 2. Hyponatremia Assessment & Plan: Persistent hyponatremia Na 128; it looks like her clear [place] Sportwater contains no sodium; advised 64 oz water per day, recommend 1/2 water and 1/2 Liquid IV; f/u BMP in 2 weeks Orders: - Basic Metabolic Panel; Future 3. Stage 3a chronic kidney disease Assessment & Plan: Commended patient on improved renal function, back to nl Cr 0.9, GFR 72; encouraged maintaining adequate daily water intake - advising changing Body [place] Sportswater to 1/2 water and 1/2 Liquid IV due to persistent hyponatremia 4. Type 2 diabetes mellitus with stage 3a chronic kidney disease, without long- term current use of insulin Assessment & Plan: F/u A1C in 3 mos Orders: - Hemoglobin A1c; Future 5. Need for COVID-19 vaccine - Covid-19 Vaccine 12+Yrs (Moderna SPIKEVAX 3012-0375) 6. Need for influenza vaccination - Fluzone High-Dose 65+yrs 7. Hyperlipidemia 8. B12 deficiency 7. Leg weakness - fall precautions; ongoing PT; reviewed importance of HEP 8. Walks with cane FOLLOW-UP Health maintenance - rec flu and COVID vacc, counseling given (both done today) BMP in 2 wks (order given to patient to obtain in [place]) RTC for next wellness 06/26/25; fasting labs prior to appt (CBC, CMP, TSH, lipids, UA/micro, A1C, microalb/Cr, vit D, B12) +MMSE Electronically signed by: Betsy Smith MD, FACP 02/13/2025 documented in this encounter Plan of Treatment Upcoming Encounters Date Type Department Care Team (Late st Contact Info) Description 06/26/2025 3:00 PM EST Office Visit [facility] [address] [place] [phone] Betsy Smith MD [address] [place] [phone] Scheduled Orders Name Type Priority Associated Diagnoses Orde r Schedule Basic Metabolic Panel Lab Routine Hyponatremia Expected: 06/16/2025 (Approximate) Hemoglobin A1c Lab Routine Type 2 diabetes mellitus with stage 3a chronic kidney disease, without long-term current use of insulin Expected: 06/16/2025 (Approximate) documented as of this encounter Visit Diagnoses Diagnosis Hypertension- Primary Unspecified essential hypertension Hyponatremia Hyposmolality and/or hyponatremia Stage 3a chronic kidney disease Type 2 diabetes mellitus with stage 3a chronic kidney disease, without long-term current use of insulin Need for COVID-19 vaccine Need for influenza vaccination Need for prophylactic vaccination and inoculation against influenza Hyperlipidemia Pure hypercholesterolemia B12 deficiency documented in this encounter Additional Health Concerns Assessment Noted Time PHQ-2 Depression Total Score: 2 08/31/19 24 12:00 PM EDT documented as of this encounter Care Teams Oil Field Equipment Mechanic Relationship Specialty Start Date End Date Betsy Smith MD [address] [place] [phone] PCP - General 02/08/15 documented as of this encounter
--- OUTSIDE RECORDS SUMMARY | 2025-03-31 13:18 | XMS_ITS | Encounter Summary ---
Author Organization [facility] Address [address] [place] [address] Care Team Providers Care Belling Machine Operator Name Role Phone Betsy Smith MD Primary Care Provider [phone] Encounter Details Date Type Department Care Team (Latest Contact Info) Description 03/31/2025 1:18 PM EST - 03/31/2025 11:59 PM EST Hospital Encounter Medical Office Building Radiology [address] [place] [address] Hip pain, left Discharge Disposition: [...] drink first t dahlia in the morning (EYE-POSTAL CARRIER) to steady your nerves or to get [...] (one) time per week. Takes on Sunday alendronate (Fosamax) 70 MG/75ML solution Take 75 mL by mouth every 7 days. Take in the morning with a full glass of water, on an empty stomach, and do not take anything else by mouth or lie down for the next 30 min. CALCIUM-VITAMIN D PO Take 1 tablet by mouth 2 (two) times a day. cholecalciferol (Vitamin D3) 25 MCG (1000 UT) tablet Take 1 tablet by mouth. cyanocobalamin 1000 MCG tablet Take 1 tablet by mouth 1 (one) time each day at the same time. ezetimibe (Zetia) 10 MG tablet Take 1 tablet (10 mg) by mouth Daily. ezetimibe (Zetia) 10 MG tablet Take 1 tablet by mouth daily. fexofenadine (Meena) 180 MG tablet Take 1 tablet (180 mg) by mouth 1 (one) time each day. HYDROcodone-aceta minophen (Benedicta) 5-325 MG tablet Take 1 tablet (5 mg of hydrocodone) by mouth every 6 (six) hours if needed for severe pain. 09/25/2023 irbesartan (Avapro) 75 MG tablet Take 1 tablet by mouth nightly. Melatonin [address] 3 mg under the tongue 1 (one) time each day. metFORMIN XR (Glucophage-XR) 750 MG 24 hr tablet Take 2 tablets (1,500 mg) by mouth 1 (one) time each day. 06/05/2023 omeprazole (PriLOSEC) [address] capsule Take 1 capsule (40 mg) by mouth 1 (one) time each day if needed. oxybutynin XL (Ditropan-XL) 10 MG 24 hr tablet Take 1 tablet by mouth daily. Do not crush, chew, or split. documented as of this encounter Plan of Treatment Not on file documented as of this encounter Procedures Procedure Name Priority Date/Time Associated Diagnosis Comments XR HIP LEFT 2 OR 3 VIEWS Routine 03/31/2025 1:30 PM EST Hip pain, left documented in this encounter Results * 1-Year Post-Op: XR Hip (AP Pelvis Standing / Cross Table Lateral) (03/31/2025 1:30 PM EST) Anatomical Region Laterality Modality Lower Extremities, Hip Left Digital R adiography Impressions 03/31/2025 2:32 PM EST Postsurgical changes above described, without obvious hardware complications. CRITICAL RESULT: No. COMMUNICATION: Per this written report. Drafted by Roney Rodriguez MD on 03/31/2025 2:30 PM Final report signed by Roney Rodriguez MD on 03/31/2025 2:32 PM Narrative 03/31/2025 2:32 PM EST CLINICAL INDICATION: Post-Op TECHNIQUE: XR HIP LEFT 2 OR 3 VIEWS COMPARISON: February 26 2024 FINDINGS: Overlying bowel gas and content limit the evaluation of the pelvis. Diffuse osteopenia. Redemonstration of left total hip replacement and cerclage wire in the proximal femur. No hardware complications. Heterotopic ossifications adjacent to the left hip. Similar osteoarthritis in the right hip partially imaged. No acute fractures or dislocations. Procedure Note Roney Mendez MD - 03/31/2025 CLINICAL INDICATION: Post-Op TECHNIQUE: XR HIP LEFT 2 OR 3 VIEWS COMPARISON: February 26 2024 FINDINGS: Overlying bowel gas and content limit the evaluation of the pelvis. Diffuse osteopenia. Redemonstration of left total hip replacement and cerclage wire in theproximal femur. No hardware complications. Heterotopic ossifications adjacent to the left hip. Similar osteoarthritis in the right hip partially imaged. No acute fractures or dislocations. IMPRESSION: Postsurgical changes above described, without obvious hardwarecomplications. CRITICAL RESULT: No. COMMUNICATION: Per this written report. Drafted by Roney Rodriguez MD on 03/31/2025 2:30 PM Final report signed by Roney Rodriguez MD on 52:32 PM Griffin Bustillos MD IMG XR PROCEDURES Final R esult documented in this encounter Visit Diagnoses Diagnosis Hip pain, left Pain in joint, pelvic region and thigh documented in this encounter Additional Health Concerns Assessment Noted Time A fall risk assessment has been complete d for the patient 03/31/2025 1:50 PM EST A Body Mass Index follow-up plan has been documented for the patient 03/31/2025 3:15 PM EST documented as of this encounter Care Teams Belling Machine Operator Relationship Specialty Start Date End Date Betsy Smith MD [facility] [address] [place] [address] PCP - General 06/13/23 documented as of this encounter
--- OUTSIDE RECORDS SUMMARY | 2025-03-31 13:40 | XMS_ITS | Encounter Summary ---
Author Organization [facility] Address [address] [place] [address] Care Team Providers Care Correctional Guard Name Role Phone Betsy Smith MD Primary Care Provider [phone] Reason for Visit * Reason Comments Follow-up Encounter Details Date Type Department Care Team ([facility] Contact Info) Description 03/31/2025 1:40 PM EST Office Visit Medical Office Building [facility] [address], [address] [place] [address] Griffin Bustillos MD [address] [place] [address] Hip pain, left (Primary Dx) [...] drink first t dahlia in the morning (EYE-ADJUSTMENT SUPERVISOR) to steady your nerves or to [...] Sign Reading Time Taken Comments Blood Pressure 157/79 03/31/2025 1:50 PM EST Pulse 70 03/31/2025 1:50 PM EST Temperature - - Respiratory Rate 18 03/31/2025 1:50 PM EST Oxygen Saturation 97% 03/31/2025 1:50 PM EST Inhaled Oxygen Concentration - - Weight 67.3 kg (148 lb 5.9 oz) 03/31/2025 1:50 P M EST Height 172.7 cm (5' 8 ) 03/31/2025 1:50 PM EST Body Mass Index 22.56 03/31/2025 1:50 PM EST documented in this encounter Miscellaneous Notes * Progress Notes - Griffin Bustillos MD - 03/31/2025 1:40 PM EST Interval History: Patient returns to clinic for her postoperative check status post left total arthroplasty 09/19/2023. She was doing very well. She continues to ambulate with a cane although state she uses it mostly for confidence and reassurance. She presents today with her son. She states she was doing very well. She has no pain. She was returned to going to [facility] in his very happy with the [...] gone very happy. We will see her 5 year postop. documented in this encounter Plan of Treatment Not on file documented as of this encounter Results * 1-Year Post-Op: XR [...] documented as of this encounter Care Teams Correctional Guard Relationship Specialty Start Date End Date Betsy Smith MD [address] [facility] [address] [place] [address] PCP - General 06/13/23 documented as of this encounter
--- NOTE | 2025-04-13 22:45 | CT_ITS ---
PROCEDURE INFORMATION: Exam: CT Cervical Spine Without Contrast Exam date and time: 04/13/2025 11:10 PM Age: 89 years old Clinical indication: Injury or trauma; Fall; Additional info: Fall from standing TECHNIQUE: Imaging protocol: Computed tomography of the cervical spine without contrast. Radiation optimization: All CT scans at this facility use at least one of these dose optimization techniques: automated exposure control; mA and/or kV adjustment per patient size (includes targeted exams where dose is matched to clinical indication); or iterative reconstruction. COMPARISON: CT CERVICAL SPINE WO CON 09/11/2024 4:29 PM FINDINGS: Bones: No acute fracture. Normal alignment. Diffuse mild degenerative disc disease and significant facet arthropathy. No significant disc bulge or herniation. No severe spinal canal stenosis. There is prominent bony foraminal stenosis at C5-C6. Lungs: Lung apices are normal. Soft tissues: Unremarkable. IMPRESSION: No acute cervical spine fracture.
--- NOTE | 2025-04-13 22:45 | CT_ITS ---
PROCEDURE INFORMATION: Exam: CT Head Without Contrast Exam date and time: 04/13/2025 11:05 PM Age: 89 years old Clinical indication: Injury or trauma; Fall; Inj to nose; Additional info: Fall from standing TECHNIQUE: Imaging protocol: Computed tomography of the head without contrast. Radiation optimization: All CT scans at this facility use at least one of these dose optimization techniques: automated exposure control; mA and/or kV adjustment per patient size (includes targeted exams where dose is matched to clinical indication); or iterative reconstruction. COMPARISON: CT HEAD/BRAIN WO CON 09/11/2024 4:29 PM FINDINGS: Brain: Prick accuracy. No hemorrhage. There is prominent periventricular white matter hypodensity consistent with chronic small vessel disease. No mass effect. Cerebral ventricles: No ventriculomegaly. Paranasal sinuses: Visualized sinuses are unremarkable. No fluid levels. Mastoid air cells: Visualized mastoid air cells are well aerated. Orbital cavities: The orbital contents are symmetric and normal. Bones: There is an old depressed left nasal bone fracture. Soft tissues: Unremarkable. IMPRESSION: No acute intracranial abnormality.
--- NOTE | 2025-04-13 22:45 | HMH.EDGENADL ---
Discharge Plan Disposition Patient Disposition: Home, Self-Care Condition: Good Prescriptions Prescriptions: No Action pioglitazone-metformin 15-1,000 mg tablet, ER multiphase 24 hr 1 tab PO DAILY ranitidine HCl 300 mg capsule 300 mg PO DAILY glucosamine-chondroitin [Osteo Bi-Flex] 250-200 mg tablet 2 tab PO QPC meclizine 25 mg tablet 25 mg PO BID PRN (Reason: dizziness) Qty: 60 0RF hydrocodone-acetaminophen 5-325 mg Tablet 1 tab PO Q6HP PRN (Reason: Mild To Moderate Pain (1-6)) 3 Days Qty: 12 0RF meloxicam 15 mg tablet 15 mg PO DAILY 30 Days Qty: 30 0RF ezetimibe 10 mg tablet 10 mg PO DAILY 30 Days Qty: 30 0RF amlodipine-atorvastatin 5-40 mg tablet 1 tab PO DAILY 30 Days Qty: 30 0RF Referrals Follow up/Referrals: Betsy YEE [Primary Care Provider, Medical] - See instructions Activity Restrictions/Add. Instructions Additional Instructions/Restrictions: The stitches will dissolve on their own. Keep the wound clean with soap and water. Return to the emergency department for any drainage that looks like pus, severe swelling severe pain or if you have any other acute concerns Clinical Impressions Clinical Impression: Laceration Print Language Print Language: Citizen Of [place] Discharge ED Provider: Diane Prather Adult HPI General Chief complaint: Fall Stated complaint: AO FAll 04/13 Facial Injury/ Nose Time Seen by Provider: 04/13/25 22:37 History of Present Illness HPI narrative: Patient is an 89-year-old female with a past medical history of a hip replacement, diabetes who presented to the emergency department after ground-level fall. Patient states that she was at [facility] and if she does not take enough time to stand up her legs will get numb. Patient states that she stood up too quickly and she fell onto her face. Patient did not lose consciousness. Patient is not complaining of a headache or neck pain. Patient denies any numbness or weakness. Patient denies any chest pain abdominal pain numbness and weakness in her extremities. Patient reports that she noticed that her nose was bleeding. Patient states that she did break her nose less than a year ago but did not have any surgical intervention. Patient is unsure when her last tetanus shot was. Related Data Home Medications ?Medication ?Instructions ?Recorded ?Confirmed glucosamine-chondroitin 250 mg-200 2 tab PO QPC 10/21/18 08/19/24 mg tablet (Osteo Bi-Flex) pioglitazone 15 mg-metformin ER 1 tab PO DAILY 10/21/18 08/19/24 1,000 mg tablet,extend release 24hr mp ranitidine HCl 300 mg capsule 300 mg PO DAILY 10/21/18 08/19/24 Previous Rx's ?Medication ?Instructions ?Recorded meclizine 25 mg tablet 25 mg PO BID PRN dizziness #60 tabs 05/10/20 amlodipine 5 mg-atorvastatin 40 mg 1 tab PO DAILY 30 days #30 tabs 06/17/23 tablet ezetimibe 10 mg tablet 10 mg PO DAILY 30 days #30 tabs 06/17/23 hydrocodone 5 mg-acetaminophen 325 1 tab PO Q6HP PRN Mild To Moderate 06/17/23 mg tablet Pain (1-6) 3 days #12 tabs meloxicam 15 mg tablet 15 mg PO DAILY 30 days #30 tabs 06/17/23 Allergies Allergy/AdvReac Type Severity Reaction Status Date / Time No Known Allergies Allergy Verified 08/19/24 13:36 [facility] Disclaimer: The information contained in this section may have been updated after the patient was seen, as this information can be updated by other users. Medical History DM type 2 (diabetes mellitus, type 2) Hypertension High cholesterol Family History Other No significant family history Social History Smoking Status: Never smoker alcohol intake: never substance use type: denies use current occupational status: previously employed and retired Travel in the last 8 weeks?: None household members: other housing: house Have you lived/traveled outside US in past 30 days?: No Contact w/someone who lives/traveled outside US past 30 days?: No Exposure to someone with infectious disease in past 14 days?: No Do you have a fever (greater than 100.4 F or 38 C)?: No Have you tested positive for COVID-19?: No Exposed to someone with COVID-19 in past 14 days?: No Do you have a sore throat?: No Do you have a cough?: No Do you have any weakness?: No Do you have any diarrhea?: No Are you experiencing any unusual bleeding?: No Do you have any muscle aches/pain?: No Do you have any abdominal pain?: No Are you experiencing loss of taste or smell?: No Other Medical History Have you received the Flu Vaccine for this season: No Have you received the Pneumonia Vaccine: No ROS Obtained: Yes All systems reviewed & no additional complaints except as documented and Yes Systems reviewed as appropriate & no additional complaints except as documented Physical Exam General General appearance: alert and in no apparent distress Head Head exam: atraumatic, normocephalic and normal inspection Eye Eye exam: Present normal appearance, PERRL and EOMI; Absent scleral icterus ENT ENT exam: Present normal exam, normal external ear exam and other (laceration to the nasal bridge, minimal tenderness) Neck Neck exam: Present normal inspection and full ROM; Absent tenderness (No cervical spine tenderness) Chest Chest inspection: Present normal inspection and symmetric chest wall rise Respiratory Respiratory exam: Present normal lung sounds bilaterally; Absent respiratory distress or wheezes Cardiovascular Cardiovascular exam: Present regular rate, normal rhythm and normal heart sounds Abdominal Exam Abdominal exam: Present soft and distention; Absent tenderness, guarding or rebound Extremities Exam Extremities exam: Present normal inspection and full ROM Back Exam Back exam: Present normal inspection and full ROM Neurological Exam Neurological exam: Present alert, oriented X3, CN II-XII intact, normal gait and reflexes normal; Absent motor sensory deficit Psychiatric Psychiatric exam: Present normal affect and normal mood Skin Skin exam: Present warm and dry Medical Decision Making Medical Records Medical records reviewed: Yes I reviewed the patient's medical records. Screening: Per USPSTF and CDC recommendations, given the prevalence of disease in our region, it is our hospital?s policy to screen for HIV and viral Hepatitis for all patients aged 18 and over and those with ongoing risk factors. Adama Inquiry Pt receiving controlled substance: No Vital Signs: 04/13/25 22:47 Temperature 98.2 F Temperature Source Oral Pulse Rate [Right] 71 Respiratory Rate 22 Blood Pressure [Right Arm] 163/87 H Blood Pressure Mean [Right Arm] 112 02 Sat by Pulse Oximetry 100 Oxygen Delivery Method Room Air Lab Data Lab results reviewed: Yes I reviewed the patient's lab results. Orders (Tests/Meds): ED MEDICATIONS Discontinued Medications Generic Name Dose Route Start Last Admin Trade Name Freq PRN Reason Stop Dose Admin Cocaine HCl 1 ml 04/13/25 22:52 04/13/25 23:19 Cocaine 4% Topical Soln 4ml Bottle TP 04/13/25 22:53 1 ml ONCE ONE Administration Epinephrine HCl 1 mg 04/13/25 22:52 04/13/25 23:19 Epinephrine 1 Mg/Ml Vial TP 04/13/25 22:53 1 mg ONCE ONE Administration Lidocaine HCl 1 ml 04/13/25 22:52 04/13/25 23:18 Lidocaine 2% Urojet 10ml TP 04/13/25 22:53 1 ml ONCE ONE Administration Tetanus/Reduced Diphtheria/Acell Pertussis 0.5 ml 04/13/25 22:52 Tet/Diphth/Pert-Adult 0.5ml Syringe IM 04/13/25 22:53 .ONCE ONE ORDERS Category Date Time Status CT cervical spine wo con Stat Cat Scan 04/13/25 22:[address] facial bones wo con Stat Cat Scan 04/13/25 22:[address] head/brain wo con Stat Cat Scan 04/13/25 22:45 Completed EKG Request [ECG Request] Stat Y 04/13/25 22:39 Stop Req Medical Decision Narrative: Patient is an 89-year-old female with no significant past medical history who presented to the emergency department after ground-level fall. On arrival, patient was hemodynamically stable with unremarkable vital signs. Differential includes but not limited to: Intracranial pathology, cervical spine fracture, laceration, facial fracture, amongst others. Patient CT head, CT face and CT cervical spine reviewed and interpreted by myself and showed no acute intracranial pathology, cervical spine fracture or facial fracture. Patient's facial laceration was repaired at bedside with absorbable stitches and was cleaned extensively. Patient was discharged home in stable condition. Procedures Laceration Laceration 1: Site: face Size (cm): 2 Description: linear Depth: simple, single layer Pre-repair: wound explored and irrigated extensively Skin layer closed with: other (5-0 absorbing gut) Size (cm): 5-0 Number of sutures: 8 Technique: simple, interrupted Critical Care Critical Care Time Critical Care Time: No
[2025-04-13 22:47] VITALS: BP 163/87; PULSE 71; RESP 22; TEMP 36.8; O2SAT 100; BMI 22.5
--- NOTE | 2025-04-13 22:52 | CT_ITS ---
PROCEDURE INFORMATION: Exam: CT Maxillofacial Without Contrast Exam date and time: 04/13/2025 11:07 PM Age: 89 years old Clinical indication: Injury or trauma; Fall; Additional info: Nose laceration TECHNIQUE: Imaging protocol: Computed tomography of the face without contrast. Radiation optimization: All CT scans at this facility use at least one of these dose optimization techniques: automated exposure control; mA and/or kV adjustment per patient size (includes targeted exams where dose is matched to clinical indication); or iterative reconstruction. COMPARISON: 1. CT HEAD/BRAIN WO CON 04/13/2025 11:[address] HEAD/BRAIN WO CON 09/11/2024 4:29 PM FINDINGS: Paranasal sinuses: No air-fluid levels. Orbital cavities: Orbits are normal. Globes are unremarkable. Bones: There is an old depressed left nasal bone fracture. No acute facial bone fracture is evident. Soft tissues: Unremarkable. IMPRESSION: No acute findings.
--- OUTSIDE RECORDS SUMMARY | 2025-04-13 22:56 | XMS_ITS | Encounter Summary ---
Author Organization Healthcare Address [address] [place] [address] Care Team Providers Care Associate Professor Of Counseling Name Role Phone Betsy Smith MD Primary Care Provider [phone] Encounter Details Date Type Department Care Team ([facility] st Contact Info) Description 02/15/2023 Orders Only External Location [address] [place] [address] Elen Mckenna PA [address] [place] [address] Social History Tobacco Use Types Packs/Day Years [...] Radiographic Jennifer ging 02/15/2023 5:12 PM EDT Elen LEMON IMG XR PROCEDURES Final Result documented in this encounter Visit Diagnoses Not on filedocumented in this encounter Care Teams Associate Professor Of Counseling Relationship Specialty Start Date End Date Betsy Smith MD [address] [place] [address] [address] [place] [address] PCP - General 06/13/23 documented as of this encounter
--- OUTSIDE RECORDS SUMMARY | 2025-04-13 22:56 | XMS_ITS | Encounter Summary ---
Author Organization Healthcare Address [address] [place] [address] Care Team Providers Care Retouching Operator Name Role Phone Betsy Smith MD Primary Care Provider [phone] Encounter Details Date Type Department Care Team ([facility] st Contact Info) Description 03/08/2023 Orders Only External Location [address] [place] [address] Amado Pope MD [address] [place] [address] Social History Tobacco Use Types Packs/Day Years [...] on filedocumented in this encounter Care Teams Retouching Operator Relationship Specialty Start Date End Date Betsy Smith MD [address] [facility] [address] [place] [address] PCP - General 06/13/23 documented as of this encounter
--- OUTSIDE RECORDS SUMMARY | 2025-04-13 22:56 | XMS_ITS | Encounter Summary ---
Author Organization Healthcare Address [address] [place] [address] Care Team Providers Care Painter Ski Edge Name Role Phone Betsy Smith MD Primary Care Provider [phone] Encounter Details Date Type Department Care Team (Latest Contact Info) Description 03/31/2025 Travel Social History Tobacco Use Types Packs/Day [...] drink first t dahlia in the morning (EYE-TOUR NARRATOR) to steady your nerves or to get [...] on file documented as of this encounter Visit Diagnoses Not on filedocumented in this encounter Additional Health Concerns Assessment Noted Time A fall risk assessment has been complete d for the patient 03/31/2025 1:50 PM EST A Body Mass Index follow-up plan has been documented for the patient 03/31/2025 3:15 PM EST documented as of this encounter Care Teams Painter Ski Edge Relationship Specialty Start Date End Date Betsy Smith MD [address] [place] [address] [address] [place] [address] PCP - General 06/13/23 documented as of this encounter
--- OUTSIDE RECORDS SUMMARY | 2025-04-13 22:56 | XMS_ITS | Clinical Summary ---
Author Organization [facility] Address [address] [place] [address] Care Team Providers Care Executive Vice President And Chief Financial Officer Name Role Phone Betsy Smith MD Primary Care Provider [phone] Allergies Active Allergy Reactions Criticality Noted Date Comments Linaclotide Diarrhea Low 08/29/2016 Medications metFORMIN XR (Glucophage-XR) 750 MG 24 hr tablet Take 2 tablets (1,500 mg) by mouth 1 (one) time each day. 4 Active alendronate (Fosamax) 70 MG tablet Take [...] mg) by mouth every 6 (six) hours. 4 Active Additional Information Patient not taking.Reported on 03/31/2025 HYDROcodone-acet aminophen (Central) 5-325 MG tablet Take 1 tablet (5 mg of hydrocodone) by mouth every 6 (six) hours if needed for severe pain. Active Additional Information Patient not taking.Reported on 03/31/2025 Melatonin [address] 3 mg under the tongue 1 (one) time each day. Active cholecalciferol (Vitamin D3) 25 MCG (1000 UT) tablet Take 1 tablet by mouth. Active cyanocobalamin 1000 MCG tablet Take 1 tablet by mouth 1 (one) time each day at the same time. Active irbesartan (Avapro) 75 MG tablet Take 1 tablet by mouth nightly. Active oxybutynin XL (Ditropan-XL) 10 MG 24 hr tablet Take 1 tablet by mouth daily. Do not crush, chew, or split. Active ezetimibe (Zetia) 10 MG tablet Take 1 tablet by mouth daily. Active alendronate (Fosamax) 70 MG/75ML solution Take 75 mL by mouth every 7 days. Take in the morning with a full glass of water, on an empty stomach, and do not take anything else by mouth or lie down for the next 30 min. Active Active Problems Problem Noted Date Diagnosed Date Hip pain, left 08/14/2023 Encounters Date Type Department Care Team Description 03/31/2025 1:40 PM EST Office Visit Medical Office Building [facility] [address] [facility], [address] [place] [address] Griffin Bustillos MD Hip pain, left (Primary Dx) 03/31/2025 1:18 PM EST - 03/31/2025 11:59 PM EST Hospital Encounter Medical Office Building Radiology [address] [place] [address] Hip pain, left Discharge Disposition: Home or Self Care 03/31/2025 Travel from Last 3 Months Family History [...] drink first t dahlia in the morning (EYE-PRODUCT SUPPORT CONSULTANT) to steady your nerves or to get [...] Pulse 70 03/31/2025 1:50 PM EST Temperature 36.7 C (98.1 F) 09/17/2024 2:41 PM EDT Respiratory Rate 18 03/31/2025 1:50 PM EST Oxygen Saturation 97% 03/31/2025 1:50 PM EST Inhaled Oxygen Concentration - - Weight 67.3 kg (148 lb 5.9 oz) 03/31/2025 1:50 P M EST Height 172.7 cm (5' 8 ) 03/31/2025 1:50 PM EST Body Mass Index 22.56 03/31/2025 1:50 PM EST Plan of Treatment Health Maintenance Due Date Last Done Comments Dental Oral Exam 1935 Dental Prophylaxis 1937 Dental X-Ray: Bitewings 1937 Dental X-Ray: Full Mouth 1937 [facility]-Depression Screening 1937 [facility]-Infant/Child/Adol SDOH Screenings 1937 [facility]- SDOH Screenings 1955 [facility]-Adult SDOH Screenings 1955 [facility]-Zoster Vaccines (2 of 3) 11/19/2008 09/24/2008 [facility]-Bone Density Scan 11/17/2023 11/16/2022 [facility]-Medicare Annual Wellness (AWV) 06/05/2024 06/05/2023 [id number] Vaccine (9 - Moderna risk season) 2025 02/13/2025, 01/18/2024, 06/28/2023, Additional history exists [facility]-Diabetes: Hemoglobin A1C 09/08/2025 09/08/2024, 05/15/2024, 03/28/2024, Additional history exists [facility]-DTaP,Tdap,and Td Vaccines (3 - Td or Tdap) 09/11/2034 09/11/2024, 05/26/2020 [facility]-Pneumococcal Vaccine: 50+ Years Completed 02/12/2015, 03/30/2010 [facility]-Hepatitis A Vaccines Aged Out 08/16/2018, 12/2017 No longer eligible based on patient's age to complete this topic [facility]-RSV Vaccine: 60+ Years or Completed 07/02/2023 [facility]-Influenza Vaccine Completed 02/13/2025 , 01/18/2024, 03/15/2023, Additional history exists HPV Vaccines Aged Out No longer eligi [...] this topic Medical Devices Implanted Type Area Agile Qa Tester Device Identifier Shelf Expiration Date Model / Serial / Lot Chg Cable D-M 2.0mm Beaded Set - [id number] Implanted:Qty: 1 on 09/19/2023 by Griffin Bustillos MD at [facility] Cable Left: Hip [employer] ([facility])-[id number] 12/18/2027 [id number] / / [id number] Shell Trident Ii Cluster 52mm - [id number] Implanted:Qty: 1 on 09/19/2023 by Griffin Bustillos MD at [facility] Hip Left: Hip [employer] [facility][id number] 08/21/2028 [id number] / / [id number] Hip Size 6 Accolade Ii 127 Deg - [id number] Implanted:Qty: 1 on 09/19/2023 by Griffin Bustillos MD at [facility] Hip Left: Hip [employer] ([facility])-[id number] 68 04/04/2027 [id number] / / [id number] Chg Head Delta V-40 Ceramic 36 - [id number] Implanted:Qty: 1 on 09/19/2023 by Griffin Bustillos MD at [facility] Hip Left: Hip [employer] ([facility])-[id number] 68 03/26/2028 [id number] / / [id number] Liner Trident X3 10deg 36 Mm Id 5.9 Mm - [id number] Implanted:Qty: 1 on 09/19/2023 by Griffin Bustillos MD at [facility] Liner Left: Hip [employer] ([facility])-[id number] 06/30/2028 [id number] / / [id number] Screw 6.5mm Trident Low Profile Hex 25mm - [id number] Implanted:Qty: 1 on 09/19/2023 by Griffin Bustillos MD at [facility] Screw Left: Hip [employer] ([facility])-[id number] 07/11/2028 [id number] / / [id number] Procedures Procedure Name Priority Date/Time Associated Diagnosis Comments XR HIP LEFT 2 OR 3 VIEWS Routine 03/31/2025 1:30 PM EST Hip pain, left HEMOGLOBIN A1C Routine 09/04/2023 11:59 AM EDT Hip pain, left Primary localized osteoarthritis of left hip Type 2 diabetes mellitus without complication, unspecified whether penitentiary insulin use ([facility]) from Last 3 Months or Most Recently Relevant to Health Maintenance Results * 1-Year Post-Op: XR Hip (AP [...] No acute fractures or dislocations. Procedure Note Ellie Rodriguez, Roney Madrid MD - 03/31/2025 CLINICAL INDICATION: Post-Op TECHNIQUE: [...] by Roney Rodriguez MD on 52:32 PM us Griffin Bustillos MD IMG XR PROCEDURES Final R esult * (ABNORMAL) Hemoglobin A1c (09/04/2023 11:59 AM EDT) Hemoglobin A1c 6.0(H) <5.7 % 09/04/2023 5:33 PM EDT LAB Blood Venous blood specimen / Unknown [...] Adults <6.0% Children and Adolescents <7.5% Source: [place] [employer]. Standards of medical care in diabetes,2017. Diabetes Care.2017:40 (suppl 1):S1-S135. HbA1c assay performed by an ion-exchange chromatography method that is certified traceable to the DCCT. Griffin Bustillos MD LAB BLOOD ORDERABLES Marielle solitario Result LAB [address] [place] [phone] from Last 3 Months or Most Recently Relevant to Health Maintenance [place] [address] [facility] Member Subscriber Plan / Payer (Ef fective 2024-Present) Name:Tasneem Perales Relation to Subscriber:Self Name:Tasneem Perales Payer ID:[id number] (NAIC) Group ID:[id number] Type:Not on file Address: [address] [place] [phone] Advance Directives * Full Code (Latest Code Status on File) Date Activated Date Inactivated Comments 09/19/2023 9:05 AM 09/25/2023 5:08 PM Question Answer Comments Patient has decision-making capacity? Yes Care Teams Executive Vice President And Chief Financial Officer Relationship Specialty Start Date End Date Betsy Smith MD [address] [facility] [address] [place] [address] PCP - General 06/13/23
--- OUTSIDE RECORDS SUMMARY | 2025-04-13 22:56 | XMS_ITS | Encounter Summary ---
Author Organization [facility] yste Address [address] [place] [address] Care Team Providers Care Agricultural Economics Teacher Name Role Phone Betsy Smith MD Primary Care Provider [phone] Reason for Visit * Reason Onset Date Comments Results 03/09/2025 BMP, A1C Hyponatremia 03/09/2025 Encounter Details Date Type Department Care Team (Late st Contact Info) Description 03/09/2025 Telephone [facility] [address] [place] [phone] [place] [address] [place] [address] Results (BMP, A1C); Hyponatremia Social History Tobacco Use Types Packs/Day [...] Notes * Telephone Encounter - Amy Cortez CMA - 03/11/2025 1:50 PM EST Let pt know of message. Pt verbalized understanding. * Telephone Encounter - Betsy Smith MD - 03/11/2025 11:10 AM EST The sports water will not help her sodium level. Regular water is the best fluid for the body. * Telephone Encounter - Nette Palacio MA - 03/11/2025 10:41 AM EST Patient returned call, she is wondering if she can go back to drinking the sports water she was drinking before to help her kidney function or if Dr Smith would like her to go back to drinking regular water? Patient states she will be hard to reach today its okay to leave her a voicemail. * Telephone Encounter - Nette Palacio MA - 03/11/2025 9:33 AM EST HUB TO RELAY LVM for patient to return call, Per Dr Smith The liquid IV is not helping so she can go back to regular water intake. OK to increase her sodium intake a little * Telephone Encounter - Betsy Smith MD - 03/10/2025 6:49 PM EST The liquid IV is not helping so she can go back to regular water intake. OK to increase her sodium intake a little. * Telephone Encounter - Christy Lema - 03/10/2025 2:51 PM EST Pt returned call. Would like to know if PCP would like her to stay on the licquid iv or if she can go back to drinking what she was before. Pt stated that current regime, with the licquid iv is making her sick at her stomach. Please advise. * Telephone Encounter - Betsy Smith MD - 03/09/2025 4:03 PM EST ----- Message from Maye De Anda sent at 03/09/2025 3:14 PM EST ----- Regarding: FW: test results - BMP, A1c Patient advised of results, patient states she had been drinking 3 simmons and 3 liquid iv but has not done so this week, states she just cannot do it makes her sick at her stomach ----- Message ----- From: Betsy Smith MD Sent: 03/08/2025 6:15 PM EST To: [facility] Subject: test results - BMP, A1c BG control worsened but acceptable with A1C 6.2 (goal < 6.5, was 5.7 last time) Sodium level unchanged, remains low. She was supposed to be drinking at least 64 oz water per day, 1/2 regular water and 1/2 Liquid IV. Has she been doing that? documented in this encounter Plan of Treatment Upcoming Encounters Date Type Department Care Team (Late st Contact Info) Description 06/26/2025 3:00 PM EST Office Visit [facility] [address] [place] [phone] Betsy Smith MD [address] [place] [address] documented as of this encounter Visit Diagnoses Not on filedocumented in this encounter Additional Health Concerns Assessment Noted Time PHQ-2 Depression Total Score: 2 08/31/19 24 12:00 PM EDT documented as of this encounter Care Teams Agricultural Economics Teacher Relationship Specialty Start Date End Date Betsy Smith MD [address] [place] [address] PCP - General 02/08/15 documented as of this encounter
--- OUTSIDE RECORDS SUMMARY | 2025-04-13 22:56 | XMS_ITS | Clinical Summary ---
[facility] Address [address] [place] [address] Care Team Providers Care Director Agricultural Services Name Role Phone Betsy Smith MD Primary Care Provider [phone] Allergies Active Allergy Reactions Criticality Noted Date [...] (One) Time Per Week. 13 tablet 3 Active FIBER COMPLETE PO Take by mouth Daily. Fiber gummies Active clobetasol propionate (TEMOVATE) 0.05 % creamIndications:Rash Apply to affected areas in thin layer BID 30 g Active oxybutynin XL (DITROPAN-XL) 10 MG 24 hr tabletIndications:Urina ry Incontinence Take 1 tablet by mouth Daily. Indications: Urinary Incontinence 90 tablet 2 Active atorvastatin (LIPITOR) 20 MG tabletIndications:Pure hypercholesterolemia Take 1 tablet by mouth Every Night. Active vitamin B-12 (CYANOCOBALAMIN) 1000 MCG tabletIndications:B12 deficiency Take 1 tablet by mouth Daily. Active irbesartan (AVAPRO) 75 MG tabletIndications:Essen tial hypertension Take 1 tablet by mouth Daily. 90 tablet 1 025 Active Active Problems Problem Noted Date Diagnosed Date Closed fracture of nasal bone with routine heali ng 12/24/2024 Overview (12/24/2024): 09/11/24 CT head ([facility]): s/p fall; depressed fx of L nasal bones/frontal maxilla, no hemorrhage Recurrent falls 12/12/2024 Overview (03/13/2025): 03/12/25 see 03/09/25 PT orders from [facility] for imbalance, falls; 02/19/25 see [facility] PT orders from 02/11/25 for balance, gait, strength; 01/09/25 see PT from [facility] for recurrent falls Assessment & Plan [...] and fall risk; patient will pursue at [facility] (son is going to rehab there 3x/wk after lung transplant/heart surgery) Allergic conjunctivitis of both eyes 06/09/2024 Overview (06/09/2024): Better with Zaditor Assessment & Plan (06/09/2024 4:29 PM EST): Success with zaditor eye drops Normocytic anemia 09/05/2023 Overview (10/08/2023): 10/05/23 [facility] discharge s/p L THR - s/p 2u [...] prevention; 07/13/23 see std wheelchair order from [facility] [employer] Equipment Assessment & Plan (06/27/2023 10:33 PM [...] - check MRI left hip; 03/16/23 see [facility] PT order dated 03/16/23; 03/08/23 CT [...] swelling, 20 minutes 3x/day; has PT 2x/week ([facility]) but advised patient should be doing [...] she leaves rehab so we can schedule [facility] hospital follow-up visit as most likely [...] BID-TID prn as needed Hyponatremia 06/20/2017 Overview (03/08/2025): 03/02/25 unchanged Na 127; 02/09/25 Na 128; rec 1/2 water and 1/2 Liquid IV; 12/03/24 worsened Na 129 (was 133 pm 09/06/24); 09/11/24 Na 126 ([facility] ER, s/p fall); 07/10/24 persistent Na 126; cont 1.5L/day, liberalize Na, repeat BMP 1 wk; 06/30/24 Na 128; 06/16/24 recurrent Na 125; sugg of SIADH (s-osm 266, u-osm 406); 04/09/24 improved Na 135; 01/18/24 improved/nl Na 138; 10/05/23 [facility] discharge s/p L THR; improved on 1.5L fluid restriction; 09/25/23 persistent postop, improved to 126; cont 1.5L fluid restriction; 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 this admit with mild hypovolemic aspect in setting of periop blood loss s/p transfusions 09/12/23 worsened Na 127; needs BMP, serum/urine osm (escribed); 09/04/23 Na 133; 06/16/23 [facility] admission Na 123; 130 by discharge; 06/06/23 persistent Na 128; 04/27/22 resolved Na 136 Assessment & Plan (02/13/2025 9:32 PM EDT): Persistent hyponatremia Na 128; it looks like her clear [employer] contains no sodium; advised 64 oz [...] kidney disease), stage III 02/29/20 16 Overview (03/08/2025): 03/02/25 worsened Cr 1.0, GFR 52; 02/09/25 back to nl Cr 0.9, GFR [...] daily water intake - advising changing Body [employer] to 1/2 water and 1/2 Liquid [...] order given to patient to get at [facility] Assessment & Plan (03/28/2024 12:53 [...] Betsy Smith MD as PCP - Ed rAagon MD as Consulting Physician (Ophthalmology) Julito Shen [...] Smith MD as PCP - General Ed uDque MD as Consulting Physician (Ophthalmology) Julito Shen [...] 09/12; mammo to be updated (08/27/15) at [facility]; no further Paps unelss abnlities; DEXA [...] 09/12; mammogram 2015 - will request from [facility]; no further Paps unless abnlities; DEXA [...] omeprazole 40mg QD with improved efficacy 10/05/23 [facility] discharge s/p L THR; on pantoprazole 40mg [...] long-term current use of insulin 02/18/2016 Overview (03/08/2025): 03/02/25 A1C 6.2; 12/03/24 A1C 5.7; 09/08/24 A1C 6.2; 05/15/24 A1C 6.4; 03/26/24 ophtho/Dr. Duque - no DMR, dry mac degen OU; 11/12/23 A1C 5.5, d/c met ER 500mg QD; 10/18/23 only on met ER 500mg QD; 10/05/23 [facility] discharge s/p L THR - on met ER 500mg QD; 09.04.23 A1C 6.0; 06/28/23 A1C 6.3; 06/17/23 D/C meds - on amita/met ER QD (prev amita 30mg QD and met XR 500mg 2 QD; 06/16/23 A1C 6.0 ([facility]); 06/06/23 A1C 5.9; 06/05/23 A1C 6.4; 03/21/23 ophtho/Dr. uDque - no DMR, dry mac degen OU; 03/08/22 ophtho/Dr. Duque - no DMR, has dry mac degen OU; 03/14/21 stable A1C 6.0; 03/02/21 yong/Dr. Duque - no DM retinopathy; 09/09/20 A1C 6.0; 04/14/20 A1C 6.2; 03/25/20 A1C 6.05; 03/05/20 stable A1C 6.2, on amita 30mg QD met XR 750mg 2 QD; 07/16/19 ophlillio/Dr. Duque - no DM retinopathy; 06/27/19 improved A1C 6.0; 03/05/19 stable bord A1C 6.3 (was 5. In 09/22, 5.7 in 01/22); on amita met 15/850 BID; 11/15/16 ophtho/Dr. Duque - no DM retinopathy Assessment & [...] updated DM eye exam upcoming at [facility] - will do this summer - request [...] 10/18/23 BP 132/68; no BP meds; 10/05/23 [facility] discharge s/p L THR - irbesartan still [...] if abnl) - wants RX sent to ; ADDENDUM: renal function back to baseline with [...] Encounters Date Type Department Care Team Description 03/09/2025 Telephone [facility] [address] [place] [address] Betsy Smith MD Results (BMP, A1C); Hyponatremia 02/13/2025 1:45 PM EDT Office Visit [facility] [address] [place] [address] Betsy Smith MD Hypertension (Primary Dx); Hyponatremia; Stage 3a chronic kidney disease; Type 2 diabetes mellitus with stage 3a chronic kidney disease, without long-term current use of insulin; Need for COVID-19 vaccine; Need for influenza vaccination; Hyperlipidemia; B12 deficiency 02/13/2025 Travel from Last 3 Months Immunizations Immunization [...] 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 [...] [facility] [address] [place] [phone] [place] [address] [place] [address] Health Maintenance Due Date Last Done Comments COLON CANCER SCREENING 5 SAMUELA R SIGMOIDOSCOPY 1982 [address] COLONOGRAPHY 1982 FECAL [...] Additional history exists HEMOGLOBIN A1C 06/05/2025 12/03/2024, 11/06, 09/08/2024, Additional history exists ANNUAL WELLNESS VISIT 06/09/2025 [...] Date/Time Associated Diagnosis Comments SCANNED - LABS 03/02/2025 SCANNED - LABS 02/09/2025 POCT GLYCOSYLATED HEMOGLOBIN (HGB A1C) Routine 09/08/2024 [...] to Health Maintenance Results * LABS SCANNED (03/02/2025) Only the most recent of2 resultswithin the time period is included. us Betsy Smith MD LAB BLOOD ORDERABLES Final Resul t * (ABNORMAL) POC Glycosylated Hemoglobin (Hb A1C) (09/08/2024 3:47 PM EDT) Pathologist [facility] Hemoglobin A1C 6.2(A) 4.5 - 5.7 % [facility] Lot Number [id number] [facility] Expiration Date 05/23/2026 [facility] Blood 09/08/2024 3:47 PM EDT us Betsy Smith MD POINT OF CARE TEST ORDERABLES Fi nal Result [facility]
[address] [place] [address], * Microalbumin / Creatinine Urine Ratio - Urine, Clean Catch (05/15/2024 10:34 AM EST) Microalbumin/C reatinine Ratio 11.3 0.0 - 29.0 mg/g 05/15/2024 11:33 PM EST [facility] Creatinine, Urine 141.8 mg/dL 05/15/2024 11:33 PM EST [facility] Microalbumin, Urine 1.6 mg/dL 05/15/2024 11:33 PM EST [facility] Urine Urine specimen obtained by clean catch procedure / Unknown Collection / Unknown 05/15/2024 10:34 AM EST 05/15/2024 10:34 AM EST Betsy Smith MD URINE ORDERABLES Final Result [facility]
[address] [place] [address], * (ABNORMAL) Lipid Panel (05/15/2024 10:34 AM EST) Total Cholesterol 138 0 - 200 mg/dL 05/15/2024 2:51 PM EST [facility] Triglycerides 39 0 - 150 mg/dL 05/15/2024 2:51 PM EST [facility] HDL Cholesterol 64(H) 40 - 60 mg/dL 05/15/2024 2:51 PM EST [facility] LDL Cholesterol 64 0 - 100 mg/dL 05/15/2024 2:51 PM EST [facility] VLDL Cholesterol 10 5 - 40 mg/dL 05/15/2024 2:51 PM EST [facility] LDL/HDL Ratio 1.03 05/15/2024 2:51 PM EST [facility] Blood Venipuncture / Unknown 05/15/2024 10:34 AM EST 05/15/2024 10:34 AM EST [facility] - 05/15/2024 2:51 PM EST [...] MD LAB BLOOD ORDERABLES Final Resul t [facility]
[address] [place] [address], * EYE EXAM SCANNED (03/26/2024) Anatomical Region [...] fall-prevention measurements. The National Osteoporosis Foundation recommends (http://www.nof.org/hcp/practice/jwsntlbz-aly-sqpjekkv-guidelines/clinicians-hussein de) that FDA-approved medical therapies be considered [...] the left hip with 95% confidence is 0.843447 gm/cm2 at the hip and 0.776800 g/cm2 at the lumbar spine. Electronically Signed: Colt Leavitt 11/20/2022 2:54 PM EDT Workstation ID: [id number] Narrative 11/20/2022 2:54 PM EDT DUAL-ENERGY X-RAY [...] normal patients. According to criteria established by the[facility], patients [...] exercises and fall-prevention measurements. The NationalOsteoporosis Foundation recommends(http://www.nof.org/hcp/practice/rkjvqigs-xpf-bwdrcgdn-guidelines/clin ician s-guide) that FDA-approved medical therapies be [...] at the left hipwith 95% confidence is 0.039451 gm/cm2 at the hip and 0.382742 g/cm2 atthe lumbar spine. Electronically Signed: Colt Leavitt 11/20/2022 2:54 PM EDT Workstation ID: [id number] Betsy Smith MD IM DXA ORDERABLES Final Result * SCANNED - [facility]OGUARD (03/25/2018) Betsy Smith MD LAB BLOOD ORDERABLES Final Resul t * COLONOSCOPY (09/05/2007) [facility] Colonoscopy colonoscopy 09/11 , GI - Dr. Shen (previously Dr. Egan) Michael Jacobo MD HEALTH MAINTENANCE Final Result from Last 3 Months or Most Recently Relevant to Health Maintenance Insurance [employer] MEDICARE A & B Advance Directives Documents on File Type Date Recorded Patient Trailer Rental Clerk Expl anation [place]OST ([place]) - SCAN 03/22/2021 12:49 PM MOST FORM, [facility], 03/21/2021 Healthcare Agents on File Name Relationship Healthcare Agent Relationshi p Communication Nory Perales Son Health Care Surrogate Care Teams Director Agricultural Services Relationship Specialty Start Date End Date Betsy Smith MD [address] [place] [id number] PCP - General 02/08/15
--- OUTSIDE RECORDS SUMMARY | 2025-04-13 22:56 | XMS_ITS | Encounter Summary ---
Author Organization [facility] Address [address] [place] [address] Care Team Providers Care Physical Chemistry Teacher Name Role Phone Betsy Smith MD Primary Care Provider [phone] Encounter Details Date Type Department Care Team (Late Contact Info) Description 09/30/2013 External CPT II MARKETING INFORMATION COORDINATOR - [facility] Social History Tobacco Use [...] Description 06/26/2025 3:00 PM EST Office Visit [facility] [address] [place] [phone] Betsy Smith MD [address] [place] [address] documented as of this encounter Visit Diagnoses Not on filedocumented in this encounter Care Teams Physical Chemistry Teacher Relationship Specialty Start Date End Date Betsy Smith MD [address] [place] [address] PCP - General 02/08/15 documented as of this encounter
--- OUTSIDE RECORDS SUMMARY | 2025-04-13 22:56 | XMS_ITS | Encounter Summary ---
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 Not on fi le documented as of this encounter Plan of Treatment Upcoming Encounters Date Type Department Care Team ( Contact Info) Description 06/26/2025 3:00 PM EST Office Visit [facility] [address] [place] [address] Betsy Smith MD [address] [place] [address] documented as of this encounter Visit Diagnoses Not on filedocumented in this encounter Additional Health Concerns Assessment Noted Time PHQ-2 Depression Total Score: 2 08/31/19 24 12:00 PM EDT documented as of this encounter Care Teams Central Supply Supervisor Relationship Specialty Start Date End Date Betsy Smith MD [address] [place] [address] PCP - General 02/08/15 documented as of this encounter
--- OUTSIDE RECORDS SUMMARY | 2025-04-13 22:56 | XMS_ITS | Data Portability ---
Author Organization [facility]OR [facility] Address [address] [facility] [address] [place] [address] Assessment No assessment recorded. Plan of Treatment [...] By Organization Details Last Modified Time 01/21/2019 [id number] Spent 30 total minutes with the patient today. Greater than 50% of this time was spent counseling/coordi nation of care as documented in my assessment and plan above. [email or web address] Not available 01/21/2019 09:07:30 Reason for Referral None Reported. Procedures Surgical History Date Name Laterality Status Provider Name and Address Organization Details Recorded Time Back Surgery completed Diane Ena [facility] 01/21/2019 08:45:10 Knee arthroscopy/s urgery completed Diane Ena [facility] 01/21/2019 08:45:17 Removal of tonsils completed Diane Ena [facility] 01/21/2019 08:45:30 Imaging Results None recorded. Procedure [...] Updated DateTime 01/21/2019 165.1 cm 27.6 kg/m2 66574.33 g 142/72 mm[Hg] Diane Sutherland [facility] 01/21/2019 08:42:20 Social History None recorded. Functional [...] ICD10 Code Diagnosis IMO Codes Diagnosis Note [id number] DONNA HENRY [facility] [address] [facility] [place] [address] 01/21/2019 08:19:33 01/23/2019 14:45:01 Spinal stenosis of lumbar region [id number] M48.061 83-year-ol d white female status post what sounds like a discectomy 50 years ago at [facility] with a past medical history significan t for diabetes, hypertensi on, and chronic constipati on here today as a new patient referral from Dr. Pope. She had about 1 month history of low back and left leg pain after bearing down to have a bowel movement, but is 100% better with gabapentin and physical therapy. Her lumbar MRI from [facility] from 01/03/19 on a CD was reviewed [...] Russo Member ID Guarantor Name 01/21/2019 2 [place] JOSIAH CASTELLON OF [employer] [address] [id number] Tasneem McIlvain 03/31/2020 1 MEDICARE-[place] (MEDICARE) Tasneem M McIlvain [id number] Tasneem McIlvain Notes Date Note Type Note Provider Name and Address Organization Details Recorded Time 01/21/2019 text/html ROS as noted in the HPI 83-year-old white female status post what sounds like a discectomy 50 years ago at [facility] with a past medical history significant for [...] 01/03/19. VICTOR HUGO BEAUCHAMP PA-C [address] [place], [address], [facility] 01/21/2019 09:12:50 OBGyn Episode No OBEpisode recorded.
--- OUTSIDE RECORDS SUMMARY | 2025-04-13 22:56 | XMS_ITS | Encounter Summary ---
Author Organization [facility] Address [address] [place] [address] Care Team Providers Care Mechanical Engineering Intern Name Role Phone Betsy Smith MD Primary Care Provider [phone] Reason for Visit * Reason Onset Date Comments Med Refill 03/26/2020 Encounter Details Date Type Department Care Team (Late st Contact Info) Description 03/26/2020 Refill [facility] [address] [place] [address] [place] [address] [place] [id number] Hyperlipidemia Social History Tobacco Use Types Packs/Day [...] 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 ezetimibe (Zetia) 10 MG tablet 90 tablet 3 Sig: Take 1 tablet by mouth Daily. When do you need the refill by: JOSE What details did the patient provide when requesting the medication: PATIENT HAS REQUESTED A NEW PRESCRIPTION FOR ABOVE MEDICATION PATIENT STATES DOCTOR NEEDS TO CALL [facility] AT [phone] Does the patient have less than a 3 day supply: [x] Yes [] No What is the patient's preferred pharmacy: [facility] [place] - [id number] AT [address] TO [facility] - [phone] [facility] [phone] FX documented in this encounter Plan of Treatment Upcoming Encounters Date Type Department Care Team (Late st Contact Info) Description 06/26/2025 3:00 PM EST Office Visit [facility] [address] [place] [phone] Betsy Smith MD [address] [place] [address] documented as of this encounter Visit Diagnoses Diagnosis Hyperlipidemia Pure hypercholesterolemia documented in this encounter Care Teams Mechanical Engineering Intern Relationship Specialty Start Date End Date Betsy Smith MD [address] [place] [address] PCP - General 02/08/15 documented as of this encounter
--- OUTSIDE RECORDS SUMMARY | 2025-04-13 22:56 | XMS_ITS | Encounter Summary ---
Author Organization [facility] Address [address] [place] [address] Care Team Providers Care Assistant Chief Train Dispatcher Name Role Phone Betsy Smith MD Primary Care Provider [phone] Encounter Details Date Type Department Care Team ([facility] Contact Info) Description 05/25/2023 Orders Only External Location [address] [place] [address] Provider, External Social History Tobacco Use Types [...] on filedocumented in this encounter Care Teams Assistant Chief Train Dispatcher Relationship Specialty Start Date End Date Besty Smith MD [address] [facility] [address] [place] [address] PCP - General 06/13/23 documented as of this encounter
[2025-04-13] MEDS: LIDOCAINE 2% UROJET 10ML TP (23:18)
[2025-04-13] MEDS: COCAINE 4% TOPICAL SOLN 4ML BOTTLE 1 ML TP (23:19)
[2025-04-14 00:33] VITALS: BP 148/87; PULSE 68; RESP 22; TEMP 36.8; O2SAT 100
== END 2025-04-14 00:34 | disposition home or self-care (01) ==
PROVIDERS: Emergency Provider Student in an Organized Health Care Education/Training Program; PCP Internal Medicine
DX: S01.81XA Laceration without foreign body of other part of head, initial encounter (principal); W18.39XA Other fall on same level, initial encounter
CPT/HCPCS: 70450; 70486; 72125; 99283; 99285; J0169